=== PATIENT | male | born 1955 | race Caucasian/White ===

== ENCOUNTER 2024-06-11 15:35 | Outpatient (REF) | payer MEDICARE, SELFPAY ==
[2024-06-11 16:05] LABS: Basophils Percent Auto 0.3 % (0.2-2.0); Eosinophils Absolute Auto 0.4 10^3/uL (0.0-0.7); Eosinophils Percent Auto 3.4 % (0.9-7.0); Hemoglobin 9.8 g/dL (14.0-18.0); Immature Granulocytes Abs Auto 0.12 10^3/uL (0.00-0.03); Lymphocytes Absolute Auto 4.5 10^3/uL (1.2-3.8); Lymphocytes Percent Auto 38.7 % (20.5-60.0); Mean Corpuscular HGB Conc 31.6 g/dL (29.9-35.2); Mean Corpuscular Hemoglobin 33.6 pg (25.9-34.0); Mean Corpuscular Volume 106.2 fL (80.0-94.0); Mean Platelet Volume 8.9 fL (9.5-13.5); Monocytes Absolute Auto 1.4 10^3/uL (0.3-0.8); Monocytes Percent Auto 11.6 % (1.7-12.0); Neutrophils Absolute Auto 5.3 10^3/uL (1.4-6.5); Platelet Count 373 10^3/uL (150-450); Red Blood Count 2.92 10^6/uL (4.70-6.10); Red Cell Distribution Width 16.6 % (11.0-15.0); White Blood Count 11.7 10^3/uL (4.0-11.0)
[2024-06-11 16:12] LABS: Anion Gap 7.5; BUN Creatinine Ratio 16.3; Calcium 8.1 mg/dL (8.5-10.1); Carbon Dioxide 38.6 mmol/L (21.0-32.0); Chloride 97 mmol/L (98-107); Estimated GFR (African America >60 (>=60 mL/min/1.73m^2); Estimated GFR (Non-African Ame >60 (>=60 mL/min/1.73m^2); Glucose 82 mg/dL (74-106); Potassium 4.1 mmol/L (3.5-5.1); Sodium 139 mmol/L (136-145)
== END 2024-06-11 15:36 | disposition home or self-care (01) ==
LOC: LAB 15:35
PROVIDERS: Family Provider Family Medicine; PCP Family Medicine; Visit Provider Family Medicine
DX: D50.9 Iron deficiency anemia, unspecified (principal)
CPT/HCPCS: 36415; 80048; 85025

== ENCOUNTER 2024-06-12 10:11 | Emergency (ER) | payer MEDICARE, SELFPAY ==
[2024-06-12] VITALS (18 sets, daily range): BP systolic 98–105; BP diastolic 51–68; PULSE 75–89; TEMP 36.7; O2SAT 88–100
--- NOTE | 2024-06-12 10:13 | CT_ITS ---
The [address] [address] Patient Name: CRISTINE BURTON MRN: [id number] date: 1955 Sex: M Assigned Patient Location: ER Current Patient Location: ED.MAIN Accession/Order Number: [id number] Exam Date: 06/12/2024 10:20 Report Date: 06/12/2024 10:49 At the request of: MARIANA CAMPBELL Procedure: CT stroke head/brain wo con EXAM: CT stroke head/brain wo con HISTORY: ams COMPARISON: None. TECHNIQUE: Axial noncontrast CT imaging of the head was performed with coronal and sagittal reformats. FINDINGS: Calvarium/skull base: No evidence of acute fracture or destructive lesion. Complete opacification of the bilateral mastoid and subtotal opacification of the right middle ear. Bilateral [place] ocular lens replacements. Paranasal sinuses: Diffuse mild mucosal thickening of the paranasal sinuses. Brain: There is parenchymal hemorrhage involving the lateral right frontal lobe extending into the adjacent ceja radiata white matter with the parenchymal component of hemorrhage measuring approximately 2.4 x 2.5 x 2.5 cm with associated subarachnoid extension. There is mild surrounding edema and local mass effect. No midline shift at this time. No hydrocephalus. CT/CT stroke head/brain wo con IMPRESSION: 1. Lateral right frontal lobe parenchymal hemorrhage with associated subarachnoid extension and mild surrounding edema and local mass effect without midline shift at this time. 2. Nonspecific mastoid and middle ear effusions described above. Notification of Results Provider/Agent notified: Dr. Campbell Time/Date notified: 06/12/2024 8:48 AM [facility] Notifying Staff: Dr. Stephenson Electronically authenticated by: SHIRLEY STEPHENSON Date: 06/12/2024 10:49
--- NOTE | 2024-06-12 10:15 | XR_ITS ---
The [address] [address] Patient Name: CRISTINE BURTON MRN: [id number] date: 1955 Sex: M Assigned Patient Location: ED.MAIN Current Patient Location: ER Accession/Order Number: [id number] Exam Date: 06/12/2024 10:53 Report Date: 06/12/2024 11:32 At the request of: MARIANA CAMPBELL Procedure: XR chest 1V EXAM: XR chest 1V HISTORY: ams COMPARISON: None. TECHNIQUE: Chest one view portable upright FINDINGS: Low lung volumes with small bilateral effusions. Bibasilar atelectasis. There is cardiomegaly and probable mild vascular congestion but no shannen pulmonary edema. No consolidation or pneumothorax. XR/XR chest 1V IMPRESSION: 1. Expiratory chest with tiny bilateral effusions and vascular crowding. 2. Cardiomegaly with mild vascular congestion. No shannen pulmonary edema. Electronically authenticated by: KENNY RICH Date: 06/12/2024 11:32
--- NOTE | 2024-06-12 10:15 | ECG_ITS ---
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
[2024-06-12 10:25] LABS: Glucometer 127 mg/dL (74-106)
--- NOTE | 2024-06-12 10:39 | ED_ITS ---
HPI HPI - General Adult General Chief complaint: Weakness Stated complaint: GENERAL WEAKNESS Time Seen by Provider: 06/12/24 10:13 Source: other Source information: Nurse Omaira at the [facility] Mode of arrival: ambulance History of Present Illness HPI narrative: The patient is 68 years old male with history of A-fib as well as recent history of diagnosis of UTI and sepsis and respiratory failure, the patient was admitted to [facility] after he was recently diagnosed with UTI and respiratory failure, patient was admitted there on the plan to be discharged today, but over the last few days apparently sent the patient has been feeling sick they were doing a workup for him for possible sepsis, According to the facility that is taking care of him the patient deteriorated today and they brought him over to us. He was taking Cipro for UTI. The patient upon presentation is nonverbal he is opening his eyes looking mostly to the right side he would nod yes or no and move his right hand to express his answer by squeezing my hand, but he is not able to speak, sometimes he will make noises mostly comes as moaning . The patient upon arrival his NIH score was 21 When asking the patient and simplifying the history the patient agree that yesterday he went to sleep he did not have any of this, he was feeling weak and tired and sick but not like this, he woke up this morning and he does not know what time exactly with these symptoms, The patient also nodded that he is not on anticoagulant because he have multiple falls Related Data Home Medications ?Medication ?Instructions ?Recorded ?Confirmed albuterol sulfate 2.5 mg/3 mL mg 06/12/24 (0.083 %) solution for nebulization albuterol sulfate 90 mcg/actuation inhalation 06/12/24 aerosol inhaler aspirin 81 mg capsule 81 mg PO DAILY 06/12/24 06/12/24 bumetanide 2 mg tablet mg 06/12/24 diltiazem HCl 180 mg mg PO 06/12/24 capsule,extended release 24 hr divalproex 250 mg tablet,delayed mg PO 06/12/24 release duloxetine 30 mg capsule,delayed mg PO 06/12/24 release fluticasone 500 mcg-salmeterol 50 inhalation 06/12/24 mcg/dose blistr powdr for inhalation insulin lispro 100 unit/mL subcut 06/12/24 subcutaneous pen magnesium 200 mg tablet 400 mg PO DAILY 06/12/24 06/12/24 metoprolol succinate 25 mg mg PO 06/12/24 tablet,extended release 24 hr montelukast 10 mg tablet mg 06/12/24 nystatin 100,000 unit/mL oral 06/12/24 suspension potassium chloride 10 mEq meq PO 06/12/24 tablet,extended release(part/cryst) quetiapine 25 mg tablet mg 06/12/24 Allergies Allergy/AdvReac Type Severity Reaction Status Date / Time No Known Drug Allergies Allergy Verified 06/12/24 10:25 Opioid HPI Opioid Management Most Recent Opioid Data: No Data to Display Exam Narrative Exam Narrative: Nurses notes and vital signs reviewed and patient is not hypoxic. General: Well-appearing and in no apparent distress. Skin: Skin examination showed that the patient have multiple rash mostly papular like that is red and scattered all over the upper chest, does not seem to be acute Head: Normocephalic, atraumatic. Neck: Supple, non-tender. Eye: Pupils are equal, round and EOMI. No scleral icterus. Ears, Nose, Mouth, and Throat: TM are clear, no nasal mucosal hypertrophy. Oral mucosa is moist, no posterior oropharynx erythema, uvula is mid-line Cardiovascular: Regular Rate and Rhythm without murmur, gallop or rub. Respiratory: Bilateral distant breathing sound expiratory wheezes Back: No midline thoracic or lumbar vertebral tenderness. No CVA tenderness Musculoskeletal: normal ROM, no calf or popliteal tenderness, there is a erythema noted on the medial aspect of both legs could be secondary to irritation GI: Abdomen is soft, non-distended. Normal bowel sounds. There is a bruise I think for mostly subcutaneous injection No masses appreciated. No tenderness to palpation. No rebound, guarding, or rigidity noted. Neurological: The patient is opening his eyes when asked to speak the patient try and no words comes except for incomprehensive noises . The patient and I score is 21 with the fact that he cannot move his left upper extremity completely and his right upper extremity he can move it normally, also the left lower extremity can lifted with a drift to the bed while the right he can hold up. The patient have a obvious mild deviation to the right side when smiling, with weakness even when trying to close his eyes, the patient gazes only to the right side even when trying to look to the left he cannot except when turning his head, Constitutional Vital Signs, click to edit/add: Last Vital Signs Temp 98.0 F 06/12/24 10:58 Pulse 86 06/12/24 12:05 Resp 19 06/12/24 12:05 BP 105/51 06/12/24 12:05 Pulse Ox 97 06/12/24 11:40 O2 Del Method Nasal Cannula 06/12/24 11:16 O2 Flow Rate 2 06/12/24 11:31 Course Vital Signs Vital signs: Vital Signs Pulse Rate 84 06/12/24 10:15 Respiratory Rate 22 H 06/12/24 10:15 Blood Pressure 101/68 06/12/24 10:15 Pulse Oximetry 88 L 06/12/24 10:15 Oxygen Delivery Method Room Air 06/12/24 10:15 Temperature 98.0 F 06/12/24 10:58 Pulse Rate 86 06/12/24 12:05 Respiratory Rate 19 06/12/24 12:05 Blood Pressure 105/51 06/12/24 12:05 Pulse Oximetry 97 06/12/24 11:40 Oxygen Delivery Method Nasal Cannula 06/12/24 11:16 Oxygen Delivery Flow Rate 2 06/12/24 11:31 Medical Decision Making [facility] Narrative Medical decision making narrative: EKG showing sinus rhythm with a heart rate of [address] elevation or depression Upon arrival the patient blood sugar was 82 The patient is an obvious significant neurological weakness with NIHHS is 21 I reviewed the patient medication he does not take any anticoagulation he only take [address] head shows a subarachnoid hemorrhage, patient case was discussed with the neurologist and she accepted pt to be admitted to ICU in [facility], working on transfer Patient blood pressure is 100/60 The patient is a DNR CCA status . The patient presented to the bedside she requested initially the patient to be transferred to [facility] which I spoke with Dr. Alonso in neurology and Dr. Lechuga in neurosurgery service, who requested the patient to be transferred as he think the patient needs more higher care The patient daughter was on the phone and she works as a RN and I did speak with him about the possibility of needing surgery and they mentioned that at that time the patient can his code changes for surgery The patient CT angio head and neck ordered and pending Blood pressure is appropriate The patient ABGs on the nasal cannula shows no hypoxemia, the patient is awake he is following commands appropriately, and his Mike Coma Scale is 15 at the moment on nasal cannula and he is not having any difficulty breathing He did have a breathing treatment 1 time because he had some breathing when he arrived which is mostly secondary to COPD Patient will be transferred to [facility] awaiting transfer Lab Data Labs: Lab Results 06/12/24 06/12/24 06/12/24 Range/Units 10:17 10:30 10:53 WBC 9.6 (4.0-11.0) 10^3/uL RBC 2.81 L (4.70-6.10) 10^6/uL Hgb 9.4 L (14.0-18.0) g/dL Hct 28.7 L (42.0-54.0) % MCV 102.1 H (80.0-94.0) fL MCH 33.5 (25.9-34.0) pg MCHC 32.8 (29.9-35.2) g/dL RDW 16.4 H (11.0-15.0) % Plt Count 360 (150-450) 10^3/uL MPV 8.8 L (9.5-13.5) fL Neut % (Auto) 50.5 (43.0-75.0) % Lymph % (Auto) 34.1 (20.5-60.0) % Colbert % (Auto) 9.7 (1.7-12.0) % Eos % (Auto) 4.5 (0.9-7.0) % Baso % (Auto) 0.3 (0.2-2.0) % Neut # (Auto) 4.8 (1.4-6.5) 10^3/uL Lymph # (Auto) 3.3 (1.2-3.8) 10^3/uL Colbert # (Auto) 0.9 H (0.3-0.8) 10^3/uL Eos # (Auto) 0.4 (0.0-0.7) 10^3/uL Baso # (Auto) 0.0 (0.0-0.1) 10^3/uL Abs Immat Gran (auto) 0.09 H (0.00-0.03) 10^3/uL Imm/Tot Granulo (auto) 0.9 H (0.0-0.5) % PT 10.9 (9.0-11.6) sec INR 1.03 Puncture Site ABG pH (7.350-7.450) ABG pCO2 (35.0-45.0) mmHg ABG pO2 (80.0-100.0) mmHg ABG HCO3 (22.0-26.0) mmol/L ABG O2 Saturation % ABG Base Excess (-2.0-2.0) mmol/L Tae Test (POSITIVE) O2 Liters/Min Sodium 139 (136-145) mmol/L Potassium 3.4 L (3.5-5.1) mmol/L Chloride 97 L (98-107) mmol/L Carbon Dioxide 36.8 H (21.0-32.0) mmol/L Anion Gap 8.6 BUN 21.0 H (7.0-18.0) mg/dL Creatinine 1.03 (0.70-1.30) mg/dL Est GFR ( Amer) >60 (>=60 mL/min/1.73m^2) Est GFR (Non-Af Amer) >60 (>=60 mL/min/1.73m^2) BUN/Creatinine Ratio 20.4 Glucose 95 (74-106) mg/dL Lactate 0.9 (0.4-2.0) mmol/L Calcium 8.2 L (8.5-10.1) mg/dL Magnesium 1.9 (1.8-2.4) mg/dL Total Bilirubin 0.7 (0.2-1.0) mg/dL AST 21 (15-37) U/L ALT 17 (16-63) U/L Alkaline Phosphatase 86 (46-116) U/L Troponin I High Sens 14.7 (4.0-76.1) pg/mL Total Protein 5.7 L (6.4-8.2) g/dL Albumin 2.0 L (3.4-5.0) g/dL Globulin 3.7 g/dL Albumin/Globulin Ratio 0.5 Urine Color Yellow (YELLOW) Urine Clarity Clear (CLEAR) Urine pH 5.5 (5.0-9.0) Ur Specific [place] 1.025 (1.005-1.025) Urine Protein Negative (NEG/TRACE) mg/dL Urine Glucose (UA) Negative (NEGATIVE) mg/dL Urine Ketones Trace A (NEGATIVE) mg/dL Urine Occult Blood Negative (NEGATIVE) Urine Nitrite Negative (NEGATIVE) Urine Bilirubin Negative (NEGATIVE) Urine Urobilinogen 1.0 (0.2-1.0) EU/dL Ur Leukocyte Esterase Negative (NEGATIVE) Ethanol Quant <3 mg/dL POC Glucose 127 H (74-106) mg/dL 06/12/24 Range/Units 11:10 WBC (4.0-11.0) 10^3/uL RBC (4.70-6.10) 10^6/uL Hgb (14.0-18.0) g/dL Hct (42.0-54.0) % MCV (80.0-94.0) fL MCH (25.9-34.0) pg MCHC (29.9-35.2) g/dL RDW (11.0-15.0) % Plt Count (150-450) 10^3/uL MPV (9.5-13.5) fL Neut % (Auto) (43.0-75.0) % Lymph % (Auto) (20.5-60.0) % Colbert % (Auto) (1.7-12.0) % Eos % (Auto) (0.9-7.0) % Baso % (Auto) (0.2-2.0) % Neut # (Auto) (1.4-6.5) 10^3/uL Lymph # (Auto) (1.2-3.8) 10^3/uL Colbert # (Auto) (0.3-0.8) 10^3/uL Eos # (Auto) (0.0-0.7) 10^3/uL Baso # (Auto) (0.0-0.1) 10^3/uL Abs Immat Gran (auto) (0.00-0.03) 10^3/uL Imm/Tot Granulo (auto) (0.0-0.5) % PT (9.0-11.6) sec INR Puncture Site R. rad ABG pH 7.485 H (7.350-7.450) ABG pCO2 49.9 H (35.0-45.0) mmHg ABG pO2 91.4 (80.0-100.0) mmHg ABG HCO3 37.6 H (22.0-26.0) mmol/L ABG O2 Saturation 96.0 % ABG Base Excess 14.2 H (-2.0-2.0) mmol/L Tae Test Positive (POSITIVE) O2 Liters/Min 2 Sodium (136-145) mmol/L Potassium (3.5-5.1) mmol/L Chloride (98-107) mmol/L Carbon Dioxide (21.0-32.0) mmol/L Anion Gap BUN (7.0-18.0) mg/dL Creatinine (0.70-1.30) mg/dL Est GFR ( Amer) (>=60 mL/min/1.73m^2) Est GFR (Non-Af Amer) (>=60 mL/min/1.73m^2) BUN/Creatinine Ratio Glucose (74-106) mg/dL Lactate (0.4-2.0) mmol/L Calcium (8.5-10.1) mg/dL Magnesium (1.8-2.4) mg/dL Total Bilirubin (0.2-1.0) mg/dL AST (15-37) U/L ALT (16-63) U/L Alkaline Phosphatase (46-116) U/L Troponin I High Sens (4.0-76.1) pg/mL Total Protein (6.4-8.2) g/dL Albumin (3.4-5.0) g/dL Globulin g/dL Albumin/Globulin Ratio Urine Color (YELLOW) Urine Clarity (CLEAR) Urine pH (5.0-9.0) Ur Specific [place] (1.005-1.025) Urine Protein (NEG/TRACE) mg/dL Urine Glucose (UA) (NEGATIVE) mg/dL Urine Ketones (NEGATIVE) mg/dL Urine Occult Blood (NEGATIVE) Urine Nitrite (NEGATIVE) Urine Bilirubin (NEGATIVE) Urine Urobilinogen (0.2-1.0) EU/dL Ur Leukocyte Esterase (NEGATIVE) Ethanol Quant mg/dL POC Glucose (74-106) mg/dL Discharge Plan Discharge Chief Complaint: Weakness Clinical Impression: Subarachnoid hemorrhage, Hemorrhagic stroke Patient Disposition: [facility] Time of Disposition Decision: 11:04
[2024-06-12 10:40] LABS: Basophils Percent Auto 0.3 % (0.2-2.0); Eosinophils Absolute Auto 0.4 10^3/uL (0.0-0.7); Eosinophils Percent Auto 4.5 % (0.9-7.0); Hematocrit 28.7 % (42.0-54.0); Hemoglobin 9.4 g/dL (14.0-18.0); Immature Granulocytes Abs Auto 0.09 10^3/uL (0.00-0.03); Immature Granulocytes Pct Auto 0.9 % (0.0-0.5); Lymphocytes Absolute Auto 3.3 10^3/uL (1.2-3.8); Lymphocytes Percent Auto 34.1 % (20.5-60.0); Mean Corpuscular HGB Conc 32.8 g/dL (29.9-35.2); Mean Corpuscular Hemoglobin 33.5 pg (25.9-34.0); Mean Corpuscular Volume 102.1 fL (80.0-94.0); Mean Platelet Volume 8.8 fL (9.5-13.5); Monocytes Absolute Auto 0.9 10^3/uL (0.3-0.8); Monocytes Percent Auto 9.7 % (1.7-12.0); Neutrophils Absolute Auto 4.8 10^3/uL (1.4-6.5); Neutrophils Percent Auto 50.5 % (43.0-75.0); Platelet Count 360 10^3/uL (150-450); Red Blood Count 2.81 10^6/uL (4.70-6.10); Red Cell Distribution Width 16.4 % (11.0-15.0); White Blood Count 9.6 10^3/uL (4.0-11.0)
--- OUTSIDE RECORDS SUMMARY | 2024-06-12 10:46 | XMS_ITS | CCD ---
Author Organization [facility] Care Team Providers Care Civil Laboratory Technician Name Role Phone Tatiana BENSON Primary Care Physician DO Ambika Benson Primary Care Provider VIRGIL Lazar Attending Provider DO Ambika Benson Primary Care Provider DO Ambika Benson Attending Provider VIRGIL Lazar Attending Provider [phone] VIRGIL Basilio Attending Provider Harry Mckinney Unavailable Elenita Lazar Attending Unavailable VIRGIL Lazar Admitting UnavailTatiana Boyce Referring Unavailable MD Mark Boateng Admitting Unavailable Mark Boateng Attending Unavailable Mark Boateng Referring Unavailable Mark Boateng Attending Unavailable Mark Boateng Referring Unavailable MD Mark Boateng Admitting Unavailable Mark Boateng Attending Unavailable Mark Boateng Referring Unavailable Mark Boateng Admitting Unavailable Mark Boateng Referring Unavailable Mark Boateng Attending Unavailable MD Mark Boateng Admitting Unavailable Souleymane Lazaranda Admitting Unavailable KELLEY G CECI Referring Unavailable Elenita Lazar Attending Unavailable VIRGIL Lazar Admitting Unavailabl e KELLEY G CECI Referring Unavailable Souleymane Lazaranda Attending Unavailable Souleymane Lazaranda Admitting Unavailable KELLEY G CECI Referring Unavailable Elenita Lazar Attending Unavailable Elenita Lazar Admitting Unavailable Tatiana BENSON Referring Unavailable Elenita Lazar Attending Unavailable Elenita Lazar Attending Unavailable VIRGIL Lazar Admitting Unavailabl e KAMAGANAN, G CECI Referring Unavailable Elenita Lazar Attending Unavailable VIRGIL Lazar Admitting Unavailjose e de la o Tatiana BENSON Referring Unavailable NEWTON Parker Attending Provider Lisa Benson DO Primary Care Provider Lisa Benson DO R Unavailable JolantaLisa mckenzie DO Primary Care Provider DO Ambika Benson Primary Care Provider [phone] DO Lavern Dahl Attending Provider NURYS Peña Attending Provider NURYS Banks Emergency Provider [phone] [facility] De La O Emergency Provider [phone] DO Ambika Benson Primary Care Provider [phone] DO Soto Simmons Emergency Provider [phone] MD Conor John Admit Provider [phone] MD Dc De La Rosa Attending Provider [phone] MD Skyler Sanchez Attending Provider DO Ralf White Emergency Provider [phone] Lisa Benson DO R Unavailable Lisa Benson DO R Unavailable Leni Serrano LPN Unavailable Kelley Lowe DO, George Robert Primary Care Provi heather JIMMY CASTLE Attending Unavailab LISA Avelar JR Primary Care Unavail able Lisa Benson DO R Unavailable JESSCIA PARKER Attending Unavailable LISA BENSON R Referring Unavailable CHRISTEL DE DIOS Attending Unavailable LISA BENSON Referring Unavailable JESSICA PARKER Attending Unavailable CHRISTEL DE DIOS Attending Unavailable DIDCHRISTEL BLAIR Attending Unavailable JESSICA PARKER Attending Unavailable CHRISTEL DE DIOS Attending Unavailable JESSICA PARKER Attending Unavailable LIEBENTHAL, JESSICA S Attending Unavailable DIDION, CHRISTEL Flores Attending Unavailable LIEBENTHAL, JESSICA S Attending Unavailable LUBY, HILDA Campos Attending Unavailable DIDION, CHRISTEL Flores Attending Unavailable LIEBENTHAL, JESSICA S Attending Unavailable HESHAMLAVERN Attending Unavailable DENBESTENRAFAEL Attending Unavailable HESHAM, LAVERN Referring Unavailable LIEBENTHAL, JESSICA S Attending Unavailable DIDION, CHRISTEL Flores Attending Unavailable GILLMOLAURA Leblanc Attending Unavailable KAFTAN, LISA R Attending Unavailable LIEBENTHAL, JESSICA S Attending Unavailable LUBY, HILDA L Attending Unavailable KAFTAN, LISA R Attending Unavailable LIEBENTHAL, JESSICA S Attending Unavailable KAFTAN, LISA R Attending Unavailable KAFTAN, LISA R Referring Unavailable CHERELLE RODRIGUEZ Attending Unavailable KAFTAN, LISA R Attending Unavailable KAFTAN, LISA R Referring Unavailable BASILIO, KOKI M Attending Unavailable KAFTAN, LISA R Referring Unavailable KAFTAN, LISA R Attending Unavailable KAFTAN, LISA R Referring Unavailable KAFTAN, LISA R Referring Unavailable KAFTAN, LISA R Attending Unavailable KAFTAN, LISA R Referring Unavailable BASILIOKOKI Attending Unavailable KAFTAN, LISA R Attending Unavailable KAFTAN, LISA R Attending Unavailable KAFTAN, LISA R Attending Unavailable KAFTAN, LISA R Referring Unavailable Kaftan Ambika SPRINGER Primary Care Provider [phone] Ralf White DO Emergency Provider [phone] Skyler Sanchez MD Admit Provider Shira Nath MD Attending Provider [phone] Moris Younger MD Other Provider Jesus Fraser DO Other Provider Jimmy Gonzalez DO Other Provider Jesus Ribeiro DO Other Provider Conor John Admitting Unavailable Skyler Sanchez Attending Unavailable Ambika Benson Primary Care Unavailable Ralf White Admitting Unavailable Ralf White Attending Unavailable Ambika Benson Primary Care Unavailable Ramon Banks Admitting Unavailable Ramon Banks Attending Unavailable Ambika Benson Primary Care Unavailable Carolina Araya Admitting Unavailable Bullrichieore, Carolina E Attending Unavailable Ambika Benson Primary Care Unavailable Lavern Dahl Attending Unavailable Ambika Benson Primary Care Unavailable Lavern Dahl Admitting Unavailable Melissa Peña Admitting Unavailable Melissa Peña Attending Unavailable Ambika Benson Primary Care Unavailable Moris Younger Consulting Unavailable Skyler Sanchez Admitting Unavailable Ambika Benson Primary Care Unavailable Shira Nath Attending Unavailable Jesus Fraser Consulting Unavailable Jimmy Gonzalez Consulting UnavailJesus Castro Unavailable Allergies Allergy Classification Reported Allergen(s) Allergy Type Date of Onset Reaction(s) Facility (16 sources) barley extract; Translations: [Hordeum (organism)] Drug Allergy 4 Unknown [facility] (20 sources) Morphine; Translations: [morphine] Drug Allergy 3 Unknown [facility] (16 sources) rye allergenic extract; Translations: [[place]] Drug Allergy 4 Unknown [facility] (20 sources) Wheat preparation; Translations: [Wheat] Drug Allergy 4 Unknown [facility] (20 sources) Gluten Drug allergy [address] (20 sources) oxyMORphone Drug Allergy 3 Nausea Only [facility] (20 sources) Ramon grass pollen allergen Drug Allergy 4 Unknown [facility] (7 sources) WHEAT DEXTRIN Drug Allergy 4 Unknown [facility] (20 sources) Barley Grass Allergy to substance 4 Unknown [facility] Work Phone: (7 sources) Morphine And Related Drug Intolerance 5 Unknown [facility] (20 sources) Morphine And Codeine Drug Intolerance 5 Unknown [facility] (2 sources) Gluten Flour; Translations: [GLUTEN FLOUR] Food Allergy 3 Diarrhea [facility] (1 source) Gluten Drug allergy (disorder) 4 [facility] Repository Medications Current Medications Medication Drug Class(es) Dates Sig (Normalized) Sig (Original) acetaminophen 325 mg oral tablet (2 sources) Start: 05-23-2024 take 1-5 tablets by mouth every six hours as needed for pain Acetaminophen (Tylenol) 325 mg Tablet Active 650 MG PO Q6H as needed for Pain 1-5 or fever 0 May 23, 2024 12:00am acetaminophen 250 mg / aspirin 250 mg / caffeine 65 mg oral tablet (1 source) Platelet Aggregation Inhibitor, Nonsteroidal Anti-inflammatory Drug, Central Nervous System Stimulant, Methylxanthine take 2 tablets by mouth every twenty-four hours acetaminophen 325 mg / butalbital 50 mg / caffeine 40 mg oral tablet (12 sources) Barbiturate, Central Nervous System Stimulant, Methylxanthine Start: 2017 take 1 tablet by mouth once as needed acetaminophen 325 mg-caffeine 40 mg-butalbital 50 mg (FIORICET) per tablet Take 1 tablet by mouth as needed. 0 06/25/2017 Active Start: 02-11-2017 End: 12-27-2023 Zhkgzvzywo-Zwrdybfqlhpyl-Nde f 50-325-40 mg Tablet Discontinued TABLET February 10, 2017 11:00pm December 27, 2023 8:50am acyclovir 800 mg oral tablet (7 sources) Herpesvirus Nucleoside Analog DNA Polymerase Inhibitor, Herpes Simplex Virus Nucleoside Analog DNA Polymerase Inhibitor, Herpes Zoster Virus Nucleoside Analog DNA Polymerase Inhibitor Start: 04-20-2024 End: 04-30-2024 take 1 tablet by mouth in the morning, then take 1 tablet by mouth in the evening, then take 1 tablet by mouth at bedtime acyclovir (Zovirax) 800 MG tablet Indications: Oral aphthae Take 1 tablet (800 mg) by mouth in the morning and 1 tablet (800 mg) in the evening and 1 tablet (800 mg) before bedtime. Do all this for 10 days. 30 tablet 04/20/2024 04/30/2024 Active [id number] 200 actuat albuterol 0.09 mg/actuat metered dose inhaler (20 sources) beta2-Adrenergic Agonist Start: 10-28-2023 take 2 puff(s) by mouth every four hours albuterol HFA 90 mcg/act inhaler Indications: Mild intermittent asthma without status asthmaticus without complication (CMS/HCC) INHALE 2 PUFFS BY MOUTH AND INTO THE LUNGS EVERY 4 HOURS 8.5 g 3 02/22/2024 Active Start: 03-31-2023 take 2 puff(s) by mo uth every four hours albuterol HFA 90 mcg/act inhaler Indications: Mild intermittent asthma without status asthmaticus without complication ([facility]) inhale 2 puffs by mouth and INTO THE LUNGS every 4 hours 8.5 g 3 03/31/2023 Active Start: 02-11-2017 take 2.5 mg by inhal ation every two hours as needed for wheezing Albuterol Sulfate 2.5 mg /3 mL (0.083 %) Solution For Nebulization Active 2.5 MG INHALATION Q2H as needed for shortness of breath or wheezing February 10, 2017 11:00pm Start: 02-11-2017 Albuterol Sulf ate (Proventil Hfa) 90 mcg/actuation Hfa Aerosol Inhaler Active February 11, 2017 12:00am Start: 10-31-2014 take 1 puff(s) by in halation twice daily for wheezing Pro-Air HFA CFC free 90 mcg/inh MDI 1 puff(s), Inhalation, BID for wheezing, 8.5 gram, Refill(s) 0 Start Date: 10/31/14 Status: Ordered take 1 puff(s) by in halation twice daily albuterol HFA (PROVENTIL HFA, VENTOLIN HFA) 90 mcg/actuation inhaler Inhale 1 Puff as instructed twice daily. Active Albuterol 90 MCG/ACT (1 source) Albuterol Sulfate (Proventil Hfa) 90 mcg/actuation Hfa Aerosol Inhaler (3 sources) Start: 02-11-2017 take 1 puff(s) by inhalation every two hours as needed for wheezing Albuterol Sulfate (Proventil Hfa) 90 mcg/actuation Hfa Aerosol Inhaler Active 2 PUFF INHALATION Q2H as needed for shortness of breath or wheezing February 10, 2017 11:00pm Start: 02-11-2017 take 1 puff(s) by in halation every two hours Albuterol Sulfate (Proventil Hfa) 90 mcg/actuation Hfa Aerosol Inhaler Active 2 PUFF INHALATION Q2H February 11, 2017 12:00am aspirin 81 mg delayed release oral tablet (2 sources) Platelet Aggregation Inhibitor, Nonsteroidal Anti-inflammatory Drug Start: 05-23-2024 take 1 tablet by mouth once daily Aspirin 81 mg Tablet,Delayed Release (Dr/Ec) Active 81 MG PO Daily 0 May 23, 2024 12:00am take 1 tablet by mouth every twe nty-four hours Aspirin / butalbital / Caffeine (3 sources) Start: 09-10-2015 take 2 capsules by mouth every six hours for pain Fiorinal 325 mg-50 mg-40 mg Cap 2 cap(s), Oral, q6hr for pain, Refill(s) 0 Start Date: 09/10/15 Status: Ordered aspirin 325 mg / butalbital 50 mg / caffeine 40 mg oral capsule (10 sources) Platelet Aggregation Inhibitor, Barbiturate, Nonsteroidal Anti-inflammatory Drug, Central Nervous System Stimulant, Methylxanthine Start: 09-10-2015 take 2 capsules by mouth every six hours for pain Fiorinal 325 mg-50 mg-40 mg Cap 2 cap(s), Oral, q6hr for pain, Refill(s) 0 Start Date: 09/10/15 Status: Ordered atenolol 25 mg oral tablet (20 sources) beta-Adrenergic David Start: 09-10-2015 End: 05-23-2024 take 1 tablet by mouth once daily atenolol (Tenormin) 25 MG tablet Indications: Essential hypertension (CMS/HCC) Take 1 tablet (25 mg) by mouth Daily 90 tablet 3 02/29/2024 Active benzonatate 200 mg oral capsule (3 sources) Non-narcotic Antitussive Start: 01-14-2019 End: 06-30-2023 take 1 capsule by mouth three times daily as needed for cough benzonatate (Tessalon) 200 MG capsule Indications: COVID-19 Take 1 capsule (200 mg) by mouth 3 (three) times a day as needed for cough for up to 7 days Do not crush or chew. 20 capsule 0 06/23/2023 06/30/2023 Active bisacodyl 10 mg rectal suppository (1 source) Stimulant Laxative Start: 05-23-2024 Bisacodyl 10 mg Suppository Active 10 MG RI Daily as needed for Constipation 0 May 23, 2024 12:00am bumetanide 1 mg oral tablet (1 source) Loop Diuretic Start: 05-23-2024 take 1 tablet by mouth once daily Bumetanide 1 mg Tablet Active 1 MG PO DAILY@0800 0 May 23, 2024 12:00am caffeine 200 mg oral tablet (1 source) Central Nervous System Stimulant, Methylxanthine take 1 tablet by mouth every four hours Calcium (1 source) Phosphate Binder, Calcium Calcium Carb-Cholecalcife rol (CALCIUM + D3 PO) (20 sources) Calcium Carb-Cholecalcifer ol (CALCIUM + D3 PO) Take by mouth Active Calcium Carb-Cho lecalciferol (CALCIUM + D3 PO) Take by mouth 0 Active calcium carbonate 600 mg oral capsule (1 source) take 600 mg by mouth once daily CALCIUM CARBONATE (CALCIUM 600 ORAL) Take 600 mg by mouth once daily. Active calcium carbonate 625 mg / cholecalciferol 125 unt oral tablet (3 sources) Vitamin D Start: 7 take 1 tablet by mouth twice daily Oyster-D oral tablet 1 tab(s), Oral, BID, Refill(s) 0 Start Date: 08/22/16 Status: Ordered celecoxib 200 mg oral capsule (20 sources) Nonsteroidal Anti-inflammatory Drug Start: 9 take 100 mg by mouth once daily Celebrex 100 mg, Oral, Daily, Refills(s) 0 Start Date: 10/06/18 Status: Ordered Start: 07-16-2017 End: 05-23-2024 celecoxib (CeleBREX) 200 MG capsule Indications: Other chronic pain TAKE 1 CAPSULE ONE TIME DAILY WITH FOOD 90 capsule 1 11/09/2023 Active cyclobenzaprine hydrochloride 10 mg oral tablet (20 sources) Muscle Relaxant Start: 12-11-2023 End: 03-31-2024 take 1 tablet by mouth three times daily as needed for muscle spasms cyclobenzaprine (Flexeril) 10 MG tablet Indications: Other chronic pain Take 1 tablet (10 mg) by mouth 3 (three) times a day as needed for muscle spasms 03/31/2024 Active Start: 02-11-2017 End: 05-23-2024 take 1 tablet by mouth three times daily as needed for muscle spasms cyclobenzaprine 10 mg Tab 10 mg = 1 tab(s), Oral, TID, PRN for spasm, X 90 day(s), # 270 tab(s), Refills(s) 0, [facility]acy: [id number], 162, cm, 10/21/22 8:00:00 EDT, Height/Length Dosing, 98, kg, 05/17/23 13:53:00 EDT, Weight Dosing Start Date: 11/03/22 Stop Date: 02/01/23 Status: Ordered Start: 02-11-2017 take 10 mg by mouth once daily Cyclobenzaprine Active 10 MG PO Daily February 11, 2017 12:00am Start: 03-11-2013 take 1 tablet by lesley th every eight hours as needed cyclobenzaprine (FLEXERIL) 10 mg tablet Take 1 tablet by mouth every 8 hours as needed. FOR PAIN OR SPASMS 0 03/11/2013 Active 24 hr dilTIAZem hydrochloride 180 mg extended release oral capsule (1 source) Calcium Channel David Start: 05-23-2024 take 1 capsule by mouth once daily Diltiazem Hcl 180 mg Capsule,Extended Release 24hr Active 180 MG PO Daily 0 May 23, 2024 12:00am doxepin hydrochloride 10 mg oral capsule (20 sources) Tricyclic Antidepressant Start: 10-28-2023 End: 05-23-2024 take 1 capsule by mouth at bedtime Doxepin 25 mg capsule Discontinued 25 MG PO Bedtime December 26, 2023 11:00pm May 23, 2024 12:54pm Start: 01-12-2019 take 1 capsule by mo ut at bedtime doxepin (SINEquan) 10 MG capsule Take 10 mg by mouth at bedtime 01/17/2024 Active DULoxetine 60 mg delayed release oral capsule (20 sources) Serotonin and Norepinephrine Reuptake Inhibitor Start: 05-23-2024 take 1 capsule by mouth once daily Duloxetine 60 mg Capsule,Delayed Release(Dr/Ec) Active 60 MG PO Daily 0 May 23, 2024 12:00am Start: 10-28-2023 End: 05-23-2024 take 1 capsule by mouth in the morning DULoxetine (Cymbalta) [address] capsule Indications: Anxiety and depression (CMS/HCC) Take 1 capsule (30 mg) by mouth in the morning and 1 capsule (30 mg) before bedtime. 10/28/2023 Active Start: 02-09-2023 take 1 capsule by mo uth in the morning DULoxetine (Cymbalta) [address] capsule Take 30 mg by mouth in the morning and 30 mg before bedtime. 0 02/09/2023 Active Elderberry preparation (8 sources) ELDERBERRY PO Ta ke by mouth 0 Active Fish Oils (1 source) fluticasone propionate 0.05 mg/actuat metered dose nasal spray (1 source) Corticosteroid 60 actuat fluticasone propionate 0.5 mg/actuat / salmeterol 0.05 mg/actuat dry powder inhaler (20 sources) Corticosteroid, beta2-Adrenergic Agonist Start: 10-07-19 take 1 puff(s) by inhalation at bedtime Fluticasone-Salmete rol 500-50 MCG/ACT aerosol powder Indications: Mild intermittent asthma without status asthmaticus without complication (CMS/HCC) INHALE 1 PUFF IN THE MORNING AND BEFORE BEDTIME 180 each 1 10/07/2023 Active Start: 02-11-2017 Fluticasone Pr opion-Salmeterol 500-50 mcg/dose blister with device Active 1 INH INHALATION Twice daily February 10, 2017 11:00pm Start: 02-11-2017 Fluticasone Pr opion-Salmeterol Active 1 INH INHALATION Twice daily February 11, 2017 12:00am Start: 02-11-2017 Fluticasone Pr opion-Salmeterol (Advair Diskus) 500-50 mcg/dose blister with device Active February 10, 2017 11:00pm Start: 02-11-2017 Fluticasone Pr opion-Salmeterol (Advair Diskus) 500-50 mcg/dose blister with device Active February 11, 2017 12:00am Start: 03-09-2013 take 2 puff(s) by in halation twice daily Advair 500 mcg-50 mcg Powder 2 puff(s), Inhalation, BID, Refill(s) 0 Start Date: 03/09/13 Status: Ordered take 1 puff(s) by in halation in the morning fluticasone-salmeterol (Advair Diskus) 500-50 MCG/DOSE diskus inhaler Inhale 1 puff in the morning and 1 puff before bedtime. 0 Active 60 actuat formoterol fumarate 0.005 mg/actuat / mometasone furoate 0.2 mg/actuat metered dose inhaler (1 source) Corticosteroid, beta2-Adrenergic Agonist Start: 05-18-2018 DULERA 200-5 mcg/actuation inhaler 0 05/18/2018 Active front wheeled walker (13 sources) Start: 01-11-2021 front wheeled walker front wheeled walker, See Instructions, 1 EA, 0, front wheeled walker to be used for stablility Length of need: 99, Supply Start Date: 01/11/21 Status: Ordered gabapentin 300 mg oral capsule (15 sources) Anti-epileptic Agent Start: 11-10-2022 End: 02-08-2023 take 2 capsules by mouth three times daily gabapentin 300 mg Cap 600 mg = 2 cap(s), Oral, TID, X 30 day(s), # 180 cap(s), Refills(s) 2, Pharmacy: [facility] #[id number], 162, cm, 10/21/22 8:00:00 EDT, Height/Length Dosing, 98, kg, 09/24/22 13:53:00 EDT, Weight Dosing Start Date: 11/10/22 Stop Date: 02/08/23 Status: Ordered Start: 07-21-2022 End: 08-20-2022 take 1 capsule by mouth four times daily gabapentin 300 mg Cap 300 mg = 1 cap(s), Oral, QID, X 30 day(s), # 120 cap(s), Refills(s) 0, Pharmacy: [facility] #[id number], 162, cm, 07/01/22 12:20:00 EST, Height/Length Dosing, 99, kg, 05/28/22 10:35:00 EST, Weight Dosing Start Date: 07/21/22 Stop Date: 08/20/22 Status: Ordered Start: 06-09-2022 End: 07-09-2022 take 1 capsule by mouth four times daily gabapentin 300 mg Cap 300 mg = 1 cap(s), Oral, QID, X 30 day(s), # 120 cap(s), Refills(s) 0, Pharmacy: [facility] #[id number], 162, cm, 05/28/22 10:35:00 EST, Height/Length Dosing, 99, kg, 05/28/22 10:35:00 EST, Weight Dosing Start Date: 06/09/22 Stop Date: 07/09/22 Status: Ordered Start: 11-27-2021 End: 05-19-2022 take 1 capsule by mouth four times daily gabapentin 300 mg Cap 300 mg = 1 cap(s), Oral, QID, X 30 day(s), # 120 cap(s), Refills(s) 1, [facility]: [id number], 162, cm, 03/07/22 14:25:00 EDT, Height/Length Dosing, 97.5, kg, 03/07/22 14:25:00 EDT, Weight Dosing Start Date: 03/20/22 Stop Date: 05/19/22 Status: Ordered Start: 09-25-2021 End: 11-24-2021 take 1 capsule by mouth four times daily gabapentin 300 mg Cap 300 mg = 1 cap(s), Oral, QID, X 30 day(s), # 120 cap(s), Refills(s) 1, Pharmacy: [facility], 162, cm, 09/25/21 13:15:00 EDT, Height/Length Dosing, 107, kg, 09/25/21 13:15:00 EDT, Weight Dosing Start Date: 09/25/21 Stop Date: 11/24/21 Status: Ordered Start: 01-14-2019 End: 03-18-2024 take 1 capsule by mouth three times daily gabapentin 300 mg Cap 300 mg = 1 cap(s), Oral, TID, X 90 day(s), # 270 cap(s), Refills(s) 0, [facility]: [facility], 162, cm, 05/17/21 9:33:00 EST, Height/Length Dosing, 105, kg, 05/17/21 9:33:00 EST, Weight Dosing Start Date: 07/09/21 Stop Date: 10/07/21 Status: Ordered ibuprofen 200 mg oral tablet (8 sources) Nonsteroidal Anti-inflammatory Drug Start: 02-05-2022 take 2 tablets by mouth every four hours as needed for pain ibuprofen 200 mg Tab 400 mg = 2 tab(s), Oral, q4hr, PRN for pain, # 120 tab(s), Refills(s) 0 Start Date: 02/05/22 Status: Ordered Insulin Aspart U-100 100 unit/mL (3 mL) Insulin Pen (1 source) Start: 05-23-2024 Insulin Aspart U-100 100 unit/mL (3 mL) Insulin Pen Active 0 UNIT SUBCUT 3X/Day with meals and bedtime 0 May 13th, 2025 12:00am Please contact the information source for Protocol details. 3 ml insulin isophane, human 100 unt/ml pen injector (1 source) Start: 05-23-2024 Insulin Nph Isoph U-100 Human (Humulin N Nph Insulin Kwikpen) 100 unit/mL (3 mL) Insulin Pen Active 12 UNIT SUBCUT Twice daily May 23, 2024 12:00am levoFLOXacin 500 mg oral tablet (1 source) Quinolone Antimicrobial Start: 01-14-2019 take 1 tablet by mouth once daily levoFLOXacin (LEVAQUIN) 500 mg tablet Take 500 mg by mouth once daily. 0 01/14/2019 Active magnesium oxide 400 mg oral tablet (1 source) Start: 05-23-2024 take 1 tablet by mouth twice daily Magnesium Oxide 400 mg (241.3 mg magnesium) Tablet Active 400 MG PO Twice daily 0 May 23, 2024 12:00am meclizine hydrochloride 25 mg oral tablet (20 sources) Antiemetic Start: 04-29-2024 take 1 tablet by mouth three times daily as needed for dizziness meclizine (Antivert) 25 MG tablet Indications: Vertigo Take 1 tablet (25 mg) by mouth 3 (three) times a day as needed for dizziness 90 tablet 1 04/29/2024 Active Start: 04-29-2024 take 1 tablet by elsley th three times daily as needed for dizziness meclizine (Antivert) 25 MG tablet Indications: Vertigo Take 1 tablet (25 mg) by mouth 3 (three) times a day as needed for dizziness 90 tablet 1 04/29/2024 Active Start: 12-27-2023 End: 05-23-2024 take 1 tablet by mouth three times daily as needed for dizziness meclizine (Antivert) 25 MG tablet Indications: Vertigo TAKE 1 TABLET BY MOUTH 3 TIMES A DAY NEEDED FOR DIZZINESS 90 tablet 1 04/20/2024 04/29/2024 Discontinued (Reorder) 24 hr metoprolol succinate 50 mg extended release oral tablet (1 source) beta-Adrenergic David Start: 05-23-2024 Metoprolol Succinate 50 mg Tablet Extended Release 24 Hr Active 37.5 MG PO Twice daily May 23, 2024 12:00am montelukast 10 mg oral tablet (20 sources) Leukotriene Receptor Antagonist Start: 02-11-2017 take 1 tablet by mouth at bedtime montelukast (Singulair) 10 MG tablet Indications: Allergic rhinitis, unspecified seasonality, unspecified trigger Take 1 tablet (10 mg) by mouth at bedtime 90 tablet 3 07/17/2023 Active Multi Vitamins oral tablet (7 sources) Start: 03-07-2022 take 1 tablet by mouth once daily Multi Vitamins oral tablet 1 tab(s), Oral, Daily, Refill(s) 0 Start Date: 03/07/22 Status: Ordered Multiple Vitamin (multivitamin) tablet (20 sources) take 1 tablet by mouth in the morning Multiple Vitamin (multivitamin) tablet Take 1 tablet by mouth in the morning. Active take 1 tablet by mouth in the mo rning Multiple Vitamin (multivitamin) tablet Take 1 tablet by mouth in the morning. 0 Active multivitamin with minerals (MULTIPLE VITAMIN-MINERALS) tablet (1 source) take 1 tablet by mouth once daily in the morning multivitamin with minerals (MULTIPLE VITAMIN-MINERALS) tablet Take 1 tablet by mouth every morning. Active Multivitamin, Therapeutic w/ Minerals (13 sources) Start: 2016 Multivitamin, Therapeutic w/ Minerals 1 tab(s), Oral, Daily, 30 tab(s), Refill(s) 0 Start Date: 08/22/16 Status: Ordered Multivitamins (1 source) mupirocin 0.02 mg/mg topical ointment (7 sources) RNA Synthetase Inhibitor Antibacterial Start: 2023 End: 2023 mupirocin (Bactroban) 2 % ointment apply 1 APPLICATION topically twice a day for 10 days 07/30/2023 02/03/2024 Discontinued Nirmatrelvir&Ritonavir 300/100 (Paxlovid, 300/100,) 20 x 150 MG & 10 x 100MG tablet therapy pack (2 sources) Start: 2023 Nirmatrelvir&Ritonavir 300/100 (Paxlovid, 300/100,) 20 x 150 MG & 10 x 100MG tablet therapy pack Indications: COVID-19 Take 1 Dose pack by mouth See administration instructions 1 each 0 06/23/2023 Active nystatin 244227 unt/ml oral suspension (17 sources) Polyene Antifungal Start: 2023 End: 2023 nystatin (Mycostatin) [id number] UNIT/ML suspension Indications: Thrush, oral Take 5 mL (500,000 Units) by mouth in the morning and 5 mL (500,000 Units) at noon and 5 mL (500,000 Units) in the evening and 5 mL (500,000 Units) before bedtime. Do all this for 10 days. 200 mL 04/20/2024 04/30/2024 Active Start: 02-16-2024 End: 03-01-2024 nystatin (Mycostatin) [id number] UNIT/ML suspension Indications: Thrush Take 5 mL (500,000 Units) by mouth in the morning and 5 mL (500,000 Units) at noon and 5 mL (500,000 Units) in the evening and 5 mL (500,000 Units) before bedtime. Do all this for 10 days. Swish and swallow. 200 mL 02/16/2024 03/01/2024 Discontinued Start: 12-29-2023 take 139008 [IU] by mouth four times daily Nystatin 100,000 unit/mL suspension Active 253014 UNIT PO Four times daily December 28, 2023 11:00pm swish in the mouth and retain for as long as possible (several minutes) before swallowing Start: 12-25-2023 End: 01-04-2024 nystatin (Mycostatin) [id number] UNIT/ML suspension Indications: Oral thrush Take 5 mL (500,000 Units) by mouth in the morning and 5 mL (500,000 Units) at noon and 5 mL (500,000 Units) in the evening and 5 mL (500,000 Units) before bedtime. Do all this for 10 days. Swish in mouth and spit out.. 200 mL 12/25/2023 01/04/2024 Active End: 01-04-2024 nystatin (Mycostatin) [id number] UNIT/ML suspension Take 400,000 Units by mouth in the morning and 400,000 Units at noon and 400,000 Units in the evening and 400,000 Units before bedtime. For 7 days. 01/04/2024 Discontinued Claridge-3 Fatty Acids (FISH OI L PO) (20 sources) Claridge-3 Fatty Ac ids (FISH OIL PO) Take by mouth Active Claridge-3 Fatty Ac ids (FISH OIL PO) Take by mouth 0 Active Qimfd-0-BYW-EPA-Fish Oil (FISH OIL) 1,000 (120-180) mg cap (1 source) take 1 capsule by mouth twice daily Xajyi-7-JUU-EPA-Fish Oil (FISH OIL) 1,000 (120-180) mg cap Take 2 g by mouth two times a day. Active Oyster-D oral tablet (10 sources) Star t: 08-09 take 1 tablet by mouth twice daily Oyster-D oral tablet 1 tab(s), Oral, BID, Refill(s) 0 Start Date: 08/22/16 Status: Ordered phentermine hydrochloride 37.5 mg oral tablet (20 sources) Sympathomimetic Amine Anorectic Star t: 11-08 24 End: 05-11 25 take 1 tablet by mouth before mealtime phentermine (Adipex-P) 37.5 MG tablet Indications: Morbid obesity (CMS/HCC) Take 1 tablet (37.5 mg) by mouth in the morning. Take before meals. 30 tablet 04/29/2024 Active Start: 09-24-2022 take 37.5 mg by mouth once trent ly Adipex-P 37.5 mg, Oral, Daily, Refills(s) 0 Start Date: 11/26/22 Status: Ordered take 1 capsule by [facility] every twenty-four hours polyethylene glycol 3350 10434 mg powder for oral solution (1 source) Osmotic Laxative Start: 05-23-2024 Polyethylene Glycol 3350 (Healthylax) 17 gram Powder In Packet Active 17 GM PO Daily as needed for Constipation 0 May 23, 2024 12:00am predniSONE 10 mg oral tablet (4 sources) Start: 05-23-2024 take 2 tablets by mouth once daily Prednisone 10 mg Tablet Active 20 MG PO Daily 0 May 23, 2024 12:00am Please contact the information source for Taper Schedule details. Start: 01-14-2019 End: 06-28-2023 take 1 tablet by mouth in the morning, then take 1 tablet by mouth in the evening, then take 1 tablet by mouth at bedtime predniSONE (Deltasone) 10 MG tablet Indications: COVID-19 Take 1 tablet (10 mg) by mouth in the morning and 1 tablet (10 mg) in the evening and 1 tablet (10 mg) before bedtime. Do all this for 5 days. 15 tablet 0 06/23/2023 06/28/2023 Active Pro-Air HFA CFC free 90 mcg/inh MDI (3 sources) Start: 10-31-2014 take 1 puff(s) by inhalation twice daily for wheezing Pro-Air HFA CFC free 90 mcg/inh MDI 1 puff(s), Inhalation, BID for wheezing, 8.5 gram, Refill(s) 0 Start Date: 10/31/14 Status: Ordered QUEtiapine 25 mg oral tablet (1 source) Atypical Antipsychotic Start: 05-23-2024 take 1 tablet by mouth once daily at bedtime Quetiapine 25 mg Tablet Active 25 MG PO Daily at bedtime 0 May 23, 2024 12:00am SUMAtriptan 100 mg oral tablet (1 source) Serotonin-1b and Serotonin-1d Receptor Agonist Start: 01-12-2019 SUMAtriptan (IMITREX) 100 mg tablet take 1 tablet by mouth AT ONSET OF MIGRAINE AND MAY REPEAT WITH 1... (REFER TO PRESCRIPTION NOTES). 0 01/12/2019 Active divalproex sodium 250 mg delayed release oral tablet (20 sources) Mood Stabilizer, Anti-epileptic Agent Start: 05-23-2024 take 1 tablet by mouth twice daily Divalproex 250 mg Tablet,Delayed Release (Dr/Ec) Active 250 MG PO Twice daily 0 May 23, 2024 12:00am Start: 09-10-2021 take 125 mg by mouth once jeff y divalproex sodium 125 mg, Oral, Daily, Refills(s) 0 Start Date: 09/10/21 Status: Ordered Start: 07-21-2017 take 1 tablet by lesley once daily divalproex ER (DEPAKOTE ER) 250 mg 24 hr tablet Take 250 mg by mouth once daily. 1 07/21/2017 Active Start: 02-11-2017 End: 05-23-2024 take 2 tablets by mouth at bedtime divalproex (Depakote) 250 MG EC tablet Indications: Migraine without status migrainosus, not intractable, unspecified migraine type (CMS/HCC) TAKE 2 TABLETS (500 MG) BY MOUTH AT BEDTIME 180 tablet 1 11/09/2023 Active Start: 02-11-2017 take 500 mg by mouth at bedtim e Divalproex Active 500 MG PO Bedtime February 11, 2017 12:00am Start: 02-11-2017 Divalproex Act errol February 11, 2017 12:00am walker (2 sources) Start: 09-24-2022 walker walker, wheeled walker with a seat DX: M96.1 length of need 99, Print Requisition, Supply Start Date: 09/24/22 Status: Ordered Completed/Discontinued Medications Medication Drug Class(es) Dates Sig (Normalized) Sig (Original) Advair Diskus 500-50 MCG/DOSE (1 source) cephalexin 500 mg oral capsule (5 sources) Cephalosporin Antibacterial Start: 12-29-2023 End: 01-10-2024 take 1 capsule by mouth three times daily Cephalexin 500 mg capsule Discontinued 500 MG PO Three times daily 28 11December 28, 2023 11:00pm January 10, 2024 6:38pm fluconazole 100 mg oral tablet (2 sources) Azole Antifungal Start: 12-26-2023 End: 01-04-2024 take 1 tablet by mouth once daily fluconazole (Diflucan) 100 MG tablet Indications: Oral thrush Take 1 tablet (100 mg) by mouth Daily for 3 days 3 tablet 12/26/2023 01/04/2024 Discontinued 12 hr guaiFENesin 600 mg extended release oral tablet (12 sources) Start: 12-29-2023 End: 05-02-2024 take 1 tablet by mouth twice daily, then take 1 tablet by mouth every twelve hours Guaifenesin (Mucinex) 600 mg tablet extended release 12hr Discontinued 600 MG PO Twice daily December 28, 2023 11:00pm May 02, 2024 12:39pm indomethacin 25 mg oral capsule (11 sources) Nonsteroidal Anti-inflammatory Drug Start: 02-11-2017 End: 05-23-2024 take 1 capsule by mouth once daily Indomethacin 25 mg Capsule Discontinued 25 MG PO .QD February 10, 2017 11:00pm May 23, 2024 12:54pm lidocaine 0.05 mg/mg medicated patch (11 sources) Antiarrhythmic, Amide Local Anesthetic Start: 11-25-2020 End: 12-27-2023 apply 1 dose topically once daily Lidocaine (Lidoderm) 5 % adhesive patch,medicated Discontinued 1 PATCH TOPICAL Daily 15 November 24, 2020 11:00pm December 27, 2023 8:53am leave on most painful area for up to 12 hrs pantoprazole 40 mg delayed release oral tablet (11 sources) Proton Pump Inhibitor Start: 02-13-2017 End: 03-13-2017 take 1 tablet by mouth once daily in the morning Pantoprazole 40 mg tablet,delayed release (DR/EC) Discontinued 40 MG PO Every morning February 12, 2017 11:00pm March 11, 2017 11:00pm March 12, 2017 11:04pm Problems Active Problems Problem Classification Problem Date Documented Da te Episodic/Chronic Acquired foot deformities (20 sources) Hammer toe; Translations: [Other hammer toe(s) (acquired), left foot] Onset: 3 04-13-2023 Chronic Anxiety disorders (20 sources) Mixed anxiety and depressive disorder; Translations: [Anxiety disorder, unspecified] Onset: 3 10-22-2022 Chronic Asthma (20 sources) Asthma without status asthmaticus; Translations: [Unspecified asthma, uncomplicated] Onset: 3 10-19-2022 Chronic Bacterial infection; unspecified site (7 sources) Bacteremia caused by Gram-positive bacteria; Translations: [Bacteremia] Onset: 4 05-03-2024 Episodic Cardiac dysrhythmias (2 sources) Atrial fibrillation with rapid ventricular response; Translations: [Unspecified atrial fibrillation] 05-02-2024 Chronic Chronic obstructive pulmonary disease and bronchiectasis (1 source) Chronic obstructive lung disease; Translations: [Chronic obstructive pulmonary disease, unspecified] 11-21-2013 Chronic Chronic ulcer of skin (20 sources) Non-pressure chronic ulcer of other part of left foot limited to breakdown of skin; Translations: [Ulcer of other part of foot] Onset: 3 04-13-2023 Chronic Conditions associated with dizziness or vertigo (7 sources) Vertigo; Translations: [Dizziness and giddiness] 04-20-2024 Episodic Deficiency and other anemia (13 sources) Anemia 10-31-2014 Episodic Diseases of mouth; excluding dental (2 sources) Aphthous ulcer of mouth; Translations: [Recurrent oral aphthae] 04-20-2024 Episodic Disorders of lipid metabolism (20 sources) Mixed hyperlipidemia; Translations: [Mixed hyperlipidemia] Onset: 3 10-19-2022 Chronic Esophageal disorders (20 sources) Gastroesophageal reflux disease; Translations: [Gastro-esophageal reflux disease without esophagitis] Onset: 3 10-31-2014 Chronic Essential hypertension (20 sources) Essential hypertension; Translations: [Essential (primary) hypertension] Onset: 3 10-19-2022 Chronic Fluid and electrolyte disorders (7 sources) Dehydration; Translations: [Dehydration] 12-27-2023 Episodic Headache; including migraine (20 sources) Migraine; Translations: [Migraine, unspecified, not intractable, without status migrainosus] Onset: 8 10-19-2022 Chronic Headache; including migraine (2 sources) Headache; Translations: [Mixed headache] Onset: 5 03-18-2024 Episodic Immunizations and screening for infectious disease (4 sources) Patient encounter status; Translations: [Encounter for screening for malignant neoplasm of prostate] 03-31-2024 Episodic Malignant neoplasm without specification of site (1 source) Malignant neoplastic disease; Translations: [Malignant (primary) neoplasm, unspecified] 11-21-2013 Chronic Mood disorders (20 sources) Recurrent major depression in partial remission; Translations: [Major depressive disorder, recurrent, in partial remission] Onset: 3 04-13-2023 Chronic Non-Hodgkin`s lymphoma (20 sources) Malignant lymphoma; Translations: [Non-Hodgkin's lymphoma (clinical)] Onset: 3 06-04-2016 Chronic Osteoarthritis (20 sources) Osteoarthritis; Translations: [Arthritis] Onset: 3 10-31-2014 Chronic Other aftercare (5 sources) Surgical follow-up; Translations: [Encounter for removal of sutures] 12-15-2023 Episodic Other gastrointestinal disorders (20 sources) Celiac disease; Translations: [Celiac disease] Onset: 3 07-22-2013 Chronic Other hereditary and degenerative nervous system conditions (1 source) Mild cognitive impairment, so stated; Translations: [Mild cognitive impairment of uncertain or unknown etiology] Onset: 4 Chronic Other injuries and conditions due to external causes (2 sources) Closed injury of head; Translations: [Unspecified injury of head, initial encounter] 01-10-2024 Episodic Other nervous system disorders (20 sources) Chronic pain; Translations: [Other chronic pain] Onset: 4 10-22-2022 Chronic Other non-traumatic joint disorders (20 sources) Arthropathy; Translations: [Arthropathy, unspecified] Onset: 3 10-19-2022 Chronic Other nutritional; endocrine; and metabolic disorders (7 sources) Obesity; Translations: [Obesity, unspecified] Onset: 3 10-19-2022 Chronic Other nutritional; endocrine; and metabolic disorders (20 sources) Hypomagnesemia; Translations: [Hypomagnesemia] Onset: 4 01-11-2024 Chronic Other nutritional; endocrine; and metabolic disorders (20 sources) Morbid obesity; Translations: [Morbid (severe) obesity due to excess calories] Onset: 3 01-04-2024 Chronic Other upper respiratory disease (20 sources) Allergic rhinitis; Translations: [Allergic rhinitis, unspecified] Onset: 3 10-19-2022 Chronic Residual codes; unclassified (20 sources) Obstructive sleep apnea syndrome; Translations: [Obstructive sleep apnea (adult) (pediatric)] Onset: 8 09-02-2023 Chronic Residual codes; unclassified (20 sources) Hypersomnia disorder related to a known organic factor; Translations: [Hypersomnia, unspecified] Onset: 9 09-02-2023 Chronic Residual codes; unclassified (1 source) Postprocedural state finding; Translations: [Presence of other specified functional implants] Onset: 4 11-21-2013 Chronic Residual codes; unclassified (14 sources) Chronic pain 01-01-2017 Episodic Residual codes; unclassified (1 source) Amnesia; Translations: [Other amnesia] 03-18-2024 Episodic Residual codes; unclassified (4 sources) Memory impairment; Translations: [Other amnesia] 01-12-2024 Episodic Residual codes; unclassified (1 source) Altered mental status; Translations: [Altered mental status, unspecified] 05-03-2024 Episodic Residual codes; unclassified (2 sources) Altered mental status, unspecified; Translations: [Altered mental status] Onset: 4 05-23-2024 Episodic Residual codes; unclassified (1 source) Disorientation, unspecified; Translations: [Disorientation, unspecified] Onset: 4 Episodic Respiratory failure; insufficiency; arrest (adult) (3 sources) [id number] respiratory failure; Translations: [Acute and chronic respiratory failure, unspecified whether with hypoxia or hypercapnia] Onset: 4 05-16-2024 Chronic Respiratory failure; insufficiency; arrest (adult) (3 sources) Acute respiratory failure; Translations: [Acute respiratory failure with hypoxia] Onset: 4 05-12-2024 Episodic Retinal detachments; defects; vascular occlusion; and retinopathy (1 source) Unspecified retinal vascular occlusion; Translations: [Retinal vascular occlusion, unspecified] 11-21-2013 Chronic Rheumatoid arthritis and related disease (13 sources) Rheumatoid arthritis 10-31-2014 Chronic Skin and subcutaneous tissue infections (7 sources) Cellulitis, unspecified; Translations: [Cellulitis and abscess of unspecified sites] 10-21-2023 Episodic Spondylosis; intervertebral disc disorders; other back problems (20 sources) Lumbar post-laminectomy syndrome; Translations: [Lumbosacral spondylosis without myelopathy] Onset: 3 01-01-2017 Chronic Superficial injury; contusion (2 sources) Hematoma of scalp; Translations: [Contusion of scalp, initial encounter] 01-10-2024 Episodic Unclassified (13 sources) Malignant neoplasm, 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 Unclassified (10 sources) Long-term current use of opiate analgesic drug Onset: 2 11-27-2021 Comment on above: Added secondary to c urrent Opioid Treatment Agreement Unclassified (2 sources) Impaired mobility and ADLs 03-01-2024 Urinary tract infections (3 sources) Urinary tract infectious disease; Translations: [Urinary tract infection, site not specified] Onset: 4 05-02-2024 Episodic Viral infection (11 sources) Disease caused by 2019-nCoV; Translations: [COVID-19] 06-23-2023 Episodic Viral infection (1 source) COVID-19; Translations: [COVID-19] Onset: 4 Past or Other Problems Problem Classification Problem Date Documented Date Episodic/Chronic Administrative/social admission (20 sources) Other reduced mobility; Translations: [Impaired mobility and activities of daily living] Onset: 12-27-2023 12-29-2023 Episodic Diabetes mellitus without complication (20 sources) Prediabetes; Translations: [Prediabetes] Onset: 11-25-2023 11-25-2023 Episodic Mood disorders (20 sources) Mood disorders Onset: 02-20-2023 Resolved: 03-01-2024 02-20-2023 Mycoses (12 sources) Candidiasis of mouth; Translations: [Candidal stomatitis] Onset: 12-27-2023 12-27-2023 Episodic Non-Hodgkin`s lymphoma (20 sources) History of non-Hodgkins lymphoma; Translations: [Personal history of non-Hodgkin lymphomas] Onset: 07-26-2014 10-22-2022 Episodic Open wounds of head; neck; and trunk (7 sources) Laceration - injury; Translations: [Laceration] Onset: 12-15-2023 12-08-2023 Episodic Other aftercare (20 sources) Long-term current use of opiate analgesic drug; Translations: [moth exterminator (current) use of opiate analgesic] Onset: 11-27-2021 10-22-2022 Episodic Other connective tissue disease (20 sources) Recurrent falls ; Translations: [Repeated falls] Onset: 01-04-2024 01-11-2024 Episodic Other connective tissue disease (1 source) Pain in buttock; Translations: [Myalgia, other site] Onset: 11-21-2013 11-21-2013 Episodic Other connective tissue disease (2 sources) Other symptoms and signs involving the musculoskeletal system; Translations: [Other musculoskeletal symptoms referable to limbs] 01-12-2024 Episodic Other injuries and conditions due to external causes (20 sources) Injury of head; Translations: [Unspecified injury of head, initial encounter] Onset: 12-11-2023 12-08-2023 Episodic Other injuries and conditions due to external causes (1 source) Unspecified injury of head, initial encounter; Translations: [Unspecified injury of head, initial encounter] Onset: 01-10-2024 Episodic Other injuries and conditions due to external causes (1 source) Other specified injuries of head, initial encounter; Translations: [Other specified injuries of head, initial encounter] Onset: 12-08-2023 Episodic Other lower respiratory disease (20 sources) Snoring; Translations: [Snoring] Onset: 10-22-2022 10-31-2014 Episodic Other non-traumatic joint disorders (8 sources) Pain in left elbow; Translations: [Pain in joint, upper arm] Onset: 10-21-2023 10-21-2023 Episodic Pneumonia (except that caused by tuberculosis or sexually transmitted disease) (20 sources) Community acquired pneumonia; Translations: [Pneumonia, unspecified organism] Onset: 12-27-2023 12-27-2023 Episodic Residual codes; unclassified (20 sources) Insomnia; Translations: [Insomnia, unspecified] Onset: 10-19-2022 10-19-2022 Episodic Residual codes; unclassified (1 source) H/O Spinal surgery; Translations: [Other specified postprocedural states] Onset: 11-21-2013 11-21-2013 Episodic Residual codes; unclassified (1 source) Family history of non-Hodgkin's lymphoma; Translations: [Family history of other malignant neoplasms of lymphoid, hematopoietic and related tissues] Onset: 07-26-2014 07-26-2014 Episodic Residual codes; unclassified (1 source) Other specified health status; Translations: [Other specified health status] Onset: 12-27-2023 Episodic Septicemia (except in labor) (10 sources) Sepsis; Translations: [Sepsis, unspecified organism] Onset: 12-27-2023 12-27-2023 Episodic Spondylosis; intervertebral disc disorders; other back problems (20 sources) Backache; Translations: [Dorsalgia, unspecified] Onset: 11-21-2013 11-25-2020 Episodic Unclassified (12 sources) Onset: 03-01-2024 03-01-2024 Results Test Name Value Interpretation Reference Range Facility ALL CBC WITH AUTO DIFFon BASOPHILS ABSOLUTE AUTO 0 [facility] Basophils/100 WBC (Bld) 0.3 % 0.2 - 2.0 % [facility] Eosinophils/100 WBC (Bld) 3.4 % 0.9 - 7.0 % [facility] Erythrocyte distribution width (RBC) [Ratio] 16.6 % High 11.0 - 15.0 % [facility] Hematocrit (Bld) [Volume fraction] 31 % Low 42.0 - 54.0 % [facility] Hemoglobin (Bld) [Mass/Vol] 9.8 g/dL Low 14.0 - 18.0 g/dL [facility] IMMATURE GRANULOCYTES ABS AUTO 0.12 High [facility] Immature granulocytes/100 WBC (Bld) 1 % High 0.0 - 0.5 % [facility] Interpretation and review of laboratory results Abnormal [facility] LYMPHOCYTES ABSOLUTE AUTO 4.5 High [facility] Lymphocytes/100 WBC (Bld) 38.7 % 20.5 - 60.0 % [facility] MCH (RBC) [Entitic mass] 33.6 pg 25.9 - 34.0 pg [facility] MCHC (RBC) [Mass/Vol] 31.6 g/dL 29.9 - 35.2 g/dL [facility] MCV (RBC) [Entitic vol] 106.2 fL High 80.0 - 94.0 fL [facility] MONOCYTES ABSOLUTE AUTO 1.4 High [facility] Monocytes/100 WBC (Bld) 11.6 % 1.7 - 12.0 % [facility] NEUTROPHILS ABSOLUTE AUTO 5.3 [facility] Neutrophils/100 WBC (Bld) 45 % 43.0 - 75.0 % [facility] Platelet mean volume (Bld) [Entitic vol] 8.9 fL Low 9.5 - 13.5 fL [facility] TBH EO # 0.4 [facility] TBH PLT 373 [facility] TB RBC 2.92 Low [facility] TB WBC 11.7 High [facility] Alanine aminotransferase [En zymatic activity/volume] in Serum or PlasmaOrdered By: Shira Nath on 05-23-2024 ALT [Catalytic activity/Vol] Alanine aminotransferase [Enzymatic activity/volume] in Serum or Plasma 7-52 [facility] Albumin [Mass/volume] in Ser um or Plasma by Bromocresol green (BCG) dye binding methoOrdered By: Shira Riosomar on 05-23-2024 Albumin BCG dye [Mass/Vol] Albumin [Mass/volume] in Serum or Plasma by Bromocresol green (BCG) dye binding metho Low 3.5-5.7 [facility] Alkaline phosphatase [Enzyma tic activity/volume] in Serum or PlasmaOrdered By: Shira Riosomar on 05-23-2024 ALP [Catalytic activity/Vol] Alkaline phosphatase [Enzymatic activity/volume] in Serum or Plasma 34-104 [facility] Aspartate aminotransferase [ Enzymatic activity/volume] in Serum or PlasmaOrdered By: Shira Nath on 05-23-2024 AST [Catalytic activity/Vol] Aspartate aminotransferase [Enzymatic activity/volume] in Serum or Plasma 13-39 [facility] Basophils Auto (Bld) [#/Vol] Ordered By: Obapril Bettencourtr on 05-23-2024 Basophils (Bld) [#/Vol] Automated basophil count 0.0-0.2 [facility] Basophils/100 WBC Auto (Bld) Ordered By: Obapril Bettencourtr on 05-23-2024 Basophils/100 WBC (Bld) Automated basophil % . [facility] Bilirubin.total [Mass/volume ] in Serum or PlasmaOrdered By: Shira Nath on 05-23-2024 Bilirubin [Mass/Vol] Bilirubin.total [Mass/volume] in Serum or Plasma High 0.3-1.0 [facility] Comment on above: Samples from patient s who have taken Naproxen have shown spurious elevation in Total Bilirubin levels. A metabolite of Naproxen, O-desmethylnaproxen, has been shown to interfere with the Kacey-Katia method for measuring Total Bilirubin. Calcium [Mass/volume] in Ser um or PlasmaOrdered By: Shira Nath on 05-23-2024 Calcium [Mass/Vol] Calcium [Mass/volume ] in Serum or Plasma 8.6-10.3 [facility] Carbon dioxide, total [Moles /volume] in Serum or PlasmaOrdered By: Shira Nath on 05-23-2024 CO2 [Moles/Vol] Carbon dioxide, tota l [Moles/volume] in Serum or Plasma High 21.0-31.0 [facility] Chloride [Moles/volume] in S kay or PlasmaOrdered By: Shira Nath on 05-23-2024 Chloride [Moles/Vol] Chloride [Moles/vol ume] in Serum or Plasma 98-107 [facility] Complete Blood Count Auto Di ffon 05-23-2024 Basophils (Bld) [#/Vol] 0.1 10*3/uL Normal 0.0-0.2 [facility] Comment on above: Result Comment: PERF ORMED BY:[place] [address] [place], [place] [id number] MEDICAL DIRECTORFRANCHESCA MAGALLON M.D. Performed By: #### C BC ####[place] [id number] [facility] Basophils/100 WBC (Bld) 0.7 % Normal . T jeniffer [facility] Comment on above: Performed By: #### C BC ####[address] Eosinophils (Bld) [#/Vol] 0.1 10*3/uL Normal 0.0-0.45 [facility] Comment on above: Performed By: #### C BC ####[address] Eosinophils/100 WBC (Bld) 0.4 % Normal . [facility] Comment on above: Performed By: #### C BC ####[address] Erythrocyte distribution width (RBC) [Ratio] 16.8 % High 12.0-14.8 [facility] Comment on above: Performed By: #### C BC ####[address] Hematocrit (Bld) [Volume fraction] 31.5 % Low 38.8-50.0 [facility] Comment on above: Performed By: #### C BC ####[address] Hemoglobin (Bld) [Mass/Vol] 10.9 g/dL Low 13.0-17.0 [facility] Comment on above: Performed By: #### C BC ####[address] Lymphocytes (Bld) [#/Vol] 2.3 10*3/uL Normal 1.00-4.8 [facility] Comment on above: Performed By: #### C BC ####[address] Lymphocytes/100 WBC (Bld) 11.4 % Normal . [facility] Comment on above: Performed By: #### C BC ####[address] MCH (RBC) [Entitic mass] 33.5 pg Normal 27.5-35.2 [facility] Comment on above: Performed By: #### C BC ####[address] MCV (RBC) [Entitic vol] 96.6 fL Normal 83.5-101 [facility] Comment on above: Performed By: #### C BC ####[address] Mean Corpuscular HGB Conc 34.7 g/dL Normal 32.5-35.6 [facility] Comment on above: Performed By: #### C BC ####[address] Monocytes (Bld) [#/Vol] 1.4 10*3/uL High 0.0-0.8 [facility] Comment on above: Performed By: #### C BC ####[address] Monocytes/100 WBC (Bld) 6.9 % Normal . [facility] Comment on above: Performed By: #### C BC ####[address] Neutrophils (Bld) [#/Vol] 16.1 10*3/uL High 1.8-7.7 [facility] Comment on above: Performed By: #### C BC ####[address] Neutrophils/100 WBC (Bld) 80.6 % Normal . [facility] Comment on above: Performed By: #### C BC ####[address] NRBC% 0.1 /100{WBC} Normal 0-0.5 [facility] Comment on above: Performed By: #### C BC ####[address] Platelet mean volume (Bld) [Entitic vol] 7.9 fL Normal 6.6-10.1 [facility] Comment on above: Performed By: #### C BC ####[address] Platelets (Bld) [#/Vol] 303 10*3/uL Normal 150-450 [facility] Comment on above: Performed By: #### C BC ####[address] RBC (Bld) [#/Vol] 3.27 10*6/uL Low 3.90-5.60 [facility] Comment on above: Performed By: #### C BC ####[address] WBC (Bld) [#/Vol] 20.1 10*3/uL High 4.1-10.5 [facility] Comment on above: Performed By: #### C BC ####[address] Comprehensive Metabolic Pane raudel 05-23-2024 Albumin [Mass/Vol] 3.2 g/dL Low 3.5-5.7 [facility] Comment on above: Performed By: #### C MP ####[address] Albumin/Globulin [Mass ratio] 1.7 {ratio} Normal [facility] Comment on above: Performed By: #### C MP ####[address] ALP [Catalytic activity/Vol] 72 U/L Normal 34-104 [facility] Comment on above: Performed By: #### C MP ####[address] ALT [Catalytic activity/Vol] 34 U/L Normal 7-52 [facility] Comment on above: Performed By: #### C MP ####[address] [address] [facility] Anion gap [Moles/Vol] 10.5 mmol/L Normal 6.0-15.0 [facility] Comment on above: Performed By: #### C MP ####[address] [address] [facility] AST [Catalytic activity/Vol] 19 U/L Normal 13-39 [facility] Comment on above: Performed By: #### C MP ####[address] [address] [facility] Bilirubin [Mass/Vol] 1.6 mg/dL High 0.3-1.0 [facility] Comment on above: Result Comment: Samp les from patients who have taken Naproxen have shown spurious elevation in Total Bilirubin levels. A metabolite of Naproxen, O-desmethylnaproxen, has been shown to interfere with the Jendrassik-Grof method for measuring Total Bilirubin. Performed By: #### C MP ####[place] [id number] [facility] Calcium [Mass/Vol] 8.7 mg/dL Normal 8.6-10.3 [facility] Comment on above: Performed By: #### C MP ####[address] [address] [facility] Chloride [Moles/Vol] 99 mmol/L Normal 98-107 [facility] Comment on above: Performed By: #### C MP ####[address] [address] [facility] CO2 [Moles/Vol] 33.1 mmol/L High 21.0-31.0 [facility] Comment on above: Performed By: #### C MP ####[place] [id number] [facility] Creatinine [Mass/Vol] 0.92 mg/dL Normal 0.70-1.30 [facility] Comment on above: Performed By: #### C MP ####[address] [address] [facility] Creatinine Clr Calc Pharmacy 78.86 Normal [facility] Comment on above: Result Comment: PERF ORMED BY:[address] [place], [place] [id number] MEDICAL TRESA MAGALLON M.D. Performed By: #### C MP ####[place] [id number] [facility] GFR/1.73 sq M.predicted MDRD (S/P/Bld) [Vol rate/Area] mL/min/{1.73_m2} Normal [facility] Comment on above: Performed By: #### C MP ####[place] [id number] [facility] Globulin (S) [Mass/Vol] 1.9 g/dL Normal T [facility] Comment on above: Performed By: #### C MP ####[place] [id number] [facility] Glucose [Mass/Vol] 85 mg/dL Normal 70-100 [facility] Comment on above: Result Comment: [facility] Glucose Reference Range is dependent on time and content of last meal. Glucose of more than 200 mg/dL in a nonstressed, ambulatory subject supports the diagnosis of Diabetes Mellitus. ADA recommended reference range Performed By: #### C MP ####[place] [id number] [facility] Potassium [Moles/Vol] 3.6 mmol/L Normal 3.5-5.1 [facility] Comment on above: Performed By: #### C MP ####[place] [id number] [facility] Protein [Mass/Vol] 5.1 g/dL Low 6.4-8.9 [facility] Comment on above: Performed By: #### C MP ####[place] [id number] [facility] Sodium [Moles/Vol] 139 mmol/L Normal 136-145 [facility] Comment on above: Performed By: #### C MP ####[facility] [id number] [place] [id number] [facility] Urea nitrogen [Mass/Vol] 44 mg/dL High 7-25 [facility] Comment on above: Performed By: #### C MP ####[facility] [id number] [place] [id number] [facility] Creatinine [Mass/volume] in Serum or PlasmaOrdered By: Obapril Bettencourtr on 05-23-2024 Creatinine [Mass/Vol] Creatinine [Mass/v olume] in Serum or Plasma 0.70-1.30 [facility] Eosinophils Auto (Bld) [#/Vo l]Ordered By: Obariandahaylee Riosomar on 05-23-2024 Eosinophils (Bld) [#/Vol] Automated eosinophil count 0.0-0.[address] [facility] Eosinophils/100 WBC Auto (Bl d)Ordered By: Shira Riosomar on 05-23-2024 Eosinophils/100 WBC (Bld) Automated eosinophil % . [facility] Erythrocyte distribution wid th Auto (RBC) [Ratio]Ordered By: Shira Bettencourtr on 05-23-2024 Erythrocyte distribution width (RBC) [Ratio] Erythrocyte distribution width [Ratio] by Automated count High 12.0-14.8 [facility] Globulin Calc (S) [Mass/Vol] Ordered By: Shira Bettencourtr on 05-23-2024 Globulin (S) [Mass/Vol] Serum globulin m easurement by calculation (mass/volume) [facility] Glucose Glucometer (BldC) [M ass/Vol]Ordered By: Shira Nath on 05-23-2024 Glucose [Mass/Vol] Capillary blood gluc ose measurement by glucometer (mass/volume) [facility] Comment on above: Random Glucose Refer ence Range is dependent on time and content of last meal. Glucose of more than 200 mg/dL in a nonstressed, ambulatory subject supports the diagnosis of Diabetes Mellitus. Glucose Poct Glucometerson 0 05-23-2024 Commemt1 Glu2: Cleaned Meter Normal [facility] Comment on above: Result Comment: PERF ORMED BY:[facility] [place], [place] [id number] MEDICAL DIRECTORFRANCHESCA MAGALLON M.D. Performed By: #### G LULS ####Point of Care testing, Glucose [Mass/Vol] 208 mg/dL Normal [facility] Comment on above: Result Comment: [place] om Glucose Reference Range is dependent on time and content of last meal. Glucose of more than 200 mg/dL in a nonstressed, ambulatory subject supports the diagnosis of Diabetes Mellitus. Performed By: #### G LULS ####Point of Care testing, Commemt1 Glu2: Cleaned Meter Normal [facility] Comment on above: Result Comment: PERF ORMED BY:[facility] [place], [place] [id number] MEDICAL DIRECTORFRANCHESCA MAGALLON M.D. Performed By: #### G LULS ####Point of Care testing, Glucose [Mass/Vol] 77 mg/dL Normal [facility] Comment on above: Result Comment: [place] om Glucose Reference Range is dependent on time and content of last meal. Glucose of more than 200 mg/dL in a nonstressed, ambulatory subject supports the diagnosis of Diabetes Mellitus. Performed By: #### G LULS ####Point of Care testing, Glucose [Mass/volume] in Ser um or PlasmaOrdered By: Shira Nath on 05-23-2024 Glucose [Mass/Vol] Glucose [Mass/volume ] in Serum or Plasma 70-100 [facility] Comment on above: ADA recommended refe rence rangeRandom Glucose Reference Range is dependent on time and content of last meal. Glucose of more than 200 mg/dL in a nonstressed, ambulatory subject supports the diagnosis of Diabetes Mellitus. Hematocrit Auto (Bld) [Volum e fraction]Ordered By: Shira Nath on 05-23-2024 Hematocrit (Bld) [Volume fraction] Hematocrit [Volume Fraction] of Blood by Automated count Low 38.8-50.0 [facility] Hemoglobin [Mass/volume] in BloodOrdered By: Shira Nath on 05-23-2024 Hemoglobin (Bld) [Mass/Vol] Hemoglobin [Mass/volume] in Blood Low 13.0-17.0 [facility] Leukocytes [#/volume] correc suri for nucleated erythrocytes in Blood by Automated counOrdered By: Obariandahaylee Riosomar on 05-23-2024 WBC corrected for nucl RBC Auto (Bld) [#/Vol] Leukocytes [#/volume] corrected for nucleated erythrocytes in Blood by Automated coun High 4.1-10.5 [facility] Lymphocytes Auto (Bld) [#/Vo l]Ordered By: Obariandahaylee Riosomar on 05-23-2024 Lymphocytes (Bld) [#/Vol] Lymphocytes [#/volume] in Blood by Automated count 1.00-4.8 [facility] Lymphocytes/100 WBC Auto (Bl d)Ordered By: Obariandahaylee Riosomar on 05-23-2024 Lymphocytes/100 WBC (Bld) Lymphocytes/100 leukocytes in Blood by Automated count . [facility] MCH Auto (RBC) [Entitic mass ]Ordered By: Shira Riosomar on 05-23-2024 MCH (RBC) [Entitic mass] MCH [Entitic mass] by Automated count 27.5-35.2 [facility] MCHC Auto (RBC) [Mass/Vol]Or dered By: Isisdahaylee Riosomar on 05-23-2024 MCHC (RBC) [Mass/Vol] MCHC [Mass/volume] by Automated count 32.5-35.6 [facility] MCV Auto (RBC) [Entitic vol] Ordered By: Isisdahaylee Riosomar on 05-23-2024 MCV (RBC) [Entitic vol] MCV [Entitic vol ume] by Automated count 83.5-101 [facility] Monocytes Auto (Bld) [#/Vol] Ordered By: Obapril Riosomar on 05-23-2024 Monocytes (Bld) [#/Vol] Automated blood monocyte count High 0.0-0.8 [facility] Monocytes/100 WBC Auto (Bld) Ordered By: Shira Riosomar on 05-23-2024 Monocytes/100 WBC (Bld) Automated monocyte % . [facility] Neutrophils Auto (Bld) [#/Vo l]Ordered By: Shira Bettencourtr on 05-23-2024 Neutrophils (Bld) [#/Vol] Neutrophils [#/volume] in Blood by Automated count High 1.8-7.7 [facility] Neutrophils/100 WBC Auto (Bl d)Ordered By: Obapril Riosomar on 05-23-2024 Neutrophils/100 WBC (Bld) Automated neutrophil % . [facility] No Panel InformationOrdered By: Shira Nath on 05-23-2024 Bedside Glucose Comment Glu2: cleaned meter [facility] Estimated GFR (CKD-EPI) > 60.0 mL/Min [facility] Creatinine Clearance (Chem 78.86 [facility] Nucleated erythrocytes [Pres ence] in Blood by Automated countOrdered By: Shira Nath on 05-23-2024 Nucleated RBC Auto Ql (Bld) Nucleated erythrocytes [Presence] in Blood by Automated count 0-0.5 [facility] Platelet mean volume Auto (B ld) [Entitic vol]Ordered By: Shira Bettencourtr on 05-23-2024 Platelet mean volume (Bld) [Entitic vol] Platelet mean volume [Entitic volume] in Blood by Automated count 6.6-10.1 [facility] Platelets Auto (Bld) [#/Vol] Ordered By: Shira Nath on 05-23-2024 Platelets (Bld) [#/Vol] Platelets [#/vol ume] in Blood by Automated count 150-450 [facility] Potassium [Moles/volume] in Serum or PlasmaOrdered By: Shira Nath on 05-23-2024 Potassium [Moles/Vol] Potassium [Moles/v olume] in Serum or Plasma 3.5-5.1 [facility] Protein [Mass/volume] in Ser um or PlasmaOrdered By: Shira Nath on 05-23-2024 Protein [Mass/Vol] Protein [Mass/volume ] in Serum or Plasma Low 6.4-8.9 [facility] RBC Auto (Bld) [#/Vol]Ordere d By: Shira Bettencourtr on 05-23-2024 RBC (Bld) [#/Vol] Erythrocytes [#/volu me] in Blood by Automated count Low 3.90-5.60 [facility] Serum or plasma albumin/glob ulin mass ratioOrdered By: Shira Bettencourtr on 05-23-2024 Albumin/Globulin [Mass ratio] Serum or plasma albumin/globulin mass ratio [facility] Serum or plasma anion gap de terminationOrdered By: Shira Riosomar on 05-23-2024 Anion gap [Moles/Vol] Serum or plasma an ion gap determination 6.0-15.0 [facility] Sodium [Moles/volume] in Ser um or PlasmaOrdered By: Obapril Riosomar on 05-23-2024 Sodium [Moles/Vol] Sodium [Moles/volume ] in Serum or Plasma 136-145 [facility] Urea nitrogen [Mass/volume] in Serum or PlasmaOrdered By: Shira Riosomar on 05-23-2024 Urea nitrogen [Mass/Vol] Urea nitrogen [Mass/volume] in Serum or Plasma High 7-25 [facility] WBC Auto (Bld) [#/Vol]Ordere d By: Shira Bettencourtr on 05-23-2024 WBC (Bld) [#/Vol] Leukocytes [#/volume ] in Blood by Automated count High 4.1-10.5 [facility] Anisocytosis LM Ql (Bld)Orde red By: Shira Nath on 05-22-2024 Anisocytosis Ql (Bld) Anisocytosis [Pres ence] in Blood by Light microscopy [facility] Band form neutrophils/100 WB C Manual cnt (Bld)Ordered By: Sihra Nath on 05-22-2024 Band form neutrophils/100 WBC (Bld) Peripheral white blood cell differential % bands, microscopic exam 0-5 [facility] Comprehensive Metabolic Pane raudel 05-22-2024 Albumin [Mass/Vol] 3.2 g/dL Low 3.5-5.7 [facility] Comment on above: Performed By: #### C MP ####[facility] [id number] [place] [address] [facility] Albumin/Globulin [Mass ratio] 1.4 {ratio} Normal [facility] Comment on above: Performed By: #### C MP ####[address] [address] [facility] ALP [Catalytic activity/Vol] 62 U/L Normal 34-104 [facility] Comment on above: Performed By: #### C MP ####[address] [address] [facility] ALT [Catalytic activity/Vol] 42 U/L Normal 7-52 [facility] Comment on above: Performed By: #### C MP ####[place] [id number] [facility] Anion gap [Moles/Vol] 11.6 mmol/L Normal 6.0-15.0 [facility] Comment on above: Performed By: #### C MP ####[place] [id number] [facility] AST [Catalytic activity/Vol] 25 U/L Normal 13-39 [facility] Comment on above: Performed By: #### C MP ####[place] [id number] [facility] Bilirubin [Mass/Vol] 1.8 mg/dL High 0.3-1.0 [facility] Comment on above: Result Comment: Samp les from patients who have taken Naproxen have shown spurious elevation in Total Bilirubin levels. A metabolite of Naproxen, O-desmethylnaproxen, has been shown to interfere with the Jendrassik-Grof method for measuring Total Bilirubin. Performed By: #### C MP ####[place] [id number] [facility] Calcium [Mass/Vol] 8.3 mg/dL Low 8.6-10.3 [facility] Comment on above: Performed By: #### C MP ####[place] [id number] [facility] Chloride [Moles/Vol] 100 mmol/L Normal 98-107 [facility] Comment on above: Performed By: #### C MP ####[place] [id number] [place] CO2 [Moles/Vol] 27.0 mmol/L Normal 21.0-31.0 [facility] Comment on above: Performed By: #### C MP ####[place] [id number] [facility] Creatinine [Mass/Vol] 1.22 mg/dL Normal 0.70-1.30 [facility] Comment on above: Performed By: #### C MP ####[address] Creatinine Clr Calc Pharmacy 59.90 Normal [facility] Comment on above: Result Comment: PERF ORMED BY:[address] [place], [place] [id number] MEDICAL DIRECTORFRANCHESCA MAGALLON M.D. Performed By: #### C MP ####[address] GFR/1.73 sq M.predicted MDRD (S/P/Bld) [Vol rate/Area] mL/min/{1.73_m2} Normal [facility] Comment on above: Performed By: #### C MP ####[address] Globulin (S) [Mass/Vol] 2.3 g/dL Normal T [facility] Comment on above: Performed By: #### C MP ####[address] Glucose [Mass/Vol] 89 mg/dL Normal 70-100 [facility] Comment on above: Result Comment: [place] Glucose Reference Range is dependent on time and content of last meal. Glucose of more than 200 mg/dL in a nonstressed, ambulatory subject supports the diagnosis of Diabetes Mellitus. ADA recommended reference range Performed By: #### C MP ####[address] Potassium [Moles/Vol] 3.6 mmol/L Normal 3.5-5.1 [facility] Comment on above: Result Comment: Hemo lysis is present at a level that could interfere with the result. Contact lab if redraw is required Performed By: #### C MP ####[address] Protein [Mass/Vol] 5.5 g/dL Low 6.4-8.9 [facility] Comment on above: Performed By: #### C MP ####[address] Sodium [Moles/Vol] 135 mmol/L Low 136-145 [facility] Comment on above: Performed By: #### C MP ####[address] Urea nitrogen [Mass/Vol] 46 mg/dL High 7-25 [facility] Comment on above: Performed By: #### C MP ####[address] Diff and CBCon 05-22-2024 Anisocytosis Ql (Bld) Slight Normal [facility] Comment on above: Performed By: #### D IFF CBC ####[address] Band form neutrophils/100 WBC (Bld) 2 % Normal 0-5 [facility] Comment on above: Performed By: #### D IFF CBC ####[address] Erythrocyte distribution width (RBC) [Ratio] 16.1 % High 12.0-14.8 [facility] Comment on above: Performed By: #### D IFF CBC ####[place] [id number] [facility] Hematocrit (Bld) [Volume fraction] 31.7 % Low 38.8-50.0 [facility] Comment on above: Performed By: #### D IFF CBC ####[address] Hemoglobin (Bld) [Mass/Vol] 10.9 g/dL Low 13.0-17.0 [facility] Comment on above: Performed By: #### D IFF CBC ####[place] [id number] [facility] Lymphocytes/100 WBC (Bld) 9 % Low 18-42 [facility] Comment on above: Performed By: #### D IFF CBC ####[place] [id number] [facility] MCH (RBC) [Entitic mass] 33.3 pg Normal 27.5-35.2 [facility] Comment on above: Performed By: #### D IFF CBC ####[address] MCV (RBC) [Entitic vol] 96.8 fL Normal 83.5-101 [facility] Comment on above: Performed By: #### D IFF CBC ####[address] Mean Corpuscular HGB Conc 34.4 g/dL Normal 32.5-35.6 [facility] Comment on above: Performed By: #### D IFF CBC ####[address] Monocytes/100 WBC (Bld) 4 % Normal 2-11 [facility] Comment on above: Performed By: #### D IFF CBC ####[place] [id number] [facility] Ovalocytes Slight Normal [facility] Comment on above: Performed By: #### D IFF CBC ####[place] [id number] [facility] Platelet Estimate Normal Normal Normal [facility] Comment on above: Performed By: #### D IFF CBC ####[place] [id number] [facility] Platelet mean volume (Bld) [Entitic vol] 8.2 fL Normal 6.6-10.1 [facility] Comment on above: Performed By: #### D IFF CBC ####[place] [id number] [facility] Platelet Morphology Normal Normal Normal [facility] Comment on above: Result Comment: PERF ORMED BY:[address] [place], [place] [id number] MEDICAL DIRECTORFRANCHESCA MAGALLON M.D. Performed By: #### D IFF CBC ####[place] [id number] [facility] Platelets (Bld) [#/Vol] 310 10*3/uL Normal 150-450 [facility] Comment on above: Performed By: #### D IFF CBC ####[place] [id number] [facility] Poikilocytosis Slight Normal [facility] Comment on above: Performed By: #### D IFF CBC ####[place] [id number] [facility] RBC (Bld) [#/Vol] 3.27 10*6/uL Low 3.90-5.60 [facility] Comment on above: Performed By: #### D IFF CBC ####[place] [id number] [facility] Reactive Lymphocytes 2 % Normal 0-12 [facility] [facility] Comment on above: Performed By: #### D IFF CBC ####[place] [id number] [facility] Schistocytes Slight Normal [facility] Comment on above: Performed By: #### D IFF CBC ####[place] [id number] [facility] Segmented neutrophils/100 WBC (Bld) 84 % High 50-70 [facility] Comment on above: Performed By: #### D IFF CBC ####[place] [id number] [facility] WBC (Bld) [#/Vol] 21.0 10*3/uL High 4.1-10.5 [facility] Comment on above: Performed By: #### D IFF CBC ####[place] [id number] [facility] Erythrocyte morphology findi ng [Identifier] in BloodOrdered By: Shira Nath on 05-22-2024 RBC morphology finding Nom (Bld) RBC morphology [facility] Glucose Poct Glucometerson 0 05-22-2024 Glucose [Mass/Vol] 171 mg/dL Normal [facility] Comment on above: Result Comment: [place] Glucose Reference Range is dependent on time and content of last meal. Glucose of more than 200 mg/dL in a nonstressed, ambulatory subject supports the diagnosis of Diabetes Mellitus.PERFORMED BY:[address] [place], [place] [phone] MEDICAL DIRECTORFRANCHESCA MAGALOLN M.D. Performed By: #### G LULS ####Point of Care testing, Glucose [Mass/Vol] 184 mg/dL Normal [facility] Comment on above: Result Comment: [facility] Glucose Reference Range is dependent on time and content of last meal. Glucose of more than 200 mg/dL in a nonstressed, ambulatory subject supports the diagnosis of Diabetes Mellitus.PERFORMED BY:[address] [place], [place] [phone] MEDICAL DIRECTORFRANCHESCA MAGALLON M.D. Performed By: #### G LULS ####Point of Care testing, Glucose [Mass/Vol] 87 mg/dL Normal [facility] Comment on above: Result Comment: [facility] Glucose Reference Range is dependent on time and content of last meal. Glucose of more than 200 mg/dL in a nonstressed, ambulatory subject supports the diagnosis of Diabetes Mellitus.PERFORMED BY:[address] [place], [place] [phone] MEDICAL DIRECTORFRANCHESCA MAGALLON M.D. Performed By: #### G LULS ####Point of Care testing, Glucose [Mass/Vol] 326 mg/dL Normal [facility] Comment on above: Result Comment: [facility] Glucose Reference Range is dependent on time and content of last meal. Glucose of more than 200 mg/dL in a nonstressed, ambulatory subject supports the diagnosis of Diabetes Mellitus.PERFORMED BY:[address] [place], [place] [phone] MEDICAL DIRECTORFRANCHESCA MAGALLON M.D. Performed By: #### G LULS ####Point of Care testing, Lymphocytes/100 WBC Manual c nt (Bld)Ordered By: Shira Nath on 05-22-2024 Lymphocytes/100 WBC (Bld) Lymphocytes/100 leukocytes in Blood by Manual count Low 18-42 [facility] Monocytes/100 WBC Manual cnt (Bld)Ordered By: Shira Nath on 05-22-2024 Monocytes/100 WBC (Bld) Monocytes/100 le ukocytes in Blood by Manual count 2-11 [facility] Ovalocytes [Presence] in Blo od by Light microscopyOrdered By: Shira Nath on 05-22-2024 Ovalocytes LM Ql (Bld) Ovalocyte detection [facility] Platelet adequacy [Presence] in Blood by Light microscopyOrdered By: Shira Nath on 05-22-2024 Platelets LM Ql (Bld) Platelet adequacy [Presence] in Blood by Light microscopy Normal [facility] Platelet morphology finding [Identifier] in BloodOrdered By: Shira Nath on 05-22-2024 Platelet morphology finding Nom (Bld) Platelet morphology finding [Identifier] in Blood Normal [facility] Poikilocytosis [Presence] in Blood by Light microscopyOrdered By: Shira Nath on 05-22-2024 Poikilocytosis LM Ql (Bld) Poikilocytosis [Presence] in Blood by Light microscopy [facility] Schistocytes [Presence] in B lood by Light microscopyOrdered By: Shira Nath on 05-22-2024 Schistocytes LM Ql (Bld) Schistocytes [Presence] in Blood by Light microscopy [facility] Segmented neutrophils/100 WB C Manual cnt (Bld)Ordered By: Shira Nath on 05-22-2024 Segmented neutrophils/100 WBC (Bld) Manual blood segmented neutrophils/100 leukocytes High 50-70 [facility] Variant lymphocytes/100 WBC Manual cnt (Bld)Ordered By: Shira Nath on 05-22-2024 Variant lymphocytes/100 WBC (Bld) Variant lymphocytes/100 leukocytes in Blood by Manual count 0-12 [facility] Basic Metabolic Panelon 05-11 Anion gap [Moles/Vol] 8.7 mmol/L Normal 6.0-15.0 [facility] Comment on above: Performed By: #### B MP ####[address] [address] [facility] Calcium [Mass/Vol] 8.2 mg/dL Low 8.6-10.3 [facility] Comment on above: Performed By: #### B MP ####[address] [address] [facility] Chloride [Moles/Vol] 100 mmol/L Normal 98-107 [facility] Comment on above: Performed By: #### B MP ####[address] [address] [facility] CO2 [Moles/Vol] 33.0 mmol/L High 21.0-31.0 [facility] Comment on above: Performed By: #### B MP ####[address] [address] [facility] Creatinine [Mass/Vol] 1.13 mg/dL Normal 0.70-1.30 [facility] Comment on above: Performed By: #### B MP ####[address] [address] [facility] Creatinine Clr Calc Pharmacy 65.93 Normal [facility] Comment on above: Result Comment: PERF ORMED BY:[address] [place], [place] [phone] MEDICAL DIRECTORFRANCHESCA MAGALLON M.D. Performed By: #### B MP ####[address] [address] [place] GFR/1.73 sq M.predicted MDRD (S/P/Bld) [Vol rate/Area] mL/min/{1.73_m2} Normal [facility] Comment on above: Performed By: #### B MP ####[address] [place] [address] [place] Glucose [Mass/Vol] 119 mg/dL High 70-100 [facility] Comment on above: Result Comment: [place] Glucose Reference Range is dependent on time and content of last meal. Glucose of more than 200 mg/dL in a nonstressed, ambulatory subject supports the diagnosis of Diabetes Mellitus. ADA recommended reference range Performed By: #### B MP ####[address] Potassium [Moles/Vol] 3.7 mmol/L Normal 3.5-5.1 [facility] Comment on above: Performed By: #### B MP ####[address] Sodium [Moles/Vol] 138 mmol/L Normal 136-145 [facility] Comment on above: Performed By: #### B MP ####[address] Urea nitrogen [Mass/Vol] 39 mg/dL High 7-25 [facility] Comment on above: Performed By: #### B MP ####[address] Diff and CBCon 05-21-2024 Anisocytosis Ql (Bld) Slight Normal [facility] Comment on above: Performed By: #### D IFF CBC ####[address] Erythrocyte distribution width (RBC) [Ratio] 16.0 % High 12.0-14.8 [facility] Comment on above: Performed By: #### D IFF CBC ####[address] Hematocrit (Bld) [Volume fraction] 30.3 % Low 38.8-50.0 [facility] Comment on above: Performed By: #### D IFF CBC ####[address] Hemoglobin (Bld) [Mass/Vol] 10.2 g/dL Low 13.0-17.0 [facility] Comment on above: Performed By: #### D IFF CBC ####[place] [id number] [facility] Lymphocytes/100 WBC (Bld) 9 % Low 18-42 [facility] Comment on above: Performed By: #### D IFF CBC ####[address] [address] [facility] MCH (RBC) [Entitic mass] 32.6 pg Normal 27.5-35.2 [facility] Comment on above: Performed By: #### D IFF CBC ####[place] [address] [facility] MCV (RBC) [Entitic vol] 96.8 fL Normal 83.5-101 [facility] Comment on above: Performed By: #### D IFF CBC ####[place] [address] [facility] Mean Corpuscular HGB Conc 33.6 g/dL Normal 32.5-35.6 [facility] Comment on above: Performed By: #### D IFF CBC ####[place] [address] [facility] Metamyelocytes 1 % High 0-0 [facility] Comment on above: Performed By: #### D IFF CBC ####[place] [address] [facility] Monocytes/100 WBC (Bld) 2 % Normal 2-11 [facility] Comment on above: Performed By: #### D IFF CBC ####[place] [address] [facility] Platelet Estimate Normal Normal Normal [facility] Comment on above: Performed By: #### D IFF CBC ####[place] [address] [facility] Platelet mean volume (Bld) [Entitic vol] 8.2 fL Normal 6.6-10.1 [facility] Comment on above: Result Comment: PERF ORMED BY:[address] [place], [place] [phone] MEDICAL DIRECTORFRANCHESCA MAGALLON M.D. Performed By: #### D IFF CBC ####[place] [id number] [facility] Platelet Morphology Normal Normal Normal [facility] Comment on above: Result Comment: PERF ORMED BY:[address] [place], [place] [phone] MEDICAL DIRECTORFRANCHESCA MAGALLON M.D. Performed By: #### D IFF CBC ####[address] [address] [facility] Platelets (Bld) [#/Vol] 324 10*3/uL Normal 150-450 [facility] Comment on above: Performed By: #### D IFF CBC ####[address] [address] [facility] RBC (Bld) [#/Vol] 3.13 10*6/uL Low 3.90-5.60 [facility] Comment on above: Performed By: #### D IFF CBC ####[address] [address] [facility] Segmented neutrophils/100 WBC (Bld) 89 % High 50-70 [facility] Comment on above: Performed By: #### D IFF CBC ####[address] [address] [facility] WBC (Bld) [#/Vol] 25.3 10*3/uL High 4.1-10.5 [facility] Comment on above: Performed By: #### D IFF CBC ####[address] [address] [facility] Glucose Poct Glucometerson 0 05-21-2024 Glucose [Mass/Vol] 245 mg/dL Normal [facility] Comment on above: Result Comment: [place] Glucose Reference Range is dependent on time and content of last meal. Glucose of more than 200 mg/dL in a nonstressed, ambulatory subject supports the diagnosis of Diabetes Mellitus.PERFORMED BY:[address] [place], [place] [phone] MEDICAL DIRECTORFRANCHESCA MAGALLON M.D. Performed By: #### G LULS ####Point of Care testing, Glucose [Mass/Vol] 128 mg/dL Normal [facility] Comment on above: Result Comment: [place] Glucose Reference Range is dependent on time and content of last meal. Glucose of more than 200 mg/dL in a nonstressed, ambulatory subject supports the diagnosis of Diabetes Mellitus.PERFORMED BY:[address] [place] [place], [place] [phone] MEDICAL DIRECTORFRANCHESCA MAGALLON M.D. Performed By: #### G LULS ####Point of Care testing, Glucose [Mass/Vol] 86 mg/dL Normal [facility] Comment on above: Result Comment: [facility] Glucose Reference Range is dependent on time and content of last meal. Glucose of more than 200 mg/dL in a nonstressed, ambulatory subject supports the diagnosis of Diabetes Mellitus.PERFORMED BY:[address] [place], [place] [phone] MEDICAL DIRECTORFRANCHESCA MAGALLON M.D. Performed By: #### G LULS ####Point of Care testing, Glucose [Mass/Vol] 104 mg/dL Normal [facility] Comment on above: Result Comment: [facility] Glucose Reference Range is dependent on time and content of last meal. Glucose of more than 200 mg/dL in a nonstressed, ambulatory subject supports the diagnosis of Diabetes Mellitus.PERFORMED BY:[address] [place], [place] [phone] MEDICAL DIRECTORFRANCHESCA MAGALLON M.D. Performed By: #### G LULS ####Point of Care testing, Metamyelocytes/100 WBC Manua l cnt (Bld)Ordered By: Shira Nath on 05-21-2024 Metamyelocytes/100 WBC (Bld) Metamyelocytes/100 leukocytes in Blood by Manual count High 0-0 [facility] Basic Metabolic Panelon 05-11 Anion gap [Moles/Vol] 10.6 mmol/L Normal 6.0-15.0 [facility] Comment on above: Performed By: #### C TERRELL, BMP ####[place] [id number] [facility] Calcium [Mass/Vol] 8.0 mg/dL Low 8.6-10.3 [facility] Comment on above: Performed By: #### C TERRELL, BMP ####[place] [address] [facility] Chloride [Moles/Vol] 92 mmol/L Low 98-107 [facility] Comment on above: Performed By: #### C TERRELL, BMP ####[place] [address] [facility] CO2 [Moles/Vol] 39.5 mmol/L High 21.0-31.0 [facility] Comment on above: Performed By: #### C TERRELL, BMP ####[place] [address] [facility] Creatinine [Mass/Vol] 1.12 mg/dL Normal 0.70-1.30 [facility] Comment on above: Performed By: #### C TERRELL, BMP ####[place] [address] [facility] Creatinine Clr Calc Pharmacy 66.41 Normal [facility] Comment on above: Result Comment: PERF ORMED BY:[address] [place], [place] [phone] MEDICAL DIRECTORFRANCHESCA MAGALLON M.D. Performed By: #### C TERRELL, BMP ####[address] [address] [facility] GFR/1.73 sq M.predicted MDRD (S/P/Bld) [Vol rate/Area] mL/min/{1.73_m2} Normal [facility] Comment on above: Performed By: #### C TERRELL, BMP ####[place] [address] [facility] Glucose [Mass/Vol] 120 mg/dL High 70-100 [facility] Comment on above: Result Comment: [place] Glucose Reference Range is dependent on time and content of last meal. Glucose of more than 200 mg/dL in a nonstressed, ambulatory subject supports the diagnosis of Diabetes Mellitus. ADA recommended reference range Performed By: #### C BC, BMP ####[place] [id number] [facility] Potassium [Moles/Vol] 3.1 mmol/L Low 3.5-5.1 [facility] Comment on above: Performed By: #### C BC, BMP ####[place] [address] [facility] Sodium [Moles/Vol] 139 mmol/L Normal 136-145 [facility] Comment on above: Performed By: #### C BC, BMP ####[place] [address] [facility] Urea nitrogen [Mass/Vol] 39 mg/dL High 7-25 [facility] Comment on above: Performed By: #### C BC, BMP ####[address] [address] [facility] Complete Blood Count Auto Di ffon 05-20-2024 Basophils (Bld) [#/Vol] 0.1 10*3/uL Normal 0.0-0.2 [facility] Comment on above: Result Comment: PERF ORMED BY:[address] [place], [place] [phone] MEDICAL DIRECTORFRANCHESCA MAGALLON M.D. Performed By: #### C BC, BMP ####[address] [address] [facility] Basophils/100 WBC (Bld) 0.4 % Normal . [facility] Comment on above: Performed By: #### C BC, BMP ####[address] [address] [facility] Eosinophils (Bld) [#/Vol] 0.4 10*3/uL Normal 0.0-0.45 [facility] Comment on above: Performed By: #### C BC, BMP ####[place] [address] [facility] Eosinophils/100 WBC (Bld) 1.8 % Normal . [facility] Comment on above: Performed By: #### C BC, BMP ####[place] [address] [facility] Erythrocyte distribution width (RBC) [Ratio] 15.5 % High 12.0-14.8 [facility] Comment on above: Performed By: #### C BC, BMP ####[place] [address] [facility] Hematocrit (Bld) [Volume fraction] 28.0 % Low 38.8-50.0 [facility] Comment on above: Performed By: #### C BC, BMP ####[place] [address] [facility] Hemoglobin (Bld) [Mass/Vol] 9.5 g/dL Low 13.0-17.0 [facility] Comment on above: Performed By: #### C BC, BMP ####[address] Lymphocytes (Bld) [#/Vol] 1.1 10*3/uL Normal 1.00-4.8 [facility] Comment on above: Performed By: #### C BC, BMP ####[place] [address] [facility] Lymphocytes/100 WBC (Bld) 5.0 % Normal . [facility] Comment on above: Performed By: #### C BC, BMP ####[place] [address] [facility] MCH (RBC) [Entitic mass] 32.9 pg Normal 27.5-35.2 [facility] Comment on above: Performed By: #### C BC, BMP ####[place] [address] [facility] MCV (RBC) [Entitic vol] 97.3 fL Normal 83.5-101 [facility] Comment on above: Performed By: #### C BC, BMP ####[place] [address] [facility] Mean Corpuscular HGB Conc 33.8 g/dL Normal 32.5-35.6 [facility] Comment on above: Performed By: #### C BC, BMP ####[address] [address] [facility] Monocytes (Bld) [#/Vol] 0.6 10*3/uL Normal 0.0-0.8 [facility] Comment on above: Performed By: #### C BC, BMP ####[place] [address] [facility] Monocytes/100 WBC (Bld) 2.8 % Normal . [facility] Comment on above: Performed By: #### C BC, BMP ####[address] Neutrophils (Bld) [#/Vol] 19.0 10*3/uL High 1.8-7.7 [facility] Comment on above: Performed By: #### C BC, BMP ####[place] [address] [facility] Neutrophils/100 WBC (Bld) 90.0 % Normal . [facility] Comment on above: Performed By: #### C BC, BMP ####[place] [address] [facility] NRBC% 0.1 /100{WBC} Normal 0-0.5 [facility] Comment on above: Performed By: #### C BC, BMP ####[place] [address] [facility] Platelet mean volume (Bld) [Entitic vol] 8.4 fL Normal 6.6-10.1 [facility] Comment on above: Performed By: #### C BC, BMP ####[place] [id number] [facility] Platelets (Bld) [#/Vol] 270 10*3/uL Normal 150-450 [facility] Comment on above: Performed By: #### C BC, BMP ####[facility] [place] [address] [facility] RBC (Bld) [#/Vol] 2.88 10*6/uL Low 3.90-5.60 [facility] Comment on above: Performed By: #### C BC, BMP ####[address] [place] [address] [facility] WBC (Bld) [#/Vol] 21.2 10*3/uL High 4.1-10.5 [facility] Comment on above: Performed By: #### C , BMP ####[address] [address] [facility] Glucose Poct Glucometerson 0 - Glucose [Mass/Vol] 148 mg/dL Normal [facility] Comment on above: Result Comment: [place] om Glucose Reference Range is dependent on time and content of last meal. Glucose of more than 200 mg/dL in a nonstressed, ambulatory subject supports the diagnosis of Diabetes Mellitus.PERFORMED BY:[address] [place], [place] [phone] MEDICAL DIRECTORFRANCHESCA MAGALLON M.D. Performed By: #### G LULS ####Point of Care testing, Commemt1 Glu2: Cleaned Meter Normal [facility] Comment on above: Result Comment: PERF ORMED BY:[address] LEMUSHaleyNATALIEM[place], [place] [phone] MEDICAL DIRECTORFRANCHESCA MAGALLON M.D. Performed By: #### G LULS ####Point of Care testing, Glucose [Mass/Vol] 317 mg/dL Normal [facility] Comment on above: Result Comment: [place] om Glucose Reference Range is dependent on time and content of last meal. Glucose of more than 200 mg/dL in a nonstressed, ambulatory subject supports the diagnosis of Diabetes Mellitus. Performed By: #### G LULS ####Point of Care testing, Commemt1 Glu2: Cleaned Meter Normal [facility] Comment on above: Result Comment: PERF ORMED BY:[address] [place], [place] [phone] MEDICAL DIRECTORFRANCHESCA MAGALLON M.D. Performed By: #### G LULS ####Point of Care testing, Glucose [Mass/Vol] 192 mg/dL Normal [facility] Comment on above: Result Comment: [place] om Glucose Reference Range is dependent on time and content of last meal. Glucose of more than 200 mg/dL in a nonstressed, ambulatory subject supports the diagnosis of Diabetes Mellitus. Performed By: #### G LULS ####Point of Care testing, Glucose [Mass/Vol] 94 mg/dL Normal [facility] Comment on above: Result Comment: [place] om Glucose Reference Range is dependent on time and content of last meal. Glucose of more than 200 mg/dL in a nonstressed, ambulatory subject supports the diagnosis of Diabetes Mellitus.PERFORMED BY:[address] [place], [place] [phone] MEDICAL DIRECTORFRANCHESCA MAGALLON M.D. Performed By: #### G LULS ####Point of Care testing, Glucose [Mass/Vol] 137 mg/dL Normal [facility] Comment on above: Result Comment: [place] om Glucose Reference Range is dependent on time and content of last meal. Glucose of more than 200 mg/dL in a nonstressed, ambulatory subject supports the diagnosis of Diabetes Mellitus.PERFORMED BY:[address], [place] [phone] MEDICAL DIRECTORFRANCHESCA MAGALLON M.D. Performed By: #### G LULS ####Point of Care testing, Basic Metabolic Panelon Anion gap [Moles/Vol] 11.0 mmol/L Normal 6.0-15.0 [facility] Comment on above: Performed By: #### C BC, BMP ####[address] [address] [facility] Calcium [Mass/Vol] 8.1 mg/dL Low 8.6-10.3 [facility] Comment on above: Performed By: #### C BC, BMP ####[address] [address] [facility] Chloride [Moles/Vol] 89 mmol/L Low 98-107 [facility] Comment on above: Performed By: #### C BC, BMP ####[address] [address] [facility] CO2 [Moles/Vol] 42.5 mmol/L High 21.0-31.0 [facility] Comment on above: Performed By: #### C BC, BMP ####[address] [address] [facility] Creatinine [Mass/Vol] 0.89 mg/dL Normal 0.70-1.30 [facility] Comment on above: Performed By: #### C BC, BMP ####[address] [address] [facility] Creatinine Clr Calc Pharmacy 83.57 Normal [facility] Comment on above: Result Comment: PERF ORMED BY:[address] [place]ISJaylynHaleyTOW[place], [place] [phone] MEDICAL DIRECTORFRANCHESCA MAGALLON M.D. Performed By: #### C BC, BMP ####[address] [address] [facility] GFR/1.73 sq M.predicted MDRD (S/P/Bld) [Vol rate/Area] mL/min/{1.73_m2} Normal [facility] Comment on above: Performed By: #### C BC, BMP ####[address] [address] [facility] Glucose [Mass/Vol] 87 mg/dL Normal 70-100 [facility] Comment on above: Result Comment: [place] Glucose Reference Range is dependent on time and content of last meal. Glucose of more than 200 mg/dL in a nonstressed, ambulatory subject supports the diagnosis of Diabetes Mellitus. ADA recommended reference range Performed By: #### C BC, BMP ####[address] [address] [facility] Potassium [Moles/Vol] 3.5 mmol/L Normal 3.5-5.1 [facility] Comment on above: Performed By: #### C TERRELL, BMP ####[address] Sodium [Moles/Vol] 139 mmol/L Normal 136-145 [facility] Comment on above: Performed By: #### C TERRELL, BMP ####[address] Urea nitrogen [Mass/Vol] 33 mg/dL High 7-25 [facility] Comment on above: Performed By: #### C TERRELL, BMP ####[address] Complete Blood Count Auto Di ffon 05-19-2024 Basophils (Bld) [#/Vol] 0.0 10*3/uL Normal 0.0-0.2 [facility] Comment on above: Result Comment: PERF ORMED BY:[address] [place], [place] [phone] MEDICAL DIRECTORFRANCHESCA MAGALLON M.D. Performed By: #### C TERRELL, BMP ####[address] Basophils/100 WBC (Bld) 0.1 % Normal . [facility] Comment on above: Performed By: #### C TERRELL, BMP ####[address] Eosinophils (Bld) [#/Vol] 0.0 10*3/uL Normal 0.0-0.45 [facility] Comment on above: Performed By: #### C TERRELL, BMP ####[address] Eosinophils/100 WBC (Bld) 0.0 % Normal . [facility] Comment on above: Performed By: #### C TERRELL, BMP ####[address] Erythrocyte distribution width (RBC) [Ratio] 15.1 % High 12.0-14.8 [facility] Comment on above: Performed By: #### C BC, BMP ####[address] Hematocrit (Bld) [Volume fraction] 27.9 % Low 38.8-50.0 [facility] Comment on above: Performed By: #### C BC, BMP ####[address] Hemoglobin (Bld) [Mass/Vol] 9.5 g/dL Low 13.0-17.0 [facility] Comment on above: Performed By: #### C TERRELL, BMP ####[address] Lymphocytes (Bld) [#/Vol] 1.0 10*3/uL Normal 1.00-4.8 [facility] Comment on above: Performed By: #### C TERRELL, BMP ####[address] Lymphocytes/100 WBC (Bld) 5.6 % Normal . [facility] Comment on above: Performed By: #### C TERRELL, BMP ####[address] MCH (RBC) [Entitic mass] 32.8 pg Normal 27.5-35.2 [facility] Comment on above: Performed By: #### C TERRELL, BMP ####[address] MCV (RBC) [Entitic vol] 96.0 fL Normal 83.5-101 [facility] Comment on above: Performed By: #### C TERRELL, BMP ####[address] Mean Corpuscular HGB Conc 34.1 g/dL Normal 32.5-35.6 [facility] Comment on above: Performed By: #### C BC, BMP ####[address] Monocytes (Bld) [#/Vol] 0.6 10*3/uL Normal 0.0-0.8 [facility] Comment on above: Performed By: #### C TERRELL, BMP ####[address] Monocytes/100 WBC (Bld) 3.2 % Normal . T [facility] Comment on above: Performed By: #### C TERRELL, BMP ####[address] Neutrophils (Bld) [#/Vol] 15.7 10*3/uL High 1.8-7.7 [facility] Comment on above: Performed By: #### C TERRELL, BMP ####[address] Neutrophils/100 WBC (Bld) 91.1 % Normal . [facility] Comment on above: Performed By: #### C TERRELL, BMP ####[address] NRBC% 0.0 /100{WBC} Normal 0-0.5 [facility] Comment on above: Performed By: #### C TERRELL, BMP ####[address] Platelet mean volume (Bld) [Entitic vol] 7.8 fL Normal 6.6-10.1 [facility] Comment on above: Performed By: #### C TERRELL, BMP ####[address] Platelets (Bld) [#/Vol] 265 10*3/uL Normal 150-450 [facility] Comment on above: Performed By: #### C TERRELL, BMP ####[address] RBC (Bld) [#/Vol] 2.91 10*6/uL Low 3.90-5.60 [facility] Comment on above: Performed By: #### C TERRELL, BMP ####[address] WBC (Bld) [#/Vol] 17.2 10*3/uL High 4.1-10.5 [facility] Comment on above: Performed By: #### C BC, [facility] ####[address] [address] [facility] Glucose Poct Glucometerson 0 05-19-2024 Glucose [Mass/Vol] 148 mg/dL Normal [facility] Comment on above: Result Comment: [facility] Glucose Reference Range is dependent on time and content of last meal. Glucose of more than 200 mg/dL in a nonstressed, ambulatory subject supports the diagnosis of Diabetes Mellitus.PERFORMED BY:[address]JaylynHaleyTOWACO, [place] [phone] MEDICAL DIRECTORFRANCHESCA MAGALLON M.D. Performed By: #### G LULS ####Point of Care testing, Glucose [Mass/Vol] 316 mg/dL Normal [facility] Comment on above: Result Comment: [facility] Glucose Reference Range is dependent on time and content of last meal. Glucose of more than 200 mg/dL in a nonstressed, ambulatory subject supports the diagnosis of Diabetes Mellitus.PERFORMED BY:[address] [place]aley[place], [place] [phone] NORMA MAGALLON M.D. Performed By: #### G LULS ####Point of Care testing, Glucose [Mass/Vol] 206 mg/dL Normal [facility] Comment on above: Result Comment: [facility] Glucose Reference Range is dependent on time and content of last meal. Glucose of more than 200 mg/dL in a nonstressed, ambulatory subject supports the diagnosis of Diabetes Mellitus.PERFORMED BY:[address] [place], [place] [phone] MEDICAL DIRECTORFRANCHESCA MAGALLON M.D. Performed By: #### G LULS ####Point of Care testing, Glucose [Mass/Vol] 127 mg/dL Normal [facility] Comment on above: Result Comment: [facility] Glucose Reference Range is dependent on time and content of last meal. Glucose of more than 200 mg/dL in a nonstressed, ambulatory subject supports the diagnosis of Diabetes Mellitus.PERFORMED BY:[place] [address] [address]ALMISJaylynHaleyNATALI[place], [place] [phone] MEDICAL DIRECTORFRANCHESCA MAGALLON M.D. Performed By: #### G LULS ####Point of Care testing, Magnesiumon 05-19-2024 Magnesium [Mass/Vol] 1.9 mg/dL Normal 1.9-2.7 [facility] Comment on above: Order Comment: Comme nt add on to AM labs Result Comment: PERF ORMED BY:[address] [place]ALMISJaylynHaleyNATALIEMANVEL, [place] [phone] MEDICAL DIRECTORFRANCHESCA MAGALLON M.D. Performed By: #### M G ####[address] [address] [facility] Magnesium [Mass/volume] in S kay or PlasmaOrdered By: Jimmy Matias on 05-19-2024 Magnesium [Mass/Vol] Magnesium [Mass/vol ume] in Serum or Plasma 1.9-2.7 [facility] Basic Metabolic Panelon Anion gap [Moles/Vol] 12.1 mmol/L Normal 6.0-15.0 [facility] Comment on above: Order Comment: draw all labs at 0530 Performed By: #### C BC, BMP ####[address] [address] [facility] Calcium [Mass/Vol] 8.4 mg/dL Low 8.6-10.3 [facility] Comment on above: Order Comment: draw all labs at 0530 Performed By: #### C TERRELL, BMP ####[address] [address] [facility] Chloride [Moles/Vol] 92 mmol/L Low 98-107 [facility] Comment on above: Order Comment: draw all labs at 0530 Performed By: #### C TERRELL, BMP ####[address] [address] [facility] CO2 [Moles/Vol] 37.9 mmol/L High 21.0-31.0 [facility] Comment on above: Order Comment: draw all labs at 0530 Performed By: #### C TERRELL, BMP ####[address] [place] [address] [facility] Creatinine [Mass/Vol] 0.82 mg/dL Normal 0.70-1.30 [facility] Comment on above: Order Comment: draw all labs at 0530 Performed By: #### C BC, BMP ####[address] [address] [place] Creatinine Clr Calc Pharmacy 92.14 Normal [facility] Comment on above: Order Comment: draw all labs at 0530 Result Comment: PERF ORMED BY:[address] [place], [place] [phone] MEDICAL DIRECTORFRANCHESCA MAGALLON M.D. Performed By: #### C TERRELL, BMP ####[address] [address] [place] GFR/1.73 sq M.predicted MDRD (S/P/Bld) [Vol rate/Area] mL/min/{1.73_m2} Normal [facility] Comment on above: Order Comment: draw all labs at 0530 Performed By: #### C TERRELL, BMP ####[address] [address] [facility] Glucose [Mass/Vol] 136 mg/dL High 70-100 [facility] Comment on above: Order Comment: draw all labs at 0530 Result Comment: [place] om Glucose Reference Range is dependent on time and content of last meal. Glucose of more than 200 mg/dL in a nonstressed, ambulatory subject supports the diagnosis of Diabetes Mellitus. ADA recommended reference range Performed By: #### C BC, BMP ####[address] [place] [address] [facility] Potassium [Moles/Vol] 4.0 mmol/L Normal 3.5-5.1 [facility] Comment on above: Order Comment: draw all labs at 0530 Performed By: #### C BC, BMP ####[address] [address] [facility] Sodium [Moles/Vol] 138 mmol/L Normal 136-145 [facility] Comment on above: Order Comment: draw all labs at 0530 Performed By: #### C BC, BMP ####[address] [address] [facility] Urea nitrogen [Mass/Vol] 32 mg/dL High 7-25 [facility] Comment on above: Order Comment: draw all labs at 0530 Performed By: #### C TERRELL, BMP ####[address] [address] [facility] Complete Blood Count Auto Di ffon 05-18-2024 Basophils (Bld) [#/Vol] 0.0 10*3/uL Normal 0.0-0.2 [facility] Comment on above: Order Comment: draw all labs at 0530 Result Comment: PERF ORMED BY:[address] [place], [place] [phone] MEDICAL DIRECTORFRANCHESCA MAGALLON M.D. Performed By: #### C TERRELL, BMP ####[place] [id number] [facility] Basophils/100 WBC (Bld) 0.0 % Normal . Angelica swift [facility] Comment on above: Order Comment: draw all labs at 0530 Performed By: #### C TERRELL, BMP ####[place] [id number] [facility] Eosinophils (Bld) [#/Vol] 0.0 10*3/uL Normal 0.0-0.45 [facility] Comment on above: Order Comment: draw all labs at 0530 Performed By: #### C BC, BMP ####[place] [id number] [facility] Eosinophils/100 WBC (Bld) 0.0 % Normal . [facility] Comment on above: Order Comment: draw all labs at 0530 Performed By: #### C BC, BMP ####[address] Erythrocyte distribution width (RBC) [Ratio] 15.6 % High 12.0-14.8 [facility] Comment on above: Order Comment: draw all labs at 0530 Performed By: #### C BC, BMP ####[address] Hematocrit (Bld) [Volume fraction] 30.6 % Low 38.8-50.0 [facility] Comment on above: Order Comment: draw all labs at 0530 Performed By: #### C BC, BMP ####[address] Hemoglobin (Bld) [Mass/Vol] 10.3 g/dL Low 13.0-17.0 [facility] Comment on above: Order Comment: draw all labs at 0530 Performed By: #### C BC, BMP ####[address] Lymphocytes (Bld) [#/Vol] 1.1 10*3/uL Normal 1.00-4.8 [facility] Comment on above: Order Comment: draw all labs at 0530 Performed By: #### C BC, BMP ####[address] Lymphocytes/100 WBC (Bld) 4.9 % Normal . [facility] Comment on above: Order Comment: draw all labs at 0530 Performed By: #### C BC, BMP ####[address] MCH (RBC) [Entitic mass] 32.7 pg Normal 27.5-35.2 [facility] Comment on above: Order Comment: draw all labs at 0530 Performed By: #### C BC, BMP ####[address] MCV (RBC) [Entitic vol] 97.5 fL Normal 83.5-101 [facility] Comment on above: Order Comment: draw all labs at 0530 Performed By: #### C BC, BMP ####[address] Mean Corpuscular HGB Conc 33.5 g/dL Normal 32.5-35.6 [facility] Comment on above: Order Comment: draw all labs at 0530 Performed By: #### C BC, BMP ####[address] Monocytes (Bld) [#/Vol] 0.8 10*3/uL Normal 0.0-0.8 [facility] Comment on above: Order Comment: draw all labs at 0530 Performed By: #### C BC, BMP ####[address] Monocytes/100 WBC (Bld) 3.4 % Normal . T [facility] Comment on above: Order Comment: draw all labs at 0530 Performed By: #### C BC, BMP ####[address] Neutrophils (Bld) [#/Vol] 20.6 10*3/uL High 1.8-7.7 [facility] Comment on above: Order Comment: draw all labs at 0530 Performed By: #### C BC, BMP ####[address] Neutrophils/100 WBC (Bld) 91.7 % Normal . [facility] Comment on above: Order Comment: draw all labs at 0530 Performed By: #### C BC, BMP ####[address] NRBC% 0.0 /100{WBC} Normal 0-0.5 [facility] Comment on above: Order Comment: draw all labs at 0530 Performed By: #### C BC, BMP ####[address] Platelet mean volume (Bld) [Entitic vol] 7.6 fL Normal 6.6-10.1 [facility] Comment on above: Order Comment: draw all labs at 0530 Performed By: #### C BC, BMP ####[facility] [place] [address] [facility] Platelets (Bld) [#/Vol] 306 10*3/uL Normal 150-450 [facility] Comment on above: Order Comment: draw all labs at 0530 Performed By: #### C , BMP ####[address] [place] [address] [facility] RBC (Bld) [#/Vol] 3.14 10*6/uL Low 3.90-5.60 [facility] Comment on above: Order Comment: draw all labs at 0530 Performed By: #### C , BMP ####[address] [place] [address] [facility] WBC (Bld) [#/Vol] 22.5 10*3/uL High 4.1-10.5 [facility] Comment on above: Order Comment: draw all labs at 0530 Performed By: #### C , BMP ####[address] [address] [facility] Glucose Poct Glucometerson 0 - Glucose [Mass/Vol] 253 mg/dL Normal [facility] Comment on above: Result Comment: [facility] Glucose Reference Range is dependent on time and content of last meal. Glucose of more than 200 mg/dL in a nonstressed, ambulatory subject supports the diagnosis of Diabetes Mellitus.PERFORMED BY:[address] [place], [place] [phone] MEDICAL DIRECTORFRANCHESCA MAGALLON M.D. Performed By: #### G LULS ####Point of Care testing, Glucose [Mass/Vol] 261 mg/dL Normal [facility] Comment on above: Result Comment: [facility] Glucose Reference Range is dependent on time and content of last meal. Glucose of more than 200 mg/dL in a nonstressed, ambulatory subject supports the diagnosis of Diabetes Mellitus.PERFORMED BY:[address] [place]ISJaylynHaleyNATAL[place], [place] [phone] NORMA MAGALLON M.D. Performed By: #### G LULS ####Point of Care testing, Commemt1 Glu2: Cleaned Meter Normal [facility] Comment on above: Result Comment: PERF ORMED BY:[place] [address]MISJaylynHaleyNATALI[place], [place] [phone] MEDICAL DIRECTORFRANCHESCA MAGALLON M.D. Performed By: #### G LULS ####Point of Care testing, Glucose [Mass/Vol] 163 mg/dL Normal [facility] Comment on above: Result Comment: [place] om Glucose Reference Range is dependent on time and content of last meal. Glucose of more than 200 mg/dL in a nonstressed, ambulatory subject supports the diagnosis of Diabetes Mellitus. Performed By: #### G LULS ####Point of Care testing, Glucose [Mass/Vol] 130 mg/dL Normal [facility] Comment on above: Result Comment: [place] om Glucose Reference Range is dependent on time and content of last meal. Glucose of more than 200 mg/dL in a nonstressed, ambulatory subject supports the diagnosis of Diabetes Mellitus.PERFORMED BY:[address] [address] [address] [place]ALMISJaylynHaleyNATALIE, [place] [phone] MEDICAL DIRECTORFRANCHESCA MAGALLON M.D. Performed By: #### G LULS ####Point of Care testing, Vancomycin [Mass/volume] in Serum or Plasma --peakOrdered By: Jimmy Matias on 05-18-2024 Vancomycin peak [Mass/Vol] Vancomycin [Mass/volume] in Serum or Plasma --peak High 20.0-40.0 [facility] Comment on above: Last dose: - Vancomycin [Mass/volume] in Serum or Plasma --troughOrdered By: Jimmy Matias on 05-18-2024 Vancomycin trough [Mass/Vol] Serum or plasma trough vancomycin level High 10.0-20.0 [facility] Comment on above: Last dose: - Vancomycin,Peakon 05-18-2024 Vancomycin,Peak 45.4 ug/mL High 20.0-40.0 [facility] Comment on above: Order Comment: Comme nt ?DRAW 1 HOUR AFTER INFUSION COMPLETES draw all labs at 0530 Date of last dose?: [id number] Time of last dose?: 0300 Result Comment: Last dose: -PERFORMED BY:[address] [place], [place] [phone] MEDICAL DIRECTORFRANCHESCA MAGALLON M.D. Performed By: #### V ANCP ####[address] [place] [address] [facility] Vancomycin,Troughon 05-18-19 25 Vancomycin,Trough 22.7 ug/mL High 10.0-20.0 [facility] Comment on above: Result Comment: Last dose: -PERFORMED BY:[address] [place], [place] [phone] MEDICAL DIRECTORFRANCHESCA MAGALLON M.D. Performed By: #### V ANCT ####[address] [address] [facility] X-ray reportOrdered By: Xander Solano on 05-18-2024 Study [place] [address] XRay Report Signed Patient: Juan Simon MR#: [id number] : 1955 Acct:[id number] Age/Sex: 68 / M ADM Date: 4 Loc: Room: [address] [place] [address] Type: ADM IN Attending Dr: Shira Nath MD Copies to: MD Shira Seth MD~ Ordering Provider: Jimmy Matias MD Date of Service: 05/18/24 XR/XR chest 1V portable: persistent hypoxemic respiratory failure XR chest 1V portable 05/18/2024 9:02 AM SIGNS AND SYMPTOMS: ^persistent hypoxemic respiratory failure PROTOCOL: Frontal radiograph of the chest COMPARISON: 05/15/2024 FINDINGS: The trachea is midline. The heart and mediastinal structures are within normal limits. Airspace opacities are noted bilaterally, greatest in the left upper chest. The bony thorax is intact. There is a spinal cord stimulator present posteriorly. XR/XR chest 1V portable IMPRESSION: Airspace opacities are noted bilaterally, greatest in the left upper chest. This is worse when compared to the prior exam. Impression dictated by: Xander Solano M.D.05/18/2024 5:14 PM Dictation Location: [place] [address] Transcribed By: [facility] 05/18/241713 Dictated By: Xander Solano II, MD 05/18/241712 Signed By: 05/18/241713 [facility] Work Phone: XR chest 1V portableon 05-18 XR chest 1V portable Normal [facility] BioFire Not Detectedon 05-17 BioFire Not Detected Not detected Normal Not Detecte [facility] Comment on above: Result Comment: This is a duplicate RP2.1 COVID (PCR) result to be used for statistical tracking purpose only.PERFORMED BY:[address] [place], [place] [phone] MEDICAL DIRECTORFRANCHESCA MAGALLON M.D. Performed By: #### R KOFI PANEL UPP., BIOFIRECOVNOTDE ####[address] [place] [address] [facility] COVID-19 Detected/Not Detect edOrdered By: Jimmy Matias on 05-17-2024 SARS-CoV-2 (COVID-19) RNA MARGARET+non-probe Ql (Nph) Not detected Not Detecte [facility] Comment on above: This is a duplicate RP2.1 COVID (PCR) result to be used for statistical tracking purpose only. Glucose Poct Glucometerson 0 05-17-2024 Glucose [Mass/Vol] 162 mg/dL Normal [facility] Comment on above: Result Comment: [facility] Glucose Reference Range is dependent on time and content of last meal. Glucose of more than 200 mg/dL in a nonstressed, ambulatory subject supports the diagnosis of Diabetes Mellitus.PERFORMED BY:[address] [place], [place] [phone] MEDICAL DIRECTORFRANCHESCA MAGALLON M.D. Performed By: #### G LULS ####Point of Care testing, Glucose [Mass/Vol] 249 mg/dL Normal [facility] Comment on above: Result Comment: [facility] Glucose Reference Range is dependent on time and content of last meal. Glucose of more than 200 mg/dL in a nonstressed, ambulatory subject supports the diagnosis of Diabetes Mellitus.PERFORMED BY:[address] [place], [place] [phone] MEDICAL DIRECTORFRANCHESCA MAGALLON M.D. Performed By: #### G LULS ####Point of Care testing, Glucose [Mass/Vol] 176 mg/dL Normal [facility] Comment on above: Result Comment: [facility] Glucose Reference Range is dependent on time and content of last meal. Glucose of more than 200 mg/dL in a nonstressed, ambulatory subject supports the diagnosis of Diabetes Mellitus.PERFORMED BY:[address] [place], [place] [phone] MEDICAL DIRECTORFRANCHESCA MAGALLON M.D. Performed By: #### G LULS ####Point of Care testing, Glucose [Mass/Vol] 125 mg/dL Normal [facility] Comment on above: Result Comment: [facility] Glucose Reference Range is dependent on time and content of last meal. Glucose of more than 200 mg/dL in a nonstressed, ambulatory subject supports the diagnosis of Diabetes Mellitus.PERFORMED BY:[address] [place], [place] [phone] MEDICAL DIRECTORFRANCHESCA MAGALLON M.D. Performed By: #### G LULS ####Point of Care testing, Respiratory (Upper) Panel, P CRon 05-17-2024 Respiratory (Upper) Panel, PCR Normal [facility] Comment on above: Performed By: #### R KOFI PANEL UPP., BIOFIRECOVNOTDE ####[address] [address] [facility] Respiratory pathogens DNA an d RNA panel - Nasopharynx by MARGARET with non-probe detectionOrdered By: Jimmy Matias on 05-17-2024 Respiratory pathogens DNA and RNA panel MARGARET+non-probe (Nph) Respiratory pathogens DNA and RNA panel - Nasopharynx by MARGARET with non-probe detection [facility] Complete Blood Count Auto Di ffon 05-16-2024 Basophils (Bld) [#/Vol] 0.0 10*3/uL Normal 0.0-0.2 [facility] Comment on above: Result Comment: PERF ORMED BY:[address] [place], [place] [phone] MEDICAL DIRECTORFRANCHESCA MAGALLON M.D. Performed By: #### C MP, CBC ####[address] Basophils/100 WBC (Bld) 0.1 % Normal . T jeniffer [facility] Comment on above: Performed By: #### C MP, CBC ####[address] Eosinophils (Bld) [#/Vol] 0.0 10*3/uL Normal 0.0-0.45 [facility] Comment on above: Performed By: #### C MP, CBC ####[address] Eosinophils/100 WBC (Bld) 0.0 % Normal . [facility] Comment on above: Performed By: #### C MP, CBC ####[address] Erythrocyte distribution width (RBC) [Ratio] 15.1 % High 12.0-14.8 [facility] Comment on above: Performed By: #### C MP, CBC ####[address] Hematocrit (Bld) [Volume fraction] 32.8 % Low 38.8-50.0 [facility] Comment on above: Performed By: #### C MP, CBC ####[address] Hemoglobin (Bld) [Mass/Vol] 10.9 g/dL Low 13.0-17.0 [facility] Comment on above: Performed By: #### C MP, CBC ####[address] Lymphocytes (Bld) [#/Vol] 0.8 10*3/uL Low 1.00-4.8 [facility] Comment on above: Performed By: #### C MP, CBC ####[address] Lymphocytes/100 WBC (Bld) 5.0 % Normal . [facility] Comment on above: Performed By: #### C MP, CBC ####[address] MCH (RBC) [Entitic mass] 32.1 pg Normal 27.5-35.2 [facility] Comment on above: Performed By: #### C MP, CBC ####[address] MCV (RBC) [Entitic vol] 96.3 fL Normal 83.5-101 T [facility] Comment on above: Performed By: #### C MP, CBC ####[address] Mean Corpuscular HGB Conc 33.3 g/dL Normal 32.5-35.6 [facility] Comment on above: Performed By: #### C MP, CBC ####[address] Monocytes (Bld) [#/Vol] 0.6 10*3/uL Normal 0.0-0.8 [facility] Comment on above: Performed By: #### C MP, CBC ####[address] Monocytes/100 WBC (Bld) 3.9 % Normal . [facility] Comment on above: Performed By: #### C MP, CBC ####[address] Neutrophils (Bld) [#/Vol] 15.1 10*3/uL High 1.8-7.7 [facility] Comment on above: Performed By: #### C MP, CBC ####[address] Neutrophils/100 WBC (Bld) 91.0 % Normal . [facility] Comment on above: Performed By: #### C MP, CBC ####[address] NRBC% 0.1 /100{WBC} Normal 0-0.5 [facility] Comment on above: Performed By: #### C MP, CBC ####[address] Platelet mean volume (Bld) [Entitic vol] 7.3 fL Normal 6.6-10.1 [facility] Comment on above: Performed By: #### C MP, CBC ####[address] Platelets (Bld) [#/Vol] 415 10*3/uL Normal 150-450 [facility] Comment on above: Performed By: #### C MP, CBC ####[address] RBC (Bld) [#/Vol] 3.40 10*6/uL Low 3.90-5.60 [facility] Comment on above: Performed By: #### C MP, CBC ####[address] WBC (Bld) [#/Vol] 16.6 10*3/uL High 4.1-10.5 [facility] Comment on above: Performed By: #### C MP, CBC ####[address] Comprehensive Metabolic Pane raudle 05-16-2024 Albumin [Mass/Vol] 3.0 g/dL Low 3.5-5.7 [facility] Comment on above: Performed By: #### C MP, CBC ####[place] [id number] [facility] Albumin/Globulin [Mass ratio] 1.1 {ratio} Normal [facility] Comment on above: Performed By: #### C MP, CBC ####[place] [id number] [facility] ALP [Catalytic activity/Vol] 54 U/L Normal 34-104 [facility] Comment on above: Performed By: #### C MP, CBC ####[place] [id number] [facility] ALT [Catalytic activity/Vol] 25 U/L Normal 7-52 [facility] Comment on above: Performed By: #### C MP, CBC ####[address] Anion gap [Moles/Vol] 15.8 mmol/L High 6.0-15.0 Th e [facility] Comment on above: Performed By: #### C MP, CBC ####[address] AST [Catalytic activity/Vol] 17 U/L Normal 13-39 [facility] Comment on above: Performed By: #### C MP, CBC ####[place] [id number] [facility] Bilirubin [Mass/Vol] 1.1 mg/dL High 0.3-1.0 [facility] Comment on above: Performed By: #### C MP, CBC ####[place] [id number] [facility] Calcium [Mass/Vol] 8.5 mg/dL Low 8.6-10.3 [facility] Comment on above: Performed By: #### C MP, CBC ####[place] [id number] [facility] Chloride [Moles/Vol] 93 mmol/L Low 98-107 [facility] Comment on above: Performed By: #### C MP, CBC ####[address] CO2 [Moles/Vol] 36.9 mmol/L High 21.0-31.0 [facility] Comment on above: Performed By: #### C MP, CBC ####[address] Creatinine [Mass/Vol] 0.90 mg/dL Normal 0.70-1.30 [facility] Comment on above: Performed By: #### C MP, CBC ####[address] Creatinine Clr Calc Pharmacy 83.41 Normal [facility] Comment on above: Result Comment: PERF ORMED BY:[address] [place], [place] [phone] MEDICAL DIRECTORFRANCHESCA MAGALLON M.D. Performed By: #### C MP, CBC ####[address] GFR/1.73 sq M.predicted MDRD (S/P/Bld) [Vol rate/Area] mL/min/{1.73_m2} Normal [facility] Comment on above: Performed By: #### C MP, CBC ####[address] Globulin (S) [Mass/Vol] 2.7 g/dL Normal T [facility] Comment on above: Performed By: #### C MP, CBC ####[address] Glucose [Mass/Vol] 126 mg/dL High 70-100 [facility] Comment on above: Result Comment: [place] Glucose Reference Range is dependent on time and content of last meal. Glucose of more than 200 mg/dL in a nonstressed, ambulatory subject supports the diagnosis of Diabetes Mellitus. ADA recommended reference range Performed By: #### C MP, CBC ####[address] Potassium [Moles/Vol] 3.7 mmol/L Normal 3.5-5.1 [facility] Comment on above: Performed By: #### C MP, CBC ####[place] [address] [place] [address] [facility] Protein [Mass/Vol] 5.7 g/dL Low 6.4-8.9 [facility] Comment on above: Performed By: #### C MP, CBC ####[address] [address] [facility] Sodium [Moles/Vol] 142 mmol/L Normal 136-145 [facility] Comment on above: Performed By: #### C MP, CBC ####[place] [id number] [facility] Urea nitrogen [Mass/Vol] 32 mg/dL High 7-25 [facility] Comment on above: Performed By: #### C MP, CBC ####[place] [id number] [facility] Glucose Poct Glucometerson 0 05-16-2024 Glucose [Mass/Vol] 173 mg/dL Normal [facility] Comment on above: Result Comment: [facility] Glucose Reference Range is dependent on time and content of last meal. Glucose of more than 200 mg/dL in a nonstressed, ambulatory subject supports the diagnosis of Diabetes Mellitus.PERFORMED BY:[address] [place], [place] [phone] MEDICAL DIRECTORFRANCHESCA MAGALLON M.D. Performed By: #### G LULS ####Point of Care testing, Glucose [Mass/Vol] 203 mg/dL Normal [facility] Comment on above: Result Comment: [facility] Glucose Reference Range is dependent on time and content of last meal. Glucose of more than 200 mg/dL in a nonstressed, ambulatory subject supports the diagnosis of Diabetes Mellitus.PERFORMED BY:[address] [place], [place] [phone] MEDICAL DIRECTORFRANCHESCA MAGALLON M.D. Performed By: #### G LULS ####Point of Care testing, Glucose [Mass/Vol] 164 mg/dL Normal [facility] Comment on above: Result Comment: [place] om Glucose Reference Range is dependent on time and content of last meal. Glucose of more than 200 mg/dL in a nonstressed, ambulatory subject supports the diagnosis of Diabetes Mellitus.PERFORMED BY:[address] [place], [place] [phone] MEDICAL DIRECTORFRANCHESCA MAGALLON M.D. Performed By: #### G LULS ####Point of Care testing, Glucose [Mass/Vol] 129 mg/dL Normal [facility] Comment on above: Result Comment: [place] om Glucose Reference Range is dependent on time and content of last meal. Glucose of more than 200 mg/dL in a nonstressed, ambulatory subject supports the diagnosis of Diabetes Mellitus.PERFORMED BY:[address] [place], [place] [phone] MEDICAL DIRECTORFRANCHESCA MAGALLON M.D. Performed By: #### G LULS ####Point of Care testing, MRSA Cultureon 05-16-2024 MRSA Culture MRSA Culture Results No MRSA Isolated 2 Days PERFORMED BY: [facility] [address] [place] [place] [address] PATHOLOGIST DA[employer]Y [employer]OWDER MIXER OPERATOR FRANCHESCA MAGALLON M.D. Normal [facility] Comment on above: Performed By: #### C UMRSA ####[address] [address] [facility] Wound methicillin resistant Staphylococcus aureus (MRSA) cultureOrdered By: Jimmy Matias on 05-16-2024 MRSA isol Org specific cx Ql (Unsp spec) Wound methicillin resistant Staphylococcus aureus (MRSA) culture [facility] Comprehensive Metabolic Pane raudel 05-15-2024 Albumin [Mass/Vol] 3.0 g/dL Low 3.5-5.7 [facility] Comment on above: Performed By: #### C MP ####[place] [id number] [facility] Albumin/Globulin [Mass ratio] 1.1 {ratio} Normal [facility] Comment on above: Performed By: #### C MP ####[address] [address] [place] ALP [Catalytic activity/Vol] 56 U/L Normal 34-104 [facility] Comment on above: Performed By: #### C MP ####[address] ALT [Catalytic activity/Vol] 26 U/L Normal 7-52 [facility] Comment on above: Performed By: #### C MP ####[address] Anion gap [Moles/Vol] 12.8 mmol/L Normal 6.0-15.0 Th e [facility] Comment on above: Performed By: #### C MP ####[address] AST [Catalytic activity/Vol] 19 U/L Normal 13-39 [facility] Comment on above: Performed By: #### C MP ####[address] Bilirubin [Mass/Vol] 0.8 mg/dL Normal 0.3-1.0 [facility] Comment on above: Performed By: #### C MP ####[address] Calcium [Mass/Vol] 8.7 mg/dL Normal 8.6-10.3 [facility] Comment on above: Performed By: #### C MP ####[address] Chloride [Moles/Vol] 94 mmol/L Low 98-107 [facility] Comment on above: Performed By: #### C MP ####[address] CO2 [Moles/Vol] 35.1 mmol/L High 21.0-31.0 [facility] Comment on above: Performed By: #### C MP ####[address] Creatinine [Mass/Vol] 1.01 mg/dL Normal 0.70-1.30 [facility] Comment on above: Performed By: #### C MP ####[address] [address] [facility] Creatinine Clr Calc Pharmacy 74.93 Normal [facility] Comment on above: Result Comment: PERF ORMED BY:[address] [place], [place] [phone] MEDICAL TRESA MAGALLON M.D. Performed By: #### C MP ####[place] [id number] [facility] GFR/1.73 sq M.predicted MDRD (S/P/Bld) [Vol rate/Area] mL/min/{1.73_m2} Normal [facility] Comment on above: Performed By: #### C MP ####[place] [id number] [facility] Globulin (S) [Mass/Vol] 2.7 g/dL Normal T [facility] Comment on above: Performed By: #### C MP ####[place] [id number] [facility] Glucose [Mass/Vol] 142 mg/dL High 70-100 [facility] Comment on above: Result Comment: [facility] Glucose Reference Range is dependent on time and content of last meal. Glucose of more than 200 mg/dL in a nonstressed, ambulatory subject supports the diagnosis of Diabetes Mellitus. ADA recommended reference range Performed By: #### C MP ####[place] [id number] [facility] Potassium [Moles/Vol] 3.9 mmol/L Normal 3.5-5.1 [facility] Comment on above: Performed By: #### C MP ####[place] [address] [facility] Protein [Mass/Vol] 5.7 g/dL Low 6.4-8.9 [facility] Comment on above: Performed By: #### C MP ####[place] [id number] [facility] Sodium [Moles/Vol] 138 mmol/L Normal 136-145 [facility] Comment on above: Performed By: #### C MP ####[place] [id number] [place] [id number] [facility] Urea nitrogen [Mass/Vol] 33 mg/dL High 7-25 [facility] Comment on above: Performed By: #### C MP ####[place] [id number] [facility] Glucose Poct Glucometerson 0 05-15-2024 Glucose [Mass/Vol] 204 mg/dL Normal [facility] Comment on above: Result Comment: [place] Glucose Reference Range is dependent on time and content of last meal. Glucose of more than 200 mg/dL in a nonstressed, ambulatory subject supports the diagnosis of Diabetes Mellitus.PERFORMED BY:[place] [address] [address] [place], [place] [phone] MEDICAL DIRECTORFRANCHESCA MAGALLON M.D. Performed By: #### G LULS ####Point of Care testing, Commemt1 Glu2: Cleaned Meter Normal [facility] Comment on above: Result Comment: PERF ORMED BY:[address] [address] [place], [place] [phone] MEDICAL DIRECTORFRANCHESCA MAGALLON M.D. Performed By: #### G LULS ####Point of Care testing, Glucose [Mass/Vol] 181 mg/dL Normal [facility] Comment on above: Result Comment: [place] om Glucose Reference Range is dependent on time and content of last meal. Glucose of more than 200 mg/dL in a nonstressed, ambulatory subject supports the diagnosis of Diabetes Mellitus. Performed By: #### G LULS ####Point of Care testing, Glucose [Mass/Vol] 134 mg/dL Normal [facility] Comment on above: Result Comment: [place] om Glucose Reference Range is dependent on time and content of last meal. Glucose of more than 200 mg/dL in a nonstressed, ambulatory subject supports the diagnosis of Diabetes Mellitus.PERFORMED BY:[address] [place], [place] [phone] MEDICAL DIRECTORMOGEN MAGALLON M.D. Performed By: #### G LULS ####Point of Care testing, Commemt1 Glu2: Cleaned Meter Normal [facility] Comment on above: Result Comment: PERF ORMED BY:[address] [place], [place] [phone] MEDICAL DIRECTORMOGEN MAGALLON M.D. Performed By: #### G LULS ####Point of Care testing, Glucose [Mass/Vol] 130 mg/dL Normal [facility] Comment on above: Result Comment: [place] om Glucose Reference Range is dependent on time and content of last meal. Glucose of more than 200 mg/dL in a nonstressed, ambulatory subject supports the diagnosis of Diabetes Mellitus. Performed By: #### G LULS ####Point of Care testing, Commemt1 Glu2: Cleaned Meter Normal [facility] Comment on above: Performed By: #### G LULS ####Point of Care testing, Commemt2 SLIDING SCALE COVERA Normal [facility] Comment on above: Result Comment: PERF ORMED BY:[address] [place], [place] [phone] MEDICAL DIRECTORFRANCHESCA MAGALLON M.D. Performed By: #### G LULS ####Point of Care testing, Glucose [Mass/Vol] 283 mg/dL Normal [facility] Comment on above: Result Comment: [place] om Glucose Reference Range is dependent on time and content of last meal. Glucose of more than 200 mg/dL in a nonstressed, ambulatory subject supports the diagnosis of Diabetes Mellitus. Performed By: #### G LULS ####Point of Care testing, No Panel InformationOrdered By: Hilda Ruiz on 05-15-2024 Bedside Glucose #[address] [facility] X-ray reportOrdered By: Xander Solano on 05-15-2024 Study report [facility] [address] [address] XRay Report Signed Patient: Juan Simon MR#: [id number] : 1955 Acct:[id number] Age/Sex: 68 / M ADM Date: 4 Loc: Room: [address] [place] [address] Type: ADM IN Attending Dr: Hilda Ruiz MD Copies to: MD Miladis Clark MD~ Ordering Provider: Miladis Rodriguez MD Date of Service: 05/15/24 XR/XR chest 1V portable: hypoxia XR chest 1V portable 05/15/2024 5:54 AM SIGNS AND SYMPTOMS: ^hypoxia PROTOCOL: Frontal radiograph of the chest COMPARISON: 05/14/2024 FINDINGS: The trachea is midline. The heart and mediastinal structures are within normal limits. Airspace opacities are redemonstrated showing slight interval worseningbilaterally. A spinal cord stimulator is present. The bony thorax is intact. XR/XR chest 1V portable IMPRESSION: Airspace opacities are redemonstrated showing slight interval worsening bilaterally. . Impression dictated by: Xander Solano M.D.05/15/2024 8:50 AM Dictation Location: RADIO--17 Transcribed By: [facility] 05/15/24 0850 Dictated By: Xander Solano II, MD 05/15/24 0848 Signed By: 05/15/[address] [facility] Work Phone: XR chest 1V portableon 05-15 XR chest 1V portable Normal [facility] Aerobic Cultureon 05-14-2024 Aerobic Culture Normal [facility] Comment on above: Performed By: #### G S, AERC ####[facility] [id number] [place] [address] [facility] Bacteria identified Aer cx N om (Unsp spec)Ordered By: Skyler Sanchez on 05-14-[address] [facility] Comprehensive Metabolic Pane raudel 05-14-2024 Albumin [Mass/Vol] 3.0 g/dL Low 3.5-5.7 [facility] Comment on above: Performed By: #### C MP ####[address] Albumin/Globulin [Mass ratio] 1.0 {ratio} Normal [facility] Comment on above: Performed By: #### C MP ####[address] ALP [Catalytic activity/Vol] 64 U/L Normal 34-104 [facility] Comment on above: Performed By: #### C MP ####[address] ALT [Catalytic activity/Vol] 23 U/L Normal 7-52 [facility] Comment on above: Performed By: #### C MP ####[address] Anion gap [Moles/Vol] 10.8 mmol/L Normal 6.0-15.[address] [facility] Comment on above: Performed By: #### C MP ####[address] AST [Catalytic activity/Vol] 21 U/L Normal 13-39 [facility] Comment on above: Performed By: #### C MP ####[address] Bilirubin [Mass/Vol] 0.9 mg/dL Normal 0.3-1.0 [facility] Comment on above: Performed By: #### C MP ####[address] Calcium [Mass/Vol] 8.8 mg/dL Normal 8.6-10.3 [facility] Comment on above: Performed By: #### C MP ####[address] Chloride [Moles/Vol] 95 mmol/L Low 98-107 [facility] Comment on above: Performed By: #### C MP ####[address] CO2 [Moles/Vol] 36.9 mmol/L High 21.0-31.0 [facility] Comment on above: Performed By: #### C MP ####[address] [address] [facility] Creatinine [Mass/Vol] 0.99 mg/dL Normal 0.70-1.30 [facility] Comment on above: Performed By: #### C MP ####[address] [address] [facility] Creatinine Clr Calc Pharmacy 75.29 Normal [facility] Comment on above: Result Comment: PERF ORMED BY:[address] [place], [place] [phone] MEDICAL DIRECTORFRANCHESCA MAGALLON M.D. Performed By: #### C MP ####[place] [id number] [facility] GFR/1.73 sq M.predicted MDRD (S/P/Bld) [Vol rate/Area] mL/min/{1.73_m2} Normal [facility] Comment on above: Performed By: #### C MP ####[place] [id number] [facility] Globulin (S) [Mass/Vol] 3.0 g/dL Normal T [facility] Comment on above: Performed By: #### C MP ####[place] [id number] [facility] Glucose [Mass/Vol] 159 mg/dL High 70-100 [facility] Comment on above: Result Comment: [place] Glucose Reference Range is dependent on time and content of last meal. Glucose of more than 200 mg/dL in a nonstressed, ambulatory subject supports the diagnosis of Diabetes Mellitus. ADA recommended reference range Performed By: #### C MP ####[place] [place] [id number] [facility] Potassium [Moles/Vol] 3.7 mmol/L Normal 3.5-5.1 [facility] Comment on above: Performed By: #### C MP ####[place] [id number] [facility] Protein [Mass/Vol] 6.0 g/dL Low 6.4-8.9 [facility] Comment on above: Performed By: #### C MP ####[place] [id number] [facility] Sodium [Moles/Vol] 139 mmol/L Normal 136-145 [facility] Comment on above: Performed By: #### C MP ####[place] [id number] [facility] Urea nitrogen [Mass/Vol] 30 mg/dL High 7-25 [facility] Comment on above: Performed By: #### C MP ####[place] [id number] [facility] ECG 12 lead ECGon 05-14-2024 ECG 12 lead ECG Normal [facility] Glucose Poct Glucometerson 0 05-14-2024 Glucose [Mass/Vol] 160 mg/dL Normal [facility] Comment on above: Result Comment: [place] Glucose Reference Range is dependent on time and content of last meal. Glucose of more than 200 mg/dL in a nonstressed, ambulatory subject supports the diagnosis of Diabetes Mellitus.PERFORMED BY:[address] [place]ISJaylynaHley[place], [place] [phone] MEDICAL DIRECTORFRANCHESCA MAGALLON M.D. Performed By: #### G LULS ####Point of Care testing, Commemt1 Glu2: Cleaned Meter Normal [facility] Comment on above: Result Comment: PERF ORMED BY:[address] [place], [place] [phone] MEDICAL DIRECTORFRANCHESCA MAGALLON M.D. Performed By: #### G LULS ####Point of Care testing, Glucose [Mass/Vol] 153 mg/dL Normal [facility] Comment on above: Result Comment: [place] Glucose Reference Range is dependent on time and content of last meal. Glucose of more than 200 mg/dL in a nonstressed, ambulatory subject supports the diagnosis of Diabetes Mellitus. Performed By: #### G LULS ####Point of Care testing, Commemt1 Glu2: Cleaned Meter Normal [facility] Comment on above: Result Comment: PERF ORMED BY:[facility] [place], [place] [phone] MEDICAL DIRECTORFRANCHESCA MAGALLON M.D. Performed By: #### G LULS ####Point of Care testing, Glucose [Mass/Vol] 136 mg/dL Normal [facility] Comment on above: Result Comment: [facility] Glucose Reference Range is dependent on time and content of last meal. Glucose of more than 200 mg/dL in a nonstressed, ambulatory subject supports the diagnosis of Diabetes Mellitus. Performed By: #### G LULS ####Point of Care testing, Gram Stainon 05-14-2024 Microscopic observation Gram stain Nom (Unsp spec) Gram Stain Result Rare Gram Negative Bacilli Rare White Blood Cells Rare Epithelial Cells PERFORMED BY: [facility] [address] [place] [address] PATHOLOGIST DAIRY POWDER MIXER OPERATOR FRANCHESCA MAGALLON M.D. Normal [facility] Comment on above: Performed By: #### G S, AERC ####[address] [address] [facility] Gram stain microscopyOrdered By: Skyler Sanchez on 05-14-2024 Microscopic observation Gram stain Nom (Unsp spec) Gram stain microscopy [facility] Hemogram CBC Without Diffon 05-14-2024 Erythrocyte distribution width (RBC) [Ratio] 14.8 % Normal 12.0-14.8 [facility] Comment on above: Performed By: #### C BCNO ####[place] [id number] [facility] Hematocrit (Bld) [Volume fraction] 35.1 % Low 38.8-50.0 [facility] Comment on above: Performed By: #### C BCNO ####[address] [address] [facility] Hemoglobin (Bld) [Mass/Vol] 11.7 g/dL Low 13.0-17.0 [facility] Comment on above: Performed By: #### C BCNO ####[place] [id number] [facility] MCH (RBC) [Entitic mass] 32.1 pg Normal 27.5-35.2 [facility] Comment on above: Performed By: #### C BCNO ####[place] [id number] [facility] MCV (RBC) [Entitic vol] 96.6 fL Normal 83.5-101 T [facility] Comment on above: Performed By: #### C BCNO ####[place] [id number] [facility] Mean Corpuscular HGB Conc 33.2 g/dL Normal 32.5-35.6 [facility] Comment on above: Performed By: #### C BCNO ####[place] [id number] [facility] Platelet mean volume (Bld) [Entitic vol] 7.0 fL Normal 6.6-10.1 [facility] Comment on above: Result Comment: PERF ORMED BY:[address] [place]ISJaylynHaleyNATALIE, [place] [phone] MEDICAL DIRECTORFRANCHESCA MAGALLON M.D. Performed By: #### C BCNO ####[place] [id number] [facility] Platelets (Bld) [#/Vol] 516 10*3/uL High 150-450 [facility] Comment on above: Performed By: #### C BCNO ####[place] [id number] [facility] RBC (Bld) [#/Vol] 3.64 10*6/uL Low 3.90-5.60 [facility] Comment on above: Performed By: #### C BCNO ####[place] [id number] [facility] WBC (Bld) [#/Vol] 16.3 10*3/uL High 4.1-10.5 [facility] Comment on above: Performed By: #### C BCNO ####[place] [address] [place] [phone] [facility] X-ray reportOrdered By: Xander Solano on 05-14-2024 Study report [facility] [address] [place] [address] XRay Report Signed Patient: Juan Simon MR#: [id number] : 1955 Acct:[id number] Age/Sex: 68 / M ADM Date: 4 Loc: Room: [address] [place] [address] Type: ADM IN Attending Dr: Hilda Ruiz MD Copies to: MD Miladis Clark MD~ Ordering Provider: Miladis Rodriguez MD Date of Service: 05/14/24 XR/XR chest 1V portable: pneumonia XR chest 1V portable 05/13/2024 5:10 PM SIGNS AND SYMPTOMS: Hypoxia PROTOCOL: Frontal radiograph of the chest COMPARISON: 05/13/2024 FINDINGS: The trachea is midline. The heart and mediastinal structures are within normal limits. Airspace opacities are present bilaterally similar to the prior exam. Spinal cord stimulator is redemonstrated. The bony thorax is intact. XR/XR chest 1V portable IMPRESSION: No acute cardiopulmonary pathology. Impression dictated by: Xander Solano M.D.05/14/2024 8:19 AM Dictation Location: [place] [address] Transcribed By: [facility] 05/14/24818 Dictated By: Xander Solano II, MD 05/14/24816 Signed By: 05/14/24818 [facility] Work Phone: XR chest 1V portableon 05-14 XR chest 1V portable Normal [facility] Arterial Blood Gason 025 ABG Base Excess 8.5 mmol/L High -3.0-3.0 [facility] Comment on above: Performed By: #### A BG ####Point of Care testing, ABG Frac Inspired O2 85 % Normal [facility] Comment on above: Performed By: #### A BG ####Point of Care testing, ABG Oxygen Content 7.0 mmol/L Normal 6.6-9.7 [facility] Comment on above: Performed By: #### A BG ####Point of Care testing, ABG Oxygen Saturation 96.2 % Normal 95.0-100.0 [facility] Comment on above: Performed By: #### A BG ####Point of Care testing, ABG PCO2 47.5 mm[Hg] High 35.0-45.0 [facility] Comment on above: Performed By: #### A BG ####Point of Care testing, ABG PH 7.47 High 7.35-7.45 [facility] Comment on above: Performed By: #### A BG ####Point of Care testing, ABG PO2 86.4 mm[Hg] Normal 80.0-100.0 [facility] Comment on above: Performed By: #### A BG ####Point of Care testing, Oxygen Device High Flow Normal [facility] Comment on above: Performed By: #### A BG ####Point of Care testing, Respiratory Critical Normal [facility] Comment on above: Result Comment: Crit ical Value called on: 05/13/2024 at 05:43PERFORMED BY:[place] [id number] [place], [place] [phone] MEDICAL DIRECTORFRANCHESCA MAGALLON M.D. Performed By: #### A BG ####Point of Care testing, VBG Draw Site Right Radial Normal [facility] Comment on above: Performed By: #### A BG ####Point of Care testing, Arterial Blood GasOrdered By : Hilda Ruzi on 05-13-2024 CO2 [Moles/Vol] 34.9 mmol/L High 23.0-27.0 [facility] Comment on above: Performed By: #### A BG ####Point of Care testing, HCO3 (Bld) [Moles/Vol] 33.4 mmol/L High 23.0-29.0 [facility] Comment on above: Performed By: #### A BG ####Point of Care testing, CT head/brain wo conon 05-13 CT head/brain wo con Normal [facility] Complete Blood Count Auto Di ffon 05-13-2024 Basophils (Bld) [#/Vol] 0.0 10*3/uL Normal 0.0-0.2 [facility] Comment on above: Order Comment: PER R N ELLIOT WILL CALL WHEN PT IS CALM DOWN. Result Comment: PERF ORMED BY:[address] [place], [place] [phone] MEDICAL DIRECTORFRANCHESCA MAGALLON M.D. Performed By: #### C BC, MG, CMP ####[address] Basophils/100 WBC (Bld) 0.1 % Normal . T jeniffer [facility] Comment on above: Order Comment: PER R N ELLIOT WILL CALL WHEN PT IS CALM DOWN. Performed By: #### C BC, MG, CMP ####[address] Eosinophils (Bld) [#/Vol] 0.0 10*3/uL Normal 0.0-0.45 [facility] Comment on above: Order Comment: PER R N ELLIOT WILL CALL WHEN PT IS CALM DOWN. Performed By: #### C BC, MG, CMP ####[address] Performed By: #### C MP, MG, LACTIC, PRL, SCAN CBC ####[address] Eosinophils/100 WBC (Bld) 0.0 % Normal . [facility] Comment on above: Order Comment: PER R N ELLIOT WILL CALL WHEN PT IS CALM DOWN. Performed By: #### C BC, MG, CMP ####[address] Performed By: #### C MP, MG, LACTIC, PRL, SCAN CBC ####[address] Erythrocyte distribution width (RBC) [Ratio] 15.0 % High 12.0-14.8 [facility] Comment on above: Order Comment: PER R N ELLIOT WILL CALL WHEN PT IS CALM DOWN. Performed By: #### C BC, MG, CMP ####[address] Hematocrit (Bld) [Volume fraction] 33.6 % Low 38.8-50.0 [facility] Comment on above: Order Comment: PER R N ELLIOT WILL CALL WHEN PT IS CALM DOWN. Performed By: #### C BC, MG, CMP ####[address] Hemoglobin (Bld) [Mass/Vol] 11.5 g/dL Low 13.0-17.0 [facility] Comment on above: Order Comment: PER R N ELLIOT WILL CALL WHEN PT IS CALM DOWN. Performed By: #### C BC, MG, CMP ####[address] Lymphocytes (Bld) [#/Vol] 1.4 10*3/uL Normal 1.00-4.8 [facility] Comment on above: Order Comment: PER R N ELLIOT WILL CALL WHEN PT IS CALM DOWN. Performed By: #### C BC, MG, CMP ####[address] Lymphocytes/100 WBC (Bld) 9.2 % Normal . [facility] Comment on above: Order Comment: PER R N ELLIOT WILL CALL WHEN PT IS CALM DOWN. Performed By: #### C BC, MG, CMP ####[address] MCH (RBC) [Entitic mass] 32.4 pg Normal 27.5-35.2 [facility] Comment on above: Order Comment: PER R N ELLIOT WILL CALL WHEN PT IS CALM DOWN. Performed By: #### C BC, MG, CMP ####[address] MCV (RBC) [Entitic vol] 94.6 fL Normal 83.5-101 [facility] Comment on above: Order Comment: PER R N ELLIOT WILL CALL WHEN PT IS CALM DOWN. Performed By: #### C BC, MG, CMP ####[address] Mean Corpuscular HGB Conc 34.3 g/dL Normal 32.5-35.6 [facility] Comment on above: Order Comment: PER R N ELLIOT WILL CALL WHEN PT IS CALM DOWN. Performed By: #### C BC, MG, CMP ####[address] Monocytes (Bld) [#/Vol] 0.5 10*3/uL Normal 0.0-0.8 [facility] Comment on above: Order Comment: PER R N ELLIOT WILL CALL WHEN PT IS CALM DOWN. Performed By: #### C BC, MG, CMP ####[address] Monocytes/100 WBC (Bld) 3.2 % Normal . [facility] Comment on above: Order Comment: PER R N ELLIOT WILL CALL WHEN PT IS CALM DOWN. Performed By: #### C BC, MG, CMP ####[address] Neutrophils (Bld) [#/Vol] 13.6 10*3/uL High 1.8-7.7 [facility] Comment on above: Order Comment: PER R N ELLIOT WILL CALL WHEN PT IS CALM DOWN. Performed By: #### C BC, MG, CMP ####[address] Neutrophils/100 WBC (Bld) 87.5 % Normal . [facility] Comment on above: Order Comment: PER R N ELLIOT WILL CALL WHEN PT IS CALM DOWN. Performed By: #### C BC, MG, CMP ####[address] NRBC% 0.1 /100{WBC} Normal 0-0.5 [facility] Comment on above: Order Comment: PER R N ELLIOT WILL CALL WHEN PT IS CALM DOWN. Performed By: #### C BC, MG, CMP ####[address] Platelet mean volume (Bld) [Entitic vol] 6.7 fL Normal 6.6-10.1 [facility] Comment on above: Order Comment: PER R N ELLIOT WILL CALL WHEN PT IS CALM DOWN. Performed By: #### C BC, MG, CMP ####[place] [id number] [facility] Platelets (Bld) [#/Vol] 505 10*3/uL High 150-450 [facility] Comment on above: Order Comment: PER R N ELLIOT WILL CALL WHEN PT IS CALM DOWN. Performed By: #### C BC, MG, CMP ####[address] RBC (Bld) [#/Vol] 3.56 10*6/uL Low 3.90-5.60 [facility] Comment on above: Order Comment: PER R N ELLIOT WILL CALL WHEN PT IS CALM DOWN. Performed By: #### C BC, MG, CMP ####[address] WBC (Bld) [#/Vol] 15.6 10*3/uL High 4.1-10.5 [facility] Comment on above: Order Comment: PER R N ELLIOT WILL CALL WHEN PT IS CALM DOWN. Performed By: #### C BC, MG, CMP ####[place] [id number] [facility] Comprehensive Metabolic Pane raudel 05-13-2024 Albumin [Mass/Vol] 2.9 g/dL Low 3.5-5.7 [facility] Comment on above: Order Comment: PER R N ELLIOT WILL CALL WHEN PT IS CALM DOWN. Performed By: #### C BC, MG, CMP ####[address] Performed By: #### C MP, MG, LACTIC, PRL, SCAN CBC ####[address] Albumin/Globulin [Mass ratio] 0.9 {ratio} Normal [facility] Comment on above: Order Comment: PER R N ELLIOT WILL CALL WHEN PT IS CALM DOWN. Performed By: #### C BC, MG, CMP ####[address] Albumin/Globulin [Mass ratio] 1.0 {ratio} Normal [facility] Comment on above: Order Comment: PER R N ELLIOT WILL CALL WHEN PT IS CALM DOWN. Performed By: #### C MP, MG, LACTIC, PRL, SCAN CBC ####[address] ALP [Catalytic activity/Vol] 66 U/L Normal 34-104 [facility] Comment on above: Order Comment: PER R N ELLIOT WILL CALL WHEN PT IS CALM DOWN. Performed By: #### C BC, MG, CMP ####[address] Performed By: #### C MP, MG, LACTIC, PRL, SCAN CBC ####[address] ALT [Catalytic activity/Vol] 20 U/L Normal 7-52 [facility] Comment on above: Order Comment: PER R N ELLIOT WILL CALL WHEN PT IS CALM DOWN. Performed By: #### C BC, MG, CMP ####[place] [id number] [facility] ALT [Catalytic activity/Vol] 19 U/L Normal 7-52 [facility] Comment on above: Order Comment: PER R N ELLIOT WILL CALL WHEN PT IS CALM DOWN. Performed By: #### C MP, MG, LACTIC, PRL, SCAN CBC ####[place] [id number] [facility] Anion gap [Moles/Vol] 10.7 mmol/L Normal 6.0-15.[address] [facility] Comment on above: Order Comment: PER R N ELLIOT WILL CALL WHEN PT IS CALM DOWN. Performed By: #### C BC, MG, CMP ####[address] Anion gap [Moles/Vol] 12.0 mmol/L Normal 6.0-15.0 [facility] Comment on above: Order Comment: PER R N ELLIOT WILL CALL WHEN PT IS CALM DOWN. Performed By: #### C MP, MG, LACTIC, PRL, SCAN CBC ####[address] AST [Catalytic activity/Vol] 16 U/L Normal 13-39 [facility] Comment on above: Order Comment: PER R N ELLIOT WILL CALL WHEN PT IS CALM DOWN. Performed By: #### C BC, MG, CMP ####[address] Performed By: #### C MP, MG, LACTIC, PRL, SCAN CBC ####[address] Bilirubin [Mass/Vol] 0.7 mg/dL Normal 0.3-1.0 [facility] Comment on above: Order Comment: PER R N ELLIOT WILL CALL WHEN PT IS CALM DOWN. Performed By: #### C BC, MG, CMP ####[address] Performed By: #### C MP, MG, LACTIC, PRL, SCAN CBC ####[address] Calcium [Mass/Vol] 8.7 mg/dL Normal 8.6-10.3 [facility] Comment on above: Order Comment: PER R N ELLIOT WILL CALL WHEN PT IS CALM DOWN. Performed By: #### C BC, MG, CMP ####[address] Calcium [Mass/Vol] 8.6 mg/dL Normal 8.6-10.3 [facility] Comment on above: Order Comment: PER R N ELLIOT WILL CALL WHEN PT IS CALM DOWN. Performed By: #### C MP, MG, LACTIC, PRL, SCAN CBC ####[address] Chloride [Moles/Vol] 96 mmol/L Low 98-107 [facility] Comment on above: Order Comment: PER R N ELLIOT WILL CALL WHEN PT IS CALM DOWN. Performed By: #### C BC, MG, CMP ####[address] Performed By: #### C MP, MG, LACTIC, PRL, SCAN CBC ####[address] CO2 [Moles/Vol] 35.0 mmol/L High 21.0-31.0 [facility] Comment on above: Order Comment: PER R N ELLIOT WILL CALL WHEN PT IS CALM DOWN. Performed By: #### C BC, MG, CMP ####[address] CO2 [Moles/Vol] 33.7 mmol/L High 21.0-31.0 [facility] Comment on above: Order Comment: PER R N ELLIOT WILL CALL WHEN PT IS CALM DOWN. Performed By: #### C MP, MG, LACTIC, PRL, SCAN CBC ####[address] Creatinine [Mass/Vol] 0.96 mg/dL Normal 0.70-1.30 [facility] Comment on above: Order Comment: PER R N ELLIOT WILL CALL WHEN PT IS CALM DOWN. Performed By: #### C BC, MG, CMP ####[address] Creatinine [Mass/Vol] 0.93 mg/dL Normal 0.70-1.30 [facility] Comment on above: Order Comment: PER R N ELLIOT WILL CALL WHEN PT IS CALM DOWN. Performed By: #### C MP, MG, LACTIC, PRL, SCAN CBC ####[address] Creatinine Clr Calc Pharmacy 78.75 Normal [facility] Comment on above: Order Comment: PER R N ELLIOT WILL CALL WHEN PT IS CALM DOWN. Performed By: #### C BC, MG, CMP ####[address] Creatinine Clr Calc Pharmacy 81.29 Normal [facility] Comment on above: Order Comment: PER R N ELLIOT WILL CALL WHEN PT IS CALM DOWN. Performed By: #### C MP, MG, LACTIC, PRL, SCAN CBC ####[address] GFR/1.73 sq M.predicted MDRD (S/P/Bld) [Vol rate/Area] mL/min/{1.73_m2} Normal [facility] Comment on above: Order Comment: PER R N ELLIOT WILL CALL WHEN PT IS CALM DOWN. Performed By: #### C BC, MG, CMP ####[address] Performed By: #### C MP, MG, LACTIC, PRL, SCAN CBC ####[address] Globulin (S) [Mass/Vol] 3.1 g/dL Normal [facility] Comment on above: Order Comment: PER R N ELLIOT WILL CALL WHEN PT IS CALM DOWN. Performed By: #### C BC, MG, CMP ####[address] Globulin (S) [Mass/Vol] 3.0 g/dL Normal [facility] Comment on above: Order Comment: PER R N ELLIOT WILL CALL WHEN PT IS CALM DOWN. Performed By: #### C MP, MG, LACTIC, PRL, SCAN CBC ####[address] Glucose [Mass/Vol] 136 mg/dL High 70-100 [facility] Comment on above: Order Comment: PER R N ELLIOT WILL CALL WHEN PT IS CALM DOWN. Result Comment: [place] Glucose Reference Range is dependent on time and content of last meal. Glucose of more than 200 mg/dL in a nonstressed, ambulatory subject supports the diagnosis of Diabetes Mellitus. ADA recommended reference range Performed By: #### C BC, MG, CMP ####[address] Performed By: #### C MP, MG, LACTIC, PRL, SCAN CBC ####[address] Potassium [Moles/Vol] 3.7 mmol/L Normal 3.5-5.1 [facility] Comment on above: Order Comment: PER R N ELLIOT WILL CALL WHEN PT IS CALM DOWN. Performed By: #### C BC, MG, CMP ####[address] Performed By: #### C MP, MG, LACTIC, PRL, SCAN CBC ####[address] Protein [Mass/Vol] 6.0 g/dL Low 6.4-8.9 [facility] Comment on above: Order Comment: PER R N ELLIOT WILL CALL WHEN PT IS CALM DOWN. Performed By: #### C BC, MG, CMP ####[address] Protein [Mass/Vol] 5.9 g/dL Low 6.4-8.9 [facility] Comment on above: Order Comment: PER R N ELLIOT WILL CALL WHEN PT IS CALM DOWN. Performed By: #### C MP, MG, LACTIC, PRL, SCAN CBC ####[address] Sodium [Moles/Vol] 138 mmol/L Normal 136-145 [facility] Comment on above: Order Comment: PER R N ELLIOT WILL CALL WHEN PT IS CALM DOWN. Performed By: #### C BC, MG, CMP ####[address] Performed By: #### C MP, MG, LACTIC, PRL, SCAN CBC ####[address] Urea nitrogen [Mass/Vol] 28 mg/dL High 7-25 [facility] Comment on above: Order Comment: PER R N ELLIOT WILL CALL WHEN PT IS CALM DOWN. Performed By: #### C BC, MG, CMP ####[place] [id number] [place] [address] [facility] Urea nitrogen [Mass/Vol] 27 mg/dL High 7-25 [facility] Comment on above: Order Comment: PER R N ELLIOT WILL CALL WHEN PT IS CALM DOWN. Performed By: #### C MP, MG, LACTIC, PRL, SCAN CBC ####[address] [address] [facility] Creatine Kinaseon 05-13-2024 CK [Catalytic activity/Vol] 20 U/L Low 30-223 [facility] Comment on above: Result Comment: PERF ORMED BY:[place] [address] [address] [place], [place] [id number] MEDICAL DIRECTORFRANCHESCA MAGALLON M.D. Performed By: #### C K ####[address] [address] [facility] Creatine kinase [Enzymatic a ctivity/volume] in Serum or PlasmaOrdered By: Moris Quarles on 05-13-2024 CK [Catalytic activity/Vol] Creatine kinase [Enzymatic activity/volume] in Serum or Plasma Low 30-223 [facility] ECG 12 lead ECGon 05-13-2024 ECG 12 lead ECG Normal [facility] Glucose Poct Glucometerson 0 05-13-2024 Glucose [Mass/Vol] 204 mg/dL Normal [facility] Comment on above: Result Comment: [place] Glucose Reference Range is dependent on time and content of last meal. Glucose of more than 200 mg/dL in a nonstressed, ambulatory subject supports the diagnosis of Diabetes Mellitus.PERFORMED BY:[place] [address] [place], [place] [id number] MEDICAL TRESA MAGALLON M.D. Performed By: #### G LULS ####Point of Care testing, Glucose [Mass/Vol] 162 mg/dL Normal [facility] Comment on above: Result Comment: [place] om Glucose Reference Range is dependent on time and content of last meal. Glucose of more than 200 mg/dL in a nonstressed, ambulatory subject supports the diagnosis of Diabetes Mellitus.PERFORMED BY:[address] [place]ALMISJaylynHaleyNATALIE, [place] [phone] MEDICAL DIRECTORFRANCHESCA MAGALLON M.D. Performed By: #### G LULS ####Point of Care testing, Glucose [Mass/Vol] 185 mg/dL Normal [facility] Comment on above: Result Comment: [place] om Glucose Reference Range is dependent on time and content of last meal. Glucose of more than 200 mg/dL in a nonstressed, ambulatory subject supports the diagnosis of Diabetes Mellitus.PERFORMED BY:[address] [place], [place] [phone] MEDICAL DIRECTORFRANCHESCA MAGALLON M.D. Performed By: #### G LULS ####Point of Care testing, Glucose [Mass/Vol] 164 mg/dL Normal [facility] Comment on above: Result Comment: [place] om Glucose Reference Range is dependent on time and content of last meal. Glucose of more than 200 mg/dL in a nonstressed, ambulatory subject supports the diagnosis of Diabetes Mellitus.PERFORMED BY:[place] [address] [address] [place], [place] [phone] MEDICAL DIRECTORFRANCHESCA MAGALLON M.D. Performed By: #### G LULS ####Point of Care testing, Lactate [Moles/volume] in Se rum or PlasmaOrdered By: Moris Quarles on 05-13-2024 Lactate [Moles/Vol] Lactate [Moles/volum e] in Serum or Plasma 0.5-2.2 [facility] Lactic Acidon 05-13-2024 Lactate [Moles/Vol] 1.6 mmol/L Normal 0.5-2.2 [facility] Comment on above: Order Comment: PER Deana ZARATE WILL CALL WHEN PT IS CALM DOWN. Result Comment: PERF ORMED BY:[address] KOEHLERJAMIESON, [place] [phone] MEDICAL DIRECTORFRANCHESCA MAGALLON M.D. Performed By: #### C MP, MG, LACTIC, PRL, SCAN CBC ####[facility] [id number] [place] [id number] [facility] Magnesiumon 05-13-2024 Magnesium [Mass/Vol] 2.1 mg/dL Normal 1.9-2.7 [facility] Comment on above: Order Comment: PER R Phuc ZARATE WILL CALL WHEN PT IS CALM DOWN. Result Comment: PERF ORMED BY:[address] [place], [place] [phone] MEDICAL DIRECTORFRANCHESCA MAGALLON M.D. Performed By: #### C BC, MG, CMP ####[place] [id number] Performed By: #### C MP, MG, LACTIC, PRL, SCAN CBC ####[facility] Jar9390 [address] No Panel InformationOrdered By: Hilda Ruiz on 05-13-2024 Arterial Blood Base Excess 8.5 mmol/L High -3.0-3.0 [facility] Arterial Blood Oxygen Content 7.0 mmol/L 6.6-9.7 [facility] Arterial Blood Oxygen Saturation 96.2 % 95.0-100.0 [facility] Arterial Blood Partial Pressure CO2 47.5 mm[Hg] High 35.0-45.0 [facility] Arterial Blood Partial Pressure O2 86.4 mm[Hg] 80.0-100.0 [facility] Arterial Blood pH 7.47 High 7.35-7.45 [facility] Blood Gas Critical Value See comment [facility] Comment on above: Critical Value almendarez d on: 05/13/2024 at 05:43 Blood Gas Sample Site Right radial F [facility] FiO2 85 % [facility] Oxygen Delivery Device High flow Fi [facility] Polychromasia [Presence] in Blood by Light microscopyOrdered By: Moris Quarles on 05-13-2024 Polychromasia LM Ql (Bld) Polychromasia [Presence] in Blood by Light microscopy [facility] Prolactinon 05-13-2024 Prolactin 68.03 ng/mL High 2.64-13.13 [facility] Comment on above: Order Comment: PER R N ELLIOT WILL CALL WHEN PT IS CALM DOWN. Result Comment: PERF ORMED BY:[address] [place], [place] [phone] MEDICAL DIRECTORFRANCHESCA MAGALLON M.D. Performed By: #### C MP, MG, LACTIC, PRL, SCAN CBC ####[address] [address] [facility] Prolactin [Mass/volume] in S kay or PlasmaOrdered By: Moris Quarles on 05-13-2024 Prolactin [Mass/Vol] Prolactin [Mass/vol ume] in Serum or Plasma High 2.64-13.13 [facility] Rouleaux [Presence] in Blood by Light microscopyOrdered By: Moris Quarles on 05-13-2024 Rouleaux LM Ql (Bld) Rouleaux detection [facility] Scan and CBCon 05-13-2024 Anisocytosis Ql (Bld) Slight Normal [facility] Comment on above: Order Comment: PER R N ELLIOT WILL CALL WHEN PT IS CALM DOWN. Performed By: #### C MP, MG, LACTIC, PRL, SCAN CBC ####[place] [phone] [facility] Basophils (Bld) [#/Vol] 0.2 10*3/uL Normal 0.0-0.2 [facility] Comment on above: Order Comment: PER R N ELLIOT WILL CALL WHEN PT IS CALM DOWN. Performed By: #### C MP, MG, LACTIC, PRL, SCAN CBC ####[place] [phone] [facility] Basophils/100 WBC (Bld) 1.5 % Normal . [facility] Comment on above: Order Comment: PER R N ELLIOT WILL CALL WHEN PT IS CALM DOWN. Performed By: #### C MP, MG, LACTIC, PRL, SCAN CBC ####[address] Erythrocyte distribution width (RBC) [Ratio] 15.2 % High 12.0-14.8 [facility] Comment on above: Order Comment: PER R N ELLIOT WILL CALL WHEN PT IS CALM DOWN. Performed By: #### C MP, MG, LACTIC, PRL, SCAN CBC ####[address] Hematocrit (Bld) [Volume fraction] 34.4 % Low 38.8-50.0 [facility] Comment on above: Order Comment: PER R N ELLIOT WILL CALL WHEN PT IS CALM DOWN. Performed By: #### C MP, MG, LACTIC, PRL, SCAN CBC ####[address] Hemoglobin (Bld) [Mass/Vol] 11.6 g/dL Low 13.0-17.0 [facility] Comment on above: Order Comment: PER R N ELLIOT WILL CALL WHEN PT IS CALM DOWN. Performed By: #### C MP, MG, LACTIC, PRL, SCAN CBC ####[address] Lymphocytes (Bld) [#/Vol] 1.3 10*3/uL Normal 1.00-4.8 [facility] Comment on above: Order Comment: PER R N ELLIOT WILL CALL WHEN PT IS CALM DOWN. Performed By: #### C MP, MG, LACTIC, PRL, SCAN CBC ####[address] Lymphocytes/100 WBC (Bld) 8.6 % Normal . [facility] Comment on above: Order Comment: PER R N ELLIOT WILL CALL WHEN PT IS CALM DOWN. Performed By: #### C MP, MG, LACTIC, PRL, SCAN CBC ####[address] MCH (RBC) [Entitic mass] 32.3 pg Normal 27.5-35.2 [facility] Comment on above: Order Comment: PER R N ELLIOT WILL CALL WHEN PT IS CALM DOWN. Performed By: #### C MP, MG, LACTIC, PRL, SCAN CBC ####[address] MCV (RBC) [Entitic vol] 95.5 fL Normal 83.5-101 [facility] Comment on above: Order Comment: PER R N ELLIOT WILL CALL WHEN PT IS CALM DOWN. Performed By: #### C MP, MG, LACTIC, PRL, SCAN CBC ####[address] Mean Corpuscular HGB Conc 33.8 g/dL Normal 32.5-35.6 [facility] Comment on above: Order Comment: PER R N ELLIOT WILL CALL WHEN PT IS CALM DOWN. Performed By: #### C MP, MG, LACTIC, PRL, SCAN CBC ####[address] Monocytes (Bld) [#/Vol] 0.4 10*3/uL Normal 0.0-0.8 [facility] Comment on above: Order Comment: PER R N ELLIOT WILL CALL WHEN PT IS CALM DOWN. Performed By: #### C MP, MG, LACTIC, PRL, SCAN CBC ####[address] Monocytes/100 WBC (Bld) 2.5 % Normal . [facility] Comment on above: Order Comment: PER R N ELLIOT WILL CALL WHEN PT IS CALM DOWN. Performed By: #### C MP, MG, LACTIC, PRL, SCAN CBC ####[address] Neutrophils (Bld) [#/Vol] 13.4 10*3/uL High 1.8-7.7 [facility] Comment on above: Order Comment: PER R N ELLIOT WILL CALL WHEN PT IS CALM DOWN. Performed By: #### C MP, MG, LACTIC, PRL, SCAN CBC ####[address] Neutrophils/100 WBC (Bld) 87.4 % Normal . [facility] Comment on above: Order Comment: PER R N ELLIOT WILL CALL WHEN PT IS CALM DOWN. Performed By: #### C MP, MG, LACTIC, PRL, SCAN CBC ####[address] NRBC% 0.0 /100{WBC} Normal 0-0.5 [facility] Comment on above: Order Comment: PER R N ELLIOT WILL CALL WHEN PT IS CALM DOWN. Performed By: #### C MP, MG, LACTIC, PRL, SCAN CBC ####[address] Platelet Estimate Increased Normal Normal [facility] Comment on above: Order Comment: PER R N ELLIOT WILL CALL WHEN PT IS CALM DOWN. Performed By: #### C MP, MG, LACTIC, PRL, SCAN CBC ####[address] Platelet mean volume (Bld) [Entitic vol] 6.6 fL Normal 6.6-10.1 [facility] Comment on above: Order Comment: PER R N ELLIOT WILL CALL WHEN PT IS CALM DOWN. Performed By: #### C MP, MG, LACTIC, PRL, SCAN CBC ####[address] Platelet Morphology Normal Normal Normal [facility] Comment on above: Order Comment: PER R N ELLIOT WILL CALL WHEN PT IS CALM DOWN. Result Comment: PERF ORMED BY:[address] [place], [place] [phone] MEDICAL DIRECTORFRANCHESCA MAGALLON M.D. Performed By: #### C MP, MG, LACTIC, PRL, SCAN CBC ####[address] Platelets (Bld) [#/Vol] 507 10*3/uL High 150-450 [facility] Comment on above: Order Comment: PER R N ELLIOT WILL CALL WHEN PT IS CALM DOWN. Performed By: #### C MP, MG, LACTIC, PRL, SCAN CBC ####[place] [id number] [facility] Poikilocytosis Slight Normal [facility] Comment on above: Order Comment: PER R N ELLIOT WILL CALL WHEN PT IS CALM DOWN. Performed By: #### C MP, MG, LACTIC, PRL, SCAN CBC ####[place] [id number] [facility] Polychromasia Slight Normal [facility] Comment on above: Order Comment: PER R N ELLIOT WILL CALL WHEN PT IS CALM DOWN. Performed By: #### C MP, MG, LACTIC, PRL, SCAN CBC ####[address] RBC (Bld) [#/Vol] 3.60 10*6/uL Low 3.90-5.60 [facility] Comment on above: Order Comment: PER R N ELLIOT WILL CALL WHEN PT IS CALM DOWN. Performed By: #### C MP, MG, LACTIC, PRL, SCAN CBC ####[place] [id number] [facility] Rouleaux Slight Normal [facility] Comment on above: Order Comment: PER R N ELLIOT WILL CALL WHEN PT IS CALM DOWN. Performed By: #### C MP, MG, LACTIC, PRL, SCAN CBC ####[place] [id number] [facility] Stomatocytes Slight Normal [facility] Comment on above: Order Comment: PER R N ELLIOT WILL CALL WHEN PT IS CALM DOWN. Performed By: #### C MP, MG, LACTIC, PRL, SCAN CBC ####[place] [id number] [facility] WBC (Bld) [#/Vol] 15.3 10*3/uL High 4.1-10.5 [facility] Comment on above: Order Comment: PER R N ELLIOT WILL CALL WHEN PT IS CALM DOWN. Performed By: #### C MP, MG, LACTIC, PRL, SCAN CBC ####[place] [id number] [facility] Stomatocytes [Presence] in B lood by Light microscopyOrdered By: Moris Quarles on 05-13-2024 Stomatocytes LM Ql (Bld) Red blood cell stomatocyte detection [facility] Valproate [Mass/volume] in S kay or PlasmaOrdered By: Jimmy Gonzalez on 05-13-2024 Valproate [Mass/Vol] Valproate [Mass/vol ume] in Serum or Plasma Low 50.0-100.0 [facility] Comment on above: Last dose: - Valproic Acid (in house)on 0 05-13-2024 Valproic Acid (in house) 32.3 ug/mL Low 50.0-100.0 [facility] Comment on above: Order Comment: Comme nt Free level, serum, ADD ON TO AM LABS Result Comment: Last dose: -PERFORMED BY:[address] [phone] MEDICAL DIRECTORFRANCHESCA MAGALLON M.D. Performed By: #### V ALP ####[facility] [place], [place] [phone] [facility] X-ray reportOrdered By: Allan Acuna on 05-13-2024 Study report [facility] [place] [id number] XRay Report Signed Patient: Juan Simon MR#: [id number] : 1955 Acct:[id number] Age/Sex: 68 / M ADM Date: 4 Loc: Room: [address] [place] [address] Type: ADM IN Attending Dr: Hilda Ruiz MD Copies to: DO Hilda Lassiter MD~ Ordering Provider: Moris Quarles DO Date of Service: 05/13/24 XR/XR chest 1V portable: hypoxia Plain film chest Single view HISTORY: Hypoxia COMPARISON: 05/12/2024 FINDINGS: SUPPORT DEVICES: None POSTSURGICAL CHANGES: Spinal neurostimulator redemonstrated HEART: Stable PULMONARY CAROLYN: Stable MEDIASTINUM: Unremarkable LUNGS AND PLEURA: Continued right upper lung consolidation. Improving right basilar consolidation. Continued diffuse left lung groundglass consolidation. Similar small left pleural effusion. No pneumothorax. BONY STRUCTURES: Intact ADDITIONAL FINDINGS None XR/XR chest 1V portable IMPRESSION: Improving right basilar parenchymal density. Continued right upperand diffuse left lung consolidation. Impression dictated by: Cliff Acuna M.D.05/13/2024 8:16 AM Dictation Location: [facility]--16 Transcribed By: [facility] 05/13/24815 Dictated By: Cliff Acuna DO 05/13/2415 Signed By: 05/13/24815 [facility] XR chest 1V portableon 05-13 XR chest 1V portable Normal [facility] CT head/brain wo conon 05-12 CT head/brain wo con Normal [facility] Glucose Poct Glucometerson 0 05-12-2024 Glucose [Mass/Vol] 223 mg/dL Normal [facility] Comment on above: Result Comment: [facility] Glucose Reference Range is dependent on time and content of last meal. Glucose of more than 200 mg/dL in a nonstressed, ambulatory subject supports the diagnosis of Diabetes Mellitus.PERFORMED BY:[place] [address] [place], [place] [phone] MEDICAL DIRECTORFRANCHESCA MAGALLON M.D. Performed By: #### G LULS ####Point of Care testing, Glucose [Mass/Vol] 127 mg/dL Normal [facility] Comment on above: Result Comment: [facility] Glucose Reference Range is dependent on time and content of last meal. Glucose of more than 200 mg/dL in a nonstressed, ambulatory subject supports the diagnosis of Diabetes Mellitus.PERFORMED BY:[place] [address] [address] [place], [place] [phone] MEDICAL DIRECTORFRANCHESCA MAGALLON M.D. Performed By: #### G LULS ####Point of Care testing, Glucose [Mass/Vol] 167 mg/dL Normal [facility] Comment on above: Result Comment: [facility] Glucose Reference Range is dependent on time and content of last meal. Glucose of more than 200 mg/dL in a nonstressed, ambulatory subject supports the diagnosis of Diabetes Mellitus.PERFORMED BY:[address]aleyT[place], [place] [phone] MEDICAL DIRECTORFRANCHESCA MAGALLON M.D. Performed By: #### G LULS ####Point of Care testing, Glucose [Mass/Vol] 136 mg/dL Normal [facility] Comment on above: Result Comment: [facility] Glucose Reference Range is dependent on time and content of last meal. Glucose of more than 200 mg/dL in a nonstressed, ambulatory subject supports the diagnosis of Diabetes Mellitus.PERFORMED BY:[address] [phone] MEDICAL DIRECTORFRANCHESCA MAGALLON M.D. Performed By: #### G LULS ####Point of Care testing, X-ray reportOrdered By: Allan Acuna on 05-12-2024 Study report [facility] [address] [address] XRay Report Signed Patient: Juan Simon MR#: [id number] : 1955 Acct:[id number] Age/Sex: 68 / M ADM Date: 4 Loc: Room: [address] [place] [address] Type: ADM IN Attending Dr: Hilda Ruiz MD Copies to: Hilda Ruiz MD~ Ordering Provider: Hilda Ruiz MD Date of Service: 05/12/24 XR/XR chest 1V portable: Follow up on pneumonia, comparison Plain film chest Single view HISTORY: Follow-up pneumonia. Shortness of breath. COMPARISON: 05/08/2024 FINDINGS: SUPPORT DEVICES: None POSTSURGICAL CHANGES: None HEART: Within normal limits PULMONARY CAROLYN: Within normal limits MEDIASTINUM: Unremarkable LUNGS AND PLEURA: Improving right lung infiltrates. Development of worsening diffuse left lung infiltrates. BONY STRUCTURES: Intact ADDITIONAL FINDINGS None XR/XR chest 1V portable IMPRESSION: Improving right lung infiltrates. Worsening diffuse groundglass left lung infiltrate. Impression dictated by: Cliff Acuna M.D.05/12/2024 3:23 PM Dictation Location: [place] [address] Transcribed By: [facility] 05/12/24 1523 Dictated By: Cliff Acuna DO 05/12/24 1519 Signed By: 05/12/[address] [facility] XR chest 1V portableon 05-12 XR chest 1V portable Normal [facility] Complete Blood Count Auto Di ffon 05-11-2024 Basophils (Bld) [#/Vol] 0.1 10*3/uL Normal 0.0-0.2 [facility] Comment on above: Result Comment: PERF ORMED BY:[address] [place], [place] [phone] MEDICAL DIRECTORMOGEN MAGALLON M.D. Performed By: #### M G, CBC, CMP ####[address] [address] [facility] Basophils/100 WBC (Bld) 0.5 % Normal . [facility] Comment on above: Performed By: #### M G, CBC, CMP ####[address] [address] [facility] Eosinophils (Bld) [#/Vol] 0.1 10*3/uL Normal 0.0-0.45 [facility] Comment on above: Performed By: #### M G, CBC, CMP ####[address] [address] [facility] Eosinophils/100 WBC (Bld) 0.7 % Normal . [facility] Comment on above: Performed By: #### M G, CBC, CMP ####[address] [address] [facility] Erythrocyte distribution width (RBC) [Ratio] 14.7 % Normal 12.0-14.8 [facility] Comment on above: Performed By: #### M G, CBC, CMP ####[address] [address] [facility] Hematocrit (Bld) [Volume fraction] 36.1 % Low 38.8-50.0 [facility] Comment on above: Performed By: #### M G, CBC, CMP ####[address] Hemoglobin (Bld) [Mass/Vol] 12.1 g/dL Low 13.0-17.0 [facility] Comment on above: Performed By: #### M G, CBC, CMP ####[address] Lymphocytes (Bld) [#/Vol] 2.6 10*3/uL Normal 1.00-4.8 [facility] Comment on above: Performed By: #### M G, CBC, CMP ####[address] Lymphocytes/100 WBC (Bld) 13.2 % Normal . [facility] Comment on above: Performed By: #### M G, CBC, CMP ####[address] MCH (RBC) [Entitic mass] 32.2 pg Normal 27.5-35.2 [facility] Comment on above: Performed By: #### M G, CBC, CMP ####[address] MCV (RBC) [Entitic vol] 95.9 fL Normal 83.5-101 T [facility] Comment on above: Performed By: #### M G, CBC, CMP ####[address] Mean Corpuscular HGB Conc 33.6 g/dL Normal 32.5-35.6 [facility] Comment on above: Performed By: #### M G, CBC, CMP ####[address] Monocytes (Bld) [#/Vol] 1.2 10*3/uL High 0.0-0.8 [facility] Comment on above: Performed By: #### M G, CBC, CMP ####[address] Monocytes/100 WBC (Bld) 6.0 % Normal . [facility] Comment on above: Performed By: #### M G, CBC, CMP ####[address] Neutrophils (Bld) [#/Vol] 15.6 10*3/uL High 1.8-7.7 [facility] Comment on above: Performed By: #### M G, CBC, CMP ####[address] Neutrophils/100 WBC (Bld) 79.6 % Normal . [facility] Comment on above: Performed By: #### M G, CBC, CMP ####[address] NRBC% 0.1 /100{WBC} Normal 0-0.5 [facility] Comment on above: Performed By: #### M G, CBC, CMP ####[address] Platelet mean volume (Bld) [Entitic vol] 6.8 fL Normal 6.6-10.1 [facility] Comment on above: Performed By: #### M G, CBC, CMP ####[address] Platelets (Bld) [#/Vol] 524 10*3/uL High 150-450 [facility] Comment on above: Performed By: #### M G, CBC, CMP ####[address] RBC (Bld) [#/Vol] 3.76 10*6/uL Low 3.90-5.60 [facility] Comment on above: Performed By: #### M G, CBC, CMP ####[address] WBC (Bld) [#/Vol] 19.6 10*3/uL High 4.1-10.5 [facility] Comment on above: Performed By: #### Preeti G, CBC, CMP ####[place] [id number] [place] [address] [facility] Comprehensive Metabolic Pane raudel 05-11-2024 Albumin [Mass/Vol] 2.9 g/dL Low 3.5-5.7 [facility] Comment on above: Performed By: #### M Tatiana, CBC, CMP ####[address] [address] [facility] Albumin/Globulin [Mass ratio] 0.9 {ratio} Normal [facility] Comment on above: Performed By: #### M G, CBC, CMP ####[address] [address] [facility] ALP [Catalytic activity/Vol] 80 U/L Normal 34-104 [facility] Comment on above: Performed By: #### M Tatiana, CBC, CMP ####[address] [address] [facility] ALT [Catalytic activity/Vol] 25 U/L Normal 7-52 [facility] Comment on above: Performed By: #### M Tatiana, CBC, CMP ####[address] [address] [facility] Anion gap [Moles/Vol] 13.2 mmol/L Normal 6.0-15.0 [facility] Comment on above: Performed By: #### Preeti Simpson, CBC, CMP ####[address] [address] [facility] AST [Catalytic activity/Vol] 24 U/L Normal 13-39 [facility] Comment on above: Performed By: #### M G, CBC, CMP ####[place] [id number] [facility] Bilirubin [Mass/Vol] 0.8 mg/dL Normal 0.3-1.0 [facility] Comment on above: Performed By: #### M G, CBC, CMP ####[address] [address] [facility] Calcium [Mass/Vol] 8.4 mg/dL Low 8.6-10.3 [facility] Comment on above: Performed By: #### M Tatiana, CBC, CMP ####[place] [id number] [facility] Chloride [Moles/Vol] 90 mmol/L Low 98-107 [facility] Comment on above: Performed By: #### M G, CBC, CMP ####[address] [address] [facility] CO2 [Moles/Vol] 31.7 mmol/L High 21.0-31.0 [facility] Comment on above: Performed By: #### M G, CBC, CMP ####[place] [id number] [facility] Creatinine [Mass/Vol] 0.75 mg/dL Normal 0.70-1.30 [facility] Comment on above: Performed By: #### M G, CBC, CMP ####[address] [facility] 94.85 Normal [facility] Comment on above: Performed By: #### M G, CBC, CMP ####[place] [id number] [facility] GFR/1.73 sq M.predicted MDRD (S/P/Bld) [Vol rate/Area] mL/min/{1.73_m2} Normal [facility] Comment on above: Performed By: #### M G, CBC, CMP ####[place] [id number] [facility] Globulin (S) [Mass/Vol] 3.4 g/dL Normal T [facility] Comment on above: Performed By: #### M G, CBC, CMP ####[place] [id number] [facility] Glucose [Mass/Vol] 228 mg/dL Significant change up 70-100 [facility] Comment on above: Result Comment: [place] Glucose Reference Range is dependent on time and content of last meal. Glucose of more than 200 mg/dL in a nonstressed, ambulatory subject supports the diagnosis of Diabetes Mellitus. ADA recommended reference range Performed By: #### M G, CBC, CMP ####[address] [place] [address] [facility] Potassium [Moles/Vol] 3.9 mmol/L Normal 3.5-5.1 [facility] Comment on above: Performed By: #### M G, CBC, CMP ####[place] [address] [place] [address] [facility] Protein [Mass/Vol] 6.3 g/dL Low 6.4-8.9 [facility] Comment on above: Performed By: #### M G, CBC, CMP ####[place] [address] [place] [address] [facility] Sodium [Moles/Vol] 131 mmol/L Low 136-145 [facility] Comment on above: Performed By: #### M G, CBC, CMP ####[place] [id number] [place] [phone] [facility] Urea nitrogen [Mass/Vol] 14 mg/dL Normal 7-25 [facility] Comment on above: Performed By: #### M G, CBC, CMP ####[place] [address] [place] [phone] [facility] Glucose Poct Glucometerson 0 05-11-2024 Glucose [Mass/Vol] 186 mg/dL Normal [facility] Comment on above: Result Comment: [facility] Glucose Reference Range is dependent on time and content of last meal. Glucose of more than 200 mg/dL in a nonstressed, ambulatory subject supports the diagnosis of Diabetes Mellitus.PERFORMED BY:[place] [address] [place], [place] [phone] MEDICAL DIRECTORFRANCHESCA MAGALLON M.D. Performed By: #### G LULS ####Point of Care testing, Glucose [Mass/Vol] 144 mg/dL Normal [facility] Comment on above: Result Comment: [facility] Glucose Reference Range is dependent on time and content of last meal. Glucose of more than 200 mg/dL in a nonstressed, ambulatory subject supports the diagnosis of Diabetes Mellitus.PERFORMED BY:[address] [place], [place] [id number] MEDICAL DIRECTORFRANCHESCA MAGALLON M.D. Performed By: #### G LULS ####Point of Care testing, Glucose [Mass/Vol] 159 mg/dL Normal [facility] Comment on above: Result Comment: [facility] Glucose Reference Range is dependent on time and content of last meal. Glucose of more than 200 mg/dL in a nonstressed, ambulatory subject supports the diagnosis of Diabetes Mellitus.PERFORMED BY:[address] [place], [place] [phone] MEDICAL DIRECTORFRANCHESCA MAGALLON M.D. Performed By: #### G LULS ####Point of Care testing, Magnesiumon 05-11-2024 Magnesium [Mass/Vol] 1.8 mg/dL Low 1.9-2.7 [facility] Comment on above: Result Comment: PERF ORMED BY:[address] [place], [place] [phone] MEDICAL DIRECTORFRANCHESCA MAGALLON M.D. Performed By: #### M G, CBC, CMP ####[address] [address] [facility] Vancomycin,Troughon 05-11-19 25 Vancomycin,Trough 20.0 ug/mL Normal 10.0-20.0 [facility] Comment on above: Order Comment: Time of next dose? 29 Date of last dose?: 20240510 Time of last dose?: 1230 Result Comment: Last dose: -PERFORMED BY:[address] [place], [place] [phone] MEDICAL DIRECTORFRANCHESCA MAGALLON M.D. Performed By: #### V ANCT ####[address] [address] [facility] Arterial Blood Gason 024 ABG Base Excess 5.9 mmol/L High -3.0-3.0 [facility] Comment on above: Performed By: #### A BG ####Point of Care testing, ABG Frac Inspired O2 32 % Normal [facility] Comment on above: Performed By: #### A BG ####Point of Care testing, ABG Oxygen Content 7.4 mmol/L Normal 6.6-9.7 [facility] Comment on above: Performed By: #### A BG ####Point of Care testing, ABG Oxygen Saturation 95.6 % Normal 95.0-100.0 [facility] Comment on above: Performed By: #### A BG ####Point of Care testing, ABG PCO2 39.9 mm[Hg] Normal 35.0-45.0 [facility] Comment on above: Performed By: #### A BG ####Point of Care testing, ABG PH 7.49 High 7.35-7.45 [facility] Comment on above: Performed By: #### A BG ####Point of Care testing, ABG PO2 79.0 mm[Hg] Low 80.0-100.0 [facility] Comment on above: Performed By: #### A BG ####Point of Care testing, CO2 [Moles/Vol] 30.9 mmol/L High 23.0-27.0 [facility] Comment on above: Performed By: #### A BG ####Point of Care testing, HCO3 (Bld) [Moles/Vol] 29.7 mmol/L High 23.0-29.0 T [facility] Comment on above: Performed By: #### A BG ####Point of Care testing, Oxygen Device Nasal Cannula Normal [facility] Comment on above: Performed By: #### A BG ####Point of Care testing, Respiratory Critical Normal [facility] Comment on above: Result Comment: Crit ical Value called on: 05/10/2024 at 10:59PERFORMED BY:[place] [id number] [place], [place] [phone] MEDICAL DIRECTORFRANCHESCA MAGALLON M.D. Performed By: #### A BG ####Point of Care testing, VBG Draw Site Right Radial Normal [facility] Comment on above: Performed By: #### A BG ####Point of Care testing, Complete Blood Count Auto Di ffon 05-10-2024 Basophils (Bld) [#/Vol] 0.1 10*3/uL Normal 0.0-0.2 [facility] Comment on above: Result Comment: PERF ORMED BY:[address] [place], [place] [phone] MEDICAL DIRECTORFRANCHESCA MAGALLON M.D. Performed By: #### C BC ####[address] Basophils/100 WBC (Bld) 0.9 % Normal . T jeniffer [facility] Comment on above: Performed By: #### C BC ####[address] Eosinophils (Bld) [#/Vol] 0.1 10*3/uL Normal 0.0-0.45 [facility] Comment on above: Performed By: #### C BC ####[address] Eosinophils/100 WBC (Bld) 0.7 % Normal . [facility] Comment on above: Performed By: #### C BC ####[address] Erythrocyte distribution width (RBC) [Ratio] 15.1 % High 12.0-14.8 [facility] Comment on above: Performed By: #### C BC ####[address] Hematocrit (Bld) [Volume fraction] 36.8 % Low 38.8-50.0 [facility] Comment on above: Performed By: #### C BC ####[address] Hemoglobin (Bld) [Mass/Vol] 12.2 g/dL Low 13.0-17.0 [facility] Comment on above: Performed By: #### C BC ####[address] Lymphocytes (Bld) [#/Vol] 1.9 10*3/uL Normal 1.00-4.8 [facility] Comment on above: Performed By: #### C BC ####[address] Lymphocytes/100 WBC (Bld) 12.1 % Normal . [facility] Comment on above: Performed By: #### C BC ####[address] MCH (RBC) [Entitic mass] 31.7 pg Normal 27.5-35.2 [facility] Comment on above: Performed By: #### C BC ####[address] MCV (RBC) [Entitic vol] 95.4 fL Normal 83.5-101 T [facility] Comment on above: Performed By: #### C BC ####[address] Mean Corpuscular HGB Conc 33.2 g/dL Normal 32.5-35.6 [facility] Comment on above: Performed By: #### C BC ####[address] Monocytes (Bld) [#/Vol] 1.2 10*3/uL High 0.0-0.8 [facility] Comment on above: Performed By: #### C BC ####[address] Monocytes/100 WBC (Bld) 7.8 % Normal . [facility] Comment on above: Performed By: #### C BC ####[address] Neutrophils (Bld) [#/Vol] 12.6 10*3/uL High 1.8-7.7 [facility] Comment on above: Performed By: #### C BC ####[address] Neutrophils/100 WBC (Bld) 78.5 % Normal . [facility] Comment on above: Performed By: #### C BC ####[address] NRBC% 0.0 /100{WBC} Normal 0-0.5 [facility] Comment on above: Performed By: #### C BC ####[address] Platelet mean volume (Bld) [Entitic vol] 6.8 fL Normal 6.6-10.1 [facility] Comment on above: Performed By: #### C BC ####[address] Platelets (Bld) [#/Vol] 456 10*3/uL High 150-450 [facility] Comment on above: Performed By: #### C BC ####[address] RBC (Bld) [#/Vol] 3.85 10*6/uL Low 3.90-5.60 [facility] Comment on above: Performed By: #### C BC ####[address] WBC (Bld) [#/Vol] 16.0 10*3/uL High 4.1-10.5 [facility] Comment on above: Performed By: #### C BC ####[address] Comprehensive Metabolic Pane raudel 05-10-2024 Albumin [Mass/Vol] 2.8 g/dL Low 3.5-5.7 [facility] Comment on above: Performed By: #### M G, CMP, PHOS ####[address] Albumin/Globulin [Mass ratio] 0.9 {ratio} Normal [facility] Comment on above: Performed By: #### M G, CMP, PHOS ####[address] ALP [Catalytic activity/Vol] 79 U/L Normal 34-104 [facility] Comment on above: Performed By: #### Preeti G, CMP, PHOS ####[place] [id number] [facility] ALT [Catalytic activity/Vol] 28 U/L Normal 7-52 [facility] Comment on above: Performed By: #### M G, CMP, PHOS ####[place] [id number] [facility] Anion gap [Moles/Vol] 9.6 mmol/L Normal 6.0-15.0 [facility] Comment on above: Performed By: #### Preeti Simpson, CMP, PHOS ####[address] AST [Catalytic activity/Vol] 24 U/L Normal 13-39 [facility] Comment on above: Performed By: #### Preeti Simpson CMP, PHOS ####[address] Bilirubin [Mass/Vol] 0.8 mg/dL Normal 0.3-1.0 [facility] Comment on above: Performed By: #### Preeti Simpson CMP, PHOS ####[address] Calcium [Mass/Vol] 8.4 mg/dL Low 8.6-10.3 [facility] Comment on above: Performed By: #### Preeti Simpson, CMP, PHOS ####[place] [id number] [facility] Chloride [Moles/Vol] 92 mmol/L Low 98-107 [facility] Comment on above: Performed By: #### M G, CMP, PHOS ####[place] [phone] [facility] CO2 [Moles/Vol] 34.4 mmol/L High 21.0-31.0 [facility] Comment on above: Performed By: #### M G, CMP, PHOS ####[place] [id number] [facility] Creatinine [Mass/Vol] 0.75 mg/dL Normal 0.70-1.30 [facility] Comment on above: Performed By: #### Preeti Simpson CMP PHOS ####[address] [facility] Pharm[facility] 94.44 Normal [facility] Comment on above: Performed By: #### Preeti Simpson CMP, PHOS ####[address] GFR/1.73 sq M.predicted MDRD (S/P/Bld) [Vol rate/Area] mL/min/{1.73_m2} Normal [facility] Comment on above: Performed By: #### Preeti Simpson CMP PHOS ####[address] Globulin (S) [Mass/Vol] 3.1 g/dL Normal T [facility] Comment on above: Performed By: #### Preeti Simpson CMP PHOS ####[address] Glucose [Mass/Vol] 101 mg/dL High 70-100 [facility] Comment on above: Result Comment: [facility] Glucose Reference Range is dependent on time and content of last meal. Glucose of more than 200 mg/dL in a nonstressed, ambulatory subject supports the diagnosis of Diabetes Mellitus. ADA recommended reference range Performed By: #### Preeti Simpson CMP, PHOS ####[address] Potassium [Moles/Vol] 4.0 mmol/L Normal 3.5-5.1 [facility] Comment on above: Performed By: #### Preeti Simpson CMP, PHOS ####[address] Protein [Mass/Vol] 5.9 g/dL Low 6.4-8.9 [facility] Comment on above: Performed By: #### Preeti Simpson CMP, PHOS ####[address] Sodium [Moles/Vol] 132 mmol/L Low 136-145 [facility] Comment on above: Performed By: #### M G, CMP, PHOS ####[place] [id number] [facility] Urea nitrogen [Mass/Vol] 14 mg/dL Normal 7-25 [facility] Comment on above: Performed By: #### M G, CMP, PHOS ####[place] [id number] [facility] Magnesiumon 05-10-2024 Magnesium [Mass/Vol] 1.8 mg/dL Low 1.9-2.7 [facility] Comment on above: Result Comment: PERF ORMED BY:[place] [address] [place], [place] [phone] MEDICAL DIRECTORFRANCHESCA MAGALLON M.D. Performed By: #### M G, CMP, PHOS ####[place] [id number] [facility] Phosphate [Mass/volume] in S kay or PlasmaOrdered By: Hilda Ruiz on 05-10-2024 Phosphate [Mass/Vol] Phosphate [Mass/vol ume] in Serum or Plasma 2.5-4.5 [facility] Phosphoruson 05-10-2024 Phosphate [Mass/Vol] 3.8 mg/dL Normal 2.5-4.5 [facility] Comment on above: Performed By: #### M G, CMP, PHOS ####[place] [id number] [facility] Vancomycin,Peakon 05-10-2024 Vancomycin,Peak 41.1 ug/mL High 20.0-40.0 [facility] Comment on above: Order Comment: Comme nt ?DRAW 1 HOUR AFTER INFUSION COMPLETES Date of last dose?: 20240510 Time of last dose?: 1229 Result Comment: Last dose: -PERFORMED BY:[address] [address] [place], [place] [phone] MEDICAL DIRECTORFRANCHESCA MAGALLON M.D. Performed By: #### V ANCP ####[facility] [id number] [place] [address] [facility] head/brain wo conon 05-09 CT head/brain wo con Normal [facility] ECG 12 lead ECGon 05-09-2024 ECG 12 lead ECG Normal [facility] Arterial Blood Gason 024 ABG Base Excess 7.8 mmol/L High -3.0-3.0 [facility] Comment on above: Performed By: #### A BG ####Point of Care testing, ABG Frac Inspired O2 45 % Normal [facility] Comment on above: Performed By: #### A BG ####Point of Care testing, ABG Liter Flow 6 Normal [facility] Comment on above: Performed By: #### A BG ####Point of Care testing, ABG Oxygen Content 7.5 mmol/L Normal 6.6-9.7 [facility] Comment on above: Performed By: #### A BG ####Point of Care testing, ABG Oxygen Saturation 95.1 % Normal 95.0-100.0 [facility] Comment on above: Performed By: #### A BG ####Point of Care testing, ABG PCO2 45.9 mm[Hg] High 35.0-45.0 [facility] Comment on above: Performed By: #### A BG ####Point of Care testing, ABG PH 7.47 High 7.35-7.45 [facility] Comment on above: Performed By: #### A BG ####Point of Care testing, ABG PO2 75.7 mm[Hg] Low 80.0-100.0 [facility] Comment on above: Performed By: #### A BG ####Point of Care testing, CO2 [Moles/Vol] 33.9 mmol/L High 23.0-27.0 [facility] Comment on above: Performed By: #### A BG ####Point of Care testing, HCO3 (Bld) [Moles/Vol] 32.5 mmol/L High 23.0-29.0 T [facility] Comment on above: Performed By: #### A BG ####Point of Care testing, Respiratory Critical Normal [facility] Comment on above: Result Comment: Crit ical Value called on: 05/08/2024 at 14:14PERFORMED BY:[address] [address] [place], [place] [phone] MEDICAL DIRECTORFRANCHESCA MAGALLON M.D. Performed By: #### A BG ####Point of Care testing, VBG Draw Site Left Radial Normal [facility] Comment on above: Performed By: #### A BG ####Point of Care testing, B-Type Natriuretic Peptideon 05-08-2024 Natriuretic peptide B (Bld) [Mass/Vol] 499.0 pg/mL High 5-100 [facility] Comment on above: Result Comment: PERF ORMED BY:[address] [place], [place] [id number] MEDICAL DIRECTORFRANCHESCA MAGALLON M.D. Performed By: #### B PL SQL DEVELOPER, HS TROP ####[address] [address] [facility] Basic Metabolic Panelon 12-2 Anion gap [Moles/Vol] 11.0 mmol/L Normal 6.0-15.0 [facility] Comment on above: Performed By: #### M Tatiana BMP, CBCNO ####[address] [address] [facility] Calcium [Mass/Vol] 8.7 mg/dL Normal 8.6-10.3 [facility] Comment on above: Performed By: #### M Tatiana, BMP, CBCNO ####[address] [address] [place] Chloride [Moles/Vol] 98 mmol/L Normal 98-107 [facility] Comment on above: Performed By: #### M Tatiana, BMP, CBCNO ####[address] [address] [place] CO2 [Moles/Vol] 29.3 mmol/L Normal 21.0-31.0 [facility] Comment on above: Performed By: #### EPI Morrissey, CBCNO ####[place] [address] Creatinine [Mass/Vol] 0.64 mg/dL Low 0.70-1.30 [facility] Comment on above: Performed By: #### Preeti Simpson, EPI, CBCNO ####[place] [address] [place] [phone] [place] Creatinine Clr Calc Pharmacy 94.80 Normal [facility] Comment on above: Performed By: #### Preeti Simpson, EPI, CBCNO ####[place] [address] [place] [phone] [facility] GFR/1.73 sq M.predicted MDRD (S/P/Bld) [Vol rate/Area] mL/min/{1.73_m2} Normal [facility] Comment on above: Performed By: #### EPI Morrissey, CBCNO ####[address] Glucose [Mass/Vol] 125 mg/dL High 70-100 [facility] Comment on above: Result Comment: [place] Glucose Reference Range is dependent on time and content of last meal. Glucose of more than 200 mg/dL in a nonstressed, ambulatory subject supports the diagnosis of Diabetes Mellitus. ADA recommended reference range Performed By: #### M EPI Simpson, CBCNO ####[place] [phone] [facility] Potassium [Moles/Vol] 4.3 mmol/L Normal 3.5-5.1 [facility] Comment on above: Performed By: #### EPI Morrissey, CBCNO ####[place] [phone] [place] [phone] [facility] Sodium [Moles/Vol] 134 mmol/L Low 136-145 [facility] Comment on above: Performed By: #### EPI Morrissey, CBCNO ####[place] [phone] [place] [phone] [facility] Urea nitrogen [Mass/Vol] 10 mg/dL Normal 7-25 [facility] Comment on above: Performed By: #### EPI Morrissey, CBCNO ####[place] [address] [place] [phone] [facility] Bilirubin.direct [Mass/volum e] in Serum or PlasmaOrdered By: Alvin Crisostomo on 05-08-2024 Bilirubin.direct [Mass/Vol] Bilirubin.direct [Mass/volume] in Serum or Plasma 0.03-0.18 [facility] CT abdomen pelvis w conon CT abdomen pelvis w con Normal T [facility] CT angio chest PE protocolon 05-08-2024 CT angio chest PE protocol Normal [facility] Hemogram CBC Without Diffon 05-08-2024 Erythrocyte distribution width (RBC) [Ratio] 15.2 % High 12.0-14.8 [facility] Comment on above: Performed By: #### EPI Morrissey, CBCNO ####[address] Hematocrit (Bld) [Volume fraction] 38.8 % Normal 38.8-50.0 [facility] Comment on above: Performed By: #### EPI Morrissey, CBCNO ####[address] Hemoglobin (Bld) [Mass/Vol] 13.2 g/dL Normal 13.0-17.0 [facility] Comment on above: Performed By: #### Preeti Simpson, EPI, CBCNO ####[address] MCH (RBC) [Entitic mass] 32.7 pg Normal 27.5-35.2 [facility] Comment on above: Performed By: #### Preeti Simpson, BMP, CBCNO ####[place] [phone] [facility] MCV (RBC) [Entitic vol] 95.9 fL Normal 83.5-101 T [facility] Comment on above: Performed By: #### Preeti Simpson, BMP, CBCNO ####[place] [phone] [facility] Mean Corpuscular HGB Conc 34.0 g/dL Normal 32.5-35.6 [facility] Comment on above: Performed By: #### EPI Morrissey, CBCNO ####[address] Platelet mean volume (Bld) [Entitic vol] 6.5 fL Low 6.6-10.1 [facility] Comment on above: Result Comment: PERF ORMED BY:[address] [place], [place] [phone] MEDICAL DIRECTORFRANCHESCA MAGALLON M.D. Performed By: #### EPI Morrissey, CBCNO ####[address] Platelets (Bld) [#/Vol] 403 10*3/uL Normal 150-450 [facility] Comment on above: Performed By: #### EPI Morrissey CBCNO ####[address] RBC (Bld) [#/Vol] 4.04 10*6/uL Normal 3.90-5.60 [facility] Comment on above: Performed By: #### EPI Morrissey CBCNO ####[address] WBC (Bld) [#/Vol] 22.2 10*3/uL High 4.1-10.5 [facility] Comment on above: Performed By: #### EPI Morrissey, CBCNO ####[address] Hepatic Panelon 05-08-2024 Albumin [Mass/Vol] 3.1 g/dL Low 3.5-5.7 [facility] Comment on above: Performed By: #### L ACTIC, HEPATIC ####[address] Albumin/Globulin [Mass ratio] 1.0 {ratio} Normal [facility] Comment on above: Performed By: #### L ACTIC, HEPATIC ####[address] [place] [address] [facility] ALP [Catalytic activity/Vol] 88 U/L Normal 34-104 [facility] Comment on above: Result Comment: PERF ORMED BY:[place] [address] [place], [place] [phone] MEDICAL DIRECTORFRANCHESCA MAGALLON M.D. Performed By: #### L ACTIC, HEPATIC ####[place] [id number] [facility] ALT [Catalytic activity/Vol] 34 U/L Normal 7-52 [facility] Comment on above: Performed By: #### L ACTIC, HEPATIC ####[address] AST [Catalytic activity/Vol] 28 U/L Normal 13-39 [facility] Comment on above: Performed By: #### L ACTIC, HEPATIC ####[place] [id number] [facility] Bilirubin [Mass/Vol] 0.9 mg/dL Normal 0.3-1.0 [facility] Comment on above: Performed By: #### L ACTIC, HEPATIC ####[place] [id number] [facility] Bilirubin,Indirect 0.8 mg/dL Normal [facility] Comment on above: Performed By: #### L ACTIC, HEPATIC ####[place] [id number] [facility] Bilirubin.indirect [Mass/Vol] 0.10 mg/dL Normal 0.03-0.18 [facility] Comment on above: Performed By: #### L ACTIC, HEPATIC ####[place] [id number] [facility] Globulin (S) [Mass/Vol] 3.1 g/dL Normal T [facility] Comment on above: Performed By: #### L ACTIC, HEPATIC ####[place] [id number] [facility] Protein [Mass/Vol] 6.2 g/dL Low 6.4-8.9 [facility] Comment on above: Performed By: #### L ACTIC, HEPATIC ####[place] [address] [place] [address] [facility] INR in Platelet poor plasma by Coagulation assayOrdered By: Alvin Crisostomo on 05-08-2024 INR Coag (PPP) [Relative time] INR in Platelet poor plasma by Coagulation assay [facility] Comment on above: INR Therapeutic Rang e A) Pre- and Peroperative OAT started two weeks before surgery. NOT HIP SURGERY: 1.5 - 2.5 HIP SURGERY: 2 - 3B) Primary and secondary prevention of venous THROMBOSIS: 2 - 3C) Active venous thrombosis, pulmonary embolismand prevention of recurrent venous thrombosis: 2 - 3D) Prevention of arterial thromboembolismincluding patients with mechanical heart valves: 3 - 4.5 Lactic Acidon 05-08-2024 Lactate [Moles/Vol] 1.0 mmol/L Normal 0.5-2.2 [facility] Comment on above: Result Comment: PERF ORMED BY:[address] [place]ER[place]AMIES[place], [place] [phone] MEDICAL DIRECTORFRANCHESCA MAGALLON M.D. Performed By: #### L ACTPASTOR, HEPATIC ####[address] [place] [address] [facility] Magnesiumon 05-08-2024 Magnesium [Mass/Vol] 1.7 mg/dL Low 1.9-2.7 [facility] Comment on above: Result Comment: PERF ORMED BY:[place] [address], [place] [phone] MEDICAL DIRECTORFRANCHESCA MAGALLON M.D. Performed By: #### M G, BMP, CBCNO ####[address] [address] [facility] Natriuretic peptide B [Mass/ Vol]Ordered By: Alvin Crisostomo on 05-08-2024 Natriuretic peptide B (Bld) [Mass/Vol] BNP ser/plas High 5-100 [facility] No Panel InformationOrdered By: Skyler Sanchez on 05-08-2024 Blood Gas Liter Flow 6 L/min [facility] Prothrombin Time INRon 05-08 INR Coag (PPP) [Relative time] 1.2 {INR} Normal [facility] Comment on above: Result Comment: INR Therapeutic Range A) Pre- and Peroperative OAT started two weeks before surgery. NOT HIP SURGERY: 1.5 - 2.5 HIP SURGERY: 2 - 3 B) Primary and secondary prevention of venous THROMBOSIS: 2 - 3 C) Active venous thrombosis, pulmonary embolism and prevention of recurrent venous thrombosis: 2 - 3 D) Prevention of arterial thromboembolism including patients with mechanical heart valves: 3 - 4.5PERFORMED BY:[facility] [place], [place] [phone] MEDICAL DIRECTORFRANCHESCA MAGALLON M.D. Performed By: #### P T ####[place] [address] [place] [address] [facility] PT Coag (PPP) [Time] 14.3 s High 9.0-12.9 [facility] Comment on above: Result Comment: A matocrit value greater than 55% may lead to inaccurate results in coagulation testing. Patients having hematocrit values >55% require a special collection tube for coagulation studies. Please contact the laboratory at [phone] for redraw instructions. Performed By: #### P T ####[address] [address] [facility] Prothrombin time (PT)Ordered By: Alvin Crisostomo on 05-08-2024 PT Coag (PPP) [Time] Prothrombin time (PT) High 9.0- 12.9 [facility] Comment on above: A hematocrit value g reater than 55% may lead to inaccurate results in coagulation testing. Patients having hematocrit values >55% require a special collection tube for coagulation studies. Please contact the laboratory at [phone] for redraw instructions. Serum or plasma non-glucuron idated bilirubin measurement (mass/volume)Ordered By: Alvin Crisostomo on 05-08-2024 Bilirubin.indirect [Mass/Vol] Serum or plasma non-glucuronidated bilirubin measurement (mass/volume) [facility] Troponin I High Sensitivityo n 12-29-2024 Troponin I High Sensitivity 68.6 pg/mL Off scale high 0.0-20.0 [facility] Comment on above: Result Comment: Crit ical Result : Called to and read back by: GONZÁLEZ CUTLER at: 05/08/2024 04:40:12 by:[id number] BY:[address] [phone] MEDICAL DIRECTORFRANCHESCA MAGALLON M.D. Performed By: #### B PL SQL DEVELOPER, HS TROP ####[facility] [place] [address] [facility] Troponin I.cardiac [Mass/vol ume] in Serum or Plasma by Detection limit <= 0.01 ng/Ordered By: Alvin Crisostomo on 05-08-2024 Troponin I.cardiac DL <= 0.01 ng/mL [Mass/Vol] Troponin I.cardiac [Mass/volume] in Serum or Plasma by Detection limit <= 0.01 ng/ Critically high 0.0-20.0 [facility] Comment on above: Critical Result : Ca lled to and read back by: GONZÁLEZ CUTLER at: 05/08/2024 04:40:12 by:[id number] X-ray reportOrdered By: Allan Acuna on 05-08-2024 Study report [facility] [place] [id number] XRay Report Signed Patient: Juan Simon MR#: [id number] : 1955 Acct:[id number] Age/Sex: 68 / M ADM Date: 4 Loc: Room: [address] [place] [address] Type: ADM IN Attending Dr: Skyler Sanchez MD Copies to: MD Skyler Oliva MD~ Ordering Provider: Alvin Crisostomo MD Date of Service: 05/08/24 XR/XR chest 1V portable: hypoxia Plain film chest Single view HISTORY: Hypoxia. Altered mental status COMPARISON: 05/02/2024 FINDINGS: SUPPORT DEVICES: None POSTSURGICAL CHANGES: None HEART: Within normal limits PULMONARY CAROLYN: Within normal limits MEDIASTINUM: Unremarkable LUNGS AND PLEURA: Developing right perihilar and upper patchy consolidation. No large pleural effusion. No pneumothorax. BONY STRUCTURES: Intact ADDITIONAL FINDINGS None XR/XR chest 1V portable IMPRESSION: Developing right perihilar and upper lobe consolidation. Consider infiltrate/pneumonitis. Impression dictated by: Cliff Acuna M.D.05/08/2024 10:25 AM Dictation Location: [facility]--20 Transcribed By: [facility] 05/08/24 1025 Dictated By: Cliff Acuna DO 05/08/24 1024 Signed By: 05/08/[address] [facility] XR chest 1V portableon 05-08 XR chest 1V portable Normal [facility] Basic Metabolic Panelon 04-11 Anion gap [Moles/Vol] 10.8 mmol/L Normal 6.0-15.0 [facility] Comment on above: Performed By: #### B MP ####[place] [id number] [facility] Calcium [Mass/Vol] 8.4 mg/dL Low 8.6-10.3 [facility] Comment on above: Performed By: #### B MP ####[place] [address] [facility] Chloride [Moles/Vol] 100 mmol/L Normal 98-107 [facility] Comment on above: Performed By: #### B MP ####[address] [address] [facility] CO2 [Moles/Vol] 29.3 mmol/L Normal 21.0-31.0 [facility] Comment on above: Performed By: #### B MP ####[address] [address] [facility] Creatinine [Mass/Vol] 0.64 mg/dL Low 0.70-1.30 [facility] Comment on above: Performed By: #### B MP ####[address] [address] [facility] Creatinine Clr Calc Pharmacy 94.80 Normal [facility] Comment on above: Result Comment: PERF ORMED BY:[address] [place]MISJaylynHaley[place], [place] [phone] MEDICAL TRESA MAGALLON M.D. Performed By: #### B MP ####[place] [id number] [facility] GFR/1.73 sq M.predicted MDRD (S/P/Bld) [Vol rate/Area] mL/min/{1.73_m2} Normal [facility] Comment on above: Performed By: #### B MP ####[place] [address] [facility] Glucose [Mass/Vol] 101 mg/dL High 70-100 [facility] Comment on above: Result Comment: [facility] Glucose Reference Range is dependent on time and content of last meal. Glucose of more than 200 mg/dL in a nonstressed, ambulatory subject supports the diagnosis of Diabetes Mellitus. ADA recommended reference range Performed By: #### B MP ####[place] [id number] [facility] Potassium [Moles/Vol] 4.1 mmol/L Normal 3.5-5.1 [facility] Comment on above: Performed By: #### B MP ####[place] [address] [facility] Sodium [Moles/Vol] 136 mmol/L Normal 136-145 [facility] Comment on above: Performed By: #### B MP ####[place] [address] [facility] Urea nitrogen [Mass/Vol] 11 mg/dL Normal 7-25 [facility] Comment on above: Performed By: #### B MP ####[place] [address] [facility] Magnesiumon 05-07-2024 Magnesium [Mass/Vol] 1.5 mg/dL Low 1.9-2.7 [facility] Comment on above: Order Comment: Comme nt add on Result Comment: PERF ORMED BY:[place] [address], [place] [phone] MEDICAL DIRECTORFRANCHESCA MAGALLON M.D. Performed By: #### M G ####[place] [id number] [facility] Basic Metabolic Panelon 12-2 Anion gap [Moles/Vol] 9.6 mmol/L Normal 6.0-15.0 [facility] Comment on above: Performed By: #### B MP ####[place] [address] [facility] Calcium [Mass/Vol] 8.3 mg/dL Low 8.6-10.3 [facility] Comment on above: Performed By: #### B MP ####[place] [address] [facility] Chloride [Moles/Vol] 102 mmol/L Normal 98-107 [facility] Comment on above: Performed By: #### B MP ####[place] [address] [facility] CO2 [Moles/Vol] 29.3 mmol/L Normal 21.0-31.0 [facility] Comment on above: Performed By: #### B MP ####[place] [address] [facility] Creatinine [Mass/Vol] 0.68 mg/dL Low 0.70-1.30 [facility] Comment on above: Performed By: #### B MP ####[place] [address] [facility] Creatinine Clr Calc Pharmacy 94.70 Normal [facility] Comment on above: Result Comment: PERF ORMED BY:[address] [place], [place] [phone] MEDICAL DIRECTORFRANCHESCA MAGALLON M.D. Performed By: #### B MP ####[address] [address] [facility] GFR/1.73 sq M.predicted MDRD (S/P/Bld) [Vol rate/Area] mL/min/{1.73_m2} Normal [facility] Comment on above: Performed By: #### B MP ####[address] Glucose [Mass/Vol] 95 mg/dL Normal 70-100 [facility] Comment on above: Result Comment: [place] Glucose Reference Range is dependent on time and content of last meal. Glucose of more than 200 mg/dL in a nonstressed, ambulatory subject supports the diagnosis of Diabetes Mellitus. ADA recommended reference range Performed By: #### B MP ####[address] Potassium [Moles/Vol] 3.9 mmol/L Normal 3.5-5.1 [facility] Comment on above: Performed By: #### B MP ####[address] Sodium [Moles/Vol] 137 mmol/L Normal 136-145 [facility] Comment on above: Performed By: #### B MP ####[address] Urea nitrogen [Mass/Vol] 14 mg/dL Normal 7-25 [facility] Comment on above: Performed By: #### B MP ####[address] Basic Metabolic Panelon 12-2 Anion gap [Moles/Vol] 8.2 mmol/L Normal 6.0-15.0 [facility] Comment on above: Performed By: #### C SAMSON, BMP ####[address] Calcium [Mass/Vol] 8.1 mg/dL Low 8.6-10.3 [facility] Comment on above: Performed By: #### C SAMSON, BMP ####[place] [id number] [facility] Chloride [Moles/Vol] 104 mmol/L Normal 98-107 [facility] Comment on above: Performed By: #### C SAMSON, BMP ####[place] [address] [facility] CO2 [Moles/Vol] 26.9 mmol/L Normal 21.0-31.0 [facility] Comment on above: Performed By: #### C SAMSON, BMP ####[place] [id number] [place] [id number] [facility] Creatinine [Mass/Vol] 0.64 mg/dL Low 0.70-1.30 [facility] Comment on above: Performed By: #### C SAMSON, BMP ####[address] Creatinine Clr Calc Pharmacy 93.68 Normal [facility] Comment on above: Result Comment: PERF ORMED BY:[address] [place]ISJaylynHaleyTOWACO, [place] [phone] MEDICAL DIRECTORFRANCHESCA MAGALLON M.D. Performed By: #### C SAMSON, BMP ####[address] GFR/1.73 sq M.predicted MDRD (S/P/Bld) [Vol rate/Area] mL/min/{1.73_m2} Normal [facility] Comment on above: Performed By: #### C SAMSON, BMP ####[address] Glucose [Mass/Vol] 103 mg/dL High 70-100 [facility] Comment on above: Result Comment: [facility] Glucose Reference Range is dependent on time and content of last meal. Glucose of more than 200 mg/dL in a nonstressed, ambulatory subject supports the diagnosis of Diabetes Mellitus. ADA recommended reference range Performed By: #### C SAMSON, BMP ####[address] Potassium [Moles/Vol] 4.1 mmol/L Normal 3.5-5.1 [facility] Comment on above: Result Comment: Hemo lysis is present at a level that could interfere with the result. Contact lab if redraw is required Performed By: #### C SAMSON, BMP ####[place] [id number] [facility] Sodium [Moles/Vol] 135 mmol/L Low 136-145 [facility] Comment on above: Performed By: #### C BCNO, BMP ####[address] Urea nitrogen [Mass/Vol] 16 mg/dL Normal 7-25 [facility] Comment on above: Performed By: #### C BCNO, BMP ####[place] [id number] [facility] Blood Cultureon 05-05-2024 Bacteria identified Cx Nom (Bld) NO GROWTH 5 DAYS PERFORMED BY: [place] [address] PATHOLOGIST DAIRY POWDER MIXER OPERATOR FRANCHESCA MAGALLON M.D. Normal [facility] Comment on above: Performed By: #### C UBLD ####[address] Bacteria identified Cx Nom (Bld) NO GROWTH 5 DAYS PERFORMED BY: [place] [address] PATHOLOGIST DAIRY POWDER MIXER OPERATOR FRANCHESCA MAGALLON M.D. Normal [facility] Comment on above: Performed By: #### C UBLD ####[place] [id number] [facility] Hemogram CBC Without Diffon 05-05-2024 Erythrocyte distribution width (RBC) [Ratio] 15.0 % High 12.0-14.8 [facility] Comment on above: Performed By: #### C BCNO, BMP ####[address] Hematocrit (Bld) [Volume fraction] 36.5 % Low 38.8-50.0 [facility] Comment on above: Performed By: #### C BCNO, BMP ####[address] Hemoglobin (Bld) [Mass/Vol] 12.4 g/dL Low 13.0-17.0 [facility] Comment on above: Performed By: #### C BCNO, BMP ####[address] [address] [facility] MCH (RBC) [Entitic mass] 32.2 pg Normal 27.5-35.2 [facility] Comment on above: Performed By: #### C BCNO, BMP ####[address] [address] [facility] MCV (RBC) [Entitic vol] 95.0 fL Normal 83.5-101 [facility] Comment on above: Performed By: #### C SAMSON, BMP ####[address] [address] [facility] Mean Corpuscular HGB Conc 33.9 g/dL Normal 32.5-35.6 [facility] Comment on above: Performed By: #### C BCCEFERINO, BMP ####[place] [id number] [facility] Platelet mean volume (Bld) [Entitic vol] 7.1 fL Normal 6.6-10.1 [facility] Comment on above: Result Comment: PERF ORMED BY:[address] [place], [place] [phone] MEDICAL DIRECTORFRANCHESCA MAGALLON M.D. Performed By: #### C SAMSON, BMP ####[address] [address] [facility] Platelets (Bld) [#/Vol] 195 10*3/uL Normal 150-450 [facility] Comment on above: Performed By: #### C BCNO, BMP ####[address] [address] [facility] RBC (Bld) [#/Vol] 3.84 10*6/uL Low 3.90-5.60 [facility] Comment on above: Performed By: #### C BCNO, BMP ####[address] [address] [facility] WBC (Bld) [#/Vol] 11.0 10*3/uL High 4.1-10.5 [facility] Comment on above: Performed By: #### C SAMSON, BMP ####[place] [id number] [facility] Laboratory - Microbiology an d Antimicrobial susceptibilityOrdered By: Skyler Sanchez on 05-05-2024 Bacteria identified Cx Nom (Bld) NO GROWTH [address] [facility] Bacteria identified Cx Nom (Bld) NO GROWTH [address] [facility] Basic Metabolic Panelon 04-11 Anion gap [Moles/Vol] 9.0 mmol/L Normal 6.0-15.0 [facility] Comment on above: Performed By: #### C SAMSON, BMP ####[address] Calcium [Mass/Vol] 7.8 mg/dL Low 8.6-10.3 [facility] Comment on above: Performed By: #### C SAMSON, BMP ####[address] Chloride [Moles/Vol] 105 mmol/L Normal 98-107 [facility] Comment on above: Performed By: #### C SAMSON, BMP ####[address] CO2 [Moles/Vol] 24.0 mmol/L Normal 21.0-31.0 [facility] Comment on above: Performed By: #### C SAMSON, BMP ####[address] Creatinine [Mass/Vol] 0.80 mg/dL Normal 0.70-1.30 [facility] Comment on above: Performed By: #### C SAMSON, BMP ####[place] [id number] [facility] Creatinine Clr Calc Pharmacy 91.55 Normal [facility] Comment on above: Result Comment: PERF ORMED BY:[address] [place], [place] [phone] MEDICAL DIRECTORFRANCHESCA MAGALLON M.D. Performed By: #### C SAMSON, BMP ####[place] [id number] [facility] GFR/1.73 sq M.predicted MDRD (S/P/Bld) [Vol rate/Area] mL/min/{1.73_m2} Normal [facility] Comment on above: Performed By: #### C SAMSON, BMP ####[place] [address] [facility] Glucose [Mass/Vol] 104 mg/dL High 70-100 [facility] Comment on above: Result Comment: [facility] Glucose Reference Range is dependent on time and content of last meal. Glucose of more than 200 mg/dL in a nonstressed, ambulatory subject supports the diagnosis of Diabetes Mellitus. ADA recommended reference range Performed By: #### C SAMSON, BMP ####[place] [id number] [facility] Potassium [Moles/Vol] 4.0 mmol/L Normal 3.5-5.1 [facility] Comment on above: Performed By: #### C SAMSON, BMP ####[place] [address] [facility] Sodium [Moles/Vol] 134 mmol/L Low 136-145 [facility] Comment on above: Performed By: #### C SAMSON, BMP ####[place] [address] [facility] Urea nitrogen [Mass/Vol] 20 mg/dL Normal 7-25 [facility] Comment on above: Performed By: #### C SAMSON, BMP ####[place] [address] [facility] Hemogram CBC Without Diffon 05-04-2024 Erythrocyte distribution width (RBC) [Ratio] 15.3 % High 12.0-14.8 [facility] Comment on above: Performed By: #### C SAMSON, BMP ####[place] [address] [facility] Hematocrit (Bld) [Volume fraction] 35.7 % Low 38.8-50.0 [facility] Comment on above: Performed By: #### C BCNO, BMP ####[address] [address] [facility] Hemoglobin (Bld) [Mass/Vol] 11.9 g/dL Low 13.0-17.0 [facility] Comment on above: Performed By: #### C BCNO, BMP ####[place] [id number] [facility] MCH (RBC) [Entitic mass] 32.1 pg Normal 27.5-35.2 [facility] Comment on above: Performed By: #### C BCCEFERINO, BMP ####[place] [address] [facility] MCV (RBC) [Entitic vol] 96.9 fL Normal 83.5-101 [facility] Comment on above: Performed By: #### C SAMSON, BMP ####[address] Mean Corpuscular HGB Conc 33.2 g/dL Normal 32.5-35.6 [facility] Comment on above: Performed By: #### C SAMSON, BMP ####[place] [id number] [facility] Platelet mean volume (Bld) [Entitic vol] 7.3 fL Normal 6.6-10.1 [facility] Comment on above: Result Comment: PERF ORMED BY:[address] [place], [place] [phone] MEDICAL DIRECTORFRANCHESCA MAGALLON M.D. Performed By: #### C BCCEFERINO, BMP ####[place] [id number] [facility] Platelets (Bld) [#/Vol] 155 10*3/uL Normal 150-450 [facility] Comment on above: Performed By: #### C BCNO, BMP ####[place] [id number] [facility] RBC (Bld) [#/Vol] 3.69 10*6/uL Low 3.90-5.60 [facility] Comment on above: Performed By: #### C BCNO, BMP ####[address] WBC (Bld) [#/Vol] 12.0 10*3/uL High 4.1-10.5 [facility] Comment on above: Performed By: #### C BCNO, BMP ####[address] Basic Metabolic Panelon 12-2 Anion gap [Moles/Vol] 9.7 mmol/L Normal 6.0-15.0 [facility] Comment on above: Performed By: #### M G, BMP, LIPID, CBCNO ####[address] Calcium [Mass/Vol] 7.3 mg/dL Significant change down 8.6-10.3 [facility] Comment on above: Performed By: #### M G, BMP, LIPID, CBCNO ####[address] Chloride [Moles/Vol] 105 mmol/L Normal 98-107 [facility] Comment on above: Performed By: #### M G, BMP, LIPID, CBCNO ####[address] CO2 [Moles/Vol] 24.7 mmol/L Normal 21.0-31.0 [facility] Comment on above: Performed By: #### M G, BMP, LIPID, CBCNO ####[address] Creatinine [Mass/Vol] 0.79 mg/dL Normal 0.70-1.30 [facility] Comment on above: Performed By: #### M G, BMP, LIPID, CBCNO ####[address] Creatinine Clr Calc Pharmacy 91.55 Normal [facility] Comment on above: Performed By: #### M G, BMP, LIPID, CBCNO ####[address] [place] [address] [facility] GFR/1.73 sq M.predicted MDRD (S/P/Bld) [Vol rate/Area] mL/min/{1.73_m2} Normal [facility] Comment on above: Performed By: #### M G, BMP, LIPID, CBCNO ####[place] [id number] [facility] Glucose [Mass/Vol] 103 mg/dL High 70-100 [facility] Comment on above: Result Comment: [facility] Glucose Reference Range is dependent on time and content of last meal. Glucose of more than 200 mg/dL in a nonstressed, ambulatory subject supports the diagnosis of Diabetes Mellitus. ADA recommended reference range Performed By: #### M G, BMP, LIPID, CBCNO ####[place] [id number] [facility] Potassium [Moles/Vol] 3.4 mmol/L Low 3.5-5.1 [facility] Comment on above: Performed By: #### M G, BMP, LIPID, CBCNO ####[place] [id number] [facility] Sodium [Moles/Vol] 136 mmol/L Normal 136-145 [facility] Comment on above: Performed By: #### M G, BMP, LIPID, CBCNO ####[place] [id number] [facility] Urea nitrogen [Mass/Vol] 26 mg/dL High 7-25 [facility] Comment on above: Performed By: #### M G, BMP, LIPID, CBCNO ####[place] [id number] [facility] Blood Cultureon 05-03-2024 Bacteria identified Cx Nom (Bld) NO GROWTH 5 DAYS PERFORMED BY: [facility] [address]aley [place] [id number] PATHOLOGIST [employer]IR[employer]OW[employer] MIXER OPERATOR FRANCHESCA MAGALLON M.D. Normal [facility] Comment on above: Performed By: #### C UBLD ####[place] [id number] [facility] Bacteria identified Cx Nom (Bld) NO GROWTH 5 DAYS PERFORMED BY: [facility] [address] [place] [id number] PATHOLOGIST DAIRY POWDER MIXER OPERATOR FRANCHESCA MAGALLON M.D. Normal [facility] Comment on above: Performed By: #### C UBLD ####[facility] [id number] [place] [address] [facility] abdomen pelvis w conon CT abdomen pelvis w con Normal T [facility] Cholesterol [Mass/volume] in Serum or PlasmaOrdered By: Skyler Sanchez on 05-03-2024 Cholesterol [Mass/Vol] Cholesterol [Mass /volume] in Serum or Plasma Low 140-200 [facility] Comment on above: Chol less than 200 m g/dl low riskChol 201-239 mg/dl borderline riskChol 240 mg/dl and greater high risk Cholesterol in HDL [Mass/vol ume] in Serum or PlasmaOrdered By: Skyler Sanchez on 05-03-2024 Cholesterol in HDL [Mass/Vol] Serum or plasma high density lipoprotein (HDL) cholesterol measurement Low 23-92 [facility] Comment on above: HDL CHOL ATP-III CLA SSIFICATION Cardiovascular RiskHDL > or equal to 60 mg/dL LOWHDL < 40 mg/dL HIGH Cholesterol in LDL Calc [Mas s/Vol]Ordered By: Skyler Sanchez on 05-03-2024 Cholesterol in LDL [Mass/Vol] Cholesterol in LDL [Mass/volume] in Serum or Plasma by calculation 0-100 [facility] Comment on above: LDL ATP III CLASSIFI CATIONLDL less than 100 mg/dL OptimalLDL 100-129 mg/dL Near or above optimalLDL 130-159 mg/dL Borderline highLDL 160-189 mg/dL HighLDL greater than 189 mg/dL Very high Cholesterol in VLDL Calc [Ma ss/Vol]Ordered By: Skyler Sanchez on 05-03-2024 Cholesterol in VLDL [Mass/Vol] Cholesterol in VLDL [Mass/volume] in Serum or Plasma by calculation [facility] ECH echo transthoracicon ECH echo transthoracic Normal [facility] Hemogram CBC Without Diffon 12-24-2024 Erythrocyte distribution width (RBC) [Ratio] 14.8 % Normal 12.0-14.8 [facility] Comment on above: Performed By: #### M G, BMP, LIPID, CBCNO ####[address] Hematocrit (Bld) [Volume fraction] 32.4 % Significant change down 38.8-50.0 [facility] Comment on above: Performed By: #### M G, BMP, LIPID, CBCNO ####[address] Hemoglobin (Bld) [Mass/Vol] 10.9 g/dL Low 13.0-17.0 [facility] Comment on above: Performed By: #### M G, BMP, LIPID, CBCNO ####[address] MCH (RBC) [Entitic mass] 32.2 pg Normal 27.5-35.2 [facility] Comment on above: Performed By: #### M G, BMP, LIPID, CBCNO ####[address] MCV (RBC) [Entitic vol] 95.3 fL Normal 83.5-101 [facility] Comment on above: Performed By: #### M G, BMP, LIPID, CBCNO ####[address] Mean Corpuscular HGB Conc 33.8 g/dL Normal 32.5-35.6 [facility] Comment on above: Performed By: #### M G, BMP, LIPID, CBCNO ####[address] Platelet mean volume (Bld) [Entitic vol] 7.1 fL Normal 6.6-10.1 [facility] Comment on above: Result Comment: PERF ORMED BY:[address] [place], [place] [phone] MEDICAL DIRECTORFRANCHESCA MAGALLON M.D. Performed By: #### M G, BMP, LIPID, CBCNO ####[address] Platelets (Bld) [#/Vol] 144 10*3/uL Low 150-450 [facility] Comment on above: Performed By: #### M G, BMP, LIPID, CBCNO ####[address] RBC (Bld) [#/Vol] 3.40 10*6/uL Low 3.90-5.60 [facility] Comment on above: Performed By: #### M G, BMP, LIPID, CBCNO ####[address] WBC (Bld) [#/Vol] 11.4 10*3/uL High 4.1-10.5 [facility] Comment on above: Performed By: #### M G, BMP, LIPID, CBCNO ####[address] Laboratory - Microbiology an d Antimicrobial susceptibilityOrdered By: Moris Younger on 05-03-2024 Bacteria identified Cx Nom (Bld) NO GROWTH [address] [facility] Bacteria identified Cx Nom (Bld) NO GROWTH [address] [facility] Lipid Panelon 05-03-2024 Cholesterol [Mass/Vol] 82 mg/dL Low 140-200 [facility] Comment on above: Result Comment: Chol less than 200 mg/dl low risk Chol 201-239 mg/dl borderline risk Chol 240 mg/dl and greater high risk Performed By: #### M G, BMP, LIPID, CBCNO ####[address] Cholesterol in HDL [Mass/Vol] 15 mg/dL Low 23-92 [facility] Comment on above: Result Comment: HDL CHOL ATP-III CLASSIFICATION Cardiovascular Risk HDL > or equal to 60 mg/dL LOW HDL < 40 mg/dL HIGH Performed By: #### M G, BMP, LIPID, CBCNO ####[address] Cholesterol.total/Holli sterol in HDL [Mass ratio] 5.5 {ratio} Normal <5.0 [facility] Comment on above: Result Comment: PERF ORMED BY:[address] [place], [place] [phone] MEDICAL DIRECTORFRANCHESCA MAGALLON M.D. Performed By: #### M G, BMP, LIPID, CBCNO ####[address] LDL Cholesterol,Calculated 46 mg/dL Normal 0-100 [facility] Comment on above: Result Comment: LDL ATP III CLASSIFICATION LDL less than 100 mg/dL Optimal LDL 100-129 mg/dL Near or above optimal LDL 130-159 mg/dL Borderline high LDL 160-189 mg/dL High LDL greater than 189 mg/dL Very high Performed By: #### M G, BMP, LIPID, CBCNO ####[address] Triglyceride w/Reflex 104 mg/dL Normal 0-149 [facility] Comment on above: Result Comment: TRIG ATP III CLASSIFICATION TRIG less than 150 mg/dL Normal TRIG 150-199 mg/dL Borderline high TRIG 200-500 mg/dL High TRIG greater than 500 mg/dL Very high Standard traceable to the Center for Disease Conrtrol and Prevention (CDC) test method. Performed By: #### M G, BMP, LIPID, CBCNO ####[place] [id number] [facility] VLDL CHOLESTEROL 20 mg/dL Normal [facility] Comment on above: Performed By: #### M G, BMP, LIPID, CBCNO ####[place] [id number] [facility] Magnesiumon 05-03-2024 Magnesium [Mass/Vol] 1.8 mg/dL Low 1.9-2.7 [facility] Comment on above: Performed By: #### M G, BMP, LIPID, CBCNO ####[place] [id number] [facility] Serum or plasma total choles terol/high density lipoprotein (HDL) cholesterol mass ratOrdered By: Skyler Sanchez on 05-03-2024 Cholesterol.total/Holli sterol in HDL [Mass ratio] Serum or plasma total cholesterol/high density lipoprotein (HDL) cholesterol mass rat <5.0 [facility] Triglyceride [Mass/volume] i n Serum or PlasmaOrdered By: Skyler Sanchez on 05-03-2024 Triglyceride [Mass/Vol] Triglyceride [Ma ss/volume] in Serum or Plasma 0-149 [facility] Comment on above: TRIG ATP III CLASSIF ICATIONTRIG less than 150 mg/dL NormalTRIG 150-199 mg/dL Borderline highTRIG 200-500 mg/dL High TRIG greater than 500 mg/dL Very highStandard traceable to the Center for Disease Conrtrol and Prevention (CDC) test method. Troponin I High Sensitivityo n 05-03-2024 Troponin I High Sensitivity 311.0 pg/mL Off scale high 0.0-20.0 [facility] Comment on above: Result Comment: Crit ical Result : Called to and read back by: SOLIS PETIT at: 05/03/2024 05:32:46 by:[id number] BY:[address] [place], [place] [phone] MEDICAL DIRECTORFRANCHESCA MAGALLON M.D. Performed By: #### H S TROP ####[place] [address] [place] [address] [facility] Ammoniaon 05-02-2024 Ammonia (P) [Moles/Vol] 24 umol/L Normal 11-35 [facility] Comment on above: Result Comment: PERF ORMED BY:[address] [place], [place] [phone] MEDICAL DIRECTORFRANCHESCA MAGALLON M.D. Performed By: #### L ACTIC, SCAN CBC, AMM, CUBLD, PT, TSH3, HS TROP, PTT, CMP, ETOH, CK ####[address] [address] [facility] Ammonia [Moles/volume] in Pl asmaOrdered By: Ralf White on 05-02-2024 Ammonia (P) [Moles/Vol] Ammonia [Moles/v olume] in Plasma [facility] Amphetamine Screen Ql (U)Ord ered By: Ralf White on 05-02-2024 Amphetamines Ql (U) Amphetamines screen High Negativ e [facility] Appearance of UrineOrdered B y: Ralf White on 05-02-2024 Appearance (U) Urine appearance Abnormal Clear [facility] Arterial Blood Gason 024 ABG Base Excess -5.6 mmol/L Low -3.0-3.0 [facility] Comment on above: Performed By: #### A BG ####Point of Care testing, ABG Frac Inspired O2 21 % Normal [facility] Comment on above: Performed By: #### A BG ####Point of Care testing, ABG Oxygen Content 7.1 mmol/L Normal 6.6-9.7 [facility] Comment on above: Performed By: #### A BG ####Point of Care testing, ABG Oxygen Saturation 93.5 % Low 95.0-100.0 [facility] Comment on above: Performed By: #### A BG ####Point of Care testing, ABG PCO2 30.1 mm[Hg] Low 35.0-45.0 [facility] Comment on above: Performed By: #### A BG ####Point of Care testing, ABG PH 7.40 Normal 7.35-7.45 [facility] Comment on above: Performed By: #### A BG ####Point of Care testing, ABG PO2 68.0 mm[Hg] Low 80.0-100.0 [facility] Comment on above: Performed By: #### A BG ####Point of Care testing, CO2 [Moles/Vol] 19.1 mmol/L Low 23.0-27.0 [facility] Comment on above: Performed By: #### A BG ####Point of Care testing, HCO3 (Bld) [Moles/Vol] 18.1 mmol/L Low 23.0-29.0 [facility] Comment on above: Performed By: #### A BG ####Point of Care testing, Respiratory Critical Normal [facility] Comment on above: Result Comment: Crit ical Value called on: 05/02/2024 at 13:43PERFORMED BY:[place] [address] [place], [place] [phone] MEDICAL DIRECTORFRANCHESCA MAGALLON M.D. Performed By: #### A BG ####Point of Care testing, VBG Draw Site Left Radial Normal [facility] Comment on above: Performed By: #### A BG ####Point of Care testing, Bacteria [Presence] in Urine by AutomatedOrdered By: Ralf White on 05-02-2024 Bacteria Auto Ql (U) Bacteria [Presence] in Urine by Automated High None Seen [facility] Barbiturates [Presence] in U rine by Screen methodOrdered By: Ralf White on 05-02-2024 Barbiturates Screen Ql (U) Barbiturates [Presence] in Urine by Screen method Negative [facility] Benzodiazepines Screen Ql (U )Ordered By: Ralf White on 05-02-2024 Benzodiazepines Ql (U) Benzodiazepines [ Presence] in Urine by Screen method Negative [facility] Benzoylecgonine [Presence] i n Urine by Screen methodOrdered By: Ralf White on 05-02-2024 Benzoylecgonine Screen Ql (U) Benzoylecgonine [Presence] in Urine by Screen method Negative [facility] Bilirubin Test strip Ql (U)O rdered By: Ralf White on 05-02-2024 Bilirubin Ql (U) Bilirubin.total [Pre sence] in Urine by Test strip Negative [facility] BioFire Not Detectedon 05-02 BioFire Not Detected Not detected Normal Not Detecte [facility] Comment on above: Result Comment: This is a duplicate RP2.1 COVID (PCR) result to be used for statistical tracking purpose only.PERFORMED BY:[place] [address] [place], [place] [phone] MEDICAL DIRECTORFRANCHESCA MAGALLON M.D. Performed By: #### B IOFIRECOVNOTDE, ADDONUAPLUS, RESP PANEL UPP., CUU, URDS ####[place] [id number] Blood Cultureon 05-02-2024 Bacteria identified Cx Nom (Bld) Normal [facility] Comment on above: Performed By: #### L ACTIC, SCAN CBC, AMM, CUBLD, PT, TSH3, HS TROP, PTT, CMP, ETOH, CK ####[address] Bacteria identified Cx Nom (Bld) Normal [facility] Comment on above: Performed By: #### L ACTIC, SCAN CBC, AMM, CUBLD, PT, TSH3, HS TROP, PTT, CMP, ETOH, CK ####[address] Blood toxic granulation dete ction by light microscopyOrdered By: Ralf White on 05-02-2024 Toxic granules LM Ql (Bld) Blood toxic granulation detection by light microscopy [facility] CT head/brain wo conon 05-02 CT head/brain wo con Normal [facility] Cannabinoids [Presence] in U rine by Screen methodOrdered By: Ralf White on 05-02-2024 Cannabinoids Screen Ql (U) Cannabinoids [Presence] in Urine by Screen method Negative [facility] Comment on above: These are unconfirme d results and should not be used for legal purposes. Drug Cut-Off Concentration: AMPH 1000 ng/mL JULIETA 200 ng/mL JORGE 200 ng/mL COCM 300 ng/mL OP 300 ng/mL PCP 25 ng/mL THC 20 ng/mL Color Auto (U)Ordered By: Darryn White on 05-02-2024 Color (U) Color of Urine by Auto Yellow Fi [facility] Comprehensive Metabolic Pane raudel 05-02-2024 Albumin [Mass/Vol] 3.6 g/dL Normal 3.5-5.7 [facility] Comment on above: Performed By: #### L ACTIC, SCAN CBC, AMM, CUBLD, PT, TSH3, HS TROP, PTT, CMP, ETOH, CK ####[address] Albumin/Globulin [Mass ratio] 1.2 {ratio} Normal [facility] Comment on above: Performed By: #### L ACTIC, SCAN CBC, AMM, CUBLD, PT, TSH3, HS TROP, PTT, CMP, ETOH, CK ####[address] ALP [Catalytic activity/Vol] 123 U/L High 34-104 [facility] Comment on above: Performed By: #### L ACTIC, SCAN CBC, AMM, CUBLD, PT, TSH3, HS TROP, PTT, CMP, ETOH, CK ####[address] ALT [Catalytic activity/Vol] 33 U/L Normal 7-52 [facility] Comment on above: Performed By: #### L ACTIC, SCAN CBC, AMM, CUBLD, PT, TSH3, HS TROP, PTT, CMP, ETOH, CK ####[address] Anion gap [Moles/Vol] 16.1 mmol/L High 6.0-15.[address] [facility] Comment on above: Performed By: #### L ACTIC, SCAN CBC, AMM, CUBLD, PT, TSH3, HS TROP, PTT, CMP, ETOH, CK ####[place] [id number] [facility] AST [Catalytic activity/Vol] 38 U/L Normal 13-39 [facility] Comment on above: Performed By: #### L ACTIC, SCAN CBC, AMM, CUBLD, PT, TSH3, HS TROP, PTT, CMP, ETOH, CK ####[address] Bilirubin [Mass/Vol] 1.5 mg/dL High 0.3-1.0 [facility] Comment on above: Result Comment: Samp les from patients who have taken Naproxen have shown spurious elevation in Total Bilirubin levels. A metabolite of Naproxen, O-desmethylnaproxen, has been shown to interfere with the Juvencioik-Leninf method for measuring Total Bilirubin. Performed By: #### L ACTIC, SCAN CBC, AMM, CUBLD, PT, TSH3, HS TROP, PTT, CMP, ETOH, CK ####[address] Calcium [Mass/Vol] 8.9 mg/dL Normal 8.6-10.3 [facility] Comment on above: Performed By: #### L ACTIC, SCAN CBC, AMM, CUBLD, PT, TSH3, HS TROP, PTT, CMP, ETOH, CK ####[address] Chloride [Moles/Vol] 98 mmol/L Normal 98-107 [facility] Comment on above: Performed By: #### L ACTIC, SCAN CBC, AMM, CUBLD, PT, TSH3, HS TROP, PTT, CMP, ETOH, CK ####[address] CO2 [Moles/Vol] 24.6 mmol/L Normal 21.0-31.0 [facility] Comment on above: Performed By: #### L ACTIC, SCAN CBC, AMM, CUBLD, PT, TSH3, HS TROP, PTT, CMP, ETOH, CK ####[address] Creatinine [Mass/Vol] 1.05 mg/dL Normal 0.70-1.30 [facility] Comment on above: Performed By: #### L ACTIC, SCAN CBC, AMM, CUBLD, PT, TSH3, HS TROP, PTT, CMP, ETOH, CK ####[address] Creatinine Clr Calc Pharmacy 70.22 Normal [facility] Comment on above: Performed By: #### L ACTIC, SCAN CBC, AMM, CUBLD, PT, TSH3, HS TROP, PTT, CMP, ETOH, CK ####[address] GFR/1.73 sq M.predicted MDRD (S/P/Bld) [Vol rate/Area] mL/min/{1.73_m2} Normal [facility] Comment on above: Performed By: #### L ACTIC, SCAN CBC, AMM, CUBLD, PT, TSH3, HS TROP, PTT, CMP, ETOH, CK ####[address] Globulin (S) [Mass/Vol] 2.9 g/dL Normal T [facility] Comment on above: Performed By: #### L ACTIC, SCAN CBC, AMM, CUBLD, PT, TSH3, HS TROP, PTT, CMP, ETOH, CK ####[address] Glucose [Mass/Vol] 77 mg/dL Normal 70-100 [facility] Comment on above: Result Comment: [facility] Glucose Reference Range is dependent on time and content of last meal. Glucose of more than 200 mg/dL in a nonstressed, ambulatory subject supports the diagnosis of Diabetes Mellitus. ADA recommended reference range Performed By: #### L ACTIC, SCAN CBC, AMM, CUBLD, PT, TSH3, HS TROP, PTT, CMP, ETOH, CK ####[address] Potassium [Moles/Vol] 3.7 mmol/L Normal 3.5-5.1 [facility] Comment on above: Performed By: #### L ACTIC, SCAN CBC, AMM, CUBLD, PT, TSH3, HS TROP, PTT, CMP, ETOH, CK ####[address] Protein [Mass/Vol] 6.5 g/dL Normal 6.4-8.9 [facility] Comment on above: Performed By: #### L ACTIC, SCAN CBC, AMM, CUBLD, PT, TSH3, HS TROP, PTT, CMP, ETOH, CK ####[address] Sodium [Moles/Vol] 135 mmol/L Low 136-145 [facility] Comment on above: Performed By: #### L ACTIC, SCAN CBC, AMM, CUBLD, PT, TSH3, HS TROP, PTT, CMP, ETOH, CK ####[address] Urea nitrogen [Mass/Vol] 26 mg/dL High 7-25 [facility] Comment on above: Performed By: #### L ACTIC, SCAN CBC, AMM, CUBLD, PT, TSH3, HS TROP, PTT, CMP, ETOH, CK ####[address] Creatine Kinaseon 05-02-2024 CK [Catalytic activity/Vol] 328 U/L High 30-223 [facility] Comment on above: Performed By: #### L ACTIC, SCAN CBC, AMM, CUBLD, PT, TSH3, HS TROP, PTT, CMP, ETOH, CK ####[address] Dipstick and Microscopicon 1 07-03-2023 Appearance (U) Cloudy Critically abnormal Clear [facility] Comment on above: Order Comment: Name Collection Type:: Clean-Voided Midstream Performed By: #### B IOFIRECOVNOTDE, ADDONUAPLUS, RESP PANEL UPP., CUU, URDS ####[address] Bacteria,Urine 1+ High None Seen [facility] Comment on above: Order Comment: Name Collection Type:: Clean-Voided Midstream Performed By: #### B IOFIRECOVNOTDE, ADDONUAPLUS, RESP PANEL UPP., CUU, URDS ####[place] [id number] [facility] Bilirubin,Urine Negative Normal Negative [facility] Comment on above: Order Comment: Name Collection Type:: Clean-Voided Midstream Performed By: #### B IOFIRECOVNOTDE, ADDONUAPLUS, RESP PANEL UPP., CUU, URDS ####[place] [id number] [facility] Color (U) Yellow Normal Yellow [facility] Comment on above: Order Comment: Name Collection Type:: Clean-Voided Midstream Performed By: #### B IOFIRECOVNOTDE, ADDONUAPLUS, RESP PANEL UPP., CUU, URDS ####[place] [id number] [facility] Glucose Ql (U) Normal Normal Normal [facility] Comment on above: Order Comment: Name Collection Type:: Clean-Voided Midstream Performed By: #### B IOFIRECOVNOTDE, ADDONUAPLUS, RESP PANEL UPP., CUU, URDS ####[address] [address] [facility] Hyaline Casts,Urine None Normal 0-8 [facility] Comment on above: Order Comment: Name Collection Type:: Clean-Voided Midstream Performed By: #### B IOFIRECOVNOTDE, ADDONUAPLUS, RESP PANEL UPP., CUU, URDS ####[place] [id number] [facility] Ketones Ql (U) 2+ High Negative [facility] Comment on above: Order Comment: Name Collection Type:: Clean-Voided Midstream Performed By: #### B IOFIRECOVNOTDE, ADDONUAPLUS, RESP PANEL UPP., CUU, URDS ####[address] [address] [facility] Leukocyte esterase Test strip Ql (U) 4+ High Negative [facility] Comment on above: Order Comment: Name Collection Type:: Clean-Voided Midstream Performed By: #### B IOFIRECOVNOTDE, ADDONUAPLUS, RESP PANEL UPP., CUU, URDS ####[address] [address] [facility] Mucus,Urine 1+ Critically abnormal [facility] Comment on above: Order Comment: Name Collection Type:: Clean-Voided Midstream Result Comment: PERF ORMED BY:[address] [place], [place] [id number] MEDICAL DIRECTORFRANCHESCA MAGALLON M.D. Performed By: #### B IOFIRECOVNOTDE, ADDONUAPLUS, RESP PANEL UPP., CUU, URDS ####[address] Nitrite,Urine Negative Normal Negative [facility] Comment on above: Order Comment: Name Collection Type:: Clean-Voided Midstream Performed By: #### B IOFIRECOVNOTDE, ADDONUAPLUS, RESP PANEL UPP., CUU, URDS ####[address] Occult Blood,Urine 2+ High Negative [facility] Comment on above: Order Comment: Name Collection Type:: Clean-Voided Midstream Result Comment: PERF ORMED BY:[address] [place], [place] [phone] MEDICAL DIRECTORFRANCHESCA MAGALLON M.D. Performed By: #### B IOFIRECOVNOTDE, ADDONUAPLUS, RESP PANEL UPP., CUU, URDS ####[address] pH (U) 6.0 [pH] Normal 5.0-9.0 [facility] Comment on above: Order Comment: Name Collection Type:: Clean-Voided Midstream Performed By: #### B IOFIRECOVNOTDE, ADDONUAPLUS, RESP PANEL UPP., CUU, URDS ####[address] Protein (U) [Mass/Vol] 30 mg/dL High Negative [facility] Comment on above: Order Comment: Name Collection Type:: Clean-Voided Midstream Performed By: #### B IOFIRECOVNOTDE, ADDONUAPLUS, RESP PANEL UPP., CUU, URDS ####[address] RBC,Urine 50 [HPF] High 0-4 [facility] Comment on above: Order Comment: Name Collection Type:: Clean-Voided Midstream Performed By: #### B IOFIRECOVNOTDE, ADDONUAPLUS, RESP PANEL UPP., CUU, URDS ####[address] Specificy [place],Urine 1.024 Normal 1.00 1-1.03 0 [facility] Comment on above: Order Comment: Name Collection Type:: Clean-Voided Midstream Performed By: #### B IOFIRECOVNOTDE, ADDONUAPLUS, RESP PANEL UPP., CUU, URDS ####[address] Squamous Epithelial Cell,Urine 1 [HPF] Normal 0-2 [facility] Comment on above: Order Comment: Name Collection Type:: Clean-Voided Midstream Performed By: #### B IOFIRECOVNOTDE, ADDONUAPLUS, RESP PANEL UPP., CUU, URDS ####[address] Urobilinogen,Urine 4 mg/dL High Normal [facility] Comment on above: Order Comment: Name Collection Type:: Clean-Voided Midstream Performed By: #### B IOFIRECOVNOTDE, ADDONUAPLUS, RESP PANEL UPP., CUU, URDS ####[address] Urothelial Cells 1 [HPF] High 0-1 [facility] Comment on above: Order Comment: Name Collection Type:: Clean-Voided Midstream Performed By: #### B IOFIRECOVNOTDE, ADDONUAPLUS, RESP PANEL UPP., CUU, URDS ####[address] WBC CLUMP, Urine Occasional High None Seen [facility] Comment on above: Order Comment: Name Collection Type:: Clean-Voided Midstream Performed By: #### B IOFIRECOVNOTDE, ADDONUAPLUS, RESP PANEL UPP., CUU, URDS ####[address] WBC,Urine Innumerable High 0-4 [facility] Comment on above: Order Comment: Name Collection Type:: Clean-Voided Midstream Performed By: #### B IOFIRECOVNOTDE, ADDONUAPLUS, RESP PANEL UPP., CUU, URDS ####[place] [id number] [place] [id number] [facility] Drug Screen,Urineon 05-02-20 24 Amphetamine Screen,Urine Positive High Negative [facility] Comment on above: Performed By: #### B IOFIRECOVNOTDE, ADDONUAPLUS, RESP PANEL UPP., CUU, URDS ####[place] [id number] [facility] Barbiturate Screen,Urine Negative Normal Negative [facility] Comment on above: Performed By: #### B IOFIRECOVNOTDE, ADDONUAPLUS, RESP PANEL UPP., CUU, URDS ####[address] Benzodiazepines Screen,Urine Negative Normal Negative [facility] Comment on above: Performed By: #### B IOFIRECOVNOTDE, ADDONUAPLUS, RESP PANEL UPP., CUU, URDS ####[address] Cannabinoid Screen,Urine Negative Normal Negative [facility] Comment on above: Result Comment: Thes e are unconfirmed results and should not be used for legal purposes. Drug Cut-Off Concentration: AMPH 1000 ng/mL JULIETA 200 ng/mL JORGE 200 ng/mL COCM 300 ng/mL OP 300 ng/mL PCP 25 ng/mL THC 20 ng/mLPERFORMED BY:[address] [place], [place] [phone] MEDICAL DIRECTORFRANCHESCA MAGALLON M.D. Performed By: #### B IOFIRECOVNOTDE, ADDONUAPLUS, RESP PANEL UPP., CUU, URDS ####[place] [phone] [facility] Cocaine Screen,Urine Negative Normal Negative [facility] Comment on above: Performed By: #### B IOFIRECOVNOTDE, ADDONUAPLUS, RESP PANEL UPP., CUU, URDS ####[facility] [id number] [place] [address] [facility] Opiate Screen,Urine Negative Normal Negative [facility] Comment on above: Performed By: #### B IOFIRECOVNOTDE, ADDONUAPLUS, RESP PANEL UPP., CUU, URDS ####[facility] [place] [phone] [facility] Phencyclidine Screen,Urine Negative Normal Negative [facility] Comment on above: Performed By: #### B IOFIRECOVNOTDE, ADDONUAPLUS, RESP PANEL UPP., CUU, URDS ####[facility] [place] [phone] [facility] ECG 12 lead ECGon 05-02-2024 ECG 12 lead ECG Normal [facility] ECG 12 lead ECG Normal [facility] ECG 12 lead ECG Normal [facility] Epithelial cells.squamous [# /area] in Urine sediment by Automated countOrdered By: Ralf White on 05-02-2024 Epithelial cells.squamous Auto (Urine sed) [#/Area] Epithelial cells.squamous [#/area] in Urine sediment by Automated count 0- [facility] Erythrocytes [#/area] in Uri ne sediment by Automated countOrdered By: Ralf White on 05-02-2024 RBC Auto (Urine sed) [#/Area] Erythrocytes [#/area] in Urine sediment by Automated count High 0-4 [facility] Ethanol [Mass/volume] in Ser um or PlasmaOrdered By: Ralf White on 05-02-2024 Ethanol [Mass/Vol] Ethanol [Mass/volume ] in Serum or Plasma [facility] Comment on above: Test not performed Ethyl Alcohol Profileon 04-11 Ethanol [Mass/Vol] mg/dL Normal [facility] Comment on above: Performed By: #### L ACTIC, SCAN CBC, AMM, CUBLD, PT, TSH3, HS TROP, PTT, CMP, ETOH, CK ####[facility] [place] [phone] [facility] Percent Ethanol Not performed Normal [facility] Comment on above: Result Comment: PERF ORMED BY:[facility] [place]Jay[place], [place] [id number] MEDICAL DIRECTORFRANCHESCA MAGALLON M.D. Performed By: #### L ACTIC, SCAN CBC, AMM, CUBLD, PT, TSH3, HS TROP, PTT, CMP, ETOH, CK ####[address] [address] [facility] Glucose [Mass/volume] in Uri ne by Test stripOrdered By: Ralf White on 05-02-2024 Glucose Test strip (U) [Mass/Vol] Glucose [Mass/volume] in Urine by Test strip Normal [facility] Hemoglobin Test strip Ql (U) Ordered By: Ralf White on 05-02-2024 Hemoglobin Ql (U) Hemoglobin [Presence ] in Urine by Test strip High Negative [facility] Hyaline casts [#/area] in Ur ine sediment by Automated countOrdered By: Ralf White on 05-02-2024 Hyaline casts Auto (Urine sed) [#/Area] Hyaline casts [#/area] in Urine sediment by Automated count 0-8 [facility] Ketones Test strip Ql (U)Ord ered By: Ralf White on 05-02-2024 Ketones Ql (U) Ketones [Presence] i n Urine by Test strip High Negative [facility] Laboratory - Microbiology an d Antimicrobial susceptibilityOrdered By: Ralf White on 05-02-2024 Bacteria identified Cx Nom (Bld) Group B Strep (Streptococcus agalactiae) Abnormal [facility] Bacteria identified Cx Nom (Bld) Group B Strep (Streptococcus agalactiae) Abnormal [facility] Lactic Acidon 05-02-2024 Lactate [Moles/Vol] 1.3 mmol/L Normal 0.5-2.2 [facility] Comment on above: Result Comment: PERF ORMED BY:[facility] [place], [place] [phone] MEDICAL DIRECTORFRANCHESCA MAGALLON M.D. Performed By: #### L ACTIC, SCAN CBC, AMM, CUBLD, PT, TSH3, HS TROP, PTT, CMP, ETOH, CK ####[facility] [id number] [place] [id number] [facility] Leukocyte clumps [Presence] in Urine by AutomatedOrdered By: Ralf White on 05-02-2024 Leukocyte clumps Auto Ql (U) Leukocyte clumps [Presence] in Urine by Automated High None Seen [facility] Leukocyte esterase [Presence ] in Urine by Test stripOrdered By: Ralf White on 05-02-2024 Leukocyte esterase Test strip Ql (U) Leukocyte esterase [Presence] in Urine by Test strip High Negative [facility] Leukocytes [#/area] in Urine sediment by Automated countOrdered By: Ralf White on 05-02-2024 WBC Auto (Urine sed) [#/Area] Leukocytes [#/area] in Urine sediment by Automated count High 0-4 [facility] Monocyte distribution width [Entitic volume] in Blood by AutomatedOrdered By: Ralf White on 05-02-2024 Monocyte distribution width Auto (Bld) [Entitic vol] Monocyte distribution width [Entitic volume] in Blood by Automated High 0.00-20.00 [facility] Comment on above: For adults in ED, MD W > 20.0 may be associated with a higher risk of sepsis during the first 12 hrs of hospital admissionThe predictive value of MDW for identifying sepsis in patients with hematological abnormalities has not been established Mucus [Presence] in Urine by AutomatedOrdered By: Ralf White on 05-02-2024 Mucus Auto Ql (U) Mucus [Presence] in Urine by Automated Abnormal [facility] Nitrite Test strip Ql (U)Ord ered By: Ralf White on 05-02-2024 Nitrite Ql (U) Nitrite [Presence] i n Urine by Test strip Negative [facility] No Panel InformationOrdered By: Ralf White on 05-02-2024 Venous Blood Base Excess -3.7 mmol/L Low -3.0-3.0 [facility] Venous Blood Oxygen Saturation 73.9 % 73.0-76.0 [facility] Venous Blood Partial Pressure CO2 37.0 mm[Hg] Low 38.0-50.0 [facility] Venous Blood Partial Pressure O2 < 48.1 mm[Hg] High 35.0-45.0 [facility] Venous Blood pH 7.37 7.32-7.43 [facility] Bacterial ID (NA Multiplex Assay) [facility] Opiates [Presence] in Urine by Screen methodOrdered By: Ralf White on 05-02-2024 Opiates Screen Ql (U) Opiates [Presence] in Urine by Screen method Negative [facility] Partial Thromboplastin Timeo n 05-02-2024 aPTT Coag (Bld) [Time] 28.3 s Normal 25.1-36.5 [facility] Comment on above: Result Comment: A he matocrit value greater than 55% may lead to inaccurate results in coagulation testing. Patients having hematocrit values >55% require a special collection tube for coagulation studies. Please contact the laboratory at [phone] for redraw instructions.PERFORMED BY:[facility] [place], [place] [phone] MEDICAL DIRECTORFRANCHESCA MAGALLON M.D. Performed By: #### L ACTIC, SCAN CBC, AMM, CUBLD, PT, TSH3, HS TROP, PTT, CMP, ETOH, CK ####[facility] [place] [address] [facility] Phencyclidine Screen Ql (U)O rdered By: Ralf White on 05-02-2024 Phencyclidine Ql (U) Phencyclidine [Pres ence] in Urine by Screen method Negative [facility] Protein Test strip (U) [Mass /Vol]Ordered By: Ralf White on 05-02-2024 Protein (U) [Mass/Vol] Protein [Mass/vol ume] in Urine by Test strip High Negative [facility] Prothrombin Time INRon 05-02 INR Coag (PPP) [Relative time] 1.3 {INR} Normal [facility] Comment on above: Result Comment: INR Therapeutic Range A) Pre- and Peroperative OAT started two weeks before surgery. NOT HIP SURGERY: 1.5 - 2.5 HIP SURGERY: 2 - 3 B) Primary and secondary prevention of venous THROMBOSIS: 2 - 3 C) Active venous thrombosis, pulmonary embolism and prevention of recurrent venous thrombosis: 2 - 3 D) Prevention of arterial thromboembolism including patients with mechanical heart valves: 3 - 4.5 Performed By: #### L ACTIC, SCAN CBC, AMM, CUBLD, PT, TSH3, HS TROP, PTT, CMP, ETOH, CK ####[place] [id number] PT Coag (PPP) [Time] 14.9 s High 9.0-12.9 [facility] Comment on above: Result Comment: A matocrit value greater than 55% may lead to inaccurate results in coagulation testing. Patients having hematocrit values >55% require a special collection tube for coagulation studies. Please contact the laboratory at [phone] for redraw instructions. Performed By: #### L ACTIC, SCAN CBC, AMM, CUBLD, PT, TSH3, HS TROP, PTT, CMP, ETOH, CK ####[address] Respiratory (Upper) Panel, P CRon 05-02-2024 Respiratory (Upper) Panel, PCR Normal [facility] Comment on above: Performed By: #### B IOFIRECOVNOTDE, ADDONUAPLUS, RESP PANEL UPP., CUU, URDS ####[address] Respiratory pathogens DNA an d RNA panel - Nasopharynx by MARGARET with non-probe detectionOrdered By: Ralf White on 05-02-2024 Respiratory pathogens DNA and RNA panel MARGARET+non-probe (Nph) Respiratory pathogens DNA and RNA panel - Nasopharynx by MARGARET with non-probe detection [facility] Scan and CBCon 05-02-2024 Basophils (Bld) [#/Vol] 0.0 10*3/uL Normal 0.0-0.2 [facility] Comment on above: Performed By: #### L ACTIC, SCAN CBC, AMM, CUBLD, PT, TSH3, HS TROP, PTT, CMP, ETOH, CK ####[address] Basophils/100 WBC (Bld) 0.2 % Normal . [facility] Comment on above: Performed By: #### L ACTIC, SCAN CBC, AMM, CUBLD, PT, TSH3, HS TROP, PTT, CMP, ETOH, CK ####[address] Eosinophils (Bld) [#/Vol] 0.0 10*3/uL Normal 0.0-0.45 [facility] Comment on above: Performed By: #### L ACTIC, SCAN CBC, AMM, CUBLD, PT, TSH3, HS TROP, PTT, CMP, ETOH, CK ####[address] Eosinophils/100 WBC (Bld) 0.1 % Normal . [facility] Comment on above: Performed By: #### L ACTIC, SCAN CBC, AMM, CUBLD, PT, TSH3, HS TROP, PTT, CMP, ETOH, CK ####[address] Erythrocyte distribution width (RBC) [Ratio] 15.0 % High 12.0-14.8 [facility] Comment on above: Performed By: #### L ACTIC, SCAN CBC, AMM, CUBLD, PT, TSH3, HS TROP, PTT, CMP, ETOH, CK ####[address] Hematocrit (Bld) [Volume fraction] 42.0 % Normal 38.8-50.0 [facility] Comment on above: Performed By: #### L ACTIC, SCAN CBC, AMM, CUBLD, PT, TSH3, HS TROP, PTT, CMP, ETOH, CK ####[address] Hemoglobin (Bld) [Mass/Vol] 14.2 g/dL Normal 13.0-17.0 [facility] Comment on above: Performed By: #### L ACTIC, SCAN CBC, AMM, CUBLD, PT, TSH3, HS TROP, PTT, CMP, ETOH, CK ####[address] Lymphocytes (Bld) [#/Vol] 0.6 10*3/uL Low 1.00-4.8 [facility] Comment on above: Performed By: #### L ACTIC, SCAN CBC, AMM, CUBLD, PT, TSH3, HS TROP, PTT, CMP, ETOH, CK ####[address] Lymphocytes/100 WBC (Bld) 5.4 % Normal . [facility] Comment on above: Performed By: #### L ACTIC, SCAN CBC, AMM, CUBLD, PT, TSH3, HS TROP, PTT, CMP, ETOH, CK ####[address] MCH (RBC) [Entitic mass] 32.5 pg Normal 27.5-35.2 [facility] Comment on above: Performed By: #### L ACTIC, SCAN CBC, AMM, CUBLD, PT, TSH3, HS TROP, PTT, CMP, ETOH, CK ####[address] MCV (RBC) [Entitic vol] 96.4 fL Normal 83.5-101 [facility] Comment on above: Performed By: #### L ACTIC, SCAN CBC, AMM, CUBLD, PT, TSH3, HS TROP, PTT, CMP, ETOH, CK ####[address] Mean Corpuscular HGB Conc 33.7 g/dL Normal 32.5-35.6 [facility] Comment on above: Performed By: #### L ACTIC, SCAN CBC, AMM, CUBLD, PT, TSH3, HS TROP, PTT, CMP, ETOH, CK ####[address] Monocytes (Bld) [#/Vol] 0.5 10*3/uL Normal 0.0-0.8 [facility] Comment on above: Performed By: #### L ACTIC, SCAN CBC, AMM, CUBLD, PT, TSH3, HS TROP, PTT, CMP, ETOH, CK ####[address] Monocytes/100 WBC (Bld) 30.23 % High 0.00-20.00 [facility] Comment on above: Result Comment: For adults in ED, MDW > 20.0 may be associated with a higher risk of sepsis during the first 12 hrs of hospital admission The predictive value of MDW for identifying sepsis in patients with hematological abnormalities has not been established Performed By: #### L ACTIC, SCAN CBC, AMM, CUBLD, PT, TSH3, HS TROP, PTT, CMP, ETOH, CK ####[address] Monocytes/100 WBC (Bld) 4.6 % Normal . [facility] Comment on above: Performed By: #### L ACTIC, SCAN CBC, AMM, CUBLD, PT, TSH3, HS TROP, PTT, CMP, ETOH, CK ####[address] Neutrophils (Bld) [#/Vol] 10.6 10*3/uL High 1.8-7.7 [facility] Comment on above: Performed By: #### L ACTIC, SCAN CBC, AMM, CUBLD, PT, TSH3, HS TROP, PTT, CMP, ETOH, CK ####[address] Neutrophils/100 WBC (Bld) 89.7 % Normal . [facility] Comment on above: Performed By: #### L ACTIC, SCAN CBC, AMM, CUBLD, PT, TSH3, HS TROP, PTT, CMP, ETOH, CK ####[place] [id number] [facility] NRBC% 0.0 /100{WBC} Normal 0-0.5 [facility] Comment on above: Performed By: #### L ACTIC, SCAN CBC, AMM, CUBLD, PT, TSH3, HS TROP, PTT, CMP, ETOH, CK ####[place] [id number] [facility] Platelet Estimate Normal Normal Normal [facility] Comment on above: Performed By: #### L ACTIC, SCAN CBC, AMM, CUBLD, PT, TSH3, HS TROP, PTT, CMP, ETOH, CK ####[address] Platelet mean volume (Bld) [Entitic vol] 7.5 fL Normal 6.6-10.1 [facility] Comment on above: Performed By: #### L ACTIC, SCAN CBC, AMM, CUBLD, PT, TSH3, HS TROP, PTT, CMP, ETOH, CK ####[address] Platelet Morphology Normal Normal Normal [facility] Comment on above: Result Comment: PERF ORMED BY:[address] [place], [place] [phone] MEDICAL DIRECTORFRANCHESCA MAGALLON M.D. Performed By: #### L ACTIC, SCAN CBC, AMM, CUBLD, PT, TSH3, HS TROP, PTT, CMP, ETOH, CK ####[address] Platelets (Bld) [#/Vol] 159 10*3/uL Normal 150-450 [facility] Comment on above: Performed By: #### L ACTIC, SCAN CBC, AMM, CUBLD, PT, TSH3, HS TROP, PTT, CMP, ETOH, CK ####[address] RBC (Bld) [#/Vol] 4.36 10*6/uL Normal 3.90-5.60 [facility] Comment on above: Performed By: #### L ACTIC, SCAN CBC, AMM, CUBLD, PT, TSH3, HS TROP, PTT, CMP, ETOH, CK ####[address] RBC morphology finding Nom (Bld) Normal Normal Normal [facility] Comment on above: Performed By: #### L ACTIC, SCAN CBC, AMM, CUBLD, PT, TSH3, HS TROP, PTT, CMP, ETOH, CK ####[address] [place] [address] [place] Toxic Granulation Slight Normal [facility] Comment on above: Performed By: #### L ACTIC, SCAN CBC, AMM, CUBLD, PT, TSH3, HS TROP, PTT, CMP, ETOH, CK ####[address] Toxic Vacuolation Moderate Normal [facility] Comment on above: Performed By: #### L ACTIC, SCAN CBC, AMM, CUBLD, PT, TSH3, HS TROP, PTT, CMP, ETOH, CK ####[address] WBC (Bld) [#/Vol] 11.8 10*3/uL High 4.1-10.5 [facility] Comment on above: Performed By: #### L ACTIC, SCAN CBC, AMM, CUBLD, PT, TSH3, HS TROP, PTT, CMP, ETOH, CK ####[address] Specific gravity Test strip (U) [Rel density]Ordered By: Ralf White on 05-02-2024 Specific gravity (U) [Rel density] Specific gravity of Urine by Test strip 1.001-1.[address] [facility] Thyroid Stimulating Hormoneo n 05-02-2024 TSH Qn 1.87 m[IU]/L Normal 0.45-5.33 [facility] Comment on above: Result Comment: PERF ORMED BY:[address] [place], [place] [phone] MEDICAL DIRECTORFRANCHESCA MAGALLON M.D. Performed By: #### L ACTIC, SCAN CBC, AMM, CUBLD, PT, TSH3, HS TROP, PTT, CMP, ETOH, CK ####[address] Thyrotropin [Units/volume] i n Serum or PlasmaOrdered By: Ralf White on 05-02-2024 TSH Qn Thyrotropin [Units/v olume] in Serum or Plasma 0.45-5.33 [facility] Toxic leukocyte vacuolation detectionOrdered By: Ralf White on 05-02-2024 Leukocyte toxic vacuoles LM Ql (Bld) Toxic leukocyte vacuolation detection [facility] Transitional cells [#/area] in Urine by Computer assisted methodOrdered By: Ralf White on 05-02-2024 Transitional cells Computer assisted (U) [#/Area] Transitional cells [#/area] in Urine by Computer assisted method High 0-1 [facility] Troponin I High Sensitivityo n 05-02-2024 Troponin I High Sensitivity 106.7 pg/mL Off scale high 0.0-20.0 [facility] Comment on above: Result Comment: Crit ical Result : Called to and read back by: SAHARA PARKS at: 05/02/2024 11:40:17 by:DOREENERFORMED BY:[address] [place], [place] [id number] MEDICAL DIRECTORFRANCHESCA MAGALLON M.D. Performed By: #### L ACTIC, SCAN CBC, AMM, CUBLD, PT, TSH3, HS TROP, PTT, CMP, ETOH, CK ####[facility] [id number] [place] [id number] [facility] Urine Cultureon 05-02-2024 Bacteria identified Cx Nom (U) Normal [facility] Comment on above: Performed By: #### B IOFIRECOVNOTDE, ADDONUAPLUS, RESP PANEL UPP., CUU, URDS ####[address] [address] [facility] Urine cultureOrdered By: Sayda White on 05-02-2024 Bacteria identified Cx Nom (U) Abnormal [facility] Bacteria identified Cx Nom (U) Group B Strep (Streptococcus agalactiae) Abnormal [facility] Urobilinogen Test strip (U) [Mass/Vol]Ordered By: Ralf White on 05-02-2024 Urobilinogen (U) [Mass/Vol] Urobilinogen [Mass/volume] in Urine by Test strip High Normal [facility] Venous Blood GasOrdered By: Ralf White on 05-02-2024 CO2 [Moles/Vol] 22.2 mmol/L Low 24.0-29.0 [facility] Comment on above: Performed By: #### V BG ####Point of Care testing, HCO3 (Bld) [Moles/Vol] 21.1 mmol/L Low 23.0-29.0 [facility] Comment on above: Performed By: #### V BG ####Point of Care testing, Venous Blood Gason Respiratory Critical Normal [facility] Comment on above: Result Comment: Crit ical Value called on: 05/02/2024 at 13:24PERFORMED BY:[facility] [place], [place] [phone] MEDICAL DIRECTORFRANCHESCA MAGALLON M.D. Performed By: #### V BG ####Point of Care testing, VBG Base Excess -3.7 mmol/L Low -3.0-3.0 [facility] Comment on above: Performed By: #### V BG ####Point of Care testing, VBG Draw Site Venous Normal [facility] Comment on above: Performed By: #### V BG ####Point of Care testing, VBG Frac Inspired O2 21 % Normal [facility] Comment on above: Performed By: #### V BG ####Point of Care testing, VBG Oxygen Saturation 73.9 % Normal 73.0-76.0 [facility] Comment on above: Performed By: #### V BG ####Point of Care testing, VBG PCO2 37.0 mm[Hg] Low 38.0-50.0 [facility] Comment on above: Performed By: #### V BG ####Point of Care testing, VBG PH Venous PH 7.37 Normal 7.32-7.43 [facility] Comment on above: Performed By: #### V BG ####Point of Care testing, VBG PO2 <48.1 High 35.0-45.0 [facility] Comment on above: Performed By: #### V BG ####Point of Care testing, X-ray reportOrdered By: Nilo Raphael on 05-02-2024 Study report [facility] [address] [address] XRay Report Signed Patient: Juan Simon MR#: [id number] : 1955 Acct:[id number] Age/Sex: 68 / M ADM Date: 4 Loc: Room: [address] [place] [address] Type: ADM IN Attending Dr: Skyler Sanchez MD Copies to: DO Skyler Gates MD~ Ordering Provider: Ralf White DO Date of Service: 05/02/24 XR/XR chest 1V portable: Chest Pain SINGLE VIEW CHEST CLINICAL HISTORY: Cough confusion fever Central line placement COMPARISON: Chest 05/02/2024 FINDINGS: New right-sided IJ line tip at the brachiocephalic/SVC junction. Heart and mediolateral structures appear unchanged. Nodule involving the right upper lobeis unchanged. No pneumothorax pleural effusion or free air. XR/XR chest 1V portable IMPRESSION: RIGHT-SIDED IJ LINE TIP AT THE BRACHIOCEPHALIC/SVC JUNCTION. NO PNEUMOTHORAX. Impression dictated by: Triston Raphael Jr., D.OHaley05/02/2024 3:33 PM Dictation Location: [facility] Transcribed By: [facility] 05/02/24 1533 Dictated By: Triston Raphael Jr, DO 05/02/24 1532 Signed By: 05/02/[address] [facility] X-ray reportOrdered By: Xander Solano on 05-02-2024 Study report [facility] [address] [address] XRay Report Signed Patient: Juan Simon MR#: [id number] : 1955 Acct:[id number] Age/Sex: 68 / M ADM Date: 4 Loc: ER Room: Type: [facility] ER Attending Dr: Copies to: Ralf White DO~ Ordering Provider: Ralf White DO Date of Service: 05/02/24 XR/XR chest 2V*: Altered Mental Status XR chest 2V* 05/02/2024 10:21 AM SIGNS AND SYMPTOMS: Cough, confusion, fever PROTOCOL: Frontal and lateral graphs of the chest COMPARISON: 01/11/2024 FINDINGS: The trachea is midline. The heart and mediastinal structures are within normal limits. There is a 7 mm calcified granuloma in the right upper chest laterally. Degenerative changes are noted in the shoulders and thoracic spine. The bony thorax is intact. A spinal cord stimulator is present. Surgical clips are noted in the right upper quadrant. XR/XR chest 2V* IMPRESSION: No acute cardiopulmonary pathology. Additional chronic findings are redemonstrated as above. Impression dictated by: Xander Solano M.D.05/02/2024 2:25 PM Dictation Location: [facility] Transcribed By: MERCEDES 05/02/241424 Dictated By: Xander Soalno II, MD 05/02/241419 Signed By: 05/02/[address] [facility] Work Phone: XR chest 1V portableon 05-02 XR chest 1V portable Normal [facility] XR chest 2V*on 05-02-2024 XR chest 2V* Normal [facility] aPTT in Platelet poor plasma by Coagulation assayOrdered By: Ralf White on 05-02-2024 aPTT Coag (PPP) [Time] Activated partial thromboplastin time (aPTT) in platelet poor plasma by coagulation a 25.1-36.5 [facility] Comment on above: A hematocrit value g reater than 55% may lead to inaccurate results in coagulation testing. Patients having hematocrit values >55% require a special collection tube for coagulation studies. Please contact the laboratory at [phone] for redraw instructions. pH Test strip (U)Ordered By: Ralf White on 05-02-2024 pH (U) pH of Urine by Test strip 5.0-9.0 [facility] CBC W Auto Differential pane l (Bld)on 04-23-2024 Basophils (Bld) [#/Vol] 0 10*3/uL N [facility] Basophils/100 WBC (Bld) 0 % Not Estab. N [facility] Eosinophils (Bld) [#/Vol] 0.1 10*3/uL [facility] Eosinophils/100 WBC (Bld) 1 % Not Estab. [facility] Erythrocyte distribution width (RBC) [Ratio] 12.9 % 11.6 - 15.4 % [facility] Hematocrit (Bld) [Volume fraction] 45.3 % 37.5 - 51.0 % [facility] Hemoglobin (Bld) [Mass/Vol] 15 g/dL 13.0 - 17.7 g/dL [facility] Immature granulocytes (Bld) [#/Vol] 0.1 10*3/uL [facility] Immature granulocytes/100 WBC (Bld) 1 % Not Estab. [facility] Lymphocytes (Bld) [#/Vol] 3 10*3/uL [facility] Lymphocytes/100 WBC (Bld) 31 % Not Estab. [facility] MCH (RBC) [Entitic mass] 32.3 pg 26.6 - 33.0 pg [facility] MCHC (RBC) [Mass/Vol] 33.1 g/dL 31.5 - 35.7 g/dL [facility] MCV (RBC) [Entitic vol] 98 fL High 79 - 97 fL N [facility] Monocytes (Bld) [#/Vol] 0.6 10*3/uL [facility] Monocytes/100 WBC (Bld) 7 % Not Estab. N [facility] Neutrophils (Bld) [#/Vol] 5.7 10*3/uL [facility] Neutrophils/100 WBC (Bld) 60 % Not Estab. [facility] Platelets (Bld) [#/Vol] 384 10*3/uL [facility] RBC (Bld) [#/Vol] 4.64 10*6/uL [facility] WBC (Bld) [#/Vol] 9.5 10*3/uL [facility] Comprehensive metabolic pane raudel 04-23-2024 Albumin [Mass/Vol] 4 g/dL 3.9 - 4.9 g/dL [facility] ALP [Catalytic activity/Vol] 93 U/L [facility] ALT [Catalytic activity/Vol] 26 U/L [facility] AST [Catalytic activity/Vol] 15 U/L [facility] Bilirubin [Mass/Vol] 0.5 mg/dL 0.0 - 1 .2 mg/dL [facility] Calcium [Mass/Vol] 8.8 mg/dL 8.6 - 10. 2 mg/dL [facility] Chloride [Moles/Vol] 99 mmol/L 96 - 10 6 mmol/L [facility] CO2 [Moles/Vol] 26 mmol/L 20 - 29 mmol/L [facility] Creatinine [Mass/Vol] 0.87 mg/dL 0.76 - 1.27 mg/dL [facility] GFR/1.73 sq M.predicted among non-blacks MDRD (S/P/Bld) [Vol rate/Area] 95 mL/min/{1.73_m2} 59 - PINF mL/min/1.7 3 [facility] Globulin (S) [Mass/Vol] 2.1 g/dL 1.5 - 4.5 g/dL [facility] Glucose [Mass/Vol] 87 mg/dL 70 - 99 mg/dL [facility] Potassium [Moles/Vol] 4.8 mmol/L 3.5 - 5.2 mmol/L [facility] Protein [Mass/Vol] 6.1 g/dL 6.0 - 8.5 g/dL [facility] Sodium [Moles/Vol] 138 mmol/L 134 - 144 mmol/L [facility] Urea nitrogen [Mass/Vol] 16 mg/dL 8 - 27 mg/dL [facility] Urea nitrogen/Creatinine [Mass ratio] 18 mg/mg 10 - 24 [facility] Hemoglobin A1con 04-23-2024 HbA1c (Bld) [Mass fraction] 6.2 % High 4.8 - 5.6 % [facility] Comment on above: Prediabetes: 5.7 - 6 .4 Diabetes: >6.4 Glycemic control for adults with diabetes: <7.0 No Panel Informationon 04-23 Interpretation and review of laboratory results Abnormal [facility] Performed at: 01 - [address] [id number] Bilingual Hr Generalist: Tin Dunn PhD, Phone: [phone] [facility] PSAon 04-23-2024 Prostate specific Ag [Mass/Vol] 2.4 ng/mL 0.0 - 4.0 ng/mL [facility] Comment on above: Macy ECLIA methodol ogy. According to the [place] [employer], Serum PSA should decrease and remain at undetectable levels after radical prostatectomy. The AUA defines biochemical recurrence as an initial PSA value 0.2 ng/mL or greater followed by a subsequent confirmatory PSA value 0.2 ng/mL or greater. Values obtained with different assay methods or kits cannot be used interchangeably. Results cannot be interpreted as absolute evidence of the presence or absence of malignant disease. Specimen Status Reporton Clindamycin Disk diffusion (KB) [[facility] Comment [facility] Comment on above: Mitra Brush CMP14 D efault Mitra Brush [facility]14 Default A hand-written panel/profile was received from your office. In accordance with the [facility] Ambiguous Test Code Policy dated November 2002, we have completed your order by using the closest currently or formerly recognized AMA panel. We have assigned Comprehensive Metabolic Panel (14), Test Code #885743 to this request. If this is not the testing you wished to receive on this specimen, please contact the [facility] Client Inquiry/Technical Services Department to clarify the test order. We appreciate your business. CNOVon 03-18-2024 CNOV Office Visit (NEURAV ) -- JUAN SIMON ([id number]) 1955 Preeti Date Time Provider Department 03/18/24 9:00 AM JIMMY CASTLE NEURIDALMIS During your visit today, we recorded the following information about you: Pulse Blood pressure 92/minute 145/72 Jimmy Castle DO 03/24/2024 1:52 PM Signed [facility] New Patient Consultation March 18, 2024 HPI: Mr. Simon, who is accompanied by his and daughter (a RN) with her permission, presents today secondary to multiple issues including frequent falls, tension headaches, migraines, and memory loss as requerst by his PCP Dr Lisa Benson D.O. He states that he feels the falling and memory is his largest issue and that he wants to discuss most today. They state he has had headaches/migraines for years. They note chronic low back pain and degenerative disc disease for which he had a spinal cord stimulator, nerve ablations two weeks ago, and chronic medications for pain. He uses a walker to ambulate. His falls have been ongoing over several years, worse in the last 3 months. He cannot say why he falls but then states he can be lightheadedness with position changes. Most of the falls are in the daytime. He has hit his head as part of some of these falls including two jose cruz in the back of the head as part of a fall in 12/2023. He was in the emergency room 3 times in the that month. All of these were at [facility]. After having these Dr Benson, his PCP, placed him on antivert. He felt that the antivert did not help and may have made him tired. In the second fall he was found to have fever then pneumonia and COVID infection. He was admitted and discharged with home rehab/therapy for a month including occupational therapy. Near that time he was mistaking some of his medications so his has since taken over filling his medication box for each week. 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 He feels he stays well hydrated for the most part. His disagrees. He eats sporadically eating twice a day on average. His breakfast they feel is good, but eats little the rest of the day. He feels he eats protein pretty well. They state he did not have medication changes then. He has been seeing neurologist locally, Dr Lavern Dahl, and her nurse practitioner. They were addressing his memory issues and confusion. He was referred for neuropsychiatric testing and MRI brain. In the interpretation of neuropsychiatric testing he was not thought to have dementia. They feel his issues began when placed on gabapentin over a year ago from pain management. With this he had confusion, balance issues and has been off of it this year. He has tremor issues, longstanding but not diagnosed or evaluated for this. He has not had treatment of his tremors. He denies head injury other than with the fall in December. He denies history of stroke, MD, and/or seizures that he is aware of. He has some right sided chronic issues of movement through most of his life and known scoliosis. He has been in physical and occupational therapy with issues in transfer and motion. He denies feeling issues with moving when he wishes to. His tremors are worse with motion, fine activities, writing, and improve with relaxing. He is not aware of emotions affecting tremors. He caffeine intake is limited. In regards to memory he can lose things, misplace things (such as remotes, keys, wallet, etc..). He can have issues with carrying on of conversations with word finding issues. He can talk in nikolai. His will need to get words for him for what he wants to say. He admits he repeats himself. He has an associate's degree in Business Administration. He states he was an average student., In elementary school he was placed in special education classes. He admits he may have attention deficit, but not diagnosed with this. He lives with his . He states he will cook at times. He denies forgetting ingredients or burning food, but has left the stove or burners on one to two times. Each time this happened he states he was when distracted and both instances were in the distant past. He has turned on the wrong burners at times. He is not driving. Prior to stopping denies getting lost, forgetting how to get places, or how to get there. He has vision issues in one eye. He does not sleep well. He has sleep apnea but not using CPAP. He feels his moods have been better, He denies depression. His prepares his medications in a pill box each week. He denies he has to be reminded to take his medications and now does not think he has been mistaking or not taking his medication. There is an uncle with de (more content not included)... Normal [facility] US CAROTID ARTERY DUPLE X BILATERALon 02-10-2024 [facility] US CAROTID ARTERY DUPLEX BILATERAL EXAM: Carotid Ultrasound: REASON FOR EXAM: Dizziness. COMPARISON: None TECHNIQUE: Grayscale, color Doppler, and spectral analysis of the extracranial carotid and vertebral arteries performed. FINDINGS: Right Carotid: The exam was technically difficult. No apparent plaque or stenosis by velocities. Left Carotid: The exam was technically difficult. No plaque or stenosis by velocities. Vertebral Arteries: Antegrade flow Measurements: RT CCA: 87/19 RT BULB: 65/23 RT ICA: P: 102/30 M: 64/19 D: 117/41 RT ECA: 121 RT VERT: 67 RT ICA/CCA RATIO: Not calculated LT CCA: 81/15 LT BULB: 67/15 LT ICA: P: 61/25 M: 65/30 D: 89/44 LT ECA: 83 RT VERT: 78 LT ICA/CCA RATIO: Not calculated IMPRESSION: No visible plaque or hemodynamically significant carotid stenosis. *This report is generated using voice recognition reporting ([employer]). On occasion pic5cribe erroneously drops words from the report or replaces the spoken word with similar sounding words. Please call with any questions/concerns regarding this report.* Dictated and transcribed 02/10/24/dpd This report has been electronically signed and approved by the interpreting radiologist. Electronically Signed Conor Lopez D.O. 2024-02-10 09:43:[address] cervical spine wo conon 0 01-11-2024 CT cervical spine wo con Normal [facility] XR chest 2V*on 01-11-2024 XR chest 2V* Normal [facility] Alanine aminotransferase [En zymatic activity/volume] in Serum or PlasmaOrdered By: Ralf White on 01-10-2024 ALT [Catalytic activity/Vol] 23 U/L Normal 7-52 [facility] Comment on above: Performed By: #### T SH3, BMP, AMM, HEPATIC, MG, CBC ####[facility] [id number] [place] [address] [facility] Albumin [Mass/volume] in Ser um or Plasma by Bromocresol green (BCG) dye binding methoOrdered By: Ralf White on 01-10-2024 Albumin BCG dye [Mass/Vol] 3.5 g/dL 3.5-5.7 [facility] Alkaline phosphatase [Enzyma tic activity/volume] in Serum or PlasmaOrdered By: Ralf White on 01-10-2024 ALP [Catalytic activity/Vol] 77 U/L Normal 34-104 [facility] Comment on above: Performed By: #### T SH3, BMP, AMM, HEPATIC, MG, CBC ####[facility] [address] [place] [address] [place] Ammonia [Moles/volume] in Pl asmaOrdered By: Ralf White on 01-10-2024 Ammonia (P) [Moles/Vol] 28 umol/L Normal 11-35 [facility] Comment on above: Result Comment: PERF ORMED BY:[place] [address] [place], [place] [phone] MEDICAL DIRECTORZEFERINO ZIMMER M.D. Performed By: #### T SH3, BMP, AMM, HEPATIC, MG, CBC ####[address] Aspartate aminotransferase [ Enzymatic activity/volume] in Serum or PlasmaOrdered By: Ralf White on 01-10-2024 AST [Catalytic activity/Vol] 20 U/L Normal 13-39 [facility] Comment on above: Performed By: #### T SH3, BMP, AMM, HEPATIC, MG, CBC ####[address] Automated basophil %Ordered By: Ralf White on 01-10-2024 Basophils/100 WBC (Bld) 1.2 % Normal . [facility] Comment on above: Performed By: #### T SH3, BMP, AMM, HEPATIC, MG, CBC ####[address] Automated basophil countOrde red By: Ralf White on 01-10-2024 Basophils (Bld) [#/Vol] 0.1 10*3/uL Normal 0.0-0.2 [facility] Comment on above: Result Comment: PERF ORMED BY:[place] [address] [place], [place] [phone] MEDICAL DIRECTORZEFERINO ZIMMER M.D. Performed By: #### T SH3, BMP, AMM, HEPATIC, MG, CBC ####[place] [id number] [facility] Automated blood monocyte cou ntOrdered By: Ralf White on 01-10-2024 Monocytes (Bld) [#/Vol] 0.7 10*3/uL Normal 0.0-0.8 [facility] Comment on above: Performed By: #### T SH3, BMP, AMM, HEPATIC, MG, CBC ####[address] Automated eosinophil %Ordere d By: Ralf White on 01-10-2024 Eosinophils/100 WBC (Bld) 1.9 % Normal . [facility] Comment on above: Performed By: #### T SH3, BMP, AMM, HEPATIC, MG, CBC ####[address] Automated eosinophil countOr dered By: Ralf White on 01-10-2024 Eosinophils (Bld) [#/Vol] 0.1 10*3/uL Normal 0.0-0.45 [facility] Comment on above: Performed By: #### T SH3, BMP, AMM, HEPATIC, MG, CBC ####[address] Automated monocyte %Ordered By: Ralf White on 01-10-2024 Monocytes/100 WBC (Bld) 9.0 % Normal . [facility] Comment on above: Performed By: #### T SH3, BMP, AMM, HEPATIC, MG, CBC ####[address] Automated neutrophil %Ordere d By: Ralf White on 01-10-2024 Neutrophils/100 WBC (Bld) 56.9 % Normal . [facility] Comment on above: Performed By: #### T SH3, BMP, AMM, HEPATIC, MG, CBC ####[place] [id number] [facility] BNP ser/plasOrdered By: Maxime White on 01-10-2024 Natriuretic peptide B (Bld) [Mass/Vol] 23.0 pg/mL Normal 5-100 [facility] Comment on above: Result Comment: PERF ORMED BY:[address] [place], [place] [phone] MEDICAL DIRECTORZEFERINO ZIMMER M.D. Performed By: #### E SR, CRP, BNP ####[address] [place] [address] [facility] Basic Metabolic Panelon GFR/1.73 sq M.predicted MDRD (S/P/Bld) [Vol rate/Area] mL/min/{1.73_m2} Normal [facility] Comment on above: Performed By: #### T SH3, BMP, AMM, HEPATIC, MG, CBC ####[address] [address] [facility] Bilirubin Test strip Ql (U)O rdered By: Ralf White on 01-10-2024 Bilirubin Ql (U) Negative Negative [facility] Bilirubin.direct [Mass/volum e] in Serum or PlasmaOrdered By: Ralf White on 01-10-2024 Bilirubin.direct [Mass/Vol] 0.10 mg/dL 0.03-0.18 [facility] Bilirubin.total [Mass/volume ] in Serum or PlasmaOrdered By: Ralf White on 01-10-2024 Bilirubin [Mass/Vol] 0.7 mg/dL Normal 0.3-1.0 [facility] Comment on above: Performed By: #### T SH3, BMP, AMM, HEPATIC, MG, CBC ####[address] [address] [facility] C reactive protein [Mass/vol ume] in Serum or PlasmaOrdered By: Ralf White on 01-10-2024 CRP [Mass/Vol] 0.9 mg/dL High 0.0-0.5 [facility] C-Reactive Proteinon 024 C-Reactive Protein 0.9 mg/dL High 0.0-0.5 [facility] Comment on above: Result Comment: PERF ORMED BY:[address] [place], [place] [phone] MEDICAL DIRECTORZEFERINO ZIMMER M.D. Performed By: #### E SR, CRP, BNP ####[address] [address] [facility] Calcium [Mass/volume] in Ser um or PlasmaOrdered By: Ralf White on 01-10-2024 Calcium [Mass/Vol] 8.6 mg/dL Normal 8.6-10.3 [facility] Comment on above: Performed By: #### T SH3, BMP, AMM, HEPATIC, MG, CBC ####[place] [id number] [facility] Carbon dioxide, total [Moles /volume] in Serum or PlasmaOrdered By: Ralf White on 01-10-2024 CO2 [Moles/Vol] 28.3 mmol/L Normal 21.0-31.0 [facility] Comment on above: Performed By: #### T SH3, BMP, AMM, HEPATIC, MG, CBC ####[place] [id number] [facility] Chloride [Moles/volume] in S kay or PlasmaOrdered By: Ralf White on 01-10-2024 Chloride [Moles/Vol] 102 mmol/L Normal 98-107 [facility] Comment on above: Performed By: #### T SH3, BMP, AMM, HEPATIC, MG, CBC ####[place] [id number] [facility] Color of Urine by AutoOrdere d By: Ralf White on 01-10-2024 Color (U) Colorless Normal Yellow [facility] Comment on above: Order Comment: Name Collection Type:: Clean-Voided Midstream Performed By: #### U A ####[place] [id number] [facility] Complete Blood Count Auto Di ffon 01-10-2024 Mean Corpuscular HGB Conc 34.0 g/dL Normal 32.5-35.6 [facility] Comment on above: Performed By: #### T SH3, BMP, AMM, HEPATIC, MG, CBC ####[place] [id number] [facility] Monocytes/100 WBC (Bld) 22.28 % High 0.00-20.00 [facility] Comment on above: Result Comment: For adults in ED, MDW > 20.0 may be associated with a higher risk of sepsis during the first 12 hrs of hospital admission Performed By: #### T SH3, BMP, AMM, HEPATIC, MG, CBC ####[place] [id number] [place] [id number] [facility] NRBC% 0.1 /100{WBC} Normal 0-0.5 [facility] Comment on above: Performed By: #### T SH3, BMP, AMM, HEPATIC, MG, CBC ####[place] [id number] [place] [id number] [facility] Creatinine [Mass/volume] in Serum or PlasmaOrdered By: Ralf White on 01-10-2024 Creatinine [Mass/Vol] 0.94 mg/dL Normal 0.70-1.30 [facility] Comment on above: Performed By: #### T SH3, BMP, AMM, HEPATIC, MG, CBC ####[place] [id number] [place] [id number] [facility] Erythrocyte Sedimentation Ra marcio 01-10-2024 ESR (Bld) [Velocity] 26 mm/h High 0-19 [facility] Comment on above: Result Comment: PERF ORMED BY:[address] [place], [place] [phone] MEDICAL DIRECTORZEFERINO ZIMMER M.D. Performed By: #### E SR, CRP, BNP ####[place] [id number] [facility] Erythrocyte distribution wid th [Ratio] by Automated countOrdered By: Ralf White on 01-10-2024 Erythrocyte distribution width (RBC) [Ratio] 13.5 % Normal 12.0-14.8 [facility] Comment on above: Performed By: #### T SH3, BMP, AMM, HEPATIC, MG, CBC ####[place] [id number] [facility] Erythrocyte sedimentation ra te by Photometric methodOrdered By: Ralf White on 01-10-2024 ESR Photometric method (Bld) [Velocity] 26 mm/hr High 0-19 [facility] Erythrocytes [#/volume] in B lood by Automated countOrdered By: Ralf White on 01-10-2024 RBC (Bld) [#/Vol] 4.04 10*6/uL Normal 3.90-5.[address] [facility] Comment on above: Performed By: #### T SH3, BMP, AMM, HEPATIC, MG, CBC ####[facility] [address] [place] [id number] [facility] Glucose [Mass/volume] in Ser um or PlasmaOrdered By: Ralf White on 01-10-2024 Glucose [Mass/Vol] 101 mg/dL High 70-100 [facility] Comment on above: ADA recommended refe rence rangeRandom Glucose Reference Range is dependent on time and content of last meal. Glucose of more than 200 mg/dL in a nonstressed, ambulatory subject supports the diagnosis of Diabetes Mellitus. Result Comment: [place] om Glucose Reference Range is dependent on time and content of last meal. Glucose of more than 200 mg/dL in a nonstressed, ambulatory subject supports the diagnosis of Diabetes Mellitus. ADA recommended reference range Performed By: #### T SH3, BMP, AMM, HEPATIC, MG, CBC ####[facility] [place] [id number] [facility] Glucose [Mass/volume] in Uri ne by Test stripOrdered By: Ralf White on 01-10-2024 Glucose Test strip (U) [Mass/Vol] Normal mg/dL Normal [facility] Hematocrit [Volume Fraction] of Blood by Automated countOrdered By: Ralf White on 01-10-2024 Hematocrit (Bld) [Volume fraction] 39.6 % Normal 38.8-50.0 [facility] Comment on above: Performed By: #### T SH3, BMP, AMM, HEPATIC, MG, CBC ####[facility] [address] [place] [id number] [facility] Hemoglobin Test strip Ql (U) Ordered By: Ralf White on 01-10-2024 Hemoglobin Ql (U) Negative Negative [facility] Hemoglobin [Mass/volume] in BloodOrdered By: Ralf White on 01-10-2024 Hemoglobin (Bld) [Mass/Vol] 13.4 g/dL Normal 13.0-17.0 [facility] Comment on above: Performed By: #### T SH3, BMP, AMM, HEPATIC, MG, CBC ####[facility] [place] [address] [facility] Hepatic Panelon 01-10-2024 Albumin [Mass/Vol] 3.5 g/dL Normal 3.5-5.7 [facility] Comment on above: Performed By: #### T SH3, BMP, AMM, HEPATIC, MG, CBC ####[place] [id number] [facility] Bilirubin,Indirect 0.6 mg/dL Normal [facility] Comment on above: Performed By: #### T SH3, BMP, AMM, HEPATIC, MG, CBC ####[place] [id number] [facility] Bilirubin.indirect [Mass/Vol] 0.10 mg/dL Normal 0.03-0.18 [facility] Comment on above: Performed By: #### T SH3, BMP, AMM, HEPATIC, MG, CBC ####[place] [id number] [facility] Ketones [Presence] in Urine by Test stripOrdered By: Ralf White on 01-10-2024 Ketones Ql (U) Negative Normal Negative [facility] Comment on above: Order Comment: Name Collection Type:: Clean-Voided Midstream Performed By: #### U A ####[place] [id number] [facility] Leukocyte esterase [Presence ] in Urine by Test stripOrdered By: Ralf White on 01-10-2024 Leukocyte esterase Test strip Ql (U) Negative Normal Negative [facility] Comment on above: Order Comment: Name Collection Type:: Clean-Voided Midstream Performed By: #### U A ####[place] [id number] [facility] Leukocytes [#/volume] correc suri for nucleated erythrocytes in Blood by Automated counOrdered By: aRlf White on 01-10-2024 WBC corrected for nucl RBC Auto (Bld) [#/Vol] 7.8 10*3/uL 4.1-10.5 [facility] Leukocytes [#/volume] in Blo od by Automated countOrdered By: Ralf White on 01-10-2024 WBC (Bld) [#/Vol] 7.8 10*3/uL Normal 4.1-10.5 [facility] Comment on above: Performed By: #### T SH3, BMP, AMM, HEPATIC, MG, CBC ####[address] Lymphocytes [#/volume] in Bl ood by Automated countOrdered By: Ralf White on 01-10-2024 Lymphocytes (Bld) [#/Vol] 2.4 10*3/uL Normal 1.00-4.8 [facility] Comment on above: Performed By: #### T SH3, BMP, AMM, HEPATIC, MG, CBC ####[place] [address] Lymphocytes/100 leukocytes i n Blood by Automated countOrdered By: Ralf White on 01-10-2024 Lymphocytes/100 WBC (Bld) 31.0 % Normal . [facility] Comment on above: Performed By: #### T SH3, BMP, AMM, HEPATIC, MG, CBC ####[address] MCH [Entitic mass] by Automa suri countOrdered By: Ralf White on 01-10-2024 MCH (RBC) [Entitic mass] 33.2 pg Normal 27.5-35.2 [facility] Comment on above: Performed By: #### T SH3, BMP, AMM, HEPATIC, MG, CBC ####[facility] [address] [place] [address] MCHC Auto (RBC) [Mass/Vol]Or dered By: Ralf White on 01-10-2024 MCHC (RBC) [Mass/Vol] 34.0 g/dL 32.5-35.6 [facility] MCV [Entitic volume] by Auto mated countOrdered By: Ralf White on 01-10-2024 MCV (RBC) [Entitic vol] 97.9 fL Normal 83.5-101 F [facility] Comment on above: Performed By: #### T SH3, BMP, AMM, HEPATIC, MG, CBC ####[facility] [address] [place] [id number] [facility] Magnesium [Mass/volume] in S kay or PlasmaOrdered By: Ralf White on 01-10-2024 Magnesium [Mass/Vol] 1.7 mg/dL Low 1.9-2.7 [facility] Comment on above: Performed By: #### T SH3, BMP, AMM, HEPATIC, MG, CBC ####[place] [address] [place] [id number] [facility] Monocyte distribution width [Entitic volume] in Blood by AutomatedOrdered By: Ralf White on 01-10-2024 Monocyte distribution width Auto (Bld) [Entitic vol] 22.28 % High 0.00-20.00 [facility] Comment on above: For adults in ED, MD W > 20.0 may be associated with a higher risk of sepsis during the first 12 hrs of hospital admission Neutrophils [#/volume] in Bl ood by Automated countOrdered By: Ralf White on 01-10-2024 Neutrophils (Bld) [#/Vol] 4.4 10*3/uL Normal 1.8-7.7 [facility] Comment on above: Performed By: #### T SH3, BMP, AMM, HEPATIC, MG, CBC ####[place] [address] [place] [id number] [facility] Nitrite Test strip Ql (U)Ord ered By: Ralf White on 01-10-2024 Nitrite Ql (U) Negative Negative [facility] No Panel InformationOrdered By: Ralf White on 01-10-2024 Blood Gas Critical Value See comment [facility] Comment on above: Critical Value almendarez d on: 01/10/2024 at 23:40 Blood Gas Sample Site Venous Fir [facility] FiO2 21 % [facility] Venous Blood Base Excess 1.1 mmol/L -3.0-3.0 [facility] Venous Blood Oxygen Content 4.9 mmol/L Low 6.6-9.7 [facility] Venous Blood Oxygen Saturation 58.1 % Low 73.0-76.0 [facility] Venous Blood Partial Pressure CO2 44.2 mm[Hg] 38.0-50.0 [facility] Venous Blood Partial Pressure O2 29.9 mm[Hg] Low 35.0-45.0 [facility] Venous Blood pH 7.39 7.32-7.43 [facility] Estimated GFR (CKD-EPI) > 60.0 mL/Min [facility] Creatinine Clearance (Chem N/A [facility] Nucleated erythrocytes [Pres ence] in Blood by Automated countOrdered By: Ralf White on 01-10-2024 Nucleated RBC Auto Ql (Bld) 0.1 /100{WBC} 0-0.5 [facility] Platelet mean volume [Entiti c volume] in Blood by Automated countOrdered By: Ralf White on 01-10-2024 Platelet mean volume (Bld) [Entitic vol] 7.5 fL Normal 6.6-10.1 [facility] Comment on above: Performed By: #### T SH3, BMP, AMM, HEPATIC, MG, CBC ####[place] [address] Platelets [#/volume] in Bloo d by Automated countOrdered By: Ralf White on 01-10-2024 Platelets (Bld) [#/Vol] 234 10*3/uL Normal 150-450 [facility] Comment on above: Performed By: #### T SH3, BMP, AMM, HEPATIC, MG, CBC ####[facility] [address] [place] [address] [facility] Potassium [Moles/volume] in Serum or PlasmaOrdered By: Rafl White on 01-10-2024 Potassium [Moles/Vol] 4.3 mmol/L Normal 3.5-5.1 [facility] Comment on above: Performed By: #### T SH3, BMP, AMM, HEPATIC, MG, CBC ####[place] [address] [place] [id number] [facility] Protein Test strip (U) [Mass /Vol]Ordered By: Ralf White on 01-10-2024 Protein (U) [Mass/Vol] Negative Negative [facility] Protein [Mass/volume] in Ser um or PlasmaOrdered By: Ralf White on 01-10-2024 Protein [Mass/Vol] 6.4 g/dL Normal 6.4-8.9 [facility] Comment on above: Performed By: #### T SH3, BMP, AMM, HEPATIC, MG, CBC ####[place] [address] Serum globulin measurement b y calculation (mass/volume)Ordered By: Ralf White on 01-10-2024 Globulin (S) [Mass/Vol] 2.9 g/dL Normal F [facility] Comment on above: Performed By: #### T SH3, BMP, AMM, HEPATIC, MG, CBC ####[place] [address] Serum or plasma albumin/glob ulin mass ratioOrdered By: Ralf White on 01-10-2024 Albumin/Globulin [Mass ratio] 1.2 {ratio} Normal [facility] Comment on above: Performed By: #### T SH3, BMP, AMM, HEPATIC, MG, CBC ####[address] Serum or plasma anion gap de terminationOrdered By: Ralf White on 01-10-2024 Anion gap [Moles/Vol] 10.0 mmol/L Normal 6.0-15.0 [facility] Comment on above: Performed By: #### T SH3, BMP, AMM, HEPATIC, MG, CBC ####[address] Serum or plasma non-glucuron idated bilirubin measurement (mass/volume)Ordered By: Ralf White on 01-10-2024 Bilirubin.indirect [Mass/Vol] 0.6 mg/dL [facility] Sodium [Moles/volume] in Ser um or PlasmaOrdered By: Ralf White on 01-10-2024 Sodium [Moles/Vol] 136 mmol/L Normal 136-145 [facility] Comment on above: Performed By: #### T SH3, BMP, AMM, HEPATIC, MG, CBC ####[address] Specific gravity Test strip (U) [Rel density]Ordered By: Ralf Cindy on 01-10-2024 Specific gravity (U) [Rel density] 1.006 1.001-1.[address] [facility] Thyrotropin [Units/volume] i n Serum or PlasmaOrdered By: Ralf White on 01-10-2024 TSH Qn 4.31 m[IU]/L Normal 0.45-5.33 [facility] Comment on above: Result Comment: PERF ORMED BY:[address] [place], [place] [phone] MEDICAL DIRECTORZEFERINO ZIMMER M.D. Performed By: #### T SH3, BMP, AMM, HEPATIC, MG, CBC ####[place] [address] [place] [address] [facility] Urea nitrogen [Mass/volume] in Serum or PlasmaOrdered By: Ralf White on 01-10-2024 Urea nitrogen [Mass/Vol] 11 mg/dL Normal 7-25 [facility] Comment on above: Performed By: #### T SH3, BMP, AMM, HEPATIC, MG, CBC ####[address] [address] [facility] Urinalysison 01-10-2024 Bilirubin,Urine Negative Normal Negative [facility] Comment on above: Order Comment: Name Collection Type:: Clean-Voided Midstream Performed By: #### U A ####[address] [address] [facility] Glucose Ql (U) Normal Normal Normal [facility] Comment on above: Order Comment: Name Collection Type:: Clean-Voided Midstream Performed By: #### U A ####[address] [address] [facility] Nitrite,Urine Negative Normal Negative [facility] Comment on above: Order Comment: Name Collection Type:: Clean-Voided Midstream Performed By: #### U A ####[address] [address] [facility] Occult Blood,Urine Negative Normal Negative [facility] Comment on above: Order Comment: Name Collection Type:: Clean-Voided Midstream Result Comment: PERF ORMED BY:[address] [place], [place] [phone] MEDICAL DIRECTORZEFERINO ZIMMER M.D. Performed By: #### U A ####[address] [address] [facility] Protein,Urine Negative Normal Negative [facility] Comment on above: Order Comment: Name Collection Type:: Clean-Voided Midstream Performed By: #### U A ####[address] [address] [facility] Specificy [place],Urine 1.006 Normal 1.00 1-1.03 0 [facility] Comment on above: Order Comment: Name Collection Type:: Clean-Voided Midstream Performed By: #### U A ####[address] [address] [facility] Urobilinogen,Urine Normal Normal Normal [facility] Comment on above: Order Comment: Name Collection Type:: Clean-Voided Midstream Performed By: #### U A ####[address] [address] [facility] Urine appearanceOrdered By: Ralf White on 01-10-2024 Appearance (U) Clear Normal Clear [facility] Comment on above: Order Comment: Name Collection Type:: Clean-Voided Midstream Performed By: #### U A ####[address] [address] [facility] Urobilinogen Test strip (U) [Mass/Vol]Ordered By: Ralf White on 01-10-2024 Urobilinogen (U) [Mass/Vol] Normal mg/dL Normal [facility] Venous Blood GasOrdered By: Ralf White on 01-10-2024 CO2 [Moles/Vol] 27.7 mmol/L Normal 24.0-29.0 [facility] Comment on above: Performed By: #### V BG ####Point of Care testing, HCO3 (Bld) [Moles/Vol] 26.3 mmol/L Normal 23.0-29.0 [facility] Comment on above: Performed By: #### V BG ####Point of Care testing, Venous Blood Gason Respiratory Critical Normal [facility] Comment on above: Result Comment: Crit ical Value called on: 01/10/2024 at 23:40PERFORMED BY:[facility] [place], [place] [phone] MEDICAL DIRECTORZEFERINO ZIMMER M.D. Performed By: #### V BG ####Point of Care testing, VBG Base Excess 1.1 mmol/L Normal -3.0-3.0 [facility] Comment on above: Performed By: #### V BG ####Point of Care testing, VBG Draw Site Venous Normal [facility] Comment on above: Performed By: #### V BG ####Point of Care testing, VBG Frac Inspired O2 21 % Normal [facility] Comment on above: Performed By: #### V BG ####Point of Care testing, VBG O2 Content 4.9 mmol/L Low 6.6-9.7 [facility] Comment on above: Performed By: #### V BG ####Point of Care testing, VBG Oxygen Saturation 58.1 % Off scale low 73.0-76.0 [facility] Comment on above: Performed By: #### V BG ####Point of Care testing, VBG PCO2 44.2 mm[Hg] Normal 38.0-50.0 [facility] Comment on above: Performed By: #### V BG ####Point of Care testing, VBG PH Venous PH 7.39 Normal 7.32-7.43 [facility] Comment on above: Performed By: #### V BG ####Point of Care testing, VBG PO2 29.9 mm[Hg] Low 35.0-45.0 [facility] Comment on above: Performed By: #### V BG ####Point of Care testing, pH of Urine by Test stripOrd ered By: Ralf White on 01-10-2024 pH (U) 7.0 [pH] Normal 5.0-9.0 [facility] Comment on above: Order Comment: Name Collection Type:: Clean-Voided Midstream Performed By: #### U A ####[place] [address] [place] [id number] [facility] XR CHEST 2 VIEWSon XR CHEST 2 VIEWS Exam: XR - CHEST 2 V IEWS Reason for study: Follow up COVID and pneumonia Comparison: Chest x-ray December 27, 2023 FINDINGS: The heart size is normal. No infiltrates or effusions. Calcified granuloma in the right upper lobe is seen. There is improved aeration in the left lung base compared to the prior exam. A spinal stimulator device is seen in the thoracic spinal canal. IMPRESSION: No acute cardiopulmonary process. Resolution of previously seen lung opacities. Dictated on: 01/04/2024 3:27 PM This report has been electronically signed and approved by the interpreting Radiologist. Electronically Signed Conor Lopez D.O. 2024-01-04 15:27:55 Normal Not Available Alanine aminotransferase [En zymatic activity/volume] in Serum or PlasmaOrdered By: Conor John on 12-29-2023 ALT [Catalytic activity/Vol] 17 U/L Normal 7-52 [facility] Comment on above: Performed By: #### C TERRELL, CMP ####[place] [id number] [place] [id number] [facility] Albumin [Mass/volume] in Ser um or Plasma by Bromocresol green (BCG) dye binding methoOrdered By: Conor John on 12-29-2023 Albumin BCG dye [Mass/Vol] 3.1 g/dL Low 3.5-5.7 [facility] Alkaline phosphatase [Enzyma tic activity/volume] in Serum or PlasmaOrdered By: Conor John on 12-29-2023 ALP [Catalytic activity/Vol] 87 U/L Normal 34-104 [facility] Comment on above: Performed By: #### C BC, CMP ####[facility] [place] [id number] [facility] Aspartate aminotransferase [ Enzymatic activity/volume] in Serum or PlasmaOrdered By: Conor John on 12-29-2023 AST [Catalytic activity/Vol] 14 U/L Normal 13-39 [facility] Comment on above: Performed By: #### C BC, CMP ####[address] Automated basophil %Ordered By: Conor John on 12-29-2023 Basophils/100 WBC (Bld) 0.1 % Normal . F [facility] Comment on above: Performed By: #### C BC, CMP ####[address] Automated basophil countOrde red By: Conor John on 12-29-2023 Basophils (Bld) [#/Vol] 0.0 10*3/uL Normal 0.0-0.2 [facility] Comment on above: Result Comment: PERF ORMED BY:[address] [place], [place] [phone] MEDICAL DIRECTORZEFERINO ZIMMER M.D. Performed By: #### C TERRELL, CMP ####[address] Automated blood monocyte cou ntOrdered By: Conor John on 12-29-2023 Monocytes (Bld) [#/Vol] 0.7 10*3/uL Normal 0.0-0.8 [facility] Comment on above: Performed By: #### C BC, CMP ####[address] Automated eosinophil %Ordere d By: Conor John on 12-29-2023 Eosinophils/100 WBC (Bld) 0.0 % Normal . [facility] Comment on above: Performed By: #### C BC, CMP ####[address] Automated eosinophil countOr dered By: Conor John on 12-29-2023 Eosinophils (Bld) [#/Vol] 0.0 10*3/uL Normal 0.0-0.45 [facility] Comment on above: Performed By: #### C BC, CMP ####[address] Automated monocyte %Ordered By: Conor John on 12-29-2023 Monocytes/100 WBC (Bld) 3.6 % Normal . [facility] Comment on above: Performed By: #### C BC, CMP ####[place] [id number] [facility] Automated neutrophil %Ordere d By: Conor John on 12-29-2023 Neutrophils/100 WBC (Bld) 86.0 % Normal . [facility] Comment on above: Performed By: #### C BC, CMP ####[place] [id number] [facility] Bilirubin.total [Mass/volume ] in Serum or PlasmaOrdered By: Conor John on 12-29-2023 Bilirubin [Mass/Vol] 0.4 mg/dL Normal 0.3-1.0 [facility] Comment on above: Performed By: #### C BC, CMP ####[place] [id number] [facility] Calcium [Mass/volume] in Ser um or PlasmaOrdered By: Conor John on 12-29-2023 Calcium [Mass/Vol] 7.9 mg/dL Low 8.6-10.3 [facility] Comment on above: Performed By: #### C BC, CMP ####[place] [id number] [facility] Carbon dioxide, total [Moles /volume] in Serum or PlasmaOrdered By: Conor John on 12-29-2023 CO2 [Moles/Vol] 29.1 mmol/L Normal 21.0-31.0 [facility] Comment on above: Performed By: #### C BC, CMP ####[place] [id number] [facility] Chloride [Moles/volume] in S kay or PlasmaOrdered By: Conor John on 12-29-2023 Chloride [Moles/Vol] 102 mmol/L Normal 98-107 [facility] Comment on above: Performed By: #### C BC, CMP ####[place] [id number] [facility] Complete Blood Count Auto Di ffon 12-29-2023 Mean Corpuscular HGB Conc 33.6 g/dL Normal 32.5-35.6 [facility] Comment on above: Performed By: #### C BC, CMP ####[place] [id number] [facility] NRBC% 0.1 /100{WBC} Normal 0-0.5 [facility] Comment on above: Performed By: #### C BC, CMP ####[place] [id number] [facility] Comprehensive Metabolic Pane raudel 12-29-2023 Albumin [Mass/Vol] 3.1 g/dL Low 3.5-5.7 [facility] Comment on above: Performed By: #### C BC, CMP ####[address] Creatinine Clr Calc Pharmacy 90.15 Normal [facility] Comment on above: Result Comment: PERF ORMED BY:[address], [place] [phone] MEDICAL KELLY ZIMMER M.D. Performed By: #### C TERRELL, CMP ####[place] [id number] [facility] GFR/1.73 sq M.predicted MDRD (S/P/Bld) [Vol rate/Area] mL/min/{1.73_m2} Normal [facility] Comment on above: Performed By: #### C BC, CMP ####[place] [id number] [facility] Creatinine [Mass/volume] in Serum or PlasmaOrdered By: Conor John on 12-29-2023 Creatinine [Mass/Vol] 0.85 mg/dL Normal 0.70-1.30 [facility] Comment on above: Performed By: #### C BC, CMP ####[place] [id number] [facility] Erythrocyte distribution wid th [Ratio] by Automated countOrdered By: Conor John on 12-29-2023 Erythrocyte distribution width (RBC) [Ratio] 13.1 % Normal 12.0-14.8 [facility] Comment on above: Performed By: #### C TERRELL, CMP ####[address] Erythrocytes [#/volume] in B lood by Automated countOrdered By: Conor John on 12-29-2023 RBC (Bld) [#/Vol] 3.81 10*6/uL Low 3.90-5.[address] [facility] Comment on above: Performed By: #### C BC, CMP ####[place] [id number] [facility] Glucose [Mass/volume] in Ser um or PlasmaOrdered By: Conor John on 12-29-2023 Glucose [Mass/Vol] 112 mg/dL High 70-100 [facility] Comment on above: ADA recommended refe rence rangeRandom Glucose Reference Range is dependent on time and content of last meal. Glucose of more than 200 mg/dL in a nonstressed, ambulatory subject supports the diagnosis of Diabetes Mellitus. Result Comment: [place] om Glucose Reference Range is dependent on time and content of last meal. Glucose of more than 200 mg/dL in a nonstressed, ambulatory subject supports the diagnosis of Diabetes Mellitus. ADA recommended reference range Performed By: #### C BC, CMP ####[place] [id number] [facility] Hematocrit [Volume Fraction] of Blood by Automated countOrdered By: Conor John on 12-29-2023 Hematocrit (Bld) [Volume fraction] 37.5 % Low 38.8-50.0 [facility] Comment on above: Performed By: #### C BC, CMP ####[place] [id number] [facility] Hemoglobin [Mass/volume] in BloodOrdered By: Conor John on 12-29-2023 Hemoglobin (Bld) [Mass/Vol] 12.6 g/dL Low 13.0-17.0 [facility] Comment on above: Performed By: #### C BC, CMP ####[place] [id number] [facility] Leukocytes [#/volume] correc suri for nucleated erythrocytes in Blood by Automated counOrdered By: Conor John on 12-29-2023 WBC corrected for nucl RBC Auto (Bld) [#/Vol] 20.2 10*3/uL High 4.1-10.5 [facility] Leukocytes [#/volume] in Blo od by Automated countOrdered By: Conor John on 12-29-2023 WBC (Bld) [#/Vol] 20.2 10*3/uL High 4.1-10.[address] [facility] Comment on above: Performed By: #### C TERRELL, CMP ####[address] Lymphocytes [#/volume] in Bl ood by Automated countOrdered By: Conor John on 12-29-2023 Lymphocytes (Bld) [#/Vol] 2.1 10*3/uL Normal 1.00-4.8 [facility] Comment on above: Performed By: #### C TERRELL, CMP ####[address] Lymphocytes/100 leukocytes i n Blood by Automated countOrdered By: Conor John on 12-29-2023 Lymphocytes/100 WBC (Bld) 10.3 % Normal . [facility] Comment on above: Performed By: #### C TERRELL, CMP ####[address] MCH [Entitic mass] by Automa suri countOrdered By: Conor John on 12-29-2023 MCH (RBC) [Entitic mass] 33.1 pg Normal 27.5-35.2 [facility] Comment on above: Performed By: #### C BC, CMP ####[address] MCHC Auto (RBC) [Mass/Vol]Or dered By: Conor John on 12-29-2023 MCHC (RBC) [Mass/Vol] 33.6 g/dL 32.5-35.6 [facility] MCV [Entitic volume] by Auto mated countOrdered By: Conor John on 12-29-2023 MCV (RBC) [Entitic vol] 98.4 fL Normal 83.5-101 [facility] Comment on above: Performed By: #### C BC, CMP ####[address] Neutrophils [#/volume] in Bl ood by Automated countOrdered By: Conor John on 12-29-2023 Neutrophils (Bld) [#/Vol] 17.4 10*3/uL High 1.8-7.7 [facility] Comment on above: Performed By: #### C TERRELL, CMP ####[address] No Panel InformationOrdered By: Conor John on 12-29-2023 Estimated GFR (CKD-EPI) > 60.0 mL/Min [facility] Creatinine Clearance (Chem 90.15 [facility] Nucleated erythrocytes [Pres ence] in Blood by Automated countOrdered By: Conor John on 12-29-2023 Nucleated RBC Auto Ql (Bld) 0.1 /100{WBC} 0-0.5 [facility] Platelet mean volume [Entiti c volume] in Blood by Automated countOrdered By: Conor John on 12-29-2023 Platelet mean volume (Bld) [Entitic vol] 7.2 fL Normal 6.6-10.1 [facility] Comment on above: Performed By: #### C BC, CMP ####[place] [id number] [facility] Platelets [#/volume] in Bloo d by Automated countOrdered By: Conor John on 12-29-2023 Platelets (Bld) [#/Vol] 265 10*3/uL Normal 150-450 [facility] Comment on above: Performed By: #### C BC, CMP ####[place] [id number] [facility] Potassium [Moles/volume] in Serum or PlasmaOrdered By: Conor John on 12-29-2023 Potassium [Moles/Vol] 3.9 mmol/L Normal 3.5-5.1 [facility] Comment on above: Performed By: #### C BC, CMP ####[address] Protein [Mass/volume] in Ser um or PlasmaOrdered By: Conor John on 12-29-2023 Protein [Mass/Vol] 5.1 g/dL Low 6.4-8.9 [facility] Comment on above: Performed By: #### C BC, CMP ####[place] [id number] [facility] Serum globulin measurement b y calculation (mass/volume)Ordered By: Conor John on 12-29-2023 Globulin (S) [Mass/Vol] 2.0 g/dL Normal [facility] Comment on above: Performed By: #### C BC, CMP ####[address] Serum or plasma albumin/glob ulin mass ratioOrdered By: Conor John on 12-29-2023 Albumin/Globulin [Mass ratio] 1.6 {ratio} Normal [facility] Comment on above: Performed By: #### C BC, CMP ####[place] [id number] [facility] Serum or plasma anion gap de terminationOrdered By: Conor John on 12-29-2023 Anion gap [Moles/Vol] 11.8 mmol/L Normal 6.0-15.0 [facility] Comment on above: Performed By: #### C BC, CMP ####[place] [id number] [facility] Sodium [Moles/volume] in Ser um or PlasmaOrdered By: Conor John on 12-29-2023 Sodium [Moles/Vol] 139 mmol/L Normal 136-145 [facility] Comment on above: Performed By: #### C BC, CMP ####[place] [id number] [facility] US venous duplex LE BIon US venous duplex LE BI Normal [facility] Urea nitrogen [Mass/volume] in Serum or PlasmaOrdered By: Conor John on 12-29-2023 Urea nitrogen [Mass/Vol] 22 mg/dL Normal 7-25 [facility] Comment on above: Performed By: #### C BC, CMP ####[address] BNP ser/plasOrdered By: Nikolai John on 12-28-2023 Natriuretic peptide B (Bld) [Mass/Vol] 288.0 pg/mL High 5-100 [facility] Comment on above: Result Comment: PERF ORMED BY:[address] [place], [place] [phone] MEDICAL DIRECTORZEFERINO ZIMMER M.D. Performed By: #### M G, CBC, BNP, CMP ####[address] Complete Blood Count Auto Di ffon 12-28-2023 Basophils (Bld) [#/Vol] 0.0 10*3/uL Normal 0.0-0.2 [facility] Comment on above: Result Comment: PERF ORMED BY:[place] [address] [place], [place] [phone] MEDICAL DIRECTORZEFERINO ZIMMER M.D. Performed By: #### M G, CBC, BNP, CMP ####[address] Basophils/100 WBC (Bld) 0.2 % Normal . [facility] Comment on above: Performed By: #### M G, CBC, BNP, CMP ####[address] Eosinophils (Bld) [#/Vol] 0.0 10*3/uL Normal 0.0-0.45 [facility] Comment on above: Performed By: #### M G, CBC, BNP, CMP ####[address] Eosinophils/100 WBC (Bld) 0.0 % Normal . [facility] Comment on above: Performed By: #### M G, CBC, BNP, CMP ####[address] Erythrocyte distribution width (RBC) [Ratio] 13.4 % Normal 12.0-14.8 [facility] Comment on above: Performed By: #### M G, CBC, BNP, CMP ####[address] Hematocrit (Bld) [Volume fraction] 37.1 % Low 38.8-50.0 [facility] Comment on above: Performed By: #### M G, CBC, BNP, CMP ####[address] Hemoglobin (Bld) [Mass/Vol] 12.5 g/dL Low 13.0-17.0 [facility] Comment on above: Performed By: #### M G, CBC, BNP, CMP ####[address] Lymphocytes (Bld) [#/Vol] 1.6 10*3/uL Normal 1.00-4.8 [facility] Comment on above: Performed By: #### M G, CBC, BNP, CMP ####[address] Lymphocytes/100 WBC (Bld) 6.3 % Normal . [facility] Comment on above: Performed By: #### M G, CBC, BNP, CMP ####[address] MCH (RBC) [Entitic mass] 33.0 pg Normal 27.5-35.2 [facility] Comment on above: Performed By: #### M G, CBC, BNP, CMP ####[address] MCV (RBC) [Entitic vol] 98.4 fL Normal 83.5-101 [facility] Comment on above: Performed By: #### M G, CBC, BNP, CMP ####[address] Mean Corpuscular HGB Conc 33.6 g/dL Normal 32.5-35.6 [facility] Comment on above: Performed By: #### M G, CBC, BNP, CMP ####[address] Monocytes (Bld) [#/Vol] 0.8 10*3/uL Normal 0.0-0.8 [facility] Comment on above: Performed By: #### M G, CBC, BNP, CMP ####[address] Monocytes/100 WBC (Bld) 3.1 % Normal . T jen[facility] Comment on above: Performed By: #### M G, CBC, BNP, CMP ####[address] Neutrophils (Bld) [#/Vol] 22.6 10*3/uL High 1.8-7.7 [facility] Comment on above: Performed By: #### M G, CBC, BNP, CMP ####[address] Neutrophils/100 WBC (Bld) 90.4 % Normal . [facility] Comment on above: Performed By: #### M G, CBC, BNP, CMP ####[address] NRBC% 0.0 /100{WBC} Normal 0-0.5 [facility] Comment on above: Performed By: #### M G, CBC, BNP, CMP ####[address] Platelet mean volume (Bld) [Entitic vol] 7.0 fL Normal 6.6-10.1 [facility] Comment on above: Performed By: #### M G, CBC, BNP, CMP ####[address] Platelets (Bld) [#/Vol] 254 10*3/uL Normal 150-450 [facility] Comment on above: Performed By: #### M G, CBC, BNP, CMP ####[address] RBC (Bld) [#/Vol] 3.77 10*6/uL Low 3.90-5.60 [facility] Comment on above: Performed By: #### M G, CBC, BNP, CMP ####[address] WBC (Bld) [#/Vol] 25.0 10*3/uL High 4.1-10.5 [facility] Comment on above: Performed By: #### M G, CBC, BNP, CMP ####[address] Comprehensive Metabolic Pane raudel 12-28-2023 Albumin [Mass/Vol] 3.2 g/dL Low 3.5-5.7 [facility] Comment on above: Performed By: #### M G, CBC, BNP, CMP ####[address] Albumin/Globulin [Mass ratio] 1.3 {ratio} Normal [facility] Comment on above: Performed By: #### M G, CBC, BNP, CMP ####[address] ALP [Catalytic activity/Vol] 104 U/L Normal 34-104 [facility] Comment on above: Performed By: #### M G, CBC, BNP, CMP ####[address] ALT [Catalytic activity/Vol] 15 U/L Normal 7-52 [facility] Comment on above: Performed By: #### M G, CBC, BNP, CMP ####[address] Anion gap [Moles/Vol] 11.2 mmol/L Normal 6.0-15.0 [facility] Comment on above: Performed By: #### M G, CBC, BNP, CMP ####[address] AST [Catalytic activity/Vol] 16 U/L Normal 13-39 [facility] Comment on above: Performed By: #### M G, CBC, BNP, CMP ####[place] [id number] [facility] Bilirubin [Mass/Vol] 0.4 mg/dL Normal 0.3-1.0 [facility] Comment on above: Performed By: #### M G, CBC, BNP, CMP ####[address] Calcium [Mass/Vol] 7.8 mg/dL Low 8.6-10.3 [facility] Comment on above: Performed By: #### M G, CBC, BNP, CMP ####[address] Chloride [Moles/Vol] 103 mmol/L Normal 98-107 [facility] Comment on above: Performed By: #### M G, CBC, BNP, CMP ####[address] CO2 [Moles/Vol] 25.9 mmol/L Normal 21.0-31.0 [facility] Comment on above: Performed By: #### M G, CBC, BNP, CMP ####[address] Creatinine [Mass/Vol] 0.84 mg/dL Normal 0.70-1.30 [facility] Comment on above: Performed By: #### M G, CBC, BNP, CMP ####[place] [id number] [facility] Creatinine Clr Calc Pharmacy 91.71 Normal [facility] Comment on above: Performed By: #### M G, CBC, BNP, CMP ####[address] GFR/1.73 sq M.predicted MDRD (S/P/Bld) [Vol rate/Area] mL/min/{1.73_m2} Normal [facility] Comment on above: Performed By: #### M G, CBC, BNP, CMP ####[place] [id number] [place] [id number] [facility] Globulin (S) [Mass/Vol] 2.5 g/dL Normal [facility] Comment on above: Performed By: #### M G, CBC, BNP, CMP ####[place] [id number] [facility] Glucose [Mass/Vol] 112 mg/dL High 70-100 [facility] Comment on above: Result Comment: [facility] Glucose Reference Range is dependent on time and content of last meal. Glucose of more than 200 mg/dL in a nonstressed, ambulatory subject supports the diagnosis of Diabetes Mellitus. ADA recommended reference range Performed By: #### M G, CBC, BNP, CMP ####[place] [id number] [facility] Potassium [Moles/Vol] 4.1 mmol/L Normal 3.5-5.1 [facility] Comment on above: Performed By: #### M G, CBC, BNP, CMP ####[place] [id number] [facility] Protein [Mass/Vol] 5.7 g/dL Low 6.4-8.9 [facility] Comment on above: Performed By: #### M G, CBC, BNP, CMP ####[place] [id number] [facility] Sodium [Moles/Vol] 136 mmol/L Normal 136-145 [facility] Comment on above: Performed By: #### M G, CBC, BNP, CMP ####[place] [id number] [facility] Urea nitrogen [Mass/Vol] 20 mg/dL Normal 7-25 [facility] Comment on above: Performed By: #### M G, CBC, BNP, CMP ####[place] [id number] [facility] Magnesium [Mass/volume] in S kay or PlasmaOrdered By: Conor John on 12-28-2023 Magnesium [Mass/Vol] 1.8 mg/dL Low 1.9-2.7 [facility] Comment on above: Result Comment: PERF ORMED BY:[place] [address] [place], [place] [phone] MEDICAL DIRECTORZEFERINO ZIMMER M.D. Performed By: #### M G, CBC, BNP, CMP ####[address] [address] [facility] Activated partial thrombopla stin time (aPTT) in platelet poor plasma by coagulation aOrdered By: Soto Simmons on 12-27-2023 aPTT Coag (PPP) [Time] 28.0 s 25.1-36.5 [facility] Comment on above: A hematocrit value g reater than 55% may lead to inaccurate results in coagulation testing. Patients having hematocrit values >55% require a special collection tube for coagulation studies. Please contact the laboratory at [phone] for redraw instructions. Aerobic Cultureon 12-27-2023 Aerobic Culture Normal [facility] Comment on above: Performed By: #### A ERC ####[place] [id number] [facility] Automated basophil %Ordered By: Soto Simmons on 12-27-2023 Basophils/100 WBC (Bld) 0.4 % Normal . [facility] Comment on above: Performed By: #### C K, PT, HS TROP, PTT, LACTIC, CBC, CUBLD, BMP, BNP ####[place] [id number] [facility] Automated basophil countOrde red By: Soto Simmons on 12-27-2023 Basophils (Bld) [#/Vol] 0.1 10*3/uL Normal 0.0-0.2 [facility] Comment on above: Result Comment: PERF ORMED BY:[address] [place], [place] [phone] MEDICAL DIRECTORZEFERINO ZIMMER M.D. Performed By: #### C K, PT, HS TROP, PTT, LACTIC, CBC, CUBLD, BMP, BNP ####[address] Automated blood monocyte cou ntOrdered By: Soto Troy on 12-27-2023 Monocytes (Bld) [#/Vol] 0.3 10*3/uL Normal 0.0-0.8 [facility] Comment on above: Performed By: #### C K, PT, HS TROP, PTT, LACTIC, CBC, CUBLD, BMP, BNP ####[address] Automated eosinophil %Ordere d By: Soto Troy on 12-27-2023 Eosinophils/100 WBC (Bld) 0.6 % Normal . [facility] Comment on above: Performed By: #### C K, PT, HS TROP, PTT, LACTIC, CBC, CUBLD, BMP, BNP ####[address] Automated eosinophil countOr dered By: Sotodesiree Simmons on 12-27-2023 Eosinophils (Bld) [#/Vol] 0.1 10*3/uL Normal 0.0-0.45 [facility] Comment on above: Performed By: #### C K, PT, HS TROP, PTT, LACTIC, CBC, CUBLD, BMP, BNP ####[address] Automated monocyte %Ordered By: Soto Simmons on 12-27-2023 Monocytes/100 WBC (Bld) 2.1 % Normal . [facility] Comment on above: Performed By: #### C K, PT, HS TROP, PTT, LACTIC, CBC, CUBLD, BMP, BNP ####[address] Automated neutrophil %Ordere d By: Sotodesiree Simmons on 12-27-2023 Neutrophils/100 WBC (Bld) 89.0 % Normal . [facility] Comment on above: Performed By: #### C K, PT, HS TROP, PTT, LACTIC, CBC, CUBLD, BMP, BNP ####[address] [place] [address] [facility] BNP ser/plasOrdered By: Maddie Simmons on 12-27-2023 Natriuretic peptide B (Bld) [Mass/Vol] 54.0 pg/mL Normal 5-100 [facility] Comment on above: Result Comment: PERF ORMED BY:[address] [place], [place] [phone] MEDICAL DIRECTORZEFERINO ZIMMER M.D. Performed By: #### C K, PT, HS TROP, PTT, LACTIC, CBC, CUBLD, BMP, BNP ####[place] [address] [place] [address] [facility] Bacteria [Presence] in Urine by AutomatedOrdered By: Soto Simmons on 12-27-2023 Bacteria Auto Ql (U) 2+ [HPF] High None Seen [facility] Bacteria identification by s terile body fluid cultureOrdered By: Dc De La Rosa on 12-27-2023 Bacteria identified Sterile body fluid culture Nom (Unsp spec) Not indicated. . [facility] Bacteria identification dete ction in isolate by cultureOrdered By: Dc De La Rosa on 12-27-2023 Bacteria Identification Cx Ql (Isol) Not indicated. . [facility] Bacterial blood cultureOrder ed By: Soto Simmons on 12-27-2023 Bacteria identified Cx Nom (Bld) NO GROWTH [address] [facility] Bacteria identified Cx Nom (Bld) NO GROWTH [address] [facility] Basic Metabolic Panelon 12-09 Creatinine Clr Calc Pharmacy 72.85 Normal [facility] Comment on above: Result Comment: PERF ORMED BY:[address] [place], [place] [phone] MEDICAL DIRECTORZEFERINO ZIMMER M.D. Performed By: #### C K, PT, HS TROP, PTT, LACTIC, CBC, CUBLD, BMP, BNP ####[place] [address] [place] [address] [facility] GFR/1.73 sq M.predicted MDRD (S/P/Bld) [Vol rate/Area] mL/min/{1.73_m2} Normal [facility] Comment on above: Performed By: #### C K, PT, HS TROP, PTT, LACTIC, CBC, CUBLD, BMP, BNP ####[place] [id number] [facility] Bilirubin Test strip Ql (U)O rdered By: Soto Simmons on 12-27-2023 Bilirubin Ql (U) Negative Negative [facility] Blood Cultureon 12-27-2023 Bacteria identified Cx Nom (Bld) NO GROWTH 5 DAYS PERFORMED BY: [place] [id number] PATHOLOGIST DAIR[employer] POWDER MIXER OPERATOR ZEFERINO ZIMMER M.D. Normal [facility] Comment on above: Performed By: #### C K, PT, HS TROP, PTT, LACTIC, CBC, CUBLD, BMP, BNP ####[place] [id number] [facility] Bacteria identified Cx Nom (Bld) NO GROWTH 5 DAYS PERFORMED BY: [place] [id number] PATHOLOGIST DAIRY POWDER MIXER OPERATOR ZEFERINO ZIMMER M.D. Normal [facility] Comment on above: Performed By: #### C K, PT, HS TROP, PTT, LACTIC, CBC, CUBLD, BMP, BNP ####[place] [id number] [facility] C reactive protein [Mass/vol ume] in Serum or PlasmaOrdered By: Conor John on 12-27-2023 CRP [Mass/Vol] 22.2 mg/dL High 0.0-0.5 [facility] C-Reactive Proteinon 024 C-Reactive Protein 22.2 mg/dL High 0.0-0.5 [facility] Comment on above: Result Comment: PERF ORMED BY:[address] [place], [place] [phone] MEDICAL DIRECTORZEFERINO ZIMMER M.D. Performed By: #### C RP ####[place] [id number] [facility] COVID CepheidOrdered By: Vianey Simmons on 12-27-2023 SARS-CoV-2 (COVID-19) Ab IA Ql Positive Abnormal Negative [facility] Comment on above: This is a duplicate Cepheid Xpert Xpress CoV-2/Flu/RSV Plus RNA by RT-PCR result to be used for statistical tracking purpose only. SARS-CoV-2 (COVID-19) RNA MARGARET+probe Ql (Unsp spec) Normal [facility] Comment on above: Performed By: #### C OVID19 FLU RSV, CEPHEID POS ####[place] [address] [place] [address] [facility] head/brain wo conon 12-26 CT head/brain wo con Normal [facility] Calcium [Mass/volume] in Ser um or PlasmaOrdered By: Soto Adamsaníbal on 12-27-2023 Calcium [Mass/Vol] 8.6 mg/dL Normal 8.6-10.3 [facility] Comment on above: Performed By: #### C K, PT, HS TROP, PTT, LACTIC, CBC, CUBLD, BMP, BNP ####[place] [id number] [facility] Carbon dioxide, total [Moles /volume] in Serum or PlasmaOrdered By: Soto Adamsaníbal on 12-27-2023 CO2 [Moles/Vol] 26.4 mmol/L Normal 21.0-31.0 [facility] Comment on above: Performed By: #### C K, PT, HS TROP, PTT, LACTIC, CBC, CUBLD, BMP, BNP ####[place] [id number] [facility] Cepheid COVID PCR Positiveon 12-27-2023 SARS-CoV-2 (COVID-19) RNA MARGARET+probe Ql (Unsp spec) Positive Critically abnormal Negative [facility] Comment on above: Result Comment: This is a duplicate Cepheid Xpert Xpress CoV-2/Flu/RSV Plus RNA by RT-PCR result to be used for statistical tracking purpose only.PERFORMED BY:[address] [place], [place] [phone] MEDICAL DIRECTORZEFERINO ZIMMER M.D. Performed By: #### C OVID19 FLU RSV, CEPHEID POS ####[address] Chloride [Moles/volume] in S kay or PlasmaOrdered By: Soto Simmons on 12-27-2023 Chloride [Moles/Vol] 99 mmol/L Normal 98-107 [facility] Comment on above: Performed By: #### C K, PT, HS TROP, PTT, LACTIC, CBC, CUBLD, BMP, BNP ####[address] Color of Urine by AutoOrdere d By: Soto Simmons on 12-27-2023 Color (U) Yellow Normal Yellow [facility] Comment on above: Order Comment: Name Collection Type:: Clean-Voided Midstream Performed By: #### A DDONUAPLUS, CUU ####[address] Complete Blood Count Auto Di ffon 12-27-2023 Mean Corpuscular HGB Conc 33.6 g/dL Normal 32.5-35.6 [facility] Comment on above: Performed By: #### C K, PT, HS TROP, PTT, LACTIC, CBC, CUBLD, BMP, BNP ####[address] Monocytes/100 WBC (Bld) 24.97 % High 0.00-20.00 [facility] Comment on above: Result Comment: For adults in ED, MDW > 20.0 may be associated with a higher risk of sepsis during the first 12 hrs of hospital admission Performed By: #### C K, PT, HS TROP, PTT, LACTIC, CBC, CUBLD, BMP, BNP ####[address] NRBC% 0.1 /100{WBC} Normal 0-0.5 [facility] Comment on above: Performed By: #### C K, PT, HS TROP, PTT, LACTIC, CBC, CUBLD, BMP, BNP ####[address] [place] [address] [facility] Creatine kinase [Enzymatic a ctivity/volume] in Serum or PlasmaOrdered By: Soto Simmons on 12-27-2023 CK [Catalytic activity/Vol] 70 U/L Normal 30-223 [facility] Comment on above: Performed By: #### C K, PT, HS TROP, PTT, LACTIC, CBC, CUBLD, BMP, BNP ####[address] [address] [facility] Creatinine [Mass/volume] in Serum or PlasmaOrdered By: Soto Adamsaníbal on 12-27-2023 Creatinine [Mass/Vol] 1.07 mg/dL Normal 0.70-1.30 [facility] Comment on above: Performed By: #### C K, PT, HS TROP, PTT, LACTIC, CBC, CUBLD, BMP, BNP ####[address] [address] [facility] D-Dimer High Sensitivityon 0 12-27-2023 D-Dimer High Sensitivity 653 ng/mL High 0-243 [facility] Comment on above: Result Comment: The reference range for D-dimer is <243 ng/mL D-dimer units. D-dimer results must be used in conjunction with a clinical pretest probability (PTP) assessment model for deep vein thrombosis (DVT) and pulmonary embolism (PE). Results <230 ng/mL d-dimer units can be used as a negative predictor in patients with low or moderate probability for DVT/PE. Results above the exclusion threshold of 230 ng/ml D-dimer units for DVT/PE may indicate the need for further diagnostic testing. D-Dimer can be increased in hospitalized patients due to co-morbid conditions. A hematocrit value greater than 55% may lead to inaccurate results in coagulation testing. Patients having hematocrit values >55% require a special collection tube for coagulation studies. Please contact the laboratory at [phone] for redraw instructions.PERFORMED BY:[address] [place], [place] [phone] MEDICAL DIRECTORZEFERINO ZIMMER M.D. Performed By: #### P T, DDIMER ####[address] [place] [address] [facility] Dipstick and Microscopicon 0 12-27-2023 Bacteria,Urine 2+ High None Seen [facility] Comment on above: Order Comment: Name Collection Type:: Clean-Voided Midstream Performed By: #### A DDONUAPLUS, CUU ####[address] [place] [address] [facility] Bilirubin,Urine Negative Normal Negative [facility] Comment on above: Order Comment: Name Collection Type:: Clean-Voided Midstream Performed By: #### A DDONUAPLUS, CUU ####[address] [address] [facility] Glucose Ql (U) 70 mg/dL High Normal [facility] Comment on above: Order Comment: Name Collection Type:: Clean-Voided Midstream Performed By: #### A DDONUAPLUS, CUU ####[address] [address] [facility] Hyaline Casts,Urine None Normal 0-8 [facility] Comment on above: Order Comment: Name Collection Type:: Clean-Voided Midstream Performed By: #### A DDONUAPLUS, CUU ####[address] [address] [facility] Mucus,Urine Rare Normal [facility] Comment on above: Order Comment: Name Collection Type:: Clean-Voided Midstream Result Comment: PERF ORMED BY:[address] [place], [place] [phone] MEDICAL DIRECTORZEFERINO ZIMMER M.D. Performed By: #### A DDONUAPLUS, CUU ####[address] [address] [place] Nitrite,Urine Negative Normal Negative [facility] Comment on above: Order Comment: Name Collection Type:: Clean-Voided Midstream Performed By: #### A DDONUAPLUS, CUU ####[address] [address] [facility] Occult Blood,Urine Negative Normal Negative [facility] Comment on above: Order Comment: Name Collection Type:: Clean-Voided Midstream Result Comment: PERF ORMED BY:[address] [place], [place] [phone] MEDICAL DIRECTORZEFERINO ZIMMER M.D. Performed By: #### A DDONUAPLUS, CUU ####[address] [address] [facility] Protein,Urine Negative Normal Negative [facility] Comment on above: Order Comment: Name Collection Type:: Clean-Voided Midstream Performed By: #### A DDONUAPLUS, CUU ####[address] [address] [facility] RBC,Urine 3-4 Normal 0-4 [facility] Comment on above: Order Comment: Name Collection Type:: Clean-Voided Midstream Performed By: #### A DDONUAPLUS, CUU ####[address] Specificy [place],Urine 1.016 Normal 1.00 1-1.03 0 [facility] Comment on above: Order Comment: Name Collection Type:: Clean-Voided Midstream Performed By: #### A DDONUAPLUS, CUU ####[place] [id number] [facility] Squamous Epithelial Cell,Urine 1-2 Normal 0-2 [facility] Comment on above: Order Comment: Name Collection Type:: Clean-Voided Midstream Performed By: #### A DDONUAPLUS, CUU ####[address] [address] [facility] Urobilinogen,Urine 4 mg/dL High Normal [facility] Comment on above: Order Comment: Name Collection Type:: Clean-Voided Midstream Performed By: #### A DDONUAPLUS, CUU ####[place] [id number] [facility] WBC CLUMP, Urine Rare High None Seen [facility] Comment on above: Order Comment: Name Collection Type:: Clean-Voided Midstream Performed By: #### A DDONUAPLUS, CUU ####[place] [address] WBC,Urine 50-100 High 0-4 [facility] Comment on above: Order Comment: Name Collection Type:: Clean-Voided Midstream Performed By: #### A DDONUAPLUS, CUU ####[place] [address] ECG 12 lead ECGon 12-27-2023 ECG 12 lead ECG Normal [facility] Epithelial cells.squamous [# /area] in Urine sediment by Automated countOrdered By: Soto Simmons on 12-27-2023 Epithelial cells.squamous Auto (Urine sed) [#/Area] 1-2 [HPF] 0-2 [facility] Erythrocyte distribution wid th [Ratio] by Automated countOrdered By: Soto Simmons on 12-27-2023 Erythrocyte distribution width (RBC) [Ratio] 13.3 % Normal 12.0-14.8 [facility] Comment on above: Performed By: #### C K, PT, HS TROP, PTT, LACTIC, CBC, CUBLD, BMP, BNP ####[place] [address] Erythrocytes [#/area] in Uri ne sediment by Automated countOrdered By: Soto Simmons on 12-27-2023 RBC Auto (Urine sed) [#/Area] 3-4 [HPF] 0-4 [facility] Erythrocytes [#/volume] in B lood by Automated countOrdered By: Soto Simmons on 12-27-2023 RBC (Bld) [#/Vol] 4.28 10*6/uL Normal 3.90-5.[address] [facility] Comment on above: Performed By: #### C K, PT, HS TROP, PTT, LACTIC, CBC, CUBLD, BMP, BNP ####[address] Fibrin D-dimer [Presence] in Platelet poor plasma by Latex agglutinationOrdered By: Conor John on 12-27-2023 Fibrin D-dimer LA Ql (PPP) 653 ng/mL High 0-243 [facility] Comment on above: The reference range for D-dimer is <243 ng/mL D-dimer units.D-dimer results must be used in conjunction with a clinicalpretest probability (PTP) assessment model for deep veinthrombosis (DVT) and pulmonary embolism (PE). Results <230ng/mL d-dimer units can be used as a negative predictor inpatients with low or moderate probability for DVT/PE.Results above the exclusion threshold of 230 ng/ml D-dimerunits for DVT/PE may indicate the need for furtherdiagnostic testing.D-Dimer can be increased in hospitalized patients due toco-morbid conditions.A hematocrit value greater than 55% may lead to inaccurate results in coagulation testing. Patients having hematocrit values >55% require a special collection tube for coagulation studies. Please contact the laboratory at [phone] for redraw instructions. Glucose [Mass/volume] in Ser um or PlasmaOrdered By: Soto Simmons on 12-27-2023 Glucose [Mass/Vol] 107 mg/dL High 70-100 [facility] Comment on above: ADA recommended refe rence rangeRandom Glucose Reference Range is dependent on time and content of last meal. Glucose of more than 200 mg/dL in a nonstressed, ambulatory subject supports the diagnosis of Diabetes Mellitus. Result Comment: [place] om Glucose Reference Range is dependent on time and content of last meal. Glucose of more than 200 mg/dL in a nonstressed, ambulatory subject supports the diagnosis of Diabetes Mellitus. ADA recommended reference range Performed By: #### C K, PT, HS TROP, PTT, LACTIC, CBC, CUBLD, BMP, BNP ####[facility] [id number] [place] [id number] [facility] Glucose [Mass/volume] in Uri ne by Test stripOrdered By: Soto Simmons on 12-27-2023 Glucose Test strip (U) [Mass/Vol] 70 mg/dL High Normal [facility] Gram stain for investigation of transfusion reactionOrdered By: Conor John on 12-27-2023 Microscopic observation Gram stain Nom (Unsp spec) May albicans Abnormal [facility] Hematocrit [Volume Fraction] of Blood by Automated countOrdered By: Soto Simmons on 12-27-2023 Hematocrit (Bld) [Volume fraction] 41.9 % Normal 38.8-50.0 [facility] Comment on above: Performed By: #### C K, PT, HS TROP, PTT, LACTIC, CBC, CUBLD, BMP, BNP ####[place] [address] Hemoglobin Test strip Ql (U) Ordered By: Soto Troy on 12-27-2023 Hemoglobin Ql (U) Negative Negative [facility] Hemoglobin [Mass/volume] in BloodOrdered By: Soto Simmons on 12-27-2023 Hemoglobin (Bld) [Mass/Vol] 14.1 g/dL Normal 13.0-17.0 [facility] Comment on above: Performed By: #### C K, PT, HS TROP, PTT, LACTIC, CBC, CUBLD, BMP, BNP ####[place] [address] Hyaline casts [#/area] in Ur ine sediment by Automated countOrdered By: Soto Simmons on 12-27-2023 Hyaline casts Auto (Urine sed) [#/Area] None [LPF] 0-8 [facility] INR in Platelet poor plasma by Coagulation assayOrdered By: Conor John on 12-27-2023 INR Coag (PPP) [Relative time] 1.2 {INR} Normal [facility] Comment on above: INR Therapeutic Rang e A) Pre- and Peroperative OAT started two weeks before surgery. NOT HIP SURGERY: 1.5 - 2.5 HIP SURGERY: 2 - 3B) Primary and secondary prevention of venous THROMBOSIS: 2 - 3C) Active venous thrombosis, pulmonary embolismand prevention of recurrent venous thrombosis: 2 - 3D) Prevention of arterial thromboembolismincluding patients with mechanical heart valves: 3 - 4.5 Result Comment: INR Therapeutic Range A) Pre- and Peroperative OAT started two weeks before surgery. NOT HIP SURGERY: 1.5 - 2.5 HIP SURGERY: 2 - 3 B) Primary and secondary prevention of venous THROMBOSIS: 2 - 3 C) Active venous thrombosis, pulmonary embolism and prevention of recurrent venous thrombosis: 2 - 3 D) Prevention of arterial thromboembolism including patients with mechanical heart valves: 3 - 4.5 Performed By: #### P T, DDIMER ####[address] INR in Platelet poor plasma by Coagulation assayOrdered By: Soto Simmons on 12-27-2023 INR Coag (PPP) [Relative time] 1.1 {INR} Normal [facility] Comment on above: INR Therapeutic Rang e A) Pre- and Peroperative OAT started two weeks before surgery. NOT HIP SURGERY: 1.5 - 2.5 HIP SURGERY: 2 - 3B) Primary and secondary prevention of venous THROMBOSIS: 2 - 3C) Active venous thrombosis, pulmonary embolismand prevention of recurrent venous thrombosis: 2 - 3D) Prevention of arterial thromboembolismincluding patients with mechanical heart valves: 3 - 4.5 Result Comment: INR Therapeutic Range A) Pre- and Peroperative OAT started two weeks before surgery. NOT HIP SURGERY: 1.5 - 2.5 HIP SURGERY: 2 - 3 B) Primary and secondary prevention of venous THROMBOSIS: 2 - 3 C) Active venous thrombosis, pulmonary embolism and prevention of recurrent venous thrombosis: 2 - 3 D) Prevention of arterial thromboembolism including patients with mechanical heart valves: 3 - 4.5 Performed By: #### C K, PT, HS TROP, PTT, LACTIC, CBC, CUBLD, BMP, BNP ####[address] [place] [address] [facility] Ketones [Presence] in Urine by Test stripOrdered By: Soto Simmons on 12-27-2023 Ketones Ql (U) 1+ High Negative [facility] Comment on above: Order Comment: Name Collection Type:: Clean-Voided Midstream Performed By: #### A DDONUAPLUS, CUU ####[address] [address] [facility] Lactate [Moles/volume] in Se rum or PlasmaOrdered By: Soto Simmons on 12-27-2023 Lactate [Moles/Vol] 1.3 mmol/L Normal 0.5-2.[address] [facility] Comment on above: Result Comment: PERF ORMED BY:[address] [place], [place] [phone] MEDICAL KELLY ZIMMER M.D. Performed By: #### C K, PT, HS TROP, PTT, LACTIC, CBC, CUBLD, BMP, BNP ####[facility] [id number] [place] [address] [facility] Legionella Pneumophilia Ag, Uron 12-27-2023 Legionella Pneumophilia Ag, Ur Negative Normal Negative [facility] Comment on above: Order Comment: SOURC E OF SPECIMEN: clean void Result Comment: Pres umptive negative for L. pneumophila serogroup 1 antigen in urine, suggesting no recent or current infection. Legionnaires' disease cannot be ruled out since other serogroups and species may also cause disease. Performed at: - [facility] [id number] [place] Generalist: Stephen Ramirez MD, Phone: [phone] Performed By: #### U R STP AG, URLEGIONELLA ####[facility] , Leukocyte clumps [Presence] in Urine by AutomatedOrdered By: Soto Simmons on 12-27-2023 Leukocyte clumps Auto Ql (U) Rare [LPF] High None Seen [facility] Leukocyte esterase [Presence ] in Urine by Test stripOrdered By: Soto Simmons on 12-27-2023 Leukocyte esterase Test strip Ql (U) 3+ High Negative [facility] Comment on above: Order Comment: Name Collection Type:: Clean-Voided Midstream Performed By: #### A DDONUAPLUS, CUU ####[facility] [id number] [place] [address] [facility] Leukocytes [#/area] in Urine sediment by Automated countOrdered By: Soto Simmons on 12-27-2023 WBC Auto (Urine sed) [#/Area] 50-100 [HPF] High 0-4 [facility] Leukocytes [#/volume] correc suri for nucleated erythrocytes in Blood by Automated counOrdered By: Soto Simmons on 12-27-2023 WBC corrected for nucl RBC Auto (Bld) [#/Vol] 14.0 10*3/uL High 4.1-10.5 [facility] Leukocytes [#/volume] in Blo od by Automated countOrdered By: Soto Simmons on 12-27-2023 WBC (Bld) [#/Vol] 14.0 10*3/uL High 4.1-10.[address] [facility] Comment on above: Performed By: #### C K, PT, HS TROP, PTT, LACTIC, CBC, CUBLD, BMP, BNP ####[address] Lymphocytes [#/volume] in Bl ood by Automated countOrdered By: Soto Simmons on 12-27-2023 Lymphocytes (Bld) [#/Vol] 1.1 10*3/uL Normal 1.00-4.8 [facility] Comment on above: Performed By: #### C K, PT, HS TROP, PTT, LACTIC, CBC, CUBLD, BMP, BNP ####[address] Lymphocytes/100 leukocytes i n Blood by Automated countOrdered By: Soto Simmons on 12-27-2023 Lymphocytes/100 WBC (Bld) 7.9 % Normal . [facility] Comment on above: Performed By: #### C K, PT, HS TROP, PTT, LACTIC, CBC, CUBLD, BMP, BNP ####[address] MCH [Entitic mass] by Automa suri countOrdered By: Soto Simmons on 12-27-2023 MCH (RBC) [Entitic mass] 32.8 pg Normal 27.5-35.2 [facility] Comment on above: Performed By: #### C K, PT, HS TROP, PTT, LACTIC, CBC, CUBLD, BMP, BNP ####[address] MCHC Auto (RBC) [Mass/Vol]Or dered By: Soto Simmons on 12-27-2023 MCHC (RBC) [Mass/Vol] 33.6 g/dL 32.5-35.6 [facility] MCV [Entitic volume] by Auto mated countOrdered By: Soto Simmons on 12-27-2023 MCV (RBC) [Entitic vol] 97.7 fL Normal 83.5-101 F [facility] Comment on above: Performed By: #### C K, PT, HS TROP, PTT, LACTIC, CBC, CUBLD, BMP, BNP ####[facility] [id number] [place] [address] [facility] Monocyte distribution width [Entitic volume] in Blood by AutomatedOrdered By: Soto Simmons on 12-27-2023 Monocyte distribution width Auto (Bld) [Entitic vol] 24.97 % High 0.00-20.00 [facility] Comment on above: For adults in ED, MD W > 20.0 may be associated with a higher risk of sepsis during the first 12 hrs of hospital admission Mucus [Presence] in Urine by AutomatedOrdered By: Soto Simmons on 12-27-2023 Mucus Auto Ql (U) Rare [LPF] [facility] Neutrophils [#/volume] in Bl ood by Automated countOrdered By: Soto Simmons on 12-27-2023 Neutrophils (Bld) [#/Vol] 12.5 10*3/uL High 1.8-7.7 [facility] Comment on above: Performed By: #### C K, PT, HS TROP, PTT, LACTIC, CBC, CUBLD, BMP, BNP ####[facility] [id number] [place] [address] [facility] Nitrite Test strip Ql (U)Ord ered By: Soto Simmons on 12-27-2023 Nitrite Ql (U) Negative Negative [facility] No Panel InformationOrdered By: Dc De La Rosa on 12-27-2023 Strep pneumoniae Special Info Comment . [facility] Comment on above: [employer] standards require aculture to be performed on CSF specimens submitted forbacterial antigen testing. (CAP [id number]) Urine specimenswill not be cultured. [employer] standards require aculture to be performed on CSF specimens submitted forbacterial antigen testing. (CAP [id number]) Urine specimenswill not be cultured.Performed at: [address] [id number] Director: Stephen Ramirez MD, Phone: [phone] --- 12/30/23 [phone] ---Please Note: previously reported as: Comment [employer] standards require aculture to be performed on CSF specimens submitted forbacterial antigen testing. (CAP [id number]) Urine specimenswill not be cultured. No Panel InformationOrdered By: Soto Simmons on 12-27-2023 Estimated GFR (CKD-EPI) > 60.0 mL/Min [facility] Creatinine Clearance (Chem 72.85 [facility] Nucleated erythrocytes [Pres ence] in Blood by Automated countOrdered By: Soto Simmons on 12-27-2023 Nucleated RBC Auto Ql (Bld) 0.1 /100{WBC} 0-0.5 [facility] Partial Thromboplastin Timeo n 12-27-2023 aPTT Coag (Bld) [Time] 28.0 s Normal 25.1-36.5 [facility] Comment on above: Result Comment: A he matocrit value greater than 55% may lead to inaccurate results in coagulation testing. Patients having hematocrit values >55% require a special collection tube for coagulation studies. Please contact the laboratory at [phone] for redraw instructions.PERFORMED BY:[address] [place], [place] [phone] MEDICAL DIRECTORZEFERINO ZIMMER M.D. Performed By: #### C K, PT, HS TROP, PTT, LACTIC, CBC, CUBLD, BMP, BNP ####[facility] [id number] [place] [address] [facility] Platelet mean volume [Entiti c volume] in Blood by Automated countOrdered By: Soto Simmons on 12-27-2023 Platelet mean volume (Bld) [Entitic vol] 6.6 fL Normal 6.6-10.1 [facility] Comment on above: Performed By: #### C K, PT, HS TROP, PTT, LACTIC, CBC, CUBLD, BMP, BNP ####[facility] [id number] [place] [address] [place] Platelets [#/volume] in Bloo d by Automated countOrdered By: Soto Simmons on 12-27-2023 Platelets (Bld) [#/Vol] 264 10*3/uL Normal 150-450 [facility] Comment on above: Performed By: #### C K, PT, HS TROP, PTT, LACTIC, CBC, CUBLD, BMP, BNP ####[facility] [place] [address] [facility] Potassium [Moles/volume] in Serum or PlasmaOrdered By: Soto Simmons on 12-27-2023 Potassium [Moles/Vol] 4.2 mmol/L Normal 3.5-5.1 [facility] Comment on above: Performed By: #### C K, PT, HS TROP, PTT, LACTIC, CBC, CUBLD, BMP, BNP ####[facility] [place] [address] [facility] Protein Test strip (U) [Mass /Vol]Ordered By: Soto Simmons on 12-27-2023 Protein (U) [Mass/Vol] Negative Negative [facility] Prothrombin time (PT)Ordered By: Conor John on 12-27-2023 PT Coag (PPP) [Time] 13.5 s High 9.0-12.9 [facility] Comment on above: A hematocrit value g reater than 55% may lead to inaccurate results in coagulation testing. Patients having hematocrit values >55% require a special collection tube for coagulation studies. Please contact the laboratory at [phone] for redraw instructions. Result Comment: A he matocrit value greater than 55% may lead to inaccurate results in coagulation testing. Patients having hematocrit values >55% require a special collection tube for coagulation studies. Please contact the laboratory at [phone] for redraw instructions. Performed By: #### P T, DDIMER ####[address] [place] [address] [facility] Prothrombin time (PT)Ordered By: Soto Simmons on 12-27-2023 PT Coag (PPP) [Time] 13.2 s High 9.0-12.9 [facility] Comment on above: A hematocrit value g reater than 55% may lead to inaccurate results in coagulation testing. Patients having hematocrit values >55% require a special collection tube for coagulation studies. Please contact the laboratory at [phone] for redraw instructions. Result Comment: A he matocrit value greater than 55% may lead to inaccurate results in coagulation testing. Patients having hematocrit values >55% require a special collection tube for coagulation studies. Please contact the laboratory at [phone] for redraw instructions. Performed By: #### C K, PT, HS TROP, PTT, LACTIC, CBC, CUBLD, BMP, BNP ####[facility] Serum or plasma anion gap de terminationOrdered By: Soto Simmons on 12-27-2023 Anion gap [Moles/Vol] 11.8 mmol/L Normal 6.0-15.0 [facility] Comment on above: Performed By: #### C K, PT, HS TROP, PTT, LACTIC, CBC, CUBLD, BMP, BNP ####[place] [address] [place] [id number] [facility] Sodium [Moles/volume] in Ser um or PlasmaOrdered By: Soto Simmons on 12-27-2023 Sodium [Moles/Vol] 133 mmol/L Low 136-145 [facility] Comment on above: Performed By: #### C K, PT, HS TROP, PTT, LACTIC, CBC, CUBLD, BMP, BNP ####[place] [address] [place] [id number] [facility] Specific gravity Test strip (U) [Rel density]Ordered By: Soto Simmons on 12-27-2023 Specific gravity (U) [Rel density] 1.016 1.001-1.[address] [facility] Specimen source identifiedOr dered By: Dc De La Roas on 12-27-2023 Specimen source Nom (Unsp spec) Urine Normal . [facility] Comment on above: Order Comment: SOURC E OF SPECIMEN: clean void Performed By: #### U R STP AG, URLEGIONELLA ####[facility] , Strep Pneumoniae Ag, Uron Body Fluid Culture Not indicated. Normal . [facility] Comment on above: Order Comment: SOURC E OF SPECIMEN: clean void Performed By: #### U R STP AG, URLEGIONELLA ####[facility] , Organism ID Not indicated. Normal . [facility] Comment on above: Order Comment: SOURC E OF SPECIMEN: clean void Performed By: #### U R STP AG, URLEGIONELLA ####[facility] , Please Note: Comment Normal . [facility] Comment on above: Order Comment: SOURC E OF SPECIMEN: clean void Result Comment: [employer] [place] [place] standards require a culture to be performed on CSF specimens submitted for bacterial antigen testing. (CAP NICKIE.[id number]) Urine specimens will not be cultured. [employer] [place] standards require a culture to be performed on CSF specimens submitted for bacterial antigen testing. (CAP NICKIE.[id number]) Urine specimens will not be cultured. Performed at: [address] [id number] [facility] Generalist: Stephen Ramirez MD, Phone: [phone] --- 12/30/23 1704 --- Please Note: previously reported as: Comment [employer] [place] [place] standards require a culture to be performed on CSF specimens submitted for bacterial antigen testing. (CAP NICKIE.[id number]) Urine specimens will not be cultured.PERFORMED BY:[place] [address] [place], [place] [phone] MEDICAL DIRECTORZEFERINO ZIMMER M.D. Performed By: #### U R STP AG, URLEGIONELLA ####[facility] , Streptococcus Pneumoniae Ag Negative Normal Negative [facility] Comment on above: Order Comment: SOURC E OF SPECIMEN: clean void Performed By: #### U R STP AG, URLEGIONELLA ####[facility] , Streptococcus pneumoniae ant igen detectionOrdered By: Dc De La Rosa on 12-27-2023 S. pneumoniae Ag Ql (Unsp spec) Negative Negative [facility] Troponin I High Sensitivityo n 12-27-2023 Troponin I High Sensitivity 7.1 pg/mL Normal 0.0-20.0 [facility] Comment on above: Result Comment: PERF ORMED BY:[address] [place], [place] [phone] MEDICAL DIRECTORJIANLAN SUN M.D. Performed By: #### C K, PT, HS TROP, PTT, LACTIC, CBC, CUBLD, BMP, BNP ####[facility] [id number] [facility] Troponin I.cardiac [Mass/vol ume] in Serum or Plasma by Detection limit <= 0.01 ng/Ordered By: Soto Simmons on 12-27-2023 Troponin I.cardiac DL <= 0.01 ng/mL [Mass/Vol] 7.1 pg/mL 0.0-20.0 [facility] Urea nitrogen [Mass/volume] in Serum or PlasmaOrdered By: Soto Simmons on 12-27-2023 Urea nitrogen [Mass/Vol] 17 mg/dL Normal 7-25 [facility] Comment on above: Performed By: #### C K, PT, HS TROP, PTT, LACTIC, CBC, CUBLD, BMP, BNP ####[place] [address] [place] [id number] [facility] Urine Cultureon 12-27-2023 Bacteria identified Cx Nom (U) Normal [facility] Comment on above: Performed By: #### A DDONUAPLUS, CUU ####[place] [address] [place] [id number] [facility] Urine Legionella antigen det ectionOrdered By: Dc De La Rosa on 12-27-2023 Legionella sp Ag Ql (U) Negative Negative F [facility] Comment on above: Presumptive negative for L. pneumophila serogroup 1 antigenin urine, suggesting no recent or current infection.Legionnaires' disease cannot be ruled out since otherserogroups and species may also cause disease.Performed at: [address] [id number] Director: Stephen Ramirez MD, Phone: [phone] Urine appearanceOrdered By: Soto Simmons on 12-27-2023 Appearance (U) Clear Normal Clear [facility] Comment on above: Order Comment: Name Collection Type:: Clean-Voided Midstream Performed By: #### A DDONUAPLUS, CUU ####[facility] [place] [id number] [facility] Urine culture routineOrdered By: Soto Simmons on 12-27-2023 Bacteria identified Cx Nom (U) Enterococcus faecalis Abnormal [facility] Urobilinogen Test strip (U) [Mass/Vol]Ordered By: Soto Adamsaníbal on 12-27-2023 Urobilinogen (U) [Mass/Vol] 4 mg/dL High Normal [facility] XR chest 1V portableon 12-26 XR chest 1V portable Normal [facility] pH of Urine by Test stripOrd ered By: Soto Adamsaníbal on 12-27-2023 pH (U) 6.0 [pH] Normal 5.0-9.0 [facility] Comment on above: Order Comment: Name Collection Type:: Clean-Voided Midstream Performed By: #### A ESCOBAR HATFIELD ####[place] [address] Alanine aminotransferase [En zymatic activity/volume] in Serum or PlasmaOrdered By: Ramon Banks on 12-08-2023 ALT [Catalytic activity/Vol] 27 U/L Normal 7-52 [facility] Comment on above: Performed By: #### C K, CMP, CBC, HS TROP ####[address] [place] [address] [place] Albumin [Mass/volume] in Ser um or Plasma by Bromocresol green (BCG) dye binding methoOrdered By: Ramon Banks on 12-08-2023 Albumin BCG dye [Mass/Vol] 4.0 g/dL 3.5-5.7 [facility] Alkaline phosphatase [Enzyma tic activity/volume] in Serum or PlasmaOrdered By: Ramon Banks on 12-08-2023 ALP [Catalytic activity/Vol] 66 U/L Normal 34-104 [facility] Comment on above: Performed By: #### C K, CMP, CBC, HS TROP ####[place] [id number] [place] Aspartate aminotransferase [ Enzymatic activity/volume] in Serum or PlasmaOrdered By: Ramon Banks on 12-08-2023 AST [Catalytic activity/Vol] 22 U/L Normal 13-39 [facility] Comment on above: Performed By: #### C K, CMP, CBC, HS TROP ####[address] Automated basophil %Ordered By: Ramon Jocelyn on 12-08-2023 Basophils/100 WBC (Bld) 1.0 % Normal . F [facility] Comment on above: Performed By: #### C K, CMP, CBC, HS TROP ####[address] Automated basophil countOrde red By: Ramon Banks on 12-08-2023 Basophils (Bld) [#/Vol] 0.1 10*3/uL Normal 0.0-0.2 [facility] Comment on above: Result Comment: PERF ORMED BY:[address] [place], [place] [phone] MEDICAL DIRECTORZEFERINO ZIMMER M.D. Performed By: #### C K, CMP, CBC, HS TROP ####[address] Automated blood monocyte cou ntOrdered By: Ramon Banks on 12-08-2023 Monocytes (Bld) [#/Vol] 1.2 10*3/uL High 0.0-0.8 [facility] Comment on above: Performed By: #### C K, CMP, CBC, HS TROP ####[address] Automated eosinophil %Ordere d By: Ramon Banks on 12-08-2023 Eosinophils/100 WBC (Bld) 1.3 % Normal . [facility] Comment on above: Performed By: #### C K, CMP, CBC, HS TROP ####[address] Automated eosinophil countOr dered By: Ramon Banks on 12-08-2023 Eosinophils (Bld) [#/Vol] 0.2 10*3/uL Normal 0.0-0.45 [facility] Comment on above: Performed By: #### C K, CMP, CBC, HS TROP ####[address] [place] [address] [facility] Automated monocyte %Ordered By: Ramon Banks on 12-08-2023 Monocytes/100 WBC (Bld) 8.6 % Normal . F [facility] Comment on above: Performed By: #### C K, CMP, CBC, HS TROP ####[place] [address] [place] [id number] [facility] Automated neutrophil %Ordere d By: Ramon Banks on 12-08-2023 Neutrophils/100 WBC (Bld) 56.6 % Normal . [facility] Comment on above: Performed By: #### C K, CMP, CBC, HS TROP ####[place] [id number] [facility] Bilirubin.total [Mass/volume ] in Serum or PlasmaOrdered By: Ramon Banks on 12-08-2023 Bilirubin [Mass/Vol] 1.0 mg/dL Normal 0.3-1.0 [facility] Comment on above: Performed By: #### C K, CMP, CBC, HS TROP ####[address] cervical spine wo conon 0 12-08-2023 CT cervical spine wo con Normal [facility] Calcium [Mass/volume] in Ser um or PlasmaOrdered By: Ramon Banks on 12-08-2023 Calcium [Mass/Vol] 8.9 mg/dL Normal 8.6-10.3 [facility] Comment on above: Performed By: #### C K, CMP, CBC, HS TROP ####[place] [id number] [facility] Carbon dioxide, total [Moles /volume] in Serum or PlasmaOrdered By: Ramon Banks on 12-08-2023 CO2 [Moles/Vol] 28.1 mmol/L Normal 21.0-31.0 [facility] Comment on above: Performed By: #### C K, CMP, CBC, HS TROP ####[place] [id number] [facility] Chloride [Moles/volume] in S kay or PlasmaOrdered By: Ramon Banks on 12-08-2023 Chloride [Moles/Vol] 100 mmol/L Normal 98-107 [facility] Comment on above: Performed By: #### C K, CMP, CBC, HS TROP ####[place] [address] Complete Blood Count Auto Di ffon 12-08-2023 Mean Corpuscular HGB Conc 34.0 g/dL Normal 32.5-35.6 [facility] Comment on above: Performed By: #### C K, CMP, CBC, HS TROP ####[address] Monocytes/100 WBC (Bld) 20.37 % High 0.00-20.00 [facility] Comment on above: Result Comment: For adults in ED, MDW > 20.0 may be associated with a higher risk of sepsis during the first 12 hrs of hospital admission Performed By: #### C K, CMP, CBC, HS TROP ####[address] NRBC% 0.1 /100{WBC} Normal 0-0.5 [facility] Comment on above: Performed By: #### C K, CMP, CBC, HS TROP ####[address] Comprehensive Metabolic Pane raudel 12-08-2023 Albumin [Mass/Vol] 4.0 g/dL Normal 3.5-5.7 [facility] Comment on above: Performed By: #### C K, CMP, CBC, HS TROP ####[address] Creatinine Clr Calc Pharmacy 83.31 Normal [facility] Comment on above: Result Comment: PERF ORMED BY:[address] [place], [place] [phone] MEDICAL DIRECTORZEFERINO ZIMMER M.D. Performed By: #### C K, CMP, CBC, HS TROP ####[place] [id number] [facility] GFR/1.73 sq M.predicted MDRD (S/P/Bld) [Vol rate/Area] mL/min/{1.73_m2} Normal [facility] Comment on above: Performed By: #### C K, CMP, CBC, HS TROP ####[place] [id number] [facility] Creatine kinase [Enzymatic a ctivity/volume] in Serum or PlasmaOrdered By: Ramon Banks on 12-08-2023 CK [Catalytic activity/Vol] 69 U/L Normal 30-223 [facility] Comment on above: Performed By: #### C K, CMP, CBC, HS TROP ####[place] [id number] [facility] Creatinine [Mass/volume] in Serum or PlasmaOrdered By: Ramon Banks on 12-08-2023 Creatinine [Mass/Vol] 0.94 mg/dL Normal 0.70-1.30 [facility] Comment on above: Performed By: #### C K, CMP, CBC, HS TROP ####[place] [id number] [facility] ECG 12 lead ECGon 12-08-2023 ECG 12 lead ECG Normal [facility] Erythrocyte distribution wid th [Ratio] by Automated countOrdered By: Ramon Banks on 12-08-2023 Erythrocyte distribution width (RBC) [Ratio] 13.8 % Normal 12.0-14.8 [facility] Comment on above: Performed By: #### C K, CMP, CBC, HS TROP ####[place] [id number] [facility] Erythrocytes [#/volume] in B lood by Automated countOrdered By: Ramon Banks on 12-08-2023 RBC (Bld) [#/Vol] 4.47 10*6/uL Normal 3.90-5.[address] [facility] Comment on above: Performed By: #### C K, CMP, CBC, HS TROP ####[place] [id number] [place] Glucose [Mass/volume] in Ser um or PlasmaOrdered By: Ramon Banks on 12-08-2023 Glucose [Mass/Vol] 105 mg/dL High 70-100 [facility] Comment on above: ADA recommended refe rence rangeRandom Glucose Reference Range is dependent on time and content of last meal. Glucose of more than 200 mg/dL in a nonstressed, ambulatory subject supports the diagnosis of Diabetes Mellitus. Result Comment: [place] om Glucose Reference Range is dependent on time and content of last meal. Glucose of more than 200 mg/dL in a nonstressed, ambulatory subject supports the diagnosis of Diabetes Mellitus. ADA recommended reference range Performed By: #### C K, CMP, CBC, HS TROP ####[facility] [id number] [address] Hematocrit [Volume Fraction] of Blood by Automated countOrdered By: Ramon Banks on 12-08-2023 Hematocrit (Bld) [Volume fraction] 43.8 % Normal 38.8-50.0 [facility] Comment on above: Performed By: #### C K, CMP, CBC, HS TROP ####[facility] [id number] [address] Hemoglobin [Mass/volume] in BloodOrdered By: Ramon Banks on 12-08-2023 Hemoglobin (Bld) [Mass/Vol] 14.9 g/dL Normal 13.0-17.0 [facility] Comment on above: Performed By: #### C K, CMP, CBC, HS TROP ####[facility] [id number] [place] [address] Leukocytes [#/volume] correc suri for nucleated erythrocytes in Blood by Automated counOrdered By: Ramon Bakns on 12-08-2023 WBC corrected for nucl RBC Auto (Bld) [#/Vol] 13.7 10*3/uL High 4.1-10.5 [facility] Leukocytes [#/volume] in Blo od by Automated countOrdered By: Ramon Banks on 12-08-2023 WBC (Bld) [#/Vol] 13.7 10*3/uL High 4.1-10.[address] [facility] Comment on above: Performed By: #### C K, CMP, CBC, HS TROP ####[facility] [id number] [address] Lymphocytes [#/volume] in Bl ood by Automated countOrdered By: Ramon Banks on 12-08-2023 Lymphocytes (Bld) [#/Vol] 4.5 10*3/uL Normal 1.00-4.8 [facility] Comment on above: Performed By: #### C K, CMP, CBC, HS TROP ####[address] Lymphocytes/100 leukocytes i n Blood by Automated countOrdered By: Ramon Banks on 12-08-2023 Lymphocytes/100 WBC (Bld) 32.5 % Normal . [facility] Comment on above: Performed By: #### C K, CMP, CBC, HS TROP ####[address] MCH [Entitic mass] by Automa suri countOrdered By: Ramon Banks on 12-08-2023 MCH (RBC) [Entitic mass] 33.3 pg Normal 27.5-35.2 [facility] Comment on above: Performed By: #### C K, CMP, CBC, HS TROP ####[address] MCHC Auto (RBC) [Mass/Vol]Or dered By: Ramon Banks on 12-08-2023 MCHC (RBC) [Mass/Vol] 34.0 g/dL 32.5-35.6 [facility] MCV [Entitic volume] by Auto mated countOrdered By: Ramon Banks on 12-08-2023 MCV (RBC) [Entitic vol] 97.9 fL Normal 83.5-101 F [facility] Comment on above: Performed By: #### C K, CMP, CBC, HS TROP ####[address] Monocyte distribution width [Entitic volume] in Blood by AutomatedOrdered By: Ramon Banks on 12-08-2023 Monocyte distribution width Auto (Bld) [Entitic vol] 20.37 % High 0.00-20.00 [facility] Comment on above: For adults in ED, MD W > 20.0 may be associated with a higher risk of sepsis during the first 12 hrs of hospital admission Neutrophils [#/volume] in Bl ood by Automated countOrdered By: Ramon Banks on 12-08-2023 Neutrophils (Bld) [#/Vol] 7.7 10*3/uL Normal 1.8-7.7 [facility] Comment on above: Performed By: #### C K, CMP, CBC, HS TROP ####[place] [address] No Panel InformationOrdered By: Ramon Banks on 12-08-2023 Estimated GFR (CKD-EPI) > 60.0 mL/Min [facility] Creatinine Clearance (Chem 83.31 [facility] Nucleated erythrocytes [Pres ence] in Blood by Automated countOrdered By: Ramon Banks on 12-08-2023 Nucleated RBC Auto Ql (Bld) 0.1 /100{WBC} 0-0.5 [facility] Platelet mean volume [Entiti c volume] in Blood by Automated countOrdered By: Ramon Banks on 12-08-2023 Platelet mean volume (Bld) [Entitic vol] 7.0 fL Normal 6.6-10.1 [facility] Comment on above: Performed By: #### C K, CMP, CBC, HS TROP ####[place] [address] Platelets [#/volume] in Bloo d by Automated countOrdered By: Ramon Banks on 12-08-2023 Platelets (Bld) [#/Vol] 253 10*3/uL Normal 150-450 [facility] Comment on above: Performed By: #### C K, CMP, CBC, HS TROP ####[place] [address] Potassium [Moles/volume] in Serum or PlasmaOrdered By: Ramon Banks on 12-08-2023 Potassium [Moles/Vol] 4.4 mmol/L Normal 3.5-5.1 [facility] Comment on above: Performed By: #### C K, CMP, CBC, HS TROP ####[address] Protein [Mass/volume] in Ser um or PlasmaOrdered By: Ramon Banks on 12-08-2023 Protein [Mass/Vol] 6.3 g/dL Low 6.4-8.9 [facility] Comment on above: Performed By: #### C K, CMP, CBC, HS TROP ####[address] Serum globulin measurement b y calculation (mass/volume)Ordered By: Ramon Banks on 12-08-2023 Globulin (S) [Mass/Vol] 2.3 g/dL Normal [facility] Comment on above: Performed By: #### C K, CMP, CBC, HS TROP ####[address] Serum or plasma albumin/glob ulin mass ratioOrdered By: Ramon Banks on 12-08-2023 Albumin/Globulin [Mass ratio] 1.7 {ratio} Normal [facility] Comment on above: Performed By: #### C K, CMP, CBC, HS TROP ####[address] Serum or plasma anion gap de terminationOrdered By: Ramon Banks on 12-08-2023 Anion gap [Moles/Vol] 10.3 mmol/L Normal 6.0-15.0 [facility] Comment on above: Performed By: #### C K, CMP, CBC, HS TROP ####[address] Sodium [Moles/volume] in Ser um or PlasmaOrdered By: Ramon Banks on 12-08-2023 Sodium [Moles/Vol] 134 mmol/L Low 136-145 [facility] Comment on above: Performed By: #### C K, CMP, CBC, HS TROP ####[address] Troponin I High Sensitivityo n 12-08-2023 Troponin I High Sensitivity 4.7 pg/mL Normal 0.0-20.0 [facility] Comment on above: Result Comment: PERF ORMED BY:[address] [place], [place] [phone] MEDICAL DIRECTORZEFERINO ZIMMER M.D. Performed By: #### C K, CMP, CBC, HS TROP ####[facility] [place] [address] [facility] Troponin I.cardiac [Mass/vol ume] in Serum or Plasma by Detection limit <= 0.01 ng/Ordered By: Ramon Banks on 12-08-2023 Troponin I.cardiac DL <= 0.01 ng/mL [Mass/Vol] 4.7 pg/mL 0.0-20.0 [facility] Urea nitrogen [Mass/volume] in Serum or PlasmaOrdered By: Ramon Banks on 12-08-2023 Urea nitrogen [Mass/Vol] 22 mg/dL Normal - [facility] Comment on above: Performed By: #### C K, CMP, CBC, HS TROP ####[place] [address] [place] [address] [facility] XR elbow LT min 3V*on 2023 XR elbow LT min 3V* Normal [facility] MR head/brain wo conon 09-21 MR head/brain wo con Normal [facility] Consent for Treatmenton 12-09 Consent for Treatment [id number] [facility] Consultation Noteon 12-25-19 Consultation Note Patient: JUAN SIMON Age: 67 years Sex: Male : 1955 Associated Diagnoses: None Author: Elenita Lazar PA-C Subjective Chief complaint 12/24/2022 8:30 EDT Low back pain . Patient is a 67-year-old male. He has a past medical history significant for postlaminectomy syndrome, chronic pain, cervical stenosis, imbalance and chronic lower back pain. At this time, he still denies any radicular symptoms. Is mainly back pain. He rates it a 7/10. Patient then shared with me that he has had 6 falls since his last appointment, but he states that they are all due to the foster dog that they have. The dog is getting under his feet and knocking him over. He is hoping that the foster dog is doing to find a new home soon. Patient most recently underwent a repeat caudal epidural steroid injection. This was done on 10/21/2022 and he states did not give him any significant relief but then stated that his leg pain was better. This is still better. After his last appointment, due to the falls, he discontinued the gabapentin. He states that it has maybe gotten somewhat better but it is not perfect. He is still off the gabapentin. He has not noticed much change in regards to his pain. Patient does have a spinal cord stimulator. He states that he uses it more regularly. He states that he has not yet spoken to the spinal cord stimulator representative personal service. Health Status Allergies: Allergic Reactions (Selected) Severity Not Documented Barley- No reactions were documented. Morphine- No reactions were documented. Stratford- No reactions were documented. Wheat- No reactions were documented., Allergies (4) Active Reaction Barley None Documented morphine None Documented [place] None Documented Wheat None Documented Current medications: (Selected) Prescriptions Prescribed cyclobenzaprine 10 mg Tab: 10 mg = 1 tab(s), Oral, TID, PRN for spasm, X 90 day(s), # 270 tab(s), Refills(s) 0, Pharmacy: [id number], 162, cm, 10/21/22 8:00:00 EDT, Height/Length Dosing, 98, kg, 09/24/22 13:53:00 EDT, Weight Dosing front wheeled walker: front wheeled walker, See Instructions, 1 EA, 0, front wheeled walker to be used for stablility Length of need: 99, Supply walker: walker, wheeled walker with a seat DX: M96.1 length of need 99, Print Requisition, Supply Documented Medications Documented Adipex-P: 37.5 mg, Oral, Daily, Refills(s) 0 Advair 500 mcg-50 mcg Powder: 2 puff(s), Inhalation, BID, Refill(s) 0 Celebrex: 100 mg, Oral, Daily, Refills(s) 0 Fiorinal 325 mg-50 mg-40 mg Cap: 2 cap(s), Oral, q6hr for pain, Refill(s) 0 Multi Vitamins oral tablet: 1 tab(s), Oral, Daily, Refill(s) 0 Multivitamin, Therapeutic w/ Minerals: 1 tab(s), Oral, Daily, 30 tab(s), Refill(s) 0 Oyster-D oral tablet: 1 tab(s), Oral, BID, Refill(s) 0 Pro-Air HFA CFC free 90 mcg/inh MDI: 1 puff(s), Inhalation, BID for wheezing, 8.5 gram, Refill(s) 0 atenolol: 25 mg, Oral, Daily, Refills(s) 0 divalproex sodium: 125 mg, Oral, Daily, Refills(s) 0 doxepin 10 mg Cap: Refills(s) 0 ibuprofen 200 mg Tab: 400 mg = 2 tab(s), Oral, q4hr, PRN for pain, # 120 tab(s), Refills(s) 0 montelukast 10 mg Tab: 10 mg = 1 tab(s), Oral, qPM, # 30 tab(s), Refills(s) 0 Problem list: All Problems Celiac disease / SNOMED CT 9073063016 / Confirmed Cancer / SNOMED CT 692526848 / Confirmed T cell lymphoma-3 years ago Snoring / SNOMED CT 556272244 / Confirmed Acid reflux / SNOMED CT 780218729 / Confirmed Anemia / SNOMED CT 030165950 / Confirmed Rheumatoid arthritis / SNOMED CT 795507597 / Confirmed Osteoarthritis / SNOMED CT 5369737859 / Confirmed Lymphoma / SNOMED CT 177039918 / Confirmed Lumbar post-laminectomy syndrome / SNOMED CT 415005240 / Confirmed 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 Overweight Ambulating with a cane Eye: Normal conjunctiva. HENT: Normocephalic, Normal hearing. Cardiovascular: No edema. Musculoskeletal Normal range of motion. Normal strength. 5/5 lower extremity strength other than bilateral hip flexion 4+ to 5 -/5 Bilateral upper extremity 5/5 other than bilateral deltoid 4+ to 5 -/5 Integumentary: Warm, Dry, [place]. Neurologic: Alert, Oriented. Psychiatric: Cooperative, Appropriate mood & affect. Results Review Lumbar MRI. Report only. 11/17/2022. Small disc bulge at L3-4, L4-5, and L5-S1. Previous postsurgical changes and decompression at L4-5. No significant central stenosis or foraminal stenosis. Spinal cord stimulator leads in place. Impression and Plan Patient is a 67-year-old male. He has a past me (more content not included)... [facility] Comment on above: Result Comment: Elec tronically Signed By: Elenita Lazar PA-C\.br\Date and Time Signed: 12/24/22 08:46 EDT\.br\Electronically Co-Signed By: Kilo BARAJAS, Mark Khoury\.br\Date and Time Co-Signed: 01/13/23 07:30 EDT Office/Clinic Note-Physician on 12-24-2022 Office/Clinic Note-Physician [id number]#1.00CD:127 [facility] Patient Correspondenceon Patient Correspondence [id number]#1.00CD:127 [facility] Patient Correspondence [id number]#1.00CD:127 [facility] Patient History Officeon Patient History Office [id number]#1.00CD:127 [facility] Consent for Treatmenton 11-08 Consent for Treatment [id number]#1.00CD:127 [facility] Consultation Noteon 11-27-19 Consultation Note Patient: JUAN SIMON Age: 67 years Sex: Male : 1955 Associated Diagnoses: None Author: Elenita Lazar PA-C Subjective Chief complaint 11/26/2022 12:51 EDT lower back pain . Patient is a 67-year-old male. He has a past medical history significant for postlaminectomy syndrome, chronic pain, cervical stenosis, cervical neuritis, lumbar neuritis, imbalance and bilateral hand tingling. Patient was seen by Dr. Mckinney. Dr. Holley did not feel that his symptoms were coming from cervical stenosis. Patient did see his primary care physician. His primary care physician ordered an updated lumbar MRI to reassess his possible reasons for falling. He has not seen his primary care physician since having the MRI. Patient also underwent repeat caudal epidural steroid injection. This was done on 10/21/2022 and he states did not give him any significant relief but then states that his leg pain is better but he does not think it is from the recent injection. He still has lower back pain. For his pains and discomforts, patient uses gabapentin as well as Flexeril. He has been having an increased amount of falling over the last few months and his wonders if it is probably from the gabapentin. They cut it in half recently to 1 in the morning and 1 at night and states that maybe the following has gotten somewhat better but they are not sure. Patient states that the falling comes in spurts. He recently fell back behind the television and got tangled in the cords and knocked the television on the ground. Patient does have a spinal cord stimulator. He states that he uses it intermittently. A lot of times, he turns it down so he does not feel it because he did not think he was supposed to feel it but then does not notice that it works. Sometimes he states that it is up to high though it hurts him. Health Status Allergies: Allergic Reactions (Selected) Severity Not Documented Barley- No reactions were documented. Morphine- No reactions were documented. Stratford- No reactions were documented. Wheat- No reactions were documented., Allergies (4) Active Reaction Barley None Documented morphine None Documented [place] None Documented Wheat None Documented Current medications: (Selected) Prescriptions Prescribed cyclobenzaprine 10 mg Tab: 10 mg = 1 tab(s), Oral, TID, PRN for spasm, X 90 day(s), # 270 tab(s), Refills(s) 0, Pharmacy: [id number], 162, cm, 10/21/22 8:00:00 EDT, Height/Length Dosing, 98, kg, 09/24/22 13:53:00 EDT, Weight Dosing front wheeled walker: front wheeled walker, See Instructions, 1 EA, 0, front wheeled walker to be used for stablility Length of need: 99, Supply gabapentin 300 mg Cap: 600 mg = 2 cap(s), Oral, TID, X 30 day(s), # 180 cap(s), Refills(s) 2, Pharmacy: [facility] #[id number], 162, cm, 10/21/22 8:00:00 EDT, Height/Length Dosing, 98, kg, 09/24/22 13:53:00 EDT, Weight Dosing walker: walker, wheeled walker with a seat DX: M96.1 length of need 99, Print Requisition, Supply Documented Medications Documented Adipex-P: 37.5 mg, Oral, Daily, Refills(s) 0 Advair 500 mcg-50 mcg Powder: 2 puff(s), Inhalation, BID, Refill(s) 0 Celebrex: 100 mg, Oral, Daily, Refills(s) 0 Fiorinal 325 mg-50 mg-40 mg Cap: 2 cap(s), Oral, q6hr for pain, Refill(s) 0 Multi Vitamins oral tablet: 1 tab(s), Oral, Daily, Refill(s) 0 Multivitamin, Therapeutic w/ Minerals: 1 tab(s), Oral, Daily, 30 tab(s), Refill(s) 0 Oyster-D oral tablet: 1 tab(s), Oral, BID, Refill(s) 0 Pro-Air HFA CFC free 90 mcg/inh MDI: 1 puff(s), Inhalation, BID for wheezing, 8.5 gram, Refill(s) 0 atenolol: 25 mg, Oral, Daily, Refills(s) 0 divalproex sodium: 125 mg, Oral, Daily, Refills(s) 0 ibuprofen 200 mg Tab: 400 mg = 2 tab(s), Oral, q4hr, PRN for pain, # 120 tab(s), Refills(s) 0 montelukast 10 mg Tab: 10 mg = 1 tab(s), Oral, qPM, # 30 tab(s), Refills(s) 0 phentermine 37.5 mg Tab: take 1 tablet by mouth once daily Problem list: All Problems Celiac disease / SNOMED CT 5232193219 / Confirmed Cancer / SNOMED CT 939031102 / Confirmed T cell lymphoma-3 years ago Snoring / SNOMED CT 747939848 / Confirmed Acid reflux / SNOMED CT 303021248 / Confirmed Anemia / SNOMED CT 866935728 / Confirmed Rheumatoid arthritis / SNOMED CT 617039177 / Confirmed Osteoarthritis / SNOMED CT 4281693345 / Confirmed Lymphoma / SNOMED CT 876742845 / Confirmed Lumbar post-laminectomy syndrome / SNOMED CT 085408346 / Confirmed 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 CT 27496474 / Confirmed Chronic pain / SNOMED CT 474371174 / Confirmed Long-term current use of opiate analgesic drug / SNOMED CT 997521722173634 / Confirmed Added secondary to current Opioid Treatment Agreement Obesity / ICD-9-CM 278.00 / Possible Objective Vital Signs 11/26/2022 12:51 EDT Peripheral Pulse Rate 97 bpm Respiratory Rate 14 br/min Systolic Blood Pressure 142 mmHg HI Diastolic Blood Pressure 78 mmHg Mean Arterial (more content not included)... [facility] Comment on above: Result Comment: Elec tronically Signed By: Elenita Lazar PA-C\.br\Date and Time Signed: 11/26/22 13:18 EDT\.br\Electronically Co-Signed By: Mark Boateng MD\.br\Date and Time Co-Signed: 12/02/22 10:48 EDT Office/Clinic Note-Physician on 11-26-2022 Office/Clinic Note-Physician [id number]#1.00CD:127 [facility] Patient Correspondenceon Patient Correspondence 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 yon 11-26-2022 Radiology Outside Office Copy [id number]#1.00CD:127 [facility] Outside Records Officeon Outside Records Office [id number]#1.00CD:127 [facility] Consent for Procedure/Surger yon 10-21-2022 Consent for Procedure/Surgery [id number]#1.00CD:127 [facility] Consent for Treatmenton 10-09 Consent for Treatment [id number]#1.00CD:127 [facility] Discharge Instructionson Discharge Instructions [id number]#1.00CD:127 [facility] IntraOperative Documentson 0 10-21-2022 IntraOperative Documents [id number]#1.00CD:127 [facility] Main OR Intraoperative Recor don 10-21-2022 Main OR Intraoperative Record IntraOp Document Type FTPM Summary Primary Physician: Mark Boateng MD Finalized Date/Time: 10/21/22 08:45:00 Pt. Name: NUZHATKEERTHIJUAN QUINTANA/Sex: 1955 Male Med Rec #: [id number] Physician: Mark Boateng MD Financial #: [id number] Pt. Type: P Room/Bed: / Admit/Disch: 10/21/22 07:41:07 - Institution: Case Times FTPM Entry 1 Patient Times In Room 10/21/22 08:38:00 Out Room 10/21/22 08:44:00 Procedure Times Start 10/21/22 08:41:00 Stop 10/21/22 08:43:00 Anesthesia Times Last Modified By: Aracelis Bailey RN 10/21/22 08:44:53 Case Attendance FTPM Entry 1 Entry 2 Entry 3 Case Attendee Kilo BARAJAS, Mark Basilio RN, Valeria Bailey RN, Aracelis Galindo Role Performed Surgeon - Primary Scrub - Primary Forest Fire Officer - Primary Time In 10/21/22 08:38:00 10/21/22 08:38:00 10/21/22 08:38:00 Time Out 10/21/22 08:44:00 10/21/22 08:44:00 10/21/22 08:44:00 Procedure CAUDAL EPIDURAL STEROID CAUDAL EPIDURAL STEROID CAUDAL EPIDURAL STEROID INJECTION(.) INJECTION(.) INJECTION(.) Comments Last Modified By: Leo MARION, Aracelis Bailey RN, Aracelis Ross RN 10/21/22 08:44:54 10/21/22 08:44:54 10/21/22 08:44:54 Entry 4 Entry 5 Case Attendee Chavez CRESPO(R), Kianna Wolf Role Performed Support Clerk Support Clerk Time In 10/21/22 08:38:00 10/21/22 08:38:00 Time Out 10/21/22 08:44:00 10/21/22 08:44:00 Procedure CAUDAL EPIDURAL STEROID CAUDAL EPIDURAL STEROID INJECTION(.) INJECTION(.) Comments Last Modified By: Leo MARION, Aracelis Ross RN 10/21/22 08:44:54 10/21/22 08:44:54 Perioperative Protocols FTPM Pre-Care Text: Implements protective measures prior to operative or invasive procedure, confirms identity before the operative or invasive procedure, verifies operative procedure, surgical site, and laterality Entry 1 Procedure(s) CAUDAL EPIDURAL STEROID Patient Identity Birthday, ID Band INJECTION(.) Verified (select at Check, Patient least 2): Participation Consents / H and P HandP, Surgery/Procedure Operative Site Present Verified Consent Marking Verified Surgical Site Yes Laterality Verified Yes Verified Procedure Verified Yes Correct Patient Yes Position Verified Availability Equipment, Medication, Prep Dry Yes Verified (If X-ray Applicable) PreOp Antibiotic No Time Out Aracelis Bailey RN, Praful MARION, Valeria Flores, Kilo BARAJAS, Mark Khoury, Chavez RT(R), Yinka Ramírez Laura M Time Out Complete 10/21/22 08:39:00 Outcomes Met? Yes Last Modified By: Aracelis Bailey RN 10/21/22 08:39:12 Post-Care Text: The patient is free from signs and symptoms of injury caused by extraneous objects Allergy Information FTPM Pre-Care Text: Verifies allergies Entry 1 Allergies Reviewed? Yes Allergies Reviewed Self/Patient With Outcomes Met? Yes Last Modified By: Aracelis Bailey RN 10/21/22 07:45:45 Post-Care Text: The patient received appropriate medication(s) safely administered during the perioperative period Surgical Procedures FTPM Entry 1 Procedure Description Procedure CAUDAL EPIDURAL STEROID Modifiers . INJECTION Surgeon Description CAUDAL MOLLY Primary Procedure Yes Primary Surgeon Kilo BARAJAS, Mark Khoury Start 10/21/22 08:41:00 Stop 10/21/22 08:43:00 Anesthesia Type None Surgical Service Pain Management Wound Class 1 - Clean Last Modified By: Aracelis Bailey RN 10/21/22 08:44:56 General Case Data FTPM Pre-Care Text: Classifies surgical wound, implements aseptic technique, initiates traffic control Entry 1 Case Information OR Pain Proc Room Case Level Level 2 Wound Class 1 - Clean Specialty Pain Management Preop Diagnosis M96.1 Postop Same As Preop Yes Postop Diagnosis M96.1 Outcomes Met? Yes Last Modified By: Aracelis Bailey RN 10/21/22 08:39:22 Post-Care Text: The patient is free from signs and symptoms of infection Skin Assessment (Pre Procedure) FTPM Pre-Care Text: Implements protective measures to prevent skin/ tissue injury due to thermal or mechanical sources Evaluates for signs and symptoms of physical injury to skin and tissue Entry 1 Skin Integrity Intact, [place], Warm, and Skin Abnormality No Dry Outcomes Met? Yes Last Modified By: Aracelis Bailey RN 10/21/22 07:45:54 Post-Care Text: The patient is free from signs and symptoms of injury caused by extraneous objects Patient Positioning FTPM Pre-Care Text: Identifies physical alterations that require additional precautions for procedure-specific positioning, verifies presence of prosthetics or corrective devices, positions the patient, evaluates the patient for signs and symptoms of injury as a result of positioning Entry 1 Procedure CAUDAL EPIDURAL STEROID Body Position Prone INJECTION(.) Feet Uncrossed? Yes Left Arm Position Resting at Side Right Arm Position Resting at Side Left Leg Position Extende (more content not included)... [facility] Main OR Preoperative Recordo n 10-21-2022 Main OR Preoperative Record Holding Area Document Type FTPM Summary Primary Physician: Mark Boateng MD Finalized Date/Time: 10/21/22 08:41:36 Pt. Name: JUAN SIMON Mis Grossman./Sex: 1955 Male Med Rec #: [id number] Physician: Mark Boateng MD Financial #: [id number] Pt. Type: P Room/Bed: / Admit/Disch: 10/21/22 07:41:07 - Institution: Case Times Holding FTPM Pre-Care Text: Verifies consent for planned procedure, identifies individual values and wishes concerning care, includes family members in perioperative teaching Secures patient's records' belongings, and valuables, maintains patient's dignity and privacy, and maintains patient confidentiality Entry 1 In Holding 10/21/22 08:05:00 Outcomes Met? Yes Last Modified By: Samantha Hsu RN 10/21/22 08:05:19 Post-Care Text: The patient participates in decisions affecting his or her perioperative plan of care The patient's right to privacy is maintained Surgery Checklist FTPM Entry 1 Patient Birthday, ID Band Procedure History and Physical, Identification: Check, Patient Verification: Surgical Consent Participation NPO after Midnight: Yes Date/Time: 10/20/22 19:00:00 Personal Items: Cataract Lens Implant, Personal Items one ring, and one Glasses, Jewelry Comment: watch, rollater Complaints of Pain: Yes Pain Comment: 8/10 to lower lumbar Marked By: operative site marked Availability Equipment, X-Ray by Dr. Boateng Verified: Does Patient Smoke No Patient states Yes Comment - Adult Denise- postop adult Supervision supervision available Case Cancelled in No Holding Area see comments below for reason Last Modified By: Samantha Hsu RN 10/21/22 08:33:06 Finalized By: Samantha Hsu RN Document Signatures Signed By: Samantha Hsu RN 10/21/22 08:07 Samantha Hsu RN 10/21/22 08:41 [facility] Operative Reporton Operative Report Patient: JUAN SIMON Age: 67 years Sex: Male : 1955 Associated Diagnoses: None Author: Mark Boateng MD Procedure Procedure: Caudal Epidural Steroid Injection with Fluoroscopic Guidance Diagnosis: Lumbar Post laminectomy syndrome Anesthesia: local The patient was identified in the pre-op area. The procedure, including risks benefits and alternatives was discussed with the patient. The patient agreed to proceed. Informed consent was obtained and the site(s) marked. The patient was brought to the procedure room and placed in the prone position with padding under the abdomen to reduce lumbar lordosis. Time out was taken. Monitors were placed. Patient was responsive throughout the procedure. The sacral region was prepped and draped in sterile fashion with Chloraprep. Skin and subcutaneous tissues were anesthetized with 4 mL of Lidocaine 2% through a 25G needle. A 22G spinal needle was then advanced under fluoroscopic guidance onto the sacral hiatus then advanced to the level of S3. Isovue 1mL was injected under live fluoroscopy which demonstrated appropriate epidural spread without vascular uptake. After confirmation of negative aspiration, 2mL of 2% PF lidocaine, 7mL of PF normal saline, and 10mg (10mg/1mL) of PF dexamethasone were injected. The needle was removed and a bandage applied. The patient was brought to the recovery area in stable condition and then monitored for an appropriate period of time. The patient was discharged home in good condition with post-procedure instructions. No apparent complications. Epidural injection procedure Physical Exam: vital signs Vital Signs 10/21/2022 8:41 EDT Heart Rate Monitored 86 bpm Respiratory Rate 14 br/min Systolic Blood Pressure 141 mmHg HI Diastolic Blood Pressure 93 mmHg HI SpO2 96 % 10/21/2022 8:00 EDT Heart Rate Monitored 82 bpm SpO2 95 % 10/21/2022 8:00 EDT Temperature Oral 36.5 DegC 10/21/2022 8:00 EDT Systolic Blood Pressure 132 mmHg Diastolic Blood Pressure 79 mmHg Mean Arterial Pressure, Monitered 97 mmHg 10/21/2022 7:59 EDT Respiratory Rate 14 br/min . [facility] Comment on above: Result Comment: Elec tronically Signed By: Kilo BARAJAS, Mark Ocasio.br\Date and Time Signed: 10/21/22 08:44 EDT Patient Correspondenceon Patient Correspondence [id number]#1.00CD:127 [facility] Patient Correspondence [id number]#1.00CD:127 [facility] Insurance Correspondence Off iceon 09-29-2022 Insurance Correspondence Office [id number]#1.00CD:127 [facility] Referrals Officeon Referrals Office [id number]#1.00CD:127 [facility] Consent for Treatmenton 09-08 Consent for Treatment [id number]#1.00CD:127 [facility] Consultation Noteon 09-25-19 Consultation Note Patient: JUAN SIMON MRN: [id number] Age: 67 years Sex: Male : 1955 Associated Diagnoses: None Author: Elenita Lazar PA-C Subjective Chief complaint 09/24/2022 13:38 EDT low back pain . Patient is a 67-year-old male. He has a past medical history significant for postlaminectomy syndrome, chronic pain, cervical stenosis, cervical neuritis, lumbar neuritis, imbalance and bilateral hand tingling. He has previously seen Dr. Mckinney. Surgery was recommended to him but he has some concerns because of some financial restraints. Patient states that he is falling more and more. He thinks he is going to get set up to see Dr. Mckinney again. He wonders if we could facilitate another referral. Patient is noticing a lot of lower back pain and right radiating leg pain that he states started over the last week or so. He states that things have gotten more intense since then. Patient underwent previous caudal epidural steroid injection done on 07/01/2022 that he initially was unsure if it helped because he had fallen but he realizes after recovering from the fall that he did get 60% relief up until recently. Over the last week or so has gone down to 50% relief and he would like to get set up to have it done once again. He is going to need to be able to help his more. She is having some injections by an orthopedic surgeon. For his pains and discomforts, patient uses gabapentin 300 mg 1 in the morning, 1 in the afternoon, and 2 at night as well as Flexeril. He tolerates them well. No side effects. He wonders about getting a prescription for a wheeled walker with a seat to help him get around better. Health Status Allergies: Allergic Reactions (Selected) Severity Not Documented Barley- No reactions were documented. Morphine- No reactions were documented. [place]- No reactions were documented. Wheat- No reactions were documented., Allergies (4) Active Reaction Barley None Documented morphine None Documented [place] None Documented Wheat None Documented Current medications: (Selected) Prescriptions Prescribed cyclobenzaprine 10 mg Tab: 10 mg = 1 tab(s), Oral, TID, PRN for spasm, # 270 tab(s), Refills(s) 0, Pharmacy: [facility] #[id number], 162, cm, 07/01/22 12:20:00 EST, Height/Length Dosing, 99, kg, 05/28/22 10:35:00 EST, Weight Dosing front wheeled walker: front wheeled walker, See Instructions, 1 EA, 0, front wheeled walker to be used for stablility Length of need: 99, Supply gabapentin 300 mg Cap: 600 mg = 2 cap(s), Oral, TID, X 30 day(s), # 180 cap(s), Refills(s) 2, Pharmacy: [facility] #[id number], 162, cm, 07/23/22 14:17:00 EDT, Height/Length Dosing, 122, kg, 07/23/22 14:17:00 EDT, Weight Dosing Documented Medications Documented Advair 500 mcg-50 mcg Powder: 2 puff(s), Inhalation, BID, Refill(s) 0 Celebrex: 100 mg, Oral, Daily, Refills(s) 0 Fiorinal 325 mg-50 mg-40 mg Cap: 2 cap(s), Oral, q6hr for pain, Refill(s) 0 Multi Vitamins oral tablet: 1 tab(s), Oral, Daily, Refill(s) 0 Multivitamin, Therapeutic w/ Minerals: 1 tab(s), Oral, Daily, 30 tab(s), Refill(s) 0 Oyster-D oral tablet: 1 tab(s), Oral, BID, Refill(s) 0 Pro-Air HFA CFC free 90 mcg/inh MDI: 1 puff(s), Inhalation, BID for wheezing, 8.5 gram, Refill(s) 0 atenolol: 25 mg, Oral, Daily, Refills(s) 0 divalproex sodium: 125 mg, Oral, Daily, Refills(s) 0 ibuprofen 200 mg Tab: 400 mg = 2 tab(s), Oral, q4hr, PRN for pain, # 120 tab(s), Refills(s) 0 montelukast 10 mg Tab: 10 mg = 1 tab(s), Oral, qPM, # 30 tab(s), Refills(s) 0 phentermine 37.5 mg Tab: take 1 tablet by mouth once daily Problem list: All Problems Celiac disease / SNOMED CT 8474718843 / Confirmed Cancer / SNOMED CT 230791358 / Confirmed T cell lymphoma-3 years ago Snoring / SNOMED CT 758001574 / Confirmed Acid reflux / SNOMED CT 757795684 / Confirmed Anemia / SNOMED CT 372750222 / Confirmed Rheumatoid arthritis / SNOMED CT 296195427 / Confirmed Osteoarthritis / SNOMED CT 9826949801 / Confirmed Lymphoma / SNOMED CT 790174301 / Confirmed Lumbar post-laminectomy syndrome / SNOMED CT 052600594 / Confirmed 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 CT 26257487 / Confirmed Chronic pain / SNOMED CT 650234053 / Confirmed Long-term current use of opiate analgesic drug / SNOMED CT 581161769955161 / Confirmed Added secondary to current Opioid Treatment Agreement Obesity / ICD-9-CM 278.00 / Possible Objective Vital Signs 09/24/2022 13:38 EDT Peripheral Pulse Rate 82 bpm Respiratory Rate 18 br/min Systolic Blood Pressure 164 mmHg HI Diastolic Blood Pressure 96 mmHg HI Mean Arterial Pressure, Cuff 119 mmHg General: Alert and oriented, No acute distress. Overweight Ambulating with a front wheeled walker Eye: Normal conjunctiva. HENT: Normocephalic, Normal hearing. Cardiovascular: No edema. Musculoskeletal Normal range of motion. Normal strength. Bilateral hip flexion as well as deltoid 4+ to 5 -/5 Integumentary: Warm, Dry, Pi (more content not included)... [facility] Comment on above: Result Comment: Elec tronically Signed By: Elenita Lazar PA-C\.br\Date and Time Signed: 09/24/22 14:21 EDT\.br\Electronically Co-Signed By: Kilo BARAJAS, Mark Khoury\.br\Date and Time Co-Signed: 10/21/22 14:06 EDT Office/Clinic Note-Physician on 09-24-2022 Office/Clinic Note-Physician [id number]#1.00CD:127 [facility] Patient Correspondenceon Patient Correspondence [id number]#1.00CD:127 [facility] Patient Correspondence [id number]#1.00CD:127 [facility] Patient History Officeon Patient History Office [id number]#1.00CD:127 [facility] Coding Summary.on 07-29-2022 Coding Summary. CD:[id number] Gh0bWw +PGhlYWQ+UE5GCMSeL34vcLEtu H4jX0IRLUiEQdvlQSHLJNkBZhI zzgAaPO9wgPYkWQUz IC8+RQ7mPTPjMiyuqDZgx7E6dX E5L50jwh9jBOddyFT2BVUxIzXz kinas4jpfEn9OAhyJtwnIwDi QEFwxX17IUX7cU24Tr55vGByeE Npk2wkeLo6BqDwNAUhPMG1rOby DMhcx3SbFCQoQ94yaGDii5A9 VVMvnDakkOCsCwHeyQB5gJ5yNT yjsrwzm2irsapeHrt1sm21iGCw s8Z0aFK1V9KqwxM8HSGwqQXu ZfqvfSKDnQ1yyquvt3pkmdvwLu WxGMNhIFt1MXx0YSNnjSarAgOk XQ09CGI4PRDxvyFlZ9XeOCCr gVphLhA8i2V4Gt1UI6LAKixjA8 VNTUFSWTwvdGQ+GK97bp14Q0Fg TjauKjb8HGFfVRF2hTN2jO4j ALCoVHgyy4A1ePR4H9BalmAkrr 2kg0ezPRAyXEpaN42wuLTqq5U6 TGYzgDI3KYSxtDhiBwXzfN91 Oyc+IXVuzAxew4VnBmzsl0nbx4 rbaDj7LbmgZWBsscDxgRgeKEY0 s8BqWb3nKCFaiTU4yRN4zI2c DpDaCbN6NXjtN998TvAvtPOyDw zmI59rC9HphAC+GVVwHfs9TVJw sYinJG8qW1XqJQUopjlsqMAc pCrkVS8bTUXzwdldPAWcxU8iCO AyN5o9SjSrDjE4NQhkB8YgMTLv fcilEy79eE3mFmRkPnR7YCpq P8CxksY9FRDwmVRvPFsmXDI1C1 1sp2R8TYZaWXHuBUJ1fNM5qE8m bGlnbjogbGVmdDsgdmVydGlj QHfkZMksZ005YLQuzTstWcWnGF luZyBEYXRlOiAgMDMvMjEvMjAy MzwvdGQ+MDQoLRV6cRoqDMAr zJNcRYfrRj2ayDrncFwqTR7aAB LxiqikXVTuaB0rLPLwxCMekRkf CT3rSWNppwxcs027ZuRjDVO2 DLYqaVBkE2GpfF8fTgWmTUPhVA MjK7UvtHHcJOjaD219RVrmJzM2 KYIpsxRwL7MbQCBbqOssUxG1 o3X1Sx6Jc0LjxoldZ5VpwHBqNn JjIaykQJm0R4MvUiieuEK+PC90 SUVoML96ONw7XBY4sNmzHXso HMKiZ7WcuG9vFgHtYVXzGWTtGo c+PHRhYmxlIHdpZHRoPScxMDAl JwNktFvkEF3tVd3dIIAeQPZq gZebvEWhCqGrl3tdAVDfOJbbDA 1rgNkzK4LonNW4QLJtf3e9Ml82 Y42kW0HigHW+CJGrwQE6hIZ9 wT0mDvWqYiM4ZIqlP077AiHpaA JkGoxnc2meb1iynBq1DkR9KYNw dgKowWnnCXF1k0UhEh14W04r IHdpZHRoPSIxNSUiIHZhbGlnbj 1cdN2jDu4+DWHuxFD1lUL5sL6v CiGsCuL6UVhtS121GmNdfXDz Avcss5zgr0bupVj5BmEzMNOkbv VcsMsbDAX0q0LwHc03L7TntCfk f8HzAbq5ji76lRAkd2Y1kVZ2 W3DfJZQbldhovOIlcNguWV6jVF UeakzqOQPfcN6sZJNeM2z1KwKf GvL2IJdeB9UvluJ8XJHboDIn EJOmsRUJgS1scmxvc1kezhfsPx LyIVUjKJs6SDe4UCReoSwmFwFv XZA1SbG0QAE9kPGjzI9tkVva mirsbR4cVab+VIK5uAFtpUPFMO 1lOjwvdGQ+XSZcQHU5iTwsYZyr KDBrsJ6dRDGfR0l8NnGrVtA2 GJrhP2PcswT9EWLoqWFfPDJmyY BFbH5ltctsk8oubbwoMrUdYBXa JIg7BJa8REIjdWqrCbFfLWU2 CkK3CGM1fSZkhR3icCkevwqrlX 9wOyc+EsbglPzgYAM4EPe9B7Cv Ddn6OGJjcJxxSD1vnDDaBErt Kx0kkChavUnwTO6aBBYsjkjxi1 50NqRdv2piOIJotFZrLJcqGNR8 X68fx3Z8HGNzZKJgRIF9jSF7 oU1wgKlmjbkbpGCzeGyfcsEaoD hsZVclVQwaY470PFKhbCocSpGa BZc1J2FoHip1NNSnfGwlHQ8i ePQeUQwaIg5dhUztbNajQO6gPV Xfiyyek820RcGhy5jyCLUabHVq MHgvXQT6I67uk4D6WDSnXUDl NDA1nMM2yM6ieQfsvedbsHKyxU njwmLpbMjkWFwbWNghC608TSCd mBxuJoVgcOx7B3XmCpm3JPUa qSczKP6gbJFxMOwrOm9rxLzcoD fhQY7vRQRcundqp046RlTbr0ch SKMqlUDcZIcbFHI3J57nw9X4 PIGqIPKhRBG3dDG4mS1dlFokui ogbGVmdDsgdmVydGljYWwtYWxp G243YDZfoPczEqHvrQoabgGp NNkwVKj7C0TdWgcncDG+PC90YW XlKX03vQYelBUvb5srlTi6MiSh DKQtJJX7cMubYBruq9RmYWEg K33svIYxq8M4ZOOntVruoATfMw VtbFV4pG6fEGwdwawyx7noggiw Uhnnd0pfir00uL92D47qUMao QAZvVMHgYLNuUKSzrDxurp9qmT 9wIi8+UWMurQO1xUW0lP4nQTVd NoT2CTwyM532ZaRbwWVgHjii h1dba1ihhSi3CuL9CAEhndJqeH xdQTD6b6EtRf99I18gAVpoRARn WNZoKPZbSRJyoEwxsj6rgR0o Ii8+POBnuVP8mGC5yV6rNkMxTx W1AUdqB830NoFmzNJoYyxwW82r S2GahON+QWYqInj1QSRdhNxx IK8fxRLwPNtbHv9fALZ8ZyPoFp TiHLazG6AaPCJzthjhpacibQZ7 LRUhFZMusI10Bn4aoCueGCLh bHBJpU1hhgkpb5icyjuoOhCyMK CwJXv3NQf1SHBehMxpSdLsNOR2 CkR0DKD2xNOgeN3klPrhbzpw fE4gR1NlAFUmjsykPc81dZ6oWj MaNkU8YXmgHtk+RQVND46DZ8PR CLNQQWCTFIKDIRy1L5WcDrp1 QJTsySrhLT2eeBZmSGsnEt3ivR vyfOvrNY3pGDBnxegmIVDadQ2z KYWwdQXcnRhnWT4cKYOnxhuv y894FkKxSGL8HHJwaTTsZ0JucJ 6iHvSsSTKmCQXqD3VgvAMkUUxm Y756DBtuFnA6FKLypoTfE3Wd XIGxjKdgLmT0f5U2Dd8yYk0bRd 6gKNF4BE72XX85aEMll6R7rMN8 F9NfOYGrzcouuwsxbWH1VCEw IRZmhR41aNKpEXlnNl9cr5R6d6 33LZCsZXHqkF24To9rhOujGOIa nDXWiV8ibchbj7ngxsufLbOh NOSxYVq0WNz1BMPfpVluWiOoFS M9TqQ4FTN6kOQrmZ2drOjrwnyj xJ3fYly+NbCtFZRwtkF9J7Qo Aey0CRGxnNrzTZ7xlTUhERobFi 5uhTfabGsqXU8fVURpqthtSCIg aP9oZOHoiRDetVcjIQ0iLGUp zjfad894MrTjAPY4SJVcpTIrL3 ZuuO7sJuGuFJPsMMZwK3AwtOSg OTeoH932FHqpHqM3AMRhvmHv C7YsAEIkbFviLkP1s6V5Gv0QIM sbWH53BM21hHYcn9P2yYA9U1Xh FRLixbdtbnzkuFJ7WVKuMEOh dI39bOSwRKsvWv3uc8L0i208KQ CkMGPjdO87Sh0jfSbdJQTvoSBM zI5zpzvij4pcflrnNjRtOEIg WSr1YKd9KJPatFdvMnPqANR0Cx N9DHZ3oNKaaY8uoAsuxhkrsP1w Oyc+PFHrunOIJP0yH7NbDV73 FC59IM21I0FhZcysvLZedGY+PH RhYmxlIHdpZHRoPScxMDAlJyBz qCqsAV8lAy3lPDFjEIRacKxd yIYpYqRaj9uvZABaABdmJD8fhX oqM6WvqLB7IRHjj5u9Ru98O77i U1AanZQ+UHTgvHY5pGA8xK5j YjKhBeX8YDxrH034OmHldGKbAa owe3vlc9botDc6VqVuPVFsqiMf gQpgXJS5n0GnKt17Y39zNOte GVZtDSQyFFCrCUGbgIenmq9yvK 9wIi8+BJFumHI1uKI9rF2xMsVk EoM2KOmuN606LlNpgUElCupn T50sC6KswPP+VRBwWlw8MMDebW jbAA7kzWMuTMcbXw8gJHB8PrTh JvEyIZkpL4IkMOTzwxqmruzs xCV1GZBaFYGcjM53Wm9wtIbhUw 2tALWlPNW7MLQixRVwE6GzoN6m JsIpKERlUCYdI0UmmCXgPHgi H113WBvpUvK4UOOkxuCqA6WwUB HccWqkUpL4f5P6Ns4RrSjobHTa CZ2qUzDhCHg9U1VrGwd4XRTb bReqON5pqJJlVBsrZi2rtAxneJ rkBW8bWAWnenggr201AcMos9rh BUAvlIVaWQkaFRA5V52qr5N4 ARIxORHpVDE9uNH8lI3atSiksy ogbGVmdDsgdmVydGljYWwtYWxp Y360MQCfuJvlGiWHZxc9F9Nb Fqc7ZAMmxDoaMJ5nvYBcRGvzRo 0jkMxeoQzgOS5qHTKflsaup646 AgUyt8gwNVTnsFBvTCsuAQJ1 M26fi9T6CWRbNNPcLSU3iRV4wF 1hbGlnbjogbGVmdDsgdmVydGlj DHfeROmtP789DEXfnVihJk8O Lxc9K3CuHyl2XACttRujJA3obF BkBDxsLf2vyYablAtpWT5sEZCx sbddy282PkOll2heXQXpgXFq XOzkVUU3X96zc3D0DHEiGJOqAY D4cDX9gB2jcSqqkbqcnVAjiUeh weXifGiuVWfuYAiqR139VFQh cDsnPlBheWVyOjwvdGQ+PC90cj 48N8LbXezdIjq9LJSoUUV1aTL7 vU4vMKWuVKers2J3dIB7X9Pi cmRl (more content not included)... [facility] Consent for Treatmenton 07-09 Consent for Treatment [id number]#[id number]:127 [facility] Consultation Noteon 07-24-19 Consultation Note Patient: JUAN SIMON Age: 67 years Sex: Male : 1955 Associated Diagnoses: None Author: Elenita Lazar PA-C Subjective Chief complaint 07/23/2022 14:03 EDT low back pain . Patient is a 67-year-old male. He has a past medical history significant for postlaminectomy syndrome, chronic pain, cervical stenosis, cervical neuritis, lumbar neuritis, imbalance and bilateral hand tingling. He has previously seen Dr. Mckinney. Surgery was recommended to him but he has some concerns because of some financial restraints. He is thinking more and more about pursuing the surgery. He is aware that some of his symptoms are coming from this. Patient underwent recent caudal epidural steroid injection done on 07/01/2022 that he is unsure how much relief he got from because he fell not long after the injection. He has mid back pain as well as lower back pain and leg pain that he rates a 7/10. Prior to that patient underwent a cervical epidural steroid injection?C7-T1 done on 04/08/2022 that unfortunate, did not give him any relief. For his pains and discomforts, patient uses gabapentin 300 mg 1 in the morning, 1 in the afternoon, and 2 at night as well as Flexeril. He tolerates these and they help him. We had previously discussed increasing the gabapentin and he did not want to but now he thinks that he would like to. Health Status Allergies: Allergic Reactions (Selected) Severity Not Documented Barley- No reactions were documented. Morphine- No reactions were documented. [place]- No reactions were documented. Wheat- No reactions were documented., Allergies (4) Active Reaction Barley None Documented morphine None Documented [place] None Documented Wheat None Documented Current medications: (Selected) Prescriptions Prescribed cyclobenzaprine 10 mg Tab: 10 mg = 1 tab(s), Oral, TID, PRN for spasm, # 270 tab(s), Refills(s) 0, Pharmacy: [id number], 162, cm, 07/01/22 12:20:00 EST, Height/Length Dosing, 99, kg, 05/28/22 10:35:00 EST, Weight Dosing front wheeled walker: front wheeled walker, See Instructions, 1 EA, 0, front wheeled walker to be used for stablility Length of need: 99, Supply gabapentin 300 mg Cap: 300 mg = 1 cap(s), Oral, QID, X 30 day(s), # 120 cap(s), Refills(s) 0, Pharmacy: [facility] #[id number], 162, cm, 07/01/22 12:20:00 EST, Height/Length Dosing, 99, kg, 05/28/22 10:35:00 EST, Weight Dosing Documented Medications Documented Advair 500 mcg-50 mcg Powder: 2 puff(s), Inhalation, BID, Refill(s) 0 Celebrex: 100 mg, Oral, Daily, Refills(s) 0 Fiorinal 325 mg-50 mg-40 mg Cap: 2 cap(s), Oral, q6hr for pain, Refill(s) 0 Multi Vitamins oral tablet: 1 tab(s), Oral, Daily, Refill(s) 0 Multivitamin, Therapeutic w/ Minerals: 1 tab(s), Oral, Daily, 30 tab(s), Refill(s) 0 Oyster-D oral tablet: 1 tab(s), Oral, BID, Refill(s) 0 Pro-Air HFA CFC free 90 mcg/inh MDI: 1 puff(s), Inhalation, BID for wheezing, 8.5 gram, Refill(s) 0 atenolol: 25 mg, Oral, Daily, Refills(s) 0 divalproex sodium: 125 mg, Oral, Daily, Refills(s) 0 ibuprofen 200 mg Tab: 400 mg = 2 tab(s), Oral, q4hr, PRN for pain, # 120 tab(s), Refills(s) 0 montelukast 10 mg Tab: 10 mg = 1 tab(s), Oral, qPM, # 30 tab(s), Refills(s) 0 Problem list: All Problems Celiac disease / SNOMED CT 8067836704 / Confirmed Cancer / SNOMED CT 169376312 / Confirmed T cell lymphoma-3 years ago Snoring / SNOMED CT 764801439 / Confirmed Acid reflux / SNOMED CT 771942408 / Confirmed Anemia / SNOMED CT 604057316 / Confirmed Rheumatoid arthritis / SNOMED CT 090607861 / Confirmed Osteoarthritis / SNOMED CT 4319717439 / Confirmed Lymphoma / SNOMED CT 068790167 / Confirmed Lumbar post-laminectomy syndrome / SNOMED CT 620323456 / Confirmed 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 CT 45088290 / Confirmed Chronic pain / SNOMED CT 153550223 / Confirmed Long-term current use of opiate analgesic drug / SNOMED CT 166559669032873 / Confirmed Added secondary to current Opioid Treatment Agreement Obesity / ICD-9-CM 278.00 / Possible Objective Vital Signs 07/23/2022 14:03 EDT Peripheral Pulse Rate 97 bpm Respiratory Rate 18 br/min Systolic Blood Pressure 125 mmHg Diastolic Blood Pressure 84 mmHg Mean Arterial Pressure, Cuff 98 mmHg General: Alert and oriented, No acute distress. Overweight ambulating with a walker Eye: Normal conjunctiva. HENT: Normocephalic, Normal hearing. Cardiovascular: No edema. Musculoskeletal Normal range of motion. Normal strength. Bilateral hip flexion as well as deltoid 4+ to 5 -/5 Integumentary: Warm, Dry, [place]. Injection site well-healed Neurologic: Alert, Oriented. Psychiatric: Cooperative, Appropriate mood & affect. Results Review Cervical MRI scan. 02/18/2022 [facility]. C4-5 moderate spondylosis with mild crowding of the spinal cord. C5-6 spondylosis with mild to moderate crowding of the spinal cord. C6-7 mild to moderate (more content not included)... [facility] Comment on above: Result Comment: Elec tronically Signed By: Elenita Lazar PA-C\.br\Date and Time Signed: 07/23/22 14:29 EDT\.br\Electronically Co-Signed By: Mark Boateng MD\.br\Date and Time Co-Signed: 08/19/22 15:59 EDT Office/Clinic Note-Physician on 07-23-2022 Office/Clinic Note-Physician [id number]#1.00CD:127 [facility] Patient Correspondenceon Patient Correspondence [id number]#1.00CD:127 [facility] Patient History Officeon Patient History Office [id number]#1.00CD:127 [facility] Coding Summary.on 07-03-2022 Coding Summary. CD:[id number]:[id number] Gh0bWw +PGhlYWQ+OY4YZHWuX93cbRFcg A5KM6kJEL9GKDXBLALURL8RLQ9 mgLN0GBkyA2IjcaVx CyhobQBpXV17REj3KDL2aQpzDX rnfY4gbBEiU1a9QbWiZU68jF78 YVxzBQApVxV0HjUygjagvYUh Y3zoEnQzbPYiZpi+PHRhYmxlIH xjITMsRWpnZLUlRzIvpRdaVO3r Ib6kLCXeSKKxyIslpETmEoAq j9yvRNGqMUlsZO2hlZmpA3XoiS H7EGFal1r5Ix89oTK+PHRkIHN0 xVuaJDuao681UiBnb9gnCWO9 eNNiNEcsMYM7V17ay6A2EQLoGB ZmNEA0fVC9aN0jxDnmcckhP9Lb fSRcNiK5GAU6rFDnqF1fnDdu ywsumF3wCuh+K72FFY1WCDGXAB 4AKbz3P9JgYfqilAU+ET03OOOu XK70jYCduWNuq6wooLm5LeHh WZPwQNX9eLtgMIozi1QqGTSpV7 8oxYDec9C1XMOcfObgiSKlXwVw bLG8lF6jAHmfgajgn9uepxpj Qvapb8kyxx36fG03U36kZDcjPB KaTSU5BOSrBOJyjOxppm8wuG6u Ii8+CJjzx5qgi5whmNm8LuGp PKXynyZxmLydKIZ3t7EyDq96Y6 VuuGkdm6FsHfg8vp53cBLjf4J9 tGL0QNfzUBKiaC0nRSylZzE9 VUXdCrKnxE17uWYmRNvzAb3cjN wzsArpNJ5cXLGnmwemGQSvjL4j IQJquFKfcGmmAD8lJCHfxbwy m465QdUhDAQ2EMYkiEEfH8YwkJ 6iCtYrXIAnBYMiJ7TuoJIqFTid F224SUgpJuN5WNJzdjEhG2Zf GHJojQmrRqY6b4J0Ok4Hi4Xyob faPWH8FVoiPHSvOjKfSxHwDaR4 F2PwHiv7WYIbwBhiNO7tF0Ec YHJjmpgywsdxaPA2LOKrLAUciR 52fCWoAIcrLr3we3R1t043OGWl LWIqzE05Zh9kbOzkLXHhfWML jJ8bvcvih0kbpvrtDpKrROAbEB j8EYd9RBYwhDrdOaUfQBN1YdW2 CVZ1nSUfiI4jiAmmjylwtD2e Oyc+R81srR2cYRL9MHD8bnuoRJ UhqwPbKX64TY36Q7JcHhsmpQOb bGU+ZEAupwQhoZzeXW6dAuYv m2lzk8ZwZRsbJ4ClBXAbYDplNc n7MIBbBMK6sXD4eB8jDDPfNHmo a1O4bPB8V8AvcaTqkr2xf1uy ETTfIWibT80edFRpy1B2RWStwJ P0IIUdxEgqLkVqlB88Tkq+PGNv iIahd3TuEazlm7acx6yzeCh7 JzYhLCOzkoMmqShpJTK1h1FpWh 03U87xVPfeGSQtICTtFKYtKHAk lYnfyx1rkE3rLp8+PGNvbCB3 dRQ9cQ3jJTErNeK5WCrxY285Mh JguKBdLfume3khx7dgaDn3IjGf OJYhbiXyxOsxQYI3s0HaOe70 O37iRGkjTMAcKZRhQFHxGKJuzA midf4yaQ8yEj1+NV2sn0cavr52 fC32sHF+QQRwQQT9xHpyXYoe FEIjcL0vJRtpJkI4KJZgIgShkR 84dLCyCJehXw7euDxrdHeuAA7y YVPfkmlyw002VbUbp3xmBGLh oBAuLXpwYRP5T54uh9A8QAIzPG FbEWW9yAK8nC4uyJtbwmsbvYOj mQhezyNndPiyAYerPBfhO626 IHRvcDsnPlBhdGllbnQgTmFtZT a6T7WcCwi5ARLegGytXE3hsONs SIgcEj3gkSlstNlxDQ1tIKQw fgjni296RaYmv6mfBJPtzZCiXA rfXHN3H63kq9E1USGmRUYqCQG0 zKY3iA6xmDoauxmolCPxlOxi atFyqPiiJCztFOasU712JLXzyY veOxLaznQvQWUzqHS6CW52XQ00 iOXjg6X5sCP7A5FoZFBbgitc wengfPA1KZEfAHGbtM63Tl7ebF ysEb8wKNLlIST1YGMwoBObR6Bz aQ3aGaDxGGOrKTEmR8ManUVp VAnfM006VWvmPuW7KXQvwpHtX1 BiLLVyoCdcHwF1n9C9Ex0DV7Y5 OM04AI39hCBft7K2cIA7D0Ot VIDwggjmlcucsTK6EOSuNEQpoD 52Gk3qmUkpNu2oCSCoKFC3PDVb tEAlH4JmkQ8gXpDuSPNyRANj L1NlhZGsUFmlX301FKeaUtQ2TP HydhPuC8NuDOMzcJibIwS3a2V5 Ny6IYDs8VM09FL89qMUal0E2 gHO4H2AkHFBgfwdwyytpgMB0WL MmJZMlnZ61Jq5niUaiHn3zUKYs SPU6JZBjyLTuV1YguF8uBbEl JTEgKVFtW2FnqNNvQVteK579CB kaHiJ4DVFzkpEqH5JdQDWqzXrz KcK1b8F6Db8TJCZyCI68PKU9 wLR8YO34XR84Q7JeAaqbrGLfuS U+PHRhYmxlIHdpZHRoPScxMDAl YeLoeZvgQT6mQr3pVSPaLGZb mFnazYRtVcFke1igROUuWTxhOZ 3kiEqwC1SscTI2SOSpr0b1Tw92 O84xY1GkdFS+VNLlmHW2gHQ0 zF5qRsNzTtE2WLpsB815IxTtwZ OvEsetv6kqx2vqpId2DwP4YDKf kpVxjSflGBX0h5KuKd43C43s IHdpZHRoPSIxNSUiIHZhbGlnbj 3azP7hAr6+ZSBbhLV0lOW9kM4r VwRsLnZ9PZlfG144UxCnhFBv Vepjy4lem2uhsYb4GsLtVPObwa ZzlJbvPNM5h1JlXs79M9RxhMny v8ClEoy6qt79eKLgq3N1nZB9 X5JiOXIfgnymvQMpcQygSS0mEL RtraloCYMyuZ3dBRZwX8y3CcJz DnF1FUkrW5TvkhY8HLZwsKPd RZkjGMZ5X68qv4W3UGRiMLKkFA B6lNP0aS5ocYqjuyiiqBJabRjw hcPgvFshDPqiRXkbV283LIHt zOzeGAQcxA2vWSOvbFRuxJqsIM 9wWAFggxlwNc9QXO2EBJoDREqp U6uVJycQOcMZYI81RZ27zATj y8Y7dVQ3C7NdHOHjuuwzmbmxjX Y2SYAxBRYhqN40bZChCLtoZl1g y4J2s514RYHrDFVwnW20Wn0j oOmbONKkzKUZkS4avtgqo7ofjq isSqPfLQCiVFk5OPo5DDVkhNjh LkJfWRG4QvJ4UTA8lTSxyY2w kNljbyjrxX8aGqw+MDIvMjYvMT h1WdohsYC+YLDpNOS7qMncGXvs PDZcpC0mOMXsC8e1VzRsPaH7 QPwwD2TmIRKxngkvPo18wG0uYm BfOgJ0ZRjeF3SfasG2BOLgpKKt JFhdUQW2R66mv6B7DZZjSUBn COD5fEU7gF2lpUcpgypycTBedF ykcaVloQijNXitVYmzT683AGBe xMxsTaL9XBwjMMAlWI98WF88 iMRkp6N2aID9W2SaVFPfzrtzcz ssxPU9ERNkBRIisM56rPPzBTcc Qy0ml0Y8x029CUUbWPEpvC76 Gp6wqFleDJTrqGZBdX4lfjjzo5 wzjleiQcPbXSCmKBz6QPh6ORGd hCvvJgTgUGM0IjP5XFI4uXTt fL8iyCiwngbmbL7xXbh+TWFsZT wvdGQ+YDApUGW8nWcdALmiQGXc yL0iGLTdH2p7GnTpVfU2IIom X6IeLUZcmczzJs12nY6sJsYoMf W4IDtlF1RkeqG7XGKyvRFiLEwo SOG5V49ty6K8LUIjSTTrSKZ7 xEL4uM9dtWaxdryljMNwxDcfoi VmuBghAHxtRWzkY573TWHylSvb FdOdsN0oPLBhOWmfuAXllNlj dGQ+XA00dy85J7DmRdvxQyl5MF IxKTM5wSC2vS2fZNYvEWoha1U0 tXO8V3IskmLtei0bm6mtKZYc KCzvA70rvVGyg0O0ZORksPH0LJ NtlKecYhKldV87Hsn+PGNvbGdy w2WmCgazw2pyy9ppsDm1DbFn EAPcvpPwoWutURG2m4YoDp22A8 9sIHdpZHRoPSIzMCUiIHZhbGln ao8mmD8gWp2+IGMxnTJ0kGF4 qE1gXbNaGmM3GTutS771LhOopE JoGkqcg5tst0fazFu2ZrQsJMUc njHihAgpSET5x8KhGx96R5Kp iBcvc0ZtUrr9uf35kEDtj3H9qT N6Q6NkMWPmielcnUSzmXoqSW2u CLQaxoliZQIxrL4xUJGyC3s9 KiEpWtL3RLqkJ0XksvI1RPGzyN SdVUDplLJKfF9tqchai8zhzvet WpLrBSCwEZc1XOt9PUZrlEcd KrKvHJE4RcN5XBY9mBZdjC1mkR zjqambsW9vPyd+URq8m5xfcMQp KX1xxOG7HZ17UA32hRZnn7H3 gEL8H6KzERKhdqlyvwrubCZ2IU AlZIOiuI36Gf6hkHagPt9tCCIs WWA0YOEftABuQ8UseO4gIpGs PJNaVBFuH6YxvQGeGXsyA315GD dyMjZ6EDZizjRmX4SmMYZxfNvm NqO9h1B3Nj2BZU28XV59NY93 fYAun1D3vSJ5L9OuYSTjrehhkf cqrMZ8GGYiMMBimR65Nv2kkYgp Mc6oDGXbDVO6VTBsuNHuV5Xo lK2jWpNwZMNqFXFcN9OnpDMiIB fuP503FPkmYdO2USJxiwGaL6Ys HHZvgAnwRvW1h4S5Om6LUa48 ZJ35NQ05bXEff1A1yWL2F7OmUB WrruurvffcxRK6ZDUhXOGoeE46 Rl3vdQjeNd5aTOLcVAB5HNQy sYPuR5RuqK6bDxVvKEDfKOPvY3 RbfALoCJtzA213KYfsCkR6WUBd tzSeV7DoIJHrpMykIgW3c4G2 Yo4XOZvster5H5KfSyljwNG+PC 88XTViWB86jMWgqXPky7hydRq6 HfTyKUPbILB3lAwwQOuzb5Wg ZXIt (more content not included)... [facility] Consent for Procedure/Surger yon 07-01-2022 Consent for Procedure/Surgery [id number]#1.00CD:127 [facility] Consent for Treatmenton 06-12 Consent for Treatment [id number]#1.00CD:127 [facility] Discharge Instructionson Discharge Instructions [id number]#1.00CD:127 [facility] IntraOperative Documentson 0 07-01-2022 IntraOperative Documents [id number]#1.00CD:127 [facility] Main OR Intraoperative Recor don 07-01-2022 Main OR Intraoperative Record IntraOp Document Type FTPM Summary Primary Physician: Mark Boateng MD Finalized Date/Time: 07/01/22 12:45:24 Pt. Name: JUAN SIMON/Sex: 1955 Male Med Rec #: [id number] Physician: Mark Boateng MD Financial #: [id number] Pt. Type: P Room/Bed: / Admit/Disch: 07/01/22 11:44:12 - Institution: Case Times FTPM Entry 1 Patient Times In Room 07/01/22 12:39:00 Out Room 07/01/22 12:45:00 Procedure Times Start 07/01/22 12:42:00 Stop 07/01/22 12:44:00 Anesthesia Times Last Modified By: Aracelis Bailey RN 07/01/22 12:45:18 Case Attendance FTPM Entry 1 Entry 2 Entry 3 Case Attendee Kilo BARAJAS, Aracelis Kimball RN, RN, Valeria Flores Role Performed Surgeon - Primary Forest Fire Officer - Primary Scrub - Primary Time In 07/01/22 12:39:00 07/01/22 12:39:00 07/01/22 12:39:00 Time Out 07/01/22 12:45:00 07/01/22 12:45:00 07/01/22 12:45:00 Procedure CAUDAL EPIDURAL STEROID CAUDAL EPIDURAL STEROID CAUDAL EPIDURAL STEROID INJECTION(.) INJECTION(.) INJECTION(.) Comments Last Modified By: Aracelis Bailey RN, RN, Madison A Pritchard RN, Madison A 07/01/22 12:45:19 07/01/22 12:45:19 07/01/22 12:45:19 Entry 4 Case Attendee Javier Virgen Role Performed Support Clerk Time In 07/01/22 12:39:00 Time Out 07/01/22 12:45:00 Procedure CAUDAL EPIDURAL STEROID INJECTION(.) Comments Last Modified By: Aracelis Bailey RN 07/01/22 12:45:19 Perioperative Protocols FTPM Pre-Care Text: Implements protective measures prior to operative or invasive procedure, confirms identity before the operative or invasive procedure, verifies operative procedure, surgical site, and laterality Entry 1 Procedure(s) CAUDAL EPIDURAL STEROID Patient Identity Birthday, ID Band INJECTION(.) Verified (select at Check, Patient least 2): Participation Consents / H and P HandP, Surgery/Procedure Operative Site Present Verified Consent Marking Verified Surgical Site Yes Laterality Verified Yes Verified Procedure Verified Yes Correct Patient Yes Position Verified Availability Equipment, Medication, Prep Dry Yes Verified (If X-ray Applicable) PreOp Antibiotic No Time Out Aracelis Bailey RN, Myers RN, Kilo Tran MD, Promise Heard Bryce Time Out Complete 07/01/22 12:40:00 Outcomes Met? Yes Last Modified By: Aracelis Bailey RN 07/01/22 12:40:16 Post-Care Text: The patient is free from signs and symptoms of injury caused by extraneous objects Allergy Information FTPM Pre-Care Text: Verifies allergies Entry 1 Allergies Reviewed? Yes Allergies Reviewed Self/Patient With Outcomes Met? Yes Last Modified By: Aracelis Bailey RN 07/01/22 12:38:45 Post-Care Text: The patient received appropriate medication(s) safely administered during the perioperative period Surgical Procedures FTPM Entry 1 Procedure Description Procedure CAUDAL EPIDURAL STEROID Modifiers . INJECTION Surgeon Description CAUDAL MOLLY Primary Procedure Yes Primary Surgeon Mark Boateng MD Start 07/01/22 12:42:00 Stop 07/01/22 12:44:00 Anesthesia Type None Surgical Service Pain Management Wound Class 1 - Clean Last Modified By: Aracelis Bailey RN 07/01/22 12:45:20 General Case Data FTPM Pre-Care Text: Classifies surgical wound, implements aseptic technique, initiates traffic control Entry 1 Case Information OR Pain Proc Room Case Level Level 2 Wound Class 1 - Clean Specialty Pain Management Preop Diagnosis M96.1 Postop Same As Preop Yes Postop Diagnosis M96.1 Outcomes Met? Yes Last Modified By: Aracelis Bailey RN 07/01/22 12:40:29 Post-Care Text: The patient is free from signs and symptoms of infection Skin Assessment (Pre Procedure) FTPM Pre-Care Text: Implements protective measures to prevent skin/ tissue injury due to thermal or mechanical sources Evaluates for signs and symptoms of physical injury to skin and tissue Entry 1 Skin Integrity Intact, [place], Warm, and Skin Abnormality No Dry Outcomes Met? Yes Last Modified By: Aracelis Bailey RN 07/01/22 12:38:54 Post-Care Text: The patient is free from signs and symptoms of injury caused by extraneous objects Patient Positioning FTPM Pre-Care Text: Identifies physical alterations that require additional precautions for procedure-specific positioning, verifies presence of prosthetics or corrective devices, positions the patient, evaluates the patient for signs and symptoms of injury as a result of positioning Entry 1 Procedure CAUDAL EPIDURAL STEROID Body Position Prone INJECTION(.) Feet Uncrossed? Yes Left Arm Position Resting at Side Right Arm Position Resting at Side Left Leg Position Extended Right Leg Position Extended Positioning Device Pillow Under Head Large, Safety Strap, Pillow Large Under Knees Press Points Checked Yes By Aracelis Bailey RN Outcomes Met? Yes La (more content not included)... [facility] Main OR Preoperative Recordo n 07-01-2022 Main OR Preoperative Record Holding Area Document Type FTPM Summary Primary Physician: Mark Boateng MD Finalized Date/Time: 07/01/22 12:25:32 Pt. Name: JUAN SIMON /Sex: 1955 Male Med Rec #: [id number] Physician: Mark Boateng MD Financial #: [id number] Pt. Type: P Room/Bed: / Admit/Disch: 07/01/22 11:44:12 - Institution: Case Times Holding FTPM Pre-Care Text: Verifies consent for planned procedure, identifies individual values and wishes concerning care, includes family members in perioperative teaching Secures patient's records' belongings, and valuables, maintains patient's dignity and privacy, and maintains patient confidentiality Entry 1 In Holding 07/01/22 12:23:00 Outcomes Met? Yes Last Modified By: Samantha Hsu RN 07/01/22 12:23:45 Post-Care Text: The patient participates in decisions affecting his or her perioperative plan of care The patient's right to privacy is maintained Surgery Checklist FTPM Entry 1 Patient Birthday, ID Band Procedure History and Physical, Identification: Check, Patient Verification: Surgical Consent, With Participation Patient NPO after Midnight: n/a Date/Time: 07/01/22 07:00:00 Personal Items: Cataract Lens Implant, Personal Items wedding band and watch Glasses, Jewelry Comment: Complaints of Pain: Yes Pain Comment: 7 lower back pain Operative Site Yes Marked By: operative site marked Marking: by Dr. Boateng Availability Equipment, X-Ray Verified: Does Patient Smoke No Patient states Yes Comment - Adult Precious- postop adult Supervision supervision available Case Cancelled in No Holding Area see comments below for reason Last Modified By: Samantha Hsu RN 07/01/22 12:25:29 General Comments: peanut butter sandwich, coffee and bannana Finalized By: Samantha Hsu RN Document Signatures Signed By: Samantha Hsu RN 07/01/22 12:25 [facility] Operative Reporton 3 Operative Report Patient: JUAN SIMON Age: 66 years Sex: Male : 1955 Associated Diagnoses: None Author: Mark Boateng MD Procedure Procedure: Caudal Epidural Steroid Injection with Fluoroscopic Guidance Diagnosis: Lumbar Post laminectomy syndrome Anesthesia: local The patient was identified in the pre-op area. The procedure, including risks benefits and alternatives was discussed with the patient. The patient agreed to proceed. Informed consent was obtained and the site(s) marked. The patient was brought to the procedure room and placed in the prone position with padding under the abdomen to reduce lumbar lordosis. Time out was taken. Monitors and sedation per anesthesia. Patient was responsive throughout the procedure. The sacral region was prepped and draped in sterile fashion with Chloraprep. Skin and subcutaneous tissues were anesthetized with 4 mL of Lidocaine 2% through a 25G needle. A 22G spinal needle was then advanced under fluoroscopic guidance onto the sacral hiatus then advanced to the level of S2. Isovue 1mL was injected under live fluoroscopy which demonstrated appropriate epidural spread without vascular uptake. After confirmation of negative aspiration, 2mL of 2% PF lidocaine, 7mL of PF normal saline, and 10mg of PF dexamethasone were injected. The needle was removed and a bandage applied. The patient was brought to the recovery area in stable condition and then monitored for an appropriate period of time. The patient was discharged home in good condition with post-procedure instructions. No apparent complications. Epidural injection procedure Physical Exam: vital signs Vital Signs 07/01/2022 12:41 EST Heart Rate Monitored 94 bpm Respiratory Rate 16 br/min Systolic Blood Pressure 149 mmHg HI Diastolic Blood Pressure 92 mmHg HI SpO2 93 % 07/01/2022 12:19 EST Heart Rate Monitored 94 bpm SpO2 95 % 07/01/2022 12:19 EST Temperature Axillary 36.7 DegC 07/01/2022 12:19 EST Systolic Blood Pressure 117 mmHg Diastolic Blood Pressure 75 mmHg Mean Arterial Pressure, Monitered 89 mmHg 07/01/2022 12:18 EST Respiratory Rate 18 br/min . [facility] Comment on above: Result Comment: Elec tronically Signed By: Mark Boateng MD\.br\Date and Time Signed: 07/01/22 12:45 EST Patient Correspondenceon Patient Correspondence [id number]#1.00CD:127 [facility] Insurance Correspondence Off iceon 06-12-2022 Insurance Correspondence Office [id number]#1.00CD:127 [facility] Coding Summary.on 06-06-2022 Coding Summary. CD:[id number] Gh0bWw +PGhlYWQ+FB6NBDFnO45dyTYat J4AR1dPXU3TDHIHCIISUR5WDQ9 hyRZ7PQfsC5HovjKj AccrfJSuUC65FHu9CFA5mSyoBH rdzI0bfZCiN7o1WzRrRM15nN55 XCcfMPPdNdW6NuDvhoshcZIa B7trTmBynMLnPkg+PHRhYmxlIH rxSEZbRPioDBVsZuJzqAmpVH5b Zq3xTOJfIWXwuTsolOAsNpRe l2ekMMShAStxCG8hpNysY2SdkK S6WBGsh4z8Af00vJM+PHRkIHN0 sAnrLUjwy572FtJyr9akUWO0 vNZqZQlgPMB4U28ue0V5HVFbCT HiQRV3pFX6rK2jpFvdwghiA2Jb uUXrBtL1QSG3gYZvaC2ebIdu wbqlnI6vAkh+J93ONE2HFGMFDP 4KEjy5N7NgCcenuNP+CU63KUBw FD96zLFvyYQbw4hjoNf9MlRa BTYtFMJ4rBpvFHqbf0IiPGFnX2 5ffARkh3U2DHUnaBuuyGHnPjIb jAL2jU8mEZsbubajj2iewhdg Tioro5dkij06nQ51Y97jFEnwYO LjGAU4PIHwHDKdqYimni6ixL5u Ii8+LYclj2lnb9wdvWc0QgRd URRbpgTjeHhsRRH5c6UrMy62U2 AzwZuxv1RnYbo7ox07cHZdh8R5 jNZ4PUblVGPzaP7hXOviVrH8 KDFkMzXwsF97tLDtYPsxTf2psM fbvSsxKS0aJNHcyhtoZZEbrE6l LIMnrFCsoPnsPX5iLJUatvkz j757LjFbLYJ0RIHpnHNbM5VorI 9tQfMjJHLnBOOzX8SbbNPsOLcf L384FWqrHlC9HHCeshKvW4Er BDCnmQcaJlQ6i2D7Ei3Ck5Qiyb qyXML5MGpsPXYmHlQ2XfArToS3 S8LqWqg2VEAyvOxxEC0xD8Lh ZHZjqujlofocyBY4BKUrKQSgjW 57hGQeNZquXt4vb8S6b830XQMf KIWmbR52Ig3awVyvFMEefYAG yN3gypjpf5hfyebsDvAwEVToXC i5CIi3SSVgmSuaMeCiZKY7XdG8 RXG5nLKztV0lrZlkuqkzlJ7j Oyc+I53qsT2rUDB5XPC0xwejLX NcsiClVJ14FE52X2LlFonnrDNp bGU+NQPylcAuuEanSV4cXbCo d7qtt1HkRTvqW0ZfABOsSXqrQf u7KAZpSTX8jIE0nY5cLLSuSJiu p7H0yLP3T4DompSdwa8um4xe HFSpUGqpW00auLRvb8F7WUZhyL H5AKRhcAfuGiGrgC24Ypx+PGNv cDzsc0JdBnbco7xmt6kffVv6 SmUiZAInedJlpVdyERZ2q8AuPv 81K22iOJkkEFXqOVEvAOVvMNTk qHnlzj4kiY4kIn7+PGNvbCB3 tMD8rX3aAXUuZsT0EMdqP760Nv ZbmDXgJzcjw5cxd9buqOt3EyOq QSSttaHkaKhwMPE0j2EwAa63 Y72oMHihRCEiCYDjJSHqJGKvaQ kfpl1znU5lMw8+WE8nw6rxbx79 uM50gDX+EMOoMHD9cPjzPAdh MGWcmY4eJCmdMiC9ULWzRpZnzH 19uASoRNghSf7dpUtesXwaET4q GTEqnminl532VxXeb0egTYFr rTOpARvbANZ4I37zh3V0QKSyAE IgZFU7rFJ9dP4hwIuuixujvNYo zFskxlOdsQzoWCcaMJffG051 IHRvcDsnPlBhdGllbnQgTmFtZT s3E8QxKqt4GYXmiRnnYQ0glBQs ADgxBd8qwKlckWjfZW4rAMDa rkeum089ZqVhz8zxDPMhzAOzDW hwPNE7Z11dp6S3NINpUCIyWCO1 fZY0oT3wlCzblsvniXCbgTzn liFerVuyTIeyXFyfQ194XKPdzM npAnLgnhXjKKEehMN8PG55EF59 iIMdi7J4oJA4A0EhGGMtlwri irgqwKI7BQVgGSTqpH66Hd6vnN fcUs6fCCNjRBO0CUVcdGJnZ5Fm uV2yBaApVONeODOrA1DqsSWw UAdzB992VLraOeW4ASDgxnQeK3 MvBVNucGqnUdV5j9V5Cd4ZN1G2 AK07JG82gSTzl3I8cWI0X5Fz BBOwoiikcuiauDT8ZYFiWDDoaE 25Mm2cdOxtVk2hHAWhEWP1POWe gGQyD7RriL3aZxLyWHTfQJLs B6RkeUWrTThoT597EOdyOgA1KG SougCyY6TrWPNadUnlWnR8e6B9 Yx4JFOd5SC87MF88vGLzb1C5 wWA3V2XlIDQbgdlijdiiyPN5SI FoWFQmqT21Nr9xiWrcCr0jWAKh GQX1DUXinSHdW7NpqI1jDlZj MUGwHACkX7EwbGRpKGexB493PR gwDsS3UOInylCzH2DaRFWonVag AlM0a4G4Xt7CMYLcNC64EKG8 lAV4GQ55LE05L4TeEwudyPDvhT U+PHRhYmxlIHdpZHRoPScxMDAl SeFzfBceRM7jIl2wMOWrHLOg tMttqWTiByVja4wwSGAbIOmyJY 3brWacO2QfbSJ2QVJqi3a6Kj31 W88xO3VarYU+LRHbgGR2dJA3 wW6jTtWuRfY6ZAtdZ448BkHpcI MwQcgoy0wrg6eleAr6JmA5BVFu rpStiLmxJXI2d0GcJq06S81b IHdpZHRoPSIxNSUiIHZhbGlnbj 9xlL8qQq5+QVSrjDN6sVS4mC8s IuVwHxO8IRhuS744EpOpzKDi Doxwl2wno7kevKw7CkWbJEYyai NrkTeoMTY5n1QlQu54H8ZlgWhi t8OlGcq8ob48qDFwy7X8bSX1 K7BeTEVlqvygaZHyfRerVN9tJP AkuoqoPARjvZ6tVBBmM6p8ClEb NoT0OJyfD7LsixI2SRJrfKUb DXqrFZD8B42st3H1OWTbYDLbVF P3rGX9bP3lfVwmvomdrLAseBwk ciMhfPqqSNifEFgkC816BHOu gSiaZBPznX9uDRIlcXQuiExrFS 5mESKvmtxdVi8YXB6VFFpGTIdf V7bOBcpWSxJIGN75VR61eKKe q4L1gMP9R2YlCQCqssjuwebdnS R5EPPaEOVyfF74qEEeJKqfLr5n s4V0o872QETbQHSteV24Hw9y lGlnTNSpsCCEeO2lecutf3omtp ftUeGcTUYkXPq6XPd4KLQakFqv ItMlFWM5TeH5JWL3fVWhoO9e fJvnimivzC0dAji+MDIvMjYvMT d3PtjxgOW+PGGdXGS8vSrpIGkb GHIpuH6oUJAcM2b8QaToDlT0 AHwlF1DxCJPxkjniHz96fA2oGe FxRmW5SQpeJ1DfmjI1NJRfwBTw HTnvTWB9V87eq5A4HWNeNGAb UWA2vSO7kA3dsQxaaktalFVliN aujoUddYtsJFnfTPxrI040FYDu kRboHiQ6CFngAEZyPA70LL11 zSPxp8A0iDS8H9FkCLRmvgojmq prlID5REPrTFXbvQ65hBGpVGhp Ig1rv8A0y679CZHzXBEffH96 Fm5diPebDLYmpQXWmB3jmcfwu7 ogfjmgXxTeLUEpTMq5RWo8DDLt vFgeDyFwOTW0HkN3QBG5xNAz kP1aqGjzfwgfpE6mPdg+TWFsZT wvdGQ+LBCgFXL4lWfePMduSJSl lQ1pAZSfJ7r6EdCaGyS7JQcy M9GuVMJufmjvEe90kL6dUaQrQg Q0CLldV4MkjxL8DMMcoHIsUPed KIZ3B36ut8H8WTGlCYXtZCF7 iIO1rL6nhByblurwrUBalSunkd IuaTjqQKclDQvbA433XACbdXbn MmApeZ2nGKCfBEamgJTbvCai dGQ+UW58ad05Y5EuQjeoBow4CQ UeQLF3bXN5fG3hJVTmKDqwe0A0 oAF5G6PuoiUfgy1ns7veUZYl BFlnJ59xdTKpq1Q9UJIuzBK6MD EwuUubUiUumE99Cpm+PGNvbGdy f3VaTwkkm3qxi2wboDh1VbMm TJCaidYrtKpnILG2g4YxGl78A9 9sIHdpZHRoPSIzMCUiIHZhbGln ux7jsX4sXb0+UGCrdPK2mGG3 eP6cNcGmInC8FVhnW712RzIwbA WkCnlgd0okc9oveOi7DbYhUTOb znCnnWrzJOH6p6IeLd68L8Bb pDfbl6JzOuw6ym43zDQjf8D1cX B7K9WmFACeqzrhhGMwjXfwHA1r WREobpduCEJixI3gWSOfW1j7 NwZoTuC9VLbhO0FpsbU1KKTflW LlAOKfyIAQiT1mannjx4epfmmg KpGdWIHzWUf7LXq3YCLyhHgp HcKkBCA2HwO8GVG2bEXakH4wmA qazujnqW4xIyl+ONh2y3xpgBSv KV5ttJQ2SR80LC71eNCnq8S5 hJG4R2ZrMIGgdmlltikeyZW3ZB NdHEKbtQ45Pi8pjLuqKt5sSSCd VOQ2IAVrdALrZ6LtrS0tTsCs IDQqDDIfM9LsjNZmTZjzG145IH wuQsF1KCVvgkMbP1OqPACpwEbs XyO6u6U4Qy6JYY40GW66OE95 kYFyw6D5pYT4L4NsXMLfidhqjy hkhSN9BFFeDZIebU18Eg1lyCvw Jd5hAEWzNMQ2MGMohAVbJ7Qw aQ6hCgYzMFJhVGNvK7BvaMJfAH itR716LMwkVmR0LWRhmjBjH1Ok ACUopOnbEpP4j7D9Xf6BJu74 RN94XM45cYWaf8X6rZH3Y7DbOX ZfwyynqgnydBL6DSLvKBJvrS03 Rl1znPblPe4tMDQdIPG6YBVt uHZbB3RbcV5jTxTkMGXfJZIyG6 TgzTKtGZnuU485WEegBbT8GEKq jfRoY8GzBYCwqTbtMwH3s6H5 Dw3ZYTbffdf5W0BlFolgiAM+PC 40JBJfIY33uPGonKQps7ylyIu2 SmEoQSShPJM3cNhaXDdhz1Nf ZXIt (more content not included)... [facility] Consent for Treatmenton 05-11 Consent for Treatment [id number]#1.00CD:127 [facility] Consultation Noteon 05-28-19 Consultation Note Patient: JUAN SIMON Age: 66 years Sex: Male : 1955 Associated Diagnoses: None Author: Elenita Lazar PA-C Subjective Chief complaint. Patient is a 66-year-old male. He has a past medical history significant for postlaminectomy syndrome, chronic pain, cervical stenosis, cervical neuritis, lumbar neuritis, and complaints of imbalance and bilateral hand tingling. He underwent a cervical epidural steroid injection?C7-T1 done on 04/08/2022 that unfortunate, did not give him any relief. Prior to that he underwent caudal epidural steroid injection done on 02/17/2022 that gave him 100% relief for 1 day but nothing more significant than that. He is very bothered by all of this. He rates his discomfort in his neck and headaches a 6/10 but in his lower back and legs a 7/10. Patient uses gabapentin 300 mg 1 in the morning, 1 in the afternoon, and 2 at night as well as Flexeril. He tolerates these and they help him. Unfortunately, not enough. He is very bothered by all of this. He wonders what his other options are. Health Status Allergies: Allergic Reactions (Selected) Severity Not Documented Barley- No reactions were documented. Morphine- No reactions were documented. Stratford- No reactions were documented. Wheat- No reactions were documented., Allergies (4) Active Reaction Barley None Documented morphine None Documented [place] None Documented Wheat None Documented Current medications: (Selected) Prescriptions Prescribed front wheeled walker: front wheeled walker, See Instructions, 1 EA, 0, front wheeled walker to be used for stablility Length of need: 99, Supply Documented Medications Documented Advair 500 mcg-50 mcg Powder: 2 puff(s), Inhalation, BID, Refill(s) 0 Celebrex: 100 mg, Oral, Daily, Refills(s) 0 Fiorinal 325 mg-50 mg-40 mg Cap: 2 cap(s), Oral, q6hr for pain, Refill(s) 0 Multi Vitamins oral tablet: 1 tab(s), Oral, Daily, Refill(s) 0 Multivitamin, Therapeutic w/ Minerals: 1 tab(s), Oral, Daily, 30 tab(s), Refill(s) 0 Oyster-D oral tablet: 1 tab(s), Oral, BID, Refill(s) 0 Pro-Air HFA CFC free 90 mcg/inh MDI: 1 puff(s), Inhalation, BID for wheezing, 8.5 gram, Refill(s) 0 atenolol: 25 mg, Oral, Daily, Refills(s) 0 divalproex sodium: 125 mg, Oral, Daily, Refills(s) 0 ibuprofen 200 mg Tab: 400 mg = 2 tab(s), Oral, q4hr, PRN for pain, # 120 tab(s), Refills(s) 0 montelukast 10 mg Tab: 10 mg = 1 tab(s), Oral, qPM, # 30 tab(s), Refills(s) 0 Problem list: All Problems Celiac disease / SNOMED CT 1289637688 / Confirmed Cancer / SNOMED CT 557779945 / Confirmed T cell lymphoma-3 years ago Snoring / SNOMED CT 456330799 / Confirmed Acid reflux / SNOMED CT 640808184 / Confirmed Anemia / SNOMED CT 900303869 / Confirmed Rheumatoid arthritis / SNOMED CT 957059882 / Confirmed Osteoarthritis / SNOMED CT 4641036274 / Confirmed Lymphoma / SNOMED CT 299426617 / Confirmed Lumbar post-laminectomy syndrome / SNOMED CT 032677514 / Confirmed 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 CT 00029616 / Confirmed Chronic pain / SNOMED CT 749922047 / Confirmed Long-term current use of opiate analgesic drug / SNOMED CT 288105720717546 / Confirmed Added secondary to current Opioid Treatment Agreement Obesity / ICD-9-CM 278.00 / Possible Objective Vital Signs 05/28/2022 10:29 EST Peripheral Pulse Rate 108 bpm HI Respiratory Rate 18 br/min Systolic Blood Pressure 125 mmHg Diastolic Blood Pressure 84 mmHg Mean Arterial Pressure, Cuff 98 mmHg General: Alert and oriented, No acute distress. Eye: Normal conjunctiva. HENT: Normocephalic, Normal hearing. Cardiovascular: No edema. Musculoskeletal Normal range of motion. Normal strength. Normal strength of lower extremities 5/5 Normal strength of the upper extremities?5/5 negative Nina's Integumentary: Warm, Dry, [place]. Neurologic: Alert, Oriented. Psychiatric: Cooperative, Appropriate mood & affect. Results Review Cervical MRI scan. [facility]. On a CD for review. C4-5 moderate spondylosis with mild crowding of the spinal cord. C5-6 spondylosis with mild to moderate crowding of the spinal cord. C6-7 mild to moderate crowding of the spinal cord. Greatest at the C5-6 level. Impression and Plan Patient is a 66-year-old male. He has a past medical history significant for postlaminectomy syndrome, chronic pain, cervical stenosis, cervical neuritis, lumbar neuritis, and complaints of imbalance and bilateral hand tingling. He underwent a cervical epidural steroid injection?C7-T1 done on 04/08/2022 that unfortunate, did not give him any relief. He states that his main concern is his balance and bilateral hand tingling. He also has a lot of neck pain and headaches. He really wants to get these things addressed. Patient uses gabapentin 300 mg 1 in the morning, 1 in the afternoon, and 2 at night as well as Flexeril. He tolerates these and they help hi (more content not included)... [facility] Comment on above: Result Comment: Elec tronically Signed By: Elenita Lazar PA-C\.br\Date and Time Signed: 05/28/22 10:40 EST\.br\Electronically Co-Signed By: Kilo BARAJAS, Mark Khoury\.br\Date and Time Co-Signed: 06/03/22 11:15 EST Legal Correspondence Officeo n 05-28-2022 Legal Correspondence Office [id number]#1.00CD:127 [facility] Office/Clinic Note-Physician on 05-28-2022 Office/Clinic Note-Physician [id number]#1.00CD:127 [facility] Patient Correspondenceon Patient Correspondence [id number]#1.00CD:127 [facility] Patient Correspondence [id number]#1.00CD:127 [facility] Patient Correspondence [id number]#1.00CD:127 [facility] Patient Correspondence [id number]#1.00CD:127 [facility] Patient History Officeon Patient History Office [id number]#1.00CD:127 [facility] Coding Summary.on 04-10-2022 Coding Summary. CD:[id number] Gh0bWw +PGhlYWQ+TG3GWURvY60jpYAha S9OM3eTVS0LVLDXRJLICR5FJS7 tjBU0TYujF6BpeaWx DepbkGTtLU41REg7SYC4hNunRF mwmX4mvNRsO1q0JjDhCU81sF12 VTavMHUtVfS5XhJrtpinoDZq Z5erOmZeiDLwIzq+PHRhYmxlIH bbKOMnUKomKCDyIjXuqMkzYA1l Ug5hLTAgRJEmrUsiuDApRfHc v9oyZZEmVGgiAM8vkWrvP1YbaP X5XOIdo6j1Hu49vDQ+PHRkIHN0 pQarECffb542KdAee3tqZJZ0 kKAaKRmaCYV1Z50eq9X9VRBbTT MfVNI2gDA4mY0xpBwavfaqD8Qp vNPeOyF5QLH6rPRuzI7rqVub ywmvlI7zAtx+E11NUG7GJBZGOI 2LTbl4E4JxMoytlXB+VF34QDUn ZH01pKTvfAKrs4lgzIq4QlIe OGJlLGL3eKxoASgrn4DxNZJeJ3 1toYJsq1V3RSDorEfqgVWoFfMv xWH8sA0fDDyoaoeay0vrfnwp Twruw8ewjz06eX30U90zMJxtLF KaKMR3OHMvQZUrgKfvkc0neP1j Ii8+YCqhw5fnp0mctYi8FjZd MVEzymDuxZusZBA7h7KsMa80D4 JnzNxoc5QbUhj3vw35kMOkr9P2 fPM6RWgwUWHleG5vIWesIaK1 SHKcCoQgrO13dEBvOPnnYl0lvK yscBblYA7cJCLcuhsbUXFrfZ3k DXBjxKMkoAufBC3iAHFtanic c799MlQgAHU6BEQjhZWrB0OcnL 9qFlEyPTPnTPDlE1TtjBOzNUrz G866PRbyBmL9AUEwboHzS8Gp DAEntPkvCbL9p9C3Sr1Ss8Nljr czNDO5GDdzMRZfVzAiKoXlLwQ0 S3DeAmn2PQHswJwrTX6bE3Qb GLZittnrqqbqbOY7EBLmSEQgeR 34bOZkTAdxPz6re2Q8n503ERGt CUBhbN90Zm4upXofWWGefELD kP6zknshu0sjxkheHlXrSEBfYI q0ZOk4VMDpvDwaCfPeWJF1OmB2 QAM9iHWdjS5lcXpoqpeuiC0k Oyc+V21xdV4nKMA7HEE5qrwhFH DjseWsYI73FE94M8AeYcbjkEXd bGU+IMNztkDkrPcqZA4cPoBm a8kbh1DoZRmrO3ViFXExDGfrFg j7XEYuXQM3aMC1gG9kOYOoJVsu w0N4uDH2D2JvmbZaug4fq6cs MHFrGZpuC83mxFSfx4U5VZZlaJ K1OJGitCgmQfGspK84Mhs+PGNv gOvny2AgFdevq2eye6bwyRg7 KpCnSQEpocGukQmlDTX3x3LmXt 08I59aKAnfWQJvGMNtCVPeHWJw lGudkh9woR8bGl2+PGNvbCB3 zYZ5mC8dQXIxVoO4NLvbK074Ex KcgEIqZajcc7nzy4cacNw1WnVw ERHckeZsfXvcJMH9i6AnSk49 C75pTLgbTTOxZQTjQSAxYPEbwO bwfl1kmK5xAa5+FT4fi6nwgp76 nQ05eEA+MZCvOQE0gGrjZOtg EQTcmX3wQFlsRqX8ANOvPqCqjX 59wBHcDTwaHs8myWpcrIsiTU3k WFGvwtvod097EsXtg8oeEYHv mDXnYXatHQN8Z52pm2N7XDJeSV XjVKE5jTN9cA4hpJdklcblpWCi pNzwrsEwaOfuIHmtXTmjZ116 IHRvcDsnPlBhdGllbnQgTmFtZT x6W5CqLth9LNWgeSsnZV5tkVYe VFylZy5qoFtnbKvvEJ6zKPBb rgsiv864OpCbg4hxLKLeyBDsOM ngVAE3Z14jw4S3RWMoYCGiJZI1 mEX5sW6gnEjilequfSAazHcd ahVvxMpmGVeyRVqlD087TWUozK ouZlGpmgTqQMXczRL8KI31BE41 fPWjl0J7cFY6B6NbDIQhjmwv wnbrcJK8KYIrBKOiyI75Ac1pjW ymKx7bWJWjSMF0JCHvoBCgV9Qy eA6aPwVvSZQiGTSpC7ItvQHm HJxkA397XOnoCzQ8PLBugaFbT2 VqAIOtbIczEzQ0i2W4It6CU9T1 FV57HP91uLVrp3I2wUC0F3Op IGQrkeyhqlbmgHU9CAFpPUVxhW 24Bt8raWyeIg0gYHVeBHP2CHUv zPAxI3QiaE7uQyXrITKlEVAx I4YbnBXlJBheX738KVlwFyI2LE BrvqXsT1QfNJXoaRjbPpJ1p4M5 Xb3KEUm1IJ10CD31yKSlh5G1 fSU7Q7SxBMFrdoxycolxzQE6OI YmMJPswK32Ta2evDdxDz1yLTMq ZUT9IDYhnKHxR0EqdR4pJkPz AGPiZJWzX7KnfXGxQLokK830PB lqEtV1UJXhwdUwN3MpSXTfiPpb UaN8k0K6Wz5YCXKcXE15NCM3 pFW8AO94QN70F4ZdMwrcpEFbqD U+PHRhYmxlIHdpZHRoPScxMDAl LuEudAejQO5jLq3jCMBhVUKe mOfzfXIdZxRgf5hfTNUuBZweUA 2mwBdkX3NnaAH1KAEag3z4Oq53 F88rZ7TyhPC+PSKtbLY3rJD0 jO7wAyFsUsI6WXxyI324RhXmaJ AlWzymw3rnp1gheFs1XjD9RHKg zfCbyNnjDKT9h0ZqTp84N81f IHdpZHRoPSIxNSUiIHZhbGlnbj 7kfM2wZs7+SIYxwNO9kVS2eM3n KqPmHzO3HMfcZ182ZoRajBJi Rmufw7exx6zkiSc6RrCuZGUoxl IpuHlmEKB0i7AwZb92S4NtrSsr l6UhTyn4et91oQNjf4O4jJP5 J8ZrMLDytxcxwROxiGpuDM5pNT DtkqcjDHInvC3iJAFvP3h2EiOk SwW4IWfwP9UghpR3LOKslFSu OPdvFXB2Q29mf5F2BJPmFWIfBH Q4xHJ9kY4pqFmtltnrrYHlvXth teZhlHlvHSnuBRplQ668EETs hUilBCHgyY8mKFOafWYktMwoGE 1bUNTyscpaUe9EMW8EVEkSWIbz P8oRMngJHqZBIW41WN80sTJl n0Q9iVX9X3XvBZPfnbjnrgmfmY Q2KTHyHAYxfO28bETzPKkuQk3v q3G7o025XWZmZXVnbF67Pd6p uHtwDWHwxOVSoF7myxudp4jren fjXaXwVTAxLBb5NHh7RLUtfKyq RbEuBPQ0XlL9SJX7xOIffI8r rUmiyuzpcC8lRgp+MDIvMjYvMT t0HxqjxDK+ZQCvYNB5wZitFEog NKHxlP6lFPLxF1u1PdIlYwJ0 DMlaZ1QgMUFfkfndFc64fV5eZr MyEtA0GMriY2YsbcT5JEBnhDYt XIjxWXJ7B56hb7Z1ILLlRDMx NMA9nDY6cT3bmPcshutziKMxzW qvhnDhrNpmVHkiWNdfP262VFCa iGhiHaO8IJfaLXKhJE40SC66 zISnu1E8rES6M8HeFMGqjbsoay prrXU5LNInREGlyX30rQNeZYke Xq6ti6O9y407BEDqVDFpdI26 Bu6gdRosKVGfpQAHtW9xajeeq7 haqkprXyTkZDKaGSz1XNa4DQUd bOvjPcBkVLS1VlH3VRW7nNGk vG9njCghwjvozQ4lXru+TWFsZT wvdGQ+QZHgPMZ2bBcnSQhdTTDp hO7pCGZaH8s8LsVdIiJ3ZFzl P2SfRFTqygotPw93mZ0gAlPnOw P4KNczB7UsyhZ0LWQkuAPpZKoj ZAY0E08wh1V8ZZHeNXZyVSI5 jTU2uU0axUuhquorvOPeeKqwrc JgbPfyQZanQQnoR182SZFbbJqx CoGomX1xPIWuPGwypOIqnVfw dGQ+LM08rc39O9NhRuxgKri5FO KjZLB3mAH3bY1pQFLoBGxxc1Z4 wAW6A6EixzFmga9fh9czXTEm RBpsU24xoKQqi5A0LXVcnEG9XC DzkQopLxBoiF20Hyh+PGNvbGdy s7XtAccyy4vyg9qcaDe7HdGj STNsetBvhNnjPOL1b1UfCv52Q1 9sIHdpZHRoPSIzMCUiIHZhbGln vt5llA1yPv4+NQPdkVC8uLL7 kW2xUvLdSaE3JTeeK719ErYgtL WaAvzwi8azi8pyaWf5OrMqNEPc djEdwAynTTM8b9CvVr34Y0Jq yDwxz1DvJno4zi36bTNhe8F0lN O6Q0XgNPJwqaehtAHrmDncSE7a GSKarlrhOESidA3sHYFrO0l8 WpDtTvA1GNanS9LrydM5JVSofW XlQBZsxTEOxU7oxcgve0xmxrjv KyJyWTLhHId7NHk3LHCupUno NlStWIY7GsY2JTX0pNPjvL0mdZ ogpdyhcT5wMog+COx4n5ddvRTd UH8erDH2MP64OL87hZEvu1H7 uYD3E6JkTSTxhfpqqovduZM2QI QxWDPavJ78Wb0oxOvpXj9zQUPy KXC9QGQepEZbS3ZwuC8gAeNy MIBhXQDpN1EudYSfXBniB757LJ shPiE7FITsrwLlQ7YxUKYrdNxa SeU9b9U0Kq6JOG02LG61IF68 vBMwg0E6yYU5B3ErBPEshqzizu wmvIC9SPPzTOOgkU07Bm1ftIca Tp8jMDNqNXJ7KBWzaQPrM9Iz xI8dZuKgDGKjJBSsE7XqzWYlRJ xpK835QHyiOyY9RGBrnnNeI4Wp ZWTktVgdRjQ2e1U1Pl5VTw85 DN36JK15xHBgd0S5lAA6C2WwQN XsgburifoapIS6WDIiBQUsuJ55 Hk6kiUbxXz1cEULeYIP6KHNu qCEvH4WisO8rGfHeTQHzRRMsQ4 MxmIPwEJctI644TTrqPfF7DLMi ppOuS4FpAPYdyPmqAyB7n7S4 Wu6RVFrcrbw7N0TxTtngjNM+PC 68FVIgDN29vCSiiHAoz2ruqIk2 NdZdCLNcQJW3sGibOTeax2Gl ZXIt (more content not included)... [facility] Consent for Procedure/Surger yon 04-08-2022 Consent for Procedure/Surgery [id number]#1.00CD:127 [facility] Consent for Treatmenton 03-12 Consent for Treatment [id number]#1.00CD:127 [facility] Discharge Instructionson Discharge Instructions [id number]#1.00CD:127 [facility] IntraOperative Documentson 06-08-2021 IntraOperative Documents [id number]#1.00CD:127 [facility] Main OR Intraoperative Recor don 04-08-2022 Main OR Intraoperative Record IntraOp Document Type FTPM Summary Primary Physician: Mark Boateng MD Finalized Date/Time: 04/08/22 10:05:39 Pt. Name: JUAN SIMON /Sex: 1955 Male Med Rec #: [id number] Physician: Mark Boateng MD Financial #: [id number] Pt. Type: P Room/Bed: / Admit/Disch: 04/08/22 09:28:06 - Institution: Case Times FTPM Entry 1 Patient Times In Room 04/08/22 09:56:00 Out Room 04/08/22 10:04:00 Procedure Times Start 04/08/22 09:59:00 Stop 04/08/22 10:03:00 Anesthesia Times Last Modified By: Samantha Hsu RN 04/08/22 10:05:26 Case Attendance FTPM Entry 1 Entry 2 Entry 3 Case Attendee Kilo BARAJAS, Mark Basilio RN, Samantha Luna RN Role Performed Surgeon - Primary Scrub - Primary Forest Fire Officer - Primary Time In 04/08/22 09:56:00 04/08/22 09:56:00 04/08/22 09:56:00 Time Out 04/08/22 10:04:00 04/08/22 10:04:00 04/08/22 10:04:00 Procedure CERVICAL EPIDURAL CERVICAL EPIDURAL CERVICAL EPIDURAL STEROID INJECTION(.) STEROID INJECTION(.) STEROID INJECTION(.) Comments Last Modified By: Samantha Hsu RN 04/08/22 Samantha Hsu RN 04/08/22 Samantha Hsu RN 04/08/22 10:05:27 10:05:27 10:05:27 Entry 4 Case Attendee Vita Valle Role Performed Support Clerk Time In 04/08/22 09:56:00 Time Out 04/08/22 10:04:00 Procedure CERVICAL EPIDURAL STEROID INJECTION(.) Comments Last Modified By: Samantha Hsu RN 04/08/22 10:05:27 Perioperative Protocols FTPM Pre-Care Text: Implements protective measures prior to operative or invasive procedure, confirms identity before the operative or invasive procedure, verifies operative procedure, surgical site, and laterality Entry 1 Procedure(s) CERVICAL EPIDURAL Patient Identity Birthday, ID Band STEROID INJECTION(.) Verified (select at Check, Patient least 2): Participation Consents / H and P HandP, Surgery/Procedure Operative Site Present Verified Consent Marking Verified Surgical Site Yes Laterality Verified Yes Verified Procedure Verified Yes Correct Patient Yes Position Verified Availability Equipment, Medication, Prep Dry Yes Verified (If X-ray Applicable) PreOp Antibiotic No Time Out Samantha Hsu RN, Myers Given Ezra MARION, Kilo Tran MD, Leonard Heard Amy Time Out Complete 04/08/22 09:58:00 Outcomes Met? Yes Last Modified By: Samantha Hsu RN 04/08/22 09:58:21 Post-Care Text: The patient is free from signs and symptoms of injury caused by extraneous objects Allergy Information FTPM Pre-Care Text: Verifies allergies Entry 1 Allergies Reviewed? Yes Allergies Reviewed Self/Patient With Outcomes Met? Yes Last Modified By: Samantha Hsu RN 04/08/22 09:44:43 Post-Care Text: The patient received appropriate medication(s) safely administered during the perioperative period Surgical Procedures FTPM Entry 1 Procedure Description Procedure CERVICAL EPIDURAL Modifiers . STEROID INJECTION Surgeon Description C7-T1 MOLLY Primary Procedure Yes Primary Surgeon Kilo BARAJAS, Mark Khoury Start 04/08/22 09:59:00 Stop 04/08/22 10:03:00 Anesthesia Type None Surgical Service Pain Management Wound Class 1 - Clean Last Modified By: Samantha Hsu RN 04/08/22 10:05:29 General Case Data FTPM Pre-Care Text: Classifies surgical wound, implements aseptic technique, initiates traffic control Entry 1 Case Information OR Pain Proc Room Case Level Level 2 Wound Class 1 - Clean Specialty Pain Management Preop Diagnosis M48.02 Postop Same As Preop Yes Postop Diagnosis M48.02 Outcomes Met? Yes Last Modified By: Samantha Hsu RN 04/08/22 09:44:57 Post-Care Text: The patient is free from signs and symptoms of infection Skin Assessment (Pre Procedure) FTPM Pre-Care Text: Implements protective measures to prevent skin/ tissue injury due to thermal or mechanical sources Evaluates for signs and symptoms of physical injury to skin and tissue Entry 1 Skin Integrity Intact, [place], Warm, and Skin Abnormality No Dry Outcomes Met? Yes Last Modified By: Samantha Hsu RN 04/08/22 09:45:07 Post-Care Text: The patient is free from signs and symptoms of injury caused by extraneous objects Patient Positioning FTPM Pre-Care Text: Identifies physical alterations that require additional precautions for procedure-specific positioning, verifies presence of prosthetics or corrective devices, positions the patient, evaluates the patient for signs and symptoms of injury as a result of positioning Entry 1 Procedure CERVICAL EPIDURAL Body Position Prone STEROID INJECTION(.) Feet Uncrossed? Yes Left Arm Position Resting at Side Right Arm Position Resting at Side Left Leg Position Extended Right Leg Position Extended Positioning Device Pillow Under Head Large, Safety Strap, Pillow Large Under Knees Press Points Checked Yes By Samantha Hsu RN Outcomes Met? Yes Last Modified By: Samantha Hsu RN 04/08/22 09:45:31 Post-Care Text: The patient is free from signs and symptoms of (more content not included)... [facility] Main OR Preoperative Recordo n 04-08-2022 Main OR Preoperative Record Holding Area Document Type FTPM Summary Primary Physician: Mark Boateng MD Finalized Date/Time: 04/08/22 09:40:11 Pt. Name: IMCHEALJUAN/Sex: 1955 Male Med Rec #: [id number] Physician: Mark Boateng MD Financial #: [id number] Pt. Type: P Room/Bed: / Admit/Disch: 04/08/22 09:28:06 - Institution: Case Times Holding FTPM Pre-Care Text: Verifies consent for planned procedure, identifies individual values and wishes concerning care, includes family members in perioperative teaching Secures patient's records' belongings, and valuables, maintains patient's dignity and privacy, and maintains patient confidentiality Entry 1 In Holding 04/08/22 09:38:00 Outcomes Met? Yes Last Modified By: Cora Ascencio RN 04/08/22 09:38:22 Post-Care Text: The patient participates in decisions affecting his or her perioperative plan of care The patient's right to privacy is maintained Surgery Checklist FTPM Entry 1 Patient Birthday, ID Band Procedure History and Physical, Identification: Check, Patient Verification: Surgical Consent, With Participation Patient NPO after Midnight: No Date/Time: 04/08/22 09:38:00 Results Reviewed 0700 Cup of coffee Personal Items: Cataract Lens Implant, Comments: Jewelry Personal Items Pt. wearing one ring Complaints of Pain: Yes Comment: and a watch. Pain Comment: 11/17 neck pain Operative Site Yes Marking: Marked By: Dr. Boateng Location: C7-T1 Availability Equipment, X-Ray Verified: Does Patient Smoke No Patient states Yes Comment - Adult -Denise postop adult Supervision supervision available Case Cancelled in No Holding Area see comments below for reason Last Modified By: Cora Ascencio RN 04/08/22 09:40:05 Finalized By: Cora Ascencio RN Document Signatures Signed By: Cora Ascencio RN 04/08/22 09:40 [facility] Operative Reporton 2 Operative Report Patient: JUAN SIMON Age: 66 years Sex: Male : 1955 Associated Diagnoses: None Author: Mark Boateng MD Procedure Procedure: Cervical Epidural Steroid Injection with Fluoroscopic Guidance at C7/T1 Diagnosis: Cervical Radiculitis and Spinal stenosis Anesthesia: local The patient was identified in the pre-op area. The procedure, including risks benefits and alternatives was discussed with the patient. The patient agreed to proceed. Informed consent was obtained and the site(s) marked. The patient was brought to the procedure room and placed in the prone position with the neck flexed. Time out was taken. The neck was prepped and draped in sterile fashion with Chloraprep. Skin and subcutaneous tissues were anesthetized with 6 mL of Lidocaine 2% through a 25G needle. An 18G Touhy needle was then advanced under fluoroscopic guidance (AP and contralateral oblique views) to the inferior lamina and then advanced cephalad into the C7/T1 epidural space using loss of resistance technique with a plastic JANE syringe. Isovue 3mL was injected under live fluoroscopy which demonstrated appropriate epidural spread without vascular uptake. After confirmation of negative aspiration, 1mL of 2% PF lidocaine, 4mL of PF normal saline, and 10mg of PF dexamethasone were injected. The needle was removed and a bandage applied. The patient was brought to the recovery area in stable condition and then monitored for an appropriate period of time. The patient was discharged home in good condition with post-procedure instructions. No apparent complications. Epidural injection procedure Physical Exam: vital signs Vital Signs 04/08/2022 9:58 EST Heart Rate Monitored 95 bpm Respiratory Rate 16 br/min Systolic Blood Pressure 137 mmHg Diastolic Blood Pressure 84 mmHg SpO2 95 % 04/08/2022 9:43 EST Temperature Oral 37 DegC Heart Rate Monitored 98 bpm Respiratory Rate 20 br/min Systolic Blood Pressure 148 mmHg HI Diastolic Blood Pressure 80 mmHg Mean Arterial Pressure, Monitered 103 mmHg SpO2 99 % . [facility] Comment on above: Result Comment: Elec tronically Signed By: Kilo BARAJAS, Mark Khoury\.br\Date and Time Signed: 04/08/22 10:04 EST COVID-19 Detected/Not Detect edOrdered By: Koki Basilio on 03-18-2022 SARS-CoV-2 (COVID-19) RNA MARGARET+non-probe Ql (Nph) Detected Not Detecte [facility] Comment on above: This is a duplicate RP2.1 COVID (PCR) result to be used for statistical tracking purpose only. No Panel InformationOrdered By: Koki Basilio on 03-18-2022 Respiratory Panel (PCR) [facility] Patient Correspondenceon Patient Correspondence [id number]#1.00CD:127 [facility] Insurance Correspondence Off iceon 03-11-2022 Insurance Correspondence Office [id number]#1.00CD:127 [facility] Coding Summary.on 03-10-2022 Coding Summary. CD:[id number] Gh0bWw +PGhlYWQ+KB1CJPEqO02cqLXff U4ZO5uHPO0BKNKSMIUXUX5LQT0 yhSQ5ECwyN9TxqyMj HpeglNJcRF17BPm7COK2dPypIE qbcF9cxOXyL5e4OxVwQF61wW40 XHnmSLZlZeW9WlJtmumblMOu V7awJbHbrRQnUxl+PHRhYmxlIH eeEHCsCCzpNVZzWfTaoTitMU3n Dy9qSAToESNvdHtllASyJiCj z4eiTXDfVYvsOW5pvFdjQ9XfyP A0DTEqy2s0Yk91oAM+PHRkIHN0 cEpqEBwkk912PkWhl4slRVJ4 uAOcXArpMWG8T69gz1S8RGUyGE CaEOW1iPH6yV5fdYmmqdtoP1Tv lDKuEgX7OIZ3mLJadE0pjNtk zswpdF3kKbu+D92GNV0EZYRIRE 0GKpe1Z1DpGqvvkBS+QU86ZDOz XM22rOScnNOoz9dxyEz4BdOo MYAzWNQ7wEhzEBsyv0KmIKDnQ5 8asPMva5O2QXMgjCdsiTBjDlFh yKD5sT5hZWoxkrqnc8windwe Udgsy4qylw94xO03S82dBKhgSB FxCUZ7IDPaEHYjpGhkkq4lvB3n Ii8+NKmks7dzl7rdrKj9PkJv FDQfviGtlHgeEZR4v2PlBq53U5 LmoApjp3QpFkc5nr41jAEip0N2 lOX1WFiyDZJutM6pQTagOyH4 QORgJiSxrP96sOHqXDvvPg1yxP ysvLofMM0mJZIedqgxJWEvaB4j UYJalEYlvZxuLH6yBUOpjmfr w488VpSsCTO8PXXdcBJgH3VwvR 4jYpFzMEBeYGWfF2KknCVjWEln A630JVpeKkT3OMDhkdGyR1Nc MTDtqYnnVgU9y8O5Ze8Tl9Spgh xgCOX1TWllTADhDeLiAyIqVqV5 I0PiMpb2CQGngTrpMP2cW7Gd CAXiwqgpygvutUK7TCIiKHNbmL 51cRTtRNttSz2nx6H2i684LYZz KEEiyK17Ad9ehZfmHEWkvIXF hC2zbwkuo7cxzlsnNmAxWZQvCW i2SBt4WARnhKddKnBmGIJ5OkO3 XRN2nAPalO2ptSkmkrnwsR9e Oyc+Z44bpO1nEXW4HHL6hlmcYF ZgweDtSL80XE24S3GoBkvlvWVz bGU+FOTiwgKrxQvhQX0aUsPh e3rtd8IrIWtpT2PaLIWsASqwSz v5PHVqWWV2hIY8iW8fECRgYRcv m7V3hYK8G1BdupNkju5sa6sy BSQjJYvjS48uoMHgb1X3RYRulH R6NDWcrKewWyPxoM99Lio+PGNv jYnfu7OyKarrd0jwm2wtkXd3 GvPiBTGqpqFjxXfkZRI3p9KxPa 75Q96ySFhvIVMvNVFjOUSjCLWo bZbmnv0qiH3lQs5+PGNvbCB3 dMV7aC8iCQTqNhM7ZKyaZ392Op IuuJUoYohef3yjr4odyJr7ShNg VTOsplPvrJypMTS7t3XqKh82 M60xSExsGQUdRDGpWYWrGWXrcM gejo6ceB5mJv1+ZF0yo7qvmy49 pA69dOW+FGBmRUH8sXowYPzs COYwrR7jFBwnFvB4DEYrPgLeoW 10fUZqPBcjKw3ezHqqvBctYZ8k LHTzvyfsq257GlPfw5kcFFEu iBWvDIphVPP2W95dp4B8JBYzJM RtPKU7nFF7zI9ezScxpzcfgIAb xQoitrDdpLgvABcpCFyeK832 IHRvcDsnPlBhdGllbnQgTmFtZT r3K6GeYdx4ZZGikPmeOH0jeBLl CKehAx4tnJnsdTnxWX6sXVEg hntex698NjDxk1zpGEQopNEwJE ieRHO4X02qs4T4RRFaEUWrZTM9 cRA1qP8bhAidasjjpBDirDwe lmImuDfrSIboYUxvG546TMDibB udUjXiwaHwBVWsgSN2UG43PL27 xAOdg4X7uSI2B2AaBQEchxtv psamtED3CGNkIEJsoC01Ij4gyT wqKx8tDUMyAOH4YNCxrYAhO7Qe oN9tIaBkFKRqPBCbU5RrvSDb IIlrV999XKwiTeD6YBWifzEhD8 FrOTOkfTfoPiT5c2H7Eg2ST9K8 PP78RY68eKJtx6J6aBI3Q6Fm PXYbhmuwboawxOZ2MPMxQONptH 63Uh1ryFhzGr6cCZHqLQF6OXPe oOZnN8QngI8xVhKlZOFiGQKp U1HqtWHiTWyeO705QSzxPxN2CU DmoqTgO8YgOFZecYnnNmQ0m2O3 Wa6PICw0PL07DL56dSMgq2V2 dHZ1L8SyBSHcncxoxptrhGH2MZ SaCJZolI74Hy1leLasIh9aTYFo LUH3WUUizXDjE8AdvX0hHfOs REJtSKVyW7AgxWHhRVkdO758ML ttVrQ7YGUmnaVrM7YaYTUbjVoy QnP3m2V3Ie3CBREjKH41JJD3 jSP4GG32NS93Z4ImOdphrLAnsY U+PHRhYmxlIHdpZHRoPScxMDAl ZrQbbRtkOY4jJz6gMDMgWYOc sQlqrKDkAuQpj3ozEBMxLBsfNL 0eeDnzF6WxhAN2KXMgs7r3Ad61 E99nO6LuzRO+YDUvoZX9fEX7 hT6wNsGxYuY6IRxxG441UzJpxY ZtAfcth9sgo0gfsCf3WaA8JLAm ogHgcKeuBDJ5h0SkNv70M19t IHdpZHRoPSIxNSUiIHZhbGlnbj 0zqT6hCw7+AMCzxBH9uRF1tB3l GwNzTnT9UXozZ532GgNijJFs Zxckv8fqr7muaLp1FsJvFMYlni UejMixIVE9l8GjTa29H8YpsFpt x8VnAlf3wv33qMXhd1J4kYG9 L1BpNJPgggqnvWDyiRvcRJ7nLF GzrtwhVYNfaI5wQUBgK0j0BsBj KmV2UMteT3SawxP4HACgeNSa HMgtDTZ9Y01zt0V3POMkDWQsCK G0fJT7oT9woKcxijlwxZTdtTrp euSpkNzxYUioFUpzG976JRIg rOzbTZYzxU6bTFFppYPlfPvqLK 6eUMTcotzxYx0RET7FOYlCHZaf U2bLLnpUXyIIRZ31EB83nVFw q6U8vBX6U3UhZFDvhhoabmvinY U3PNZcDTYkuP24zFEhKHafSv3q x8Q7k789BFIyFJWdnR33Fz4u sUouNHFzoTKZdE5qfynhv6qvlk mxEdTwDKKyXMg9WNb2VVOejZcu EpUiIBI7MtV6DEU3cEMopO5f sAehtwkpkU2nSxn+MDIvMjYvMT s2SseagNZ+QMRlEIM7hBrhBXzg PQJbnA0fSQOkT8e6ZvWuJxC0 KNbhK9QwHHYxkaysCc73tI9kUo EaUsU5UNuoO0QxwdY0VXZxvLTj PEqdMKT1P55us2L5TJJdCPKj QTO0dRG8oK3slNcfitfttAWepZ gfhzYpsGcmMLdvWEvuS729PNYc xHasHpM4VOazGFEtOJ62JU44 jLOmm8R0oUM1B3YhQSQlmilpxn hbsDF5RDOcRQXviJ22oYIvRCck He7qi7V8k294DIDfVBOzpS09 Bn5siRohIEFqnCGAaH0qowhgq1 bzgeyzJgBaLQEzNXp9VBf6NILy xLaeNpQgCGU1ArI2GGK5mEYy yL2gdPzsbriiiN6zOgy+TWFsZT wvdGQ+ZPOyXQI5rEylHOyxLDFe uQ7iDLNvU5n7MvLlTpQ5DAtv C5WvEDCmtcneIe22zL8xEmGwIf U6QIzwM8YdyxE1NRIzsWIjOOyt VVE9U62ye9H1BWZpFZYiVJZ8 yPE3iT3deIevpioilHTrsChbjy DceJkyORlgIIljI821ZVWjbCay LxKsrB5kKUYpKLnlkYUoyCnr dGQ+LY26my79G6WkOemzKiy5YF SoYQQ2lDY3oU4wYMUtAEylu6Y6 vVD6K1FodzCbta5dn2feRXJt IJjuR91bvYOsy9Z5FFZcaXI6HX BsvBxdJuObqT64Sir+PGNvbGdy m1PxYsejb5ffa4ifsNp1FfFq RVNsojRxdPbdTAT9f0MzZt63U6 9sIHdpZHRoPSIzMCUiIHZhbGln us1wyD7bDj1+DFLvrXO1oJO3 kO8oNeKsVvN0PZclQ829CbVpwJ FpKyxvj8shq6dfqCe9LjUfZYFi tqSggKjtNCO3v0ViMo09A5Uc fStxh4SfTjv8ja44bFSrz3I5tP K7U7DzISLlrkzdyBHoeGduXF8q DWOxwjnfDQRszY1ySUIjI1p2 ZuYtOzT6QQkuF5TgkjR5NTQmlW MoLNTpzYZGzU3bcphip2sibwsr QiBoAFSpPMo0MGd0QFGlbRei YhTfCSY5FnL5YRY9iLHlnI0uzC fpyfqlnM4eJwo+YUi6d0ypdIAx SB6ykCL2MM22MM97qYWjo3X7 lQL6R1JeZNThjknaznecsBK1OW YfSCFswD00Vm4jgPyhMg3wUURo DTG3RBSlrKLdL3CbpT0tWvGj LDCuFQShE2OrgIAzOYwpY048NN gnLcZ0OSJzahRcJ8AgXUVyoFvz AnF7k4N8Hm1XZL51ZG39KA62 yNGbp8V4cLB5H7XjUUNeasjnxl nxdIB3PRFxRIQgoP38Nn5jbKwg Tf7lLQMiBXC2BRJjwFUjF3Oj lT6lWlSmBGHwTKShM3AegVRyUZ dmP187TQgeDjX8ZKKmuiJuC1By WKYkbLtlHzB2m8Z8Yr5YNd93 IT02YZ98eLKbr2F0wCD4O2QxYN PtazmhvunfyMD8WLXiPOHeaY48 Ku5pmTeuVe4mNPTsWUR5ZZSj qZRiB1VmfC5eRiOjUYJiZKBvK5 AfbAHbEPwhS889DIwxDxO9OTWz yyGxD9FbLILdwGscMxI2k6V9 Ox9YBWjtkrd1L7LhJharaRU+PC 43EJNfUV12zJFkgVBjl2ureJa1 DuJyIIOcNME6vHfwITeww0Aq ZXIt (more content not included)... [facility] Consent for Treatmenton 02-09 Consent for Treatment [id number]#1.00CD:127 [facility] Consultation Noteon 03-07-20 Consultation Note Patient: JUAN SIMON Age: 66 years Sex: Male : 1955 Associated Diagnoses: None Author: Elenita Lazar PA-C Subjective Chief complaint 03/07/2022 14:17 EDT Lower back pain . Patient is a 66-year-old male. He has a past medical history significant for postlaminectomy syndrome, chronic pain, lumbar neuritis, and complaints of imbalance and bilateral hand tingling. This is his main complaint at this time. He underwent a recent caudal epidural steroid injection done on 02/17/2022 that gave him 100% relief for 1 day but nothing more significant than that. He has not yet heard back from [facility] about having a spinal cord stimulator reprogramming. Patient uses gabapentin 300 mg 1 in the morning, 1 in the afternoon, and 2 at night as well as Flexeril. He tolerates these and they help him. Unfortunate, he is still having a lot of hand tingling, arm weakness, and mainly balance issues. He is very bothered by this and is eager to hear what the MRI shows and what other options we have for him. Health Status Allergies: Allergic Reactions (Selected) Severity Not Documented Barley- No reactions were documented. Morphine- No reactions were documented. Stratford- No reactions were documented. Wheat- No reactions were documented. Current medications: (Selected) Prescriptions Prescribed cyclobenzaprine 10 mg Tab: 10 mg = 1 tab(s), Oral, TID, PRN for spasm, X 90 day(s), # 270 tab(s), Refills(s) 0, Pharmacy: [facility] #[id number], 162, cm, 02/17/22 13:37:00 EDT, Height/Length Dosing, 110, kg, 01/29/22 10:29:00 EDT, Weight Dosing front wheeled walker: front wheeled walker, See Instructions, 1 EA, 0, front wheeled walker to be used for stablility Length of need: 99, Supply gabapentin 300 mg Cap: 300 mg = 1 cap(s), Oral, QID, X 30 day(s), # 120 cap(s), Refills(s) 1, [facility]: [id number], 162, cm, 01/29/22 10:29:00 EDT, Height/Length Dosing, 110, kg, 01/29/22 10:29:00 EDT, Weight Dosing Documented Medications Documented Advair 500 mcg-50 mcg Powder: 2 puff(s), Inhalation, BID, Refill(s) 0 Celebrex: 100 mg, Oral, Daily, Refills(s) 0 Fiorinal 325 mg-50 mg-40 mg Cap: 2 cap(s), Oral, q6hr for pain, Refill(s) 0 Multi Vitamins oral tablet: 1 tab(s), Oral, Daily, Refill(s) 0 Multivitamin, Therapeutic w/ Minerals: 1 tab(s), Oral, Daily, 30 tab(s), Refill(s) 0 Oyster-D oral tablet: 1 tab(s), Oral, BID, Refill(s) 0 Pro-Air HFA CFC free 90 mcg/inh MDI: 1 puff(s), Inhalation, BID for wheezing, 8.5 gram, Refill(s) 0 atenolol: 25 mg, Oral, Daily, Refills(s) 0 divalproex sodium: 125 mg, Oral, Daily, Refills(s) 0 ibuprofen 200 mg Tab: 400 mg = 2 tab(s), Oral, q4hr, PRN for pain, # 120 tab(s), Refills(s) 0 montelukast 10 mg Tab: 10 mg = 1 tab(s), Oral, qPM, # 30 tab(s), Refills(s) 0 Problem list: All Problems Celiac disease / SNOMED CT 8442600638 / Confirmed Cancer / SNOMED CT 377633883 / Confirmed T cell lymphoma-3 years ago Snoring / SNOMED CT 496236426 / Confirmed Acid reflux / SNOMED CT 063176988 / Confirmed Anemia / SNOMED CT 279096984 / Confirmed Rheumatoid arthritis / SNOMED CT 911265100 / Confirmed Osteoarthritis / SNOMED CT 0188324613 / Confirmed Lymphoma / SNOMED CT 938841831 / Confirmed Lumbar post-laminectomy syndrome / SNOMED CT 188591903 / Confirmed 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 CT 56968783 / Confirmed Chronic pain / SNOMED CT 590533312 / Confirmed Long-term current use of opiate analgesic drug / SNOMED CT 022195969151123 / Confirmed Added secondary to current Opioid Treatment Agreement Obesity / ICD-9-CM 278.00 / Possible Objective Vital Signs 03/07/2022 14:17 EDT Peripheral Pulse Rate 88 bpm Respiratory Rate 16 br/min Systolic Blood Pressure 141 mmHg HI Diastolic Blood Pressure 84 mmHg Mean Arterial Pressure, Cuff 103 mmHg Vitals: Reviewed General: Sitting in a chair Fairly comfortable sitting Overweight Ambulating with a cane Somewhat unsteady HEENT: Normocephalic, normal hearing, normal voice Heart and lungs: Nonlabored respirations. No edema. Musculoskeletal: Normal range of motion of the upper and lower extremities Normal strength of lower extremities 5/5 Normal strength of the upper extremities?5/5 negative Nina's Skin: Unremarkable. Results Review Cervical MRI scan. [facility]. On a CD for review. C4-5 moderate spondylosis with mild crowding of the spinal cord. C5-6 spondylosis with mild to moderate crowding of the spinal cord. C6-7 mild to moderate crowding of the spinal cord. Greatest at the C5-6 level. Impression and Plan Patient is a 66-year-old male. He has a past medical history significant for postlaminectomy syndrome, chronic pain, lumbar neuritis, and complaints of imbalance and bilateral hand tingling. He does have some cervical stenosis on review of the MRI. His main complaints at this time are imbalance issues, arm weakness, and hand tingling. We (more content not included)... [facility] Comment on above: Result Comment: Elec tronically Signed By: Elenita Lazar PA-C\.br\Date and Time Signed: 03/07/22 14:43 EDT\.br\Electronically Co-Signed By: Kilo BARAJAS, Mark Ocsaio.br\Date and Time Co-Signed: 03/11/22 13:42 EDT Office/Clinic Note-Physician on 03-07-2022 Office/Clinic Note-Physician [id number]#1.00CD:127 [facility] Outside Records Officeon Outside Records Office [id number]#1.00CD:127 [facility] Radiology Outside Office Copy [id number]#1.00CD:127 [facility] Patient Correspondenceon Patient Correspondence [id number]#1.00CD:127 [facility] Patient History Officeon Patient History Office [id number]#1.00CD:127 [facility] Radiology Outside Office Driver'S License Examiner yon 02-19-2022 Radiology Outside Office Copy [id number]#1.00CD:12 7 [facility] Coding Summary.on 02-18-2022 Coding Summary. CD:[id number] Gh0bWw +PGhlYWQ+XR2LQHBfQ92jcWDrk O3CY5qVJP9EERJIOHWKWX9NLK5 kcBU6KOthX2XawrXv XugfjAQuVG01PBs6SQO2pBppDO zcaH2umCMlE3x4PlCzMR62cJ61 EEbdDMYgPiY1HkOtfbizbBZy K7cuNiVtnIAvTjo+PHRhYmxlIH ipYYGwPYxmRURaYkKygOeeTW4m Fd4qGZAkAGLtzWmbhNOuCvOj v0kdGHHhOFgrQB1ruAcoN5HdqO O7UQLhf1x7Oo40wBF+PHRkIHN0 mMhzGFnsl346GkWjv9atVOM5 zAWeGXjnJLS8Z15as0P8CQAtLC UlRGJ5xVV6hF8nwYpsylflC4Ei aXPcSmU2AHT4zZKubQ5xbEyp resvqC2bUcy+N85XVP5WDFMGEO 9EFqx1K1QzSomcgQC+IT87IHSd II14bVFrkCKcp0rrrYt7GaPx EMGfLTK5eVqjHFpbo0OpTBFiZ3 9yeNSsp7T2QJEksJjbgHHvUkRw fAC2iJ6aETymffkrh3zohxxd Aosvy7uspw16uW75P86aYCleMI YzKUJ7QQUtECAvfEynsv4diV7u Ii8+XHcmg6jly9zawIa3TyBn XIQsacUinJmeBWY5u9KcHx51X4 IinAbsi7AgRjq4hq62eSXth2J6 fZM3AFluWSTslJ4zKBvmOwR6 XYSnBuXroO89rRXmKNvaTf8zvX oxpVxzKX4nCVHvssrmGMSjdV7d LEQhwQHnlJglBA4wOKDrpgzb d051YzVjROR7WJTmcDVeF0IjcI 3oYvIfGGGmLOJeM3FjiSNoFWne Q578KWmrBnV8OBRcupNuF0Lm WXQcwUfdWeH7j6V9Qv5Kj3Lwlr voQPJ1XCmnRCTgXgDpSaWhXgF4 F1NiSaz1HNKhlWafES8yF1Sf WORlcujlwhzkmAD3YFEhOMRhaX 32kRGzPQhvHr6vw5J3p116MGDt WINfzU56Pe9rqAtxPTBygTCF wX0kiiaue2lnfleaVzCpLGYnJT p2XOu3GJFuwMujHzRxPYP7DjO2 CBX5aMSdgE1omZcesvmgtR7g Oyc+E95scU4mAWJ1WJU7tvtwKR OhzhYdIN95FJ03I7SeIsulcJDq bGU+QINyujQxmZszUT0zLvUe p4abr1DkNTeoJ6LyQADoWNrlLz k9QQYfTDT8xKU5qT5yIXKnHDlb s6Y8mRY9E3DspzWcms3is0xx QHKkKXumY36miLNjn9K8QUCtzX D5CYOpiFgsDpSecZ10Nrz+PGNv yPmpy6JxYxllq7vtn7wueCr6 PqTdUJUytwTjpAuiCUM8e0ZfKz 43S09vKUdaQLBzDGBjNQWyBENd pSmcvb1prD9jTc6+PGNvbCB3 wJY2bX1oBTStIgJ2GJwyQ270Xo AyjHJvMhqvh2apw5zqkYk9ZaWc HPRsmoZwgGkaPTI5z8IwDo50 N23tPPixNRFcDLIrDZYbRSCuoX prsu8zdO0cXn4+TH9fo6avqh69 wN24oXJ+ACHrQYN2vXxjKJzm JJVxuX2eLOruVpB5FKSyRhOcrD 86bDVoLIyvLr7ebTabqJmxVF1t VWJsemapi811HpChs7mcHQLx hEZeJOroOJK6H03nd6S1KIIsAV ZpCLU8tXW0rF2usCctbfyhmZMn fKerfgStbKqkJPvtSMwyM731 IHRvcDsnPlBhdGllbnQgTmFtZT h1M2CkWus2LUUfgNtuNE7hzJRv ZOqyEy1tsLkwbZyvKY8zRTOk egget735OhSrl2puUUWyePSeLZ yaJRT7B47lr6S3ZVCoQPEzTVO2 xTC3cE2zvMlyzbxfhIRjaQme pwCpkWymVAraCRhcQ504RYLzuM nzOmIhnfRrNBAbbZH5XZ16TY89 lDCod2E0wYE4V5OhCROlifgn dihqsAH8HCAnQPQujG18Ul7eqS vvCi0bWLMsHLJ7HPBneAKgS3Hq qC0xYsEmBPLvOTMmR1SjgWCq QPvyR965YBgqDsK5DAYawmSzG4 BqMWHvlXpkSfI4a3E8Tr0UH2R5 KR19SZ14qROie0V0iJX5J1An QCXltmmwwxgxjBX1KVJyXIMqfB 24Eo8llYicXf4eWGEzBOH0EIIn fDPmJ1HonN8cLcLrOLNwHIMf R7XbkLWmYRcaT520UXlgJzP8IB NctzQqD5AeRHPyjFbnOtY8p5J1 Pw9SAKm0LR01DE08aSQnn6K8 hLZ3W7HfDOHyrnqgfwekmVI6IF TeMCKqxQ25Id8upNykFq3rQVMt GDU0UKFdeZFvU4WciS8aYbXv ULMqZUIqN9ZzbDNiVBzoF302SJ fsEbP7IFWlruVnJ8OnJYZjvUbo WaT9d7Z7Sy0FHNVdMC28HTQ7 fME5NZ64MT31W7CuVbmkaUXxiN U+PHRhYmxlIHdpZHRoPScxMDAl RpXzqHaiDP8pLy2zTGJjISNi hEbfzORrXpZmf4icHPUoUTsxIW 4hiQsqD7AivIM7JFYny4c1Br90 I98jS1EwwDB+JJNplGH1aZK7 gS2aBdSlLdW9XHioX999UtTdwO XbSzswf5jaf2uxyRa7OxA9CIHk xeXbuIrrQLL5f5MxYk63K66j IHdpZHRoPSIxNSUiIHZhbGlnbj 8rwX2vDx3+AFBntOK0yII8yE8n EaMqUtZ2KXutM076UgTnvRLn Pwdyb6wsx6oobLr2DuTaCVIhjx JsrOnmMWW6v7SxBk54Y8JnwLbr c7OqAhs5dc57oISes1Q0zDA3 B5UuMXXyvhmdjCWhuDchLJ3lJX MjomrxWHLaaR6vKXQfK8p9GuIb LwZ2SAagT5LbmrW9QVYhoMIz YGogHTH3M42lg9C3DDXmUKLvDJ F4yZR6nX4mzJarmjcdpUNekMal ilQksFazHTfiYZqkY050EULt nMczRJAdjF2hICIgeGZsqYpzJD 7vIGUnfkarQt5XBW1RXYyDXCzt Y2pEGatGVoQRXP70QF99pWXq q3A3tWJ7T8YmLSKdgyrgsgsrdH Y8DYOiLHIaeO73kNZmQGivMd7m x3P6p049KMGiTJDnkM36Gs9r nGziWRSktSWRyJ3hndggz6osqq rvAcZuNZDuWQj6EVx6TESzxTwc CzYpNVH4AxJ7HTT0lMFyxA9h aAiwwypsjL3vYsk+MDIvMjYvMT f5QnwbdHT+FUTqBUQ4gHepGZzu KHGveD7pNZThN7l7BmMmBfJ1 JGgvW6VcRGXrincqJb04gO5cFe UoWrR4LGikC0LdrfB7PGKzuYEz UAaaJVM0P33gx5T8BUHrKISw RFC7rOP9zN8tpQjdoulipTJgaX vozrPvzWqpYSzsLTfqA006OAYb hJvuHwP3QDfdGUNvWK70AQ88 wJJlq5X7qZO8G5MvVCErzydexc pafGS1VVEnSGCnwA52yADlFLmz Ab4le1Y1w826ZYAbTESieQ58 Ud9tiAqtHSRzaWMMsM6katwod6 avxcdoAaUvTABrJGa6ITm8IUNx eWtbGbBbSVA4JfR0SBP5hABd zW9pnWrokeflmS2gPzk+TWFsZT wvdGQ+UEHcKAK7jInsVJsrMMUz fA9tLLKuE0k0ZsWhTjA9AVmi F6CvRTMdycozTz88mI6pLkVzIx I2ROpnZ0VkzsL8WPOfuUErLGjt DHC5P98at4E9EIHoSTDuUPV3 eGZ3gY4riOddnticfRPgnNrvqf BdcCpuCKdtOJzhO628OTJqyYza PhFpoY8jGFTiDJmmqHGwlLiw dGQ+QV23dr94Z8BwIlqvEte0NU SeVKA4dLS7mI6tTTVcZWnnd6E2 mOA4G8JtrlAhph0gq3zwQUYn QMjzN97dsVNtq5S3INAijRK5GV RvsSroElBzsS19Yzr+PGNvbGdy a2HjShfxt0bcu5dwqTv8OePn SMPkefSwdZftGEX7j4QxRy32S2 9sIHdpZHRoPSIzMCUiIHZhbGln cp0hgK0fSi8+DYFybBA0aZX7 vX9vNxXuYyL9TIzbF186ThJukZ KuNvfue7zvj9nfhYm8CjYpXGTb liWraCgzUAZ7t3JkKl93D8Hx eKowf6GdUbl1sd58mWRdw2Q4pX Y5T5BgSLQuasimnEVcdTtjVF3r HLTfeigdYQLyuQ0cMGLrA1h0 BzLlBbW6KWhcX9AdmgE4YFYahR KeAQZasMWOlW7zythgr4dpeamz GdGaYOLoXDf5PSa5IWYyfSlt KrAwTBU4HzQ1PWY2kWWkzB3plI tuzkouvW2xRxx+HBn2u2jjoIZy RV3drZF1PB47NR95oEFit8P0 vMG1K3NcLOIsylphmkbvpPB0PY KvZIShzS28Zz0mvXmyXf4lMJSu PAS0DAQaaHYzD9ZcpT2aIwMf DFUuMYClC6WtwEOvWZpnQ772HG osMlF3ASTbxaEbU6DdWTGwmZie CuJ2c2Y6Xx3TAP66NS41DL99 vDRpb7P6sHL2D4OjYXBiltgxzb qmpAN3HCQuOHSndQ95Gx9vyRnk Ly9xSIZlQXQ6KKTnbLAeK8Rv tK2iKoJxNHHgBQTxO1UwzKRuCL qnG881KKbsQxT3RYCqkiEcM3Na SMHwgAjvEeQ4l3Z0Dj3YFd00 SB93RM77dAYau4D3xVK2V6JrOM CgprhyrncavBV3KQUmGYWglP07 Cw4ljDuoQn6yPKQwPDS1RCWf gFLlN4MkwJ4kUwPqEBCdNJCrV0 KxmTKoTCsqS288CLakQnE1AURf mjPcC3ZmXMUmwOcqCaT3a7P0 Il5XVWgrprb5M7EsFtgbaIF+PC 10MITcHP63wQLocJEra0cbwPw9 TcJiRRDlDPL4iWqsGJkmq5Jc ZXIt (more content not included)... [facility] Consent for Procedure/Surger yon 02-17-2022 Consent for Procedure/Surgery [id number]#1.00CD:127 [facility] Consent for Treatmenton 02-08 Consent for Treatment [id number]#1.00CD:127 [facility] Discharge Instructionson Discharge Instructions [id number]#1.00CD:127 [facility] IntraOperative Documentson 1 IntraOperative Documents [id number]#1.00CD:127 [facility] Main OR Intraoperative Recor don 02-17-2022 Main OR Intraoperative Record IntraOp Document Type FTPM Summary Primary Physician: Mark Boateng MD Finalized Date/Time: 02/17/22 14:47:04 Pt. Name: JUAN SIMON Mis LillyB./Sex: 1955 Male Med Rec #: [id number] Physician: Mark Boateng MD Financial #: [id number] Pt. Type: P Room/Bed: / Admit/Disch: 02/17/22 13:11:22 - Institution: Case Times FTPM Entry 1 Patient Times In Room 02/17/22 14:39:00 Out Room 02/17/22 14:46:00 Procedure Times Start 02/17/22 14:42:00 Stop 02/17/22 14:45:00 Anesthesia Times Last Modified By: Aracelis MARION, Samantha 02/17/22 14:46:53 Case Attendance FTPM Entry 1 Entry 2 Entry 3 Case Attendee Mark Boateng MD, RN, Samantha Mueller RN, Melida Abebe Role Performed Surgeon - Primary Forest Fire Officer - Primary SALES ACCOUNT REPRESENTATIVE Time In 02/17/22 14:39:00 02/17/22 14:39:00 02/17/22 14:39:00 Time Out 02/17/22 14:46:00 02/17/22 14:46:00 02/17/22 14:46:00 Procedure CAUDAL EPIDURAL STEROID CAUDAL EPIDURAL STEROID CAUDAL EPIDURAL STEROID INJECTION(.) INJECTION(.) INJECTION(.) Comments Last Modified By: Aracelis MARION, Samantha 02/17/22 Aracelis MARION, Samantha 02/17/22 Aracelis MARION, Samantha 02/17/22 14:46:54 14:46:54 14:46:54 Entry 4 Entry 5 Entry 6 Case Attendee Praful MARION, Valeria Valle, Vita Melida Mueller RN Role Performed Scrub - Relief Support Clerk Scrub - Primary Time In 02/17/22 14:39:00 02/17/22 14:39:00 02/17/22 14:39:00 Time Out 02/17/22 14:46:00 02/17/22 14:46:00 02/17/22 14:46:00 Procedure CAUDAL EPIDURAL STEROID CAUDAL EPIDURAL STEROID CAUDAL EPIDURAL STEROID INJECTION(.) INJECTION(.) INJECTION(.) Comments Last Modified By: Samantha Hsu RN 02/17/22 Samantha Hsu RN 02/17/22 Samantha Hsu RN 02/17/22 14:46:54 14:46:54 14:46:54 Entry 7 Entry 8 Case Attendee Praful MARION, Vita Carpio Role Performed Scrub - Relief Support Clerk Time In 02/17/22 14:39:00 02/17/22 14:39:00 Time Out 02/17/22 14:46:00 02/17/22 14:46:00 Procedure CAUDAL EPIDURAL STEROID CAUDAL EPIDURAL STEROID INJECTION(.) INJECTION(.) Comments Last Modified By: Samantha Hsu RN 02/17/22 Samantha Hsu RN 02/17/22 14:46:54 14:46:54 Perioperative Protocols FTPM Pre-Care Text: Implements protective measures prior to operative or invasive procedure, confirms identity before the operative or invasive procedure, verifies operative procedure, surgical site, and laterality Entry 1 Procedure(s) CAUDAL EPIDURAL STEROID Patient Identity Birthday, ID Band INJECTION(.) Verified (select at Check, Patient least 2): Participation Consents / H and P HandP, Surgery/Procedure Operative Site Present Verified Consent Marking Verified Surgical Site Yes Laterality Verified Yes Verified Procedure Verified Yes Correct Patient Yes Position Verified Availability Equipment, Medication, Prep Dry Yes Verified (If X-ray Applicable) PreOp Antibiotic No Time Out Samantha Hsu RN, Goldner Given Participants , Ervin Heard RN, Praful Medina RN, Leonard Tran Amy, Praful MARION, Leonard Tran Amy Time Out Complete 02/17/22 14:40:00 Outcomes Met? Yes Last Modified By: Samantha Hsu RN 02/17/22 14:40:30 Post-Care Text: The patient is free from signs and symptoms of injury caused by extraneous objects Allergy Information FTPM Pre-Care Text: Verifies allergies Entry 1 Allergies Reviewed? Yes Allergies Reviewed Self/Patient With Outcomes Met? Yes Last Modified By: Samantha Hsu RN 02/17/22 13:42:11 Post-Care Text: The patient received appropriate medication(s) safely administered during the perioperative period Surgical Procedures FTPM Entry 1 Procedure Description Procedure CAUDAL EPIDURAL STEROID Modifiers . INJECTION Surgeon Description CAUDAL MOLLY Primary Procedure Yes Primary Surgeon Mark Boateng MD Start 02/17/22 14:42:00 Stop 02/17/22 14:45:00 Anesthesia Type None Surgical Service Pain Management Wound Class 1 - Clean Last Modified By: Samantha Hsu RN 02/17/22 14:46:56 General Case Data FTPM Pre-Care Text: Classifies surgical wound, implements aseptic technique, initiates traffic control Entry 1 Case Information OR Pain Proc Room Case Level Level 2 Wound Class 1 - Clean Specialty Pain Management Preop Diagnosis M96.1 M56.16 Postop Same As Preop Yes Postop Diagnosis M96.1 M56.16 Outcomes Met? Yes Last Modified By: Samantha Hsu RN 02/17/22 13:42:25 Post-Care Text: The patient is free from signs and symptoms of infection Skin Assessment (Pre Procedure) FTPM Pre-Care Text: Implements protective measures to prevent skin/ tissue injury due to thermal or mechanical sources Evaluates for signs and symptoms of physical injury to skin and tissue Entry 1 Skin Integrity Intact, [place], Warm, and Skin Abnormality No Dry Outcomes Met? Yes Last Modified By: Samantha Hsu RN 02/17/22 13:42:35 Post-Care Text: The patient is free from signs and symptoms of injury caused by extraneous objects Patient Positioning FTPM Pre-Care Text: Identifies physical alterations that re (more content not included)... [facility] Main OR Preoperative Recordo n 02-17-2022 Main OR Preoperative Record Holding Area Document Type FTPM Summary Primary Physician: Mark Boateng MD Finalized Date/Time: 02/17/22 13:37:27 Pt. Name: JUAN SIMON Mis Grossman./Sex: 1955 Male Med Rec #: [id number] Physician: Mark Boateng MD Financial #: [id number] Pt. Type: P Room/Bed: / Admit/Disch: 02/17/22 13:11:22 - Institution: Case Times Holding FTPM Pre-Care Text: Verifies consent for planned procedure, identifies individual values and wishes concerning care, includes family members in perioperative teaching Secures patient's records' belongings, and valuables, maintains patient's dignity and privacy, and maintains patient confidentiality Entry 1 In Holding 02/17/22 13:35:00 Outcomes Met? Yes Last Modified By: Cora Ascencio RN 02/17/22 13:35:05 Post-Care Text: The patient participates in decisions affecting his or her perioperative plan of care The patient's right to privacy is maintained Surgery Checklist FTPM Entry 1 Patient Birthday, ID Band Procedure History and Physical, Identification: Check, Patient Verification: Surgical Consent, With Participation Patient NPO after Midnight: Yes Date/Time: 02/17/22 13:35:00 Personal Items: Cataract Lens Implant, Personal Items Pt. wearing one ring Glasses, Jewelry Comment: and glasses. He has a history of bilateral cataract lens implants. Complaints of Pain: Yes Pain Comment: 12/18 lower back pain Operative Site Yes Marked By: Dr. Boateng Marking: Location: caudal MOLLY Availability Equipment, X-Ray Verified: Does Patient Smoke No Patient states Yes Comment - Adult -Denise postop adult Supervision supervision available Case Cancelled in No Holding Area see comments below for reason Last Modified By: Cora Ascencio RN 02/17/22 13:37:22 Finalized By: Cora Ascencio RN Document Signatures Signed By: Cora Ascencio RN 02/17/22 13:37 Cora Ascencio RN 02/17/22 13:37 [facility] Operative Reporton 2 Operative Report Patient: JUAN SIMON Age: 66 years Sex: Male : 1955 Associated Diagnoses: None Author: Mark Boateng MD Procedure Procedure: Caudal Epidural Steroid Injection with Fluoroscopic Guidance Diagnosis: Lumbar Post laminectomy syndrome, Lumbar Radiculitis Anesthesia: local The patient was identified in the pre-op area. The procedure, including risks benefits and alternatives was discussed with the patient. The patient agreed to proceed. Informed consent was obtained and the site(s) marked. The patient was brought to the procedure room and placed in the prone position with padding under the abdomen to reduce lumbar lordosis. Time out was taken. Monitors and sedation per anesthesia. Patient was responsive throughout the procedure. The sacral region was prepped and draped in sterile fashion. Skin and subcutaneous tissues were anesthetized with 4 mL of Lidocaine 2% through a 25G needle. A 22G spinal needle was then advanced under fluoroscopic guidance onto the sacral hiatus then advanced to the level of S2. Isovue 1mL was injected under live fluoroscopy which demonstrated appropriate epidural spread without vascular uptake. After confirmation of negative aspiration, 2mL of 2% PF lidocaine, 7mL of PF normal saline, and 10mg of PF dexamethasone were injected. The needle was removed and a bandage applied. The patient was brought to the recovery area in stable condition and then monitored for an appropriate period of time. The patient was discharged home in good condition with post-procedure instructions. No apparent complications. Epidural injection procedure Physical Exam: vital signs Vital Signs 02/17/2022 14:40 EDT Heart Rate Monitored 84 bpm Respiratory Rate 16 br/min Systolic Blood Pressure 129 mmHg Diastolic Blood Pressure 89 mmHg SpO2 96 % 02/17/2022 13:37 EDT Temperature Oral 36.9 DegC Heart Rate Monitored 85 bpm Respiratory Rate 16 br/min Systolic Blood Pressure 145 mmHg HI Diastolic Blood Pressure 81 mmHg Mean Arterial Pressure, Monitered 102 mmHg SpO2 95 % . [facility] Comment on above: Result Comment: Elec tronically Signed By: Kilo BARAJAS, Mark Khoury\.br\Date and Time Signed: 02/17/22 14:46 EDT Coding Summary.on 02-06-2022 Coding Summary. CD:[id number] Gh0bWw +PGhlYWQ+SU7LRIUuP50ifZRiz Y7YL5pLGD3NLGFKFESOFP2ZFA6 bxBL7REfeH3CkxoRo IfqgvUBnIC56VGm3KAV0dDerIE anbV0poVRkV3z2RtDmLO43hM86 PNyvQZStIdF4MnJscjtxbCHo N6fuVdQpuSQcNfx+PHRhYmxlIH fhEHGcSUtnVLGvZxYmeBggTS8g Sn5kNWOqMMGjqOtthETlGaKr m7bnGVRvIRtwJX7exBfmO2RjuP A2UMSvu3e1Po69pDR+PHRkIHN0 pSloJLrdb303QfEta1ubKAE3 dEPpRCfjKOX7Z26wo4Q1BQLkCT HcKYJ9qAN1mT5mwLbmcoybQ1On fHIaCgZ3CYC9dAWfqK2zgOxi zzecwM8jAso+E79CCY2QELFJKB 4VCxg6S7IjIdpviIH+HF70YNSw KO30jGCpnCYue5egjWt6DiGh BHObRCA4uNvsIMilx8JsWAJkH9 3rgPPds6B3DDNvxSukwZYpKbCa mLU0yY2oXSararydy6pasiji Hoxsj4teaw99aM43Y19vJKtfLA MqAHO6HWWmBCSfrMixww9kuV2l Ii8+JQrct2qok4cjwNu5MiBh FQNoesZpiGhnCFL0m3XiBn23X9 OtuGkjq7NgArg5cy38aYQiw7G4 gXE1BTblBCBueQ1kFWmyUoD6 UWSwWpMveN46oKHoXRznKk6pkL derBwqZB3hYFBigaueUFSutE2s TZNqbXDmmCruNE3zXTQifkod w157MmByZJR4HNOgrROcG5RmlM 9tGzGiUFLjOKIzA7SejJKfSSyz W486WSawIpB3QFZfauBrG7Kk XUYxxSdcEdZ8e8W6Uu4Fr1Hgsc ssAGK5YWnrURJ1AcM6HdToAxK8 I0OwFjj2KCJyaHooIM9tH7Zz CQHynidnjhqzpLA1GGFfLPEnvL 59xEKwNDifDy0wd6A3x169WDZq TUCnlS29Xo5laUwvAQCdrORM sI9qhqeor9lqwjvaVuIgZJCpPG b4IMx3NIMrfRwrQrBgXEB9VaC0 XBT0pWBpdH2suBauqwaaxG6c Oyc+R56ngW2pTHI8UMS8qiwlZV WgtuShIJ37PG78B0ItPhcyoHLq bGU+VJExjyShbDnyXV2bYoUs i6utc8FcDPczL0WwYBAtWMbtXj c4PCDpCFQ4xQQ3cG4oDHYjFKug o1E6uOK6V4TkqdCbav8gj0my RLLgBTheI89itQAqb5K1FINyrC O7FQSwvOpvQlUzjN50Nrd+PGNv rViyg1AyPjjeq7bmg6pvlUx0 XsTgRNWlqxSyaLscNWT1t2EyJz 52C30aYBreDPJtGZFwBDDaLNPf tYnxam4vmS7gWb0+PGNvbCB3 yCB1bP9hSMOoEeW1PMbtZ992Yj MqtAFxWesml3djc6pgzUi4FvPx YPCucvUivWytXFH4c7HgAp98 H21pNTgpYFWuJQLzSCXkJLKcoF whsc3otA0hQi8+GW1iu1urmz81 fS69vPD+ZTSyZTC4iUroIPtd ENIbdE7rZGjsPgH5JJJbHxIntH 79hXIaGBooOe2ruBmacSbkUS6a WWQwnwltk636QwHko8ctBHDk uZPwTSqwOJL2Y77nn1O3UZPcNS EdVKV2hPB5fW3ojDnomoakkYFq rEjhnaCxxHssRLedRLkiC796 IHRvcDsnPlBhdGllbnQgTmFtZT z7R5AkItp0TIHbnQpeKF3teLXg OPixBm6ykPzyyMseOO2vEJGk qufil318WuQpw3fgUPDfrLPwTM ekDRF5Y58yd7L8PFLwMXMkYZW4 fIR3tQ2wbSyxmifcdEKqqEli hqQnuLnzVClvZRcmL182HCXcrC haOkZmfjBwEQMpjYA0NG89OB52 vZOtl5B4xAN6F6UrODOmmska vaymqYJ2RDTsYTKpsP14Lu8hcY fhTr8jIIEvGEA0LBGwbUFjE0Lv zS1hRqXlHRHaOUZtW6QxyVZx LQclT050WLyyCbD0DZLuwlKbC2 SiIJVndAsqNdM2a5Y5Rb1LS0U5 JN32IV50zMWdn8N9fKC4I3Ny QPAmbxnqwicycUE4HTZpUJEvwL 16Qx4ylEogPc4fJNFlANJ9MKNc hQNlP3AkgP6xNhNtVZPmJVQp G9UjqGOtUWmbB269JIriWlJ9IC OzrmPjI4UlIKOqgBroTqQ2l5M1 Nc0MVCe9IS91ZJ63cQZzm5N2 cEN3B7BoZHZasdpscrcxfVP5KP PaUCVtjT58Sh7zlEscJw0xNBPg QYC5AXYjkNUlZ6NuqK5nZmAj FMUrDDXrI4GluKQyLGrtV097OG ksSjB4MOUehbRyC2DpEFTpvQkr LpC4o4Z5Wi6AWQAxBG64FPQ5 mPM4MM95HY10G0RdBelgwSWbmJ U+PHRhYmxlIHdpZHRoPScxMDAl EfVapMrlDF5rDq0kSWDpYJKu hIaqqUFmZpOwq6fvUEEsJOwkLE 7uhAftZ5TdhMX6JPPht2m9Ay28 O12yG6XgvSQ+SKXgePV8iDK0 yK5eCnKvGuN7AMwbX184QhRxeD KcXxvnc6ani7cptHo1WyR5TRQr xbCyqBamDXK1c6KfOo13C04y IHdpZHRoPSIxNSUiIHZhbGlnbj 2gcA1iHx9+DARvlDZ5zCE9wS2y NdSsUlN1OYcnO042QxVszJYm Nkihb0vyu9mbtIv8CiDcHDXtez VpiWxyICY3p8WhOo96Q5HufYzs g4HkFxz3ag75cNZbq8I9sPW1 G6OeNTYiavoxrILgzVdjKM4pLW FxuwjdAUHcrZ4cVFGzL5b5UpUs LxM2LFkjK9YxfiK7RLOujVEm RTwaLPA8L35ac1L3SRFzXWXhTJ X1eGZ6hK2hxQktogmqkIQwqObo pcIccEkuVBliIMmlX768GWIz gUjiOCRwkF4fHKVphWLtaTclKL 9sEDGxzhsxLv5HHI2ISSlTANik F2oZQpvKKbBBZK72EK43pUJo y3O4sTR7T7VsVGApyibpulzjvU O5MGIjWLAzqO40kMFzPZbqJi2h j9Q0l127ZLHhEQWngQ56Nn5c hStoXZSnlMWWlE1kjhavr4wadr roRrRvHZVhUUl9MFr5URJiiPfe XrSuUZB6VdG4JED5fRSwwM5e mHtwaxxsqQ0xPzy+MDIvMjYvMT m2BkxnpYB+OQQaHJH0pUwcEQmn KKPatA8oCBIbJ3b3CsChPeK2 EMvmE4IsFGRkhsbnCm89tS5hUe WxCeV7KNclV2VxfiA5SITcpPPs XJcnTBO9C21tf2Z6KMBvPLFa UNA2bHM1iA8bvJiwcxeuzYInjI ldpmDmySiqKCdwEWbbJ433ROCr iOrtBiX0NDjgJRAkBS22PO15 mANis0M4dFP9O3AqAUFxfebjri blkRM6RVXiSUTniV89hEVwCUwq Kn6an7X0v294JOOnCBVwmU87 Dk1wkNdkBJIgnCOZlF4qhelwe1 gyqfvdDzElRTMdTCq6GKm1FGRt aGprOoSvXVR7JbT7OFZ4gJAh aG1taQbcqktbaJ5vLyw+TWFsZT wvdGQ+DTBtTBJ2pCykMParPJFw yI5aFBMlY4h8FuBbPjF2DPap T1XoNZVdyzelOh41nW3oRoTvIp O6EEvbK2LewkO3EWKyhVUoLBjp FJS3O70ou7Z2FKAkKTNlQSF9 yVI2lU8djEwxaomufAYmvTwihx TlfIvrAXebALzhU588BBTxcWjt YdFjnF1oETKyOQcrmXBrlElt dGQ+KH01vs89M3IpAqtvLkc7BS TwATN6pVM2wB2tWBNoTCsvm1B0 gMS8M3VhmePzja0sl9zyNEOt DZizG34umUWlz3R8KHTtpZV9SQ AzxTiqEuErfO20Ihw+PGNvbGdy g0HgLdvyo6tmo7fmxLi3QeXt XFLahoJqlQdvRTG5j8FaAw04T5 9sIHdpZHRoPSIzMCUiIHZhbGln cz8brI2cLo5+TEKrgJU5zCO2 rE9gTnAnJjM7EGovE493EfSosU OkIjkra0vtt2vkoUp1BbSeOHGi xoMhsLxpRWO1m4RcSj70F3Nz yOeaz1WcYnm4we02lFStb7H2xU M4B3SjTNUejkqbvZZgqSnxFA3c ODQrcamsWUNlxM6rBBNaU4g6 HnEsIyI4UYcmD0CeutH9ZJKkcK YxYODifUAZmW1trhebc7gvmzun KeXxTAIbCDb1TDf9FULlmSji AqHmJLV5QiM0MRM9gDCpfL0cuN bfnknfwK9qHug+ZGv0g0vgxCPk EI1quJU0LO26YD69vNDfc0B1 uMD1C9OrEIVemptyeubxjNI5UY DpORBieH94Aq1xsLwyCq8bQTGo GQF1GXKiyNFiE9NxsE8zZbUw XBXnUAHtA5XzgRZjSEknN157CO wlOdJ7SEKgpzLeG4NyNEHqmWwy NeQ6s3O5Cy8QWL84AD67YH35 nAUmy7C1jBO2R4OzGXIpqblbug rfxYI3OUPgCLWieE63Im8kbFtk Hl0eYOTgJQP9XWNjxVBoX9Bl rK9oKjZqFTXqZHEcF7RysNQhVT tuO497XRvfAsH6JQSaghJlS0Cd EKTipYxeLbG7q7F6Kr9YIy22 RX04UQ88qDRrt3G8nWM6E7WzWW PvblfejlwliHR9SSJyVNUquR32 Rv9ozBcpXj8nFCXkFAH7MRBi aAEzW6NjzG2nWxQhAYGiBIZdA2 VumSFsLLqcD048OHsxOlB5DYIk fvFzC8MjAZIriVlqWvR1b3R5 Fn2KAYxnyle2J7FkYdhrqHW+PC 02UPYyII20aGKzcYXic2qzaCj1 AlSiRDHiJTT9pNjuSQbdm9Ek ZXIt (more content not included)... [facility] Insurance Correspondence Off 02-05-2022 Insurance Correspondence Office [id number]#[id number]:127 [facility] Patient Correspondenceon Patient Correspondence [id number]#[id number]:127 [facility] Insurance Correspondence Off iceon 02-04-2022 Insurance Correspondence Office [id number]#[id number]:127 [facility] Physician Orderon 02-04-2022 Physician Order [id number]#1.00CD:127 [facility] Physician Order [id number]#1.00CD:127 [facility] Consent for Treatmenton 01-10 Consent for Treatment [id number]#[id number]:12 7 [facility] Consultation Noteon 01-30-20 Consultation Note Patient: JUAN SIMON Age: 66 years Sex: Male : 1955 Associated Diagnoses: None Author: Elenita Lazar PA-C Subjective Chief complaint 01/29/2022 10:19 EDT low back pain . Patient is a 66-year-old male. He has a past medical history significant for postlaminectomy syndrome, chronic pain, lumbar neuritis, and new complaints of imbalance he presents today for follow-up after getting a thoracic MRI scan to assess for any acute fractures. At this time he is complaining of lower back pain with left thigh discomfort. He also admits to balance issues. He states that he just continues to keep falling down. He also admits to changes in his handwriting. No arm weakness noted. In regards to his lower back and leg symptoms. He underwent previous caudal epidural steroid injection most recently on September 10, 2021 with relief?85 to 90% relief until the fall. He also has a spinal cord stimulator. Patient uses gabapentin 300 mg 1 in the morning, 1 in the afternoon, and 2 at night as well as Flexeril. He tolerates these and they help him. Unfortunate, he still has pain. He feels that it is time to have another injection and he also wanted me to note the balance issues and handwriting changes he is noticing. Health Status Allergies: Allergic Reactions (Selected) Severity Not Documented Barley- No reactions were documented. Morphine- No reactions were documented. [place]- No reactions were documented. Wheat- No reactions were documented. Current medications: (Selected) Prescriptions Prescribed cyclobenzaprine 10 mg Tab: 10 mg = 1 tab(s), Oral, TID, PRN for spasm, X 90 day(s), # 180 tab(s), Refills(s) 0, Pharmacy: [id number], 162, cm, 11/27/21 13:17:00 EDT, Height/Length Dosing, 108, kg, 11/27/21 13:17:00 EDT, Weight Dosing front wheeled walker: front wheeled walker, See Instructions, 1 EA, 0, front wheeled walker to be used for stablility Length of need: 99, Supply gabapentin 300 mg Cap: 300 mg = 1 cap(s), Oral, QID, X 30 day(s), # 120 cap(s), Refills(s) 1, Pharmacy: [facility] #[id number], 162, cm, 11/27/21 13:17:00 EDT, Height/Length Dosing, 108, kg, 11/27/21 13:17:00 EDT, Weight Dosing Documented Medications Documented Advair 500 mcg-50 mcg Powder: 2 puff(s), Inhalation, BID, Refill(s) 0 Celebrex: 100 mg, Oral, Daily, Refills(s) 0 Fiorinal 325 mg-50 mg-40 mg Cap: 2 cap(s), Oral, q6hr for pain, Refill(s) 0 Multivitamin, Therapeutic w/ Minerals: 1 tab(s), Oral, Daily, 30 tab(s), Refill(s) 0 Oyster-D oral tablet: 1 tab(s), Oral, BID, Refill(s) 0 Pro-Air HFA CFC free 90 mcg/inh MDI: 1 puff(s), Inhalation, BID for wheezing, 8.5 gram, Refill(s) 0 atenolol: 25 mg, Oral, Daily, Refills(s) 0 divalproex sodium: 125 mg, Oral, Daily, Refills(s) 0 montelukast 10 mg Tab: 10 mg = 1 tab(s), Oral, qPM, # 30 tab(s), Refills(s) 0 Problem list: All Problems Celiac disease / SNOMED CT 3836946870 / Confirmed Cancer / SNOMED CT 096859004 / Confirmed T cell lymphoma-3 years ago Snoring / SNOMED CT 101095445 / Confirmed Acid reflux / SNOMED CT 511264063 / Confirmed Anemia / SNOMED CT 032935271 / Confirmed Rheumatoid arthritis / SNOMED CT 670843793 / Confirmed Osteoarthritis / SNOMED CT 4609743585 / Confirmed Lymphoma / SNOMED CT 395531133 / Confirmed Lumbar post-laminectomy syndrome / SNOMED CT 391341397 / Confirmed 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 CT 49804278 / Confirmed Chronic pain / SNOMED CT 578985738 / Confirmed Long-term current use of opiate analgesic drug / SNOMED CT 762297636721821 / Confirmed Added secondary to current Opioid Treatment Agreement Obesity / ICD-9-CM 278.00 / Possible Objective Vital Signs 01/29/2022 10:19 EDT Peripheral Pulse Rate 92 bpm Respiratory Rate 18 br/min Systolic Blood Pressure 149 mmHg HI Diastolic Blood Pressure 94 mmHg HI Mean Arterial Pressure, Cuff 112 mmHg Vitals: Reviewed General: Sitting in a chair Fairly comfortable sitting Overweight Ambulating with a cane Somewhat unsteady HEENT: Normocephalic, normal hearing, normal voice Heart and lungs: Nonlabored respirations. No edema. Musculoskeletal: Normal range of motion of the upper and lower extremities Normal strength of lower extremities 5/5 Normal strength of the upper extremities?5/5 negative Nina's Skin: Unremarkable. Other than some bruising on his lower extremities Results Review Thoracic MRI. Report only. 12/11/2021. No thoracic degenerative disc disease or stenosis. Spinal cord stimulator leads in good position. No acute bony findings. No acute compression fractures. Impression and Plan Patient is a 66-year-old male with a past medical history significant for postlaminectomy syndrome, chronic pain, lumbar neuritis, and imbalance issues/handwriting changes. In regards to his lower back and radicular symptoms we reviewed his thoracic MRI scan. No acute fractures. He did well with previous caudal epidural steroid inject (more content not included)... [facility] Comment on above: Result Comment: Elec tronically Signed By: Elenita Lazar PA-C\.br\Date and Time Signed: 01/29/22 10:40 EDT\.br\Electronically Co-Signed By: Mark Boateng MD\.br\Date and Time Co-Signed: 02/17/22 11:22 EDT Office/Clinic Note-Physician on 01-29-2022 Office/Clinic Note-Physician [id number]#[id number]:127 [facility] Vital Signs Date Time Vital Sign Value Performing Clinician Facility 05-23-2024 14:47-0500 Heart rate 85 /min Ambika Benson DO Work Phone: [facility] 05-23-2024 14:47-0500 Respiratory rate 20 /min Ambika Benson DO Work Phone: [facility] 05-23-2024 14:41-0500 SaO2% (BldA) [Mass fraction] 92 % Ambika Benson DO Work Phone: [facility] 05-23-2024 11:15-0500 Body temperature 97.9 [degF] Ambika Benson DO Work Phone: [facility] 05-23-2024 11:15-0500 Diastolic blood pressure 64 mm[Hg] Ambika Benson DO Work Phone: [facility] 05-23-2024 11:15-0500 Systolic blood pressure 105 mm[Hg] Ambika Benson DO Work Phone: [facility] 05-23-2024 08:00-0500 Inhaled oxygen flow rate 2 L/min Ambika Benson DO Work Phone: [facility] 05-23-2024 06:00-0500 Body weight 89.4 kg Ambika Benosn DO Work Phone: [facility] 01-10-2025 01:13-0500 Inhaled oxygen concentration 65 % Ambika Benson DO Work Phone: [facility] 05-19-2024 16:15-0500 Body height 162.56 cm Ambika Benson DO Work Phone: [facility] 04-29-2024 11:01-0500 Body height 162.6 cm Lisa Benson DO Work Phone: [facility] 04-29-2024 11:01-0500 Body mass index (BMI) [Ratio] 35.53 kg/m2 Lisa Benson DO Work Phone: [facility] 04-29-2024 11:01-0500 Body temperature 95.31 [degF] Lisa Benson DO Work Phone: [facility] 04-29-2024 11:01-0500 Body weight 93.89 kg Lisa Benson DO Work Phone: [facility] 04-29-2024 11:01-0500 Diastolic blood pressure 72 mm[Hg] Lisa Benson DO Work Phone: [facility] 04-29-2024 11:01-0500 Heart rate 98 /min Lisa Benson DO Work Phone: [facility] 04-29-2024 11:01-0500 SaO2% (BldA) [Mass fraction] 97 % Lisa Benson DO Work Phone: [facility] 04-29-2024 11:01-0500 Systolic blood pressure 132 mm[Hg] Lisa Benson DO Work Phone: [facility] 04-20-2024 12:22-0500 Body height 162.6 cm Lisa Benson DO Work Phone: [facility] 04-20-2024 12:22-0500 Body mass index (BMI) [Ratio] 35.87 kg/m2 Lisa Benson DO Work Phone: [facility] 04-20-2024 12:22-0500 Body temperature 97.11 [degF] Lisa Benson DO Work Phone: [facility] 04-20-2024 12:22-0500 Body weight 94.8 kg Lisa Benson DO Work Phone: [facility] 04-20-2024 12:22-0500 Diastolic blood pressure 78 mm[Hg] Lisa Benson DO Work Phone: [facility] 04-20-2024 12:22-0500 Heart rate 100 /min Lisa Benson DO Work Phone: [facility] 04-20-2024 12:22-0500 SaO2% (BldA) [Mass fraction] 96 % Lisa Benson DO Work Phone: [facility] 04-20-2024 12:22-0500 Systolic blood pressure 138 mm[Hg] Lisa Benson DO Work Phone: [facility] 03-31-2024 11:01-0500 Body height 162.6 cm Lisa Benson DO Work Phone: [facility] 03-31-2024 11:01-0500 Body mass index (BMI) [Ratio] 36.05 kg/m2 Lisa Benson DO Work Phone: [facility] 03-31-2024 11:01-0500 Body temperature 96.6 [degF] Lisa Benson DO Work Phone: [facility] 03-31-2024 11:01-0500 Body weight 95.25 kg Lisa Benson DO Work Phone: [facility] 03-31-2024 11:01-0500 Diastolic blood pressure 78 mm[Hg] Lisa Benson DO Work Phone: [facility] 03-31-2024 11:01-0500 Heart rate 87 /min Lisa Benson DO Work Phone: [facility] 03-31-2024 11:01-0500 SaO2% (BldA) [Mass fraction] 98 % Lisa Benson DO Work Phone: [facility] 03-31-2024 11:01-0500 Systolic blood pressure 130 mm[Hg] Lisa Benson DO Work Phone: [facility] 03-18-2024 09:07-0500 Diastolic blood pressure 72 mm[Hg] Jimmy Castle DO Work Phone: [facility] 03-18-2024 09:07-0500 Heart rate 92 /min Jimmy Castle DO Work Phone: [facility] 03-18-2024 09:07-0500 Systolic blood pressure 145 mm[Hg] Jimmy Castle DO Work Phone: [facility] 03-01-2024 10:51-0400 Body height 162.6 cm Lisa Benson DO Work Phone: [facility] 03-01-2024 10:51-0400 Body mass index (BMI) [Ratio] 36.73 kg/m2 Lisa Benson DO Work Phone: [facility] 03-01-2024 10:51-0400 Body temperature 97.11 [degF] Lisa Benson DO Work Phone: [facility] 03-01-2024 10:51-0400 Body weight 97.07 kg Lisa Benson DO Work Phone: [facility] 03-01-2024 10:51-0400 Diastolic blood pressure 68 mm[Hg] Lisa Benson DO Work Phone: [facility] 03-01-2024 10:51-0400 Heart rate 99 /min Lisa Benson DO Work Phone: [facility] 03-01-2024 10:51-0400 SaO2% (BldA) [Mass fraction] 96 % Lisa Benson DO Work Phone: [facility] 03-01-2024 10:51-0400 Systolic blood pressure 118 mm[Hg] Lisa Benson DO Work Phone: [facility] 02-03-2024 10:18-0400 Body height 162.6 cm Lisa Benson DO Work Phone: [facility] 02-03-2024 10:18-0400 Body mass index (BMI) [Ratio] 37.59 kg/m2 Lisa Benson DO Work Phone: [facility] 02-03-2024 10:18-0400 Body temperature 96.91 [degF] Lisa Benson DO Work Phone: [facility] 02-03-2024 10:18-0400 Body weight 99.34 kg Lisa Benson DO Work Phone: [facility] 02-03-2024 10:18-0400 Diastolic blood pressure 80 mm[Hg] Lisa Benson DO Work Phone: [facility] 02-03-2024 10:18-0400 Heart rate 100 /min Lisa Benson DO Work Phone: [facility] 02-03-2024 10:18-0400 SaO2% (BldA) [Mass fraction] 92 % Lisa Benson DO Work Phone: [facility] 02-03-2024 10:18-0400 Systolic blood pressure 124 mm[Hg] Lisa Benson DO Work Phone: [facility] 01-12-2024 15:20-0400 Body height 162.6 cm Koki Basilio PA Work Phone: [facility] 01-12-2024 15:20-0400 Body mass index (BMI) [Ratio] 37.76 kg/m2 Koki Basilio PA Work Phone: [facility] 01-12-2024 15:20-0400 Body temperature 97.3 [degF] Koki Basilio PA Work Phone: [facility] 01-12-2024 15:20-0400 Body weight 99.79 kg Koki Basilio PA Work Phone: [facility] 01-12-2024 15:20-0400 Diastolic blood pressure 60 mm[Hg] Koki Basilio PA Work Phone: [facility] 01-12-2024 15:20-0400 Heart rate 106 /min Koki Basilio PA Work Phone: [facility] 01-12-2024 15:20-0400 SaO2% (BldA) [Mass fraction] 97 % Koki Basilio PA Work Phone: [facility] 01-12-2024 15:20-0400 Systolic blood pressure 116 mm[Hg] Koki SPANGLER Work Phone: [facility] 01-11-2024 01:00-0400 Diastolic blood pressure 83 mm[Hg] DO Ambika Benson Work Phone: [facility] 01-11-2024 01:00-0400 Heart rate 93 /min DO Ambika Benson Work Phone: [facility] 01-11-2024 01:00-0400 Respiratory rate 20 /min DO Ambika Benson Work Phone: [facility] 01-11-2024 01:00-0400 SaO2% (BldA) [Mass fraction] 94 % DO Ambika Benson Work Phone: [facility] 01-11-2024 01:00-0400 Systolic blood pressure 127 mm[Hg] DO Ambika Benson Work Phone: [facility] 01-10-2024 19:40-0400 Body temperature 98.8 [degF] DO Ambika Benson Work Phone: [facility] 01-04-2024 13:33-0400 Body height 162.6 cm Lisa Benson DO Work Phone: [facility] 01-04-2024 13:33-0400 Body mass index (BMI) [Ratio] 37.76 kg/m2 Lisa Krystalnatalie SPRINGER Work Phone: [facility] 01-04-2024 13:33-0400 Body temperature 96.91 [degF] Lisa Krystalmaganmagaly SPRINGER Work Phone: [facility] 01-04-2024 13:33-0400 Body weight 99.79 kg Lisa Benson DO Work Phone: [facility] 01-04-2024 13:33-0400 Diastolic blood pressure 68 mm[Hg] Lisa Benson DO Work Phone: [facility] 01-04-2024 13:33-0400 Heart rate 99 /min Lisa Kaftan DO Work Phone: [facility] 01-04-2024 13:33-0400 SaO2% (BldA) [Mass fraction] 96 % Lisa Benson DO Work Phone: [facility] 01-04-2024 13:33-0400 Systolic blood pressure 112 mm[Hg] Lisa Benson DO Work Phone: [facility] 12-29-2023 12:00-0400 Body temperature 98.1 [degF] DO Ambika Benson Work Phone: [facility] 12-29-2023 12:00-0400 Diastolic blood pressure 81 mm[Hg] DO Ambika Bneson Work Phone: [facility] 12-29-2023 12:00-0400 Heart rate 91 /min DO Ambika Benson Work Phone: [facility] 12-29-2023 12:00-0400 Respiratory rate 18 /min DO Ambika Benson Work Phone: [facility] 12-29-2023 12:00-0400 SaO2% (BldA) [Mass fraction] 92 % DO Ambika Benson Work Phone: [facility] 12-29-2023 12:00-0400 Systolic blood pressure 142 mm[Hg] DO Ambika Benson Work Phone: [facility] 12-29-2023 05:13-0400 Body weight 103.6 kg DO Ambika Benson Work Phone: [facility] 12-28-2023 11:10-0400 Body height 160.02 cm DO Ambika Benson Work Phone: [facility] 12-27-2023 16:00-0400 Inhaled oxygen flow rate 3 L/min DO Ambika Benson Work Phone: [facility] 12-27-2023 05:58-0400 Body temperature 100 [degF] DO Ambika Benson Work Phone: 6(949)[phone] [place] [address] 12-27-2023 05:58-0400 Diastolic blood pressure 71 mm[Hg] DO Ambika Benson Work Phone: 4(112)718-338602 [place] [address] 12-27-2023 05:58-0400 Heart rate 129 /min DO Ambika Benson Work Phone: 2(138)017-095802 [place] [address] 12-27-2023 05:58-0400 Inhaled oxygen flow rate 2 L/min DO Ambika Benson Work Phone: 1(157)290-788593 [address] 12-27-2023 05:58-0400 Respiratory rate 20 /min DO Ambika Benson Work Phone: 7(092)735-424793 [address] 12-27-2023 05:58-0400 SaO2% (BldA) [Mass fraction] 95 % DO Ambika Benson Work Phone: 7(252)423-354393 [address] 12-27-2023 05:58-0400 Systolic blood pressure 120 mm[Hg] DO Ambika Benson Work Phone: 7(605)043-703802 [place] [address] 12-27-2023 04:22-0400 Body height 162.56 cm DO Ambika Benson Work Phone: 8(464)914-476793 [address] 12-27-2023 04:22-0400 Body weight 103.4 kg DO Ambika Benson Work Phone: 4(137)234-223293 [address] 12-15-2023 12:24-0400 Body height 160.02 cm DO Ambika Benson Work Phone: 3(005)609-117002 [place] [address] 12-15-2023 12:24-0400 Body weight 102.5 kg DO Ambika Benson Work Phone: 6(671)992-309393 [address] 12-15-2023 12:23-0400 Body temperature 97.6 [degF] DO Ambika Benson Work Phone: 1(835)139-581802 [place] [address] 12-15-2023 12:23-0400 Diastolic blood pressure 91 mm[Hg] DO Ambika Benson Work Phone: 4(879)126-629693 [address] 12-15-2023 12:23-0400 Heart rate 98 /min DO Ambika Benson Work Phone: 4(743)932-620902 [place] [address] 12-15-2023 12:23-0400 Respiratory rate 18 /min DO Ambika Benson Work Phone: 0(886)549-592702 [place] [address] 12-15-2023 12:23-0400 SaO2% (BldA) [Mass fraction] 97 % DO Ambika Benson Work Phone: 7(005)180-512902 [place] [address] 12-15-2023 12:23-0400 Systolic blood pressure 128 mm[Hg] DO Ambika Benson Work Phone: 8(706)781-247793 [address] 12-08-2023 14:46-0400 Body temperature 97.6 [degF] DO Ambika Benson Work Phone: 5(439)522-220402 [place] [address] 12-08-2023 14:46-0400 Diastolic blood pressure 95 mm[Hg] DO Ambika Benson Work Phone: 3(356)422-070902 [place] [address] 12-08-2023 14:46-0400 Heart rate 94 /min DO Ambika Benson Work Phone: 5(180)762-465802 [place] [address] 12-08-2023 14:46-0400 Respiratory rate 20 /min DO Ambika Benson Work Phone: 6(585)348-445102 [place] [address] 12-08-2023 14:46-0400 SaO2% (BldA) [Mass fraction] 95 % DO Ambika Benson Work Phone: 6(741)682-176102 [place] [address] 12-08-2023 14:46-0400 Systolic blood pressure 156 mm[Hg] DO Ambika Benson Work Phone: 7(935)124-084802 [place] [address] 12-08-2023 13:24-0400 Body height 162.56 cm DO Ambika Benson Work Phone: 2(518)113-048902 [place] [address] 12-08-2023 13:24-0400 Body weight 104.3 kg DO Ambika Benson Work Phone: 8(060)421-078493 [address] 10-21-2023 12:20-0400 Body height 162.56 cm DO Ambika Benson Work Phone: [facility] 10-21-2023 12:20-0400 Body mass index (BMI) [Ratio] 39.4 kg/m2 DO Ambika Benson Work Phone: [facility] 10-21-2023 12:20-0400 Body temperature 97.7 [degF] DO Ambika Benson Work Phone: [facility] 10-21-2023 12:20-0400 Body weight 104.32 kg DO Ambika Benson Work Phone: 4(331)595-880102 [place] [address] 10-21-2023 12:20-0400 Diastolic blood pressure 95 mm[Hg] DO Ambika Benson Work Phone: 5(595)865-446502 [place] [address] 10-21-2023 12:20-0400 Heart rate 82 /min DO Ambika Benson Work Phone: 4(257)739-838802 [place] [address] 10-21-2023 12:20-0400 SaO2% (BldA) [Mass fraction] 97 % DO Ambika Benson Work Phone: [facility] 10-21-2023 12:20-0400 Systolic blood pressure 149 mm[Hg] DO Ambika Benson Work Phone: [facility] 12-24-2022 08:30-0400 Diastolic blood pressure 72 mm[Hg] Elenita Lazar [facility] 12-24-2022 08:30-0400 Mean blood pressure 90 mm[Hg] Elenita Lazar [facility] 12-24-2022 08:30-0400 Systolic blood pressure 126 mm[Hg] Elenita Lazar [facility] 11-26-2022 12:51-0400 Diastolic blood pressure 78 mm[Hg] Elenita Lazar [facility] 11-26-2022 12:51-0400 Heart rate 97 /min Elenita Lazar [facility] 11-26-2022 12:51-0400 Mean blood pressure 99 mm[Hg] Elenitamal Lazar [facility] 11-26-2022 12:51-0400 Respiratory rate 14 /min Elenita Lazar [facility] 11-26-2022 12:51-0400 Systolic blood pressure 142 mm[Hg] Elenitamal Lazar [facility] 11-04-2022 13:20-0400 Body height 161.29 cm Harry Mckinney Other [facility] Other 11-04-2022 13:20-0400 Body mass index (BMI) [Ratio] 38.88 kg/m2 Harry Mckinney Other [employer] Other 11-04-2022 13:20-0400 Body weight 101.15 kg Harry Mckinney Other [employer] Other 11-04-2022 13:20-0400 Diastolic blood pressure 90 mm[Hg] Harry Mckinney Other [employer] Other 11-04-2022 13:20-0400 Systolic blood pressure 134 mm[Hg] Harry Mckinney Other [address] [employer] Other 07-23-2022 14:03-0400 Diastolic blood pressure 84 mm[Hg] Elenitamal Lazar [facility] 07-23-2022 14:03-0400 Heart rate 97 /min Elenita Lazar [facility] 07-23-2022 14:03-0400 Mean blood pressure 98 mm[Hg] Elenita Lazar [facility] 07-23-2022 14:03-0400 Respiratory rate 18 /min Elenita Lazar [facility] 07-23-2022 14:03-0400 Systolic blood pressure 125 mm[Hg] Elenita Lazar [facility] 07-01-2022 12:48-0500 Heart rate 88 /min Mark Kilo [facility] 07-01-2022 12:48-0500 SaO2% (BldA) [Mass fraction] 94 % Mark Kilo [facility] 07-01-2022 12:48-0500 Diastolic blood pressure 69 mm[Hg] Mark Kilo [facility] 07-01-2022 12:48-0500 Mean blood pressure 89 mm[Hg] Mark Kilo [facility] 07-01-2022 12:48-0500 Systolic blood pressure 129 mm[Hg] Mark Kilo [facility] 07-01-2022 12:46-0500 Respiratory rate 16 /min Mark Kilo [facility] 07-01-2022 12:41-0500 Diastolic blood pressure 92 mm[Hg] Mark Kilo [facility] 07-01-2022 12:41-0500 Heart rate 94 /min Mark Kilo [facility] 07-01-2022 12:41-0500 Respiratory rate 16 /min Mark Kilo [facility] 07-01-2022 12:41-0500 SaO2% (BldA) [Mass fraction] 93 % Mark Kilo [facility] 07-01-2022 12:41-0500 Systolic blood pressure 149 mm[Hg] Mark Boateng [facility] 07-01-2022 12:19-0500 Heart rate 94 /min Marktia Boateng [facility] 07-01-2022 12:19-0500 SaO2% (BldA) [Mass fraction] 95 % Mark Boateng [facility] 07-01-2022 12:19-0500 Body temperature 98.06 [degF] Mark Boateng [facility] 07-01-2022 12:19-0500 Diastolic blood pressure 75 mm[Hg] Mark Boateng [facility] 07-01-2022 12:19-0500 Mean blood pressure 89 mm[Hg] Mark Boateng [facility] 07-01-2022 12:19-0500 Systolic blood pressure 117 mm[Hg] Mark Boateng [facility] 07-01-2022 12:18-0500 Respiratory rate 18 /min Mark Boateng [facility] 05-28-2022 10:29-0500 Diastolic blood pressure 84 mm[Hg] Elenitamal Lazar [facility] 05-28-2022 10:29-0500 Heart rate 108 /min Elenitamal Lazar [facility] 05-28-2022 10:29-0500 Mean blood pressure 98 mm[Hg] Elenita Lazar [facility] 05-28-2022 10:29-0500 Respiratory rate 18 /min Elenitamal Lazar [facility] 05-28-2022 10:29-0500 Systolic blood pressure 125 mm[Hg] Elenita Lazar [facility] 04-08-2022 10:08-0500 Diastolic blood pressure 70 mm[Hg] Mark Kilo [facility] 04-08-2022 10:08-0500 Heart rate 89 /min Mark Kilo [facility] 04-08-2022 10:08-0500 Mean blood pressure 87 mm[Hg] Mark Kilo [facility] 04-08-2022 10:08-0500 SaO2% (BldA) [Mass fraction] 98 % Mark Kilo [facility] 04-08-2022 10:08-0500 Systolic blood pressure 121 mm[Hg] Mark Kilo [facility] 04-08-2022 10:08-0500 Respiratory rate 16 /min Mark Kilo [facility] 04-08-2022 09:58-0500 Diastolic blood pressure 84 mm[Hg] Mark Kilo [facility] 04-08-2022 09:58-0500 Heart rate 95 /min Mark Kilo [facility] 04-08-2022 09:58-0500 Respiratory rate 16 /min Mark Kilo [facility] 04-08-2022 09:58-0500 SaO2% (BldA) [Mass fraction] 95 % Mark Kilo [facility] 04-08-2022 09:58-0500 Systolic blood pressure 137 mm[Hg] Mark Kilo [facility] 04-08-2022 09:43-0500 Body temperature 98.6 [degF] Mark Kilo [facility] 04-08-2022 09:43-0500 Diastolic blood pressure 80 mm[Hg] Mark Kilo [facility] 04-08-2022 09:43-0500 Heart rate 98 /min Mark Kilo [facility] 04-08-2022 09:43-0500 Mean blood pressure 103 mm[Hg] Mark Kilo [facility] 04-08-2022 09:43-0500 Respiratory rate 20 /min Marktia Boateng [facility] 04-08-2022 09:43-0500 SaO2% (BldA) [Mass fraction] 99 % Mark Boateng [facility] 04-08-2022 09:43-0500 Systolic blood pressure 148 mm[Hg] Mark Kilo [facility] 03-07-2022 14:17-0400 Diastolic blood pressure 84 mm[Hg] Elenita Lazar [facility] 03-07-2022 14:17-0400 Heart rate 88 /min Elenitamal Lazar [facility] 03-07-2022 14:17-0400 Mean blood pressure 103 mm[Hg] Elenitamal Lazar [facility] 03-07-2022 14:17-0400 Respiratory rate 16 /min Elenita Lazar [facility] 03-07-2022 14:17-0400 Systolic blood pressure 141 mm[Hg] Elenitamal Lazar [facility] 02-17-2022 14:47-0400 Diastolic blood pressure 75 mm[Hg] Marktia Boateng [facility] 02-17-2022 14:47-0400 Heart rate 79 /min Marktia Boateng [facility] 02-17-2022 14:47-0400 Mean blood pressure 91 mm[Hg] Mark Kilo [facility] 02-17-2022 14:47-0400 SaO2% (BldA) [Mass fraction] 95 % Mark Kilo [facility] 02-17-2022 14:47-0400 Systolic blood pressure 123 mm[Hg] Mark Kilo [facility] 02-17-2022 14:40-0400 Diastolic blood pressure 89 mm[Hg] Mark Kilo [facility] 02-17-2022 14:40-0400 Heart rate 84 /min Mark Kilo [facility] 02-17-2022 14:40-0400 Respiratory rate 16 /min Mark Kilo [facility] 02-17-2022 14:40-0400 SaO2% (BldA) [Mass fraction] 96 % Mark Kilo [facility] 02-17-2022 14:40-0400 Systolic blood pressure 129 mm[Hg] Mark Kilo [facility] 02-17-2022 13:37-0400 Body temperature 98.42 [degF] Mark Kilo [facility] 02-17-2022 13:37-0400 Diastolic blood pressure 81 mm[Hg] Mark Kilo [facility] 02-17-2022 13:37-0400 Heart rate 85 /min Mark Kilo [facility] 02-17-2022 13:37-0400 Mean blood pressure 102 mm[Hg] Mark Kilo [facility] 02-17-2022 13:37-0400 Respiratory rate 16 /min Mark Boateng [facility] 02-17-2022 13:37-0400 SaO2% (BldA) [Mass fraction] 95 % Mark Boateng [facility] 02-17-2022 13:37-0400 Systolic blood pressure 145 mm[Hg] Mark Boateng [facility] 01-29-2022 10:19-0400 Diastolic blood pressure 94 mm[Hg] Elenita Lazar [facility] 01-29-2022 10:19-0400 Heart rate 92 /min Elenita Lazar [facility] 01-29-2022 10:19-0400 Mean blood pressure 112 mm[Hg] Elenita Lazar [facility] 01-29-2022 10:19-0400 Respiratory rate 18 /min Elenita Lazar [facility] 01-29-2022 10:19-0400 Systolic blood pressure 149 mm[Hg] Elenita Lazar [facility] 11-27-2021 13:05-0400 Diastolic blood pressure 93 mm[Hg] Elenita Lazar [facility] 11-27-2021 13:05-0400 Heart rate 88 /min Elenita Lazar [facility] 11-27-2021 13:05-0400 Mean blood pressure 108 mm[Hg] Elenita Lazar [facility] 11-27-2021 13:05-0400 Respiratory rate 18 /min Elenita Lazar [facility] 11-27-2021 13:05-0400 Systolic blood pressure 139 mm[Hg] Elenita Lazar [facility] 09-25-2021 12:59-0400 Diastolic blood pressure 89 mm[Hg] Elenita Lazar [facility] 09-25-2021 12:59-0400 Heart rate 88 /min Elenita Lazar [facility] 09-25-2021 12:59-0400 Mean blood pressure 110 mm[Hg] Elenita Lazar [facility] 09-25-2021 12:59-0400 Respiratory rate 18 /min Elenita Lazar [facility] 09-25-2021 12:59-0400 Systolic blood pressure 152 mm[Hg] Elenita Lazar [facility] 09-10-2021 14:18-0400 Diastolic blood pressure 83 mm[Hg] Mark Kilo [facility] 09-10-2021 14:18-0400 Heart rate 89 /min Mark Kilo [facility] 09-10-2021 14:18-0400 Mean blood pressure 98 mm[Hg] Mark Kilo [facility] 09-10-2021 14:18-0400 SaO2% (BldA) [Mass fraction] 97 % Mark Kilo [facility] 09-10-2021 14:18-0400 Systolic blood pressure 128 mm[Hg] Mark Kilo [facility] 09-10-2021 14:15-0400 Diastolic blood pressure 100 mm[Hg] Mark Kilo [facility] 09-10-2021 14:15-0400 Heart rate 92 /min Mark Kilo [facility] 09-10-2021 14:15-0400 Respiratory rate 16 /min Mark Kilo [facility] 09-10-2021 14:15-0400 SaO2% (BldA) [Mass fraction] 96 % Mark Boateng [facility] 09-10-2021 14:15-0400 Systolic blood pressure 155 mm[Hg] Mark Boateng [facility] 09-10-2021 13:57-0400 Body temperature 98.24 [degF] Mark Boateng [facility] 09-10-2021 13:57-0400 Diastolic blood pressure 82 mm[Hg] Mark Boateng [facility] 09-10-2021 13:57-0400 Heart rate 89 /min Mark Boateng [facility] 09-10-2021 13:57-0400 Mean blood pressure 100 mm[Hg] Mark Boateng [facility] 09-10-2021 13:57-0400 Respiratory rate 14 /min Mark Boateng [facility] 09-10-2021 13:57-0400 SaO2% (BldA) [Mass fraction] 97 % Mark Boateng [facility] 09-10-2021 13:57-0400 Systolic blood pressure 135 mm[Hg] Mark Boateng [facility] 08-16-2021 10:03-0400 Diastolic blood pressure 78 mm[Hg] Elenita Lazar [facility] 08-16-2021 10:03-0400 Heart rate 91 /min Elenita Lazar [facility] 08-16-2021 10:03-0400 Mean blood pressure 100 mm[Hg] Elenita Lazar [facility] 08-16-2021 10:03-0400 Respiratory rate 18 /min Elenita Lazar [facility] 08-16-2021 10:03-0400 Systolic blood pressure 144 mm[Hg] Elenita Lazar [facility] Encounters Encounter Date Encounter Type Care Provider Facility Start: 06-11-2024 End: 06-11-2024 Clinisync Result Encounter Yaritza Larry MD Work Phone: [facility] Unsolicited Start: 06-11-2024 End: 06-11-2024 Clinisync Result Encounter Yaritza Larry MD Work Phone: [facility] Unsolicited Start: 05-18-2024 Non-patient / Non-visit Ambika Ray Benson DO Work Phone: [facility] Palliative Work Phone: Start: 05-17-2024 Non-patient / Non-visit Ambika Ray Benson DO Work Phone: [facility] Pulmonary Work Phone: Start: 05-10-2024 Non-patient / Non-visit Ambika Bell roman Stoveran DO Work Phone: [facility] Work Phone: Start: 05-04-2024 Non-patient / Non-visit Ambika Ray Stoveran DO Work Phone: [facility] Cardiology Work Phone: Start: 05-03-2024 Non-patient / Non-visit Ambika Ray Benson DO Work Phone: [facility] Infect Dis Work Phone: Start: 05-03-2024 End: 05-23-2024 Evaluation and management of inpatient Ambika Medley Kelley DO Work Phone: [facility] [place] [facility] Work Phone: Start: 05-03-2024 Non-patient / Non-visit Ambika Benson DO Work Phone: [facility] Pulmonary Work Phone: Start: 04-29-2024 End: 04-29-2024 Bamboo flowsheet Lias Benson DO Work Phone: [facility] Start: 04-29-2024 End: 04-29-2024 Bamboo flowsheet Lisa Benson DO Work Phone: [facility] Start: 04-29-2024 End: 04-29-2024 Office outpatient visit 15 minutes Lisa Benson DO Work Phone: [facility] Comment on above: Morbid obesity (CMS/ HCC); Vertigo Start: 04-29-2024 End: 04-29-2024 ambulatory LISA BENSON Not Available Start: 04-22-2024 End: 04-23-2024 Orders Only Lisa Benson DO Work Phone: [facility] Unsolicited Start: 04-22-2024 End: 04-22-2024 Telephone encounter Lisa Benson DO Work Phone: [facility] Comment on above: mychart Start: 04-20-2024 End: 04-20-2024 Refill Lisa Benson DO Work Phone: [facility] 230 Comment on above: Vertigo Start: 04-20-2024 End: 04-20-2024 ambulatory LISA BENSON Not Available Start: 04-20-2024 End: 04-20-2024 Office outpatient visit 15 minutes Lisa Benson DO Work Phone: [facility] Comment on above: Oral aphthae (Primar y Dx); Thrush, oral; Frequent falls Start: 03-31-2024 End: 03-31-2024 Bamboo flowsheet Lisa Benson DO Work Phone: [facility] Start: 03-31-2024 End: 03-31-2024 Bamboo flowsheet Lisa Benson DO Work Phone: [facility] Start: 03-31-2024 End: 03-31-2024 Office outpatient visit 25 minutes Lisa Benson DO Work Phone: [facility] Comment on above: Morbid obesity (CMS/ HCC) (Primary Dx); Prostate cancer screening; Prediabetes; MANUEL (obstructive sleep apnea); Spondylosis of lumbosacral spine without myelopathy; Other chronic pain Start: 03-31-2024 End: 03-31-2024 ambulatory LISA BENSON Not Available Start: 03-18-2024 End: 03-18-2024 ambulatory JIMMY CASTLE Facility:[facility] Start: 03-18-2024 End: 03-18-2024 Patient encounter procedure Jimmy Castle DO Work Phone: Neurology Comment on above: Frequent falls (Prim luz Dx); Mixed headache; Memory loss Start: 03-01-2024 End: 03-01-2024 Bamboo flowsheet Lisa Benson DO Work Phone: [facility] Start: 03-01-2024 End: 03-01-2024 BamAdomiko OnDeckheet Lisa Benson DO Work Phone: [facility] Start: 03-01-2024 End: 03-01-2024 Assay of hemosiderin, quant Koki SPANGLER Work Phone: [facility] Work Phone: Start: 03-01-2024 End: 03-01-2024 Patient encounter procedure Koki SPANGLER Work Phone: [facility] Comment on above: Routine general medi cassie examination at health care facility (Primary Dx) Start: 03-01-2024 End: 03-01-2024 Office outpatient visit 25 minutes Lisa Benson DO Work Phone: [facility] Comment on above: Frequent falls (Prim luz Dx); Morbid obesity (CMS/HCC); Essential hypertension (CMS/HCC); Impaired mobility and ADLs; Lumbar post-laminectomy syndrome; Prediabetes Start: 03-01-2024 End: 03-01-2024 ambulatory KOKI BASILIO Not Available Start: 02-22-2024 End: 02-22-2024 Refill Oliver Arroyo LPN Work Phone: [facility] 230 Comment on above: Other chronic pain Start: 02-10-2024 End: 02-10-2024 ambulatory LISA BENSON Not Available Start: 02-03-2024 End: 02-03-2024 Bamboo flowsheet Lisa Benson DO Work Phone: [facility] 230 Start: 02-03-2024 End: 02-03-2024 Bamboo flowsheet Lisa Leblanc Krystalnatalie DO Work Phone: [facility] 230 Start: 02-03-2024 End: 02-03-2024 Office outpatient visit 25 minutes Lisa Benson DO Work Phone: [facility] 230 Comment on above: Frequent falls (Prim luz Dx); Encounter for immunization; Lumbar post-laminectomy syndrome; Essential hypertension (CMS/HCC); Memory changes; Vertigo; Dizzy spells; Morbid obesity (CMS/HCC) Start: 02-03-2024 End: 02-03-2024 ambulatory LISA BENSON Not Available Start: 01-12-2024 End: 01-12-2024 Office outpatient visit 25 minutes Koki Basilio PA Work Phone: [facility] 230 Comment on above: Recurrent falls (Kerri tessa Dx); Memory changes; Lumbar back pain with radiculopathy affecting right lower extremity; Weakness of right lower extremity Start: 01-12-2024 End: 01-13-2024 ambulatory KOKI BASILIO Not Available Start: 01-10-2024 End: 01-11-2024 Emergency department patient visit DO Ambika Benson Work Phone: [facility]-Emergency Room Work Phone: Start: 01-04-2024 End: 01-04-2024 ambulatory LISA BENSON Not Available Start: 01-04-2024 End: 01-04-2024 Transitional care manage srvc 7 day discharge Lisa Benson DO Work Phone: [facility] 230 Comment on above: COVID-19 (Primary Dx ); Morbid obesity (CMS/HCC); Pneumonia of lower lobe due to infectious organism, unspecified laterality; Oral thrush; Frequent falls Start: 12-27-2023 End: 12-29-2023 Evaluation and management of inpatient DO Ambika Benson Work Phone: [facility] [place] [facility] Work Phone: Start: 12-25-2023 End: 12-25-2023 ambulatory CHERELLE Andres RODRIGUEZ Not Available Start: 12-15-2023 End: 12-15-2023 Emergency department patient visit DO Ambika Benson Work Phone: [facility]Emergency Room Work Phone: Start: 12-11-2023 End: 12-11-2023 ambulatory LISA BENSON Not Available Start: 12-08-2023 End: 12-08-2023 Emergency department patient visit DO Ambika Benson Work Phone: [facility]Emergency [facility] Work Phone: Start: 11-25-2023 End: 11-25-2023 ambulatory JESSICA S KEITH Not Available Start: 11-25-2023 End: 11-25-2023 ambulatory LISA Deana BENSON Not Available Start: 11-06-2023 End: 11-06-2023 ambulatory HILDA BEAL Not Available Start: 10-29-2023 End: 10-29-2023 ambulatory JESSICA S LIEBENTHAL Not Available Start: 10-28-2023 End: 10-28-2023 ambulatory LISA Deana BENSON Not Available Start: 10-27-2023 End: 10-27-2023 ambulatory LAURA MARIN Not Available Start: 10-21-2023 End: 10-21-2023 ambulatory DO Ambika Benson Work Phone: [facility] Work Phone: Start: 10-21-2023 End: 10-21-2023 Patient encounter procedure DO Ambika Benson Work Phone: [facility] [place] Work Phone: Start: 10-06-2023 End: 10-06-2023 ambulatory CHRISTEL C DIDION Not Available Start: 09-22-2023 End: 09-22-2023 Patient encounter procedure DO Ambika Benson Work Phone: [facility] [address] Work Phone: Start: 09-22-2023 End: 09-22-2023 ambulatory Lavern Hesham Facility:[facility] Start: 09-21-2023 End: 09-21-2023 ambulatory EJSSICA S LIEBENTHAL Not Available Start: 09-15-2023 End: 09-15-2023 ambulatory JESSICA LIEBENTHAL Not Available Start: 09-10-2023 End: 09-10-2023 ambulatory LAVERN DAHL Not Available Start: 09-07-2023 End: 09-07-2023 ambulatory RAFAEL HANEY Not Available Start: 09-02-2023 End: 09-02-2023 ambulatory LAVERN HESHAM Not Available Start: 08-18-2023 End: 08-18-2023 ambulatory JESSICA S LIEBENTHAL Not Available Start: 08-12-2023 End: 08-12-2023 ambulatory CHRISTEL C DIDION Not Available Start: 08-03-2023 End: 08-03-2023 ambulatory HILDA BEAL Not Available Start: 07-27-2023 End: 07-27-2023 ambulatory JESSICA S LIEBENTHAL Not Available Start: 07-27-2023 End: 07-27-2023 ambulatory CHRISTEL C DIDION Not Available Start: 07-20-2023 End: 07-20-2023 ambulatory JESSICA S LIEBENTHAL Not Available Start: 2023 Chart abstracting Jessica S Liebe nthal DPM Work Phone: [facility] Start: 2023 End: 2023 ambulatory JESSICA S LIEBENTHAL Not Available Start: 06-29-2023 End: 06-29-2023 ambulatory CHRISTEL C DIDION Not Available Start: 06-23-2023 End: 06-23-2023 Office outpatient visit 15 minutes Lisa Benson DO Work Phone: [facility] Comment on above: COVID-19 Start: 06-17-2023 End: 06-17-2023 Office outpatient visit 15 minutes Jessica S Keith DPM Work Phone: [facility] Comment on above: Skin ulcer of toe of left foot, limited to breakdown of skin (CMS/HCC) (Primary Dx); Hammer toe of left foot Start: 06-17-2023 End: 06-17-2023 ambulatory JESSICA S LIEBENTHAL Not Available Start: 06-15-2023 Bamboo flowsheet Christel Walter n [employer] Work Phone: [facility] Start: 06-15-2023 Bamboo flowsheet Christel Walter n [employer] ATT[employer] Work Phone: [facility] Start: 06-15-2023 End: 06-15-2023 ambulatory CHRISTEL C DIDION Not Available Start: 06-14-2023 Chart abstracting Christel Wise on [employer] ATTENDANT-S Work Phone: [facility] Start: 06-08-2023 End: 06-08-2023 ambulatory CHRISTEL C DIDION Not Available Start: 06-08-2023 End: 06-08-2023 ambulatory JESSICA S LIEBENTHAL Not Available Start: 05-28-2023 End: 05-28-2023 ambulatory CHRISTEL C DIDION Not Available Start: 05-26-2023 End: 05-26-2023 ambulatory DPM Jessica Sharps Work Phone: [facility] Work Phone: Start: 05-26-2023 End: 05-26-2023 Departed Referred DPM Jessica Sharps Work Phone: [facility] [address] Work Phone: Start: 05-26-2023 End: 01-16-2024 ambulatory JESSICA S LIEBENTHAL Not Available Start: 12-24-2022 End: 12-25-2022 ambulatory Elenita Lazar Facility:[facility] Start: 12-24-2022 End: 12-24-2022 Pain Management Elenita Lazar [facility] Start: 11-26-2022 End: 11-27-2022 ambulatory Elenita Lazar Facility:[facility] Start: 11-26-2022 End: 11-26-2022 Pain Management Elenita Lazar [facility] Start: 11-04-2022 End: 11-04-2022 ambulatory Harry Mckinney Other [facility] Other Start: 11-04-2022 Office outpatient ne w 30 minutes Harry Mckinney [facility] Neuro[facility] Start: 10-21-2022 End: 10-22-2022 ambulatory Mark Boateng Facility:[facility] Start: 09-24-2022 End: 09-25-2022 ambulatory PA-C Elenitamal Lazar Facility:[facility] Start: 07-23-2022 End: 07-24-2022 ambulatory Elenitamal Lazar Facility:[facility] Start: 07-23-2022 End: 07-23-2022 Pain Management Elenitamal Lazar [facility] Start: 07-01-2022 End: 07-02-2022 ambulatory Mark Boateng Facility:[facility] Start: 07-01-2022 End: 07-01-2022 Pain Management Mark Boateng [facility] Start: 05-28-2022 End: 05-29-2022 ambulatory Elenita Cady Facility:[facility] Start: 05-28-2022 End: 05-28-2022 Pain Management Elenitamal Lazar [facility] Start: 04-08-2022 End: 04-09-2022 ambulatory Mark Boateng Facility:[facility] Start: 04-08-2022 End: 04-08-2022 Pain Management Mark Boateng [facility] Start: 03-18-2022 End: 03-18-2022 Patient encounter procedure DO Ambika Benson Work Phone: [facility] Start: 03-07-2022 End: 03-08-2022 ambulatory Elenita Lazar Facility:[facility] Start: 03-07-2022 End: 03-07-2022 Pain Management Elenita Lazar [facility] Start: 02-18-2022 End: 02-18-2022 Patient encounter procedure DO Ambika Benson Work Phone: [facility] [address] Start: 02-17-2022 End: 02-18-2022 ambulatory MD Mark Boateng Facility:[facility] Start: 02-17-2022 End: 02-17-2022 Pain Management Mark Boateng [facility] Start: 02-12-2022 End: 02-12-2022 ambulatory DO Ambika Benson Work Phone: [facility] Work Phone: Start: 02-12-2022 End: 02-12-2022 Discharged Recurring DO Ambika Benson Work Phone: [facility]-Physical Therapy [address] Start: 01-29-2022 End: 01-30-2022 ambulatory Elenita Lazar Facility:[facility] Start: 01-29-2022 End: 01-29-2022 Pain Management Elenita Lazar [facility] Start: 12-11-2021 End: 12-11-2021 Patient encounter procedure DO Ambika Benson Work Phone: [facility] [address] Start: 11-27-2021 End: 11-27-2021 Pain Management Elenita Lazar [facility] Start: 09-25-2021 End: 09-25-2021 Pain Management Elenita Lazar [facility] Start: 09-10-2021 End: 09-10-2021 Pain Management Mark Boateng [facility] Start: 08-16-2021 End: 08-16-2021 Pain Management Elenita Lazar [facility] Procedures Date Procedure Procedure Detail Performing Clinician Start: 06-11-2024 ALL CBC WITH AUTO DIFF Yaritza Larry MD Work Phone: Start: 05-18-2024 Plain chest X-ray Ambika Benson DO Work Phone: Start: 05-17-2024 Respiratory Panel (PCR) Ambika Benson DO Work Phone: Start: 05-16-2024 Methicillin resistan t Staphylococcus aureus culture Ambika Benson DO Work Phone: Start: 05-15-2024 Plain chest X-ray Ambika Benson DO Work Phone: Start: 05-14-2024 Aerobic microbial culture Ambika Benson DO Work Phone: Start: 05-14-2024 Gram stain microscopy Tatiana Benson DO Work Phone: Start: 05-14-2024 Plain chest X-ray Ambika Benson DO Work Phone: Start: 05-13-2024 Plain chest X-ray Ambika Benson DO Work Phone: Start: 05-13-2024 CT of head without contrast Ambika Benson DO Work Phone: Start: 05-12-2024 CT of head without contrast Ambika Benson DO Work Phone: Start: 05-12-2024 Plain chest X-ray Ambika Benson DO Work Phone: Start: 05-09-2024 CT of head without contrast Ambika Benson DO Work Phone: Start: 05-08-2024 Computed tomography of abdomen and pelvis with contrast Ambika Benson DO Work Phone: Start: 05-08-2024 CT angiography of thorax Ambika Benson DO Work Phone: Start: 05-08-2024 Plain chest X-ray Ambika Benson DO Work Phone: Start: 05-05-2024 Bacteria identified in Blood by Culture Ambika Benson DO Work Phone: Start: 05-03-2024 Bacteria identified in Blood by Culture Ambika Benson DO Work Phone: Start: 05-03-2024 Computed tomography of abdomen and pelvis with contrast Ambika Benson DO Work Phone: Start: 05-02-2024 Plain chest X-ray Ambika Benson DO Work Phone: Start: 05-02-2024 Bacteria identified in Blood by Culture Ambika Benson DO Work Phone: Start: 05-02-2024 Bacterial ID (NA Mul tiplex Assay) Ambika Benson DO Work Phone: Start: 05-02-2024 Respiratory Panel (PCR) Ambika Benson DO Work Phone: Start: 05-02-2024 Urine culture Ambika Benson DO Work Phone: Start: 05-02-2024 CT of head without contrast Ambika Benson DO Work Phone: Start: 05-02-2024 Plain chest X-ray Ambika Benson DO Work Phone: Start: 04-22-2024 Complete blood count with white cell differential, automated Lisa Benson DO Work Phone: Start: 04-22-2024 Comprehensive metabo lic panel Lisa Benson DO Work Phone: Start: 04-22-2024 SPECIMEN STATUS REPORT Lisa Benson DO Work Phone: Start: 12-28-2023 Duplex scan of lower limb veins DO Ambika Benson Work Phone: Start: 12-27-2023 Blood culture for ba cteria, including anaerobic screen DO Ambika Benson Work Phone: Start: 12-27-2023 Investigation of tra nsfusion reaction DO Ambika Benson Work Phone: Start: 12-27-2023 SARS-CoV-2, Influenz a & RSV (PCR) DO Ambika Benson Work Phone: Start: 12-27-2023 Urine culture DO Ambika Benson Work Phone: Start: 12-27-2023 CT of head without contrast DO Ambika Benson Work Phone: Start: 12-27-2023 Plain chest X-ray DO Ambika Benson Work Phone: Start: 12-08-2023 CT cervical spine wi thout contrast DO Ambika Benson Work Phone: Start: 12-08-2023 CT of head without contrast DO Ambika Benson Work Phone: Start: 10-21-2023 Plain X-ray of left elbow DO Ambika Benson Work Phone: Start: 09-22-2023 MRI of head DO Ambika Benson Work Phone: Start: 10-21-2022 Local anesthetic sac ral epidural block Elenita Lazar Comment on above: 10% relief Start: 07-01-2022 Local anesthetic sac ral epidural block Elenita [employer] Comment on above: patient fell soon af ter injection and can not provide relief Start: 04-08-2022 Epidural injection o f cervical spine using fluoroscopic guidance Elenita [employer] Comment on above: C7/T1 0% relief Start: 02-18-2022 MRI of cervical spin e without contrast DO Ambika Benson Work Phone: Start: 02-18-2022 X-ray of cervical spine DO Ambika Stovermagaly Work Phone: Start: 02-17-2022 Local anesthetic sac ral epidural block Elenita [employer] Comment on above: 100% relief for 24 h ours Start: 12-11-2021 MR thoracic spine wo con DO Ambika Benson Work Phone: Start: 09-10-2021 Local anesthetic sac ral epidural block Elenita [employer] Comment on above: 85% Start: 04-29-2021 Local anesthetic sac ral epidural block Elenita [employer] Comment on above: 75% relief Start: 03-18-2021 Epidural injection o f cervical spine using fluoroscopic guidance [employer] Comment on above: C6/7 90% relief Start: 09-17-2020 Local anesthetic sac ral epidural block Elenita [employer] Comment on above: 100% relief x 10 day s then down to 50% (present) Start: 05-14-2020 Local anesthetic sac ral epidural block Elenita [employer] Comment on above: 90% relief Start: 10-25-2019 Epidural injection o f lumbar spine using fluoroscopic guidance [email or web address] Comment on above: caudal 75-80% relief to present Start: 05-16-2019 Local anesthetic sac ral epidural block Elenita [employer] Comment on above: 95% relief to presen t Start: 11-15-2018 Injection of sacroil iac joint using fluoroscopic guidance [email or web address] Comment on above: left side- 50% pain relief Start: 12-28-2017 spinal cord stimulat or implant 10 [email or web address] Comment on above: 70% relief Start: 12-28-2017 spinal cord stimulat or implant 11 [email or web address] Comment on above: 70% relief Start: 12-28-2017 spinal cord stimulat or implant 13 [email or web address] Comment on above: 70% relief Start: 12-28-2017 spinal cord stimulat or implant 8 Elenita [employer] Comment on above: 70% relief Start: 12-28-2017 spinal cord stimulat or implant 9 [email or web address] Comment on above: 70% relief Start: 10-26-2017 scs 10 Elenita [employer] Comment on above: 99% relief still. Start: 10-26-2017 scs 11 Elenita Spr [employer] Comment on above: 99% relief still. Start: 10-26-2017 scs 12 Elenita Spr citlalli Comment on above: 99% relief still. Start: 10-26-2017 scs 14 Elenita Spr Lex[employer] Comment on above: 99% relief still. Start: 10-26-2017 scs 9 Elenita Spr Lexim Comment on above: 99% relief still. Start: 05-20-2017 Local anesthetic sac ral epidural block [email or web address] Comment on above: 30% relief starting day 2 after injection. Pt. reports still getting 30% relief. Start: 02-16-2017 Radiofrequency ablat ion of medial branch of lumbar nerve using fluoroscopic guidance [email or web address] Comment on above: right L3-S1 80% reli ef for three weeks Start: 02-04-2017 Radiofrequency ablat ion of medial branch of lumbar nerve using fluoroscopic guidance [email or web address] Comment on above: Left L3-S1 80% for t hree weeks Start: 01-09-2017 Medial Branch Block 13, 14 [employer] Comment on above: 80% relief x 3-4 day s Bilateral L3-S1 Start: 01-09-2017 Medial Branch Block 14, 15 [employer] Comment on above: 80% relief x 3-4 day s Bilateral L3-S1 Start: 01-09-2017 Medial Branch Block 15, 16 Elenita [employer] Comment on above: 80% relief x 3-4 day s Bilateral L3-S1 Start: 01-09-2017 Medial Branch Block 16, 17 [employer] Comment on above: 80% relief x 3-4 day s Bilateral L3-S1 Start: 01-09-2017 Medial Branch Block 18, 19 [email or web address] Comment on above: 80% relief x 3-4 day s Bilateral L3-S1 Start: 12-22-2016 Medial branch block 15 [employer] Comment on above: B/L L3-S1 80% for 3- 4 days Start: 12-22-2016 Medial branch block 16 [email or web address] Comment on above: B/L L3-S1 80% for 3- 4 days Start: 12-22-2016 Medial branch block 17 [email or web address] Comment on above: B/L L3-S1 80% for 3- 4 days Start: 12-22-2016 Medial branch block 18 [employer] Comment on above: B/L L3-S1 80% for 3- 4 days Start: 12-22-2016 Medial branch block 20 [employer] Comment on above: B/L L3-S1 80% for 3- 4 days Start: 04-07-2016 spinal cord explant 16 [email or web address] Comment on above: spinal cord explant Start: 04-07-2016 spinal cord explant 17 [email or web address] Comment on above: spinal cord explant Start: 04-07-2016 spinal cord explant 18 [employer] Comment on above: spinal cord explant Start: 04-07-2016 spinal cord explant 19 Elenita [employer] Comment on above: spinal cord explant Start: 04-07-2016 spinal cord explant 21 Elenita [employer] Comment on above: spinal cord explant Start: 12-28-2015 Iman Christel Wise on [employer] ATTENDANT-S Work Phone: Start: 10-04-2015 TFESI 17 Elenita Spr citl[employer] Comment on above: TFESI-O% Start: 10-04-2015 TFESI 18 Elenita Spr citlalli Comment on above: TFESI-O% Start: 10-04-2015 TFESI 19 Elenita Spr citlalli Comment on above: TFESI-O% Start: 10-04-2015 TFESI 20 Elenita Spr citlalli Comment on above: TFESI-O% Start: 10-04-2015 TFESI 22 Elenita Spr citlalli Comment on above: TFESI-O% Start: 09-24-2015 Radiofrequency ablat ion of medial branch of lumbar nerve using fluoroscopic guidance [email or web address] Comment on above: LEFT RFA L2,L3,L4,L5 -S1 75% RELIEF Start: 09-10-2015 Radiofrequency ablat ion of medial branch of lumbar nerve using fluoroscopic guidance [email or web address] Comment on above: RIGHT RFA, L2,L3,L4, L5-S1, 60% RELIEF Start: 06-18-2015 Injection of facet j oint using fluoroscopic guidance [email or web address] Comment on above: Bilateral FJI L3-S1- -10% relief overall Start: 04-30-2015 Extraction of cataract [email or web address] Comment on above: Rt. eye Start: 03-16-2015 Injection of facet j oint using fluoroscopic guidance [email or web address] Comment on above: Bilat Lumbar FJI L3- S1 Start: 10-31-2013 CAUDAL MOLLY 23 Elenita Sp ringer Comment on above: L5-S1 Start: 10-31-2013 CAUDAL MOLLY 24 Elenita Sp ringer Comment on above: L5-S1 Start: 10-31-2013 CAUDAL MOLLY 25 Elenita Sp ringer Comment on above: L5-S1 Start: 10-31-2013 CAUDAL MOLLY 26 Elenita Sp ringer Comment on above: L5-S1 Start: 10-31-2013 CAUDAL MOLLY 28 Elenita Sp ringer Comment on above: L5-S1 Start: 03-11-2013 CAUDAL MOLLY Elenita Spr citlalli Start: 09-13-2012 SNRB 24 Elenita Spr citlalli Comment on above: B/L L4-L5 WITH BOTOX 100 UNITS Start: 09-13-2012 SNRB 25 Elenita Spr citlalli Comment on above: B/L L4-L5 WITH BOTOX 100 UNITS Start: 09-13-2012 SNRB 26 Elenita Spr citlalli Comment on above: B/L L4-L5 WITH BOTOX 100 UNITS Start: 09-13-2012 SNRB 27 Elenita Spr citlalli Comment on above: B/L L4-L5 WITH BOTOX 100 UNITS Start: 09-13-2012 SNRB 29 Elenita Spr citlalli Comment on above: B/L L4-L5 WITH BOTOX 100 UNITS Start: 07-09-2012 SNRB 25 Elenita Spr citlalli Comment on above: LEFT L4-L5 Start: 07-09-2012 SNRB 26 Elenita Spr citlalli Comment on above: LEFT L4-L5 Start: 07-09-2012 SNRB 27 Elenita Spr citlalli Comment on above: LEFT L4-L5 Start: 07-09-2012 SNRB 28 Elenita Spr citlalli Comment on above: LEFT L4-L5 Start: 07-09-2012 SNRB 30 Elenita Spr citlalli Comment on above: LEFT L4-L5 Start: 05-24-2012 Radiofrequency ablat ion of medial branch of thoracic nerve using fluoroscopic guidance Elenita Lazar Comment on above: LEFT L3-L5 Start: 02-09-2012 SNRB 27 Elenita Spr citlalli Comment on above: LEFT L3-L4 Start: 02-09-2012 SNRB 28 Elenita Spr citlalli Comment on above: LEFT L3-L4 Start: 02-09-2012 SNRB 29 Elenita Spr citlalli Comment on above: LEFT L3-L4 Start: 02-09-2012 SNRB 30 Elenita Spr citlalli Comment on above: LEFT L3-L4 Start: 02-09-2012 SNRB 32 Elenita Spr citlalli Comment on above: LEFT L3-L4 Start: 05-30-2011 SNRB 28 Elenita Spr citlalli Comment on above: LEFT L3-L4 Start: 05-30-2011 SNRB 29 Elenita Spr citlalli Comment on above: LEFT L3-L4 Start: 05-30-2011 SNRB 30 Elenita Spr citlalli Comment on above: LEFT L3-L4 Start: 05-30-2011 SNRB 31 Elenita Spr citlalli Comment on above: LEFT L3-L4 Start: 05-30-2011 SNRB 33 Elenita Spr citlalli Comment on above: LEFT L3-L4 Start: 03-10-2011 Implantation of neurostimulator in spine Elenita [employer] Start: 01-29-2011 Implantation of neurostimulator in spine Elenita [employer] Comment on above: 2 leads T8-T12 Start: 08-12-2010 caudal MOLLY 30 Elenita Sp ringer Comment on above: L5-S1 Start: 08-12-2010 caudal MOLLY 31 Elenita Sp ringer Comment on above: L5-S1 Start: 08-12-2010 caudal MOLLY 32 Elenita Sp ringer Comment on above: L5-S1 Start: 08-12-2010 caudal MOLLY 33 Elenita Sp ringer Comment on above: L5-S1 Start: 08-12-2010 caudal MOLLY 35 Elenita Sp ringer Comment on above: L5-S1 Start: 06-26-2010 Radiofrequency ablat ion of medial branch of lumbar nerve using fluoroscopic guidance [employer] Comment on above: LEFT L4-S1 Start: 05-22-2010 Injection of facet j oint using fluoroscopic guidance [employer] Comment on above: LEFT L3-S1 Start: 04-03-2010 Injection of facet j oint using fluoroscopic guidance [employer] Comment on above: LEFT L3-S1 Start: 03-08-2010 Injection of facet j oint using fluoroscopic guidance [employer] Comment on above: RIGHT L3-S1 Start: 02-01-2010 Injection of facet j oint using fluoroscopic guidance [employer] Comment on above: right L3-L5 Start: 05-11-2003 laminectomy Elenita Michael citlalli Cholecystectomy Elenita Atiya susan hiatal hernia Elenita Aston leblanc Respiratory Panel (PCR) DO Tatiana Benson Work Phone: Structure of eye pro per (body structure) Elenita [employer] Comment on above: right (torn retina) Tonsillectomy and adenoidectomy [employer] Comment on above: 1963 Plan of Treatment Date Care Activity Detail Author Start: 12-07-2033 Urine microalbumin profile DTaP,Tdap,Td Vaccine (2 - Td or Tdap) [facility] Start: 12-27-2025 Screening for malign ant neoplasm of colon [facility] Start: 03-01-2025 Medicare Annual Well ness (AWV) Medicare Annual Wellness (AWV) [facility] Start: 06-20-2024 End: 06-20-2024 Patient encounter procedure 06/20/2024 9:30 AM EST Office Visit Neurology [address] [place] [address] [place] [address] [place] [address] 3 Month Follow Up Neurology Comment on above: 3 Month Follow Up Start: 06-16-2024 End: 06-16-2024 Patient encounter procedure 06/16/2024 1:00 PM EST Office Visit [facility] [address] [place] [address] Lisa Benson, DO [address] [place] [address] [facility] [address] Start: 05-30-2024 End: 05-30-2024 Patient encounter procedure 05/30/2024 1:00 PM EST Office Visit [facility] [address] [place] [address] Lisa Benson, DO [address] [place] [address] [facility] [address] Start: 05-23-2024 [facility] Start: 05-16-2024 Referral to palliati ve care physician [facility] Start: 05-13-[address] [facility] Start: 05-09-[address] treatment [facility] Start: 05-03-2024 Referral to infectio us diseases physician [facility] Start: 05-02-[address] [facility] Start: 05-02-2024 Hospital admission [facility] Start: 04-29-2024 End: 04-29-2024 Patient encounter procedure [facility] Comment on above: Arrived Start: 04-20-2024 End: 04-20-2024 Patient encounter procedure 04/20/2024 12:20 PM EST Office Visit [facility] [address] [place] [address] Lisa Benson DO [address] [place] [address] [facility] Start: 03-31-2024 End: 03-31-2025 CBC W Auto Differential panel - Blood CBC and differential Lab Routine Prostate cancer screening Prediabetes Morbid obesity (CMS/HCC) MANUEL (obstructive sleep apnea) Spondylosis of lumbosacral spine without myelopathy Other chronic pain Expected: 03/31/2024 (Approximate), Expires: 03/31/2025 [facility] Comment on above: Expected: 03/31/2024 (Approximate), Expires: 03/31/2025 Start: 03-31-2024 End: 03-31-2025 Comprehensive metabolic 2000 panel - Serum or Plasma Comprehensive metabolic panel Lab Routine Prostate cancer screening Prediabetes Morbid obesity (CMS/HCC) MANUEL (obstructive sleep apnea) Spondylosis of lumbosacral spine without myelopathy Other chronic pain Expected: 03/31/2024 (Approximate), Expires: 03/31/2025 [facility] Work Phone: Comment on above: Expected: 03/31/2024 (Approximate), Expires: 03/31/2025 Start: 03-31-2024 End: 03-31-2025 Hemoglobin A1c/Hemoglobin.total in Blood Hemoglobin A1c Lab Routine Prediabetes Expected: 03/31/2024 (Approximate), Expires: 03/31/2025 [facility] Comment on above: Expected: 03/31/2024 (Approximate), Expires: 03/31/2025 Start: 03-31-2024 End: 03-31-2025 Prostate specific Ag [Mass/volume] in Serum or Plasma PSA Lab Routine Prostate cancer screening Expected: 03/31/2024 (Approximate), Expires: 03/31/2025 [facility] Comment on above: Expected: 03/31/2024 (Approximate), Expires: 03/31/2025 Start: 03-31-2024 End: 03-31-2024 Patient encounter procedure 03/31/2024 11:00 AM EST Office Visit [facility] [address] [place] [id number] Lisa Benson, DO [address] [place] [address] Arrived [facility] Comment on above: Arrived Start: 03-01-2024 End: 03-01-2024 Patient encounter procedure 03/01/2024 11:00 AM EDT Office Visit [facility] [facility] [address] [place] [id number] Lisa Benson, DO [address] [place] [address] Arrived [facility] Comment on above: Arrived Start: 02-22-2024 End: 02-22-2024 Patient encounter procedure 02/22/2024 1:20 PM EDT Office Visit [facility] [address] [place] [address] Koki Basilio PA [address] [place] [address] [facility] Start: 02-21-2024 Medicare Annual Well ness (AWV) Medicare Annual Wellness (AWV) [facility] Start: 02-10-2024 End: 02-10-2024 Professional / ancillary services management 02/10/2024 9:15 AM EDT Ancillary Procedure [facility] [address] [place] [id number] [facility] Start: 02-03-2024 End: 02-02-2025 US.doppler Carotid arteries - bilateral Vascular US carotid artery duplex bilateral Imaging Routine Frequent falls Vertigo Dizzy spells Expected: 02/03/2024, Expires: 02/02/2025 [facility] Work Phone: Comment on above: Expected: 02/03/2024 , Expires: 02/02/2025 Start: 02-03-2024 End: 02-03-2024 Patient encounter procedure 02/03/2024 11:20 AM EDT Office Visit [facility] [address] [place] [phone] Lisa Benson DO [address] [place] [address] Arrived [facility] Comment on above: Arrived Start: 01-20-2024 End: 01-20-2024 Patient encounter procedure 01/20/2024 8:20 AM EDT Office Visit [facility] [address] [facility] [address] [place] [id number] Laura Marin NP [address] [place] [address] [facility] Start: 01-11-2024 Plain chest X-ray XR chest 2V* [facility] Start: 01-11-2024 XR Chest 2 Views [facility] Start: 01-10-2024 CT cervical spine without contrast CT cervical spine wo [facility] Start: 01-10-2024 CT Cervical spine WO contrast [facility] Start: 01-10-2024 CT of head without contrast CT head/brain wo [facility] Start: 01-10-2024 CT Unspecified body region WO contrast [facility] Start: 01-10-2024 Covid-19 Vaccine ( season) Covid-19 Vaccine ( season) [facility] Start: 01-10-2024 Influenza vaccination Influenza Vacc ine (#1) [facility] Start: 01-06-2024 [facility] Start: 01-05-2024 [facility] Start: 01-04-2024 End: 01-03-2025 XR Chest 2 Views [facility] Work Phone: Comment on above: Expected: 01/04/2024 , Expires: 01/03/2025 Start: 01-04-2024 [facility] Start: 01-03-2024 [facility] Start: 01-02-2024 [facility] Start: 01-01-2024 [facility] Start: 12-31-2023 Comprehensive metabo lic 1999 panel - Serum or Plasma [facility] Start: 12-31-2023 [facility] Start: 12-30-2023 Comprehensive metabo lic 1999 panel - Serum or Plasma [facility] Start: 12-30-2023 [facility] Start: 12-29-[address] [facility] Start: 12-29-2023 Referral to occupati onal therapist [facility] Start: 12-29-2023 Comprehensive metabo lic 2000 panel - Serum or Plasma [facility] Start: 12-29-2023 End: 12-29-2023 [facility] Start: 12-28-2023 Comprehensive metabo lic 2000 panel - Serum or Plasma [facility] Start: 12-28-2023 [facility] Start: 12-27-2023 [facility] Start: 12-27-2023 Bacteria identified in Blood by Culture [facility] Start: 12-27-2023 Blood culture for bacteria, including anaerobic screen Blood Culture [facility] Start: 12-27-2023 Introduction of Remdesivir Anti-infective into Peripheral Vein, Percutaneous Approach, [employer] 5 Introduction of Remdesivir Anti-infective into Peripheral Vein, Percutaneous Approach, [employer] 5 [facility] Start: 12-27-2023 Urine culture Urine Culture [facility] Start: 12-27-2023 [facility] Start: 12-27-2023 Legionella pneumophi la Ag [Presence] in Urine [facility] Start: 12-27-2023 Microbial culture of sputum [facility] Start: 12-27-2023 End: 12-27-2023 [facility] Start: 12-27-2023 Hospital admission [facility] Start: 12-27-2023 CT of head without contrast CT head/brain wo con [facility] Start: 12-27-2023 CT Unspecified body region WO contrast [facility] Start: 12-27-2023 Plain chest X-ray XR chest 1V portab le [facility] Start: 12-27-2023 XR Chest Single view [facility] Start: 12-27-2023 [facility] Start: 2023 Chart abstracting 2023 A bstract [facility] [address] [place] [address] Jessica Parker, [place] [address] [place] [address] [facility] Start: 2023 End: 2023 Patient encounter procedure 2023 9:45 AM EST Office Visit [facility] [address] [place] [address] Jessica Parker, DPM [address] [place] [address] [facility] Start: 06-29-2023 End: 06-29-2023 Social Work 06/29/2023 12:00 PM EST Social Work [facility] [address] [place] [address] Christel De Dios LISW-S [address] [place] [address] [facility] Start: 06-22-2023 End: 06-22-2023 Patient encounter procedure 06/22/2023 9:45 AM EST Office Visit [facility] [address] [place] [address] Jessica Parker, DPM [address] [place] [address] [facility] Start: 06-15-2023 End: 06-15-2023 Social Work 06/15/2023 11:00 AM EST Social Work [facility] [address] [place] [address] Christel De Dios LISW-S [address] [place] [address] [facility] Start: 05-26-2023 Superficial Wound Culture Superficial Wound Culture [facility] Start: 05-11-2023 Advance Directive Discussion Advance Directive Discussion [facility] Start: 12-03-2022 Shingrix Vaccine (2 of 2) Shingrix Vaccine (2 of 2) [facility] Start: 12-27-2016 Screening for malign ant neoplasm of colon [facility] Start: 2016 RSV Vaccine (1 - Ris k 60-74 years 1-dose series) RSV Vaccine (1 - Risk 60-74 years 1-dose series) [facility] Start: 2011 Prostate specific antigen measurement Prostate Cancer Screening Discussion [facility] Start: 2001 Diabetes Screening Diabetes Screenin g [facility] Start: 2001 Screening for malign ant neoplasm of colon [facility] Start: 1991 Lipid panel Lipid Screening [facility] Start: 1986 Zoledronic acid therapy Alpha- 1 Antitrypsin Deficiency Screening [facility] Start: 1974 Annual PCP Team Plsql Developer gomez Disease Visit Annual PCP Team Chronic Disease Visit [facility] Start: 1974 Hepatitis C screening Hepatitis C Sc jenn [facility] Start: 1974 Spirometry Spirometry [facility] Start: 1956 Screening for malign ant neoplasm of colon [facility] Bacteria identified in Unspecified specimen by Aerobe culture [facility] Fibrin D-dimer [Presence] in Platelet poor plasma by Latex agglutination [facility] INR in Platelet poor plasma by Coagulation assay [facility] Legionella pneumophi la Ag [Presence] in Urine [facility] Patient Education [facility] Work Phone: Patient referral [facility] Work Phone: Prothrombin time (PT) [facility] Specimen source [Identifier] of Unspecified specimen [facility] Streptococcus pneumo niae Ag [Presence] in Unspecified specimen [facility] Immunizations Immunization Date Immunization Notes Care Provider Ziyad boo 02-03-2024 influenza, high dose seasonal, preservative-free Lisa Benson DO Work Phone: [facility] 12-08-2023 tetanus toxoid, redu timothy diphtheria toxoid, and acellular pertussis vaccine, adsorbed DO Ambika Ceci Benson Work Phone: [facility] 02-20-2023 Influenza, injectabl e, Madin Josephine Canine Kidney, preservative free, quadrivalent Christel Didion [employer] ATTENDANT[employer]S Work Phone: [facility] 02-20-2023 Pneumococcal Conjuga te PCV 20 Christel Didion [employer] ATTEND[employer]S Work Phone: [facility] 02-20-2023 influenza virus vacc ine, unspecified formulation Lisa Benson DO Work Phone: [facility] 10-08-2022 zoster vaccine recombinant Christel Didion [employer] ATTENDANT[employer]S Work Phone: [facility] 03-05-2022 Influenza, injectabl e, Madin [place] Canine Kidney, preservative free, quadrivalent Christel Didion [employer] ATTENDANT[employer]S Work Phone: [facility] 04-02-2021 influenza, injectabl e, quadrivalent, preservative free Christel Didion [employer] ATTENDANT[employer]S Work Phone: [facility] 08-10-2020 Moderna SARS-CoV-2 Vaccination Lisa Benson DO Work Phone: [facility] 08-09-2020 Moderna SARS-CoV-2 Vaccination Christel Didion [employer] ATTENDANT[employer]S Work Phone: [facility] 07-13-2020 Moderna SARS-CoV-2 Vaccination Lisa Benson DO Work Phone: [facility] 07-12-2020 Moderna SARS-CoV-2 Vaccination Christel Didion [employer] ATTENDANT[employer]S Work Phone: [facility] 02-24-2020 influenza, high dose seasonal, preservative-free Christel Didion [employer] ATTENDANT[employer]S Work Phone: [facility] 02-24-2020 influenza, injectabl e, quadrivalent, preservative free Christel Didion [employer] ATTENDANT[employer]S Work Phone: [facility] 03-16-2019 Influenza, injectabl e, Madin [place] Canine Kidney, quadrivalent with preservative Christel Didion [employer] ATTENDANT[employer]S Work Phone: [facility] 03-16-2019 Influenza, injectabl e, Madin [place] Canine Kidney, preservative free, quadrivalent Christel Didion [employer] ATTENDANT[employer]S Work Phone: [facility] 02-08-2018 influenza, injectabl e, quadrivalent, preservative free Christel Didion [employer] ATTENDANT[employer]S Work Phone: [facility] 02-17-2017 Influenza, injectabl e, Madin [place] Canine Kidney, preservative free, quadrivalent Christel Didion [employer] ATTENDANT[employer]S Work Phone: [facility] 02-15-2017 influenza, seasonal, injectable, preservative free Christel Didion [employer] ATTENDANT[employer]S Work Phone: [facility] 12-18-2016 pneumococcal conjuga te vaccine, 13 valent Christel Didion [employer] ATTENDANT[employer]S Work Phone: [facility] 07-19-2015 influenza, seasonal, injectable, preservative free Christel Didion [employer] ATTEND[employer]S Work Phone: [facility] 07-19-2015 seasonal influenza, intradermal, preservative free Christel Didion [employer] ATTENDANT[employer]S Work Phone: [facility] 01-28-2014 seasonal influenza, intradermal, preservative free Christel Didion [employer] ATTEND[employer]S Work Phone: [facility] 04-21-2013 pneumococcal polysaccharide vaccine, 23 valent Christel Didion [employer]END[employer]S Work Phone: [facility] Payers Date Payer Category Payer Medicare [id number] 2023 Self-pay [id number] 2023 Medicare (Managed Care) [employer] [id number] 2023 Unknown [employer] D [employer] [id number] 2023-Present [address] [place] [address] [id number] .2.7.3.852846.315 2023 Medicare [id number] 2022 Unknown [id number] 2021 Private Health Insurance [id number] 2011 Medicare [id number]. 1.13.693 .2.7.3.864495.315 1956 Unknown [id number] 2.16.840.1.375971.3.579 .2.727 1956 Unknown [id number] 2.16.840.1.779992.3.579 .2.727 1956 Unknown [id number] 2.16.840.1.696136.3.579 .2.727 1956 Unknown [id number] 2.16.840.1.752577.3.579 .2. 1956 Unknown [id number] 2.16.840.1.712282.3.579 .2. 1956 Unknown [id number] 2.16.840.1.468689.3.579 .2. 1956 Unknown [id number] 2.16.840.1.600497.3.579 .2. 1956 Unknown [id number] 2.16.840.1.832706.3.579 .2. 1956 Unknown [id number] 2.16.840.1.714707.3.579 .2. 1956 Unknown [id number] 2.16.840.1.496142.3.579 .2. 1956 Unknown [id number] 2.16.840.1.893499.3.579 .2. 1956 Unknown [id number] 2.16.840.1.475045.3.579 .2.1258 1956 Unknown [id number] 2.16.840.1.565655.3.579 .2.1258 1956 Unknown [id number] 2.16.840.1.589342.3.579 .2.1258 1956 Unknown [id number] 2.16.840.1.640535.3.579 .2.1258 1956 Unknown [id number] 2.16.840.1.030995.3.579 .2.1258 1956 Unknown [id number] 2.16.840.1.171100.3.579 .2.1258 1956 Unknown [id number] 2.16.840.1.663994.3.579 .2.1259 1956 Unknown [id number] 2.16.840.1.619777.3.579 .2.1258 1956 Unknown [id number] 2.16.840.1.408900.3.579 .2.1258 1956 Unknown [id number] 2.16.840.1.076299.3.579 .2.1258 1956 Unknown [id number] 2.16.840.1.942745.3.579 .2.1258 1956 Unknown [id number] 2.16.840.1.769652.3.579 .2.1258 1956 Unknown [id number] 2.16.840.1.162155.3.579 .2.1258 1956 Unknown [id number] 2.16.840.1.816654.3.579 .2.1258 1956 Unknown [id number] 2.16.840.1.235311.3.579 .2.1258 1956 Unknown [id number] 2.16.840.1.495091.3.579 .2.1258 1956 Unknown [id number] 2.16.840.1.261386.3.579 .2.1258 1956 Unknown [id number] 2.16.840.1.961046.3.579 .2.1258 1956 Unknown [id number] 2.16.840.1.502100.3.579 .2.1258 1956 Unknown [id number] 2.16.840.1.540828.3.579 .2.1258 1956 Unknown [id number] 2.16.840.1.405586.3.579 .2.1258 1956 Unknown [id number] 2.16.840.1.395709.3.579 .2.1258 1956 Unknown [id number] 2.16.840.1.494762.3.579 .2.1258 1956 Unknown [id number] 2.16.840.1.618903.3.579 .2.1258 1956 Unknown [id number] 2.16.840.1.894544.3.579 .2.1258 1956 Unknown [id number] 2.16.840.1.627775.3.579 .2.1258 1956 Unknown [id number] 2.16.840.1.353594.3.579 .2.1258 1956 Unknown [id number] 2.16.840.1.192791.3.579 .2.1258 1956 Unknown [id number] 2.16.840.1.536954.3.579 .2.1258 1956 Unknown [id number] 2.16.840.1.880452.3.579 .2.1258 1956 Unknown [id number] 2.16.840.1.540388.3.579 .2.1258 1956 Unknown [id number] 2.16.840.1.903450.3.579 .2.1258 1956 Unknown [id number] 2.16.840.1.579205.3.579 .2.1258 1956 Unknown [id number] 2.16.840.1.590206.3.579 .2.1258 1956 Unknown [id number] 2.16.840.1.909232.3.579 .2.1258 1956 Unknown [id number] 2.16.840.1.673473.3.579 .2.1258 1956 Unknown [id number] 2.16.840.1.514056.3.579 .2.1258 1956 Unknown [id number] 2.16.840.1.471990.3.579 .2.1258 Unknown [place] BC/[employer] [id number] Unknown [place] [facility] PFFS [id number] Unknown [id number] 2.16.840.1.035890.3.579 .2.531 Unknown [id number] 2.16.840.1.845962.3.579 .2.531 Unknown [id number] 2.16.840.1.889481.3.579 .2.531 Unknown [id number] 2.16.840.1.673696.3.579 .2.531 Unknown [id number] 2.16.840.1.868587.3.579 .2.531 Unknown [id number] 2.16.840.1.705759.3.579 .2.531 Unknown [id number] 2.16.840.1.115498.3.579 .2.531 Social History Date Type Detail Facility Start: 01-24-2016 End: 10-20-2022 Tobacco smoking status Never smoked tobacco (finding) [facility] Start: 02-18-2023 End: 03-01-2024 Sex Assigned At Male [facility] Start: 1955 Sex Assigned At Male [facility] Start: 07-16-2012 End: 10-20-2022 Tobacco use and exposure Smokeless tobacco non-user [facility] Start: 06-14-2023 End: 04-29-2024 Alcohol intake Lifetime non-drinker (finding) [facility] Start: 02-18-2023 End: 03-01-2024 History of Social function [facility] Within the last year , have you been afraid of your partner or ex-partner? No [facility] Do you belong to any clubs or organizations such as muslim groups, unions, fraternal or athletic groups, or school groups? Patient refused [facility] Are you now , , , , never or living with a partner? [facility] How often to you hav e a drink containing alcohol? Never [facility] How hard is it for y ou to pay for the very basics like food, housing, medical care, and heating Somewhat hard [facility] Do you feel stress - tense, restless, nervous, or anxious, or unable to sleep at night because your mind is troubled all the time - these days [OSQ] Only a little [facility] (I/We) worried wheth er (my/our) food would run out before (I/we) got money to buy more. Sometimes true [facility] The food that (I/we) bought just didn't last, and (I/we) didn't have money to get more. Often true [facility] Start: 11-05-2022 Alcohol Comment caffeine intak e : 2-3 cups per day soda/pop intake daily [facility] Start: 1955 Sex Assigned At Not on file [facility] Start: 12-27-2023 End: 01-10-2024 Tobacco smoking status NHIS Ex-smoker (finding) [facility] Start: 03-18-2024 Alcoholic beverage intake Current non-drinker of alcohol (finding) [facility] Start: 07-21-2012 Alcohol Comment occasionally [facility] How often to you hav e a drink containing alcohol? Monthly or less [facility] How many standard drinks containing alcohol do you have on a typical day? 1 or 2 [facility] In the past 12 month s, was there a time when you were not able to pay the mortgage or rent on time? Yes [facility] Start: 05-23-2024 Sex Male (finding) [facility] NEGATED: Highlighted rowStart: NINF History of tobacco use Passive smoker [facility] Goals Date Patient Goal Desired Activity /State Functional Status Date Assessment Result Facility 05-23-2024 Functional status Patient is Pro gressing Toward Baseline [facility] Work Phone: 12-29-2023 Functional status Patient at Baseline [facility] Work Phone: 12-24-2022 Functional Status N[facility]A [facility] 11-26-2022 Functional Status N/A [facility] 07-23-2022 Functional Status N/A [facility] 07-01-2022 Functional Status N/A [facility] 05-28-2022 Functional Status N/A [facility] 04-08-2022 Functional Status N/A [facility] 03-07-2022 Functional Status N/A [facility] 02-17-2022 Functional Status N/A [facility] 01-29-2022 Functional Status N/A [facility] 11-27-2021 Functional Status N/A [facility] Mental Status Date Assessment Result Facility 05-23-2024 Cognitive function Cognitive Sta tus Patient is Progressing Toward Baseline [facility] Work Phone: 12-29-2023 Cognitive function Cognitive Sta tus Patient at Baseline [facility] Work Phone: Clinical Notes 08-16-2021 to 05-23-2024 Note Date & Type Note Facility 05-23-2024 Discharge summary Note Date/Time May 23, 2024 1:04pm [facility] [address] [place] [address] Discharge Summary Signed Patient: Juan Simon MR#: [id number] : 1955 Acct:[id number] Age/Sex: 68 / M Adm Date: 4 Loc: Room: [address] [place] [address]: Shira Nath MD Copies to: Tatiana Benson Jr, DO Shira Nath MD~ Providers Date of Discharge: 05/23/24 Discharging Provider: Shira Nath Primary Care Provider: Ambika Benson Consults: 05/02/24 17:28 Consult to Cardiology Routine Comment: Consulting Provider: Juanito Solis Reason For Exam: new afib rvr Has Provider Been Notified: Yes Date of Notification: 05/02/24 Time of Notification: 17:49 Consult to Neurology Routine Comment: Consulting Provider: Jesus Fraser Reason For Exam: AMS Has Provider Been Notified: Yes Date of Notification: 05/02/24 Time of Notification: 17:56 05/03/24 12:14 Consult to Infectious Diseases Routine Comment: Consulting Provider: Moris Younger Reason For Exam: bactermia Has Provider Been Notified: Yes Date of Notification: 05/03/24 Time of Notification: 13:21 Extended Comment: already notificed 05/05/24 07:36 Consult to Occupational Therapy Routine Comment: Physician Instructions: Consult to OT for:: Evaluation and Treat Consult to Physical Therapy Routine Comment: Physician Instructions: Consult to PT for:: Evaluation and Treat 05/07/24 13:20 Consult to Cardiology Routine Comment: Consulting Provider: Lisa Epps Reason For Exam: recurrent afib RVR Has Provider Been Notified: Yes Date of Notification: 05/07/24 Time of Notification: 14:20 05/08/24 17:49 Consult to Speech Therapy Routine Comment: Reason for ST Consult: Bedside Swallow Eval & Tx Diet per ST Recommendations: Yes Contact Physician Before Ordering Diet: No Modified Barium Swallow Study, If Recommended: Yes 05/09/24 12:53 Consult to Pulmonology Routine Comment: Consulting Provider: Miladis Rodriguez Reason For Exam: Re consult for resp failure and PNA Has Provider Been Notified: Yes Date of Notification: 05/09/24 Time of Notification: 13:27 05/13/24 07:10 Consult to Neurology Routine Comment: Consulting Provider: Jimmy Gonzalez Reason For Exam: seizure Has Provider Been Notified: Yes Date of Notification: 05/13/24 Time of Notification: 08:34 05/13/24 14:34 Consult to Occupational Therapy Routine Comment: Physician Instructions: Consult to OT for:: Evaluation and Treat Consult to Physical Therapy Routine Comment: Physician Instructions: Consult to PT for:: Evaluation and Treat 05/16/24 13:59 Consult to Palliative Care Doctor Routine Comment: Consulting Provider: Jesus Ribeiro Reason For Exam: GOC Has Provider Been Notified: Yes Date of Notification: 05/16/24 Time of Notification: 14:10 Discharge Diagnosis (1) Atrial fibrillation with rapid ventricular response: (2) Bacteremia due to group B Streptococcus: (3) Sepsis: (4) Urinary tract infection: (5) Acute hypoxic respiratory failure: (6) Pneumonia: Final Diagnosis Final Discharge Diagnosis: as above Summary Hospital Course Hospital course: Mr. Simon 66-year-old male with past medical history significant for asthma,celiac disease, DJD, chronic back pain status post spinal cord stimulator with nerve ablations, frequent falls, migraines, MANUEL. He presented to the ED with acute mental status change and was found to have A-fib with RVR and sepsis on May 02, 2024. Patient has seen multiple subspecialists?including pulmonary/critical care, infectious disease, cardiology, neurology. He has had problems with delirium and confusion during his hospitalization. He was treatedwith antibiotics for sepsis/bacteremia. His CODE STATUS was full code. Unfortunately, he has initially failed to improve significantly with his respiratory status and he was on maximal high flow O2 settings?100% FiO2, 40 L/min. Initial Plans were for transfer to LTAC, possibly this week. Palliativemedicine was consulted to help with goals of care and with advance care planning. Patient code status was changed DNR CCA without intubation. Patient had prolonged hospital course due to his complex medical condition. Mostly due to worsening respiratory status and high oxygen requirement of high flow nasal cannula alternating with BiPAP at nighttime. Patient has completed course of antibiotics, Received course of steroids here and currently on taper of steroids. Pulmonary followed, added diuretics with Diamox to help to lower bicarb levels, also added diuretics, patient responded well to that and oxygen requirements started to come down. Patient currently has been maintaining 2 L NC. Had large BM today after been constipated. Specialists inputs appreciated. Recs by specialists been implemented. CM followed and patient has been acceptedto SNF. Patient is stable for discharge at this time. Discussed with patient at bedside, question answered, patient in agreement and comfortable with discharge plan. Patient has multiple complex medical issues as listed above and others that are not listed. All appear to be stable at this time. Patient is feeling significantly better and feeling comfortable with this plan of discharge. I do not have any clear or strong clinical justification to extend inpatient hospitalization. Patient however will require close and the frequent monitoringas well as additional work-up, investigation and therapeutic intervention that could take place from this point on post discharge. That is to prevent relapse,decompensation, rehospitalization and other medical implications. Outpatient follow up as directed for continuity of care. Verbal and written discharge instructions will be provided to the patient. Condition Condition at Discharge: Stable Time Spent with Patient Time spent providing/coordinating discharge services (# min): 58 Discharge Plan Discharge Plan Patient Disposition: Nursing Home Facility Activity: Ambulate as Tolerated Diet: Other Comment: Gluten free Additional Instructions: SNF to manage: -PT/OT to eval and treat -Monitor VS per protocol -Fall precautions -Perform cardiovascular, genitourinary and respiratory assessments -Monitor for increased signs of infection -Dietitian recommendations: *Ensure plus, 1 container, daily with meal -Monitor FSBS ACHS -See speech therapy recommendations in discharge packet -Continue use of incentive spirometry every 4 hours as tolerated -Change dressing every 3 days: *Mepilex border foam to Coccyx for protection. -Care to be managed by SNF providers. Instructions: Atrial fibrillation Prescriptions: New acetaminophen [Tylenol] 325 mg Tablet 650 mg PO Q6H PRN (Reason: Pain 1-5 or fever) Qty: 0 0RF divalproex 250 mg Tablet,Delayed Release (Dr/Ec) 250 mg PO BID Qty: 0 0RF diltiazem HCl 180 mg Capsule,Extended Release 24hr 180 mg PO DAILY Qty: 0 0RF aspirin 81 mg Tablet,Delayed Release (Dr/Ec) 81 mg PO DAILY Qty: 0 0RF bisacodyl 10 mg Suppository 10 mg RI DAILY PRN (Reason: Constipation) Qty: 0 0RF bumetanide 1 mg Tablet 1 mg PO DAILY@0800 Qty: 0 0RF insulin aspart U-100 100 unit/mL (3 mL) Insulin Pen See Protocol subcut TID.WM.HS Qty: 0 0RF Protocol: Corrective Scale #3 (TDI 51-75 UNITS) Condition: Corrective Scale #3 (TDI 51-75 UNITS) Condition: Dose/Route: Instruction: Condition: Fingerstick Blood Glucose Dose/Route: Insulin Units Condition: 150-199 mg/dl Dose/Route: 3 unit Condition: 200-249 mg/dl Dose/Route: 4 unit Condition: 250-299 mg/dl Dose/Route: 7 unit Condition: 300-349 mg/dl Dose/Route: 10 unit Condition: 350-399 mg/dl Dose/Route: 12 unit Condition: greater than or = 400 mg/dl Dose/Route: 14 unit Instruction: Call Provider Protocol Text: *If the corrective scale dose has been administered within the past 4 hours, do not use corrective scale again unless approved by prescriber* duloxetine 60 mg Capsule,Delayed Release(Dr/Ec) 60 mg PO DAILY Qty: 0 0RF magnesium oxide 400 mg (241.3 mg magnesium) Tablet 400 mg PO BID Qty: 0 0RF Humulin N NPH Insulin KwikPen 100 unit/mL (3 mL) Insulin Pen 12 unit subcut BID Qty: 0 0RF prednisone 10 mg Tablet 20 mg PO DAILY Qty: 0 0RF Taper: pred test 40 mg Daily for 2 Days and 0 Hour 20 mg Daily for 3 Days and 0 Hour 10 mg Daily for 7 Days and 0 Hour polyethylene glycol 3350 [HealthyLax] 17 gram Powder In Packet 17 g PO DAILY PRN (Reason: Constipation) Qty: 0 0RF metoprolol succinate 50 mg Tablet Extended Release 24 Hr 37.5 mg PO BID Qty: 0 0RF quetiapine 25 mg Tablet 25 mg PO QHS Qty: 0 0RF Continued albuterol sulfate 2.5 mg /3 mL (0.083 %) Solution For Nebulization 2.5 mg inhalation Q2H PRN (Reason: shortness of breath or wheezing) fluticasone propion-salmeterol 500-50 mcg/dose blister with device 1 inh inhalation BID Patient Comments: montelukast 10 mg Tablet 10 mg PO HS albuterol sulfate [Proventil HFA] 90 mcg/actuation Hfa Aerosol Inhaler 2 puff inhalation Q2H PRN (Reason: shortness of breath or wheezing) nystatin 100,000 unit/mL suspension 400,000 unit PO QID 7 Days Qty: 112 0RF Rx Instructions: swish in the mouth and retain for as long as possible (several minutes) before swallowing Discontinued cyclobenzaprine 10 mg Tablet 10 mg PO TID divalproex 250 mg Tablet,Delayed Release (Dr/Ec) 500 mg PO HS atenolol 25 mg Tablet 25 mg PO DAILY indomethacin 25 mg Capsule 25 mg PO .QD celecoxib 200 mg capsule 200 mg PO DAILY Rx Instructions: FreeTextSi capsule Orally BID; Note: Source Status: Taking; Provider: Faye Mcdonald ( ) doxepin 25 mg capsule 25 mg PO HS duloxetine 30 mg capsule,delayed release(DR/EC) 30 mg PO BID meclizine 25 mg tablet 25 mg PO TID PRN (Reason: dizziness) phentermine 37.5 mg tablet 37.5 mg PO DAILY Follow Up: [facility] - [facility] [Outside] (Call if needed. ) Ambika Benson, [Primary Care Provider] - (Follow-up with your Primary Care Provider after discharge from SNF) Lisa Epps MD [Active Staff] - 06/21/24 10:40 am Exam Physical Exam Vital Signs: Temp Pulse Resp BP Pulse Ox O2 Del Method O2 Flow Rate 97.9 F 92 20 105/64 98 Room Air 2 05/23/24 11:15 05/23/24 11:15 05/23/24 11:15 05/23/24 11:15 05/23/24 11:15 05/23/24 11:15 05/23/24 08:00 FiO2 65 05/20/24 01:13 Narrative: Const General: cooperative, on nasal cannula HEENT Normal oropharyngeal mucosa without any ulcers or exudates Eyes: Conjunctiva normal Pulmonary Auscultation: diminished breath sounds, no crackles, no wheezes Cardiovascular Rate: normal rate Rhythm: regular rhythm Heart Sounds: S1 normal, S2 normal and no murmurs GI Inspection: non-distended Palpation: soft, not firm and nontender. No rigidity or rebound. Deferred Neuro General: alert, awake and oriented to self, states his name, oriented to place, not oriented to exact year or [place] president. No obvious new focal deficit Musculoskeletal: normal range of motion Extrem General: no cyanosis, trace pedal edema Psych Appearance: Calm, cooperative. Diagnostic Studies Completed and Pending Studies Labs on day of discharge: 05/23/24 11:35: POC Glucose 208, POC Glucose Comment Glu2: cleaned meter 05/23/24 07:31: POC Glucose 77, POC Glucose Comment Glu2: cleaned meter 05/23/24 04:03: Corrected WBC 20.1 H, Uncorrected WBC Count 20.1 H, RBC 3.27 L, Hgb 10.9 L, Hct 31.5 L, MCV 96.6, MCH 33.5, MCHC 34.7, RDW 16.8 H, Plt Count 303, MPV 7.9, Neut % (Auto) 80.6, Lymph % (Auto) 11.4, [place] % (Auto) 6.9, Eos % (Auto) 0.4, Baso % (Auto) 0.7, Nucleat RBC Rel Count 0.1, Neut # (Auto) 16.1 H, Lymph # (Auto) 2.3, [place] # (Auto) 1.4 H, Eos # (Auto) 0.1, Baso # (Auto) 0.1, PHA Creatinine Clear 78.86, Sodium 139, Potassium 3.6, Chloride 99, Carbon Dioxide 33.1 H, Anion Gap 10.5, BUN 44 H, Creatinine 0.92, Est GFR (CKD-EPI) > 60.0, Glucose 85, Calcium 8.7, Total Bilirubin 1.6 H, AST 19, ALT 34, Alkaline Phosphatase 72, Total Protein 5.1 L, Albumin 3.2 L, Globulin 1.9, Albumin/Globulin Ratio 1.7 05/22/24 20:27: POC Glucose 171 05/22/24 16:29: POC Glucose 184 Documented By: Shira Nath MD 05/23/24 12 56 Signed By: <Electronically signed by Shira Nath MD> 05/23/[address] [place] [address] Work Phone: [phone] [phone] [place] [id number] Discharge Summary Signed Patient: Juan Simon MR#: [id number] : 1955 Acct:[id number] Age/Sex: 68 / M Adm Date: 4 Loc: Room: [address] [place] [address]: Shira Nath MD Copies to: Tatiana Benson Jr, DO Shira Nath MD~ Providers Date of Discharge: 05/23/24 Discharging Provider: Shira Nath Primary Care Provider: Ambika Benson Consults: 05/02/24 17:28 Consult to Cardiology Routine Comment: Consulting Provider: Juanito Solis Reason For Exam: new afib rvr Has Provider Been Notified: Yes Date of Notification: 05/02/24 Time of Notification: 17:49 Consult to Neurology Routine Comment: Consulting Provider: Jesus Fraser Reason For Exam: AMS Has Provider Been Notified: Yes Date of Notification: 05/02/24 Time of Notification: 17:56 05/03/24 12:14 Consult to Infectious Diseases Routine Comment: Consulting Provider: Moris Younger Reason For Exam: bactermia Has Provider Been Notified: Yes Date of Notification: 05/03/24 Time of Notification: 13:21 Extended Comment: already notificed 05/05/24 07:36 Consult to Occupational Therapy Routine Comment: Physician Instructions: Consult to OT for:: Evaluation and Treat Consult to Physical Therapy Routine Comment: Physician Instructions: Consult to PT for:: Evaluation and Treat 05/07/24 13:20 Consult to Cardiology Routine Comment: Consulting Provider: Lisa Epps Reason For Exam: recurrent afib RVR Has Provider Been Notified: Yes Date of Notification: 05/07/24 Time of Notification: 14:20 05/08/24 17:49 Consult to Speech Therapy Routine Comment: Reason for ST Consult: Bedside Swallow Eval & Tx Diet per ST Recommendations: Yes Contact Physician Before Ordering Diet: No Modified Barium Swallow Study, If Recommended: Yes 05/09/24 12:53 Consult to Pulmonology Routine Comment: Consulting Provider: Miladis Rodriguez Reason For Exam: Re consult for resp failure and PNA Has Provider Been Notified: Yes Date of Notification: 05/09/24 Time of Notification: 13:27 05/13/24 07:10 Consult to Neurology Routine Comment: Consulting Provider: Jimmy Gonzalez Reason For Exam: seizure Has Provider Been Notified: Yes Date of Notification: 05/13/24 Time of Notification: 08:34 05/13/24 14:34 Consult to Occupational Therapy Routine Comment: Physician Instructions: Consult to OT for:: Evaluation and Treat Consult to Physical Therapy Routine Comment: Physician Instructions: Consult to PT for:: Evaluation and Treat 05/16/24 13:59 Consult to Palliative Care Doctor Routine Comment: Consulting Provider: Jesus Ribeiro Reason For Exam: GOC Has Provider Been Notified: Yes Date of Notification: 05/16/24 Time of Notification: 14:10 Discharge Diagnosis (1) Atrial fibrillation with rapid ventricular response: (2) Bacteremia due to group B Streptococcus: (3) Sepsis: (4) Urinary tract infection: (5) Acute hypoxic respiratory failure: (6) Pneumonia: Final Diagnosis Final Discharge Diagnosis: as above Summary Hospital Course Hospital course: Mr. Simon 66-year-old male with past medical history significant for asthma,celiac disease, DJD, chronic back pain status post spinal cord stimulator with nerve ablations, frequent falls, migraines, MANUEL. He presented to the ED with acute mental status change and was found to have A-fib with RVRand sepsis on May 02, 2024. Patient has seen multiple subspecialists?including pulmonary/critical care, infectious disease, cardiology, neurology. He has had problems with delirium and confusionduring his hospitalization. He was treatedwith antibiotics for sepsis/bacteremia. His CODE STATUS was full code. Unfortunately, he has initially failed to improve significantly with his respiratory status and he was on maximal high flow O2 settings?100% FiO2, 40 L/min. Initial Plans were for transfer to LTAC, possibly this week. Palliativemedicine was consulted to help with goals of care and withadvance care planning. Patient code status was changed DNR CCA without intubation. Patient had prolonged hospital course due to his complex medical condition. Mostly due to worseningrespiratory status and high oxygen requirement of high flow nasal cannula alternating with BiPAP atnighttime. Patient has completed course of antibiotics, Received course of steroids here and currently on taper of steroids. Pulmonary followed, added diuretics with Diamox to help to lower bicarb levels, also added diuretics, patient responded well to that and oxygen requirements started to come down. Patient currently has been maintaining 2 L NC. Had large BM today after been constipated. Specialists inputs appreciated. Recs by specialists been implemented. CM followed and patient has been acc eptedto SNF. Patient is stable for discharge at this time. Discussed with patient at bedside, question answered, patient in agreement and comfortable with discharge plan. Patient has multiple complex medical issues as listed above and others that are not listed. All appear to be stable at this time. Patient is feeling significantly better and feeling comfortable with this plan of discharge. I do not have any clear or strong clinical justification to extend inpatient hospitalization. Patient however will require close and the frequent monitoringas well as additional work-up, investigation and therapeutic intervention that could take place from this point on post discharge. That is to prevent relapse,decompensation, rehospitalization and other medical implication s. Outpatient follow up as directed for continuity of care. Verbal and written discharge instructions will be provided to the patient. Condition Condition at Discharge: Stable Time Spent with Patient Time spent providing/coordinating discharge services (# min): 58 Discharge Plan Discharge Plan Patient Disposition: Nursing Home Facility Activity: Ambulate as Tolerated Diet: Other Comment: Gluten free Additional Instructions: SNF to manage: -PT/OT to eval and treat -Monitor VS per protocol -Fall precautions -Perform cardiovascular, genitourinary and respiratory assessments -Monitor for increased signs of infection -Dietitian recommendations: *Ensure plus, 1 container, daily with meal -Monitor FSBS ACHS -See speech therapy recommendations in discharge packet -Continue use of incentive spirometry every 4 hours as tolerated -Change dressing every 3 days: *Mepilex border foam to Coccyx for protection. -Care to be managed by SNF providers. Instructions: Atrial fibrillation Prescriptions: New acetaminophen [Tylenol] 325 mg Tablet 650 mg PO Q6H PRN (Reason: Pain 1-5 or fever) Qty: 0 0RF divalproex 250 mg Tablet,Delayed Release (Dr/Ec) 250 mg PO BID Qty: 0 0RF diltiazem HCl 180 mg Capsule,Extended Release 24hr 180 mg PO DAILY Qty: 0 0RF aspirin 81 mg Tablet,Delayed Release (Dr/Ec) 81 mg PO DAILY Qty: 0 0RF bisacodyl 10 mg Suppository 10 mg RI DAILY PRN (Reason: Constipation) Qty: 0 0RF bumetanide 1 mg Tablet 1 mg PO DAILY@0800 Qty: 0 0RF insulin aspart U-100 100 unit/mL (3 mL) Insulin Pen See Protocol subcut TID.WM.HS Qty: 0 0RF Protocol: Corrective Scale #3 (TDI 51-75 UNITS) Condition: Corrective Scale #3 (TDI 51-75 UNITS) Condition: Dose/Route: Instruction: Condition: Fingerstick Blood Glucose Dose/Route: Insulin Units Condition: 150-199 mg/dl Dose/Route: 3 unit Condition: 200-249 mg/dl Dose/Route: 4 unit Condition: 250-299 mg/dl Dose/Route: 7 unit Condition: 300-349 mg/dl Dose/Route: 10 unit Condition: 350-399 mg/dl Dose/Route: 12 unit Condition: greater than or = 400 mg/dl Dose/Route: 14 unit Instruction: Call Provider Protocol Text: *If the corrective scale dose has been administered within the past 4 hours, do not use corrective scale again unless approved by prescriber* duloxetine 60 mg Capsule,Delayed Release(Dr/Ec) 60 mg PO DAILY Qty: 0 0RF magnesium oxide 400 mg (241.3 mg magnesium) Tablet 400 mg PO BID Qty: 0 0RF Humulin N NPH Insulin KwikPen 100 unit/mL (3 mL) Insulin Pen 12 unit subcut BID Qty: 0 0RF prednisone 10 mg Tablet 20 mg PO DAILY Qty: 0 0RF Taper: pred test 40 mg Daily for 2 Days and 0 Hour 20 mg Daily for 3 Days and 0 Hour 10 mg Daily for 7 Days and 0 Hour polyethylene glycol 3350 [HealthyLax] 17 gram Powder In Packet 17 g PO DAILY PRN (Reason: Constipation) Qty: 0 0RF metoprolol succinate 50 mg Tablet Extended Release 24 Hr 37.5 mg PO BID Qty: 0 0RF quetiapine 25 mg Tablet 25 mg PO QHS Qty: 0 0RF Continued albuterol sulfate 2.5 mg /3 mL (0.083 %) Solution For Nebulization 2.5 mg inhalation Q2H PRN (Reason: shortness of breath or wheezing) fluticasone propion-salmeterol 500-50 mcg/dose blister with device 1 inh inhalation BID Patient Comments: montelukast 10 mg Tablet 10 mg PO HS albuterol sulfate [Proventil HFA] 90 mcg/actuation Hfa Aerosol Inhaler 2 puff inhalation Q2H PRN (Reason: shortness of breath or wheezing) nystatin 100,000 unit/mL suspension 400,000 unit PO QID 7 Days Qty: 112 0RF Rx Instructions: swish in the mouth and retain for as long as possible (several minutes) before swallowing Discontinued cyclobenzaprine 10 mg Tablet 10 mg PO TID divalproex 250 mg Tablet,Delayed Release (Dr/Ec) 500 mg PO HS atenolol 25 mg Tablet 25 mg PO DAILY indomethacin 25 mg Capsule 25 mg PO .QD celecoxib 200 mg capsule 200 mg PO DAILY Rx Instructions: FreeTextSi capsule Orally BID; Note: Source Status: Taking; Provider: Faye Mcdonald ( ) doxepin 25 mg capsule 25 mg PO HS duloxetine 30 mg capsule,delayed release(DR/EC) 30 mg PO BID meclizine 25 mg tablet 25 mg PO TID PRN (Reason: dizziness) phentermine 37.5 mg tablet 37.5 mg PO DAILY Follow Up: [facility] - [facility] [Outside] (Call if needed. ) Ambika Benson, [Primary Care Provider] - (Follow-up with your Primary Care Provider after discharge from SNF) Lisa Epps MD [Active Staff] - 06/21/24 10:40 am Exam Physical Exam Vital Signs: Temp Pulse Resp BP Pulse Ox O2 Del Method O2 Flow Rate 97.9 F 92 20 105/64 98 Room Air 2 05/23/24 11:15 05/23/24 11:15 05/23/24 11:15 05/23/24 11:15 05/23/24 11:15 05/23/24 11:15 05/23/24 08:00 FiO2 65 05/20/24 01:13 Narrative: Const General: cooperative, on nasal cannula HEENT Normal oropharyngeal mucosa without any ulcers or exudates Eyes: Conjunctiva normal Pulmonary Auscultation: diminished breath sounds, no crackles, no wheezes Cardiovascular Rate: normal rate Rhythm: regular rhythm Heart Sounds: S1 normal, S2 normal and no murmurs GI Inspection: non-distended Palpation: soft, not firm and nontender. No rigidity or rebound. Deferred Neuro General: alert, awake and oriented to self, states his name, oriented to place, not oriented to exact year or [place] president. No obvious new focal deficit Musculoskeletal: normal range of motion Extrem General: no cyanosis, trace pedal edema Psych Appearance: Calm, cooperative. Diagnostic Studies Completed and Pending Studies Labs on day of discharge: 05/23/24 11:35: POC Glucose 208, POC Glucose Comment Glu2: cleaned meter 05/23/24 07:31: POC Glucose 77, POC Glucose Comment Glu2: cleaned meter 05/23/24 04:03: Corrected WBC 20.1 H, Uncorrected WBC Count 20.1 H, RBC 3.27 L, Hgb 10.9 L, Hct 31.5 L, MCV 96.6, MCH 33.5, MCHC 34.7, RDW 16.8 H, Plt Count 303, MPV 7.9, Neut % (Auto) 80.6, Lymph % (Auto) 11.4, [place] % (Auto) 6.9, Eos % (Auto) 0.4, Baso % (Auto) 0.7, Nucleat RBC Rel Count 0.1, Neut# (Auto) 16.1 H, Lymph # (Auto) 2.3, [place] # (Auto) 1.4 H, Eos # (Auto) 0.1, Baso # (Auto) 0.1, PHA Creatinine Clear 78.86, Sodium 139, Potassium 3.6, Chloride 99, Carbon Dioxide 33.1 H, Anion Gap 10.5, BUN 44 H, Creatinine 0.92, Est GFR (CKD-EPI) > 60.0, Glucose 85, Calcium 8.7, Total Bilirubin 1.6 H, AST 19, ALT 34, Alkaline Phosphatase 72, Total Protein 5.1 L, Albumin 3.2 L, Globulin 1.9, Alb umin/Globulin Ratio 1.7 05/22/24 20:27: POC Glucose 171 05/22/24 16:29: POC Glucose 184 Documented By: Shira Nath MD 05/23/24 12 56 Signed By: 05/23/[address] [place], [place] [id number] Progress note Author Shira Nath [facility] Note Date/Time May 22, 2024 3 :17pm [facility] [address] [place] [address] Hospitalist Progress Note Signed Patient: Juan Simon MR#: [id number] : 1955 Acct:[id number] Age/Sex: 68 / M Adm Date: 4 Loc: Room: [address] [place] [address] Type: ADM IN Attending Dr: Shira aNth MD Copies to: ~ Date of Service: 05/22/2024 Subjective Subjective Narrative: Patient was evaluated at bedside, Reports feeling better today, his oxygen requirements significantly better. Remained stable, he is down to 2L NC, Less cough and sputum production. Remained afebrile, WBC up to 21 but clinically stable. Likely reactive, steroids induced. remained on AB. Overall patient is calm and cooperative however he is still confused, states his name, place said hospital, not oriented to year, knows month, seems to be his baseline. Constipated, added, laxatives. Does not know exactly why he is here. Pulmonary following. Input appreciated. No major events overnight. CM following and working on placement to SNF. Exam Physical Exam Vital Signs: Temp Pulse Resp BP Pulse Ox O2 Del Method O2 Flow Rate 97.7 F 78 18 110/71 97 Nasal Cannula 2 05/22/24 11:34 05/22/24 13:38 05/22/24 13:38 05/22/24 11:34 05/22/24 11:34 05/22/24 11:34 05/22/24 11:34 FiO2 65 05/20/24 01:13 Narrative: Const General: cooperative, on nasal cannula HEENT Normal oropharyngeal mucosa without any ulcers or exudates Eyes: Conjunctiva normal Pulmonary Auscultation: diminished breath sounds, no crackles, no wheezes Cardiovascular Rate: normal rate Rhythm: regular rhythm Heart Sounds: S1 normal, S2 normal and no murmurs GI Inspection: non-distended Palpation: soft, not firm and nontender. No rigidity or rebound. Deferred Neuro General: alert, awake and oriented to self, states his name, not oriented to place, not oriented to time. No obvious new focal deficit Musculoskeletal: normal range of motion Extrem General: no cyanosis, trace pedal edema Psych Appearance: Calm, cooperative. Objective Lab Results 05/22/24 04:18 05/22/24 04:18 Meds Allergies and Active Meds Allergies gluten Allergy (Unknown, Verified 05/02/24 09:54) Unknown Reaction Active Meds: Active Medications Generic Name Dose Route Start Last Admin Trade Name Freq PRN Reason Stop Dose Admin Acetaminophen 650 mg 05/02/24 17:28 05/20/24 10:13 Acetaminophen 325 Mg Tablet PO 05/02/25 17:27 650 mg Q6H PRN Administration Pain 1-5 or fever Albuterol 2.5 mg 05/08/24 13:37 05/21/24 17:18 Albuterol Neb 2.5 Mg/3 Ml Vial.Neb INHALATION 05/02/25 17:26 2.5 mg Q3H PRN Administration shortness of breath or wheezin Albuterol/Ipratropium 3 ml 05/10/24 14:00 05/22/24 13:36 Ipratropium/Albuterol 0.5-3 Mg 3 Ml Ampul.Neb INHALATION 05/10/25 13:59 3 ml TID EDIE Administration Aspirin 81 mg 05/06/24 09:00 05/22/24 09:31 Aspirin 81 Mg Tablet. PO 05/06/25 08:59 81 mg DAILY EDIE Administration Budesonide/Formoterol Fumarate 2 puff 05/02/24 21:00 05/22/24 08:14 Budesonide/Formoterol 160-4.5 Mcg 60 Puff/6 Gm Hfa.Aer.Ad INHALATION 05/02/25 20:59 2 puff BID EDIE Administration Bumetanide 1 mg 05/21/24 08:00 05/22/24 09:32 Bumetanide 1 Mg Tablet PO 05/21/25 07:59 1 mg DAILY@0800 EDIE Administration Dextrose 0 gm 05/11/24 08:45 Dextrose 50% In Water 25 Gm/50 Ml Syringe IV-PUSH 05/11/25 08:44 PRN PRN Hypoglycemia Diltiazem HCl 180 mg 05/12/24 09:30 05/22/24 09:31 Diltiazem Cd.24hr 180 Mg Cap.Er.24h PO 05/12/25 09:29 180 mg DAILY EDIE Administration Divalproex Sodium 250 mg 05/11/24 09:00 05/22/24 09:31 Divalproex Sodium 250 Mg Tablet. PO 05/11/25 08:59 250 mg BID EDIE Administration Docusate Sodium 100 mg 05/21/24 21:00 05/22/24 09:31 Docusate 100 Mg Capsule PO 05/21/25 20:59 100 mg BID EDIE Administration Duloxetine HCl 60 mg 05/13/24 09:00 05/22/24 09:31 Duloxetine 60 Mg Capsule. PO 05/13/25 08:59 60 mg DAILY EDIE Administration Enoxaparin Sodium 40 mg 05/09/24 13:04 05/22/24 09:32 Enoxaparin 40 Mg/0.4 Ml Syringe SUBCUT 05/09/25 13:03 40 mg DAILY@1000 EDIE Administration Glucose 0 gm 05/11/24 08:45 Dextrose 40% Gel 15 Gm Tube PO 05/11/25 08:44 PRN PRN Hypoglycemia Guaifenesin 10 ml 05/13/24 20:42 05/13/24 21:03 Guaifenesin Syrup 10 Ml Udc PO 05/13/25 20:41 10 ml Q4H PRN Administration Cough Insulin Aspart 0 units 05/11/24 12:00 05/22/24 11:37 Insulin Aspart 300 Units/3 Ml SUBCUT 05/11/25 11:59 Not Given TID.WM.[facility] Protocol Insulin Human NPH 12 units 05/15/24 11:00 05/22/24 09:33 Insulin Nph Human Isophane 300 Units/3 Ml Insuln.Pen SUBCUT 05/15/25 10:59 12 units BID EDIE Administration Magnesium Oxide 400 mg 05/11/24 09:00 05/22/24 09:32 Magnesium Oxide 400 Mg Tablet PO 05/11/25 08:59 400 mg TID EDIE Administration Metoprolol Succinate 37.5 mg 05/15/24 06:00 05/22/24 09:32 Metoprolol Succinate 50 Mg Tab.Er.24h PO 05/15/25 05:59 37.5 mg BID EDIE Administration Montelukast Sodium 10 mg 05/02/24 22:00 05/21/24 22:19 Montelukast 10 Mg Tablet PO 05/02/25 21:59 10 mg HS EDIE Administration Nystatin 400,000 unit 05/13/24 09:00 05/22/24 09:31 Nystatin Susp 500,000 Unit/5 Ml Udc PO 05/13/25 08:59 400,000 unit QID EDIE Administration Polyethylene Glycol 17 gm 05/20/24 14:36 05/20/24 17:16 Polyethylene Glycol 3350 17 Gm Powd.Pack PO 05/20/25 14:35 17 gm DAILY PRN Administration Constipation Prednisone 40 mg 05/21/24 09:00 05/22/24 09:31 Prednisone 10 Mg Tablet PO 06/02/24 08:59 40 mg DAILY EDIE Administration Taper Quetiapine Fumarate 25 mg 05/11/24 22:00 05/21/24 22:19 Quetiapine Fumarate 25 Mg Tablet PO 05/11/25 21:59 25 mg QHS EDIE Administration Sennosides 17.6 mg 05/21/24 22:00 05/21/24 22:18 Sennosides Syrup 8.8 Mg/5 Ml Udc PO 05/21/25 21:59 17.6 mg HS EDIE Administration Sodium Chloride 0 ml 05/02/24 09:53 05/20/24 21:27 Sodium Chloride 0.9 % 10 Ml Syringe IV-PUSH 05/02/25 09:52 10 ml PRN PRN Administration Flush A&P - Hospitalist Assessment/Plan (1) Atrial fibrillation with rapid ventricular response: (2) Bacteremia due to group B Streptococcus: (3) Sepsis: (4) Urinary tract infection: (5) Acute hypoxic respiratory failure: (6) Pneumonia: Plan A-fib- rate controlled Continue Cardizem and beta-david orally. Cardiology team does not recommend full dose anticoagulation. EF is normal Acute metabolic encephalopathy, possible seizure MRI could not be done here at [facility]. Neurology team recommended repeat CAT scan which does not show any evolution. Neurology team does not recommend any additional workup and investigation believing that his altered mental status is secondary to metabolic encephalopathy. Valproic acid level is 32.2. Neurology was consulted. Input appreciated. Sepsis, bacteremia UTI, pneumonia, hypoxic respiratory failure Repeat blood cultures are negative. UA is positive for strep and Enterococcus Patient is on 2 L NC, significant improvement from prior. Completing Zosyn and doxycycline as well as Solu-Medrol. vanco was stopped. MRSAcx neg, repeat resp panel neg. Patient was seen by speech who did not recommend any modification of his diet due to not exhibiting any signs and symptoms of aspiration as per speech. Defer further needed diagnostic and therapeutic intervention for his respiratoryand medical management while in ICU to the pulmonary team. Hypomagnesemia Replete as needed DVT prophylaxis Continue Lovenox and aspirin. No full dose anticoagulation by cardiology. Hyperglycemia, poor control. Continue sliding scale. Continue NPH 12 units twice a day with holding parameters. Constipation -Added laxatives -Monitor for BM Patient much improved clinically. CM following for placement to SNF at this point. Pulmonary input appreciated. Discussed with patient at bedside, all question answered, patient in agreement with the plan. Documented By: Shira Nath MD 05/22/24 15 09 Signed By: <Electronically signed by Shira Nath MD> 05/22/24 1517 [facility] Work Phone: [phone]) 955-990101-12-2025 [place] [address] Hospitalist Progress Note Signed Patient: Juan Simon MR#: [id number] : 1955 Acct:[id number] Age/Sex: 68 / M Adm Date: 4 Loc: 4 Room: [address] [place] [address] Type: ADM IN Attending Dr: Shira Nath MD Copies to: ~ Date of Service: 05/22/2024 Subjective Subjective Narrative: Patient was evaluated at bedside, Reports feeling better today, his oxygen requirements significantly better. Remained stable, he is down to 2L NC, Less cough and sputum production. Remained afebrile, WBC up to 21 but clinically stable. Likely reactive, steroids induced. remained on AB. Overall patient is calm and cooperative however he is still confused, states his name, place said hospital, notoriented to year, knows month, seems to be his baseline. Constipated, added, laxatives. Does not know exactly why he is here. Pulmonary following. Input appreciated. No major events overnight. CM following and working on placement to SNF. Exam Physical Exam Vital Signs: Temp Pulse Resp BP Pulse Ox O2 Del Method O2 Flow Rate 97.7 F 78 18 110/71 97 Nasal Cannula 2 05/22/24 11:34 05/22/24 13:38 05/22/24 13:38 05/22/24 11:34 05/22/24 11:34 05/22/24 11:34 05/22/24 11:34 FiO2 65 05/20/24 01:13 Narrative: Const General: cooperative, on nasal cannula HEENT Normal oropharyngeal mucosa without any ulcers or exudates Eyes: Conjunctiva normal Pulmonary Auscultation: diminished breath sounds, no crackles, no wheezes Cardiovascular Rate: normal rate Rhythm: regular rhythm Heart Sounds: S1 normal, S2 normal and no murmurs GI Inspection: non-distended Palpation: soft, not firm and nontender. No rigidity or rebound. Deferred Neuro General: alert, awake and oriented to self, states his name, not oriented to place, not oriented totime. No obvious new focal deficit Musculoskeletal: normal range of motion Extrem General: no cyanosis, trace pedal edema Psych Appearance: Calm, cooperative. Objective Lab Results 05/22/24 04:18 05/22/24 04:18 Meds Allergies and Active Meds Allergies gluten Allergy (Unknown, Verified 05/02/24 09:54) Unknown Reaction Active Meds: Active Medications Generic Name Dose Route Start Last Admin Trade Name Freq PRN Reason Stop Dose Admin Acetaminophen 650 mg 05/02/24 17:28 05/20/24 10:13 Acetaminophen 325 Mg Tablet PO 05/02/25 17:27 650 mg Q6H PRN Administration Pain 1-5 or fever Albuterol 2.5 mg 05/08/24 13:37 05/21/24 17:18 Albuterol Neb 2.5 Mg/3 Ml Vial.Neb INHALATION 05/02/25 17:26 2.5 mg Q3H PRN Administration shortness of breath or wheezin Albuterol/Ipratropium 3 ml 05/10/24 14:00 05/22/24 13:36 Ipratropium/Albuterol 0.5-3 Mg 3 Ml Ampul.Neb INHALATION 05/10/25 13:59 3 ml TID EDIE Administration Aspirin 81 mg 05/06/24 09:00 05/22/24 09:31 Aspirin 81 Mg Tablet.Dr PO 05/06/25 08:59 81 mg DAILY EDIE Administration Budesonide/Formoterol Fumarate 2 puff 05/02/24 21:00 05/22/24 08:14 Budesonide/Formoterol 160-4.5 Mcg 60 Puff/6 Gm Hfa.Aer.Ad INHALATION 05/02/25 20:59 2 puff BID EDIE Administration Bumetanide 1 mg 05/21/24 08:00 05/22/24 09:32 Bumetanide 1 Mg Tablet PO 05/21/25 07:59 1 mg DAILY@0800 EDIE Administration Dextrose 0 gm 05/11/24 08:45 Dextrose 50% In Water 25 Gm/50 Ml Syringe IV-PUSH 05/11/25 08:44 PRN PRN Hypoglycemia Diltiazem HCl 180 mg 05/12/24 09:30 05/22/24 09:31 Diltiazem Cd.24hr 180 Mg Cap.Er.24h PO 05/12/25 09:29 180 mg DAILY EDIE Administration Divalproex Sodium 250 mg 05/11/24 09:00 05/22/24 09:31 Divalproex Sodium 250 Mg Tablet. PO 05/11/25 08:59 250 mg BID EDIE Administration Docusate Sodium 100 mg 05/21/24 21:00 05/22/24 09:31 Docusate 100 Mg Capsule PO 05/21/25 20:59 100 mg BID EDIE Administration Duloxetine HCl 60 mg 05/13/24 09:00 05/22/24 09:31 Duloxetine 60 Mg Capsule. PO 05/13/25 08:59 60 mg DAILY EDIE Administration Enoxaparin Sodium 40 mg 05/09/24 13:04 05/22/24 09:32 Enoxaparin 40 Mg/0.4 Ml Syringe SUBCUT 05/09/25 13:03 40 mg DAILY@1000 EDIE Administration Glucose 0 gm 05/11/24 08:45 Dextrose 40% Gel 15 Gm Tube PO 05/11/25 08:44 PRN PRN Hypoglycemia Guaifenesin 10 ml 05/13/24 20:42 05/13/24 21:03 Guaifenesin Syrup 10 Ml Udc PO 05/13/25 20:41 10 ml Q4H PRN Administration Cough Insulin Aspart 0 units 05/11/24 12:00 05/22/24 11:37 Insulin Aspart 300 Units/3 Ml SUBCUT 05/11/25 11:59 Not Given TID.WM.[facility] Protocol Insulin Human NPH 12 units 05/15/24 11:00 05/22/24 09:33 Insulin Nph Human Isophane 300 Units/3 Ml Insuln.Pen SUBCUT 05/15/25 10:59 12 units BID EDIE Administration Magnesium Oxide 400 mg 05/11/24 09:00 05/22/24 09:32 Magnesium Oxide 400 Mg Tablet PO 05/11/25 08:59 400 mg TID EDIE Administration Metoprolol Succinate 37.5 mg 05/15/24 06:00 05/22/24 09:32 Metoprolol Succinate 50 Mg Tab.Er.24h PO 05/15/25 05:59 37.5 mg BID EDIE Administration Montelukast Sodium 10 mg 05/02/24 22:00 05/21/24 22:19 Montelukast 10 Mg Tablet PO 05/02/25 21:59 10 mg HS [facility] Administration Nystatin 400,000 unit 05/13/24 09:00 05/22/24 09:31 Nystatin Susp 500,000 Unit/5 Ml Udc PO 05/13/25 08:59 400,000 unit QID EDIE Administration Polyethylene Glycol 17 gm 05/20/24 14:36 05/20/24 17:16 Polyethylene Glycol 3350 17 Gm Powd.Pack PO 05/20/25 14:35 17 gm DAILY PRN Administration Constipation Prednisone 40 mg 05/21/24 09:00 05/22/24 09:31 Prednisone 10 Mg Tablet PO 06/02/24 08:59 40 mg DAILY EDIE Administration Taper Quetiapine Fumarate 25 mg 05/11/24 22:00 05/21/24 22:19 Quetiapine Fumarate 25 Mg Tablet PO 05/11/25 21:59 25 mg QHS EDIE Administration Sennosides 17.6 mg 05/21/24 22:00 05/21/24 22:18 Sennosides Syrup 8.8 Mg/5 Ml Udc PO 05/21/25 21:59 17.6 mg HS EDIE Administration Sodium Chloride 0 ml 05/02/24 09:53 05/20/24 21:27 Sodium Chloride 0.9 % 10 Ml Syringe IV-PUSH 05/02/25 09:52 10 ml PRN PRN Administration Flush A&P - Hospitalist Assessment/Plan (1) Atrial fibrillation with rapid ventricular response: (2) Bacteremia due to group B Streptococcus: (3) Sepsis: (4) Urinary tract infection: (5) Acute hypoxic respiratory failure: (6) Pneumonia: Plan A-fib- rate controlled Continue Cardizem and beta-david orally. Cardiology team does not recommend full dose anticoagulation. EF is normal Acute metabolic encephalopathy, possible seizure MRI could not be done here at [facility]. Neurology team recommended repeat CAT scan which does not show any evolution. Neurology team does not recommend any additional workup and investigation believing that his altered mental status is secondary to metabolic encephalopathy. Valproic acid level is 32.2. Neurology was consulted. Input appreciated. Sepsis, bacteremia UTI, pneumonia, hypoxic respiratory failure Repeat blood cultures are negative. UA is positive for strep and Enterococcus Patient is on 2 L NC, significant improvement from prior. Completing Zosyn and doxycycline as well as Solu-Medrol. vanco was stopped. MRSAcx neg, repeat resppanel neg. Patient was seen by speech who did not recommend any modification of his diet due to not exhibitingany signs and symptoms of aspiration as per speech. Defer further needed diagnostic and therapeutic intervention for his respiratoryand medical management while in ICU to the pulmonary team. Hypomagnesemia Replete as needed DVT prophylaxis Continue Lovenox and aspirin. No full dose anticoagulation by cardiology. Hyperglycemia, poor control. Continue sliding scale. Continue NPH 12 units twice a day with holding parameters. Constipation -Added laxatives -Monitor for BM Patient much improved clinically. CM following for placement to SNF at this point. Pulmonary input appreciated. Discussed with patient at bedside, all question answered, patient in agreement with the plan. Documented By: Shira Nath MD 05/22/24 15 Signed By: 05/22/[address] [employer], [place] 9970201-11-2025 Progress note Author Panfilo Holley [facility] Note Date/Time May 21, 2024 3 :04pm [facility] [address] [place] [address] Pulmonology Progress Note Signed Patient: Juan Simon MR#: [id number] : 1955 Acct:[id number] Age/Sex: 68 / M Adm Date: 4 Loc: Room: [address] [place] [address] Type: ADM IN Attending Dr: Shira Nath MD Copies to: ~ Date of Service: 05/21/2024 Subjective Subjective Narrative: The patient was seen and examined at the bedside this morning. Events from the last 24 hours have been reviewed. The patient is afebrile, hemodynamically stable and maintaining appropriate oxygen saturations on room air. Serum bicarbonate has decreased to 33. Creatinine is within normal limits. The patient reported feeling status quo . Exam Physical Exam Vital Signs: Temp Pulse Resp BP Pulse Ox O2 Del Method O2 Flow Rate 97.7 F 82 16 106/57 L 99 Nasal Cannula 2 05/21/24 04:43 05/21/24 12:00 05/21/24 12:00 05/21/24 12:00 05/21/24 12:00 05/21/24 12:00 05/21/24 12:00 FiO2 65 05/20/24 01:13 Narrative: General: No acute distress. Sitting in bedside recliner. Head: Normocephalic and atraumatic. Eyes: PERRLA. Neck: Supple. Trachea midline. Mouth: Moist mucous membranes. Pulmonary: Clear without appreciable wheezes, rales or rhonchi. Cardiovascular: Regular rate and rhythm. Normal S1 and S2. No M/R/G Abdomen: Soft, nontender and nondistended. Skin: Intact. Warm and dry. No lesions. Extremities: No clubbing, cyanosis or edema. Neurological: No focal deficits. Objective Intake and Output I&O - Last 24 Hours: Intake & Output 05/20/24 05/21/24 05/21/24 23:59 07:59 15:59 Intake Total 950 / 1390 500 / 500 Output Total 2000 / 3500 900 / 900 Balance -1050 / -2110 -400 / -400 Weight 91.4 kg Labs 05/21/24 04:28 05/21/24 04:28 Additional Results Results Comments: The patient's most recent lab work, culture data and imaging studies have all been personally reviewed. Assessment/Plan Assessment/Plan (1) Acute and chronic respiratory failure: (2) Sepsis: (3) Atrial fibrillation with rapid ventricular response: (4) Urinary tract infection: (5) Bacteremia due to Streptococcus: Plan The patient is Hospital day #18 originally admitted with group B streptococcus bacteremia presumably from UTI with acute on chronic hypoxemic respiratory failure with diffuse infiltrates noted on chest imaging. The patient remains onantimicrobial therapy. He appears to be significantly improved from a respiratory perspective, following ongoing attempts at diuresis. Given improvement in the patient's bicarbonate, will plan to discontinue acetazolamide. The patient does not appear to be overtly volume overloaded and is maintaining appropriate oxygen saturations on room air. Therefore, I do not see an indication to continue ongoing diuresis. I would plan to continue antimicrobials to complete a treatment course along with scheduled bronchodilators and prednisone 40 mg daily, which should be weaned as follows: 40 mg daily x 3 days, 30 mg daily x 3 days, 20 mg daily x 3 days, 10 mg daily x 3 days. I would continue to encourage incentive spirometer use and mobilize patient as tolerated with the assistance of physical therapy. At this time, will sign off from a pulmonary perspective. Please call if we can be of any additional assistance. Documented By: Panfilo Holley DO 05/21/24 3303 Signed By: <Electronically signed by Panfilo Holley, DO> 05/21/24 1504 [facility] Work Phone: 1([phone]) 208-875901-11-[address] [address] Pulmonology Progress Note Signed Patient: Juan Simon MR#: [id number] : 1955 Acct:[id number] Age/Sex: 68 / M Adm Date: 4 Loc: 4 Room: [address] [place] [address] Type: ADM IN Attending Dr: Shira Nath MD Copies to: ~ Date of Service: 05/21/2024 Subjective Subjective Narrative: The patient was seen and examined at the bedside this morning. Events from the last 24 hours have been reviewed. The patient is afebrile, hemodynamically stable and maintaining appropriate oxygen saturations on room air. Serum bicarbonate has decreased to 33. Creatinine is within normal limits. Thepatient reported feeling status quo . Exam Physical Exam Vital Signs: Temp Pulse Resp BP Pulse Ox O2 Del Method O2 Flow Rate 97.7 F 82 16 106/57 L 99 Nasal Cannula 2 05/21/24 04:43 05/21/24 12:00 05/21/24 12:00 05/21/24 12:00 05/21/24 12:00 05/21/24 12:00 05/21/24 12:00 FiO2 65 05/20/24 01:13 Narrative: General: No acute distress. Sitting in bedside recliner. Head: Normocephalic and atraumatic. Eyes: PERRLA. Neck: Supple. Trachea midline. Mouth: Moist mucous membranes. Pulmonary: Clear without appreciable wheezes, rales or rhonchi. Cardiovascular: Regular rate and rhythm. Normal S1 and S2. No M/R/G Abdomen: Soft, nontender and nondistended. Skin: Intact. Warm and dry. No lesions. Extremities: No clubbing, cyanosis or edema. Neurological: No focal deficits. Objective Intake and Output I&O - Last 24 Hours: Intake & Output 05/20/24 05/21/24 05/21/24 23:59 07:59 15:59 Intake Total 950 / 1390 500 / 500 Output Total 2000 / 3500 900 / 900 Balance -1050 / -2110 -400 / -400 Weight 91.4 kg Labs 05/21/24 04:28 05/21/24 04:28 Additional Results Results Comments: The patient's most recent lab work, culture data and imaging studies have all been personally reviewed. Assessment/Plan Assessment/Plan (1) Acute and chronic respiratory failure: (2) Sepsis: (3) Atrial fibrillation with rapid ventricular response: (4) Urinary tract infection: (5) Bacteremia due to Streptococcus: Plan The patient is Hospital day #18 originally admitted with group B streptococcus bacteremia presumably from UTI with acute on chronic hypoxemic respiratory failure with diffuse infiltrates noted on chest imaging. The patient remains onantimicrobial therapy. He appears to be significantly improved from a respiratory perspective, following ongoing attempts at diuresis. Given improvement in the patient's bicarbonate, will plan to discontinue acetazolamide. The patient does not appear to be overtly volume overloaded and is maintaining appropriate oxygen saturations on room air. Therefore, I do not s ee an indication to continue ongoing diuresis. I would plan to continue antimicrobials to complete a treatment course along with scheduled bronchodilators and prednisone 40 mg daily, which should be weaned as follows: 40 mg daily x 3 days, 30 mg daily x 3 days, 20 mg daily x 3 days, 10 mg daily x 3days. I would continue to encourage incentive spirometer use and mobilize patient as tolerated withthe assistance of physical therapy. At this time, will sign off from a pulmonary perspective. Please call if we can be of any additional assistance. Documented By: Panfilo Holley DO 05/21/24 1405 Signed By: 05/21/[address] [facility]01-11-2025 Progress note Author Shira Nath [facility] Note Date/Time May 21, 2024 1 1:41am [facility] [address] [place] [address] Hospitalist Progress Note Signed Patient: Juan Simon MR#: [id number] : 1955 Acct:[id number] Age/Sex: 68 / M Adm Date: 4 Loc: Room: [address] [place] [address] Type: ADM IN Attending Dr: Shira Nath MD Copies to: ~ Date of Service: 05/21/2024 Subjective Subjective Narrative: Patient was evaluated at bedside, Reports feeling better today, his oxygen requirements significantly better. he is down to 2L NC. Less cough and sputum production . Remained afebrile, WBC up to 25.3 but clinically stable. Likely reactive, steroids induced. remained on AB. Overall patient is calm and cooperative however he is still confused, states his name, place said hospital, not oriented to year, knows month, seems to be his baseline. Constipated, added,laxatives. Does not know exactly why he is here. Pulmonary following. Input appreciated. CM following and working on placement to SNF. Exam Physical Exam Vital Signs: Temp Pulse Resp BP Pulse Ox O2 Del Method O2 Flow Rate 97.7 F 75 20 104/55 L 94 L Nasal Cannula 2 05/21/24 04:43 05/21/24 11:08 05/21/24 11:08 05/21/24 08:00 05/21/24 08:00 05/21/24 11:09 05/21/24 11:09 FiO2 65 05/20/24 01:13 Narrative: Const General: cooperative, on nasal cannula HEENT Normal oropharyngeal mucosa without any ulcers or exudates Eyes: Conjunctiva normal Pulmonary Auscultation: diminished breath sounds, no crackles, no wheezes Cardiovascular Rate: normal rate Rhythm: regular rhythm Heart Sounds: S1 normal, S2 normal and no murmurs GI Inspection: non-distended Palpation: soft, not firm and nontender. No rigidity or rebound. Deferred Neuro General: alert, awake and oriented to self, states his name, knows place, not oriented to time. He knows [place] president. No obvious new focal deficit Musculoskeletal: normal range of motion Extrem General: no cyanosis, trace pedal edema Psych Appearance: Calm, cooperative. Objective Lab Results 05/21/24 04:28 05/21/24 04:28 Meds Allergies and Active Meds Allergies gluten Allergy (Unknown, Verified 05/02/24 09:54) Unknown Reaction Active Meds: Active Medications Generic Name Dose Route Start Last Admin Trade Name Freq PRN Reason Stop Dose Admin Acetaminophen 650 mg 05/02/24 17:28 05/20/24 10:13 Acetaminophen 325 Mg Tablet PO 05/02/25 17:27 650 mg Q6H PRN Administration Pain 1-5 or fever Acetazolamide 250 mg 05/21/24 09:00 05/21/24 09:05 Acetazolamide 250 Mg Tablet PO 05/21/25 08:59 250 mg DAILY EDIE Administration Albuterol 2.5 mg 05/08/24 13:37 Albuterol Neb 2.5 Mg/3 Ml Vial.Neb INHALATION 05/02/25 17:26 Q3H PRN shortness of breath or wheezin Albuterol/Ipratropium 3 ml 05/10/24 14:00 05/21/24 11:05 Ipratropium/Albuterol 0.5-3 Mg 3 Ml Ampul.Neb INHALATION 05/10/25 13:59 3 ml TID EDIE Administration Aspirin 81 mg 05/06/24 09:00 05/21/24 09:05 Aspirin 81 Mg Tablet. PO 05/06/25 08:59 81 mg DAILY EDIE Administration Budesonide/Formoterol Fumarate 2 puff 05/02/24 21:00 05/21/24 11:05 Budesonide/Formoterol 160-4.5 Mcg 60 Puff/6 Gm Hfa.Aer.Ad INHALATION 05/02/25 20:59 2 puff BID EDIE Administration Bumetanide 1 mg 05/21/24 08:00 05/21/24 09:06 Bumetanide 1 Mg Tablet PO 05/21/25 07:59 1 mg DAILY@0800 EDIE Administration Dextrose 0 gm 05/11/24 08:45 Dextrose 50% In Water 25 Gm/50 Ml Syringe IV-PUSH 05/11/25 08:44 PRN PRN Hypoglycemia Diltiazem HCl 180 mg 05/12/24 09:30 05/21/24 09:06 Diltiazem Cd.24hr 180 Mg Cap.Er.24h PO 05/12/25 09:29 180 mg DAILY EDIE Administration Divalproex Sodium 250 mg 05/11/24 09:00 05/21/24 09:06 Divalproex Sodium 250 Mg Tablet.Dr CHO 05/11/25 08:59 250 mg BID EDIE Administration Docusate Sodium 100 mg 05/21/24 21:00 Docusate 100 Mg Capsule PO 05/21/25 20:59 BID EDIE Doxycycline Hyclate 100 mg 05/12/24 21:00 05/21/24 09:06 Doxycycline Hyclate 100 Mg Tablet PO 05/21/24 23:59 100 mg BID EDIE Administration Duloxetine HCl 60 mg 05/13/24 09:00 05/21/24 09:05 Duloxetine 60 Mg Capsule.Dr PO 05/13/25 08:59 60 mg DAILY EDIE Administration Enoxaparin Sodium 40 mg 05/09/24 13:04 05/21/24 10:28 Enoxaparin 40 Mg/0.4 Ml Syringe SUBCUT 05/09/25 13:03 40 mg DAILY@1000 EDIE Administration Glucose 0 gm 05/11/24 08:45 Dextrose 40% Gel 15 Gm Tube PO 05/11/25 08:44 PRN PRN Hypoglycemia Guaifenesin 10 ml 05/13/24 20:42 05/13/24 21:03 Guaifenesin Syrup 10 Ml Udc PO 05/13/25 20:41 10 ml Q4H PRN Administration Cough Piperacillin Sod/Tazobactam Sod 4.5 gm in 100 mls @ 25 mls/hr 05/15/24 22:00 05/21/24 06:18 Zosyn IV 05/21/24 23:59 25 mls/hr Q8H EDIE Administration Insulin Aspart 0 units 05/11/24 12:00 05/21/24 09:06 Insulin Aspart 300 Units/3 Ml SUBCUT 05/11/25 11:59 Not Given TID.WM.[facility] Protocol Insulin Human NPH 12 units 05/15/24 11:00 05/21/24 09:07 Insulin Nph Human Isophane 300 Units/3 Ml Insuln.Pen SUBCUT 05/15/25 10:59 12 units BID EDIE Administration Magnesium Oxide 400 mg 05/11/24 09:00 05/21/24 09:05 Magnesium Oxide 400 Mg Tablet PO 05/11/25 08:59 400 mg TID EDIE Administration Metoprolol Succinate 37.5 mg 05/15/24 06:00 05/21/24 09:05 Metoprolol Succinate 50 Mg Tab.Er.24h PO 05/15/25 05:59 37.5 mg BID EDIE Administration Montelukast Sodium 10 mg 05/02/24 22:00 05/20/24 21:15 Montelukast 10 Mg Tablet PO 05/02/25 21:59 10 mg HS [facility] Administration Nystatin 400,000 unit 05/13/24 09:00 05/21/24 09:05 Nystatin Susp 500,000 Unit/5 Ml Udc PO 05/13/25 08:59 400,000 unit QID EDIE Administration Polyethylene Glycol 17 gm 05/20/24 14:36 05/20/24 17:16 Polyethylene Glycol 3350 17 Gm Powd.Pack PO 05/20/25 14:35 17 gm DAILY PRN Administration Constipation Prednisone 40 mg 05/21/24 09:00 05/21/24 09:05 Prednisone 10 Mg Tablet PO 06/02/24 08:59 40 mg DAILY EDIE Administration Taper Quetiapine Fumarate 25 mg 05/11/24 22:00 05/20/24 21:15 Quetiapine Fumarate 25 Mg Tablet PO 05/11/25 21:59 25 mg QHS EDIE Administration Sennosides 17.6 mg 05/21/24 22:00 Sennosides Syrup 8.8 Mg/5 Ml Udc PO 05/21/25 21:59 HS EDIE Sodium Chloride 0 ml 05/02/24 09:53 05/20/24 21:27 Sodium Chloride 0.9 % 10 Ml Syringe IV-PUSH 05/02/25 09:52 10 ml PRN PRN Administration Flush A&P - Hospitalist Assessment/Plan (1) Atrial fibrillation with rapid ventricular response: (2) Bacteremia due to group B Streptococcus: (3) Sepsis: (4) Urinary tract infection: (5) Acute hypoxic respiratory failure: (6) Pneumonia: Plan A-fib- rate controlled Continue Cardizem and beta-david orally. Cardiology team does not recommend full dose anticoagulation. EF is normal Acute metabolic encephalopathy, possible seizure MRI could not be done here at [facility]. Neurology team recommended repeat CAT scan which does not show any evolution. Neurology team does not recommend any additional workup and investigation believing that his altered mental status is secondary to metabolic encephalopathy. Valproic acid level is 32.2. Neurology was consulted. Input appreciated. Sepsis, bacteremia UTI, pneumonia, hypoxic respiratory failure Repeat blood cultures are negative. UA is positive for strep and Enterococcus Patient is on 2 L NC, significant improvement from prior. Completing Zosyn and doxycycline as well as Solu-Medrol. vanco was stopped. MRSAcx neg, repeat resp panel neg. Patient was seen by speech who did not recommend any modification of his diet due to not exhibiting any signs and symptoms of aspiration as per speech. Defer further needed diagnostic and therapeutic intervention for his respiratoryand medical management while in ICU to the pulmonary team. Hypomagnesemia Replete as needed DVT prophylaxis Continue Lovenox and aspirin. No full dose anticoagulation by cardiology. Hyperglycemia, poor control. Continue sliding scale. Continue NPH 12 units twice a day with holding parameters. Constipation -Added laxatives Patient much improved clinically. CM following for placement to SNF at this point. Pulmonary input appreciated. With patient at bedside, all question answered, patient in agreement with the plan. Documented By: Shira Nath MD 05/21/24 11 37 Signed By: <Electronically signed by Shira Nath MD> 05/21/24 1141 [facility] Work Phone: [phone]) 255-757801-11-2025 [place] [address] Hospitalist Progress Note Signed Patient: Juan Simon MR#: [id number] : 1955 Acct:[id number] Age/Sex: 68 / M Adm Date: 4 Loc: Room: [address] [place] [address] Type: ADM IN Attending Dr: Shira Nath MD Copies to: ~ Date of Service: 05/21/2024 Subjective Subjective Narrative: Patient was evaluated at bedside, Reports feeling better today, his oxygen requirements significantly better. he is down to 2L NC. Less cough and sputum production . Remained afebrile, WBC up to 25.3but clinically stable. Likely reactive, steroids induced. remained on AB. Overall patient is calm and cooperative however he is still confused, states his name, place said hospital, not oriented to year, knows month, seems to be his baseline. Constipated, added,laxatives. Does not know exactly why he is here. Pulmonary following. Input appreciated. CM following and working on placement to SNF. Exam Physical Exam Vital Signs: Temp Pulse Resp BP Pulse Ox O2 Del Method O2 Flow Rate 97.7 F 75 20 104/55 L 94 L Nasal Cannula 2 05/21/24 04:43 05/21/24 11:08 05/21/24 11:08 05/21/24 08:00 05/21/24 08:00 05/21/24 11:09 05/21/24 11:09 FiO2 65 05/20/24 01:13 Narrative: Const General: cooperative, on nasal cannula HEENT Normal oropharyngeal mucosa without any ulcers or exudates Eyes: Conjunctiva normal Pulmonary Auscultation: diminished breath sounds, no crackles, no wheezes Cardiovascular Rate: normal rate Rhythm: regular rhythm Heart Sounds: S1 normal, S2 normal and no murmurs GI Inspection: non-distended Palpation: soft, not firm and nontender. No rigidity or rebound. Deferred Neuro General: alert, awake and oriented to self, states his name, knows place, not oriented to time. He knows [place] president. No obvious new focal deficit Musculoskeletal: normal range of motion Extrem General: no cyanosis, trace pedal edema Psych Appearance: Calm, cooperative. Objective Lab Results 05/21/24 04:28 05/21/24 04:28 Meds Allergies and Active Meds Allergies gluten Allergy (Unknown, Verified 05/02/24 09:54) Unknown Reaction Active Meds: Active Medications Generic Name Dose Route Start Last Admin Trade Name Sebastianq PRN Reason Stop Dose Admin Acetaminophen 650 mg 05/02/24 17:28 05/20/24 10:13 Acetaminophen 325 Mg Tablet PO 05/02/25 17:27 650 mg Q6H PRN Administration Pain 1-5 or fever Acetazolamide 250 mg 05/21/24 09:00 05/21/24 09:05 Acetazolamide 250 Mg Tablet PO 05/21/25 08:59 250 mg DAILY EDIE Administration Albuterol 2.5 mg 05/08/24 13:37 Albuterol Neb 2.5 Mg/3 Ml Vial.Neb INHALATION 05/02/25 17:26 Q3H PRN shortness of breath or wheezin Albuterol/Ipratropium 3 ml 05/10/24 14:00 05/21/24 11:05 Ipratropium/Albuterol 0.5-3 Mg 3 Ml Ampul.Neb INHALATION 05/10/25 13:59 3 ml TID EDIE Administration Aspirin 81 mg 05/06/24 09:00 05/21/24 09:05 Aspirin 81 Mg Tablet. PO 05/06/25 08:59 81 mg DAILY EDIE Administration Budesonide/Formoterol Fumarate 2 puff 05/02/24 21:00 05/21/24 11:05 Budesonide/Formoterol 160-4.5 Mcg 60 Puff/6 Gm Hfa.Aer.Ad INHALATION 05/02/25 20:59 2 puff BID EDIE Administration Bumetanide 1 mg 05/21/24 08:00 05/21/24 09:06 Bumetanide 1 Mg Tablet PO 05/21/25 07:59 1 mg DAILY@0800 EDIE Administration Dextrose 0 gm 05/11/24 08:45 Dextrose 50% In Water 25 Gm/50 Ml Syringe IV-PUSH 05/11/25 08:44 PRN PRN Hypoglycemia Diltiazem HCl 180 mg 05/12/24 09:30 05/21/24 09:06 Diltiazem Cd.24hr 180 Mg Cap.Er.24h PO 05/12/25 09:29 180 mg DAILY EDIE Administration Divalproex Sodium 250 mg 05/11/24 09:00 05/21/24 09:06 Divalproex Sodium 250 Mg Tablet. PO 05/11/25 08:59 250 mg BID EDIE Administration Docusate Sodium 100 mg 05/21/24 21:00 Docusate 100 Mg Capsule PO 05/21/25 20:59 BID EDIE Doxycycline Hyclate 100 mg 05/12/24 21:00 05/21/24 09:06 Doxycycline Hyclate 100 Mg Tablet PO 05/21/24 23:59 100 mg BID EDIE Administration Duloxetine HCl 60 mg 05/13/24 09:00 05/21/24 09:05 Duloxetine 60 Mg Capsule. PO 05/13/25 08:59 60 mg DAILY EDIE Administration Enoxaparin Sodium 40 mg 05/09/24 13:04 05/21/24 10:28 Enoxaparin 40 Mg/0.4 Ml Syringe SUBCUT 05/09/25 13:03 40 mg DAILY@1000 EDIE Administration Glucose 0 gm 05/11/24 08:45 Dextrose 40% Gel 15 Gm Tube PO 05/11/25 08:44 PRN PRN Hypoglycemia Guaifenesin 10 ml 05/13/24 20:42 05/13/24 21:03 Guaifenesin Syrup 10 Ml Udc PO 05/13/25 20:41 10 ml Q4H PRN Administration Cough Piperacillin Sod/Tazobactam Sod 4.5 gm in 100 mls @ 25 mls/hr 05/15/24 22:00 05/21/24 06:18 Zosyn IV 05/21/24 23:59 25 mls/hr Q8H EDIE Administration Insulin Aspart 0 units 05/11/24 12:00 05/21/24 09:06 Insulin Aspart 300 Units/3 Ml SUBCUT 05/11/25 11:59 Not Given TID.[facility] Protocol Insulin Human NPH 12 units 05/15/24 11:00 05/21/24 09:07 Insulin Nph Human Isophane 300 Units/3 Ml Insuln.Pen SUBCUT 05/15/25 10:59 12 units BID EDIE Administration Magnesium Oxide 400 mg 05/11/24 09:00 05/21/24 09:05 Magnesium Oxide 400 Mg Tablet PO 05/11/25 08:59 400 mg TID EDIE Administration Metoprolol Succinate 37.5 mg 05/15/24 06:00 05/21/24 09:05 Metoprolol Succinate 50 Mg Tab.Er.24h PO 05/15/25 05:59 37.5 mg BID EDIE Administration Montelukast Sodium 10 mg 05/02/24 22:00 05/20/24 21:15 Montelukast 10 Mg Tablet PO 05/02/25 21:59 10 mg HS [facility] Administration Nystatin 400,000 unit 05/13/24 09:00 05/21/24 09:05 Nystatin Susp 500,000 Unit/5 Ml Udc PO 05/13/25 08:59 400,000 unit QID EDIE Administration Polyethylene Glycol 17 gm 05/20/24 14:36 05/20/24 17:16 Polyethylene Glycol 3350 17 Gm Powd.Pack PO 05/20/25 14:35 17 gm DAILY PRN Administration Constipation Prednisone 40 mg 05/21/24 09:00 05/21/24 09:05 Prednisone 10 Mg Tablet PO 06/02/24 08:59 40 mg DAILY EDIE Administration Taper Quetiapine Fumarate 25 mg 05/11/24 22:00 05/20/24 21:15 Quetiapine Fumarate 25 Mg Tablet PO 05/11/25 21:59 25 mg QHS EDIE Administration Sennosides 17.6 mg 05/21/24 22:00 Sennosides Syrup 8.8 Mg/5 Ml Udc PO 05/21/25 21:59 HS [facility] Sodium Chloride 0 ml 05/02/24 09:53 05/20/24 21:27 Sodium Chloride 0.9 % 10 Ml Syringe IV-PUSH 05/02/25 09:52 10 ml PRN PRN Administration Flush A&P - Hospitalist Assessment/Plan (1) Atrial fibrillation with rapid ventricular response: (2) Bacteremia due to group B Streptococcus: (3) Sepsis: (4) Urinary tract infection: (5) Acute hypoxic respiratory failure: (6) Pneumonia: Plan A-fib- rate controlled Continue Cardizem and beta-david orally. Cardiology team does not recommend full dose anticoagulation. EF is normal Acute metabolic encephalopathy, possible seizure MRI could not be done here at [facility]. Neurology team recommended repeat CAT scan which does not show any evolution. Neurology team does not recommend any additional workup and investigation believing that his altered mental status is secondary to metabolic encephalopathy. Valproic acid level is 32.2. Neurology was consulted. Input appreciated. Sepsis, bacteremia UTI, pneumonia, hypoxic respiratory failure Repeat blood cultures are negative. UA is positive for strep and Enterococcus Patient is on 2 L NC, significant improvement from prior. Completing Zosyn and doxycycline as well as Solu-Medrol. vanco was stopped. MRSAcx neg, repeat resppanel neg. Patient was seen by speech who did not recommend any modification of his diet due to not exhibitingany signs and symptoms of aspiration as per speech. Defer further needed diagnostic and therapeutic intervention for his respiratoryand medical management while in ICU to the pulmonary team. Hypomagnesemia Replete as needed DVT prophylaxis Continue Lovenox and aspirin. No full dose anticoagulation by cardiology. Hyperglycemia, poor control. Continue sliding scale. Continue NPH 12 units twice a day with holding parameters. Constipation -Added laxatives Patient much improved clinically. CM following for placement to SNF at this point. Pulmonary input appreciated. With patient at bedside, all question answered, patient in agreement with the plan. Documented By: Shira Nath MD 05/21/24 11 37 Signed By: 05/21/[address] [facility]01-10-2025 Progress note Author Victor M Chaudhry [facility] Note Date/Time May 20, 2024 4 :08pm [facility] [address] [place] [address] Palliative Care Progress Note Signed Patient: Juan Simon MR#: [id number] : 1955 Acct:[id number] Age/Sex: 68 / M Adm Date: 4 Loc: 4P Room: 6U2192-5 Type: ADM IN Attending Dr: Shira Nath MD Copies to: ~ Date of Service: 05/20/2024 Subjective Subjective HPI: Mr. Simon 66-year-old male with past medical history significant for asthma,celiac disease, DJD, chronic back pain status post spinal cord stimulator with nerve ablations, frequent falls, migraines, MANUEL. He presented to the ED with acute mental status change and was found to have A-fib with RVR and sepsis on May 02, 2024. Today is hospitalization day #15. Patient has seen multiplesubspecialists?including pulmonary/critical care, infectious disease, cardiology, neurology. He has had problems with delirium and confusion during his hospitalization. He was treated with antibiotics for sepsis/bacteremia. His CODE STATUS is currently full code. Unfortunately, he has failed to improvesignificantly with his respiratory status and he is on maximal high flow O2 settings?100% FiO2, 40 L/min. Plans are for transfer to LTAC, possibly this week. Palliative medicine was consulted to help with goals of care and with advance care planning. Patient seen and evaluated. He denies laying in his hospital bed with his at bedside. Patient is able to answer questions appropriately, but is confused on his medical situation. He brings up his cancer treatment like it recently happened, but his says that he did have lymphoma about 17 years ago and hasbeen in remission since. Juan is able to tell me he is from [facility] and went to [employer], graduating in 1975. He has 1 stepchild?[facility]. He works several different jobs in the past, including a [employer]. He has been on medical disability since his mid 50s because of a back injury he sustained. Spiritual things are important to him, he belongs to [facility] [facility] in [place]. 30 minutes spent discussing goals of care and advance care planning. We reviewed Juan current condition and answered questions. Juan did have limited insight to his condition but was able to participate some in the goals of care discussions. Unfortunately, Juan continues with severe hypoxemic respiratory failure with diffuse bilateral infiltrates despite steroids and antibiotics. Plans are being made to transfer to LTAC for continued care of hissevere respiratory failure. Juan and his , Miranda, do want to proceed with LTAC transfer when available. They said they prefer [facility] as #1 choice. We also discussed resuscitation preferences. After much discussion,Juan was able to indicate that he prefers no intubation and he would not wantCPR if his heart were to stop. Therefore patient and his requested CODE STATUS change to DNR CCA without intubation. His agreed with his choices of not going into ventilator machine in the future and not having CPR if his heart were to stop. Thank you for the consult. CODE STATUS was adjusted to DNR CCA without intubation per and patient request. Plans are for possible transfer to LTAC when this can be arranged. Miranda did ask me to call their daughter, Hortencia, who is a hospice nurse, but I was unable to get a hold of her. Will follow-up tomorrow. Please call if questions. 05/19/24 Patient seen evaluated. Meds and chart reviewed. He appears more comfortable today, sitting at bedside chair. His O2 needs have decreased markedly compared to yesterday. He now is on high flow oxygen at 35 L/min, 55% FiO2. TeleSitter has been also removed. Family is pleased that his oxygen requirements have [place]. They are hoping he can eventually be taken off of high flow oxygen completely and just on regular nasal cannula. Juan denies pain or shortness of breath currently. family says he is eating okay. He does try to joke with us today. CODE STATUS remains DNR CCA without intubation. 05/20/24 Patient seen and evaluated. He is oxygenating much better, now just on 3 L O2 via nasal cannula. His is at bedside. He remains confused and oriented toself and place, but unable to tell me exactly why he is in the hospital. He is eating okay. He has been snacking on some pretzels at bedside. He denies shortness of breath or pain. Case management is working on discharge to [facility]. CODE STATUS remains DNR CCA without intubation. Exam Physical Exam Vital Signs: Temp Pulse Resp BP Pulse Ox O2 Del Method O2 Flow Rate 97.8 F 79 20 116/59 L 100 Nasal Cannula 3 05/20/24 15:57 05/20/24 15:57 05/20/24 15:57 05/20/24 15:57 05/20/24 15:57 05/20/24 15:57 05/20/24 15:57 FiO2 65 05/20/24 01:13 Const General: cooperative and no acute distress Orientation: alert, awake, oriented to person and oriented to place HEENT Head: normal to inspection, normocephalic and atraumatic Ears: hearing grossly impaired Nose: external nose normal Mouth: oral mucosae normal Throat: posterior oropharynx normal Eyes Eyelids: eyelids normal Conjunctivae: conjunctivae normal Sclera: sclerae normal Neck Neck: supple Lymphatic: no lymphadenopathy noted Resp Auscultation: clear to auscultation bilaterally, diminished lung sounds bilaterally, no rales, no rhonchi and no wheezes Cardio Rate: regular rate Rhythm: regular rhythm GI Palpation: soft, no guarding, no masses and nontender Skin General: ecchymosis (several area. worst Left UE) Extrem General: no edema Objective Labs 05/20/24 04:13 05/20/24 04:13 Labs: Laboratory Results - last 24 hr 05/19/24 05/19/24 05/20/24 16:15 20:44 02:57 Corrected WBC Uncorrected WBC Count RBC Hgb Hct MCV MCH MCHC RDW Plt Count MPV Neut % (Auto) Lymph % (Auto) [place] % (Auto) Eos % (Auto) Baso % (Auto) Nucleat RBC Rel Count Neut # (Auto) Lymph # (Auto) [place] # (Auto) Eos # (Auto) Baso # (Auto) PHA Creatinine Clear Sodium Potassium Chloride Carbon Dioxide Anion Gap BUN Creatinine Est GFR (CKD-EPI) Glucose POC Glucose 316 148 137 POC Glucose Comment Calcium 05/20/24 05/20/24 05/20/24 04:13 06:40 11:48 Corrected WBC 21.2 H Uncorrected WBC Count 21.2 H RBC 2.88 L Hgb 9.5 L Hct 28.0 L MCV 97.3 MCH 32.9 MCHC 33.8 RDW 15.5 H Plt Count 270 MPV 8.4 Neut % (Auto) 90.0 Lymph % (Auto) 5.0 [place] % (Auto) 2.8 Eos % (Auto) 1.8 Baso % (Auto) 0.4 Nucleat RBC Rel Count 0.1 Neut # (Auto) 19.0 H Lymph # (Auto) 1.1 [place] # (Auto) 0.6 Eos # (Auto) 0.4 Baso # (Auto) 0.1 PHA Creatinine Clear 66.41 Sodium 139 Potassium 3.1 L Chloride 92 L Carbon Dioxide 39.5 H Anion Gap 10.6 BUN 39 H Creatinine 1.12 Est GFR (CKD-EPI) > 60.0 Glucose 120 H POC Glucose 94 192 POC Glucose Comment Glu2: cleaned meter Calcium 8.0 L Assessment/Plan Assessment/Plan (1) Acute and chronic respiratory failure: Code(s): J96.20 - Acute and chronic respiratory failure, unspecified whether with hypoxiaor hypercapnia (2) Bacteremia due to group B Streptococcus: Code(s): R78.81 - Bacteremia; B95.1 - Streptococcus, group B, as the cause of diseases classified elsewhere (3) Atrial fibrillation with rapid ventricular response: Code(s): I48.91 - Unspecified atrial fibrillation (4) Sepsis: Code(s): A41.9 - Sepsis, unspecified organism (5) Counseling regarding advance directives and goals of care: Code(s): Z71.89 - Other specified counseling Plan 05/20/24 Patient seen and evaluated. He is oxygenating much better, now just on 3 L O2 via nasal cannula. His is at bedside. He remains confused and oriented toself and place, but unable to tell me exactly why he is in the hospital. He is eating okay. He has been snacking on some pretzels at bedside. He denies shortness of breath or pain. Case management is working on discharge to [facility] facility. CODE STATUS remains DNR CCA without intubation. Documented By: Victor M Chaudhry DO 05/20/24 1 606 Signed By: <Electronically signed by DO Victor M Chaudhry> 05/20/24 1608 [facility] Work Phone: 1(426) 935-614201-10-2025 [place] [address] Palliative Care Progress Note Signed Patient: Juan Simon MR#: [id number] : 1955 Acct:[id number] Age/Sex: 68 / M Adm Date: 4 Loc: 4 Room: [address] [place] [address] Type: ADM IN Attending Dr: Shira Nath MD Copies to: ~ Date of Service: 05/20/2024 Subjective Subjective HPI: Mr. Simon 66-year-old male with past medical history significant for asthma,celiac disease, DJD, chronic back pain status post spinal cord stimulator with nerve ablations, frequent falls, migraines, MANUEL. He presented to the ED with acute mental status change and was found to have A-fib with RVRand sepsis on May 02, 2024. Today is hospitalization day #15. Patient has seen multiplesubspecialists?including pulmonary/critical care, infectious disease, cardiology, neurology. He has had problems with delirium and confusion during his hospitalization. He was treated with antibiotics for sepsis/bacteremia. His CODE STATUS is currently full code. Unfortunately, he has failed to improvesigni ficantly with his respiratory status and he is on maximal high flow O2 settings?100% FiO2, 40 L/min. Plans are for transfer to LTAC, possibly this week. Palliative medicine was consulted to help withgoals of care and with advance care planning. Patient seen and evaluated. He denies laying in his hospital bed with his at bedside. Patient is able to answer questions appropriately, but is confused on his medical situation. He brings up his cancer treatment like it recently happened, but his says that he did have lymphoma about 17 years ago and hasbeen in remission since. Juan is able to tell me he is from [place] originally and went to [employer], graduating in 1975. He has 1 stepchild?[facility]. He works several different jobs in the past, including a [employer]. He has been on medical disability since his mid 50s because of a back injury he sustained. Spiritual things are important to him, he belongs to [employer] in [place]. 30 minutes spent discussing goals of care and advance care planning. We reviewed Juan current condition and answered questions. Juan did have limited insight to his condition but was able to participate some in the goals of care discussions. Unfortunately, Juan continues with severe hypoxemic respiratory failure with diffuse bilateral infiltrates despite steroids and antibiotics. Plans are being made to transfer to LTAC for continued care of hissevere respiratory failure. Juan and his , Miranda, do want to proceed with LTAC transfer when available. They said they prefer [facility] as #1 choice. We also discussed resuscitation preferences. After much discussion,Juan was able to indicate that he prefers no intubation and he would not wantCPR if his heart were to stop. Therefore patient and his requested CODE STATUS change to DNR CCA without intubation. His agreed with his choices of not going into ventilator machine in the future and not having CPR if his heart were to stop. Thank you for the consult. CODE STATUS was adjusted to DNR CCA without intubation per and patient request. Plans are for possible transfer to LTAC when this can be arranged. Miranda did ask me to call their daughter, Hortencia, who is a hospice nurse, but I was unable to get a hold of her. Will follow-up tomorrow. Please call if questions. 05/19/24 Patient seen evaluated. Meds and chart reviewed. He appears more comfortable today, sitting at bedside chair. His O2 needs have decreased markedly compared to yesterday. He now is on high flow oxygenat 35 L/min, 55% FiO2. TeleSitter has been also removed. Family is pleased that his oxygen requirements have [place]. They are hoping he can eventually be taken off of high flow oxygen completely and just on regular nasal cannula. Juan denies pain or shortness of breath currently. family says he is eating okay. He does try to joke with us today. CODE STATUS remains DNR CCA without intubation. 05/20/24 Patient seen and evaluated. He is oxygenating much better, now just on 3 L O2 via nasal cannula. His is at bedside. He remains confused and oriented toself and place, but unable to tell me exactly why he is in the hospital. He is eating okay. He has been snacking on some pretzels at bedside. He denies shortness of breath or pain. Case management is working on discharge to [facility]. CODE STATUS remains DNR CCA without intubation. Exam Physical Exam Vital Signs: Temp Pulse Resp BP Pulse Ox O2 Del Method O2 Flow Rate 97.8 F 79 20 116/59 L 100 Nasal Cannula 3 05/20/24 15:57 05/20/24 15:57 05/20/24 15:57 05/20/24 15:57 05/20/24 15:57 05/20/24 15:57 05/20/24 15:57 FiO2 65 05/20/24 01:13 Const General: cooperative and no acute distress Orientation: alert, awake, oriented to person and oriented to place HEENT Head: normal to inspection, normocephalic and atraumatic Ears: hearing grossly impaired Nose: external nose normal Mouth: oral mucosae normal Throat: posterior oropharynx normal Eyes Eyelids: eyelids normal Conjunctivae: conjunctivae normal Sclera: sclerae normal Neck Neck: supple Lymphatic: no lymphadenopathy noted Resp Auscultation: clear to auscultation bilaterally, diminished lung sounds bilaterally, no rales, no rhonchi and no wheezes Cardio Rate: regular rate Rhythm: regular rhythm GI Palpation: soft, no guarding, no masses and nontender Skin General: ecchymosis (several area. worst Left UE) Extrem General: no edema Objective Labs 05/20/24 04:13 05/20/24 04:13 Labs: Laboratory Results - last 24 hr 05/19/24 05/19/24 05/20/24 16:15 20:44 02:57 Corrected WBC Uncorrected WBC Count RBC Hgb Hct MCV MCH MCHC RDW Plt Count MPV Neut % (Auto) Lymph % (Auto) [place] % (Auto) Eos % (Auto) Baso % (Auto) Nucleat RBC Rel Count Neut # (Auto) Lymph # (Auto) [place] # (Auto) Eos # (Auto) Baso # (Auto) PHA Creatinine Clear Sodium Potassium Chloride Carbon Dioxide Anion Gap BUN Creatinine Est GFR (CKD-EPI) Glucose POC Glucose 316 148 137 POC Glucose Comment Calcium 05/20/24 05/20/24 05/20/24 04:13 06:40 11:48 Corrected WBC 21.2 H Uncorrected WBC Count 21.2 H RBC 2.88 L Hgb 9.5 L Hct 28.0 L MCV 97.3 MCH 32.9 MCHC 33.8 RDW 15.5 H Plt Count 270 MPV 8.4 Neut % (Auto) 90.0 Lymph % (Auto) 5.0 [place] % (Auto) 2.8 Eos % (Auto) 1.8 Baso % (Auto) 0.4 Nucleat RBC Rel Count 0.1 Neut # (Auto) 19.0 H Lymph # (Auto) 1.1 [place] # (Auto) 0.6 Eos # (Auto) 0.4 Baso # (Auto) 0.1 PHA Creatinine Clear 66.41 Sodium 139 Potassium 3.1 L Chloride 92 L Carbon Dioxide 39.5 H Anion Gap 10.6 BUN 39 H Creatinine 1.12 Est GFR (CKD-EPI) > 60.0 Glucose 120 H POC Glucose 94 192 POC Glucose Comment Glu2: cleaned meter Calcium 8.0 L Assessment/Plan Assessment/Plan (1) Acute and chronic respiratory failure: Code(s): J96.20 - Acute and chronic respiratory failure, unspecified whether with hypoxiaor hypercapnia (2) Bacteremia due to group B Streptococcus: Code(s): R78.81 - Bacteremia; B95.1 - Streptococcus, group B, as the cause of diseases classified elsewhere (3) Atrial fibrillation with rapid ventricular response: Code(s): I48.91 - Unspecified atrial fibrillation (4) Sepsis: Code(s): A41.9 - Sepsis, unspecified organism (5) Counseling regarding advance directives and goals of care: Code(s): Z71.89 - Other specified counseling Plan 05/20/24 Patient seen and evaluated. He is oxygenating much better, now just on 3 L O2 via nasal cannula. His is at bedside. He remains confused and oriented toself and place, but unable to tell me exactly why he is in the hospital. He is eating okay. He has been snacking on some pretzels at bedside. He denies shortness of breath or pain. Case management is working on discharge to [facility] facility. CODE STATUS remains DNR CCA without intubation. Documented By: Victor M Chaudhry DO 05/20/24 1 606 Signed By: 05/20/[address] [facility]01-10-2025 Progress note Author Shira Nath [facility] Note Date/Time May 20, 2024 1 :14pm [facility] [address] [place] [address] Hospitalist Progress Note Signed Patient: Juan Simon MR#: [id number] : 1955 Acct:[id number] Age/Sex: 68 / M Adm Date: 4 Loc: 4 Room: [address] [place] [address] Type: ADM IN Attending Dr: Shira Nath MD Copies to: ~ Date of Service: 05/20/2024 Subjective Subjective Narrative: Patient was evaluated at bedside, Reports feeling better today, his oxygen requirements significantly better. Less cough and sputum production. Today he is down to 3 L NC . Remained afebrile, WBC up to 21.2. remained on AB. Overall patient is calm and cooperative however he is still confused, states his name, place said hospital, not oriented to year, knows month, seems to be his baseline. Pulmonary following. Exam Physical Exam Vital Signs: Temp Pulse Resp BP Pulse Ox O2 Del Method O2 Flow Rate 97.6 F 72 22 133/70 96 Nasal Cannula 3 05/20/24 11:50 05/20/24 11:50 05/20/24 11:50 05/20/24 11:50 05/20/24 11:50 05/20/24 11:50 05/20/24 11:50 FiO2 65 05/20/24 01:13 Narrative: Const General: cooperative, on nasal cannula HEENT Normal oropharyngeal mucosa without any ulcers or exudates Eyes: Conjunctiva normal Pulmonary Auscultation: diminished breath sounds, no crackles, no wheezes Cardiovascular Rate: normal rate Rhythm: regular rhythm Heart Sounds: S1 normal, S2 normal and no murmurs GI Inspection: non-distended Palpation: soft, not firm and nontender. No rigidity or rebound. Deferred Neuro General: alert, awake and oriented to self, states his name, knows place, not oriented to time. does not know [place] president. No obvious new focal deficit Musculoskeletal: normal range of motion Extrem General: no cyanosis, trace pedal edema Psych Appearance: Calm, cooperative. Objective Lab Results 05/20/24 04:13 05/20/24 04:13 Meds Allergies and Active Meds Allergies gluten Allergy (Unknown, Verified 05/02/24 09:54) Unknown Reaction Active Meds: Active Medications Generic Name Dose Route Start Last Admin Trade Name Freq PRN Reason Stop Dose Admin Acetaminophen 650 mg 05/02/24 17:28 05/20/24 10:13 Acetaminophen 325 Mg Tablet PO 05/02/25 17:27 650 mg Q6H PRN Administration Pain 1-5 or fever Acetazolamide 250 mg 05/21/24 09:00 Acetazolamide 250 Mg Tablet PO 05/21/25 08:59 DAILY EDIE Albuterol 2.5 mg 05/08/24 13:37 Albuterol Neb 2.5 Mg/3 Ml Vial.Neb INHALATION 05/02/25 17:26 Q3H PRN shortness of breath or wheezin Albuterol/Ipratropium 3 ml 05/10/24 14:00 05/20/24 08:14 Ipratropium/Albuterol 0.5-3 Mg 3 Ml Ampul.Neb INHALATION 05/10/25 13:59 3 ml TID EDIE Administration Aspirin 81 mg 05/06/24 09:00 05/20/24 08:49 Aspirin 81 Mg Tablet. PO 05/06/25 08:59 81 mg DAILY EDIE Administration Budesonide/Formoterol Fumarate 2 puff 05/02/24 21:00 05/20/24 08:14 Budesonide/Formoterol 160-4.5 Mcg 60 Puff/6 Gm Hfa.Aer.Ad INHALATION 05/02/25 20:59 2 puff BID EDIE Administration Bumetanide 1 mg 05/21/24 08:00 Bumetanide 1 Mg Tablet PO 05/21/25 07:59 DAILY@0800 EDIE Dextrose 0 gm 05/11/24 08:45 Dextrose 50% In Water 25 Gm/50 Ml Syringe IV-PUSH 05/11/25 08:44 PRN PRN Hypoglycemia Diltiazem HCl 180 mg 05/12/24 09:30 05/20/24 08:51 Diltiazem Cd.24hr 180 Mg Cap.Er.24h PO 05/12/25 09:29 180 mg DAILY EDIE Administration Divalproex Sodium 250 mg 05/11/24 09:00 05/20/24 08:50 Divalproex Sodium 250 Mg Tablet. PO 05/11/25 08:59 250 mg BID EDIE Administration Doxycycline Hyclate 100 mg 05/12/24 21:00 05/20/24 08:51 Doxycycline Hyclate 100 Mg Tablet PO 100 mg BID EDIE Administration Duloxetine HCl 60 mg 05/13/24 09:00 05/20/24 08:51 Duloxetine 60 Mg Capsule. PO 05/13/25 08:59 60 mg DAILY EDIE Administration Enoxaparin Sodium 40 mg 05/09/24 13:04 05/20/24 10:10 Enoxaparin 40 Mg/0.4 Ml Syringe SUBCUT 05/09/25 13:03 40 mg DAILY@1000 EDIE Administration Glucose 0 gm 05/11/24 08:45 Dextrose 40% Gel 15 Gm Tube PO 05/11/25 08:44 PRN PRN Hypoglycemia Guaifenesin 10 ml 05/13/24 20:42 05/13/24 21:03 Guaifenesin Syrup 10 Ml Udc PO 05/13/25 20:41 10 ml Q4H PRN Administration Cough Piperacillin Sod/Tazobactam Sod 4.5 gm in 100 mls @ 25 mls/hr 05/15/24 22:00 05/20/24 05:29 Zosyn IV 25 mls/hr Q8H EDIE Administration Insulin Aspart 0 units 05/11/24 12:00 05/20/24 11:51 Insulin Aspart 300 Units/3 Ml SUBCUT 05/11/25 11:59 3 units TID.WM.HS EDIE Administration Protocol Insulin Human NPH 12 units 05/15/24 11:00 05/20/24 08:52 Insulin Nph Human Isophane 300 Units/3 Ml Insuln.Pen SUBCUT 05/15/25 10:59 Not Given BID EDIE Magnesium Oxide 400 mg 05/11/24 09:00 05/20/24 08:50 Magnesium Oxide 400 Mg Tablet PO 05/11/25 08:59 400 mg TID EDIE Administration Metoprolol Succinate 37.5 mg 05/15/24 06:00 05/20/24 08:50 Metoprolol Succinate 50 Mg Tab.Er.24h PO 05/15/25 05:59 37.5 mg BID EDIE Administration Montelukast Sodium 10 mg 05/02/24 22:00 05/19/24 21:45 Montelukast 10 Mg Tablet PO 05/02/25 21:59 10 mg HS EDIE Administration Nystatin 400,000 unit 05/13/24 09:00 05/20/24 08:52 Nystatin Susp 500,000 Unit/5 Ml Udc PO 05/13/25 08:59 400,000 unit QID EDIE Administration Prednisone 40 mg 05/21/24 09:00 Prednisone 10 Mg Tablet PO 06/02/24 08:59 DAILY EDIE Taper Quetiapine Fumarate 25 mg 05/11/24 22:00 05/19/24 21:45 Quetiapine Fumarate 25 Mg Tablet PO 05/11/25 21:59 25 mg QHS EDIE Administration Sodium Chloride 0 ml 05/02/24 09:53 05/20/24 05:30 Sodium Chloride 0.9 % 10 Ml Syringe IV-PUSH 05/02/25 09:52 10 ml PRN PRN Administration Flush A&P - Hospitalist Assessment/Plan (1) Atrial fibrillation with rapid ventricular response: (2) Bacteremia due to group B Streptococcus: (3) Sepsis: (4) Urinary tract infection: (5) Acute hypoxic respiratory failure: (6) Pneumonia: Plan A-fib with RVR Continue Cardizem and beta-david orally. Patient is off Cardizem drip. Cardiology team does not recommend full dose anticoagulation. EF is normal Acute metabolic encephalopathy, possible seizure MRI could not be done here at [facility]. Neurology team recommended repeat CAT scan which does not show any evolution. Neurology team does not recommend any additional workup and investigation believing that his altered mental status is secondary to metabolic encephalopathy. Valproic acid level is 32.2. Neurology was consulted. Input appreciated. Sepsis, bacteremia UTI, pneumonia, hypoxic respiratory failure Repeat blood cultures are negative. UA is positive for strep and Enterococcus Patient is on high flow oxygen. Trying to wean him down. Patient is on Zosyn and doxycycline as well as Solu-Medrol. vanco was stopped. MRSA cx neg, repeat resp panel neg. Patient was seen by speech who did not recommend any modification of his diet due to not exhibiting any signs and symptoms of aspiration as per speech. Defer further needed diagnostic and therapeutic intervention for his respiratoryand medical management while in ICU to the pulmonary team. Hypomagnesemia Replete as needed DVT prophylaxis Continue Lovenox and aspirin. No full dose anticoagulation by cardiology. Hyperglycemia, poor control. Continue sliding scale. Continue NPH 12 units twice a day with holding parameters. Patient much improved clinically. CM following for placement to SNF at this point. Pulmonary input appreciated. Documented By: Shira Nath MD 05/20/24 13 10 Signed By: <Electronically signed by Shira Nath MD> 05/20/24 4365 [facility] Work Phone: 1(375) 886-608901-10-2025 Progress note Author Jimmy Matias [facility] Note Date/Time May 20, 2024 1 1:36am [facility] [address] [place] [address] Pulmonology Progress Note Signed Patient: Juan Simon MR#: [id number] : 1955 Acct:[id number] Age/Sex: 68 / M Adm Date: 4 Loc: 4P Room: [address] [place] [address] Type: ADM IN Attending Dr: Shira Nath MD Copies to: ~ Date of Service: 05/20/2024 Subjective Subjective Narrative: Patient is sitting in chair with excellent oxygenation on 3 L/min nasal cannula. Exam Physical Exam Vital Signs: Temp Pulse Resp BP Pulse Ox O2 Del Method O2 Flow Rate 97.6 F 73 22 107/60 98 Nasal Cannula 3 05/20/24 08:39 05/20/24 08:39 05/20/24 08:39 05/20/24 08:39 05/20/24 08:39 05/20/24 08:39 05/20/24 08:39 FiO2 65 05/20/24 01:13 Const General: cooperative and disheveled Nutritional Appearance: obese Orientation: alert and awake HEENT Head: normal to inspection Ears: hearing grossly normal bilaterally and external ears normal Nose: external nose normal Face and sinus: normal facial exam Eyes Sclera: sclerae normal Neck Neck: normal visual inspection Resp Effort & Inspection: normal respiratory effort Auscultation: clear to auscultation bilaterally, diminished lung sounds, no rales, no rhonchi and no wheezes Cardio Rate: regular rate Rhythm: regular rhythm Heart Sounds: S1 normal, S2 normal and no murmurs GI Inspection: normal to inspection Palpation: soft and nontender Auscultation: normal bowel sounds Rectal Exam: deferred General: deferred Skin General: no rashes or lesions noted (Warm and dry) Extrem General: no pedal edema Objective Intake and Output I&O - Last 24 Hours: Intake & Output 05/19/24 05/20/24 05/20/24 23:59 07:59 15:59 Intake Total 1050 / 1570 340 / 340 Output Total 2100 / 3350 1500 / 1500 Balance -1050 / -1780 -1160 / -1160 Weight 94.9 kg Labs 05/20/24 04:13 05/20/24 04:13 Assessment/Plan Assessment/Plan (1) Acute and chronic respiratory failure: (2) Sepsis: (3) Atrial fibrillation with rapid ventricular response: (4) Urinary tract infection: (5) Bacteremia due to Streptococcus: Plan Hospital day #17 for patient originally admitted with group B streptococcus bacteremia presumably from urinary tract with acute on chronic hypoxemic respiratory failure with diffuse bilateral infiltrates and episodes of hemoptysis despite Solu-Medrol 40 mg IV every 6 hours as well as Zosyn. * Decrease diuretics and acetazolamide * Replete potassium and magnesium * Change IV steroids to oral steroid taper Documented By: Jimmy Matias MD 5 0800 Signed By: <Electronically signed by MD Jimmy Matias> 05/20/24 1136 [facility] Work Phone: [phone]) 675-135601-10-20[place] [address] Hospitalist Progress Note Signed Patient: Juan Simon MR#: [id number] : 1955 Acct:[id number] Age/Sex: 68 / M Adm Date: 4 Loc: Room: [address] [place] [address] Type: ADM IN Attending Dr: Shira Nath MD Copies to: ~ Date of Service: 05/20/2024 Subjective Subjective Narrative: Patient was evaluated at bedside, Reports feeling better today, his oxygen requirements significantly better. Less cough and sputum production. Today he is down to 3 L NC . Remained afebrile, WBC up to 21.2. remained on AB. Overall patient is calm and cooperative however he is still confused, states his name, place said hospital, not oriented to year, knows month, seems to be his baseline. Pulmonary following. Exam Physical Exam Vital Signs: Temp Pulse Resp BP Pulse Ox O2 Del Method O2 Flow Rate 97.6 F 72 22 133/70 96 Nasal Cannula 3 05/20/24 11:50 05/20/24 11:50 05/20/24 11:50 05/20/24 11:50 05/20/24 11:50 05/20/24 11:50 05/20/24 11:50 FiO2 65 05/20/24 01:13 Narrative: Const General: cooperative, on nasal cannula HEENT Normal oropharyngeal mucosa without any ulcers or exudates Eyes: Conjunctiva normal Pulmonary Auscultation: diminished breath sounds, no crackles, no wheezes Cardiovascular Rate: normal rate Rhythm: regular rhythm Heart Sounds: S1 normal, S2 normal and no murmurs GI Inspection: non-distended Palpation: soft, not firm and nontender. No rigidity or rebound. Deferred Neuro General: alert, awake and oriented to self, states his name, knows place, not oriented to time. does not know [place] president. No obvious new focal deficit Musculoskeletal: normal range of motion Extrem General: no cyanosis, trace pedal edema Psych Appearance: Calm, cooperative. Objective Lab Results 05/20/24 04:13 05/20/24 04:13 Meds Allergies and Active Meds Allergies gluten Allergy (Unknown, Verified 05/02/24 09:54) Unknown Reaction Active Meds: Active Medications Generic Name Dose Route Start Last Admin Trade Name Freq PRN Reason Stop Dose Admin Acetaminophen 650 mg 05/02/24 17:28 05/20/24 10:13 Acetaminophen 325 Mg Tablet PO 05/02/25 17:27 650 mg Q6H PRN Administration Pain 1-5 or fever Acetazolamide 250 mg 05/21/24 09:00 Acetazolamide 250 Mg Tablet PO 05/21/25 08:59 DAILY EDIE Albuterol 2.5 mg 05/08/24 13:37 Albuterol Neb 2.5 Mg/3 Ml Vial.Neb INHALATION 05/02/25 17:26 Q3H PRN shortness of breath or wheezin Albuterol/Ipratropium 3 ml 05/10/24 14:00 05/20/24 08:14 Ipratropium/Albuterol 0.5-3 Mg 3 Ml Ampul.Neb INHALATION 05/10/25 13:59 3 ml TID EDIE Administration Aspirin 81 mg 05/06/24 09:00 05/20/24 08:49 Aspirin 81 Mg Tablet.Dr PO 05/06/25 08:59 81 mg DAILY EDIE Administration Budesonide/Formoterol Fumarate 2 puff 05/02/24 21:00 05/20/24 08:14 Budesonide/Formoterol 160-4.5 Mcg 60 Puff/6 Gm Hfa.Aer.Ad INHALATION 05/02/25 20:59 2 puff BID EDIE Administration Bumetanide 1 mg 05/21/24 08:00 Bumetanide 1 Mg Tablet PO 05/21/25 07:59 DAILY@0800 EDIE Dextrose 0 gm 05/11/24 08:45 Dextrose 50% In Water 25 Gm/50 Ml Syringe IV-PUSH 05/11/25 08:44 PRN PRN Hypoglycemia Diltiazem HCl 180 mg 05/12/24 09:30 05/20/24 08:51 Diltiazem Cd.24hr 180 Mg Cap.Er.24h PO 05/12/25 09:29 180 mg DAILY EDIE Administration Divalproex Sodium 250 mg 05/11/24 09:00 05/20/24 08:50 Divalproex Sodium 250 Mg Tablet. PO 05/11/25 08:59 250 mg BID EDIE Administration Doxycycline Hyclate 100 mg 05/12/24 21:00 05/20/24 08:51 Doxycycline Hyclate 100 Mg Tablet PO 100 mg BID EDIE Administration Duloxetine HCl 60 mg 05/13/24 09:00 05/20/24 08:51 Duloxetine 60 Mg Capsule. PO 05/13/25 08:59 60 mg DAILY EDIE Administration Enoxaparin Sodium 40 mg 05/09/24 13:04 05/20/24 10:10 Enoxaparin 40 Mg/0.4 Ml Syringe SUBCUT 05/09/25 13:03 40 mg DAILY@1000 EDIE Administration Glucose 0 gm 05/11/24 08:45 Dextrose 40% Gel 15 Gm Tube PO 05/11/25 08:44 PRN PRN Hypoglycemia Guaifenesin 10 ml 05/13/24 20:42 05/13/24 21:03 Guaifenesin Syrup 10 Ml Udc PO 05/13/25 20:41 10 ml Q4H PRN Administration Cough Piperacillin Sod/Tazobactam Sod 4.5 gm in 100 mls @ 25 mls/hr 05/15/24 22:00 05/20/24 05:29 Zosyn IV 25 mls/hr Q8H EDIE Administration Insulin Aspart 0 units 05/11/24 12:00 05/20/24 11:51 Insulin Aspart 300 Units/3 Ml SUBCUT 05/11/25 11:59 3 units TID.WM.HS EDIE Administration Protocol Insulin Human NPH 12 units 05/15/24 11:00 05/20/24 08:52 Insulin Nph Human Isophane 300 Units/3 Ml Insuln.Pen SUBCUT 05/15/25 10:59 Not Given BID EDIE Magnesium Oxide 400 mg 05/11/24 09:00 05/20/24 08:50 Magnesium Oxide 400 Mg Tablet PO 05/11/25 08:59 400 mg TID EDIE Administration Metoprolol Succinate 37.5 mg 05/15/24 06:00 05/20/24 08:50 Metoprolol Succinate 50 Mg Tab.Er.24h PO 05/15/25 05:59 37.5 mg BID EDIE Administration Montelukast Sodium 10 mg 05/02/24 22:00 05/19/24 21:45 Montelukast 10 Mg Tablet PO 05/02/25 21:59 10 mg HS EDIE Administration Nystatin 400,000 unit 05/13/24 09:00 05/20/24 08:52 Nystatin Susp 500,000 Unit/5 Ml Udc PO 05/13/25 08:59 400,000 unit QID EDIE Administration Prednisone 40 mg 05/21/24 09:00 Prednisone 10 Mg Tablet PO 06/02/24 08:59 DAILY EDIE Taper Quetiapine Fumarate 25 mg 05/11/24 22:00 05/19/24 21:45 Quetiapine Fumarate 25 Mg Tablet PO 05/11/25 21:59 25 mg QHS EDIE Administration Sodium Chloride 0 ml 05/02/24 09:53 05/20/24 05:30 Sodium Chloride 0.9 % 10 Ml Syringe IV-PUSH 05/02/25 09:52 10 ml PRN PRN Administration Flush A&P - Hospitalist Assessment/Plan (1) Atrial fibrillation with rapid ventricular response: (2) Bacteremia due to group B Streptococcus: (3) Sepsis: (4) Urinary tract infection: (5) Acute hypoxic respiratory failure: (6) Pneumonia: Plan A-fib with RVR Continue Cardizem and beta-david orally. Patient is off Cardizem drip. Cardiology team does not recommend full dose anticoagulation. EF is normal Acute metabolic encephalopathy, possible seizure MRI could not be done here at [facility]. Neurology team recommended repeat CAT scan which does not show any evolution. Neurology team does not recommend any additional workup and investigation believing that his altered mental status is secondary to metabolic encephalopathy. Valproic acid level is 32.2. Neurology was consulted. Input appreciated. Sepsis, bacteremia UTI, pneumonia, hypoxic respiratory failure Repeat blood cultures are negative. UA is positive for strep and Enterococcus Patient is on high flow oxygen. Trying to wean him down. Patient is on Zosyn and doxycycline as well as Solu-Medrol. vanco was stopped. MRSA cx neg, repeat resp panel neg. Patient was seen by speech who did not recommend any modification of his diet due to not exhibitingany signs and symptoms of aspiration as per speech. Defer further needed diagnostic and therapeutic intervention for his respiratoryand medical management while in ICU to the pulmonary team. Hypomagnesemia Replete as needed DVT prophylaxis Continue Lovenox and aspirin. No full dose anticoagulation by cardiology. Hyperglycemia, poor control. Continue sliding scale. Continue NPH 12 units twice a day with holding parameters. Patient much improved clinically. CM following for placement to SNF at this point. Pulmonary input appreciated. Documented By: Shira Nath MD 05/20/24 13 10 Signed By: 05/20/[address] [facility]01-10-20[place] [address] Pulmonology Progress Note Signed Patient: Juan Simon MR#: [id number] : 1955 Acct:[id number] Age/Sex: 68 / M Adm Date: 4 Loc: Room: [address] [place] [address] Type: ADM IN Attending Dr: Shira Nath MD Copies to: ~ Date of Service: 05/20/2024 Subjective Subjective Narrative: Patient is sitting in chair with excellent oxygenation on 3 L/min nasal cannula. Exam Physical Exam Vital Signs: Temp Pulse Resp BP Pulse Ox O2 Del Method O2 Flow Rate 97.6 F 73 22 107/60 98 Nasal Cannula 3 05/20/24 08:39 05/20/24 08:39 05/20/24 08:39 05/20/24 08:39 05/20/24 08:39 05/20/24 08:39 05/20/24 08:39 FiO2 65 05/20/24 01:13 Const General: cooperative and disheveled Nutritional Appearance: obese Orientation: alert and awake HEENT Head: normal to inspection Ears: hearing grossly normal bilaterally and external ears normal Nose: external nose normal Face and sinus: normal facial exam Eyes Sclera: sclerae normal Neck Neck: normal visual inspection Resp Effort & Inspection: normal respiratory effort Auscultation: clear to auscultation bilaterally, diminished lung sounds, no rales, no rhonchi and no wheezes Cardio Rate: regular rate Rhythm: regular rhythm Heart Sounds: S1 normal, S2 normal and no murmurs GI Inspection: normal to inspection Palpation: soft and nontender Auscultation: normal bowel sounds Rectal Exam: deferred General: deferred Skin General: no rashes or lesions noted (Warm and dry) Extrem General: no pedal edema Objective Intake and Output I&O - Last 24 Hours: Intake & Output 05/19/24 05/20/24 05/20/24 23:59 07:59 15:59 Intake Total 1050 / 1570 340 / 340 Output Total 2100 / 3350 1500 / 1500 Balance -1050 / -1780 -1160 / -1160 Weight 94.9 kg Labs 05/20/24 04:13 05/20/24 04:13 Assessment/Plan Assessment/Plan (1) Acute and chronic respiratory failure: (2) Sepsis: (3) Atrial fibrillation with rapid ventricular response: (4) Urinary tract infection: (5) Bacteremia due to Streptococcus: Plan Hospital day #17 for patient originally admitted with group B streptococcus bacteremia presumably from urinary tract with acute on chronic hypoxemic respiratory failure with diffuse bilateral infiltrates and episodes of hemoptysis despite Solu-Medrol 40 mg IV every 6 hours as well as Zosyn. * Decrease diuretics and acetazolamide * Replete potassium and magnesium * Change IV steroids to oral steroid taper Documented By: Jimmy Matias MD 5 0855 Signed By: 05/20/[address] [place], [place] 8452901-09-2025 Progress note Author Jimmy Matias [facility] Note Date/Time May 19, 2024 5: 12pm [facility] [address] [place] [address] Pulmonology Progress Note Signed Patient: Juan Simon MR#: [id number] : 1955 Acct:[id number] Age/Sex: 68 / M Adm Date: 4 Loc: Room: 3I8083-8 Type: ADM IN Attending Dr: Shira Nath MD Copies to: ~ Date of Service: 05/19/2024 Subjective Subjective Narrative: Patient notes significant diuresis and notes some improvement in his breathing. Exam Physical Exam Vital Signs: Temp Pulse Resp BP Pulse Ox O2 Del Method O2 Flow Rate 98.4 F 79 21 119/79 96 Nasal Cannula 6 05/18/24 20:14 05/19/24 15:55 05/19/24 15:55 05/19/24 15:37 05/19/24 16:34 05/19/24 16:34 05/19/24 16:34 FiO2 50 05/19/24 15:55 Const General: cooperative and disheveled Nutritional Appearance: obese Orientation: alert, awake, not oriented x3, oriented to person, oriented to place and not oriented to time HEENT Head: normal to inspection Ears: hearing grossly normal bilaterally and external ears normal Nose: external nose normal Face and sinus: normal facial exam Eyes Sclera: sclerae normal Neck Neck: normal visual inspection Resp Effort & Inspection: normal respiratory effort Auscultation: clear to auscultation bilaterally, diminished lung sounds, no rales, no rhonchi and no wheezes Cardio Rate: regular rate Rhythm: regular rhythm Heart Sounds: S1 normal, S2 normal and no murmurs GI Inspection: normal to inspection Palpation: soft and nontender Auscultation: normal bowel sounds Rectal Exam: deferred General: deferred Skin General: no rashes or lesions noted (Warm and dry) Extrem General: no pedal edema Objective Intake and Output I&O - Last 24 Hours: Intake & Output 05/19/24 05/19/24 05/19/24 07:59 15:59 23:59 Intake Total 420 / 520 100 / 520 Output Total 1250 / 1250 Balance -830 / -730 100 / -730 Weight 94.6 kg Labs 05/19/24 04:35 05/19/24 04:35 Microbiology Micro: Microbiology 3 05/16/24 17:15 MRSA Culture - Final Nasal Assessment/Plan Assessment/Plan (1) Acute and chronic respiratory failure: (2) Sepsis: (3) Atrial fibrillation with rapid ventricular response: (4) Urinary tract infection: (5) Bacteremia due to Streptococcus: Plan Hospital day #16 for patient originally admitted with group B streptococcus bacteremia presumably from urinary tract with acute on chronic hypoxemic respiratory failure with diffuse bilateral infiltrates and episodes of hemoptysis despite Solu-Medrol 40 mg IV every 6 hours as well as Zosyn. * Will discontinue vancomycin with MRSA culture negative x 2 days * Decrease Solu-Medrol to every 8 hours * Continue diuresis as renal function and hemodynamics allows with notable improvement in gas exchange * Start acetazolamide to prevent retention of bicarbonate * Continue supportive care Documented By: Jimmy Matias MD 5 1711 Signed By: <Electronically signed by MD Jimmy Matias> 05/19/24 1712 [facility] Work Phone: 1(119) 725-557001-09-2025 [place] [address] Pulmonology Progress Note Signed Patient: Juan Simon MR#: [id number] : 1955 Acct:[id number] Age/Sex: 68 / M Adm Date: 4 Loc: Room: [address] [place] [address] Type: ADM IN Attending Dr: Shira Nath MD Copies to: ~ Date of Service: 05/19/2024 Subjective Subjective Narrative: Patient notes significant diuresis and notes some improvement in his breathing. Exam Physical Exam Vital Signs: Temp Pulse Resp BP Pulse Ox O2 Del Method O2 Flow Rate 98.4 F 79 21 119/79 96 Nasal Cannula 6 05/18/24 20:14 05/19/24 15:55 05/19/24 15:55 05/19/24 15:37 05/19/24 16:34 05/19/24 16:34 05/19/24 16:34 FiO2 50 05/19/24 15:55 Const General: cooperative and disheveled Nutritional Appearance: obese Orientation: alert, awake, not oriented x3, oriented to person, oriented to place and not oriented to time HEENT Head: normal to inspection Ears: hearing grossly normal bilaterally and external ears normal Nose: external nose normal Face and sinus: normal facial exam Eyes Sclera: sclerae normal Neck Neck: normal visual inspection Resp Effort & Inspection: normal respiratory effort Auscultation: clear to auscultation bilaterally, diminished lung sounds, no rales, no rhonchi and no wheezes Cardio Rate: regular rate Rhythm: regular rhythm Heart Sounds: S1 normal, S2 normal and no murmurs GI Inspection: normal to inspection Palpation: soft and nontender Auscultation: normal bowel sounds Rectal Exam: deferred General: deferred Skin General: no rashes or lesions noted (Warm and dry) Extrem General: no pedal edema Objective Intake and Output I&O - Last 24 Hours: Intake & Output 05/19/24 05/19/24 05/19/24 07:59 15:59 23:59 Intake Total 420 / 520 100 / 520 Output Total 1250 / 1250 Balance -830 / -730 100 / -730 Weight 94.6 kg Labs 05/19/24 04:35 05/19/24 04:35 Microbiology Micro: Microbiology 3 05/16/24 17:15 MRSA Culture - Final Nasal Assessment/Plan Assessment/Plan (1) Acute and chronic respiratory failure: (2) Sepsis: (3) Atrial fibrillation with rapid ventricular response: (4) Urinary tract infection: (5) Bacteremia due to Streptococcus: Plan Hospital day #16 for patient originally admitted with group B streptococcus bacteremia presumably from urinary tract with acute on chronic hypoxemic respiratory failure with diffuse bilateral infiltrates and episodes of hemoptysis despite Solu-Medrol 40 mg IV every 6 hours as well as Zosyn. * Will discontinue vancomycin with MRSA culture negative x 2 days * Decrease Solu-Medrol to every 8 hours * Continue diuresis as renal function and hemodynamics allows with notable improvement in gas exchange * Start acetazolamide to prevent retention of bicarbonate * Continue supportive care Documented By: Jimmy Matias MD 5 1711 Signed By: 05/19/[address] [facility]01-09-2025 Progress note Author Victor M Chaudhry [facility] Note Date/Time May 19, 2024 2: 44pm [facility] [address] [place] [address] Palliative Care Progress Note Signed Patient: Juan Simon MR#: [id number] : 1955 Acct:[id number] Age/Sex: 68 / M Adm Date: 4 Loc: 4 Room: [address] [place] [address] Type: ADM IN Attending Dr: Shira Nath MD Copies to: ~ Date of Service: 05/19/2024 Subjective Subjective HPI: Mr. Simon 66-year-old male with past medical history significant for asthma,celiac disease, DJD, chronic back pain status post spinal cord stimulator with nerve ablations, frequent falls, migraines, MANUEL. He presented to the ED with acute mental status change and was found to have A-fib with RVR and sepsis on May 02, 2024. Today is hospitalization day #15. Patient has seen multiplesubspecialists?including pulmonary/critical care, infectious disease, cardiology, neurology. He has had problems with delirium and confusion during his hospitalization. He was treated with antibiotics for sepsis/bacteremia. His CODE STATUS is currently full code. Unfortunately, he has failed to improvesignificantly with his respiratory status and he is on maximal high flow O2 settings?100% FiO2, 40 L/min. Plans are for transfer to LTAC, possibly this week. Palliative medicine was consulted to help with goals of care and with advance care planning. Patient seen and evaluated. He denies laying in his hospital bed with his at bedside. Patient is able to answer questions appropriately, but is confused on his medical situation. He brings up his cancer treatment like it recently happened, but his says that he did have lymphoma about 17 years ago and hasbeen in remission since. Juan is able to tell me he is from [facility] and went to [employer], graduating in 1975. He has 1 stepchild?[facility]. He works several different jobs in the past, including a [employer]. He has been on medical disability since his mid 50s because of a back injury he sustained. Spiritual things are important to him, he belongs to [facility] [facility] [employer] in [place]. 30 minutes spent discussing goals of care and advance care planning. We reviewed Juan current condition and answered questions. Juan did have limited insight to his condition but was able to participate some in the goals of care discussions. Unfortunately, Juan continues with severe hypoxemic respiratory failure with diffuse bilateral infiltrates despite steroids and antibiotics. Plans are being made to transfer to LTAC for continued care of hissevere respiratory failure. Juan and his , Miranda, do want to proceed with LTAC transfer when available. They said they prefer [facility] as #1 choice. We also discussed resuscitation preferences. After much discussion,Juan was able to indicate that he prefers no intubation and he would not wantCPR if his heart were to stop. Therefore patient and his requested CODE STATUS change to DNR CCA without intubation. His agreed with his choices of not going into ventilator machine in the future and not having CPR if his heart were to stop. Thank you for the consult. CODE STATUS was adjusted to DNR CCA without intubation per and patient request. Plans are for possible transfer to LTAC when this can be arranged. Miranda did ask me to call their daughter, Hortencia, who is a hospice nurse, but I was unable to get a hold of her. Will follow-up tomorrow. Please call if questions. 05/19/24 Patient seen evaluated. Meds and chart reviewed. He appears more comfortable today, sitting at bedside chair. His O2 needs have decreased markedly compared to yesterday. He now is on high flow oxygen at 35 L/min, 55% FiO2. TeleSitter has been also removed. Family is pleased that his oxygen requirements have [place]. They are hoping he can eventually be taken off of high flow oxygen completely and just on regular nasal cannula. Juan denies pain or shortness of breath currently. family says he is eating okay. He does try to joke with us today. CODE STATUS remains DNR CCA without intubation. Exam Physical Exam Vital Signs: Temp Pulse Resp BP Pulse Ox O2 Del Method O2 Flow Rate 98.4 F 82 20 124/72 97 High Flow 35 05/18/24 20:14 05/19/24 13:10 05/19/24 13:10 05/19/24 12:00 05/19/24 13:07 05/19/24 12:00 05/19/24 13:07 FiO2 55 05/19/24 13:07 Const General: cooperative and no acute distress Orientation: alert, awake, oriented to person and oriented to place HEENT Head: normal to inspection, normocephalic and atraumatic Ears: hearing grossly impaired Nose: external nose normal Mouth: oral mucosae normal Throat: posterior oropharynx normal Eyes Eyelids: eyelids normal Conjunctivae: conjunctivae normal Sclera: sclerae normal Neck Neck: supple Lymphatic: no lymphadenopathy noted Resp Auscultation: clear to auscultation bilaterally, diminished lung sounds bilaterally, no rales, no rhonchi and no wheezes Cardio Rate: regular rate Rhythm: regular rhythm GI Palpation: soft, no guarding, no masses and nontender Skin General: ecchymosis (several area. worst Left UE) Extrem General: no edema Objective Labs 05/19/24 04:35 05/19/24 04:35 Labs: Laboratory Results - last 24 hr 05/18/24 05/18/2405/18/25 14:35 16:17 21:23 Corrected WBC Uncorrected WBC Count RBC Hgb Hct MCV MCH MCHC RDW Plt Count MPV Neut % (Auto) Lymph % (Auto) [place] % (Auto) Eos % (Auto) Baso % (Auto) Nucleat RBC Rel Count Neut # (Auto) Lymph # (Auto) [place] # (Auto) Eos # (Auto) Baso # (Auto) PHA Creatinine Clear Sodium Potassium Chloride Carbon Dioxide Anion Gap BUN Creatinine Est GFR (CKD-EPI) Glucose POC Glucose 261 253 Calcium Magnesium Vancomycin Trough 22.7 H 05/19/24 05/19/24 05/19/24 04:35 07:45 11:40 Corrected WBC 17.2 H Uncorrected WBC Count 17.2 H RBC 2.91 L Hgb 9.5 L Hct 27.9 L MCV 96.0 MCH 32.8 MCHC 34.1 RDW 15.1 H Plt Count 265 MPV 7.8 Neut % (Auto) 91.1 Lymph % (Auto) 5.6 [place] % (Auto) 3.2 Eos % (Auto) 0.0 Baso % (Auto) 0.1 Nucleat RBC Rel Count 0.0 Neut # (Auto) 15.7 H Lymph # (Auto) 1.0 [place] # (Auto) 0.6 Eos # (Auto) 0.0 Baso # (Auto) 0.0 PHA Creatinine Clear 83.57 Sodium 139 Potassium 3.5 Chloride 89 L Carbon Dioxide 42.5 H Anion Gap 11.0 BUN 33 H Creatinine 0.89 Est GFR (CKD-EPI) > 60.0 Glucose 87 POC Glucose 127 206 Calcium 8.1 L Magnesium 1.9 Vancomycin Trough Microbiology Microbiology: Microbiology 05/16/24 17:15 Nasal MRSA Culture - Final Assessment/Plan Assessment/Plan (1) Acute and chronic respiratory failure: Code(s): J96.20 - Acute and chronic respiratory failure, unspecified whether with hypoxiaor hypercapnia (2) Bacteremia due to group B Streptococcus: Code(s): R78.81 - Bacteremia; B95.1 - Streptococcus, group B, as the cause of diseases classified elsewhere (3) Atrial fibrillation with rapid ventricular response: Code(s): I48.91 - Unspecified atrial fibrillation (4) Sepsis: Code(s): A41.9 - Sepsis, unspecified organism (5) Counseling regarding advance directives and goals of care: Code(s): Z71.89 - Other specified counseling Plan 05/19/24 Patient seen evaluated. Meds and chart reviewed. He appears more comfortable today, sitting at bedside chair. His O2 needs have decreased markedly compared to yesterday. He now is on high flow oxygen at 35 L/min, 55% FiO2. TeleSitter has been also removed. Family is pleased that his oxygen requirements have g[place]own. They are hoping he can eventually be taken off of high flow oxygen completely and just on regular nasal cannula. Juan denies pain or shortness of breath currently. family says he is eating okay. He does try to joke with us today. CODE STATUS remains DNR CCA without intubation. Documented By: Victor M Chaudhry DO 05/19/24 1 441 Signed By: <Electronically signed by DO Victor M Chaudhry> 05/19/24 1448 [facility] Work Phone: 1(412) 541-482201-09-2025 [place] [address] Palliative Care Progress Note Signed Patient: Juan Simon MR#: [id number] : 1955 Acct:[id number] Age/Sex: 68 / M Adm Date: 4 Loc: Room: [address] [place] [address] Type: ADM IN Attending Dr: Shira Nath MD Copies to: ~ Date of Service: 05/19/2024 Subjective Subjective HPI: Mr. Simon 66-year-old male with past medical history significant for asthma,celiac disease, DJD, chronic back pain status post spinal cord stimulator with nerve ablations, frequent falls, migraines, MANUEL. He presented to the ED with acute mental status change and was found to have A-fib with RVRand sepsis on May 02, 2024. Today is hospitalization day #15. Patient has seen multiplesubspecialists?including pulmonary/critical care, infectious disease, cardiology, neurology. He has had problems with delirium and confusion during his hospitalization. He was treated with antibiotics for sepsis/bacteremia. His CODE STATUS is currently full code. Unfortunately, he has failed to improvesigni ficantly with his respiratory status and he is on maximal high flow O2 settings?100% FiO2, 40 L/min. Plans are for transfer to LTAC, possibly this week. Palliative medicine was consulted to help withgoals of care and with advance care planning. Patient seen and evaluated. He denies laying in his hospital bed with his at bedside. Patient is able to answer questions appropriately, but is confused on his medical situation. He brings up his cancer treatment like it recently happened, but his says that he did have lymphoma about 17 years ago and hasbeen in remission since. Juan is able to tell me he is from [facility] and went to [employer], graduating in 1975. He has 1 stepchild?Hortencia [facility]. He works several different jobs in the past, including a [employer]. He has been on medical disability since his mid 50s because of a back injury he sustained. Spiritual things are important to him, he belongs to [employer] in [place]. 30 minutes spent discussing goals of care and advance care planning. We reviewed Juan current condition and answered questions. Juan did have limited insight to his condition but was able to participate some in the goals of care discussions. Unfortunately, Juan continues with severe hypoxemic respiratory failure with diffuse bilateral infiltrates despite steroids and antibiotics. Plans are being made to transfer to LTAC for continued care of hissevere respiratory failure. uJan and his , Miranda, do want to proceed with LTAC transfer when available. They said they prefer [facility] as #1 choice. We also discussed resuscitation preferences. After much discussion,Juan was able to indicate that he prefers no intubation and he would not wantCPR if his heart were to stop. Therefore patient and his requested CODE STATUS change to DNR CCA without intubation. His agreed with his choices of not going into ventilator machine in the future and not having CPR if his heart were to stop. Thank you for the consult. CODE STATUS was adjusted to DNR CCA without intubation per and patient request. Plans are for possible transfer to LTAC when this can be arranged. Miranda did ask me to call their daughter, Hortencia, who is a hospice nurse, but I was unable to get a hold of her. Will follow-up tomorrow. Please call if questions. 05/19/24 Patient seen evaluated. Meds and chart reviewed. He appears more comfortable today, sitting at bedside chair. His O2 needs have decreased markedly compared to yesterday. He now is on high flow oxygenat 35 L/min, 55% FiO2. TeleSitter has been also removed. Family is pleased that his oxygen requirements have gonedown. They are hoping he can eventually be taken off of high flow oxygen completely and just on regular nasal cannula. Juan denies pain or shortness of breath currently. family says he is eating okay. He does try to joke with us today. CODE STATUS remains DNR CCA without intubation. Exam Physical Exam Vital Signs: Temp Pulse Resp BP Pulse Ox O2 Del Method O2 Flow Rate 98.4 F 82 20 124/72 97 High Flow 35 05/18/24 20:14 05/19/24 13:10 05/19/24 13:10 05/19/24 12:00 05/19/24 13:07 05/19/24 12:00 05/19/24 13:07 FiO2 55 05/19/24 13:07 Const General: cooperative and no acute distress Orientation: alert, awake, oriented to person and oriented to place HEENT Head: normal to inspection, normocephalic and atraumatic Ears: hearing grossly impaired Nose: external nose normal Mouth: oral mucosae normal Throat: posterior oropharynx normal Eyes Eyelids: eyelids normal Conjunctivae: conjunctivae normal Sclera: sclerae normal Neck Neck: supple Lymphatic: no lymphadenopathy noted Resp Auscultation: clear to auscultation bilaterally, diminished lung sounds bilaterally, no rales, no rhonchi and no wheezes Cardio Rate: regular rate Rhythm: regular rhythm GI Palpation: soft, no guarding, no masses and nontender Skin General: ecchymosis (several area. worst Left UE) Extrem General: no edema Objective Labs 05/19/24 04:35 05/19/24 04:35 Labs: Laboratory Results - last 24 hr 05/18/24 05/18/24 05/18/24 14:35 16:17 21:23 Corrected WBC Uncorrected WBC Count RBC Hgb Hct MCV MCH MCHC RDW Plt Count MPV Neut % (Auto) Lymph % (Auto) [place] % (Auto) Eos % (Auto) Baso % (Auto) Nucleat RBC Rel Count Neut # (Auto) Lymph # (Auto) [place] # (Auto) Eos # (Auto) Baso # (Auto) PHA Creatinine Clear Sodium Potassium Chloride Carbon Dioxide Anion Gap BUN Creatinine Est GFR (CKD-EPI) Glucose POC Glucose 261 253 Calcium Magnesium Vancomycin Trough 22.7 H 05/19/24 05/19/24 05/19/24 04:35 07:45 11:40 Corrected WBC 17.2 H Uncorrected WBC Count 17.2 H RBC 2.91 L Hgb 9.5 L Hct 27.9 L MCV 96.0 MCH 32.8 MCHC 34.1 RDW 15.1 H Plt Count 265 MPV 7.8 Neut % (Auto) 91.1 Lymph % (Auto) 5.6 [place] % (Auto) 3.2 Eos % (Auto) 0.0 Baso % (Auto) 0.1 Nucleat RBC Rel Count 0.0 Neut # (Auto) 15.7 H Lymph # (Auto) 1.0 [place] # (Auto) 0.6 Eos # (Auto) 0.0 Baso # (Auto) 0.0 PHA Creatinine Clear 83.57 Sodium 139 Potassium 3.5 Chloride 89 L Carbon Dioxide 42.5 H Anion Gap 11.0 BUN 33 H Creatinine 0.89 Est GFR (CKD-EPI) > 60.0 Glucose 87 POC Glucose 127 206 Calcium 8.1 L Magnesium 1.9 Vancomycin Trough Microbiology Microbiology: Microbiology 05/16/24 17:15 Nasal MRSA Culture - Final Assessment/Plan Assessment/Plan (1) Acute and chronic respiratory failure: Code(s): J96.20 - Acute and chronic respiratory failure, unspecified whether with hypoxiaor hypercapnia (2) Bacteremia due to group B Streptococcus: Code(s): R78.81 - Bacteremia; B95.1 - Streptococcus, group B, as the cause of diseases classified elsewhere (3) Atrial fibrillation with rapid ventricular response: Code(s): I48.91 - Unspecified atrial fibrillation (4) Sepsis: Code(s): A41.9 - Sepsis, unspecified organism (5) Counseling regarding advance directives and goals of care: Code(s): Z71.89 - Other specified counseling Plan 05/19/24 Patient seen evaluated. Meds and chart reviewed. He appears more comfortable today, sitting at bedside chair. His O2 needs have decreased markedly compared to yesterday. He now is on high flow oxygenat 35 L/min, 55% FiO2. TeleSitter has been also removed. Family is pleased that his oxygen requirements have g[place]. They are hoping he can eventually be taken off of high flow oxygen completely and just on regular nasal cannula. Juan denies pain or shortness of breath currently. family says he is eating okay. He does try to joke with us today. CODE STATUS remains DNR CCA without intubation. Documented By: Victor M Chaudhry DO 05/19/24 1 441 Signed By: 05/19/[address] [facility]01-08-2025 Consult note Author Victor M Chaudhry [facility] Note Date/Time May 18, 2024 5: 44pm [facility] [address] [place] [address] Palliative Care Consult Note Signed Patient: Juan Simon MR#: [id number] : 1955 Acct:[id number] Age/Sex: 68 / M Adm Date: 4 Loc: Room: [address] [place] [address] Type: ADM IN Attending Dr: Shira Nath MD Copies to: Tatiana Benson Jr, DO Larry E Jr Robinson, DO Obaydah M Daromar, MD~ HPI Data of Consult Date of Consult: 05/18/2024 Requesting Physician: Shira Nath MD Primary Care Provider: Ambika Benson DO Consult Narrative Reason for Consult: Advance care planning, goals of care HPI: Mr. Simon 66-year-old male with past medical history significant for asthma,celiac disease, DJD, chronic back pain status post spinal cord stimulator with nerve ablations, frequent falls, migraines, MANUEL. He presented to the ED with acute mental status change and was found to have A-fib with RVR and sepsis on May 02, 2024. Today is hospitalization day #15. Patient has seen multiplesubspecialists?including pulmonary/critical care, infectious disease, cardiology, neurology. He has had problems with delirium and confusion during his hospitalization. He was treated with antibiotics for sepsis/bacteremia. His CODE STATUS is currently full code. Unfortunately, he has failed to improvesignificantly with his respiratory status and he is on maximal high flow O2 settings?100% FiO2, 40 L/min. Plans are for transfer to LTAC, possibly this week. Palliative medicine was consulted to help with goals of care and with advance care planning. Patient seen and evaluated. He denies laying in his hospital bed with his at bedside. Patient is able to answer questions appropriately, but is confused on his medical situation. He brings up his cancer treatment like it recently happened, but his says that he did have lymphoma about 17 years ago and hasbeen in remission since. Juan is able to tell me he is from [facility] and went to [employer], graduating in 1975. He has 1 stepchild?Hortencia [facility]. He works several different jobs in the past, including a [employer]. He has been on medical disability since his mid 50s because of a back injury he sustained. Spiritual things are important to him, he belongs to [employer] in [place]. 30 minutes spent discussing goals of care and advance care planning. We reviewed Juan current condition and answered questions. Juan did have limited insight to his condition but was able to participate some in the goals of care discussions. Unfortunately, Juan continues with severe hypoxemic respiratory failure with diffuse bilateral infiltrates despite steroids and antibiotics. Plans are being made to transfer to LTAC for continued care of hissevere respiratory failure. Juan and his , Miranda, do want to proceed with LTAC transfer when available. [facility] We also discussed resuscitation preferences. After much discussion,Juan was able to indicate that he prefers no intubation and he would not wantCPR if his heart were to stop. Therefore patient and his requested CODE STATUS change to DNR CCA without intubation. His agreed with his choices of not going into ventilator machine in the future and not having CPR if his heart were to stop. Thank you for the consult. CODE STATUS was adjusted to DNR CCA without intubation per and patient request. Plans are for possible transfer to LTAC when this can be arranged. Miranda did ask me to call their daughter, Hortencia, who is a hospice nurse, but I was unable to get a hold of her. Will follow-up tomorrow. Please call if questions. Review of Systems Constitutional Constitutional: Reports fatigue and Reports weakness Eyes Eyes: Reports system reviewed and no additional complaints, except as documented ENT Ears, Nose, Mouth, and Throat: Reports system reviewed and no additional complaints, except as documented Cardiovascular Cardiovascular: Reports system reviewed and no additional complaints, except as documented Respiratory Respiratory: Reports dyspnea and Reports dyspnea on exertion Gastrointestinal Gastrointestinal: Reports system reviewed and no additional complaints, except as documented Musculoskeletal Musculoskeletal: Reports muscle weakness [facility] Medical History Back pain with history of spinal surgery Back injuries T-cell lymphoma Remission. FHx: cholecystectomy Celiac disease Surgical History H/O laminectomy Family History Father Grandparent Legacy FamHx Relation: Maternal Grand Father Family history of colon cancer Legacy FamHx Relation: Maternal Grand Father Grandparent Legacy FamHx Relation: Maternal Grand Mother Grandparent Legacy FamHx Relation: Paternal Grand Father Grandparent Legacy FamHx Relation: Paternal Grand Mother Mother Cancer Legacy FamHx Problem: Diagnosed with Cancer Family history of pancreatic cancer Social History Smoking Status: Never smoker Substance Use Type: None Allergies & Medications Medications and Allergies Allergies gluten Allergy (Unknown, Verified 05/02/24 09:54) Unknown Reaction Home Medications albuterol sulfate 2.5 mg/3 mL (0.083 %) solution for nebulization 2.5 mg inhalation Q2H PRN shortness of breath or wheezing 02/11/17 [History Confirmed 01/10/24] albuterol sulfate 90 mcg/actuation aerosol inhaler (Proventil HFA) 2 puff inhalation Q2H PRN shortness of breath or wheezing 02/11/17 [History Confirmed 05/02/24] atenolol 25 mg tablet 25 mg PO DAILY 02/11/17 [History Confirmed 05/02/24] cyclobenzaprine 10 mg tablet 10 mg PO TID 02/11/17 [History Confirmed 05/02/24] divalproex 250 mg tablet,delayed release 500 mg PO HS 02/11/17 [History Confirmed 05/02/24] fluticasone 500 mcg-salmeterol 50 mcg/dose blistr powdr for inhalation 1 inh inhalation BID 02/11/17 [History Confirmed 05/02/24] indomethacin 25 mg capsule 25 mg PO .QD 02/11/17 [History Confirmed 01/10/24] montelukast 10 mg tablet 10 mg PO HS 02/11/17 [History Confirmed 05/02/24] celecoxib 200 mg capsule 200 mg PO DAILY 12/27/23 [History Confirmed 05/02/24] doxepin 25 mg capsule 25 mg PO HS 12/27/23 [History Confirmed 05/02/24] duloxetine 30 mg capsule,delayed release 30 mg PO BID 12/27/23 [History Confirmed 05/02/24] meclizine 25 mg tablet 25 mg PO TID PRN dizziness 12/27/23 [History Confirmed 05/02/24] phentermine 37.5 mg tablet 37.5 mg PO DAILY 12/27/23 [History Confirmed 05/02/24] nystatin 100,000 unit/mL oral suspension 400,000 unit (4 mL) PO QID 7 days #112 mL 12/29/23 [Rx Confirmed 05/02/24] metoprolol succinate 50 mg tablet,extended release 24 hr 50 mg PO BID 30 days #60 tabs 05/10/24 [Rx] Active Medications Acetaminophen (Acetaminophen 325 Mg Tablet) 650 mg PO Q6H PRN PRN Reason: Pain 1-5 or fever Stop: 05/02/25 17:27 Last Admin: 05/09/24 22:00 Dose: 650 mg Albuterol (Albuterol Neb 2.5 Mg/3 Ml Vial.Neb) 2.5 mg INHALATION Q3H PRN PRN Reason: shortness of breath or wheezin Stop: 05/02/25 17:26 Albuterol/Ipratropium (Ipratropium/Albuterol 0.5-3 Mg 3 Ml Ampul.Neb) 3 ml INHALATION TID [facility] Stop: 05/10/25 13:59 Last Admin: 05/18/24 14:25 Dose: 3 ml Aspirin (Aspirin 81 Mg Tablet.Dr) 81 mg PO DAILY [facility] Stop: 05/06/25 08:59 Last Admin: 05/18/24 08:51 Dose: 81 mg Budesonide/Formoterol Fumarate (Budesonide/Formoterol 160-4.5 Mcg 60 Puff/6 Gm Hfa.Aer.Ad) 2 puff INHALATION BID [facility] Stop: 05/02/25 20:59 Last Admin: 05/18/24 08:40 Dose: 2 puff Dextrose (Dextrose 50% In Water 25 Gm/50 Ml Syringe) 0 gm IV-PUSH PRN PRN PRN Reason: Hypoglycemia Stop: 05/11/25 08:44 Diltiazem HCl (Diltiazem Cd.24hr 180 Mg Cap.Er.24h) 180 mg PO DAILY [facility] Stop: 05/12/25 09:29 Last Admin: 05/18/24 08:52 Dose: 180 mg Divalproex Sodium (Divalproex Sodium 250 Mg Tablet.Dr) 250 mg PO BID [facility] Stop: 05/11/25 08:59 Last Admin: 05/18/24 08:52 Dose: 250 mg Doxycycline Hyclate (Doxycycline Hyclate 100 Mg Tablet) 100 mg PO BID [facility] Last Admin: 05/18/24 08:51 Dose: 100 mg Duloxetine HCl (Duloxetine 60 Mg Capsule.Dr) 60 mg PO DAILY [facility] Stop: 05/13/25 08:59 Last Admin: 05/18/24 08:52 Dose: 60 mg Enoxaparin Sodium (Enoxaparin 40 Mg/0.4 Ml Syringe) 40 mg SUBCUT DAILY@1000 [facility] Stop: 05/09/25 13:03 Last Admin: 05/18/24 09:15 Dose: Not Given Glucose (Dextrose 40% Gel 15 Gm Tube) 0 gm PO PRN PRN PRN Reason: Hypoglycemia Stop: 05/11/25 08:44 Guaifenesin (Guaifenesin Syrup 10 Ml Udc) 10 ml PO Q4H PRN PRN Reason: Cough Stop: 05/13/25 20:41 Last Admin: 05/13/24 21:03 Dose: 10 ml Piperacillin Sod/Tazobactam Sod (Zosyn) 4.5 gm in 100 mls @ 25 mls/hr IV Q8H [facility] Last Admin: 05/18/24 13:07 Dose: 25 mls/hr Vancomycin HCl (Vancomycin) 0.75 gm in 250 mls @ 250 mls/hr IV Q12H [facility] Insulin Aspart (Insulin Aspart 300 Units/3 Ml) 0 units SUBCUT TID.WM.HS [facility]; Protocol Stop: 05/11/25 11:59 Last Admin: 05/18/24 11:48 Dose: 3 units Insulin Human NPH (Insulin Nph Human Isophane 300 Units/3 Ml Insuln.Pen) 12 units SUBCUT BID [facility] Stop: 05/15/25 10:59 Last Admin: 05/18/24 08:52 Dose: 12 units Magnesium Oxide (Magnesium Oxide 400 Mg Tablet) 400 mg PO TID [facility] Stop: 05/11/25 08:59 Last Admin: 05/18/24 13:07 Dose: 400 mg Methylprednisolone Sodium Succinate (Methylprednisolone Sod Succ/Pf 40 Mg/Ml (1ml) Vial) 40 mg IV-PUSH Q6H [facility]IE Stop: 05/12/25 13:59 Last Admin: 05/18/24 13:07 Dose: 40 mg Metoprolol Succinate (Metoprolol Succinate 50 Mg Tab.Er.24h) 37.5 mg PO BID [facility] Stop: 05/15/25 05:59 Last Admin: 05/18/24 08:52 Dose: 37.5 mg Montelukast Sodium (Montelukast 10 Mg Tablet) 10 mg PO HS EDIE Stop: 05/02/25 21:59 Last Admin: 05/17/24 21:11 Dose: 10 mg Nystatin (Nystatin Susp 500,000 Unit/5 Ml Udc) 400,000 unit PO QID EDIE Stop: 05/13/25 08:59 Last Admin: 05/18/24 13:07 Dose: 400,000 unit Quetiapine Fumarate (Quetiapine Fumarate 25 Mg Tablet) 25 mg PO QHS [facility]IE Stop: 05/11/25 21:59 Last Admin: 05/17/24 21:11 Dose: 25 mg Sodium Chloride (Sodium Chloride 0.9 % 10 Ml Syringe) 0 ml IV-PUSH PRN PRN PRN Reason: Flush Stop: 05/02/25 09:52 Last Admin: 05/18/24 06:34 Dose: 10 ml Vancomycin HCl (Vancomycin - Pharmacy Dosing 1 Each Miscell) 1 each IV ONCE PRN; Protocol PRN Reason: ZZ.Pharmacy Consult Exam Physical Exam Vital Signs: Temp Pulse Resp BP Pulse Ox O2 Del Method O2 Flow Rate 98 F 90 22 118/62 96 High Flow 40 05/18/24 11:45 05/18/24 14:25 05/18/24 14:25 05/18/24 11:45 05/18/24 14:25 05/18/24 11:45 05/18/24 14:25 FiO2 90 05/18/24 14:25 Const General: cooperative and no acute distress Orientation: alert, awake, oriented to person and oriented to place HEENT Head: normal to inspection, normocephalic and atraumatic Ears: hearing grossly impaired Nose: external nose normal Mouth: oral mucosae normal Throat: posterior oropharynx normal Eyes Eyelids: eyelids normal Conjunctivae: conjunctivae normal Sclera: sclerae normal Neck Neck: supple Lymphatic: no lymphadenopathy noted Resp Auscultation: clear to auscultation bilaterally, diminished lung sounds bilaterally, no rales, no rhonchi and no wheezes Cardio Rate: regular rate Rhythm: regular rhythm GI Palpation: soft, no guarding, no masses and nontender Skin General: ecchymosis (several area. worst Left UE) Extrem General: no edema Results - Palliative Care Labs 05/18/24 05:47 05/18/24 05:47 Labs: Laboratory Last Values Corrected WBC 22.5 X10E3/uL (4.1-10.5) H 05/18/24 05:47 Uncorrected WBC Count 22.5 x10E3/uL (4.1-10.5) H 05/18/24 05:47 RBC 3.14 x10E6/uL (3.90-5.60) L 05/18/24 05:47 Hgb 10.3 g/dL (13.0-17.0) L 05/18/24 05:47 Hct 30.6 % (38.8-50.0) L 05/18/24 05:47 MCV 97.5 fl (83.5-101) 05/18/24 05:47 MCH 32.7 pg (27.5-35.2) 05/18/24 05:47 MCHC 33.5 g/dL (32.5-35.6) 05/18/24 05:47 RDW 15.6 % (12.0-14.8) H 05/18/24 05:47 Plt Count 306 x10E3/uL (150-450) 05/18/24 05:47 MPV 7.6 fl (6.6-10.1) 05/18/24 05:47 Neut % (Auto) 91.7 % (.) 05/18/24 05:47 Lymph % (Auto) 4.9 % (.) 05/18/24 05:47 [place] % (Auto) 3.4 % (.) 05/18/24 05:47 Eos % (Auto) 0.0 % (.) 05/18/24 05:47 Baso % (Auto) 0.0 % (.) 05/18/24 05:47 Nucleat RBC Rel Count 0.0 /100 WBC (0-0.5) 05/18/24 05:47 Neut # (Auto) 20.6 x10E3/uL (1.8-7.7) H 05/18/24 05:47 Lymph # (Auto) 1.1 x10E3/uL (1.00-4.8) 05/18/24 05:47 [place] # (Auto) 0.8 x10E3/uL (0.0-0.8) 05/18/24 05:47 Eos # (Auto) 0.0 x10E3/uL (0.0-0.45) 05/18/24 05:47 Baso # (Auto) 0.0 x10E3/uL (0.0-0.2) 05/18/24 05:47 Monocyte Dist Width 30.23 % (0.00-20.00) H 05/02/24 10:15 Toxic Granulation Slight 05/02/24 10:15 Toxic Vacuolation Moderate 05/02/24 10:15 Platelet Estimate Increased (Normal) 05/13/24 03:48 Plt Morphology Comment Normal (Normal) 05/13/24 03:48 RBC Morphology N/A 05/13/24 03:48 Polychromasia Slight 05/13/24 03:48 Poikilocytosis Slight 05/13/24 03:48 Anisocytosis Slight 05/13/24 03:48 Stomatocytes Slight 05/13/24 03:48 Rouleaux Slight 05/13/24 03:48 PT 14.3 Seconds (9.0-12.9) H 05/08/24 03:30 INR 1.2 05/08/24 03:30 APTT 28.3 Seconds (25.1-36.5) 05/02/24 10:15 Sample Site Right radial 05/13/24 05:40 ABG pH 7.47 (7.35-7.45) H 05/13/24 05:40 ABG pCO2 47.5 mmHg (35.0-45.0) H 05/13/24 05:40 ABG pO2 86.4 mmHg (80.0-100.0) 05/13/24 05:40 ABG HCO3 33.4 mmol/L (23.0-29.0) H 05/13/24 05:40 ABG Total CO2 34.9 mmol/L (23.0-27.0) H 05/13/24 05:40 ABG O2 Saturation 96.2 % (95.0-100.0) 05/13/24 05:40 ABG O2 Content 7.0 mmol/L (6.6-9.7) 05/13/24 05:40 ABG Base Excess 8.5 mmol/L (-3.0-3.0) H 05/13/24 05:40 VBG pH 7.37 (7.32-7.43) 05/02/24 13:21 VBG pCO2 37.0 mmHg (38.0-50.0) L 05/02/24 13:21 VBG pO2 < 48.1 mmHg (35.0-45.0) H 05/02/24 13:21 VBG HCO3 21.1 mmol/L (23.0-29.0) L 05/02/24 13:21 VBG Total CO2 22.2 mmol/L (24.0-29.0) L 05/02/24 13:21 VBG O2 Saturation 73.9 % (73.0-76.0) 05/02/24 13:21 VBG Base Excess -3.7 mmol/L (-3.0-3.0) L 05/02/24 13:21 O2 Delivery Device High flow 05/13/24 05:40 Liter Flow 6 L/min 05/08/24 14:12 FiO2 85 % 05/13/24 05:40 Critical Value 05/13/24 05:40 PHA Creatinine Clear 92.14 05/18/24 05:47 Sodium 138 mmol/L (136-145) 05/18/24 05:47 Potassium 4.0 mmol/L (3.5-5.1) 05/18/24 05:47 Chloride 92 mmol/L (98-107) L 05/18/24 05:47 Carbon Dioxide 37.9 mmol/L (21.0-31.0) H 05/18/24 05:47 Anion Gap 12.1 mEq/L (6.0-15.0) 05/18/24 05:47 BUN 32 mg/dL (7-25) H 05/18/24 05:47 Creatinine 0.82 mg/dL (0.70-1.30) 05/18/24 05:47 Est GFR (CKD-EPI) > 60.0 mL/Min 05/18/24 05:47 Glucose 136 mg/dL (70-100) H 05/18/24 05:47 POC Glucose 163 mg/dl 05/18/24 11:45 POC Glucose Comment Glu2: cleaned meter 05/18/24 11:45 POC Glucose Comment Sliding scale covera 05/15/24 08:12 Lactic Acid 1.6 mmol/L (0.5-2.2) 05/13/24 03:48 Calcium 8.4 mg/dL (8.6-10.3) L 05/18/24 05:47 Phosphorus 3.8 mg/dL (2.5-4.5) 05/10/24 05:16 Magnesium 2.1 mg/dL (1.9-2.7) 05/13/24 03:48 Magnesium 2.1 mg/dL (1.9-2.7) 05/13/24 03:48 Total Bilirubin 1.1 mg/dl (0.3-1.0) H 05/16/24 08:56 Direct Bilirubin 0.10 mg/dL (0.03-0.18) 05/08/24 03:30 Indirect Bilirubin 0.8 mg/dL 05/08/24 03:30 AST 17 U/L (13-39) 05/16/24 08:56 ALT 25 U/L (7-52) 05/16/24 08:56 Alkaline Phosphatase 54 U/L (34-104) 05/16/24 08:56 Ammonia 24 umol/L (11-35) 05/02/24 10:40 Total Creatine Kinase 20 U/L (30-223) L 05/13/24 03:48 Troponin I High Sens 68.6 pg/mL (0.0-20.0) H* 05/08/24 03:30 B-Natriuretic Peptide 499.0 pg/mL (5-100) H 05/08/24 03:30 Total Protein 5.7 gm/dL (6.4-8.9) L 05/16/24 08:56 Albumin 3.0 gm/dL (3.5-5.7) L 05/16/24 08:56 Globulin 2.7 gm/dL 05/16/24 08:56 Albumin/Globulin Ratio 1.1 05/16/24 08:56 Triglycerides 104 mg/dL (0-149) 05/03/24 04:45 Cholesterol 82 mg/dL (140-200) L 05/03/24 04:45 LDL Cholesterol, Calc 46 mg/dL (0-100) 05/03/24 04:45 VLDL Cholesterol 20 mg/dL 05/03/24 04:45 HDL Cholesterol 15 mg/dL (23-92) L 05/03/24 04:45 Cholesterol/HDL Ratio 5.5 (<5.0) 05/03/24 04:45 TSH 3rd Generation 1.87 uIU/mL (0.45-5.33) 05/02/24 10:15 Prolactin 68.03 ng/mL (2.64-13.13) H 05/13/24 03:48 Urine Color Yellow (Yellow) 05/02/24 10:45 Urine Appearance Cloudy (Clear) A 05/02/24 10:45 Urine pH 6.0 (5.0-9.0) 05/02/24 10:45 Ur Specific [place] 1.024 (1.001-1.030) 05/02/24 10:45 Urine Protein 30 mg/dL (Negative) H 05/02/24 10:45 Urine Glucose (UA) Normal mg/dL (Normal) 05/02/24 10:45 Urine Ketones 2+ (Negative) H 05/02/24 10:45 Urine Occult Blood 2+ (Negative) H 05/02/24 10:45 Urine Nitrite Negative (Negative) 05/02/24 10:45 Urine Bilirubin Negative (Negative) 05/02/24 10:45 Urine Urobilinogen 4 mg/dL (Normal) H 05/02/24 10:45 Ur Leukocyte Esterase 4+ (Negative) H 05/02/24 10:45 Urine RBC 50-100 /HPF (0-4) H 05/02/24 10:45 Urine WBC Innumerable /HPF (0-4) H 05/02/24 10:45 Urine WBC Clumps Occasional /LPF (None Seen) H 05/02/24 10:45 Ur Squamous Epith Cells 1-2 /HPF (0-2) 05/02/24 10:45 Ur Transition Epith Cell 1-2 /HPF (0-1) H 05/02/24 10:45 Urine Bacteria 1+ /HPF (None Seen) H 05/02/24 10:45 Hyaline Casts None /LPF (0-8) 05/02/24 10:45 Urine Mucus 1+ /LPF A 05/02/24 10:45 Vancomycin Peak 45.4 ug/mL (20.0-40.0) H 05/18/24 05:47 Vancomycin Trough 22.7 ug/mL (10.0-20.0) H 05/18/24 14:35 Urine Opiates Screen Negative (Negative) 05/02/24 10:45 Ur Barbiturates Screen Negative (Negative) 05/02/24 10:45 Valproic Acid 32.3 ug/mL (50.0-100.0) L 05/13/24 03:48 Ur Phencyclidine Scrn Negative (Negative) 05/02/24 10:45 Ur Amphetamines Screen Positive (Negative) H 05/02/24 10:45 U Benzodiazepines Scrn Negative (Negative) 05/02/24 10:45 Urine Cocaine Screen Negative (Negative) 05/02/24 10:45 U Marijuana (THC) Screen Negative (Negative) 05/02/24 10:45 Ethyl Alcohol < 10 mg/dL 05/02/24 10:15 % Ethyl Alcohol TNP 05/02/24 10:15 COVID-19 Clin Com Not detected (Not Detecte) 05/17/24 15:20 Microbiology Microbiology: 05/16/24 17:15 MRSA Culture - Final Nasal 05/17/24 15:20 Respiratory Panel (PCR) - Final Nasopharyngeal 05/14/24 06:40 Aerobic Culture - Final Sputum - Expectorated May albicans Gram Stain - Final Assessment/Plan (1) Acute and chronic respiratory failure: Code(s): J96.20 - Acute and chronic respiratory failure, unspecified whether with hypoxia or hypercapnia (2) Bacteremia due to group B Streptococcus: Code(s): R78.81 - Bacteremia; B95.1 - Streptococcus, group B, as the cause of diseases classified elsewhere (3) Atrial fibrillation with rapid ventricular response: Code(s): I48.91 - Unspecified atrial fibrillation (4) Sepsis: Code(s): A41.9 - Sepsis, unspecified organism (5) Counseling regarding advance directives and goals of care: Code(s): Z71.89 - Other specified counseling Plan Patient seen and evaluated. He denies laying in his hospital bed with his at bedside. Patient is able to answer questions appropriately, but is confused on his medical situation. He brings up his cancer treatment like it recently happened, but his says that he did have lymphoma about 17 years ago and has been in remission since. Juan is able to tell me he is from [facility] and went to [employer], graduating in 1975. He has 1 stepchild?Hortencia [facility]. He works several different jobs in the past, including a [employer]. He has been on medical disability since his mid 50s because of a back injury he sustained. Spiritual things are important to him, he belongs to [employer] [facility] in [place]. 30 minutes spent discussing goals of care and advance care planning. We reviewed Juan current condition and answered questions. Juan did have limited insight to his condition but was able to participate some in the goals of care discussions. Unfortunately, Juan continues with severe hypoxemic respiratory failure with diffuse bilateral infiltrates despite steroids and antibiotics. Plans are being made to transfer to LTAC for continued care of his severe respiratory failure. Juan and his , Miranda, do want to proceed with LTAC transfer when available. They said they prefer [facility] as #1 choice. We also discussed resuscitation preferences. After much discussion, Juan was able to indicate that he prefers no intubation and he would not want CPR if his heart were to stop. Therefore patient and his requested CODE STATUS change to DNR CCA without intubation. His agreed with his choices of not going into ventilator machine in the future and not having CPR if his heart were to stop. Thank you for the consult. CODE STATUS was adjusted to DNR CCA without intubation per and patient request. Plans are for possible transfer to LTAC when this can be arranged. Miranda did ask me to call their daughter, Hortencia, who is a hospice nurse, but I was unable to get a hold of her. Will follow-up tomorrow. Please call if questions. Documented By: Victor M Chaudhry DO 05/18/24 1 875 Signed By: <Electronically signed by DO Victor M Chaudhry> 05/18/24 4966 [facility] Work Phone: [phone] 682-349101-08-[address] [address] Palliative Care Consult Note Signed Patient: Juan Simon MR#: [id number] : 1955 Acct:[id number] Age/Sex: 68 / M Adm Date: 4 Loc: 4P Room: [address] [place] [address] Type: ADM IN Attending Dr: Shira Nath MD Copies to: Tatiana Benson Jr, DO Larry E Jr Robinson,DO Shira Nath MD~ HPI Data of Consult Date of Consult: 05/18/2024 Requesting Physician: Shira Nath MD Primary Care Provider: Ambika Benson DO Consult Narrative Reason for Consult: Advance care planning, goals of care HPI: Mr. Simon 66-year-old male with past medical history significant for asthma,celiac disease, DJD, chronic back pain status post spinal cord stimulator with nerve ablations, frequent falls, migraines, MANUEL. He presented to the ED with acute mental status change and was found to have A-fib with RVRand sepsis on May 02, 2024. Today is hospitalization day #15. Patient has seen multiplesubspecialists?including pulmonary/critical care, infectious disease, cardiology, neurology. He has had problems with delirium and confusion during his hospitalization. He was treated with antibiotics for sepsis/bacteremia. His CODE STATUS is currently full code. Unfortunately, he has failed to improvesigni ficantly with his respiratory status and he is on maximal high flow O2 settings?100% FiO2, 40 L/min. Plans are for transfer to LTAC, possibly this week. Palliative medicine was consulted to help withgoals of care and with advance care planning. Patient seen and evaluated. He denies laying in his hospital bed with his at bedside. Patient is able to answer questions appropriately, but is confused on his medical situation. He brings up his cancer treatment like it recently happened, but his says that he did have lymphoma about 17 years ago and hasbeen in remission since. Juan is able to tell me he is from [facility] and went to [employer], graduating in 1975. He has 1 stepchild?[facility]. He works several different jobs in the past, including a [employer]. He has been on medical disability since his mid 50s because of a back injury he sustained. Spiritual things are important to him, he belongs to [facility] [facility] [employer] in [place]. 30 minutes spent discussing goals of care and advance care planning. We reviewed Juan current condition and answered questions. Juan did have limited insight to his condition but was able to participate some in the goals of care discussions. Unfortunately, Juan continues with severe hypoxemic respiratory failure with diffuse bilateral infiltrates despite steroids and antibiotics. Plans are being made to transfer to LTAC for continued care of hissevere respiratory failure. Juan and his , Miranda, do want to proceed with LTAC transfer when available. They said they prefer [facility] as #1 choice. We also discussed resuscitation preferences. After much discussion,Juan was able to indicate that he prefers no intubation and he would not wantCPR if his heart were to stop. Therefore patient and his requested CODE STATUS change to DNR CCA without intubation. His agreed with his choices of not going into ventilator machine in the future and not having CPR if his heart were to stop. Thank you for the consult. CODE STATUS was adjusted to DNR CCA without intubation per and patient request. Plans are for possible transfer to LTAC when this can be arranged. Miranda did ask me to call their daughter, Hortencia, who is a hospice nurse, but I was unable to get a hold of her. Will follow-up tomorrow. Please call if questions. Review of Systems Constitutional Constitutional: Reports fatigue and Reports weakness Eyes Eyes: Reports system reviewed and no additional complaints, except as documented ENT Ears, Nose, Mouth, and Throat: Reports system reviewed and no additional complaints, except as documented Cardiovascular Cardiovascular: Reports system reviewed and no additional complaints, except as documented Respiratory Respiratory: Reports dyspnea and Reports dyspnea on exertion Gastrointestinal Gastrointestinal: Reports system reviewed and no additional complaints, except as documented Musculoskeletal Musculoskeletal: Reports muscle weakness PMFSH Medical History Back pain with history of spinal surgery Back injuries T-cell lymphoma Remission. FHx: cholecystectomy Celiac disease Surgical History H/O laminectomy Family History Father Grandparent Legacy FamHx Relation: Maternal Grand Father Family history of colon cancer Legacy FamHx Relation: Maternal Grand Father Grandparent Legacy FamHx Relation: Maternal Grand Mother Grandparent Legacy FamHx Relation: Paternal Grand Father Grandparent Legacy FamHx Relation: Paternal Grand Mother Mother Cancer Legacy FamHx Problem: Diagnosed with Cancer Family history of pancreatic cancer Social History Smoking Status: Never smoker Substance Use Type: None Allergies & Medications Medications and Allergies Allergies gluten Allergy (Unknown, Verified 05/02/24 09:54) Unknown Reaction Home Medications albuterol sulfate 2.5 mg/3 mL (0.083 %) solution for nebulization 2.5 mg inhalation Q2H PRN shortness of breath or wheezing 02/11/17 [History Confirmed 01/10/24] albuterol sulfate 90 mcg/actuation aerosol inhaler (Proventil HFA) 2 puff inhalation Q2H PRN shortness of breath or wheezing 02/11/17 [History Confirmed 05/02/24] atenolol 25 mg tablet 25 mg PO DAILY 02/11/17 [History Confirmed 05/02/24] cyclobenzaprine 10 mg tablet 10 mg PO TID 02/11/17 [History Confirmed 05/02/24] divalproex 250 mg tablet,delayed release 500 mg PO HS 02/11/17 [History Confirmed 05/02/24] fluticasone 500 mcg-salmeterol 50 mcg/dose blistr powdr for inhalation 1 inh inhalation BID 02/11/17 [History Confirmed 05/02/24] indomethacin 25 mg capsule 25 mg PO .QD 02/11/17 [History Confirmed 01/10/24] montelukast 10 mg tablet 10 mg PO HS 02/11/17 [History Confirmed 05/02/24] celecoxib 200 mg capsule 200 mg PO DAILY 12/27/23 [History Confirmed 05/02/24] doxepin 25 mg capsule 25 mg PO HS 12/27/23 [History Confirmed 05/02/24] duloxetine 30 mg capsule,delayed release 30 mg PO BID 12/27/23 [History Confirmed 05/02/24] meclizine 25 mg tablet 25 mg PO TID PRN dizziness 12/27/23 [History Confirmed 05/02/24] phentermine 37.5 mg tablet 37.5 mg PO DAILY 12/27/23 [History Confirmed 05/02/24] nystatin 100,000 unit/mL oral suspension 400,000 unit (4 mL) PO QID 7 days #112 mL 12/29/23 [Rx Confirmed 05/02/24] metoprolol succinate 50 mg tablet,extended release 24 hr 50 mg PO BID 30 days #60 tabs 05/10/24 [Rx] Active Medications Acetaminophen (Acetaminophen 325 Mg Tablet) 650 mg PO Q6H PRN PRN Reason: Pain 1-5 or fever Stop: 05/02/25 17:27 Last Admin: 05/09/24 22:00 Dose: 650 mg Albuterol (Albuterol Neb 2.5 Mg/3 Ml Vial.Neb) 2.5 mg INHALATION Q3H PRN PRN Reason: shortness of breath or wheezin Stop: 05/02/25 17:26 Albuterol/Ipratropium (Ipratropium/Albuterol 0.5-3 Mg 3 Ml Ampul.Neb) 3 ml INHALATION TID [facility] Stop: 05/10/25 13:59 Last Admin: 05/18/24 14:25 Dose: 3 ml Aspirin (Aspirin 81 Mg Tablet.) 81 mg PO DAILY [facility] Stop: 05/06/25 08:59 Last Admin: 05/18/24 08:51 Dose: 81 mg Budesonide/Formoterol Fumarate (Budesonide/Formoterol 160-4.5 Mcg 60 Puff/6 Gm Hfa.Aer.Ad) 2 puff INHALATION BID [facility] Stop: 05/02/25 20:59 Last Admin: 05/18/24 08:40 Dose: 2 puff Dextrose (Dextrose 50% In Water 25 Gm/50 Ml Syringe) 0 gm IV-PUSH PRN PRN PRN Reason: Hypoglycemia Stop: 05/11/25 08:44 Diltiazem HCl (Diltiazem Cd.24hr 180 Mg Cap.Er.24h) 180 mg PO DAILY [facility] Stop: 05/12/25 09:29 Last Admin: 05/18/24 08:52 Dose: 180 mg Divalproex Sodium (Divalproex Sodium 250 Mg Tablet.) 250 mg PO BID [facility] Stop: 05/11/25 08:59 Last Admin: 05/18/24 08:52 Dose: 250 mg Doxycycline Hyclate (Doxycycline Hyclate 100 Mg Tablet) 100 mg PO BID [facility] [place] Last Admin: 05/18/24 08:51 Dose: 100 mg Duloxetine HCl (Duloxetine 60 Mg Capsule.Dr) 60 mg PO DAILY [facility] [place] Stop: 05/13/25 08:59 Last Admin: 05/18/24 08:52 Dose: 60 mg Enoxaparin Sodium (Enoxaparin 40 Mg/0.4 Ml Syringe) 40 mg SUBCUT DAILY@1000 [facility] [place] Stop: 05/09/25 13:03 Last Admin: 05/18/24 09:15 Dose: Not Given Glucose (Dextrose 40% Gel 15 Gm Tube) 0 gm PO PRN PRN PRN Reason: Hypoglycemia Stop: 05/11/25 08:44 Guaifenesin (Guaifenesin Syrup 10 Ml Udc) 10 ml PO Q4H PRN PRN Reason: Cough Stop: 05/13/25 20:41 Last Admin: 05/13/24 21:03 Dose: 10 ml Piperacillin Sod/Tazobactam Sod (Zosyn) 4.5 gm in 100 mls @ 25 mls/hr IV Q8H [facility] Last Admin: 05/18/24 13:07 Dose: 25 mls/hr Vancomycin HCl (Vancomycin) 0.75 gm in 250 mls @ 250 mls/hr IV Q12H [facility] Insulin Aspart (Insulin Aspart 300 Units/3 Ml) 0 units SUBCUT TID.WM.HS [facility]; Protocol Stop: 05/11/25 11:59 Last Admin: 05/18/24 11:48 Dose: 3 units Insulin Human NPH (Insulin Nph Human Isophane 300 Units/3 Ml Insuln.Pen) 12 units SUBCUT BID [facility] Stop: 05/15/25 10:59 Last Admin: 05/18/24 08:52 Dose: 12 units Magnesium Oxide (Magnesium Oxide 400 Mg Tablet) 400 mg PO TID [facility] Stop: 05/11/25 08:59 Last Admin: 05/18/24 13:07 Dose: 400 mg Methylprednisolone Sodium Succinate (Methylprednisolone Sod Succ/Pf 40 Mg/Ml (1ml) Vial) 40 mg IV-PUSH Q6H [facility] Stop: 05/12/25 13:59 Last Admin: 05/18/24 13:07 Dose: 40 mg Metoprolol Succinate (Metoprolol Succinate 50 Mg Tab.Er.24h) 37.5 mg PO BID [facility] Stop: 05/15/25 05:59 Last Admin: 05/18/24 08:52 Dose: 37.5 mg Montelukast Sodium (Montelukast 10 Mg Tablet) 10 mg PO HS EDIE Stop: 05/02/25 21:59 Last Admin: 05/17/24 21:11 Dose: 10 mg Nystatin (Nystatin Susp 500,000 Unit/5 Ml Udc) 400,000 unit PO QID EDIE Stop: 05/13/25 08:59 Last Admin: 05/18/24 13:07 Dose: 400,000 unit Quetiapine Fumarate (Quetiapine Fumarate 25 Mg Tablet) 25 mg PO QHS EDIE Stop: 05/11/25 21:59 Last Admin: 05/17/24 21:11 Dose: 25 mg Sodium Chloride (Sodium Chloride 0.9 % 10 Ml Syringe) 0 ml IV-PUSH PRN PRN PRN Reason: Flush Stop: 05/02/25 09:52 Last Admin: 05/18/24 06:34 Dose: 10 ml Vancomycin HCl (Vancomycin - Pharmacy Dosing 1 Each Miscell) 1 each IV ONCE PRN; Protocol PRN Reason: ZZ.Pharmacy Consult Exam Physical Exam Vital Signs: Temp Pulse Resp BP Pulse Ox O2 Del Method O2 Flow Rate 98 F 90 22 118/62 96 High Flow 40 05/18/24 11:45 05/18/24 14:25 05/18/24 14:25 05/18/24 11:45 05/18/24 14:25 05/18/24 11:45 05/18/24 14:25 FiO2 90 05/18/24 14:25 Const General: cooperative and no acute distress Orientation: alert, awake, oriented to person and oriented to place HEENT Head: normal to inspection, normocephalic and atraumatic Ears: hearing grossly impaired Nose: external nose normal Mouth: oral mucosae normal Throat: posterior oropharynx normal Eyes Eyelids: eyelids normal Conjunctivae: conjunctivae normal Sclera: sclerae normal Neck Neck: supple Lymphatic: no lymphadenopathy noted Resp Auscultation: clear to auscultation bilaterally, diminished lung sounds bilaterally, no rales, no rhonchi and no wheezes Cardio Rate: regular rate Rhythm: regular rhythm GI Palpation: soft, no guarding, no masses and nontender Skin General: ecchymosis (several area. worst Left UE) Extrem General: no edema Results - Palliative Care Labs 05/18/24 05:47 05/18/24 05:47 Labs: Laboratory Last Values Corrected WBC 22.5 X10E3/uL (4.1-10.5) H 05/18/24 05:47 Uncorrected WBC Count 22.5 x10E3/uL (4.1-10.5) H 05/18/24 05:47 RBC 3.14 x10E6/uL (3.90-5.60) L 05/18/24 05:47 Hgb 10.3 g/dL (13.0-17.0) L 05/18/24 05:47 Hct 30.6 % (38.8-50.0) L 05/18/24 05:47 MCV 97.5 fl (83.5-101) 05/18/24 05:47 MCH 32.7 pg (27.5-35.2) 05/18/24 05:47 MCHC 33.5 g/dL (32.5-35.6) 05/18/24 05:47 RDW 15.6 % (12.0-14.8) H 05/18/24 05:47 Plt Count 306 x10E3/uL (150-450) 05/18/24 05:47 MPV 7.6 fl (6.6-10.1) 05/18/24 05:47 Neut % (Auto) 91.7 % (.) 05/18/24 05:47 Lymph % (Auto) 4.9 % (.) 05/18/24 05:47 [place] % (Auto) 3.4 % (.) 05/18/24 05:47 Eos % (Auto) 0.0 % (.) 05/18/24 05:47 Baso % (Auto) 0.0 % (.) 05/18/24 05:47 Nucleat RBC Rel Count 0.0 /100 WBC (0-0.5) 05/18/24 05:47 Neut # (Auto) 20.6 x10E3/uL (1.8-7.7) H 05/18/24 05:47 Lymph # (Auto) 1.1 x10E3/uL (1.00-4.8) 05/18/24 05:47 [place] # (Auto) 0.8 x10E3/uL (0.0-0.8) 05/18/24 05:47 Eos # (Auto) 0.0 x10E3/uL (0.0-0.45) 05/18/24 05:47 Baso # (Auto) 0.0 x10E3/uL (0.0-0.2) 05/18/24 05:47 Monocyte Dist Width 30.23 % (0.00-20.00) H 05/02/24 10:15 Toxic Granulation Slight 05/02/24 10:15 Toxic Vacuolation Moderate 05/02/24 10:15 Platelet Estimate Increased (Normal) 05/13/24 03:48 Plt Morphology Comment Normal (Normal) 05/13/24 03:48 RBC Morphology N/A 05/13/24 03:48 Polychromasia Slight 05/13/24 03:48 Poikilocytosis Slight 05/13/24 03:48 Anisocytosis Slight 05/13/24 03:48 Stomatocytes Slight 05/13/24 03:48 Rouleaux Slight 05/13/24 03:48 PT 14.3 Seconds (9.0-12.9) H 05/08/24 03:30 INR 1.2 05/08/24 03:30 APTT 28.3 Seconds (25.1-36.5) 05/02/24 10:15 Sample Site Right radial 05/13/24 05:40 ABG pH 7.47 (7.35-7.45) H 05/13/24 05:40 ABG pCO2 47.5 mmHg (35.0-45.0) H 05/13/24 05:40 ABG pO2 86.4 mmHg (80.0-100.0) 05/13/24 05:40 ABG HCO3 33.4 mmol/L (23.0-29.0) H 05/13/24 05:40 ABG Total CO2 34.9 mmol/L (23.0-27.0) H 05/13/24 05:40 ABG O2 Saturation 96.2 % (95.0-100.0) 05/13/24 05:40 ABG O2 Content 7.0 mmol/L (6.6-9.7) 05/13/24 05:40 ABG Base Excess 8.5 mmol/L (-3.0-3.0) H 05/13/24 05:40 VBG pH 7.37 (7.32-7.43) 05/02/24 13:21 VBG pCO2 37.0 mmHg (38.0-50.0) L 05/02/24 13:21 VBG pO2 < 48.1 mmHg (35.0-45.0) H 05/02/24 13:21 VBG HCO3 21.1 mmol/L (23.0-29.0) L 05/02/24 13:21 VBG Total CO2 22.2 mmol/L (24.0-29.0) L 05/02/24 13:21 VBG O2 Saturation 73.9 % (73.0-76.0) 05/02/24 13:21 VBG Base Excess -3.7 mmol/L (-3.0-3.0) L 05/02/24 13:21 O2 Delivery Device High flow 05/13/24 05:40 Liter Flow 6 L/min 05/08/24 14:12 FiO2 85 % 05/13/24 05:40 Critical Value 05/13/24 05:40 PHA Creatinine Clear 92.14 05/18/24 05:47 Sodium 138 mmol/L (136-145) 05/18/24 05:47 Potassium 4.0 mmol/L (3.5-5.1) 05/18/24 05:47 Chloride 92 mmol/L (98-107) L 05/18/24 05:47 Carbon Dioxide 37.9 mmol/L (21.0-31.0) H 05/18/24 05:47 Anion Gap 12.1 mEq/L (6.0-15.0) 05/18/24 05:47 BUN 32 mg/dL (7-25) H 05/18/24 05:47 Creatinine 0.82 mg/dL (0.70-1.30) 05/18/24 05:47 Est GFR (CKD-EPI) > 60.0 mL/Min 05/18/24 05:47 Glucose 136 mg/dL (70-100) H 05/18/24 05:47 POC Glucose 163 mg/dl 05/18/24 11:45 POC Glucose Comment Glu2: cleaned meter 05/18/24 11:45 POC Glucose Comment Sliding scale covera 05/15/24 08:12 Lactic Acid 1.6 mmol/L (0.5-2.2) 05/13/24 03:48 Calcium 8.4 mg/dL (8.6-10.3) L 05/18/24 05:47 Phosphorus 3.8 mg/dL (2.5-4.5) 05/10/24 05:16 Magnesium 2.1 mg/dL (1.9-2.7) 05/13/24 03:48 Magnesium 2.1 mg/dL (1.9-2.7) 05/13/24 03:48 Total Bilirubin 1.1 mg/dl (0.3-1.0) H 05/16/24 08:56 Direct Bilirubin 0.10 mg/dL (0.03-0.18) 05/08/24 03:30 Indirect Bilirubin 0.8 mg/dL 05/08/24 03:30 AST 17 U/L (13-39) 05/16/24 08:56 ALT 25 U/L (7-52) 05/16/24 08:56 Alkaline Phosphatase 54 U/L (34-104) 05/16/24 08:56 Ammonia 24 umol/L (11-35) 05/02/24 10:40 Total Creatine Kinase 20 U/L (30-223) L 05/13/24 03:48 Troponin I High Sens 68.6 pg/mL (0.0-20.0) H* 05/08/24 03:30 B-Natriuretic Peptide 499.0 pg/mL (5-100) H 05/08/24 03:30 Total Protein 5.7 gm/dL (6.4-8.9) L 05/16/24 08:56 Albumin 3.0 gm/dL (3.5-5.7) L 05/16/24 08:56 Globulin 2.7 gm/dL 05/16/24 08:56 Albumin/Globulin Ratio 1.1 05/16/24 08:56 Triglycerides 104 mg/dL (0-149) 05/03/24 04:45 Cholesterol 82 mg/dL (140-200) L 05/03/24 04:45 LDL Cholesterol, Calc 46 mg/dL (0-100) 05/03/24 04:45 VLDL Cholesterol 20 mg/dL 05/03/24 04:45 HDL Cholesterol 15 mg/dL (23-92) L 05/03/24 04:45 Cholesterol/HDL Ratio 5.5 (<5.0) 05/03/24 04:45 TSH 3rd Generation 1.87 uIU/mL (0.45-5.33) 05/02/24 10:15 Prolactin 68.03 ng/mL (2.64-13.13) H 05/13/24 03:48 Urine Color Yellow (Yellow) 05/02/24 10:45 Urine Appearance Cloudy (Clear) A 05/02/24 10:45 Urine pH 6.0 (5.0-9.0) 05/02/24 10:45 Ur Specific [place] 1.024 (1.001-1.030) 05/02/24 10:45 Urine Protein 30 mg/dL (Negative) H 05/02/24 10:45 Urine Glucose (UA) Normal mg/dL (Normal) 05/02/24 10:45 Urine Ketones 2+ (Negative) H 05/02/24 10:45 Urine Occult Blood 2+ (Negative) H 05/02/24 10:45 Urine Nitrite Negative (Negative) 05/02/24 10:45 Urine Bilirubin Negative (Negative) 05/02/24 10:45 Urine Urobilinogen 4 mg/dL (Normal) H 05/02/24 10:45 Ur Leukocyte Esterase 4+ (Negative) H 05/02/24 10:45 Urine RBC 50-100 /HPF (0-4) H 05/02/24 10:45 Urine WBC Innumerable /HPF (0-4) H 05/02/24 10:45 Urine WBC Clumps Occasional /LPF (None Seen) H 05/02/24 10:45 Ur Squamous Epith Cells 1-2 /HPF (0-2) 05/02/24 10:45 Ur Transition Epith Cell 1-2 /HPF (0-1) H 05/02/24 10:45 Urine Bacteria 1+ /HPF (None Seen) H 05/02/24 10:45 Hyaline Casts None /LPF (0-8) 05/02/24 10:45 Urine Mucus 1+ /LPF A 05/02/24 10:45 Vancomycin Peak 45.4 ug/mL (20.0-40.0) H 05/18/24 05:47 Vancomycin Trough 22.7 ug/mL (10.0-20.0) H 05/18/24 14:35 Urine Opiates Screen Negative (Negative) 05/02/24 10:45 Ur Barbiturates Screen Negative (Negative) 05/02/24 10:45 Valproic Acid 32.3 ug/mL (50.0-100.0) L 05/13/24 03:48 Ur Phencyclidine Scrn Negative (Negative) 05/02/24 10:45 Ur Amphetamines Screen Positive (Negative) H 05/02/24 10:45 U Benzodiazepines Scrn Negative (Negative) 05/02/24 10:45 Urine Cocaine Screen Negative (Negative) 05/02/24 10:45 U Marijuana (THC) Screen Negative (Negative) 05/02/24 10:45 Ethyl Alcohol < 10 mg/dL 05/02/24 10:15 % Ethyl Alcohol TNP 05/02/24 10:15 COVID-19 Clin Com Not detected (Not Detecte) 05/17/24 15:20 Microbiology Microbiology: 05/16/24 17:15 MRSA Culture - Final Nasal 05/17/24 15:20 Respiratory Panel (PCR) - Final Nasopharyngeal 05/14/24 06:40 Aerobic Culture - Final Sputum - Expectorated May albicans Gram Stain - Final Assessment/Plan (1) Acute and chronic respiratory failure: Code(s): J96.20 - Acute and chronic respiratory failure, unspecified whether with hypoxia or hypercapnia (2) Bacteremia due to group B Streptococcus: Code(s): R78.81 - Bacteremia; B95.1 - Streptococcus, group B, as the cause of diseases classified elsewhere (3) Atrial fibrillation with rapid ventricular response: Code(s): I48.91 - Unspecified atrial fibrillation (4) Sepsis: Code(s): A41.9 - Sepsis, unspecified organism (5) Counseling regarding advance directives and goals of care: Code(s): Z71.89 - Other specified counseling Plan Patient seen and evaluated. He denies laying in his hospital bed with his at bedside. Patient is able to answer questions appropriately, but is confused on his medical situation. He brings up his cancer treatment like it recently happened, but his says that he did have lymphoma about 17 years ago and has been in remission since. Juan is able to tell me he is from [facility] and went to [employer], graduating in 1975. He has 1 stepchild?[facility]. He works several different jobs in the past, including a [employer]. He has been on medical disability since his mid 50s because of a back injury he sustained. Spiritual things are important to him, he belongs to [facility] in [place]. 30 minutes spent discussing goals of care and advance care planning. We reviewed Juan current condition and answered questions. Juan did have limited insight to his condition but was able to participate some in the goals of care discussions. Unfortunately, Juan continues with severe hypoxemic respiratory failure with diffuse bilateral infiltrates despite steroids and antibiotics. Plans are being made to transfer to LTAC for continued care of his severe respiratory failure. Juan and his , Miranda, do want to proceed with LTAC transfer when available. They said they prefer [facility] as #1 choice. We also discussed resuscitation preferences. After much discussion, Juan was able to indicate that he prefers no intubation and he would not want CPR if his heart were to stop. Therefore patient and his requested CODE STATUS change to DNR CCA without intubation. His agreed with his choices of not going into ventilator machine in the future and not having CPR if his heart were to stop. Thank you for the consult. CODE STATUS was adjusted to DNR CCA without intubation per and patient request. Plans are for possible transfer to LTAC when this can be arranged. Miranda did ask me to call their daughter, Hortencia, who is a hospice nurse, but I was unable to get a hold of her. Will follow-up tomorrow. Please call if questions. Documented By: Victor M Chaudhry DO 05/18/24 1 557 Signed By: 05/18/[address] [facility]01-08-2025 Progress note Author Jimmy aMtias [facility] Note Date/Time May 18, 2024 12 :11pm [facility] [address] [place] [address] Pulmonology Progress Note Signed Patient: Juan Simon MR#: [id number] : 1955 Acct:[id number] Age/Sex: 68 / M Adm Date: 4 Loc: Room: [address] [place] [address] Type: ADM IN Attending Dr: Shira Nath MD Copies to: ~ Date of Service: 05/18/2024 Subjective Subjective Narrative: Patient is awake, alert, and appropriately conversant. He continues with high oxygen requirements but does not necessarily endorse significant dyspnea. Exam Physical Exam Vital Signs: Temp Pulse Resp BP Pulse Ox O2 Del Method O2 Flow Rate 98 F 63 28 H 118/62 96 High Flow 40 05/18/24 11:45 05/18/24 11:45 05/18/24 11:45 05/18/24 11:45 05/18/24 11:45 05/18/24 11:45 05/18/24 11:45 FiO2 100 05/18/24 11:45 Const General: cooperative Nutritional Appearance: obese Orientation: alert and awake HEENT Head: normal to inspection Ears: hearing grossly normal bilaterally and external ears normal Nose: external nose normal Face and sinus: normal facial exam Eyes Sclera: sclerae normal Neck Neck: normal visual inspection Resp Effort & Inspection: normal respiratory effort Auscultation: clear to auscultation bilaterally, diminished lung sounds, no rales, no rhonchi and no wheezes Cardio Rate: regular rate Rhythm: regular rhythm Heart Sounds: S1 normal, S2 normal and no murmurs GI Inspection: normal to inspection Palpation: soft and nontender Auscultation: normal bowel sounds Rectal Exam: deferred General: deferred Skin General: no rashes or lesions noted (Warm and dry) Extrem General: no pedal edema Objective Intake and Output I&O - Last 24 Hours: Intake & Output 05/17/24 05/18/24 05/18/24 23:59 07:59 15:59 Intake Total 1050 / 2325 220 / 220 Output Total 750 / 1375 600 / 600 Balance 300 / 950 -380 / -380 Weight 97.2 kg Labs 05/18/24 05:47 05/18/24 05:47 Microbiology Micro: Microbiology 3 05/16/24 17:15 MRSA Culture - Preliminary Nasal 05/17/24 15:20 Respiratory Panel (PCR) - Final Nasopharyngeal Imaging and Cardiology Chest x-ray: Status: image reviewed by me Additional comments: Radiologist interpretation is not available for review. To my review diffuse bilateral infiltrates with [place] dense consolidation in the left upper lobe was again appreciated. Assessment/Plan Assessment/Plan (1) Acute and chronic respiratory failure: (2) Sepsis: (3) Atrial fibrillation with rapid ventricular response: (4) Urinary tract infection: (5) Bacteremia due to Streptococcus: Plan Hospital day #15 for patient originally admitted with group B streptococcus bacteremia presumably from urinary tract with acute on chronic hypoxemic respiratory failure with diffuse bilateral infiltrates and episodes of hemoptysis despite Solu-Medrol 40 mg IV every 6 hours as well as Zosyn. * MRSA culture negative x 1 day; consider discontinuation vancomycin if MRSA nasal culture negative * Continue antibiotics and steroid for any infectious etiology as well as inflammatory etiology * Patient is too tenuous from a respiratory perspective to proceed with bronchoscopy; if patient does develop respiratory failure then would proceed with bronchoscopy * Patient remains a full code Documented By: Jimmy Matias MD 5 [id number] Signed By: <Electronically signed by MD Jimmy Matias> 05/18/24 1211 [facility] Work Phone: 1(383) 568-755001-08-2025 Progress note Author Shira Nath [facility] Note Date/Time May 18, 2024 11 :06am [facility] [address] [place] [address] Hospitalist Progress Note Signed Patient: Juan Simon MR#: [id number] : 1955 Acct:[id number] Age/Sex: 68 / M Adm Date: 4 Loc: Room: [address] [place] [address] Type: ADM IN Attending Dr: Shira Nath MD Copies to: ~ Date of Service: 05/18/2024 Subjective Subjective Narrative: Patient was evaluated at bedside, Reported that he had a rough night. Less cough and sputum production. Today he is again on Fio2 100, 40 L on vapotherm. BiPAP overnight. Remained afebrile, WBC up to 22.5. remained on broad spectrum AB. Overall patient is calm and cooperative however he is still confused, stateshis name, place said hospital, does not know the city/town, not oriented to year, knows month. Pulmonary following. Exam Physical Exam Vital Signs: Temp Pulse Resp BP Pulse Ox O2 Del Method O2 Flow Rate 98.2 F 93 28 H 118/63 90 L High Flow 40 05/17/24 21:05 05/18/24 09:00 05/18/24 09:00 05/18/24 08:00 05/18/24 09:00 05/18/24 08:41 05/18/24 09:00 FiO2 100 05/18/24 09:00 Narrative: Const General: cooperative, on high flow nasal cannula HEENT Normal oropharyngeal mucosa without any ulcers or exudates Eyes: Conjunctiva normal Pulmonary Auscultation: diminished breath sounds, no crackles, no wheezes Cardiovascular Rate: normal rate Rhythm: regular rhythm Heart Sounds: S1 normal, S2 normal and no murmurs GI Inspection: non-distended Palpation: soft, not firm and nontender. No rigidity or rebound. Deferred Neuro General: alert, awake and oriented to self, states his name, knows place, not oriented to time. does not know [place] president. No obvious new focal deficit Musculoskeletal: normal range of motion Extrem General: no cyanosis, trace pedal edema Psych Appearance: Calm, cooperative. Objective Lab Results 05/18/24 05:47 05/18/24 05:47 Microbiology Results Microbiology 05/17/24 15:20 Nasopharyngeal Respiratory Panel (PCR) - Final 05/16/24 17:15 Nasal MRSA Culture - Preliminary No MRSA Isolated 1 Day Meds Allergies and Active Meds Allergies gluten Allergy (Unknown, Verified 05/02/24 09:54) Unknown Reaction Active Meds: Active Medications Generic Name Dose Route Start Last Admin Trade Name Freq PRN Reason Stop Dose Admin Acetaminophen 650 mg 05/02/24 17:28 05/09/24 22:00 Acetaminophen 325 Mg Tablet PO 05/02/25 17:27 650 mg Q6H PRN Administration Pain 1-5 or fever Albuterol 2.5 mg 05/08/24 13:37 Albuterol Neb 2.5 Mg/3 Ml Vial.Neb INHALATION 05/02/25 17:26 Q3H PRN shortness of breath or wheezin Albuterol/Ipratropium 3 ml 05/10/24 14:00 05/18/24 08:41 Ipratropium/Albuterol 0.5-3 Mg 3 Ml Ampul.Neb INHALATION 05/10/25 13:59 3 ml TID EDIE Administration Aspirin 81 mg 05/06/24 09:00 05/18/24 08:51 Aspirin 81 Mg Tablet. PO 05/06/25 08:59 81 mg DAILY EDIE Administration Budesonide/Formoterol Fumarate 2 puff 05/02/24 21:00 05/18/24 08:40 Budesonide/Formoterol 160-4.5 Mcg 60 Puff/6 Gm Hfa.Aer.Ad INHALATION 05/02/25 20:59 2 puff BID EDIE Administration Dextrose 0 gm 05/11/24 08:45 Dextrose 50% In Water 25 Gm/50 Ml Syringe IV-PUSH 05/11/25 08:44 PRN PRN Hypoglycemia Diltiazem HCl 180 mg 05/12/24 09:30 05/18/24 08:52 Diltiazem Cd.24hr 180 Mg Cap.Er.24h PO 05/12/25 09:29 180 mg DAILY EDIE Administration Divalproex Sodium 250 mg 05/11/24 09:00 05/18/24 08:52 Divalproex Sodium 250 Mg Tablet. PO 05/11/25 08:59 250 mg BID EDIE Administration Doxycycline Hyclate 100 mg 05/12/24 21:00 05/18/24 08:51 Doxycycline Hyclate 100 Mg Tablet PO 100 mg BID EDIE Administration Duloxetine HCl 60 mg 05/13/24 09:00 05/18/24 08:52 Duloxetine 60 Mg Capsule. PO 05/13/25 08:59 60 mg DAILY EDIE Administration Enoxaparin Sodium 40 mg 05/09/24 13:04 05/18/24 09:15 Enoxaparin 40 Mg/0.4 Ml Syringe SUBCUT 05/09/25 13:03 Not Given DAILY@1000 EDIE Glucose 0 gm 05/11/24 08:45 Dextrose 40% Gel 15 Gm Tube PO 05/11/25 08:44 PRN PRN Hypoglycemia Guaifenesin 10 ml 05/13/24 20:42 05/13/24 21:03 Guaifenesin Syrup 10 Ml Udc PO 05/13/25 20:41 10 ml Q4H PRN Administration Cough Piperacillin Sod/Tazobactam Sod 4.5 gm in 100 mls @ 25 mls/hr 05/15/24 22:00 05/18/24 06:33 Zosyn IV 25 mls/hr Q8H EDIE Administration Vancomycin HCl 1.25 gm/ 275 mls @ 183.333 mls/hr 05/17/24 03:00 05/18/24 03:26 Dextrose IV 05/17/25 02:59 183.33 mls/hr Q12H EDIE Administration Insulin Aspart 0 units 05/11/24 12:00 05/18/24 07:36 Insulin Aspart 300 Units/3 Ml SUBCUT 05/11/25 11:59 Not Given TID.WM.[facility] Protocol Insulin Human NPH 12 units 05/15/24 11:00 05/18/24 08:52 Insulin Nph Human Isophane 300 Units/3 Ml Insuln.Pen SUBCUT 05/15/25 10:59 12 units BID EDIE Administration Magnesium Oxide 400 mg 05/11/24 09:00 05/18/24 08:51 Magnesium Oxide 400 Mg Tablet PO 05/11/25 08:59 400 mg TID EDIE Administration Methylprednisolone Sodium Succinate 40 mg 05/12/24 14:00 05/18/24 08:51 Methylprednisolone Sod Succ/Pf 40 Mg/Ml (1ml) Vial IV-PUSH 05/12/25 13:59 40 mg Q6H EDIE Administration Metoprolol Succinate 37.5 mg 05/15/24 06:00 05/18/24 08:52 Metoprolol Succinate 50 Mg Tab.Er.24h PO 05/15/25 05:59 37.5 mg BID EDIE Administration Montelukast Sodium 10 mg 05/02/24 22:00 05/17/24 21:11 Montelukast 10 Mg Tablet PO 05/02/25 21:59 10 mg HS EDIE Administration Morphine Sulfate 1 mg 05/08/24 13:37 05/11/24 08:19 Morphine Sulfate 2 Mg/Ml Vial IV-PUSH 1 mg Q4H PRN Administration Pain Scale 7 - 10 Nystatin 400,000 unit 05/13/24 09:00 05/18/24 08:51 Nystatin Susp 500,000 Unit/5 Ml Udc PO 05/13/25 08:59 400,000 unit QID EDIE Administration Quetiapine Fumarate 25 mg 05/11/24 22:00 05/17/24 21:11 Quetiapine Fumarate 25 Mg Tablet PO 05/11/25 21:59 25 mg QHS EDIE Administration Sodium Chloride 0 ml 05/02/24 09:53 05/18/24 06:34 Sodium Chloride 0.9 % 10 Ml Syringe IV-PUSH 05/02/25 09:52 10 ml PRN PRN Administration Flush Vancomycin HCl 1 each 05/16/24 13:10 Vancomycin - Pharmacy Dosing 1 Each Miscell IV ONCE PRN ZZ.Pharmacy Consult Protocol A&P - Hospitalist Assessment/Plan (1) Atrial fibrillation with rapid ventricular response: (2) Bacteremia due to group B Streptococcus: (3) Sepsis: (4) Urinary tract infection: (5) Acute hypoxic respiratory failure: (6) Pneumonia: Plan A-fib with RVR Continue Cardizem and beta-david orally. Patient is off Cardizem drip. Cardiology team does not recommend full dose anticoagulation. EF is normal Acute metabolic encephalopathy, possible seizure MRI could not be done here at [facility]. Neurology team recommended repeat CAT scan which does not show any evolution. Neurology team does not recommend any additional workup and investigation believing that his altered mental status is secondary to metabolic encephalopathy. Valproic acid level is 32.2. Neurology was consulted. Input appreciated. Sepsis, bacteremia UTI, pneumonia, hypoxic respiratory failure Repeat blood cultures are negative. UA is positive for strep and Enterococcus Patient is on high flow oxygen. Trying to wean him down. Patient is on Vanco and Zosyn and doxycycline as well as Solu-Medrol. vanco dosing per pharmacy. Patient was seen by speech who did not recommend any modification of his diet due to not exhibiting any signs and symptoms of aspiration as per speech. Defer further needed diagnostic and therapeutic intervention for his respiratoryand medical management while in ICU to the pulmonary team. Hypomagnesemia Replete as needed DVT prophylaxis Continue Lovenox and aspirin. No full dose anticoagulation by cardiology. Hyperglycemia, poor control. Continue sliding scale. Continue NPH 12 units twice a day with holding parameters. Multiple other subacute, chronic medical conditions that could be addressed electively. Patient still with high oxygen requirement, not ready yet for discharge at this time. Pulmonary following. Input appreciated. Documented By: Shira Nath MD 05/18/24 10 54 Signed By: <Electronically signed by Shira Nath MD> 05/18/24 6408 [facility] Work Phone: 1(296) 815-628601-08-[address] [address] Pulmonology Progress Note Signed Patient: Juan Simon MR#: [id number] : 1955 Acct:[id number] Age/Sex: 68 / M Adm Date: 4 Loc: 4P Room: [address] [place] [address] Type: ADM IN Attending Dr: Shira Nath MD Copies to: ~ Date of Service: 05/18/2024 Subjective Subjective Narrative: Patient is awake, alert, and appropriately conversant. He continues with high oxygen requirements but does not necessarily endorse significant dyspnea. Exam Physical Exam Vital Signs: Temp Pulse Resp BP Pulse Ox O2 Del Method O2 Flow Rate 98 F 63 28 H 118/62 96 High Flow 40 05/18/24 11:45 05/18/24 11:45 05/18/24 11:45 05/18/24 11:45 05/18/24 11:45 05/18/24 11:45 05/18/24 11:45 FiO2 100 05/18/24 11:45 Const General: cooperative Nutritional Appearance: obese Orientation: alert and awake HEENT Head: normal to inspection Ears: hearing grossly normal bilaterally and external ears normal Nose: external nose normal Face and sinus: normal facial exam Eyes Sclera: sclerae normal Neck Neck: normal visual inspection Resp Effort & Inspection: normal respiratory effort Auscultation: clear to auscultation bilaterally, diminished lung sounds, no rales, no rhonchi and no wheezes Cardio Rate: regular rate Rhythm: regular rhythm Heart Sounds: S1 normal, S2 normal and no murmurs GI Inspection: normal to inspection Palpation: soft and nontender Auscultation: normal bowel sounds Rectal Exam: deferred General: deferred Skin General: no rashes or lesions noted (Warm and dry) Extrem General: no pedal edema Objective Intake and Output I&O - Last 24 Hours: Intake & Output 05/17/24 05/18/24 05/18/24 23:59 07:59 15:59 Intake Total 1050 / 2325 220 / 220 Output Total 750 / 1375 600 / 600 Balance 300 / 950 -380 / -380 Weight 97.2 kg Labs 05/18/24 05:47 05/18/24 05:47 Microbiology Micro: Microbiology 3 05/16/24 17:15 MRSA Culture - Preliminary Nasal 05/17/24 15:20 Respiratory Panel (PCR) - Final Nasopharyngeal Imaging and Cardiology Chest x-ray: Status: image reviewed by me Additional comments: Radiologist interpretation is not available for review. To my review diffuse bilateral infiltrates with M[place] dense consolidation in the left upper lobe was again appreciated. Assessment/Plan Assessment/Plan (1) Acute and chronic respiratory failure: (2) Sepsis: (3) Atrial fibrillation with rapid ventricular response: (4) Urinary tract infection: (5) Bacteremia due to Streptococcus: Plan Hospital day #15 for patient originally admitted with group B streptococcus bacteremia presumably from urinary tract with acute on chronic hypoxemic respiratory failure with diffuse bilateral infiltrates and episodes of hemoptysis despite Solu-Medrol 40 mg IV every 6 hours as well as Zosyn. * MRSA culture negative x 1 day; consider discontinuation vancomycin if MRSA nasal culture negative * Continue antibiotics and steroid for any infectious etiology as well as inflammatory etiology * Patient is too tenuous from a respiratory perspective to proceed with bronchoscopy; if patient does develop respiratory failure then would proceed with bronchoscopy * Patient remains a full code Documented By: Jimmy Matias MD 5 [id number] Signed By: 05/18/[address] [facility]01-08-20[place] [address] Hospitalist Progress Note Signed Patient: Juan Simon MR#: [id number] : 1955 Acct:[id number] Age/Sex: 68 / M Adm Date: 4 Loc: Room: [address] [place] [address] Type: ADM IN Attending Dr: Shira Nath MD Copies to: ~ Date of Service: 05/18/2024 Subjective Subjective Narrative: Patient was evaluated at bedside, Reported that he had a rough night. Less cough and sputum production. Today he is again on Fio2 100, 40 L on vapotherm. BiPAP overnight. Remained afebrile, WBC up to22.5. remained on broad spectrum AB. Overall patient is calm and cooperative however he is still confused, stateshis name, place said hospital, does not know the city/town, not oriented to year, knows month. Pulmonary following. Exam Physical Exam Vital Signs: Temp Pulse Resp BP Pulse Ox O2 Del Method O2 Flow Rate 98.2 F 93 28 H 118/63 90 L High Flow 40 05/17/24 21:05 05/18/24 09:00 05/18/24 09:00 05/18/24 08:00 05/18/24 09:00 05/18/24 08:41 05/18/24 09:00 FiO2 100 05/18/24 09:00 Narrative: Const General: cooperative, on high flow nasal cannula HEENT Normal oropharyngeal mucosa without any ulcers or exudates Eyes: Conjunctiva normal Pulmonary Auscultation: diminished breath sounds, no crackles, no wheezes Cardiovascular Rate: normal rate Rhythm: regular rhythm Heart Sounds: S1 normal, S2 normal and no murmurs GI Inspection: non-distended Palpation: soft, not firm and nontender. No rigidity or rebound. Deferred Neuro General: alert, awake and oriented to self, states his name, knows place, not oriented to time. does not know [place] president. No obvious new focal deficit Musculoskeletal: normal range of motion Extrem General: no cyanosis, trace pedal edema Psych Appearance: Calm, cooperative. Objective Lab Results 05/18/24 05:47 05/18/24 05:47 Microbiology Results Microbiology 05/17/24 15:20 Nasopharyngeal Respiratory Panel (PCR) - Final 05/16/24 17:15 Nasal MRSA Culture - Preliminary No MRSA Isolated 1 Day Meds Allergies and Active Meds Allergies gluten Allergy (Unknown, Verified 05/02/24 09:54) Unknown Reaction Active Meds: Active Medications Generic Name Dose Route Start Last Admin Trade Name Freq PRN Reason Stop Dose Admin Acetaminophen 650 mg 05/02/24 17:28 05/09/24 22:00 Acetaminophen 325 Mg Tablet PO 05/02/25 17:27 650 mg Q6H PRN Administration Pain 1-5 or fever Albuterol 2.5 mg 05/08/24 13:37 Albuterol Neb 2.5 Mg/3 Ml Vial.Neb INHALATION 05/02/25 17:26 Q3H PRN shortness of breath or wheezin Albuterol/Ipratropium 3 ml 05/10/24 14:00 05/18/24 08:41 Ipratropium/Albuterol 0.5-3 Mg 3 Ml Ampul.Neb INHALATION 05/10/25 13:59 3 ml TID EDIE Administration Aspirin 81 mg 05/06/24 09:00 05/18/24 08:51 Aspirin 81 Mg Tablet.Dr PO 05/06/25 08:59 81 mg DAILY EDIE Administration Budesonide/Formoterol Fumarate 2 puff 05/02/24 21:00 05/18/24 08:40 Budesonide/Formoterol 160-4.5 Mcg 60 Puff/6 Gm Hfa.Aer.Ad INHALATION 05/02/25 20:59 2 puff BID EDIE Administration Dextrose 0 gm 05/11/24 08:45 Dextrose 50% In Water 25 Gm/50 Ml Syringe IV-PUSH 05/11/25 08:44 PRN PRN Hypoglycemia Diltiazem HCl 180 mg 05/12/24 09:30 05/18/24 08:52 Diltiazem Cd.24hr 180 Mg Cap.Er.24h PO 05/12/25 09:29 180 mg DAILY EDIE Administration Divalproex Sodium 250 mg 05/11/24 09:00 05/18/24 08:52 Divalproex Sodium 250 Mg Tablet. PO 05/11/25 08:59 250 mg BID EDIE Administration Doxycycline Hyclate 100 mg 05/12/24 21:00 05/18/24 08:51 Doxycycline Hyclate 100 Mg Tablet PO 100 mg BID EDIE Administration Duloxetine HCl 60 mg 05/13/24 09:00 05/18/24 08:52 Duloxetine 60 Mg Capsule. PO 05/13/25 08:59 60 mg DAILY EDIE Administration Enoxaparin Sodium 40 mg 05/09/24 13:04 05/18/24 09:15 Enoxaparin 40 Mg/0.4 Ml Syringe SUBCUT 05/09/25 13:03 Not Given DAILY@1000 EDIE Glucose 0 gm 05/11/24 08:45 Dextrose 40% Gel 15 Gm Tube PO 05/11/25 08:44 PRN PRN Hypoglycemia Guaifenesin 10 ml 05/13/24 20:42 05/13/24 21:03 Guaifenesin Syrup 10 Ml Udc PO 05/13/25 20:41 10 ml Q4H PRN Administration Cough Piperacillin Sod/Tazobactam Sod 4.5 gm in 100 mls @ 25 mls/hr 05/15/24 22:00 05/18/24 06:33 Zosyn IV 25 mls/hr Q8H EDIE Administration Vancomycin HCl 1.25 gm/ 275 mls @ 183.333 mls/hr 05/17/24 03:00 05/18/24 03:26 Dextrose IV 05/17/25 02:59 183.33 mls/hr Q12H EDIE Administration Insulin Aspart 0 units 05/11/24 12:00 05/18/24 07:36 Insulin Aspart 300 Units/3 Ml SUBCUT 05/11/25 11:59 Not Given TID.WM.[facility] Protocol Insulin Human NPH 12 units 05/15/24 11:00 05/18/24 08:52 Insulin Nph Human Isophane 300 Units/3 Ml Insuln.Pen SUBCUT 05/15/25 10:59 12 units BID EDIE Administration Magnesium Oxide 400 mg 05/11/24 09:00 05/18/24 08:51 Magnesium Oxide 400 Mg Tablet PO 05/11/25 08:59 400 mg TID EDIE Administration Methylprednisolone Sodium Succinate 40 mg 05/12/24 14:00 05/18/24 08:51 Methylprednisolone Sod Succ/Pf 40 Mg/Ml (1ml) Vial IV-PUSH 05/12/25 13:59 40 mg Q6H EDIE Administration Metoprolol Succinate 37.5 mg 05/15/24 06:00 05/18/24 08:52 Metoprolol Succinate 50 Mg Tab.Er.24h PO 05/15/25 05:59 37.5 mg BID EDIE Administration Montelukast Sodium 10 mg 05/02/24 22:00 05/17/24 21:11 Montelukast 10 Mg Tablet PO 05/02/25 21:59 10 mg HS [facility] Administration Morphine Sulfate 1 mg 05/08/24 13:37 05/11/24 08:19 Morphine Sulfate 2 Mg/Ml Vial IV-PUSH 1 mg Q4H PRN Administration Pain Scale 7 - 10 Nystatin 400,000 unit 05/13/24 09:00 05/18/24 08:51 Nystatin Susp 500,000 Unit/5 Ml Udc PO 05/13/25 08:59 400,000 unit QID EDIE Administration Quetiapine Fumarate 25 mg 05/11/24 22:00 05/17/24 21:11 Quetiapine Fumarate 25 Mg Tablet PO 05/11/25 21:59 25 mg QHS EDIE Administration Sodium Chloride 0 ml 05/02/24 09:53 05/18/24 06:34 Sodium Chloride 0.9 % 10 Ml Syringe IV-PUSH 05/02/25 09:52 10 ml PRN PRN Administration Flush Vancomycin HCl 1 each 05/16/24 13:10 Vancomycin - Pharmacy Dosing 1 Each Miscell IV ONCE PRN ZZ.Pharmacy Consult Protocol A&P - Hospitalist Assessment/Plan (1) Atrial fibrillation with rapid ventricular response: (2) Bacteremia due to group B Streptococcus: (3) Sepsis: (4) Urinary tract infection: (5) Acute hypoxic respiratory failure: (6) Pneumonia: Plan A-fib with RVR Continue Cardizem and beta-david orally. Patient is off Cardizem drip. Cardiology team does not recommend full dose anticoagulation. EF is normal Acute metabolic encephalopathy, possible seizure MRI could not be done here at [facility]. Neurology team recommended repeat CAT scan which does not show any evolution. Neurology team does not recommend any additional workup and investigation believing that his altered mental status is secondary to metabolic encephalopathy. Valproic acid level is 32.2. Neurology was consulted. Input appreciated. Sepsis, bacteremia UTI, pneumonia, hypoxic respiratory failure Repeat blood cultures are negative. UA is positive for strep and Enterococcus Patient is on high flow oxygen. Trying to wean him down. Patient is on Vanco and Zosyn and doxycycline as well as Solu-Medrol. vanco dosing per pharmacy. Patient was seen by speech who did not recommend any modification of his diet due to not exhibitingany signs and symptoms of aspiration as per speech. Defer further needed diagnostic and therapeutic intervention for his respiratoryand medical management while in ICU to the pulmonary team. Hypomagnesemia Replete as needed DVT prophylaxis Continue Lovenox and aspirin. No full dose anticoagulation by cardiology. Hyperglycemia, poor control. Continue sliding scale. Continue NPH 12 units twice a day with holding parameters. Multiple other subacute, chronic medical conditions that could be addressed electively. Patient still with high oxygen requirement, not ready yet for discharge at this time. Pulmonary following. Input appreciated. Documented By: Shira Nath MD 05/18/24 10 54 Signed By: 05/18/[address] [facility]01-07-2025 Progress note Author Shira Nath [facility] Note Date/Time May 17, 2024 1: 51pm [facility] [address] [place] [address] Hospitalist Progress Note Signed Patient: Juan Simno MR#: [id number] : 1955 Acct:[id number] Age/Sex: 68 / M Adm Date: 4 Loc: Room: [address] [place] [address] Type: ADM IN Attending Dr: Shira Nath MD Copies to: ~ Date of Service: 05/17/2024 Subjective Subjective Narrative: Patient was evaluated at bedside, Reported that he feels better. Less cough andsputum production. Today he is again on Fio2 100, 40 L on vapotherm. BiPAP overnight. Remained afebrile, WBC around 16.6. remained on AB. Overall patient is calm and cooperative however he is confused, states his name, place said hospital, not oriented to time. Pulmonary following. Exam Physical Exam Vital Signs: Temp Pulse Resp BP Pulse Ox O2 Del Method O2 Flow Rate 97.8 F 86 20 125/73 96 High Flow 40 05/17/24 12:00 05/17/24 12:00 05/17/24 12:00 05/17/24 12:00 05/17/24 12:00 05/17/24 12:00 05/17/24 12:00 FiO2 100 05/17/24 12:00 Narrative: Const General: cooperative, on high flow nasal cannula HEENT Normal oropharyngeal mucosa without any ulcers or exudates Eyes: Conjunctiva normal Pulmonary Auscultation: diminished breath sounds, no crackles, no wheezes Cardiovascular Rate: normal rate Rhythm: regular rhythm Heart Sounds: S1 normal, S2 normal and no murmurs GI Inspection: non-distended Palpation: soft, not firm and nontender. No rigidity or rebound. Deferred Neuro General: alert, awake and oriented to self, states his name, knows place, not oriented to time. does not know [place] president. No obvious new focal deficit Musculoskeletal: normal range of motion Extrem General: no cyanosis, trace pedal edema Psych Appearance: Calm, cooperative. Objective Lab Results 05/16/24 08:56 05/16/24 08:56 Microbiology Results Microbiology 05/16/24 17:15 Nasal MRSA Culture - Preliminary No MRSA Isolated 1 Day 05/14/24 06:40 Sputum - Expectorated Aerobic Culture - Final May albicans 05/14/24 06:40 Sputum - Expectorated Gram Stain - Final Meds Allergies and Active Meds Allergies gluten Allergy (Unknown, Verified 05/02/24 09:54) Unknown Reaction Active Meds: Active Medications Generic Name Dose Route Start Last Admin Trade Name Freq PRN Reason Stop Dose Admin Acetaminophen 650 mg 05/02/24 17:28 05/09/24 22:00 Acetaminophen 325 Mg Tablet PO 05/02/25 17:27 650 mg Q6H PRN Administration Pain 1-5 or fever Albuterol 2.5 mg 05/08/24 13:37 Albuterol Neb 2.5 Mg/3 Ml Vial.Neb INHALATION 05/02/25 17:26 Q3H PRN shortness of breath or wheezin Albuterol/Ipratropium 3 ml 05/10/24 14:00 05/17/24 09:27 Ipratropium/Albuterol 0.5-3 Mg 3 Ml Ampul.Neb INHALATION 05/10/25 13:59 3 ml TID EDIE Administration Aspirin 81 mg 05/06/24 09:00 05/17/24 09:15 Aspirin 81 Mg Tablet. PO 05/06/25 08:59 81 mg DAILY EDIE Administration Budesonide/Formoterol Fumarate 2 puff 05/02/24 21:00 05/17/24 09:27 Budesonide/Formoterol 160-4.5 Mcg 60 Puff/6 Gm Hfa.Aer.Ad INHALATION 05/02/25 20:59 2 puff BID EDIE Administration Dextrose 0 gm 05/11/24 08:45 Dextrose 50% In Water 25 Gm/50 Ml Syringe IV-PUSH 05/11/25 08:44 PRN PRN Hypoglycemia Diltiazem HCl 180 mg 05/12/24 09:30 05/17/24 09:15 Diltiazem Cd.24hr 180 Mg Cap.Er.24h PO 05/12/25 09:29 180 mg DAILY EDIE Administration Divalproex Sodium 250 mg 05/11/24 09:00 05/17/24 09:14 Divalproex Sodium 250 Mg Tablet. PO 05/11/25 08:59 250 mg BID EDIE Administration Doxycycline Hyclate 100 mg 05/12/24 21:00 05/17/24 09:15 Doxycycline Hyclate 100 Mg Tablet PO 100 mg BID EDIE Administration Duloxetine HCl 60 mg 05/13/24 09:00 05/17/24 09:15 Duloxetine 60 Mg Capsule. PO 05/13/25 08:59 60 mg DAILY EDIE Administration Enoxaparin Sodium 40 mg 05/09/24 13:04 05/17/24 09:16 Enoxaparin 40 Mg/0.4 Ml Syringe SUBCUT 05/09/25 13:03 40 mg DAILY@1000 EDIE Administration Glucose 0 gm 05/11/24 08:45 Dextrose 40% Gel 15 Gm Tube PO 05/11/25 08:44 PRN PRN Hypoglycemia Guaifenesin 10 ml 05/13/24 20:42 05/13/24 21:03 Guaifenesin Syrup 10 Ml Udc PO 05/13/25 20:41 10 ml Q4H PRN Administration Cough Piperacillin Sod/Tazobactam Sod 4.5 gm in 100 mls @ 25 mls/hr 05/15/24 22:00 05/17/24 06:24 Zosyn IV 25 mls/hr Q8H EDIE Administration Vancomycin HCl 1.25 gm/ 275 mls @ 183.333 mls/hr 05/17/24 03:00 05/17/24 03:34 Dextrose IV 05/17/25 02:59 183.33 mls/hr Q12H EDIE Administration Insulin Aspart 0 units 05/11/24 12:00 05/17/24 12:12 Insulin Aspart 300 Units/3 Ml SUBCUT 05/11/25 11:59 3 units TID.WM.HS EDIE Administration Protocol Insulin Human NPH 12 units 05/15/24 11:00 05/17/24 09:18 Insulin Nph Human Isophane 300 Units/3 Ml Insuln.Pen SUBCUT 05/15/25 10:59 12 units BID EDIE Administration Magnesium Oxide 400 mg 05/11/24 09:00 05/17/24 13:47 Magnesium Oxide 400 Mg Tablet PO 05/11/25 08:59 400 mg TID EDIE Administration Methylprednisolone Sodium Succinate 40 mg 05/12/24 14:00 05/17/24 13:47 Methylprednisolone Sod Succ/Pf 40 Mg/Ml (1ml) Vial IV-PUSH 05/12/25 13:59 40 mg Q6H EDIE Administration Metoprolol Succinate 37.5 mg 05/15/24 06:00 05/17/24 09:18 Metoprolol Succinate 50 Mg Tab.Er.24h PO 05/15/25 05:59 37.5 mg BID EDIE Administration Montelukast Sodium 10 mg 05/02/24 22:00 05/16/24 23:17 Montelukast 10 Mg Tablet PO 05/02/25 21:59 10 mg HS EDIE Administration Morphine Sulfate 1 mg 05/08/24 13:37 05/11/24 08:19 Morphine Sulfate 2 Mg/Ml Vial IV-PUSH 1 mg Q4H PRN Administration Pain Scale 7 - 10 Nystatin 400,000 unit 05/13/24 09:00 05/17/24 13:47 Nystatin Susp 500,000 Unit/5 Ml Udc PO 05/13/25 08:59 400,000 unit QID EDIE Administration Quetiapine Fumarate 25 mg 05/11/24 22:00 05/16/24 23:17 Quetiapine Fumarate 25 Mg Tablet PO 05/11/25 21:59 25 mg QHS EDIE Administration Sodium Chloride 0 ml 05/02/24 09:53 05/15/24 08:15 Sodium Chloride 0.9 % 10 Ml Syringe IV-PUSH 05/02/25 09:52 10 ml PRN PRN Administration Flush Vancomycin HCl 1 each 05/16/24 13:10 Vancomycin - Pharmacy Dosing 1 Each Miscell IV ONCE PRN ZZ.Pharmacy Consult Protocol A&P - Hospitalist Assessment/Plan (1) Atrial fibrillation with rapid ventricular response: (2) Bacteremia due to group B Streptococcus: (3) Sepsis: (4) Urinary tract infection: (5) Acute hypoxic respiratory failure: (6) Pneumonia: Plan A-fib with RVR Continue Cardizem and beta-david orally. Patient is off Cardizem drip. Cardiology team does not recommend full dose anticoagulation. EF is normal Acute metabolic encephalopathy, possible seizure MRI could not be done here at [facility]. Neurology team recommended repeat CAT scan which does not show any evolution. Neurology team does not recommend any additional workup and investigation believing that his altered mental status is secondary to metabolic encephalopathy. Valproic acid level is 32.2. Neurology was consulted. Input appreciated. Sepsis, bacteremia UTI, pneumonia, hypoxic respiratory failure Repeat blood cultures are negative. UA is positive for strep and Enterococcus Patient is on high flow oxygen. Trying to wean him down. Patient is on Vanco and Zosyn and doxycycline as well as Solu-Medrol. Patient was seen by speech who did not recommend any modification of his diet due to not exhibiting any signs and symptoms of aspiration as per speech. Defer further needed diagnostic and therapeutic intervention for his respiratoryand medical management while in ICU to the pulmonary team. Hypomagnesemia Replete as needed DVT prophylaxis Continue Lovenox and aspirin. No full dose anticoagulation by cardiology. Hyperglycemia, poor control. Continue sliding scale. Continue NPH 12 units twice a day with holding parameters. Multiple other subacute, chronic medical conditions that could be addressed electively. Patient still with high oxygen requirement, not ready yet for discharge at this time. Pulmonary following. Input appreciated. Documented By: Shira Nath MD 05/17/24 13 48 Signed By: <Electronically signed by Shira Nath MD> 05/17/24 1350 [facility] Work Phone: 1(575) 226-830101-07-2025 Progress note Author Jimmy Matias [facility] Note Date/Time May 17, 2024 12 :38pm [facility] [address] [place] [address] Pulmonology Progress Note Signed Patient: Juan Simon MR#: [id number] : 1955 Acct:[id number] Age/Sex: 68 / M Adm Date: 4 Loc: Room: [address] [place] [address] Type: ADM IN Attending Dr: Shira Nath MD Copies to: ~ Date of Service: 05/17/2024 Subjective Subjective Narrative: Patient is clinically stable from a respiratory perspective with no further hemoptysis. Exam Physical Exam Vital Signs: Temp Pulse Resp BP Pulse Ox O2 Del Method O2 Flow Rate 97.8 F 86 20 125/73 96 High Flow 40 05/17/24 12:00 05/17/24 12:05/17/24 12:05/17/24 12:05/17/24 12:05/17/24 12:05/17/24 12:00 FiO2 100 05/17/24 12:00 Const General: cooperative Nutritional Appearance: obese Orientation: alert, awake, not oriented x3, oriented to person, oriented to place and not oriented to time HEENT Head: normal to inspection Ears: hearing grossly normal bilaterally and external ears normal Nose: external nose normal Face and sinus: normal facial exam Eyes Sclera: sclerae normal Neck Neck: normal visual inspection Resp Effort & Inspection: normal respiratory effort Auscultation: clear to auscultation bilaterally, diminished lung sounds, no rales, no rhonchi and no wheezes Cardio Rate: regular rate Rhythm: regular rhythm Heart Sounds: S1 normal, S2 normal and no murmurs GI Inspection: normal to inspection Palpation: soft and nontender Auscultation: normal bowel sounds Rectal Exam: deferred General: deferred Skin General: no rashes or lesions noted (Warm and dry) Extrem General: no pedal edema Objective Intake and Output I&O - Last 24 Hours: Intake & Output 05/16/24 05/17/24 05/17/24 23:59 07:59 15:59 Intake Total 700 / 1550 900 / 900 Output Total 550 / 1100 625 / 625 Balance 150 / 450 275 / 275 Weight 97.5 kg Labs 05/16/24 08:56 05/16/24 08:56 Microbiology Micro: Microbiology 3 05/16/24 17:15 MRSA Culture - Preliminary Nasal No MRSA Isolated 1 Day 05/14/24 06:40 Aerobic Culture - Final Sputum - Expectorated May albicans Gram Stain - Final Assessment/Plan Assessment/Plan (1) Acute and chronic respiratory failure: (2) Sepsis: (3) Atrial fibrillation with rapid ventricular response: (4) Urinary tract infection: (5) Bacteremia due to Streptococcus: Plan Hospital day #14 for patient originally admitted with group B streptococcus bacteremia presumably from urinary tract with acute on chronic hypoxemic respiratory failure with diffuse bilateral infiltrates and episodes of hemoptysis despite Solu-Medrol 40 mg IV every 6 hours as well as Zosyn. * Patient continues to be stable. Will decrease steroids and continue Zosyn as well as Vancomycin * Repeat 2 view CXR tomorrow and consider decreasing steroids * Follow up on MRSA culture Documented By: Jimmy Matias MD 5 1232 Signed By: <Electronically signed by MD Jimmy Matias> 05/17/24 1238 [facility] Work Phone: 1(130) 106-832401-07-2025 [place] [address] Hospitalist Progress Note Signed Patient: Juan Simon MR#: [id number] : 1955 Acct:[id number] Age/Sex: 68 / M Adm Date: 4 Loc: Room: [address] [place] [address] Type: ADM IN Attending Dr: Shira Nath MD Copies to: ~ Date of Service: 05/17/2024 Subjective Subjective Narrative: Patient was evaluated at bedside, Reported that he feels better. Less cough andsputum production. Today he is again on Fio2 100, 40 L on vapotherm. BiPAP overnight. Remained afebrile, WBC around 16.6. remained on AB. Overall patient is calm and cooperative however he is confused, states his name, place said hospital, not oriented to time. Pulmonary following. Exam Physical Exam Vital Signs: Temp Pulse Resp BP Pulse Ox O2 Del Method O2 Flow Rate 97.8 F 86 20 125/73 96 High Flow 40 05/17/24 12:00 05/17/24 12:00 05/17/24 12:00 05/17/24 12:00 05/17/24 12:00 05/17/24 12:00 05/17/24 12:00 FiO2 100 05/17/24 12:00 Narrative: Const General: cooperative, on high flow nasal cannula HEENT Normal oropharyngeal mucosa without any ulcers or exudates Eyes: Conjunctiva normal Pulmonary Auscultation: diminished breath sounds, no crackles, no wheezes Cardiovascular Rate: normal rate Rhythm: regular rhythm Heart Sounds: S1 normal, S2 normal and no murmurs GI Inspection: non-distended Palpation: soft, not firm and nontender. No rigidity or rebound. Deferred Neuro General: alert, awake and oriented to self, states his name, knows place, not oriented to time. does not know [place] president. No obvious new focal deficit Musculoskeletal: normal range of motion Extrem General: no cyanosis, trace pedal edema Psych Appearance: Calm, cooperative. Objective Lab Results 05/16/24 08:56 05/16/24 08:56 Microbiology Results Microbiology 05/16/24 17:15 Nasal MRSA Culture - Preliminary No MRSA Isolated 1 Day 05/14/24 06:40 Sputum - Expectorated Aerobic Culture - Final May albicans 05/14/24 06:40 Sputum - Expectorated Gram Stain - Final Meds Allergies and Active Meds Allergies gluten Allergy (Unknown, Verified 05/02/24 09:54) Unknown Reaction Active Meds: Active Medications Generic Name Dose Route Start Last Admin Trade Name Freq PRN Reason Stop Dose Admin Acetaminophen 650 mg 05/02/24 17:28 05/09/24 22:00 Acetaminophen 325 Mg Tablet PO 05/02/25 17:27 650 mg Q6H PRN Administration Pain 1-5 or fever Albuterol 2.5 mg 05/08/24 13:37 Albuterol Neb 2.5 Mg/3 Ml Vial.Neb INHALATION 05/02/25 17:26 Q3H PRN shortness of breath or wheezin Albuterol/Ipratropium 3 ml 05/10/24 14:00 05/17/24 09:27 Ipratropium/Albuterol 0.5-3 Mg 3 Ml Ampul.Neb INHALATION 05/10/25 13:59 3 ml TID EDIE Administration Aspirin 81 mg 05/06/24 09:00 05/17/24 09:15 Aspirin 81 Mg Tablet. PO 05/06/25 08:59 81 mg DAILY EDIE Administration Budesonide/Formoterol Fumarate 2 puff 05/02/24 21:00 05/17/24 09:27 Budesonide/Formoterol 160-4.5 Mcg 60 Puff/6 Gm Hfa.Aer.Ad INHALATION 05/02/25 20:59 2 puff BID EDIE Administration Dextrose 0 gm 05/11/24 08:45 Dextrose 50% In Water 25 Gm/50 Ml Syringe IV-PUSH 05/11/25 08:44 PRN PRN Hypoglycemia Diltiazem HCl 180 mg 05/12/24 09:30 05/17/24 09:15 Diltiazem Cd.24hr 180 Mg Cap.Er.24h PO 05/12/25 09:29 180 mg DAILY EDIE Administration Divalproex Sodium 250 mg 05/11/24 09:00 05/17/24 09:14 Divalproex Sodium 250 Mg Tablet. PO 05/11/25 08:59 250 mg BID EDIE Administration Doxycycline Hyclate 100 mg 05/12/24 21:00 05/17/24 09:15 Doxycycline Hyclate 100 Mg Tablet PO 100 mg BID EDIE Administration Duloxetine HCl 60 mg 05/13/24 09:00 05/17/24 09:15 Duloxetine 60 Mg Capsule.Dr CHO 05/13/25 08:59 60 mg DAILY EDIE Administration Enoxaparin Sodium 40 mg 05/09/24 13:04 05/17/24 09:16 Enoxaparin 40 Mg/0.4 Ml Syringe SUBCUT 05/09/25 13:03 40 mg DAILY@1000 EDIE Administration Glucose 0 gm 05/11/24 08:45 Dextrose 40% Gel 15 Gm Tube PO 05/11/25 08:44 PRN PRN Hypoglycemia Guaifenesin 10 ml 05/13/24 20:42 05/13/24 21:03 Guaifenesin Syrup 10 Ml Udc PO 05/13/25 20:41 10 ml Q4H PRN Administration Cough Piperacillin Sod/Tazobactam Sod 4.5 gm in 100 mls @ 25 mls/hr 05/15/24 22:00 05/17/24 06:24 Zosyn IV 25 mls/hr Q8H EDIE Administration Vancomycin HCl 1.25 gm/ 275 mls @ 183.333 mls/hr 05/17/24 03:00 05/17/24 03:34 Dextrose IV 05/17/25 02:59 183.33 mls/hr Q12H EDIE Administration Insulin Aspart 0 units 05/11/24 12:00 05/17/24 12:12 Insulin Aspart 300 Units/3 Ml SUBCUT 05/11/25 11:59 3 units TID.WM.HS EDIE Administration Protocol Insulin Human NPH 12 units 05/15/24 11:00 05/17/24 09:18 Insulin Nph Human Isophane 300 Units/3 Ml Insuln.Pen SUBCUT 05/15/25 10:59 12 units BID EDIE Administration Magnesium Oxide 400 mg 05/11/24 09:00 05/17/24 13:47 Magnesium Oxide 400 Mg Tablet PO 05/11/25 08:59 400 mg TID EDIE Administration Methylprednisolone Sodium Succinate 40 mg 05/12/24 14:00 05/17/24 13:47 Methylprednisolone Sod Succ/Pf 40 Mg/Ml (1ml) Vial IV-PUSH 05/12/25 13:59 40 mg Q6H EDIE Administration Metoprolol Succinate 37.5 mg 05/15/24 06:00 05/17/24 09:18 Metoprolol Succinate 50 Mg Tab.Er.24h PO 05/15/25 05:59 37.5 mg BID EDIE Administration Montelukast Sodium 10 mg 05/02/24 22:00 05/16/24 23:17 Montelukast 10 Mg Tablet PO 05/02/25 21:59 10 mg HS EDIE Administration Morphine Sulfate 1 mg 05/08/24 13:37 05/11/24 08:19 Morphine Sulfate 2 Mg/Ml Vial IV-PUSH 1 mg Q4H PRN Administration Pain Scale 7 - 10 Nystatin 400,000 unit 05/13/24 09:00 05/17/24 13:47 Nystatin Susp 500,000 Unit/5 Ml Udc PO 05/13/25 08:59 400,000 unit QID EDIE Administration Quetiapine Fumarate 25 mg 05/11/24 22:00 05/16/24 23:17 Quetiapine Fumarate 25 Mg Tablet PO 05/11/25 21:59 25 mg QHS EDIE Administration Sodium Chloride 0 ml 05/02/24 09:53 05/15/24 08:15 Sodium Chloride 0.9 % 10 Ml Syringe IV-PUSH 05/02/25 09:52 10 ml PRN PRN Administration Flush Vancomycin HCl 1 each 05/16/24 13:10 Vancomycin - Pharmacy Dosing 1 Each Miscell IV ONCE PRN ZZ.Pharmacy Consult Protocol A&P - Hospitalist Assessment/Plan (1) Atrial fibrillation with rapid ventricular response: (2) Bacteremia due to group B Streptococcus: (3) Sepsis: (4) Urinary tract infection: (5) Acute hypoxic respiratory failure: (6) Pneumonia: Plan A-fib with RVR Continue Cardizem and beta-david orally. Patient is off Cardizem drip. Cardiology team does not recommend full dose anticoagulation. EF is normal Acute metabolic encephalopathy, possible seizure MRI could not be done here at [facility]. Neurology team recommended repeat CAT scan which does not show any evolution. Neurology team does not recommend any additional workup and investigation believing that his altered mental status is secondary to metabolic encephalopathy. Valproic acid level is 32.2. Neurology was consulted. Input appreciated. Sepsis, bacteremia UTI, pneumonia, hypoxic respiratory failure Repeat blood cultures are negative. UA is positive for strep and Enterococcus Patient is on high flow oxygen. Trying to wean him down. Patient is on Vanco and Zosyn and doxycycline as well as Solu-Medrol. Patient was seen by speech who did not recommend any modification of his diet due to not exhibitingany signs and symptoms of aspiration as per speech. Defer further needed diagnostic and therapeutic intervention for his respiratoryand medical management while in ICU to the pulmonary team. Hypomagnesemia Replete as needed DVT prophylaxis Continue Lovenox and aspirin. No full dose anticoagulation by cardiology. Hyperglycemia, poor control. Continue sliding scale. Continue NPH 12 units twice a day with holding parameters. Multiple other subacute, chronic medical conditions that could be addressed electively. Patient still with high oxygen requirement, not ready yet for discharge at this time. Pulmonary following. Input appreciated. Documented By: Shira Nath MD 05/17/24 13 48 Signed By: 05/17/[address] [facility]01-07-2025 [place] [address] Pulmonology Progress Note Signed Patient: Juan Simon MR#: [id number] : 1955 Acct:[id number] Age/Sex: 68 / M Adm Date: 4 Loc: Room: [address] [place] [address] Type: ADM IN Attending Dr: Shira Nath MD Copies to: ~ Date of Service: 05/17/2024 Subjective Subjective Narrative: Patient is clinically stable from a respiratory perspective with no further hemoptysis. Exam Physical Exam Vital Signs: Temp Pulse Resp BP Pulse Ox O2 Del Method O2 Flow Rate 97.8 F 86 20 125/73 96 High Flow 40 05/17/24 12:00 05/17/24 12:00 05/17/24 12:05/17/24 12:00 05/17/24 12:00 05/17/24 12:00 05/17/24 12:00 FiO2 100 05/17/24 12:00 Const General: cooperative Nutritional Appearance: obese Orientation: alert, awake, not oriented x3, oriented to person, oriented to place and not oriented to time HEENT Head: normal to inspection Ears: hearing grossly normal bilaterally and external ears normal Nose: external nose normal Face and sinus: normal facial exam Eyes Sclera: sclerae normal Neck Neck: normal visual inspection Resp Effort & Inspection: normal respiratory effort Auscultation: clear to auscultation bilaterally, diminished lung sounds, no rales, no rhonchi and no wheezes Cardio Rate: regular rate Rhythm: regular rhythm Heart Sounds: S1 normal, S2 normal and no murmurs GI Inspection: normal to inspection Palpation: soft and nontender Auscultation: normal bowel sounds Rectal Exam: deferred General: deferred Skin General: no rashes or lesions noted (Warm and dry) Extrem General: no pedal edema Objective Intake and Output I&O - Last 24 Hours: Intake & Output 05/16/24 05/17/24 05/17/24 23:59 07:59 15:59 Intake Total 700 / 1550 900 / 900 Output Total 550 / 1100 625 / 625 Balance 150 / 450 275 / 275 Weight 97.5 kg Labs 05/16/24 08:56 05/16/24 08:56 Microbiology Micro: Microbiology 3 05/16/24 17:15 MRSA Culture - Preliminary Nasal No MRSA Isolated 1 Day 05/14/24 06:40 Aerobic Culture - Final Sputum - Expectorated May albicans Gram Stain - Final Assessment/Plan Assessment/Plan (1) Acute and chronic respiratory failure: (2) Sepsis: (3) Atrial fibrillation with rapid ventricular response: (4) Urinary tract infection: (5) Bacteremia due to Streptococcus: Plan Hospital day #14 for patient originally admitted with group B streptococcus bacteremia presumably from urinary tract with acute on chronic hypoxemic respiratory failure with diffuse bilateral infiltrates and episodes of hemoptysis despite Solu-Medrol 40 mg IV every 6 hours as well as Zosyn. * Patient continues to be stable. Will decrease steroids and continue Zosyn as well as Vancomycin * Repeat 2 view CXR tomorrow and consider decreasing steroids * Follow up on MRSA culture Documented By: Jimmy Matias MD 5 [id number] Signed By: 05/17/24 [facility]8 [facility]01-06-2025 Progress note Author Jimmy Matias [facility] Note Date/Time May 16, 2024 5: 30pm [facility] [address] [place] [address] Pulmonology Progress Note Signed Patient: Juan Simon MR#: [id number] : 1955 Acct:[id number] Age/Sex: 68 / M Adm Date: 4 Loc: 4 Room: 7T6354-7 Type: ADM IN Attending Dr: Shira Nath MD Copies to: ~ Date of Service: 05/16/2024 Subjective Subjective Narrative: Patient is sitting in chair with oxygen saturations of 97% at the time of my visit on 40 L/min and 100% FiO2. Patient denies further hemoptysis and is appropriately conversant. Exam Physical Exam Vital Signs: Temp Pulse Resp BP Pulse Ox O2 Del Method O2 Flow Rate 98.3 F 89 22 153/76 H 92 L BiPAP 40 05/16/24 08:00 05/16/24 12:41 05/16/24 12:41 05/16/24 08:00 05/16/24 08:38 05/16/24 08:00 05/16/24 08:38 FiO2 100 05/16/24 08:38 Const General: cooperative and disheveled Nutritional Appearance: obese Orientation: alert, awake, oriented to person and oriented to place HEENT Head: normal to inspection Ears: hearing grossly normal bilaterally and external ears normal Nose: external nose normal Face and sinus: normal facial exam Eyes Sclera: sclerae normal Neck Neck: normal visual inspection Resp Effort & Inspection: normal respiratory effort Auscultation: clear to auscultation bilaterally, diminished lung sounds, no rales, no rhonchi and no wheezes Cardio Rate: regular rate Rhythm: regular rhythm Heart Sounds: S1 normal, S2 normal and no murmurs GI Inspection: normal to inspection Palpation: soft and nontender General: deferred Skin General: no rashes or lesions noted (Warm and dry) Extrem General: no pedal edema Objective Intake and Output I&O - Last 24 Hours: Intake & Output 05/15/24 05/16/24 05/16/24 23:59 07:59 15:59 Intake Total 650 / 900 750 / 750 Output Total 500 / 850 550 / 550 Balance 150 / 50 200 / 200 Weight 96.3 kg Labs 05/16/24 08:56 05/16/24 08:56 Microbiology Micro: Microbiology 3 05/14/24 06:40 Aerobic Culture - Preliminary Sputum - Expectorated Yeast Like Organism Gram Stain - Final Assessment/Plan Assessment/Plan (1) Acute and chronic respiratory failure: (2) Sepsis: (3) Atrial fibrillation with rapid ventricular response: (4) Urinary tract infection: (5) Bacteremia due to Streptococcus: Plan Hospital day #13 for patient originally admitted with group B streptococcus bacteremia presumably from urinary tract with acute on chronic hypoxemic respiratory failure with diffuse bilateral infiltrates and episodes of hemoptysis despite Solu-Medrol 40 mg IV every 6 hours as well as Zosyn. * Patient previously had been on vancomycin but was discontinued. Will restart vancomycin and send MRSA nasal culture * Will gradually decrease Solu-Medrol provided patient does not have further hemoptysis * Recheck coagulation studies tomorrow * Patient remains a full code and patient is unstable for bronchoscopy but if patient develops respiratory failure requiring intubation would then proceed with bronchoscopy to evaluate for alveolar hemorrhage as well as for cultures * Repeat upper respiratory PCR panel Documented By: Jimmy Matias MD 5 [id number] Signed By: <Electronically signed by MD Jimmy Matias> 05/16/24 1734 [facility] Work Phone: 1(573) 273-221201-06-2025 [place] [address] Pulmonology Progress Note Signed Patient: Juan Simon MR#: [id number] : 1955 Acct:[id number] Age/Sex: 68 / M Adm Date: 4 Loc: Room: [address] [place] [address] Type: ADM IN Attending Dr: Shira Nath MD Copies to: ~ Date of Service: 05/16/2024 Subjective Subjective Narrative: Patient is sitting in chair with oxygen saturations of 97% at the time of my visit on 40 L/min and 100% FiO2. Patient denies further hemoptysis and is appropriately conversant. Exam Physical Exam Vital Signs: Temp Pulse Resp BP Pulse Ox O2 Del Method O2 Flow Rate 98.3 F 89 22 153/76 H 92 L BiPAP 40 05/16/24 08:00 05/16/24 12:41 05/16/24 12:41 05/16/24 08:00 05/16/24 08:38 05/16/24 08:00 05/16/24 08:38 FiO2 100 05/16/24 08:38 Const General: cooperative and disheveled Nutritional Appearance: obese Orientation: alert, awake, oriented to person and oriented to place HEENT Head: normal to inspection Ears: hearing grossly normal bilaterally and external ears normal Nose: external nose normal Face and sinus: normal facial exam Eyes Sclera: sclerae normal Neck Neck: normal visual inspection Resp Effort & Inspection: normal respiratory effort Auscultation: clear to auscultation bilaterally, diminished lung sounds, no rales, no rhonchi and no wheezes Cardio Rate: regular rate Rhythm: regular rhythm Heart Sounds: S1 normal, S2 normal and no murmurs GI Inspection: normal to inspection Palpation: soft and nontender General: deferred Skin General: no rashes or lesions noted (Warm and dry) Extrem General: no pedal edema Objective Intake and Output I&O - Last 24 Hours: Intake & Output 05/15/24 05/16/24 05/16/24 23:59 07:59 15:59 Intake Total 650 / 900 750 / 750 Output Total 500 / 850 550 / 550 Balance 150 / 50 200 / 200 Weight 96.3 kg Labs 05/16/24 08:56 05/16/24 08:56 Microbiology Micro: Microbiology 3 05/14/24 06:40 Aerobic Culture - Preliminary Sputum - Expectorated Yeast Like Organism Gram Stain - Final Assessment/Plan Assessment/Plan (1) Acute and chronic respiratory failure: (2) Sepsis: (3) Atrial fibrillation with rapid ventricular response: (4) Urinary tract infection: (5) Bacteremia due to Streptococcus: Plan Hospital day #13 for patient originally admitted with group B streptococcus bacteremia presumably from urinary tract with acute on chronic hypoxemic respiratory failure with diffuse bilateral infiltrates and episodes of hemoptysis despite Solu-Medrol 40 mg IV every 6 hours as well as Zosyn. * Patient previously had been on vancomycin but was discontinued. Will restart vancomycin and send MRSA nasal culture * Will gradually decrease Solu-Medrol provided patient does not have further hemoptysis * Recheck coagulation studies tomorrow * Patient remains a full code and patient is unstable for bronchoscopy but if patient develops respiratory failure requiring intubation would then proceed with bronchoscopy to evaluate for alveolar hemorrhage as well as for cultures * Repeat upper respiratory PCR panel Documented By: Jimmy Matias MD 5 1307 Signed By: 05/16/[address] [facility]01-06-2025 Progress note Author Shira Nath [facility] Note Date/Time May 16, 2024 10 :24am [facility] [address] [place] [address] Hospitalist Progress Note Signed Patient: Juan Simon MR#: [id number] : 1955 Acct:[id number] Age/Sex: 68 / M Adm Date: 4 Loc: 4P Room: 5P0457-3 Type: ADM IN Attending Dr: Shira Nath MD Copies to: ~ Date of Service: 05/16/2024 Subjective Subjective Narrative: Patient was evaluated at bedside, Reported that he feels better. Less cough andsputum production. Today he is on Fio2 100, 40 L on vapotherm. BiPAP overnight. Remained afebrile, WBC downtrending. remained on AB. Overall patient is calm andcooperative however he is confused, states his name. Not oriented to place or time. Exam Physical Exam Vital Signs: Temp Pulse Resp BP Pulse Ox O2 Del Method O2 Flow Rate 98.3 F 92 22 153/76 H 92 L BiPAP 40 05/16/24 08:00 05/16/24 08:38 05/16/24 08:38 05/16/24 08:00 05/16/24 08:38 05/16/24 08:00 05/16/24 08:38 FiO2 100 05/16/24 08:38 Narrative: Const General: cooperative, on high flow nasal cannula HEENT Normal oropharyngeal mucosa without any ulcers or exudates Eyes: Conjunctiva normal Pulmonary Auscultation: diminished breath sounds, no crackles, no wheezes Cardiovascular Rate: normal rate Rhythm: regular rhythm Heart Sounds: S1 normal, S2 normal and no murmurs GI Inspection: non-distended Palpation: soft, not firm and nontender. No rigidity or rebound. Deferred Neuro General: alert, awake and oriented to self, states his name, not oriented to place or time. does not know [place] president. No obvious new focal deficit Musculoskeletal: normal range of motion Extrem General: no cyanosis, trace pedal edema Psych Appearance: Calm, cooperative. Objective Lab Results 05/14/24 09:18 05/15/24 04:40 Microbiology Results Microbiology 05/14/24 06:40 Sputum - Expectorated Aerobic Culture - Preliminary Light Normal Respiratory Sarah 1 Day 05/14/24 06:40 Sputum - Expectorated Gram Stain - Final Meds Allergies and Active Meds Allergies gluten Allergy (Unknown, Verified 05/02/24 09:54) Unknown Reaction Active Meds: Active Medications Generic Name Dose Route Start Last Admin Trade Name Freq PRN Reason Stop Dose Admin Acetaminophen 650 mg 05/02/24 17:28 05/09/24 22:00 Acetaminophen 325 Mg Tablet PO 05/02/25 17:27 650 mg Q6H PRN Administration Pain 1-5 or fever Albuterol 2.5 mg 05/08/24 13:37 Albuterol Neb 2.5 Mg/3 Ml Vial.Neb INHALATION 05/02/25 17:26 Q3H PRN shortness of breath or wheezin Albuterol/Ipratropium 3 ml 05/10/24 14:00 05/16/24 08:34 Ipratropium/Albuterol 0.5-3 Mg 3 Ml Ampul.Neb INHALATION 05/10/25 13:59 3 ml TID EDIE Administration Aspirin 81 mg 05/06/24 09:00 05/16/24 08:53 Aspirin 81 Mg Tablet. PO 05/06/25 08:59 81 mg DAILY EDIE Administration Budesonide/Formoterol Fumarate 2 puff 05/02/24 21:00 05/16/24 08:34 Budesonide/Formoterol 160-4.5 Mcg 60 Puff/6 Gm Hfa.Aer.Ad INHALATION 05/02/25 20:59 2 puff BID EDIE Administration Dextrose 0 gm 05/11/24 08:45 Dextrose 50% In Water 25 Gm/50 Ml Syringe IV-PUSH 05/11/25 08:44 PRN PRN Hypoglycemia Diltiazem HCl 180 mg 05/12/24 09:30 05/16/24 08:55 Diltiazem Cd.24hr 180 Mg Cap.Er.24h PO 05/12/25 09:29 180 mg DAILY EDIE Administration Divalproex Sodium 250 mg 05/11/24 09:00 05/16/24 08:55 Divalproex Sodium 250 Mg Tablet. PO 05/11/25 08:59 250 mg BID EDIE Administration Doxycycline Hyclate 100 mg 05/12/24 21:00 05/16/24 08:55 Doxycycline Hyclate 100 Mg Tablet PO 100 mg BID EDIE Administration Duloxetine HCl 60 mg 05/13/24 09:00 05/16/24 08:54 Duloxetine 60 Mg Capsule.Dr CHO 05/13/25 08:59 60 mg DAILY EDIE Administration Enoxaparin Sodium 40 mg 05/09/24 13:04 05/16/24 09:05 Enoxaparin 40 Mg/0.4 Ml Syringe SUBCUT 05/09/25 13:03 40 mg DAILY@1000 EDIE Administration Glucose 0 gm 05/11/24 08:45 Dextrose 40% Gel 15 Gm Tube PO 05/11/25 08:44 PRN PRN Hypoglycemia Guaifenesin 10 ml 05/13/24 20:42 05/13/24 21:03 Guaifenesin Syrup 10 Ml Udc PO 05/13/25 20:41 10 ml Q4H PRN Administration Cough Piperacillin Sod/Tazobactam Sod 4.5 gm in 100 mls @ 25 mls/hr 05/15/24 22:00 05/16/24 06:41 Zosyn IV 25 mls/hr Q8H EDIE Administration Insulin Aspart 0 units 05/11/24 12:00 05/16/24 08:57 Insulin Aspart 300 Units/3 Ml SUBCUT 05/11/25 11:59 Not Given TID.WM.[facility] Protocol Insulin Human NPH 12 units 05/15/24 11:00 05/16/24 08:58 Insulin Nph Human Isophane 300 Units/3 Ml Insuln.Pen SUBCUT 05/15/25 10:59 12 units BID EDIE Administration Magnesium Oxide 400 mg 05/11/24 09:00 05/16/24 08:55 Magnesium Oxide 400 Mg Tablet PO 05/11/25 08:59 400 mg TID EDIE Administration Methylprednisolone Sodium Succinate 40 mg 05/12/24 14:00 05/16/24 08:52 Methylprednisolone Sod Succ/Pf 40 Mg/Ml (1ml) Vial IV-PUSH 05/12/25 13:59 40 mg Q6H EDIE Administration Metoprolol Succinate 37.5 mg 05/15/24 06:00 05/16/24 08:53 Metoprolol Succinate 50 Mg Tab.Er.24h PO 05/15/25 05:59 37.5 mg BID EDIE Administration Montelukast Sodium 10 mg 05/02/24 22:00 05/15/24 22:24 Montelukast 10 Mg Tablet PO 05/02/25 21:59 10 mg HS EDIE Administration Morphine Sulfate 1 mg 05/08/24 13:37 05/11/24 08:19 Morphine Sulfate 2 Mg/Ml Vial IV-PUSH 1 mg Q4H PRN Administration Pain Scale 7 - 10 Nystatin 400,000 unit 05/13/24 09:00 05/16/24 08:58 Nystatin Susp 500,000 Unit/5 Ml Udc PO 05/13/25 08:59 400,000 unit QID EDIE Administration Quetiapine Fumarate 25 mg 05/11/24 22:00 05/15/24 22:24 Quetiapine Fumarate 25 Mg Tablet PO 05/11/25 21:59 25 mg QHS EDIE Administration Sodium Chloride 0 ml 05/02/24 09:53 05/15/24 08:15 Sodium Chloride 0.9 % 10 Ml Syringe IV-PUSH 05/02/25 09:52 10 ml PRN PRN Administration Flush A&P - Hospitalist Assessment/Plan (1) Atrial fibrillation with rapid ventricular response: (2) Bacteremia due to group B Streptococcus: (3) Sepsis: (4) Urinary tract infection: (5) Acute hypoxic respiratory failure: (6) Pneumonia: Plan A-fib with RVR Continue Cardizem and beta-david orally. Patient is off Cardizem drip. Cardiology team does not recommend full dose anticoagulation. EF is normal Acute metabolic encephalopathy, possible seizure MRI could not be done here at [facility]. Neurology team recommended repeat CAT scan which does not show any evolution. Neurology team does not recommend any additional workup and investigation believing that his altered mental status is secondary to metabolic encephalopathy. Valproic acid level is pending. Neurology was consulted. Input appreciated. Sepsis, bacteremia UTI, pneumonia, hypoxic respiratory failure Repeat blood cultures are negative. UA is positive for strep and Enterococcus Patient is on high flow oxygen. Trying to wean him down. Patient is on Zosyn and doxycycline as well as Solu-Medrol. Patient was seen by speech who did not recommend any modification of his diet due to not exhibiting any signs and symptoms of aspiration as per speech. Defer further needed diagnostic and therapeutic intervention for his respiratoryand medical management while in ICU to the pulmonary team. Hypomagnesemia Replete as needed DVT prophylaxis Continue Lovenox and aspirin. No full dose anticoagulation by cardiology. Hyperglycemia, poor control. Continue sliding scale. Continue NPH 12 units twice a day with holding parameters. Multiple other subacute, chronic medical conditions that could be addressed electively. Patient would likely require skilled care. Pre cert had been submitted Patient still with high oxygen requirement, not ready yet for discharge at this time. Documented By: Shira Nath MD 05/16/24 10 16 Signed By: <Electronically signed by Shira Nath MD> 05/16/24 1024 [facility] Work Phone: 1(953) 775-188201-06-2025 [place] [id number] Hospitalist Progress Note Signed Patient: Juan Simon MR#: [id number] : 1955 Acct:[id number] Age/Sex: 68 / M Adm Date: 4 Loc: Room: [address] [place] [address] Type: ADM IN Attending Dr: Shira Nath MD Copies to: ~ Date of Service: 05/16/2024 Subjective Subjective Narrative: Patient was evaluated at bedside, Reported that he feels better. Less cough andsputum production. Today he is on Fio2 100, 40 L on vapotherm. BiPAP overnight. Remained afebrile, WBC downtrending. remained on AB. Overall patient is calm andcooperative however he is confused, states his name. Not oriented to place or time. Exam Physical Exam Vital Signs: Temp Pulse Resp BP Pulse Ox O2 Del Method O2 Flow Rate 98.3 F 92 22 153/76 H 92 L BiPAP 40 05/16/24 08:00 05/16/24 08:38 05/16/24 08:38 05/16/24 08:00 05/16/24 08:38 05/16/24 08:00 05/16/24 08:38 FiO2 100 05/16/24 08:38 Narrative: Const General: cooperative, on high flow nasal cannula HEENT Normal oropharyngeal mucosa without any ulcers or exudates Eyes: Conjunctiva normal Pulmonary Auscultation: diminished breath sounds, no crackles, no wheezes Cardiovascular Rate: normal rate Rhythm: regular rhythm Heart Sounds: S1 normal, S2 normal and no murmurs GI Inspection: non-distended Palpation: soft, not firm and nontender. No rigidity or rebound. Deferred Neuro General: alert, awake and oriented to self, states his name, not oriented to place or time. does not know [place] president. No obvious new focal deficit Musculoskeletal: normal range of motion Extrem General: no cyanosis, trace pedal edema Psych Appearance: Calm, cooperative. Objective Lab Results 05/14/24 09:18 05/15/24 04:40 Microbiology Results Microbiology 05/14/24 06:40 Sputum - Expectorated Aerobic Culture - Preliminary Light Normal Respiratory Sarah 1 Day 05/14/24 06:40 Sputum - Expectorated Gram Stain - Final Meds Allergies and Active Meds Allergies gluten Allergy (Unknown, Verified 05/02/24 09:54) Unknown Reaction Active Meds: Active Medications Generic Name Dose Route Start Last Admin Trade Name Freq PRN Reason Stop Dose Admin Acetaminophen 650 mg 05/02/24 17:28 05/09/24 22:00 Acetaminophen 325 Mg Tablet PO 05/02/25 17:27 650 mg Q6H PRN Administration Pain 1-5 or fever Albuterol 2.5 mg 05/08/24 13:37 Albuterol Neb 2.5 Mg/3 Ml Vial.Neb INHALATION 05/02/25 17:26 Q3H PRN shortness of breath or wheezin Albuterol/Ipratropium 3 ml 05/10/24 14:00 05/16/24 08:34 Ipratropium/Albuterol 0.5-3 Mg 3 Ml Ampul.Neb INHALATION 05/10/25 13:59 3 ml TID EDIE Administration Aspirin 81 mg 05/06/24 09:00 05/16/24 08:53 Aspirin 81 Mg Tablet. PO 05/06/25 08:59 81 mg DAILY EDIE Administration Budesonide/Formoterol Fumarate 2 puff 05/02/24 21:00 05/16/24 08:34 Budesonide/Formoterol 160-4.5 Mcg 60 Puff/6 Gm Hfa.Aer.Ad INHALATION 05/02/25 20:59 2 puff BID EDIE Administration Dextrose 0 gm 05/11/24 08:45 Dextrose 50% In Water 25 Gm/50 Ml Syringe IV-PUSH 05/11/25 08:44 PRN PRN Hypoglycemia Diltiazem HCl 180 mg 05/12/24 09:30 05/16/24 08:55 Diltiazem Cd.24hr 180 Mg Cap.Er.24h PO 05/12/25 09:29 180 mg DAILY EDIE Administration Divalproex Sodium 250 mg 05/11/24 09:00 05/16/24 08:55 Divalproex Sodium 250 Mg Tablet. PO 05/11/25 08:59 250 mg BID EDIE Administration Doxycycline Hyclate 100 mg 05/12/24 21:00 05/16/24 08:55 Doxycycline Hyclate 100 Mg Tablet PO 100 mg BID EDIE Administration Duloxetine HCl 60 mg 05/13/24 09:00 05/16/24 08:54 Duloxetine 60 Mg Capsule.Dr PO 05/13/25 08:59 60 mg DAILY EDIE Administration Enoxaparin Sodium 40 mg 05/09/24 13:04 05/16/24 09:05 Enoxaparin 40 Mg/0.4 Ml Syringe SUBCUT 05/09/25 13:03 40 mg DAILY@1000 EDIE Administration Glucose 0 gm 05/11/24 08:45 Dextrose 40% Gel 15 Gm Tube PO 05/11/25 08:44 PRN PRN Hypoglycemia Guaifenesin 10 ml 05/13/24 20:42 05/13/24 21:03 Guaifenesin Syrup 10 Ml Udc PO 05/13/25 20:41 10 ml Q4H PRN Administration Cough Piperacillin Sod/Tazobactam Sod 4.5 gm in 100 mls @ 25 mls/hr 05/15/24 22:00 05/16/24 06:41 Zosyn IV 25 mls/hr Q8H EDIE Administration Insulin Aspart 0 units 05/11/24 12:00 05/16/24 08:57 Insulin Aspart 300 Units/3 Ml SUBCUT 05/11/25 11:59 Not Given TID.WM.HS [facility] Protocol Insulin Human NPH 12 units 05/15/24 11:00 05/16/24 08:58 Insulin Nph Human Isophane 300 Units/3 Ml Insuln.Pen SUBCUT 05/15/25 10:59 12 units BID EDIE Administration Magnesium Oxide 400 mg 05/11/24 09:00 05/16/24 08:55 Magnesium Oxide 400 Mg Tablet PO 05/11/25 08:59 400 mg TID EDIE Administration Methylprednisolone Sodium Succinate 40 mg 05/12/24 14:00 05/16/24 08:52 Methylprednisolone Sod Succ/Pf 40 Mg/Ml (1ml) Vial IV-PUSH 05/12/25 13:59 40 mg Q6H EDIE Administration Metoprolol Succinate 37.5 mg 05/15/24 06:00 05/16/24 08:53 Metoprolol Succinate 50 Mg Tab.Er.24h PO 05/15/25 05:59 37.5 mg BID EDIE Administration Montelukast Sodium 10 mg 05/02/24 22:00 05/15/24 22:24 Montelukast 10 Mg Tablet PO 05/02/25 21:59 10 mg HS EDIE Administration Morphine Sulfate 1 mg 05/08/24 13:37 05/11/24 08:19 Morphine Sulfate 2 Mg/Ml Vial IV-PUSH 1 mg Q4H PRN Administration Pain Scale 7 - 10 Nystatin 400,000 unit 05/13/24 09:00 05/16/24 08:58 Nystatin Susp 500,000 Unit/5 Ml Udc PO 05/13/25 08:59 400,000 unit QID EDIE Administration Quetiapine Fumarate 25 mg 05/11/24 22:00 05/15/24 22:24 Quetiapine Fumarate 25 Mg Tablet PO 05/11/25 21:59 25 mg QHS EDIE Administration Sodium Chloride 0 ml 05/02/24 09:53 05/15/24 08:15 Sodium Chloride 0.9 % 10 Ml Syringe IV-PUSH 05/02/25 09:52 10 ml PRN PRN Administration Flush A&P - Hospitalist Assessment/Plan (1) Atrial fibrillation with rapid ventricular response: (2) Bacteremia due to group B Streptococcus: (3) Sepsis: (4) Urinary tract infection: (5) Acute hypoxic respiratory failure: (6) Pneumonia: Plan A-fib with RVR Continue Cardizem and beta-david orally. Patient is off Cardizem drip. Cardiology team does not recommend full dose anticoagulation. EF is normal Acute metabolic encephalopathy, possible seizure MRI could not be done here at [facility]. Neurology team recommended repeat CAT scan which does not show any evolution. Neurology team does not recommend any additional workup and investigation believing that his altered mental status is secondary to metabolic encephalopathy. Valproic acid level is pending. Neurology was consulted. Input appreciated. Sepsis, bacteremia UTI, pneumonia, hypoxic respiratory failure Repeat blood cultures are negative. UA is positive for strep and Enterococcus Patient is on high flow oxygen. Trying to wean him down. Patient is on Zosyn and doxycycline as well as Solu-Medrol. Patient was seen by speech who did not recommend any modification of his diet due to not exhibitingany signs and symptoms of aspiration as per speech. Defer further needed diagnostic and therapeutic intervention for his respiratoryand medical management while in ICU to the pulmonary team. Hypomagnesemia Replete as needed DVT prophylaxis Continue Lovenox and aspirin. No full dose anticoagulation by cardiology. Hyperglycemia, poor control. Continue sliding scale. Continue NPH 12 units twice a day with holding parameters. Multiple other subacute, chronic medical conditions that could be addressed electively. Patient would likely require skilled care. Pre cert had been submitted Patient still with high oxygen requirement, not ready yet for discharge at this time. Documented By: Shira Nath MD 05/16/24 10 16 Signed By: 05/16/[address] [place], [place] 1331601-05-2025 Progress note Author Miladis Rodriguez [facility] Note Date/Time May 15, 2024 6: 41pm [facility] [address] [place] [address] Pulmonology Progress Note Signed Patient: Juan Simon MR#: [id number] : 1955 Acct:[id number] Age/Sex: 68 / M Adm Date: 4 Loc: Room: [address] [place] [address] Type: ADM IN Attending Dr: Hilda Ruiz MD Copies to: ~ Date of Service: 05/15/2024 Subjective Subjective Narrative: - better today down to 25L hi flow 80% FIO2, transferred out to stepdown from ICU - denies hemoptysis today Exam Physical Exam Vital Signs: Temp Pulse Resp BP Pulse Ox O2 Del Method O2 Flow Rate 98.5 F 88 26 H 130/71 92 L High Flow 35 05/15/24 15:12 05/15/24 15:12 05/15/24 15:12 05/15/24 15:12 05/15/24 15:12 05/15/24 16:00 05/15/24 16:00 FiO2 70 05/15/24 16:00 Const Other: Gen: Chronically ill appearing not in respiratory distress HENT: EOMI PERRL no thrush Neck: supple no JVD CVS: RRR -m/r/g Lungs: scattered rhonchi and wheezing bilaterally Abd: soft non tender Ext: no LE edema good cap refill Neuro: AOx3 non focal motor and sensory exam Objective Intake and Output I&O - Last 24 Hours: Intake & Output 05/15/24 05/15/24 05/15/24 07:59 15:59 23:59 Intake Total 150 / 250 100 / 250 Output Total 350 / 350 Balance -200 / -100 100 / -100 Weight 97.8 kg Labs 05/14/24 09:18 05/15/24 04:40 Microbiology Micro: Microbiology 3 05/14/24 06:40 Aerobic Culture - Preliminary Sputum - Expectorated Light Normal Respiratory Sarah 1 Day Gram Stain - Final Assessment/Plan Assessment/Plan (1) Sepsis: (2) Atrial fibrillation with rapid ventricular response: (3) Urinary tract infection: (4) Bacteremia due to Streptococcus: Plan - follow sputum cultures, continue empiric atbx and steroids for now - slow to improve but we are able to start coming down on hi flow gradually - monitor for further hemoptysis - continue BIPAP qhs and hi flow during the day, wean as tolerated - continue nebs and pulmonary toilet - pulmonary to follow Documented By: Miladis Rodriguez MD [id number] Signed By: <Electronically signed by Miladis Rodriguez MD> 05/15/24 1841 [facility] Work Phone: [phone] 811-912301-05-2025 [place] [address] Pulmonology Progress Note Signed Patient: Juan Simon MR#: [id number] : 1955 Acct:[id number] Age/Sex: 68 / M Adm Date: 4 Loc: Room: [address] [place] [address] Type: ADM IN Attending Dr: Hilda Ruiz MD Copies to: ~ Date of Service: 05/15/2024 Subjective Subjective Narrative: - better today down to 25L hi flow 80% FIO2, transferred out to stepdown from ICU - denies hemoptysis today Exam Physical Exam Vital Signs: Temp Pulse Resp BP Pulse Ox O2 Del Method O2 Flow Rate 98.5 F 88 26 H 130/71 92 L High Flow 35 05/15/24 15:12 05/15/24 15:12 05/15/24 15:12 05/15/24 15:12 05/15/24 15:12 05/15/24 16:00 05/15/24 16:00 FiO2 70 05/15/24 16:00 Const Other: Gen: Chronically ill appearing not in respiratory distress HENT: EOMI PERRL no thrush Neck: supple no JVD CVS: RRR -m/r/g Lungs: scattered rhonchi and wheezing bilaterally Abd: soft non tender Ext: no LE edema good cap refill Neuro: AOx3 non focal motor and sensory exam Objective Intake and Output I&O - Last 24 Hours: Intake & Output 05/15/24 05/15/24 05/15/24 07:59 15:59 23:59 Intake Total 150 / 250 100 / 250 Output Total 350 / 350 Balance -200 / -100 100 / -100 Weight 97.8 kg Labs 05/14/24 09:18 05/15/24 04:40 Microbiology Micro: Microbiology 3 05/14/24 06:40 Aerobic Culture - Preliminary Sputum - Expectorated Light Normal Respiratory Sarah 1 Day Gram Stain - Final Assessment/Plan Assessment/Plan (1) Sepsis: (2) Atrial fibrillation with rapid ventricular response: (3) Urinary tract infection: (4) Bacteremia due to Streptococcus: Plan - follow sputum cultures, continue empiric atbx and steroids for now - slow to improve but we are able to start coming down on hi flow gradually - monitor for further hemoptysis - continue BIPAP qhs and hi flow during the day, wean as tolerated - continue nebs and pulmonary toilet - pulmonary to follow Documented By: Miladis Rodriguez MD 1839 Signed By: 05/15/[address] [facility]01-05-2025 Progress note Author Lavern Dahl [facility] Note Date/Time May 15, 2024 1: 55pm [facility] [address] [place] [address] Neurology Progress Note Signed Patient: Juan Simon MR#: [id number] : 1955 Acct:[id number] Age/Sex: 68 / M Adm Date: 4 Loc: 4 Room: [address] [place] [address] Type: ADM IN Attending Dr: Hilda Ruiz MD Copies to: ~ Date of Service: 05/15/2024 Subjective Subjective Narrative: Patient was moved to the stepdown unit. He is cognitively a little better todaythan he was yesterday. Sister is in the room with them. He denies any new events through the night. No new headaches no chest pain no shortness of breathno nausea or vomiting. No new numbness tingling or weakness. He is up sitting in the chair. He recognizes me right away. Exam Physical Exam Vital Signs: Temp Pulse Resp BP Pulse Ox O2 Del Method O2 Flow Rate 37 F L 86 24 129/73 93 L High Flow 40 05/15/24 09:31 05/15/24 06:09 05/15/24 06:09 05/15/24 06:00 05/15/24 06:09 05/15/24 08:00 05/15/24 09:31 FiO2 60 05/15/24 09:31 Neuro Other: Patient is sitting in the chair He is less confused today. He knows he is at [facility] he knows it is May he knows the year and is in he says but realizes it is 2024 when we correcthim. He is answering questions and following commands much better than he did yesterday. speech was clear and fluent Cranial nerves II through XII pupils are equal reactive to light and accommodation bilaterally extraocular muscles were intact bilaterally visual benton are full there is no nystagmus there is no facial asymmetry tongue is midline good range of motion palate rises symmetrically uvula is midline there are no facial sensory deficit he has good bilateral shoulder shrug Pronator drift is negative Coordination shows no signs of dysmetria with good rapid alternating movements [id number] Tone is physiologic Motor examination is 5- out of 5/4 Language skills are intact Objective Vital Signs Vital Signs: Vital Signs - 24 hr 05/14/24 12:00 05/14/24 13:00 05/14/24 13:32 Temperature 97.8 F Pulse Rate 91 86 82 Respiratory Rate 26 H 26 H 24 Blood Pressure 127/76 124/62 02 Sat by Pulse Oximetry 94 L 94 L Oxygen Delivery Method High Flow High Flow Oxygen Flow Rate Fraction of Inspired Oxygen 70 70 05/14/24 13:33 05/14/24 13:39 05/14/24 14:00 Temperature Pulse Rate 82 84 82 Respiratory Rate 24 24 26 H Blood Pressure 110/71 02 Sat by Pulse Oximetry 92 L 94 L Oxygen Delivery Method High Flow Oxygen Flow Rate 35 Fraction of Inspired Oxygen 70 70 05/14/24 15:00 05/14/24 16:00 05/14/24 16:00 Temperature 97.4 F L Pulse Rate 92 95 Respiratory Rate 26 H 26 H Blood Pressure 107/68 126/68 02 Sat by Pulse Oximetry 94 L 94 L Oxygen Delivery Method High Flow High Flow High Flow Oxygen Flow Rate Fraction of Inspired Oxygen 70 70 05/14/24 17:00 05/14/24 18:00 05/14/24 18:16 Temperature Pulse Rate 96 96 97 Respiratory Rate 26 H 26 H 22 Blood Pressure 136/66 118/65 02 Sat by Pulse Oximetry 94 L 95 95 Oxygen Delivery Method High Flow High Flow Oxygen Flow Rate 35 Fraction of Inspired Oxygen 70 70 70 05/14/24 19:00 05/14/24 20:00 05/14/24 20:00 Temperature 96.6 F L Pulse Rate 96 95 Respiratory Rate 26 H 24 Blood Pressure 128/70 124/70 02 Sat by Pulse Oximetry 96 97 Oxygen Delivery Method High Flow High Flow High Flow Oxygen Flow Rate Fraction of Inspired Oxygen 70 70 05/14/24 20:32 05/14/24 20:41 05/14/24 20:42 Temperature Pulse Rate 94 94 94 Respiratory Rate 20 18 18 Blood Pressure 02 Sat by Pulse Oximetry 93 L Oxygen Delivery Method Oxygen Flow Rate 35 Fraction of Inspired Oxygen 70 05/14/24 21:00 05/14/24 22:00 05/14/24 22:00 Temperature Pulse Rate 96 93 98 Respiratory Rate 22 18 25 H Blood Pressure 124/70 124/70 02 Sat by Pulse Oximetry 94 L 97 96 Oxygen Delivery Method High Flow BiPAP Oxygen Flow Rate Fraction of Inspired Oxygen 70 70 70 05/14/24 23:00 05/15/24 00:00 05/15/24 00:12 Temperature 97.5 F L Pulse Rate 87 86 Respiratory Rate 26 H 19 Blood Pressure 124/70 121/71 02 Sat by Pulse Oximetry 95 95 Oxygen Delivery Method BiPAP BiPAP BiPAP Oxygen Flow Rate Fraction of Inspired Oxygen 70 70 05/15/24 00:12 05/15/24 01:00 05/15/24 02:00 Temperature Pulse Rate 85 87 87 Respiratory Rate 18 17 19 Blood Pressure 116/72 127/71 02 Sat by Pulse Oximetry 94 L 95 96 Oxygen Delivery Method BiPAP BiPAP Oxygen Flow Rate Fraction of Inspired Oxygen 70 70 70 05/15/24 03:13 05/15/24 04:00 05/15/24 04:00 Temperature 98.6 F Pulse Rate 87 89 Respiratory Rate 21 28 H Blood Pressure 119/73 02 Sat by Pulse Oximetry 92 L 90 L Oxygen Delivery Method High Flow High Flow Oxygen Flow Rate 35 35 Fraction of Inspired Oxygen 70 70 05/15/24 05:00 05/15/24 05:11 05/15/24 05:19 Temperature Pulse Rate 90 91 94 Respiratory Rate 26 H 24 24 Blood Pressure 131/73 02 Sat by Pulse Oximetry 90 L 95 Oxygen Delivery Method High Flow Oxygen Flow Rate 35 Fraction of Inspired Oxygen 80 80 05/15/24 06:00 05/15/24 06:09 05/15/24 08:00 Temperature 37 F L Pulse Rate 90 86 Respiratory Rate 22 24 Blood Pressure 129/73 02 Sat by Pulse Oximetry 92 L 93 L Oxygen Delivery Method BiPAP Oxygen Flow Rate 40 Fraction of Inspired Oxygen 70 70 80 05/15/24 08:00 05/15/24 08:00 05/15/24 08:30 Temperature 37 F L Pulse Rate Respiratory Rate Blood Pressure 02 Sat by Pulse Oximetry Oxygen Delivery Method High Flow High Flow Oxygen Flow Rate 35 40 Fraction of Inspired Oxygen 80 70 05/15/24 09:31 Temperature 37 F L Pulse Rate Respiratory Rate Blood Pressure 02 Sat by Pulse Oximetry Oxygen Delivery Method Oxygen Flow Rate 40 Fraction of Inspired Oxygen 60 Labs 05/14/24 09:18 05/15/24 04:40 Lab Results: Valproic Acid 32.3 ug/mL (50.0-100.0) L 05/13/24 03:48 Therapy Recommendations Therapy Recommendations: OT Recommendations OT Recommended Discharge Nursing Home Facility,Inpatient Rehab Unit Location OT Recommended Services at Physical Therapy,Occupational Therapy Discharge PT Recommendations PT Recommended Discharge Nursing Home Facility Location PT Recommended Services at Physical Therapy,Occupational Therapy Discharge ST Recommendations Liquid Consistency Thin Liquids Recommendation Solid Consistency Regular Solids Recommendations Meat Consistency Whole Meats Recommendations Medication Administration Whole Pills,Give Pills with Water Dysphagia Swallow Precautions/ Sitting Upright (90 deg) Strategies Assessment/Plan (1) Altered mental status: Qualifiers: Altered mental status type: delirium Qualified Code(s): R41.0 - Disorientation, unspecified Plan DATA REVIEW: -CTA of the chest:No acute pulmonary embolus. patchy right upper lung consolidation. Mild patchy left perihilar consolidation. Small layering pleural effusions. -Head CT May 02, 2024 nonacute, shows chronic right mastoiditis and possible otitis -MRI brain September 22, 2023 without contrast looks unremarkable aside from some chronic age-related neurodegenerative changes -Blood cultures May 02, 2024 2 of 2 group B strep, urine culture with 20,000 colonies Enterococcus faecalis and strep group B -Updated MRI of the brain: Unable to be completed -Repeat CT scan of the brain: No evidence of intracranial abnormality or acute process. Repeat CT scan of the brain on 05/13/2024: Stable without evidence of intracranialbleed or other acute process. -Routine EEG on 05/13/2024: Moderate to severe slowing. No evidence of epileptiform abnormalities. No seizures recorded. No clinical events of seizure identified. ASSESSMENT: 68-year-old male with acute confusion with a metabolic encephalopathy secondary to bacteremia, UTI and pneumonia. He may have some underlying memory issue which we assessed when he follows up with me in the office. He is improving. His mentation has improved significantly over the last couple days. He is closeto his normal but occasionally still shows some signs of confusion. He did havean unresponsive event of unknown etiology. He did not have any seizure-like activity and he has not had any further events. His EEG was slow but no seizureactivity. He is on Depakote for mood not for seizure disorder. Please call if he has new events. At this time he is close to baseline. Patient does have a urinalysis which is positive for strep and Enterococcus and continued on Zosyn. He also has pneumonia and impressive infiltration on chest x-ray and hypoxia. Blood cultures at this time are negative. Depakote level is 32.3 therefore if he has further events we could load more Depakote however at this time I would hold is not entirely convincing that this unresponsive event was a seizure Patient still has a leukocytosis therefore I suspect much of this is more metabolic in nature. Plan Continue supportive care as he is improving Monitor for new unresponsive events or any seizure-like activity Depakote level is 32.2 therefore can load him and go higher if needed but will hold at this time since he is showing some improvement At this time he is cognitively improving he has no other acute neurologic needs please call if he has any other new events and would be happy to read participate in neurology to sign off at this time. This was all discussed with the patient and sister all questions were answered they agreed with the treatment plan Documented By: Lavern Dahl DO 05/15/24 2825 Signed By: <Electronically signed by DO Lavern Dahl> 05/15/24 1355 [facility] Work Phone: [phone] [place] [address] Neurology Progress Note Signed Patient: Juan Simon MR#: [id number] : 1955 Acct:[id number] Age/Sex: 68 / M Adm Date: 4 Loc: 4 Room: [address] [place] [address] Type: ADM IN Attending Dr: Hilda Ruiz MD Copies to: ~ Date of Service: 05/15/2024 Subjective Subjective Narrative: Patient was moved to the stepdown unit. He is cognitively a little better todaythan he was yesterday. Sister is in the room with them. He denies any new events through the night. No new headaches no chest pain no shortness of breathno nausea or vomiting. No new numbness tingling or weakness. He is up sitting in the chair. He recognizes me right away. Exam Physical Exam Vital Signs: Temp Pulse Resp BP Pulse Ox O2 Del Method O2 Flow Rate 37 F L 86 24 129/73 93 L High Flow 40 05/15/24 09:31 05/15/24 06:09 05/15/24 06:09 05/15/24 06:00 05/15/24 06:09 05/15/24 08:00 05/15/24 09:31 FiO2 60 05/15/24 09:31 Neuro Other: Patient is sitting in the chair He is less confused today. He knows he is at [facility] he knows it is May he knows the year andis in 5 he says 05 but realizes it is 2024 when we correcthim. He is answering questions and following commands much better than he did yesterday. speech was clear and fluent Cranial nerves II through XII pupils are equal reactive to light and accommodation bilaterally extraocular muscles were intact bilaterally visual benton are full there is no nystagmus there is no facial asymmetry tongue is midline good range of motion palate rises symmetrically uvula is midline there are no facial sensory deficit he has good bilateral shoulder shrug Pronator drift is negative Coordination shows no signs of dysmetria with good rapid alternating movements [id number] Tone is physiologic Motor examination is 5- out of 5/4 Language skills are intact Objective Vital Signs Vital Signs: Vital Signs - 24 hr 05/14/24 12:00 05/14/24 13:00 05/14/24 13:32 Temperature 97.8 F Pulse Rate 91 86 82 Respiratory Rate 26 H 26 H 24 Blood Pressure 127/76 124/62 02 Sat by Pulse Oximetry 94 L 94 L Oxygen Delivery Method High Flow High Flow Oxygen Flow Rate Fraction of Inspired Oxygen 70 70 05/14/24 13:33 05/14/24 13:39 05/14/24 14:00 Temperature Pulse Rate 82 84 82 Respiratory Rate 24 24 26 H Blood Pressure 110/71 02 Sat by Pulse Oximetry 92 L 94 L Oxygen Delivery Method High Flow Oxygen Flow Rate 35 Fraction of Inspired Oxygen 70 70 05/14/24 15:00 05/14/24 16:00 05/14/24 16:00 Temperature 97.4 F L Pulse Rate 92 95 Respiratory Rate 26 H 26 H Blood Pressure 107/68 126/68 02 Sat by Pulse Oximetry 94 L 94 L Oxygen Delivery Method High Flow High Flow High Flow Oxygen Flow Rate Fraction of Inspired Oxygen 70 70 05/14/24 17:00 05/14/24 18:00 05/14/24 18:16 Temperature Pulse Rate 96 96 97 Respiratory Rate 26 H 26 H 22 Blood Pressure 136/66 118/65 02 Sat by Pulse Oximetry 94 L 95 95 Oxygen Delivery Method High Flow High Flow Oxygen Flow Rate 35 Fraction of Inspired Oxygen 70 70 70 05/14/24 19:00 05/14/24 20:00 05/14/24 20:00 Temperature 96.6 F L Pulse Rate 96 95 Respiratory Rate 26 H 24 Blood Pressure 128/70 124/70 02 Sat by Pulse Oximetry 96 97 Oxygen Delivery Method High Flow High Flow High Flow Oxygen Flow Rate Fraction of Inspired Oxygen 70 70 05/14/24 20:32 05/14/24 20:41 05/14/24 20:42 Temperature Pulse Rate 94 94 94 Respiratory Rate 20 18 18 Blood Pressure 02 Sat by Pulse Oximetry 93 L Oxygen Delivery Method Oxygen Flow Rate 35 Fraction of Inspired Oxygen 70 05/14/24 21:00 05/14/24 22:00 05/14/24 22:00 Temperature Pulse Rate 96 93 98 Respiratory Rate 22 18 25 H Blood Pressure 124/70 124/70 02 Sat by Pulse Oximetry 94 L 97 96 Oxygen Delivery Method High Flow BiPAP Oxygen Flow Rate Fraction of Inspired Oxygen 70 70 70 05/14/24 23:00 05/15/24 00:00 05/15/24 00:12 Temperature 97.5 F L Pulse Rate 87 86 Respiratory Rate 26 H 19 Blood Pressure 124/70 121/71 02 Sat by Pulse Oximetry 95 95 Oxygen Delivery Method BiPAP BiPAP BiPAP Oxygen Flow Rate Fraction of Inspired Oxygen 70 70 05/15/24 00:12 05/15/24 01:00 05/15/24 02:00 Temperature Pulse Rate 85 87 87 Respiratory Rate 18 17 19 Blood Pressure 116/72 127/71 02 Sat by Pulse Oximetry 94 L 95 96 Oxygen Delivery Method BiPAP BiPAP Oxygen Flow Rate Fraction of Inspired Oxygen 70 70 70 05/15/24 03:13 05/15/24 04:00 05/15/24 04:00 Temperature 98.6 F Pulse Rate 87 89 Respiratory Rate 21 28 H Blood Pressure 119/73 02 Sat by Pulse Oximetry 92 L 90 L Oxygen Delivery Method High Flow High Flow Oxygen Flow Rate 35 35 Fraction of Inspired Oxygen 70 70 05/15/24 05:00 05/15/24 05:11 05/15/24 05:19 Temperature Pulse Rate 90 91 94 Respiratory Rate 26 H 24 24 Blood Pressure 131/73 02 Sat by Pulse Oximetry 90 L 95 Oxygen Delivery Method High Flow Oxygen Flow Rate 35 Fraction of Inspired Oxygen 80 80 05/15/24 06:00 05/15/24 06:09 05/15/24 08:00 Temperature 37 F L Pulse Rate 90 86 Respiratory Rate 22 24 Blood Pressure 129/73 02 Sat by Pulse Oximetry 92 L 93 L Oxygen Delivery Method BiPAP Oxygen Flow Rate 40 Fraction of Inspired Oxygen 70 70 80 05/15/24 08:00 05/15/24 08:00 05/15/24 08:30 Temperature 37 F L Pulse Rate Respiratory Rate Blood Pressure 02 Sat by Pulse Oximetry Oxygen Delivery Method High Flow High Flow Oxygen Flow Rate 35 40 Fraction of Inspired Oxygen 80 70 05/15/24 09:31 Temperature 37 F L Pulse Rate Respiratory Rate Blood Pressure 02 Sat by Pulse Oximetry Oxygen Delivery Method Oxygen Flow Rate 40 Fraction of Inspired Oxygen 60 Labs 05/14/24 09:18 05/15/24 04:40 Lab Results: Valproic Acid 32.3 ug/mL (50.0-100.0) L 05/13/24 03:48 Therapy Recommendations Therapy Recommendations: OT Recommendations OT Recommended Discharge Nursing Home Facility,Inpatient Rehab Unit Location OT Recommended Services at Physical Therapy,Occupational Therapy Discharge PT Recommendations PT Recommended Discharge Nursing Home Facility Location PT Recommended Services at Physical Therapy,Occupational Therapy Discharge ST Recommendations Liquid Consistency Thin Liquids Recommendation Solid Consistency Regular Solids Recommendations Meat Consistency Whole Meats Recommendations Medication Administration Whole Pills,Give Pills with Water Dysphagia Swallow Precautions/ Sitting Upright (90 deg) Strategies Assessment/Plan (1) Altered mental status: Qualifiers: Altered mental status type: delirium Qualified Code(s): R41.0 - Disorientation, unspecified Plan DATA REVIEW: -CTA of the chest:No acute pulmonary embolus. patchy right upper lung consolidation. Mild patchy left perihilar consolidation. Small layering pleural effusions. -Head CT May 02, 2024 nonacute, shows chronic right mastoiditis and possible otitis -MRI brain September 22, 2023 without contrast looks unremarkable aside from some chronic age-related neurodegenerative changes -Blood cultures May 02, 2024 2 of 2 group B strep, urine culture with 20,000 colonies Enterococcus faecalis and strep group B -Updated MRI of the brain: Unable to be completed -Repeat CT scan of the brain: No evidence of intracranial abnormality or acute process. Repeat CT scan of the brain on 05/13/2024: Stable without evidence of intracranialbleed or other acute process. -Routine EEG on 05/13/2024: Moderate to severe slowing. No evidence of epileptiform abnormalities. Noseizures recorded. No clinical events of seizure identified. ASSESSMENT: 68-year-old male with acute confusion with a metabolic encephalopathy secondary to bacteremia, UTI and pneumonia. He may have some underlying memory issue which we assessed when he follows up with kostan the office. He is improving. His mentation has improved significantly over the last couple days.He is closeto his normal but occasionally still shows some signs of confusion. He did havean unresponsive event of unknown etiology. He did not have any seizure-like activity and he has not had any further events. His EEG was slow but no seizureactivity. He is on Depakote for mood not for seizure disorder. Please call if he has new events. At this timehe is close to baseline. Patient does have a urinalysis which is positive for strep and Enterococcus and continued on Zosyn.He also has pneumonia and impressive infiltration on chest x- ray and hypoxia. Blood cultures at this time are negative. Depakote level is 32.3 therefore if he has further events we could load more Depakote however at this time I would hold is not entirely convincing that this unresponsive event was a seizure Patient still has a leukocytosis therefore I suspect much of this is more metabolic in nature. Plan Continue supportive care as he is improving Monitor for new unresponsive events or any seizure-like activity Depakote level is 32.2 therefore can load him and go higher if needed but will hold at this time since he is showing some improvement At this time he is cognitively improving he has no other acute neurologic needs please call if he has any other new events and would be happy to read participate in neurology to sign off at this time. This was all discussed with the patient and sister all questions were answered they agreed with thetreatment plan Documented By: Lavern Dahl DO 05/15/24 1050 Signed By: 05/15/[address] [facility]01-05-2025 Progress note Author Hilda Ruiz [facility] Note Date/Time May 15, 2024 10 :55am [facility] [address] [place] [address] Hospitalist Progress Note Signed Patient: Juan Simon MR#: [id number] : 1955 Acct:[id number] Age/Sex: 68 / M Adm Date: 4 Loc: Room: [address] [place] [address] Type: ADM IN Attending Dr: Hilda Ruiz MD Copies to: ~ Date of Service: 05/15/2024 Subjective Subjective Narrative: Reported that he feels better. He continues to require high flow oxygen at 85%,25 L. No chest or abdominal Exam Physical Exam Vital Signs: Temp Pulse Resp BP Pulse Ox O2 Del Method O2 Flow Rate 37 F L 86 24 129/73 93 L High Flow 40 05/15/24 09:31 05/15/24 06:09 05/15/24 06:09 05/15/24 06:00 05/15/24 06:09 05/15/24 08:00 05/15/24 09:31 FiO2 60 05/15/24 09:31 Narrative: Patient is lying in bed in ICU. Awake and oriented. His mental status is improved. Patient continues to be tachypneic. He is requiring high flow %. Chest exam revealed bilateral rhonchi. Heart is regular and sinus on the monitor. Abdomen soft. Lower extremities trace pitting edema. Mild to moderate functional loss needing assist changing position and standing up. Objective Lab Results 05/14/24 09:18 05/15/24 04:40 Microbiology Results Microbiology 05/14/24 06:40 Sputum - Expectorated Gram Stain - Final Meds Allergies and Active Meds Allergies gluten Allergy (Unknown, Verified 05/02/24 09:54) Unknown Reaction Active Meds: Active Medications Generic Name Dose Route Start Last Admin Trade Name Freq PRN Reason Stop Dose Admin Acetaminophen 650 mg 05/02/24 17:28 05/09/24 22:00 Acetaminophen 325 Mg Tablet PO 05/02/25 17:27 650 mg Q6H PRN Administration Pain 1-5 or fever Albuterol 2.5 mg 05/08/24 13:37 Albuterol Neb 2.5 Mg/3 Ml Vial.Neb INHALATION 05/02/25 17:26 Q3H PRN shortness of breath or wheezin Albuterol/Ipratropium 3 ml 05/10/24 14:00 05/15/24 05:11 Ipratropium/Albuterol 0.5-3 Mg 3 Ml Ampul.Neb INHALATION 05/10/25 13:59 3 ml TID EDIE Administration Aspirin 81 mg 05/06/24 09:00 05/15/24 09:08 Aspirin 81 Mg Tablet.Dr CHO 05/06/25 08:59 81 mg DAILY EDIE Administration Budesonide/Formoterol Fumarate 2 puff 05/02/24 21:00 05/15/24 05:11 Budesonide/Formoterol 160-4.5 Mcg 60 Puff/6 Gm Hfa.Aer.Ad INHALATION 05/02/25 20:59 2 puff BID EDIE Administration Dextrose 0 gm 05/11/24 08:45 Dextrose 50% In Water 25 Gm/50 Ml Syringe IV-PUSH 05/11/25 08:44 PRN PRN Hypoglycemia Diltiazem HCl 180 mg 05/12/24 09:30 05/15/24 09:08 Diltiazem Cd.24hr 180 Mg Cap.Er.24h PO 05/12/25 09:29 180 mg DAILY EDIE Administration Divalproex Sodium 250 mg 05/11/24 09:00 05/15/24 09:08 Divalproex Sodium 250 Mg Tablet.Dr CHO 05/11/25 08:59 250 mg BID EDIE Administration Doxycycline Hyclate 100 mg 05/12/24 21:00 05/15/24 09:08 Doxycycline Hyclate 100 Mg Tablet PO 100 mg BID EDIE Administration Duloxetine HCl 60 mg 05/13/24 09:00 05/15/24 09:08 Duloxetine 60 Mg Capsule. PO 05/13/25 08:59 60 mg DAILY EDIE Administration Enoxaparin Sodium 40 mg 05/09/24 13:04 05/15/24 09:09 Enoxaparin 40 Mg/0.4 Ml Syringe SUBCUT 05/09/25 13:03 40 mg DAILY@1000 EDIE Administration Glucose 0 gm 05/11/24 08:45 Dextrose 40% Gel 15 Gm Tube PO 05/11/25 08:44 PRN PRN Hypoglycemia Guaifenesin 10 ml 05/13/24 20:42 05/13/24 21:03 Guaifenesin Syrup 10 Ml Udc PO 05/13/25 20:41 10 ml Q4H PRN Administration Cough Piperacillin Sod/Tazobactam Sod 4.5 gm in 100 mls @ 25 mls/hr 05/08/24 16:00 05/15/24 09:24 Zosyn IV Infused Q8H EDIE Infusion Insulin Aspart 0 units 05/11/24 12:00 05/15/24 08:16 Insulin Aspart 300 Units/3 Ml SUBCUT 05/11/25 11:59 7 units TID.WM.HS EDIE Administration Protocol Insulin Human NPH 12 units 05/15/24 11:00 Insulin Nph Human Isophane 300 Units/3 Ml Insuln.Pen SUBCUT 05/15/25 10:59 BID EDEI Magnesium Oxide 400 mg 05/11/24 09:00 05/15/24 09:08 Magnesium Oxide 400 Mg Tablet PO 05/11/25 08:59 400 mg TID EDIE Administration Methylprednisolone Sodium Succinate 40 mg 05/12/24 14:00 05/15/24 08:15 Methylprednisolone Sod Succ/Pf 40 Mg/Ml (1ml) Vial IV-PUSH 05/12/25 13:59 40 mg Q6H EDIE Administration Metoprolol Succinate 37.5 mg 05/15/24 06:00 05/15/24 05:00 Metoprolol Succinate 50 Mg Tab.Er.24h PO 05/15/25 05:59 37.5 mg BID EDIE Administration Montelukast Sodium 10 mg 05/02/24 22:00 05/14/24 21:15 Montelukast 10 Mg Tablet PO 05/02/25 21:59 10 mg HS EDIE Administration Morphine Sulfate 1 mg 05/08/24 13:37 05/11/24 08:19 Morphine Sulfate 2 Mg/Ml Vial IV-PUSH 1 mg Q4H PRN Administration Pain Scale 7 - 10 Nystatin 400,000 unit 05/13/24 09:00 05/15/24 09:08 Nystatin Susp 500,000 Unit/5 Ml Udc PO 05/13/25 08:59 400,000 unit QID EDIE Administration Quetiapine Fumarate 25 mg 05/11/24 22:00 05/14/24 21:15 Quetiapine Fumarate 25 Mg Tablet PO 05/11/25 21:59 25 mg QHS EDIE Administration Sodium Chloride 0 ml 05/02/24 09:53 05/15/24 08:15 Sodium Chloride 0.9 % 10 Ml Syringe IV-PUSH 05/02/25 09:52 10 ml PRN PRN Administration Flush A&P - Hospitalist Assessment/Plan (1) Atrial fibrillation with rapid ventricular response: (2) Bacteremia due to group B Streptococcus: (3) Sepsis: (4) Urinary tract infection: (5) Acute hypoxic respiratory failure: (6) Pneumonia: Plan A-fib with RVR Continue Cardizem and beta-david orally. Patient is off Cardizem drip. Cardiology team does not recommend full dose anticoagulation. EF is normal Altered mental status, encephalopathy, possible seizure MRI could not be done here at [facility]. This MRI could not be scheduled before May 18. Neurology team recommended repeat CAT scan which does not show any evolution. Neurology team does not recommend any additional workup and investigation believing that his altered mental status is secondary to metabolic encephalopathy. Valproic acid level is pending. Mental status is back to baseline. Sepsis, bacteremia UTI, pneumonia, hypoxic respiratory failure Repeat blood cultures are negative. UA is positive for strep and Enterococcus Patient is on high flow oxygen. Trying to wean him down. Patient is on Zosyn and doxycycline as well as Solu-Medrol. Patient was seen by speech who did not recommend any modification of his diet due to not exhibiting any signs and symptoms of aspiration as per speech. Defer further needed diagnostic and therapeutic intervention for his respiratoryand medical management while in ICU to the pulmonary team. Hypomagnesemia Additional magnesium supplementation DVT prophylaxis Continue Lovenox and aspirin. No full dose anticoagulation by cardiology. Hyperglycemia, poor control. Continue sliding scale. Added NPH 12 units twice a day with holding parameters. Multiple other subacute, chronic medical conditions that could be addressed electively. Patient would likely require skilled care. Pre cert had been submitted I met his on 05/11/2024. I spent about 20 minutes at the bedside. I also called her on 05/13/2024 and I gave her update on his condition, status and treatment plan. I answered all of her questions. is very appreciative of the care that Juan is receiving here at [facility]. Documented By: Hilda Ruiz MD 05/15/24 105 Signed By: <Electronically signed by Hilda Ruiz MD> 05/15/241054 [facility] Work Phone: 1(479) 484-188201-05-2025 [place] [address] Hospitalist Progress Note Signed Patient: Juan Simon MR#: [id number] : 1955 Acct:[id number] Age/Sex: 68 / M Adm Date: 4 Loc: Room: [address] [place] [address] Type: ADM IN Attending Dr: Hilda Ruiz MD Copies to: ~ Date of Service: 05/15/2024 Subjective Subjective Narrative: Reported that he feels better. He continues to require high flow oxygen at 85%,25 L. No chest or abdominal Exam Physical Exam Vital Signs: Temp Pulse Resp BP Pulse Ox O2 Del Method O2 Flow Rate 37 F L 86 24 129/73 93 L High Flow 40 05/15/24 09:31 05/15/24 06:09 05/15/24 06:09 05/15/24 06:00 05/15/24 06:09 05/15/24 08:00 05/15/24 09:31 FiO2 60 05/15/24 09:31 Narrative: Patient is lying in bed in ICU. Awake and oriented. His mental status is improved. Patient continues to be tachypneic. He is requiring high flow kvienv35%. Chest exam revealed bilateral rhonchi. Heart is regular and sinus on the monitor. Abdomen soft. Lower extremities trace pitting edema. Mild to m oderate functional loss needing assist changing position and standing up. Objective Lab Results 05/14/24 09:18 05/15/24 04:40 Microbiology Results Microbiology 05/14/24 06:40 Sputum - Expectorated Gram Stain - Final Meds Allergies and Active Meds Allergies gluten Allergy (Unknown, Verified 05/02/24 09:54) Unknown Reaction Active Meds: Active Medications Generic Name Dose Route Start Last Admin Trade Name Freq PRN Reason Stop Dose Admin Acetaminophen 650 mg 05/02/24 17:28 05/09/24 22:00 Acetaminophen 325 Mg Tablet PO 05/02/25 17:27 650 mg Q6H PRN Administration Pain 1-5 or fever Albuterol 2.5 mg 05/08/24 13:37 Albuterol Neb 2.5 Mg/3 Ml Vial.Neb INHALATION 05/02/25 17:26 Q3H PRN shortness of breath or wheezin Albuterol/Ipratropium 3 ml 05/10/24 14:00 05/15/24 05:11 Ipratropium/Albuterol 0.5-3 Mg 3 Ml Ampul.Neb INHALATION 05/10/25 13:59 3 ml TID EDIE Administration Aspirin 81 mg 05/06/24 09:00 05/15/24 09:08 Aspirin 81 Mg Tablet.Dr PO 05/06/25 08:59 81 mg DAILY EDIE Administration Budesonide/Formoterol Fumarate 2 puff 05/02/24 21:00 05/15/24 05:11 Budesonide/Formoterol 160-4.5 Mcg 60 Puff/6 Gm Hfa.Aer.Ad INHALATION 05/02/25 20:59 2 puff BID EDIE Administration Dextrose 0 gm 05/11/24 08:45 Dextrose 50% In Water 25 Gm/50 Ml Syringe IV-PUSH 05/11/25 08:44 PRN PRN Hypoglycemia Diltiazem HCl 180 mg 05/12/24 09:30 05/15/24 09:08 Diltiazem Cd.24hr 180 Mg Cap.Er.24h PO 05/12/25 09:29 180 mg DAILY EDIE Administration Divalproex Sodium 250 mg 05/11/24 09:00 05/15/24 09:08 Divalproex Sodium 250 Mg Tablet. PO 05/11/25 08:59 250 mg BID EDIE Administration Doxycycline Hyclate 100 mg 05/12/24 21:00 05/15/24 09:08 Doxycycline Hyclate 100 Mg Tablet PO 100 mg BID EDIE Administration Duloxetine HCl 60 mg 05/13/24 09:00 05/15/24 09:08 Duloxetine 60 Mg Capsule. PO 05/13/25 08:59 60 mg DAILY EDIE Administration Enoxaparin Sodium 40 mg 05/09/24 13:04 05/15/24 09:09 Enoxaparin 40 Mg/0.4 Ml Syringe SUBCUT 05/09/25 13:03 40 mg DAILY@1000 EDIE Administration Glucose 0 gm 05/11/24 08:45 Dextrose 40% Gel 15 Gm Tube PO 05/11/25 08:44 PRN PRN Hypoglycemia Guaifenesin 10 ml 05/13/24 20:42 05/13/24 21:03 Guaifenesin Syrup 10 Ml Udc PO 05/13/25 20:41 10 ml Q4H PRN Administration Cough Piperacillin Sod/Tazobactam Sod 4.5 gm in 100 mls @ 25 mls/hr 05/08/24 16:00 05/15/24 09:24 Zosyn IV Infused Q8H EDIE Infusion Insulin Aspart 0 units 05/11/24 12:00 05/15/24 08:16 Insulin Aspart 300 Units/3 Ml SUBCUT 05/11/25 11:59 7 units TID.WM.HS EDIE Administration Protocol Insulin Human NPH 12 units 05/15/24 11:00 Insulin Nph Human Isophane 300 Units/3 Ml Insuln.Pen SUBCUT 05/15/25 10:59 BID EDIE Magnesium Oxide 400 mg 05/11/24 09:00 05/15/24 09:08 Magnesium Oxide 400 Mg Tablet PO 05/11/25 08:59 400 mg TID EDIE Administration Methylprednisolone Sodium Succinate 40 mg 05/12/24 14:00 05/15/24 08:15 Methylprednisolone Sod Succ/Pf 40 Mg/Ml (1ml) Vial IV-PUSH 05/12/25 13:59 40 mg Q6H EDIE Administration Metoprolol Succinate 37.5 mg 05/15/24 06:00 05/15/24 05:00 Metoprolol Succinate 50 Mg Tab.Er.24h PO 05/15/25 05:59 37.5 mg BID EDIE Administration Montelukast Sodium 10 mg 05/02/24 22:00 05/14/24 21:15 Montelukast 10 Mg Tablet PO 05/02/25 21:59 10 mg HS EDIE Administration Morphine Sulfate 1 mg 05/08/24 13:37 05/11/24 08:19 Morphine Sulfate 2 Mg/Ml Vial IV-PUSH 1 mg Q4H PRN Administration Pain Scale 7 - 10 Nystatin 400,000 unit 05/13/24 09:00 05/15/24 09:08 Nystatin Susp 500,000 Unit/5 Ml Udc PO 05/13/25 08:59 400,000 unit QID EDIE Administration Quetiapine Fumarate 25 mg 05/11/24 22:00 05/14/24 21:15 Quetiapine Fumarate 25 Mg Tablet PO 05/11/25 21:59 25 mg QHS EDIE Administration Sodium Chloride 0 ml 05/02/24 09:53 05/15/24 08:15 Sodium Chloride 0.9 % 10 Ml Syringe IV-PUSH 05/02/25 09:52 10 ml PRN PRN Administration Flush A&P - Hospitalist Assessment/Plan (1) Atrial fibrillation with rapid ventricular response: (2) Bacteremia due to group B Streptococcus: (3) Sepsis: (4) Urinary tract infection: (5) Acute hypoxic respiratory failure: (6) Pneumonia: Plan A-fib with RVR Continue Cardizem and beta-david orally. Patient is off Cardizem drip. Cardiology team does not recommend full dose anticoagulation. EF is normal Altered mental status, encephalopathy, possible seizure MRI could not be done here at [facility]. This MRI could not be scheduled before May 18. Neurology team recommended repeat CAT scan which does not show any evolution. Neurology team does not recommend any additional workup and investigation believing that his altered mental status is secondary to metabolic encephalopathy. Valproic acid level is pending. Mental status is back to baseline. Sepsis, bacteremia UTI, pneumonia, hypoxic respiratory failure Repeat blood cultures are negative. UA is positive for strep and Enterococcus Patient is on high flow oxygen. Trying to wean him down. Patient is on Zosyn and doxycycline as well as Solu-Medrol. Patient was seen by speech who did not recommend any modification of his diet due to not exhibitingany signs and symptoms of aspiration as per speech. Defer further needed diagnostic and therapeutic intervention for his respiratoryand medical management while in ICU to the pulmonary team. Hypomagnesemia Additional magnesium supplementation DVT prophylaxis Continue Lovenox and aspirin. No full dose anticoagulation by cardiology. Hyperglycemia, poor control. Continue sliding scale. Added NPH 12 units twice a day with holding parameters. Multiple other subacute, chronic medical conditions that could be addressed electively. Patient would likely require skilled care. Pre cert had been submitted I met his on 05/11/2024. I spent about 20 minutes at the bedside. I also called her on 05/13/2024 and I gave her update on his condition, status and treatment plan. I answered all of her questions. is very appreciative of the care that Juan is receiving here at [facility]. Documented By: Hilda Ruiz MD 05/15/241051 Signed By: 05/15/[address] [facility]01-04-2025 Progress note Author Miladis Rodriguez [facility] Note Date/Time May 14, 2024 3: 16pm [facility] [address] [place] [address] Pulmonology Progress Note Signed Patient: Juan Simon MR#: [id number] : 1955 Acct:[id number] Age/Sex: 68 / M Adm Date: 4 Loc: Room: [address] [place] [address] Type: ADM IN Attending Dr: Hilda Ruiz MD Copies to: ~ Date of Service: 05/14/2024 Subjective Subjective Narrative: - seems to be better this morning however he did have an episode of hemoptysis with bright red blood noted - wore BIPAP all night did well - less confused this morning sitting in chair eating his breakfast Exam Physical Exam Vital Signs: Temp Pulse Resp BP Pulse Ox O2 Del Method O2 Flow Rate 97.8 F 82 26 H 110/71 94 L High Flow 35 05/14/24 12:00 05/14/24 14:00 05/14/24 14:00 05/14/24 14:00 05/14/24 14:00 05/14/24 14:00 05/14/24 13:33 FiO2 70 05/14/24 14:00 Const Other: Gen: Chronically ill appearing not in respiratory distress HENT: EOMI PERRL no thrush Neck: supple no JVD CVS: RRR -m/r/g Lungs: scattered rhonchi and wheezing bilaterally Abd: soft non tender Ext: no LE edema good cap refill Neuro: AOx3 non focal motor and sensory exam Psych: normal affect Objective Intake and Output I&O - Last 24 Hours: Intake & Output 05/13/24 05/14/24 05/14/24 23:59 07:59 15:59 Intake Total 100 / 200 100 / 200 100 / 200 Output Total 400 / 1250 350 / 350 Balance -300 / -1050 -250 / -150 100 / -150 Weight 95 kg Labs 05/14/24 09:18 05/14/24 09:18 Microbiology Micro: Microbiology 3 05/14/24 06:40 Gram Stain - Final Sputum - Expectorated Assessment/Plan Assessment/Plan (1) Sepsis: (2) Atrial fibrillation with rapid ventricular response: (3) Urinary tract infection: (4) Bacteremia due to Streptococcus: Plan - bout of hemoptysis this AM, which he is only on baby ASA and DVT prophylaxis Lovenox - cannot r/o alveolar hemorrhage, however already on steroids, will observe if this gets worse; could be airway trauma from coughing - was at least able to sent sputum sample for culture - continue BIPAP qhs and hi flow during the day, wean as tolerated - continue nebs and pulmonary toilet - will follow with you Critical Care Time: 30 Documented By: Miladis Rodirguez MD [id number] Signed By: <Electronically signed by Miladis Rodriguez MD> 05/14/24 [facility] Work Phone: [phone]) 627-756901-04-2025 Progress note Author Lavern Dahl [facility] Note Date/Time May 14, 2024 1: 52pm [facility] [address] [place] [address] Neurology Progress Note Signed Patient: Juan Simon MR#: [id number] : 1955 Acct:[id number] Age/Sex: 68 / M Adm Date: 4 Loc: Room: [address] [place] [address] Type: ADM IN Attending Dr: Hilda Ruiz MD Copies to: ~ Date of Service: 05/14/2024 Subjective Subjective Narrative: Patient has not had any further events through the night. thinks he is a little bit better today. He does recognize me when I come in the room. He is still confused but reportedly better than he has been. He is up sitting in the chair. He denies any new unresponsive or staring off events. He denies any newheadaches chest pain shortness of breath nausea or vomiting. Does state that heis feeling a little bit better. Previous event: Medical emergency team response was called overhead shortly before 3 AM for episode described as staring off and unresponsiveness to sternal rub described overall rigidity/tremors of the shoulder area which the patient came out of quite quickly. At the bedside he is agitated, severely difficult to redirect and subsequently vital signs difficult to obtain. Systolic blood pressure is notably 101 at this time. He has a nonrebreather mask in place and unreliable pulse oximetry. Stat labs were ordered including prolactin, lactic acid and CK given the suspected seizure-like events. Reviewing the patient's daytime medical management he has been exhibiting ongoing respiratory failure, bacteremia intensified steroids. He has had new onset A-fib as well. Patient's agitation will be treated with Haldol 2 mg IV with repeat dosing based on response. Givenhis fall and now suspected epileptic activity he may have slowly suffered brain bleed with earlier fall and thus necessitates a repeat head CT. Not an order has been placed for this to be done after his agitation is controlled and accessfeasible. Obtain an a.m. chest x-ray for his ongoing respiratory failure. An ABG should be obtained as well although based on state of agitation doubt he is hypercarbic. EKG routinely unable. CAT scan of the brain was repeated on 05/13/2024 and did not show any acute intracranial abnormalities. It was stable and showed a chronic right mastoid effusion. Exam Physical Exam Vital Signs: Temp Pulse Resp BP Pulse Ox O2 Del Method O2 Flow Rate 37 F L 88 26 H 116/66 96 High Flow 35 05/14/24 08:00 05/14/24 10:00 05/14/24 10:00 05/14/24 10:00 05/14/24 10:00 05/14/24 10:00 05/14/24 08:00 FiO2 70 05/14/24 10:00 Neuro Other: Patient is sitting in the bed. He is confused and has trouble with orientation questions but he is able to hold on a conversation. He does recognize me as I see him in the office. He knows he is at the hospital and eventually can get that it is [facility] but he needs multiple-choice. He states his June able to eventually get it is May. He does not know the year. speech was clear and fluent Cranial nerves II through XII pupils are equal reactive to light and accommodation bilaterally extraocular muscles were intact bilaterally visual benton are full there is no nystagmus there is no facial asymmetry tongue is midline good range of motion palate rises symmetrically uvula is midline there are no facial sensory deficit he has good bilateral shoulder shrug Pronator drift is negative Coordination shows no signs of dysmetria with good rapid alternating movements [id number] Tone is physiologic Motor examination is 5- out of 5/4 Language skills are intact Objective Vital Signs Vital Signs: Vital Signs - 24 hr 05/13/24 12:00 05/13/24 12:00 05/13/24 13:00 Temperature 98.5 F Pulse Rate 149 H 93 Respiratory Rate 20 26 H Blood Pressure 107/68 111/61 02 Sat by Pulse Oximetry 95 95 Oxygen Delivery Method High Flow High Flow High Flow Oxygen Flow Rate 35 35 35 Fraction of Inspired Oxygen 75 75 75 05/13/24 13:49 05/13/24 13:49 05/13/24 14:00 Temperature Pulse Rate 93 93 93 Respiratory Rate 22 22 25 H Blood Pressure 121/65 02 Sat by Pulse Oximetry 97 96 Oxygen Delivery Method High Flow Oxygen Flow Rate 35 35 Fraction of Inspired Oxygen 65 65 05/13/24 15:00 05/13/24 16:00 05/13/24 16:00 Temperature Pulse Rate 91 Respiratory Rate 26 H Blood Pressure 123/61 02 Sat by Pulse Oximetry 93 L Oxygen Delivery Method High Flow High Flow High Flow Oxygen Flow Rate 35 35 Fraction of Inspired Oxygen 65 75 05/13/24 16:41 05/13/24 17:00 05/13/24 18:00 Temperature 97.5 F L Pulse Rate 88 90 96 Respiratory Rate 24 28 H 28 H Blood Pressure 130/82 111/66 02 Sat by Pulse Oximetry 94 L 95 95 Oxygen Delivery Method High Flow High Flow Oxygen Flow Rate 35 35 35 Fraction of Inspired Oxygen 65 65 65 05/13/24 18:42 05/13/24 19:00 05/13/24 20:00 Temperature Pulse Rate 93 95 96 Respiratory Rate 20 25 H 25 H Blood Pressure 133/70 120/75 02 Sat by Pulse Oximetry 94 L 97 Oxygen Delivery Method High Flow High Flow Oxygen Flow Rate 35 35 Fraction of Inspired Oxygen 65 65 05/13/24 21:00 05/13/24 21:16 05/13/24 22:00 Temperature Pulse Rate 103 H 104 H 93 Respiratory Rate 28 H 28 H 21 Blood Pressure 132/79 141/75 H 02 Sat by Pulse Oximetry 94 L 94 L 94 L Oxygen Delivery Method High Flow BiPAP Oxygen Flow Rate 35 35 Fraction of Inspired Oxygen 65 65 65 05/13/24 22:23 05/13/24 23:00 05/14/24 00:00 Temperature Pulse Rate 94 81 Respiratory Rate 20 21 Blood Pressure 116/68 02 Sat by Pulse Oximetry 92 L 93 L Oxygen Delivery Method BiPAP BiPAP Oxygen Flow Rate Fraction of Inspired Oxygen 50 65 05/14/24 00:00 05/14/24 00:00 05/14/24 00:05 Temperature Pulse Rate 87 94 Respiratory Rate 24 20 Blood Pressure 136/76 02 Sat by Pulse Oximetry 95 98 Oxygen Delivery Method High Flow BiPAP Oxygen Flow Rate Fraction of Inspired Oxygen 60 65 05/14/24 01:00 05/14/24 02:00 05/14/24 03:00 Temperature Pulse Rate 91 87 91 Respiratory Rate 22 20 20 Blood Pressure 126/69 119/64 134/80 02 Sat by Pulse Oximetry 94 L 94 L 94 L Oxygen Delivery Method BiPAP BiPAP BiPAP Oxygen Flow Rate Fraction of Inspired Oxygen 70 60 70 05/14/24 03:55 05/14/24 04:00 05/14/24 04:00 Temperature 97.5 F L Pulse Rate 91 88 Respiratory Rate 20 18 Blood Pressure 131/69 02 Sat by Pulse Oximetry 90 L 95 Oxygen Delivery Method BiPAP BiPAP Oxygen Flow Rate Fraction of Inspired Oxygen 100 100 100 05/14/24 05:00 05/14/24 06:00 05/14/24 06:11 Temperature Pulse Rate 99 99 91 Respiratory Rate 22 22 24 Blood Pressure 128/70 131/70 02 Sat by Pulse Oximetry 96 92 L 94 L Oxygen Delivery Method BiPAP High Flow Oxygen Flow Rate 35 Fraction of Inspired Oxygen 100 80 70 05/14/24 07:00 05/14/24 08:00 05/14/24 08:00 Temperature 37 F L Pulse Rate 93 96 Respiratory Rate 22 22 Blood Pressure 126/76 02 Sat by Pulse Oximetry 95 96 Oxygen Delivery Method High Flow High Flow Oxygen Flow Rate 35 35 Fraction of Inspired Oxygen 80 80 70 05/14/24 08:00 05/14/24 08:00 05/14/24 09:00 Temperature Pulse Rate 92 97 Respiratory Rate 26 H 26 H Blood Pressure 134/75 116/68 02 Sat by Pulse Oximetry 92 L 96 Oxygen Delivery Method High Flow High Flow High Flow Oxygen Flow Rate Fraction of Inspired Oxygen 80 70 05/14/24 09:10 05/14/24 10:00 Temperature Pulse Rate 88 Respiratory Rate 26 H Blood Pressure 116/66 02 Sat by Pulse Oximetry 97 96 Oxygen Delivery Method High Flow Oxygen Flow Rate Fraction of Inspired Oxygen 70 70 Labs 05/14/24 09:18 05/14/24 09:18 Lab Results: Valproic Acid 32.3 ug/mL (50.0-100.0) L 05/13/24 03:48 Therapy Recommendations Therapy Recommendations: OT Recommendations OT Recommended Discharge Nursing Home Facility,Inpatient Rehab Unit Location OT Recommended Services at Physical Therapy,Occupational Therapy Discharge PT Recommendations PT Recommended Discharge Nursing Home Facility Location PT Recommended Services at Physical Therapy,Occupational Therapy Discharge ST Recommendations Liquid Consistency Thin Liquids Recommendation Solid Consistency Regular Solids Recommendations Meat Consistency Whole Meats Recommendations Medication Administration Whole Pills,Give Pills with Water Dysphagia Swallow Precautions/ Sitting Upright (90 deg) Strategies Assessment/Plan (1) Altered mental status: Qualifiers: Altered mental status type: delirium Qualified Code(s): R41.0 - Disorientation, unspecified Plan DATA REVIEW: -CTA of the chest:No acute pulmonary embolus. patchy right upper lung consolidation. Mild patchy left perihilar consolidation. Small layering pleural effusions. -Head CT May 02, 2024 nonacute, shows chronic right mastoiditis and possible otitis -MRI brain September 22, 2023 without contrast looks unremarkable aside from some chronic age-related neurodegenerative changes -Blood cultures May 02, 2024 2 of 2 group B strep, urine culture with 20,000 colonies Enterococcus faecalis and strep group B -Updated MRI of the brain: Unable to be completed -Repeat CT scan of the brain: No evidence of intracranial abnormality or acute process. Repeat CT scan of the brain on 05/13/2024: Stable without evidence of intracranialbleed or other acute process. -Routine EEG on 05/13/2024: Moderate to severe slowing. No evidence of epileptiform abnormalities. No seizures recorded. No clinical events of seizure identified. ASSESSMENT: 68-year-old male with acute confusion with a metabolic encephalopathy secondary to bacteremia, UTI and pneumonia. He may have some underlying memory issue which we will need to assess further in the outpatient setting. He is fortunately improving. Patient did have an event of unresponsiveness but no seizure-like activity. He is doing better now and has not had any further episodes. He is on Depakote for mood not for seizure disorder. This the reasonfor this is unclear however he is currently doing better so we will follow. Patient does have a urinalysis which is positive for strep and Enterococcus and continued on Zosyn. He also has pneumonia and impressive infiltration on chest x-ray and hypoxia. Blood cultures at this time are negative. Depakote level is 32.3 therefore if he has further events we could load more Depakote however at this time I would hold is not entirely convincing that this unresponsive event was a seizure Patient still has a leukocytosis therefore I suspect much of this is more metabolic in nature. Plan Continue supportive care as he is improving Monitor for new unresponsive events or any seizure-like activity Depakote level is 32.2 therefore can load him and go higher if needed but will hold at this time since he is showing some improvement Reportedly they did get a sputum sample therefore will assess for culture and sensitivity At this time he is improving so we will follow and make changes as needed This was all discussed with the patient and all questions were answered they agreed with the treatment plan Documented By: Lavern Dahl DO 05/14/24 1117 Signed By: <Electronically signed by DO Lavern Dahl> 05/14/24 1353 [facility] Work Phone: [phone]) 551-322901-04-20[place] [address] Pulmonology Progress Note Signed Patient: Juan Simon MR#: [id number] : 1955 Acct:[id number] Age/Sex: 68 / M Adm Date: 4 Loc: Room: [address] [place] [address] Type: ADM IN Attending Dr: Hilda Ruiz MD Copies to: ~ Date of Service: 05/14/2024 Subjective Subjective Narrative: - seems to be better this morning however he did have an episode of hemoptysis with bright red blood noted - wore BIPAP all night did well - less confused this morning sitting in chair eating his breakfast Exam Physical Exam Vital Signs: Temp Pulse Resp BP Pulse Ox O2 Del Method O2 Flow Rate 97.8 F 82 26 H 110/71 94 L High Flow 35 05/14/24 12:00 05/14/24 14:00 05/14/24 14:00 05/14/24 14:00 05/14/24 14:00 05/14/24 14:00 05/14/24 13:33 FiO2 70 05/14/24 14:00 Const Other: Gen: Chronically ill appearing not in respiratory distress HENT: EOMI PERRL no thrush Neck: supple no JVD CVS: RRR -m/r/g Lungs: scattered rhonchi and wheezing bilaterally Abd: soft non tender Ext: no LE edema good cap refill Neuro: AOx3 non focal motor and sensory exam Psych: normal affect Objective Intake and Output I&O - Last 24 Hours: Intake & Output 05/13/24 05/14/24 05/14/24 23:59 07:59 15:59 Intake Total 100 / 200 100 / 200 100 / 200 Output Total 400 / 1250 350 / 350 Balance -300 / -1050 -250 / -150 100 / -150 Weight 95 kg Labs 05/14/24 09:18 05/14/24 09:18 Microbiology Micro: Microbiology 3 05/14/24 06:40 Gram Stain - Final Sputum - Expectorated Assessment/Plan Assessment/Plan (1) Sepsis: (2) Atrial fibrillation with rapid ventricular response: (3) Urinary tract infection: (4) Bacteremia due to Streptococcus: Plan - bout of hemoptysis this AM, which he is only on baby ASA and DVT prophylaxis Lovenox - cannot r/o alveolar hemorrhage, however already on steroids, will observe if this gets worse; could be airway trauma from coughing - was at least able to sent sputum sample for culture - continue BIPAP qhs and hi flow during the day, wean as tolerated - continue nebs and pulmonary toilet - will follow with you Critical Care Time: 30 Documented By: Miladis Rodriguez MD [id number] Signed By: 05/14/[address] [facility]01-04-2025 Progress note Author Hilda Ruiz [facility] Note Date/Time May 14, 2024 12 :39pm [facility] [address] [place] [address] Hospitalist Progress Note Signed Patient: Juan Simon MR#: [id number] : 1955 Acct:[id number] Age/Sex: 68 / M Adm Date: 4 Loc: Room: [address] [place] [address] Type: ADM IN Attending Dr: Hilda Ruiz MD Copies to: ~ Date of Service: 05/14/2024 Subjective Subjective Narrative: Uneventful night. Patient feels better today. He continues to require 80% of FiO2 through high flow oxygen. 35 L. Exam Physical Exam Vital Signs: Temp Pulse Resp BP Pulse Ox O2 Del Method O2 Flow Rate 37 F L 91 26 H 127/76 94 L High Flow 35 05/14/24 08:00 05/14/24 12:00 05/14/24 12:00 05/14/24 12:00 05/14/24 12:00 05/14/24 12:00 05/14/24 09:09 FiO2 70 05/14/24 12:00 Narrative: Patient is lying in bed in ICU. Awake and oriented. His mental status is improved. Patient continues to be tachypneic. He is requiring high flow [id number]%. Chest exam revealed bilateral rhonchi. Heart is regular and sinus on the monitor. Abdomen soft. Lower extremities trace pitting edema. Mild to moderate functional loss needing assist changing position and standing up. Objective Lab Results 05/14/24 09:18 05/14/24 09:18 Meds Allergies and Active Meds Allergies gluten Allergy (Unknown, Verified 05/02/24 09:54) Unknown Reaction Active Meds: Active Medications Generic Name Dose Route Start Last Admin Trade Name Freq PRN Reason Stop Dose Admin Acetaminophen 650 mg 05/02/24 17:28 05/09/24 22:00 Acetaminophen 325 Mg Tablet PO 05/02/25 17:27 650 mg Q6H PRN Administration Pain 1-5 or fever Albuterol 2.5 mg 05/08/24 13:37 Albuterol Neb 2.5 Mg/3 Ml Vial.Neb INHALATION 05/02/25 17:26 Q3H PRN shortness of breath or wheezin Albuterol/Ipratropium 3 ml 05/10/24 14:00 05/14/24 09:11 Ipratropium/Albuterol 0.5-3 Mg 3 Ml Ampul.Neb INHALATION 05/10/25 13:59 3 ml TID EDIE Administration Aspirin 81 mg 05/06/24 09:00 05/14/24 08:26 Aspirin 81 Mg Tablet. PO 05/06/25 08:59 81 mg DAILY EDIE Administration Budesonide/Formoterol Fumarate 2 puff 05/02/24 21:00 05/14/24 09:13 Budesonide/Formoterol 160-4.5 Mcg 60 Puff/6 Gm Hfa.Aer.Ad INHALATION 05/02/25 20:59 2 puff BID EDIE Administration Dextrose 0 gm 05/11/24 08:45 Dextrose 50% In Water 25 Gm/50 Ml Syringe IV-PUSH 05/11/25 08:44 PRN PRN Hypoglycemia Diltiazem HCl 180 mg 05/12/24 09:30 05/14/24 08:26 Diltiazem Cd.24hr 180 Mg Cap.Er.24h PO 05/12/25 09:29 180 mg DAILY EDIE Administration Divalproex Sodium 250 mg 05/11/24 09:00 05/14/24 08:26 Divalproex Sodium 250 Mg Tablet. PO 05/11/25 08:59 250 mg BID EDIE Administration Doxycycline Hyclate 100 mg 05/12/24 21:00 05/14/24 08:29 Doxycycline Hyclate 100 Mg Tablet PO 100 mg BID EDIE Administration Duloxetine HCl 60 mg 05/13/24 09:00 05/14/24 08:29 Duloxetine 60 Mg Capsule. PO 05/13/25 08:59 60 mg DAILY EDIE Administration Enoxaparin Sodium 40 mg 05/09/24 13:04 05/14/24 09:32 Enoxaparin 40 Mg/0.4 Ml Syringe SUBCUT 05/09/25 13:03 40 mg DAILY@1000 EDIE Administration Glucose 0 gm 05/11/24 08:45 Dextrose 40% Gel 15 Gm Tube PO 05/11/25 08:44 PRN PRN Hypoglycemia Guaifenesin 10 ml 05/13/24 20:42 05/13/24 21:03 Guaifenesin Syrup 10 Ml Udc PO 05/13/25 20:41 10 ml Q4H PRN Administration Cough Piperacillin Sod/Tazobactam Sod 4.5 gm in 100 mls @ 25 mls/hr 05/08/24 16:00 05/14/24 05:27 Zosyn IV 25 mls/hr Q8H EDIE Administration Insulin Aspart 0 units 05/11/24 12:00 05/14/24 07:45 Insulin Aspart 300 Units/3 Ml SUBCUT 05/11/25 11:59 Not Given TID.WM.HS EDIE Protocol Magnesium Oxide 400 mg 05/11/24 09:00 05/14/24 08:25 Magnesium Oxide 400 Mg Tablet PO 05/11/25 08:59 400 mg TID EDIE Administration Methylprednisolone Sodium Succinate 40 mg 05/12/24 14:00 05/14/24 07:46 Methylprednisolone Sod Succ/Pf 40 Mg/Ml (1ml) Vial IV-PUSH 05/12/25 13:59 40 mg Q6H EDIE Administration Metoprolol Succinate 50 mg 05/13/24 09:00 05/14/24 08:25 Metoprolol Succinate 50 Mg Tab.Er.24h PO 05/13/25 08:59 50 mg DAILY EDIE Administration Montelukast Sodium 10 mg 05/02/24 22:00 05/13/24 21:08 Montelukast 10 Mg Tablet PO 05/02/25 21:59 10 mg HS EDIE Administration Morphine Sulfate 1 mg 05/08/24 13:37 05/11/24 08:19 Morphine Sulfate 2 Mg/Ml Vial IV-PUSH 1 mg Q4H PRN Administration Pain Scale 7 - 10 Nystatin 400,000 unit 05/13/24 09:00 05/14/24 08:26 Nystatin Susp 500,000 Unit/5 Ml Udc PO 05/13/25 08:59 400,000 unit QID EDIE Administration Quetiapine Fumarate 25 mg 05/11/24 22:00 05/13/24 21:08 Quetiapine Fumarate 25 Mg Tablet PO 05/11/25 21:59 25 mg QHS EDIE Administration Sodium Chloride 0 ml 05/02/24 09:53 05/14/24 04:45 Sodium Chloride 0.9 % 10 Ml Syringe IV-PUSH 05/02/25 09:52 10 ml PRN PRN Administration Flush A&P - Hospitalist Assessment/Plan (1) Atrial fibrillation with rapid ventricular response: (2) Bacteremia due to group B Streptococcus: (3) Sepsis: (4) Urinary tract infection: (5) Acute hypoxic respiratory failure: (6) Pneumonia: Plan A-fib with RVR Patient converted back to sinus rhythm. Patient is having increased wheezing this morning which could be related to his pneumonia and or side effect of beta-david Reducing the dose of beta-david due to severe bronchospasm. Increase Cardizem. Changed from 30 mg 4 times daily to CD1 80 mg daily. Patient is off Cardizem drip. Cardiology team does not recommend full dose anticoagulation. EF is normal Altered mental status, encephalopathy, possible seizure MRI could not be done here at [facility]. This MRI could not be scheduled before May 18. Neurology team recommended repeat CAT scan which does not show any evolution. Neurology team does not recommend any additional workup and investigation believing that his altered mental status is secondary to metabolic encephalopathy. Valproic acid level is pending. Sepsis, bacteremia UTI, pneumonia, hypoxic respiratory failure Repeat blood cultures are negative. UA is positive for strep and Enterococcus Continue Zosyn. Patient is on high flow oxygen. Trying to wean him down. Quite impressive infiltration on the chest CT. Worsening respiratory status this morning. Persistent hypoxemia. Patient is onZosyn and vancomycin. I added Solu-Medrol due to severe wheezing and bronchospasm this morning. Continue albuterol and Atrovent. Patient was seen by speech who did not recommend any modification of his diet due to not exhibiting any signs and symptoms of aspiration as per speech. Defer further needed diagnostic and therapeutic intervention for his respiratoryand medical management while in ICU to the pulmonary team. Hypomagnesemia Additional magnesium supplementation DVT prophylaxis Continue Lovenox and aspirin. No full dose anticoagulation by cardiology. Multiple other subacute, chronic medical conditions that could be addressed electively. Patient would likely require skilled care. Pre cert had been submitted I met his on 05/11/2024. I spent about 20 minutes at the bedside. I also called her on 05/13/2024 and I gave her update on his condition, status and treatment plan. I answered all of her questions. is very appreciative of the care that Juan is receiving here at [facility]. Documented By: Hilda Ruiz MD 05/14/24 1236 Signed By: <Electronically signed by Hilda Ruiz MD> 05/14/24 1239 [facility] Work Phone: [phone] 349-304701-04-[address] [address] Neurology Progress Note Signed Patient: Juan Simon MR#: [id number] : 1955 Acct:[id number] Age/Sex: 68 / M Adm Date: 4 Loc: Room: 0Y2496-0 Type: ADM IN Attending Dr: Hilda Ruiz MD Copies to: ~ Date of Service: 05/14/2024 Subjective Subjective Narrative: Patient has not had any further events through the night. thinks he is a little bit better today. He does recognize me when I come in the room. He is still confused but reportedly better than hehas been. He is up sitting in the chair. He denies any new unresponsive or staring off events. He denies any newheadaches chest pain shortness of breath nausea or vomiting. Does state that heis feeling a little bit better. Previous event: Medical emergency team response was called overhead shortly before 3 AM for episode described as staring off and unresponsiveness to sternal rub described overall rigidity/tremors of the shoulder area which the patient came out of quite quickly. At the bedside he is agitated, severely difficult to redirect and subsequently vital signs difficult to obtain. Systolic blood pressure is notably 101 atthis time. He has a nonrebreather mask in place and unreliable pulse oximetry. Stat labs were ordered including prolactin, lactic acid and CK given the suspected seizure-like events. Reviewing the patient's daytime medical management he has been exhibiting ongoing respiratory failure, bacteremia intensified steroids. He has had new onset A-fib as well. Patient's agitation will be treated with Haldol 2 mg IV with repeat dosing based on response. Givenhis fall and now suspected epileptic activity he may have slowly suffered brain bleed with earlier fall and thus necessitates a repeat head CT. Not an order has been placed for this to be done after his agitation is controlled and accessfeasible. Obtain an a.m. chest x-ray for his ongoing respiratory failure. An ABG shouldbe obtained as well although based on state of agitation doubt he is hypercarbic. EKG routinely unable. CAT scan of the brain was repeated on 05/13/2024 and did not show any acute intracranial abnormalities. It was stable and showed a chronic right mastoid effusion. Exam Physical Exam Vital Signs: Temp Pulse Resp BP Pulse Ox O2 Del Method O2 Flow Rate 37 F L 88 26 H 116/66 96 High Flow 35 05/14/24 08:00 05/14/24 10:00 05/14/24 10:00 05/14/24 10:00 05/14/24 10:00 05/14/24 10:00 05/14/24 08:00 FiO2 70 05/14/24 10:00 Neuro Other: Patient is sitting in the bed. He is confused and has trouble with orientation questions but he is able to hold on a conversation. He does recognize me as I see him in the office. He knows he is at the hospital and eventually can get that it is [facility] but he needs multiple- choice. He states his June able to eventually get it is May. He does not know theyear. speech was clear and fluent Cranial nerves II through XII pupils are equal reactive to light and accommodation bilaterally extraocular muscles were intact bilaterally visual benton are full there is no nystagmus there is no facial asymmetry tongue is midline good range of motion palate rises symmetrically uvula is midline there are no facial sensory deficit he has good bilateral shoulder shrug Pronator drift is negative Coordination shows no signs of dysmetria with good rapid alternating movements [id number] Tone is physiologic Motor examination is 5- out of 5/4 Language skills are intact Objective Vital Signs Vital Signs: Vital Signs - 24 hr 05/13/24 12:00 05/13/24 12:00 05/13/24 13:00 Temperature 98.5 F Pulse Rate 149 H 93 Respiratory Rate 20 26 H Blood Pressure 107/68 111/61 02 Sat by Pulse Oximetry 95 95 Oxygen Delivery Method High Flow High Flow High Flow Oxygen Flow Rate 35 35 35 Fraction of Inspired Oxygen 75 75 75 05/13/24 13:49 05/13/24 13:49 05/13/24 14:00 Temperature Pulse Rate 93 93 93 Respiratory Rate 22 22 25 H Blood Pressure 121/65 02 Sat by Pulse Oximetry 97 96 Oxygen Delivery Method High Flow Oxygen Flow Rate 35 35 Fraction of Inspired Oxygen 65 65 01/03/25 15:00 05/13/24 16:00 05/13/24 16:00 Temperature Pulse Rate 91 Respiratory Rate 26 H Blood Pressure 123/61 02 Sat by Pulse Oximetry 93 L Oxygen Delivery Method High Flow High Flow High Flow Oxygen Flow Rate 35 35 Fraction of Inspired Oxygen 65 75 05/13/24 16:41 05/13/24 17:00 05/13/24 18:00 Temperature 97.5 F L Pulse Rate 88 90 96 Respiratory Rate 24 28 H 28 H Blood Pressure 130/82 111/66 02 Sat by Pulse Oximetry 94 L 95 95 Oxygen Delivery Method High Flow High Flow Oxygen Flow Rate 35 35 35 Fraction of Inspired Oxygen 65 65 65 05/13/24 18:42 05/13/24 19:00 05/13/24 20:00 Temperature Pulse Rate 93 95 96 Respiratory Rate 20 25 H 25 H Blood Pressure 133/70 120/75 02 Sat by Pulse Oximetry 94 L 97 Oxygen Delivery Method High Flow High Flow Oxygen Flow Rate 35 35 Fraction of Inspired Oxygen 65 65 05/13/24 21:00 05/13/24 21:16 05/13/24 22:00 Temperature Pulse Rate 103 H 104 H 93 Respiratory Rate 28 H 28 H 21 Blood Pressure 132/79 141/75 H 02 Sat by Pulse Oximetry 94 L 94 L 94 L Oxygen Delivery Method High Flow BiPAP Oxygen Flow Rate 35 35 Fraction of Inspired Oxygen 65 65 65 05/13/24 22:23 05/13/24 23:00 05/14/24 00:00 Temperature Pulse Rate 94 81 Respiratory Rate 20 21 Blood Pressure 116/68 02 Sat by Pulse Oximetry 92 L 93 L Oxygen Delivery Method BiPAP BiPAP Oxygen Flow Rate Fraction of Inspired Oxygen 50 65 05/14/24 00:00 05/14/24 00:00 05/14/24 00:05 Temperature Pulse Rate 87 94 Respiratory Rate 24 20 Blood Pressure 136/76 02 Sat by Pulse Oximetry 95 98 Oxygen Delivery Method High Flow BiPAP Oxygen Flow Rate Fraction of Inspired Oxygen 60 65 05/14/24 01:00 05/14/24 02:00 05/14/24 03:00 Temperature Pulse Rate 91 87 91 Respiratory Rate 22 20 20 Blood Pressure 126/69 119/64 134/80 02 Sat by Pulse Oximetry 94 L 94 L 94 L Oxygen Delivery Method BiPAP BiPAP BiPAP Oxygen Flow Rate Fraction of Inspired Oxygen 70 60 70 05/14/24 03:55 05/14/24 04:00 05/14/24 04:00 Temperature 97.5 F L Pulse Rate 91 88 Respiratory Rate 20 18 Blood Pressure 131/69 02 Sat by Pulse Oximetry 90 L 95 Oxygen Delivery Method BiPAP BiPAP Oxygen Flow Rate Fraction of Inspired Oxygen 100 100 100 05/14/24 05:00 05/14/24 06:00 05/14/24 06:11 Temperature Pulse Rate 99 99 91 Respiratory Rate 22 22 24 Blood Pressure 128/70 131/70 02 Sat by Pulse Oximetry 96 92 L 94 L Oxygen Delivery Method BiPAP High Flow Oxygen Flow Rate 35 Fraction of Inspired Oxygen 100 80 70 05/14/24 07:00 05/14/24 08:00 05/14/24 08:00 Temperature 37 F L Pulse Rate 93 96 Respiratory Rate 22 22 Blood Pressure 126/76 02 Sat by Pulse Oximetry 95 96 Oxygen Delivery Method High Flow High Flow Oxygen Flow Rate 35 35 Fraction of Inspired Oxygen 80 80 70 05/14/24 08:00 05/14/24 08:00 05/14/24 09:00 Temperature Pulse Rate 92 97 Respiratory Rate 26 H 26 H Blood Pressure 134/75 116/68 02 Sat by Pulse Oximetry 92 L 96 Oxygen Delivery Method High Flow High Flow High Flow Oxygen Flow Rate Fraction of Inspired Oxygen 80 70 05/14/24 09:10 05/14/24 10:00 Temperature Pulse Rate 88 Respiratory Rate 26 H Blood Pressure 116/66 02 Sat by Pulse Oximetry 97 96 Oxygen Delivery Method High Flow Oxygen Flow Rate Fraction of Inspired Oxygen 70 70 Labs 05/14/24 09:18 05/14/24 09:18 Lab Results: Valproic Acid 32.3 ug/mL (50.0-100.0) L 05/13/24 03:48 Therapy Recommendations Therapy Recommendations: OT Recommendations OT Recommended Discharge Nursing Home Facility,Inpatient Rehab Unit Location OT Recommended Services at Physical Therapy,Occupational Therapy Discharge PT Recommendations PT Recommended Discharge Nursing Home Facility Location PT Recommended Services at Physical Therapy,Occupational Therapy Discharge ST Recommendations Liquid Consistency Thin Liquids Recommendation Solid Consistency Regular Solids Recommendations Meat Consistency Whole Meats Recommendations Medication Administration Whole Pills,Give Pills with Water Dysphagia Swallow Precautions/ Sitting Upright (90 deg) Strategies Assessment/Plan (1) Altered mental status: Qualifiers: Altered mental status type: delirium Qualified Code(s): R41.0 - Disorientation, unspecified Plan DATA REVIEW: -CTA of the chest:No acute pulmonary embolus. patchy right upper lung consolidation. Mild patchy left perihilar consolidation. Small layering pleural effusions. -Head CT May 02, 2024 nonacute, shows chronic right mastoiditis and possible otitis -MRI brain September 22, 2023 without contrast looks unremarkable aside from some chronic age-related neurodegenerative changes -Blood cultures May 02, 2024 2 of 2 group B strep, urine culture with 20,000 colonies Enterococcus faecalis and strep group B -Updated MRI of the brain: Unable to be completed -Repeat CT scan of the brain: No evidence of intracranial abnormality or acute process. Repeat CT scan of the brain on 05/13/2024: Stable without evidence of intracranialbleed or other acute process. -Routine EEG on 05/13/2024: Moderate to severe slowing. No evidence of epileptiform abnormalities. Noseizures recorded. No clinical events of seizure identified. ASSESSMENT: 68-year-old male with acute confusion with a metabolic encephalopathy secondary to bacteremia, UTI and pneumonia. He may have some underlying memory issue which we will need to assess further in the outpatient setting. He is fortunately improving. Patient did have an event of unresponsiveness but no seizure-like activity. He is doing better now and has not had any further episodes. He is on Depakote for mood not for seizure disorder. This the reasonfor this is unclear however he is currently doing better so we will follow. Patient does have a urinalysis which is positive for strep and Enterococcus and continued on Zosyn.He also has pneumonia and impressive infiltration on chest x- ray and hypoxia. Blood cultures at this time are negative. Depakote level is 32.3 therefore if he has further events we could load more Depakote however at this time I would hold is not entirely convincing that this unresponsive event was a seizure Patient still has a leukocytosis therefore I suspect much of this is more metabolic in nature. Plan Continue supportive care as he is improving Monitor for new unresponsive events or any seizure-like activity Depakote level is 32.2 therefore can load him and go higher if needed but will hold at this time since he is showing some improvement Reportedly they did get a sputum sample therefore will assess for culture and sensitivity At this time he is improving so we will follow and make changes as needed This was all discussed with the patient and all questions were answered they agreed with the treatment plan Documented By: Lavern Dahl DO 05/14/24 1117 Signed By: 05/14/[address] [facility]01-04-[address] [address] Hospitalist Progress Note Signed Patient: Juan Simon MR#: [id number] : 1955 Acct:[id number] Age/Sex: 68 / M Adm Date: 4 Loc: Room: [address] [place] [address] Type: ADM IN Attending Dr: Hilda Ruiz MD Copies to: ~ Date of Service: 05/14/2024 Subjective Subjective Narrative: Uneventful night. Patient feels better today. He continues to require 80% of FiO2 through high flowoxygen. 35 L. Exam Physical Exam Vital Signs: Temp Pulse Resp BP Pulse Ox O2 Del Method O2 Flow Rate 37 F L 91 26 H 127/76 94 L High Flow 35 05/14/24 08:00 05/14/24 12:00 05/14/24 12:00 05/14/24 12:00 05/14/24 12:00 05/14/24 12:00 05/14/24 09:09 FiO2 70 05/14/24 12:00 Narrative: Patient is lying in bed in ICU. Awake and oriented. His mental status is improved. Patient continues to be tachypneic. He is requiring high flow %. Chest exam revealed bilateral rhonchi. Heart is regular and sinus on the monitor. Abdomen soft. Lower extremities trace pitting edema. Mild to m oderate functional loss needing assist changing position and standing up. Objective Lab Results 05/14/24 09:18 05/14/24 09:18 Meds Allergies and Active Meds Allergies gluten Allergy (Unknown, Verified 05/02/24 09:54) Unknown Reaction Active Meds: Active Medications Generic Name Dose Route Start Last Admin Trade Name Freq PRN Reason Stop Dose Admin Acetaminophen 650 mg 05/02/24 17:28 05/09/24 22:00 Acetaminophen 325 Mg Tablet PO 05/02/25 17:27 650 mg Q6H PRN Administration Pain 1-5 or fever Albuterol 2.5 mg 05/08/24 13:37 Albuterol Neb 2.5 Mg/3 Ml Vial.Neb INHALATION 05/02/25 17:26 Q3H PRN shortness of breath or wheezin Albuterol/Ipratropium 3 ml 05/10/24 14:00 05/14/24 09:11 Ipratropium/Albuterol 0.5-3 Mg 3 Ml Ampul.Neb INHALATION 05/10/25 13:59 3 ml TID EDIE Administration Aspirin 81 mg 05/06/24 09:00 05/14/24 08:26 Aspirin 81 Mg Tablet. PO 05/06/25 08:59 81 mg DAILY EDIE Administration Budesonide/Formoterol Fumarate 2 puff 05/02/24 21:00 05/14/24 09:13 Budesonide/Formoterol 160-4.5 Mcg 60 Puff/6 Gm Hfa.Aer.Ad INHALATION 05/02/25 20:59 2 puff BID EDIE Administration Dextrose 0 gm 05/11/24 08:45 Dextrose 50% In Water 25 Gm/50 Ml Syringe IV-PUSH 05/11/25 08:44 PRN PRN Hypoglycemia Diltiazem HCl 180 mg 05/12/24 09:30 05/14/24 08:26 Diltiazem Cd.24hr 180 Mg Cap.Er.24h PO 05/12/25 09:29 180 mg DAILY EDIE Administration Divalproex Sodium 250 mg 05/11/24 09:00 05/14/24 08:26 Divalproex Sodium 250 Mg Tablet. PO 05/11/25 08:59 250 mg BID EDIE Administration Doxycycline Hyclate 100 mg 05/12/24 21:00 05/14/24 08:29 Doxycycline Hyclate 100 Mg Tablet PO 100 mg BID EDIE Administration Duloxetine HCl 60 mg 05/13/24 09:00 05/14/24 08:29 Duloxetine 60 Mg Capsule. PO 05/13/25 08:59 60 mg DAILY EDIE Administration Enoxaparin Sodium 40 mg 05/09/24 13:04 05/14/24 09:32 Enoxaparin 40 Mg/0.4 Ml Syringe SUBCUT 05/09/25 13:03 40 mg DAILY@1000 EDIE Administration Glucose 0 gm 05/11/24 08:45 Dextrose 40% Gel 15 Gm Tube PO 05/11/25 08:44 PRN PRN Hypoglycemia Guaifenesin 10 ml 05/13/24 20:42 05/13/24 21:03 Guaifenesin Syrup 10 Ml Udc PO 05/13/25 20:41 10 ml Q4H PRN Administration Cough Piperacillin Sod/Tazobactam Sod 4.5 gm in 100 mls @ 25 mls/hr 05/08/24 16:00 05/14/24 05:27 Zosyn IV 25 mls/hr Q8H EDIE Administration Insulin Aspart 0 units 05/11/24 12:00 05/14/24 07:45 Insulin Aspart 300 Units/3 Ml SUBCUT 05/11/25 11:59 Not Given TID.WM.HS EDIE Protocol Magnesium Oxide 400 mg 05/11/24 09:00 05/14/24 08:25 Magnesium Oxide 400 Mg Tablet PO 05/11/25 08:59 400 mg TID EDIE Administration Methylprednisolone Sodium Succinate 40 mg 05/12/24 14:00 05/14/24 07:46 Methylprednisolone Sod Succ/Pf 40 Mg/Ml (1ml) Vial IV-PUSH 05/12/25 13:59 40 mg Q6H EDIE Administration Metoprolol Succinate 50 mg 05/13/24 09:00 05/14/24 08:25 Metoprolol Succinate 50 Mg Tab.Er.24h PO 05/13/25 08:59 50 mg DAILY EDIE Administration Montelukast Sodium 10 mg 05/02/24 22:00 05/13/24 21:08 Montelukast 10 Mg Tablet PO 05/02/25 21:59 10 mg HS EDIE Administration Morphine Sulfate 1 mg 05/08/24 13:37 05/11/24 08:19 Morphine Sulfate 2 Mg/Ml Vial IV-PUSH 1 mg Q4H PRN Administration Pain Scale 7 - 10 Nystatin 400,000 unit 05/13/24 09:00 05/14/24 08:26 Nystatin Susp 500,000 Unit/5 Ml Udc PO 05/13/25 08:59 400,000 unit QID EDIE Administration Quetiapine Fumarate 25 mg 05/11/24 22:00 05/13/24 21:08 Quetiapine Fumarate 25 Mg Tablet PO 05/11/25 21:59 25 mg QHS EDIE Administration Sodium Chloride 0 ml 05/02/24 09:53 05/14/24 04:45 Sodium Chloride 0.9 % 10 Ml Syringe IV-PUSH 05/02/25 09:52 10 ml PRN PRN Administration Flush A&P - Hospitalist Assessment/Plan (1) Atrial fibrillation with rapid ventricular response: (2) Bacteremia due to group B Streptococcus: (3) Sepsis: (4) Urinary tract infection: (5) Acute hypoxic respiratory failure: (6) Pneumonia: Plan A-fib with RVR Patient converted back to sinus rhythm. Patient is having increased wheezing this morning which could be related to his pneumonia and or side effect of beta-david Reducing the dose of beta-david due to severe bronchospasm. Increase Cardizem. Changed from 30 mg4 times daily to CD1 80 mg daily. Patient is off Cardizem drip. Cardiology team does not recommend full dose anticoagulation. EF is normal Altered mental status, encephalopathy, possible seizure MRI could not be done here at [facility]. This MRI could not be scheduled before May 18. Neurology team recommended repeat CAT scan which does not show any evolution. Neurology team does not recommend any additional workup and investigation believing that his altered mental status is secondary to metabolic encephalopathy. Valproic acid level is pending. Sepsis, bacteremia UTI, pneumonia, hypoxic respiratory failure Repeat blood cultures are negative. UA is positive for strep and Enterococcus Continue Zosyn. Patient is on high flow oxygen. Trying to wean him down. Quite impressive infiltration on the chest CT. Worsening respiratory status this morning. Persistent hypoxemia. Patient is onZosyn and vancomycin.I added Solu-Medrol due to severe wheezing and bronchospasm this morning. Continue albuterol and Atrovent. Patient was seen by speech who did not recommend any modification of his diet due to not exhibitingany signs and symptoms of aspiration as per speech. Defer further needed diagnostic and therapeutic intervention for his respiratoryand medical management while in ICU to the pulmonary team. Hypomagnesemia Additional magnesium supplementation DVT prophylaxis Continue Lovenox and aspirin. No full dose anticoagulation by cardiology. Multiple other subacute, chronic medical conditions that could be addressed electively. Patient would likely require skilled care. Pre cert had been submitted I met his on 05/11/2024. I spent about 20 minutes at the bedside. I also called her on 05/13/2024 and I gave her update on his condition, status and treatment plan. I answered all of her questions. is very appreciative of the care that Juan is receiving here at [facility]. Documented By: Hilda Ruiz MD 05/14/24 1236 Signed By: 05/14/[address] [facility]01-03-2025 Progress note Author Miladis Rodriguez [facility] Note Date/Time May 13, 2024 5: 09pm [facility] [address] [place] [address] Pulmonology Progress Note Signed Patient: Juan Siomn MR#: [id number] : 1955 Acct:[id number] Age/Sex: 68 / M Adm Date: 4 Loc: Room: [address] [place] [address] Type: ADM IN Attending Dr: Hilda Ruiz MD Copies to: ~ Date of Service: 05/13/2024 Subjective Subjective Narrative: - transferred to ICU overnight due to worsening respiratory distress and mental status change - remains on hi flow this morning 35L 85%, CXR still with significant airspace opacities L>R despite broad spectrum atbx and steroids, diuretics Exam Physical Exam Vital Signs: Temp Pulse Resp BP Pulse Ox O2 Del Method O2 Flow Rate 98.5 F 88 24 123/61 94 L High Flow 35 05/13/24 12:00 05/13/24 16:41 05/13/24 16:41 05/13/24 15:00 05/13/24 16:41 05/13/24 16:00 05/13/24 16:41 FiO2 65 05/13/24 16:41 Const Other: Gen: Chronically ill appearing in mild respiratory distress HENT: EOMI PERRL no thrush Neck: supple no JVD CVS: RRR -m/r/g Lungs: scattered rhonchi and wheezing bilaterally Abd: soft non tender Ext: no LE edema good cap refill Neuro: AOx3 non focal motor and sensory exam Psych: normal affect Objective Intake and Output I&O - Last 24 Hours: Intake & Output 05/13/24 05/13/24 05/13/24 07:59 15:59 23:59 Intake Total 100 / 100 Output Total 850 / 850 Balance -850 / -750 100 / -750 Weight 94.8 kg Labs 05/13/24 03:48 05/13/24 03:48 Assessment/Plan Assessment/Plan (1) Sepsis: (2) Atrial fibrillation with rapid ventricular response: (3) Urinary tract infection: (4) Bacteremia due to Streptococcus: Plan - unclear why he is not improving despite broad spectrum atbx, high dose IV steroids, diuresis - he appears to be at high risk of aspiration given mental status and speech difficulty, however he did pass his swallow eval per INSTALLATION MANAGER; would still make sure there is full aspiration precautions - Unfortunately cannot provide a sputum sample; however, I would prefer not to electively intubate him to perform bronchoscopy as there is a likelihood he willnot be able to come off the vent, and his agrees - will stop further diuresis as his BUN and SCr are up and it has not helped - continue nebs and pulmonary toilet - CXR again tomorrow, if still worse repeat CT chest w/o contrast - will follow with you Critical Care Time: 30 Documented By: Miladis Rodriguez MD 1656 Signed By: <Electronically signed by Miladis Rodriguez MD> 05/13/24 1703 [facility] Work Phone: [phone] 508-759101-03-2025 [place] [address] Pulmonology Progress Note Signed Patient: Juan Simon MR#: [id number] : 1955 Acct:[id number] Age/Sex: 68 / M Adm Date: 4 Loc: Room: [address] [place] [address] Type: ADM IN Attending Dr: Hilda Ruiz MD Copies to: ~ Date of Service: 05/13/2024 Subjective Subjective Narrative: - transferred to ICU overnight due to worsening respiratory distress and mental status change - remains on hi flow this morning 35L 85%, CXR still with significant airspace opacities L>R despite broad spectrum atbx and steroids, diuretics Exam Physical Exam Vital Signs: Temp Pulse Resp BP Pulse Ox O2 Del Method O2 Flow Rate 98.5 F 88 24 123/61 94 L High Flow 35 05/13/24 12:00 05/13/24 16:41 05/13/24 16:41 05/13/24 15:00 05/13/24 16:41 05/13/24 16:00 05/13/24 16:41 FiO2 65 05/13/24 16:41 Const Other: Gen: Chronically ill appearing in mild respiratory distress HENT: EOMI PERRL no thrush Neck: supple no JVD CVS: RRR -m/r/g Lungs: scattered rhonchi and wheezing bilaterally Abd: soft non tender Ext: no LE edema good cap refill Neuro: AOx3 non focal motor and sensory exam Psych: normal affect Objective Intake and Output I&O - Last 24 Hours: Intake & Output 05/13/24 05/13/24 05/13/24 07:59 15:59 23:59 Intake Total 100 / 100 Output Total 850 / 850 Balance -850 / -750 100 / -750 Weight 94.8 kg Labs 05/13/24 03:48 05/13/24 03:48 Assessment/Plan Assessment/Plan (1) Sepsis: (2) Atrial fibrillation with rapid ventricular response: (3) Urinary tract infection: (4) Bacteremia due to Streptococcus: Plan - unclear why he is not improving despite broad spectrum atbx, high dose IV steroids, diuresis - he appears to be at high risk of aspiration given mental status and speech difficulty, however hedid pass his swallow eval per INSTALLATION MANAGER; would still make sure there is full aspiration precautions - Unfortunately cannot provide a sputum sample; however, I would prefer not to electively intubate him to perform bronchoscopy as there is a likelihood he willnot be able to come off the vent, and his agrees - will stop further diuresis as his BUN and SCr are up and it has not helped - continue nebs and pulmonary toilet - CXR again tomorrow, if still worse repeat CT chest w/o contrast - will follow with you Critical Care Time: 30 Documented By: Miladis Rodriguez MD 1656 Signed By: 05/13/[address] [facility]01-03-2025 Progress note Author Jimmy Gonzalez [facility] Note Date/Time May 13, 2024 11 :42am [facility] [address] [place] [address] Neurology Progress Note Signed Patient: Juan Simon MR#: [id number] : 1955 Acct:[id number] Age/Sex: 68 / M Adm Date: 4 Loc: Room: [address] [place] [address] Type: ADM IN Attending Dr: Hilda Ruiz MD Copies to: ~ Date of Service: 05/13/2024 Subjective Subjective Narrative: I was asked to see this patient again secondary to an episode yesterday in the middle of the night. There is an event note from approximately 3 AM from the primary service. This is summarized as follows: Medical emergency team response was called overhead shortly before 3 AM for episode described as staring off and unresponsiveness to sternal rub described overall rigidity/tremors of the shoulder area which the patient came out of quite quickly. At the bedside he is agitated, severely difficult to redirect and subsequently vital signs difficult to obtain. Systolic blood pressure is notably 101 at this time. He has a nonrebreather mask in place and unreliable pulse oximetry. Stat labs were ordered including prolactin, lactic acid and CK given the suspected seizure-like events. Reviewing the patient's daytime medical management he has been exhibiting ongoing respiratory failure, bacteremia intensified steroids. He has had new onset A-fib as well. Patient's agitation will be treated with Haldol 2 mg IV with repeat dosing based on response. Givenhis fall and now suspected epileptic activity he may have slowly suffered brain bleed with earlier fall and thus necessitates a repeat head CT. Not an order has been placed for this to be done after his agitation is controlled and accessfeasible. Obtain an a.m. chest x-ray for his ongoing respiratory failure. An ABG should be obtained as well although based on state of agitation doubt he is hypercarbic. EKG routinely unable. CAT scan of the brain was repeated on 05/13/2024 and did not show any acute intracranial abnormalities. It was stable and showed a chronic right mastoid effusion. Patient was just finishing EEG when I was in the room with the EEG techs around noon. He was sleeping. An extensive conversation with the patient's and daughter. They noted the patient to be on Depakote for mood. No known history of seizures. Review of Systems Review of Systems Unobtainable due to mental status and Unobtainable due to mental condition Exam Physical Exam Vital Signs: Temp Pulse Resp BP Pulse Ox O2 Del Method O2 Flow Rate 37 F L 100 28 H 132/82 96 High Flow 35 05/13/24 08:00 05/13/24 08:42 05/13/24 08:42 05/13/24 08:00 05/13/24 08:54 05/13/24 08:00 05/13/24 08:40 FiO2 80 05/13/24 08:54 Narrative: EXAMINATION: Patient was sleeping and difficult to arouse. Cranial nerves were symmetric grossly and brainstem reflexes intact Attention is poor Patient able to move all 4 extremities without obvious focal deficit. Formal power testing not possible. Reflexes depressed Coordination and gait not able to be tested Objective Vital Signs Vital Signs: Vital Signs - 24 hr 05/12/24 13:14 05/12/24 13:30 05/12/24 13:40 Temperature Pulse Rate 106 H 101 H 101 H Respiratory Rate 32 H 24 20 Blood Pressure 128/74 02 Sat by Pulse Oximetry 97 96 Oxygen Delivery Method High Flow Oxygen Flow Rate 35 35 Fraction of Inspired Oxygen 100 100 05/12/24 15:51 05/12/24 15:55 05/12/24 16:00 Temperature Pulse Rate 96 99 Respiratory Rate 24 18 Blood Pressure 109/86 02 Sat by Pulse Oximetry 95 97 Oxygen Delivery Method High Flow High Flow Oxygen Flow Rate 35 35 Fraction of Inspired Oxygen 100 85 05/12/24 19:58 05/12/24 20:00 05/12/24 20:34 Temperature Pulse Rate 99 109 H Respiratory Rate 24 18 Blood Pressure 124/84 02 Sat by Pulse Oximetry 100 Oxygen Delivery Method Nonrebreather High Flow Oxygen Flow Rate 35 Fraction of Inspired Oxygen 85 05/12/24 20:44 05/12/24 21:59 05/12/24 23:26 Temperature Pulse Rate 108 H 129 H 97 Respiratory Rate 18 26 H 29 H Blood Pressure 125/89 02 Sat by Pulse Oximetry 94 L 96 Oxygen Delivery Method High Flow Oxygen Flow Rate 35 Fraction of Inspired Oxygen 85 50 05/12/24 23:38 05/13/24 00:00 05/13/24 03:04 Temperature 98.2 F Pulse Rate 99 101 H Respiratory Rate 25 H 24 Blood Pressure 110/55 L 02 Sat by Pulse Oximetry 96 99 Oxygen Delivery Method BiPAP BiPAP Oxygen Flow Rate 35 Fraction of Inspired Oxygen 85 05/13/24 03:06 05/13/24 04:15 05/13/24 04:30 Temperature 97.2 F L Pulse Rate 98 88 Respiratory Rate 20 Blood Pressure 135/67 122/74 02 Sat by Pulse Oximetry 93 L Oxygen Delivery Method Nonrebreather Nonrebreather Oxygen Flow Rate Fraction of Inspired Oxygen 100 100 05/13/24 04:47 05/13/24 08:00 05/13/24 08:00 Temperature 97.9 F Pulse Rate 97 99 Respiratory Rate 23 22 Blood Pressure 132/82 02 Sat by Pulse Oximetry 92 L 97 Oxygen Delivery Method High Flow High Flow Oxygen Flow Rate 35 35 Fraction of Inspired Oxygen 85 80 05/13/24 08:00 05/13/24 08:40 05/13/24 08:42 Temperature 37 F L Pulse Rate 103 H 100 Respiratory Rate 29 H 28 H Blood Pressure 02 Sat by Pulse Oximetry 93 L Oxygen Delivery Method Oxygen Flow Rate 35 35 Fraction of Inspired Oxygen 85 85 05/13/24 08:54 Temperature Pulse Rate Respiratory Rate Blood Pressure 02 Sat by Pulse Oximetry 96 Oxygen Delivery Method Oxygen Flow Rate Fraction of Inspired Oxygen 80 Labs 05/13/24 03:48 05/13/24 03:48 Therapy Recommendations Therapy Recommendations: OT Recommendations OT Recommended Discharge Nursing Home Facility,Inpatient Rehab Unit Location OT Recommended Services at Physical Therapy,Occupational Therapy Discharge PT Recommendations PT Recommended Discharge Nursing Home Facility Location PT Recommended Services at Physical Therapy,Occupational Therapy Discharge ST Recommendations Liquid Consistency Thin Liquids Recommendation Solid Consistency Regular Solids Recommendations Meat Consistency Whole Meats Recommendations Medication Administration Whole Pills,Give Pills with Water Dysphagia Swallow Precautions/ Sitting Upright (90 deg) Strategies Assessment/Plan (1) Altered mental status: Qualifiers: Altered mental status type: delirium Qualified Code(s): R41.0 - Disorientation, unspecified Plan DATA REVIEW: -CTA of the chest:No acute pulmonary embolus. patchy right upper lung consolidation. Mild patchy left perihilar consolidation. Small layering pleural effusions. -Head CT May 02, 2024 nonacute, shows chronic right mastoiditis and possible otitis -MRI brain September 22, 2023 without contrast looks unremarkable aside from some chronic age-related neurodegenerative changes -Blood cultures May 02, 2024 2 of 2 group B strep, urine culture with 20,000 colonies Enterococcus faecalis and strep group B -Updated MRI of the brain: Unable to be completed -Repeat CT scan of the brain: No evidence of intracranial abnormality or acute process. Repeat CT scan of the brain on 05/13/2024: Stable without evidence of intracranialbleed or other acute process. -Routine EEG on 05/13/2024: Moderate to severe slowing. No evidence of epileptiform abnormalities. No seizures recorded. No clinical events of seizure identified. ASSESSMENT: It is my impression that the patient has metabolic encephalopathy secondary to bacteremia, UTI and pneumonia as well as a probable baseline cognitive impairment. CT scan of the brain has not identified an acute intracranial process and as such cardiology has decided to utilize aspirin instead of an anticoagulant medication which I think is appropriate. The thought is that the patient's sepsis is what led to the atrial fibrillation. He is being investigated in the outpatient setting for progressive cognitive decline with concern for dementia. If he has an underlying neurodegenerative disorder that would put him at increased risk for encephalopathy/delirium. He had an event at 3 AM on 05/13/2024. It appears that the patient became unresponsive. He did not definitively have seizure-like episode but it was certainly a consideration and concern. Repeat CT scan of the brain is without abnormality. Routine EEG is pending. Patient's mental status seems to have improved. Certainly this could have been a metabolic fluctuation as opposed to a seizure. Patient does have a urinalysis which is positive for strep and Enterococcus and continued on Zosyn. He also has pneumonia and impressive infiltration on chest x-ray and hypoxia. Blood cultures at this time are negative. PLAN: 1. Obtain valproic acid level. If the level is low we can increase the dose. Patient currently getting 250 mg p.o. twice daily. 2. Cardiology has recommended discontinuation of 10 a inhibitor and favored aspirin for prevention of stroke secondary to the [id number] score of 1 and the fact that A-fib would be secondary to sepsis. 3. Treatment of further metabolic development of infiltrates on x-ray per primary service. 3. Will follow Documented By: Jimmy Gonzalez DO 5 [id number] Signed By: <Electronically signed by Jimmy Gonzalez DO> 05/13/24 [facility] Work Phone: [phone] 205-140701-03-2025 [place] [address] Neurology Progress Note Signed Patient: Juan Simon MR#: [id number] : 1955 Acct:[id number] Age/Sex: 68 / M Adm Date: 4 Loc: Room: [address] [place] [address] Type: ADM IN Attending Dr: Hilda Ruiz MD Copies to: ~ Date of Service: 05/13/2024 Subjective Subjective Narrative: I was asked to see this patient again secondary to an episode yesterday in the middle of the night.There is an event note from approximately 3 AM from the primary service. This is summarized as follows: Medical emergency team response was called overhead shortly before 3 AM for episode described as staring off and unresponsiveness to sternal rub described overall rigidity/tremors of the shoulder area which the patient came out of quite quickly. At the bedside he is agitated, severely difficult to redirect and subsequently vital signs difficult to obtain. Systolic blood pressure is notably 101 atthis time. He has a nonrebreather mask in place and unreliable pulse oximetry. Stat labs were ordered including prolactin, lactic acid and CK given the suspected seizure-like events. Reviewing the patient's daytime medical management he has been exhibiting ongoing respiratory failure, bacteremia intensified steroids. He has had new onset A-fib as well. Patient's agitation will be treated with Haldol 2 mg IV with repeat dosing based on response. Givenhis fall and now suspected epileptic activity he may have slowly suffered brain bleed with earlier fall and thus necessitates a repeat head CT. Not an order has been placed for this to be done after his agitation is controlled and accessfeasible. Obtain an a.m. chest x-ray for his ongoing respiratory failure. An ABG shouldbe obtained as well although based on state of agitation doubt he is hypercarbic. EKG routinely unable. CAT scan of the brain was repeated on 05/13/2024 and did not show any acute intracranial abnormalities. It was stable and showed a chronic right mastoid effusion. Patient was just finishing EEG when I was in the room with the EEG techs around noon. He was sleeping. An extensive conversation with the patient's and daughter. They noted the patient to be on Depakote for mood. No known history of seizures. Review of Systems Review of Systems Unobtainable due to mental status and Unobtainable due to mental condition Exam Physical Exam Vital Signs: Temp Pulse Resp BP Pulse Ox O2 Del Method O2 Flow Rate 37 F L 100 28 H 132/82 96 High Flow 35 05/13/24 08:00 05/13/24 08:42 05/13/24 08:42 05/13/24 08:00 05/13/24 08:54 05/13/24 08:00 05/13/24 08:40 FiO2 80 05/13/24 08:54 Narrative: EXAMINATION: Patient was sleeping and difficult to arouse. Cranial nerves were symmetric grossly and brainstem reflexes intact Attention is poor Patient able to move all 4 extremities without obvious focal deficit. Formal power testing not possible. Reflexes depressed Coordination and gait not able to be tested Objective Vital Signs Vital Signs: Vital Signs - 24 hr 05/12/24 13:14 05/12/24 13:30 05/12/24 13:40 Temperature Pulse Rate 106 H 101 H 101 H Respiratory Rate 32 H 24 20 Blood Pressure 128/74 02 Sat by Pulse Oximetry 97 96 Oxygen Delivery Method High Flow Oxygen Flow Rate 35 35 Fraction of Inspired Oxygen 100 100 05/12/24 15:51 05/12/24 15:55 05/12/24 16:00 Temperature Pulse Rate 96 99 Respiratory Rate 24 18 Blood Pressure 109/86 02 Sat by Pulse Oximetry 95 97 Oxygen Delivery Method High Flow High Flow Oxygen Flow Rate 35 35 Fraction of Inspired Oxygen 100 85 05/12/24 19:58 05/12/24 20:00 05/12/24 20:34 Temperature Pulse Rate 99 109 H Respiratory Rate 24 18 Blood Pressure 124/84 02 Sat by Pulse Oximetry 100 Oxygen Delivery Method Nonrebreather High Flow Oxygen Flow Rate 35 Fraction of Inspired Oxygen 85 05/12/24 20:44 05/12/24 21:59 05/12/24 23:26 Temperature Pulse Rate 108 H 129 H 97 Respiratory Rate 18 26 H 29 H Blood Pressure 125/89 02 Sat by Pulse Oximetry 94 L 96 Oxygen Delivery Method High Flow Oxygen Flow Rate 35 Fraction of Inspired Oxygen 85 50 05/12/24 23:38 05/13/24 00:00 05/13/24 03:04 Temperature 98.2 F Pulse Rate 99 101 H Respiratory Rate 25 H 24 Blood Pressure 110/55 L 02 Sat by Pulse Oximetry 96 99 Oxygen Delivery Method BiPAP BiPAP Oxygen Flow Rate 35 Fraction of Inspired Oxygen 85 05/13/24 03:06 05/13/24 04:15 05/13/24 04:30 Temperature 97.2 F L Pulse Rate 98 88 Respiratory Rate 20 Blood Pressure 135/67 122/74 02 Sat by Pulse Oximetry 93 L Oxygen Delivery Method Nonrebreather Nonrebreather Oxygen Flow Rate Fraction of Inspired Oxygen 100 100 05/13/24 04:47 05/13/24 08:00 05/13/24 08:00 Temperature 97.9 F Pulse Rate 97 99 Respiratory Rate 23 22 Blood Pressure 132/82 02 Sat by Pulse Oximetry 92 L 97 Oxygen Delivery Method High Flow High Flow Oxygen Flow Rate 35 35 Fraction of Inspired Oxygen 85 80 05/13/24 08:00 05/13/24 08:40 05/13/24 08:42 Temperature 37 F L Pulse Rate 103 H 100 Respiratory Rate 29 H 28 H Blood Pressure 02 Sat by Pulse Oximetry 93 L Oxygen Delivery Method Oxygen Flow Rate 35 35 Fraction of Inspired Oxygen 85 85 05/13/24 08:54 Temperature Pulse Rate Respiratory Rate Blood Pressure 02 Sat by Pulse Oximetry 96 Oxygen Delivery Method Oxygen Flow Rate Fraction of Inspired Oxygen 80 Labs 05/13/24 03:48 05/13/24 03:48 Therapy Recommendations Therapy Recommendations: OT Recommendations OT Recommended Discharge Nursing Home Facility,Inpatient Rehab Unit Location OT Recommended Services at Physical Therapy,Occupational Therapy Discharge PT Recommendations PT Recommended Discharge Nursing Home Facility Location PT Recommended Services at Physical Therapy,Occupational Therapy Discharge ST Recommendations Liquid Consistency Thin Liquids Recommendation Solid Consistency Regular Solids Recommendations Meat Consistency Whole Meats Recommendations Medication Administration Whole Pills,Give Pills with Water Dysphagia Swallow Precautions/ Sitting Upright (90 deg) Strategies Assessment/Plan (1) Altered mental status: Qualifiers: Altered mental status type: delirium Qualified Code(s): R41.0 - Disorientation, unspecified Plan DATA REVIEW: -CTA of the chest:No acute pulmonary embolus. patchy right upper lung consolidation. Mild patchy left perihilar consolidation. Small layering pleural effusions. -Head CT May 02, 2024 nonacute, shows chronic right mastoiditis and possible otitis -MRI brain September 22, 2023 without contrast looks unremarkable aside from some chronic age-related neurodegenerative changes -Blood cultures May 02, 2024 2 of 2 group B strep, urine culture with 20,000 colonies Enterococcus faecalis and strep group B -Updated MRI of the brain: Unable to be completed -Repeat CT scan of the brain: No evidence of intracranial abnormality or acute process. Repeat CT scan of the brain on 05/13/2024: Stable without evidence of intracranialbleed or other acute process. -Routine EEG on 05/13/2024: Moderate to severe slowing. No evidence of epileptiform abnormalities. Noseizures recorded. No clinical events of seizure identified. ASSESSMENT: It is my impression that the patient has metabolic encephalopathy secondary to bacteremia, UTI and pneumonia as well as a probable baseline cognitive impairment. CT scan of the brain has not identified an acute intracranial process and as such cardiology has decided to utilize aspirin instead of an anticoagulant medication which I think is appropriate. The thought is that the patient's sepsis is what led to the atrial fibrillation. He is being investigated in the outpatient setting for progressive cognitive decline with concern for dementia. If he has an underlying neurodegenerative disorder that would put him at increased riskfor encephalopathy/delirium. He had an event at 3 AM on 05/13/2024. It appears that the patient became unresponsive. He did not definitively have seizure-like episode but it was certainly a consideration and concern. Repeat CT scan of the brain is without abnormality. Routine EEG is pending. Patient's mental status seems to have improved. Certainly this could have been a metabolic fluctuation as opposed to a seizure. Patient does have a urinalysis which is positive for strep and Enterococcus and continued on Zosyn.He also has pneumonia and impressive infiltration on chest x- ray and hypoxia. Blood cultures at this time are negative. PLAN: 1. Obtain valproic acid level. If the level is low we can increase the dose. Patient currently getting 250 mg p.o. twice daily. 2. Cardiology has recommended discontinuation of 10 a inhibitor and favored aspirin for prevention of stroke secondary to the [id number] score of 1 and the fact that A-fib would be secondary to sepsis. 3. Treatment of further metabolic development of infiltrates on x-ray per primary service. 3. Will follow Documented By: Jimmy Gonzalez DO 5 1102 Signed By: 05/13/24 [facility]01-03-2025 Progress note Author Hilda Ruiz [facility] Note Date/Time May 13, 2024 9: 39am [facility] [address] [place] [address] Progress Note Signed Patient: Juan Simon MR#: [id number] : 1955 Acct:[id number] Age/Sex: 68 / M Adm Date: 4 Loc: Room: 5G3450-4 Type: ADM IN Attending Dr: Hilda Ruiz MD Copies to: ~ Date of Service: 05/13/2024 Progress Narrative Note PROGRESS NOTE Progress Note: I called his Miranda to give her update on his condition, status and treatment plan. Also I wanted to know if she has any questions. She did not answer the phone. I left a message for her. Documented By: Hilda Ruiz MD 05/13/24938 Signed By: <Electronically signed by Hilda Ruiz MD> 05/13/24938 [facility] Work Phone: [phone]) 922-122301-03-2025 Progress note Author Hilda Ruiz [facility] Note Date/Time May 13, 2024 9: 38am [facility] [address] [place] [address] Hospitalist Progress Note Signed Patient: Juan Simon MR#: [id number] : 1955 Acct:[id number] Age/Sex: 68 / M Adm Date: 4 Loc: Room: [address] [place] [address] Type: ADM IN Attending Dr: Hilda Ruiz MD Copies to: ~ Date of Service: 05/13/2024 Subjective Subjective Narrative: Event was noted last evening. I discussed his case with Dr. Fields. Patient is awake this morning. He denies any head or neck pain. He denies any other muscular skeletal pain and discomfort. Patient continues to require high flow oxygen. 85%, 40 L. Minimal cough. Exam Physical Exam Vital Signs: Temp Pulse Resp BP Pulse Ox O2 Del Method O2 Flow Rate 97.9 F 100 28 H 132/82 96 High Flow 35 05/13/24 08:00 05/13/24 08:42 05/13/24 08:42 05/13/24 08:00 05/13/24 08:54 05/13/24 08:00 05/13/24 08:40 FiO2 80 05/13/24 08:54 Narrative: Patient is lying in bed in ICU. Awake and oriented. His mental status is same as yesterday. Patient continues to be tachypneic. He is requiring high flow oxygen 85%. Chest exam revealed bilateral rhonchi. Heart is regular and sinus on the monitor. Abdomen soft. Lower extremities trace pitting edema. Mild to moderate functional loss needing assist changing position and standing up. Objective Lab Results 05/13/24 03:48 05/13/24 03:48 ABG Interpretation ABG results: 05/13/24 05:40 ABG pH 7.47 H ABG pCO2 47.5 H ABG pO2 86.4 ABG HCO3 33.4 H ABG Total CO2 34.9 H ABG O2 Saturation 96.2 ABG O2 Content 7.0 ABG Base Excess 8.5 H Meds Allergies and Active Meds Allergies gluten Allergy (Unknown, Verified 05/02/24 09:54) Unknown Reaction Active Meds: Active Medications Generic Name Dose Route Start Last Admin Trade Name Freq PRN Reason Stop Dose Admin Acetaminophen 650 mg 05/02/24 17:28 05/09/24 22:00 Acetaminophen 325 Mg Tablet PO 05/02/25 17:27 650 mg Q6H PRN Administration Pain 1-5 or fever Albuterol 2.5 mg 05/08/24 13:37 Albuterol Neb 2.5 Mg/3 Ml Vial.Neb INHALATION 05/02/25 17:26 Q3H PRN shortness of breath or wheezin Albuterol/Ipratropium 3 ml 05/10/24 14:00 05/13/24 08:42 Ipratropium/Albuterol 0.5-3 Mg 3 Ml Ampul.Neb INHALATION 05/10/25 13:59 3 ml TID EDIE Administration Aspirin 81 mg 05/06/24 09:00 05/13/24 09:08 Aspirin 81 Mg Tablet. PO 05/06/25 08:59 81 mg DAILY EDIE Administration Budesonide/Formoterol Fumarate 2 puff 05/02/24 21:00 05/13/24 08:42 Budesonide/Formoterol 160-4.5 Mcg 60 Puff/6 Gm Hfa.Aer.Ad INHALATION 05/02/25 20:59 2 puff BID EDIE Administration Dextrose 0 gm 05/11/24 08:45 Dextrose 50% In Water 25 Gm/50 Ml Syringe IV-PUSH 05/11/25 08:44 PRN PRN Hypoglycemia Diltiazem HCl 180 mg 05/12/24 09:30 05/13/24 09:08 Diltiazem Cd.24hr 180 Mg Cap.Er.24h PO 05/12/25 09:29 180 mg DAILY EDIE Administration Divalproex Sodium 250 mg 05/11/24 09:00 05/13/24 09:08 Divalproex Sodium 250 Mg Tablet.Dr CHO 05/11/25 08:59 250 mg BID EDIE Administration Doxycycline Hyclate 100 mg 05/12/24 21:00 05/13/24 09:20 Doxycycline Hyclate 100 Mg Tablet PO 100 mg BID EDIE Administration Duloxetine HCl 60 mg 05/13/24 09:00 05/13/24 09:20 Duloxetine 60 Mg Capsule.Dr PO 05/13/25 08:59 60 mg DAILY EDIE Administration Enoxaparin Sodium 40 mg 05/09/24 13:04 05/13/24 09:09 Enoxaparin 40 Mg/0.4 Ml Syringe SUBCUT 05/09/25 13:03 40 mg DAILY@1000 EDIE Administration Furosemide 20 mg 05/12/24 16:00 05/13/24 09:08 Furosemide 20 Mg Tablet PO 05/12/25 15:59 20 mg BID@0800,1600 EDIE Administration Glucose 0 gm 05/11/24 08:45 Dextrose 40% Gel 15 Gm Tube PO 05/11/25 08:44 PRN PRN Hypoglycemia Piperacillin Sod/Tazobactam Sod 4.5 gm in 100 mls @ 25 mls/hr 05/08/24 16:00 05/13/24 05:12 Zosyn IV 25 mls/hr Q8H EDIE Administration Insulin Aspart 0 units 05/11/24 12:00 05/13/24 09:20 Insulin Aspart 300 Units/3 Ml SUBCUT 05/11/25 11:59 3 units TID.WM.HS EDIE Administration Protocol Magnesium Oxide 400 mg 05/11/24 09:00 05/13/24 09:08 Magnesium Oxide 400 Mg Tablet PO 05/11/25 08:59 400 mg TID EDIE Administration Methylprednisolone Sodium Succinate 40 mg 05/12/24 14:00 05/13/24 09:09 Methylprednisolone Sod Succ/Pf 40 Mg/Ml (1ml) Vial IV-PUSH 05/12/25 13:59 40 mg Q6H EDIE Administration Metoprolol Succinate 50 mg 05/13/24 09:00 05/13/24 09:13 Metoprolol Succinate 50 Mg Tab.Er.24h PO 05/13/25 08:59 50 mg DAILY EDIE Administration Montelukast Sodium 10 mg 05/02/24 22:00 05/12/24 22:46 Montelukast 10 Mg Tablet PO 05/02/25 21:59 10 mg HS EDIE Administration Morphine Sulfate 1 mg 05/08/24 13:37 05/11/24 08:19 Morphine Sulfate 2 Mg/Ml Vial IV-PUSH 1 mg Q4H PRN Administration Pain Scale 7 - 10 Nystatin 400,000 unit 05/13/24 09:00 05/13/24 09:13 Nystatin Susp 500,000 Unit/5 Ml Udc PO 05/13/25 08:59 400,000 unit QID EDIE Administration Quetiapine Fumarate 25 mg 05/11/24 22:00 05/12/24 22:47 Quetiapine Fumarate 25 Mg Tablet PO 05/11/25 21:59 25 mg QHS EDIE Administration Sodium Chloride 0 ml 05/02/24 09:53 05/13/24 09:21 Sodium Chloride 0.9 % 10 Ml Syringe IV-PUSH 05/02/25 09:52 10 ml PRN PRN Administration Flush A&P - Hospitalist Assessment/Plan (1) Atrial fibrillation with rapid ventricular response: (2) Bacteremia due to group B Streptococcus: (3) Sepsis: (4) Urinary tract infection: (5) Acute hypoxic respiratory failure: (6) Pneumonia: Plan Last evening event was noted. CT head does not show acute bleed. Patient is onDepakote pending neurology evaluation for possible seizure. Prolactin is elevated. A-fib with RVR Patient converted back to sinus rhythm. Patient is having increased wheezing this morning which could be related to his pneumonia and or side effect of beta-david Reducing the dose of beta-david due to severe bronchospasm. Increase Cardizem. Changed from 30 mg 4 times daily to CD1 80 mg daily. Patient is off Cardizem drip. Cardiology team does not recommend full dose anticoagulation. EF is normal Altered mental status, encephalopathy, improved since yesterday MRI could not bedone here at [facility]. This MRI could not be scheduled before May 18. Neurology team recommended repeat CAT scan which does not show any evolution. Neurology team does not recommend any additional workup and investigation believing that his altered mental status is secondary to metabolic encephalopathy. Sepsis, bacteremia UTI, pneumonia, hypoxic respiratory failure Repeat blood cultures are negative. UA is positive for strep and Enterococcus Continue Zosyn. Patient is on high flow oxygen. Quite impressive infiltration on the chest CT. Worsening respiratory status this morning. Persistent hypoxemia. Patient is onZosyn and vancomycin. I added Solu-Medrol due to severe wheezing and bronchospasm this morning. Continue albuterol and Atrovent. Patient was seen by speech who did not recommend any modification of his diet due to not exhibiting any signs and symptoms of aspiration as per speech. Defer further needed diagnostic and therapeutic intervention for his respiratoryand medical management while in ICU to the pulmonary team. Hypomagnesemia Additional magnesium supplementation DVT prophylaxis Continue Lovenox and aspirin. Multiple other subacute, chronic medical conditions that could be addressed electively. Patient would likely require skilled care. Pre cert had been submitted I met his on 05/11/2024. I spent about 20 minutes at the bedside. I gave her update on his condition, status and treatment plan. I answered all of her questions. is very appreciative of the care that Juan is receiving [facility]. Documented By: Hilda Ruiz MD 05/13/2435 Signed By: <Electronically signed by Hilda Ruiz MD> 05/13/24937 [facility] Work Phone: [phone]) 820-517601-03-2025 [place] [address] Progress Note Signed Patient: Juan Simon MR#: [id number] : 1955 Acct:[id number] Age/Sex: 68 / M Adm Date: 4 Loc: Room: [address] [place] [address] Type: ADM IN Attending Dr: Hilda Ruiz MD Copies to: ~ Date of Service: 05/13/2024 Progress Narrative Note PROGRESS NOTE Progress Note: I called his Miranda to give her update on his condition, status and treatment plan. Also I wanted to know if she has any questions. She did not answer the phone. I left a message for her. Documented By: Hilda Ruiz MD 05/13/24938 Signed By: 05/13/2439 [facility]01-03-2025 [place] [address] Hospitalist Progress Note Signed Patient: Juan Simon MR#: [id number] : 1955 Acct:[id number] Age/Sex: 68 / M Adm Date: 4 Loc: 4C Room: [address] [place] [address] Type: ADM IN Attending Dr: Hilda Ruiz MD Copies to: ~ Date of Service: 05/13/2024 Subjective Subjective Narrative: Event was noted last evening. I discussed his case with Dr. Fields. Patient is awake this morning. He denies any head or neck pain. He denies any other muscular skeletal pain and discomfort. Patient continues to require high flow oxygen. 85%, 40 L. Minimal cough. Exam Physical Exam Vital Signs: Temp Pulse Resp BP Pulse Ox O2 Del Method O2 Flow Rate 97.9 F 100 28 H 132/82 96 High Flow 35 05/13/24 08:00 05/13/24 08:42 05/13/24 08:42 05/13/24 08:00 05/13/24 08:54 05/13/24 08:00 05/13/24 08:40 FiO2 80 05/13/24 08:54 Narrative: Patient is lying in bed in ICU. Awake and oriented. His mental status is same as yesterday. Patientcontinues to be tachypneic. He is requiring high flow oxygen 85%. Chest exam revealed bilateral rhonchi. Heart is regular and sinus on the monitor. Abdomen soft. Lower extremities trace pitting edema. Mild to moderate functional loss needing assist changing position and standing up. Objective Lab Results 05/13/24 03:48 05/13/24 03:48 ABG Interpretation ABG results: 05/13/24 05:40 ABG pH 7.47 H ABG pCO2 47.5 H ABG pO2 86.4 ABG HCO3 33.4 H ABG Total CO2 34.9 H ABG O2 Saturation 96.2 ABG O2 Content 7.0 ABG Base Excess 8.5 H Meds Allergies and Active Meds Allergies gluten Allergy (Unknown, Verified 05/02/24 09:54) Unknown Reaction Active Meds: Active Medications Generic Name Dose Route Start Last Admin Trade Name Freq PRN Reason Stop Dose Admin Acetaminophen 650 mg 05/02/24 17:28 05/09/24 22:00 Acetaminophen 325 Mg Tablet PO 05/02/25 17:27 650 mg Q6H PRN Administration Pain 1-5 or fever Albuterol 2.5 mg 05/08/24 13:37 Albuterol Neb 2.5 Mg/3 Ml Vial.Neb INHALATION 05/02/25 17:26 Q3H PRN shortness of breath or wheezin Albuterol/Ipratropium 3 ml 05/10/24 14:00 05/13/24 08:42 Ipratropium/Albuterol 0.5-3 Mg 3 Ml Ampul.Neb INHALATION 05/10/25 13:59 3 ml TID EDIE Administration Aspirin 81 mg 05/06/24 09:00 05/13/24 09:08 Aspirin 81 Mg Tablet. PO 05/06/25 08:59 81 mg DAILY EDIE Administration Budesonide/Formoterol Fumarate 2 puff 05/02/24 21:00 05/13/24 08:42 Budesonide/Formoterol 160-4.5 Mcg 60 Puff/6 Gm Hfa.Aer.Ad INHALATION 05/02/25 20:59 2 puff BID EDIE Administration Dextrose 0 gm 05/11/24 08:45 Dextrose 50% In Water 25 Gm/50 Ml Syringe IV-PUSH 05/11/25 08:44 PRN PRN Hypoglycemia Diltiazem HCl 180 mg 05/12/24 09:30 05/13/24 09:08 Diltiazem Cd.24hr 180 Mg Cap.Er.24h PO 05/12/25 09:29 180 mg DAILY EDIE Administration Divalproex Sodium 250 mg 05/11/24 09:00 05/13/24 09:08 Divalproex Sodium 250 Mg Tablet. PO 05/11/25 08:59 250 mg BID EDIE Administration Doxycycline Hyclate 100 mg 05/12/24 21:00 05/13/24 09:20 Doxycycline Hyclate 100 Mg Tablet PO 100 mg BID EDIE Administration Duloxetine HCl 60 mg 05/13/24 09:00 05/13/24 09:20 Duloxetine 60 Mg Capsule. PO 05/13/25 08:59 60 mg DAILY EDIE Administration Enoxaparin Sodium 40 mg 05/09/24 13:04 05/13/24 09:09 Enoxaparin 40 Mg/0.4 Ml Syringe SUBCUT 05/09/25 13:03 40 mg DAILY@1000 EDIE Administration Furosemide 20 mg 05/12/24 16:00 05/13/24 09:08 Furosemide 20 Mg Tablet PO 05/12/25 15:59 20 mg BID@0800,1600 EDIE Administration Glucose 0 gm 05/11/24 08:45 Dextrose 40% Gel 15 Gm Tube PO 05/11/25 08:44 PRN PRN Hypoglycemia Piperacillin Sod/Tazobactam Sod 4.5 gm in 100 mls @ 25 mls/hr 05/08/24 16:00 05/13/24 05:12 Zosyn IV 25 mls/hr Q8H EDIE Administration Insulin Aspart 0 units 05/11/24 12:00 05/13/24 09:20 Insulin Aspart 300 Units/3 Ml SUBCUT 05/11/25 11:59 3 units TID.WM.HS EDIE Administration Protocol Magnesium Oxide 400 mg 05/11/24 09:00 05/13/24 09:08 Magnesium Oxide 400 Mg Tablet PO 05/11/25 08:59 400 mg TID EDIE Administration Methylprednisolone Sodium Succinate 40 mg 05/12/24 14:00 05/13/24 09:09 Methylprednisolone Sod Succ/Pf 40 Mg/Ml (1ml) Vial IV-PUSH 05/12/25 13:59 40 mg Q6H EDIE Administration Metoprolol Succinate 50 mg 05/13/24 09:00 05/13/24 09:13 Metoprolol Succinate 50 Mg Tab.Er.24h PO 05/13/25 08:59 50 mg DAILY EDIE Administration Montelukast Sodium 10 mg 05/02/24 22:00 05/12/24 22:46 Montelukast 10 Mg Tablet PO 05/02/25 21:59 10 mg HS EDIE Administration Morphine Sulfate 1 mg 05/08/24 13:37 05/11/24 08:19 Morphine Sulfate 2 Mg/Ml Vial IV-PUSH 1 mg Q4H PRN Administration Pain Scale 7 - 10 Nystatin 400,000 unit 05/13/24 09:00 05/13/24 09:13 Nystatin Susp 500,000 Unit/5 Ml Udc PO 05/13/25 08:59 400,000 unit QID EDIE Administration Quetiapine Fumarate 25 mg 05/11/24 22:00 05/12/24 22:47 Quetiapine Fumarate 25 Mg Tablet PO 05/11/25 21:59 25 mg QHS EDIE Administration Sodium Chloride 0 ml 05/02/24 09:53 05/13/24 09:21 Sodium Chloride 0.9 % 10 Ml Syringe IV-PUSH 05/02/25 09:52 10 ml PRN PRN Administration Flush A&P - Hospitalist Assessment/Plan (1) Atrial fibrillation with rapid ventricular response: (2) Bacteremia due to group B Streptococcus: (3) Sepsis: (4) Urinary tract infection: (5) Acute hypoxic respiratory failure: (6) Pneumonia: Plan Last evening event was noted. CT head does not show acute bleed. Patient is onDepakote pending neurology evaluation for possible seizure. Prolactin is elevated. A-fib with RVR Patient converted back to sinus rhythm. Patient is having increased wheezing this morning which could be related to his pneumonia and or side effect of beta-david Reducing the dose of beta-david due to severe bronchospasm. Increase Cardizem. Changed from 30 mg4 times daily to CD1 80 mg daily. Patient is off Cardizem drip. Cardiology team does not recommend full dose anticoagulation. EF is normal Altered mental status, encephalopathy, improved since yesterday MRI could not bedone here at [facility]. This MRI could not be scheduled before May 18. Neurology team recommended repeat CAT scan which does not show any evolution. Neurology team does not recommend any additional workup and investigation believing that his altered mental status is secondary to metabolic encephalopathy. Sepsis, bacteremia UTI, pneumonia, hypoxic respiratory failure Repeat blood cultures are negative. UA is positive for strep and Enterococcus Continue Zosyn. Patient is on high flow oxygen. Quite impressive infiltration on the chest CT. Worsening respiratory status this morning. Persistent hypoxemia. Patient is onZosyn and vancomycin.I added Solu-Medrol due to severe wheezing and bronchospasm this morning. Continue albuterol and Atrovent. Patient was seen by speech who did not recommend any modification of his diet due to not exhibitingany signs and symptoms of aspiration as per speech. Defer further needed diagnostic and therapeutic intervention for his respiratoryand medical management while in ICU to the pulmonary team. Hypomagnesemia Additional magnesium supplementation DVT prophylaxis Continue Lovenox and aspirin. Multiple other subacute, chronic medical conditions that could be addressed electively. Patient would likely require skilled care. Pre cert had been submitted I met his on 05/11/2024. I spent about 20 minutes at the bedside. I gave her update on his condition, status and treatment plan. I answered all of her questions. [facility] Documented By: Hilda Ruiz MD 05/13/24 0935 Signed By: 05/13/[address] [facility]01-03-2025 Radiology Diagnostic study note [facility] [place] [address] [place], [place] [id number] CT Scan Report Signed Patient: Juan Simon MR#: [id number] : 1955 Acct:[id number] Age/Sex: 68 / M ADM Date: 4 Loc: Room: [address] [place] [address] Type: ADM IN Attending Dr: Hilda Ruiz MD Copies to: DO Hilda Lassiter MD~ Ordering Provider: Moris Quarles DO Date of Service: 05/13/24 CT/CT head/brain wo con: seizure after fall with headtrauma earlier CT BRAIN WITHOUT CONTRAST: CLINICAL HISTORY: Seizure and change in mental status status post fall COMPARISON: 05/12/2024 TECHNIQUE: Contiguous axial unenhanced images were obtained through the brain. This CT exam was performed using one or more following dose reduction techniques: Automated exposure control, adjustmentof the mA and/or kV accordingto patient size, or use of iterative reconstruction technique. FINDINGS: There is no evidence of midline shift, intra or extra-axial fluid collection, hemorrhage or CT evidence of stroke. Mild central involutional changes with prominent ventricles also appear mild chronic small vessel ischemicdisease. Intracranial vascular calcifications. Visualized intraorbital contents appear unremarkable. Right mastoid effusion. The surrounding soft tissues are normal. CT/CT head/brain wo con IMPRESSION: NO ACUTE INTRACRANIAL ABNORMALITY. STABLE CHRONIC CHANGES. RIGHT MASTOID EFFUSION. Impression dictated by: Bj Herzog M.D.05/13/2024 8:36 AM Dictation Location: [place] [address] Transcribed By: [facility] 05/13/24835 Dictated By: Bj Herzog MD 05/13/24 0834 Signed By: 05/13/2436 [facility] Work Phone: 1(980) 301-238301-03-2025 Progress note Author Moris Quarles [facility] Note Date/Time May 13, 2024 3: 36am [facility] [address] [place], [place] [id number] Event Note Signed with Addenda Patient: Juan Simon MR#: [id number] : 1955 Acct:[id number] Age/Sex: 68 / M Adm Date: 4 Loc: 4 Room: 9W8857-1 Type: ADM IN Attending Dr: Hilda Ruiz MD Copies to: Tatiana Benson Jr, DO oMris Quarles, DO Hilda Ruiz MD~ ADDENDUM1 I personally reassessed the patient shortly after dose of Haldol was provided. He is calm appearing and oriented well enough to state he is agreeable to a repeat head CT. With stat CT earlier it is possible any associated traumatic bleed may not have been captured with the image. Will transfer the patient to intensive care as well for seizure monitoring based on description of of this event. Routine EEG. Will reconsult neurology who evaluated the patient earlierduring this stay. Multiple metabolic causes for his confusion were suspected atthat time. Per documentation he was to be taken off Depakote earlier this day but appears to currently have this on board twice daily since May 11, should be providing some antiseizure property. Will avoid benzodiazepines however given multiple respiratory issues chronically and acutely as well as not to precipitate and worsen agitation and delirium. Addendum Documented By: Moris Quarles DO 05/13/24334 Addendum Signed By: <Electronically signed by Moris Quarles DO> 05/13/24334 Status Event Note Event Note DATE OF EVENT: 05/13/24 TIME OF EVENT: 02:57 EVENT DETAILS: Medical emergency team response was called overhead shortly before 3 AM for episode described as staring off and unresponsiveness to sternal rub described overall rigidity/tremors of the shoulder area which the patient came out of quite quickly. At the bedside he is agitated, severely difficult to redirect and subsequently vital signs difficult to obtain. Systolic blood pressure is notably 101 at this time. He has a nonrebreather mask in place and unreliable pulse oximetry. Stat labs were ordered including prolactin, lactic acid and CK given the suspected seizure-like events. Reviewing the patient's daytime medical management he has been exhibiting ongoing respiratory failure, bacteremia intensified steroids. He has had new onset A-fib as well. Patient's agitation will be treated with Haldol 2 mg IV with repeat dosing based on response. Givenhis fall and now suspected epileptic activity he may have slowly suffered brain bleed with earlier fall and thus necessitates a repeat head CT. Not an order has been placed for this to be done after his agitation is controlled and accessfeasible. Obtain an a.m. chest x-ray for his ongoing respiratory failure. An ABG should be obtained as well although based on state of agitation doubt he is hypercarbic. EKG routinely unable. TIME W/PATIENT (# MINS): 20 Documented By: Moris Quarles DO 05/13/24 09 Signed By: <Electronically signed by Moris Quarles DO> 05/13/24 0317 [facility] Work Phone: 1(407) 612-785201-03-2025 Progress note Author Moris Quarles [facility] Note Date/Time May 13, 2024 3: 08am [facility] [address] [place] [address] Progress Note Signed Patient: Juan Simon MR#: [id number] : 1955 Acct:[id number] Age/Sex: 68 / M Adm Date: 4 Loc: Room: [address] [place] [address] Type: ADM IN Attending Dr: Hilda Ruiz MD Copies to: ~ Date of Service: 05/12/2024 Progress Narrative Note Mechanical fall Hematoma PROGRESS NOTE Progress Note: This patient has been present since 05/02 due to altered mental status noticed by his at home. He has been a one-on-one sitter due to significant fall risk and was recently graduated to a [employer]itter. This evening it was stated that he was getting out of bed despite being prompted to lay back down by the TeleSitter, proceeded to get wrapped in his lines and fell to the floor on the side of the bed opposite to the TeleSitter device. It is uncertain whether thispatient hit their head at this time. They also around this time pulled out the IV in the left arm. There is a large hematoma at the site of the left forearm where the IV was pulled out. This patient also has significant bruising around the in place IV in the right arm. There was a micro abrasion on his head which appeared new. They are being anticoagulated with Lovenox 40 mg subcu daily. Due to the inability to see on TeleSitter recording whether or not there was a head trauma involved we have determined that a head CT is the best course of action. We have also decided to reinitiate a one-on-one sitter for this patient. This patient did not have any focal neurological deficits on exam. Heis oriented to person and place but not to time. Still demonstrating altered mental status. Documented By: Moris Quarles DO 05/12/24 20 32 Signed By: <Electronically signed by Moris Quarles DO> 05/13/24 0308 <Electronically signed by DO EZEKIEL Moore> 05/12/242038 [facility] Work Phone: 1(566) 380-804001-03-2025 [place] [id number] Event Note Signed with Addenda Patient: Juan Simon MR#: [id number] : 1955 Acct:[id number] Age/Sex: 68 / M Adm Date: 4 Loc: Room: [address] [place] [address] Type: ADM IN Attending Dr: Hilda Ruiz MD Copies to: Tatiana Benson Jr, DO Hilda Barragan MD~ ADDENDUM1 I personally reassessed the patient shortly after dose of Haldol was provided. He is calm appearingand oriented well enough to state he is agreeable to a repeat head CT. With stat CT earlier it is possible any associated traumatic bleed may not have been captured with the image. Will transfer the patient to intensive care as well for seizure monitoring based on description of of this event. Routine EEG. Will reconsult neurology who evaluated the patient earlierduring this stay. Multiple metabolic causes for his confusion were suspected atthat time. Per documentation he was to be taken off Depakote earlier this day but appears to currently have this on board twice daily since May 11, should be providing some antiseizure property. Will avoid benzodiazepines however given multiple respiratory issues chronically and acutely as well as not to precipitate and worsen agitation and delirium. Addendum Documented By: Moris Quarles DO 05/13/24334 Addendum Signed By: 05/13/24334 Status Event Note Event Note DATE OF EVENT: 05/13/24 TIME OF EVENT: 02:57 EVENT DETAILS: Medical emergency team response was called overhead shortly before 3 AM for episode described as staring off and unresponsiveness to sternal rub described overall rigidity/tremors of the shoulder area which the patient came out of quite quickly. At the bedside he is agitated, severely difficult to redirect and subsequently vital signs difficult to obtain. Systolic blood pressure is notably 101 atthis time. He has a nonrebreather mask in place and unreliable pulse oximetry. Stat labs were ordered including prolactin, lactic acid and CK given the suspected seizure-like events. Reviewing the patient's daytime medical management he has been exhibiting ongoing respiratory failure, bacteremia intensified steroids. He has had new onset A-fib as well. Patient's agitation will be treated with Haldol 2 mg IV with repeat dosing based on response. Givenhis fall and now suspected epileptic activity he may have slowly suffered brain bleed with earlier fall and thus necessitates a repeat head CT. Not an order has been placed for this to be done after his agitation is controlled and accessfeasible. Obtain an a.m. chest x-ray for his ongoing respiratory failure. An ABG shouldbe obtained as well although based on state of agitation doubt he is hypercarbic. EKG routinely unable. TIME W/PATIENT (# MINS): 20 Documented By: Moris Quarles DO 05/13/24 03 09 Signed By: 05/13/[address] [facility]01-03-2025 [place] [id number] Progress Note Signed Patient: Juan Simon MR#: [id number] : 1955 Acct:[id number] Age/Sex: 68 / M Adm Date: 4 Loc: 4 Room: [address] [place] [address] Type: ADM IN Attending Dr: Hilda Ruiz MD Copies to: ~ Date of Service: 05/12/2024 Progress Narrative Note Mechanical fall Hematoma PROGRESS NOTE Progress Note: This patient has been present since 05/02 due to altered mental status noticed by his at home.He has been a one-on-one sitter due to significant fall risk and was recently graduated to a TeleSitter. This evening it was stated that he was getting out of bed despite being prompted to lay back down by the TeleSitter, proceeded to get wrapped in his lines and fell to the floor on the side of the bed opposite to the TeleSitter device. It is uncertain whether thispatient hit their head at this time. They also around this time pulled out the IV in the left arm. There is a large hematoma at thesite of the left forearm where the IV was pulled out. This patient also has significant bruising around the in place IV in the right arm. There was a micro abrasion on his head which appeared new. They are being anticoagulated with Lovenox 40 mg subcu daily. Due to the inability to see on TeleSitter recording whether or not there was a head trauma involved we have determined that a head CT is thebest course of action. We have also decided to reinitiate a one-on-one sitter for this patient. This patient did not have any focal neurological deficits on exam. Heis oriented to person and place but not to time. Still demonstrating altered mental status. Documented By: Moris Quarles DO 05/12/24 20 32 Signed By: 05/13/24 0308 05/12/242038 [facility]01-02-2025 Radiology Diagnostic study note [facility] [place] [address] [place] [address] CT Scan Report Signed Patient: Juan Simon MR#: [id number] : 1955 Acct:[id number] Age/Sex: 68 / M ADM Date: 4 Loc: 4 Room: [address] [place] [address] Type: ADM IN Attending Dr: Hilda Ruiz MD Copies to: MD Nakul Clark DO, RES~ Ordering Provider: Nakul Moore DO, RES Date of Service: 05/12/24 CT/CT head/brain wo con: Fall CT head/brain wo con 05/12/2024 8:24 PM SIGNS AND SYMPTOMS: Fall, head injury TECHNIQUE:Multi-detector CT axial slices of the brain were obtained without IV contrast. CT was performed with one or more of the following dose reduction techniques: Automated exposure control, adjustment of the mA and/or kV accordingto patient size, or use of iterative reconstruction technique. COMPARISON: 05/09/2024 FINDINGS: There is no shift of the midline structures, acute intracranial bleeding, mass effects, or evidence of acute ischemia. There is age-related cortical atrophy. The ventricular system is normal in size. The brainstem and the cerebellum are unremarkable. The visualized intraorbital contents, the visualized paranasal sinuses, and the infratemporal soft tissues show no acute abnormality. There is a small right mastoid effusion. The osseous structures in the skull base and the calvarium showno abnormality. CT/CT head/brain wo con IMPRESSION: No acute intracranial pathology. Mild chronic age-related neurodegenerative changes are noted as above. Impression dictated by: Xander Solano M.D.05/12/2024 9:28 PM Dictation Location: [place] [address] Transcribed By: [facility] 05/12/242127 Dictated By: Xander Solano II, MD 05/12/242123 Signed By: 05/12/242127 [facility] Work Phone: 1(410) 931-473601-02-2025 Progress note Author Miladis Rodriguez [facility] Note Date/Time May 12, 2024 3: 20pm [facility] [address] [place] [address] Pulmonology Progress Note Signed Patient: Juan Simon MR#: [id number] : 1955 Acct:[id number] Age/Sex: 68 / M Adm Date: 4 Loc: 4 Room: [address] [place] [address] Type: ADM IN Attending Dr: Hilda Ruiz MD Copies to: ~ Date of Service: 05/12/2024 Subjective Subjective Narrative: - still on hi flow with desaturation on minimal exertion, WBC trending back up Exam Physical Exam Vital Signs: Temp Pulse Resp BP Pulse Ox O2 Del Method O2 Flow Rate 98.5 F 101 H 20 128/74 96 High Flow 35 05/12/24 08:17 05/12/24 13:40 05/12/24 13:40 05/12/24 13:14 05/12/24 13:30 05/12/24 13:14 05/12/24 13:30 FiO2 100 05/12/24 13:30 Const Other: Gen: Chronically ill appearing in mild respiratory distress HENT: EOMI PERRL no thrush Neck: supple no JVD CVS: RRR -m/r/g Lungs: scattered rhonchi and wheezing bilaterally Abd: soft non tender Ext: no LE edema good cap refill Neuro: AOx3 non focal motor and sensory exam Psych: normal affect Objective Intake and Output I&O - Last 24 Hours: Intake & Output 05/11/24 05/12/24 05/12/24 23:59 07:59 15:59 Intake Total 950 / 1860 450 / 700 250 / 700 Output Total 250 / 250 Balance 950 / 1110 200 / 450 250 / 450 Weight 97.6 kg Labs 05/11/24 04:40 05/11/24 04:40 Assessment/Plan Assessment/Plan (1) Sepsis: (2) Atrial fibrillation with rapid ventricular response: (3) Urinary tract infection: (4) Bacteremia due to Streptococcus: Plan - will get stat CXR; will also increase IV steroids to 40q6 - will trial gentle diuresis - continue hi flow wean as tolerated; BIPAP qhs and prn - continue broad spectrum atbx; sputum culture if he is able - continue nebs and inhalers - will follow with you Documented By: Miladis Rodriguez MD [id number] Signed By: <Electronically signed by Miladis Rodriguez MD> 05/12/24 152 [facility] Work Phone: 1(254) 201-752401-02-2025 [place] [address] Pulmonology Progress Note Signed Patient: Juan Simon MR#: [id number] : 1955 Acct:[id number] Age/Sex: 68 / M Adm Date: 4 Loc: 4 Room: [address] [place] [address] Type: ADM IN Attending Dr: Hilda Ruiz MD Copies to: ~ Date of Service: 05/12/2024 Subjective Subjective Narrative: - still on hi flow with desaturation on minimal exertion, WBC trending back up Exam Physical Exam Vital Signs: Temp Pulse Resp BP Pulse Ox O2 Del Method O2 Flow Rate 98.5 F 101 H 20 128/74 96 High Flow 35 05/12/24 08:17 05/12/24 13:40 05/12/24 13:40 05/12/24 13:14 05/12/24 13:30 05/12/24 13:14 05/12/24 13:30 FiO2 100 05/12/24 13:30 Const Other: Gen: Chronically ill appearing in mild respiratory distress HENT: EOMI PERRL no thrush Neck: supple no JVD CVS: RRR -m/r/g Lungs: scattered rhonchi and wheezing bilaterally Abd: soft non tender Ext: no LE edema good cap refill Neuro: AOx3 non focal motor and sensory exam Psych: normal affect Objective Intake and Output I&O - Last 24 Hours: Intake & Output 05/11/24 05/12/24 05/12/24 23:59 07:59 15:59 Intake Total 950 / 1860 450 / 700 250 / 700 Output Total 250 / 250 Balance 950 / 1110 200 / 450 250 / 450 Weight 97.6 kg Labs 05/11/24 04:40 05/11/24 04:40 Assessment/Plan Assessment/Plan (1) Sepsis: (2) Atrial fibrillation with rapid ventricular response: (3) Urinary tract infection: (4) Bacteremia due to Streptococcus: Plan - will get stat CXR; will also increase IV steroids to 40q6 - will trial gentle diuresis - continue hi flow wean as tolerated; BIPAP qhs and prn - continue broad spectrum atbx; sputum culture if he is able - continue nebs and inhalers - will follow with you Documented By: Miladis Rodriguez MD [id number] Signed By: 05/12/[address] [facility]01-02-2025 Progress note Author Hilda Ruiz [facility] Note Date/Time May 12, 2024 9: 27am [facility] [address] [place] [address] Hospitalist Progress Note Signed Patient: Juan Simon MR#: [id number] : 1955 Acct:[id number] Age/Sex: 68 / M Adm Date: 4 Loc: 4 Room: [address] [place] [address] Type: ADM IN Attending Dr: Hilda Ruiz MD Copies to: ~ Date of Service: 05/12/2024 Subjective Subjective Narrative: 68M with PMH of Asthma, celiac disease, DJD and chronic back pain s/p spinal cord stimulator and nerve ablations, frequent Falls, migraines, MANUEL who presented with AMS and admitted for the evaluation and treatment of Afib RVR andcirculatory shock Assessment And Plan PNA 04/28 There was hypoxia today CXR showed new infiltrates. switch Abx back to Zosyn and Vancomycin the patient reported abdominal pain today will obtain CTA since he is getting Abd CT too CTA chest shows No acute pulmonary embolus. patchy right upper lung consolidation. Mild patchy left perihilar consolidation. Small layering pleuraleffusions. Abdominal pain the patient reported abdominal pain today but no pain now. WBC up to 22 CT abd today shows No acute findings. Small bowel bilateral layering pleural effusions. Similar left nephrolithiasis. Supportive Circulatory shock - resolved He was given a total of multiple dose of metoprolol to control his Afib RVR. then he developed hypotension. he was given 3L of IVF. he was started on Levophed. Lactic wnl . he was admitted to the ICU . Pulmonary was consulted for critical care management Strep Bacteremia due to Strep UTI Sepsis due to above Hypotension noted in the ED with tachycardia and mild leukocytosis. he had feverup to 39.5C. he was started on broad spectrum IV antibiotics Lactic acid wnl CXR ED shows no acute cardiopulmonary abnormality Respiratory (Upper) Panel, PCR negative Blood Cx ED 05/02 Strep agalactiae urine Cx shows Enterococcus/Strep agalactiae Follow up Blood Cx 05/03 and 05/[address] Abd shows No acute intra-abdominal process. Small bilateral pleural effusions. ID consult recommendation appreciated Unasyn with Transition to PO Augmentin on DC (Plan of total 14 days) Acute toxic-metabolic encephalopathy Septic encephalopathy with delirium the patient presents with acute confusional state and behavior changes noted by his Urine Tox screen is positive for amphetamine CT brain shows no acute intracranial process Ammonia wnl ABG shows no hypercapnia Could be due to the current infection other causes can't be ruled out Depakote was discontinued due to interaction with his apixaban, doxepin was discontinued given his cardiac dysrhythmia MRI (spinal stimulator is not compatible with the 3T magnet). MRI with 1.5 Teslamachine without contrast pending neurology recommendation appreciated supportive and treatment of the underlying condition Newly diagnosed Paroxysmal Afib with RVR the patient was found to have Afib RVR in the ED with heart rate up to 150s and received multiple doses of metoprolol IV. he converted to NSR in the ED EKG ED 9:45 am shows Afib@146 bpm without significant acute changes. EKG 3:20 pm shows NSR No significant electrolyte Abnormality, Mg 1.8 (replaced) TSH in EMR wnl Echocardiogram EF 60%, Mild he was evaluated by Cardiology; he was started on Beta david, Digoxin and Eliquis, then Digoxin and Eliquis was discontinued due that afib episode was associated with sepsis 04/27 the patient is back to Afib RVR with HR up to 150s then down to 100s agree with increasing metoprolol dose was given one dose of digoxin IV Cardizem drip wean off cardiology recommendation appreciated Elevated Troponin Type II MD Troponin was found incidentally to be mildly elevated above normal limits 106 upto 311. There is no chest pain, nor significant EKG changes. This is likely type2 myocardial infarction secondary to ischemia due to increased oxygen demand and/or decreased supply in the setting of tachycardia . Troponin will be repeated. Further workup, if needed, can be done in an outpatient setting. Acute Urinary Retention Hayden was inserted Impaired mobility and ADL PT/OT has been consulted. Nursing Home Facility,Inpatient Rehab Unit was recommended. INTERVAL HPI:?As Above, Pt resting in bed. no fever Chronic diseases:?Unless mentioned Above, Essential home medications have been continued.? DVT Px:?Addressed Disposition:?To be determined Plan of care Discussed with:?the medical team, the patient at bedside Exam Physical Exam Vital Signs: Temp Pulse Resp BP Pulse Ox O2 Del Method O2 Flow Rate 98.5 F 101 H 20 140/73 92 L High Flow 35 05/12/24 08:17 05/12/24 08:43 05/12/24 08:43 05/12/24 08:17 05/12/24 08:18 05/12/24 08:37 05/12/24 08:37 FiO2 85 05/12/24 08:37 Objective Lab Results 05/11/24 04:40 05/11/24 04:40 Meds Allergies and Active Meds Allergies gluten Allergy (Unknown, Verified 05/02/24 09:54) Unknown Reaction Active Meds: Active Medications Generic Name Dose Route Start Last Admin Trade Name Freq PRN Reason Stop Dose Admin Acetaminophen 650 mg 05/02/24 17:28 05/09/24 22:00 Acetaminophen 325 Mg Tablet PO 05/02/25 17:27 650 mg Q6H PRN Administration Pain 1-5 or fever Albuterol 2.5 mg 05/08/24 13:37 Albuterol Neb 2.5 Mg/3 Ml Vial.Neb INHALATION 05/02/25 17:26 Q3H PRN shortness of breath or wheezin Albuterol/Ipratropium 3 ml 05/10/24 14:00 05/12/24 08:42 Ipratropium/Albuterol 0.5-3 Mg 3 Ml Ampul.Neb INHALATION 05/10/25 13:59 3 ml TID EDIE Administration Aspirin 81 mg 05/06/24 09:00 05/12/24 08:15 Aspirin 81 Mg Tablet.Dr PO 05/06/25 08:59 81 mg DAILY EDIE Administration Budesonide/Formoterol Fumarate 2 puff 05/02/24 21:00 05/12/24 08:42 Budesonide/Formoterol 160-4.5 Mcg 60 Puff/6 Gm Hfa.Aer.Ad INHALATION 05/02/25 20:59 2 puff BID EDIE Administration Dextrose 0 gm 05/11/24 08:45 Dextrose 50% In Water 25 Gm/50 Ml Syringe IV-PUSH 05/11/25 08:44 PRN PRN Hypoglycemia Diltiazem HCl 180 mg 05/12/24 09:20 Diltiazem Cd.24hr 180 Mg Cap.Er.24h PO 05/12/25 09:19 DAILY EDIE Divalproex Sodium 250 mg 05/11/24 09:00 05/12/24 08:15 Divalproex Sodium 250 Mg Tablet.Dr PO 05/11/25 08:59 250 mg BID EDIE Administration Enoxaparin Sodium 40 mg 05/09/24 13:04 05/12/24 08:15 Enoxaparin 40 Mg/0.4 Ml Syringe SUBCUT 05/09/25 13:03 40 mg DAILY@1000 EDIE Administration Glucose 0 gm 05/11/24 08:45 Dextrose 40% Gel 15 Gm Tube PO 05/11/25 08:44 PRN PRN Hypoglycemia Piperacillin Sod/Tazobactam Sod 4.5 gm in 100 mls @ 25 mls/hr 05/08/24 16:00 05/12/24 03:01 Zosyn IV 25 mls/hr Q8H EDIE Administration Insulin Aspart 0 units 05/11/24 12:00 05/12/24 08:14 Insulin Aspart 300 Units/3 Ml SUBCUT 05/11/25 11:59 Not Given TID.WM.HS EDIE Protocol Magnesium Oxide 400 mg 05/11/24 09:00 05/12/24 08:15 Magnesium Oxide 400 Mg Tablet PO 05/11/25 08:59 400 mg TID EDIE Administration Methylprednisolone Sodium Succinate 40 mg 05/11/24 09:00 05/12/24 08:15 Methylprednisolone Sod Succ/Pf 40 Mg/Ml (1ml) Vial IV-PUSH 05/11/25 08:59 40 mg Q12HR EDIE Administration Montelukast Sodium 10 mg 05/02/24 22:00 05/11/24 22:47 Montelukast 10 Mg Tablet PO 05/02/25 21:59 10 mg HS EDIE Administration Morphine Sulfate 1 mg 05/08/24 13:37 05/11/24 08:19 Morphine Sulfate 2 Mg/Ml Vial IV-PUSH 1 mg Q4H PRN Administration Pain Scale 7 - 10 Quetiapine Fumarate 25 mg 05/11/24 22:00 05/11/24 22:47 Quetiapine Fumarate 25 Mg Tablet PO 05/11/25 21:59 25 mg QHS EDIE Administration Sodium Chloride 0 ml 05/02/24 09:53 05/12/24 09:11 Sodium Chloride 0.9 % 10 Ml Syringe IV-PUSH 05/02/25 09:52 10 ml PRN PRN Administration Flush Vancomycin HCl 1 each 05/08/24 11:26 Vancomycin - Pharmacy Dosing 1 Each Miscell IV ONCE PRN ZZ.Pharmacy Consult Protocol A&P - Hospitalist Assessment/Plan (1) Atrial fibrillation with rapid ventricular response: (2) Bacteremia due to group B Streptococcus: (3) Sepsis: (4) Urinary tract infection: (5) Acute hypoxic respiratory failure: (6) Pneumonia: Plan The aforementioned paragraph was documented by my colleague Patient converted back to sinus rhythm. Patient is more awake and conversational today. Less tachypneic. He continues to require high flow oxygen. Patient is lying in bed. Awake and alert. Able to answer yes and no questions. Patient is more awake and coherent compared to yesterday. Able to follow commands. Symmetrical motor and tone. Generalized weakness and fatigue. Patient is less tachypneic. He continues to require high flow oxygen 75%. He yomaira oxygen. Chest exam revealed improvement and resolution of bilateral rhonchi and wheezing. Heart is regular this morning when I saw him. A-fib with RVR Patient converted back to sinus rhythm. Patient is having increased wheezing this morning which could be related to his pneumonia and or side effect of beta-david Reducing the dose of beta-david due to severe bronchospasm. Increase Cardizem. Changed from 30 mg 4 times daily to CD1 80 mg daily. Patient is off Cardizem drip. Cardiology team does not recommend full dose anticoagulation. EF is normal Altered mental status, encephalopathy, improved since yesterday MRI could not bedone here at [facility]. This MRI could not be scheduled before May 18. Neurology team recommended repeat CAT scan which does not show any evolution. Neurology team does not recommend any additional workup and investigation believing that his altered mental status is secondary to metabolic encephalopathy. Sepsis, bacteremia UTI, pneumonia, hypoxic respiratory failure Repeat blood cultures are negative. UA is positive for strep and Enterococcus Continue Zosyn. Patient is on high flow oxygen. Quite impressive infiltration on the chest CT. Worsening respiratory status this morning. Persistent hypoxemia. Patient is onZosyn and vancomycin. I added Solu-Medrol due to severe wheezing and bronchospasm this morning. Continue albuterol and Atrovent. Patient was seen by speech who did not recommend any modification of his diet due to not exhibiting any signs and symptoms of aspiration as per speech. Hypomagnesemia Additional magnesium supplementation DVT prophylaxis Continue Lovenox and aspirin. Multiple other subacute, chronic medical conditions that could be addressed electively. Patient would likely require skilled care. Pre cert had been submitted I met his on 05/11/2024. I spent about 20 minutes at the bedside. I gave her update on his condition, status and treatment plan. I answered all of her questions. is very appreciative of the care that Juan is [facility]. Documented By: Hilda Ruiz MD 05/12/24 0923 Signed By: <Electronically signed by Hilda Ruiz MD> 05/12/24926 [facility] Work Phone: 1(777) 541-866801-02-2025 [place] [address] Hospitalist Progress Note Signed Patient: Juan Simon MR#: [id number] : 1955 Acct:[id number] Age/Sex: 68 / M Adm Date: 4 Loc: Room: [address] [place] [address] Type: ADM IN Attending Dr: Hilda Ruiz MD Copies to: ~ Date of Service: 05/12/2024 Subjective Subjective Narrative: 68M with PMH of Asthma, celiac disease, DJD and chronic back pain s/p spinal cord stimulator and nerve ablations, frequent Falls, migraines, MANUEL who presented with AMS and admitted for the evaluationand treatment of Afib RVR andcirculatory shock Assessment And Plan PNA 04/28 There was hypoxia today CXR showed new infiltrates. switch Abx back to Zosyn and Vancomycin the patient reported abdominal pain today will obtain CTA since he is getting Abd CT too CTA chest shows No acute pulmonary embolus. patchy right upper lung consolidation. Mild patchy leftperihilar consolidation. Small layering pleuraleffusions. Abdominal pain the patient reported abdominal pain today but no pain now. WBC up to 22 CT abd today shows No acute findings. Small bowel bilateral layering pleural effusions. Similar left nephrolithiasis. Supportive Circulatory shock - resolved He was given a total of multiple dose of metoprolol to control his Afib RVR. then he developed hypotension. he was given 3L of IVF. he was started on Levophed. Lactic wnl . he was admitted to the ICU. Pulmonary was consulted for critical care management Strep Bacteremia due to Strep UTI Sepsis due to above Hypotension noted in the ED with tachycardia and mild leukocytosis. he had feverup to 39.5C. he wasstarted on broad spectrum IV antibiotics Lactic acid wnl CXR ED shows no acute cardiopulmonary abnormality Respiratory (Upper) Panel, PCR negative Blood Cx ED 05/02 Strep agalactiae urine Cx shows Enterococcus/Strep agalactiae Follow up Blood Cx 05/03 and 05/[address] Abd shows No acute intra-abdominal process. Small bilateral pleural effusions. ID consult recommendation appreciated Unasyn with Transition to PO Augmentin on DC (Plan of total 14 days) Acute toxic-metabolic encephalopathy Septic encephalopathy with delirium the patient presents with acute confusional state and behavior changes noted by his Urine Tox screen is positive for amphetamine CT brain shows no acute intracranial process Ammonia wnl ABG shows no hypercapnia Could be due to the current infection other causes can't be ruled out Depakote was discontinued due to interaction with his apixaban, doxepin was discontinued given his cardiac dysrhythmia MRI (spinal stimulator is not compatible with the 3T magnet). MRI with 1.5 Teslamachine without contrast pending neurology recommendation appreciated supportive and treatment of the underlying condition Newly diagnosed Paroxysmal Afib with RVR the patient was found to have Afib RVR in the ED with heart rate up to 150s and received multiple doses of metoprolol IV. he converted to NSR in the ED EKG ED 9:45 am shows Afib@146 bpm without significant acute changes. EKG 3:20 pm shows NSR No significant electrolyte Abnormality, Mg 1.8 (replaced) TSH in EMR wnl Echocardiogram EF 60%, Mild he was evaluated by Cardiology; he was started on Beta david, Digoxin and Eliquis, then Digoxin and Eliquis was discontinued due that afib episode was associated with sepsis 04/27 the patient is back to Afib RVR with HR up to 150s then down to 100s agree with increasing metoprolol dose was given one dose of digoxin IV Cardizem drip wean off cardiology recommendation appreciated Elevated Troponin Type II MD Troponin was found incidentally to be mildly elevated above normal limits 106 upto 311. There is nochest pain, nor significant EKG changes. This is likely type2 myocardial infarction secondary to ischemia due to increased oxygen demand and/or decreased supply in the setting of tachycardia . Troponin will be repeated. Further workup, if needed, can be done in an outpatient setting. Acute Urinary Retention Hayden was inserted Impaired mobility and ADL PT/OT has been consulted. Nursing Home Facility,Inpatient Rehab Unit was recommended. INTERVAL HPI:?As Above, Pt resting in bed. no fever Chronic diseases:?Unless mentioned Above, Essential home medications have been continued.? DVT Px:?Addressed Disposition:?To be determined Plan of care Discussed with:?the medical team, the patient at bedside Exam Physical Exam Vital Signs: Temp Pulse Resp BP Pulse Ox O2 Del Method O2 Flow Rate 98.5 F 101 H 20 140/73 92 L High Flow 35 05/12/24 08:17 05/12/24 08:43 05/12/24 08:43 05/12/24 08:17 05/12/24 08:18 05/12/24 08:37 05/12/24 08:37 FiO2 85 05/12/24 08:37 Objective Lab Results 05/11/24 04:40 05/11/24 04:40 Meds Allergies and Active Meds Allergies gluten Allergy (Unknown, Verified 05/02/24 09:54) Unknown Reaction Active Meds: Active Medications Generic Name Dose Route Start Last Admin Trade Name Korina PRN Reason Stop Dose Admin Acetaminophen 650 mg 05/02/24 17:28 05/09/24 22:00 Acetaminophen 325 Mg Tablet PO 05/02/25 17:27 650 mg Q6H PRN Administration Pain 1-5 or fever Albuterol 2.5 mg 05/08/24 13:37 Albuterol Neb 2.5 Mg/3 Ml Vial.Neb INHALATION 05/02/25 17:26 Q3H PRN shortness of breath or wheezin Albuterol/Ipratropium 3 ml 05/10/24 14:00 05/12/24 08:42 Ipratropium/Albuterol 0.5-3 Mg 3 Ml Ampul.Neb INHALATION 05/10/25 13:59 3 ml TID EDIE Administration Aspirin 81 mg 05/06/24 09:00 05/12/24 08:15 Aspirin 81 Mg Tablet. PO 05/06/25 08:59 81 mg DAILY EDIE Administration Budesonide/Formoterol Fumarate 2 puff 05/02/24 21:00 05/12/24 08:42 Budesonide/Formoterol 160-4.5 Mcg 60 Puff/6 Gm Hfa.Aer.Ad INHALATION 05/02/25 20:59 2 puff BID EDIE Administration Dextrose 0 gm 05/11/24 08:45 Dextrose 50% In Water 25 Gm/50 Ml Syringe IV-PUSH 05/11/25 08:44 PRN PRN Hypoglycemia Diltiazem HCl 180 mg 05/12/24 09:20 Diltiazem Cd.24hr 180 Mg Cap.Er.24h PO 05/12/25 09:19 DAILY EDIE Divalproex Sodium 250 mg 05/11/24 09:00 05/12/24 08:15 Divalproex Sodium 250 Mg Tablet. PO 05/11/25 08:59 250 mg BID EDIE Administration Enoxaparin Sodium 40 mg 05/09/24 13:04 05/12/24 08:15 Enoxaparin 40 Mg/0.4 Ml Syringe SUBCUT 05/09/25 13:03 40 mg DAILY@1000 EDIE Administration Glucose 0 gm 05/11/24 08:45 Dextrose 40% Gel 15 Gm Tube PO 05/11/25 08:44 PRN PRN Hypoglycemia Piperacillin Sod/Tazobactam Sod 4.5 gm in 100 mls @ 25 mls/hr 05/08/24 16:00 05/12/24 03:01 Zosyn IV 25 mls/hr Q8H EDIE Administration Insulin Aspart 0 units 05/11/24 12:00 05/12/24 08:14 Insulin Aspart 300 Units/3 Ml SUBCUT 05/11/25 11:59 Not Given TID.WM.HS EDIE Protocol Magnesium Oxide 400 mg 05/11/24 09:00 05/12/24 08:15 Magnesium Oxide 400 Mg Tablet PO 05/11/25 08:59 400 mg TID EDIE Administration Methylprednisolone Sodium Succinate 40 mg 05/11/24 09:00 05/12/24 08:15 Methylprednisolone Sod Succ/Pf 40 Mg/Ml (1ml) Vial IV-PUSH 05/11/25 08:59 40 mg Q12HR EDIE Administration Montelukast Sodium 10 mg 05/02/24 22:00 05/11/24 22:47 Montelukast 10 Mg Tablet PO 05/02/25 21:59 10 mg HS EDIE Administration Morphine Sulfate 1 mg 05/08/24 13:37 05/11/24 08:19 Morphine Sulfate 2 Mg/Ml Vial IV-PUSH 1 mg Q4H PRN Administration Pain Scale 7 - 10 Quetiapine Fumarate 25 mg 05/11/24 22:00 05/11/24 22:47 Quetiapine Fumarate 25 Mg Tablet PO 05/11/25 21:59 25 mg QHS EDIE Administration Sodium Chloride 0 ml 05/02/24 09:53 05/12/24 09:11 Sodium Chloride 0.9 % 10 Ml Syringe IV-PUSH 05/02/25 09:52 10 ml PRN PRN Administration Flush Vancomycin HCl 1 each 05/08/24 11:26 Vancomycin - Pharmacy Dosing 1 Each Miscell IV ONCE PRN ZZ.Pharmacy Consult Protocol A&P - Hospitalist Assessment/Plan (1) Atrial fibrillation with rapid ventricular response: (2) Bacteremia due to group B Streptococcus: (3) Sepsis: (4) Urinary tract infection: (5) Acute hypoxic respiratory failure: (6) Pneumonia: Plan The aforementioned paragraph was documented by my colleague Patient converted back to sinus rhythm. Patient is more awake and conversational today. Less tachypneic. He continues to require high flow oxygen. Patient is lying in bed. Awake and alert. Able to answer yes and no questions. Patient is more awake and coherent compared to yesterday. Able to follow commands. Symmetrical motor and tone. Generalized weakness and fatigue. Patient is less tachypneic. He continues to require high flow oxygen 75%. He yomaira oxygen. Chest exam revealed improvement and resolution of bilateral rhonchi and wheezing. Heart is regular this morning when I saw him. A-fib with RVR Patient converted back to sinus rhythm. Patient is having increased wheezing this morning which could be related to his pneumonia and or side effect of beta-david Reducing the dose of beta-david due to severe bronchospasm. Increase Cardizem. Changed from 30 mg4 times daily to CD1 80 mg daily. Patient is off Cardizem drip. Cardiology team does not recommend full dose anticoagulation. EF is normal Altered mental status, encephalopathy, improved since yesterday MRI could not bedone here at [facility]. This MRI could not be scheduled before May 18. Neurology team recommended repeat CAT scan which does not show any evolution. Neurology team does not recommend any additional workup and investigation believing that his altered mental status is secondary to metabolic encephalopathy. Sepsis, bacteremia UTI, pneumonia, hypoxic respiratory failure Repeat blood cultures are negative. UA is positive for strep and Enterococcus Continue Zosyn. Patient is on high flow oxygen. Quite impressive infiltration on the chest CT. Worsening respiratory status this morning. Persistent hypoxemia. Patient is onZosyn and vancomycin.I added Solu-Medrol due to severe wheezing and bronchospasm this morning. Continue albuterol and Atrovent. Patient was seen by speech who did not recommend any modification of his diet due to not exhibitingany signs and symptoms of aspiration as per speech. Hypomagnesemia Additional magnesium supplementation DVT prophylaxis Continue Lovenox and aspirin. Multiple other subacute, chronic medical conditions that could be addressed electively. Patient would likely require skilled care. Pre cert had been submitted I met his on 05/11/2024. I spent about 20 minutes at the bedside. I gave her update on his condition, status and treatment plan. I answered all of her questions. [facility] Documented By: Hilda Ruiz MD 05/12/24 0923 Signed By: 05/12/[address] [facility]01-01-2025 Progress note Author Miladis Rodriguez [facility] Note Date/Time May 11, 2024 3: 11pm [facility] [address] [place] [address] Pulmonology Progress Note Signed Patient: Juan Simon MR#: [id number] : 1955 Acct:[id number] Age/Sex: 68 / M Adm Date: 4 Loc: Room: [address] [place] [address] Type: ADM IN Attending Dr: Hilda Ruiz MD Copies to: ~ Date of Service: 05/11/2024 Subjective Subjective Narrative: - seems to be worse today, wore BIPAP on and off last night, hospitalist did start him on steroids today Exam Physical Exam Vital Signs: Temp Pulse Resp BP Pulse Ox O2 Del Method O2 Flow Rate 98.0 F 98 22 128/67 97 High Flow 35 05/11/24 12:19 05/11/24 12:53 05/11/24 12:53 05/11/24 12:19 05/11/24 12:53 05/11/24 12:19 05/11/24 12:53 FiO2 75 05/11/24 12:53 Const Other: Gen: Chronically ill appearing not in respiratory distress HENT: EOMI PERRL no thrush Neck: supple no JVD CVS: RRR -m/r/g Lungs: scattered rhonchi and wheezing bilaterally Abd: soft non tender Ext: no LE edema good cap refill Neuro: AOx3 non focal motor and sensory exam Psych: normal affect Objective Intake and Output I&O - Last 24 Hours: Intake & Output 05/10/24 05/11/24 05/11/24 23:59 07:59 15:59 Intake Total 850 / 1600 440 / 810 370 / 810 Output Total 750 / 1125 400 / 750 350 / 750 Balance 100 / 475 40 / 60 20 / 60 Weight 98.3 kg Labs 05/11/24 04:40 05/11/24 04:40 Assessment/Plan Assessment/Plan (1) Sepsis: (2) Atrial fibrillation with rapid ventricular response: (3) Urinary tract infection: (4) Bacteremia due to Streptococcus: Plan - agree with starting IV steroids - continue BIPAP qhs and prn unless he becomes really agitated on it - continue broad spectrum atbx, pending cultures - continue nebs and inhalers - will follow with you Documented By: Miladis Rodriguez MD [id number] Signed By: <Electronically signed by Miladis Rodriguez MD> 05/11/24 1511 [facility] Work Phone: 1(781) 578-500801-01-2025 [place] [address] Pulmonology Progress Note Signed Patient: Juan Simon MR#: [id number] : 1955 Acct:[id number] Age/Sex: 68 / M Adm Date: 4 Loc: 4 Room: [address] [place] [address] Type: ADM IN Attending Dr: Hilda Ruiz MD Copies to: ~ Date of Service: 05/11/2024 Subjective Subjective Narrative: - seems to be worse today, wore BIPAP on and off last night, hospitalist did start him on steroids today Exam Physical Exam Vital Signs: Temp Pulse Resp BP Pulse Ox O2 Del Method O2 Flow Rate 98.0 F 98 22 128/67 97 High Flow 35 05/11/24 12:19 05/11/24 12:53 05/11/24 12:53 05/11/24 12:19 05/11/24 12:53 05/11/24 12:19 05/11/24 12:53 FiO2 75 05/11/24 12:53 Const Other: Gen: Chronically ill appearing not in respiratory distress HENT: EOMI PERRL no thrush Neck: supple no JVD CVS: RRR -m/r/g Lungs: scattered rhonchi and wheezing bilaterally Abd: soft non tender Ext: no LE edema good cap refill Neuro: AOx3 non focal motor and sensory exam Psych: normal affect Objective Intake and Output I&O - Last 24 Hours: Intake & Output 05/10/24 05/11/24 05/11/24 23:59 07:59 15:59 Intake Total 850 / 1600 440 / 810 370 / 810 Output Total 750 / 1125 400 / 750 350 / 750 Balance 100 / 475 40 / 60 20 / 60 Weight 98.3 kg Labs 05/11/24 04:40 05/11/24 04:40 Assessment/Plan Assessment/Plan (1) Sepsis: (2) Atrial fibrillation with rapid ventricular response: (3) Urinary tract infection: (4) Bacteremia due to Streptococcus: Plan - agree with starting IV steroids - continue BIPAP qhs and prn unless he becomes really agitated on it - continue broad spectrum atbx, pending cultures - continue nebs and inhalers - will follow with you Documented By: Miladis Rodriguez MD [id number] Signed By: 05/11/[address] [facility]01-01-2025 Progress note Author Hilda Ruiz [facility] Note Date/Time May 11, 2024 8: 44am [facility] [address] [place] [address] Hospitalist Progress Note Signed Patient: Juan Simon MR#: [id number] : 1955 Acct:[id number] Age/Sex: 68 / M Adm Date: 4 Loc: Room: [address] [place] [address] Type: ADM IN Attending Dr: Hilda Ruiz MD Copies to: ~ Date of Service: 05/11/2024 Subjective Subjective Narrative: 68M with PMH of Asthma, celiac disease, DJD and chronic back pain s/p spinal cord stimulator and nerve ablations, frequent Falls, migraines, MANUEL who presented with AMS and admitted for the evaluation and treatment of Afib RVR andcirculatory shock Assessment And Plan PNA 04/28 There was hypoxia today CXR showed new infiltrates. switch Abx back to Zosyn and Vancomycin the patient reported abdominal pain today will obtain CTA since he is getting Abd CT too CTA chest shows No acute pulmonary embolus. patchy right upper lung consolidation. Mild patchy left perihilar consolidation. Small layering pleuraleffusions. Abdominal pain the patient reported abdominal pain today but no pain now. WBC up to 22 CT abd today shows No acute findings. Small bowel bilateral layering pleural effusions. Similar left nephrolithiasis. Supportive Circulatory shock - resolved He was given a total of multiple dose of metoprolol to control his Afib RVR. then he developed hypotension. he was given 3L of IVF. he was started on Levophed. Lactic wnl . he was admitted to the ICU . Pulmonary was consulted for critical care management Strep Bacteremia due to Strep UTI Sepsis due to above Hypotension noted in the ED with tachycardia and mild leukocytosis. he had feverup to 39.5C. he was started on broad spectrum IV antibiotics Lactic acid wnl CXR ED shows no acute cardiopulmonary abnormality Respiratory (Upper) Panel, PCR negative Blood Cx ED 05/02 Strep agalactiae urine Cx shows Enterococcus/Strep agalactiae Follow up Blood Cx 05/03 and 05/[address] Abd shows No acute intra-abdominal process. Small bilateral pleural effusions. ID consult recommendation appreciated Unasyn with Transition to PO Augmentin on DC (Plan of total 14 days) Acute toxic-metabolic encephalopathy Septic encephalopathy with delirium the patient presents with acute confusional state and behavior changes noted by his Urine Tox screen is positive for amphetamine CT brain shows no acute intracranial process Ammonia wnl ABG shows no hypercapnia Could be due to the current infection other causes can't be ruled out Depakote was discontinued due to interaction with his apixaban, doxepin was discontinued given his cardiac dysrhythmia MRI (spinal stimulator is not compatible with the 3T magnet). MRI with 1.5 Teslamachine without contrast pending neurology recommendation appreciated supportive and treatment of the underlying condition Newly diagnosed Paroxysmal Afib with RVR the patient was found to have Afib RVR in the ED with heart rate up to 150s and received multiple doses of metoprolol IV. he converted to NSR in the ED EKG ED 9:45 am shows Afib@146 bpm without significant acute changes. EKG 3:20 pm shows NSR No significant electrolyte Abnormality, Mg 1.8 (replaced) TSH in EMR wnl Echocardiogram EF 60%, Mild he was evaluated by Cardiology; he was started on Beta david, Digoxin and Eliquis, then Digoxin and Eliquis was discontinued due that afib episode was associated with sepsis 04/27 the patient is back to Afib RVR with HR up to 150s then down to 100s agree with increasing metoprolol dose was given one dose of digoxin IV Cardizem drip wean off cardiology recommendation appreciated Elevated Troponin Type II MD Troponin was found incidentally to be mildly elevated above normal limits 106 upto 311. There is no chest pain, nor significant EKG changes. This is likely type2 myocardial infarction secondary to ischemia due to increased oxygen demand and/or decreased supply in the setting of tachycardia . Troponin will be repeated. Further workup, if needed, can be done in an outpatient setting. Acute Urinary Retention Hayden was inserted Impaired mobility and ADL PT/OT has been consulted. Nursing Home Facility,Inpatient Rehab Unit was recommended. INTERVAL HPI:?As Above, Pt resting in bed. no fever Chronic diseases:?Unless mentioned Above, Essential home medications have been continued.? DVT Px:?Addressed Disposition:?To be determined Plan of care Discussed with:?the medical team, the patient at bedside Exam Physical Exam Vital Signs: Temp Pulse Resp BP Pulse Ox O2 Del Method O2 Flow Rate 98.1 F 103 H 24 141/83 H 87 L Nasal Cannula 6 05/11/24 04:19 05/11/24 08:01 05/11/24 08:01 05/11/24 07:56 05/11/24 07:56 05/11/24 08:00 05/11/24 08:00 FiO2 50 05/11/24 04:29 Objective Lab Results 05/11/24 04:40 05/11/24 04:40 Microbiology Results Microbiology 05/05/24 06:33 Blood - Right Antecubital Blood Culture - Final NO GROWTH 5 DAYS 05/05/24 04:10 Blood - Line Blood Culture - Final NO GROWTH 5 DAYS Meds Allergies and Active Meds Allergies gluten Allergy (Unknown, Verified 05/02/24 09:54) Unknown Reaction Active Meds: Active Medications Generic Name Dose Route Start Last Admin Trade Name Freq PRN Reason Stop Dose Admin Acetaminophen 650 mg 05/02/24 17:28 05/09/24 22:00 Acetaminophen 325 Mg Tablet PO 05/02/25 17:27 650 mg Q6H PRN Administration Pain 1-5 or fever Albuterol 2.5 mg 05/08/24 13:37 Albuterol Neb 2.5 Mg/3 Ml Vial.Neb INHALATION 05/02/25 17:26 Q3H PRN shortness of breath or wheezin Albuterol/Ipratropium 3 ml 05/10/24 14:00 05/11/24 07:59 Ipratropium/Albuterol 0.5-3 Mg 3 Ml Ampul.Neb INHALATION 05/10/25 13:59 3 ml TID EDIE Administration Aspirin 81 mg 05/06/24 09:00 05/11/24 08:19 Aspirin 81 Mg Tablet. PO 05/06/25 08:59 81 mg DAILY EDIE Administration Budesonide/Formoterol Fumarate 2 puff 05/02/24 21:00 05/11/24 07:59 Budesonide/Formoterol 160-4.5 Mcg 60 Puff/6 Gm Hfa.Aer.Ad INHALATION 05/02/25 20:59 2 puff BID EDIE Administration Diltiazem HCl 30 mg 05/11/24 09:00 Diltiazem 30 Mg Tablet PO 05/11/25 08:59 QID EDIE Divalproex Sodium 250 mg 05/11/24 09:00 Divalproex Sodium 250 Mg Tablet. PO 05/11/25 08:59 BID EDIE Duloxetine HCl 30 mg 05/02/24 21:00 05/11/24 08:19 Duloxetine 30 Mg Capsule. PO 05/02/25 20:59 30 mg BID EDIE Administration Enoxaparin Sodium 40 mg 05/09/24 13:04 05/10/24 11:55 Enoxaparin 40 Mg/0.4 Ml Syringe SUBCUT 05/09/25 13:03 40 mg DAILY@1000 EDIE Administration Piperacillin Sod/Tazobactam Sod 4.5 gm in 100 mls @ 25 mls/hr 05/08/24 16:00 05/11/24 01:48 Zosyn IV 25 mls/hr Q8H EDIE Administration Diltiazem HCl 100 mg in 100 mls @ 10 mls/hr 05/10/24 21:15 05/11/24 06:30 Cardizem IV 05/10/25 21:14 Not Given .Q10H EDIE Protocol 10 MG/HR Sodium Chloride 100 mls @ 20 mls/hr 05/10/24 21:15 05/11/24 06:33 0.9% Sodium Chloride 100 Ml IV 05/10/25 21:14 Not Given .Q5H EDIE Vancomycin HCl 0.75 gm in 250 mls @ 250 mls/hr 05/11/24 08:00 05/11/24 08:19 Vancomycin IV 250 mls/hr Q12H EDIE Administration Magnesium Oxide 400 mg 05/07/24 16:50 05/11/24 08:19 Magnesium Oxide 400 Mg Tablet PO 05/07/25 16:49 400 mg DAILY EDIE Administration Methylprednisolone Sodium Succinate 40 mg 05/11/24 09:00 Methylprednisolone Sod Succ/Pf 40 Mg/Ml (1ml) Vial IV-PUSH 05/11/25 08:59 Q12HR EDIE Metoprolol Succinate 50 mg 05/08/24 21:00 05/11/24 08:19 Metoprolol Succinate 50 Mg Tab.Er.24h PO 05/08/25 20:59 50 mg BID EDIE Administration Montelukast Sodium 10 mg 05/02/24 22:00 05/10/24 21:45 Montelukast 10 Mg Tablet PO 05/02/25 21:59 Not Given HS EDIE Morphine Sulfate 1 mg 05/08/24 13:37 05/11/24 08:19 Morphine Sulfate 2 Mg/Ml Vial IV-PUSH 1 mg Q4H PRN Administration Pain Scale 7 - 10 Quetiapine Fumarate 25 mg 05/11/24 22:00 Quetiapine Fumarate 25 Mg Tablet PO 05/11/25 21:59 QHS EDIE Sodium Chloride 0 ml 05/02/24 09:53 05/11/24 04:26 Sodium Chloride 0.9 % 10 Ml Syringe IV-PUSH 05/02/25 09:52 10 ml PRN PRN Administration Flush Vancomycin HCl 1 each 05/08/24 11:26 Vancomycin - Pharmacy Dosing 1 Each Miscell IV ONCE PRN ZZ.Pharmacy Consult Protocol A&P - Hospitalist Assessment/Plan (1) Atrial fibrillation with rapid ventricular response: Plan The aforementioned paragraph was documented by my colleague Patient went back into A-fib with RVR requiring the initiation of Cardizem drip by the night team. This morning the patient appears to be more tachypneic. He took his oxygen off and saturation drops to the mid 70s. Patient is lying in bed. Awake and alert. Able to answer yes and no questions. Patient is more awake and coherent compared to yesterday. Able to follow commands. Symmetrical motor and tone. Generalized weakness and fatigue. Patient is tachypneic using accessory muscles. He is on oxygen. Chest exam revealed bilateral rhonchi. Heart is irregular this morning when I saw him. Subsequently patient converted to sinus rhythm. Abdomen soft, nontender. A-fib with RVR Patient converted back to sinus rhythm and overnight he converted back to A-fib with RVR requiring the initiation of Cardizem drip. Patient is on beta-david already. Patient is having increased wheezing this morning which could be related to his pneumonia and or side effect of beta-david for Consider reducing beta-david dose. Instead I started the patient on oral Cardizem. Try to wean down on Cardizem drip. Cardiology team does not recommend full dose anticoagulation. EF is normal Altered mental status, encephalopathy, improved since yesterday MRI could not bedone here at [facility]. This MRI could not be scheduled before May 18. Neurology team recommended repeat CAT scan which does not show any evolution. Neurology team does not recommend any additional workup and investigation believing that his altered mental status is secondary to metabolic encephalopathy. Sepsis, bacteremia UTI, pneumonia, hypoxic respiratory failure Repeat blood cultures are negative. UA is positive for strep and Enterococcus Continue Zosyn. Patient is taken off his nasal cannula. I started him on high flow 45 L, 50% titration to keep saturation between 92 to 94%. Quite impressive infiltration on the chest CT. Worsening respiratory status this morning. Persistent hypoxemia. Patient is onZosyn and vancomycin. I added Solu-Medrol due to severe wheezing and bronchospasm this morning. Continue albuterol and Atrovent. Patient was seen by speech who did not recommend any modification of his diet due to not exhibiting any signs and symptoms of aspiration as per speech. Patient continues to require oxygen supplementation. Hypomagnesemia Additional magnesium supplementation DVT prophylaxis Continue Lovenox and aspirin. Multiple other subacute, chronic medical conditions that could be addressed electively. Patient would likely require skilled care. Pre cert had been submitted Documented By: Hilda Ruiz MD 05/11/24 3071 Signed By: <Electronically signed by Hilda Ruiz MD> 05/11/24843 [facility] Work Phone: 1(575) 124-890601-01-2025 [place] [id number] Hospitalist Progress Note Signed Patient: Juan Simon MR#: [id number] : 1955 Acct:[id number] Age/Sex: 68 / M Adm Date: 4 Loc: 4P Room: [address] [place] [address] Type: ADM IN Attending Dr: Hilda Ruiz MD Copies to: ~ Date of Service: 05/11/2024 Subjective Subjective Narrative: 68M with PMH of Asthma, celiac disease, DJD and chronic back pain s/p spinal cord stimulator and nerve ablations, frequent Falls, migraines, MANUEL who presented with AMS and admitted for the evaluationand treatment of Afib RVR andcirculatory shock Assessment And Plan PNA 04/28 There was hypoxia today CXR showed new infiltrates. switch Abx back to Zosyn and Vancomycin the patient reported abdominal pain today will obtain CTA since he is getting Abd CT too CTA chest shows No acute pulmonary embolus. patchy right upper lung consolidation. Mild patchy leftperihilar consolidation. Small layering pleuraleffusions. Abdominal pain the patient reported abdominal pain today but no pain now. WBC up to 22 CT abd today shows No acute findings. Small bowel bilateral layering pleural effusions. Similar left nephrolithiasis. Supportive Circulatory shock - resolved He was given a total of multiple dose of metoprolol to control his Afib RVR. then he developed hypotension. he was given 3L of IVF. he was started on Levophed. Lactic wnl . he was admitted to the ICU. Pulmonary was consulted for critical care management Strep Bacteremia due to Strep UTI Sepsis due to above Hypotension noted in the ED with tachycardia and mild leukocytosis. he had feverup to 39.5C. he wasstarted on broad spectrum IV antibiotics Lactic acid wnl CXR ED shows no acute cardiopulmonary abnormality Respiratory (Upper) Panel, PCR negative Blood Cx ED 05/02 Strep agalactiae urine Cx shows Enterococcus/Strep agalactiae Follow up Blood Cx 05/03 and 05/[address] Abd shows No acute intra-abdominal process. Small bilateral pleural effusions. ID consult recommendation appreciated Unasyn with Transition to PO Augmentin on DC (Plan of total 14 days) Acute toxic-metabolic encephalopathy Septic encephalopathy with delirium the patient presents with acute confusional state and behavior changes noted by his Urine Tox screen is positive for amphetamine CT brain shows no acute intracranial process Ammonia wnl ABG shows no hypercapnia Could be due to the current infection other causes can't be ruled out Depakote was discontinued due to interaction with his apixaban, doxepin was discontinued given his cardiac dysrhythmia MRI (spinal stimulator is not compatible with the 3T magnet). MRI with 1.5 Teslamachine without contrast pending neurology recommendation appreciated supportive and treatment of the underlying condition Newly diagnosed Paroxysmal Afib with RVR the patient was found to have Afib RVR in the ED with heart rate up to 150s and received multiple doses of metoprolol IV. he converted to NSR in the ED EKG ED 9:45 am shows Afib@146 bpm without significant acute changes. EKG 3:20 pm shows NSR No significant electrolyte Abnormality, Mg 1.8 (replaced) TSH in EMR wnl Echocardiogram EF 60%, Mild he was evaluated by Cardiology; he was started on Beta david, Digoxin and Eliquis, then Digoxin and Eliquis was discontinued due that afib episode was associated with sepsis 04/27 the patient is back to Afib RVR with HR up to 150s then down to 100s agree with increasing metoprolol dose was given one dose of digoxin IV Cardizem drip wean off cardiology recommendation appreciated Elevated Troponin Type II MD Troponin was found incidentally to be mildly elevated above normal limits 106 upto 311. There is nochest pain, nor significant EKG changes. This is likely type2 myocardial infarction secondary to ischemia due to increased oxygen demand and/or decreased supply in the setting of tachycardia . Troponin will be repeated. Further workup, if needed, can be done in an outpatient setting. Acute Urinary Retention Hayden was inserted Impaired mobility and ADL PT/OT has been consulted. Nursing Home Facility,Inpatient Rehab Unit was recommended. INTERVAL HPI:?As Above, Pt resting in bed. no fever Chronic diseases:?Unless mentioned Above, Essential home medications have been continued.? DVT Px:?Addressed Disposition:?To be determined Plan of care Discussed with:?the medical team, the patient at bedside Exam Physical Exam Vital Signs: Temp Pulse Resp BP Pulse Ox O2 Del Method O2 Flow Rate 98.1 F 103 H 24 141/83 H 87 L Nasal Cannula 6 05/11/24 04:19 05/11/24 08:01 05/11/24 08:01 05/11/24 07:56 05/11/24 07:56 05/11/24 08:00 05/11/24 08:00 FiO2 50 05/11/24 04:29 Objective Lab Results 05/11/24 04:40 05/11/24 04:40 Microbiology Results Microbiology 05/05/24 06:33 Blood - Right Antecubital Blood Culture - Final NO GROWTH 5 DAYS 05/05/24 04:10 Blood - Line Blood Culture - Final NO GROWTH 5 DAYS Meds Allergies and Active Meds Allergies gluten Allergy (Unknown, Verified 05/02/24 09:54) Unknown Reaction Active Meds: Active Medications Generic Name Dose Route Start Last Admin Trade Name Korina PRN Reason Stop Dose Admin Acetaminophen 650 mg 05/02/24 17:28 05/09/24 22:00 Acetaminophen 325 Mg Tablet PO 05/02/25 17:27 650 mg Q6H PRN Administration Pain 1-5 or fever Albuterol 2.5 mg 05/08/24 13:37 Albuterol Neb 2.5 Mg/3 Ml Vial.Neb INHALATION 05/02/25 17:26 Q3H PRN shortness of breath or wheezin Albuterol/Ipratropium 3 ml 05/10/24 14:00 05/11/24 07:59 Ipratropium/Albuterol 0.5-3 Mg 3 Ml Ampul.Neb INHALATION 05/10/25 13:59 3 ml TID EDIE Administration Aspirin 81 mg 05/06/24 09:00 05/11/24 08:19 Aspirin 81 Mg Tablet. PO 05/06/25 08:59 81 mg DAILY EDIE Administration Budesonide/Formoterol Fumarate 2 puff 05/02/24 21:00 05/11/24 07:59 Budesonide/Formoterol 160-4.5 Mcg 60 Puff/6 Gm Hfa.Aer.Ad INHALATION 05/02/25 20:59 2 puff BID EDIE Administration Diltiazem HCl 30 mg 05/11/24 09:00 Diltiazem 30 Mg Tablet PO 05/11/25 08:59 QID EDIE Divalproex Sodium 250 mg 05/11/24 09:00 Divalproex Sodium 250 Mg Tablet. PO 05/11/25 08:59 BID EDIE Duloxetine HCl 30 mg 05/02/24 21:00 05/11/24 08:19 Duloxetine 30 Mg Capsule. PO 05/02/25 20:59 30 mg BID EDIE Administration Enoxaparin Sodium 40 mg 05/09/24 13:04 05/10/24 11:55 Enoxaparin 40 Mg/0.4 Ml Syringe SUBCUT 05/09/25 13:03 40 mg DAILY@1000 EDIE Administration Piperacillin Sod/Tazobactam Sod 4.5 gm in 100 mls @ 25 mls/hr 05/08/24 16:00 05/11/24 01:48 Zosyn IV 25 mls/hr Q8H EDIE Administration Diltiazem HCl 100 mg in 100 mls @ 10 mls/hr 05/10/24 21:15 05/11/24 06:30 Cardizem IV 05/10/25 21:14 Not Given .Q10H EDIE Protocol 10 MG/HR Sodium Chloride 100 mls @ 20 mls/hr 05/10/24 21:15 05/11/24 06:33 0.9% Sodium Chloride 100 Ml IV 05/10/25 21:14 Not Given .Q5H EDIE Vancomycin HCl 0.75 gm in 250 mls @ 250 mls/hr 05/11/24 08:00 05/11/24 08:19 Vancomycin IV 250 mls/hr Q12H EDIE Administration Magnesium Oxide 400 mg 05/07/24 16:50 05/11/24 08:19 Magnesium Oxide 400 Mg Tablet PO 05/07/25 16:49 400 mg DAILY EDIE Administration Methylprednisolone Sodium Succinate 40 mg 05/11/24 09:00 Methylprednisolone Sod Succ/Pf 40 Mg/Ml (1ml) Vial IV-PUSH 05/11/25 08:59 Q12HR EDIE Metoprolol Succinate 50 mg 05/08/24 21:00 05/11/24 08:19 Metoprolol Succinate 50 Mg Tab.Er.24h PO 05/08/25 20:59 50 mg BID EDIE Administration Montelukast Sodium 10 mg 05/02/24 22:00 05/10/24 21:45 Montelukast 10 Mg Tablet PO 05/02/25 21:59 Not Given HS EDIE Morphine Sulfate 1 mg 05/08/24 13:37 05/11/24 08:19 Morphine Sulfate 2 Mg/Ml Vial IV-PUSH 1 mg Q4H PRN Administration Pain Scale 7 - 10 Quetiapine Fumarate 25 mg 05/11/24 22:00 Quetiapine Fumarate 25 Mg Tablet PO 05/11/25 21:59 QHS EDIE Sodium Chloride 0 ml 05/02/24 09:53 05/11/24 04:26 Sodium Chloride 0.9 % 10 Ml Syringe IV-PUSH 05/02/25 09:52 10 ml PRN PRN Administration Flush Vancomycin HCl 1 each 05/08/24 11:26 Vancomycin - Pharmacy Dosing 1 Each Miscell IV ONCE PRN ZZ.Pharmacy Consult Protocol A&P - Hospitalist Assessment/Plan (1) Atrial fibrillation with rapid ventricular response: Plan The aforementioned paragraph was documented by my colleague Patient went back into A-fib with RVR requiring the initiation of Cardizem drip by the night team. This morning the patient appears to be more tachypneic. He took his oxygen off and saturation dropsto the mid 70s. Patient is lying in bed. Awake and alert. Able to answer yes and no questions. Patient is more awake and coherent compared to yesterday. Able to follow commands. Symmetrical motor and tone. Generalized weakness and fatigue. Patient is tachypneic using accessory muscles. He is on oxygen. Chest exam revealed bilateral rhonchi. Heart is irregular this morning when I saw him. Subsequently patient converted to sinus rhythm. Abdomen soft, nontender. A-fib with RVR Patient converted back to sinus rhythm and overnight he converted back to A-fib with RVR requiring the initiation of Cardizem drip. Patient is on beta-david already. Patient is having increased wheezing this morning which could be related to his pneumonia and or side effect of beta-david for Consider reducing beta-david dose. Instead I started the patient on oral Cardizem. Try to wean down on Cardizem drip. Cardiology team does not recommend full dose anticoagulation. EF is normal Altered mental status, encephalopathy, improved since yesterday MRI could not bedone here at [facility]. This MRI could not be scheduled before May 18. Neurology team recommended repeat CAT scan which does not show any evolution. Neurology team does not recommend any additional workup and investigation believing that his altered mental status is secondary to metabolic encephalopathy. Sepsis, bacteremia UTI, pneumonia, hypoxic respiratory failure Repeat blood cultures are negative. UA is positive for strep and Enterococcus Continue Zosyn. Patient is taken off his nasal cannula. I started him on high flow 45 L, 50% titration to keep saturation between 92 to 94%. Quite impressive infiltration on the chest CT. Worsening respiratory status this morning. Persistent hypoxemia. Patient is onZosyn and vancomycin.I added Solu-Medrol due to severe wheezing and bronchospasm this morning. Continue albuterol and Atrovent. Patient was seen by speech who did not recommend any modification of his diet due to not exhibitingany signs and symptoms of aspiration as per speech. Patient continues to require oxygen supplementation. Hypomagnesemia Additional magnesium supplementation DVT prophylaxis Continue Lovenox and aspirin. Multiple other subacute, chronic medical conditions that could be addressed electively. Patient would likely require skilled care. Pre cert had been submitted Documented By: Hilda Ruiz MD 05/11/24 0840 Signed By: 05/11/[address] [facility]12-31-2024 Progress note Author Miladis Rodriguez [facility] Note Date/Time May 10, 2024 4:33pm [facility] [address] [place] [address] Pulmonology Progress Note Signed Patient: Juan Simon MR#: [id number] : 1955 Acct:[id number] Age/Sex: 68 / M Adm Date: 4 Loc: 4P Room: [address] [place] [address] Type: ADM IN Attending Dr: Hilda Ruiz MD Copies to: ~ Date of Service: 05/10/2024 Subjective Subjective Narrative: - wore the BIPAP only until midnight then didn't want to continue, ABG this AM shows improved PCO2 clearance and he is more awake and active today - WBC is down to 16 from 22 Exam Physical Exam Vital Signs: Temp Pulse Resp BP Pulse Ox O2 Del Method O2 Flow Rate 97.9 F 96 20 131/86 95 Nasal Cannula 2 05/09/24 20:00 05/10/24 14:13 05/10/24 14:13 05/10/24 11:53 05/10/24 11:53 05/10/24 11:53 05/10/24 11:53 FiO2 30 05/09/24 23:14 Const Other: Gen: Chronically ill appearing not in respiratory distress HENT: EOMI PERRL no thrush Neck: supple no JVD CVS: RRR -m/r/g Lungs: scattered rhonchi and wheezing bilaterally Abd: soft non tender Ext: no LE edema good cap refill Neuro: AOx3 non focal motor and sensory exam Psych: normal affect Objective Intake and Output I&O - Last 24 Hours: Intake & Output 05/09/24 05/10/24 05/10/24 23:59 07:59 15:59 Intake Total 600 / 1450 650 / 650 Output Total 450 / 850 375 / 375 Balance 150 / 600 275 / 275 Labs 05/10/24 05:16 05/10/24 05:16 Microbiology Micro: Microbiology 3 05/05/24 06:33 Blood Culture - Final Blood - Right Antecubital NO GROWTH 5 DAYS 05/05/24 04:10 Blood Culture - Final Blood - Line NO GROWTH 5 DAYS Assessment/Plan Assessment/Plan (1) Sepsis: (2) Atrial fibrillation with rapid ventricular response: (3) Urinary tract infection: (4) Bacteremia due to Streptococcus: Plan - unclear if BIPAP really helped since he took it off around midnight but he is willing to try again tonight - continue broad spectrum atbx, WBC coming down and clinically he is improving - continue nebs and inhalers, hold off on systemic steroids for now - will follow with you Documented By: Miladis Rodriguez MD [id number] Signed By: <Electronically signed by Miladis Rodriguez MD> 05/10/24 [facility] Work Phone: 1([phone]) 586-632512-31-[address] [address] Pulmonology Progress Note Signed Patient: Juan Simon MR#: [id number] : 1955 Acct:[id number] Age/Sex: 68 / M Adm Date: 4 Loc: 4 Room: [address] [place] [address] Type: ADM IN Attending Dr: Hilda Ruiz MD Copies to: ~ Date of Service: 05/10/2024 Subjective Subjective Narrative: - wore the BIPAP only until midnight then didn't want to continue, ABG this AM shows improved PCO2 clearance and he is more awake and active today - WBC is down to 16 from 22 Exam Physical Exam Vital Signs: Temp Pulse Resp BP Pulse Ox O2 Del Method O2 Flow Rate 97.9 F 96 20 131/86 95 Nasal Cannula 2 05/09/24 20:00 05/10/24 14:13 05/10/24 14:13 05/10/24 11:53 05/10/24 11:53 05/10/24 11:53 05/10/24 11:53 FiO2 30 05/09/24 23:14 Const Other: Gen: Chronically ill appearing not in respiratory distress HENT: EOMI PERRL no thrush Neck: supple no JVD CVS: RRR -m/r/g Lungs: scattered rhonchi and wheezing bilaterally Abd: soft non tender Ext: no LE edema good cap refill Neuro: AOx3 non focal motor and sensory exam Psych: normal affect Objective Intake and Output I&O - Last 24 Hours: Intake & Output 05/09/24 05/10/24 05/10/24 23:59 07:59 15:59 Intake Total 600 / 1450 650 / 650 Output Total 450 / 850 375 / 375 Balance 150 / 600 275 / 275 Labs 05/10/24 05:16 05/10/24 05:16 Microbiology Micro: Microbiology 3 05/05/24 06:33 Blood Culture - Final Blood - Right Antecubital NO GROWTH 5 DAYS 05/05/24 04:10 Blood Culture - Final Blood - Line NO GROWTH 5 DAYS Assessment/Plan Assessment/Plan (1) Sepsis: (2) Atrial fibrillation with rapid ventricular response: (3) Urinary tract infection: (4) Bacteremia due to Streptococcus: Plan - unclear if BIPAP really helped since he took it off around midnight but he is willing to try again tonight - continue broad spectrum atbx, WBC coming down and clinically he is improving - continue nebs and inhalers, hold off on systemic steroids for now - will follow with you Documented By: Miladis Rodriguez MD [id number] Signed By: 05/10/[address] [facility]12-31-2024 Progress note Author Judy Mona [facility] Note Date/Time May 10, 2024 2:16pm [facility] [address] [place] [address] Cardiology Progress Note Signed Patient: Juan Simon MR#: [id number] : 1955 Acct:[id number] Age/Sex: 68 / M Adm Date: 4 Loc: Room: [address] [place] [address] Type: ADM IN Attending Dr: Hilda Ruiz MD Copies to: ~ Date of Service: 05/10/2024 Subjective Principal diagnosis: Sepsis, paroxysmal atrial fibrillation Interval history: No acute events overnight. Remains in sinus rhythm. Pt had repeat CT head which did not show evidence of stroke. Exam Physical Exam Vital Signs: Temp Pulse Resp BP Pulse Ox O2 Del Method O2 Flow Rate 97.9 F 99 22 131/86 95 Nasal Cannula 2 05/09/24 20:00 05/10/24 11:53 05/10/24 11:53 05/10/24 11:53 05/10/24 11:53 05/10/24 11:53 05/10/24 11:53 FiO2 30 05/09/24 23:14 Narrative: GEN: Awake and alert Neck: No JVD. Lungs: Clear to auscultation bilaterally Heart: Regular rate and rhythm. Normal S1 and S2. No murmurs or rubs appreciated. Abdomen: Soft, nontender, nondistended, bowel sounds present. Extremities: No BLE edema. Neuro: No focal deficits. Objective Labs 05/10/24 05:16 05/10/24 05:16 Labs: Laboratory Results - last 24 hr 05/10/24 05/10/24 05:16 10:56 Corrected WBC 16.0 H Uncorrected WBC Count 16.0 H RBC 3.85 L Hgb 12.2 L Hct 36.8 L MCV 95.4 MCH 31.7 MCHC 33.2 RDW 15.1 H Plt Count 456 H MPV 6.8 Neut % (Auto) 78.5 Lymph % (Auto) 12.1 [place] % (Auto) 7.8 Eos % (Auto) 0.7 Baso % (Auto) 0.9 Nucleat RBC Rel Count 0.0 Neut # (Auto) 12.6 H Lymph # (Auto) 1.9 [place] # (Auto) 1.2 H Eos # (Auto) 0.1 Baso # (Auto) 0.1 Sample Site Right radial ABG pH 7.49 H ABG pCO2 39.9 ABG pO2 79.0 L ABG HCO3 29.7 H ABG Total CO2 30.9 H ABG O2 Saturation 95.6 ABG O2 Content 7.4 ABG Base Excess 5.9 H O2 Delivery Device Nasal cannula FiO2 32 Critical Value PHA Creatinine Clear 94.44 Sodium 132 L Potassium 4.0 Chloride 92 L Carbon Dioxide 34.4 H Anion Gap 9.6 BUN 14 Creatinine 0.75 Est GFR (CKD-EPI) > 60.0 Glucose 101 H Calcium 8.4 L Phosphorus 3.8 Magnesium 1.8 L Total Bilirubin 0.8 AST 24 ALT 28 Alkaline Phosphatase 79 Total Protein 5.9 L Albumin 2.8 L Globulin 3.1 Albumin/Globulin Ratio 0.9 ABG Interpretation ABG results: 05/10/24 10:56 ABG pH 7.49 H ABG pCO2 39.9 ABG pO2 79.0 L ABG HCO3 29.7 H ABG Total CO2 30.9 H ABG O2 Saturation 95.6 ABG O2 Content 7.4 ABG Base Excess 5.9 H A&P - Cardiology (1) Atrial fibrillation with rapid ventricular response: Assessment/Problem Details: Likely paroxysmal atrial fibrillation in the setting of an elevated catecholamine state during systemic sepsis. Now converted back to normal sinus mechanism. Code(s): I48.91 - Unspecified atrial fibrillation (2) Bacteremia due to Streptococcus: Code(s): R78.81 - Bacteremia; B95.5 - Unspecified streptococcus as the cause of diseases classified elsewhere (3) Sepsis: Code(s): A41.9 - Sepsis, unspecified organism (4) Altered mental status: Qualifiers: Altered mental status type: delirium Qualified Code(s): R41.0 - Disorientation, unspecified Code(s): R41.82 - Altered mental status, unspecified (5) Community acquired pneumonia: Code(s): J18.9 - Pneumonia, unspecified organism (6) Urinary tract infection: Code(s): N39.0 - Urinary tract infection, site not specified Plan Assessment: # UTI with bacteremia # Pneumonia - On 05/08/24 he had an episode of hypoxia and agitation with new right infiltrates on CXR possibly due to aspiration. # Paroxysmal nonvalvular A-fib ? [id number] is 1. He had converted back to NSRthen went back into AFib due to sepsis and respiratory issues. # Other: T-cell lymphoma, celiac disease, Obesity. Echo 05/02/2024 ? EF 55-60%, normal LV size and thickness, normal diastolic function, mildly dilated LA, mild . Recommendations: - Remains in normal sinus rhythm with PACs. - Continue Toprol 50 mg twice daily. - No evidence of CVA on repeat CT head. No indication for anticoagulation. - Will arrange for [facility] cardiology follow up in 6 weeks. - Will sign off. Please call with questions. Documented By: Judy Dunn MD 05/10/24 1410 Signed By: <Electronically signed by Judy Dunn MD> 05/10/24 1416 [facility] Work Phone: 1(527) 522-532412-31-2024 Progress note Author Hilda Ruiz [facility] Note Date/Time May 10, 2024 12:38pm [facility] [address] [place] [address] Hospitalist Progress Note Signed Patient: Juan Simon MR#: [id number] : 1955 Acct:[id number] Age/Sex: 68 / M Adm Date: 4 Loc: 4 Room: [address] [place] [address] Type: ADM IN Attending Dr: Hilda Ruiz MD Copies to: ~ Date of Service: 05/10/2024 Subjective Subjective Narrative: 68M with PMH of Asthma, celiac disease, DJD and chronic back pain s/p spinal cord stimulator and nerve ablations, frequent Falls, migraines, MANUEL who presented with AMS and admitted for the evaluation and treatment of Afib RVR andcirculatory shock Assessment And Plan PNA 04/28 There was hypoxia today CXR showed new infiltrates. switch Abx back to Zosyn and Vancomycin the patient reported abdominal pain today will obtain CTA since he is getting Abd CT too CTA chest shows No acute pulmonary embolus. patchy right upper lung consolidation. Mild patchy left perihilar consolidation. Small layering pleuraleffusions. Abdominal pain the patient reported abdominal pain today but no pain now. WBC up to 22 CT abd today shows No acute findings. Small bowel bilateral layering pleural effusions. Similar left nephrolithiasis. Supportive Circulatory shock - resolved He was given a total of multiple dose of metoprolol to control his Afib RVR. then he developed hypotension. he was given 3L of IVF. he was started on Levophed. Lactic wnl . he was admitted to the ICU . Pulmonary was consulted for critical care management Strep Bacteremia due to Strep UTI Sepsis due to above Hypotension noted in the ED with tachycardia and mild leukocytosis. he had feverup to 39.5C. he was started on broad spectrum IV antibiotics Lactic acid wnl CXR ED shows no acute cardiopulmonary abnormality Respiratory (Upper) Panel, PCR negative Blood Cx ED 05/02 Strep agalactiae urine Cx shows Enterococcus/Strep agalactiae Follow up Blood Cx 05/03 and 05/[address] Abd shows No acute intra-abdominal process. Small bilateral pleural effusions. ID consult recommendation appreciated Unasyn with Transition to PO Augmentin on DC (Plan of total 14 days) Acute toxic-metabolic encephalopathy Septic encephalopathy with delirium the patient presents with acute confusional state and behavior changes noted by his Urine Tox screen is positive for amphetamine CT brain shows no acute intracranial process Ammonia wnl ABG shows no hypercapnia Could be due to the current infection other causes can't be ruled out Depakote was discontinued due to interaction with his apixaban, doxepin was discontinued given his cardiac dysrhythmia MRI (spinal stimulator is not compatible with the 3T magnet). MRI with 1.5 Teslamachine without contrast pending neurology recommendation appreciated supportive and treatment of the underlying condition Newly diagnosed Paroxysmal Afib with RVR the patient was found to have Afib RVR in the ED with heart rate up to 150s and received multiple doses of metoprolol IV. he converted to NSR in the ED EKG ED 9:45 am shows Afib@146 bpm without significant acute changes. EKG 3:20 pm shows NSR No significant electrolyte Abnormality, Mg 1.8 (replaced) TSH in EMR wnl Echocardiogram EF 60%, Mild he was evaluated by Cardiology; he was started on Beta david, Digoxin and Eliquis, then Digoxin and Eliquis was discontinued due that afib episode was associated with sepsis 04/27 the patient is back to Afib RVR with HR up to 150s then down to 100s agree with increasing metoprolol dose was given one dose of digoxin IV Cardizem drip wean off cardiology recommendation appreciated Elevated Troponin Type II MD Troponin was found incidentally to be mildly elevated above normal limits 106 upto 311. There is no chest pain, nor significant EKG changes. This is likely type2 myocardial infarction secondary to ischemia due to increased oxygen demand and/or decreased supply in the setting of tachycardia . Troponin will be repeated. Further workup, if needed, can be done in an outpatient setting. Acute Urinary Retention Hayden was inserted Impaired mobility and ADL PT/OT has been consulted. Nursing Home Facility,Inpatient Rehab Unit was recommended. INTERVAL HPI:?As Above, Pt resting in bed. no fever Chronic diseases:?Unless mentioned Above, Essential home medications have been continued.? DVT Px:?Addressed Disposition:?To be determined Plan of care Discussed with:?the medical team, the patient at bedside Exam Physical Exam Vital Signs: Temp Pulse Resp BP Pulse Ox O2 Del Method O2 Flow Rate 97.9 F 99 22 131/86 95 Nasal Cannula 2 05/09/24 20:00 05/10/24 11:53 05/10/24 11:53 05/10/24 11:53 05/10/24 11:53 05/10/24 11:53 05/10/24 11:53 FiO2 30 05/09/24 23:14 Objective Lab Results 05/10/24 05:16 05/10/24 05:16 Microbiology Results Microbiology 05/05/24 06:33 Blood - Right Antecubital Blood Culture - Final NO GROWTH 5 DAYS 05/05/24 04:10 Blood - Line Blood Culture - Final NO GROWTH 5 DAYS ABG Interpretation ABG results: 05/10/24 10:56 ABG pH 7.49 H ABG pCO2 39.9 ABG pO2 79.0 L ABG HCO3 29.7 H ABG Total CO2 30.9 H ABG O2 Saturation 95.6 ABG O2 Content 7.4 ABG Base Excess 5.9 H Meds Allergies and Active Meds Allergies gluten Allergy (Unknown, Verified 05/02/24 09:54) Unknown Reaction Active Meds: Active Medications Generic Name Dose Route Start Last Admin Trade Name Freq PRN Reason Stop Dose Admin Acetaminophen 650 mg 05/02/24 17:28 05/09/24 22:00 Acetaminophen 325 Mg Tablet PO 05/02/25 17:27 650 mg Q6H PRN Administration Pain 1-5 or fever Albuterol 2.5 mg 05/08/24 13:37 Albuterol Neb 2.5 Mg/3 Ml Vial.Neb INHALATION 05/02/25 17:26 Q3H PRN shortness of breath or wheezin Albuterol/Ipratropium 3 ml 05/10/24 14:00 Ipratropium/Albuterol 0.5-3 Mg 3 Ml Ampul.Neb INHALATION 05/10/25 13:59 TID EDIE Aspirin 81 mg 05/06/24 09:00 05/10/24 08:31 Aspirin 81 Mg Tablet. PO 05/06/25 08:59 81 mg DAILY EDIE Administration Budesonide/Formoterol Fumarate 2 puff 05/02/24 21:00 05/10/24 05:16 Budesonide/Formoterol 160-4.5 Mcg 60 Puff/6 Gm Hfa.Aer.Ad INHALATION 05/02/25 20:59 2 puff BID EDIE Administration Duloxetine HCl 30 mg 05/02/24 21:00 05/10/24 08:31 Duloxetine 30 Mg Capsule. PO 05/02/25 20:59 30 mg BID EDIE Administration Enoxaparin Sodium 40 mg 05/09/24 13:04 05/10/24 11:55 Enoxaparin 40 Mg/0.4 Ml Syringe SUBCUT 05/09/25 13:03 40 mg DAILY@1000 EDIE Administration Piperacillin Sod/Tazobactam Sod 4.5 gm in 100 mls @ 25 mls/hr 05/08/24 16:00 05/10/24 08:31 Zosyn IV 25 mls/hr Q8H EDIE Administration Vancomycin HCl 1.25 gm/ 275 mls @ 183.333 mls/hr 05/09/24 00:30 05/10/24 11:55 Dextrose IV 05/09/25 00:29 183.33 mls/hr Q12H EDIE Administration Magnesium Sulfate/Dextrose 1 gm in 100 mls @ 100 mls/hr 05/10/24 12:33 Magnesium Sulfate 1 Gm-*D5w* IV 05/10/24 13:32 ONCE ONE Magnesium Oxide 400 mg 05/07/24 16:50 05/10/24 08:31 Magnesium Oxide 400 Mg Tablet PO 05/07/25 16:49 400 mg DAILY EDIE Administration Metoprolol Succinate 50 mg 05/08/24 21:00 05/10/24 08:31 Metoprolol Succinate 50 Mg Tab.Er.24h PO 05/08/25 20:59 50 mg BID EDIE Administration Montelukast Sodium 10 mg 05/02/24 22:00 05/09/24 21:59 Montelukast 10 Mg Tablet PO 05/02/25 21:59 10 mg HS EDIE Administration Morphine Sulfate 1 mg 05/08/24 13:37 05/08/24 18:19 Morphine Sulfate 2 Mg/Ml Vial IV-PUSH 1 mg Q4H PRN Administration Pain Scale 7 - 10 Quetiapine Fumarate 12.5 mg 05/05/24 22:00 05/09/24 21:59 Quetiapine Fumarate 12.5 Mg Tablet PO 05/05/25 21:59 12.5 mg QHS EDIE Administration Sodium Chloride 0 ml 05/02/24 09:53 05/09/24 06:43 Sodium Chloride 0.9 % 10 Ml Syringe IV-PUSH 05/02/25 09:52 10 ml PRN PRN Administration Flush Vancomycin HCl 1 each 05/08/24 11:26 Vancomycin - Pharmacy Dosing 1 Each Miscell IV ONCE PRN ZZ.Pharmacy Consult Protocol A&P - Hospitalist Assessment/Plan (1) Atrial fibrillation with rapid ventricular response: Plan Patient is lying in bed. Awake and alert. Able to answer yes and no questions. Patient is more awake and coherent compared to yesterday. Able to follow commands. Symmetrical motor and tone. Generalized weakness and fatigue. Patient is tachypneic using accessory muscles. He is on oxygen. Chest exam revealed bilateral rhonchi. Heart is irregular this morning when I saw him. Subsequently patient converted to sinus rhythm. Abdomen soft, nontender. A-fib with RVR Patient converted to sinus rhythm. Continue high-dose beta-david as recommended by cardiology. Director Human Services recommended to take him off anticoagulation and continue aspirin. Will follow cardiologists recommendation given their expertise. Altered mental status, encephalopathy, improved since yesterday MRI could not bedone here at [facility]. This MRI could not be scheduled before May 18. Neurology team recommended repeat CAT scan which does not show any evolution. Neurology team does not recommend any additional workup and investigation believing that his altered mental status is secondary to metabolic encephalopathy. Sepsis, UTI, pneumonia, hypoxic respiratory failure Blood cultures pending. UA is positive for strep and Enterococcus Continue Zosyn. Quite impressive infiltration on the chest CT. Patient was seen by speech who did not recommend any modification of his diet due to not exhibiting any signs and symptoms of aspiration as per speech. Patient continues to require oxygen supplementation. Hypomagnesemia Additional magnesium supplementation Multiple other subacute, chronic medical conditions that could be addressed electively. Patient would likely require skilled care. Pre cert had been submitted this afternoon. Documented By: Hilda Ruiz MD 05/10/24 1236 Signed By: <Electronically signed by Hilda Ruiz MD> 05/10/24 1238 [facility] Work Phone: [phone]) 865-767912-31-2024 [place] [address] Cardiology Progress Note Signed Patient: Juan Simon MR#: [id number] : 1955 Acct:[id number] Age/Sex: 68 / M Adm Date: 4 Loc: 4 Room: [address] [place] [address] Type: ADM IN Attending Dr: Hilda Ruiz MD Copies to: ~ Date of Service: 05/10/2024 Subjective Principal diagnosis: Sepsis, paroxysmal atrial fibrillation Interval history: No acute events overnight. Remains in sinus rhythm. Pt had repeat CT head which did not show evidence of stroke. Exam Physical Exam Vital Signs: Temp Pulse Resp BP Pulse Ox O2 Del Method O2 Flow Rate 97.9 F 99 22 131/86 95 Nasal Cannula 2 05/09/24 20:00 05/10/24 11:53 05/10/24 11:53 05/10/24 11:53 05/10/24 11:53 05/10/24 11:53 05/10/24 11:53 FiO2 30 05/09/24 23:14 Narrative: GEN: Awake and alert Neck: No JVD. Lungs: Clear to auscultation bilaterally Heart: Regular rate and rhythm. Normal S1 and S2. No murmurs or rubs appreciated. Abdomen: Soft, nontender, nondistended, bowel sounds present. Extremities: No BLE edema. Neuro: No focal deficits. Objective Labs 05/10/24 05:16 05/10/24 05:16 Labs: Laboratory Results - last 24 hr 05/10/24 05/10/24 05:16 10:56 Corrected WBC 16.0 H Uncorrected WBC Count 16.0 H RBC 3.85 L Hgb 12.2 L Hct 36.8 L MCV 95.4 MCH 31.7 MCHC 33.2 RDW 15.1 H Plt Count 456 H MPV 6.8 Neut % (Auto) 78.5 Lymph % (Auto) 12.1 [place] % (Auto) 7.8 Eos % (Auto) 0.7 Baso % (Auto) 0.9 Nucleat RBC Rel Count 0.0 Neut # (Auto) 12.6 H Lymph # (Auto) 1.9 [place] # (Auto) 1.2 H Eos # (Auto) 0.1 Baso # (Auto) 0.1 Sample Site Right radial ABG pH 7.49 H ABG pCO2 39.9 ABG pO2 79.0 L ABG HCO3 29.7 H ABG Total CO2 30.9 H ABG O2 Saturation 95.6 ABG O2 Content 7.4 ABG Base Excess 5.9 H O2 Delivery Device Nasal cannula FiO2 32 Critical Value PHA Creatinine Clear 94.44 Sodium 132 L Potassium 4.0 Chloride 92 L Carbon Dioxide 34.4 H Anion Gap 9.6 BUN 14 Creatinine 0.75 Est GFR (CKD-EPI) > 60.0 Glucose 101 H Calcium 8.4 L Phosphorus 3.8 Magnesium 1.8 L Total Bilirubin 0.8 AST 24 ALT 28 Alkaline Phosphatase 79 Total Protein 5.9 L Albumin 2.8 L Globulin 3.1 Albumin/Globulin Ratio 0.9 ABG Interpretation ABG results: 05/10/24 10:56 ABG pH 7.49 H ABG pCO2 39.9 ABG pO2 79.0 L ABG HCO3 29.7 H ABG Total CO2 30.9 H ABG O2 Saturation 95.6 ABG O2 Content 7.4 ABG Base Excess 5.9 H A&P - Cardiology (1) Atrial fibrillation with rapid ventricular response: Assessment/Problem Details: Likely paroxysmal atrial fibrillation in the setting of an elevated catecholamine state during systemic sepsis. Now converted back to normal sinus mechanism. Code(s): I48.91 - Unspecified atrial fibrillation (2) Bacteremia due to Streptococcus: Code(s): R78.81 - Bacteremia; B95.5 - Unspecified streptococcus as the cause of diseases classified elsewhere (3) Sepsis: Code(s): A41.9 - Sepsis, unspecified organism (4) Altered mental status: Qualifiers: Altered mental status type: delirium Qualified Code(s): R41.0 - Disorientation, unspecified Code(s): R41.82 - Altered mental status, unspecified (5) Community acquired pneumonia: Code(s): J18.9 - Pneumonia, unspecified organism (6) Urinary tract infection: Code(s): N39.0 - Urinary tract infection, site not specified Plan Assessment: # UTI with bacteremia # Pneumonia - On 05/08/24 he had an episode of hypoxia and agitation with new right infiltrates on CXR possibly due to aspiration. # Paroxysmal nonvalvular A-fib ? [id number] is 1. He had converted back to NSRthen went back intoAFib due to sepsis and respiratory issues. # Other: T-cell lymphoma, celiac disease, Obesity. Echo 05/02/2024 ? EF 55-60%, normal LV size and thickness, normal diastolic function, mildly dilated LA, mild . Recommendations: - Remains in normal sinus rhythm with PACs. - Continue Toprol 50 mg twice daily. - No evidence of CVA on repeat CT head. No indication for anticoagulation. - Will arrange for [facility] cardiology follow up in 6 weeks. - Will sign off. Please call with questions. Documented By: Judy Dunn MD 05/10/24 1410 Signed By: 05/10/[address] [facility]12-31-[address] [address] Hospitalist Progress Note Signed Patient: Juan Simon MR#: [id number] : 1955 Acct:[id number] Age/Sex: 68 / M Adm Date: 4 Loc: 4 Room: [address] [place] [address] Type: ADM IN Attending Dr: Hilda Ruiz MD Copies to: ~ Date of Service: 05/10/2024 Subjective Subjective Narrative: 68M with PMH of Asthma, celiac disease, DJD and chronic back pain s/p spinal cord stimulator and nerve ablations, frequent Falls, migraines, MANUEL who presented with AMS and admitted for the evaluationand treatment of Afib RVR andcirculatory shock Assessment And Plan PNA 04/28 There was hypoxia today CXR showed new infiltrates. switch Abx back to Zosyn and Vancomycin the patient reported abdominal pain today will obtain CTA since he is getting Abd CT too CTA chest shows No acute pulmonary embolus. patchy right upper lung consolidation. Mild patchy leftperihilar consolidation. Small layering pleuraleffusions. Abdominal pain the patient reported abdominal pain today but no pain now. WBC up to 22 CT abd today shows No acute findings. Small bowel bilateral layering pleural effusions. Similar left nephrolithiasis. Supportive Circulatory shock - resolved He was given a total of multiple dose of metoprolol to control his Afib RVR. then he developed hypotension. he was given 3L of IVF. he was started on Levophed. Lactic wnl . he was admitted to the ICU. Pulmonary was consulted for critical care management Strep Bacteremia due to Strep UTI Sepsis due to above Hypotension noted in the ED with tachycardia and mild leukocytosis. he had feverup to 39.5C. he wasstarted on broad spectrum IV antibiotics Lactic acid wnl CXR ED shows no acute cardiopulmonary abnormality Respiratory (Upper) Panel, PCR negative Blood Cx ED 05/02 Strep agalactiae urine Cx shows Enterococcus/Strep agalactiae Follow up Blood Cx 05/03 and 05/[address] Abd shows No acute intra-abdominal process. Small bilateral pleural effusions. ID consult recommendation appreciated Unasyn with Transition to PO Augmentin on DC (Plan of total 14 days) Acute toxic-metabolic encephalopathy Septic encephalopathy with delirium the patient presents with acute confusional state and behavior changes noted by his Urine Tox screen is positive for amphetamine CT brain shows no acute intracranial process Ammonia wnl ABG shows no hypercapnia Could be due to the current infection other causes can't be ruled out Depakote was discontinued due to interaction with his apixaban, doxepin was discontinued given his cardiac dysrhythmia MRI (spinal stimulator is not compatible with the 3T magnet). MRI with 1.5 Teslamachine without contrast pending neurology recommendation appreciated supportive and treatment of the underlying condition Newly diagnosed Paroxysmal Afib with RVR the patient was found to have Afib RVR in the ED with heart rate up to 150s and received multiple doses of metoprolol IV. he converted to NSR in the ED EKG ED 9:45 am shows Afib@146 bpm without significant acute changes. EKG 3:20 pm shows NSR No significant electrolyte Abnormality, Mg 1.8 (replaced) TSH in EMR wnl Echocardiogram EF 60%, Mild he was evaluated by Cardiology; he was started on Beta david, Digoxin and Eliquis, then Digoxin and Eliquis was discontinued due that afib episode was associated with sepsis 04/27 the patient is back to Afib RVR with HR up to 150s then down to 100s agree with increasing metoprolol dose was given one dose of digoxin IV Cardizem drip wean off cardiology recommendation appreciated Elevated Troponin Type II MD Troponin was found incidentally to be mildly elevated above normal limits 106 upto 311. There is nochest pain, nor significant EKG changes. This is likely type2 myocardial infarction secondary to ischemia due to increased oxygen demand and/or decreased supply in the setting of tachycardia . Troponin will be repeated. Further workup, if needed, can be done in an outpatient setting. Acute Urinary Retention Hayden was inserted Impaired mobility and ADL PT/OT has been consulted. Nursing Home Facility,Inpatient Rehab Unit was recommended. INTERVAL HPI:?As Above, Pt resting in bed. no fever Chronic diseases:?Unless mentioned Above, Essential home medications have been continued.? DVT Px:?Addressed Disposition:?To be determined Plan of care Discussed with:?the medical team, the patient at bedside Exam Physical Exam Vital Signs: Temp Pulse Resp BP Pulse Ox O2 Del Method O2 Flow Rate 97.9 F 99 22 131/86 95 Nasal Cannula 2 05/09/24 20:00 05/10/24 11:53 05/10/24 11:53 05/10/24 11:53 05/10/24 11:53 05/10/24 11:53 05/10/24 11:53 FiO2 30 05/09/24 23:14 Objective Lab Results 05/10/24 05:16 05/10/24 05:16 Microbiology Results Microbiology 05/05/24 06:33 Blood - Right Antecubital Blood Culture - Final NO GROWTH 5 DAYS 05/05/24 04:10 Blood - Line Blood Culture - Final NO GROWTH 5 DAYS ABG Interpretation ABG results: 05/10/24 10:56 ABG pH 7.49 H ABG pCO2 39.9 ABG pO2 79.0 L ABG HCO3 29.7 H ABG Total CO2 30.9 H ABG O2 Saturation 95.6 ABG O2 Content 7.4 ABG Base Excess 5.9 H Meds Allergies and Active Meds Allergies gluten Allergy (Unknown, Verified 05/02/24 09:54) Unknown Reaction Active Meds: Active Medications Generic Name Dose Route Start Last Admin Trade Name Freq PRN Reason Stop Dose Admin Acetaminophen 650 mg 05/02/24 17:28 05/09/24 22:00 Acetaminophen 325 Mg Tablet PO 05/02/25 17:27 650 mg Q6H PRN Administration Pain 1-5 or fever Albuterol 2.5 mg 05/08/24 13:37 Albuterol Neb 2.5 Mg/3 Ml Vial.Neb INHALATION 05/02/25 17:26 Q3H PRN shortness of breath or wheezin Albuterol/Ipratropium 3 ml 05/10/24 14:00 Ipratropium/Albuterol 0.5-3 Mg 3 Ml Ampul.Neb INHALATION 05/10/25 13:59 TID EDIE Aspirin 81 mg 05/06/24 09:00 05/10/24 08:31 Aspirin 81 Mg Tablet. PO 05/06/25 08:59 81 mg DAILY EDIE Administration Budesonide/Formoterol Fumarate 2 puff 05/02/24 21:00 05/10/24 05:16 Budesonide/Formoterol 160-4.5 Mcg 60 Puff/6 Gm Hfa.Aer.Ad INHALATION 05/02/25 20:59 2 puff BID EDIE Administration Duloxetine HCl 30 mg 05/02/24 21:00 05/10/24 08:31 Duloxetine 30 Mg Capsule. PO 05/02/25 20:59 30 mg BID EDIE Administration Enoxaparin Sodium 40 mg 05/09/24 13:04 05/10/24 11:55 Enoxaparin 40 Mg/0.4 Ml Syringe SUBCUT 05/09/25 13:03 40 mg DAILY@1000 EDIE Administration Piperacillin Sod/Tazobactam Sod 4.5 gm in 100 mls @ 25 mls/hr 05/08/24 16:00 05/10/24 08:31 Zosyn IV 25 mls/hr Q8H EDIE Administration Vancomycin HCl 1.25 gm/ 275 mls @ 183.333 mls/hr 05/09/24 00:30 05/10/24 11:55 Dextrose IV 05/09/25 00:29 183.33 mls/hr Q12H EDIE Administration Magnesium Sulfate/Dextrose 1 gm in 100 mls @ 100 mls/hr 05/10/24 12:33 Magnesium Sulfate 1 Gm-*D5w* IV 05/10/24 13:32 ONCE ONE Magnesium Oxide 400 mg 05/07/24 16:50 05/10/24 08:31 Magnesium Oxide 400 Mg Tablet PO 05/07/25 16:49 400 mg DAILY EDIE Administration Metoprolol Succinate 50 mg 05/08/24 21:00 05/10/24 08:31 Metoprolol Succinate 50 Mg Tab.Er.24h PO 05/08/25 20:59 50 mg BID EDIE Administration Montelukast Sodium 10 mg 05/02/24 22:00 05/09/24 21:59 Montelukast 10 Mg Tablet PO 05/02/25 21:59 10 mg HS EDIE Administration Morphine Sulfate 1 mg 05/08/24 13:37 05/08/24 18:19 Morphine Sulfate 2 Mg/Ml Vial IV-PUSH 1 mg Q4H PRN Administration Pain Scale 7 - 10 Quetiapine Fumarate 12.5 mg 05/05/24 22:00 05/09/24 21:59 Quetiapine Fumarate 12.5 Mg Tablet PO 05/05/25 21:59 12.5 mg QHS EDIE Administration Sodium Chloride 0 ml 05/02/24 09:53 05/09/24 06:43 Sodium Chloride 0.9 % 10 Ml Syringe IV-PUSH 05/02/25 09:52 10 ml PRN PRN Administration Flush Vancomycin HCl 1 each 05/08/24 11:26 Vancomycin - Pharmacy Dosing 1 Each Miscell IV ONCE PRN ZZ.Pharmacy Consult Protocol A&P - Hospitalist Assessment/Plan (1) Atrial fibrillation with rapid ventricular response: Plan Patient is lying in bed. Awake and alert. Able to answer yes and no questions. Patient is more awake and coherent compared to yesterday. Able to follow commands. Symmetrical motor and tone. Generalized weakness and fatigue. Patient is tachypneic using accessory muscles. He is on oxygen. Chest exam revealed bilateral rhonchi. Heart is irregular this morning when I saw him. Subsequently patient converted to sinus rhythm. Abdomen soft, nontender. A-fib with RVR Patient converted to sinus rhythm. Continue high-dose beta-david as recommended by cardiology. Director Human Services recommended to take him off anticoagulation and continue aspirin. Will follow cardiologists recommendation given their expertise. Altered mental status, encephalopathy, improved since yesterday MRI could not bedone here at [facility]. This MRI could not be scheduled before May 18. Neurology team recommended repeat CAT scan which does not show any evolution. Neurology team does not recommend any additional workup and investigation believing that his altered mental status is secondary to metabolic encephalopathy. Sepsis, UTI, pneumonia, hypoxic respiratory failure Blood cultures pending. UA is positive for strep and Enterococcus Continue Zosyn. Quite impressive infiltration on the chest CT. Patient was seen by speech who did not recommend any modification of his diet due to not exhibitingany signs and symptoms of aspiration as per speech. Patient continues to require oxygen supplementation. Hypomagnesemia Additional magnesium supplementation Multiple other subacute, chronic medical conditions that could be addressed electively. Patient would likely require skilled care. Pre cert had been submitted this afternoon. Documented By: Hilda Ruiz MD 05/10/24 1236 Signed By: 05/10/[address] [facility]12-31-2024 Progress note Author Jimmy Gonzalez [facility] Note Date/Time May 10, 2024 10:06am [facility] [address] [place] [address] Neurology Progress Note Signed Patient: Juan Simon MR#: [id number] : 1955 Acct:[id number] Age/Sex: 68 / M Adm Date: 4 Loc: Room: [address] [place] [address] Type: ADM IN Attending Dr: Hilda Ruiz MD Copies to: ~ Date of Service: 05/10/2024 Subjective Subjective Narrative: Patient is unable to have MRI at this time. As such, we opted to repeat CT scanof the brain. This was completed yesterday. Patient continues to be treated for bacteremia secondary to UTI and also with evidence of pneumonia with vancomycin and Zosyn along with BiPAP trial and steroids per pulmonary. Cardiology also saw the patient. They were awaiting imaging results. No obvious stroke of been identified. As such they do not recommend anticoagulation at this time and I am inclined to agree with this Patient was sitting up this morning and talking to me.He was using the restroom and acknowledge me when I came in and answer questions. He looked better to me substantially today as compared to yesterday. It appeared that he was eating.Hehad no new concerns for me. Review of Systems Review of Systems Unobtainable due to mental status and Unobtainable due to mental condition Exam Physical Exam Vital Signs: Temp Pulse Resp BP Pulse Ox O2 Del Method O2 Flow Rate 97.9 F 98 20 130/73 96 Nasal Cannula 3 05/09/24 20:00 05/10/24 08:30 05/10/24 08:30 05/10/24 08:30 05/10/24 08:30 05/10/24 08:30 05/10/24 08:30 FiO2 30 05/09/24 23:14 Narrative: EXAMINATION: Patient awake alert and oriented x 2 Receptive and expressive language are intact. Attention is poor Cranial nerves grossly intact Patient able to move all 4 extremities without obvious focal deficit. Formal power testing not possible. Reflexes depressed Coordination and gait not able to be tested Objective Vital Signs Vital Signs: Vital Signs - 24 hr 05/09/24 08:50 05/09/24 08:53 05/09/24 11:37 Temperature Pulse Rate 88 Respiratory Rate Blood Pressure 109/70 02 Sat by Pulse Oximetry 93 L Oxygen Delivery Method Nasal Cannula Nasal Cannula Oxygen Flow Rate 6 5 Fraction of Inspired Oxygen 05/09/24 11:37 05/09/24 12:33 05/09/24 12:40 Temperature 97.7 F Pulse Rate 87 94 89 Respiratory Rate 20 28 H Blood Pressure 105/68 105/68 02 Sat by Pulse Oximetry 94 L Oxygen Delivery Method Nasal Cannula Oxygen Flow Rate 5 Fraction of Inspired Oxygen 05/09/24 15:53 05/09/24 16:03 05/09/24 16:03 Temperature 98.5 F Pulse Rate 99 103 H Respiratory Rate 32 H 24 Blood Pressure 112/78 02 Sat by Pulse Oximetry 92 L 93 L Oxygen Delivery Method Nasal Cannula Nasal Cannula Oxygen Flow Rate 3 3 Fraction of Inspired Oxygen 05/09/24 16:08 05/09/24 17:25 05/09/24 20:00 Temperature 97.9 F Pulse Rate 98 98 Respiratory Rate 26 H 11 L Blood Pressure 118/61 02 Sat by Pulse Oximetry 96 96 Oxygen Delivery Method Nasal Cannula Nasal Cannula Oxygen Flow Rate 3 3 Fraction of Inspired Oxygen 30 05/09/24 20:00 05/09/24 20:57 05/09/24 21:09 Temperature Pulse Rate 107 H 114 H Respiratory Rate 24 22 Blood Pressure 02 Sat by Pulse Oximetry Oxygen Delivery Method Nasal Cannula Oxygen Flow Rate 3 Fraction of Inspired Oxygen 05/09/24 22:05 05/09/24 22:13 05/09/24 23:14 Temperature Pulse Rate 100 106 H 101 H Respiratory Rate 26 H 24 32 H Blood Pressure 02 Sat by Pulse Oximetry 93 L 93 L 92 L Oxygen Delivery Method Oxygen Flow Rate Fraction of Inspired Oxygen 30 30 30 05/10/24 00:00 05/10/24 00:00 05/10/24 00:00 Temperature Pulse Rate 97 Respiratory Rate 20 Blood Pressure 131/82 02 Sat by Pulse Oximetry 95 Oxygen Delivery Method BiPAP Nasal Cannula Nasal Cannula Oxygen Flow Rate 3 4 Fraction of Inspired Oxygen 05/10/24 04:00 05/10/24 05:18 05/10/24 05:26 Temperature Pulse Rate 97 99 100 Respiratory Rate 22 22 Blood Pressure 02 Sat by Pulse Oximetry 94 L Oxygen Delivery Method Nasal Cannula Oxygen Flow Rate Fraction of Inspired Oxygen 05/10/24 07:38 05/10/24 08:30 Temperature Pulse Rate 98 Respiratory Rate 20 Blood Pressure 130/73 02 Sat by Pulse Oximetry 96 Oxygen Delivery Method Nasal Cannula Nasal Cannula Oxygen Flow Rate 3 3 Fraction of Inspired Oxygen Labs 05/10/24 05:16 05/10/24 05:16 Therapy Recommendations Therapy Recommendations: OT Recommendations OT Recommended Discharge Nursing Home Facility,Inpatient Rehab Unit Location OT Recommended Services at Physical Therapy,Occupational Therapy Discharge PT Recommendations PT Recommended Discharge Nursing Home Facility Location PT Recommended Services at Physical Therapy,Occupational Therapy Discharge ST Recommendations Liquid Consistency Thin Liquids Recommendation Solid Consistency Regular Solids Recommendations Meat Consistency Whole Meats Recommendations Medication Administration Whole Pills,Give Pills with Water Dysphagia Swallow Precautions/ Sitting Upright (90 deg) Strategies Assessment/Plan (1) Altered mental status: Qualifiers: Altered mental status type: delirium Qualified Code(s): R41.0 - Disorientation, unspecified Plan DATA REVIEW: -CTA of the chest:No acute pulmonary embolus. patchy right upper lung consolidation. Mild patchy left perihilar consolidation. Small layering pleural effusions. -Head CT May 02, 2024 nonacute, shows chronic right mastoiditis and possible otitis -MRI brain September 22, 2023 without contrast looks unremarkable aside from some chronic age-related neurodegenerative changes -Blood cultures May 02, 2024 2 of 2 group B strep, urine culture with 20,000 colonies Enterococcus faecalis and strep group B -Updated MRI of the brain: Unable to be completed -Repeat CT scan of the brain: No evidence of intracranial abnormality or acute process. ASSESSMENT: It is my impression that the patient has metabolic encephalopathy secondary to bacteremia, UTI and pneumonia as well as a probable baseline cognitive impairment. CT scan of the brain has not identified an acute intracranial process and as such cardiology has decided to utilize aspirin instead of an anticoagulant medication which I think is appropriate. The thought is that the patient's sepsis is what led to the atrial fibrillation. He is being investigated in the outpatient setting for progressive cognitive decline with concern for dementia. If he has an underlying neurodegenerative disorder that would put him at increased risk for encephalopathy/delirium. PLAN: 1. At this time, neurological workup is being completed. The patient's delirium is secondary to multiple medical comorbidities. 2. Cardiology has recommended discontinuation of 10 a inhibitor and favored aspirin for prevention of stroke secondary to the [id number] score of 1 and the fact that A-fib would be secondary to sepsis. 3. Treatment of further metabolic development of infiltrates on x-ray per primary service. 3. Please call with any further questions or concerns. Neurology will sign off Documented By: Jimmy Gonzalez DO 4 [id number] Signed By: <Electronically signed by Jimmy Gonzalez DO> 05/10/24 [facility] Work Phone: 1(389) 946-994812-31-2024 [place] [address] Neurology Progress Note Signed Patient: Juan Simon MR#: [id number] : 1955 Acct:[id number] Age/Sex: 68 / M Adm Date: 4 Loc: Room: [address] [place] [address] Type: ADM IN Attending Dr: Hilda Ruiz MD Copies to: ~ Date of Service: 05/10/2024 Subjective Subjective Narrative: Patient is unable to have MRI at this time. As such, we opted to repeat CT scanof the brain. This was completed yesterday. Patient continues to be treated for bacteremia secondary to UTI and also with evidence of pneumonia with vancomycin and Zosyn along with BiPAP trial and steroids per pulmonary. Cardiology also saw the patient. They were awaiting imaging results. No obvious stroke of been identified. As such they do not recommend anticoagulation at this time and I am inclined to agree with this Patient was sitting up this morning and talking to me.He was using the restroom and acknowledge me when I came in and answer questions. He looked better to me substantially today as compared to yesterday. It appeared that he was eating.Hehad no new concerns for me. Review of Systems Review of Systems Unobtainable due to mental status and Unobtainable due to mental condition Exam Physical Exam Vital Signs: Temp Pulse Resp BP Pulse Ox O2 Del Method O2 Flow Rate 97.9 F 98 20 130/73 96 Nasal Cannula 3 05/09/24 20:00 05/10/24 08:30 05/10/24 08:30 05/10/24 08:30 05/10/24 08:30 05/10/24 08:30 05/10/24 08:30 FiO2 30 05/09/24 23:14 Narrative: EXAMINATION: Patient awake alert and oriented x 2 Receptive and expressive language are intact. Attention is poor Cranial nerves grossly intact Patient able to move all 4 extremities without obvious focal deficit. Formal power testing not possible. Reflexes depressed Coordination and gait not able to be tested Objective Vital Signs Vital Signs: Vital Signs - 24 hr 05/09/24 08:50 05/09/24 08:53 05/09/24 11:37 Temperature Pulse Rate 88 Respiratory Rate Blood Pressure 109/70 02 Sat by Pulse Oximetry 93 L Oxygen Delivery Method Nasal Cannula Nasal Cannula Oxygen Flow Rate 6 5 Fraction of Inspired Oxygen 05/09/24 11:37 05/09/24 12:33 05/09/24 12:40 Temperature 97.7 F Pulse Rate 87 94 89 Respiratory Rate 20 28 H Blood Pressure 105/68 105/68 02 Sat by Pulse Oximetry 94 L Oxygen Delivery Method Nasal Cannula Oxygen Flow Rate 5 Fraction of Inspired Oxygen 05/09/24 15:53 05/09/24 16:03 05/09/24 16:03 Temperature 98.5 F Pulse Rate 99 103 H Respiratory Rate 32 H 24 Blood Pressure 112/78 02 Sat by Pulse Oximetry 92 L 93 L Oxygen Delivery Method Nasal Cannula Nasal Cannula Oxygen Flow Rate 3 3 Fraction of Inspired Oxygen 05/09/24 16:08 05/09/24 17:25 05/09/24 20:00 Temperature 97.9 F Pulse Rate 98 98 Respiratory Rate 26 H 11 L Blood Pressure 118/61 02 Sat by Pulse Oximetry 96 96 Oxygen Delivery Method Nasal Cannula Nasal Cannula Oxygen Flow Rate 3 3 Fraction of Inspired Oxygen 30 05/09/24 20:00 05/09/24 20:57 05/09/24 21:09 Temperature Pulse Rate 107 H 114 H Respiratory Rate 24 22 Blood Pressure 02 Sat by Pulse Oximetry Oxygen Delivery Method Nasal Cannula Oxygen Flow Rate 3 Fraction of Inspired Oxygen 05/09/24 22:05 05/09/24 22:13 05/09/24 23:14 Temperature Pulse Rate 100 106 H 101 H Respiratory Rate 26 H 24 32 H Blood Pressure 02 Sat by Pulse Oximetry 93 L 93 L 92 L Oxygen Delivery Method Oxygen Flow Rate Fraction of Inspired Oxygen 30 30 30 05/10/24 00:00 05/10/24 00:00 05/10/24 00:00 Temperature Pulse Rate 97 Respiratory Rate 20 Blood Pressure 131/82 02 Sat by Pulse Oximetry 95 Oxygen Delivery Method BiPAP Nasal Cannula Nasal Cannula Oxygen Flow Rate 3 4 Fraction of Inspired Oxygen 05/10/24 04:00 05/10/24 05:18 05/10/24 05:26 Temperature Pulse Rate 97 99 100 Respiratory Rate 22 22 Blood Pressure 02 Sat by Pulse Oximetry 94 L Oxygen Delivery Method Nasal Cannula Oxygen Flow Rate Fraction of Inspired Oxygen 05/10/24 07:38 05/10/24 08:30 Temperature Pulse Rate 98 Respiratory Rate 20 Blood Pressure 130/73 02 Sat by Pulse Oximetry 96 Oxygen Delivery Method Nasal Cannula Nasal Cannula Oxygen Flow Rate 3 3 Fraction of Inspired Oxygen Labs 05/10/24 05:16 05/10/24 05:16 Therapy Recommendations Therapy Recommendations: OT Recommendations OT Recommended Discharge Nursing Home Facility,Inpatient Rehab Unit Location OT Recommended Services at Physical Therapy,Occupational Therapy Discharge PT Recommendations PT Recommended Discharge Nursing Home Facility Location PT Recommended Services at Physical Therapy,Occupational Therapy Discharge ST Recommendations Liquid Consistency Thin Liquids Recommendation Solid Consistency Regular Solids Recommendations Meat Consistency Whole Meats Recommendations Medication Administration Whole Pills,Give Pills with Water Dysphagia Swallow Precautions/ Sitting Upright (90 deg) Strategies Assessment/Plan (1) Altered mental status: Qualifiers: Altered mental status type: delirium Qualified Code(s): R41.0 - Disorientation, unspecified Plan DATA REVIEW: -CTA of the chest:No acute pulmonary embolus. patchy right upper lung consolidation. Mild patchy left perihilar consolidation. Small layering pleural effusions. -Head CT May 02, 2024 nonacute, shows chronic right mastoiditis and possible otitis -MRI brain September 22, 2023 without contrast looks unremarkable aside from some chronic age-related neurodegenerative changes -Blood cultures May 02, 2024 2 of 2 group B strep, urine culture with 20,000 colonies Enterococcus faecalis and strep group B -Updated MRI of the brain: Unable to be completed -Repeat CT scan of the brain: No evidence of intracranial abnormality or acute process. ASSESSMENT: It is my impression that the patient has metabolic encephalopathy secondary to bacteremia, UTI and pneumonia as well as a probable baseline cognitive impairment. CT scan of the brain has not identified an acute intracranial process and as such cardiology has decided to utilize aspirin instead of an anticoagulant medication which I think is appropriate. The thought is that the patient's sepsis is what led to the atrial fibrillation. He is being investigated in the outpatient setting for progressive cognitive decline with concern for dementia. If he has an underlying neurodegenerative disorder that would put him at increased riskfor encephalopathy/delirium. PLAN: 1. At this time, neurological workup is being completed. The patient's delirium is secondary to multiple medical comorbidities. 2. Cardiology has recommended discontinuation of 10 a inhibitor and favored aspirin for prevention of stroke secondary to the [id number] score of 1 and the fact that A-fib would be secondary to sepsis. 3. Treatment of further metabolic development of infiltrates on x-ray per primary service. 3. Please call with any further questions or concerns. Neurology will sign off Documented By: Jimmy Gonzalez DO 4 [id number] Signed By: 05/10/[address] [place], [place] 5635812-30-2024 Progress note Author Miladis Rodriguez [facility] Note Date/Time May 09, 2024 6:10pm [facility] [address] [place] [address] Pulmonology Progress Note Signed Patient: Juan Simon MR#: [id number] : 1955 Acct:[id number] Age/Sex: 68 / M Adm Date: 4 Loc: Room: [address] [place] [address] Type: ADM IN Attending Dr: Hilda Ruiz MD Copies to: ~ Date of Service: 05/09/2024 Subjective Subjective Narrative: - worsening shortness of breath and cough, wheezing, CXR shows developing RUL consolidation, CTA confirms patchy RUL consolidation and left perihilar fullnesswith small layering effusions - atbx broadened to Zosyn/Vanc (was on Unasyn); WBC also noted to jump up to 22 from 11 - unable to produce sputum, blood cultures sent, transferred to stepdown Exam Physical Exam Vital Signs: Temp Pulse Resp BP Pulse Ox O2 Del Method O2 Flow Rate 98.5 F 98 26 H 112/78 96 Nasal Cannula 3 05/09/24 15:53 05/09/24 17:25 05/09/24 17:25 05/09/24 15:53 05/09/24 17:25 05/09/24 16:08 05/09/24 16:08 FiO2 30 05/09/24 17:25 Objective Intake and Output I&O - Last 24 Hours: Intake & Output 05/09/24 05/09/24 05/09/24 07:59 15:59 23:59 Intake Total 475 / 575 100 / 575 Output Total 400 / 400 Balance 75 / 175 100 / 175 Weight 97.5 kg Labs 05/08/24 03:30 05/08/24 03:30 Microbiology Micro: Microbiology 3 05/05/24 06:33 Blood Culture - Preliminary Blood - Right Antecubital No Growth 4 Days 05/05/24 04:10 Blood Culture - Preliminary Blood - Line No Growth 4 Days 05/03/24 14:45 Blood Culture - Final Blood NO GROWTH 5 DAYS 05/03/24 14:30 Blood Culture - Final Blood NO GROWTH 5 DAYS Assessment/Plan Assessment/Plan (1) Sepsis: (2) Atrial fibrillation with rapid ventricular response: (3) Urinary tract infection: (4) Bacteremia due to Streptococcus: Plan - agree with broadening atbx to Vanc/Zosyn pending cultures as it is possible hedeveloped a nosocomial infection - will trial BIPAP support qhs and prn if he can tolerate it - if he is still not breathing better we can also trial IV steroids - continue nebs and inhalers for now - will follow with you Documented By: Miladis Rodriguez MD 1801 Signed By: <Electronically signed by Miladis Rodriguez MD> 05/09/241809 [facility] Work Phone: 1(142) 898-650612-30-2024 Progress note Author Judy Dunn [facility] Note Date/Time May 09, 2024 5:13pm [facility] [address] [place] [address] Cardiology Progress Note Signed Patient: Juan Simon MR#: [id number] : 1955 Acct:[id number] Age/Sex: 68 / M Adm Date: 4 Loc: 4 Room: 7O3467-5 Type: ADM IN Attending Dr: Hilda Ruiz MD Copies to: ~ Date of Service: 05/09/2024 Subjective Principal diagnosis: Sepsis, paroxysmal atrial fibrillation Interval history: No acute events overnight. Currently in sinus rhythm with PACs. Brain MRI is pending Exam Physical Exam Vital Signs: Temp Pulse Resp BP Pulse Ox O2 Del Method O2 Flow Rate 98.5 F 103 H 24 112/78 93 L Nasal Cannula 3 05/09/24 15:53 05/09/24 16:03 05/09/24 16:03 05/09/24 15:53 05/09/24 16:03 05/09/24 16:08 05/09/24 16:08 Narrative: GEN: Awake and alert Neck: No JVD. Lungs: Clear to auscultation bilaterally Heart: Regular rate and rhythm. Normal S1 and S2. No murmurs or rubs appreciated. Abdomen: Soft, nontender, nondistended, bowel sounds present. Extremities: No BLE edema. Neuro: No focal deficits. Objective Labs 05/08/24 03:30 05/08/24 03:30 A&P - Cardiology (1) Atrial fibrillation with rapid ventricular response: Assessment/Problem Details: Likely paroxysmal atrial fibrillation in the setting of an elevated catecholamine state during systemic sepsis. Now converted back to normal sinus mechanism. Code(s): I48.91 - Unspecified atrial fibrillation (2) Bacteremia due to Streptococcus: Code(s): R78.81 - Bacteremia; B95.5 - Unspecified streptococcus as the cause of diseases classified elsewhere (3) Sepsis: Code(s): A41.9 - Sepsis, unspecified organism (4) Altered mental status: Qualifiers: Altered mental status type: delirium Qualified Code(s): R41.0 - Disorientation, unspecified Code(s): R41.82 - Altered mental status, unspecified (5) Community acquired pneumonia: Code(s): J18.9 - Pneumonia, unspecified organism (6) Urinary tract infection: Code(s): N39.0 - Urinary tract infection, site not specified Plan # UTI with bacteremia # Pneumonia - On 05/08/24 he had an episode of hypoxia and agitation with new right infiltrates on CXR possibly due to aspiration. # Paroxysmal nonvalvular A-fib ? [id number] is 1. He had converted back to NSRthen went back into AFib due to sepsis and respiratory issues. # Other: T-cell lymphoma, celiac disease, Obesity. Echo 05/02/2024 ? EF 55-60%, normal LV size and thickness, normal diastolic function, mildly dilated LA, mild . - Remains in normal sinus rhythm. Will stop Cardizem drip. -Continue Toprol 50 mg twice daily. -Will await MRI brain results if no evidence of CVA, then no anticoagulation indicated. -Continue treatment of pneumonia per primary team. Documented By: Judy Dunn MD 05/09/24 1505 Signed By: <Electronically signed by Judy Dunn MD> 05/09/24 1977 [facility] Work Phone: 1(999) 120-398912-30-2024 [place] [id number] Pulmonology Progress Note Signed Patient: Juan Simon MR#: [id number] : 1955 Acct:[id number] Age/Sex: 68 / M Adm Date: 4 Loc: Room: [address] [place] [address] Type: ADM IN Attending Dr: Hilda Ruiz MD Copies to: ~ Date of Service: 05/09/2024 Subjective Subjective Narrative: - worsening shortness of breath and cough, wheezing, CXR shows developing RUL consolidation, CTA confirms patchy RUL consolidation and left perihilar fullnesswith small layering effusions - atbx broadened to Zosyn/Vanc (was on Unasyn); WBC also noted to jump up to 22 from 11 - unable to produce sputum, blood cultures sent, transferred to stepdown Exam Physical Exam Vital Signs: Temp Pulse Resp BP Pulse Ox O2 Del Method O2 Flow Rate 98.5 F 98 26 H 112/78 96 Nasal Cannula 3 05/09/24 15:53 05/09/24 17:25 05/09/24 17:25 05/09/24 15:53 05/09/24 17:25 05/09/24 16:08 05/09/24 16:08 FiO2 30 05/09/24 17:25 Objective Intake and Output I&O - Last 24 Hours: Intake & Output 05/09/24 05/09/2424 07:59 15:59 23:59 Intake Total 475 / 575 100 / 575 Output Total 400 / 400 Balance 75 / 175 100 / 175 Weight 97.5 kg Labs 05/08/24 03:30 05/08/24 03:30 Microbiology Micro: Microbiology 3 05/05/24 06:33 Blood Culture - Preliminary Blood - Right Antecubital No Growth 4 Days 05/05/24 04:10 Blood Culture - Preliminary Blood - Line No Growth 4 Days 05/03/24 14:45 Blood Culture - Final Blood NO GROWTH 5 DAYS 05/03/24 14:30 Blood Culture - Final Blood NO GROWTH 5 DAYS Assessment/Plan Assessment/Plan (1) Sepsis: (2) Atrial fibrillation with rapid ventricular response: (3) Urinary tract infection: (4) Bacteremia due to Streptococcus: Plan - agree with broadening atbx to Vanc/Zosyn pending cultures as it is possible hedeveloped a nosocomial infection - will trial BIPAP support qhs and prn if he can tolerate it - if he is still not breathing better we can also trial IV steroids - continue nebs and inhalers for now - will follow with you Documented By: Miladis Rodriguez MD 1801 Signed By: 05/09/241809 [facility]12-30-2024 [place] [address] Cardiology Progress Note Signed Patient: Juan Simon MR#: [id number] : 1955 Acct:[id number] Age/Sex: 68 / M Adm Date: 4 Loc: Room: [address] [place] [address] Type: ADM IN Attending Dr: Hilda Ruiz MD Copies to: ~ Date of Service: 05/09/2024 Subjective Principal diagnosis: Sepsis, paroxysmal atrial fibrillation Interval history: No acute events overnight. Currently in sinus rhythm with PACs. Brain MRI is pending Exam Physical Exam Vital Signs: Temp Pulse Resp BP Pulse Ox O2 Del Method O2 Flow Rate 98.5 F 103 H 24 112/78 93 L Nasal Cannula 3 05/09/24 15:53 05/09/24 16:03 05/09/24 16:03 05/09/24 15:53 05/09/24 16:03 05/09/24 16:08 05/09/24 16:08 Narrative: GEN: Awake and alert Neck: No JVD. Lungs: Clear to auscultation bilaterally Heart: Regular rate and rhythm. Normal S1 and S2. No murmurs or rubs appreciated. Abdomen: Soft, nontender, nondistended, bowel sounds present. Extremities: No BLE edema. Neuro: No focal deficits. Objective Labs 05/08/24 03:30 05/08/24 03:30 A&P - Cardiology (1) Atrial fibrillation with rapid ventricular response: Assessment/Problem Details: Likely paroxysmal atrial fibrillation in the setting of an elevated catecholamine state during systemic sepsis. Now converted back to normal sinus mechanism. Code(s): I48.91 - Unspecified atrial fibrillation (2) Bacteremia due to Streptococcus: Code(s): R78.81 - Bacteremia; B95.5 - Unspecified streptococcus as the cause of diseases classified elsewhere (3) Sepsis: Code(s): A41.9 - Sepsis, unspecified organism (4) Altered mental status: Qualifiers: Altered mental status type: delirium Qualified Code(s): R41.0 - Disorientation, unspecified Code(s): R41.82 - Altered mental status, unspecified (5) Community acquired pneumonia: Code(s): J18.9 - Pneumonia, unspecified organism (6) Urinary tract infection: Code(s): N39.0 - Urinary tract infection, site not specified Plan # UTI with bacteremia # Pneumonia - On 05/08/24 he had an episode of hypoxia and agitation with new right infiltrates on CXR possibly due to aspiration. # Paroxysmal nonvalvular A-fib ? [id number] is 1. He had converted back to NSRthen went back intoAFib due to sepsis and respiratory issues. # Other: T-cell lymphoma, celiac disease, Obesity. Echo 05/02/2024 ? EF 55-60%, normal LV size and thickness, normal diastolic function, mildly dilated LA, mild . - Remains in normal sinus rhythm. Will stop Cardizem drip. -Continue Toprol 50 mg twice daily. -Will await MRI brain results if no evidence of CVA, then no anticoagulation indicated. -Continue treatment of pneumonia per primary team. Documented By: Judy Dunn MD 05/09/24 1502 Signed By: 05/09/[address] [facility]12-30-2024 Radiology Diagnostic study note [facility] [place] [address] [place] [address] CT Scan Report Signed Patient: Juan Simon MR#: [id number] : 1955 Acct:[id number] Age/Sex: 68 / M ADM Date: 4 Loc: 4 Room: [address] [place] [address] Type: ADM IN Attending Dr: Hilda Ruiz MD Copies to: DO Hilda Ross MD~ Ordering Provider: Jimmy Gonzalez DO Date of Service: 05/09/24 CT/CT head/brain wo con: r/o CVA CT BRAIN WITHOUT CONTRAST: CLINICAL HISTORY: Tremors, memory loss and shortness of breath COMPARISON: 05/02/2024 TECHNIQUE: Contiguous axial unenhanced images were obtained through the brain. This CT exam was performed using one or more following dose reduction techniques: Automated exposure control, adjustmentof the mA and/or kV accordingto patient size, or use of iterative reconstruction technique. FINDINGS: Patient was scanned multiple times due to motion. This limits evaluation, particularly atthe skull base. There is mild cortical atrophy. The ventricles are normal in size and position. No obvious developing areas of abnormal attenuation are identified.. There is no definite acute hemorrhage, mass effect or extra-axial collections. The imaged paranasal sinuses are clear. There are stillopacified right mastoid air cells. CT/CT head/brain wo con IMPRESSION: NO OBVIOUS ACUTE FINDINGS WITHIN LIMITS OF MOTION. FOLLOW-UP IS RECOMMENDED, ASSYMPTOMS WARRANT. Impression dictated by: Dorothy Burkett M.D.05/09/2024 4:56 PM Dictation Location: [place] [address] Transcribed By: [facility] 05/09/241655 Dictated By: Dorothy Burkett MD 05/09/241650 Signed By: 05/09/241655 [facility] Work Phone: [phone] Progress note Author Hilda Ruiz [facility] Note Date/Time May 09, 2024 1:01pm [facility] [address] [place] [address] Hospitalist Progress Note Signed Patient: Juan Simon MR#: [id number] : 1955 Acct:[id number] Age/Sex: 68 / M Adm Date: 4 Loc: Room: [address] [place] [address] Type: ADM IN Attending Dr: Hilda Ruiz MD Copies to: ~ Date of Service: 05/09/2024 Subjective Subjective Narrative: 68M with PMH of Asthma, celiac disease, DJD and chronic back pain s/p spinal cord stimulator and nerve ablations, frequent Falls, migraines, MANUEL who presented with AMS and admitted for the evaluation and treatment of Afib RVR andcirculatory shock Assessment And Plan PNA 04/28 There was hypoxia today CXR showed new infiltrates. switch Abx back to Zosyn and Vancomycin the patient reported abdominal pain today will obtain CTA since he is getting Abd CT too CTA chest shows No acute pulmonary embolus. patchy right upper lung consolidation. Mild patchy left perihilar consolidation. Small layering pleuraleffusions. Abdominal pain the patient reported abdominal pain today but no pain now. WBC up to 22 CT abd today shows No acute findings. Small bowel bilateral layering pleural effusions. Similar left nephrolithiasis. Supportive Circulatory shock - resolved He was given a total of multiple dose of metoprolol to control his Afib RVR. then he developed hypotension. he was given 3L of IVF. he was started on Levophed. Lactic wnl . he was admitted to the ICU . Pulmonary was consulted for critical care management Strep Bacteremia due to Strep UTI Sepsis due to above Hypotension noted in the ED with tachycardia and mild leukocytosis. he had feverup to 39.5C. he was started on broad spectrum IV antibiotics Lactic acid wnl CXR ED shows no acute cardiopulmonary abnormality Respiratory (Upper) Panel, PCR negative Blood Cx ED 05/02 Strep agalactiae urine Cx shows Enterococcus/Strep agalactiae Follow up Blood Cx 05/03 and 05/[address] Abd shows No acute intra-abdominal process. Small bilateral pleural effusions. ID consult recommendation appreciated Unasyn with Transition to PO Augmentin on DC (Plan of total 14 days) Acute toxic-metabolic encephalopathy Septic encephalopathy with delirium the patient presents with acute confusional state and behavior changes noted by his Urine Tox screen is positive for amphetamine CT brain shows no acute intracranial process Ammonia wnl ABG shows no hypercapnia Could be due to the current infection other causes can't be ruled out Depakote was discontinued due to interaction with his apixaban, doxepin was discontinued given his cardiac dysrhythmia MRI (spinal stimulator is not compatible with the 3T magnet). MRI with 1.5 Teslamachine without contrast pending neurology recommendation appreciated supportive and treatment of the underlying condition Newly diagnosed Paroxysmal Afib with RVR the patient was found to have Afib RVR in the ED with heart rate up to 150s and received multiple doses of metoprolol IV. he converted to NSR in the ED EKG ED 9:45 am shows Afib@146 bpm without significant acute changes. EKG 3:20 pm shows NSR No significant electrolyte Abnormality, Mg 1.8 (replaced) TSH in EMR wnl Echocardiogram EF 60%, Mild he was evaluated by Cardiology; he was started on Beta david, Digoxin and Eliquis, then Digoxin and Eliquis was discontinued due that afib episode was associated with sepsis 04/27 the patient is back to Afib RVR with HR up to 150s then down to 100s agree with increasing metoprolol dose was given one dose of digoxin IV Cardizem drip wean off cardiology recommendation appreciated Elevated Troponin Type II MD Troponin was found incidentally to be mildly elevated above normal limits 106 upto 311. There is no chest pain, nor significant EKG changes. This is likely type2 myocardial infarction secondary to ischemia due to increased oxygen demand and/or decreased supply in the setting of tachycardia . Troponin will be repeated. Further workup, if needed, can be done in an outpatient setting. Acute Urinary Retention Hayden was inserted Impaired mobility and ADL PT/OT has been consulted. Nursing Home Facility,Inpatient Rehab Unit was recommended. INTERVAL HPI:?As Above, Pt resting in bed. no fever Chronic diseases:?Unless mentioned Above, Essential home medications have been continued.? DVT Px:?Addressed Disposition:?To be determined Plan of care Discussed with:?the medical team, the patient at bedside Exam Physical Exam Vital Signs: Temp Pulse Resp BP Pulse Ox O2 Del Method O2 Flow Rate 97.7 F 89 28 H 105/68 94 L Nasal Cannula 5 05/09/24 12:40 05/09/24 12:40 05/09/24 12:40 05/09/24 12:40 05/09/24 12:40 05/09/24 12:40 05/09/24 12:40 Objective Lab Results 05/08/24 03:30 05/08/24 03:30 Microbiology Results Microbiology 05/05/24 06:33 Blood - Right Antecubital Blood Culture - Preliminary No Growth 4 Days 05/05/24 04:10 Blood - Line Blood Culture - Preliminary No Growth 4 Days 05/03/24 14:45 Blood Blood Culture - Final NO GROWTH 5 DAYS 05/03/24 14:30 Blood Blood Culture - Final NO GROWTH 5 DAYS Meds Allergies and Active Meds Allergies gluten Allergy (Unknown, Verified 05/02/24 09:54) Unknown Reaction Active Meds: Active Medications Generic Name Dose Route Start Last Admin Trade Name Korina PRN Reason Stop Dose Admin Acetaminophen 650 mg 05/02/24 17:28 05/09/24 09:49 Acetaminophen 325 Mg Tablet PO 05/02/25 17:27 650 mg Q6H PRN Administration Pain 1-5 or fever Albuterol 2.5 mg 05/08/24 13:37 Albuterol Neb 2.5 Mg/3 Ml Vial.Neb INHALATION 05/02/25 17:26 Q3H PRN shortness of breath or wheezin Albuterol/Ipratropium 3 ml 05/08/24 16:00 05/09/24 11:35 Ipratropium/Albuterol 0.5-3 Mg 3 Ml Ampul.Neb INHALATION 05/08/25 15:59 3 ml QID.RESP EDIE Administration Aspirin 81 mg 05/06/24 09:00 05/09/24 08:35 Aspirin 81 Mg Tablet. PO 05/06/25 08:59 81 mg DAILY EDIE Administration Budesonide/Formoterol Fumarate 2 puff 05/02/24 21:00 05/09/24 07:45 Budesonide/Formoterol 160-4.5 Mcg 60 Puff/6 Gm Hfa.Aer.Ad INHALATION 05/02/25 20:59 2 puff BID EDIE Administration Duloxetine HCl 30 mg 05/02/24 21:00 05/09/24 08:35 Duloxetine 30 Mg Capsule. PO 05/02/25 20:59 30 mg BID EDIE Administration Enoxaparin Sodium 30 mg 05/09/24 13:00 Enoxaparin 30 Mg/0.3 Ml Syringe SUBCUT 05/09/25 12:59 Q12HR.10A.10P EDIE Piperacillin Sod/Tazobactam Sod 4.5 gm in 100 mls @ 25 mls/hr 05/08/24 16:00 05/09/24 12:32 Zosyn IV Infused Q8H EDIE Infusion Vancomycin HCl 1.25 gm/ 275 mls @ 183.333 mls/hr 05/09/24 00:30 05/09/24 12:32 Dextrose IV 05/09/25 00:29 183.33 mls/hr Q12H EDIE Administration Magnesium Sulfate 2 gm in 50 mls @ 25 mls/hr 05/09/24 12:54 Magnesium Sulf 2gm-*Swfi* IV 05/09/24 14:53 ONCE ONE Magnesium Oxide 400 mg 05/07/24 16:50 05/09/24 08:35 Magnesium Oxide 400 Mg Tablet PO 05/07/25 16:49 400 mg DAILY EDIE Administration Metoprolol Succinate 50 mg 05/08/24 21:00 05/09/24 08:35 Metoprolol Succinate 50 Mg Tab.Er.24h PO 05/08/25 20:59 50 mg BID EDIE Administration Montelukast Sodium 10 mg 05/02/24 22:00 05/08/24 21:00 Montelukast 10 Mg Tablet PO 05/02/25 21:59 10 mg HS EDIE Administration Morphine Sulfate 1 mg 05/08/24 13:37 05/08/24 18:19 Morphine Sulfate 2 Mg/Ml Vial IV-PUSH 1 mg Q4H PRN Administration Pain Scale 7 - 10 Quetiapine Fumarate 12.5 mg 05/05/24 22:00 05/08/24 21:00 Quetiapine Fumarate 12.5 Mg Tablet PO 05/05/25 21:59 12.5 mg QHS EDIE Administration Sodium Chloride 0 ml 05/02/24 09:53 05/09/24 06:43 Sodium Chloride 0.9 % 10 Ml Syringe IV-PUSH 05/02/25 09:52 10 ml PRN PRN Administration Flush Vancomycin HCl 1 each 05/08/24 11:26 Vancomycin - Pharmacy Dosing 1 Each Miscell IV ONCE PRN ZZ.Pharmacy Consult Protocol A&P - Hospitalist Assessment/Plan (1) Atrial fibrillation with rapid ventricular response: Plan Patient is lying in bed. Awake and alert. Able to answer yes and no questions. Slightly confused. Able to follow commands. Symmetrical motor and tone. Generalized weakness and fatigue. Patient is tachypneic using accessory muscles. He is on oxygen. Chest exam revealed bilateral rhonchi. Heart is irregular this morning when I saw him. Subsequently patient converted to sinus rhythm. Abdomen soft, nontender. A-fib with RVR Patient converted to sinus rhythm. Continue high-dose beta-david as recommended by cardiology. Director Human Services recommended to take him off anticoagulation and continue aspirin. Will follow cardiologists recommendation given their expertise. Altered mental status, encephalopathy MRI is pending. Defer further needed diagnostic and therapeutic intervention relative to his neurological status to neurology team. Continue to treat his septic and metabolic derangement. Sepsis, UTI, pneumonia, hypoxic respiratory failure Blood cultures pending. UA is positive for strep and Enterococcus Continue Zosyn. Quite impressive infiltration on the chest CT. Patient was seen by speech who did not recommend any modification of his diet due to not exhibiting any signs and symptoms of aspiration as per speech. Patient continues to require oxygen supplementation. Reconsulted the pulmonary team to evaluate and address. Multiple other subacute, chronic medical conditions that could be addressed electively. Patient would likely require skilled care. Pre cert had been submitted this afternoon. Documented By: Hilda Ruiz MD 05/09/24 1257 Signed By: <Electronically signed by Hilda Ruiz MD> 05/09/24 1305 [facility] Work Phone: 1(633) 827-943012-30-2024 [place] [address] Hospitalist Progress Note Signed Patient: Juan Simon MR#: [id number] : 1955 Acct:[id number] Age/Sex: 68 / M Adm Date: 4 Loc: Room: [address] [place] [address] Type: ADM IN Attending Dr: Hilda Ruiz MD Copies to: ~ Date of Service: 05/09/2024 Subjective Subjective Narrative: 68M with PMH of Asthma, celiac disease, DJD and chronic back pain s/p spinal cord stimulator and nerve ablations, frequent Falls, migraines, MANUEL who presented with AMS and admitted for the evaluationand treatment of Afib RVR andcirculatory shock Assessment And Plan PNA 04/28 There was hypoxia today CXR showed new infiltrates. switch Abx back to Zosyn and Vancomycin the patient reported abdominal pain today will obtain CTA since he is getting Abd CT too CTA chest shows No acute pulmonary embolus. patchy right upper lung consolidation. Mild patchy leftperihilar consolidation. Small layering pleuraleffusions. Abdominal pain the patient reported abdominal pain today but no pain now. WBC up to 22 CT abd today shows No acute findings. Small bowel bilateral layering pleural effusions. Similar left nephrolithiasis. Supportive Circulatory shock - resolved He was given a total of multiple dose of metoprolol to control his Afib RVR. then he developed hypotension. he was given 3L of IVF. he was started on Levophed. Lactic wnl . he was admitted to the ICU. Pulmonary was consulted for critical care management Strep Bacteremia due to Strep UTI Sepsis due to above Hypotension noted in the ED with tachycardia and mild leukocytosis. he had feverup to 39.5C. he wasstarted on broad spectrum IV antibiotics Lactic acid wnl CXR ED shows no acute cardiopulmonary abnormality Respiratory (Upper) Panel, PCR negative Blood Cx ED 05/02 Strep agalactiae urine Cx shows Enterococcus/Strep agalactiae Follow up Blood Cx 05/03 and 05/[address] Abd shows No acute intra-abdominal process. Small bilateral pleural effusions. ID consult recommendation appreciated Unasyn with Transition to PO Augmentin on DC (Plan of total 14 days) Acute toxic-metabolic encephalopathy Septic encephalopathy with delirium the patient presents with acute confusional state and behavior changes noted by his Urine Tox screen is positive for amphetamine CT brain shows no acute intracranial process Ammonia wnl ABG shows no hypercapnia Could be due to the current infection other causes can't be ruled out Depakote was discontinued due to interaction with his apixaban, doxepin was discontinued given his cardiac dysrhythmia MRI (spinal stimulator is not compatible with the 3T magnet). MRI with 1.5 Teslamachine without contrast pending neurology recommendation appreciated supportive and treatment of the underlying condition Newly diagnosed Paroxysmal Afib with RVR the patient was found to have Afib RVR in the ED with heart rate up to 150s and received multiple doses of metoprolol IV. he converted to NSR in the ED EKG ED 9:45 am shows Afib@146 bpm without significant acute changes. EKG 3:20 pm shows NSR No significant electrolyte Abnormality, Mg 1.8 (replaced) TSH in EMR wnl Echocardiogram EF 60%, Mild he was evaluated by Cardiology; he was started on Beta david, Digoxin and Eliquis, then Digoxin and Eliquis was discontinued due that afib episode was associated with sepsis 04/27 the patient is back to Afib RVR with HR up to 150s then down to 100s agree with increasing metoprolol dose was given one dose of digoxin IV Cardizem drip wean off cardiology recommendation appreciated Elevated Troponin Type II MD Troponin was found incidentally to be mildly elevated above normal limits 106 upto 311. There is nochest pain, nor significant EKG changes. This is likely type2 myocardial infarction secondary to ischemia due to increased oxygen demand and/or decreased supply in the setting of tachycardia . Troponin will be repeated. Further workup, if needed, can be done in an outpatient setting. Acute Urinary Retention Hayden was inserted Impaired mobility and ADL PT/OT has been consulted. Nursing Home Facility,Inpatient Rehab Unit was recommended. INTERVAL HPI:?As Above, Pt resting in bed. no fever Chronic diseases:?Unless mentioned Above, Essential home medications have been continued.? DVT Px:?Addressed Disposition:?To be determined Plan of care Discussed with:?the medical team, the patient at bedside Exam Physical Exam Vital Signs: Temp Pulse Resp BP Pulse Ox O2 Del Method O2 Flow Rate 97.7 F 89 28 H 105/68 94 L Nasal Cannula 5 05/09/24 12:40 05/09/24 12:40 05/09/24 12:40 05/09/24 12:40 05/09/24 12:40 05/09/24 12:40 05/09/24 12:40 Objective Lab Results 05/08/24 03:30 05/08/24 03:30 Microbiology Results Microbiology 05/05/24 06:33 Blood - Right Antecubital Blood Culture - Preliminary No Growth 4 Days 05/05/24 04:10 Blood - Line Blood Culture - Preliminary No Growth 4 Days 05/03/24 14:45 Blood Blood Culture - Final NO GROWTH 5 DAYS 05/03/24 14:30 Blood Blood Culture - Final NO GROWTH 5 DAYS Meds Allergies and Active Meds Allergies gluten Allergy (Unknown, Verified 05/02/24 09:54) Unknown Reaction Active Meds: Active Medications Generic Name Dose Route Start Last Admin Trade Name Korina PRN Reason Stop Dose Admin Acetaminophen 650 mg 05/02/24 17:28 05/09/24 09:49 Acetaminophen 325 Mg Tablet PO 05/02/25 17:27 650 mg Q6H PRN Administration Pain 1-5 or fever Albuterol 2.5 mg 05/08/24 13:37 Albuterol Neb 2.5 Mg/3 Ml Vial.Neb INHALATION 05/02/25 17:26 Q3H PRN shortness of breath or wheezin Albuterol/Ipratropium 3 ml 05/08/24 16:00 05/09/24 11:35 Ipratropium/Albuterol 0.5-3 Mg 3 Ml Ampul.Neb INHALATION 05/08/25 15:59 3 ml QID.RESP EDIE Administration Aspirin 81 mg 05/06/24 09:00 05/09/24 08:35 Aspirin 81 Mg Tablet. PO 05/06/25 08:59 81 mg DAILY EDIE Administration Budesonide/Formoterol Fumarate 2 puff 05/02/24 21:00 05/09/24 07:45 Budesonide/Formoterol 160-4.5 Mcg 60 Puff/6 Gm Hfa.Aer.Ad INHALATION 05/02/25 20:59 2 puff BID EDIE Administration Duloxetine HCl 30 mg 05/02/24 21:00 05/09/24 08:35 Duloxetine 30 Mg Capsule. PO 05/02/25 20:59 30 mg BID EDIE Administration Enoxaparin Sodium 30 mg 05/09/24 13:00 Enoxaparin 30 Mg/0.3 Ml Syringe SUBCUT 05/09/25 12:59 Q12HR.10A.10P EDIE Piperacillin Sod/Tazobactam Sod 4.5 gm in 100 mls @ 25 mls/hr 05/08/24 16:00 05/09/24 12:32 Zosyn IV Infused Q8H EDIE Infusion Vancomycin HCl 1.25 gm/ 275 mls @ 183.333 mls/hr 05/09/24 00:30 05/09/24 12:32 Dextrose IV 05/09/25 00:29 183.33 mls/hr Q12H EDIE Administration Magnesium Sulfate 2 gm in 50 mls @ 25 mls/hr 05/09/24 12:54 Magnesium Sulf 2gm-*Swfi* IV 05/09/24 14:53 ONCE ONE Magnesium Oxide 400 mg 05/07/24 16:50 05/09/24 08:35 Magnesium Oxide 400 Mg Tablet PO 05/07/25 16:49 400 mg DAILY EDIE Administration Metoprolol Succinate 50 mg 05/08/24 21:00 05/09/24 08:35 Metoprolol Succinate 50 Mg Tab.Er.24h PO 05/08/25 20:59 50 mg BID EDIE Administration Montelukast Sodium 10 mg 05/02/24 22:00 05/08/24 21:00 Montelukast 10 Mg Tablet PO 05/02/25 21:59 10 mg HS EDIE Administration Morphine Sulfate 1 mg 05/08/24 13:37 05/08/24 18:19 Morphine Sulfate 2 Mg/Ml Vial IV-PUSH 1 mg Q4H PRN Administration Pain Scale 7 - 10 Quetiapine Fumarate 12.5 mg 05/05/24 22:00 05/08/24 21:00 Quetiapine Fumarate 12.5 Mg Tablet PO 05/05/25 21:59 12.5 mg QHS EDIE Administration Sodium Chloride 0 ml 05/02/24 09:53 05/09/24 06:43 Sodium Chloride 0.9 % 10 Ml Syringe IV-PUSH 05/02/25 09:52 10 ml PRN PRN Administration Flush Vancomycin HCl 1 each 05/08/24 11:26 Vancomycin - Pharmacy Dosing 1 Each Miscell IV ONCE PRN ZZ.Pharmacy Consult Protocol A&P - Hospitalist Assessment/Plan (1) Atrial fibrillation with rapid ventricular response: Plan Patient is lying in bed. Awake and alert. Able to answer yes and no questions. Slightly confused. Able to follow commands. Symmetrical motor and tone. Generalized weakness and fatigue. Patient is tachypneic using accessory muscles. He is on oxygen. Chest exam revealed bilateral rhonchi. Heart is irregular this morning when I saw him. Subsequently patient converted to sinus rhythm. Abdomen soft, nontender. A-fib with RVR Patient converted to sinus rhythm. Continue high-dose beta-david as recommended by cardiology. Director Human Services recommended to take him off anticoagulation and continue aspirin. Will follow cardiologists recommendation given their expertise. Altered mental status, encephalopathy MRI is pending. Defer further needed diagnostic and therapeutic intervention relative to his neurological status to neurology team. Continue to treat his septic and metabolic derangement. Sepsis, UTI, pneumonia, hypoxic respiratory failure Blood cultures pending. UA is positive for strep and Enterococcus Continue Zosyn. Quite impressive infiltration on the chest CT. Patient was seen by speech who did not recommend any modification of his diet due to not exhibitingany signs and symptoms of aspiration as per speech. Patient continues to require oxygen supplementation. Reconsulted the pulmonary team to evaluate and address. Multiple other subacute, chronic medical conditions that could be addressed electively. Patient would likely require skilled care. Pre cert had been submitted this afternoon. Documented By: Hilda Ruiz MD 05/09/24 1257 Signed By: 05/09/[address] [facility]12-30-2024 Progress note Author Jimmy Gonzalez [facility] Note Date/Time May 09, 2024 9:38am [facility] [address] [place] [address] Neurology Progress Note Signed Patient: Juan Simon MR#: [id number] : 1955 Acct:[id number] Age/Sex: 68 / M Adm Date: 4 Loc: 4 Room: [address] [place] [address] Type: ADM IN Attending Dr: Hilda Ruiz MD Copies to: ~ Date of Service: 05/09/2024 Subjective Subjective Narrative: MRI still pending. Patient still with confusion, intermittent tachycardia. No other acute events overnight. No new neurological concerns. Patient has been changed to aspirin instead of anticoagulant due to A-fib being secondary to sepsis. The patient is more awake and alert and talking to me today. He did follow one- step commands today. He certainly looked improved as compared to yesterday. One-on-one sitter did suggest that the patient did get some sleep last night. Review of Systems Review of Systems Unobtainable due to mental status Exam Physical Exam Vital Signs: Temp Pulse Resp BP Pulse Ox O2 Del Method O2 Flow Rate 97.6 F 89 20 109/70 96 Nasal Cannula 8 05/09/24 07:37 05/09/24 07:37 05/09/24 07:37 05/09/24 07:37 05/09/24 07:37 05/09/24 07:37 05/09/24 07:37 Narrative: EXAMINATION: Patient with altered mental status. Receptive and expressive language are intact. Patient is only oriented to self. Attention is poor Cranial nerves grossly intact Patient able to move all 4 extremities without obvious focal deficit. Formal power testing not possible. Reflexes depressed Coordination and gait not able to be tested Objective Vital Signs Vital Signs: Vital Signs - 24 hr 05/08/24 08:29 05/08/24 08:30 05/08/24 09:28 Temperature 98.6 F Pulse Rate 112 H 111 H Respiratory Rate 26 H 22 Blood Pressure 104/55 L 136/66 02 Sat by Pulse Oximetry 93 L 93 L Oxygen Delivery Method Nasal Cannula Nasal Cannula Nasal Cannula Oxygen Flow Rate 5 5 5 05/08/24 10:21 05/08/24 10:22 05/08/24 11:27 Temperature Pulse Rate 107 H 146 H Respiratory Rate 24 Blood Pressure 134/74 134/74 02 Sat by Pulse Oximetry 91 L Oxygen Delivery Method Nasal Cannula Nasal Cannula Oxygen Flow Rate 6 6 05/08/24 11:28 05/08/24 11:38 05/08/24 12:37 Temperature Pulse Rate 94 124 H 94 Respiratory Rate Blood Pressure 135/73 135/73 02 Sat by Pulse Oximetry Oxygen Delivery Method Oxygen Flow Rate 05/08/24 13:18 05/08/24 13:24 05/08/24 13:25 Temperature Pulse Rate 98 103 H 115 H Respiratory Rate 20 20 30 H Blood Pressure 135/73 02 Sat by Pulse Oximetry 90 L Oxygen Delivery Method Nasal Cannula Oxygen Flow Rate 6 05/08/24 15:00 05/08/24 16:00 05/08/24 16:51 Temperature Pulse Rate 89 85 Respiratory Rate 28 H 24 Blood Pressure 113/69 02 Sat by Pulse Oximetry 94 L Oxygen Delivery Method Nasal Cannula Nasal Cannula Oxygen Flow Rate 6 6 05/08/24 16:58 05/08/24 18:00 05/08/24 19:18 Temperature Pulse Rate 84 90 102 H Respiratory Rate 24 20 Blood Pressure 111/68 102/72 02 Sat by Pulse Oximetry 94 L Oxygen Delivery Method Nasal Cannula Oxygen Flow Rate 6 05/08/24 19:23 05/08/24 19:28 05/08/24 20:32 Temperature 98.7 F Pulse Rate 95 90 Respiratory Rate 26 H 32 H Blood Pressure 113/77 02 Sat by Pulse Oximetry 94 L Oxygen Delivery Method Nasal Cannula Nasal Cannula Oxygen Flow Rate 6 6 05/08/24 20:43 05/08/24 22:10 05/09/24 00:00 Temperature Pulse Rate 90 102 H Respiratory Rate 28 H Blood Pressure 102/72 02 Sat by Pulse Oximetry Oxygen Delivery Method Nasal Cannula Oxygen Flow Rate 6 05/09/24 00:03 05/09/24 00:26 05/09/24 03:49 Temperature 97.6 F Pulse Rate 70 70 81 Respiratory Rate 24 25 H Blood Pressure 95/68 L 95/68 L 106/71 02 Sat by Pulse Oximetry 91 L 93 L Oxygen Delivery Method Nasal Cannula Nasal Cannula Oxygen Flow Rate 6 05/09/24 06:50 05/09/24 06:50 05/09/24 07:37 Temperature 97.6 F Pulse Rate 86 86 89 Respiratory Rate 20 Blood Pressure 113/86 113/86 109/70 02 Sat by Pulse Oximetry 96 Oxygen Delivery Method Nasal Cannula Oxygen Flow Rate 8 Labs 05/08/24 03:30 05/08/24 03:30 Therapy Recommendations Therapy Recommendations: OT Recommendations OT Recommended Discharge Nursing Home Facility,Inpatient Rehab Unit Location OT Recommended Services at Physical Therapy,Occupational Therapy Discharge PT Recommendations PT Recommended Discharge Nursing Home Facility,Inpatient Rehab Unit Location PT Recommended Services at Physical Therapy,Occupational Therapy Discharge Assessment/Plan (1) Altered mental status: Qualifiers: Altered mental status type: delirium Qualified Code(s): R41.0 - Disorientation, unspecified Plan DATA REVIEW: -CTA of the chest:No acute pulmonary embolus. patchy right upper lung consolidation. Mild patchy left perihilar consolidation. Small layering pleural effusions. -Head CT May 02, 2024 nonacute, shows chronic right mastoiditis and possible otitis -MRI brain September 22, 2023 without contrast looks unremarkable aside from some chronic age-related neurodegenerative changes -Blood cultures May 02, 2024 2 of 2 group B strep, urine culture with 20,000 colonies Enterococcus faecalis and strep group B -Updated MRI of the brain: Pending ASSESSMENT: Septic encephalopathy with delirium Development of infiltrates on chest x-ray. Consider acute embolic ischemic event contributing to mental status changes given the new onset atrial fibrillation. He is being investigated in the outpatient setting for progressive cognitive decline with concern for dementia. If he has an underlying neurodegenerative disorder that would put him at increased risk for encephalopathy/delirium. PLAN: 1. MRI brain with and without contrast (his spinal stimulator is MR- compatible)was desired but his spinal stimulator is not compatible with the 3T magnet. An MRI in the 1.5 Mishel machine without contrast has been ordered and is pending 2. Cardiology has recommended discontinuation of 10 a inhibitor and favored aspirin for prevention of stroke secondary to the [id number] score of 1 and the fact that A-fib would be secondary to sepsis. 3. Treatment of further metabolic development of infiltrates on x-ray per primary service. 3. Will follow Documented By: Jimmy Gonzalez DO 4 823 Signed By: <Electronically signed by Jimmy Gonzalez DO> 05/09/24 0938 [facility] Work Phone: [phone]) 293-393712-30-2024 [place] [address] Neurology Progress Note Signed Patient: Juan Simon MR#: [id number] : 1955 Acct:[id number] Age/Sex: 68 / M Adm Date: 4 Loc: 4P Room: [address] [place] [address] Type: ADM IN Attending Dr: Hilda Ruiz MD Copies to: ~ Date of Service: 05/09/2024 Subjective Subjective Narrative: MRI still pending. Patient still with confusion, intermittent tachycardia. No other acute events overnight. No new neurological concerns. Patient has been changed to aspirin instead of anticoagulant due to A-fib being secondary to sepsis. The patient is more awake and alert and talking to me today. He did follow one- step commands today.He certainly looked improved as compared to yesterday. One-on-one sitter did suggest that the patient did get some sleep last night. Review of Systems Review of Systems Unobtainable due to mental status Exam Physical Exam Vital Signs: Temp Pulse Resp BP Pulse Ox O2 Del Method O2 Flow Rate 97.6 F 89 20 109/70 96 Nasal Cannula 8 05/09/24 07:37 05/09/24 07:37 05/09/24 07:37 05/09/24 07:37 05/09/24 07:37 05/09/24 07:37 05/09/24 07:37 Narrative: EXAMINATION: Patient with altered mental status. Receptive and expressive language are intact. Patient is only oriented to self. Attention is poor Cranial nerves grossly intact Patient able to move all 4 extremities without obvious focal deficit. Formal power testing not possible. Reflexes depressed Coordination and gait not able to be tested Objective Vital Signs Vital Signs: Vital Signs - 24 hr 05/08/24 08:29 05/08/24 08:30 05/08/24 09:28 Temperature 98.6 F Pulse Rate 112 H 111 H Respiratory Rate 26 H 22 Blood Pressure 104/55 L 136/66 02 Sat by Pulse Oximetry 93 L 93 L Oxygen Delivery Method Nasal Cannula Nasal Cannula Nasal Cannula Oxygen Flow Rate 5 5 5 05/08/24 10:21 05/08/24 10:22 05/08/24 11:27 Temperature Pulse Rate 107 H 146 H Respiratory Rate 24 Blood Pressure 134/74 134/74 02 Sat by Pulse Oximetry 91 L Oxygen Delivery Method Nasal Cannula Nasal Cannula Oxygen Flow Rate 6 6 05/08/24 11:28 05/08/24 11:38 05/08/24 12:37 Temperature Pulse Rate 94 124 H 94 Respiratory Rate Blood Pressure 135/73 135/73 02 Sat by Pulse Oximetry Oxygen Delivery Method Oxygen Flow Rate 05/08/24 13:18 05/08/24 13:24 05/08/24 13:25 Temperature Pulse Rate 98 103 H 115 H Respiratory Rate 20 20 30 H Blood Pressure 135/73 02 Sat by Pulse Oximetry 90 L Oxygen Delivery Method Nasal Cannula Oxygen Flow Rate 6 05/08/24 15:00 05/08/24 16:00 05/08/24 16:51 Temperature Pulse Rate 89 85 Respiratory Rate 28 H 24 Blood Pressure 113/69 02 Sat by Pulse Oximetry 94 L Oxygen Delivery Method Nasal Cannula Nasal Cannula Oxygen Flow Rate 6 6 05/08/24 16:58 05/08/24 18:00 05/08/24 19:18 Temperature Pulse Rate 84 90 102 H Respiratory Rate 24 20 Blood Pressure 111/68 102/72 02 Sat by Pulse Oximetry 94 L Oxygen Delivery Method Nasal Cannula Oxygen Flow Rate 6 05/08/24 19:23 05/08/24 19:28 05/08/24 20:32 Temperature 98.7 F Pulse Rate 95 90 Respiratory Rate 26 H 32 H Blood Pressure 113/77 02 Sat by Pulse Oximetry 94 L Oxygen Delivery Method Nasal Cannula Nasal Cannula Oxygen Flow Rate 6 6 05/08/24 20:43 05/08/24 22:10 05/09/24 00:00 Temperature Pulse Rate 90 102 H Respiratory Rate 28 H Blood Pressure 102/72 02 Sat by Pulse Oximetry Oxygen Delivery Method Nasal Cannula Oxygen Flow Rate 6 05/09/24 00:03 05/09/24 00:26 05/09/24 03:49 Temperature 97.6 F Pulse Rate 70 70 81 Respiratory Rate 24 25 H Blood Pressure 95/68 L 95/68 L 106/71 02 Sat by Pulse Oximetry 91 L 93 L Oxygen Delivery Method Nasal Cannula Nasal Cannula Oxygen Flow Rate 6 05/09/24 06:50 05/09/24 06:50 05/09/24 07:37 Temperature 97.6 F Pulse Rate 86 86 89 Respiratory Rate 20 Blood Pressure 113/86 113/86 109/70 02 Sat by Pulse Oximetry 96 Oxygen Delivery Method Nasal Cannula Oxygen Flow Rate 8 Labs 05/08/24 03:30 05/08/24 03:30 Therapy Recommendations Therapy Recommendations: OT Recommendations OT Recommended Discharge Nursing Home Facility,Inpatient Rehab Unit Location OT Recommended Services at Physical Therapy,Occupational Therapy Discharge PT Recommendations PT Recommended Discharge Nursing Home Facility,Inpatient Rehab Unit Location PT Recommended Services at Physical Therapy,Occupational Therapy Discharge Assessment/Plan (1) Altered mental status: Qualifiers: Altered mental status type: delirium Qualified Code(s): R41.0 - Disorientation, unspecified Plan DATA REVIEW: -CTA of the chest:No acute pulmonary embolus. patchy right upper lung consolidation. Mild patchy left perihilar consolidation. Small layering pleural effusions. -Head CT May 02, 2024 nonacute, shows chronic right mastoiditis and possible otitis -MRI brain September 22, 2023 without contrast looks unremarkable aside from some chronic age-related neurodegenerative changes -Blood cultures May 02, 2024 2 of 2 group B strep, urine culture with 20,000 colonies Enterococcus faecalis and strep group B -Updated MRI of the brain: Pending ASSESSMENT: Septic encephalopathy with delirium Development of infiltrates on chest x-ray. Consider acute embolic ischemic event contributing to mental status changes given the new onset atrial fibrillation. He is being investigated in the outpatient setting for progressive cognitive decline with concern for dementia. If he has an underlying neurodegenerative disorder that would put him at increased riskfor encephalopathy/delirium. PLAN: 1. MRI brain with and without contrast (his spinal stimulator is MR- compatible)was desired but his spinal stimulator is not compatible with the 3T magnet. An MRI in the 1.5 Mishel machine without contrast has been ordered and is pending 2. Cardiology has recommended discontinuation of 10 a inhibitor and favored aspirin for prevention of stroke secondary to the [id number] score of 1 and the fact that A-fib would be secondary to sepsis. 3. Treatment of further metabolic development of infiltrates on x-ray per primary service. 3. Will follow Documented By: Jimmy Gonzalez DO 4 0824 Signed By: 05/09/[address] [facility]12-30-2024 Progress note Author Skyler Sanchez [facility] Note Date/Time May 09, 2024 1:06am [facility] [address] [place] [address] Hospitalist Progress Note Signed Patient: Juan Simon MR#: [id number] : 1955 Acct:[id number] Age/Sex: 68 / M Adm Date: 4 Loc: 4 Room: [address] [place] [address] Type: ADM IN Attending Dr: Skyler Sanchez MD Copies to: ~ Date of Service: 05/08/2024 Subjective Subjective Narrative: 68M with PMH of Asthma, celiac disease, DJD and chronic back pain s/p spinal cord stimulator and nerve ablations, frequent Falls, migraines, MANUEL who presented with AMS and admitted for the evaluation and treatment of Afib RVR andcirculatory shock Assessment And Plan PNA 04/28 There was hypoxia today CXR showed new infiltrates. switch Abx back to Zosyn and Vancomycin the patient reported abdominal pain today will obtain CTA since he is getting Abd CT too CTA chest shows No acute pulmonary embolus. patchy right upper lung consolidation. Mild patchy left perihilar consolidation. Small layering pleuraleffusions. Abdominal pain the patient reported abdominal pain today but no pain now. WBC up to 22 CT abd today shows No acute findings. Small bowel bilateral layering pleural effusions. Similar left nephrolithiasis. Supportive Circulatory shock - resolved He was given a total of multiple dose of metoprolol to control his Afib RVR. then he developed hypotension. he was given 3L of IVF. he was started on Levophed. Lactic wnl . he was admitted to the ICU . Pulmonary was consulted for critical care management Strep Bacteremia due to Strep UTI Sepsis due to above Hypotension noted in the ED with tachycardia and mild leukocytosis. he had feverup to 39.5C. he was started on broad spectrum IV antibiotics Lactic acid wnl CXR ED shows no acute cardiopulmonary abnormality Respiratory (Upper) Panel, PCR negative Blood Cx ED 05/02 Strep agalactiae urine Cx shows Enterococcus/Strep agalactiae Follow up Blood Cx 05/03 and 05/[address] Abd shows No acute intra-abdominal process. Small bilateral pleural effusions. ID consult recommendation appreciated Unasyn with Transition to PO Augmentin on DC (Plan of total 14 days) Acute toxic-metabolic encephalopathy Septic encephalopathy with delirium the patient presents with acute confusional state and behavior changes noted by his Urine Tox screen is positive for amphetamine CT brain shows no acute intracranial process Ammonia wnl ABG shows no hypercapnia Could be due to the current infection other causes can't be ruled out Depakote was discontinued due to interaction with his apixaban, doxepin was discontinued given his cardiac dysrhythmia MRI (spinal stimulator is not compatible with the 3T magnet). MRI with 1.5 Teslamachine without contrast pending neurology recommendation appreciated supportive and treatment of the underlying condition Newly diagnosed Paroxysmal Afib with RVR the patient was found to have Afib RVR in the ED with heart rate up to 150s and received multiple doses of metoprolol IV. he converted to NSR in the ED EKG ED 9:45 am shows Afib@146 bpm without significant acute changes. EKG 3:20 pm shows NSR No significant electrolyte Abnormality, Mg 1.8 (replaced) TSH in EMR wnl Echocardiogram EF 60%, Mild he was evaluated by Cardiology; he was started on Beta david, Digoxin and Eliquis, then Digoxin and Eliquis was discontinued due that afib episode was associated with sepsis 04/27 the patient is back to Afib RVR with HR up to 150s then down to 100s agree with increasing metoprolol dose was given one dose of digoxin IV Cardizem drip wean off cardiology recommendation appreciated Elevated Troponin Type II MD Troponin was found incidentally to be mildly elevated above normal limits 106 upto 311. There is no chest pain, nor significant EKG changes. This is likely type2 myocardial infarction secondary to ischemia due to increased oxygen demand and/or decreased supply in the setting of tachycardia . Troponin will be repeated. Further workup, if needed, can be done in an outpatient setting. Acute Urinary Retention Hayden was inserted Impaired mobility and ADL PT/OT has been consulted. Nursing Home Facility,Inpatient Rehab Unit was recommended. INTERVAL HPI:?As Above, Pt resting in bed. no fever Chronic diseases:?Unless mentioned Above, Essential home medications have been continued.? DVT Px:?Addressed Disposition:?To be determined Plan of care Discussed with:?the medical team, the patient at bedside Exam Physical Exam Vital Signs: Temp Pulse Resp BP Pulse Ox O2 Del Method O2 Flow Rate 37.0 C 84 24 113/69 94 L Nasal Cannula 6 05/08/24 08:29 05/08/24 16:58 05/08/24 16:58 05/08/24 15:00 05/08/24 15:00 05/08/24 16:00 05/08/24 16:00 Narrative: GEN: Cooperative, Not in acute distress. LUNGS: diminished breathing sounds CV: S1S2 nl, 2/6 systolic murmur ABD: Soft, ND, NT, + BS, ? HSM EXT: No edema in LE bilaterally. NEURO: No FND PSYCH: nl affect, nl speech, AOx1-2 Objective Lab Results 05/08/24 03:30 05/08/24 03:30 Microbiology Results Microbiology 05/03/24 14:45 Blood Blood Culture - Final NO GROWTH 5 DAYS 05/03/24 14:30 Blood Blood Culture - Final NO GROWTH 5 DAYS 05/05/24 06:33 Blood - Right Antecubital Blood Culture - Preliminary No Growth 3 Days 05/05/24 04:10 Blood - Line Blood Culture - Preliminary No Growth 3 Days ABG Interpretation ABG results: 05/08/24 14:12 ABG pH 7.47 H ABG pCO2 45.9 H ABG pO2 75.7 L ABG HCO3 32.5 H ABG Total CO2 33.9 H ABG O2 Saturation 95.1 ABG O2 Content 7.5 ABG Base Excess 7.8 H Meds Allergies and Active Meds Allergies gluten Allergy (Unknown, Verified 05/02/24 09:54) Unknown Reaction Active Meds: Active Medications Generic Name Dose Route Start Last Admin Trade Name Freq PRN Reason Stop Dose Admin Acetaminophen 650 mg 05/02/24 17:28 05/07/24 21:26 Acetaminophen 325 Mg Tablet PO 05/02/25 17:27 650 mg Q6H PRN Administration Pain 1-5 or fever Albuterol 2.5 mg 05/08/24 13:37 Albuterol Neb 2.5 Mg/3 Ml Vial.Neb INHALATION 05/02/25 17:26 Q3H PRN shortness of breath or wheezin Albuterol/Ipratropium 3 ml 05/08/24 16:00 05/08/24 16:50 Ipratropium/Albuterol 0.5-3 Mg 3 Ml Ampul.Neb INHALATION 05/08/25 15:59 3 ml QID.RESP EDIE Administration Aspirin 81 mg 05/06/24 09:00 05/08/24 08:25 Aspirin 81 Mg Tablet. PO 05/06/25 08:59 81 mg DAILY EDIE Administration Budesonide/Formoterol Fumarate 2 puff 05/02/24 21:00 05/08/24 08:09 Budesonide/Formoterol 160-4.5 Mcg 60 Puff/6 Gm Hfa.Aer.Ad INHALATION 05/02/25 20:59 2 puff BID EDIE Administration Duloxetine HCl 30 mg 05/02/24 21:00 05/08/24 08:25 Duloxetine 30 Mg Capsule. PO 05/02/25 20:59 30 mg BID EDIE Administration Diltiazem HCl 100 mg in 100 mls @ 10 mls/hr 05/07/24 15:45 05/08/24 12:37 Cardizem IV 05/07/25 15:44 15 mg/hr .Q10H EDIE 15 mls/hr Administration Protocol 10 MG/HR Vancomycin HCl 1.25 gm/ Sodium 275 mls @ 183.333 mls/hr 05/09/24 00:30 Chloride IV 05/09/25 00:29 Q12H EDIE Piperacillin Sod/Tazobactam Sod 4.5 gm in 100 mls @ 25 mls/hr 05/08/24 16:00 05/08/24 16:47 Zosyn IV 25 mls/hr Q8H EDIE Administration Magnesium Oxide 400 mg 05/07/24 16:50 05/08/24 08:25 Magnesium Oxide 400 Mg Tablet PO 05/07/25 16:49 400 mg DAILY EDIE Administration Metoprolol Succinate 50 mg 05/08/24 21:00 Metoprolol Succinate 50 Mg Tab.Er.24h PO 05/08/25 20:59 BID EDIE Montelukast Sodium 10 mg 05/02/24 22:00 05/07/24 21:26 Montelukast 10 Mg Tablet PO 05/02/25 21:59 10 mg HS EDIE Administration Morphine Sulfate 1 mg 05/08/24 13:37 Morphine Sulfate 2 Mg/Ml Vial IV-PUSH Q4H PRN Pain Scale 7 - 10 Quetiapine Fumarate 12.5 mg 05/05/24 22:00 05/07/24 21:26 Quetiapine Fumarate 12.5 Mg Tablet PO 05/05/25 21:59 12.5 mg QHS EDIE Administration Sodium Chloride 0 ml 05/02/24 09:53 05/03/24 17:15 Sodium Chloride 0.9 % 10 Ml Syringe IV-PUSH 05/02/25 09:52 10 ml PRN PRN Administration Flush Vancomycin HCl 1 each 05/08/24 11:26 Vancomycin - Pharmacy Dosing 1 Each Miscell IV ONCE PRN ZZ.Pharmacy Consult Protocol A&P - Hospitalist Assessment/Plan (1) Atrial fibrillation with rapid ventricular response: Plan Documented By: Skyler Sanchez MD 05/08/24 8830 Signed By: <Electronically signed by Skyler Sanchez MD> 05/09/24 0106 [facility] Work Phone: 1([phone]) 538-872012-30-2024 [place] [address] Hospitalist Progress Note Signed Patient: Juan Simon MR#: [id number] : 1955 Acct:[id number] Age/Sex: 68 / M Adm Date: 4 Loc: Room: [address] [place] [address] Type: ADM IN Attending Dr: Skyler Sanchez MD Copies to: ~ Date of Service: 05/08/2024 Subjective Subjective Narrative: 68M with PMH of Asthma, celiac disease, DJD and chronic back pain s/p spinal cord stimulator and nerve ablations, frequent Falls, migraines, MANUEL who presented with AMS and admitted for the evaluationand treatment of Afib RVR andcirculatory shock Assessment And Plan PNA 04/28 There was hypoxia today CXR showed new infiltrates. switch Abx back to Zosyn and Vancomycin the patient reported abdominal pain today will obtain CTA since he is getting Abd CT too CTA chest shows No acute pulmonary embolus. patchy right upper lung consolidation. Mild patchy leftperihilar consolidation. Small layering pleuraleffusions. Abdominal pain the patient reported abdominal pain today but no pain now. WBC up to 22 CT abd today shows No acute findings. Small bowel bilateral layering pleural effusions. Similar left nephrolithiasis. Supportive Circulatory shock - resolved He was given a total of multiple dose of metoprolol to control his Afib RVR. then he developed hypotension. he was given 3L of IVF. he was started on Levophed. Lactic wnl . he was admitted to the ICU. Pulmonary was consulted for critical care management Strep Bacteremia due to Strep UTI Sepsis due to above Hypotension noted in the ED with tachycardia and mild leukocytosis. he had feverup to 39.5C. he wasstarted on broad spectrum IV antibiotics Lactic acid wnl CXR ED shows no acute cardiopulmonary abnormality Respiratory (Upper) Panel, PCR negative Blood Cx ED 05/02 Strep agalactiae urine Cx shows Enterococcus/Strep agalactiae Follow up Blood Cx 05/03 and 05/[address] Abd shows No acute intra-abdominal process. Small bilateral pleural effusions. ID consult recommendation appreciated Unasyn with Transition to PO Augmentin on DC (Plan of total 14 days) Acute toxic-metabolic encephalopathy Septic encephalopathy with delirium the patient presents with acute confusional state and behavior changes noted by his Urine Tox screen is positive for amphetamine CT brain shows no acute intracranial process Ammonia wnl ABG shows no hypercapnia Could be due to the current infection other causes can't be ruled out Depakote was discontinued due to interaction with his apixaban, doxepin was discontinued given his cardiac dysrhythmia MRI (spinal stimulator is not compatible with the 3T magnet). MRI with 1.5 Teslamachine without contrast pending neurology recommendation appreciated supportive and treatment of the underlying condition Newly diagnosed Paroxysmal Afib with RVR the patient was found to have Afib RVR in the ED with heart rate up to 150s and received multiple doses of metoprolol IV. he converted to NSR in the ED EKG ED 9:45 am shows Afib@146 bpm without significant acute changes. EKG 3:20 pm shows NSR No significant electrolyte Abnormality, Mg 1.8 (replaced) TSH in EMR wnl Echocardiogram EF 60%, Mild he was evaluated by Cardiology; he was started on Beta david, Digoxin and Eliquis, then Digoxin and Eliquis was discontinued due that afib episode was associated with sepsis 04/27 the patient is back to Afib RVR with HR up to 150s then down to 100s agree with increasing metoprolol dose was given one dose of digoxin IV Cardizem drip wean off cardiology recommendation appreciated Elevated Troponin Type II MD Troponin was found incidentally to be mildly elevated above normal limits 106 upto 311. There is nochest pain, nor significant EKG changes. This is likely type2 myocardial infarction secondary to ischemia due to increased oxygen demand and/or decreased supply in the setting of tachycardia . Troponin will be repeated. Further workup, if needed, can be done in an outpatient setting. Acute Urinary Retention Hayden was inserted Impaired mobility and ADL PT/OT has been consulted. Nursing Home Facility,Inpatient Rehab Unit was recommended. INTERVAL HPI:?As Above, Pt resting in bed. no fever Chronic diseases:?Unless mentioned Above, Essential home medications have been continued.? DVT Px:?Addressed Disposition:?To be determined Plan of care Discussed with:?the medical team, the patient at bedside Exam Physical Exam Vital Signs: Temp Pulse Resp BP Pulse Ox O2 Del Method O2 Flow Rate 37.0 C 84 24 113/69 94 L Nasal Cannula 6 05/08/24 08:29 05/08/24 16:58 05/08/24 16:58 05/08/24 15:00 05/08/24 15:00 05/08/24 16:00 05/08/24 16:00 Narrative: GEN: Cooperative, Not in acute distress. LUNGS: diminished breathing sounds CV: S1S2 nl, 2/6 systolic murmur ABD: Soft, ND, NT, + BS, ? HSM EXT: No edema in LE bilaterally. NEURO: No FND PSYCH: nl affect, nl speech, AOx1-2 Objective Lab Results 05/08/24 03:30 05/08/24 03:30 Microbiology Results Microbiology 05/03/24 14:45 Blood Blood Culture - Final NO GROWTH 5 DAYS 05/03/24 14:30 Blood Blood Culture - Final NO GROWTH 5 DAYS 05/05/24 06:33 Blood - Right Antecubital Blood Culture - Preliminary No Growth 3 Days 05/05/24 04:10 Blood - Line Blood Culture - Preliminary No Growth 3 Days ABG Interpretation ABG results: 05/08/24 14:12 ABG pH 7.47 H ABG pCO2 45.9 H ABG pO2 75.7 L ABG HCO3 32.5 H ABG Total CO2 33.9 H ABG O2 Saturation 95.1 ABG O2 Content 7.5 ABG Base Excess 7.8 H Meds Allergies and Active Meds Allergies gluten Allergy (Unknown, Verified 05/02/24 09:54) Unknown Reaction Active Meds: Active Medications Generic Name Dose Route Start Last Admin Trade Name Freq PRN Reason Stop Dose Admin Acetaminophen 650 mg 05/02/24 17:28 05/07/24 21:26 Acetaminophen 325 Mg Tablet PO 05/02/25 17:27 650 mg Q6H PRN Administration Pain 1-5 or fever Albuterol 2.5 mg 05/08/24 13:37 Albuterol Neb 2.5 Mg/3 Ml Vial.Neb INHALATION 05/02/25 17:26 Q3H PRN shortness of breath or wheezin Albuterol/Ipratropium 3 ml 05/08/24 16:00 05/08/24 16:50 Ipratropium/Albuterol 0.5-3 Mg 3 Ml Ampul.Neb INHALATION 05/08/25 15:59 3 ml QID.RESP EDIE Administration Aspirin 81 mg 05/06/24 09:00 05/08/24 08:25 Aspirin 81 Mg Tablet.Dr PO 05/06/25 08:59 81 mg DAILY EDIE Administration Budesonide/Formoterol Fumarate 2 puff 05/02/24 21:00 05/08/24 08:09 Budesonide/Formoterol 160-4.5 Mcg 60 Puff/6 Gm Hfa.Aer.Ad INHALATION 05/02/25 20:59 2 puff BID EDIE Administration Duloxetine HCl 30 mg 05/02/24 21:00 05/08/24 08:25 Duloxetine 30 Mg Capsule.Dr PO 05/02/25 20:59 30 mg BID EDIE Administration Diltiazem HCl 100 mg in 100 mls @ 10 mls/hr 05/07/24 15:45 05/08/24 12:37 Cardizem IV 05/07/25 15:44 15 mg/hr .Q10H EDIE 15 mls/hr Administration Protocol 10 MG/HR Vancomycin HCl 1.25 gm/ Sodium 275 mls @ 183.333 mls/hr 05/09/24 00:30 Chloride IV 05/09/25 00:29 Q12H EDIE Piperacillin Sod/Tazobactam Sod 4.5 gm in 100 mls @ 25 mls/hr 05/08/24 16:00 05/08/24 16:47 Zosyn IV 25 mls/hr Q8H EDIE Administration Magnesium Oxide 400 mg 05/07/24 16:50 05/08/24 08:25 Magnesium Oxide 400 Mg Tablet PO 05/07/25 16:49 400 mg DAILY EDIE Administration Metoprolol Succinate 50 mg 05/08/24 21:00 Metoprolol Succinate 50 Mg Tab.Er.24h PO 05/08/25 20:59 BID EDIE Montelukast Sodium 10 mg 05/02/24 22:00 05/07/24 21:26 Montelukast 10 Mg Tablet PO 05/02/25 21:59 10 mg HS EDIE Administration Morphine Sulfate 1 mg 05/08/24 13:37 Morphine Sulfate 2 Mg/Ml Vial IV-PUSH Q4H PRN Pain Scale 7 - 10 Quetiapine Fumarate 12.5 mg 05/05/24 22:00 05/07/24 21:26 Quetiapine Fumarate 12.5 Mg Tablet PO 05/05/25 21:59 12.5 mg QHS EDIE Administration Sodium Chloride 0 ml 05/02/24 09:53 05/03/24 17:15 Sodium Chloride 0.9 % 10 Ml Syringe IV-PUSH 05/02/25 09:52 10 ml PRN PRN Administration Flush Vancomycin HCl 1 each 05/08/24 11:26 Vancomycin - Pharmacy Dosing 1 Each Miscell IV ONCE PRN ZZ.Pharmacy Consult Protocol A&P - Hospitalist Assessment/Plan (1) Atrial fibrillation with rapid ventricular response: Plan Documented By: Skyler Sanchez MD 05/08/24 175 Signed By: 05/09/[address] [facility]12-29-2024 Progress note Author Lisa Epps [facility] Note Date/Time May 08, 2024 4:39pm [facility] [address] [place] [address] Cardiology Progress Note Signed Patient: Juan Simon MR#: [id number] : 1955 Acct:[id number] Age/Sex: 68 / M Adm Date: 4 Loc: 4 Room: [address] [place] [address] Type: ADM IN Attending Dr: Skyler Sanchez MD Copies to: ~ Date of Service: 05/08/2024 Subjective Principal diagnosis: Sepsis, paroxysmal atrial fibrillation Interval history: Last night he had an episode of hypoxia and agitation with new right infiltrateson CXR possibly due to aspiration. Continues to have episodes of RVR related to increased work of breathing. This causes his heart rate to spike intermittently. At baseline his heart rate is maintaining around 90-100 bpm. Exam Physical Exam Vital Signs: Temp Pulse Resp BP Pulse Ox O2 Del Method O2 Flow Rate 98.6 F 89 28 H 113/69 94 L Nasal Cannula 6 05/08/24 08:29 05/08/24 15:00 05/08/24 15:00 05/08/24 15:00 05/08/24 15:00 05/08/24 15:00 05/08/24 15:00 Const General: no acute distress and ill appearing Nutritional Appearance: obese Orientation: alert and awake HEENT Mouth: moist mucous membranes Teeth and gingiva: fair dentition Eyes Conjunctivae: conjunctivae normal Sclera: sclerae normal Pupils: PERRL and normal by confrontation EOM: EOM intact bilaterally Direct ophthalmoscopy: no photophobia Neck Neck: no lymphadenopathy and supple Neck mass: No Thyroid: thyroid normal Carotids: normal carotid upstroke Lymphatic: no lymphadenopathy noted Resp Effort & Inspection: normal respiratory effort, able to speak in complete sentences and symmetric chest movement Auscultation: rhonchi and wheezes Cardio Jugular venous pressure: no JVD Palpation: normal PMI Rate: regular rate Rhythm: abnormal rhythm Heart Sounds: S1 normal, S2 normal and murmur Pulses: radial pulses present and femoral pulses present GI Palpation: soft and no hepatosplenomegaly Skin General: no rashes or lesions noted Neuro Cranial Nerves: CN's II-XII intact bilaterally Motor: muscle tone normal throughout Sensory Exam: no sensory deficits noted Psych Insight: fair Judgment: fair Objective Labs 05/08/24 03:30 05/08/24 03:30 Labs: Laboratory Results - last 24 hr 05/07/24 05/08/24 05/08/24 06:07 03:30 14:12 Corrected WBC 22.2 H RBC 4.04 Hgb 13.2 Hct 38.8 MCV 95.9 MCH 32.7 MCHC 34.0 RDW 15.2 H Plt Count 403 MPV 6.5 L PT 14.3 H INR 1.2 Sample Site Left radial ABG pH 7.47 H ABG pCO2 45.9 H ABG pO2 75.7 L ABG HCO3 32.5 H ABG Total CO2 33.9 H ABG O2 Saturation 95.1 ABG O2 Content 7.5 ABG Base Excess 7.8 H Liter Flow 6 FiO2 45 Critical Value PHA Creatinine Clear 94.80 Sodium 134 L Potassium 4.3 Chloride 98 Carbon Dioxide 29.3 Anion Gap 11.0 BUN 10 Creatinine 0.64 L Est GFR (CKD-EPI) > 60.0 Glucose 125 H Lactic Acid 1.0 Calcium 8.7 Magnesium 1.5 L 1.7 L Total Bilirubin 0.9 Direct Bilirubin 0.10 Indirect Bilirubin 0.8 AST 28 ALT 34 Alkaline Phosphatase 88 Troponin I High Sens 68.6 H* B-Natriuretic Peptide 499.0 H Total Protein 6.2 L Albumin 3.1 L Globulin 3.1 Albumin/Globulin Ratio 1.0 ABG Interpretation ABG results: 05/08/24 14:12 ABG pH 7.47 H ABG pCO2 45.9 H ABG pO2 75.7 L ABG HCO3 32.5 H ABG Total CO2 33.9 H ABG O2 Saturation 95.1 ABG O2 Content 7.5 ABG Base Excess 7.8 H A&P - Cardiology (1) Atrial fibrillation with rapid ventricular response: Code(s): I48.91 - Unspecified atrial fibrillation (2) Bacteremia due to Streptococcus: Code(s): R78.81 - Bacteremia; B95.5 - Unspecified streptococcus as the cause of diseases classified elsewhere (3) Sepsis: Code(s): A41.9 - Sepsis, unspecified organism (4) Altered mental status: Qualifiers: Altered mental status type: delirium Qualified Code(s): R41.0 - Disorientation, unspecified Code(s): R41.82 - Altered mental status, unspecified (5) Community acquired pneumonia: Code(s): J18.9 - Pneumonia, unspecified organism (6) Urinary tract infection: Code(s): N39.0 - Urinary tract infection, site not specified Plan # UTI with bacteremia # Pneumonia - On 05/08/24 he had an episode of hypoxia and agitation with new right infiltrates on CXR possibly due to aspiration. # Paroxysmal nonvalvular A-fib ? [id number] is 1. He had converted back to NSRthen went back into AFib due to sepsis and respiratory issues. # Other: T-cell lymphoma, celiac disease, Obesity. Echo 05/02/2024 ? EF 55-60%, normal LV size and thickness, normal diastolic function, mildly dilated LA, mild . -His episodes of RVR are due to sepsis and respiratory issues. As these improve he will have less episodes of tachycardia. -For better heart rate control will increase metoprolol to 50 mg BID. Wean off Cardizem drip as tolerated. -Stroke prophylaxis with aspirin is acceptable given his [id number] of one. -Continue treatment of pneumonia per primary team. Documented By: Lisa Epps MD 04/11 02/01 162 Signed By: <Electronically signed by Lisa Epps MD> 05/08/24 1639 [facility] Work Phone: 1(261) 934-513412-29-2024 Radiology Diagnostic study [facility] [place] [address] [place] [address] CT Scan Report Signed Patient: Juan Simon MR#: [id number] : 1955 Acct:[id number] Age/Sex: 68 / M ADM Date: 4 Loc: Room: [address] [place] [address] Type: ADM IN Attending Dr: Skyler Sanchez MD Copies to: Skyler Sanchez MD~ Ordering Provider: Skyler Sanchez MD Date of Service: 05/08/24 CT/CT abdomen pelvis w con: abdominal pain CT Abdomen and Pelvis withcontrast TECHNIQUE: Axial imaging with 2-D reconstruction.90 cc of Isovue-370. The CT exam was performed using one or more the following dose reduction techniques: Automated exposure control, adjustment of the MA and/or Kv according to patient size, or use of the iterative reconstruction technique. COMPARISON: 05/03/2024 History: Abdominal pain LIMITATIONS: None LOWER THORAX the layering pleural effusion with adjacent atelectasis LIVER: Unremarkable GALLBLADDER: Cholecystectomy clips identified. BILE DUCTS: No dilatation SPLEEN: Unremarkable PANCREAS: Atrophic changes ADRENAL GLANDS: Unremarkable KIDNEYS:Nonobstructing left renal pelvis calculus identified. No hydronephrosis. AORTA: No abdominal aortic aneurysm identified. RETROPERITONEUM: No significant retroperitoneal abnormalities identified. MESENTERY:Unremarkable SMALL BOWEL: The small bowel loops are nondistended. APPENDIX: The appendix is normal. COLON: Unremarkable URINARY BLADDER: Mild urinary bladder wall thickening. Underdistention versus cystitis. REPRODUCTIVE SYSTEM: Reproductive structures are unremarkable. PNEUMOPERITONEUM: None PERITONEAL FLUID:None BONY STRUCTURES: There are neurostimulator redemonstrated. ABDOMINAL WALL: Fat-containing inguinal hernias redemonstrated. CT/CT abdomen pelvis w con IMPRESSION: No acute findings. Small bowel bilateral layering pleural effusions. Similar left nephrolithiasis. Impression dictated by: Cliff Acuna M.D.05/08/2024 4:44 PM Dictation Location: [place] [address] Transcribed By: [facility] 05/08/24 1644 Dictated By: Cliff Acuna DO 05/08/24 1635 Signed By: 05/08/[address] [facility]12-29-20[place] [address] Cardiology Progress Note Signed Patient: Juan Simon MR#: [id number] : 1955 Acct:[id number] Age/Sex: 68 / M Adm Date: 4 Loc: Room: [address] [place] [address] Type: ADM IN Attending Dr: Skyler Sanchez MD Copies to: ~ Date of Service: 05/08/2024 Subjective Principal diagnosis: Sepsis, paroxysmal atrial fibrillation Interval history: Last night he had an episode of hypoxia and agitation with new right infiltrateson CXR possibly dueto aspiration. Continues to have episodes of RVR related to increased work of breathing. This causes his heart rate to spike intermittently. At baseline his heart rate is maintaining around 90-100 bpm. Exam Physical Exam Vital Signs: Temp Pulse Resp BP Pulse Ox O2 Del Method O2 Flow Rate 98.6 F 89 28 H 113/69 94 L Nasal Cannula 6 05/08/24 08:29 05/08/24 15:00 05/08/24 15:00 05/08/24 15:00 05/08/24 15:00 05/08/24 15:00 05/08/24 15:00 Const General: no acute distress and ill appearing Nutritional Appearance: obese Orientation: alert and awake HEENT Mouth: moist mucous membranes Teeth and gingiva: fair dentition Eyes Conjunctivae: conjunctivae normal Sclera: sclerae normal Pupils: PERRL and normal by confrontation EOM: EOM intact bilaterally Direct ophthalmoscopy: no photophobia Neck Neck: no lymphadenopathy and supple Neck mass: No Thyroid: thyroid normal Carotids: normal carotid upstroke Lymphatic: no lymphadenopathy noted Resp Effort & Inspection: normal respiratory effort, able to speak in complete sentences and symmetric chest movement Auscultation: rhonchi and wheezes Cardio Jugular venous pressure: no JVD Palpation: normal PMI Rate: regular rate Rhythm: abnormal rhythm Heart Sounds: S1 normal, S2 normal and murmur Pulses: radial pulses present and femoral pulses present GI Palpation: soft and no hepatosplenomegaly Skin General: no rashes or lesions noted Neuro Cranial Nerves: CN's II-XII intact bilaterally Motor: muscle tone normal throughout Sensory Exam: no sensory deficits noted Psych Insight: fair Judgment: fair Objective Labs 05/08/24 03:30 05/08/24 03:30 Labs: Laboratory Results - last 24 hr 05/07/24 05/08/24 05/08/24 06:07 03:30 14:12 Corrected WBC 22.2 H RBC 4.04 Hgb 13.2 Hct 38.8 MCV 95.9 MCH 32.7 MCHC 34.0 RDW 15.2 H Plt Count 403 MPV 6.5 L PT 14.3 H INR 1.2 Sample Site Left radial ABG pH 7.47 H ABG pCO2 45.9 H ABG pO2 75.7 L ABG HCO3 32.5 H ABG Total CO2 33.9 H ABG O2 Saturation 95.1 ABG O2 Content 7.5 ABG Base Excess 7.8 H Liter Flow 6 FiO2 45 Critical Value PHA Creatinine Clear 94.80 Sodium 134 L Potassium 4.3 Chloride 98 Carbon Dioxide 29.3 Anion Gap 11.0 BUN 10 Creatinine 0.64 L Est GFR (CKD-EPI) > 60.0 Glucose 125 H Lactic Acid 1.0 Calcium 8.7 Magnesium 1.5 L 1.7 L Total Bilirubin 0.9 Direct Bilirubin 0.10 Indirect Bilirubin 0.8 AST 28 ALT 34 Alkaline Phosphatase 88 Troponin I High Sens 68.6 H* B-Natriuretic Peptide 499.0 H Total Protein 6.2 L Albumin 3.1 L Globulin 3.1 Albumin/Globulin Ratio 1.0 ABG Interpretation ABG results: 05/08/24 14:12 ABG pH 7.47 H ABG pCO2 45.9 H ABG pO2 75.7 L ABG HCO3 32.5 H ABG Total CO2 33.9 H ABG O2 Saturation 95.1 ABG O2 Content 7.5 ABG Base Excess 7.8 H A&P - Cardiology (1) Atrial fibrillation with rapid ventricular response: Code(s): I48.91 - Unspecified atrial fibrillation (2) Bacteremia due to Streptococcus: Code(s): R78.81 - Bacteremia; B95.5 - Unspecified streptococcus as the cause of diseases classified elsewhere (3) Sepsis: Code(s): A41.9 - Sepsis, unspecified organism (4) Altered mental status: Qualifiers: Altered mental status type: delirium Qualified Code(s): R41.0 - Disorientation, unspecified Code(s): R41.82 - Altered mental status, unspecified (5) Community acquired pneumonia: Code(s): J18.9 - Pneumonia, unspecified organism (6) Urinary tract infection: Code(s): N39.0 - Urinary tract infection, site not specified Plan # UTI with bacteremia # Pneumonia - On 05/08/24 he had an episode of hypoxia and agitation with new right infiltrates on CXR possibly due to aspiration. # Paroxysmal nonvalvular A-fib ? [id number] is 1. He had converted back to NSRthen went back intoAFib due to sepsis and respiratory issues. # Other: T-cell lymphoma, celiac disease, Obesity. Echo 05/02/2024 ? EF 55-60%, normal LV size and thickness, normal diastolic function, mildly dilated LA, mild . -His episodes of RVR are due to sepsis and respiratory issues. As these improve he will have less episodes of tachycardia. -For better heart rate control will increase metoprolol to 50 mg BID. Wean off Cardizem drip as tolerated. -Stroke prophylaxis with aspirin is acceptable given his [id number] of one. -Continue treatment of pneumonia per primary team. Documented By: Lisa Epps MD 04/11 Signed By: 05/08/[address] [facility]12-29-2024 Radiology Diagnostic study note [facility] [place] [address] [place] [address] CT Scan Report Signed Patient: Juan Simon MR#: [id number] : 1955 Acct:[id number] Age/Sex: 68 / M ADM Date: 4 Loc: Room: [address] [place] [address] Type: ADM IN Attending Dr: Skyler Sanchez MD Copies to: Skyler Sanchez MD~ Ordering Provider: Skyler Sanchez MD Date of Service: 05/08/24 CT/CT angio chest PE protocol: hypoxia CTA Chest with PE protocol TECHNIQUE: Axial imaging with 2-D and 3-D reconstruction. 90cc of Isovue-[address] exam was performed using one or more the following dose reduction techniques: Automated exposure control, adjustment of the MA and/or Kvaccording to patient size, or use of the iterative reconstruction technique. History: Hypoxia. Abdominal pain. COMPARISON: None THYROID: Unremarkable TRACHEA AND BRONCHI: Patent ESOPHAGUS: Unremarkable. HEART: Within normal limits PERICARDIAL EFFUSION: None CORONARY ARTERY CALCIFICATION: None MEDIASTINUM: No adenopathy. No pneumoperitoneum. No mediastinal hematoma. PULMONARY CAROLYN: No hilar mass or adenopathy is seen. THORACIC AORTA Unremarkable PULMONARY EMBOLUS: None LUNG NODULE None LUNGS: Patchy right upper lung consolidation. Subtle consolidation of left perihilar region. PLEURAL EFFUSION: A small layering pleural effusions. PNEUMOTHORAX: No pneumothorax seen. CHEST WALL: No abnormality AXILLA: Unremarkable BONY STRUCTURES Intact UPPER ABDOMEN: Images of the upper abdomen are noncontributory. CT/CT angio chest PE protocol IMPRESSION: No acute pulmonary embolus. patchy right upper lung consolidation. Mild patchy left perihilar consolidation. Small layering pleural effusions. Impression dictated by: Cliff Acuna M.D.05/08/2024 4:35 PM Dictation Location: [place] [address] Transcribed By: [facility] 05/08/24 163 Dictated By: Cliff Acuna DO 05/08/24 1630 Signed By: 05/08/[address] [facility]12-29-2024 Progress note Author Jimmy Gonzalez [facility] Note Date/Time May 08, 2024 12:20pm [facility] [address] [place] [address] Neurology Progress Note Signed Patient: Juan Simon MR#: [id number] : 1955 Acct:[id number] Age/Sex: 68 / M Adm Date: 4 Loc: Room: [address] [place] [address] Type: ADM IN Attending Dr: Skyler Sanchez MD Copies to: ~ Date of Service: 05/08/2024 Subjective Subjective Narrative: Patient still with delirium. MRI still pending. Patient unfortunately had further confusion overnight. It appears that he is developed further infiltrates on chest x-ray. Further treatment has been initiated from an antibiotics perspective and I suspect that this is contributed. The patient was restless and is now getting some rest and sleeping. Apparently did not sleep at all last night has been agitated and fidgeting. He does have aone-on-one sitter and his accompanying him today. Review of Systems Review of Systems Unobtainable due to mental status Exam Physical Exam Vital Signs: Temp Pulse Resp BP Pulse Ox O2 Del Method O2 Flow Rate 98.6 F 146 H 24 134/74 91 L Nasal Cannula 6 05/08/24 08:29 05/08/24 10:22 05/08/24 10:21 05/08/24 10:22 05/08/24 10:21 05/08/24 10:21 05/08/24 10:21 Narrative: EXAMINATION: In no distress. No deformities or trauma. Limbs seem well-perfused. No significant edema. Normal work of breathing. Visualized skin is generally intact and without lesions. Affect normal. He is alert. Not oriented. Attention significantly impaired. No clear aphasia. Pupils are equal and reactive. Ocular motility is full. No nystagmus. Facial sensation is normal. Hearing is normal. Facial strength is normal. Tongue is midline. Muscle strength unable to be formally assessed due to confusion. However, tone and bulk appear normal. Mild tremors. Light touch is intact. No ataxia in upper extremities. Gait obviously not assessed due to mental status changes Objective Vital Signs Vital Signs: Vital Signs - 24 hr 05/07/24 11:34 05/07/24 11:35 05/07/24 15:28 Temperature 98.1 F Pulse Rate 105 H Respiratory Rate 23 Blood Pressure 128/73 02 Sat by Pulse Oximetry 96 Oxygen Delivery Method Nasal Cannula Nasal Cannula Nasal Cannula Oxygen Flow Rate 1 1 1 05/07/24 15:29 05/07/24 16:09 05/07/24 16:55 Temperature 98.5 F Pulse Rate 102 H 105 H Respiratory Rate 24 Blood Pressure 135/85 123/80 121/79 02 Sat by Pulse Oximetry 97 95 Oxygen Delivery Method Nasal Cannula Nasal Cannula Oxygen Flow Rate 1 1 05/07/24 17:58 05/07/24 18:57 05/07/24 20:00 Temperature Pulse Rate Respiratory Rate Blood Pressure 129/81 109/70 02 Sat by Pulse Oximetry 96 Oxygen Delivery Method Nasal Cannula Nasal Cannula Oxygen Flow Rate 1 1 05/07/24 20:56 05/07/24 22:00 05/08/24 00:00 Temperature 98.6 F Pulse Rate 102 H Respiratory Rate 20 Blood Pressure 136/76 02 Sat by Pulse Oximetry 95 Oxygen Delivery Method Nasal Cannula Nasal Cannula Nasal Cannula Oxygen Flow Rate 1 1 1 05/08/24 00:00 05/08/24 02:00 05/08/24 02:01 Temperature 98.5 F Pulse Rate 110 H 115 H Respiratory Rate 20 Blood Pressure 181/82 H 160/82 H 02 Sat by Pulse Oximetry 94 L Oxygen Delivery Method Nasal Cannula Nasal Cannula Oxygen Flow Rate 1 2 05/08/24 02:01 05/08/24 04:00 05/08/24 05:26 Temperature 98 F Pulse Rate 115 H 119 H Respiratory Rate 20 Blood Pressure 160/82 H 149/92 H 02 Sat by Pulse Oximetry 92 L Oxygen Delivery Method Nasal Cannula Nasal Cannula Oxygen Flow Rate 5 5 05/08/24 08:00 05/08/24 08:29 05/08/24 08:30 Temperature 98.6 F Pulse Rate 112 H Respiratory Rate 26 H Blood Pressure 104/55 L 02 Sat by Pulse Oximetry 93 L 93 L Oxygen Delivery Method Nasal Cannula Nasal Cannula Nasal Cannula Oxygen Flow Rate 4 5 5 05/08/24 09:28 05/08/24 10:21 05/08/24 10:22 Temperature Pulse Rate 111 H 107 H 146 H Respiratory Rate 22 24 Blood Pressure 136/66 134/74 134/74 02 Sat by Pulse Oximetry 93 L 91 L Oxygen Delivery Method Nasal Cannula Nasal Cannula Oxygen Flow Rate 5 6 Labs 05/08/24 03:30 05/08/24 03:30 Therapy Recommendations Therapy Recommendations: OT Recommendations OT Recommended Discharge Nursing Home Facility,Inpatient Rehab Unit Location OT Recommended Services at Physical Therapy,Occupational Therapy Discharge PT Recommendations PT Recommended Discharge Nursing Home Facility,Inpatient Rehab Unit Location PT Recommended Services at Physical Therapy,Occupational Therapy Discharge Assessment/Plan (1) Altered mental status: Qualifiers: Altered mental status type: delirium Qualified Code(s): R41.0 - Disorientation, unspecified Plan DATA REVIEW: -Head CT May 02, 2024 nonacute, shows chronic right mastoiditis and possible otitis -MRI brain September 22, 2023 without contrast looks unremarkable aside from some chronic age-related neurodegenerative changes -Blood cultures May 02, 2024 2 of 2 group B strep, urine culture with 20,000 colonies Enterococcus faecalis and strep group B ASSESSMENT: Septic encephalopathy with delirium which has unfortunately worsened overnight and noted to have further development of infiltrates on chest x-ray. Consider acute embolic ischemic event contributing to mental status changes given the newonset atrial fibrillation. He is being investigated in the outpatient setting for progressive cognitive decline with concern for dementia. If he has an underlying neurodegenerative disorder that would put him at increased risk for encephalopathy/delirium. PLAN: 1. MRI brain with and without contrast (his spinal stimulator is MR- compatible)was desired but his spinal stimulator is not compatible with the 3T magnet. An MRI in the 1.5 Mishel machine without contrast has been ordered and is pending 2. Apixaban has been initiated for the atrial fibrillation. Cardiology following. 3. Treatment of further metabolic development of infiltrates on x-ray per primary service. 3. Will follow Documented By: Jimmy Gonzalez DO 4 1047 Signed By: <Electronically signed by Jimmy Gonzalez DO> 05/08/24 1220 [facility] Work Phone: [phone]) [phone] [place] [address] Neurology Progress Note Signed Patient: Juan Simon MR#: [id number] : 1955 Acct:[id number] Age/Sex: 68 / M Adm Date: 4 Loc: Room: [address] [place] [address] Type: ADM IN Attending Dr: Skyler Sanchez MD Copies to: ~ Date of Service: 05/08/2024 Subjective Subjective Narrative: Patient still with delirium. MRI still pending. Patient unfortunately had further confusion overnight. It appears that he is developed further infiltrates on chest x-ray. Further treatment has been initiated from an antibiotics perspective and I suspect that this is contributed. The patient was restless and is now getting some rest and sleeping. Apparently did not sleep at alllast night has been agitated and fidgeting. He does have aone-on-one sitter and his accompanying him today. Review of Systems Review of Systems Unobtainable due to mental status Exam Physical Exam Vital Signs: Temp Pulse Resp BP Pulse Ox O2 Del Method O2 Flow Rate 98.6 F 146 H 24 134/74 91 L Nasal Cannula 6 05/08/24 08:29 05/08/24 10:22 05/08/24 10:21 05/08/24 10:22 05/08/24 10:21 05/08/24 10:21 05/08/24 10:21 Narrative: EXAMINATION: In no distress. No deformities or trauma. Limbs seem well-perfused. No significant edema. Normal work of breathing. Visualized skin is generally intact and without lesions. Affect normal. He is alert. Not oriented. Attention significantly impaired. No clear aphasia. Pupils are equal and reactive. Ocular motility is full. No nystagmus. Facial sensation is normal. Hearing is normal. Facial strength is normal. Tongue is midline. Muscle strength unable to be formally assessed due to confusion. However, tone and bulk appear normal. Mild tremors. Light touch is intact. No ataxia in upper extremities. Gait obviously not assessed due to mental status changes Objective Vital Signs Vital Signs: Vital Signs - 24 hr 05/07/24 11:34 05/07/24 11:35 05/07/24 15:28 Temperature 98.1 F Pulse Rate 105 H Respiratory Rate 23 Blood Pressure 128/73 02 Sat by Pulse Oximetry 96 Oxygen Delivery Method Nasal Cannula Nasal Cannula Nasal Cannula Oxygen Flow Rate 1 1 1 05/07/24 15:29 05/07/24 16:09 05/07/24 16:55 Temperature 98.5 F Pulse Rate 102 H 105 H Respiratory Rate 24 Blood Pressure 135/85 123/80 121/79 02 Sat by Pulse Oximetry 97 95 Oxygen Delivery Method Nasal Cannula Nasal Cannula Oxygen Flow Rate 1 1 05/07/24 17:58 05/07/24 18:57 05/07/24 20:00 Temperature Pulse Rate Respiratory Rate Blood Pressure 129/81 109/70 02 Sat by Pulse Oximetry 96 Oxygen Delivery Method Nasal Cannula Nasal Cannula Oxygen Flow Rate 1 1 05/07/24 20:56 05/07/24 22:00 05/08/24 00:00 Temperature 98.6 F Pulse Rate 102 H Respiratory Rate 20 Blood Pressure 136/76 02 Sat by Pulse Oximetry 95 Oxygen Delivery Method Nasal Cannula Nasal Cannula Nasal Cannula Oxygen Flow Rate 1 1 1 05/08/24 00:00 05/08/24 02:00 05/08/24 02:01 Temperature 98.5 F Pulse Rate 110 H 115 H Respiratory Rate 20 Blood Pressure 181/82 H 160/82 H 02 Sat by Pulse Oximetry 94 L Oxygen Delivery Method Nasal Cannula Nasal Cannula Oxygen Flow Rate 1 2 05/08/24 02:01 05/08/24 04:00 05/08/24 05:26 Temperature 98 F Pulse Rate 115 H 119 H Respiratory Rate 20 Blood Pressure 160/82 H 149/92 H 02 Sat by Pulse Oximetry 92 L Oxygen Delivery Method Nasal Cannula Nasal Cannula Oxygen Flow Rate 5 5 05/08/24 08:00 05/08/24 08:29 05/08/24 08:30 Temperature 98.6 F Pulse Rate 112 H Respiratory Rate 26 H Blood Pressure 104/55 L 02 Sat by Pulse Oximetry 93 L 93 L Oxygen Delivery Method Nasal Cannula Nasal Cannula Nasal Cannula Oxygen Flow Rate 4 5 5 05/08/24 09:28 05/08/24 10:21 05/08/24 10:22 Temperature Pulse Rate 111 H 107 H 146 H Respiratory Rate 22 24 Blood Pressure 136/66 134/74 134/74 02 Sat by Pulse Oximetry 93 L 91 L Oxygen Delivery Method Nasal Cannula Nasal Cannula Oxygen Flow Rate 5 6 Labs 05/08/24 03:30 05/08/24 03:30 Therapy Recommendations Therapy Recommendations: OT Recommendations OT Recommended Discharge Nursing Home Facility,Inpatient Rehab Unit Location OT Recommended Services at Physical Therapy,Occupational Therapy Discharge PT Recommendations PT Recommended Discharge Nursing Home Facility,Inpatient Rehab Unit Location PT Recommended Services at Physical Therapy,Occupational Therapy Discharge Assessment/Plan (1) Altered mental status: Qualifiers: Altered mental status type: delirium Qualified Code(s): R41.0 - Disorientation, unspecified Plan DATA REVIEW: -Head CT May 02, 2024 nonacute, shows chronic right mastoiditis and possible otitis -MRI brain September 22, 2023 without contrast looks unremarkable aside from some chronic age-related neurodegenerative changes -Blood cultures May 02, 2024 2 of 2 group B strep, urine culture with 20,000 colonies Enterococcus faecalis and strep group B ASSESSMENT: Septic encephalopathy with delirium which has unfortunately worsened overnight and noted to have further development of infiltrates on chest x-ray. Consider acute embolic ischemic event contributing to mental status changes given the newonset atrial fibrillation. He is being investigated in the outpatient setting for progressive cognitive decline with concern for dementia. If he has an underlying neurodegenerative disorder that would put him at increased riskfor encephalopathy/delirium. PLAN: 1. MRI brain with and without contrast (his spinal stimulator is MR- compatible)was desired but his spinal stimulator is not compatible with the 3T magnet. An MRI in the 1.5 Mishel machine without contrast has been ordered and is pending 2. Apixaban has been initiated for the atrial fibrillation. Cardiology following. 3. Treatment of further metabolic development of infiltrates on x-ray per primary service. 3. Will follow Documented By: Jimmy Gonzalez DO 4 [id number] Signed By: 05/08/[address] [facility]12-29-2024 Progress note Author Alvin Crisostomo [facility] Note Date/Time May 08, 2024 4:46am [facility] [address] [place] [address] Event Note Signed with Addenda Patient: Juan Simon MR#: [id number] : 1955 Acct:[id number] Age/Sex: 68 / M Adm Date: 4 Loc: Room: [address] [place] [address] Type: ADM IN Attending Dr: Skyler Sanchez MD Copies to: MD Tatiana Oliva Jr, DO Skyler Sanchez MD~ ADDENDUM1 Review of the chest x-ray shows right more than left pulmonary infiltrates. BNPis elevated. Fluid overload is thus possible although an aspiration event in the setting of confusion is also possible. Will administer Lasix IV 40 mg every8 hours. He is already on antibiotics. Follow final report Addendum Documented By: Alvin Crisostomo MD 05/08/24445 Addendum Signed By: <Electronically signed by Alvin Crisostomo MD> 05/08/24445 Status Event Note Event Note DATE OF EVENT: 05/08/24 EVENT DETAILS: Patient was seen for agitation and hypoxia. He has been confused on and off throughout the course of the hospital stay. I was notified that he appeared to be more agitated, more hypoxic and mottled. On exam the patient was oriented toself only. He was answering only very simple commands but unable to carry out any meaningful conversation. Complains of some mild abdominal pain in the epigastric area. Physical exam showed minimal urine in the bladder by ultrasound. Skin of the lower extremities is intermittently mottled. He had faint expiratory wheezes and was mildly tachypneic. He was tachycardic but there is no evidence of heartfailure. A-fib is reasonably well-controlled. Heart was mimi well no evidence of LV or RV dysfunction. No clear evidence of fluid overload. There is no fever to suspect recurrence of sepsis. Assessment is agitation of unclear etiology, likely delirium related to sepsis, hospitalization. Will order the morning labs earlier. Will repeat LFTs and will get a lactic acid. Bronchodilators are available as needed for wheezing. TIME W/PATIENT (# MINS): 15 Documented By: Alvni Crisostomo MD 05/08/24 0336 Signed By: <Electronically signed by Alvin Crisostomo MD> 05/08/24 0340 [facility] Work Phone: 1(187) 351-172412-29-2024 [place] [id number] Event Note Signed with Addenda Patient: Juan Simon MR#: [id number] : 1955 Acct:[id number] Age/Sex: 68 / M Adm Date: 4 Loc: Room: [address] [place] [address] Type: ADM IN Attending Dr: Skyler Sanchez MD Copies to: MD Tatiana Oliva Jr, DO Skyler Sanchez MD~ ADDENDUM1 Review of the chest x-ray shows right more than left pulmonary infiltrates. BNPis elevated. Fluid overload is thus possible although an aspiration event in the setting of confusion is also possible. Will administer Lasix IV 40 mg every8 hours. He is already on antibiotics. Follow final report Addendum Documented By: Alvin Crisostomo MD 05/08/24445 Addendum Signed By: 05/08/24445 Status Event Note Event Note DATE OF EVENT: 05/08/24 EVENT DETAILS: Patient was seen for agitation and hypoxia. He has been confused on and off throughout the course of the hospital stay. I was notified that he appeared to be more agitated, more hypoxic and mottled. On exam the patient was oriented toself only. He was answering only very simple commands but unable to carry out any meaningful conversation. Complains of some mild abdominal pain in the epigastric area. Physical exam showed minimal urine in the bladder by ultrasound. Skin of the lower extremities is intermittently mottled. He had faint expiratory wheezes and was mildly tachypneic. He was tachycardicbut there is no evidence of heartfailure. A-fib is reasonably well-controlled. Heart was mimi well no evidence of LV or RV dysfunction. No clear evidence of fluid overload. There is no fever to suspect recurrence of sepsis. Assessment is agitation of unclear etiology, likely delirium related to sepsis, hospitalization. Will order the morning labs earlier. Will repeat LFTs and will get a lactic acid. Bronchodilators are available as needed for wheezing. TIME W/PATIENT (# MINS): 15 Documented By: Alvin Crisostomo MD 05/08/24 0336 Signed By: 05/08/[address] [facility]12-29-2024 Progress note Author Skyler Sanchez [facility] Note Date/Time May 08, 2024 12:05am [facility] [address] [place], [place] [id number] Hospitalist Progress Note Signed Patient: Juan Simon MR#: [id number] : 1955 Acct:[id number] Age/Sex: 68 / M Adm Date: 4 Loc: Room: [address] [place] [address] Type: ADM IN Attending Dr: Skyler Sanchez MD Copies to: ~ Date of Service: 05/07/2024 Subjective Subjective Narrative: 68M with PMH of Asthma, celiac disease, DJD and chronic back pain s/p spinal cord stimulator and nerve ablations, frequent Falls, migraines, MANUEL who presented with AMS and admitted for the evaluation and treatment of Afib RVR andcirculatory shock Assessment And Plan Circulatory shock - resolved He was given a total of multiple dose of metoprolol to control his Afib RVR. then he developed hypotension. he was given 3L of IVF. he was started on Levophed. Lactic wnl . he was admitted to the ICU . Pulmonary was consulted for critical care management Strep Bacteremia due to Strep UTI Sepsis due to above Hypotension noted in the ED with tachycardia and mild leukocytosis. he had feverup to 39.5C. he was started on broad spectrum IV antibiotics Lactic acid wnl CXR ED shows no acute cardiopulmonary abnormality Respiratory (Upper) Panel, PCR negative Blood Cx ED 05/02 Strep agalactiae urine Cx shows Enterococcus/Strep agalactiae Follow up Blood Cx 05/03 and 05/[address] Abd shows No acute intra-abdominal process. Small bilateral pleural effusions. ID consult recommendation appreciated Unasyn with Transition to PO Augmentin on DC (Plan of total 14 days) Acute toxic-metabolic encephalopathy Septic encephalopathy with delirium the patient presents with acute confusional state and behavior changes noted by his Urine Tox screen is positive for amphetamine CT brain shows no acute intracranial process Ammonia wnl ABG shows no hypercapnia Could be due to the current infection other causes can't be ruled out Depakote was discontinued due to interaction with his apixaban, doxepin was discontinued given his cardiac dysrhythmia MRI (spinal stimulator is not compatible with the 3T magnet) can do 1.5 Mishel machine without contrast which we don't have (can be done as outpatient) neurology recommendation appreciated supportive and treatment of the underlying condition Newly diagnosed Paroxysmal Afib with RVR the patient was found to have Afib RVR in the ED with heart rate up to 150s and received multiple doses of metoprolol IV. he converted to NSR in the ED EKG ED 9:45 am shows Afib@146 bpm without significant acute changes. EKG 3:20 pm shows NSR No significant electrolyte Abnormality, Mg 1.8 (replaced) TSH in EMR wnl Echocardiogram EF 60%, Mild he was evaluated by Cardiology; he was started on Beta david, Digoxin and Eliquis, then Digoxin and Eliquis was discontinued due that afib episode was associated with sepsis 04/27 the patient is back to Afib RVR with HR up to 150s then down to 100s increased metoprolol dose to 50 mg (given one dose now) recheck Mg and keep Mg > 2 start Cardizem drip call back cardiology for reeval Elevated Troponin Type II MD Troponin was found incidentally to be mildly elevated above normal limits 106 upto 311. There is no chest pain, nor significant EKG changes. This is likely type2 myocardial infarction secondary to ischemia due to increased oxygen demand and/or decreased supply in the setting of tachycardia . Troponin will be repeated. Further workup, if needed, can be done in an outpatient setting. Acute Urinary Retention Hayden was inserted Impaired mobility and ADL PT/OT has been consulted. Nursing Home Facility,Inpatient Rehab Unit was recommended. INTERVAL HPI:?As Above, Pt resting in bed. no fever Chronic diseases:?Unless mentioned Above, Essential home medications have been continued.? DVT Px:?Addressed Disposition:?To be determined Plan of care Discussed with:?the medical team, the patient at bedside Exam Physical Exam Vital Signs: Temp Pulse Resp BP Pulse Ox O2 Del Method O2 Flow Rate 36.9 C 110 H 18 127/74 95 Nasal Cannula 2 05/07/24 08:18 05/07/24 08:18 05/07/24 08:18 05/07/24 08:18 05/07/24 08:18 05/07/24 08:18 05/07/24 08:18 Narrative: GEN: Cooperative, Not in acute distress. LUNGS: diminished breathing sounds CV: S1S2 nl, 2/6 systolic murmur ABD: Soft, ND, NT, + BS, ? HSM EXT: No edema in LE bilaterally. NEURO: No FND PSYCH: nl affect, nl speech, AOx1-2 Objective Lab Results 05/05/24 04:10 05/07/24 06:07 Microbiology Results Microbiology 05/05/24 06:33 Blood - Right Antecubital Blood Culture - Preliminary No Growth 2 Days 05/05/24 04:10 Blood - Line Blood Culture - Preliminary No Growth 2 Days 05/03/24 14:45 Blood Blood Culture - Preliminary No Growth 3 Days 05/03/24 14:30 Blood Blood Culture - Preliminary No Growth 3 Days Meds Allergies and Active Meds Allergies gluten Allergy (Unknown, Verified 05/02/24 09:54) Unknown Reaction Active Meds: Active Medications Generic Name Dose Route Start Last Admin Trade Name Korina PRN Reason Stop Dose Admin Acetaminophen 650 mg 05/02/24 17:28 05/05/24 20:26 Acetaminophen 325 Mg Tablet PO 05/02/25 17:27 650 mg Q6H PRN Administration Pain 1-5 or fever Albuterol 2.5 mg 05/02/24 17:27 05/07/24 05:03 Albuterol Neb 2.5 Mg/3 Ml Vial.Neb INHALATION 05/02/25 17:26 2.5 mg Q2H PRN Administration shortness of breath or wheezing Aspirin 81 mg 05/06/24 09:00 05/07/24 08:10 Aspirin 81 Mg Tablet.Dr CHO 05/06/25 08:59 81 mg DAILY EDIE Administration Budesonide/Formoterol Fumarate 2 puff 05/02/24 21:00 05/07/24 05:04 Budesonide/Formoterol 160-4.5 Mcg 60 Puff/6 Gm Hfa.Aer.Ad INHALATION 05/02/25 20:59 2 puff BID EDIE Administration Duloxetine HCl 30 mg 05/02/24 21:00 05/07/24 08:10 Duloxetine 30 Mg Capsule. PO 05/02/25 20:59 30 mg BID EDIE Administration Sodium Chloride 500 mls @ 1 mls/hr 05/03/24 01:27 05/03/24 02:42 0.9% Sodium Chloride 500 Ml INTRA-ISREAL 05/03/25 01:26 1 mls/hr ONCE PRN Administration CVP Ampicillin Sodium/Sulbactam Sodium 3 gm in 100 mls @ 200 mls/hr 05/05/24 14:00 05/07/24 08:11 Unasyn IV 200 mls/hr Q6H EDIE Administration Metoprolol Succinate 25 mg 05/05/24 21:00 05/06/24 21:31 Metoprolol Succinate 25 Mg Tab.Er.24h PO 05/05/25 20:59 25 mg QPM EDIE Administration Montelukast Sodium 10 mg 05/02/24 22:00 05/06/24 21:32 Montelukast 10 Mg Tablet PO 05/02/25 21:59 10 mg HS EDIE Administration Quetiapine Fumarate 12.5 mg 05/05/24 22:00 05/06/24 21:32 Quetiapine Fumarate 12.5 Mg Tablet PO 05/05/25 21:59 12.5 mg QHS EDIE Administration Sodium Chloride 0 ml 05/02/24 09:53 05/03/24 17:15 Sodium Chloride 0.9 % 10 Ml Syringe IV-PUSH 05/02/25 09:52 10 ml PRN PRN Administration Flush A&P - Hospitalist Assessment/Plan (1) Atrial fibrillation with rapid ventricular response: Plan Documented By: Skyler Sanchez MD 05/07/24 1128 Signed By: <Electronically signed by Skyler Sanchez MD> 05/08/24 0005 [facility] Work Phone: [phone]) 326-857912-29-2024 [place] [address] Hospitalist Progress Note Signed Patient: Juan Simon MR#: [id number] : 1955 Acct:[id number] Age/Sex: 68 / M Adm Date: 4 Loc: Room: [address] [place] [address] Type: ADM IN Attending Dr: Skyler Sanchez MD Copies to: ~ Date of Service: 05/07/2024 Subjective Subjective Narrative: 68M with PMH of Asthma, celiac disease, DJD and chronic back pain s/p spinal cord stimulator and nerve ablations, frequent Falls, migraines, MANUEL who presented with AMS and admitted for the evaluationand treatment of Afib RVR andcirculatory shock Assessment And Plan Circulatory shock - resolved He was given a total of multiple dose of metoprolol to control his Afib RVR. then he developed hypotension. he was given 3L of IVF. he was started on Levophed. Lactic wnl . he was admitted to the ICU. Pulmonary was consulted for critical care management Strep Bacteremia due to Strep UTI Sepsis due to above Hypotension noted in the ED with tachycardia and mild leukocytosis. he had feverup to 39.5C. he wasstarted on broad spectrum IV antibiotics Lactic acid wnl CXR ED shows no acute cardiopulmonary abnormality Respiratory (Upper) Panel, PCR negative Blood Cx ED 05/02 Strep agalactiae urine Cx shows Enterococcus/Strep agalactiae Follow up Blood Cx 05/03 and 05/[address] Abd shows No acute intra-abdominal process. Small bilateral pleural effusions. ID consult recommendation appreciated Unasyn with Transition to PO Augmentin on DC (Plan of total 14 days) Acute toxic-metabolic encephalopathy Septic encephalopathy with delirium the patient presents with acute confusional state and behavior changes noted by his Urine Tox screen is positive for amphetamine CT brain shows no acute intracranial process Ammonia wnl ABG shows no hypercapnia Could be due to the current infection other causes can't be ruled out Depakote was discontinued due to interaction with his apixaban, doxepin was discontinued given his cardiac dysrhythmia MRI (spinal stimulator is not compatible with the 3T magnet) can do 1.5 Mishel machine without contrast which we don't have (can be done as outpatient) neurology recommendation appreciated supportive and treatment of the underlying condition Newly diagnosed Paroxysmal Afib with RVR the patient was found to have Afib RVR in the ED with heart rate up to 150s and received multiple doses of metoprolol IV. he converted to NSR in the ED EKG ED 9:45 am shows Afib@146 bpm without significant acute changes. EKG 3:20 pm shows NSR No significant electrolyte Abnormality, Mg 1.8 (replaced) TSH in EMR wnl Echocardiogram EF 60%, Mild he was evaluated by Cardiology; he was started on Beta david, Digoxin and Eliquis, then Digoxin and Eliquis was discontinued due that afib episode was associated with sepsis 04/27 the patient is back to Afib RVR with HR up to 150s then down to 100s increased metoprolol dose to 50 mg (given one dose now) recheck Mg and keep Mg > 2 start Cardizem drip call back cardiology for reeval Elevated Troponin Type II MD Troponin was found incidentally to be mildly elevated above normal limits 106 upto 311. There is nochest pain, nor significant EKG changes. This is likely type2 myocardial infarction secondary to ischemia due to increased oxygen demand and/or decreased supply in the setting of tachycardia . Troponin will be repeated. Further workup, if needed, can be done in an outpatient setting. Acute Urinary Retention Hayden was inserted Impaired mobility and ADL PT/OT has been consulted. Nursing Home Facility,Inpatient Rehab Unit was recommended. INTERVAL HPI:?As Above, Pt resting in bed. no fever Chronic diseases:?Unless mentioned Above, Essential home medications have been continued.? DVT Px:?Addressed Disposition:?To be determined Plan of care Discussed with:?the medical team, the patient at bedside Exam Physical Exam Vital Signs: Temp Pulse Resp BP Pulse Ox O2 Del Method O2 Flow Rate 36.9 C 110 H 18 127/74 95 Nasal Cannula 2 05/07/24 08:18 05/07/24 08:18 05/07/24 08:18 05/07/24 08:18 05/07/24 08:18 05/07/24 08:18 05/07/24 08:18 Narrative: GEN: Cooperative, Not in acute distress. LUNGS: diminished breathing sounds CV: S1S2 nl, 2/6 systolic murmur ABD: Soft, ND, NT, + BS, ? HSM EXT: No edema in LE bilaterally. NEURO: No FND PSYCH: nl affect, nl speech, AOx1-2 Objective Lab Results 05/05/24 04:10 05/07/24 06:07 Microbiology Results Microbiology 05/05/24 06:33 Blood - Right Antecubital Blood Culture - Preliminary No Growth 2 Days 05/05/24 04:10 Blood - Line Blood Culture - Preliminary No Growth 2 Days 05/03/24 14:45 Blood Blood Culture - Preliminary No Growth 3 Days 05/03/24 14:30 Blood Blood Culture - Preliminary No Growth 3 Days Meds Allergies and Active Meds Allergies gluten Allergy (Unknown, Verified 05/02/24 09:54) Unknown Reaction Active Meds: Active Medications Generic Name Dose Route Start Last Admin Trade Name Sebastianq PRN Reason Stop Dose Admin Acetaminophen 650 mg 05/02/24 17:28 05/05/24 20:26 Acetaminophen 325 Mg Tablet PO 05/02/25 17:27 650 mg Q6H PRN Administration Pain 1-5 or fever Albuterol 2.5 mg 05/02/24 17:27 05/07/24 05:03 Albuterol Neb 2.5 Mg/3 Ml Vial.Neb INHALATION 05/02/25 17:26 2.5 mg Q2H PRN Administration shortness of breath or wheezing Aspirin 81 mg 05/06/24 09:00 05/07/24 08:10 Aspirin 81 Mg Tablet. PO 05/06/25 08:59 81 mg DAILY EDIE Administration Budesonide/Formoterol Fumarate 2 puff 05/02/24 21:00 05/07/24 05:04 Budesonide/Formoterol 160-4.5 Mcg 60 Puff/6 Gm Hfa.Aer.Ad INHALATION 05/02/25 20:59 2 puff BID EDIE Administration Duloxetine HCl 30 mg 05/02/24 21:00 05/07/24 08:10 Duloxetine 30 Mg Capsule.Dr PO 05/02/25 20:59 30 mg BID EDIE Administration Sodium Chloride 500 mls @ 1 mls/hr 05/03/24 01:27 05/03/24 02:42 0.9% Sodium Chloride 500 Ml INTRA-ISREAL 05/03/25 01:26 1 mls/hr ONCE PRN Administration CVP Ampicillin Sodium/Sulbactam Sodium 3 gm in 100 mls @ 200 mls/hr 05/05/24 14:00 05/07/24 08:11 Unasyn IV 200 mls/hr Q6H EDIE Administration Metoprolol Succinate 25 mg 05/05/24 21:00 05/06/24 21:31 Metoprolol Succinate 25 Mg Tab.Er.24h PO 05/05/25 20:59 25 mg QPM EDIE Administration Montelukast Sodium 10 mg 05/02/24 22:00 05/06/24 21:32 Montelukast 10 Mg Tablet PO 05/02/25 21:59 10 mg HS EDIE Administration Quetiapine Fumarate 12.5 mg 05/05/24 22:00 05/06/24 21:32 Quetiapine Fumarate 12.5 Mg Tablet PO 05/05/25 21:59 12.5 mg QHS EDIE Administration Sodium Chloride 0 ml 05/02/24 09:53 05/03/24 17:15 Sodium Chloride 0.9 % 10 Ml Syringe IV-PUSH 05/02/25 09:52 10 ml PRN PRN Administration Flush A&P - Hospitalist Assessment/Plan (1) Atrial fibrillation with rapid ventricular response: Plan Documented By: Skyler Sanchez MD 05/07/24 1128 Signed By: 05/08/[address] [facility]12-28-2024 Progress note Author Jimmy Gonzalez [facility] Note Date/Time May 07, 2024 3:36pm [facility] [address] [place] [address] Neurology Progress Note Signed Patient: Juan Simon MR#: [id number] : 1955 Acct:[id number] Age/Sex: 68 / M Adm Date: 4 Loc: 3T Room: [address] [place] [address] Type: ADM IN Attending Dr: Skyler Sanchez MD Copies to: ~ Date of Service: 05/07/2024 Subjective Subjective Narrative: Patient still with delirium. MRI still pending. No acute events overnight. Patient is however awake alert and talking. is in the room. She states heis close to back to baseline still with some mild confusion. Review of Systems Review of Systems Unobtainable due to mental status Exam Physical Exam Vital Signs: Temp Pulse Resp BP Pulse Ox O2 Del Method O2 Flow Rate 98.1 F 105 H 23 128/73 96 Nasal Cannula 1 05/07/24 11:34 05/07/24 11:34 05/07/24 11:34 05/07/24 11:34 05/07/24 11:34 05/07/24 11:34 05/07/24 11:34 Narrative: EXAMINATION: In no distress. No deformities or trauma. Limbs seem well-perfused. No significant edema. Normal work of breathing. Visualized skin is generally intact and without lesions. Affect normal. He is alert. Not oriented. Attention significantly impaired. I think speech is nondysarthric and fluency is acceptable. Pupils are equal and reactive. Ocular motility is full. No nystagmus. Facial sensation is normal. Hearing is normal. Facial strength is normal. Tongue is midline. Muscle bulk, tone, and strength are normal. Mild tremors. Light touch is intact. No ataxia in upper extremities. Objective Vital Signs Vital Signs: Vital Signs - 24 hr 05/06/24 16:00 05/06/24 16:00 05/06/24 19:59 Temperature 98.1 F 98.0 F Pulse Rate 76 106 H Respiratory Rate 17 18 Blood Pressure 125/80 137/84 02 Sat by Pulse Oximetry 98 98 Oxygen Delivery Method Nasal Cannula Nasal Cannula Nasal Cannula Oxygen Flow Rate 2 2 2 05/06/24 20:00 05/07/24 00:00 05/07/24 04:45 Temperature 98.1 F Pulse Rate 106 H Respiratory Rate 19 Blood Pressure 128/72 02 Sat by Pulse Oximetry 97 Oxygen Delivery Method Nasal Cannula Nasal Cannula Nasal Cannula Oxygen Flow Rate 2 2 2 05/07/24 05:04 05/07/24 08:00 05/07/24 08:18 Temperature 98.5 F Pulse Rate 101 H 110 H Respiratory Rate 20 18 Blood Pressure 127/74 02 Sat by Pulse Oximetry 95 Oxygen Delivery Method Nasal Cannula Nasal Cannula Oxygen Flow Rate 2 2 05/07/24 11:34 Temperature 98.1 F Pulse Rate 105 H Respiratory Rate 23 Blood Pressure 128/73 02 Sat by Pulse Oximetry 96 Oxygen Delivery Method Nasal Cannula Oxygen Flow Rate 1 Labs 05/05/24 04:10 05/07/24 06:07 Therapy Recommendations Therapy Recommendations: OT Recommendations OT Recommended Discharge Nursing Home Facility,Inpatient Rehab Unit Location OT Recommended Services at Physical Therapy,Occupational Therapy Discharge PT Recommendations PT Recommended Discharge Nursing Home Facility,Inpatient Rehab Unit Location PT Recommended Services at Physical Therapy,Occupational Therapy Discharge Assessment/Plan (1) Altered mental status: Qualifiers: Altered mental status type: delirium Qualified Code(s): R41.0 - Disorientation, unspecified Plan DATA REVIEW: -Head CT May 02, 2024 nonacute, shows chronic right mastoiditis and possible otitis -MRI brain September 22, 2023 without contrast looks unremarkable aside from some chronic age-related neurodegenerative changes -Blood cultures May 02, 2024 2 of 2 group B strep, urine culture with 20,000 colonies Enterococcus faecalis and strep group B ASSESSMENT: Septic encephalopathy with delirium (fluctuating alertness, some inattention, restless and fidgety), ongoing. His family has noticed some fluency issues. Consider acute embolic ischemic event contributing to mental status changes given the new onset atrial fibrillation. I do not think he has any type of intracranial infectious process. He is being investigated in the outpatient setting for progressive cognitive decline with concern for dementia. If he has an underlying neurodegenerative disorder that would put him at increased risk for encephalopathy/delirium. He showing subtle improvement as of yesterday with discussion with his daughter and Dr. Clemente. The symptoms and changes seem to continue to be improving today per the patient's who was in the room when I saw the patient today. PLAN: 1. MRI brain with and without contrast (his spinal stimulator is MR- compatible)was desired but his spinal stimulator is not compatible with the 3T magnet. An MRI in the 1.5 Mishel machine without contrast has been ordered and is pending 2. Apixaban has been initiated for the atrial fibrillation. Cardiology following. 3. Will follow Documented By: Jimmy Gonzalez DO 4 1219 Signed By: <Electronically signed by Jimmy Gonzalez, > 05/07/24 1166 [facility] Work Phone: [phone] 234-170312-28-[address] [address] Neurology Progress Note Signed Patient: Juan Simon MR#: [id number] : 1955 Acct:[id number] Age/Sex: 68 / M Adm Date: 4 Loc: 3T Room: [address] [place] [address] Type: ADM IN Attending Dr: Skyler Sanchez MD Copies to: ~ Date of Service: 05/07/2024 Subjective Subjective Narrative: Patient still with delirium. MRI still pending. No acute events overnight. Patient is however awakealert and talking. is in the room. She states heis close to back to baseline still with some mild confusion. Review of Systems Review of Systems Unobtainable due to mental status Exam Physical Exam Vital Signs: Temp Pulse Resp BP Pulse Ox O2 Del Method O2 Flow Rate 98.1 F 105 H 23 128/73 96 Nasal Cannula 1 05/07/24 11:34 05/07/24 11:34 05/07/24 11:34 05/07/24 11:34 05/07/24 11:34 05/07/24 11:34 05/07/24 11:34 Narrative: EXAMINATION: In no distress. No deformities or trauma. Limbs seem well-perfused. No significant edema. Normal work of breathing. Visualized skin is generally intact and without lesions. Affect normal. He is alert. Not oriented. Attention significantly impaired. I think speech is nondysarthric and fluency is acce ptable. Pupils are equal and reactive. Ocular motility is full. No nystagmus. Facial sensation is normal. Hearing is normal. Facial strength is normal. Tongue is midline. Muscle bulk, tone, and strength are normal. Mild tremors. Light touch is intact. No ataxia in upper extremities. Objective Vital Signs Vital Signs: Vital Signs - 24 hr 05/06/24 16:00 05/06/24 16:00 05/06/24 19:59 Temperature 98.1 F 98.0 F Pulse Rate 76 106 H Respiratory Rate 17 18 Blood Pressure 125/80 137/84 02 Sat by Pulse Oximetry 98 98 Oxygen Delivery Method Nasal Cannula Nasal Cannula Nasal Cannula Oxygen Flow Rate 2 2 2 05/06/24 20:00 05/07/24 00:00 05/07/24 04:45 Temperature 98.1 F Pulse Rate 106 H Respiratory Rate 19 Blood Pressure 128/72 02 Sat by Pulse Oximetry 97 Oxygen Delivery Method Nasal Cannula Nasal Cannula Nasal Cannula Oxygen Flow Rate 2 2 2 05/07/24 05:04 05/07/24 08:00 05/07/24 08:18 Temperature 98.5 F Pulse Rate 101 H 110 H Respiratory Rate 20 18 Blood Pressure 127/74 02 Sat by Pulse Oximetry 95 Oxygen Delivery Method Nasal Cannula Nasal Cannula Oxygen Flow Rate 2 2 05/07/24 11:34 Temperature 98.1 F Pulse Rate 105 H Respiratory Rate 23 Blood Pressure 128/73 02 Sat by Pulse Oximetry 96 Oxygen Delivery Method Nasal Cannula Oxygen Flow Rate 1 Labs 05/05/24 04:10 05/07/24 06:07 Therapy Recommendations Therapy Recommendations: OT Recommendations OT Recommended Discharge Nursing Home Facility,Inpatient Rehab Unit Location OT Recommended Services at Physical Therapy,Occupational Therapy Discharge PT Recommendations PT Recommended Discharge Nursing Home Facility,Inpatient Rehab Unit Location PT Recommended Services at Physical Therapy,Occupational Therapy Discharge Assessment/Plan (1) Altered mental status: Qualifiers: Altered mental status type: delirium Qualified Code(s): R41.0 - Disorientation, unspecified Plan DATA REVIEW: -Head CT May 02, 2024 nonacute, shows chronic right mastoiditis and possible otitis -MRI brain September 22, 2023 without contrast looks unremarkable aside from some chronic age-related neurodegenerative changes -Blood cultures May 02, 2024 2 of 2 group B strep, urine culture with 20,000 colonies Enterococcus faecalis and strep group B ASSESSMENT: Septic encephalopathy with delirium (fluctuating alertness, some inattention, restless and fidgety), ongoing. His family has noticed some fluency issues. Consider acute embolic ischemic event contributing to mental status changes given the new onset atrial fibrillation. I do not think he has any type of intracranial infectious process. He is being investigated in the outpatient setting for progressive cognitive decline with concern for dementia. If he has an underlying neurodegenerative disorder that would put him at increased riskfor encephalopathy/delirium. He showing subtle improvement as of yesterday with discussion with his daughter and Dr. Clemente. The symptoms and changes seem to continue to be improving today per the patient's who was in the room when I saw the patient today. PLAN: 1. MRI brain with and without contrast (his spinal stimulator is MR- compatible)was desired but his spinal stimulator is not compatible with the 3T magnet. An MRI in the 1.5 Mishel machine without contrast has been ordered and is pending 2. Apixaban has been initiated for the atrial fibrillation. Cardiology following. 3. Will follow Documented By: Jimmy Gonzalez DO 4 1219 Signed By: 05/07/[address] [facility]12-28-2024 Progress note Author Skyler Sanchez [facility] Note Date/Time May 06, 2024 11:53pm [facility] [address] [place] [address] Hospitalist Progress Note Signed Patient: Juan Simon MR#: [id number] : 1955 Acct:[id number] Age/Sex: 68 / M Adm Date: 4 Loc: 3T Room: [address] [place] [address] Type: ADM IN Attending Dr: Skyler Sanchez MD Copies to: ~ Date of Service: 05/06/2024 Subjective Subjective Narrative: 68M with PMH of Asthma, celiac disease, DJD and chronic back pain s/p spinal cord stimulator and nerve ablations, frequent Falls, migraines, MANUEL who presented with AMS and admitted for the evaluation and treatment of Afib RVR andcirculatory shock Assessment And Plan Circulatory shock - resolved He was given a total of multiple dose of metoprolol to control his Afib RVR. then he developed hypotension. he was given 3L of IVF. he was started on Levophed. Lactic wnl . he was admitted to the ICU . Pulmonary was consulted for critical care management Strep Bacteremia due to Strep UTI Sepsis due to above Hypotension noted in the ED with tachycardia and mild leukocytosis. he had feverup to 39.5C. he was started on broad spectrum IV antibiotics Lactic acid wnl CXR ED shows no acute cardiopulmonary abnormality Respiratory (Upper) Panel, PCR negative Blood Cx ED 05/02 Strep agalactiae urine Cx shows Enterococcus/Strep agalactiae Follow up Blood Cx 05/03 and 05/[address] Abd shows No acute intra-abdominal process. Small bilateral pleural effusions. ID consult recommendation appreciated Unasyn with Transition to PO Augmentin on DC Acute toxic-metabolic encephalopathy Septic encephalopathy with delirium the patient presents with acute confusional state and behavior changes noted by his Urine Tox screen is positive for amphetamine CT brain shows no acute intracranial process Ammonia wnl ABG shows no hypercapnia Could be due to the current infection other causes can't be ruled out Depakote was discontinued due to interaction with his apixaban, doxepin was discontinued given his cardiac dysrhythmia MRI (spinal stimulator is not compatible with the 3T magnet) can do 1.5 Mishel machine without contrast which we don't have (can be done as outpatient) neurology recommendation appreciated supportive and treatment of the underlying condition Newly diagnosed Paroxysmal Afib with RVR the patient was found to have Afib RVR in the ED with heart rate up to 150s and received multiple doses of metoprolol IV. he converted to NSR in the ED EKG ED 9:45 am (i personally reviewed) shows Afib@146 bpm without significant acute changes. EKG 3:20 pm shows NSR No significant electrolyte Abnormality, Mg 1.8 (replaced) TSH in EMR wnl Echocardiogram EF 60%, Mild he was evaluated by Cardiology; he is to continue Beta david, Digoxin and Eliquis Elevated Troponin Type II MD Troponin was found incidentally to be mildly elevated above normal limits 106 upto 311 . There is no chest pain, nor significant EKG changes. This is likely type 2 myocardial infarction secondary to ischemia due to increased oxygen demand and/or decreased supply in the setting of tachycardia . Troponin will be repeated. Further workup, if needed, can be done in an outpatient setting. Acute Urinary Retention Hayden was inserted Impaired mobility and ADL PT/OT has been consulted. Nursing Home Facility,Inpatient Rehab Unit was recommended. INTERVAL HPI:?As Above, Pt resting in bed. intermittent confused per but better, no fever Chronic diseases:?Unless mentioned Above, Essential home medications have been continued.? DVT Px:?Addressed Disposition:?To be determined Plan of care Discussed with:?the medical team, the patient at bedside Exam Physical Exam Vital Signs: Temp Pulse Resp BP Pulse Ox O2 Del Method O2 Flow Rate 36.7 C 110 H 17 117/86 95 Nasal Cannula 2 05/06/24 08:20 05/06/24 12:00 05/06/24 12:00 05/06/24 12:00 05/06/24 12:00 05/06/24 16:00 05/06/24 16:00 Narrative: GEN: Cooperative, Not in acute distress. NECK: Supple, ? JVD LUNGS: CTA CV: S1S2 nl, 2/6 systolic murmur ABD: Soft, ND, NT, + BS, ? HSM EXT: No edema in LE bilaterally. NEURO: generalized weakness confused move all his exterminates , tremor in his hands PSYCH: flat affect, nl speech, AOx1-2 Objective Lab Results 05/05/24 04:10 05/06/24 05:59 Microbiology Results Microbiology 05/03/24 14:45 Blood Blood Culture - Preliminary No Growth 3 Days 05/03/24 14:30 Blood Blood Culture - Preliminary No Growth 3 Days 05/05/24 06:33 Blood - Right Antecubital Blood Culture - Preliminary No Growth 1 Day 05/05/24 04:10 Blood - Line Blood Culture - Preliminary No Growth 1 Day Meds Allergies and Active Meds Allergies gluten Allergy (Unknown, Verified 05/02/24 09:54) Unknown Reaction Active Meds: Active Medications Generic Name Dose Route Start Last Admin Trade Name Korina PRN Reason Stop Dose Admin Acetaminophen 650 mg 05/02/24 17:28 05/05/24 20:26 Acetaminophen 325 Mg Tablet PO 05/02/25 17:27 650 mg Q6H PRN Administration Pain 1-5 or fever Albuterol 2.5 mg 05/02/24 17:27 05/05/24 03:13 Albuterol Neb 2.5 Mg/3 Ml Vial.Neb INHALATION 05/02/25 17:26 2.5 mg Q2H PRN Administration shortness of breath or wheezing Aspirin 81 mg 05/06/24 09:00 05/06/24 08:14 Aspirin 81 Mg Tablet. PO 05/06/25 08:59 81 mg DAILY EDIE Administration Budesonide/Formoterol Fumarate 2 puff 05/02/24 21:00 05/06/24 08:17 Budesonide/Formoterol 160-4.5 Mcg 60 Puff/6 Gm Hfa.Aer.Ad INHALATION 05/02/25 20:59 2 puff BID EDIE Administration Duloxetine HCl 30 mg 05/02/24 21:00 05/06/24 08:14 Duloxetine 30 Mg Capsule. PO 05/02/25 20:59 30 mg BID EDIE Administration Sodium Chloride 500 mls @ 1 mls/hr 05/03/24 01:27 05/03/24 02:42 0.9% Sodium Chloride 500 Ml INTRA-ISREAL 05/03/25 01:26 1 mls/hr ONCE PRN Administration CVP Ampicillin Sodium/Sulbactam Sodium 3 gm in 100 mls @ 200 mls/hr 05/05/24 14:00 05/06/24 14:27 Unasyn IV 200 mls/hr Q6H EDIE Administration Metoprolol Succinate 25 mg 05/05/24 21:00 05/05/24 21:44 Metoprolol Succinate 25 Mg Tab.Er.24h PO 05/05/25 20:59 25 mg QPM EDIE Administration Montelukast Sodium 10 mg 05/02/24 22:00 05/05/24 21:44 Montelukast 10 Mg Tablet PO 05/02/25 21:59 10 mg HS EDIE Administration Quetiapine Fumarate 12.5 mg 05/05/24 22:00 05/05/24 21:44 Quetiapine Fumarate 12.5 Mg Tablet PO 05/05/25 21:59 12.5 mg QHS EDIE Administration Sodium Chloride 0 ml 05/02/24 09:53 05/03/24 17:15 Sodium Chloride 0.9 % 10 Ml Syringe IV-PUSH 05/02/25 09:52 10 ml PRN PRN Administration Flush A&P - Hospitalist Assessment/Plan (1) Atrial fibrillation with rapid ventricular response: Plan Documented By: Skyler Sanchez MD 05/06/24 1722 Signed By: <Electronically signed by Skyler Sanchez MD> 05/06/24 7204 [facility] Work Phone: [phone]) 575-164412-27-[address] [address] Hospitalist Progress Note Signed Patient: Juan Simon MR#: [id number] : 1955 Acct:[id number] Age/Sex: 68 / M Adm Date: 4 Loc: Room: [address] [place] [address] Type: ADM IN Attending Dr: Skyler Sanchez MD Copies to: ~ Date of Service: 05/06/2024 Subjective Subjective Narrative: 68M with PMH of Asthma, celiac disease, DJD and chronic back pain s/p spinal cord stimulator and nerve ablations, frequent Falls, migraines, MANUEL who presented with AMS and admitted for the evaluationand treatment of Afib RVR andcirculatory shock Assessment And Plan Circulatory shock - resolved He was given a total of multiple dose of metoprolol to control his Afib RVR. then he developed hypotension. he was given 3L of IVF. he was started on Levophed. Lactic wnl . he was admitted to the ICU. Pulmonary was consulted for critical care management Strep Bacteremia due to Strep UTI Sepsis due to above Hypotension noted in the ED with tachycardia and mild leukocytosis. he had feverup to 39.5C. he wasstarted on broad spectrum IV antibiotics Lactic acid wnl CXR ED shows no acute cardiopulmonary abnormality Respiratory (Upper) Panel, PCR negative Blood Cx ED 05/02 Strep agalactiae urine Cx shows Enterococcus/Strep agalactiae Follow up Blood Cx 05/03 and 05/[address] Abd shows No acute intra-abdominal process. Small bilateral pleural effusions. ID consult recommendation appreciated Unasyn with Transition to PO Augmentin on DC Acute toxic-metabolic encephalopathy Septic encephalopathy with delirium the patient presents with acute confusional state and behavior changes noted by his Urine Tox screen is positive for amphetamine CT brain shows no acute intracranial process Ammonia wnl ABG shows no hypercapnia Could be due to the current infection other causes can't be ruled out Depakote was discontinued due to interaction with his apixaban, doxepin was discontinued given his cardiac dysrhythmia MRI (spinal stimulator is not compatible with the 3T magnet) can do 1.5 Mishel machine without contrast which we don't have (can be done as outpatient) neurology recommendation appreciated supportive and treatment of the underlying condition Newly diagnosed Paroxysmal Afib with RVR the patient was found to have Afib RVR in the ED with heart rate up to 150s and received multiple doses of metoprolol IV. he converted to NSR in the ED EKG ED 9:45 am (i personally reviewed) shows Afib@146 bpm without significant acute changes. EKG 3:20 pm shows NSR No significant electrolyte Abnormality, Mg 1.8 (replaced) TSH in EMR wnl Echocardiogram EF 60%, Mild he was evaluated by Cardiology; he is to continue Beta david, Digoxin and Eliquis Elevated Troponin Type II MD Troponin was found incidentally to be mildly elevated above normal limits 106 upto 311 . There is no chest pain, nor significant EKG changes. This is likely type 2 myocardial infarction secondary to ischemia due to increased oxygen demand and/or decreased supply in the setting of tachycardia . Troponin will be repeated. Further workup, if needed, can be done in an outpatient setting. Acute Urinary Retention Hayden was inserted Impaired mobility and ADL PT/OT has been consulted. Nursing Home Facility,Inpatient Rehab Unit was recommended. INTERVAL HPI:?As Above, Pt resting in bed. intermittent confused per but better, no fever Chronic diseases:?Unless mentioned Above, Essential home medications have been continued.? DVT Px:?Addressed Disposition:?To be determined Plan of care Discussed with:?the medical team, the patient at bedside Exam Physical Exam Vital Signs: Temp Pulse Resp BP Pulse Ox O2 Del Method O2 Flow Rate 36.7 C 110 H 17 117/86 95 Nasal Cannula 2 05/06/24 08:20 05/06/24 12:00 05/06/24 12:00 05/06/24 12:00 05/06/24 12:00 05/06/24 16:00 05/06/24 16:00 Narrative: GEN: Cooperative, Not in acute distress. NECK: Supple, ? JVD LUNGS: CTA CV: S1S2 nl, 2/6 systolic murmur ABD: Soft, ND, NT, + BS, ? HSM EXT: No edema in LE bilaterally. NEURO: generalized weakness confused move all his exterminates , tremor in his hands PSYCH: flat affect, nl speech, AOx1-2 Objective Lab Results 05/05/24 04:10 05/06/24 05:59 Microbiology Results Microbiology 05/03/24 14:45 Blood Blood Culture - Preliminary No Growth 3 Days 05/03/24 14:30 Blood Blood Culture - Preliminary No Growth 3 Days 05/05/24 06:33 Blood - Right Antecubital Blood Culture - Preliminary No Growth 1 Day 05/05/24 04:10 Blood - Line Blood Culture - Preliminary No Growth 1 Day Meds Allergies and Active Meds Allergies gluten Allergy (Unknown, Verified 05/02/24 09:54) Unknown Reaction Active Meds: Active Medications Generic Name Dose Route Start Last Admin Trade Name Sebastianq PRN Reason Stop Dose Admin Acetaminophen 650 mg 05/02/24 17:28 05/05/24 20:26 Acetaminophen 325 Mg Tablet PO 05/02/25 17:27 650 mg Q6H PRN Administration Pain 1-5 or fever Albuterol 2.5 mg 05/02/24 17:27 05/05/24 03:13 Albuterol Neb 2.5 Mg/3 Ml Vial.Neb INHALATION 05/02/25 17:26 2.5 mg Q2H PRN Administration shortness of breath or wheezing Aspirin 81 mg 05/06/24 09:00 05/06/24 08:14 Aspirin 81 Mg Tablet.Dr PO 05/06/25 08:59 81 mg DAILY EDIE Administration Budesonide/Formoterol Fumarate 2 puff 05/02/24 21:00 05/06/24 08:17 Budesonide/Formoterol 160-4.5 Mcg 60 Puff/6 Gm Hfa.Aer.Ad INHALATION 05/02/25 20:59 2 puff BID EDIE Administration Duloxetine HCl 30 mg 05/02/24 21:00 05/06/24 08:14 Duloxetine 30 Mg Capsule.Dr PO 05/02/25 20:59 30 mg BID EDIE Administration Sodium Chloride 500 mls @ 1 mls/hr 05/03/24 01:27 05/03/24 02:42 0.9% Sodium Chloride 500 Ml INTRA-ISREAL 05/03/25 01:26 1 mls/hr ONCE PRN Administration CVP Ampicillin Sodium/Sulbactam Sodium 3 gm in 100 mls @ 200 mls/hr 05/05/24 14:00 05/06/24 14:27 Unasyn IV 200 mls/hr Q6H EDIE Administration Metoprolol Succinate 25 mg 05/05/24 21:00 05/05/24 21:44 Metoprolol Succinate 25 Mg Tab.Er.24h PO 05/05/25 20:59 25 mg QPM EDIE Administration Montelukast Sodium 10 mg 05/02/24 22:00 05/05/24 21:44 Montelukast 10 Mg Tablet PO 05/02/25 21:59 10 mg HS EDIE Administration Quetiapine Fumarate 12.5 mg 05/05/24 22:00 05/05/24 21:44 Quetiapine Fumarate 12.5 Mg Tablet PO 05/05/25 21:59 12.5 mg QHS EDIE Administration Sodium Chloride 0 ml 05/02/24 09:53 05/03/24 17:15 Sodium Chloride 0.9 % 10 Ml Syringe IV-PUSH 05/02/25 09:52 10 ml PRN PRN Administration Flush A&P - Hospitalist Assessment/Plan (1) Atrial fibrillation with rapid ventricular response: Plan Documented By: Skyler Sanchez MD 05/06/241721 Signed By: 05/06/[address] [facility]12-27-2024 Progress note Author Moris Younger [facility] Note Date/Time May 06, 2024 1:44pm [facility] [address] [place] [address] Infect. Disease Progress Note Signed Patient: Juan Simon MR#: [id number] : 1955 Acct:[id number] Age/Sex: 68 / M Adm Date: 4 Loc: 3T Room: [address] [place] [address] Type: ADM IN Attending Dr: Skyler Sanchez MD Copies to: ~ Date of Service: 05/06/2024 Subjective Interval history: Patient sitting in a recliner. Denies physical complaints. Mentation marcus had mentioned that he was at some sort of seminar earlier this morning? He knows that he is in the hospital at this time Exam Physical Exam Vital Signs: Temp Pulse Resp BP Pulse Ox O2 Del Method O2 Flow Rate 98.1 F 115 H 17 128/74 96 Nasal Cannula 2 05/06/24 08:20 05/06/24 08:20 05/06/24 08:20 05/06/24 08:20 05/06/24 08:20 05/06/24 08:20 05/06/24 08:20 Const General: cooperative and comfortable Orientation: oriented x3 HEENT Head: normal to inspection Ears: hearing grossly normal bilaterally Mouth: oral mucosae normal Eyes General: appearance normal, both eyes and all related structures Neck Neck: normal visual inspection Chest Chest palpation & inspection: normal inspection of the chest Resp Effort & Inspection: normal respiratory effort and cough Cardio Rate: regular rate Rhythm: regular rhythm GI Inspection: normal to inspection Palpation: soft and nontender Auscultation: normal bowel sounds Skin General: no rashes or lesions noted Neuro General: patient alert, patient awake and patient oriented x3 Extrem General: normal to inspection Objective Labs CBC/BMP: CBC, BMP 05/06/24 05:59 Sodium 137 Potassium 3.9 Chloride 102 Carbon Dioxide 29.3 Anion Gap 9.6 BUN 14 Creatinine 0.68 L Calcium 8.3 L Labs: 05/06/24 05:59 BUN 14 Creatinine 0.68 L Microbiology Microbiology: Microbiology - Results from entire visit 05/05/24 06:33 Blood - Right Antecubital Blood Culture - Preliminary No Growth 1 Day 05/05/24 04:10 Blood - Line Blood Culture - Preliminary No Growth 1 Day 05/03/24 14:45 Blood Blood Culture - Preliminary No Growth 2 Days 05/03/24 14:30 Blood Blood Culture - Preliminary No Growth 2 Days 05/02/24 10:20 Blood - Left Hand Blood Culture - Final Strep agalactiae - (group b) 05/02/24 10:15 Blood - Left Antecubital Blood Culture - Final Strep agalactiae - (group b) 05/02/24 10:15 Blood - Left Antecubital Bacterial ID (NA Multiplex Assay) - Final 05/02/24 10:45 Urine - Clean-Voided Midstream Urine Culture - Final Enterococcus faecalis Strep agalactiae - (group b) 05/02/24 10:40 Nasopharyngeal Respiratory Panel (PCR) - Final Allergies and Medications Allergies and Active Meds Allergies gluten Allergy (Unknown, Verified 05/02/24 09:54) Unknown Reaction Active Medications Acetaminophen (Acetaminophen 325 Mg Tablet) 650 mg PO Q6H PRN PRN Reason: Pain 1-5 or fever Stop: 05/02/25 17:27 Last Admin: 05/05/24 20:26 Dose: 650 mg Albuterol (Albuterol Neb 2.5 Mg/3 Ml Vial.Neb) 2.5 mg INHALATION Q2H PRN PRN Reason: shortness of breath or wheezing Stop: 05/02/25 17:26 Last Admin: 05/05/24 03:13 Dose: 2.5 mg Aspirin (Aspirin 81 Mg Tablet.) 81 mg PO DAILY EDIE Stop: 05/06/25 08:59 Last Admin: 05/06/24 08:14 Dose: 81 mg Budesonide/Formoterol Fumarate (Budesonide/Formoterol 160-4.5 Mcg 60 Puff/6 Gm Hfa.Aer.Ad) 2 puff INHALATION BID EDIE Stop: 05/02/25 20:59 Last Admin: 05/06/24 08:17 Dose: 2 puff Duloxetine HCl (Duloxetine 30 Mg Capsule.) 30 mg PO BID EDIE Stop: 05/02/25 20:59 Last Admin: 05/06/24 08:14 Dose: 30 mg Sodium Chloride (0.9% Sodium Chloride 500 Ml) 500 mls @ 1 mls/hr INTRA-ISREAL ONCE PRN PRN Reason: CVP Stop: 05/03/25 01:26 Last Admin: 05/03/24 02:42 Dose: 1 mls/hr Ampicillin Sodium/Sulbactam Sodium (Unasyn) 3 gm in 100 mls @ 200 mls/hr IV Q6HSCH Last Admin: 05/06/24 08:14 Dose: 200 mls/hr Metoprolol Succinate (Metoprolol Succinate 25 Mg Tab.Er.24h) 25 mg PO QPM EDIE Stop: 05/05/25 20:59 Last Admin: 05/05/24 21:44 Dose: 25 mg Montelukast Sodium (Montelukast 10 Mg Tablet) 10 mg PO HS EDIE Stop: 05/02/25 21:59 Last Admin: 05/05/24 21:44 Dose: 10 mg Quetiapine Fumarate (Quetiapine Fumarate 12.5 Mg Tablet) 12.5 mg PO QHS EDIE Stop: 05/05/25 21:59 Last Admin: 05/05/24 21:44 Dose: 12.5 mg Sodium Chloride (Sodium Chloride 0.9 % 10 Ml Syringe) 0 ml IV-PUSH PRN PRN PRN Reason: Flush Stop: 05/02/25 09:52 Last Admin: 05/03/24 17:15 Dose: 10 ml A&P - Infectious Disease Assessment/Plan (1) Bacteremia due to group B Streptococcus: (2) Sepsis: (3) Altered mental status: Qualifiers: Altered mental status type: delirium Qualified Code(s): R41.0 - Disorientation, unspecified Plan Patient's urine culture did end up growing group B strep though still a low colony count. Follow-up cultures remain negative however. Switched to Unasyn yesterday. No acute findings found on the CT scan of the pelvis. Transition Karen Augmentin for total treatment of two weeks. Documented By: Moris Younger MD 05/06/24 5663 Signed By: <Electronically signed by MD Moris Younger> 05/06/24 7763 [facility] Work Phone: 1(759) 999-301812-27-2024 Progress note Author Jesus Fraser [facility] Note Date/Time May 06, 2024 1:28pm [facility] [address] [place] [address] Neurology Progress Note Signed Patient: Juan Simon MR#: [id number] : 1955 Acct:[id number] Age/Sex: 68 / M Adm Date: 4 Loc: 3T Room: [address] [place] [address] Type: ADM IN Attending Dr: Skyler Sanchez MD Copies to: ~ Date of Service: 05/06/2024 Exam Physical Exam Vital Signs: Temp Pulse Resp BP Pulse Ox O2 Del Method O2 Flow Rate 98.1 F 115 H 17 128/74 96 Nasal Cannula 2 05/06/24 08:20 05/06/24 08:20 05/06/24 08:20 05/06/24 08:20 05/06/24 08:20 05/06/24 08:20 05/06/24 08:20 Objective Vital Signs Vital Signs: Vital Signs - 24 hr 05/05/24 16:00 05/05/24 17:00 05/05/24 20:31 Temperature 98.2 F 98.2 F Pulse Rate 66 112 H Respiratory Rate 19 20 Blood Pressure 128/69 131/77 02 Sat by Pulse Oximetry 98 99 Oxygen Delivery Method Nasal Cannula Nasal Cannula Nasal Cannula Oxygen Flow Rate 2 2 2 05/05/24 20:31 05/05/24 23:24 05/06/24 00:00 Temperature 98.2 F Pulse Rate 103 H Respiratory Rate 20 Blood Pressure 143/88 H 02 Sat by Pulse Oximetry 94 L Oxygen Delivery Method Nasal Cannula Nasal Cannula Nasal Cannula Oxygen Flow Rate 2 2 2 05/06/24 04:32 05/06/24 08:00 05/06/24 08:20 Temperature 98.2 F 98.1 F Pulse Rate 112 H 115 H Respiratory Rate 20 17 Blood Pressure 142/84 H 128/74 02 Sat by Pulse Oximetry 96 96 Oxygen Delivery Method Nasal Cannula Nasal Cannula Nasal Cannula Oxygen Flow Rate 2 2 2 Labs 05/05/24 04:10 05/06/24 05:59 Therapy Recommendations Therapy Recommendations: OT Recommendations OT Recommended Discharge Nursing Home Facility,Inpatient Rehab Unit Location OT Recommended Services at Physical Therapy,Occupational Therapy Discharge PT Recommendations PT Recommended Discharge Nursing Home Facility,Inpatient Rehab Unit Location PT Recommended Services at Physical Therapy,Occupational Therapy Discharge Assessment/Plan (1) Altered mental status: Qualifiers: Altered mental status type: delirium Qualified Code(s): R41.0 - Disorientation, unspecified Plan CONSULT REASON: AMS INTERIM: Remains delirious. Still fidgety and restless. Still can be disoriented. Not seeing his many juy-qiu-uudy things today. His daughter in the room has seen improvement today compared to yesterday. He is complaining of a headache on thetop of his head. It is morning predominant. He is known to have obstructive sleep apnea and has not been compliant with his machine. EXAMINATION: In no distress. No deformities or trauma. Limbs seem well-perfused. No significant edema. Normal work of breathing. Visualized skin is generally intact and without lesions. Affect normal. He is alert. Not oriented. Attention significantly impaired. I think speech is nondysarthric and fluency is acceptable. Pupils are equal and reactive. Ocular motility is full. No nystagmus. Facial sensation is normal. Hearing is normal. Facial strength is normal. Tongue is midline. Muscle bulk, tone, and strength are normal. Mild tremors. Light touch is intact. No ataxia in upper extremities. DATA REVIEW: -Head CT May 02, 2024 nonacute, shows chronic right mastoiditis and possible otitis -MRI brain September 22, 2023 without contrast looks unremarkable aside from some chronic age-related neurodegenerative changes -Blood cultures May 02, 2024 2 of 2 group B strep, urine culture with 20,000 colonies Enterococcus faecalis and strep group B ASSESSMENT: Septic encephalopathy with delirium (fluctuating alertness, some inattention, restless and fidgety), ongoing. His family has noticed some fluency issues. Consider acute embolic ischemic event contributing to mental status changes given the new onset atrial fibrillation. I do not think he has any type of intracranial infectious process. He is being investigated in the outpatient setting for progressive cognitive decline with concern for dementia. If he has an underlying neurodegenerative disorder that would put him at increased risk for encephalopathy/delirium. PLAN: 1. MRI brain with and without contrast (his spinal stimulator is MR- compatible)was desired but his spinal stimulator is not compatible with the 3T magnet. An MRI in the 1.5 Mishel machine without contrast will suffice. 2. Apixaban has been initiated for the atrial fibrillation Documented By: Jesus Fraser DO 05/06/24 1326 Signed By: <Electronically signed by Jesus Fraser DO> 05/06/24 1328 [facility] Work Phone: 1(115) 148-906812-27-[address] [address] Infect. Disease Progress Note Signed Patient: Juan Simon MR#: [id number] : 1955 Acct:[id number] Age/Sex: 68 / M Adm Date: 4 Loc: 3T Room: 6X9990-6 Type: ADM IN Attending Dr: Skyler Sanchez MD Copies to: ~ Date of Service: 05/06/2024 Subjective Interval history: Patient sitting in a recliner. Denies physical complaints. Mentation amrit had mentioned that he wasat some sort of seminar earlier this morning? He knows that he is in the hospital at this time Exam Physical Exam Vital Signs: Temp Pulse Resp BP Pulse Ox O2 Del Method O2 Flow Rate 98.1 F 115 H 17 128/74 96 Nasal Cannula 2 05/06/24 08:20 05/06/24 08:20 05/06/24 08:20 05/06/24 08:20 05/06/24 08:20 05/06/24 08:20 05/06/24 08:20 Const General: cooperative and comfortable Orientation: oriented x3 HEENT Head: normal to inspection Ears: hearing grossly normal bilaterally Mouth: oral mucosae normal Eyes General: appearance normal, both eyes and all related structures Neck Neck: normal visual inspection Chest Chest palpation & inspection: normal inspection of the chest Resp Effort & Inspection: normal respiratory effort and cough Cardio Rate: regular rate Rhythm: regular rhythm GI Inspection: normal to inspection Palpation: soft and nontender Auscultation: normal bowel sounds Skin General: no rashes or lesions noted Neuro General: patient alert, patient awake and patient oriented x3 Extrem General: normal to inspection Objective Labs CBC/BMP: CBC, BMP 05/06/24 05:59 Sodium 137 Potassium 3.9 Chloride 102 Carbon Dioxide 29.3 Anion Gap 9.6 BUN 14 Creatinine 0.68 L Calcium 8.3 L Labs: 05/06/24 05:59 BUN 14 Creatinine 0.68 L Microbiology Microbiology: Microbiology - Results from entire visit 05/05/24 06:33 Blood - Right Antecubital Blood Culture - Preliminary No Growth 1 Day 05/05/24 04:10 Blood - Line Blood Culture - Preliminary No Growth 1 Day 05/03/24 14:45 Blood Blood Culture - Preliminary No Growth 2 Days 05/03/24 14:30 Blood Blood Culture - Preliminary No Growth 2 Days 05/02/24 10:20 Blood - Left Hand Blood Culture - Final Strep agalactiae - (group b) 05/02/24 10:15 Blood - Left Antecubital Blood Culture - Final Strep agalactiae - (group b) 05/02/24 10:15 Blood - Left Antecubital Bacterial ID (NA Multiplex Assay) - Final 05/02/24 10:45 Urine - Clean-Voided Midstream Urine Culture - Final Enterococcus faecalis Strep agalactiae - (group b) 05/02/24 10:40 Nasopharyngeal Respiratory Panel (PCR) - Final Allergies and Medications Allergies and Active Meds Allergies gluten Allergy (Unknown, Verified 05/02/24 09:54) Unknown Reaction Active Medications Acetaminophen (Acetaminophen 325 Mg Tablet) 650 mg PO Q6H PRN PRN Reason: Pain 1-5 or fever Stop: 05/02/25 17:27 Last Admin: 05/05/24 20:26 Dose: 650 mg Albuterol (Albuterol Neb 2.5 Mg/3 Ml Vial.Neb) 2.5 mg INHALATION Q2H PRN PRN Reason: shortness of breath or wheezing Stop: 05/02/25 17:26 Last Admin: 05/05/24 03:13 Dose: 2.5 mg Aspirin (Aspirin 81 Mg Tablet.) 81 mg PO DAILY EDIE Stop: 05/06/25 08:59 Last Admin: 05/06/24 08:14 Dose: 81 mg Budesonide/Formoterol Fumarate (Budesonide/Formoterol 160-4.5 Mcg 60 Puff/6 Gm Hfa.Aer.Ad) 2 puff INHALATION BID EDIE Stop: 05/02/25 20:59 Last Admin: 05/06/24 08:17 Dose: 2 puff Duloxetine HCl (Duloxetine 30 Mg Capsule.) 30 mg PO BID EDIE Stop: 05/02/25 20:59 Last Admin: 05/06/24 08:14 Dose: 30 mg Sodium Chloride (0.9% Sodium Chloride 500 Ml) 500 mls @ 1 mls/hr INTRA-ISREAL ONCE PRN PRN Reason: CVP Stop: 05/03/25 01:26 Last Admin: 05/03/24 02:42 Dose: 1 mls/hr Ampicillin Sodium/Sulbactam Sodium (Unasyn) 3 gm in 100 mls @ 200 mls/hr IV Q6HSCH Last Admin: 05/06/24 08:14 Dose: 200 mls/hr Metoprolol Succinate (Metoprolol Succinate 25 Mg Tab.Er.24h) 25 mg PO QPM EDIE Stop: 05/05/25 20:59 Last Admin: 05/05/24 21:44 Dose: 25 mg Montelukast Sodium (Montelukast 10 Mg Tablet) 10 mg PO HS EDIE Stop: 05/02/25 21:59 Last Admin: 05/05/24 21:44 Dose: 10 mg Quetiapine Fumarate (Quetiapine Fumarate 12.5 Mg Tablet) 12.5 mg PO QHS EDIE Stop: 05/05/25 21:59 Last Admin: 05/05/24 21:44 Dose: 12.5 mg Sodium Chloride (Sodium Chloride 0.9 % 10 Ml Syringe) 0 ml IV-PUSH PRN PRN PRN Reason: Flush Stop: 05/02/25 09:52 Last Admin: 05/03/24 17:15 Dose: 10 ml A&P - Infectious Disease Assessment/Plan (1) Bacteremia due to group B Streptococcus: (2) Sepsis: (3) Altered mental status: Qualifiers: Altered mental status type: delirium Qualified Code(s): R41.0 - Disorientation, unspecified Plan Patient's urine culture did end up growing group B strep though still a low colony count. Follow-upcultures remain negative however. Switched to Unasyn yesterday. No acute findings found on the CT scan of the pelvis. Transition Karen Augmentin for total treatment of two weeks. Documented By: Moris Younger MD 05/06/24 1339 Signed By: 05/06/[address] [facility]12-27-2024 [place] [address] Neurology Progress Note Signed Patient: Juan Simon MR#: [id number] : 1955 Acct:[id number] Age/Sex: 68 / M Adm Date: 4 Loc: Room: [address] [place] [address] Type: ADM IN Attending Dr: Skyler Sanchez MD Copies to: ~ Date of Service: 05/06/2024 Exam Physical Exam Vital Signs: Temp Pulse Resp BP Pulse Ox O2 Del Method O2 Flow Rate 98.1 F 115 H 17 128/74 96 Nasal Cannula 2 05/06/24 08:20 05/06/24 08:20 05/06/24 08:20 05/06/24 08:20 05/06/24 08:20 05/06/24 08:20 05/06/24 08:20 Objective Vital Signs Vital Signs: Vital Signs - 24 hr 05/05/24 16:00 05/05/24 17:00 05/05/24 20:31 Temperature 98.2 F 98.2 F Pulse Rate 66 112 H Respiratory Rate 19 20 Blood Pressure 128/69 131/77 02 Sat by Pulse Oximetry 98 99 Oxygen Delivery Method Nasal Cannula Nasal Cannula Nasal Cannula Oxygen Flow Rate 2 2 2 05/05/24 20:31 05/05/24 23:24 05/06/24 00:00 Temperature 98.2 F Pulse Rate 103 H Respiratory Rate 20 Blood Pressure 143/88 H 02 Sat by Pulse Oximetry 94 L Oxygen Delivery Method Nasal Cannula Nasal Cannula Nasal Cannula Oxygen Flow Rate 2 2 2 05/06/24 04:32 05/06/24 08:00 05/06/24 08:20 Temperature 98.2 F 98.1 F Pulse Rate 112 H 115 H Respiratory Rate 20 17 Blood Pressure 142/84 H 128/74 02 Sat by Pulse Oximetry 96 96 Oxygen Delivery Method Nasal Cannula Nasal Cannula Nasal Cannula Oxygen Flow Rate 2 2 2 Labs 05/05/24 04:10 05/06/24 05:59 Therapy Recommendations Therapy Recommendations: OT Recommendations OT Recommended Discharge Nursing Home Facility,Inpatient Rehab Unit Location OT Recommended Services at Physical Therapy,Occupational Therapy Discharge PT Recommendations PT Recommended Discharge Nursing Home Facility,Inpatient Rehab Unit Location PT Recommended Services at Physical Therapy,Occupational Therapy Discharge Assessment/Plan (1) Altered mental status: Qualifiers: Altered mental status type: delirium Qualified Code(s): R41.0 - Disorientation, unspecified Plan CONSULT REASON: AMS INTERIM: Remains delirious. Still fidgety and restless. Still can be disoriented. Not seeing his many itz-utw-nuqi things today. His daughter in the room has seen improvement today compared to yesterday. He is complaining of a headache on thetop of his head. It is morning predominant. He is known to have obstructive sleep apnea and has not been compliant with his machine. EXAMINATION: In no distress. No deformities or trauma. Limbs seem well-perfused. No significant edema. Normal work of breathing. Visualized skin is generally intact and without lesions. Affect normal. He is alert. Not oriented. Attention significantly impaired. I think speech is nondysarthric and fluency is acce ptable. Pupils are equal and reactive. Ocular motility is full. No nystagmus. Facial sensation is normal. Hearing is normal. Facial strength is normal. Tongue is midline. Muscle bulk, tone, and strength are normal. Mild tremors. Light touch is intact. No ataxia in upper extremities. DATA REVIEW: -Head CT May 02, 2024 nonacute, shows chronic right mastoiditis and possible otitis -MRI brain September 22, 2023 without contrast looks unremarkable aside from some chronic age-related neurodegenerative changes -Blood cultures May 02, 2024 2 of 2 group B strep, urine culture with 20,000 colonies Enterococcus faecalis and strep group B ASSESSMENT: Septic encephalopathy with delirium (fluctuating alertness, some inattention, restless and fidgety), ongoing. His family has noticed some fluency issues. Consider acute embolic ischemic event contributing to mental status changes given the new onset atrial fibrillation. I do not think he has any type of intracranial infectious process. He is being investigated in the outpatient setting for progressive cognitive decline with concern for dementia. If he has an underlying neurodegenerative disorder that would put him at increased riskfor encephalopathy/delirium. PLAN: 1. MRI brain with and without contrast (his spinal stimulator is MR- compatible)was desired but his spinal stimulator is not compatible with the 3T magnet. An MRI in the 1.5 Mishel machine without contrast will suffice. 2. Apixaban has been initiated for the atrial fibrillation Documented By: Jesus Fraser DO 05/06/246 Signed By: 05/06/[address] [facility]12-27-2024 Progress note Author Skyler Sanchez [facility] Note Date/Time May 05, 2024 11:27pm [facility] [address] [place] [address] Hospitalist Progress Note Signed Patient: Juan Simon MR#: [id number] : 1955 Acct:[id number] Age/Sex: 68 / M Adm Date: 4 Loc: 3T Room: [address] [place] [address] Type: ADM IN Attending Dr: Skyler Sanchez MD Copies to: ~ Date of Service: 05/05/2024 Subjective Subjective Narrative: 68M with PMH of Asthma, celiac disease, DJD and chronic back pain s/p spinal cord stimulator and nerve ablations, frequent Falls, migraines, MANUEL who presented with AMS and admitted for the evaluation and treatment of Afib RVR andcirculatory shock Assessment And Plan Circulatory shock - resolved He was given a total of multiple dose of metoprolol to control his Afib RVR. then he developed hypotension. he was given 3L of IVF. he was started on Levophed. Lactic wnl . he was admitted to the ICU . Pulmonary was consulted for critical care management Strep Bacteremia due to Strep UTI Sepsis due to above Hypotension noted in the ED with tachycardia and mild leukocytosis. he had feverup to 39.5C. he was started on broad spectrum IV antibiotics Lactic acid wnl CXR ED shows no acute cardiopulmonary abnormality Respiratory (Upper) Panel, PCR negative Blood Cx ED 05/02 Strep agalactiae urine Cx shows Enterococcus/Strep agalactiae Follow up Blood Cx 05/[address] abd shows No acute intra-abdominal process. Small bilateral pleural effusions. ID consult recommendation appreciated Agree with change to Unasyn Acute toxic-metabolic encephalopathy Septic encephalopathy with delirium the patient presents with acute confusional state and behavior changes noted by his Urine Tox screen is positive for amphetamine CT brain shows no acute intracranial process Ammonia wnl ABG shows no hypercapnia Could be due to the current infection other causes can't be ruled out Depakote was discontinued due to interaction with his apixaban, doxepin was discontinued given his cardiac dysrhythmia MRI (spinal stimulator is not compatible with the 3T magnet) can do 1.5 Mishel machine without contrast which we don't have (can be done as outpatient) neurology recommendation appreciated supportive and treatment of the underlying condition Newly diagnosed Paroxysmal Afib with RVR the patient was found to have Afib RVR in the ED with heart rate up to 150s and received multiple doses of metoprolol IV. he converted to NSR in the ED EKG ED 9:45 am (i personally reviewed) shows Afib@146 bpm without significant acute changes. EKG 3:20 pm shows NSR No significant electrolyte Abnormality, Mg 1.8 (replaced) TSH in EMR wnl Echocardiogram EF 60%, Mild he was evaluated by Cardiology; he is to continue Beta david, Digoxin and Eliquis Elevated Troponin Type II MD Troponin was found incidentally to be mildly elevated above normal limits 106 upto 311 . There is no chest pain, nor significant EKG changes. This is likely type 2 myocardial infarction secondary to ischemia due to increased oxygen demand and/or decreased supply in the setting of tachycardia . Troponin will be repeated. Further workup, if needed, can be done in an outpatient setting. Urinary Retention Hayden was inserted Impaired mobility and ADL PT/OT has been consulted. Nursing Home Facility,Inpatient Rehab Unit was recommended. INTERVAL HPI:?As Above, Pt resting in bed. still confused per no fever Chronic diseases:?Unless mentioned Above, Essential home medications have been continued.? DVT Px:?Addressed Disposition:?To be determined Plan of care Discussed with:?the medical team, the patient at bedside Exam Physical Exam Vital Signs: Temp Pulse Resp BP Pulse Ox O2 Del Method O2 Flow Rate 36.7 C 88 17 129/81 97 Nasal Cannula 2 05/05/24 08:13 05/05/24 11:40 05/05/24 11:40 05/05/24 11:40 05/05/24 11:40 05/05/24 11:40 05/05/24 11:40 Narrative: GEN: Cooperative, Not in acute distress. NECK: Supple, ? JVD LUNGS: CTA CV: S1S2 nl, 2/6 systolic murmur ABD: Soft, ND, NT, + BS, ? HSM EXT: No edema in LE bilaterally. NEURO: generalized weakness confused move all his exterminates , tremor in his hands PSYCH: flat affect, nl speech, AOx1-2 Objective Lab Results 05/05/24 04:10 05/05/24 04:10 Microbiology Results Microbiology 05/03/24 14:45 Blood Blood Culture - Preliminary No Growth 2 Days 05/03/24 14:30 Blood Blood Culture - Preliminary No Growth 2 Days 05/02/24 10:20 Blood - Left Hand Blood Culture - Final Strep agalactiae - (group b) 05/02/24 10:15 Blood - Left Antecubital Blood Culture - Final Strep agalactiae - (group b) 05/02/24 10:15 Blood - Left Antecubital Bacterial ID (NA Multiplex Assay) - Final 05/02/24 10:45 Urine - Clean-Voided Midstream Urine Culture - Final Enterococcus faecalis Strep agalactiae - (group b) Meds Allergies and Active Meds Allergies gluten Allergy (Unknown, Verified 05/02/24 09:54) Unknown Reaction Active Meds: Active Medications Generic Name Dose Route Start Last Admin Trade Name Freq PRN Reason Stop Dose Admin Acetaminophen 650 mg 05/02/24 17:28 05/05/24 13:25 Acetaminophen 325 Mg Tablet PO 05/02/25 17:27 650 mg Q6H PRN Administration Pain 1-5 or fever Albuterol 2.5 mg 05/02/24 17:27 05/05/24 03:13 Albuterol Neb 2.5 Mg/3 Ml Vial.Neb INHALATION 05/02/25 17:26 2.5 mg Q2H PRN Administration shortness of breath or wheezing Aspirin 81 mg 05/06/24 09:00 Aspirin 81 Mg Tablet. PO 05/06/25 08:59 DAILY EDIE Budesonide/Formoterol Fumarate 2 puff 05/02/24 21:00 05/05/24 04:14 Budesonide/Formoterol 160-4.5 Mcg 60 Puff/6 Gm Hfa.Aer.Ad INHALATION 05/02/25 20:59 2 puff BID DEIE Administration Duloxetine HCl 30 mg 05/02/24 21:00 05/05/24 08:15 Duloxetine 30 Mg Capsule. PO 05/02/25 20:59 30 mg BID EDIE Administration Sodium Chloride 500 mls @ 1 mls/hr 05/03/24 01:27 05/03/24 02:42 0.9% Sodium Chloride 500 Ml INTRA-ISREAL 05/03/25 01:26 1 mls/hr ONCE PRN Administration CVP Ampicillin Sodium/Sulbactam Sodium 3 gm in 100 mls @ 200 mls/hr 05/05/24 14:00 05/05/24 15:46 Unasyn IV 200 mls/hr Q6H EDIE Administration Metoprolol Succinate 25 mg 05/05/24 21:00 Metoprolol Succinate 25 Mg Tab.Er.24h PO 05/05/25 20:59 QPM EDIE Montelukast Sodium 10 mg 05/02/24 22:00 05/04/24 21:33 Montelukast 10 Mg Tablet PO 05/02/25 21:59 10 mg HS EDIE Administration Quetiapine Fumarate 12.5 mg 05/05/24 22:00 Quetiapine Fumarate 12.5 Mg Tablet PO 05/05/25 21:59 QHS EDIE Sodium Chloride 0 ml 05/02/24 09:53 05/03/24 17:15 Sodium Chloride 0.9 % 10 Ml Syringe IV-PUSH 05/02/25 09:52 10 ml PRN PRN Administration Flush A&P - Hospitalist Assessment/Plan (1) Atrial fibrillation with rapid ventricular response: Plan Documented By: Skyler Sanchez MD 05/05/241826 Signed By: <Electronically signed by Skyler Sanchez MD> 05/05/24 1986 [facility] Work Phone: 1(746) 953-681112-26-2024 [place] [address] Hospitalist Progress Note Signed Patient: Juan Simon MR#: [id number] : 1955 Acct:[id number] Age/Sex: 68 / M Adm Date: 4 Loc: Room: [address] [place] [address] Type: ADM IN Attending Dr: Skyler Sanchez MD Copies to: ~ Date of Service: 05/05/2024 Subjective Subjective Narrative: 68M with PMH of Asthma, celiac disease, DJD and chronic back pain s/p spinal cord stimulator and nerve ablations, frequent Falls, migraines, MANUEL who presented with AMS and admitted for the evaluationand treatment of Afib RVR andcirculatory shock Assessment And Plan Circulatory shock - resolved He was given a total of multiple dose of metoprolol to control his Afib RVR. then he developed hypotension. he was given 3L of IVF. he was started on Levophed. Lactic wnl . he was admitted to the ICU. Pulmonary was consulted for critical care management Strep Bacteremia due to Strep UTI Sepsis due to above Hypotension noted in the ED with tachycardia and mild leukocytosis. he had feverup to 39.5C. he wasstarted on broad spectrum IV antibiotics Lactic acid wnl CXR ED shows no acute cardiopulmonary abnormality Respiratory (Upper) Panel, PCR negative Blood Cx ED 05/02 Strep agalactiae urine Cx shows Enterococcus/Strep agalactiae Follow up Blood Cx 05/[address] abd shows No acute intra-abdominal process. Small bilateral pleural effusions. ID consult recommendation appreciated Agree with change to Unasyn Acute toxic-metabolic encephalopathy Septic encephalopathy with delirium the patient presents with acute confusional state and behavior changes noted by his Urine Tox screen is positive for amphetamine CT brain shows no acute intracranial process Ammonia wnl ABG shows no hypercapnia Could be due to the current infection other causes can't be ruled out Depakote was discontinued due to interaction with his apixaban, doxepin was discontinued given his cardiac dysrhythmia MRI (spinal stimulator is not compatible with the 3T magnet) can do 1.5 Mishel machine without contrast which we don't have (can be done as outpatient) neurology recommendation appreciated supportive and treatment of the underlying condition Newly diagnosed Paroxysmal Afib with RVR the patient was found to have Afib RVR in the ED with heart rate up to 150s and received multiple doses of metoprolol IV. he converted to NSR in the ED EKG ED 9:45 am (i personally reviewed) shows Afib@146 bpm without significant acute changes. EKG 3:20 pm shows NSR No significant electrolyte Abnormality, Mg 1.8 (replaced) TSH in EMR wnl Echocardiogram EF 60%, Mild he was evaluated by Cardiology; he is to continue Beta david, Digoxin and Eliquis Elevated Troponin Type II MD Troponin was found incidentally to be mildly elevated above normal limits 106 upto 311 . There is no chest pain, nor significant EKG changes. This is likely type 2 myocardial infarction secondary to ischemia due to increased oxygen demand and/or decreased supply in the setting of tachycardia . Troponin will be repeated. Further workup, if needed, can be done in an outpatient setting. Urinary Retention Hayden was inserted Impaired mobility and ADL PT/OT has been consulted. Nursing Home Facility,Inpatient Rehab Unit was recommended. INTERVAL HPI:?As Above, Pt resting in bed. still confused per no fever Chronic diseases:?Unless mentioned Above, Essential home medications have been continued.? DVT Px:?Addressed Disposition:?To be determined Plan of care Discussed with:?the medical team, the patient at bedside Exam Physical Exam Vital Signs: Temp Pulse Resp BP Pulse Ox O2 Del Method O2 Flow Rate 36.7 C 88 17 129/81 97 Nasal Cannula 2 05/05/24 08:13 05/05/24 11:40 05/05/24 11:40 05/05/24 11:40 05/05/24 11:40 05/05/24 11:40 05/05/24 11:40 Narrative: GEN: Cooperative, Not in acute distress. NECK: Supple, ? JVD LUNGS: CTA CV: S1S2 nl, 2/6 systolic murmur ABD: Soft, ND, NT, + BS, ? HSM EXT: No edema in LE bilaterally. NEURO: generalized weakness confused move all his exterminates , tremor in his hands PSYCH: flat affect, nl speech, AOx1-2 Objective Lab Results 05/05/24 04:10 05/05/24 04:10 Microbiology Results Microbiology 05/03/24 14:45 Blood Blood Culture - Preliminary No Growth 2 Days 05/03/24 14:30 Blood Blood Culture - Preliminary No Growth 2 Days 05/02/24 10:20 Blood - Left Hand Blood Culture - Final Strep agalactiae - (group b) 05/02/24 10:15 Blood - Left Antecubital Blood Culture - Final Strep agalactiae - (group b) 05/02/24 10:15 Blood - Left Antecubital Bacterial ID (NA Multiplex Assay) - Final 05/02/24 10:45 Urine - Clean-Voided Midstream Urine Culture - Final Enterococcus faecalis Strep agalactiae - (group b) Meds Allergies and Active Meds Allergies gluten Allergy (Unknown, Verified 05/02/24 09:54) Unknown Reaction Active Meds: Active Medications Generic Name Dose Route Start Last Admin Trade Name Freq PRN Reason Stop Dose Admin Acetaminophen 650 mg 05/02/24 17:28 05/05/24 13:25 Acetaminophen 325 Mg Tablet PO 05/02/25 17:27 650 mg Q6H PRN Administration Pain 1-5 or fever Albuterol 2.5 mg 05/02/24 17:27 05/05/24 03:13 Albuterol Neb 2.5 Mg/3 Ml Vial.Neb INHALATION 05/02/25 17:26 2.5 mg Q2H PRN Administration shortness of breath or wheezing Aspirin 81 mg 05/06/24 09:00 Aspirin 81 Mg Tablet. PO 05/06/25 08:59 DAILY EDIE Budesonide/Formoterol Fumarate 2 puff 05/02/24 21:00 05/05/24 04:14 Budesonide/Formoterol 160-4.5 Mcg 60 Puff/6 Gm Hfa.Aer.Ad INHALATION 05/02/25 20:59 2 puff BID EDIE Administration Duloxetine HCl 30 mg 05/02/24 21:00 05/05/24 08:15 Duloxetine 30 Mg Capsule. PO 05/02/25 20:59 30 mg BID EDIE Administration Sodium Chloride 500 mls @ 1 mls/hr 05/03/24 01:27 05/03/24 02:42 0.9% Sodium Chloride 500 Ml INTRA-ISREAL 05/03/25 01:26 1 mls/hr ONCE PRN Administration CVP Ampicillin Sodium/Sulbactam Sodium 3 gm in 100 mls @ 200 mls/hr 05/05/24 14:00 05/05/24 15:46 Unasyn IV 200 mls/hr Q6H EDIE Administration Metoprolol Succinate 25 mg 05/05/24 21:00 Metoprolol Succinate 25 Mg Tab.Er.24h PO 05/05/25 20:59 QPM EDIE Montelukast Sodium 10 mg 05/02/24 22:00 05/04/24 21:33 Montelukast 10 Mg Tablet PO 05/02/25 21:59 10 mg HS EDIE Administration Quetiapine Fumarate 12.5 mg 05/05/24 22:00 Quetiapine Fumarate 12.5 Mg Tablet PO 05/05/25 21:59 QHS EDIE Sodium Chloride 0 ml 05/02/24 09:53 05/03/24 17:15 Sodium Chloride 0.9 % 10 Ml Syringe IV-PUSH 05/02/25 09:52 10 ml PRN PRN Administration Flush A&P - Hospitalist Assessment/Plan (1) Atrial fibrillation with rapid ventricular response: Plan Documented By: Skyler Sanchez MD 05/05/241826 Signed By: 05/05/[address] [facility]12-26-2024 Progress note Author Jesus Fraser [facility] Note Date/Time May 05, 2024 2:09pm [facility] [address] [place] [address] Neurology Progress Note Signed Patient: Juan Simon MR#: [id number] : 1955 Acct:[id number] Age/Sex: 68 / M Adm Date: 4 Loc: Room: [address] [place] [address] Type: ADM IN Attending Dr: Skyler Sanchez MD Copies to: ~ Date of Service: 05/05/2024 Exam Physical Exam Vital Signs: Temp Pulse Resp BP Pulse Ox O2 Del Method O2 Flow Rate 98.0 F 88 17 129/81 97 Nasal Cannula 2 05/05/24 08:13 05/05/24 11:40 05/05/24 11:40 05/05/24 11:40 05/05/24 11:40 05/05/24 11:40 05/05/24 11:40 Objective Vital Signs Vital Signs: Vital Signs - 24 hr 05/04/24 16:00 05/04/24 18:00 05/04/24 21:18 Temperature 97.5 F L Pulse Rate 93 104 H Respiratory Rate 24 18 Blood Pressure 123/75 123/79 02 Sat by Pulse Oximetry 98 97 Oxygen Delivery Method Nasal Cannula Nasal Cannula Nasal Cannula Oxygen Flow Rate 2 2 2 05/04/24 21:18 05/04/24 22:55 05/04/24 23:29 Temperature 97.6 F Pulse Rate 94 Respiratory Rate 20 Blood Pressure 118/78 02 Sat by Pulse Oximetry 96 Oxygen Delivery Method Nasal Cannula Nasal Cannula Nasal Cannula Oxygen Flow Rate 2 2 2 05/05/24 01:04 05/05/24 03:07 05/05/24 03:13 Temperature 98.1 F Pulse Rate 98 96 Respiratory Rate 24 20 Blood Pressure 125/82 02 Sat by Pulse Oximetry 96 Oxygen Delivery Method Nasal Cannula Nasal Cannula Oxygen Flow Rate 2 2 05/05/24 08:13 05/05/24 08:15 05/05/24 10:00 Temperature 98.0 F Pulse Rate 108 H 108 H Respiratory Rate 20 Blood Pressure 132/80 02 Sat by Pulse Oximetry 96 Oxygen Delivery Method Nasal Cannula Nasal Cannula Oxygen Flow Rate 2 2 05/05/24 11:40 Temperature Pulse Rate 88 Respiratory Rate 17 Blood Pressure 129/81 02 Sat by Pulse Oximetry 97 Oxygen Delivery Method Nasal Cannula Oxygen Flow Rate 2 Labs 05/05/24 04:10 05/05/24 04:10 Therapy Recommendations Therapy Recommendations: PT Recommendations PT Recommended Discharge Nursing Home Facility,Inpatient Rehab Unit Location PT Recommended Services at Physical Therapy,Occupational Therapy Discharge Assessment/Plan (1) Altered mental status: Qualifiers: Altered mental status type: delirium Qualified Code(s): R41.0 - Disorientation, unspecified Plan CONSULT REASON: AMS INTERIM: More delirious today. Restless. Up in his chair attempting to eat lunch. Picking at things. Fidgety. His and daughter say he is confused today more than yesterday. EXAMINATION: In no distress. No deformities or trauma. Limbs seem well-perfused. No significant edema. Normal work of breathing. Visualized skin is generally intact and without lesions. Affect normal. Patient is slightly drowsy. Not oriented to [facility] or month or year, says it is June 2002. Attention significantly impaired. I think speech is nondysarthric and fluency is acceptable. Pupils are equal and reactive. Ocularmotility is full. No nystagmus. Facial sensation is normal. Hearing is normal. Facial strength is normal. Tongue is midline. Muscle bulk, tone, and strength are normal. Mild tremors. Light touch is intact. No ataxia in upper extremities. DATA REVIEW: -Head CT May 02, 2024 nonacute, shows chronic right mastoiditis and possible otitis -MRI brain September 22, 2023 without contrast looks unremarkable aside from some chronic age-related neurodegenerative changes -Blood cultures May 02, 2024 2 of 2 group B strep, urine culture with 20,000 colonies Enterococcus faecalis and strep group B ASSESSMENT: Septic encephalopathy with delirium (fluctuating alertness, some inattention, restless and fidgety), ongoing. His family is noticing some fluency issues. Consider acute embolic ischemic event given the new onset atrial fibrillation. I do not think he has any type of intracranial infectious process. He is being investigated in the outpatient setting for progressive cognitive decline with concern for dementia. If he has an underlying neurodegenerative disorder that would put him at increased risk for encephalopathy/delirium. PLAN: 1. MRI brain with and without contrast (his spinal stimulator is MR- compatible)was desired but his spinal stimulator is not compatible with the 3T magnet. An MRI in the 1.5 Mishel machine without contrast will suffice. 2. Apixaban has been initiated for the atrial fibrillation Documented By: Jesus Fraser DO 05/05/246 Signed By: <Electronically signed by Jesus Fraser DO> 05/05/24 1409 [facility] Work Phone: 1(483) 653-788712-26-2024 Progress note Author Moris Younger [facility] Note Date/Time May 05, 2024 12:37pm [facility] [address] [place] [address] Infect. Disease Progress Note Signed Patient: Juan Simon MR#: [id number] : 1955 Acct:[id number] Age/Sex: 68 / M Adm Date: 4 Loc: 3T Room: [address] [place] [address] Type: ADM IN Attending Dr: Skyler Sanchez MD Copies to: ~ Date of Service: 05/05/2024 Subjective Interval history: She seems to be doing okay. White count still remains slightly elevated and he is afebrile. Daughter tells me he is still confused but apparently has been confused and has been evaluated by neurology as an outpatient. His confusion got worse with this infection. Which is telling his daughter this morning abouta snowstorm that occurred and having total work?. Patient denies any difficulties breathing or shortness of breath or cough. Denies abdominal pain nausea vomiting and or diarrhea. He does complain of a headache. Exam Physical Exam Vital Signs: Vital Signs Temp Pulse Resp BP Pulse Ox O2 Del Method O2 Flow Rate 05/05/24 11:40 88 17 129/81 97 Nasal Cannula 2 05/05/24 10:00 Nasal Cannula 2 05/05/24 08:15 108 H 05/05/24 08:13 98.0 F 108 H 20 132/80 96 Nasal Cannula 2 05/05/24 03:13 96 20 05/05/24 03:07 98.1 F 98 24 125/82 96 Nasal Cannula 2 05/05/24 01:04 Nasal Cannula 2 05/04/24 23:29 97.6 F 94 20 118/78 96 Nasal Cannula 2 05/04/24 22:55 Nasal Cannula 2 05/04/24 21:18 Nasal Cannula 2 05/04/24 21:18 97.5 F L 104 H 18 123/79 97 Nasal Cannula 2 05/04/24 18:00 Nasal Cannula 2 05/04/24 16:00 93 24 123/75 98 Nasal Cannula 2 Intake and Output 05/04/24 05/05/24 05/05/24 23:59 07:59 15:59 Intake Total 600 / 600 Output Total 800 / 800 Balance -200 / -200 Intake: Oral 600 / 600 Output: Urine Amount (Catheter) 800 / 800 [place] 800 / 800 Other: # Bowel Movements 2 Weight 98.9 kg Date of Last Bowel Movement 05/04/24 Patient Weight 05/05/24 23:59 Weight 98.9 kg Const General: cooperative and comfortable Orientation: oriented x3 HEENT Head: normal to inspection Ears: hearing grossly normal bilaterally Mouth: oral mucosae normal Eyes General: appearance normal, both eyes and all related structures Neck Neck: normal visual inspection Chest Chest palpation & inspection: normal inspection of the chest Resp Effort & Inspection: normal respiratory effort Cardio Rate: regular rate Rhythm: regular rhythm GI Inspection: normal to inspection Palpation: soft and nontender Auscultation: normal bowel sounds Skin General: no rashes or lesions noted Neuro General: patient alert and patient awake Extrem General: normal to inspection Objective Labs CBC/BMP: CBC, BMP 05/05/24 04:10 Corrected WBC 11.0 H RBC 3.84 L Hgb 12.4 L Hct 36.5 L Plt Count 195 Sodium 135 L Potassium 4.1 Chloride 104 Carbon Dioxide 26.9 Anion Gap 8.2 BUN 16 Creatinine 0.64 L Calcium 8.1 L Labs: 05/05/24 04:10 BUN 16 Creatinine 0.64 L Microbiology Microbiology: Microbiology - Results from entire visit 05/02/24 10:20 Blood - Left Hand Blood Culture - Final Strep agalactiae - (group b) 05/02/24 10:15 Blood - Left Antecubital Blood Culture - Final Strep agalactiae - (group b) 05/02/24 10:15 Blood - Left Antecubital Bacterial ID (NA Multiplex Assay) - Final 05/03/24 14:45 Blood Blood Culture - Preliminary No Growth 1 Day 05/03/24 14:30 Blood Blood Culture - Preliminary No Growth 1 Day 05/02/24 10:45 Urine - Clean-Voided Midstream Urine Culture - Final Enterococcus faecalis Strep agalactiae - (group b) 05/02/24 10:40 Nasopharyngeal Respiratory Panel (PCR) - Final Additional Results Results Comment: CT : IMPRESSION: No acute intra-abdominal process. Small bilateral pleural effusions. Left nephrolithiasis. Allergies and Medications Allergies and Active Meds Allergies gluten Allergy (Unknown, Verified 05/02/24 09:54) Unknown Reaction Active Medications Acetaminophen (Acetaminophen 325 Mg Tablet) 650 mg PO Q6H PRN PRN Reason: Pain 1-5 or fever Stop: 05/02/25 17:27 Last Admin: 05/04/24 21:21 Dose: 650 mg Albuterol (Albuterol Neb 2.5 Mg/3 Ml Vial.Neb) 2.5 mg INHALATION Q2H PRN PRN Reason: shortness of breath or wheezing Stop: 05/02/25 17:26 Last Admin: 05/05/24 03:13 Dose: 2.5 mg Aspirin (Aspirin 81 Mg Tablet.) 81 mg PO DAILY [facility] Stop: 05/06/25 08:59 Budesonide/Formoterol Fumarate (Budesonide/Formoterol 160-4.5 Mcg 60 Puff/6 Gm Hfa.Aer.Ad) 2 puff INHALATION BID [facility] Stop: 05/02/25 20:59 Last Admin: 05/05/24 04:14 Dose: 2 puff Ceftriaxone Sodium (Ceftriaxone 2 Gm/20 Ml Syringe) 2 gm IV-PUSH DAILY@1100 [facility] Stop: 05/16/24 11:01 Last Admin: 05/05/24 11:41 Dose: 2 gm Duloxetine HCl (Duloxetine 30 Mg Capsule.Dr) 30 mg PO BID EDIE Stop: 05/02/25 20:59 Last Admin: 05/05/24 08:15 Dose: 30 mg Sodium Chloride (0.9% Sodium Chloride 500 Ml) 500 mls @ 1 mls/hr INTRA-ISREAL ONCE PRN PRN Reason: CVP Stop: 05/03/25 01:26 Last Admin: 05/03/24 02:42 Dose: 1 mls/hr Metoprolol Succinate (Metoprolol Succinate 25 Mg Tab.Er.24h) 25 mg PO QPM EDIE Stop: 05/05/25 20:59 Montelukast Sodium (Montelukast 10 Mg Tablet) 10 mg PO HS EDIE Stop: 05/02/25 21:59 Last Admin: 05/04/24 21:33 Dose: 10 mg Quetiapine Fumarate (Quetiapine Fumarate 12.5 Mg Tablet) 12.5 mg PO QHS EDIE Stop: 05/05/25 21:59 Sodium Chloride (Sodium Chloride 0.9 % 10 Ml Syringe) 0 ml IV-PUSH PRN PRN PRN Reason: Flush Stop: 05/02/25 09:52 Last Admin: 05/03/24 17:15 Dose: 10 ml A&P - Infectious Disease Assessment/Plan (1) Bacteremia due to group B Streptococcus: (2) Sepsis: (3) Altered mental status: Qualifiers: Altered mental status type: delirium Qualified Code(s): R41.0 - Disorientation, unspecified Plan Patient's urine culture did end up growing group B strep though still a low colony count. Patient still remains confused per his daughter. From an infection standpoint follow-up cultures are negative. No acute findings found on the CT scan of the pelvis. He currently is on ceftriaxone. Would suggest putting him on Unasyn and therefore then Augmentin for when discharge is warranted. Reason for the switch is to also target the low colony count of Enterococcus from the urine. Documented By: Moris Younger MD 05/05/24 123 Signed By: <Electronically signed by MD Moris Younger> 05/05/24 1232 [facility] Work Phone: [phone]) 666-681912-26-2024 [place] [address] Neurology Progress Note Signed Patient: Juan Simon MR#: [id number] : 1955 Acct:[id number] Age/Sex: 68 / M Adm Date: 4 Loc: Room: [address] [place] [address] Type: ADM IN Attending Dr: Skyler Sanchez MD Copies to: ~ Date of Service: 05/05/2024 Exam Physical Exam Vital Signs: Temp Pulse Resp BP Pulse Ox O2 Del Method O2 Flow Rate 98.0 F 88 17 129/81 97 Nasal Cannula 2 05/05/24 08:13 05/05/24 11:40 05/05/24 11:40 05/05/24 11:40 05/05/24 11:40 05/05/24 11:40 05/05/24 11:40 Objective Vital Signs Vital Signs: Vital Signs - 24 hr 05/04/24 16:00 05/04/24 18:00 05/04/24 21:18 Temperature 97.5 F L Pulse Rate 93 104 H Respiratory Rate 24 18 Blood Pressure 123/75 123/79 02 Sat by Pulse Oximetry 98 97 Oxygen Delivery Method Nasal Cannula Nasal Cannula Nasal Cannula Oxygen Flow Rate 2 2 2 05/04/24 21:18 05/04/24 22:55 05/04/24 23:29 Temperature 97.6 F Pulse Rate 94 Respiratory Rate 20 Blood Pressure 118/78 02 Sat by Pulse Oximetry 96 Oxygen Delivery Method Nasal Cannula Nasal Cannula Nasal Cannula Oxygen Flow Rate 2 2 2 05/05/24 01:04 05/05/24 03:07 05/05/24 03:13 Temperature 98.1 F Pulse Rate 98 96 Respiratory Rate 24 20 Blood Pressure 125/82 02 Sat by Pulse Oximetry 96 Oxygen Delivery Method Nasal Cannula Nasal Cannula Oxygen Flow Rate 2 2 05/05/24 08:13 05/05/24 08:15 05/05/24 10:00 Temperature 98.0 F Pulse Rate 108 H 108 H Respiratory Rate 20 Blood Pressure 132/80 02 Sat by Pulse Oximetry 96 Oxygen Delivery Method Nasal Cannula Nasal Cannula Oxygen Flow Rate 2 2 05/05/24 11:40 Temperature Pulse Rate 88 Respiratory Rate 17 Blood Pressure 129/81 02 Sat by Pulse Oximetry 97 Oxygen Delivery Method Nasal Cannula Oxygen Flow Rate 2 Labs 05/05/24 04:10 05/05/24 04:10 Therapy Recommendations Therapy Recommendations: PT Recommendations PT Recommended Discharge Nursing Home Facility,Inpatient Rehab Unit Location PT Recommended Services at Physical Therapy,Occupational Therapy Discharge Assessment/Plan (1) Altered mental status: Qualifiers: Altered mental status type: delirium Qualified Code(s): R41.0 - Disorientation, unspecified Plan CONSULT REASON: AMS INTERIM: More delirious today. Restless. Up in his chair attempting to eat lunch. Picking at things. Fidgety. His and daughter say he is confused today more than yesterday. EXAMINATION: In no distress. No deformities or trauma. Limbs seem well-perfused. No significant edema. Normal work of breathing. Visualized skin is generally intact and without lesions. Affect normal. Patient is slightly drowsy. Not oriented to [facility] or month or year, says it is June 2002. Attention significantly impaired. I think speech is nondysarthric and fluency is acceptable. Pupils are equal and reactive. Ocularmotility is full. No nystagmus. Facial sensation is normal.Hearing is normal. Facial strength is normal. Tongue is midline. Muscle bulk, tone, and strength are normal. Mild tremors. Light touch is intact. No ataxia in upper extremities. DATA REVIEW: -Head CT May 02, 2024 nonacute, shows chronic right mastoiditis and possible otitis -MRI brain September 22, 2023 without contrast looks unremarkable aside from some chronic age-related neurodegenerative changes -Blood cultures May 02, 2024 2 of 2 group B strep, urine culture with 20,000 colonies Enterococcus faecalis and strep group B ASSESSMENT: Septic encephalopathy with delirium (fluctuating alertness, some inattention, restless and fidgety), ongoing. His family is noticing some fluency issues. Consider acute embolic ischemic event given the new onset atrial fibrillation. I do not think he has any type of intracranial infectious process. He is being investigated in the outpatient setting for progressive cognitive decline with concern for dementia. If he has an underlying neurodegenerative disorder that would put him at increased riskfor encephalopathy/delirium. PLAN: 1. MRI brain with and without contrast (his spinal stimulator is MR- compatible)was desired but his spinal stimulator is not compatible with the 3T magnet. An MRI in the 1.5 Mishel machine without contrast will suffice. 2. Apixaban has been initiated for the atrial fibrillation Documented By: Jesus Fraser DO 05/05/24 1406 Signed By: 05/05/[address] [facility]12-26-2024 Progress note Author Juanito Solis [facility] Note Date/Time May 05, 2024 10:48am [facility] [address] [place] [address] Cardiology Progress Note Signed Patient: Juan Simon MR#: [id number] : 1955 Acct:[id number] Age/Sex: 68 / M Adm Date: 4 Loc: Room: [address] [place] [address] Type: ADM IN Attending Dr: Skyler Sanchez MD Copies to: ~ Date of Service: 05/05/2024 Subjective Principal diagnosis: Sepsis, paroxysmal atrial fibrillation Interval history: Mr. Simon continues to clinically improved this morning. He is in a telemetry bed and out of the ICU setting. He is resting comfortably on my evaluation. He is awake and alert and aware of his surroundings. Within the last 12 hours he is converted from atrial fibrillation to normal sinus mechanism. From a cardiovascular standpoint no new complaints or issues. Exam Physical Exam Vital Signs: Temp Pulse Resp BP Pulse Ox O2 Del Method O2 Flow Rate 98.0 F 108 H 20 132/80 96 Nasal Cannula 2 05/05/24 08:13 05/05/24 08:15 05/05/24 08:13 05/05/24 08:13 05/05/24 08:13 05/05/24 08:13 05/05/24 08:13 Const General: no acute distress and ill appearing Nutritional Appearance: obese Orientation: alert and awake HEENT Mouth: moist mucous membranes Teeth and gingiva: fair dentition Eyes Conjunctivae: conjunctivae normal Sclera: sclerae normal Pupils: PERRL and normal by confrontation EOM: EOM intact bilaterally Direct ophthalmoscopy: no photophobia Neck Neck: no lymphadenopathy and supple Neck mass: No Thyroid: thyroid normal Carotids: normal carotid upstroke Lymphatic: no lymphadenopathy noted Resp Effort & Inspection: normal respiratory effort, able to speak in complete sentences and symmetric chest movement Auscultation: rhonchi and wheezes Cardio Jugular venous pressure: no JVD Palpation: normal PMI Rate: regular rate Rhythm: abnormal rhythm Heart Sounds: S1 normal, S2 normal and murmur Pulses: radial pulses present and femoral pulses present GI Palpation: soft and no hepatosplenomegaly Skin General: no rashes or lesions noted Neuro Cranial Nerves: CN's II-XII intact bilaterally Motor: muscle tone normal throughout Sensory Exam: no sensory deficits noted Psych Insight: fair Judgment: fair Objective Labs 05/05/24 04:10 05/05/24 04:10 Labs: Laboratory Results - last 24 hr 05/05/24 04:10 Corrected WBC 11.0 H RBC 3.84 L Hgb 12.4 L Hct 36.5 L MCV 95.0 MCH 32.2 MCHC 33.9 RDW 15.0 H Plt Count 195 MPV 7.1 PHA Creatinine Clear 93.68 Sodium 135 L Potassium 4.1 Chloride 104 Carbon Dioxide 26.9 Anion Gap 8.2 BUN 16 Creatinine 0.64 L Est GFR (CKD-EPI) > 60.0 Glucose 103 H Calcium 8.1 L A&P - Cardiology (1) Atrial fibrillation with rapid ventricular response: Assessment/Problem Details: Likely paroxysmal atrial fibrillation in the setting of an elevated catecholamine state during systemic sepsis. Now converted back to normal sinus mechanism. Plan: 1. Will discontinue oral digoxin 2. Recommend maintain low-dose beta-blockade: Metoprolol succinate 25 mg nightly 3. Discontinue DOAC anticoagulation. Replace with aspirin 81 mg daily 4. Recommend continued aggressive medical management and treatment of septic physiology 5. Cardiology will sign off for now. Following hospital discharge the patient may follow-up with his primary care provider. Please do not hesitate to reconsult should further active cardiac issues arise. Code(s): I48.91 - Unspecified atrial fibrillation Plan Thank you very much for this kind consultation and for allowing me to dissipate in the care of this very pleasant patient and his family. Documented By: Juanito Solis MD 05/05/24 1043 Signed By: <Electronically signed by Juanito Solis MD> 05/05/24 1048 [facility] Work Phone: 1(426) 331-268612-26-2024 [place] [address] Infect. Disease Progress Note Signed Patient: Juan Simon MR#: [id number] : 1955 Acct:[id number] Age/Sex: 68 / M Adm Date: 4 Loc: Room: [address] [place] [address] Type: ADM IN Attending Dr: Skyler Sanchez MD Copies to: ~ Date of Service: 05/05/2024 Subjective Interval history: She seems to be doing okay. White count still remains slightly elevated and he is afebrile. Daughter tells me he is still confused but apparently has been confused and has been evaluated by neurologyas an outpatient. His confusion got worse with this infection. Which is telling his daughter this morning abouta snowstorm that occurred and having total work?. Patient denies any difficulties breathing or shortness of breath or cough. Denies abdominal pain nausea vomiting and or diarrhea. He does complain of a headache. Exam Physical Exam Vital Signs: Vital Signs Temp Pulse Resp BP Pulse Ox O2 Del Method O2 Flow Rate 05/05/24 11:40 88 17 129/81 97 Nasal Cannula 2 05/05/24 10:00 Nasal Cannula 2 05/05/24 08:15 108 H 05/05/24 08:13 98.0 F 108 H 20 132/80 96 Nasal Cannula 2 05/05/24 03:13 96 20 05/05/24 03:07 98.1 F 98 24 125/82 96 Nasal Cannula 2 05/05/24 01:04 Nasal Cannula 2 05/04/24 23:29 97.6 F 94 20 118/78 96 Nasal Cannula 2 05/04/24 22:55 Nasal Cannula 2 05/04/24 21:18 Nasal Cannula 2 05/04/24 21:18 97.5 F L 104 H 18 123/79 97 Nasal Cannula 2 05/04/24 18:00 Nasal Cannula 2 05/04/24 16:00 93 24 123/75 98 Nasal Cannula 2 Intake and Output 05/04/24 05/05/24 05/05/24 23:59 07:59 15:59 Intake Total 600 / 600 Output Total 800 / 800 Balance -200 / -200 Intake: Oral 600 / 600 Output: Urine Amount (Catheter) 800 / 800 [place] 800 / 800 Other: # Bowel Movements 2 Weight 98.9 kg Date of Last Bowel Movement 05/04/24 Patient Weight 05/05/24 23:59 Weight 98.9 kg Const General: cooperative and comfortable Orientation: oriented x3 HEENT Head: normal to inspection Ears: hearing grossly normal bilaterally Mouth: oral mucosae normal Eyes General: appearance normal, both eyes and all related structures Neck Neck: normal visual inspection Chest Chest palpation & inspection: normal inspection of the chest Resp Effort & Inspection: normal respiratory effort Cardio Rate: regular rate Rhythm: regular rhythm GI Inspection: normal to inspection Palpation: soft and nontender Auscultation: normal bowel sounds Skin General: no rashes or lesions noted Neuro General: patient alert and patient awake Extrem General: normal to inspection Objective Labs CBC/BMP: CBC, BMP 05/05/24 04:10 Corrected WBC 11.0 H RBC 3.84 L Hgb 12.4 L Hct 36.5 L Plt Count 195 Sodium 135 L Potassium 4.1 Chloride 104 Carbon Dioxide 26.9 Anion Gap 8.2 BUN 16 Creatinine 0.64 L Calcium 8.1 L Labs: 05/05/24 04:10 BUN 16 Creatinine 0.64 L Microbiology Microbiology: Microbiology - Results from entire visit 05/02/24 10:20 Blood - Left Hand Blood Culture - Final Strep agalactiae - (group b) 05/02/24 10:15 Blood - Left Antecubital Blood Culture - Final Strep agalactiae - (group b) 05/02/24 10:15 Blood - Left Antecubital Bacterial ID (NA Multiplex Assay) - Final 05/03/24 14:45 Blood Blood Culture - Preliminary No Growth 1 Day 05/03/24 14:30 Blood Blood Culture - Preliminary No Growth 1 Day 05/02/24 10:45 Urine - Clean-Voided Midstream Urine Culture - Final Enterococcus faecalis Strep agalactiae - (group b) 05/02/24 10:40 Nasopharyngeal Respiratory Panel (PCR) - Final Additional Results Results Comment: CT : IMPRESSION: No acute intra-abdominal process. Small bilateral pleural effusions. Left nephrolithiasis. Allergies and Medications Allergies and Active Meds Allergies gluten Allergy (Unknown, Verified 05/02/24 09:54) Unknown Reaction Active Medications Acetaminophen (Acetaminophen 325 Mg Tablet) 650 mg PO Q6H PRN PRN Reason: Pain 1-5 or fever Stop: 05/02/25 17:27 Last Admin: 05/04/24 21:21 Dose: 650 mg Albuterol (Albuterol Neb 2.5 Mg/3 Ml Vial.Neb) 2.5 mg INHALATION Q2H PRN PRN Reason: shortness of breath or wheezing Stop: 05/02/25 17:26 Last Admin: 05/05/24 03:13 Dose: 2.5 mg Aspirin (Aspirin 81 Mg Tablet.) 81 mg PO DAILY EDIE Stop: 05/06/25 08:59 Budesonide/Formoterol Fumarate (Budesonide/Formoterol 160-4.5 Mcg 60 Puff/6 Gm Hfa.Aer.Ad) 2 puff INHALATION BID EDIE Stop: 05/02/25 20:59 Last Admin: 05/05/24 04:14 Dose: 2 puff Ceftriaxone Sodium (Ceftriaxone 2 Gm/20 Ml Syringe) 2 gm IV-PUSH DAILY@1100 EDIE Stop: 05/16/24 11:01 Last Admin: 05/05/24 11:41 Dose: 2 gm Duloxetine HCl (Duloxetine 30 Mg Capsule.) 30 mg PO BID EDIE Stop: 05/02/25 20:59 Last Admin: 05/05/24 08:15 Dose: 30 mg Sodium Chloride (0.9% Sodium Chloride 500 Ml) 500 mls @ 1 mls/hr INTRA-ISREAL ONCE PRN PRN Reason: CVP Stop: 05/03/25 01:26 Last Admin: 05/03/24 02:42 Dose: 1 mls/hr Metoprolol Succinate (Metoprolol Succinate 25 Mg Tab.Er.24h) 25 mg PO QPM EDIE Stop: 05/05/25 20:59 Montelukast Sodium (Montelukast 10 Mg Tablet) 10 mg PO HS EDIE Stop: 05/02/25 21:59 Last Admin: 05/04/24 21:33 Dose: 10 mg Quetiapine Fumarate (Quetiapine Fumarate 12.5 Mg Tablet) 12.5 mg PO QHS EDIE Stop: 05/05/25 21:59 Sodium Chloride (Sodium Chloride 0.9 % 10 Ml Syringe) 0 ml IV-PUSH PRN PRN PRN Reason: Flush Stop: 05/02/25 09:52 Last Admin: 05/03/24 17:15 Dose: 10 ml A&P - Infectious Disease Assessment/Plan (1) Bacteremia due to group B Streptococcus: (2) Sepsis: (3) Altered mental status: Qualifiers: Altered mental status type: delirium Qualified Code(s): R41.0 - Disorientation, unspecified Plan Patient's urine culture did end up growing group B strep though still a low colony count. Patient still remains confused per his daughter. From an infection standpoint follow-up cultures are negative. No acute findings found on the CT scan of the pelvis. He currently is on ceftriaxone. Would suggest putting him on Unasyn and therefore then Augmentin for when discharge is warranted. Reason for theswitch is to also target the low colony count of Enterococcus from the urine. Documented By: Moris Younger MD 05/05/24 1232 Signed By: 05/05/[address] [facility]12-26-2024 [place] [address] Cardiology Progress Note Signed Patient: Juan Simon MR#: [id number] : 1955 Acct:[id number] Age/Sex: 68 / M Adm Date: 4 Loc: Room: [address] [place] [address] Type: ADM IN Attending Dr: Skyler Sanchez MD Copies to: ~ Date of Service: 05/05/2024 Subjective Principal diagnosis: Sepsis, paroxysmal atrial fibrillation Interval history: Mr. Simon continues to clinically improved this morning. He is in a telemetry bed and out of the ICU setting. He is resting comfortably on my evaluation. He is awake and alert and aware of his surroundings. Within the last 12 hours he is converted from atrial fibrillation to normal sinus mechanism. From a cardiovascular standpoint no new complaints or issues. Exam Physical Exam Vital Signs: Temp Pulse Resp BP Pulse Ox O2 Del Method O2 Flow Rate 98.0 F 108 H 20 132/80 96 Nasal Cannula 2 05/05/24 08:13 05/05/24 08:15 05/05/24 08:13 05/05/24 08:13 05/05/24 08:13 05/05/24 08:13 05/05/24 08:13 Const General: no acute distress and ill appearing Nutritional Appearance: obese Orientation: alert and awake HEENT Mouth: moist mucous membranes Teeth and gingiva: fair dentition Eyes Conjunctivae: conjunctivae normal Sclera: sclerae normal Pupils: PERRL and normal by confrontation EOM: EOM intact bilaterally Direct ophthalmoscopy: no photophobia Neck Neck: no lymphadenopathy and supple Neck mass: No Thyroid: thyroid normal Carotids: normal carotid upstroke Lymphatic: no lymphadenopathy noted Resp Effort & Inspection: normal respiratory effort, able to speak in complete sentences and symmetric chest movement Auscultation: rhonchi and wheezes Cardio Jugular venous pressure: no JVD Palpation: normal PMI Rate: regular rate Rhythm: abnormal rhythm Heart Sounds: S1 normal, S2 normal and murmur Pulses: radial pulses present and femoral pulses present GI Palpation: soft and no hepatosplenomegaly Skin General: no rashes or lesions noted Neuro Cranial Nerves: CN's II-XII intact bilaterally Motor: muscle tone normal throughout Sensory Exam: no sensory deficits noted Psych Insight: fair Judgment: fair Objective Labs 05/05/24 04:10 05/05/24 04:10 Labs: Laboratory Results - last 24 hr 05/05/24 04:10 Corrected WBC 11.0 H RBC 3.84 L Hgb 12.4 L Hct 36.5 L MCV 95.0 MCH 32.2 MCHC 33.9 RDW 15.0 H Plt Count 195 MPV 7.1 PHA Creatinine Clear 93.68 Sodium 135 L Potassium 4.1 Chloride 104 Carbon Dioxide 26.9 Anion Gap 8.2 BUN 16 Creatinine 0.64 L Est GFR (CKD-EPI) > 60.0 Glucose 103 H Calcium 8.1 L A&P - Cardiology (1) Atrial fibrillation with rapid ventricular response: Assessment/Problem Details: Likely paroxysmal atrial fibrillation in the setting of an elevated catecholamine state during systemic sepsis. Now converted back to normal sinus mechanism. Plan: 1. Will discontinue oral digoxin 2. Recommend maintain low-dose beta-blockade: Metoprolol succinate 25 mg nightly 3. Discontinue DOAC anticoagulation. Replace with aspirin 81 mg daily 4. Recommend continued aggressive medical management and treatment of septic physiology 5. Cardiology will sign off for now. Following hospital discharge the patient may follow-up with his primary care provider. Please do not hesitate to reconsult should further active cardiac issues arise. Code(s): I48.91 - Unspecified atrial fibrillation Plan Thank you very much for this kind consultation and for allowing me to dissipate in the care of thisvery pleasant patient and his family. Documented By: Juanito Solis MD 05/05/24 104 Signed By: 05/05/[address] [facility]12-26-2024 Progress note Author Skyler Sanchez [facility] Note Date/Time May 04, 2024 10:47pm [facility] [address] [place] [address] Hospitalist Progress Note Signed Patient: Juan Simon MR#: [id number] : 1955 Acct:[id number] Age/Sex: 68 / M Adm Date: 4 Loc: 3T Room: [address] [place] [address] Type: ADM IN Attending Dr: Skyler Sanchez MD Copies to: ~ Date of Service: 05/04/2024 Subjective Subjective Narrative: 68M with PMH of Asthma, celiac disease, DJD and chronic back pain s/p spinal cord stimulator and nerve ablations, frequent Falls, migraines, MANUEL who presented with AMS and admitted for the evaluation and treatment of Afib RVR andcirculatory shock Assessment And Plan Circulatory shock - resolved He was given a total of multiple dose of metoprolol to control his Afib RVR. then he developed hypotension. he was given 3L of IVF. he was started on Levophed. Lactic wnl . he was admitted to the ICU . Pulmonary consult for critical care management Move out ICU d/w dr. Matias Strep Bacteremia due to Strep UTI Sepsis due to above Hypotension noted in the ED with tachycardia and mild leukocytosis. he had feverup to 39.5C. he was started on broad spectrum IV antibiotics Lactic acid wnl CXR ED shows no acute cardiopulmonary abnormality Respiratory (Upper) Panel, PCR negative Blood Cx ED tow sets with Strep agalactiae urine Cx shows Enterococcus/Strep agalactiae CT abd shows No acute intra-abdominal process. Small bilateral pleural effusions. ID consult recommendation appreciated repeat blood culture in am Agree with change to Ceftriaxone Acute toxic-metabolic encephalopathy Septic encephalopathy with delirium the patient presents with acute confusional state and behavior changes noted by his Urine Tox screen is positive for amphetamine CT brain shows no acute intracranial process Ammonia wnl ABG shows no hypercapnia Could be due to the current infection other causes can't be ruled out Depakote was discontinued due to interaction with his apixaban, doxepin was discontinued given his cardiac dysrhythmia neurology recommendation appreciated Agree with MRI supportive and treatment of the underlying condition Newly diagnosed Paroxysmal Afib with RVR NSR no chest pain or SOB the patient was found to have Afib RVR in the ED with heart rate up to 150s and received multiple doses of metoprolol IV. he converted to NSR in the ED EKG ED 9:45 am (i personally reviewed) shows Afib@146 bpm without significant acute changes. EKG 3:20 pm shows NSR No significant electrolyte Abnormality, Mg 1.8 (replaced) TSH in EMR wnl Echocardiogram EF 60%, Mild Telemetry Agree with Digoxin and metoprolol Agree with Eliquis Cardiology recommendation appreciated Elevated Troponin Type II MD Troponin was found incidentally to be mildly elevated above normal limits 106 upto 311 . There is no chest pain, nor significant EKG changes. This is likely type 2 myocardial infarction secondary to ischemia due to increased oxygen demand and/or decreased supply in the setting of tachycardia . Troponin will be repeated. Further workup, if needed, can be done in an outpatient setting. Urinary Retention Hayden was inserted INTERVAL HPI:?As Above, Pt resting in bed. still confused per little bit better. no fever Chronic diseases:?Unless mentioned Above, Essential home medications have been continued.? DVT Px:?Addressed Disposition:?To be determined Plan of care Discussed with:?the medical team, the patient at bedside Exam Physical Exam Vital Signs: Temp Pulse Resp BP Pulse Ox O2 Del Method O2 Flow Rate 36.6 C 93 26 H 111/60 96 Nasal Cannula 2 05/04/24 12:00 05/04/24 12:00 05/04/24 12:00 05/04/24 12:00 05/04/24 12:00 05/04/24 12:00 05/04/24 12:00 Narrative: GEN: Cooperative, Not in acute distress. NECK: Supple, ? JVD LUNGS: CTA CV: S1S2 nl, 2/6 systolic murmur ABD: Soft, ND, NT, + BS, ? HSM EXT: No edema in LE bilaterally. NEURO: generalized weakness confused move all his exterminates , tremor in his hands PSYCH: flat affect, nl speech, AOx2-3 Objective Lab Results 05/04/24 04:57 05/04/24 04:57 Microbiology Results Microbiology 05/02/24 10:20 Blood - Left Hand Blood Culture - Preliminary Strep agalactiae - (group b) 05/02/24 10:15 Blood - Left Antecubital Blood Culture - Preliminary Strep agalactiae - (group b) 05/02/24 10:15 Blood - Left Antecubital Bacterial ID (NA Multiplex Assay) - Final 05/02/24 10:45 Urine - Clean-Voided Midstream Urine Culture - Preliminary Enterococcus faecalis Strep agalactiae - (group b) Meds Allergies and Active Meds Allergies gluten Allergy (Unknown, Verified 05/02/24 09:54) Unknown Reaction Active Meds: Active Medications Generic Name Dose Route Start Last Admin Trade Name Freq PRN Reason Stop Dose Admin Acetaminophen 650 mg 05/02/24 17:28 05/04/24 01:25 Acetaminophen 325 Mg Tablet PO 05/02/25 17:27 650 mg Q6H PRN Administration Pain 1-5 or fever Albuterol 2.5 mg 05/02/24 17:27 Albuterol Neb 2.5 Mg/3 Ml Vial.Neb INHALATION 05/02/25 17:26 Q2H PRN shortness of breath or wheezing Apixaban 5 mg 05/03/24 21:00 05/04/24 09:01 Apixaban 5 Mg Tablet PO 05/03/25 20:59 5 mg BID EDIE Administration Budesonide/Formoterol Fumarate 2 puff 05/02/24 21:00 05/04/24 05:43 Budesonide/Formoterol 160-4.5 Mcg 60 Puff/6 Gm Hfa.Aer.Ad INHALATION 05/02/25 20:59 2 puff BID EDIE Administration Ceftriaxone Sodium 2 gm 05/03/24 11:00 05/04/24 11:57 Ceftriaxone 2 Gm/20 Ml Syringe IV-PUSH 05/16/24 11:01 2 gm DAILY@1100 EDIE Administration Digoxin 125 mcg 05/04/24 11:00 05/04/24 11:56 Digoxin 125 Mcg Tablet PO 05/04/25 10:59 125 mcg DAILY EDIE Administration Duloxetine HCl 30 mg 05/02/24 21:00 05/04/24 09:01 Duloxetine 30 Mg Capsule.Dr PO 05/02/25 20:59 30 mg BID EDIE Administration Sodium Chloride 500 mls @ 1 mls/hr 05/03/24 01:27 05/03/24 02:42 0.9% Sodium Chloride 500 Ml INTRA-ISREAL 05/03/25 01:26 1 mls/hr ONCE PRN Administration CVP Metoprolol Tartrate 25 mg 05/04/24 14:00 Metoprolol Tartrate 25 Mg Tablet PO 05/04/25 13:59 TID EDIE Montelukast Sodium 10 mg 05/02/24 22:00 05/03/24 22:00 Montelukast 10 Mg Tablet PO 05/02/25 21:59 10 mg HS EDIE Administration Sodium Chloride 0 ml 05/02/24 09:53 05/03/24 17:15 Sodium Chloride 0.9 % 10 Ml Syringe IV-PUSH 05/02/25 09:52 10 ml PRN PRN Administration Flush A&P - Hospitalist Assessment/Plan (1) Atrial fibrillation with rapid ventricular response: Plan Documented By: Skyler Sanchez MD 05/04/24 1313 Signed By: <Electronically signed by Skyler Sanchez MD> 05/04/24 0418 [facility] Work Phone: [phone]) 217-718812-25-2024 [place] [address] Hospitalist Progress Note Signed Patient: Juan Simon MR#: [id number] : 1955 Acct:[id number] Age/Sex: 68 / M Adm Date: 4 Loc: Room: [address] [place] [address] Type: ADM IN Attending Dr: Skyler Sanchez MD Copies to: ~ Date of Service: 05/04/2024 Subjective Subjective Narrative: 68M with PMH of Asthma, celiac disease, DJD and chronic back pain s/p spinal cord stimulator and nerve ablations, frequent Falls, migraines, MANUEL who presented with AMS and admitted for the evaluationand treatment of Afib RVR andcirculatory shock Assessment And Plan Circulatory shock - resolved He was given a total of multiple dose of metoprolol to control his Afib RVR. then he developed hypotension. he was given 3L of IVF. he was started on Levophed. Lactic wnl . he was admitted to the ICU. Pulmonary consult for critical care management Move out ICU d/w dr. Matias Strep Bacteremia due to Strep UTI Sepsis due to above Hypotension noted in the ED with tachycardia and mild leukocytosis. he had feverup to 39.5C. he wasstarted on broad spectrum IV antibiotics Lactic acid wnl CXR ED shows no acute cardiopulmonary abnormality Respiratory (Upper) Panel, PCR negative Blood Cx ED tow sets with Strep agalactiae urine Cx shows Enterococcus/Strep agalactiae CT abd shows No acute intra-abdominal process. Small bilateral pleural effusions. ID consult recommendation appreciated repeat blood culture in am Agree with change to Ceftriaxone Acute toxic-metabolic encephalopathy Septic encephalopathy with delirium the patient presents with acute confusional state and behavior changes noted by his Urine Tox screen is positive for amphetamine CT brain shows no acute intracranial process Ammonia wnl ABG shows no hypercapnia Could be due to the current infection other causes can't be ruled out Depakote was discontinued due to interaction with his apixaban, doxepin was discontinued given his cardiac dysrhythmia neurology recommendation appreciated Agree with MRI supportive and treatment of the underlying condition Newly diagnosed Paroxysmal Afib with RVR NSR no chest pain or SOB the patient was found to have Afib RVR in the ED with heart rate up to 150s and received multiple doses of metoprolol IV. he converted to NSR in the ED EKG ED 9:45 am (i personally reviewed) shows Afib@146 bpm without significant acute changes. EKG 3:20 pm shows NSR No significant electrolyte Abnormality, Mg 1.8 (replaced) TSH in EMR wnl Echocardiogram EF 60%, Mild Telemetry Agree with Digoxin and metoprolol Agree with Eliquis Cardiology recommendation appreciated Elevated Troponin Type II MD Troponin was found incidentally to be mildly elevated above normal limits 106 upto 311 . There is no chest pain, nor significant EKG changes. This is likely type 2 myocardial infarction secondary to ischemia due to increased oxygen demand and/or decreased supply in the setting of tachycardia . Troponin will be repeated. Further workup, if needed, can be done in an outpatient setting. Urinary Retention Hayden was inserted INTERVAL HPI:?As Above, Pt resting in bed. still confused per little bit better. no fever Chronic diseases:?Unless mentioned Above, Essential home medications have been continued.? DVT Px:?Addressed Disposition:?To be determined Plan of care Discussed with:?the medical team, the patient at bedside Exam Physical Exam Vital Signs: Temp Pulse Resp BP Pulse Ox O2 Del Method O2 Flow Rate 36.6 C 93 26 H 111/60 96 Nasal Cannula 2 05/04/24 12:00 05/04/24 12:00 05/04/24 12:00 05/04/24 12:00 05/04/24 12:00 05/04/24 12:00 05/04/24 12:00 Narrative: GEN: Cooperative, Not in acute distress. NECK: Supple, ? JVD LUNGS: CTA CV: S1S2 nl, 2/6 systolic murmur ABD: Soft, ND, NT, + BS, ? HSM EXT: No edema in LE bilaterally. NEURO: generalized weakness confused move all his exterminates , tremor in his hands PSYCH: flat affect, nl speech, AOx2-3 Objective Lab Results 05/04/24 04:57 05/04/24 04:57 Microbiology Results Microbiology 05/02/24 10:20 Blood - Left Hand Blood Culture - Preliminary Strep agalactiae - (group b) 05/02/24 10:15 Blood - Left Antecubital Blood Culture - Preliminary Strep agalactiae - (group b) 05/02/24 10:15 Blood - Left Antecubital Bacterial ID (NA Multiplex Assay) - Final 05/02/24 10:45 Urine - Clean-Voided Midstream Urine Culture - Preliminary Enterococcus faecalis Strep agalactiae - (group b) [facility] Allergies and Active Meds Allergies gluten Allergy (Unknown, Verified 05/02/24 09:54) Unknown Reaction Active Meds: Active Medications Generic Name Dose Route Start Last Admin Trade Name Freq PRN Reason Stop Dose Admin Acetaminophen 650 mg 05/02/24 17:28 05/04/24 01:25 Acetaminophen 325 Mg Tablet PO 05/02/25 17:27 650 mg Q6H PRN Administration Pain 1-5 or fever Albuterol 2.5 mg 05/02/24 17:27 Albuterol Neb 2.5 Mg/3 Ml Vial.Neb INHALATION 05/02/25 17:26 Q2H PRN shortness of breath or wheezing Apixaban 5 mg 05/03/24 21:00 05/04/24 09:01 Apixaban 5 Mg Tablet PO 05/03/25 20:59 5 mg BID EDIE Administration Budesonide/Formoterol Fumarate 2 puff 05/02/24 21:00 05/04/24 05:43 Budesonide/Formoterol 160-4.5 Mcg 60 Puff/6 Gm Hfa.Aer.Ad INHALATION 05/02/25 20:59 2 puff BID EDIE Administration Ceftriaxone Sodium 2 gm 05/03/24 11:00 05/04/24 11:57 Ceftriaxone 2 Gm/20 Ml Syringe IV-PUSH 05/16/24 11:01 2 gm DAILY@1100 EDIE Administration Digoxin 125 mcg 05/04/24 11:00 05/04/24 11:56 Digoxin 125 Mcg Tablet PO 05/04/25 10:59 125 mcg DAILY EDIE Administration Duloxetine HCl 30 mg 05/02/24 21:00 05/04/24 09:01 Duloxetine 30 Mg Capsule.Dr PO 05/02/25 20:59 30 mg BID EDIE Administration Sodium Chloride 500 mls @ 1 mls/hr 05/03/24 01:27 05/03/24 02:42 0.9% Sodium Chloride 500 Ml INTRA-ISREAL 05/03/25 01:26 1 mls/hr ONCE PRN Administration CVP Metoprolol Tartrate 25 mg 05/04/24 14:00 Metoprolol Tartrate 25 Mg Tablet PO 05/04/25 13:59 TID EDIE Montelukast Sodium 10 mg 05/02/24 22:00 05/03/24 22:00 Montelukast 10 Mg Tablet PO 05/02/25 21:59 10 mg HS EDIE Administration Sodium Chloride 0 ml 05/02/24 09:53 05/03/24 17:15 Sodium Chloride 0.9 % 10 Ml Syringe IV-PUSH 05/02/25 09:52 10 ml PRN PRN Administration Flush A&P - Hospitalist Assessment/Plan (1) Atrial fibrillation with rapid ventricular response: Plan Documented By: Skyler Sanchez MD 05/04/24 1311 Signed By: 05/04/[address] [facility]12-25-2024 Progress note Author Jesus Fraser [facility] Note Date/Time May 04, 2024 5:01pm [facility] [address] [place] [address] Neurology Progress Note Signed Patient: Juan Simon MR#: [id number] : 1955 Acct:[id number] Age/Sex: 68 / M Adm Date: 4 Loc: Room: [address] [place] [address] Type: ADM IN Attending Dr: Skyler Sanchez MD Copies to: ~ Date of Service: 05/04/2024 Exam Physical Exam Vital Signs: Temp Pulse Resp BP Pulse Ox O2 Del Method O2 Flow Rate 97.9 F 93 24 123/75 98 Nasal Cannula 2 05/04/24 12:00 05/04/24 16:00 05/04/24 16:00 05/04/24 16:00 05/04/24 16:00 05/04/24 16:00 05/04/24 16:00 Objective Vital Signs Vital Signs: Vital Signs - 24 hr 05/03/24 20:00 05/03/24 20:00 05/03/24 20:11 Temperature 97.6 F Pulse Rate 96 98 Respiratory Rate 26 H Blood Pressure 132/58 L 02 Sat by Pulse Oximetry 97 Oxygen Delivery Method Nasal Cannula Nasal Cannula Oxygen Flow Rate 2 2 05/03/24 21:00 05/03/24 22:00 05/03/24 23:00 Temperature Pulse Rate 96 93 93 Respiratory Rate 22 26 H 28 H Blood Pressure 105/59 L 106/59 L 116/59 L 02 Sat by Pulse Oximetry 97 91 L 91 L Oxygen Delivery Method Nasal Cannula Nasal Cannula Nasal Cannula Oxygen Flow Rate 2 3 4 05/04/24 00:00 05/04/24 00:22 05/04/24 01:00 Temperature 98.0 F Pulse Rate 98 98 Respiratory Rate 26 H 23 Blood Pressure 115/64 114/60 02 Sat by Pulse Oximetry 94 L 94 L Oxygen Delivery Method Nasal Cannula Nasal Cannula Nasal Cannula Oxygen Flow Rate 4 4 4 05/04/24 01:14 05/04/24 02:00 05/04/24 03:00 Temperature Pulse Rate 95 96 93 Respiratory Rate 24 24 Blood Pressure 110/68 118/68 02 Sat by Pulse Oximetry 99 96 Oxygen Delivery Method Nasal Cannula Nasal Cannula Oxygen Flow Rate 3 3 05/04/24 04:00 05/04/24 05:00 05/04/24 06:00 Temperature 97.5 F L Pulse Rate 87 98 92 Respiratory Rate 24 24 24 Blood Pressure 112/64 97/63 L 98/67 L 02 Sat by Pulse Oximetry 96 96 96 Oxygen Delivery Method Nasal Cannula Nasal Cannula Nasal Cannula Oxygen Flow Rate 3 3 2 05/04/24 07:00 05/04/24 08:00 05/04/24 08:00 Temperature 98.1 F Pulse Rate 104 H 102 H Respiratory Rate 24 26 H Blood Pressure 113/74 110/73 02 Sat by Pulse Oximetry 93 L 94 L Oxygen Delivery Method Nasal Cannula Nasal Cannula Nasal Cannula Oxygen Flow Rate 2 2 2 05/04/24 09:00 05/04/24 10:00 05/04/24 10:00 Temperature Pulse Rate 101 H 104 H Respiratory Rate 28 H 24 Blood Pressure 119/70 114/87 02 Sat by Pulse Oximetry 95 96 Oxygen Delivery Method Nasal Cannula Nasal Cannula Nasal Cannula Oxygen Flow Rate 2 2 2 05/04/24 11:00 05/04/24 11:56 05/04/24 12:00 Temperature 97.9 F Pulse Rate 95 92 93 Respiratory Rate 24 26 H Blood Pressure 122/72 111/60 02 Sat by Pulse Oximetry 96 96 Oxygen Delivery Method Nasal Cannula Nasal Cannula Oxygen Flow Rate 2 2 05/04/24 16:00 Temperature Pulse Rate 93 Respiratory Rate 24 Blood Pressure 123/75 02 Sat by Pulse Oximetry 98 Oxygen Delivery Method Nasal Cannula Oxygen Flow Rate 2 Labs 05/04/24 04:57 05/04/24 04:57 Assessment/Plan (1) Altered mental status: Qualifiers: Altered mental status type: delirium Qualified Code(s): R41.0 - Disorientation, unspecified Plan CONSULT REASON: AMS INTERIM: No new symptoms to report today. No significant overnight events. Still with acough. Not complaining of any significant headache today. EXAMINATION: In no distress. No deformities or trauma. Limbs seem well-perfused. No significant edema. Normal work of breathing. Visualized skin is generally intact and without lesions. Affect normal. Patient is slightly drowsy. Oriented to [facility] and 2023 but thinks it is May. Attention mildly impaired. I think speech is nondysarthric and fluency is acceptable. Pupils are equal and reactive. Ocular motility is full. No nystagmus. Facial sensation is normal. Hearing is normal. Facial strength is normal. Tongue is midline. Muscle bulk, tone, and strength are normal. No tremors. Light touch is intact. No ataxia in upper extremities. DATA REVIEW: -Head CT May 02, 2024 nonacute, shows chronic right mastoiditis and possible otitis -MRI brain September 22, 2023 without contrast looks unremarkable aside from some chronic age-related neurodegenerative changes -Blood cultures May 02, 2024 2 of 2 group B strep, urine culture with 20,000 colonies Enterococcus faecalis and strep group B ASSESSMENT: Septic encephalopathy with delirium (fluctuating alertness, some inattention, restless and fidgety). His family is noticing some fluency issues. Consider acute embolic ischemic event given the new onset atrial fibrillation. I do not think he has any type of intracranial infectious process. He is being investigated in the outpatient setting for progressive cognitive decline with concern for dementia. If he has an underlying neurodegenerative disorder that would put him at increased risk for encephalopathy/delirium. PLAN: 1. MRI brain with and without contrast (his spinal stimulator is MR-compatible) 2. Apixaban has been initiated for the atrial fibrillation 3. I stop to the home Depakote due to concern for interaction with his apixaban 4. I stop to the doxepin given his cardiac dysrhythmia Documented By: Jesus Fraser DO 05/04/241656 Signed By: <Electronically signed by Jesus Fraser DO> 05/04/24 1706 [facility] Work Phone: 1([phone]) 822-672712-25-2024 [place] [address] Neurology Progress Note Signed Patient: Juan Simon MR#: [id number] : 1955 Acct:[id number] Age/Sex: 68 / M Adm Date: 4 Loc: Room: [address] [place] [address] Type: ADM IN Attending Dr: Skyler Sanchez MD Copies to: ~ Date of Service: 05/04/2024 Exam Physical Exam Vital Signs: Temp Pulse Resp BP Pulse Ox O2 Del Method O2 Flow Rate 97.9 F 93 24 123/75 98 Nasal Cannula 2 05/04/24 12:00 05/04/24 16:00 05/04/24 16:00 05/04/24 16:00 05/04/24 16:00 05/04/24 16:00 05/04/24 16:00 Objective Vital Signs Vital Signs: Vital Signs - 24 hr 05/03/24 20:00 05/03/24 20:00 05/03/24 20:11 Temperature 97.6 F Pulse Rate 96 98 Respiratory Rate 26 H Blood Pressure 132/58 L 02 Sat by Pulse Oximetry 97 Oxygen Delivery Method Nasal Cannula Nasal Cannula Oxygen Flow Rate 2 2 05/03/24 21:00 05/03/24 22:00 05/03/24 23:00 Temperature Pulse Rate 96 93 93 Respiratory Rate 22 26 H 28 H Blood Pressure 105/59 L 106/59 L 116/59 L 02 Sat by Pulse Oximetry 97 91 L 91 L Oxygen Delivery Method Nasal Cannula Nasal Cannula Nasal Cannula Oxygen Flow Rate 2 3 4 05/04/24 00:00 05/04/24 00:22 05/04/24 01:00 Temperature 98.0 F Pulse Rate 98 98 Respiratory Rate 26 H 23 Blood Pressure 115/64 114/60 02 Sat by Pulse Oximetry 94 L 94 L Oxygen Delivery Method Nasal Cannula Nasal Cannula Nasal Cannula Oxygen Flow Rate 4 4 4 05/04/24 01:14 05/04/24 02:00 05/04/24 03:00 Temperature Pulse Rate 95 96 93 Respiratory Rate 24 24 Blood Pressure 110/68 118/68 02 Sat by Pulse Oximetry 99 96 Oxygen Delivery Method Nasal Cannula Nasal Cannula Oxygen Flow Rate 3 3 05/04/24 04:00 05/04/24 05:00 05/04/24 06:00 Temperature 97.5 F L Pulse Rate 87 98 92 Respiratory Rate 24 24 24 Blood Pressure 112/64 97/63 L 98/67 L 02 Sat by Pulse Oximetry 96 96 96 Oxygen Delivery Method Nasal Cannula Nasal Cannula Nasal Cannula Oxygen Flow Rate 3 3 2 05/04/24 07:00 05/04/24 08:00 05/04/24 08:00 Temperature 98.1 F Pulse Rate 104 H 102 H Respiratory Rate 24 26 H Blood Pressure 113/74 110/73 02 Sat by Pulse Oximetry 93 L 94 L Oxygen Delivery Method Nasal Cannula Nasal Cannula Nasal Cannula Oxygen Flow Rate 2 2 2 05/04/24 09:00 05/04/24 10:00 05/04/24 10:00 Temperature Pulse Rate 101 H 104 H Respiratory Rate 28 H 24 Blood Pressure 119/70 114/87 02 Sat by Pulse Oximetry 95 96 Oxygen Delivery Method Nasal Cannula Nasal Cannula Nasal Cannula Oxygen Flow Rate 2 2 2 05/04/24 11:00 05/04/24 11:56 05/04/24 12:00 Temperature 97.9 F Pulse Rate 95 92 93 Respiratory Rate 24 26 H Blood Pressure 122/72 111/60 02 Sat by Pulse Oximetry 96 96 Oxygen Delivery Method Nasal Cannula Nasal Cannula Oxygen Flow Rate 2 2 05/04/24 16:00 Temperature Pulse Rate 93 Respiratory Rate 24 Blood Pressure 123/75 02 Sat by Pulse Oximetry 98 Oxygen Delivery Method Nasal Cannula Oxygen Flow Rate 2 Labs 05/04/24 04:57 05/04/24 04:57 Assessment/Plan (1) Altered mental status: Qualifiers: Altered mental status type: delirium Qualified Code(s): R41.0 - Disorientation, unspecified Plan CONSULT REASON: AMS INTERIM: No new symptoms to report today. No significant overnight events. Still with acough. Not complaining of any significant headache today. EXAMINATION: In no distress. No deformities or trauma. Limbs seem well-perfused. No significant edema. Normal work of breathing. Visualized skin is generally intact and without lesions. Affect normal. Patient is slightly drowsy. Oriented to [facility] and 2023 but thinks it is May. Attention mildly impaired. I think speech is nondysarthric and fluency is acceptable. Pupils are equaland reactive. Ocular motility is full. No nystagmus. Facial sensation is normal. Hearing is normal.Facial strength is normal. Tongue is midline. Muscle bulk, tone, and strength are normal. No tremors. Light touch is intact. No ataxia in upper extremities. DATA REVIEW: -Head CT May 02, 2024 nonacute, shows chronic right mastoiditis and possible otitis -MRI brain September 22, 2023 without contrast looks unremarkable aside from some chronic age-related neurodegenerative changes -Blood cultures May 02, 2024 2 of 2 group B strep, urine culture with 20,000 colonies Enterococcus faecalis and strep group B ASSESSMENT: Septic encephalopathy with delirium (fluctuating alertness, some inattention, restless and fidgety). His family is noticing some fluency issues. Consider acute embolic ischemic event given the new onset atrial fibrillation. I do not think he has any type of intracranial infectious process. He is being investigated in the outpatient setting for progressive cognitive decline with concern for dementia. If he has an underlying neurodegenerative disorder that would put him at increased riskfor encephalopathy/delirium. PLAN: 1. MRI brain with and without contrast (his spinal stimulator is MR-compatible) 2. Apixaban has been initiated for the atrial fibrillation 3. I stop to the home Depakote due to concern for interaction with his apixaban 4. I stop to the doxepin given his cardiac dysrhythmia Documented By: Jesus Fraser DO 05/04/241656 Signed By: 05/04/[address] [facility]12-25-2024 Progress note Author Juanito Solis [facility] Note Date/Time May 04, 2024 10:57am [facility] [address] [place] [address] Cardiology Progress Note Signed Patient: Juan Simon MR#: [id number] : 1955 Acct:[id number] Age/Sex: 68 / M Adm Date: 4 Loc: Room: [address] [place] [address] Type: ADM IN Attending Dr: Skyler Sanchez MD Copies to: ~ Date of Service: 05/04/2024 Subjective Principal diagnosis: Sepsis, paroxysmal atrial fibrillation Interval history: Mr. Simon is clinically improved this morning. He is resting comfortably onmy evaluation. On arousal his mental status does appear to be more clear. He remains in atrial fibrillation with ambient rates in the 95 to 100 bpm range. From a cardiovascular standpoint no new complaints or issues. Exam Physical Exam Vital Signs: Temp Pulse Resp BP Pulse Ox O2 Del Method O2 Flow Rate 97.5 F L 104 H 24 113/74 93 L Nasal Cannula 2 05/04/24 04:00 05/04/24 07:00 05/04/24 07:00 05/04/24 07:00 05/04/24 07:00 05/04/24 08:00 05/04/24 08:00 Const General: no acute distress and ill appearing Nutritional Appearance: obese Orientation: alert and awake HEENT Mouth: moist mucous membranes Teeth and gingiva: fair dentition Eyes Conjunctivae: conjunctivae normal Sclera: sclerae normal Pupils: PERRL and normal by confrontation EOM: EOM intact bilaterally Direct ophthalmoscopy: no photophobia Neck Neck: no lymphadenopathy and supple Neck mass: No Thyroid: thyroid normal Carotids: normal carotid upstroke Lymphatic: no lymphadenopathy noted Resp Effort & Inspection: normal respiratory effort, able to speak in complete sentences and symmetric chest movement Auscultation: rhonchi and wheezes Cardio Jugular venous pressure: no JVD Palpation: normal PMI Rate: regular rate Rhythm: abnormal rhythm Heart Sounds: S1 normal, S2 normal and murmur Pulses: radial pulses present and femoral pulses present GI Palpation: soft and no hepatosplenomegaly Skin General: no rashes or lesions noted Neuro Cranial Nerves: CN's II-XII intact bilaterally Motor: muscle tone normal throughout Sensory Exam: no sensory deficits noted Psych Insight: fair Judgment: fair Objective Labs 05/04/24 04:57 05/04/24 04:57 Labs: Laboratory Results - last 24 hr 05/04/24 04:57 Corrected WBC 12.0 H RBC 3.69 L Hgb 11.9 L Hct 35.7 L MCV 96.9 MCH 32.1 MCHC 33.2 RDW 15.3 H Plt Count 155 MPV 7.3 PHA Creatinine Clear 91.55 Sodium 134 L Potassium 4.0 Chloride 105 Carbon Dioxide 24.0 Anion Gap 9.0 BUN 20 Creatinine 0.80 Est GFR (CKD-EPI) > 60.0 Glucose 104 H Calcium 7.8 L A&P - Cardiology (1) Atrial fibrillation with rapid ventricular response: Assessment/Problem Details: Patient remains in what is likely paroxysmal atrial fibrillation in the setting of elevated catecholamine state of sepsis. Patient's hemodynamic instability with administration of IV beta-blockade is likely secondary to presence of peripheral vasodilatation in the setting of early septic physiology. See no evidence of cardiogenic shock or malperfusion. A-fib rates now under reasonablecontrol with ambient rate around 100. Plan: 1. Initiate oral digoxin 0.125 mg p.o. every morning 2. Maintain and uptitrate oral beta-blockade: Metoprolol tartrate to 25 mg mg 3times daily 3. Maintain DOAC anticoagulation: Apixaban 5 mg twice daily 4. Recommend aggressive medical management and treatment of septic physiology 5. If the patient does not convert to normal sinus rhythm on resolution of sepsis along with medical therapy will plan for 30-day minimum anticoagulation with apixaban 5 mg twice daily and from there we will plan on cardioversion in the outpatient setting. Code(s): I48.91 - Unspecified atrial fibrillation Plan Thank you very much for this kind consultation and for allowing me to dissipate in the care of this very pleasant patient and his family. Documented By: Juanito Solis MD 05/04/241054 Signed By: <Electronically signed by Juanito Solis MD> 05/04/241056 [facility] Work Phone: 1(134) 803-299312-25-2024 Progress note Author Jimmy Matias [facility] Note Date/Time May 04, 2024 9:32am [facility] [address] [place] [address] Pulmonology Progress Note Signed Patient: Juan Simon MR#: [id number] : 1955 Acct:[id number] Age/Sex: 68 / M Adm Date: 4 Loc: Room: [address] [place] [address] Type: ADM IN Attending Dr: Skyler Sanchez MD Copies to: ~ Date of Service: 05/04/2024 Exam Physical Exam Vital Signs: Temp Pulse Resp BP Pulse Ox O2 Del Method O2 Flow Rate 97.5 F L 104 H 24 113/74 93 L Nasal Cannula 2 05/04/24 04:00 05/04/24 07:00 05/04/24 07:00 05/04/24 07:00 05/04/24 07:00 05/04/24 08:00 05/04/24 08:00 Const General: cooperative Orientation: alert, awake, not oriented x3, oriented to person, oriented to place and not oriented to time HEENT Head: normal to inspection Ears: hearing grossly normal bilaterally and external ears normal Nose: external nose normal Face and sinus: normal facial exam Eyes Sclera: sclerae normal Neck Neck: normal visual inspection Resp Effort & Inspection: normal respiratory effort Auscultation: clear to auscultation bilaterally, diminished lung sounds, no rales, no rhonchi and no wheezes Cardio Rate: regular rate Rhythm: regular rhythm Heart Sounds: S1 normal, S2 normal and no murmurs GI Inspection: normal to inspection Palpation: soft and nontender General: deferred Skin General: no rashes or lesions noted (Warm and dry) Extrem General: no pedal edema Objective Intake and Output I&O - Last 24 Hours: Intake & Output 05/03/24 05/04/24 05/04/24 23:59 07:59 15:59 Intake Total 550 / 550 Output Total 750 / 1500 600 / 600 Balance -750 / -1200 -50 / -50 Weight 96 kg Labs 05/04/24 04:57 05/04/24 04:57 Microbiology Micro: Microbiology 3 05/02/24 10:20 Blood Culture - Preliminary Blood - Left Hand Strep agalactiae - (group b) 05/02/24 10:15 Blood Culture - Preliminary Blood - Left Antecubital Strep agalactiae - (group b) Bacterial ID (NA Multiplex Assay) - Final 05/02/24 10:45 Urine Culture - Preliminary Urine - Clean-Voided Midstream Enterococcus faecalis Strep agalactiae - (group b) Imaging and Cardiology CT scan - abdomen: Additional comments: Date of Service: 05/03/24 CT/CT abdomen pelvis w con: eval for possible source of bacteremia CT ABDOMEN AND PELVIS WITH INTRAVENOUS CONTRAST: CLINICAL HISTORY: Bacteremia COMPARISON: None TECHNIQUE: Spiral images were obtained through the abdomen and pelvis followingthe administration of intravenous contrast. This CT exam was performed using one or more following dose reduction techniques: Automated exposure control, adjustment of the mA and/or kV according to patient size, or use of iterative reconstruction technique. FINDINGS: Lung Bases: [Small bilateral pleural effusions with compressive atelectasis.] Organs:Gallbladder has been removed. Liver pancreas spleen and adrenal glands appear unremarkable. 3 mm stone involving the left renal pelvis without hydronephrosis. Right kidney appears unremarkable. Abdominal and appears normal in caliber.[ GI: Stomach is grossly unremarkable. Small bowel appears nondilated. No acute colonic abnormality.[ Pelvis:[Urinary bladder is grossly unremarkable. Prostate gland normal in size.] Peritoneum/Retroperitoneum:No free air or free fluid or lymphadenopathy.[ Abd wall/Bones:Bilateral fat filled inguinal hernias. Osseous structures demonstrate degenerative change. Neurostimulator device is in place.[ CT/CT abdomen pelvis w con IMPRESSION: No acute intra-abdominal process. Small bilateral pleural effusions. Left nephrolithiasis. Assessment/Plan Assessment/Plan (1) Sepsis: (2) Atrial fibrillation with rapid ventricular response: (3) Urinary tract infection: (4) Bacteremia due to Streptococcus: Plan Hospital day #1 for patient with presumed urinary tract infection with group B strep bacteremia and sepsis * Patient is off norepinephrine and continues on ceftriaxone 2 g daily after discussion with infectious disease [employer] consultant * He is oriented to person and place but does not know year readily * Continue antibiotics and supportive care with follow-up blood cultures pending Documented By: Jimmy Matias MD 4 0923 Signed By: <Electronically signed by MD Jimmy Matias> 05/04/24 0932 [facility] Work Phone: 1([phone]) 914-671412-25-2024 [place] [address] Cardiology Progress Note Signed Patient: Juan Simon MR#: [id number] : 1955 Acct:[id number] Age/Sex: 68 / M Adm Date: 4 Loc: Room: [address] [place] [address] Type: ADM IN Attending Dr: Skyler Sanchez MD Copies to: ~ Date of Service: 05/04/2024 Subjective Principal diagnosis: Sepsis, paroxysmal atrial fibrillation Interval history: Mr. Simon is clinically improved this morning. He is resting comfortably onmy evaluation. On arousal his mental status does appear to be more clear. He remains in atrial fibrillation with ambientrates in the 95 to 100 bpm range. From a cardiovascular standpoint no new complaints or issues. Exam Physical Exam Vital Signs: Temp Pulse Resp BP Pulse Ox O2 Del Method O2 Flow Rate 97.5 F L 104 H 24 113/74 93 L Nasal Cannula 2 05/04/24 04:00 05/04/24 07:00 05/04/24 07:00 05/04/24 07:00 05/04/24 07:00 05/04/24 08:00 05/04/24 08:00 Const General: no acute distress and ill appearing Nutritional Appearance: obese Orientation: alert and awake HEENT Mouth: moist mucous membranes Teeth and gingiva: fair dentition Eyes Conjunctivae: conjunctivae normal Sclera: sclerae normal Pupils: PERRL and normal by confrontation EOM: EOM intact bilaterally Direct ophthalmoscopy: no photophobia Neck Neck: no lymphadenopathy and supple Neck mass: No Thyroid: thyroid normal Carotids: normal carotid upstroke Lymphatic: no lymphadenopathy noted Resp Effort & Inspection: normal respiratory effort, able to speak in complete sentences and symmetric chest movement Auscultation: rhonchi and wheezes Cardio Jugular venous pressure: no JVD Palpation: normal PMI Rate: regular rate Rhythm: abnormal rhythm Heart Sounds: S1 normal, S2 normal and murmur Pulses: radial pulses present and femoral pulses present GI Palpation: soft and no hepatosplenomegaly Skin General: no rashes or lesions noted Neuro Cranial Nerves: CN's II-XII intact bilaterally Motor: muscle tone normal throughout Sensory Exam: no sensory deficits noted Psych Insight: fair Judgment: fair Objective Labs 05/04/24 04:57 05/04/24 04:57 Labs: Laboratory Results - last 24 hr 05/04/24 04:57 Corrected WBC 12.0 H RBC 3.69 L Hgb 11.9 L Hct 35.7 L MCV 96.9 MCH 32.1 MCHC 33.2 RDW 15.3 H Plt Count 155 MPV 7.3 PHA Creatinine Clear 91.55 Sodium 134 L Potassium 4.0 Chloride 105 Carbon Dioxide 24.0 Anion Gap 9.0 BUN 20 Creatinine 0.80 Est GFR (CKD-EPI) > 60.0 Glucose 104 H Calcium 7.8 L A&P - Cardiology (1) Atrial fibrillation with rapid ventricular response: Assessment/Problem Details: Patient remains in what is likely paroxysmal atrial fibrillation in the setting of elevated catecholamine state of sepsis. Patient's hemodynamic instability with administration of IV beta-blockade islikely secondary to presence of peripheral vasodilatation in the setting of early septic physiology. See no evidence of cardiogenic shock or malperfusion. A-fib rates now under reasonablecontrol withambient rate around 100. Plan: 1. Initiate oral digoxin 0.125 mg p.o. every morning 2. Maintain and uptitrate oral beta-blockade: Metoprolol tartrate to 25 mg mg 3times daily 3. Maintain DOAC anticoagulation: Apixaban 5 mg twice daily 4. Recommend aggressive medical management and treatment of septic physiology 5. If the patient does not convert to normal sinus rhythm on resolution of sepsis along with medical therapy will plan for 30-day minimum anticoagulation with apixaban 5 mg twice daily and from therewe will plan on cardioversion in the outpatient setting. Code(s): I48.91 - Unspecified atrial fibrillation Plan Thank you very much for this kind consultation and for allowing me to dissipate in the care of thisvery pleasant patient and his family. Documented By: Juanito Solis MD 05/04/241054 Signed By: 05/04/[address] [facility]12-25-2024 [place] [address] Pulmonology Progress Note Signed Patient: Juan Simon MR#: [id number] : 1955 Acct:[id number] Age/Sex: 68 / M Adm Date: 4 Loc: Room: [address] [place] [address] Type: ADM IN Attending Dr: Skyler Sanchez MD Copies to: ~ Date of Service: 05/04/2024 Exam Physical Exam Vital Signs: Temp Pulse Resp BP Pulse Ox O2 Del Method O2 Flow Rate 97.5 F L 104 H 24 113/74 93 L Nasal Cannula 2 05/04/24 04:00 05/04/24 07:00 05/04/24 07:00 05/04/24 07:00 05/04/24 07:00 05/04/24 08:00 05/04/24 08:00 Const General: cooperative Orientation: alert, awake, not oriented x3, oriented to person, oriented to place and not oriented to time HEENT Head: normal to inspection Ears: hearing grossly normal bilaterally and external ears normal Nose: external nose normal Face and sinus: normal facial exam Eyes Sclera: sclerae normal Neck Neck: normal visual inspection Resp Effort & Inspection: normal respiratory effort Auscultation: clear to auscultation bilaterally, diminished lung sounds, no rales, no rhonchi and no wheezes Cardio Rate: regular rate Rhythm: regular rhythm Heart Sounds: S1 normal, S2 normal and no murmurs GI Inspection: normal to inspection Palpation: soft and nontender General: deferred Skin General: no rashes or lesions noted (Warm and dry) Extrem General: no pedal edema Objective Intake and Output I&O - Last 24 Hours: Intake & Output 05/03/24 05/04/24 05/04/24 23:59 07:59 15:59 Intake Total 550 / 550 Output Total 750 / 1500 600 / 600 Balance -750 / -1200 -50 / -50 Weight 96 kg Labs 05/04/24 04:57 05/04/24 04:57 Microbiology Micro: Microbiology 3 05/02/24 10:20 Blood Culture - Preliminary Blood - Left Hand Strep agalactiae - (group b) 05/02/24 10:15 Blood Culture - Preliminary Blood - Left Antecubital Strep agalactiae - (group b) Bacterial ID (NA Multiplex Assay) - Final 05/02/24 10:45 Urine Culture - Preliminary Urine - Clean-Voided Midstream Enterococcus faecalis Strep agalactiae - (group b) Imaging and Cardiology CT scan - abdomen: Additional comments: Date of Service: 05/03/24 CT/CT abdomen pelvis w con: eval for possible source of bacteremia CT ABDOMEN AND PELVIS WITH INTRAVENOUS CONTRAST: CLINICAL HISTORY: Bacteremia COMPARISON: None TECHNIQUE: Spiral images were obtained through the abdomen and pelvis followingthe administration of intravenous contrast. This CT exam was performed using one or more following dose reduction techniques: Automated exposure control, adjustment of the mA and/or kV according to patient size, or use of iterative reconstruction technique. FINDINGS: Lung Bases: [Small bilateral pleural effusions with compressive atelectasis.] Organs:Gallbladder has been removed. Liver pancreas spleen and adrenal glands appear unremarkable. 3 mm stone involving the left renal pelvis without hydronephrosis. Right kidney appears unremarkable. Abdominal and appears normal in caliber.[ GI: Stomach is grossly unremarkable. Small bowel appears nondilated. No acute colonic abnormality.[ Pelvis:[Urinary bladder is grossly unremarkable. Prostate gland normal in size.] Peritoneum/Retroperitoneum:No free air or free fluid or lymphadenopathy.[ Abd wall/Bones:Bilateral fat filled inguinal hernias. Osseous structures demonstrate degenerative change. Neurostimulator device is in place.[ CT/CT abdomen pelvis w con IMPRESSION: No acute intra-abdominal process. Small bilateral pleural effusions. Left nephrolithiasis. Assessment/Plan Assessment/Plan (1) Sepsis: (2) Atrial fibrillation with rapid ventricular response: (3) Urinary tract infection: (4) Bacteremia due to Streptococcus: Plan Hospital day #1 for patient with presumed urinary tract infection with group B strep bacteremia andsepsis * Patient is off norepinephrine and continues on ceftriaxone 2 g daily after discussion with infectious disease [employer] consultant * He is oriented to person and place but does not know year readily * Continue antibiotics and supportive care with follow-up blood cultures pending Documented By: Jimmy Matias MD 08 1723 Signed By: 05/04/[address] [facility]12-24-2024 Consult note Author Jesus Fraser [facility] Note Date/Time May 03, 2024 6:13pm [facility] [address] [place] [address] Neurology Consult Note Signed Patient: Juan Simon MR#: [id number] : 1955 Acct:[id number] Age/Sex: 68 / M Adm Date: 4 Loc: Room: [address] [place] [address] Type: ADM IN Attending Dr: Skyler Sanchez MD Copies to: DO Tatiana Newton Jr, DO Skyler Sanchez MD~ HPI Consult Date: 05/03/24 Scallop Raker: Jesus Fraser DO [facility] Medical History Back pain with history of spinal surgery Back injuries T-cell lymphoma Remission. FHx: cholecystectomy Celiac disease Surgical History H/O laminectomy Family History Father Grandparent Legacy FamHx Relation: Maternal Grand Father Family history of colon cancer Legacy FamHx Relation: Maternal Grand Father Grandparent Legacy FamHx Relation: Maternal Grand Mother Grandparent Legacy FamHx Relation: Paternal Grand Father Grandparent Legacy FamHx Relation: Paternal Grand Mother Mother Cancer Legacy FamHx Problem: Diagnosed with Cancer Family history of pancreatic cancer Social History Smoking Status: Never smoker Substance Use Type: None Meds Medications and Allergies Allergies gluten Allergy (Unknown, Verified 05/02/24 09:54) Unknown Reaction Home Medications albuterol sulfate 2.5 mg/3 mL (0.083 %) solution for nebulization 2.5 mg inhalation Q2H PRN shortness of breath or wheezing 02/11/17 [History Confirmed 01/10/24] albuterol sulfate 90 mcg/actuation aerosol inhaler (Proventil HFA) 2 puff inhalation Q2H PRN shortness of breath or wheezing 02/11/17 [History Confirmed 05/02/24] atenolol 25 mg tablet 25 mg PO DAILY 02/11/17 [History Confirmed 05/02/24] cyclobenzaprine 10 mg tablet 10 mg PO TID 02/11/17 [History Confirmed 05/02/24] divalproex 250 mg tablet,delayed release 500 mg PO HS 02/11/17 [History Confirmed 05/02/24] fluticasone 500 mcg-salmeterol 50 mcg/dose blistr powdr for inhalation 1 inh inhalation BID 02/11/17 [History Confirmed 05/02/24] indomethacin 25 mg capsule 25 mg PO .QD 02/11/17 [History Confirmed 01/10/24] montelukast 10 mg tablet 10 mg PO HS 02/11/17 [History Confirmed 05/02/24] celecoxib 200 mg capsule 200 mg PO DAILY 12/27/23 [History Confirmed 05/02/24] doxepin 25 mg capsule 25 mg PO HS 12/27/23 [History Confirmed 05/02/24] duloxetine 30 mg capsule,delayed release 30 mg PO BID 12/27/23 [History Confirmed 05/02/24] meclizine 25 mg tablet 25 mg PO TID PRN dizziness 12/27/23 [History Confirmed 05/02/24] phentermine 37.5 mg tablet 37.5 mg PO DAILY 12/27/23 [History Confirmed 05/02/24] nystatin 100,000 unit/mL oral suspension 400,000 unit (4 mL) PO QID 7 days #112 mL 12/29/23 [Rx Confirmed 05/02/24] Exam Physical Exam Vital Signs: Temp Pulse Resp BP Pulse Ox O2 Del Method O2 Flow Rate 98.0 F 98 18 90/57 L 96 Nasal Cannula 2 05/03/24 12:00 05/03/24 14:01 05/03/24 13:00 05/03/24 13:00 05/03/24 13:00 05/03/24 13:00 05/03/24 13:00 Results - Neuro Laboratory Findings 05/03/24 04:45 05/03/24 04:45 Lab Results: Ammonia 24 umol/L (11-35) 05/02/24 10:40 Diagnostic Findings Imaging/Impressions: ITS Impressions Chest X-Ray 05/02/24 10:20 IMPRESSION: No acute cardiopulmonary pathology. Additional chronic findings are redemonstrated as above. Impression dictated by: Xander Solano M.D.05/02/2024 2:25 PM Dictation Location: [place] [address] 05/02/24 10:20 IMPRESSION: NO ACUTE INTRACRANIAL ABNORMALITY. CONTINUED CHRONIC RIGHT MASTOIDITIS AND POSSIBLE OTITIS. Impression dictated by: Dorothy Burkett M.D.05/02/2024 2:42 PM Dictation Location: [place] [address] Chest X-Ray 05/02/24 15:18 IMPRESSION: RIGHT-SIDED IJ LINE TIP AT THE BRACHIOCEPHALIC/SVC JUNCTION. NO PNEUMOTHORAX. Impression dictated by: Triston Raphael Jr., D.O.05/02/2024 3:33 PM Dictation Location: [facility]-18 Assessment/Plan (1) Altered mental status: Qualifiers: Altered mental status type: delirium Qualified Code(s): R41.0 - Disorientation, unspecified Plan CONSULT REASON: AMS HPI: 68-year-old man. Came to the emergency department May 02, 2024. This pastFriday he exhibited a cough and then Thursday he started having confusion and fevers. Moving things around the house purposelessly, walking out of rooms without clothing on, acting strange. Febrile 103, heart rate 146, blood pressure 111/74 and 90/65 initially. His family says that he has been dealing with progressive cognitive issues and his word finding difficulty has been growing more noticeable. His daughter thatis here does not see him all the time and she has noticed that this time around his speech seems noticeably worse than it was before. I guess in March 2024 he was evaluated at [facility] by Dr. Jimmy Castle from neurology for frequent falls, headaches, tremor, and memory loss, and was found to have mild cognitive impairment. Frequent falls were attributed to suspected orthostatic hypotension among other reasons. He has been having a cough. He has been complaining of a headache. He has headaches chronically. He has followed with Dr. Dahl in the outpatient setting for sleep purposes and headache purposes. EXAMINATION: In no distress. No deformities or trauma. Limbs seem well-perfused. No significant edema. Normal work of breathing. Visualized skin is generally intact and without lesions. Affect normal. Patient is slightly drowsy. Oriented to [facility] and [facility] but thinks it is 2004and then 2018. Attention normal. I think speech is nondysarthric and fluency is acceptable. Pupils are equal and reactive. Ocular motility is full. No nystagmus. Facial sensation is normal. Hearing is normal. Facial strength is normal. Tongue is midline. Muscle bulk, tone, and strength are normal. No tremors. Light touch is intact. No ataxia in upper extremities. DATA REVIEW: -Sodium 135 then 136, BUN 26, calcium 7.3, magnesium 1.8, total bilirubin 1.5, ammonia 24, CK3 28, troponin 107 then 311, TSH 1.87, INR 1.3, WBC 11.8 then 11.4, platelets 144, hemoglobin 14 then 11, urinalysis appears infected, -Head CT May 02, 2024 nonacute, shows chronic right mastoiditis and possible otitis -MRI brain September 22, 2023 without contrast looks unremarkable aside from some chronic age-related neurodegenerative changes -Blood cultures May 02, 2024 2 of 2 group B strep, urine culture with 20,000 colonies Enterococcus faecalis and strep group B ASSESSMENT: Septic encephalopathy with delirium (fluctuating alertness, some inattention, restless and fidgety). His family is noticing some fluency issues. Consider acute embolic ischemic event given the new onset atrial fibrillation. I do not think he has any type of intracranial infectious process. He is being investigated in the outpatient setting for progressive cognitive decline with concern for dementia. If he has an underlying neurodegenerative disorder that would put him at increased risk for encephalopathy/delirium. PLAN: 1. MRI brain with and without contrast (his spinal stimulator is MR-compatible) 2. Apixaban has been initiated for the atrial fibrillation 3. I am stopping the home Depakote due to concern for interaction with his apixaban 4. I am stopping the doxepin given his cardiac dysrhythmia Documented By: Jesus Fraser DO 05/03/24 1608 Signed By: <Electronically signed by Jesus Fraser DO> 05/03/24 1810 [facility] Work Phone: 1(465) 219-490112-24-2024 Radiology [facility] [place] [address] [place] [address] CT Scan Report Signed Patient: Juan Simon MR#: [id number] : 1955 Acct:[id number] Age/Sex: 68 / M ADM Date: 4 Loc: Room: [address] [place] [address] Type: ADM IN Attending Dr: Skyler Sanchez MD Copies to: MD Moris Fisher MD~ Ordering Provider: Moris Younger MD Date of Service: 05/03/24 CT/CT abdomen pelvis w con: eval for possible source of bacteremia CT ABDOMEN AND PELVIS WITH INTRAVENOUS CONTRAST: CLINICAL HISTORY: Bacteremia COMPARISON: None TECHNIQUE: Spiral images were obtained through the abdomen and pelvis followingthe administration of intravenous contrast. This CT exam was performed using one or more following dose reduction techniques: Automated exposure control, adjustment of the mA and/or kV according to patient size, or use of iterative reconstruction technique. FINDINGS: Lung Bases: [Small bilateral pleural effusions with compressive atelectasis.] Organs:Gallbladder has been removed. Liver pancreas spleen and adrenal glands appear unremarkable. 3 mm stone involving the left renal pelvis without hydronephrosis. Right kidney appears unremarkable. Abdominal and appears normal in caliber.[ GI: Stomach is grossly unremarkable. Small bowel appears nondilated. No acute colonic abnormality.[ Pelvis:[Urinary bladder is grossly unremarkable. Prostate gland normal in size.] Peritoneum/Retroperitoneum:No free air or free fluid or lymphadenopathy.[ Abd wall/Bones:Bilateral fat filled inguinal hernias. Osseous structures demonstrate degenerative change. Neurostimulator device is in place.[ CT/CT abdomen pelvis w con IMPRESSION: No acute intra-abdominal process. Small bilateral pleural effusions. Left nephrolithiasis. Impression dictated by: Triston Raphael Jr., D.OHaley05/03/2024 6:32 PM Dictation Location: [facility]18 Transcribed By: MERCEDES 05/03/241831 Dictated By: Triston Raphael Jr, DO 05/03/241830 Signed By: 05/03/241831 [facility]12-24-2024 [place] [id number] Neurology Consult Note Signed Patient: Juan Simon MR#: [id number] : 1955 Acct:[id number] Age/Sex: 68 / M Adm Date: 4 Loc: Room: [address] [place] [address] Type: ADM IN Attending Dr: Skyler Sanchez MD Copies to: DO Tatiana Newton Jr, DO Marwan Wassouf, MD~ HPI Consult Date: 05/03/24 Scallop Raker: Jesus Fraser DO [facility] Medical History Back pain with history of spinal surgery Back injuries T-cell lymphoma Remission. FHx: cholecystectomy Celiac disease Surgical History H/O laminectomy Family History Father Grandparent Legacy FamHx Relation: Maternal Grand Father Family history of colon cancer Legacy FamHx Relation: Maternal Grand Father Grandparent Legacy FamHx Relation: Maternal Grand Mother Grandparent Legacy FamHx Relation: Paternal Grand Father Grandparent Legacy FamHx Relation: Paternal Grand Mother Mother Cancer Legacy FamHx Problem: Diagnosed with Cancer Family history of pancreatic cancer Social History Smoking Status: Never smoker Substance Use Type: None Meds Medications and Allergies Allergies gluten Allergy (Unknown, Verified 05/02/24 09:54) Unknown Reaction Home Medications albuterol sulfate 2.5 mg/3 mL (0.083 %) solution for nebulization 2.5 mg inhalation Q2H PRN shortness of breath or wheezing 02/11/17 [History Confirmed 01/10/24] albuterol sulfate 90 mcg/actuation aerosol inhaler (Proventil HFA) 2 puff inhalation Q2H PRN shortness of breath or wheezing 02/11/17 [History Confirmed 05/02/24] atenolol 25 mg tablet 25 mg PO DAILY 02/11/17 [History Confirmed 05/02/24] cyclobenzaprine 10 mg tablet 10 mg PO TID 02/11/17 [History Confirmed 05/02/24] divalproex 250 mg tablet,delayed release 500 mg PO HS 02/11/17 [History Confirmed 05/02/24] fluticasone 500 mcg-salmeterol 50 mcg/dose blistr powdr for inhalation 1 inh inhalation BID 02/11/17 [History Confirmed 05/02/24] indomethacin 25 mg capsule 25 mg PO .QD 02/11/17 [History Confirmed 01/10/24] montelukast 10 mg tablet 10 mg PO HS 02/11/17 [History Confirmed 05/02/24] celecoxib 200 mg capsule 200 mg PO DAILY 12/27/23 [History Confirmed 05/02/24] doxepin 25 mg capsule 25 mg PO HS 12/27/23 [History Confirmed 05/02/24] duloxetine 30 mg capsule,delayed release 30 mg PO BID 12/27/23 [History Confirmed 05/02/24] meclizine 25 mg tablet 25 mg PO TID PRN dizziness 12/27/23 [History Confirmed 05/02/24] phentermine 37.5 mg tablet 37.5 mg PO DAILY 12/27/23 [History Confirmed 05/02/24] nystatin 100,000 unit/mL oral suspension 400,000 unit (4 mL) PO QID 7 days #112 mL 12/29/23 [Rx Confirmed 05/02/24] Exam Physical Exam Vital Signs: Temp Pulse Resp BP Pulse Ox O2 Del Method O2 Flow Rate 98.0 F 98 18 90/57 L 96 Nasal Cannula 2 05/03/24 12:00 05/03/24 14:01 05/03/24 13:00 05/03/24 13:00 05/03/24 13:00 05/03/24 13:00 05/03/24 13:00 Results - Neuro Laboratory Findings 05/03/24 04:45 05/03/24 04:45 Lab Results: Ammonia 24 umol/L (11-35) 05/02/24 10:40 Diagnostic Findings Imaging/Impressions: ITS Impressions Chest X-Ray 05/02/24 10:20 IMPRESSION: No acute cardiopulmonary pathology. Additional chronic findings are redemonstrated as above. Impression dictated by: Xander Solano M.D.05/02/2024 2:25 PM Dictation Location: [facility]--[address] 05/02/24 10:20 IMPRESSION: NO ACUTE INTRACRANIAL ABNORMALITY. CONTINUED CHRONIC RIGHT MASTOIDITIS AND POSSIBLE OTITIS. Impression dictated by: Dorothy Burkett M.D.05/02/2024 2:42 PM Dictation Location: [facility]-23 Chest X-Ray 05/02/24 15:18 IMPRESSION: RIGHT-SIDED IJ LINE TIP AT THE BRACHIOCEPHALIC/SVC JUNCTION. NO PNEUMOTHORAX. Impression dictated by: Triston Raphael Jr., D.O.05/02/2024 3:33 PM Dictation Location: [facility]18 Assessment/Plan (1) Altered mental status: Qualifiers: Altered mental status type: delirium Qualified Code(s): R41.0 - Disorientation, unspecified Plan CONSULT REASON: AMS HPI: 68-year-old man. Came to the emergency department May 02, 2024. This pastFriday he exhibited acough and then Thursday he started having confusion and fevers. Moving things around the house purposelessly, walking out of rooms without clothing on, acting strange. Febrile 103, heart rate 146, blood pressure 111/74 and 90/65 initially. His family says that he has been dealing with progressive cognitive issues and his word finding difficulty has been growing more noticeable. His daughter thatis here does not see him all the time andshe has noticed that this time around his speech seems noticeably worse than it was before. I guessin March 2024 he was evaluated at [facility] by Dr. Jimmy Castle from neurology forfrequent falls, headaches, tremor, and memory loss, and was found to have mild cognitive impairment. Frequent falls were attributed to suspected orthostatic hypotension among other reasons. He has been having a cough. He has been complaining of a headache. He has headaches chronically. Hehas followed with Dr. Dahl in the outpatient setting for sleep purposes and headache purposes. EXAMINATION: In no distress. No deformities or trauma. Limbs seem well-perfused. No significant edema. Normal work of breathing. Visualized skin is generally intact and without lesions. Affect normal. Patient is slightly drowsy. Oriented to [facility] but thinks it is 2004and2018. Attention normal. I think speech is nondysarthric and fluency is acceptable. Pupils are equal and reactive. Ocular motility is full. No nystagmus. Facial sensation is normal. Hearing is normal. Facial strength is normal. Tongue is midline. Muscle bulk, tone, and strength are normal. No tr emors. Light touch is intact. No ataxia in upper extremities. DATA REVIEW: -Sodium 135 then 136, BUN 26, calcium 7.3, magnesium 1.8, total bilirubin 1.5, ammonia 24, CK3 28, troponin 107 then 311, TSH 1.87, INR 1.3, WBC 11.8 then 11.4, platelets 144, hemoglobin 14 then 11, urinalysis appears infected, -Head CT May 02, 2024 nonacute, shows chronic right mastoiditis and possible otitis -MRI brain September 22, 2023 without contrast looks unremarkable aside from some chronic age-related neurodegenerative changes -Blood cultures May 02, 2024 2 of 2 group B strep, urine culture with 20,000 colonies Enterococcus faecalis and strep group B ASSESSMENT: Septic encephalopathy with delirium (fluctuating alertness, some inattention, restless and fidgety). His family is noticing some fluency issues. Consider acute embolic ischemic event given the new onset atrial fibrillation. I do not think he has any type of intracranial infectious process. He is being investigated in the outpatient setting for progressive cognitive decline with concern for dementia. If he has an underlying neurodegenerative disorder that would put him at increased riskfor encephalopathy/delirium. PLAN: 1. MRI brain with and without contrast (his spinal stimulator is MR-compatible) 2. Apixaban has been initiated for the atrial fibrillation 3. I am stopping the home Depakote due to concern for interaction with his apixaban 4. I am stopping the doxepin given his cardiac dysrhythmia Documented By: Jesus Fraser DO 05/03/24 1608 Signed By: 05/03/[address] [facility]12-24-2024 Consult note Author Juanito Solis [facility] Note Date/Time May 03, 2024 1:27pm [facility] [address] [place] [address] Cardiology Consult Note Signed Patient: Juan Simon MR#: [id number] : 1955 Acct:[id number] Age/Sex: 68 / M Adm Date: 4 Loc: Room: [address] [place] [address] Type: ADM IN Attending Dr: Skyler Sanchez MD Copies to: Tatiana Benson Jr, MD Juanito Grady MD~ Cardiology HPI History of Present Illness Consult Date: 05/03/24 Reason for Consult: Atrial fibrillation HPI: Mr. Simon is a 68 year old male with a reported history of atrial fibrillation in the past (patient states he has been told at some point that he had atrial fibrillation but is not on medical therapy nor anticoagulation at home for such and he is not sure of the diagnostic details) who was admitted to the ICU through the emergency department early this morning after his brought him to the ER for mental status changes and productive cough. In the patient's evaluation blood and urine cultures have both been positive although for different organisms. On initial presentation in the emergency department the patient was found to be in atrial fibrillation with ventricular sponsor in the 150s. He was apparently initially tried to be put under rate control with IV metoprolol which caused him to be markedly hypotensive to the point where IV pressor support was necessary. Patient was admitted to the ICU and since has been treated for his septic physiology. He remains in atrial fibrillation now with ambient rates 95 to 105 bpm. Given the atrial fibrillation I am now consulted for further cardiac evaluation and management. Currently the patient denies any symptoms from a cardiovascular standpoint. Review of Systems Review of Systems All other systems reviewed & are negative unless noted below or in HPI [facility] Medical History Back pain with history of spinal surgery Back injuries T-cell lymphoma Remission. FHx: cholecystectomy Celiac disease Surgical History H/O laminectomy Family History Father Grandparent Legacy FamHx Relation: Maternal Grand Father Family history of colon cancer Legacy FamHx Relation: Maternal Grand Father Grandparent Legacy FamHx Relation: Maternal Grand Mother Grandparent Legacy FamHx Relation: Paternal Grand Father Grandparent Legacy FamHx Relation: Paternal Grand Mother Mother Cancer Legacy FamHx Problem: Diagnosed with Cancer Family history of pancreatic cancer Social History Smoking Status: Never smoker Substance Use Type: None Meds Medications and Allergies Allergies gluten Allergy (Unknown, Verified 05/02/24 09:54) Unknown Reaction Home Medications albuterol sulfate 2.5 mg/3 mL (0.083 %) solution for nebulization 2.5 mg inhalation Q2H PRN shortness of breath or wheezing 02/11/17 [History Confirmed 01/10/24] albuterol sulfate 90 mcg/actuation aerosol inhaler (Proventil HFA) 2 puff inhalation Q2H PRN shortness of breath or wheezing 02/11/17 [History Confirmed 05/02/24] atenolol 25 mg tablet 25 mg PO DAILY 02/11/17 [History Confirmed 05/02/24] cyclobenzaprine 10 mg tablet 10 mg PO TID 02/11/17 [History Confirmed 05/02/24] divalproex 250 mg tablet,delayed release 500 mg PO HS 02/11/17 [History Confirmed 05/02/24] fluticasone 500 mcg-salmeterol 50 mcg/dose blistr powdr for inhalation 1 inh inhalation BID 02/11/17 [History Confirmed 05/02/24] indomethacin 25 mg capsule 25 mg PO .QD 02/11/17 [History Confirmed 01/10/24] montelukast 10 mg tablet 10 mg PO HS 02/11/17 [History Confirmed 05/02/24] celecoxib 200 mg capsule 200 mg PO DAILY 12/27/23 [History Confirmed 05/02/24] doxepin 25 mg capsule 25 mg PO HS 12/27/23 [History Confirmed 05/02/24] duloxetine 30 mg capsule,delayed release 30 mg PO BID 12/27/23 [History Confirmed 05/02/24] meclizine 25 mg tablet 25 mg PO TID PRN dizziness 12/27/23 [History Confirmed 05/02/24] phentermine 37.5 mg tablet 37.5 mg PO DAILY 12/27/23 [History Confirmed 05/02/24] nystatin 100,000 unit/mL oral suspension 400,000 unit (4 mL) PO QID 7 days #112 mL 12/29/23 [Rx Confirmed 05/02/24] Exam Physical Exam Vital Signs: Temp Pulse Resp BP Pulse Ox O2 Del Method O2 Flow Rate 99.1 F H 98 22 94/57 L 99 Nasal Cannula 2 05/03/24 04:00 05/03/24 06:00 05/03/24 06:00 05/03/24 06:00 05/03/24 09:31 05/03/24 09:31 05/03/24 09:31 Const General: no acute distress and ill appearing Nutritional Appearance: obese Orientation: alert and awake HEENT Mouth: moist mucous membranes Teeth and gingiva: fair dentition Eyes Conjunctivae: conjunctivae normal Sclera: sclerae normal Pupils: PERRL and normal by confrontation EOM: EOM intact bilaterally Direct ophthalmoscopy: no photophobia Neck Neck: no lymphadenopathy and supple Neck mass: No Thyroid: thyroid normal Carotids: normal carotid upstroke Lymphatic: no lymphadenopathy noted Resp Effort & Inspection: normal respiratory effort, able to speak in complete sentences and symmetric chest movement Auscultation: rhonchi and wheezes Cardio Jugular venous pressure: no JVD Palpation: normal PMI Rate: regular rate Rhythm: abnormal rhythm Heart Sounds: S1 normal, S2 normal and murmur Pulses: radial pulses present and femoral pulses present GI Palpation: soft and no hepatosplenomegaly Skin General: no rashes or lesions noted Neuro Cranial Nerves: CN's II-XII intact bilaterally Motor: muscle tone normal throughout Sensory Exam: no sensory deficits noted Psych Insight: fair Judgment: fair Results - Cardiology Labs 05/03/24 04:45 05/03/24 04:45 Lab results: Lipids 05/03/24 Range/Units 04:45 Triglycerides 104 (0-149) mg/dL Cholesterol 82 L (140-200) mg/dL HDL Cholesterol 15 L (23-92) mg/dL Cholesterol/HDL Ratio 5.5 (<5.0) CBC 05/03/24 Range/Units 04:45 RBC 3.40 L (3.90-5.60) x10E6/uL Hgb 10.9 L (13.0-17.0) g/dL Hct 32.4 L D (38.8-50.0) % Plt Count 144 L (150-450) x10E3/uL Comprehensive Metabolic Panel 05/03/24 Range/Units 04:45 Sodium 136 (136-145) mmol/L Potassium 3.4 L (3.5-5.1) mmol/L Chloride 105 (98-107) mmol/L Carbon Dioxide 24.7 (21.0-31.0) mmol/L BUN 26 H (7-25) mg/dL Creatinine 0.79 (0.70-1.30) mg/dL Glucose 103 H (70-100) mg/dL Calcium 7.3 L D (8.6-10.3) mg/dL Intake and Output 05/02/24 05/03/24 05/03/24 23:59 07:59 15:59 Intake Total 220 / 3820 200 / 200 Output Total 0 / 0 300 / 300 Balance 220 / 3820 -100 / -100 Intake: IV 100 / 3700 100 / 100 Piperacillin/Tazo 3.375GM-*D5* 100 / 100 100 / 100 3.375 gm In 100 ml @ 25 mls/hr IV Q8H [facility] Rx#:[id number] Oral 120 / 120 100 / 100 Output: Urine 0 / 0 Urine Amount (Catheter) 0 / 0 300 / 300 [place]wick 0 / 0 300 / 300 Other: # Bowel Movements 0 Weight 92.1 kg 91.8 kg Patient Weight 05/03/24 23:59 Weight 91.8 kg Lab 05/02/24 10:15 PT 14.9 H INR 1.3 APTT 28.3 EKG Interpretations EKG Attestation EKG: I reviewed this ECG and interpreted as documented below: EKG shows: atrial fibrillation Blocks, axis, hypertrophy, ST abn Repolarization changes or abnormalities: nonspecific abnormality, ST segment, and/or T wave A&P - Cardiology (1) Atrial fibrillation with rapid ventricular response: Assessment/Problem Details: Patient remains in what is likely paroxysmal atrial fibrillation in the setting of elevated catecholamine state of sepsis. Patient's hemodynamic instability with administration of IV beta-blockade is likely secondary to presence of peripheral vasodilatation in the setting of early septic physiology. See no evidence of cardiogenic shock or malperfusion. A-fib rates now under reasonablecontrol with ambient rate around 100. Plan: 1. Initiate IV digoxin load 2. Initiate oral beta-blockade: Metoprolol tartrate 12.5 mg 3 times daily 3. Initiate DOAC anticoagulation: Apixaban 5 mg twice daily 4. Recommend aggressive medical management and treatment of septic physiology 5. If the patient does not convert to normal sinus rhythm on resolution of sepsis along with medical therapy will plan for 30-day minimum anticoagulation with apixaban 5 mg twice daily and from there we will plan on cardioversion in the outpatient setting. Code(s): I48.91 - Unspecified atrial fibrillation Plan Thank you very much for this kind consultation and for allowing me to dissipate in the care of this very pleasant patient and his family. Documented By: Juanito Solis MD 05/03/24 1308 Signed By: <Electronically signed by Juanito Solis MD> 05/03/24 1327 [facility] Work Phone: [phone]) 996-943412-24-2024 Consult note Author Moris Younger [facility] Note Date/Time May 03, 2024 1:01pm [facility] [address] [place] [address] Infect. Disease Consult Note Signed Patient: Juan Simon MR#: [id number] : 1955 Acct:[id number] Age/Sex: 68 / M Adm Date: 4 Loc: Room: [address] [place] [address] Type: ADM IN Attending Dr: Skyler Sanchez MD Copies to: Tatiana Benson Jr, MD Moris Grady MD~ HPI Data of Consult Consult date: 05/03/24 Requesting Physician: Skyler Sanchez MD Primary Care Provider: Ambika Benson DO Consult Narrative History of present illness: Mr. Simon is a 68 year old male who came to the hospital based on his 'sconcern that he was not acting himself. He was not necessarily complaining of anything per se physically but really had mental status change. UA was abnormalso they were anticipating a urinary tract infection. Chest x-ray was unimpressive. Respiratory panel negative. He was found to be in atrial fibrillation with RVR. Initial vancomycin and Zosyn were given and now he is just on ceftriaxone. Urine culture just came back with 20,000 colonies of Enterococcus species and his blood culture just resulted as group B strep. Patient states he still does not feel much better since coming in hospital. He has been coughing a lot. He is complaining of a headache. Nothing really hurtsfrom his neck down. No nausea vomiting or diarrhea reported. CC: Skyler Sanchez MD Review of Systems Review of Systems All other systems reviewed & are negative unless noted below or in HPI [facility] Medical History Back pain with history of spinal surgery Back injuries T-cell lymphoma Remission. FHx: cholecystectomy Celiac disease Surgical History H/O laminectomy Family History Father Grandparent Legacy FamHx Relation: Maternal Grand Father Family history of colon cancer Legacy FamHx Relation: Maternal Grand Father Grandparent Legacy FamHx Relation: Maternal Grand Mother Grandparent Legacy FamHx Relation: Paternal Grand Father Grandparent Legacy FamHx Relation: Paternal Grand Mother Mother Cancer Legacy FamHx Problem: Diagnosed with Cancer Family history of pancreatic cancer Social History Smoking Status: Never smoker Substance Use Type: None Allergies and Medications Allergies and Active Meds Allergies gluten Allergy (Unknown, Verified 05/02/24 09:54) Unknown Reaction Active Medications Acetaminophen (Acetaminophen 325 Mg Tablet) 650 mg PO Q6H PRN PRN Reason: Pain 1-5 or fever Stop: 05/02/25 17:27 Last Admin: 05/03/24 12:16 Dose: 650 mg Albuterol (Albuterol Neb 2.5 Mg/3 Ml Vial.Neb) 2.5 mg INHALATION Q2H PRN PRN Reason: shortness of breath or wheezing Stop: 05/02/25 17:26 Budesonide/Formoterol Fumarate (Budesonide/Formoterol 160-4.5 Mcg 60 Puff/6 Gm Hfa.Aer.Ad) 2 puff INHALATION BID EDIE Stop: 05/02/25 20:59 Last Admin: 05/03/24 09:30 Dose: 2 puff Ceftriaxone Sodium (Ceftriaxone 2 Gm/20 Ml Syringe) 2 gm IV-PUSH DAILY@1100 EDIE Stop: 05/16/24 11:01 Divalproex Sodium (Divalproex Sodium 500 Mg Tablet.Dr) 500 mg PO HS EDIE Stop: 05/02/25 21:59 Last Admin: 05/02/24 21:14 Dose: 500 mg Doxepin HCl (Doxepin 25 Mg Capsule) 25 mg PO HS EDIE Stop: 05/02/25 21:59 Last Admin: 05/02/24 21:14 Dose: 25 mg Duloxetine HCl (Duloxetine 30 Mg Capsule.Dr) 30 mg PO BID EDIE Stop: 05/02/25 20:59 Last Admin: 05/03/24 09:22 Dose: 30 mg Heparin Sodium (Porcine) (Heparin 5,000 Unit/Ml Vial) 5,000 unit SUBCUT BID EDIE Stop: 05/02/25 18:29 Last Admin: 05/03/24 09:38 Dose: 5,000 unit Norepinephrine Bitartrate (Levophed) 16 mg in 250 mls @ 4.688 mls/hr IV .Q24H [facility]; Protocol Stop: 05/02/25 14:14 Last Infusion: 05/03/24 02:20 Dose: 0 mcg/min, 0 mls/hr Sodium Chloride (0.9% Sodium Chloride 500 Ml) 500 mls @ 1 mls/hr INTRA-ISREAL ONCE PRN PRN Reason: CVP Stop: 05/03/25 01:26 Last Admin: 05/03/24 02:42 Dose: 1 mls/hr Montelukast Sodium (Montelukast 10 Mg Tablet) 10 mg PO HS [facility] Stop: 05/02/25 21:59 Last Admin: 05/02/24 21:14 Dose: 10 mg Sodium Chloride (Sodium Chloride 0.9 % 10 Ml Syringe) 0 ml IV-PUSH PRN PRN PRN Reason: Flush Stop: 05/02/25 09:52 Last Admin: 05/02/24 15:46 Dose: 10 ml Exam Physical Exam Vital Signs: Vital Signs Temp Pulse Pulse Resp BP BP Pulse Ox 05/03/24 09:31 99 05/03/24 08:00 05/03/24 06:00 98 22 94/57 L 96 05/03/24 05:00 96 20 96/56 L 96 05/03/24 04:00 05/03/24 04:00 99.1 F H 98 26 H 90/54 L 96 05/03/24 03:00 94 23 94/57 L 97 05/03/24 02:25 05/03/24 02:20 96 122/74 05/03/24 02:00 98 17 122/74 97 05/03/24 01:48 97 103/59 L 05/03/24 01:11 92 117/68 05/03/24 01:00 97 20 118/71 95 05/03/24 00:48 96 105/70 05/03/24 00:00 99.2 F H 94 17 118/74 95 05/03/24 00:00 05/02/24 23:38 92 123/75 05/02/24 23:05 92 118/81 05/02/24 23:00 93 16 118/81 98 05/02/24 22:23 93 127/72 05/02/24 22:00 93 18 127/72 98 05/02/24 21:00 100 21 120/76 99 05/02/24 20:00 05/02/24 20:00 99 F 100 18 114/68 99 05/02/24 19:00 94 20 127/89 97 05/02/24 18:25 05/02/24 18:00 94 18 104/79 96 05/02/24 17:18 97 102/67 05/02/24 17:00 97 17 102/67 95 05/02/24 16:47 97.3 F L 97 20 107/67 95 05/02/24 16:45 05/02/24 15:50 98 F 101 H 24 102/67 96 05/02/24 15:45 98 109/71 05/02/24 15:35 100 24 90/65 L 96 05/02/24 15:31 102 H 05/02/24 15:29 90/0 L 05/02/24 15:10 176 H 26 H 96/64 L 93 L 05/02/24 15:07 172 H 26 H 93/71 L 98 05/02/24 15:05 172 H 24 93/71 L 92 L 05/02/24 15:01 167 H 22 90/72 L 95 05/02/24 14:57 170 H 22 86/62 L 93 L 05/02/24 14:57 174 H 86/62 L 05/02/24 14:54 100/65 05/02/24 14:54 92 L 05/02/24 14:51 167 H 80/0 L 05/02/24 14:46 170 H 26 H 05/02/24 14:42 169 H 24 115/79 95 05/02/24 14:36 170 H 70/0 L 05/02/24 14:35 170 H 28 H 70/0 L 95 05/02/24 14:23 159 H 70/40 L 05/02/24 14:11 160 H 26 H 71/49 L 93 L 05/02/24 13:18 148 H 26 H 81/56 L 92 L 05/02/24 13:05 161 H 24 93/60 L 92 L 05/02/24 13:00 162 H 05/02/24 13:00 87/49 L 05/02/24 12:59 98.9 F 05/02/24 12:56 164 H 88/54 L 05/02/24 12:50 172 H 24 78/56 L 92 L O2 Del Method O2 Flow Rate 05/03/24 09:31 Nasal Cannula 2 05/03/24 08:00 Nasal Cannula 2 05/03/24 06:00 Nasal Cannula 2 05/03/24 05:00 Nasal Cannula 2 05/03/24 04:00 Nasal Cannula 2 05/03/24 04:00 Nasal Cannula 2 05/03/24 03:00 Nasal Cannula 2 05/03/24 02:25 Nasal Cannula 2 05/03/24 02:20 05/03/24 02:00 Nasal Cannula 2 05/03/24 01:48 05/03/24 01:11 05/03/24 01:00 Nasal Cannula 2 05/03/24 00:48 05/03/24 00:00 Nasal Cannula 2 05/03/24 00:00 Nasal Cannula 2 05/02/24 23:38 05/02/24 23:05 05/02/24 23:00 Nasal Cannula 2 05/02/24 22:23 05/02/24 22:00 Nasal Cannula 2 05/02/24 21:00 Nasal Cannula 2 05/02/24 20:00 Nasal Cannula 2 05/02/24 20:00 Nasal Cannula 2 05/02/24 19:00 Nasal Cannula 2 05/02/24 18:25 Nasal Cannula 2 05/02/24 18:00 Nasal Cannula 2 05/02/24 17:18 05/02/24 17:00 Nasal Cannula 2 05/02/24 16:47 Nasal Cannula 2 05/02/24 16:45 Nasal Cannula 2 05/02/24 15:50 Nasal Cannula 2 05/02/24 15:45 05/02/24 15:35 Nasal Cannula 2 05/02/24 15:31 05/02/24 15:29 05/02/24 15:10 Nasal Cannula 2 05/02/24 15:07 Nasal Cannula 2 05/02/24 15:05 Nasal Cannula 2 05/02/24 15:01 Nasal Cannula 2 05/02/24 14:57 Nasal Cannula 2 05/02/24 14:57 05/02/24 14:54 05/02/24 14:54 Nasal Cannula 2 05/02/24 14:51 05/02/24 14:46 05/02/24 14:42 Room Air 05/02/24 14:36 05/02/24 14:35 Room Air 05/02/24 14:23 05/02/24 14:11 Room Air 05/02/24 13:18 Room Air 05/02/24 13:05 Room Air 05/02/24 13:00 05/02/24 13:00 05/02/24 12:59 05/02/24 12:56 05/02/24 12:50 Room Air Intake and Output 05/02/24 05/03/24 05/03/24 23:59 07:59 15:59 Intake Total 220 / 3820 200 / 200 Output Total 0 / 0 300 / 300 Balance 220 / 3820 -100 / -100 Intake: IV 100 / 3700 100 / 100 Piperacillin/Tazo 3.375GM-*D5* 100 / 100 100 / 100 3.375 gm In 100 ml @ 25 mls/hr IV Q8H [facility] Rx#:[id number] Oral 120 / 120 100 / 100 Output: Urine 0 / 0 Urine Amount (Catheter) 0 / 0 300 / 300 [place] 0 / 0 300 / 300 Other: # Bowel Movements 0 Weight 92.1 kg 91.8 kg Patient Weight 05/03/24 23:59 Weight 91.8 kg Const General: cooperative and comfortable Orientation: oriented x3 HEENT Head: normal to inspection Ears: hearing grossly normal bilaterally Mouth: oral mucosae normal Eyes General: appearance normal, both eyes and all related structures Neck Neck: normal visual inspection Chest Chest palpation & inspection: normal inspection of the chest Resp Effort & Inspection: normal respiratory effort and cough Cardio Rate: regular rate Rhythm: regular rhythm GI Inspection: normal to inspection Palpation: soft and nontender Auscultation: normal bowel sounds Skin General: no rashes or lesions noted Neuro General: patient oriented x3 Extrem General: normal to inspection Results - Infectious Disease Labs 05/03/24 04:45 05/03/24 04:45 Labs: 05/03/24 04:45: Corrected WBC 11.4 H, BUN 26 H, Creatinine 0.79 05/02/24 10:45 Urine Color Yellow Urine Appearance Cloudy A Urine pH 6.0 Ur Specific [place] 1.024 Urine Protein 30 H Urine Glucose (UA) Normal Urine Ketones 2+ H Urine Occult Blood 2+ H Urine Nitrite Negative Urine Bilirubin Negative Urine Urobilinogen 4 H Ur Leukocyte Esterase 4+ H Urine RBC 50-100 H Urine WBC Innumerable H Urine WBC Clumps Occasional H Ur Squamous Epith Cells 1-2 Ur Transition Epith Cell 1-2 H Urine Bacteria 1+ H Hyaline Casts None Urine Mucus 1+ A Microbiology Results Microbiology Narrative: 05/02/24 10:45 Urine Culture - Preliminary Urine - Clean-Voided Midstream Possible Enterococcus Species Organism 1 Possible Enterococcus Species [place] Count 20,000 CFU/ml 05/02/24 10:20 Blood Culture - Preliminary Blood - Left Hand Strep agalactiae - (group b) 05/02/24 10:15 Blood Culture - Preliminary Blood - Left Antecubital Strep agalactiae - (group b) Bacterial ID (NA Multiplex Assay) - Final 05/02/24 10:40 Respiratory Panel (PCR) - Final Nasopharyngeal A&P - Infectious Disease (1) Bacteremia due to group B Streptococcus: (2) Sepsis: (3) Altered mental status: Plan Patient empirically given vancomycin and Zosyn but narrowed to ceftriaxone. Group B strep in the bloodstream does not necessarily match the Enterococcus in his urine. His UA was quite abnormal but only 20,000 colonies to date in his urine culture. Source of group B strep in question. Chest x-ray is clear. Favor CT scan abdomen pelvis just for further evaluation along with repeating blood cultures for initial plan. Documented By: Moris Younger MD 05/03/24 1223 Signed By: <Electronically signed by MD Moris Younger> 05/03/24 1308 [facility] Work Phone: 1(320) 818-445412-24-2024 Progress note Author Skyler Sanchez [facility] Note Date/Time May 03, 2024 12:32pm [facility] [address] [place] [address] Hospitalist Progress Note Signed Patient: Juan Simon MR#: [id number] : 1955 Acct:[id number] Age/Sex: 68 / M Adm Date: 4 Loc: Room: [address] [place] [address] Type: ADM IN Attending Dr: Skyler Sanchez MD Copies to: ~ Date of Service: 05/03/2024 Subjective Subjective Narrative: 68M with PMH of Asthma, celiac disease, DJD and chronic back pain s/p spinal cord stimulator and nerve ablations, frequent Falls, migraines, MANUEL who presented with AMS and admitted for the evaluation and treatment of Afib RVR andcirculatory shock Assessment And Plan Circulatory shock He was given a total of multiple dose of metoprolol to control his Afib RVR . then he developed hypotension. he was given 3L of IVF. he was started on Levophed. Lactic wnl . he was admitted to the ICU Pulmonary consult for critical care management recommendation appreciated Levophed is off Sepsis Strep Bacteremia Hypotension noted in the ED with tachycardia and mild leukocytosis. he had feverup to 39.5C. he was started on broad spectrum IV antibiotics Lactric acid wnl CXR ED shows no acute cardiopulmonary abnormality Respiratory (Upper) Panel, PCR negative Blood CX Strep agalactiae urinalysis show any pyuria urine Cx shows Possible Enterococcus Species ID consult (d/w Dr. younger) Agree with change to Ceftriaxone Acute toxic-metabolic encephalopathy the patient presents with acute confusional state and behavior changes noted by his Urine Tox screen is positive for amphetamine CT brain shows no acute intracranial process Ammonia wnl ABG shows no hypercapnia Could be due to the current infection Favor consulting neurology supportive and treatment of the underlying condition Newly diagnosed Paroxysmal Afib with RVR back to afib , rate controlled the patient was found to have Afib RVR in the ED with heart rate up to 150s and received multiple doses of metoprolol IV. he converted to NSR in the ED EKG ED 9:45 am (i personally reviewed) shows Afib @ 146 bpm without significantacute changes. EKG 3:20 pm shows NSR No significant electrolyte Abnormality, Mg 1.8 (replaced) TSH in EMR wnl Telemetry Correct electrolyte abnormality if any Echocardiogram Cardiology consult Elevated Troponin Type II MD Troponin was found incidentally to be mildly elevated above normal limits 106 upto 311 . There is no chest pain, nor significant EKG changes. This is likely type 2 myocardial infarction secondary to ischemia due to increased oxygen demand and/or decreased supply in the setting of tachycardia . Troponin will be repeated. Further workup, if needed, can be done in an outpatient setting. INTERVAL HPI:?As Above, Pt resting in bed. still confused per Chronic diseases:?Unless mentioned Above, Essential home medications have been continued.? DVT Px:?Addressed Disposition:?To be determined Plan of care Discussed with:?the medical team, the patient at bedside Exam Physical Exam Vital Signs: Temp Pulse Resp BP Pulse Ox O2 Del Method O2 Flow Rate 37.3 C H 98 22 94/57 L 99 Nasal Cannula 2 05/03/24 04:00 05/03/24 06:00 05/03/24 06:00 05/03/24 06:00 05/03/24 09:31 05/03/24 09:31 05/03/24 09:31 Narrative: GEN: not fully Cooperative, Not in acute distress. NECK: Supple, ? JVD LUNGS: CTA CV: S1S2 nl, 2/6 systolic murmur ABD: Soft, ND, NT, + BS, ? HSM EXT: No edema in LE bilaterally, no calf muscle tenderness. NEURO: generalized weakness confused move all his exterminates , tremor in his hands PSYCH: flat affect, nl speech, AOx1-2. Objective Lab Results 05/03/24 04:45 05/03/24 04:45 Microbiology Results Microbiology 05/02/24 10:45 Urine - Clean-Voided Midstream Urine Culture - Preliminary Possible Enterococcus Species 05/02/24 10:20 Blood - Left Hand Blood Culture - Preliminary Strep agalactiae - (group b) 05/02/24 10:15 Blood - Left Antecubital Blood Culture - Preliminary Strep agalactiae - (group b) 05/02/24 10:15 Blood - Left Antecubital Bacterial ID (NA Multiplex Assay) - Final 05/02/24 10:40 Nasopharyngeal Respiratory Panel (PCR) - Final Meds Allergies and Active Meds Allergies gluten Allergy (Unknown, Verified 05/02/24 09:54) Unknown Reaction Active Meds: Active Medications Generic Name Dose Route Start Last Admin Trade Name Freq PRN Reason Stop Dose Admin Acetaminophen 650 mg 05/02/24 17:28 Acetaminophen 325 Mg Tablet PO 05/02/25 17:27 Q6H PRN Pain 1-5 or fever Albuterol 2.5 mg 05/02/24 17:27 Albuterol Neb 2.5 Mg/3 Ml Vial.Neb INHALATION 05/02/25 17:26 Q2H PRN shortness of breath or wheezing Budesonide/Formoterol Fumarate 2 puff 05/02/24 21:00 05/03/24 09:30 Budesonide/Formoterol 160-4.5 Mcg 60 Puff/6 Gm Hfa.Aer.Ad INHALATION 05/02/25 20:59 2 puff BID EDIE Administration Ceftriaxone Sodium 2 gm 05/03/24 11:00 Ceftriaxone 2 Gm/20 Ml Syringe IV-PUSH DAILY@1100 EDIE Divalproex Sodium 500 mg 05/02/24 22:00 05/02/24 21:14 Divalproex Sodium 500 Mg Tablet. PO 05/02/25 21:59 500 mg HS EDIE Administration Doxepin HCl 25 mg 05/02/24 22:00 05/02/24 21:14 Doxepin 25 Mg Capsule PO 05/02/25 21:59 25 mg HS EDIE Administration Duloxetine HCl 30 mg 05/02/24 21:00 05/03/24 09:22 Duloxetine 30 Mg Capsule. PO 05/02/25 20:59 30 mg BID EDIE Administration Heparin Sodium (Porcine) 5,000 unit 05/02/24 18:30 05/03/24 09:38 Heparin 5,000 Unit/Ml Vial SUBCUT 05/02/25 18:29 5,000 unit BID EDIE Administration Norepinephrine Bitartrate 16 mg in 250 mls @ 4.688 mls/hr 05/02/24 14:15 05/03/24 02:20 Levophed IV 05/02/25 14:14 0 mcg/min .Q24H EDIE 0 mls/hr Infusion Protocol 5 MCG/MIN Sodium Chloride 500 mls @ 1 mls/hr 05/03/24 01:27 05/03/24 02:42 0.9% Sodium Chloride 500 Ml INTRA-ISREAL 05/03/25 01:26 1 mls/hr ONCE PRN Administration CVP Montelukast Sodium 10 mg 05/02/24 22:00 05/02/24 21:14 Montelukast 10 Mg Tablet PO 05/02/25 21:59 10 mg HS EDIE Administration Sodium Chloride 0 ml 05/02/24 09:53 05/02/24 15:46 Sodium Chloride 0.9 % 10 Ml Syringe IV-PUSH 05/02/25 09:52 10 ml PRN PRN Administration Flush A&P - Hospitalist Assessment/Plan (1) Atrial fibrillation with rapid ventricular response: Plan Documented By: Skyler Sanchez MD 05/03/24 1210 Signed By: <Electronically signed by Skyler Sanchez MD> 05/03/24 1232 [facility] Work Phone: [phone]) 805-211912-24-2024 Consult note Author Jimmy Matias [facility] Note Date/Time May 03, 2024 12:15pm [facility] [address] [place] [address] Pulmonology Consult Note Signed Patient: Juan Simon MR#: [id number] : 1955 Acct:[id number] Age/Sex: 68 / M Adm Date: 4 Loc: Room: [address] [place] [address] Type: ADM IN Attending Dr: Skyler Sanchez MD Copies to: MD Tatiana Seth Jr, DO Skyler Sanchez MD~ HPI Date/Time of Consultation: Date of Service: 05/03/2024 Time of Service: 07:56 Consulting Provider: Jimmy Matias Requesting Provider: Skyler Sanchez History of Present Illness History of present illness: Mr. Simon is a 68 year old male seen at the request of the hospitalist service for ICU management. Patient presented to the emergency department with 2 to 3 days of cough followed by fever and mental status change/confusion. Evaluation in the emergency department included fever to 103.1 ?F with tachycardia with laboratory values revealing leukocytosis. Patient was started on vancomycin and Zosyn. Patient suddenly developed atrial fibrillation with rapid ventricular response with patient developing hypotension with patient fluid resuscitated and given IV metoprolol and subsequently initiated on norepinephrine. Patient had right internal jugular central venous catheter placed and patient was placed on norepinephrine. Urinalysis does reveal evidence of possible urinary tract infection with innumerable white blood cells and 4+ leukocyte esterase and bacteria noted. Initial blood culture has subsidyrevealed group B strep with patient having prior history of ampicillin sensitiveEnterococcus in the urine in December 2023 with sputum positive for MSSA in December2023. Patient is admitted to the ICU with norepinephrine weaned off. Urine culture is pending. Review of Systems Review of Systems All other systems reviewed & are negative unless noted below or in HPI [facility] Medical History Back pain with history of spinal surgery Back injuries T-cell lymphoma Remission. FHx: cholecystectomy Celiac disease Surgical History H/O laminectomy Family History Father Grandparent Legacy FamHx Relation: Maternal Grand Father Family history of colon cancer Legacy FamHx Relation: Maternal Grand Father Grandparent Legacy FamHx Relation: Maternal Grand Mother Grandparent Legacy FamHx Relation: Paternal Grand Father Grandparent Legacy FamHx Relation: Paternal Grand Mother Mother Cancer Legacy FamHx Problem: Diagnosed with Cancer Family history of pancreatic cancer Social History Smoking Status: Never smoker Substance Use Type: None Meds Medications and Allergies Allergies gluten Allergy (Unknown, Verified 05/02/24 09:54) Unknown Reaction Home Medications albuterol sulfate 2.5 mg/3 mL (0.083 %) solution for nebulization 2.5 mg inhalation Q2H PRN shortness of breath or wheezing 02/11/17 [History Confirmed 01/10/24] albuterol sulfate 90 mcg/actuation aerosol inhaler (Proventil HFA) 2 puff inhalation Q2H PRN shortness of breath or wheezing 02/11/17 [History Confirmed 05/02/24] atenolol 25 mg tablet 25 mg PO DAILY 02/11/17 [History Confirmed 05/02/24] cyclobenzaprine 10 mg tablet 10 mg PO TID 02/11/17 [History Confirmed 05/02/24] divalproex 250 mg tablet,delayed release 500 mg PO HS 02/11/17 [History Confirmed 05/02/24] fluticasone 500 mcg-salmeterol 50 mcg/dose blistr powdr for inhalation 1 inh inhalation BID 02/11/17 [History Confirmed 05/02/24] indomethacin 25 mg capsule 25 mg PO .QD 02/11/17 [History Confirmed 01/10/24] montelukast 10 mg tablet 10 mg PO HS 02/11/17 [History Confirmed 05/02/24] celecoxib 200 mg capsule 200 mg PO DAILY 12/27/23 [History Confirmed 05/02/24] doxepin 25 mg capsule 25 mg PO HS 12/27/23 [History Confirmed 05/02/24] duloxetine 30 mg capsule,delayed release 30 mg PO BID 12/27/23 [History Confirmed 05/02/24] meclizine 25 mg tablet 25 mg PO TID PRN dizziness 12/27/23 [History Confirmed 05/02/24] phentermine 37.5 mg tablet 37.5 mg PO DAILY 12/27/23 [History Confirmed 05/02/24] nystatin 100,000 unit/mL oral suspension 400,000 unit (4 mL) PO QID 7 days #112 mL 12/29/23 [Rx Confirmed 05/02/24] Exam Physical Exam Vital Signs: Temp Pulse Resp BP Pulse Ox O2 Del Method O2 Flow Rate 99.1 F H 98 22 94/57 L 96 Nasal Cannula 2 05/03/24 04:00 05/03/24 06:00 05/03/24 06:00 05/03/24 06:00 05/03/24 06:00 05/03/24 06:00 05/03/24 06:00 Const General: cooperative Orientation: alert, awake, not oriented x3, oriented to person, oriented to place and not oriented to time HEENT Head: normal to inspection Ears: hearing grossly normal bilaterally and external ears normal Nose: external nose normal Face and sinus: normal facial exam Eyes Sclera: sclerae normal Neck Neck: normal visual inspection Resp Effort & Inspection: normal respiratory effort Auscultation: clear to auscultation bilaterally, diminished lung sounds, no rales, no rhonchi and no wheezes Cardio Rate: regular rate Rhythm: regular rhythm Heart Sounds: S1 normal, S2 normal and no murmurs GI Inspection: normal to inspection Palpation: soft and nontender General: deferred Skin General: no rashes or lesions noted (Warm and dry) Extrem General: no pedal edema Results - Pulmonology Intake and Output I&O - Last 24 Hours: Intake & Output 05/02/24 05/02/24 05/03/24 15:59 23:59 07:59 Intake Total 3600 / 3820 220 / 3820 200 / 200 Output Total 0 / 0 300 / 300 Balance 3600 / 3820 220 / 3820 -100 / -100 Weight 93 kg 92.1 kg 91.8 kg Labs 05/03/24 04:45 05/03/24 04:45 Microbiology Micro: 05/02/24 10:15 Blood Culture - Preliminary Blood - Left Antecubital Strep agalactiae - (group b) Bacterial ID (NA Multiplex Assay) - Final 05/02/24 10:20 Blood Culture - Preliminary Blood - Left Hand 05/02/24 10:40 Respiratory Panel (PCR) - Final Nasopharyngeal 05/02/24 10:45 Urine Culture - Pending Urine - Clean-Voided Midstream Imaging and Cardiology Chest x-ray: Status: image reviewed by me Additional comments: Date of Service: 05/02/24 XR/XR chest 1V portable: Chest Pain SINGLE VIEW CHEST CLINICAL HISTORY: Cough confusion fever Central line placement COMPARISON: Chest 05/02/2024 FINDINGS: New right-sided IJ line tip at the brachiocephalic/SVC junction. Heart and mediolateral structures appear unchanged. Nodule involving the right upper lobe is unchanged. No pneumothorax pleural effusion or free air. XR/XR chest 1V portable IMPRESSION: RIGHT-SIDED IJ LINE TIP AT THE BRACHIOCEPHALIC/SVC JUNCTION. NO PNEUMOTHORAX. Assessment/Plan (1) Sepsis: (2) Atrial fibrillation with rapid ventricular response: (3) Urinary tract infection: (4) Bacteremia due to Streptococcus: Plan Hospital day #1 for patient with presumed urinary tract infection with group B strep bacteremia and sepsis * Patient has no prior history of resistant organisms with most recent hospitalization in December 2023 for COVID. Will discontinue vancomycin and change Zosyn to ceftriaxone 2 g IV daily given positive blood cultures for group B strep x 2 with only 20,000 CFU of Enterococcus in the urine * Volume resuscitate as needed with pressors discontinued * Supportive care Documented By: Jimmy Matias MD 4 [id number] Signed By: <Electronically signed by MD Jimmy Matias> 05/03/24 [facility] Work Phone: [phone]) 825-980612-24-2024 [place] [address] Cardiology Consult Note Signed Patient: Juan Simon MR#: [id number] : 1955 Acct:[id number] Age/Sex: 68 / M Adm Date: 4 Loc: Room: [address] [place] [address] Type: ADM IN Attending Dr: Skyler Sanchez MD Copies to: Tatiana Benson Jr, MD Juanito Grady MD~ Cardiology HPI History of Present Illness Consult Date: 05/03/24 Reason for Consult: Atrial fibrillation HPI: Mr. Simon is a 68 year old male with a reported history of atrial fibrillation in the past (patient states he has been told at some point that he had atrial fibrillation but is not on medical therapy nor anticoagulation at home for such and he is not sure of the diagnostic details) who was admitted to the ICU through the emergency department early this morning after his brought him to the ER for mental status changes and productive cough. In the patient's evaluation blood and urine cultures have both been positive although for different organisms. On initial presentation in the emergency department the patient was found to be in atrial fibrillation with ventricular sponsor in the 150s. He was apparently initially tried to be put under rate control with IV metoprolol which caused him to be markedly hypotensive to the point where IV pressor support was necessary. Patient was admitted to the ICU and since has been treated for his septic physiology. He remains in atrial fibrillation now with ambient rates 95 to 105 bpm. Given the atrial fibrillation I am now consulted for further cardiac evaluation and management. Currently the patient denies any symptoms from a cardiovascular standpoint. Review of Systems Review of Systems All other systems reviewed & are negative unless noted below or in HPI [facility] Medical History Back pain with history of spinal surgery Back injuries T-cell lymphoma Remission. FHx: cholecystectomy Celiac disease Surgical History H/O laminectomy Family History Father Grandparent Legacy FamHx Relation: Maternal Grand Father Family history of colon cancer Legacy FamHx Relation: Maternal Grand Father Grandparent Legacy FamHx Relation: Maternal Grand Mother Grandparent Legacy FamHx Relation: Paternal Grand Father Grandparent Legacy FamHx Relation: Paternal Grand Mother Mother Cancer Legacy FamHx Problem: Diagnosed with Cancer Family history of pancreatic cancer Social History Smoking Status: Never smoker Substance Use Type: None Meds Medications and Allergies Allergies gluten Allergy (Unknown, Verified 05/02/24 09:54) Unknown Reaction Home Medications albuterol sulfate 2.5 mg/3 mL (0.083 %) solution for nebulization 2.5 mg inhalation Q2H PRN shortness of breath or wheezing 02/11/17 [History Confirmed 01/10/24] albuterol sulfate 90 mcg/actuation aerosol inhaler (Proventil HFA) 2 puff inhalation Q2H PRN shortness of breath or wheezing 02/11/17 [History Confirmed 05/02/24] atenolol 25 mg tablet 25 mg PO DAILY 02/11/17 [History Confirmed 05/02/24] cyclobenzaprine 10 mg tablet 10 mg PO TID 02/11/17 [History Confirmed 05/02/24] divalproex 250 mg tablet,delayed release 500 mg PO HS 02/11/17 [History Confirmed 05/02/24] fluticasone 500 mcg-salmeterol 50 mcg/dose blistr powdr for inhalation 1 inh inhalation BID 02/11/17 [History Confirmed 05/02/24] indomethacin 25 mg capsule 25 mg PO .QD 02/11/17 [History Confirmed 01/10/24] montelukast 10 mg tablet 10 mg PO HS 02/11/17 [History Confirmed 05/02/24] celecoxib 200 mg capsule 200 mg PO DAILY 12/27/23 [History Confirmed 05/02/24] doxepin 25 mg capsule 25 mg PO HS 12/27/23 [History Confirmed 05/02/24] duloxetine 30 mg capsule,delayed release 30 mg PO BID 12/27/23 [History Confirmed 05/02/24] meclizine 25 mg tablet 25 mg PO TID PRN dizziness 12/27/23 [History Confirmed 05/02/24] phentermine 37.5 mg tablet 37.5 mg PO DAILY 12/27/23 [History Confirmed 05/02/24] nystatin 100,000 unit/mL oral suspension 400,000 unit (4 mL) PO QID 7 days #112 mL 12/29/23 [Rx Confirmed 05/02/24] Exam Physical Exam Vital Signs: Temp Pulse Resp BP Pulse Ox O2 Del Method O2 Flow Rate 99.1 F H 98 22 94/57 L 99 Nasal Cannula 2 05/03/24 04:00 05/03/24 06:00 05/03/24 06:00 05/03/24 06:00 05/03/24 09:31 05/03/24 09:31 05/03/24 09:31 Const General: no acute distress and ill appearing Nutritional Appearance: obese Orientation: alert and awake HEENT Mouth: moist mucous membranes Teeth and gingiva: fair dentition Eyes Conjunctivae: conjunctivae normal Sclera: sclerae normal Pupils: PERRL and normal by confrontation EOM: EOM intact bilaterally Direct ophthalmoscopy: no photophobia Neck Neck: no lymphadenopathy and supple Neck mass: No Thyroid: thyroid normal Carotids: normal carotid upstroke Lymphatic: no lymphadenopathy noted Resp Effort & Inspection: normal respiratory effort, able to speak in complete sentences and symmetric chest movement Auscultation: rhonchi and wheezes Cardio Jugular venous pressure: no JVD Palpation: normal PMI Rate: regular rate Rhythm: abnormal rhythm Heart Sounds: S1 normal, S2 normal and murmur Pulses: radial pulses present and femoral pulses present GI Palpation: soft and no hepatosplenomegaly Skin General: no rashes or lesions noted Neuro Cranial Nerves: CN's II-XII intact bilaterally Motor: muscle tone normal throughout Sensory Exam: no sensory deficits noted Psych Insight: fair Judgment: fair Results - Cardiology Labs 05/03/24 04:45 05/03/24 04:45 Lab results: Lipids 05/03/24 Range/Units 04:45 Triglycerides 104 (0-149) mg/dL Cholesterol 82 L (140-200) mg/dL HDL Cholesterol 15 L (23-92) mg/dL Cholesterol/HDL Ratio 5.5 (<5.0) CBC 05/03/24 Range/Units 04:45 RBC 3.40 L (3.90-5.60) x10E6/uL Hgb 10.9 L (13.0-17.0) g/dL Hct 32.4 L D (38.8-50.0) % Plt Count 144 L (150-450) x10E3/uL Comprehensive Metabolic Panel 05/03/24 Range/Units 04:45 Sodium 136 (136-145) mmol/L Potassium 3.4 L (3.5-5.1) mmol/L Chloride 105 (98-107) mmol/L Carbon Dioxide 24.7 (21.0-31.0) mmol/L BUN 26 H (7-25) mg/dL Creatinine 0.79 (0.70-1.30) mg/dL Glucose 103 H (70-100) mg/dL Calcium 7.3 L D (8.6-10.3) mg/dL Intake and Output 05/02/24 05/03/24 05/03/24 23:59 07:59 15:59 Intake Total 220 / 3820 200 / 200 Output Total 0 / 0 300 / 300 Balance 220 / 3820 -100 / -100 Intake: IV 100 / 3700 100 / 100 Piperacillin/Tazo 3.375GM-*D5* 100 / 100 100 / 100 3.375 gm In 100 ml @ 25 mls/hr IV Q8H [facility] Rx#:[id number] Oral 120 / 120 100 / 100 Output: Urine 0 / 0 Urine Amount (Catheter) 0 / 0 300 / 300 Purwick 0 / 0 300 / 300 Other: # Bowel Movements 0 Weight 92.1 kg 91.8 kg Patient Weight 05/03/24 23:59 Weight 91.8 kg Lab 05/02/24 10:15 PT 14.9 H INR 1.3 APTT 28.3 EKG Interpretations EKG Attestation EKG: I reviewed this ECG and interpreted as documented below: EKG shows: atrial fibrillation Blocks, axis, hypertrophy, ST abn Repolarization changes or abnormalities: nonspecific abnormality, ST segment, and/or T wave A&P - Cardiology (1) Atrial fibrillation with rapid ventricular response: Assessment/Problem Details: Patient remains in what is likely paroxysmal atrial fibrillation in the setting of elevated catecholamine state of sepsis. Patient's hemodynamic instability with administration of IV beta-blockade islikely secondary to presence of peripheral vasodilatation in the setting of early septic physiology. See no evidence of cardiogenic shock or malperfusion. A-fib rates now under reasonablecontrol withambient rate around 100. Plan: 1. Initiate IV digoxin load 2. Initiate oral beta-blockade: Metoprolol tartrate 12.5 mg 3 times daily 3. Initiate DOAC anticoagulation: Apixaban 5 mg twice daily 4. Recommend aggressive medical management and treatment of septic physiology 5. If the patient does not convert to normal sinus rhythm on resolution of sepsis along with medical therapy will plan for 30-day minimum anticoagulation with apixaban 5 mg twice daily and from therewe will plan on cardioversion in the outpatient setting. Code(s): I48.91 - Unspecified atrial fibrillation Plan Thank you very much for this kind consultation and for allowing me to dissipate in the care of thisvery pleasant patient and his family. Documented By: Juanito Solis MD 05/03/24 1308 Signed By: 05/03/[address] [facility]12-24-2024 [place] [address] Infect. Disease Consult Note Signed Patient: Juan Simon MR#: [id number] : 1955 Acct:[id number] Age/Sex: 68 / M Adm Date: 4 Loc: Room: [address] [place] [address] Type: ADM IN Attending Dr: Skyler Sanchez MD Copies to: Tatiana Benson Jr, MD Moris Grady MD~ HPI Data of Consult Consult date: 05/03/24 Requesting Physician: Skyler Sanchez MD Primary Care Provider: Ambika Benson DO Consult Narrative History of present illness: Mr. Simon is a 68 year old male who came to the hospital based on his 'sconcern that he wasnot acting himself. He was not necessarily complaining of anything per se physically but really hadmental status change. UA was abnormalso they were anticipating a urinary tract infection. Chest x-ray was unimpressive. Respiratory panel negative. He was found to be in atrial fibrillation with RVR.Initial vancomycin and Zosyn were given and now he is just on ceftriaxone. Urine culture just came back with 20,000 colonies of Enterococcus species and his blood culture just resulted as group B strep. Patient states he still does not feel much better since coming in hospital. He has been coughinga lot. He is complaining of a headache. Nothing really hurtsfrom his neck down. No nausea vomiting or diarrhea reported. CC: Skyler Sanchez MD Review of Systems Review of Systems All other systems reviewed & are negative unless noted below or in HPI [facility] Medical History Back pain with history of spinal surgery Back injuries T-cell lymphoma Remission. FHx: cholecystectomy Celiac disease Surgical History H/O laminectomy Family History Father Grandparent Legacy FamHx Relation: Maternal Grand Father Family history of colon cancer Legacy FamHx Relation: Maternal Grand Father Grandparent Legacy FamHx Relation: Maternal Grand Mother Grandparent Legacy FamHx Relation: Paternal Grand Father Grandparent Legacy FamHx Relation: Paternal Grand Mother Mother Cancer Legacy FamHx Problem: Diagnosed with Cancer Family history of pancreatic cancer Social History Smoking Status: Never smoker Substance Use Type: None Allergies and Medications Allergies and Active Meds Allergies gluten Allergy (Unknown, Verified 05/02/24 09:54) Unknown Reaction Active Medications Acetaminophen (Acetaminophen 325 Mg Tablet) 650 mg PO Q6H PRN PRN Reason: Pain 1-5 or fever Stop: 05/02/25 17:27 Last Admin: 05/03/24 12:16 Dose: 650 mg Albuterol (Albuterol Neb 2.5 Mg/3 Ml Vial.Neb) 2.5 mg INHALATION Q2H PRN PRN Reason: shortness of breath or wheezing Stop: 05/02/25 17:26 Budesonide/Formoterol Fumarate (Budesonide/Formoterol 160-4.5 Mcg 60 Puff/6 Gm Hfa.Aer.Ad) 2 puff INHALATION BID EDIE Stop: 05/02/25 20:59 Last Admin: 05/03/24 09:30 Dose: 2 puff Ceftriaxone Sodium (Ceftriaxone 2 Gm/20 Ml Syringe) 2 gm IV-PUSH DAILY@1100 [facility] Stop: 05/16/24 11:01 Divalproex Sodium (Divalproex Sodium 500 Mg Tablet.Dr) 500 mg PO [facility] Stop: 05/02/25 21:59 Last Admin: 05/02/24 21:14 Dose: 500 mg Doxepin HCl (Doxepin 25 Mg Capsule) 25 mg PO [facility] Stop: 05/02/25 21:59 Last Admin: 05/02/24 21:14 Dose: 25 mg Duloxetine HCl (Duloxetine 30 Mg Capsule.Dr) 30 mg PO BID [facility] Stop: 05/02/25 20:59 Last Admin: 05/03/24 09:22 Dose: 30 mg Heparin Sodium (Porcine) (Heparin 5,000 Unit/Ml Vial) 5,000 unit SUBCUT BID [facility] Stop: 05/02/25 18:29 Last Admin: 05/03/24 09:38 Dose: 5,000 unit Norepinephrine Bitartrate (Levophed) 16 mg in 250 mls @ 4.688 mls/hr IV .Q24H EDIE; Protocol Stop: 05/02/25 14:14 Last Infusion: 05/03/24 02:20 Dose: 0 mcg/min, 0 mls/hr Sodium Chloride (0.9% Sodium Chloride 500 Ml) 500 mls @ 1 mls/hr INTRA-ISREAL ONCE PRN PRN Reason: CVP Stop: 05/03/25 01:26 Last Admin: 05/03/24 02:42 Dose: 1 mls/hr Montelukast Sodium (Montelukast 10 Mg Tablet) 10 mg PO [facility] Stop: 05/02/25 21:59 Last Admin: 05/02/24 21:14 Dose: 10 mg Sodium Chloride (Sodium Chloride 0.9 % 10 Ml Syringe) 0 ml IV-PUSH PRN PRN PRN Reason: Flush Stop: 05/02/25 09:52 Last Admin: 05/02/24 15:46 Dose: 10 ml Exam Physical Exam Vital Signs: Vital Signs Temp Pulse Pulse Resp BP BP Pulse Ox 05/03/24 09:31 99 05/03/24 08:00 05/03/24 06:00 98 22 94/57 L 96 05/03/24 05:00 96 20 96/56 L 96 05/03/24 04:00 05/03/24 04:00 99.1 F H 98 26 H 90/54 L 96 05/03/24 03:00 94 23 94/57 L 97 05/03/24 02:25 05/03/24 02:20 96 122/74 05/03/24 02:00 98 17 122/74 97 05/03/24 01:48 97 103/59 L 05/03/24 01:11 92 117/68 05/03/24 01:00 97 20 118/71 95 05/03/24 00:48 96 105/70 05/03/24 00:00 99.2 F H 94 17 118/74 95 05/03/24 00:00 05/02/24 23:38 92 123/75 05/02/24 23:05 92 118/81 05/02/24 23:00 93 16 118/81 98 05/02/24 22:23 93 127/72 05/02/24 22:00 93 18 127/72 98 05/02/24 21:00 100 21 120/76 99 05/02/24 20:00 05/02/24 20:00 99 F 100 18 114/68 99 05/02/24 19:00 94 20 127/89 97 05/02/24 18:25 05/02/24 18:00 94 18 104/79 96 05/02/24 17:18 97 102/67 05/02/24 17:00 97 17 102/67 95 05/02/24 16:47 97.3 F L 97 20 107/67 95 05/02/24 16:45 05/02/24 15:50 98 F 101 H 24 102/67 96 05/02/24 15:45 98 109/71 05/02/24 15:35 100 24 90/65 L 96 05/02/24 15:31 102 H 05/02/24 15:29 90/0 L 05/02/24 15:10 176 H 26 H 96/64 L 93 L 05/02/24 15:07 172 H 26 H 93/71 L 98 05/02/24 15:05 172 H 24 93/71 L 92 L 05/02/24 15:01 167 H 22 90/72 L 95 05/02/24 14:57 170 H 22 86/62 L 93 L 05/02/24 14:57 174 H 86/62 L 05/02/24 14:54 100/65 05/02/24 14:54 92 L 05/02/24 14:51 167 H 80/0 L 05/02/24 14:46 170 H 26 H 05/02/24 14:42 169 H 24 115/79 95 05/02/24 14:36 170 H 70/0 L 05/02/24 14:35 170 H 28 H 70/0 L 95 05/02/24 14:23 159 H 70/40 L 05/02/24 14:11 160 H 26 H 71/49 L 93 L 05/02/24 13:18 148 H 26 H 81/56 L 92 L 05/02/24 13:05 161 H 24 93/60 L 92 L 05/02/24 13:00 162 H 05/02/24 13:00 87/49 L 05/02/24 12:59 98.9 F 05/02/24 12:56 164 H 88/54 L 05/02/24 12:50 172 H 24 78/56 L 92 L O2 Del Method O2 Flow Rate 05/03/24 09:31 Nasal Cannula 2 05/03/24 08:00 Nasal Cannula 2 05/03/24 06:00 Nasal Cannula 2 05/03/24 05:00 Nasal Cannula 2 05/03/24 04:00 Nasal Cannula 2 05/03/24 04:00 Nasal Cannula 2 05/03/24 03:00 Nasal Cannula 2 05/03/24 02:25 Nasal Cannula 2 05/03/24 02:20 05/03/24 02:00 Nasal Cannula 2 05/03/24 01:48 05/03/24 01:11 05/03/24 01:00 Nasal Cannula 2 05/03/24 00:48 05/03/24 00:00 Nasal Cannula 2 05/03/24 00:00 Nasal Cannula 2 05/02/24 23:38 05/02/24 23:05 05/02/24 23:00 Nasal Cannula 2 05/02/24 22:23 05/02/24 22:00 Nasal Cannula 2 05/02/24 21:00 Nasal Cannula 2 05/02/24 20:00 Nasal Cannula 2 05/02/24 20:00 Nasal Cannula 2 05/02/24 19:00 Nasal Cannula 2 05/02/24 18:25 Nasal Cannula 2 05/02/24 18:00 Nasal Cannula 2 05/02/24 17:18 05/02/24 17:00 Nasal Cannula 2 05/02/24 16:47 Nasal Cannula 2 05/02/24 16:45 Nasal Cannula 2 05/02/24 15:50 Nasal Cannula 2 05/02/24 15:45 05/02/24 15:35 Nasal Cannula 2 05/02/24 15:31 05/02/24 15:29 05/02/24 15:10 Nasal Cannula 2 05/02/24 15:07 Nasal Cannula 2 05/02/24 15:05 Nasal Cannula 2 05/02/24 15:01 Nasal Cannula 2 05/02/24 14:57 Nasal Cannula 2 05/02/24 14:57 05/02/24 14:54 05/02/24 14:54 Nasal Cannula 2 05/02/24 14:51 05/02/24 14:46 05/02/24 14:42 Room Air 05/02/24 14:36 05/02/24 14:35 Room Air 05/02/24 14:23 05/02/24 14:11 Room Air 05/02/24 13:18 Room Air 05/02/24 13:05 Room Air 05/02/24 13:00 05/02/24 13:00 05/02/24 12:59 05/02/24 12:56 05/02/24 12:50 Room Air Intake and Output 05/02/24 05/03/24 05/03/24 23:59 07:59 15:59 Intake Total 220 / 3820 200 / 200 Output Total 0 / 0 300 / 300 Balance 220 / 3820 -100 / -100 Intake: IV 100 / 3700 100 / 100 Piperacillin/Tazo 3.375GM-*D5* 100 / 100 100 / 100 3.375 gm In 100 ml @ 25 mls/hr IV Q8H [facility] Rx#:[id number] Oral 120 / 120 100 / 100 Output: Urine 0 / 0 Urine Amount (Catheter) 0 / 0 300 / 300 Purwick 0 / 0 300 / 300 Other: # Bowel Movements 0 Weight 92.1 kg 91.8 kg Patient Weight 05/03/24 23:59 Weight 91.8 kg Const General: cooperative and comfortable Orientation: oriented x3 HEENT Head: normal to inspection Ears: hearing grossly normal bilaterally Mouth: oral mucosae normal Eyes General: appearance normal, both eyes and all related structures Neck Neck: normal visual inspection Chest Chest palpation & inspection: normal inspection of the chest Resp Effort & Inspection: normal respiratory effort and cough Cardio Rate: regular rate Rhythm: regular rhythm GI Inspection: normal to inspection Palpation: soft and nontender Auscultation: normal bowel sounds Skin General: no rashes or lesions noted Neuro General: patient oriented x3 Extrem General: normal to inspection Results - Infectious Disease Labs 05/03/24 04:45 05/03/24 04:45 Labs: 05/03/24 04:45: Corrected WBC 11.4 H, BUN 26 H, Creatinine 0.79 05/02/24 10:45 Urine Color Yellow Urine Appearance Cloudy A Urine pH 6.0 Ur Specific [place] 1.024 Urine Protein 30 H Urine Glucose (UA) Normal Urine Ketones 2+ H Urine Occult Blood 2+ H Urine Nitrite Negative Urine Bilirubin Negative Urine Urobilinogen 4 H Ur Leukocyte Esterase 4+ H Urine RBC 50-100 H Urine WBC Innumerable H Urine WBC Clumps Occasional H Ur Squamous Epith Cells 1-2 Ur Transition Epith Cell 1-2 H Urine Bacteria 1+ H Hyaline Casts None Urine Mucus 1+ A Microbiology Results Microbiology Narrative: 05/02/24 10:45 Urine Culture - Preliminary Urine - Clean-Voided Midstream Possible Enterococcus Species Organism 1 Possible Enterococcus Species [place] Count 20,000 CFU/ml 05/02/24 10:20 Blood Culture - Preliminary Blood - Left Hand Strep agalactiae - (group b) 05/02/24 10:15 Blood Culture - Preliminary Blood - Left Antecubital Strep agalactiae - (group b) Bacterial ID (NA Multiplex Assay) - Final 05/02/24 10:40 Respiratory Panel (PCR) - Final Nasopharyngeal A&P - Infectious Disease (1) Bacteremia due to group B Streptococcus: (2) Sepsis: (3) Altered mental status: Plan Patient empirically given vancomycin and Zosyn but narrowed to ceftriaxone. Group B strep in the bloodstream does not necessarily match the Enterococcus in his urine. His UA was quite abnormal but only 20,000 colonies to date in his urine culture. Source of group B strep in question. Chest x-ray isclear. Favor CT scan abdomen pelvis just for further evaluation along with repeating blood culturesfor initial plan. Documented By: Moris Younger MD 05/03/24 1223 Signed By: 05/03/[address] [facility]12-24-2024 [place] [address] Hospitalist Progress Note Signed Patient: Juan Simon MR#: [id number] : 1955 Acct:[id number] Age/Sex: 68 / M Adm Date: 4 Loc: Room: [address] [place] [address] Type: ADM IN Attending Dr: Skyler Sanchez MD Copies to: ~ Date of Service: 05/03/2024 Subjective Subjective Narrative: 68M with PMH of Asthma, celiac disease, DJD and chronic back pain s/p spinal cord stimulator and nerve ablations, frequent Falls, migraines, MANUEL who presented with AMS and admitted for the evaluationand treatment of Afib RVR andcirculatory shock Assessment And Plan Circulatory shock He was given a total of multiple dose of metoprolol to control his Afib RVR . then he developed hypotension. he was given 3L of IVF. he was started on Levophed. Lactic wnl . he was admitted to the ICU Pulmonary consult for critical care management recommendation appreciated Levophed is off Sepsis Strep Bacteremia Hypotension noted in the ED with tachycardia and mild leukocytosis. he had feverup to 39.5C. he wasstarted on broad spectrum IV antibiotics Lactric acid wnl CXR ED shows no acute cardiopulmonary abnormality Respiratory (Upper) Panel, PCR negative Blood CX Strep agalactiae urinalysis show any pyuria urine Cx shows Possible Enterococcus Species ID consult (d/w Dr. younger) Agree with change to Ceftriaxone Acute toxic-metabolic encephalopathy the patient presents with acute confusional state and behavior changes noted by his Urine Tox screen is positive for amphetamine CT brain shows no acute intracranial process Ammonia wnl ABG shows no hypercapnia Could be due to the current infection Favor consulting neurology supportive and treatment of the underlying condition Newly diagnosed Paroxysmal Afib with RVR back to afib , rate controlled the patient was found to have Afib RVR in the ED with heart rate up to 150s and received multiple doses of metoprolol IV. he converted to NSR in the ED EKG ED 9:45 am (i personally reviewed) shows Afib @ 146 bpm without significantacute changes. EKG 3:20 pm shows NSR No significant electrolyte Abnormality, Mg 1.8 (replaced) TSH in EMR wnl Telemetry Correct electrolyte abnormality if any Echocardiogram Cardiology consult Elevated Troponin Type II MD Troponin was found incidentally to be mildly elevated above normal limits 106 upto 311 . There is no chest pain, nor significant EKG changes. This is likely type 2 myocardial infarction secondary to ischemia due to increased oxygen demand and/or decreased supply in the setting of tachycardia . Troponin will be repeated. Further workup, if needed, can be done in an outpatient setting. INTERVAL HPI:?As Above, Pt resting in bed. still confused per Chronic diseases:?Unless mentioned Above, Essential home medications have been continued.? DVT Px:?Addressed Disposition:?To be determined Plan of care Discussed with:?the medical team, the patient at bedside Exam Physical Exam Vital Signs: Temp Pulse Resp BP Pulse Ox O2 Del Method O2 Flow Rate 37.3 C H 98 22 94/57 L 99 Nasal Cannula 2 05/03/24 04:00 05/03/24 06:00 05/03/24 06:00 05/03/24 06:00 05/03/24 09:31 05/03/24 09:31 05/03/24 09:31 Narrative: GEN: not fully Cooperative, Not in acute distress. NECK: Supple, ? JVD LUNGS: CTA CV: S1S2 nl, 2/6 systolic murmur ABD: Soft, ND, NT, + BS, ? HSM EXT: No edema in LE bilaterally, no calf muscle tenderness. NEURO: generalized weakness confused move all his exterminates , tremor in his hands PSYCH: flat affect, nl speech, AOx1-2. Objective Lab Results 05/03/24 04:45 05/03/24 04:45 Microbiology Results Microbiology 05/02/24 10:45 Urine - Clean-Voided Midstream Urine Culture - Preliminary Possible Enterococcus Species 05/02/24 10:20 Blood - Left Hand Blood Culture - Preliminary Strep agalactiae - (group b) 05/02/24 10:15 Blood - Left Antecubital Blood Culture - Preliminary Strep agalactiae - (group b) 05/02/24 10:15 Blood - Left Antecubital Bacterial ID (NA Multiplex Assay) - Final 05/02/24 10:40 Nasopharyngeal Respiratory Panel (PCR) - Final Meds Allergies and Active Meds Allergies gluten Allergy (Unknown, Verified 05/02/24 09:54) Unknown Reaction Active Meds: Active Medications Generic Name Dose Route Start Last Admin Trade Name Freq PRN Reason Stop Dose Admin Acetaminophen 650 mg 05/02/24 17:28 Acetaminophen 325 Mg Tablet PO 05/02/25 17:27 Q6H PRN Pain 1-5 or fever Albuterol 2.5 mg 05/02/24 17:27 Albuterol Neb 2.5 Mg/3 Ml Vial.Neb INHALATION 05/02/25 17:26 Q2H PRN shortness of breath or wheezing Budesonide/Formoterol Fumarate 2 puff 05/02/24 21:00 05/03/24 09:30 Budesonide/Formoterol 160-4.5 Mcg 60 Puff/6 Gm Hfa.Aer.Ad INHALATION 05/02/25 20:59 2 puff BID EDIE Administration Ceftriaxone Sodium 2 gm 05/03/24 11:00 Ceftriaxone 2 Gm/20 Ml Syringe IV-PUSH DAILY@1100 EDIE Divalproex Sodium 500 mg 05/02/24 22:00 05/02/24 21:14 Divalproex Sodium 500 Mg Tablet. PO 05/02/25 21:59 500 mg HS EDIE Administration Doxepin HCl 25 mg 05/02/24 22:00 05/02/24 21:14 Doxepin 25 Mg Capsule PO 05/02/25 21:59 25 mg HS EDIE Administration Duloxetine HCl 30 mg 05/02/24 21:00 05/03/24 09:22 Duloxetine 30 Mg Capsule. PO 05/02/25 20:59 30 mg BID EDIE Administration Heparin Sodium (Porcine) 5,000 unit 05/02/24 18:30 05/03/24 09:38 Heparin 5,000 Unit/Ml Vial SUBCUT 05/02/25 18:29 5,000 unit BID EDIE Administration Norepinephrine Bitartrate 16 mg in 250 mls @ 4.688 mls/hr 05/02/24 14:15 05/03/24 02:20 Levophed IV 05/02/25 14:14 0 mcg/min .Q24H EDIE 0 mls/hr Infusion Protocol 5 MCG/MIN Sodium Chloride 500 mls @ 1 mls/hr 05/03/24 01:27 05/03/24 02:42 0.9% Sodium Chloride 500 Ml INTRA-ISREAL 05/03/25 01:26 1 mls/hr ONCE PRN Administration CVP Montelukast Sodium 10 mg 05/02/24 22:00 05/02/24 21:14 Montelukast 10 Mg Tablet PO 05/02/25 21:59 10 mg HS EDIE Administration Sodium Chloride 0 ml 05/02/24 09:53 05/02/24 15:46 Sodium Chloride 0.9 % 10 Ml Syringe IV-PUSH 05/02/25 09:52 10 ml PRN PRN Administration Flush A&P - Hospitalist Assessment/Plan (1) Atrial fibrillation with rapid ventricular response: Plan Documented By: Skyler Sanchez MD 05/03/24 1210 Signed By: 05/03/[address] [facility]12-24-2024 [place] [address] Pulmonology Consult Note Signed Patient: Juan Simon MR#: [id number] : 1955 Acct:[id number] Age/Sex: 68 / M Adm Date: 4 Loc: Room: [address] [place] [address] Type: ADM IN Attending Dr: Skyler Sanchez MD Copies to: MD Tatiana Seth Jr, DO Skyler Sanchez MD~ HPI Date/Time of Consultation: Date of Service: 05/03/2024 Time of Service: 07:56 Consulting Provider: Jimmy Matias Requesting Provider: Skyler Sanchez History of Present Illness History of present illness: Mr. Simon is a 68 year old male seen at the request of the hospitalist service for ICU management. Patient presented to the emergency department with 2 to 3 days of cough followed by fever and mental status change/confusion. Evaluation in the emergency department included fever to 103.1 ?F with tachycardia with laboratory values revealing leukocytosis. Patient was started on vancomycin and Zosyn. Patient suddenly developed atrial fibrillation with rapid ventricular response with patient developing hypotension with patient fluid resuscitated and given IV metoprolol and subsequently initiated on norepinephrine. Patient had right internal jugular central venous catheter placed and patient was placed on norepinephrine. Urinalysis does reveal evidence of possible urinary tract infection with innumerable white blood cells and 4+ leukocyte esterase and bacteria noted. Initial blood culturehas subsidyrevealed group B strep with patient having prior history of ampicillin sensitiveEnterococ cus in the urine in December 2023 with sputum positive for MSSA in December2023. Patient is admitted tothe ICU with norepinephrine weaned off. Urine culture is pending. Review of Systems Review of Systems All other systems reviewed & are negative unless noted below or in HPI [facility] Medical History Back pain with history of spinal surgery Back injuries T-cell lymphoma Remission. FHx: cholecystectomy Celiac disease Surgical History H/O laminectomy Family History Father Grandparent Legacy FamHx Relation: Maternal Grand Father Family history of colon cancer Legacy FamHx Relation: Maternal Grand Father Grandparent Legacy FamHx Relation: Maternal Grand Mother Grandparent Legacy FamHx Relation: Paternal Grand Father Grandparent Legacy FamHx Relation: Paternal Grand Mother Mother Cancer Legacy FamHx Problem: Diagnosed with Cancer Family history of pancreatic cancer Social History Smoking Status: Never smoker Substance Use Type: None Meds Medications and Allergies Allergies gluten Allergy (Unknown, Verified 05/02/24 09:54) Unknown Reaction Home Medications albuterol sulfate 2.5 mg/3 mL (0.083 %) solution for nebulization 2.5 mg inhalation Q2H PRN shortness of breath or wheezing 02/11/17 [History Confirmed 01/10/24] albuterol sulfate 90 mcg/actuation aerosol inhaler (Proventil HFA) 2 puff inhalation Q2H PRN shortness of breath or wheezing 02/11/17 [History Confirmed 05/02/24] atenolol 25 mg tablet 25 mg PO DAILY 02/11/17 [History Confirmed 05/02/24] cyclobenzaprine 10 mg tablet 10 mg PO TID 02/11/17 [History Confirmed 05/02/24] divalproex 250 mg tablet,delayed release 500 mg PO HS 02/11/17 [History Confirmed 05/02/24] fluticasone 500 mcg-salmeterol 50 mcg/dose blistr powdr for inhalation 1 inh inhalation BID 02/11/17 [History Confirmed 05/02/24] indomethacin 25 mg capsule 25 mg PO .QD 02/11/17 [History Confirmed 01/10/24] montelukast 10 mg tablet 10 mg PO HS 02/11/17 [History Confirmed 05/02/24] celecoxib 200 mg capsule 200 mg PO DAILY 12/27/23 [History Confirmed 05/02/24] doxepin 25 mg capsule 25 mg PO HS 12/27/23 [History Confirmed 05/02/24] duloxetine 30 mg capsule,delayed release 30 mg PO BID 12/27/23 [History Confirmed 05/02/24] meclizine 25 mg tablet 25 mg PO TID PRN dizziness 12/27/23 [History Confirmed 05/02/24] phentermine 37.5 mg tablet 37.5 mg PO DAILY 12/27/23 [History Confirmed 05/02/24] nystatin 100,000 unit/mL oral suspension 400,000 unit (4 mL) PO QID 7 days #112 mL 12/29/23 [Rx Confirmed 05/02/24] Exam Physical Exam Vital Signs: Temp Pulse Resp BP Pulse Ox O2 Del Method O2 Flow Rate 99.1 F H 98 22 94/57 L 96 Nasal Cannula 2 05/03/24 04:00 05/03/24 06:00 05/03/24 06:00 05/03/24 06:00 05/03/24 06:00 05/03/24 06:00 05/03/24 06:00 Const General: cooperative Orientation: alert, awake, not oriented x3, oriented to person, oriented to place and not oriented to time HEENT Head: normal to inspection Ears: hearing grossly normal bilaterally and external ears normal Nose: external nose normal Face and sinus: normal facial exam Eyes Sclera: sclerae normal Neck Neck: normal visual inspection Resp Effort & Inspection: normal respiratory effort Auscultation: clear to auscultation bilaterally, diminished lung sounds, no rales, no rhonchi and no wheezes Cardio Rate: regular rate Rhythm: regular rhythm Heart Sounds: S1 normal, S2 normal and no murmurs GI Inspection: normal to inspection Palpation: soft and nontender General: deferred Skin General: no rashes or lesions noted (Warm and dry) Extrem General: no pedal edema Results - Pulmonology Intake and Output I&O - Last 24 Hours: Intake & Output 05/02/24 05/02/24 05/03/24 15:59 23:59 07:59 Intake Total 3600 / 3820 220 / 3820 200 / 200 Output Total 0 / 0 300 / 300 Balance 3600 / 3820 220 / 3820 -100 / -100 Weight 93 kg 92.1 kg 91.8 kg Labs 05/03/24 04:45 05/03/24 04:45 Microbiology Micro: 05/02/24 10:15 Blood Culture - Preliminary Blood - Left Antecubital Strep agalactiae - (group b) Bacterial ID (NA Multiplex Assay) - Final 05/02/24 10:20 Blood Culture - Preliminary Blood - Left Hand 05/02/24 10:40 Respiratory Panel (PCR) - Final Nasopharyngeal 05/02/24 10:45 Urine Culture - Pending Urine - Clean-Voided [facility]iology Chest x-ray: Status: image reviewed by me Additional comments: Date of Service: 05/02/24 XR/XR chest 1V portable: Chest Pain SINGLE VIEW CHEST CLINICAL HISTORY: Cough confusion fever Central line placement COMPARISON: Chest 05/02/2024 FINDINGS: New right-sided IJ line tip at the brachiocephalic/SVC junction. Heart and mediolateral structures appear unchanged. Nodule involving the right upper lobe is unchanged. No pneumothorax pleural effusion or free air. XR/XR chest 1V portable IMPRESSION: RIGHT-SIDED IJ LINE TIP AT THE BRACHIOCEPHALIC/SVC JUNCTION. NO PNEUMOTHORAX. Assessment/Plan (1) Sepsis: (2) Atrial fibrillation with rapid ventricular response: (3) Urinary tract infection: (4) Bacteremia due to Streptococcus: Plan Hospital day #1 for patient with presumed urinary tract infection with group B strep bacteremia andsepsis * Patient has no prior history of resistant organisms with most recent hospitalization in December 2023 for COVID. Will discontinue vancomycin and change Zosyn to ceftriaxone 2 g IV daily given positive blood cultures for group B strep x 2 with only 20,000 CFU of Enterococcus in the urine * Volume resuscitate as needed with pressors discontinued * Supportive care Documented By: Jimmy Matias MD [id number] Signed By: 05/03/[address] [facility]12-24-2024 Evaluation note* Diagnosis Onset Date Resolution Status Admit Date Acute and chronic respirator y failure acute May 03, 10:13am Acute hypoxic respiratory failure acute May 03 10:13am Altered mental status acute Apr 10:13am Atrial fibrillation with rap id ventricular response acute May 032023 10:13am Bacteremia due to group B Streptococcus acute May 03, 10:13am Bacteremia due to Streptococcus acut e May 03, 2024 10:13am Community acquired pneumonia acute May 03, 2024 10:13am Counseling regarding advance directives and goals of care acute Apr 10:13am Pneumonia acute May 03, 2024 10:13am Sepsis acute May 03, 2024 10:13am Urinary tract infection acute D ec2023 10:13am [facility] Work Phone: 1(292) 566-206912-24-2024 History and physical note Author Skyler Sanchez [facility] Note Date/Time May 03, 2024 1:42am [facility] [address] [place] [address] Hospitalist H&P Signed Patient: Juan Simon MR#: [id number] : 1955 Acct:[id number] Age/Sex: 68 / M Adm Date: 4 Loc: Room: 7Z1393-2 Type: ADM IN Attending Dr: Skyler Sanchez MD Copies to: Tatiana Benson Jr, DO Skyler Sanchez MD~ HPI DATE OF EXAMINATION: 05/02/24 HISTORY OF PRESENT ILLNESS: This is a pleasant 68M with PMH of Asthma, celiac disease, DJD and chronic back pain s/p spinal cord stimulator and nerve ablations, frequent Falls, migraines, MANUEL who presented with AMS and admitted for the evaluation and treatment of AfibRVR and circulatory shock The patient's noted cough, change in behavior, and confusion over the weekend. He has been coming out of the room with no clothes. He reported fallingat home; however, his said that was a long time ago. He has no history of Afib in the past. No fever or chills. Last month, he was evaluated by [facility] [place] [facility] (Dr. Castle)for frequent falls, headaches,tremor, and memory loss. He was found with mild cognitive impairment. Frequent falls contributed to suspected orthostatic hypotension (poor food intake), lumbar disc disease, peripheral neuropathy, arthritis, and medication side effects. ROS: denies any pain Assessment And Plan Circulatory shock He was given a total of multiple dose of metoprolol to control his Afib RVR . then he developed hypotension. he was given 3L of IVF. he was started on Levophed. Lactic wnl . he was admited to the ICU Pulmonary consult for critical care management Possible Sepsis Hypotension noted in the ED with tachycardia and mild leukocytosis CXR ED shows no acute cardiopulmonary abnormality Respiratory (Upper) Panel, PCR negative Blood CX pending urinalysis show any pyuria The patient received around 3 L of IVF in the ED. he was reevaluated after givenIVF within 6 hours: the Capillary refill is more than 3 seconds, Pulses presentbilaterally and Skin normal for ethnicity. repeat lactate level was done I can?t rule out a new infection. he was started empirically on broad spectrum IV antibiotics with Zosyn and Vancomycin Acute toxic-metabolic encephalopathy the patient presents with acute confusional state and behavior changes noted by his Urine Tox screen is positive for amphetamine CT brain shows no acute intracranial process Ammonia wnl ABG shows no hypercapnia Could be due to the current infection Favor consulting neurology supportive and treatment of the underlying condition Newly diagnosed Paroxysmal Afib with RVR the patient was found to have Afib RVR in the ED with heart rate up to 150s and received multiple doses of metoprolol IV. he converted to NSR in the ED EKG ED 9:45 am (i personally reviewed) shows Afib @ 146 bpm without significantacute changes. EKG 3:20 pm shows NSR No significant electrolyte Abnormality, will check Mg TSH in EMR wnl Telemetry Correct electrolyte abnormality if any Echocardiogram Cardiology consult Elevated Troponin Type II MD Troponin was found incidentally to be mildly elevated above normal limits. Thereis no chest pain, nor significant EKG changes. This is likely type 2 myocardial infarction secondary to ischemia due to increased oxygen demand and/or decreasedsupply in the setting of tachycardia . Troponin will be repeated. Further workup, if needed, can be done in an outpatient setting. Chronic diseases:?Unless mentioned Above, Essential home medications have been continued.? DVT Px:?Addressed Code Status: FULL Plan of care Discussed with:?the medical team, the patient PMFSH Medical History Back pain with history of spinal surgery Back injuries T-cell lymphoma Remission. FHx: cholecystectomy Celiac disease Surgical History H/O laminectomy Family History Father Grandparent Legacy FamHx Relation: Maternal Grand Father Family history of colon cancer Legacy FamHx Relation: Maternal Grand Father Grandparent Legacy FamHx Relation: Maternal Grand Mother Grandparent Legacy FamHx Relation: Paternal Grand Father Grandparent Legacy FamHx Relation: Paternal Grand Mother Mother Cancer Legacy FamHx Problem: Diagnosed with Cancer Family history of pancreatic cancer Social History Smoking Status: Never smoker Substance Use Type: None Meds Medications and Allergies Allergies gluten Allergy (Unknown, Verified 05/02/24 09:54) Unknown Reaction Home Medications albuterol sulfate 2.5 mg/3 mL (0.083 %) solution for nebulization 2.5 mg inhalation Q2H PRN shortness of breath or wheezing 02/11/17 [History Confirmed 01/10/24] albuterol sulfate 90 mcg/actuation aerosol inhaler (Proventil HFA) 2 puff inhalation Q2H PRN shortness of breath or wheezing 02/11/17 [History Confirmed 05/02/24] atenolol 25 mg tablet 25 mg PO DAILY 02/11/17 [History Confirmed 05/02/24] cyclobenzaprine 10 mg tablet 10 mg PO TID 02/11/17 [History Confirmed 05/02/24] divalproex 250 mg tablet,delayed release 500 mg PO HS 02/11/17 [History Confirmed 05/02/24] fluticasone 500 mcg-salmeterol 50 mcg/dose blistr powdr for inhalation 1 inh inhalation BID 02/11/17 [History Confirmed 05/02/24] indomethacin 25 mg capsule 25 mg PO .QD 02/11/17 [History Confirmed 01/10/24] montelukast 10 mg tablet 10 mg PO HS 02/11/17 [History Confirmed 05/02/24] celecoxib 200 mg capsule 200 mg PO DAILY 12/27/23 [History Confirmed 05/02/24] doxepin 25 mg capsule 25 mg PO HS 12/27/23 [History Confirmed 05/02/24] duloxetine 30 mg capsule,delayed release 30 mg PO BID 12/27/23 [History Confirmed 05/02/24] meclizine 25 mg tablet 25 mg PO TID PRN dizziness 12/27/23 [History Confirmed 05/02/24] phentermine 37.5 mg tablet 37.5 mg PO DAILY 12/27/23 [History Confirmed 05/02/24] nystatin 100,000 unit/mL oral suspension 400,000 unit (4 mL) PO QID 7 days #112 mL 12/29/23 [Rx Confirmed 05/02/24] Exam Physical Exam Vital Signs: Temp Pulse Resp BP Pulse Ox O2 Del Method O2 Flow Rate 36.3 C L 97 20 102/67 95 Nasal Cannula 2 05/02/24 16:47 05/02/24 17:18 05/02/24 16:47 05/02/24 17:18 05/02/24 16:47 05/02/24 16:47 05/02/24 16:47 Narrative: GEN: not fully Cooperative, Not in acute distress. NECK: Supple, ? JVD LUNGS: CTA. normal respiratory effort. CV: S1S2 nl, 2/6 systolic mumur ABD: Soft, ND, NT, + BS, ? HSM EXT: No edema in LE bilaterally, no calf muscle tenderness. NEURO: generalized weakness confused move all his exterminates , tremor in his hands PSYCH: flat affect, nl speech, AOx1-2. Results - Hospitalist H&P Lab Results Labs: Laboratory Last Values Corrected WBC 11.8 X10E3/uL (4.1-10.5) H 05/02/24 10:15 Uncorrected WBC Count 11.8 x10E3/uL (4.1-10.5) H 05/02/24 10:15 RBC 4.36 x10E6/uL (3.90-5.60) 05/02/24 10:15 Hgb 14.2 g/dL (13.0-17.0) 05/02/24 10:15 Hct 42.0 % (38.8-50.0) 05/02/24 10:15 MCV 96.4 fl (83.5-101) 05/02/24 10:15 MCH 32.5 pg (27.5-35.2) 05/02/24 10:15 MCHC 33.7 g/dL (32.5-35.6) 05/02/24 10:15 RDW 15.0 % (12.0-14.8) H 05/02/24 10:15 Plt Count 159 x10E3/uL (150-450) 05/02/24 10:15 MPV 7.5 fl (6.6-10.1) 05/02/24 10:15 Neut % (Auto) 89.7 % (.) 05/02/24 10:15 Lymph % (Auto) 5.4 % (.) 05/02/24 10:15 [place] % (Auto) 4.6 % (.) 05/02/24 10:15 Eos % (Auto) 0.1 % (.) 05/02/24 10:15 Baso % (Auto) 0.2 % (.) 05/02/24 10:15 Nucleat RBC Rel Count 0.0 /100 WBC (0-0.5) 05/02/24 10:15 Neut # (Auto) 10.6 x10E3/uL (1.8-7.7) H 05/02/24 10:15 Lymph # (Auto) 0.6 x10E3/uL (1.00-4.8) L 05/02/24 10:15 [place] # (Auto) 0.5 x10E3/uL (0.0-0.8) 05/02/24 10:15 Eos # (Auto) 0.0 x10E3/uL (0.0-0.45) 05/02/24 10:15 Baso # (Auto) 0.0 x10E3/uL (0.0-0.2) 05/02/24 10:15 Monocyte Dist Width 30.23 % (0.00-20.00) H 05/02/24 10:15 Toxic Granulation Slight 05/02/24 10:15 Toxic Vacuolation Moderate 05/02/24 10:15 Platelet Estimate Normal (Normal) 05/02/24 10:15 Plt Morphology Comment Normal (Normal) 05/02/24 10:15 RBC Morphology Normal (Normal) 05/02/24 10:15 PT 14.9 Seconds (9.0-12.9) H 05/02/24 10:15 INR 1.3 05/02/24 10:15 APTT 28.3 Seconds (25.1-36.5) 05/02/24 10:15 Sample Site Left radial 05/02/24 13:41 ABG pH 7.40 (7.35-7.45) 05/02/24 13:41 ABG pCO2 30.1 mmHg (35.0-45.0) L 05/02/24 13:41 ABG pO2 68.0 mmHg (80.0-100.0) L 05/02/24 13:41 ABG HCO3 18.1 mmol/L (23.0-29.0) L 05/02/24 13:41 ABG Total CO2 19.1 mmol/L (23.0-27.0) L 05/02/24 13:41 ABG O2 Saturation 93.5 % (95.0-100.0) L 05/02/24 13:41 ABG O2 Content 7.1 mmol/L (6.6-9.7) 05/02/24 13:41 ABG Base Excess -5.6 mmol/L (-3.0-3.0) L 05/02/24 13:41 VBG pH 7.37 (7.32-7.43) 05/02/24 13:21 VBG pCO2 37.0 mmHg (38.0-50.0) L 05/02/24 13:21 VBG pO2 < 48.1 mmHg (35.0-45.0) H 05/02/24 13:21 VBG HCO3 21.1 mmol/L (23.0-29.0) L 05/02/24 13:21 VBG Total CO2 22.2 mmol/L (24.0-29.0) L 05/02/24 13:21 VBG O2 Saturation 73.9 % (73.0-76.0) 05/02/24 13:21 VBG Base Excess -3.7 mmol/L (-3.0-3.0) L 05/02/24 13:21 FiO2 21 % 05/02/24 13:41 Critical Value 05/02/24 13:41 PHA Creatinine Clear 70.22 05/02/24 10:15 Sodium 135 mmol/L (136-145) L 05/02/24 10:15 Potassium 3.7 mmol/L (3.5-5.1) 05/02/24 10:15 Chloride 98 mmol/L (98-107) 05/02/24 10:15 Carbon Dioxide 24.6 mmol/L (21.0-31.0) 05/02/24 10:15 Anion Gap 16.1 mEq/L (6.0-15.0) H 05/02/24 10:15 BUN 26 mg/dL (7-25) H 05/02/24 10:15 Creatinine 1.05 mg/dL (0.70-1.30) 05/02/24 10:15 Est GFR (CKD-EPI) > 60.0 mL/Min 05/02/24 10:15 Glucose 77 mg/dL (70-100) 05/02/24 10:15 Lactic Acid 1.3 mmol/L (0.5-2.2) 05/02/24 10:15 Calcium 8.9 mg/dL (8.6-10.3) 05/02/24 10:15 Total Bilirubin 1.5 mg/dl (0.3-1.0) H 05/02/24 10:15 AST 38 U/L (13-39) 05/02/24 10:15 ALT 33 U/L (7-52) 05/02/24 10:15 Alkaline Phosphatase 123 U/L (34-104) H 05/02/24 10:15 Ammonia 24 umol/L (11-35) 05/02/24 10:40 Total Creatine Kinase 328 U/L (30-223) H 05/02/24 10:15 Troponin I High Sens 106.7 pg/mL (0.0-20.0) H* 05/02/24 10:15 Total Protein 6.5 gm/dL (6.4-8.9) 05/02/24 10:15 Albumin 3.6 gm/dL (3.5-5.7) 05/02/24 10:15 Globulin 2.9 gm/dL 05/02/24 10:15 Albumin/Globulin Ratio 1.2 05/02/24 10:15 TSH 3rd Generation 1.87 uIU/mL (0.45-5.33) 05/02/24 10:15 Urine Color Yellow (Yellow) 05/02/24 10:45 Urine Appearance Cloudy (Clear) A 05/02/24 10:45 Urine pH 6.0 (5.0-9.0) 05/02/24 10:45 Ur Specific [place] 1.024 (1.001-1.030) 05/02/24 10:45 Urine Protein 30 mg/dL (Negative) H 05/02/24 10:45 Urine Glucose (UA) Normal mg/dL (Normal) 05/02/24 10:45 Urine Ketones 2+ (Negative) H 05/02/24 10:45 Urine Occult Blood 2+ (Negative) H 05/02/24 10:45 Urine Nitrite Negative (Negative) 05/02/24 10:45 Urine Bilirubin Negative (Negative) 05/02/24 10:45 Urine Urobilinogen 4 mg/dL (Normal) H 05/02/24 10:45 Ur Leukocyte Esterase 4+ (Negative) H 05/02/24 10:45 Urine RBC 50-100 /HPF (0-4) H 05/02/24 10:45 Urine WBC Innumerable /HPF (0-4) H 05/02/24 10:45 Urine WBC Clumps Occasional /LPF (None Seen) H 05/02/24 10:45 Ur Squamous Epith Cells 1-2 /HPF (0-2) 05/02/24 10:45 Ur Transition Epith Cell 1-2 /HPF (0-1) H 05/02/24 10:45 Urine Bacteria 1+ /HPF (None Seen) H 05/02/24 10:45 Hyaline Casts None /LPF (0-8) 05/02/24 10:45 Urine Mucus 1+ /LPF A 05/02/24 10:45 Urine Opiates Screen Negative (Negative) 05/02/24 10:45 Ur Barbiturates Screen Negative (Negative) 05/02/24 10:45 Ur Phencyclidine Scrn Negative (Negative) 05/02/24 10:45 Ur Amphetamines Screen Positive (Negative) H 05/02/24 10:45 U Benzodiazepines Scrn Negative (Negative) 05/02/24 10:45 Urine Cocaine Screen Negative (Negative) 05/02/24 10:45 U Marijuana (THC) Screen Negative (Negative) 05/02/24 10:45 Ethyl Alcohol < 10 mg/dL 05/02/24 10:15 % Ethyl Alcohol TNP 05/02/24 10:15 COVID-19 Clin Com Not detected (Not Detecte) 05/02/24 10:40 Microbiology Results Micro: Microbiology - Results from entire visit 05/02/24 10:40 Nasopharyngeal Respiratory Panel (PCR) - Final ABG Interpretation ABG results: 05/02/24 05/02/24 13:21 13:41 ABG pH 7.40 ABG pCO2 30.1 L ABG pO2 68.0 L ABG HCO3 18.1 L ABG Total CO2 19.1 L ABG O2 Saturation 93.5 L ABG O2 Content 7.1 ABG Base Excess -5.6 L VBG pH 7.37 VBG pCO2 37.0 L VBG pO2 < 48.1 H VBG HCO3 21.1 L VBG Total CO2 22.2 L VBG O2 Saturation 73.9 VBG Base Excess -3.7 L Assessment & Plan Assessment/Plan (1) Atrial fibrillation with rapid ventricular response: Plan IP vs OBS Justification Based on differential dx, clinical care plan, and risk of adverse events, if untreated, in my clinical judgement this patient requires an acute care setting as: INPATIENT because of an expectation of an over 2 midnight stay. Estimated length of stay (# of days): 3 Documented By: Skyler Sanchez MD 05/02/24 7262 Signed By: <Electronically signed by Skyler Sanchez MD> 05/03/24 0142 [facility] Work Phone: 1([phone]) 788-588712-24-2024 [place] [address] Hospitalist H&P Signed Patient: Juan Simon MR#: [id number] : 1955 Acct:[id number] Age/Sex: 68 / M Adm Date: 4 Loc: Room: [address] [place] [address] Type: ADM IN Attending Dr: Skyler Sanchez MD Copies to: Tatiana Benson Jr, DO Skyler Sanchez MD~ HPI DATE OF EXAMINATION: 05/02/24 HISTORY OF PRESENT ILLNESS: This is a pleasant 68M with PMH of Asthma, celiac disease, DJD and chronic back pain s/p spinal cord stimulator and nerve ablations, frequent Falls, migraines, MANUEL who presented with AMS and admittedfor the evaluation and treatment of AfibRVR and circulatory shock The patient's noted cough, change in behavior, and confusion over the weekend. He has been coming out of the room with no clothes. He reported fallingat home; however, his said that was a long time ago. He has no history of Afib in the past. No fever or chills. Last month, he was evaluated by [facility] [place] (Dr. Castle)for frequent falls,headaches,tremor, and memory loss. He was found with mild cognitive impairment. Frequent falls contributed to suspected orthostatic hypotension (poor food intake), lumbar disc disease, peripheral neuropathy, arthritis, and medication side effects. ROS: denies any pain Assessment And Plan Circulatory shock He was given a total of multiple dose of metoprolol to control his Afib RVR . then he developed hypotension. he was given 3L of IVF. he was started on Levophed. Lactic wnl . he was admited to the ICU Pulmonary consult for critical care management Possible Sepsis Hypotension noted in the ED with tachycardia and mild leukocytosis CXR ED shows no acute cardiopulmonary abnormality Respiratory (Upper) Panel, PCR negative Blood CX pending urinalysis show any pyuria The patient received around 3 L of IVF in the ED. he was reevaluated after givenIVF within 6 hours:the Capillary refill is more than 3 seconds, Pulses presentbilaterally and Skin normal for ethnicity. repeat lactate level was done I can?t rule out a new infection. he was started empirically on broad spectrum IV antibiotics with Zosyn and Vancomycin Acute toxic-metabolic encephalopathy the patient presents with acute confusional state and behavior changes noted by his Urine Tox screen is positive for amphetamine CT brain shows no acute intracranial process Ammonia wnl ABG shows no hypercapnia Could be due to the current infection Favor consulting neurology supportive and treatment of the underlying condition Newly diagnosed Paroxysmal Afib with RVR the patient was found to have Afib RVR in the ED with heart rate up to 150s and received multiple doses of metoprolol IV. he converted to NSR in the ED EKG ED 9:45 am (i personally reviewed) shows Afib @ 146 bpm without significantacute changes. EKG 3:20 pm shows NSR No significant electrolyte Abnormality, will check Mg TSH in EMR wnl Telemetry Correct electrolyte abnormality if any Echocardiogram Cardiology consult Elevated Troponin Type II MD Troponin was found incidentally to be mildly elevated above normal limits. Thereis no chest pain, nor significant EKG changes. This is likely type 2 myocardial infarction secondary to ischemia due toincreased oxygen demand and/or decreasedsupply in the setting of tachycardia . Troponin will be repeated. Further workup, if needed, can be done in an outpatient setting. Chronic diseases:?Unless mentioned Above, Essential home medications have been continued.? DVT Px:?Addressed Code Status: FULL Plan of care Discussed with:?the medical team, the patient [facility] Medical History Back pain with history of spinal surgery Back injuries T-cell lymphoma Remission. FHx: cholecystectomy Celiac disease Surgical History H/O laminectomy Family History Father Grandparent Legacy FamHx Relation: Maternal Grand Father Family history of colon cancer Legacy FamHx Relation: Maternal Grand Father Grandparent Legacy FamHx Relation: Maternal Grand Mother Grandparent Legacy FamHx Relation: Paternal Grand Father Grandparent Legacy FamHx Relation: Paternal Grand Mother Mother Cancer Legacy FamHx Problem: Diagnosed with Cancer Family history of pancreatic cancer Social History Smoking Status: Never smoker Substance Use Type: None Meds Medications and Allergies Allergies gluten Allergy (Unknown, Verified 05/02/24 09:54) Unknown Reaction Home Medications albuterol sulfate 2.5 mg/3 mL (0.083 %) solution for nebulization 2.5 mg inhalation Q2H PRN shortness of breath or wheezing 02/11/17 [History Confirmed 01/10/24] albuterol sulfate 90 mcg/actuation aerosol inhaler (Proventil HFA) 2 puff inhalation Q2H PRN shortness of breath or wheezing 02/11/17 [History Confirmed 05/02/24] atenolol 25 mg tablet 25 mg PO DAILY 02/11/17 [History Confirmed 05/02/24] cyclobenzaprine 10 mg tablet 10 mg PO TID 02/11/17 [History Confirmed 05/02/24] divalproex 250 mg tablet,delayed release 500 mg PO HS 02/11/17 [History Confirmed 05/02/24] fluticasone 500 mcg-salmeterol 50 mcg/dose blistr powdr for inhalation 1 inh inhalation BID 02/11/17 [History Confirmed 05/02/24] indomethacin 25 mg capsule 25 mg PO .QD 02/11/17 [History Confirmed 01/10/24] montelukast 10 mg tablet 10 mg PO HS 02/11/17 [History Confirmed 05/02/24] celecoxib 200 mg capsule 200 mg PO DAILY 12/27/23 [History Confirmed 05/02/24] doxepin 25 mg capsule 25 mg PO HS 12/27/23 [History Confirmed 05/02/24] duloxetine 30 mg capsule,delayed release 30 mg PO BID 12/27/23 [History Confirmed 05/02/24] meclizine 25 mg tablet 25 mg PO TID PRN dizziness 12/27/23 [History Confirmed 05/02/24] phentermine 37.5 mg tablet 37.5 mg PO DAILY 12/27/23 [History Confirmed 05/02/24] nystatin 100,000 unit/mL oral suspension 400,000 unit (4 mL) PO QID 7 days #112 mL 12/29/23 [Rx Confirmed 05/02/24] Exam Physical Exam Vital Signs: Temp Pulse Resp BP Pulse Ox O2 Del Method O2 Flow Rate 36.3 C L 97 20 102/67 95 Nasal Cannula 2 05/02/24 16:47 05/02/24 17:18 05/02/24 16:47 05/02/24 17:18 05/02/24 16:47 05/02/24 16:47 05/02/24 16:47 Narrative: GEN: not fully Cooperative, Not in acute distress. NECK: Supple, ? JVD LUNGS: CTA. normal respiratory effort. CV: S1S2 nl, 2/6 systolic mumur ABD: Soft, ND, NT, + BS, ? HSM EXT: No edema in LE bilaterally, no calf muscle tenderness. NEURO: generalized weakness confused move all his exterminates , tremor in his hands PSYCH: flat affect, nl speech, AOx1-2. Results - Hospitalist H&P Lab Results Labs: Laboratory Last Values Corrected WBC 11.8 X10E3/uL (4.1-10.5) H 05/02/24 10:15 Uncorrected WBC Count 11.8 x10E3/uL (4.1-10.5) H 05/02/24 10:15 RBC 4.36 x10E6/uL (3.90-5.60) 05/02/24 10:15 Hgb 14.2 g/dL (13.0-17.0) 05/02/24 10:15 Hct 42.0 % (38.8-50.0) 05/02/24 10:15 MCV 96.4 fl (83.5-101) 05/02/24 10:15 MCH 32.5 pg (27.5-35.2) 05/02/24 10:15 MCHC 33.7 g/dL (32.5-35.6) 05/02/24 10:15 RDW 15.0 % (12.0-14.8) H 05/02/24 10:15 Plt Count 159 x10E3/uL (150-450) 05/02/24 10:15 MPV 7.5 fl (6.6-10.1) 05/02/24 10:15 Neut % (Auto) 89.7 % (.) 05/02/24 10:15 Lymph % (Auto) 5.4 % (.) 05/02/24 10:15 [place] % (Auto) 4.6 % (.) 05/02/24 10:15 Eos % (Auto) 0.1 % (.) 05/02/24 10:15 Baso % (Auto) 0.2 % (.) 05/02/24 10:15 Nucleat RBC Rel Count 0.0 /100 WBC (0-0.5) 05/02/24 10:15 Neut # (Auto) 10.6 x10E3/uL (1.8-7.7) H 05/02/24 10:15 Lymph # (Auto) 0.6 x10E3/uL (1.00-4.8) L 05/02/24 10:15 [place] # (Auto) 0.5 x10E3/uL (0.0-0.8) 05/02/24 10:15 Eos # (Auto) 0.0 x10E3/uL (0.0-0.45) 05/02/24 10:15 Baso # (Auto) 0.0 x10E3/uL (0.0-0.2) 05/02/24 10:15 Monocyte Dist Width 30.23 % (0.00-20.00) H 05/02/24 10:15 Toxic Granulation Slight 05/02/24 10:15 Toxic Vacuolation Moderate 05/02/24 10:15 Platelet Estimate Normal (Normal) 05/02/24 10:15 Plt Morphology Comment Normal (Normal) 05/02/24 10:15 RBC Morphology Normal (Normal) 05/02/24 10:15 PT 14.9 Seconds (9.0-12.9) H 05/02/24 10:15 INR 1.3 05/02/24 10:15 APTT 28.3 Seconds (25.1-36.5) 05/02/24 10:15 Sample Site Left radial 05/02/24 13:41 ABG pH 7.40 (7.35-7.45) 05/02/24 13:41 ABG pCO2 30.1 mmHg (35.0-45.0) L 05/02/24 13:41 ABG pO2 68.0 mmHg (80.0-100.0) L 05/02/24 13:41 ABG HCO3 18.1 mmol/L (23.0-29.0) L 05/02/24 13:41 ABG Total CO2 19.1 mmol/L (23.0-27.0) L 05/02/24 13:41 ABG O2 Saturation 93.5 % (95.0-100.0) L 05/02/24 13:41 ABG O2 Content 7.1 mmol/L (6.6-9.7) 05/02/24 13:41 ABG Base Excess -5.6 mmol/L (-3.0-3.0) L 05/02/24 13:41 VBG pH 7.37 (7.32-7.43) 05/02/24 13:21 VBG pCO2 37.0 mmHg (38.0-50.0) L 05/02/24 13:21 VBG pO2 < 48.1 mmHg (35.0-45.0) H 05/02/24 13:21 VBG HCO3 21.1 mmol/L (23.0-29.0) L 05/02/24 13:21 VBG Total CO2 22.2 mmol/L (24.0-29.0) L 05/02/24 13:21 VBG O2 Saturation 73.9 % (73.0-76.0) 05/02/24 13:21 VBG Base Excess -3.7 mmol/L (-3.0-3.0) L 05/02/24 13:21 FiO2 21 % 05/02/24 13:41 Critical Value 05/02/24 13:41 PHA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 Ulcer: LOCATION: dorsal lateral DIPJ joint of 4th left toe THICKNESS: partial STAGE: Marrero grade 1 PREVIOUS MEASUREMENT: was healed PRE DEBRIDEMENT SIZE: Lesion was covered by hyperkeratotic tissue POST DEBRIDEMENT SIZE: lesion appears healed TRACKING: none DRAINAGE: none MALODOR: none BASE: appears healed WOUND EDGES: hyperkeratotic SURROUNDING TISSUE: normal SURROUNDING SOI: none X-RAYS: 05/26/2023: Two views taken left foot revealed mild hammertoe deformities 2 through 5. Milddegenerative arthritis of the midfoot. No evidence of fractures or dislocations. No erosive or destructive process noted at this point that would suggest osteomyelitis. Assessments: 1. Skin ulcer of 4th left toe limited to breakdown of skin - L97.521 2. Hammertoe of left foot - M20.42 Plan: Completed examination. Discussed etiology and treatment options with the patient at length. Patientmay continue to apply adhesive felt corn pad to offload the lesion as he still has discomfort when wearing shoes. They may continue to apply Bactroban to the center of the opening of the pad as a protective measure. We also dispensed silicone tube pad and silicone digital pad for the patient to try and offload the 4th left toe. Patient and are advised to call if symptoms worsen including redness swelling or purulent drainage or if fever or chills develop prior to next visit. We once again discussed proper fitting shoes. It is possible that mechanical irritation may be the reason this lesion has persisted since March. documented in this encounterNortheast [facility] Health [id number] Evaluation + Plan note Extracted from: Title:Pain Managment Follow up Author:Elenita Dawson Date:12/24/22 Impression and Plan Patient is a 67-year-old male. He has a past medical history significant for postlaminectomy syndrome, chronic pain, cervical stenosis, imbalance and chronic lower back pain. At this time, his main concern is the back pain. We had a long discussion about this. At this time, he is off of the gabapentin. I would recommend him to stay off of this. I discussed with patient that prior to making any other medication changes I would like him to follow-up with his PCP to further discuss his falling. He voiced understanding. At this time, he is also going to reach out to the spinal cord stimulator representative personal service to further discuss if he can have the spinal cord stimulator reprogrammed. He states that from his last appointment to now he has not been able to get in touch with them. We will facilitate this. He is going to follow-up in 1 to 2 months. Call the clinic sooner if necessary. OARRS reviewed YOMI score: 60% Future Appointments Appointment Date:01/28/2023 02:00:00 PM Scheduled Provider:Elenita Lazar PA-C Location:.[facility] Appointment Type:Pain Management - Follow Up (FT) [facility]07-19-2023 Evaluation + Plan noteExtracted from: Title:Pain Managment Follow up Author:Elenita Dawson Date:11/26/22 Impression and Plan Patient is a 67-year-old male with a past medical history significant for post laminectomy syndrome, previous lumbar fusion, chronic pain, status post spinal cord stimulator implantation, cervical stenosis, cervical neuritis and lumbar neuritis. At this time, his only complaint is of lower back pain. His radicular symptoms are better but he does not think that the recent caudal epidural steroid injection helped. We also had a long discussion about his spinal cord stimulator. He states that he has been turning it off because he can feel it . I inquired with patient whether or not he is turning it off because it is hurting him or because he feels it. He is not sure. We had a long discussion about had a spinal cord stimulator works and the sensation that he is feeling. He voiced understanding. He is going to reach out to the spinal cord stimulator representative personal service to see if maybe he needs to have a reprogramming done. In regards to the falling he recently had an MRI ordered by his PCP. We reviewed this. I do not see any significant pathology on his imaging to attribute the falling to. I would recommend he follow-up with his PCP for the falling In regards to his medications he is going to discontinue the gabapentin and see how he does without it. They question if maybe the gabapentin is causing him to fall. He has cut it down recently and is still falling but we will have him discontinue it and see how he does. At this time, I would recommend he see his PCP, reach out to the spinal cord stimulator representative personal service for possible reprogramming, and discontinue the gabapentin. Follow-up in a month. Call the clinic sooner if necessary. OARRS reviewed YOMI score: 66% Future Appointments Appointment Date:12/24/2022 08:30:00 AM Scheduled Provider:Elenita Lazar PA-C Location:.[facility] Appointment Type:Pain Management - Follow Up (FT) [facility]06-13-2023 Note [id number]:127[facility] 07-23-2022 Evaluation + Plan noteExtracted from: Title:Pain Managment Follow up Author:Elenita Dawson Date:07/23/22 Impression and Plan Patient is a 67-year-old male. He has a past medical history significant for postlaminectomy syndrome, chronic pain, cervical stenosis, cervical neuritis, lumbar neuritis, imbalance and bilateral hand tingling. He has previously seen Dr. Mckinney. Surgery was recommended to him but he has some concerns because of some financial restraints. He is using gabapentin 300 mg 1 in the morning, 1 in the afternoon, and 2 at night as well as Flexeril. Unfortunate, recent injection did not give him the relief he was looking for he does not think. He is having some difficulty telling us how much relief he got because of a fall. He states that he has been falling more and more. He has further discussed and thought about pursuing the surgery that was recommended to him by Dr. Mckinney. We had a long discussion about his MRI findings. We had a long discussion about his symptoms. At this time we are going to slightly increase his gabapentin to 600 mg 3 times a day as long as he tolerates the medication and he is going to reach out to Dr. Mckinney's office to further discuss the surgery. At this time he is going to follow-up in a month or 2. He will call the clinic sooner if necessary. OARRS reviewed YOMI score: 29 Future Appointments Appointment Date:09/24/2022 01:30:00 PM Scheduled Provider:Elenita Lazar PA-C Location:.[facility] Appointment Type:Pain Management - Follow Up (FT) [facility]02-21-2023 Note [id number]#1.00CD:[address] [place] [address] 05-28-2022 Evaluation + Plan noteExtracted from: Title:Pain Managment Follow up Author:Elenita Dawson Date:05/28/22 Impression and Plan Patient is a 66-year-old male. He has a past medical history significant for postlaminectomy syndrome, chronic pain, cervical stenosis, cervical neuritis, lumbar neuritis, and complaints of imbalance and bilateral hand tingling. He underwent a cervical epidural steroid injection C7-T1 done on 04/08/2022 that unfortunate, did not give him any relief. He states that his main concern is his balance and bilateral hand tingling. He also has a lot of neck pain and headaches. He really wants to get these things addressed. Patient uses gabapentin 300 mg 1 in the morning, 1 in the afternoon, and 2 at night as well as Flexeril. He tolerates these and they help him. Unfortunately, not enough. We once again discussed different options. At this time, we will refer him to a surgeon for him to get a surgical opinion. He is going to continue on the medications and he is going to follow-up in 3 months. He will call the clinic sooner if necessary. YOMI score: 32 Future Appointments Appointment Date:08/27/2022 11:30:00 AM Scheduled Provider:Elenita Lazar PA-C Location:[facility] Appointment Type:Pain Management - Follow Up (FT) [facility]11-29-2022 Note [id number]:127[facility] 04-08-2022 Evaluation + Plan noteExtracted from: Title:Cervical Epidural- [place] Author:Mark Boateng MD Date:04/08/22 Impression and Plan Future Appointments Appointment Date:04/30/2022 01:30:00 PM Scheduled Provider:Elenita Lazar PA-C Location:.[facility] Appointment Type:Pain Management - Follow Up (FT) [facility]10-28-2022 Evaluation + Plan noteExtracted from: Title:Pain management follow-up Author:Elenita Lazar PA-C Date:03/07/22 Impression and Plan Patient is a 66-year-old male. He has a past medical history significant for postlaminectomy syndrome, chronic pain, lumbar neuritis, and complaints of imbalance and bilateral hand tingling. He does have some cervical stenosis on review of the MRI. His main complaints at this time are imbalance issues, arm weakness, and hand tingling. We had long discussion with the MRI and the findings. Based on his physical examination, his complaints and his MRI findings I would recommend a C7-T1 epidural steroid injection for both diagnostic and therapeutic purposes. Procedure was discussed. Risk and benefits were discussed. Patient is agreeable. In the meantime he is also going to continue on the gabapentin and the Flexeril. OARRS was reviewed. He does not require refill. He will call when he does. Follow-up 2 weeks after the injection for reevaluation. Call the clinic sooner if necessary. [facility]10-10-2022 Note [id number]#[id number]:127[facility] 01-29-2022 Evaluation + Plan noteExtracted from: Title:Pain management follow up Author:Elenita Lazar PA-C Date:01/29/22 Impression and Plan Patient is a 66-year-old male with a past medical history significant for postlaminectomy syndrome, chronic pain, lumbar neuritis, and imbalance issues/handwriting changes. In regards to his lower back and radicular symptoms we reviewed his thoracic MRI scan. No acute fractures. He did well with previous caudal epidural steroid injection but his symptoms have started to return. I recommended repeating the caudal epidural steroid injection for both diagnostic and therapeutic purposes. He has done well with this in the past. I would also recommend him to try to maximize his spinal cord stimulator and he may want to reach out to the representative personal service for a reprogramming. He voiced understanding. Procedure was discussed. Patient is agreeable. In regards to his imbalance and handwriting changes I recommended to patient a cervical MRI scan to assess for any spinal cord compression. Patient to follow- up after for reevaluation and discussion of different options including but not limited to injection options versus surgical consultation depend on the results. Patient is agreeable. Follow-up after the caudal epidural steroid injection and the cervical MRI scan. [facility]07-20-2022 Evaluation + Plan noteExtracted from: Title:Pain management follow-up Author:Elenita Lazar PA-C Date:11/27/21 Impression and Plan Patient is a 66-year-old male with a past medical history significant for previous lumbar compression fracture, suspected thoracic compression fracture, postlaminectomy syndrome, chronic pain, and chronic mid to lower back pain. We reviewed the x- ray. We discussed different options. At this time he wants to continue on the gabapentin and the Flexeril how they have been prescribed. He is requesting refills. OARRS was reviewed. Refills will be sent to the pharmacy. In regards to the questionable acute fracture at T11 we discussed different options. I would recommend a thoracic MRI scan for possible injection options versus surgical consultation depend on the results. Patient is agreeable. He will follow-up after the MRI for reevaluation and discussion of different options. Future Appointments Appointment Date:01/29/2022 10:15:00 AM Scheduled Provider:Elenita Lazar PA-C Location:.[facility] Appointment Type:Pain Management - Follow Up (FT) [facility]05-18-2022 Evaluation + Plan noteExtracted from: Title:Pain management follow-up Author:Elenita Lazar PA-C Date:09/25/21 Impression and Plan Patient is a 66-year-old male with a past medical history significant for postlaminectomy syndrome, sacroiliitis, and chronic pain. Patient underwent recent caudal epidural steroid injection. This is on 09/10/2021 and has given him 85% relief. He does not have any radicular symptoms. Is mainly back pain. He rates it a - 10/2009. He states that it is tolerable but he does notice it. He recently suffered a fall. Due to this, we will obtain an updated thoracic and lumbar x-ray to assess the spinal cord stimulator and to assess for any acute injuries. We also discussed his stimulator. He is going to reach out to the representative personal service. We discussed his medications. He is going to continue on Flexeril 10 mg up to 3 times a day as needed as well as the gabapentin but he is going to increase the gabapentin to 1 in the morning, 1 in the afternoon, and 2 at bedtime. Future Appointments Appointment Date:11/27/2021 01:00:00 PM Scheduled Provider:Elenita Lazar PA-C Location:[facility] Appointment Type:Pain Management - Follow Up (FT) [facility]04-08-2022 Evaluation + Plan noteExtracted from: Title:Pain management follow-up Author:Elenita Lazar PA-C Date:08/16/21 Impression and Plan Patient is a 66-year-old male with a past medical history significant for postlaminectomy syndrome, sacroiliitis, and chronic pain. Patient underwent previous caudal epidural steroid injection. This was done on 05/05/2021 that gave him 75% relief for approximately 2 months. Patient continues on Flexeril and gabapentin at this time. Reports, over the last few weeks his pain has begun to return. It is in the lower back and left greater than right buttock. This affects his ability to comfort. It affects his quality of life and activity living. He feels that it is may be time to have another injection. Since he got significant relief from the previous caudal epidural steroid injection I discussed with patient repeating this. Procedure was discussed. Risk and benefits were discussed. Patient is agreeable. He will follow up 2 weeks after the injection for reevaluation. Call the clinic sooner if necessary. At this time, patient states that he does not require any refills. He will call when he does. OARRS [facility] Future Appointments Appointment Date:09/25/2021 01:00:00 PM Scheduled Provider:Elenita Lazar PA-C Location:[facility] Appointment Type:[facility] Future Appointments Appointment Date:03/07/2022 02:15:00 PM Scheduled Provider:Elenita Lazar PA-C Location:[facility] Appointment Type:[facility] - [facility] Future Appointments Appointment Date:07/23/2022 02:00:00 PM Scheduled Provider:Elenita Lazar PA-C Location:[facility] Appointment Type:Pain Management - [facility] Up ([facility] assessment information available [facility] Work Phone: Evaluation note[address] Right Other evaluation note* Diagnosis Skin ulcer of toe of left foot, limited to breakdown of skin (CMS/HCC)- Primary Hammer toe of left foot documented in this encounter [facility]* Diagnosis COVID-19 documented in this encounter [facility]* Diagnosis Onset Date Resolution Status Cellulitis noneactive Left elbow pain noneactive [facility] Work Phone: Evaluation note* Diagnosis Onset Date Resolution Status Cellulitis noneactive Left elbow pain noneactive Community acquired pneumonia acute COVID-19 acute Dehydration acute Oral thrush acute Pneumonia acute Sepsis acute [facility] Work Phone: Evaluation note* Diagnosis Onset Date Resolution Status Cellulitis noneactive Left elbow pain noneactive Community acquired pneumonia acute COVID-19 acute Dehydration resolved Oral thrush resolved Sepsis resolved [facility] Work Phone: Evaluation note* Diagnosis Other chronic pain documented in this encounter [facility] HealthcareEvaluation note* Diagnosis Frequent falls- Primary Morbid obesity (CMS/HCC) Morbid obesity Essential hypertension (CMS/HCC) Unspecified essential hypertension Impaired mobility and ADLs Lumbar post-laminectomy syndrome Postlaminectomy syndrome, lumbar region Prediabetes Other abnormal glucose documented in this encounter [facility] HealthcareEvaluation note* Diagnosis Routine general medical examination at health care facility- Primary Routine general medical examination at a health care facility documented in this encounter [facility]Evaluation note* Diagnosis Frequent falls- Primary Personal history of fall Mixed headache Headache Memory loss [facility] Diagnosis Morbid obesity (CMS/HCC)- Primary Morbid obesity Prostate cancer screening Special screening for malignant neoplasm of prostate Prediabetes Other abnormal glucose MANUEL (obstructive sleep apnea) Obstructive sleep apnea (adult) (pediatric) Spondylosis of lumbosacral spine without myelopathy Other chronic pain documented [facility]* Diagnosis Vertigo Dizziness and giddiness documented in this encounter [facility]* Diagnosis Oral aphthae- Primary Thrush, oral Frequent falls documented in this encounter [facility]* Diagnosis COVID-19- Primary Morbid obesity (CMS/HCC) Morbid obesity Pneumonia of lower lobe due to infectious organism, unspecified laterality Oral thrush Candidiasis of mouth Frequent falls documented in this encounter [facility]* Diagnosis Recurrent falls- Primary Memory changes Lumbar back pain with radiculopathy affecting right lower extremity Weakness of right lower extremity documented in this encounter [facility]* Diagnosis Frequent falls- Primary Encounter for immunization Lumbar post-laminectomy syndrome Postlaminectomy syndrome, lumbar region Essential hypertension (CMS/HCC) Unspecified essential hypertension Memory changes Vertigo Dizziness and giddiness Dizzy spells Dizziness and giddiness Morbid obesity (CMS/HCC) Morbid obesity [facility]* Diagnosis Morbid obesity (CMS/HCC) Morbid obesity Vertigo Dizziness and giddiness documented in this encounter [facility] Author Conor John [facility] December 27, 2023 7:22am Note Date/Time December 27, 2023 7: 13am [facility] [address] [place] [address] Hospitalist H&P Signed Patient: Juan Simon MR#: [id number] : 1955 Acct:[id number] Age/Sex: 68 / M Adm Date: 4 Loc: Room: [address] [place] [address] Type: ADM IN Attending Dr: Dc De La Rosa MD Copies to: MD Conor Denton MD G Robert Kaftan, Jr, DO~ HPI DATE OF EXAMINATION: 12/27/23 CHIEF COMPLAINT: generalized weakness, cough, dyspnea HISTORY OF PRESENT ILLNESS: 69 year old man with history of asthma and celiac disease who presented to the ED with the above complaints Per the patient he has been feeling increasingly weak over the last couple of weeks and has had multiple falls, most recently 2 days prior to presentation when he hit his head, he was seen in an outside ER, workup unremarkable, discharged home. Pt states for the last 2 days in addition to worsening generalized weakness he has had increasing cough and dyspnea. cough is nonproductive, associated with chills and subjective fever. denies chest pain hemoptysis syncope or lightheadedness Pt presented to the ED for evaluation, vital signs on arrival T 103.1 P 146 R 24BP 144/89 SaO2 95% on RA. pulse oximetry dipped into the low 90s requiring supplemental O2 pt was given CTX azithromycin and solumedrol in the ED after CXR revealed a LLL infiltrate. later, pt tested positive for COVID 19. he is admitted for furthereval/mgmt ROS: 10 systems reviewed and negative except as noted in the [facility] Medical History Back pain with history of spinal surgery Back injuries T-cell lymphoma Remission. FHx: cholecystectomy Celiac disease Surgical History H/O laminectomy Family History Father Grandparent Legacy FamHx Relation: Maternal Grand Father Family history of colon cancer Legacy FamHx Relation: Maternal Grand Father Grandparent Legacy FamHx Relation: Maternal Grand Mother Grandparent Legacy FamHx Relation: Paternal Grand Father Grandparent Legacy FamHx Relation: Paternal Grand Mother Mother Cancer Legacy FamHx Problem: Diagnosed with Cancer Family history of pancreatic cancer Social History Smoking Status: Never smoker Substance Use Type: None Meds Medications and Allergies Allergies gluten Allergy (Unknown, Verified 12/27/23 04:25) Unknown Reaction Home Medications albuterol sulfate 2.5 mg/3 mL (0.083 %) solution for nebulization 02/11/17 [History Confirmed 10/21/23] albuterol sulfate 90 mcg/actuation aerosol inhaler (Proventil HFA) 02/11/17 [History Confirmed 10/21/23] atenolol 25 mg tablet 25 mg PO DAILY 02/11/17 [History Confirmed 10/21/23] hprwxfwpmu-fqdacrckiqkab-dgqbwmpw 50 mg-325 mg-40 mg tablet 02/11/17 [History Confirmed 10/21/23] cyclobenzaprine 10 mg tablet 10 mg PO DAILY 02/11/17 [History Confirmed 10/21/23] divalproex 250 mg tablet,delayed release 02/11/17 [History Confirmed 10/21/23] fluticasone 500 mcg-salmeterol 50 mcg/dose blistr powdr for inhalation 02/11/17[History Confirmed 10/21/23] indomethacin 25 mg capsule 02/11/17 [History Confirmed 10/21/23] montelukast 10 mg tablet 02/11/17 [History Confirmed 10/21/23] lidocaine 5 % topical patch (Lidoderm) 1 patch topical DAILY pain 15 days #15 ea11/25/20 [Rx Confirmed 10/21/23] Exam Physical Exam Vital Signs: Temp Pulse Resp BP Pulse Ox O2 Del Method O2 Flow Rate 100.0 F H 129 H 20 120/71 95 Nasal Cannula 2 12/27/23 05:58 12/27/23 05:58 12/27/23 05:58 12/27/23 05:58 12/27/23 05:58 12/27/23 05:58 12/27/23 05:58 Const General: cooperative, no acute distress and well developed HEENT Head: normal to inspection Ears: external ears normal Nose: external nose normal Face and sinus: normal facial exam Mouth: oral mucosa abnormal (white patchy material on tounge and posterior oropharynx) white patches Throat: posterior oropharynx normal Eyes General: appearance normal, both eyes and all related structures Visual Benton: normal visual benton by confrontation Sclera: sclerae normal Pupils: PERRL and accommodation normal Neck Neck: normal visual inspection, no lymphadenopathy and supple Thyroid: thyroid normal Lymphatic: no lymphadenopathy noted Chest Chest palpation & inspection: normal inspection of the chest Resp Effort & Inspection: normal respiratory effort and able to speak in complete sentences Auscultation: diminished lung sounds bilaterally, rhonchi left lower and right lower and wheezes scattered wheezes Cardio Palpation: normal PMI Rate: regular rate and tachycardic Rhythm: regular rhythm Heart Sounds: S1 normal and S2 normal GI Inspection: normal to inspection Palpation: soft Auscultation: normal bowel sounds General: bladder normal to palpation Musc Cervical Spine: cervical ROM normal Thoracic/Lumbar Spine: thoracic and lumbar spine normal to inspection Skin General: no rashes or lesions noted and turgor normal Neuro General: patient alert, patient awake and patient oriented x3 Speech: speech normal Extrem General: normal to inspection and full ROM Psych Appearance: grossly normal Mental Status: mental status grossly normal Affect: normal affect Speech and Movement: speech and movement normal Attitude: cooperative Results - Hospitalist H&P Lab Results Labs: Laboratory Last Values Corrected WBC 14.0 X10E3/uL (4.1-10.5) H 12/27/23 04:40 Uncorrected WBC Count 14.0 x10E3/uL (4.1-10.5) H 12/27/23 04:40 RBC 4.28 X10E6/uL (3.90-5.60) 12/27/23 04:40 Hgb 14.1 g/dL (13.0-17.0) 12/27/23 04:40 Hct 41.9 % (38.8-50.0) 12/27/23 04:40 MCV 97.7 fl (83.5-101) 12/27/23 04:40 MCH 32.8 pg (27.5-35.2) 12/27/23 04:40 MCHC 33.6 g/dL (32.5-35.6) 12/27/23 04:40 RDW 13.3 % (12.0-14.8) 12/27/23 04:40 Plt Count 264 x10E3/uL (150-450) 12/27/23 04:40 MPV 6.6 fl (6.6-10.1) 12/27/23 04:40 Neut % (Auto) 89.0 % (.) 12/27/23 04:40 Lymph % (Auto) 7.9 % (.) 12/27/23 04:40 [place] % (Auto) 2.1 % (.) 12/27/23 04:40 Eos % (Auto) 0.6 % (.) 12/27/23 04:40 Baso % (Auto) 0.4 % (.) 12/27/23 04:40 Nucleat RBC Rel Count 0.1 /100 WBC (0-0.5) 12/27/23 04:40 Neut # (Auto) 12.5 x10E3/uL (1.8-7.7) H 12/27/23 04:40 Lymph # (Auto) 1.1 x10E3/uL (1.00-4.8) 12/27/23 04:40 [place] # (Auto) 0.3 x10E3/uL (0.0-0.8) 12/27/23 04:40 Eos # (Auto) 0.1 x10E3/uL (0.0-0.45) 12/27/23 04:40 Baso # (Auto) 0.1 x10E3/uL (0.0-0.2) 12/27/23 04:40 Monocyte Dist Width 24.97 % (0.00-20.00) H 12/27/23 04:40 PT 13.2 Seconds (9.0-12.9) H 12/27/23 04:40 INR 1.1 12/27/23 04:40 APTT 28.0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 December 29, 2023 Team Status: Inactive Member Role Status Dates Ambika Benson DO Primary Care Provider Active Start: January 10, 2024 End: January 11, 2024 Ralf White DO Emergency Provider Active Start: January 10, 2024 End: January 11, 2024 Civil Laboratory Technician Relationship Specialty Start Date End Date Lisa Benson DO [address] [place] [address] PCP - [employer] 08/09/18 Lisa Benson DO [address] [place] [address] PCP - General Family Medicine 06/17/23 Lisa Benson, DO [address] [place] [address] PCP - [employer] 07/10/23 Civil Laboratory Technician Relationship Specialty Start Date End Date Lisa Benson DO [address] [place] [address] PCP - [employer] 08/09/18 Lisa Benson DO [address] [place] [address] PCP - General Family Medicine 06/17/23 Lisa Benson DO [address] [place] [address] PCP - [employer] 07/10/23 Civil Laboratory Technician Relationship Specialty Start Date End Date Lisa Benson DO [address] [place] [address] PCP - [employer] 08/09/18 Lisa Benson DO [address] [place] [address] PCP - General Family Medicine 06/17/23 Lisa Benson DO [address] [place] [address] PCP - Dev[employer] 07/10/23 Civil Laboratory Technician Relationship Specialty Start Date End Date Lisa Benson DO [address] [place] [address] PCP - [employer] 08/09/18 Lisa Benson DO [address] [place] [address] PCP - General Family Medicine 06/17/23 Lisa Benson DO [address] [place] [address] PCP - Dev[employer] 07/10/23 Leni Serrano LPN Licensed Practical Nurse Family Medicine 03/01/24 Civil Laboratory Technician Relationship Specialty Start Date End Date Lisa Benson Jr., DO [address] [place] [address] PCP - General Family Medicine 07/10/11 Civil Laboratory Technician Relationship Specialty Start Date End Date Lisa Benson DO [address] [place] [address] PCP - Hum[employer] 08/09/18 Lisa Benson DO [address] [place] [address] PCP - General Family Medicine 06/17/23 Lisa Benson DO [address] [place] [address] PCP - Dev[employer] 07/10/23 05/10/24 Leni Serrano LPN Licensed Practical Nurse Family Medicine 03/01/24 Civil Laboratory Technician Relationship Specialty Start Date End Date Lisa Benson DO [address] [place] [address] PCP - [facility] 08/09/18 Lisa Benson DO [address] [place] [address] PCP - General Family Medicine 06/17/23 Lisa Benson DO [address] [place] [address] PCP - Dev[employer] 07/10/23 05/10/24 Leni Serrano LPN Licensed Practical Nurse Family Medicine 03/01/24 Civil Laboratory Technician Relationship Specialty Start Date End Date Lisa Benson DO [address] [place] [address] PCP - Hum[employer] 08/09/18 Lisa Benson, DO [address] [place] [address] PCP - General Family Medicine 06/17/23 Lisa Benson DO [address] [place] [address] PCP - [employer] 07/10/23 05/10/24 Leni Serrano LPN Licensed Practical Nurse Family Medicine 03/01/24 Civil Laboratory Technician Relationship Specialty Start Date End Date Lisa Benson DO [address] [place] [address] PCP - [employer] 08/09/18 Lisa Benson DO [address] [place] [address] PCP - General Family Medicine 06/17/23 Lisa Benson DO [address] [place] [address] PCP - [employer] 07/10/23 05/10/24 Leni Serrano LPN Licensed Practical Nurse Family Medicine 03/01/24 Civil Laboratory Technician Relationship Specialty Start Date End Date Lisa Benson DO [address] [place] [address] PCP - [employer] 08/09/18 Lisa Benson DO [address] [place] [address] PCP - General Family Medicine 06/17/23 Lisa Benson DO [address] [place] [address] PCP - [employer] 07/10/23 05/10/24 Leni Serrano LPN Licensed Practical Nurse Family Medicine 03/01/24 Civil Laboratory Technician Relationship Specialty Start Date End Date Lisa Benson DO [address] [place] [address] PCP - Hum[employer] 08/09/18 Lisa Benson, DO [address] [place] [address] PCP - General Family Medicine 06/17/23 Lisa Benson, DO [address] [place] [address] PCP - Devoted 07/10/23 Civil Laboratory Technician Relationship Specialty Start Date End Date Lisa Benson DO [address] [place] [address] PCP - Hum[employer] 08/09/18 Lisa Benson, DO [address] [place] [address] PCP - General Family Medicine 06/17/23 Lisa Benson, DO [address] [place] [address] PCP - Devoted 07/10/23 Civil Laboratory Technician Relationship Specialty Start Date End Date Lsia Benson DO [address] [place] [address] PCP - [employer] 08/09/18 Lisa Benson DO [address] [place] [address] PCP - General Family Medicine 06/17/23 Lisa Benson DO [address] [place] [address] PCP - Devoted 07/10/23 Civil Laboratory Technician Relationship Specialty Start Date End Date Lisa Benson DO [address] [place] [address] PCP - Hum[employer] 08/09/18 Lisa Benson DO [address] [place] [address] PCP - General Family Medicine 06/17/23 Lisa Benson DO [address] [place] [address] PCP - Devoted 07/10/23 Civil Laboratory Technician Relationship Specialty Start Date End Date Lisa Benson DO [address] [place] [address] PCP - Hum[employer] 08/09/18 Lisa Bneson DO [address] [place] [address] PCP - General Family Medicine 06/17/23 Lisa Benson DO [address] [place] [address] PCP - [employer] 07/10/23 05/10/24 Leni Serrano LPN Licensed Practical Nurse Family Medicine 03/01/24 Civil Laboratory Technician Relationship Specialty Start Date End Date Lisa Benson, DO [address] [place] [address] PCP - [employer] 08/09/18 Lisa Benson, DO [address] [place] [address] PCP - General Family Medicine 06/17/23 Lisa Benson, DO [address] [place] [address] PCP - [employer] 07/10/23 05/10/24 Leni Serrano LPN Licensed Practical Nurse Family Medicine 03/01/24 Civil Laboratory Technician Relationship Specialty Start Date End Date Lisa Benson DO [address] [place] [address] PCP - [employer] 08/09/18 Lisa Benson, DO [address] [place] [address] PCP - General Family Medicine 06/17/23 Leni Serrano LPN Licensed Practical Nurse Family Medicine 03/01/24 Goals (unrecognized section and content) Goals may be documented in a n alternate section (unrecognized sect ion and content) No Status Records FoundNo Status Records FoundNo Status Records FoundNo Status Records Found INFORMATION SOURCE (unrecogn ized section and content) DATE CREATED AUTHOR 01/13/2023 [facility] DATE CREATED AUTHOR AUTHOR'S ORGANIZ ATION 03/27/2024 [facility] DATE CREATED AUTHOR AUTHOR'S ORGANIZ ATION 05/02/2024 [facility] EPIC DATE CREATED AUTHOR AUTHOR'S ORGANIZ ATION 06/08/2024 [facility] Reason for Visit (unrecogniz ed section and content) Reason Comments Foot Ulcer Reason Comments URI Reason Onset Date Comments Med Refill 02/22/2024 Reason Comments Weight Check Reason Comments Medicare Annual Wellness Visit Subsequen t Pt states he is here for a medicare wellness Reason Comments New Patient Reason Comments Med Refill Reason Onset Date Comments mychart 04/22/2024 Reason Comments Hospital Follow-up Reason Comments Fall Pt presents for a fa ll. This happened this past weekend. Pt did go to the ER for this and did have testing completed. Pt was backing up instead of turning around and he fell backwards and landed on his head. Reason Comments Fall Source Comments (unrecognize d section and content) In the event this informatio n is protected by the Federal Confidentiality of Alcohol and Drug Abuse Patient Records regulations: The Federal rules restrict any use of the information to criminally investigate or prosecute any alcohol or drug abuse patient.[facility] FOR RECORDS PERTAINING TO PATIENTS WHO ARE OR HAVE BEEN ENROLLED IN A CHEMICAL DEPENDENCY/SUBSTANCEABUSE PROGRAM, SOME INFORMATION MAY BE OMITTED. This clinical summary was aggregated from multiple sources. Caution should be exercised in using it in the provision of clinical care. This summary normalizes information from multiple sources, and as a consequence, information in this document may materially change the coding, format and clinical context of patient data. In addition, data may be omitted in some cases. CLINICAL DECISIONS SHOULD BE BASED ON THE PRIMARY CLINICAL RECORDS. [employer] provides no warranty or guarantee of the accuracy or completeness of information in this document.
[2024-06-12 10:54] LABS: INR 1.03; Prothrombin Time 10.9 sec (9.0-11.6)
[2024-06-12 10:58] LABS: Alanine Aminotransferase 17 U/L (16-63); Albumin Globulin Ratio 0.5; Alkaline Phosphatase 86 U/L (46-116); Anion Gap 8.6; Aspartate Amino Transferase 21 U/L (15-37); BUN Creatinine Ratio 20.4; Bilirubin Total 0.7 mg/dL (0.2-1.0); Calcium 8.2 mg/dL (8.5-10.1); Carbon Dioxide 36.8 mmol/L (21.0-32.0); Chloride 97 mmol/L (98-107); Estimated GFR (African America >60 (>=60 mL/min/1.73m^2); Estimated GFR (Non-African Ame >60 (>=60 mL/min/1.73m^2); Ethanol <3 mg/dL; Globulin 3.7 g/dL; Glucose 95 mg/dL (74-106); Lactate/Lactic Acid 0.9 mmol/L (0.4-2.0); Magnesium 1.9 mg/dL (1.8-2.4); Potassium 3.4 mmol/L (3.5-5.1); Sodium 139 mmol/L (136-145); Total Protein 5.7 g/dL (6.4-8.2); Troponin I High Sensitivity 14.7 pg/mL (4.0-76.1)
[2024-06-12 11:05] LABS: Bilirubin Urine NEGATIVE (NEGATIVE); Blood Urine NEGATIVE (NEGATIVE); Clarity Urine CLEAR (CLEAR); Color Urine YELLOW (YELLOW); Glucose Urine UA NEGATIVE (NEGATIVE); Ketones Urine TRACE mg/dL (NEGATIVE); Leukocyte Esterase Urine NEGATIVE (NEGATIVE); Nitrite Urine NEGATIVE (NEGATIVE); Protein Urine NEGATIVE (NEG/TRACE); Specific Gravity Urine 1.025 (1.005-1.025); pH Urine 5.5 (5.0-9.0)
[2024-06-12 11:08] LABS: Urine Microscopic Indicated NO
[2024-06-12] MEDS: IPRATROPIUM/ALBUTEROL SULFATE 3 ML AMPUL.NEB IH (11:14)
--- NOTE | 2024-06-12 11:29 | CT_ITS ---
The [address] [address] Patient Name: CRISTINE BURTON MRN: [id number] date: 1955 Sex: M Assigned Patient Location: ER Current Patient Location: Accession/Order Number: [id number] Exam Date: 06/12/2024 11:49 Report Date: 06/12/2024 13:04 At the request of: MARIANA CAMPBELL Procedure: CT angio head EXAM: CT angio head, CT angio neck HISTORY: intracranial bleeding COMPARISON: CT head performed the same day and reported separately. TECHNIQUE: Postcontrast CTA imaging of the head and neck was performed with coronal and sagittal reformats. Maximum intensity projection and 3-D reformats were performed on a separate workstation. NASCET criteria was utilized. This CT exam was performed using one or more of the following dose reduction techniques: Automated exposure control, adjustment of the MA and/or kV according to patient size, or use of iterative reconstruction technique. All images are contained under the CTA HEAD patient jacket. FINDINGS: Aortic arch: Imaged portion shows no evidence of aneurysm. No significant stenosis of the major origins of the major arch vessels. Right carotid system: No evidence of significant (50% or greater) stenosis or occlusion. Left carotid system: No evidence of significant (50% or greater) stenosis or occlusion. Vertebral arteries: Left vertebral artery dominance. No evidence of significant (50% or greater) stenosis or occlusion. Anterior circulation: No evidence of aneurysm, significant stenosis, or occlusion. Vertebrobasilar system: No evidence of aneurysm, significant stenosis, or occlusion. Venous sinuses: Grossly patent. Additional findings: No overt evidence for active bleeding or extravasation of contrast within the area of lateral frontal lobe hemorrhage. There is increased disease involving the visualized upper lungs with peripheral predominant groundglass opacities. Calcified granuloma involving the right upper lobe. Moderate degenerative change of the cervical spine. CT/CT angio head IMPRESSION: 1. No hemodynamically significant stenosis, large vessel occlusion or aneurysm involving the neck or intracranial arterial vasculature. 2. No evidence for active bleeding/extravasation of contrast in the region of right lateral frontal lobe hemorrhage. Electronically authenticated by: SHIRLEY STEPHENSON Date: 06/12/2024 13:04
--- NOTE | 2024-06-12 11:29 | CT_ITS ---
The [address] [address] Patient Name: CRISTINE BURTON MRN: [id number] date: 1955 Sex: M Assigned Patient Location: ER Current Patient Location: Accession/Order Number: [id number] Exam Date: 06/12/2024 11:49 Report Date: 06/12/2024 13:04 At the request of: MARIANA CAMPBELL Procedure: CT angio neck EXAM: CT angio head, CT angio neck HISTORY: intracranial bleeding COMPARISON: CT head performed the same day and reported separately. TECHNIQUE: Postcontrast CTA imaging of the head and neck was performed with coronal and sagittal reformats. Maximum intensity projection and 3-D reformats were performed on a separate workstation. NASCET criteria was utilized. This CT exam was performed using one or more of the following dose reduction techniques: Automated exposure control, adjustment of the MA and/or kV according to patient size, or use of iterative reconstruction technique. All images are contained under the CTA HEAD patient jacket. FINDINGS: Aortic arch: Imaged portion shows no evidence of aneurysm. No significant stenosis of the major origins of the major arch vessels. Right carotid system: No evidence of significant (50% or greater) stenosis or occlusion. Left carotid system: No evidence of significant (50% or greater) stenosis or occlusion. Vertebral arteries: Left vertebral artery dominance. No evidence of significant (50% or greater) stenosis or occlusion. Anterior circulation: No evidence of aneurysm, significant stenosis, or occlusion. Vertebrobasilar system: No evidence of aneurysm, significant stenosis, or occlusion. Venous sinuses: Grossly patent. Additional findings: No overt evidence for active bleeding or extravasation of contrast within the area of lateral frontal lobe hemorrhage. There is increased disease involving the visualized upper lungs with peripheral predominant groundglass opacities. Calcified granuloma involving the right upper lobe. Moderate degenerative change of the cervical spine. CT/CT angio neck IMPRESSION: 1. No hemodynamically significant stenosis, large vessel occlusion or aneurysm involving the neck or intracranial arterial vasculature. 2. No evidence for active bleeding/extravasation of contrast in the region of right lateral frontal lobe hemorrhage. Electronically authenticated by: SHIRLEY STEPHENSON Date: 06/12/2024 13:04
[2024-06-12 11:30] LABS: ABG PCO2 49.9 mmHg (35.0-45.0); Allen Test POSITIVE (POSITIVE); Base Excess ABG 14.2 mmol/L (-2.0-2.0); HCO3 ABG 37.6 mmol/L (22.0-26.0); O2 Mode N/C; PO2 ABG 91.4 mmHg (80.0-100.0); pH ABG 7.485 (7.350-7.450)
[2024-06-12 11:31] LABS: Liters per Minute 2; Puncture Site R. RAD
== END 2024-06-12 12:34 | disposition short-term general hospital (02) ==
PROVIDERS: Emergency Provider Emergency Medicine; Family Provider Family Medicine; PCP Family Medicine
DX: I60.9 Nontraumatic subarachnoid hemorrhage, unspecified (principal); R29.721 NIHSS score 21; Z87.440 Personal history of urinary (tract) infections; I48.91 Unspecified atrial fibrillation; Z91.81 History of falling; R21 Rash and other nonspecific skin eruption; Z79.82 Long term (current) use of aspirin
CPT/HCPCS: 36415; 36600; 51702; 70450; 70496; 70498; 71045; 80053; 80320; 81003; 82805; 82948; 83605; 83735; 84484; 85025; 85610; 87040; 93005; 94640; 99285; Q9967

== ENCOUNTER 2024-07-03 22:42 | Outpatient (REF) | payer MEDICARE, SELFPAY ==
--- OUTSIDE RECORDS SUMMARY | 2024-07-03 22:53 | XMS_ITS | CCD ---
Author Organization [facility] Care Team Providers Care Quill Winder Name Role Phone Tatiana BENSON Primary Care Physician [phone] DO Ambika Benson Primary Care Provider [phone] VIRGIL Lazar Attending Provider DO Ambika Benson Primary Care Provider [phone] DO Ambika Benson Attending Provider VIRGIL Lazar Attending Provider [phone] VIRGIL Basilio Attending Provider Harry Mckinney Unavailable [...] Attending Unavailable MD Mark Boateng Admitting Unavailable Elenita Lazar Admitting Unavailable Tatiana BENSON Referring Unavailable Elenita Lazar Attending Unavailable VIRGIL Lazar Admitting Unavailabl e KELLEY G CECI Referring Unavailable Elenita Lazar Attending Unavailable Elenita Lazar Admitting Unavailable KELLEY G CECI Referring Unavailable Elenita Lazar Attending Unavailable Elenita Lazar Admitting Unavailable Tatiana BENSON Referring Unavailable Elenita Lazar Attending Unavailable Elenita Lazar Attending Unavailable VIRGIL Lazar Admitting UnavailTatiana Boyce Referring Unavailable Elenita Lazar Attending Unavailable VIRGIL Lazar Admitting UnavailTatiana Boyce Referring Unavailable NEWTON Parker Attending Provider Jolantamagaly SPRINGER Lisa Deana Primary Care Provider Jolantamagaly SPRINGERLisa R Unavailable [phone] JolantaLisa mckenzie DO Primary Care Provider DO Ambika Benson Primary Care Provider DO Lavern Dahl Attending Provider NURYS Peña Attending Provider [phone] NURYS Banks Emergency Provider [phone] [facility] Carolina De La O Emergency Provider DO Ambika Benson Primary Care Provider DO Soto Simmons Emergency Provider [phone] MD Conor John Admit Provider [phone] MD Dc De La Rosa Attending Provider [phone] MD Skyler Sanchez Attending Provider DO Ralf White Emergency Provider Lisa Benson DO R Unavailable Lisa Benson DO R Unavailable Black ASPHALT DAUBER, Leni Unavailable Kelley Lowe DO, George Robert Primary Care Provi heather JIMMY CASTLE Attending Unavailab LISA Avelar JR Primary Care Unavail able Lisa Benson DO R Unavailable MARILYNN JESSICA S Attending Unavailable LISA BENSON R Referring Unavailable DIDCHRISTEL BLAIR Attending Unavailable LISA BENSON R Referring Unavailable LIEBENTHAL, JESSICA S Attending Unavailable DIDCHRISTEL BLAIR Attending Unavailable DIDIONCHRISTEL Attending Unavailable LIEBENTHAL, JESSICA S Attending Unavailable DIDCHRISTEL BLAIR Attending Unavailable LIEBENTHAL, JESSICA S Attending Unavailable LIEBENTHAL, JESSICA S Attending Unavailable DIDION, CHRISTEL C Attending Unavailable LIEBENTHAL, JESSICA Varghese Attending Unavailable LUBHILDA Ledezma Attending Unavailable DIDION, CHRISTEL Flores Attending Unavailable LIEBENTHAL, JESSICA S Attending Unavailable JEMIMA, LAVERN Attending Unavailable DENBESTENRAFAEL Attending Unavailable JEMIMA, LAVERN Referring Unavailable LIEBENTHAL, JESSICA S Attending Unavailable DIDION, CHRISTEL Flores Attending Unavailable LAURA MARIN Attending Unavailable KAFTAN, LISA R Attending Unavailable LIEBENTHAL, JESSICA S Attending Unavailable LUBY, HILDA Campos Attending Unavailable KAFTAN, LISA R Attending Unavailable LIEBENTHAL, JESSICA S Attending Unavailable KAFTAN, LISA R Attending Unavailable KAFTAN, LISA R Referring Unavailable CHERELLE RODRIGUEZ Attending Unavailable KAFTAN, LISA R Attending Unavailable KAFTAN, LISA R Referring Unavailable BASILIOKOKI Attending Unavailable KAFTAN, LISA R Referring Unavailable KAFTAN, LISA R Attending Unavailable KAFTAN, LISA R Referring Unavailable KAFTAN, LISA R Referring Unavailable KAFTAN, LISA R Attending Unavailable KAFTAN, LISA R Referring Unavailable KOKI BASILIO Attending Unavailable KAFTAN, LISA R Attending Unavailable KAFTAN, LISA R Attending Unavailable KAFTAN, LISA R Attending Unavailable KAFTAN, LISA R Referring Unavailable Kaftan Ambika SPRINGER Primary Care Provider [phone] Ralf White DO Emergency Provider Skyler Sanchez MD Admit Provider [phone] Shira Nath MD Attending Provider [phone] Moris Younger MD Other Provider Jesus Fraser DO Other Provider Jimmy Gonzalez DO Other Provider Jesus Ribeiro DO Other Provider Kelley Lowe DO, George R Primary Care Provider LISA BENSON JR Referring Unavailable KELLEY HERNÁNDEZ, LISA Leblanc Primary Care Unavailable KELLEY HERNÁNDEZ, LISA R Referring Unavailable KAFTMAGALY HERNÁNDEZ, LISA R Primary Care Unavailable Conor John Admitting Unavailable Skyler Sanchez Attending Unavailable Ambika Benson Primary Care Unavailable Ralf White Admitting Unavailable Ralf White Attending Unavailable Ambika Benson Primary Care Unavailable Willie Banks Admitting Unavailable Willie Banks Attending Unavailable Ambika Benson Primary Care Unavailable Bullimore, Carolina E Admitting Unavailable Bullimkandi Carolina E Attending Unavailable Ambika Benson Primary Care Unavailable Lavern Dahl Attending Unavailable Ambika Benson Primary Care Unavailable Lavern Dahl Admitting Unavailable Melissa Peña Admitting Unavailable Melissa Peña Attending Unavailable Ambika Benson Primary Care Unavailable Moris Younger Consulting Unavailable Skyler Sanchez Admitting Unavailable Ambika Benson Primary Care Unavailable Shira Nath Attending Unavailable Jesus Fraser Consulting Unavailable Jimmy Gonzalez Consulting Unavailab Jesus Ortega Consulting Unavailable JUMAA, MOUHAMMAD AHaley Admitting Unavailable JUMAA, MOUHAMMAD AHaley Attending Unavailable MARIANA CAMPBELL Referring Unavailable LISA BENSON JR Primary Care Unavailable CHANDAN LEAL Consulting Unavailable WILLIE DAMON Consulting Unavailable CAROL BOOKER Consulting Unavailable CECI JAY Consulting Unavailable NOA SINGH Consulting Unavailable TT ONLY, ACADEMIC ADULT PUL MONARY CONSULT SERVICE Consulting Unavailable JESSICA DEL RIO Consulting Unavailable JUANITO IGLESIAS Attending Unavailable LISA BENSON JR Referring Unavailable LISA BENSON JR Primary Care Unavailable Allergies Allergy Classification Reported Allergen(s) Allergy Type Date of Onset Reaction(s) Facility (16 sources) barley extract; Translations: [Hordeum (organism)] Drug Allergy 11-22-19 14 Unknown [facility] (20 sources) Morphine; Translations: [morphine] Drug Allergy 07-17-19 13 Unknown, GI Disturbance [facility] (16 sources) rye allergenic extract; Translations: [Meeker] Drug Allergy 11-22-19 14 Unknown [facility] (20 sources) Wheat preparation; Translations: [Wheat] Drug Allergy 11-22-19 14 Unknown [facility] (20 sources) Gluten; Translations: [GLUTEN] Drug allergy 06-15-19 15 [employer] Other (20 sources) oxyMORphone Drug Allergy 10-20-19 23 Nausea Only [facility] (20 sources) Willie grass pollen allergen Drug Allergy 11-22-19 14 Unknown [facility] (7 sources) WHEAT DEXTRIN Drug Allergy 11-22-19 14 Unknown [facility] (20 sources) Barley Grass Allergy to substance 11-22-19 14 Unknown [facility] Work Phone: (7 sources) Morphine And Related Drug Intolerance 06-15-19 15 Unknown [facility] (20 sources) Morphine And Codeine Drug Intolerance 06-15-19 15 Unknown [facility] (2 sources) Gluten Flour; Translations: [GLUTEN FLOUR] Food Allergy 03-21-20 13 Diarrhea [facility] (6 sources) Ciprofloxacin; Translations: [CIPROFLOXACIN HCL] Drug Allergy 06-13-19 Rash [facility] (4 sources) Wheat gluten extract Drug Allergy 06-12-19 [facility] (1 source) Gluten Drug allergy (disorder) 05-02-20 [facility] Repository Medications Current Medications Medication Drug Class(es) Dates Sig (Normalized) Sig (Original) acetaminophen 325 mg oral tablet (6 sources) Start: 05-23-2024 take 1-5 tablets by mouth every six hours as needed for pain Acetaminophen (Tylenol) 325 mg Tablet Active 650 MG PO Q6H as needed for Pain 1-5 or fever 0 May 23, 2024 12:00am take 2 tablets by mo uth every six hours as needed for pain acetaminophen (TYLENOL) 325 mg tablet Ta ke 2 tablets (650 mg total) by mouth every 6 (six) hours as needed for pain. Active acetaminophen 250 mg / aspirin 250 mg [...] 0 06/25/2017 Active Start: 02-11-2017 End: 12-27-2023 Fzlzgrkfsf-Saauurqlubqmo-Ybh f 50-325-40 mg Tablet Discontinued TABLET February [...] 10 days. 30 tablet 04/20/2024 04/30/2024 Active [id number] 200 actuat albuterol 0.09 mg/actuat metered dose [...] asthma without status asthmaticus without complication (CMS/HCC) inhale 2 puffs by mouth and INTO [...] 0 Start Date: 10/31/14 Status: Ordered take 2 puff(s) by in halation every four hours as needed for wheezing albuterol (PROVENTIL HFA;VENTOLIN HFA) 90 mcg/actuation inhaler Inhale 2 puffs every 4 (four) hours as needed for wheezing or shortness of breath. Active take 2.5 mg by inhal ation every two hours as needed for wheezing and dyspnea albuterol (PROVENTIL,VENTOLIN) 2.5 mg /3 mL (0.083 %) nebulizer solution Inhale 3 mL (2.5 mg total) by nebulization every 2 (two) hours as needed for wheezing or shortness of breath. Suspended take 1 puff(s) by in halation twice [...] aspirin 81 mg delayed release oral tablet (5 sources) Platelet Aggregation Inhibitor, Nonsteroidal Anti-inflammatory Drug Start: 05-23-2024 take 1 tablet by mouth once daily Aspirin 81 mg Tablet,Delayed Release (Dr/Ec) Active 81 MG PO Daily 0 May 23, 2024 12:00am Aspirin / butalbital / Caffeine (3 sources) [...] Bisacodyl 10 mg Suppository Active 10 MG TX Daily as needed for Constipation 0 May 23, 2024 12:00am bumetanide 2 mg oral tablet (5 sources) Loop Diuretic Start: 06-24-2024 bumetanide (BUMEX) 2 mg tablet Administer 1 tablet (2 mg total) per tube daily as needed (leg swelling). 30 tablet 06/24/2024 Active Start: 05-23-2024 take 1 tablet by lesley th once daily Bumetanide 1 mg Tablet Active 1 MG PO DAILY@0800 0 May 23, 2024 12:00am take 1 tablet by lesley th once daily bumetanide (BUMEX) 2 mg tablet Take 1 tablet (2 mg total) by mouth daily. Suspended caffeine 200 mg oral tablet (1 source) Central Nervous System Stimulant, Methylxanthine take 1 tablet by mouth every four hours Calcium (1 source) Phosphate Binder, Calcium Calcium Carb-Cholecalciferol (CALCIUM + D3 PO) (20 sources) Calcium Carb-Cholecalcifero l (CALCIUM + D3 PO) Take by mouth [...] oral tablet (20 sources) Muscle Relaxant Start: 02-11-2017 End: 05-23-2024 take 1 tablet by mouth three times daily as needed for muscle spasms cyclobenzaprine (Flexeril) 10 MG tablet Indications: Other chronic pain Take 1 tablet (10 mg) by mouth 3 (three) times a day as needed for muscle spasms 03/31/2024 Active Start: 02-11-2017 take 10 mg by mouth [...] hydrochloride 180 mg extended release oral capsule (4 sources) Calcium Channel David Start: 05-23-2024 take 1 capsule by mouth once daily Diltiazem Hcl 180 mg Capsule,Extended Release 24hr Active 180 MG PO Daily 0 May 23, 2024 12:00am take 1 tablet by lesley every twenty-four hours in the morning diltiazem LA (CARDIZEM LA) 180 mg 24 hr tablet Take 1 tablet (180 mg total) by mouth in the morning. Active doxepin hydrochloride 10 mg oral capsule (20 sources) Tricyclic Antidepressant Start: 10-28-2023 End: 05-23-2024 take 1 capsule by mouth at bedtime Doxepin 25 mg capsule Discontinued 25 MG PO Bedtime December 26, 2023 11:00pm May 23, 2024 12:54pm Start: 01-12-2019 take 1 capsule by [facility] at bedtime doxepin (SINEquan) 10 MG capsule [...] Active Start: 02-09-2023 take 1 capsule by [facility] in the morning DULoxetine (Cymbalta) 30 MG [...] puff(s) by in halation in the morning fluticasone propion-salmeteroL (ADVAIR) 500-50 mcg/dose DISKUS Inhale 1 puff in the morning and 1 puff before bedtime. Active take 1 puff(s) by in halation in the morning fluticasone propion-salmeteroL (ADVAIR) 500-50 mcg/dose DISKUS Inhale 1 puff in the morning and 1 puff before bedtime. Suspended take 1 puff(s) by in halation in [...] day(s), # 180 cap(s), Refills(s) 2, Pharmacy: [facility] #[id number], 162, cm, 10/21/22 8:00:00 EDT, Height/Length Dosing, 98, kg, 09/24/22 13:53:00 EDT, Weight Dosing Start Date: 11/10/22 Stop Date: 02/08/23 Status: Ordered Start: 07-21-2022 End: 08-20-2022 take 1 capsule by mouth four times daily gabapentin 300 mg Cap 300 mg = 1 cap(s), Oral, QID, X 30 day(s), # 120 cap(s), Refills(s) 0, Pharmacy: [facility] #[id number], 162, cm, 07/01/22 12:20:00 EST, Height/Length Dosing, 99, kg, 05/28/22 10:35:00 EST, Weight Dosing Start Date: 07/21/22 Stop Date: 08/20/22 Status: Ordered Start: 06-09-2022 End: 07-09-2022 take 1 capsule by mouth four times daily gabapentin 300 mg Cap 300 mg = 1 cap(s), Oral, QID, X 30 day(s), # 120 cap(s), Refills(s) 0, Pharmacy: [facility] #[id number], 162, cm, 05/28/22 10:35:00 EST, Height/Length Dosing, 99, kg, 05/28/22 10:35:00 EST, Weight Dosing Start Date: 06/09/22 Stop Date: 07/09/22 Status: Ordered Start: 11-27-2021 End: 05-19-2022 take 1 capsule by mouth four times daily gabapentin 300 mg Cap 300 mg = 1 cap(s), Oral, QID, X 30 day(s), # 120 cap(s), Refills(s) 1, [facility]: [facility][id number], 162, cm, 03/07/22 14:25:00 EDT, Height/Length Dosing, 97.5, kg, 03/07/22 14:25:00 EDT, Weight Dosing Start Date: 03/20/22 Stop Date: 05/19/22 Status: Ordered Start: 09-25-2021 End: 11-24-2021 take 1 capsule by mouth four times daily gabapentin 300 mg Cap 300 mg = 1 cap(s), Oral, QID, X 30 day(s), # 120 cap(s), Refills(s) 1, [facility]: [id number], 162, cm, 09/25/21 13:15:00 EDT, Height/Length Dosing, 107, kg, 09/25/21 13:15:00 EDT, Weight Dosing Start Date: 09/25/21 Stop Date: 11/24/21 Status: Ordered Start: 01-14-2019 End: 03-18-2024 take 1 capsule by mouth three times daily gabapentin 300 mg Cap 300 mg = 1 cap(s), Oral, TID, X 90 day(s), # 270 cap(s), Refills(s) 0, [facility]: [id number], 162, cm, 05/17/21 9:33:00 EST, [...] 3X/Day with meals and bedtime 0 May 23, 2024 12:00am Please contact the information source for Protocol details. 3 ml insulin isophane, human 100 unt/ml pen injector (3 sources) Start: 05-23-2024 Insulin Nph Isoph U-100 Human (Humulin N Nph Insulin Kwikpen) 100 unit/mL (3 mL) Insulin Pen Active 12 UNIT SUBCUT Twice daily 0 May 23, 2024 12:00am inject 0.12 mL by mao bcutaneous injection in the morning insulin NPH (HumuLIN N,NovoLIN N) 100 unit/mL injection Inject 0.12 mL (12 Units total) under the skin in the morning and 0.12 mL (12 Units total) in the evening. Inject with meals. Suspended insulin lispro 100 unt/ml injectable solution (4 sources) Insulin Analog insulin lispro (HumaLOG) 100 unit/mL injection Inject 0.03-0.12 mL (3-12 Units total) under the skin in the morning and 0.03-0.12 mL (3-12 Units total) at noon and 0.03-0.12 mL (3-12 Units total) in the evening. Inject before meals. If BG 150-199 = 3 units, 200-249 = 4 units, 250-299 = 7 units, 300-349 = 10 units, 350-399 = 12 units. Active levoFLOXacin 500 mg oral tablet (1 source) Quinolone Antimicrobial Start: 01-15-20 19 take 1 tablet by mouth once daily levoFLOXacin (LEVAQUIN) 500 mg tablet Take 500 mg by mouth once daily. 0 01/14/2019 Active LORazepam 0.5 mg oral tablet (1 source) Benzodiazepine Start: 06-27-19 25 End: 07-12-19 25 LORazepam (ATIVAN) 0.5 mg tablet Take 1 tablet (0.5 mg total) by mouth 6 (six) times a day. 06/27/2024 07/11/2024 Active magnesium oxide 400 mg oral tablet (5 sources) Start: 06-24-19 25 magnesium oxide (MAGOX) 400 mg tablet Administer 1 tablet (400 mg total) per tube in the morning. 30 tablet 2 06/24/2024 Active Start: 05-23-2024 take 1 tablet by lesley twice daily Magnesium Oxide 400 mg (241.3 mg magnesium) Tablet Active 400 MG PO Twice daily 0 May 23, 2024 12:00am meclizine hydrochloride 25 mg oral tablet (20 sources) Antiemetic Start: 12-27-2023 End: 05-23-2024 take 1 tablet by mouth three times daily as needed for dizziness meclizine (Antivert) 25 MG tablet Indications: Vertigo Take 1 tablet (25 mg) by mouth 3 (three) times a day as needed for dizziness 90 tablet 1 04/29/2024 Active melatonin 10 mg oral tablet (2 sources) Start: 06-24-2024 melatonin 10 mg tablet Administer 10 mg per tube nightly. 30 tablet 2 06/24/2024 Active metoprolol tartrate 25 mg oral tablet (5 sources) beta-Adrenergic David Start: 06-24-2024 take 0.5 tablet by mouth in the morning, then take 0.5 tablet by mouth at bedtime metoprolol tartrate (LOPRESSOR) 25 mg tablet Take 0.5 tablets (12.5 mg total) by mouth in the morning and 0.5 tablets (12.5 mg total) before bedtime. Hold for heart rate less than 60.. 30 tablet 2 06/24/2024 Active Start: 05-23-2024 Metoprolol Suc cinate 50 mg Tablet Extended Release 24 Hr Active 37.5 MG PO Twice daily 0 May 23, 2024 12:00am take 1.5 tablets by mouth every twenty-four hours at bedtime metoprolol succinate XL (TOPROL XL) 25 mg 24 hr tablet Take 1.5 tablets (37.5 mg total) by mouth in the morning and at bedtime. Suspended montelukast 10 mg oral tablet (20 sources) Leukotriene Receptor Antagonist Start: 06-24-2024 montelukast (SINGULAIR) 10 mg tablet Administer 1 tablet (10 mg total) per tube nightly. 30 tablet 2 06/24/2024 Active Start: 02-11-2017 take 1 tablet by lesley th at bedtime montelukast (Singulair) 10 MG tablet [...] instructions 1 each 0 06/23/2023 Active nystatin 608663 unt/ml oral suspension (19 sources) Polyene Antifungal Start: 2023 End: 2023 nystatin (Mycostatin) [id number] UNIT/ML suspension Indications: Thrush, oral Take 5 mL (500,000 Units) by mouth in the morning and 5 mL (500,000 Units) at noon and 5 mL (500,000 Units) in the evening and 5 mL (500,000 Units) before bedtime. Do all this for 10 days. 200 mL 04/20/2024 04/30/2024 Active Start: 02-16-2024 End: 03-01-2024 nystatin (Mycostatin) [id number] UNIT/ML suspension Indications: Thrush Take 5 mL (500,000 Units) by mouth in the morning and 5 mL (500,000 Units) at noon and 5 mL (500,000 Units) in the evening and 5 mL (500,000 Units) before bedtime. Do all this for 10 days. Swish and swallow. 200 mL 02/16/2024 03/01/2024 Discontinued Start: 12-29-2023 take [id number] [IU] by mouth four times daily Nystatin 100,000 unit/mL suspension Active [id number] UNIT PO Four times daily 112 December 28, 2023 11:00pm swish in the mouth and retain for as long as possible (several minutes) before swallowing Start: 12-25-2023 End: 01-04-2024 nystatin (Mycostatin) 447356 UNIT/ML suspension Indications: Oral thrush Take 5 mL (500,000 Units) by mouth in the morning and 5 mL (500,000 Units) at noon and 5 mL (500,000 Units) in the evening and 5 mL (500,000 Units) before bedtime. Do all this for 10 days. Swish in mouth and spit out.. 200 mL 12/25/2023 01/04/2024 Active nystatin (MYCOST ATIN) 100,000 unit/mL suspension Take 4 mL (400,000 Units total) by mouth in the morning and 4 mL (400,000 Units total) at noon and 4 mL (400,000 Units total) in the evening and 4 mL (400,000 Units total) before bedtime. Suspended End: 01-04-2024 nystatin (Mycostatin) [id number] UNIT/ML suspension Take 400,000 Units by mouth in the morning and 400,000 Units at noon and 400,000 Units in the evening and 400,000 Units before bedtime. For 7 days. 01/04/2024 Discontinued Tignall-3 Fatty Acids (FISH OI L PO) (20 sources) Tignall-3 Fatty Ac ids (FISH OIL PO) Take by mouth Active Tignall-3 Fatty Ac ids (FISH OIL PO) Take by mouth 0 Active Futgu-8-WWR-EPA-Fish Oil (FISH OIL) 1,000 (120-180) mg cap (1 source) take 1 capsule by mouth twice daily Ljlea-5-NHW-EPA-Fish Oil (FISH OIL) 1,000 (120-180) mg cap Take 2 g by mouth two times a day. Active Oyster-D oral tablet (10 sources) Star t: 08-09 17 take 1 tablet by mouth twice daily [...] 11/26/22 Status: Ordered take 1 capsule by [facility] every twenty-four hours polyethylene glycol 3350 34580 mg powder for oral solution (5 sources) Osmotic Laxative Start: 06-24-2024 polyethylene glycol (GLYCOLAX) 17 gram packet Administer 17 g per tube daily as needed (constipation). 30 packet 06/24/2024 Active Start: 05-23-2024 Polyethylene G lycol 3350 (Healthylax) 17 gram Powder In Packet [...] Status: Ordered QUEtiapine 25 mg oral tablet (5 sources) Atypical Antipsychotic Start: 06-24-2024 QUEtiapine (SEROquel) 25 mg tablet Administer 2 tablets (50 mg total) per tube nightly. 60 tablet 2 06/24/2024 Active Start: 05-23-2024 take 1 tablet by lesley th once daily at bedtime Quetiapine 25 mg [...] Start: 07-21-2017 take 1 tablet by lesley th once daily divalproex ER (DEPAKOTE ER) 250 mg 24 hr tablet Take 250 mg by mouth once daily. 1 07/21/2017 Active Start: 02-11-2017 End: 06-13-2024 take 2 tablets by mouth in the morning, then take 2 tablets by mouth at bedtime divalproex (DEPAKOTE) 250 mg EC tablet Take 2 tablets (500 mg total) by mouth in the morning and 2 tablets (500 mg total) before bedtime. 06/13/2024 Active Start: 02-11-2017 take 500 mg by mouth at bedtim e Divalproex Active 500 MG PO Bedtime February 11, 2017 12:00am Start: 02-11-2017 Divalproex Act errol February 11, 2017 12:00am take 1 tablet by lesley th every twenty-four hours in the morning, then take 1 tablet by mouth at bedtime divalproex (DEPAKOTE ER) 250 mg 24 hr tablet Take 1 tablet (250 mg total) by mouth in the morning and 1 tablet (250 mg total) before bedtime. Suspended vitamin b12 1 mg oral tablet (2 sources) Vitamin B12 Start: 06-25-2024 cyanocobalamin 1000 MCG tablet Administer 1 tablet (1,000 mcg total) per tube in the morning. 30 tablet 2 06/25/2024 Active walker (2 sources) Start: 09-24-2022 walker walker, [...] 12hr Discontinued 600 MG PO Twice daily 14 December 28, 2023 11:00pm May 02, 2024 [...] adhesive patch,medicated Discontinued 1 PATCH TOPICAL Daily November 24, 2020 11:00pm December 27, 2023 [...] 11, 2017 11:00pm March 12, 2017 11:04pm microencapsulated potassium chloride 10 meq extended release oral tablet (2 sources) take 1 tablet by mouth in the morning potassium chloride (K-TAB,KLOR-CON) 10 MEQ CR tablet Take 1 tablet (10 mEq total) by mouth in the morning and 1 tablet (10 mEq total) before bedtime. Suspended Problems Active Problems Problem Classification Problem Date Documented Da te Episodic/Chronic Acquired foot deformities (20 sources) Hammer toe; Translations: [Other hammer toe(s) (acquired), left foot] Onset: 3 04-13-2023 Chronic Acute cerebrovascular disease (5 sources) Intracranial hemorrhage; Translations: [Nontraumatic intracranial hemorrhage, unspecified] Onset: 5 06-12-2024 Chronic Administrative/social admission (20 sources) Other reduced mobility; Translations: [Impaired mobility and activities of daily living] Onset: 4 12-29-2023 Episodic Anxiety disorders (20 sources) Mixed anxiety and depressive disorder; Translations: [Anxiety disorder, unspecified] Onset: 3 10-22-2022 Chronic Asthma (20 sources) Asthma without status asthmaticus; Translations: [Unspecified asthma, uncomplicated] Onset: 3 10-19-2022 Chronic Bacterial infection; unspecified site (7 sources) Bacteremia caused by Gram-positive bacteria; Translations: [Bacteremia] Onset: 4 05-03-2024 Episodic Cardiac dysrhythmias (6 sources) Atrial fibrillation with rapid ventricular response; Translations: [Unspecified atrial fibrillation] Onset: 5 05-02-2024 Chronic Cardiac dysrhythmias (1 source) Tachycardia, unspecified; Translations: [Tachycardia, unspecified] Onset: 5 Episodic Chronic obstructive pulmonary disease and bronchiectasis (3 sources) Chronic obstructive lung disease; Translations: [Chronic obstructive pulmonary disease, unspecified] Onset: 5 11-21-2013 Chronic Chronic ulcer of skin (20 [...] Translations: [Mixed hyperlipidemia] Onset: 3 10-19-2022 Chronic Epilepsy; convulsions (4 sources) Seizure; Translations: [Unspecified convulsions] Onset: 5 06-12-2024 Episodic Esophageal disorders (20 sources) Gastroesophageal reflux disease; Translations: [Gastro-esophageal reflux disease without esophagitis] Onset: 3 10-31-2014 Chronic Essential hypertension (20 sources) Essential hypertension; Translations: [Essential (primary) hypertension] Onset: 3 10-19-2022 Chronic Fluid and electrolyte disorders (7 sources) Dehydration; Translations: [Dehydration] 12-27-2023 Episodic Headache; including migraine (20 sources) Migraine; Translations: [Migraine, unspecified, not intractable, without status migrainosus] Onset: 8 10-19-2022 Chronic Immunizations and screening for infectious disease (4 sources) Patient encounter status; Translations: [Encounter for screening for malignant neoplasm of prostate] 03-31-2024 Episodic Malignant neoplasm without specification of site (3 sources) Malignant neoplastic disease; Translations: [Malignant (primary) neoplasm, unspecified] Onset: 5 11-21-2013 Chronic Mood disorders (20 sources) Recurrent major depression in partial remission; Translations: [Major depressive disorder, recurrent, in partial remission] Onset: 3 04-13-2023 Chronic Non-Hodgkin`s lymphoma (20 sources) Malignant lymphoma; Translations: [Non-Hodgkin's lymphoma (clinical)] Onset: 3 06-04-2016 Chronic Nutritional deficiencies (4 sources) Deficiency of macronutrients; Translations: [Unspecified severe protein-calorie malnutrition] Onset: 5 06-13-2024 Chronic Osteoarthritis (20 sources) Osteoarthritis; Translations: [Arthritis] [...] [Allergic rhinitis, unspecified] Onset: 3 10-19-2022 Chronic Pneumonia (except that caused by tuberculosis or sexually transmitted disease) (20 sources) Community acquired pneumonia; Translations: [Pneumonia, unspecified organism] Onset: 4 12-27-2023 Episodic Residual codes; unclassified (20 sources) Obstructive sleep apnea syndrome; Translations: [Obstructive sleep apnea (adult) (pediatric)] Onset: 8 09-02-2023 Chronic Residual codes; unclassified (20 sources) Hypersomnia disorder related to a known organic factor; Translations: [Hypersomnia, unspecified] Onset: 9 09-02-2023 Chronic Residual codes; unclassified (3 sources) Postprocedural state finding; Translations: [Presence of other [...] 05-23-2024 Episodic Residual codes; unclassified (1 source) Pain, unspecified; Translations: [Pain, unspecified] Onset: Episodic Residual codes; unclassified (1 source) Disorientation, unspecified; Translations: [Disorientation, unspecified] Onset: 4 Episodic Respiratory failure; insufficiency; arrest (adult) (3 sources) Dvpoe-yn-saredyj respiratory failure; Translations: [Acute and chronic respiratory failure, unspecified whether with hypoxia or hypercapnia] Onset: 4 05-16-2024 Chronic Respiratory failure; insufficiency; arrest (adult) (3 sources) Acute respiratory failure; Translations: [Acute respiratory failure with hypoxia] Onset: 4 05-12-2024 Episodic Retinal detachments; defects; vascular occlusion; and retinopathy (3 sources) Unspecified retinal vascular occlusion; Translations: [Retinal vascular occlusion, unspecified] Onset: 5 11-21-2013 Chronic Rheumatoid arthritis and related disease [...] (2 sources) Impaired mobility and ADLs 03-01-2024 Unclassified (1 source) Intercranial hemorrhage Onset: 5 Urinary tract infections (3 sources) Urinary tract infectious disease; Translations: [Urinary tract infection, site not specified] Onset: 4 05-02-2024 Episodic Viral infection (11 sources) Disease caused by 2019-nCoV; Translations: [COVID-19] 06-23-2023 Episodic Viral infection (1 source) COVID-19; Translations: [COVID-19] Onset: 4 Past or Other Problems Problem Classification Problem Date Documented Date Episodic/Chronic Diabetes mellitus without complication (20 sources) Prediabetes; Translations: [Prediabetes] Onset: 11-25-2023 11-25-2023 Episodic Headache; including migraine (4 sources) Headache; Translations: [Mixed headache] Onset: 01-26-2015 03-18-2024 Episodic Mood disorders (20 sources) Mood disorders Onset: 02-20-2023 Resolved: 06-13-2024 02-20-2023 Mycoses (12 sources) Candidiasis of mouth; Translations: [Candidal stomatitis] Onset: 12-27-2023 12-27-2023 Episodic Non-Hodgkin`s lymphoma (20 sources) History of non-Hodgkins lymphoma; Translations: [Personal history of non-Hodgkin lymphomas] Onset: 07-26-2014 10-22-2022 Episodic Open wounds of head; neck; and trunk (7 sources) Laceration - injury; Translations: [Laceration] Onset: 12-15-2023 12-08-2023 Episodic Other aftercare (20 sources) Long-term current use of opiate analgesic drug; Translations: [[facility] (current) use of opiate analgesic] Onset: 11-27-2021 10-22-2022 Episodic Other connective tissue disease (20 sources) Recurrent falls ; Translations: [Repeated falls] Onset: 01-04-2024 01-11-2024 Episodic Other connective tissue disease (3 sources) Pain in buttock; Translations: [Myalgia, other site] [...] joint, upper arm] Onset: 10-21-2023 10-21-2023 Episodic Residual codes; unclassified (20 sources) Insomnia; Translations: [Insomnia, unspecified] Onset: 10-19-2022 10-19-2022 Episodic Residual codes; unclassified (3 sources) H/O Spinal surgery; Translations: [Other specified postprocedural [...] [Dorsalgia, unspecified] Onset: 11-21-2013 11-25-2020 Episodic Unclassified (14 sources) Onset: 03-01-2024 03-01-2024 Results Test Name Value Interpretation Reference Range Facility BASIC METABOLIC PANLon 06-24 Anion gap [Moles/Vol] 6 mmol/L Normal 5-15 [facility] Comment on above: Performed By: #### C BCA, BMP, 73395-2, 2777-1 #### [facility] ([id number]) [address], [address] [place] [address] Calcium [Mass/Vol] 8.9 mg/dL Normal 8.5-10.5 [facility] Comment on above: Performed By: #### C BCA, BMP, 45057-4, 2777-1 #### [facility] ([id number]) [address], [address] [place] [address] Chloride [Moles/Vol] 103 mmol/L Normal 98-109 [facility] Comment on above: Performed By: #### C EPI CROCKER, , 2776-05 #### [facility] ([id number]) [address], [address] [place] [address] CO2 [Moles/Vol] 27 mmol/L Normal 22-32 [facility] Comment on above: Performed By: #### C EPI CROCKER, , 2776-05 #### [facility] ([id number]) [address], [address] [place] [address] Creatinine [Mass/Vol] 0.69 mg/dL Normal 0.60-1.30 [facility] Comment on above: Result Comment: METH OD TRACEABLE TO IDMS STANDARD Performed By: #### C EPI CROCKER, , 2776-05 #### [facility] ([id number]) [address], [address] [place] [address] eGFR (CKD-EPI) NON-RACE DEPENDENT >90 Normal >59 [facility] Comment on above: Result Comment: Reported eGFR is based on the CKD-EPI 1 equation that does not use a race coefficient. Performed By: #### C EPI CROCKER, , 2776-05 #### [facility] ([id number]) [address], [address] [place] [address] Glucose [Mass/Vol] 109 mg/dL High 65-99 [facility] Comment on above: Performed By: #### C EPI CROCKER, , 2776-05 #### [facility] ([id number]) [address], [address] [place] [address] Potassium [Moles/Vol] 4.5 mmol/L Normal 3.5-5.0 [facility] Comment on above: Performed By: #### C BCA, BMP, , 2776-05 #### [facility] ([id number]) [address], [address] [place] [address] Sodium [Moles/Vol] 136 mmol/L Normal 134-146 [facility] Comment on above: Performed By: #### C LIZZETTE, [facility], , 2776-05 #### [facility] ([id number]) [address], [address] [place] [address] Urea nitrogen [Mass/Vol] 11 mg/dL Normal 5-27 [facility] Comment on above: Performed By: #### C LIZZETTE, BMP, , 2776-05 #### [facility] ([id number]) [address], [address] [place] [address] CBC AND AUTO DIFFon 06-24-19 25 ABSOLUTE BASOPHIL 0.1 X10E9/L Normal 0.0-0.2 [facility] Comment on above: Performed By: #### C LIZZETTE, [facility], , 2776-05 #### [facility] ([id number]) [address], [address] [place] [address] ABSOLUTE NEUTROPHIL 7.8 X10E9/L High 1.5-6.6 [facility] Comment on above: Performed By: #### C LIZZETTE, BMP, , 2776-05 #### [facility] ([id number]) [address], [address] [place] [address] Basophils/100 WBC (Bld) 1.0 % Normal [facility] Comment on above: Performed By: #### C BCA, BMP, , 2776-05 #### [facility] ([id number]) [address], [address] [place] [address] Eosinophils (Bld) [#/Vol] 0.1 10*3/uL Normal 0.0-0.4 [facility] Comment on above: Performed By: #### C LIZZETTE, BMP, , 2776-05 #### [facility] ([id number]) [address], [address] [place] [address] Eosinophils/100 WBC (Bld) 1.2 % Normal [facility] Comment on above: Performed By: #### C LIZZETTE, BMP, , 2776-05 #### [facility] ([id number]) [address], [address] [place] [address] Erythrocyte distribution width (RBC) [Ratio] 17.7 % High 11.5-15.0 [facility] Comment on above: Performed By: #### C LIZZETTE, BMP, , 2776-05 #### [facility] ([id number]) [address], [address] [place] [address] Hematocrit (Bld) [Volume fraction] 26.9 % Low 39-49 [facility] Comment on above: Performed By: #### C LIZZETTE, BMP, , 2776-05 #### [facility] ([id number]) [address], [address] [place] [address] Hemoglobin (Bld) [Mass/Vol] 9.0 g/dL Low 13.0-17.0 [facility] Comment on above: Performed By: #### C LIZZETTE, BMP, , 2776-05 #### [facility] ([id number]) [address], [address] [place] [address] Lymphocytes (Bld) [#/Vol] 3.2 10*3/uL Normal 1.0-3.5 [facility] Comment on above: Performed By: #### C BCA, BMP, , 2776-05 #### [facility] ([id number]) [address], [address] [place] [address] Lymphocytes/100 WBC (Bld) 26.2 % Normal [facility] Comment on above: Performed By: #### C LIZZETTE BMP, , 2776-05 #### [facility] ([id number]) [address], [address] [place] [address] MCH (RBC) [Entitic mass] 34.1 pg High 27-34 [facility] Comment on above: Performed By: #### Sandra CROCKER, BMP, , 2776-05 #### [facility] ([id number]) [address], [address] [place] [address] MCHC (RBC) [Mass/Vol] 33.6 g/dL Normal 32-36 [facility] Comment on above: Performed By: #### Sandra CROCKER, BMP, , 2776-05 #### [facility] ([id number]) [address], [address] [place] [address] MCV (RBC) [Entitic vol] 101 fL High 80-100 [facility] Comment on above: Performed By: #### Sandra CROCKER, BMP, , 2776-05 #### [facility] ([id number]) [address], [address] [place] [address] Monocytes (Bld) [#/Vol] 0.8 10*3/uL Normal 0-0.9 [facility] Comment on above: Performed By: #### Sandra CROCKER, BMP, , 2776-05 #### [facility] ([id number]) [address], [address] [place] [address] Monocytes/100 WBC (Bld) 7.0 % Normal [facility] Comment on above: Performed By: #### Sandra BCA, BMP, , 2776-05 #### [facility] ([id number]) [address], [address] [place] [address] Neutrophils/100 WBC (Bld) 64.6 % Normal [facility] Comment on above: Performed By: #### EPI Flores BCA, , 2776-05 #### [facility] ([id number]) [address], [address] [place] [address] Platelet mean volume (Bld) [Entitic vol] 7.1 fL Normal 7-12 [facility] Comment on above: Performed By: #### EPI Flores BCA, , 2776-05 #### [facility] ([id number]) [address], [address] [place] [address] Platelets (Bld) [#/Vol] 496 10*3/uL High 150-450 [facility] Comment on above: Performed By: #### EPI Flores BCA, , 2776-05 #### [facility] ([id number]) [address], [address] [place] [address] RBC COUNT 2.65 X10E12/L Low 4.10-5.70 [facility] Comment on above: Performed By: #### EPI Flores BCA, , 2776-05 #### [facility] ([id number]) [address], [address] [place] [address] WBC (Bld) [#/Vol] 12.1 10*3/uL High 4.0-11.0 [facility] Comment on above: Performed By: #### EPI Flores BCA, , 2776-05 #### [facility] ([id number]) [address], [address] [place] [address] Glucose Glucometer (BldC) [M ass/Vol]on 06-24-2024 Glucose [Mass/Vol] 110 mg/dL High 65-99 [facility] Glucose [Mass/Vol] 111 mg/dL High 65-99 [facility] BASIC METABOLIC PANLon 06-23 Anion gap [Moles/Vol] 8 mmol/L Normal 5-15 [facility] Comment on above: Performed By: #### C BCA, BMP, , 2776-05 #### [facility] ([id number]) [address], [address] [place] [address] Calcium [Mass/Vol] 8.0 mg/dL Low 8.5-10.5 [facility] Comment on above: Performed By: #### C BCA, BMP, , 2776-05 #### [facility] ([id number]) [address], [address] [place] [address] Chloride [Moles/Vol] 104 mmol/L Normal 98-109 [facility] Comment on above: Performed By: #### C BCA, BMP, , 2776-05 #### [facility] ([id number]) [address], [address] [place] [address] CO2 [Moles/Vol] 25 mmol/L Normal 22-32 [facility] Comment on above: Performed By: #### C BCA, BMP, , 2776-05 #### [facility] ([id number]) [address], [address] [place] [address] Creatinine [Mass/Vol] 0.77 mg/dL Normal 0.60-1.30 [facility] Comment on above: Result Comment: METH OD TRACEABLE TO IDMS STANDARD Performed By: #### C BCA, BMP, , 2776-05 #### [facility] ([id number]) [address], [address] [place] [address] eGFR (CKD-EPI) NON-RACE DEPENDENT >90 Normal >59 [facility] Comment on above: Result Comment: Reported eGFR is based on the CKD-EPI 2020 equation that does not use a race coefficient. Performed By: #### C BCA, BMP, , 2776-05 #### [facility] ([id number]) [address], [address] [place] [address] Glucose [Mass/Vol] 120 mg/dL High 65-99 [facility] Comment on above: Performed By: #### C EPI CROCKER, , 2776-05 #### [facility] ([id number]) [address], [address] [place] [address] Potassium [Moles/Vol] 4.1 mmol/L Normal 3.5-5.0 [facility] Comment on above: Performed By: #### C LIZZETTE, EPI, , 2776-05 #### [facility] ([id number]) [address], [address] [place] [address] Sodium [Moles/Vol] 137 mmol/L Normal 134-146 [facility] Comment on above: Performed By: #### C LIZZETTE, EPI, , 2776-05 #### [facility] ([id number]) [address], [address] [place] [address] Urea nitrogen [Mass/Vol] 13 mg/dL Normal 5-27 [facility] Comment on above: Performed By: #### C EPI CROCKER, , 2776-05 #### [facility] ([id number]) [address], [address] [place] [address] CBC AND AUTO DIFFon 06-23-19 25 ABSOLUTE BASOPHIL 0.1 X10E9/L Normal 0.0-0.2 [facility] Comment on above: Performed By: #### C LIZZETTE, BMP, , 2776-05 #### [facility] ([id number]) [address], [address] [place] [address] ABSOLUTE NEUTROPHIL 7.0 X10E9/L High 1.5-6.6 [facility] Comment on above: Performed By: #### C LIZZETTE, BMP, , 2776-05 #### [facility] ([id number]) [address], [address] [place] [address] Basophils/100 WBC (Bld) 0.9 % Normal [facility] Comment on above: Performed By: #### C LIZZETTE, BMP, , 2776-05 #### [facility] ([id number]) [address], [address] [place] [address] Eosinophils (Bld) [#/Vol] 0.1 10*3/uL Normal 0.0-0.4 [facility] Comment on above: Performed By: #### C LIZZETTE, BMP, , 2776-05 #### [facility] ([id number]) [address], [address] [place] [address] Eosinophils/100 WBC (Bld) 1.1 % Normal [facility] Comment on above: Performed By: #### C LIZZETTE, BMP, , 2776-05 #### [facility] ([id number]) [address], [address] [place] [address] Erythrocyte distribution width (RBC) [Ratio] 17.9 % High 11.5-15.0 [facility] Comment on above: Performed By: #### C LIZZETTE BMP, , 2776-05 #### [facility] ([id number]) [address], [address] [place] [address] Hematocrit (Bld) [Volume fraction] 24.2 % Low 39-49 [facility] Comment on above: Performed By: #### C LIZZETTE, BMP, , 2776-05 #### [facility] ([id number]) [address], [address] [place] [address] Hemoglobin (Bld) [Mass/Vol] 8.3 g/dL Low 13.0-17.0 [facility] Comment on above: Performed By: #### C LIZZETTE, BMP, , 2776-05 #### [facility] ([id number]) [address], [address] [place] [address] Lymphocytes (Bld) [#/Vol] 3.5 10*3/uL Normal 1.0-3.5 [facility] Comment on above: Performed By: #### C LIZZETTE, [facility], , 2776-05 #### [facility] ([id number]) [address], [address] [place] [address] Lymphocytes/100 WBC (Bld) 30.9 % Normal [facility] Comment on above: Performed By: #### C LIZZETTE, [facility], , 2776-05 #### [facility] ([id number]) [address], [address] [place] [address] MCH (RBC) [Entitic mass] 34.7 pg High 27-34 [facility] Comment on above: Performed By: #### C LIZZETTE, [facility], , 2776-05 #### [facility] ([id number]) [address], [address] [place] [address] MCHC (RBC) [Mass/Vol] 34.1 g/dL Normal 32-36 [facility] Comment on above: Performed By: #### C LIZZETTE [facility], , 2776-05 #### [facility] ([id number]) [address], [address] [place] [address] MCV (RBC) [Entitic vol] 102 fL High 80-100 [facility] Comment on above: Performed By: #### C LIZZETTE, BMP, , 2776-05 #### [facility] ([id number]) [address], [address] [place] [address] Monocytes (Bld) [#/Vol] 0.6 10*3/uL Normal 0-0.9 [facility] Comment on above: Performed By: #### C BCA, BMP, , 2776-05 #### [facility] ([id number]) [address], [address] [place] [address] Monocytes/100 WBC (Bld) 5.3 % Normal [facility] Comment on above: Performed By: #### Sandra BCA, BMP, , 2776-05 #### [facility] ([id number]) [address], [address] [place] [address] Neutrophils/100 WBC (Bld) 61.8 % Normal [facility] Comment on above: Performed By: #### Sandra CROCKER, BMP, , 2776-05 #### [facility] ([id number]) [address], [address] [place] [address] Platelet mean volume (Bld) [Entitic vol] 7.0 fL Normal 7-12 [facility] Comment on above: Performed By: #### Sandra CROCKER, BMP, , 2776-05 #### [facility] ([id number]) [address], [address] [place] [address] Platelets (Bld) [#/Vol] 407 10*3/uL Normal 150-450 [facility] Comment on above: Performed By: #### Sandra BCA, BMP, , 2776-05 #### [facility] ([id number]) [address], [address] [place] [address] RBC COUNT 2.38 X10E12/L Low 4.10-5.70 [facility] Comment on above: Performed By: #### C BCA, BMP, , 2776-05 #### [facility] ([id number]) [address], [address] [place] [address] WBC (Bld) [#/Vol] 11.3 10*3/uL High 4.0-11.0 [facility] Comment on above: Performed By: #### C EPI CROCKER, , 2776-05 #### [facility] ([id number]) [address], [address] [place] [address] Glucose Glucometer (BldC) [M ass/Vol]on 06-23-2024 Glucose [Mass/Vol] 97 mg/dL Normal 65-99 [facility] Glucose [Mass/Vol] 106 mg/dL High 65-99 [facility] Glucose [Mass/Vol] 101 mg/dL High 65-99 [facility] Glucose [Mass/Vol] 102 mg/dL High 65-99 [facility] Glucose [Mass/Vol] 88 mg/dL Normal 65-99 [facility] Glucose [Mass/Vol] 122 mg/dL High 65-99 [facility] Glucose [Mass/Vol] 97 mg/dL Normal 65-99 [facility] BASIC METABOLIC PANLon 06-22 Anion gap [Moles/Vol] 6 mmol/L Normal 5-15 [facility] Comment on above: Performed By: #### C EPI CROCKER, , 2776-05 #### [facility] ([id number]) [address], [address] [place] [address] Calcium [Mass/Vol] 8.1 mg/dL Low 8.5-10.5 [facility] Comment on above: Performed By: #### EPI Flores BCA, , 2776-05 #### [facility] ([id number]) [address], [address] [place] [address] Chloride [Moles/Vol] 106 mmol/L Normal 98-109 [facility] Comment on above: Performed By: #### EPI Flores BCA, , 2776-05 #### [facility] ([id number]) [address], [address] [place] [address] CO2 [Moles/Vol] 26 mmol/L Normal 22-32 [facility] Comment on above: Performed By: #### C LIZZETTE BMP, , 2776-05 #### [facility] ([id number]) [address], [address] [place] [address] Creatinine [Mass/Vol] 0.80 mg/dL Normal 0.60-1.30 [facility] Comment on above: Result Comment: METH OD TRACEABLE TO IDMS STANDARD Performed By: #### C LIZZETTE, BMP, , 2776-05 #### [facility] ([id number]) [address], [address] [address] eGFR (CKD-EPI) NON-RACE DEPENDENT >90 Normal >59 [facility] Comment on above: Result Comment: Reported eGFR is based on the CKD-EPI 2020 equation that does not use a race coefficient. Performed By: #### C LIZZETTE BMP, , 2776-05 #### [facility] ([id number]) [address], [address] [place] [address] Glucose [Mass/Vol] 108 mg/dL High 65-99 [facility] Comment on above: Performed By: #### C LIZZETTE, BMP, , 2776-05 #### [facility] ([id number]) [address], [address] [place] [address] Potassium [Moles/Vol] 4.4 mmol/L Normal 3.5-5.0 [facility] Comment on above: Performed By: #### C LIZZETTE, BMP, , 2776-05 #### [facility] ([id number]) [address], [address] [place] [address] Sodium [Moles/Vol] 138 mmol/L Normal 134-146 [facility] Comment on above: Performed By: #### C LIZZETTE, BMP, , 2776-05 #### [facility] ([id number]) [address], [address] [place] [address] Urea nitrogen [Mass/Vol] 13 mg/dL Normal 5-27 [facility] Comment on above: Performed By: #### C LIZZETTE, BMP, , 2776-05 #### [facility] ([id number]) [address], [address] [place] [address] CBC AND AUTO DIFFon 06-22-19 25 ABSOLUTE BASOPHIL 0.2 X10E9/L Normal 0.0-0.2 [facility] Comment on above: Performed By: #### C LIZZETTE, BMP, , 2776-05 #### [facility] ([id number]) [address], [address] [place] [address] ABSOLUTE NEUTROPHIL 11.0 X10E9/L High 1.5-6.6 [facility] Comment on above: Performed By: #### C LIZZETTE, BMP, , 2776-05 #### [facility] ([id number]) [address], [address] [place] [address] Basophils/100 WBC (Bld) 1.3 % Normal [facility] Comment on above: Performed By: #### C LIZZETTE, BMP, , 2776-05 #### [facility] ([id number]) [address], [address] [place] [address] Eosinophils (Bld) [#/Vol] 0.1 10*3/uL Normal 0.0-0.4 [facility] Comment on above: Performed By: #### C LIZZETTE, BMP, , 2776-05 #### [facility] ([id number]) [address], [address] [place] [address] Eosinophils/100 WBC (Bld) 0.7 % Normal [facility] Comment on above: Performed By: #### C BCA, BMP, , 2776-05 #### [facility] ([id number]) [address], [address] [place] [address] Erythrocyte distribution width (RBC) [Ratio] 18.2 % High 11.5-15.0 [facility] Comment on above: Performed By: #### C BCA, [facility], , 2776-05 #### [facility] ([id number]) [address], [address] [place] [address] Hematocrit (Bld) [Volume fraction] 24.8 % Low 39-49 [facility] Comment on above: Performed By: #### C BCA, [facility], , 2776-05 #### [facility] ([id number]) [address], [address] [place] [address] Hemoglobin (Bld) [Mass/Vol] 8.2 g/dL Low 13.0-17.0 [facility] Comment on above: Performed By: #### C BCA, [facility], , 2776-05 #### [facility] ([id number]) [address], [address] [place] [address] Lymphocytes (Bld) [#/Vol] 4.4 10*3/uL High 1.0-3.5 [facility] Comment on above: Performed By: #### C BCA, [facility], , 2776-05 #### [facility] ([id number]) [address], [address] [place] [address] Lymphocytes/100 WBC (Bld) 27.0 % Normal [facility] Comment on above: Performed By: #### C BCA, BMP, , 2776-05 #### [facility] ([id number]) [address], [address] [place] [address] MCH (RBC) [Entitic mass] 33.8 pg Normal 27-34 [facility] Comment on above: Performed By: #### C LIZZETTE BMP, , 2776-05 #### [facility] ([id number]) [address], [address] [place] [address] MCHC (RBC) [Mass/Vol] 32.9 g/dL Normal 32-36 [facility] Comment on above: Performed By: #### C LIZZETTE, BMP, , 2776-05 #### [facility] ([id number]) [address], [address] [place] [address] MCV (RBC) [Entitic vol] 103 fL High 80-100 [facility] Comment on above: Performed By: #### Sandra CROCKER, BMP, , 2776-05 #### [facility] ([id number]) [address], [address] [place] [address] Monocytes (Bld) [#/Vol] 0.4 10*3/uL Normal 0-0.9 [facility] Comment on above: Performed By: #### C LIZZETTE, BMP, , 2776-05 #### [facility] ([id number]) [address], [address] [place] [address] Monocytes/100 WBC (Bld) 2.7 % Normal [facility] Comment on above: Performed By: #### Sandra CROCKER, BMP, , 2776-05 #### [facility] ([id number]) [address], [address] [place] [address] Neutrophils/100 WBC (Bld) 68.3 % Normal [facility] Comment on above: Performed By: #### C LIZZETTE, BMP, , 2776-05 #### [facility] ([id number]) [address], [address] [place] [address] Platelet mean volume (Bld) [Entitic vol] 7.3 fL Normal 7-12 [facility] Comment on above: Performed By: #### Sandra CROCKER, EPI, , 2776-05 #### [facility] ([id number]) [address], [address] [place] [address] Platelets (Bld) [#/Vol] 431 10*3/uL Normal 150-450 [facility] Comment on above: Performed By: #### Sandra CROCKER, BMP, , 2776-05 #### [facility] ([id number]) [address], [address] [place] [address] RBC COUNT 2.41 X10E12/L Low 4.10-5.70 [facility] Comment on above: Performed By: #### Sandra CROCKER, EPI, , 2776-05 #### [facility] ([id number]) [address], [address] [place] [address] WBC (Bld) [#/Vol] 16.2 10*3/uL High 4.0-11.0 [facility] Comment on above: Performed By: #### Sandra CROCKER, EPI, , 2776-05 #### [facility] ([id number]) [address], [address] [place] [address] Calcium.ionized (Bld) [Mass/ Vol]on 06-22-2024 IONIZED CALCIUM 4.7 mg/dL Normal 4.5-5.3 [facility] Comment on above: Performed By: #### Sandra CROCKER, BMP, , 2776-05 #### [facility] ([id number]) [address], [address] [place] [address] Glucose Glucometer (BldC) [M ass/Vol]on 06-22-2024 Glucose [Mass/Vol] 90 mg/dL Normal 65-99 [facility] Glucose [Mass/Vol] 74 mg/dL Normal 65-99 [facility] Glucose [Mass/Vol] 90 mg/dL Normal 65-99 [facility] Glucose [Mass/Vol] 81 mg/dL Normal 65-99 [facility] Glucose [Mass/Vol] 92 mg/dL Normal 65-99 [facility] Glucose [Mass/Vol] 87 mg/dL Normal 65-99 [facility] BASIC METABOLIC PANLon 06-21 Anion gap [Moles/Vol] 6 mmol/L Normal 5-15 [facility] Comment on above: Performed By: #### EPI Flores BCA, 60478-0 #### [facility] ([id number]) [address], [address] [place] [address] Calcium [Mass/Vol] 8.3 mg/dL Low 8.5-10.5 [facility] Comment on above: Performed By: #### EPI Flores BCA, 48329-2 #### [facility] ([id number]) [address], [address] [place] [address] Chloride [Moles/Vol] 108 mmol/L Normal 98-109 [facility] Comment on above: Performed By: #### EPI Flores BCA, 20997-5 #### [facility] ([id number]) [address], [address] [place] [address] CO2 [Moles/Vol] 27 mmol/L Normal 22-32 [facility] Comment on above: Performed By: #### EPI Flores BCA, 56610-8 #### [facility] ([id number]) [address], [address] [place] [address] Creatinine [Mass/Vol] 0.75 mg/dL Normal 0.60-1.30 [facility] Comment on above: Result Comment: METH OD TRACEABLE TO IDMS STANDARD Performed By: #### EPI Flores BCA, 39985-3 #### [facility] ([id number]) [address], [address] [place] [address] eGFR (CKD-EPI) NON-RACE DEPENDENT >90 Normal >59 [facility] Comment on above: Result Comment: Reported eGFR is based on the CKD-EPI 2020 equation that does not use a race coefficient. Performed By: #### C EPI CROCKER, 14419-3 #### [facility] ([id number]) [address], [address] [place] [address] Glucose [Mass/Vol] 109 mg/dL High 65-99 [facility] Comment on above: Performed By: #### EPI Flores BCA, 70916-6 #### [facility] ([id number]) [address] [address] [place] [address] Potassium [Moles/Vol] 4.5 mmol/L Normal 3.5-5.0 [facility] Comment on above: Performed By: #### EPI Flores BCA, 19727-5 #### [facility] ([id number]) [address], [facility] [address] [place] [address] Sodium [Moles/Vol] 141 mmol/L Normal 134-146 [facility] Comment on above: Performed By: #### EPI Flores BCA, 43656-9 #### [facility] ([id number]) [address], [address] [place] [address] Urea nitrogen [Mass/Vol] 16 mg/dL Normal 5-27 [facility] Comment on above: Performed By: #### EPI Flores BCA, 60710-3 #### [facility] ([id number]) [address] [address] [place] [address] CBC AND AUTO DIFFon 06-21-19 25 ABSOLUTE BASOPHIL 0.1 X10E9/L Normal 0.0-0.2 [facility] Comment on above: Performed By: #### EPI Flores BCA, 00064-9 #### [facility] ([id number]) [address] [place] [address] ABSOLUTE NEUTROPHIL 9.3 X10E9/L High 1.5-6.6 [facility] Comment on above: Performed By: #### C EPI CROCKER, 01038-1 #### [facility] ([id number]) [address], [address] [place] [address] Basophils/100 WBC (Bld) 1.0 % Normal [facility] Comment on above: Performed By: #### C EPI CROCKER, 21543-2 #### [facility] ([id number]) [address], [address] [place] [address] Eosinophils (Bld) [#/Vol] 0.1 10*3/uL Normal 0.0-0.4 [facility] Comment on above: Performed By: #### EPI Flores BCA, 19283-3 #### [facility] ([id number]) [address], [address] [place] [address] Eosinophils/100 WBC (Bld) 0.9 % Normal [facility] Comment on above: Performed By: #### EPI Flores BCA, 81629-4 #### [facility] ([id number]) [address], [address] [place] [address] Erythrocyte distribution width (RBC) [Ratio] 17.4 % High 11.5-15.0 [facility] Comment on above: Performed By: #### EPI Flores BCA, 20543-0 #### [facility] ([id number]) [address], [address] [place] [address] Hematocrit (Bld) [Volume fraction] 26.2 % Low 39-49 [facility] Comment on above: Performed By: #### EPI Flores BCA, 42937-4 #### [facility] ([id number]) [address], [address] [place] [address] Hemoglobin (Bld) [Mass/Vol] 8.6 g/dL Low 13.0-17.0 [facility] Comment on above: Performed By: #### C EPI CROCKER, 34530-2 #### [facility] ([id number]) [address], [address] [place] [address] Lymphocytes (Bld) [#/Vol] 3.6 10*3/uL High 1.0-3.5 [facility] Comment on above: Performed By: #### EPI Flores BCA, 43461-5 #### [facility] ([id number]) [address], [address] [place] [address] Lymphocytes/100 WBC (Bld) 26.2 % Normal [facility] Comment on above: Performed By: #### EPI Flores BCA, 28609-8 #### [facility] ([id number]) [address], [address] [place] [address] MCH (RBC) [Entitic mass] 33.6 pg Normal 27-34 [facility] Comment on above: Performed By: #### EPI Flores BCA, 63555-1 #### [facility] ([id number]) [address], [address] [place] [address] MCHC (RBC) [Mass/Vol] 32.6 g/dL Normal 32-36 [facility] Comment on above: Performed By: #### EPI Flores BCA, 69397-5 #### [facility] ([id number]) [address], [address] [place] [address] MCV (RBC) [Entitic vol] 103 fL High 80-100 [facility] Comment on above: Performed By: #### EPI Flores BCA, 88543-0 #### [facility] ([id number]) [address] [address] [place] [address] Monocytes (Bld) [#/Vol] 0.6 10*3/uL Normal 0-0.9 [facility] Comment on above: Performed By: #### EPI Flores BCA, 99643-1 #### [facility] ([id number]) [address], [address] [place] [address] Monocytes/100 WBC (Bld) 4.2 % Normal P [facility] Comment on above: Performed By: #### EPI Flores BCA, 02742-1 #### [facility] ([id number]) [address], [address] [place] [address] Neutrophils/100 WBC (Bld) 67.7 % Normal [facility] Comment on above: Performed By: #### EPI Flores BCA, 18257-0 #### [facility] ([id number]) [address], [address] [place] [address] Platelet mean volume (Bld) [Entitic vol] 7.2 fL Normal 7-12 [facility] Comment on above: Performed By: #### EPI Flores BCA, 58454-0 #### [facility] ([id number]) [address], [address] [place] [address] Platelets (Bld) [#/Vol] 420 10*3/uL Normal 150-450 [facility] Comment on above: Performed By: #### EPI Flores BCA, 12037-2 #### [facility] ([id number]) [address], [address] [place] [address] RBC COUNT 2.55 X10E12/L Low 4.10-5.70 [facility] Comment on above: Performed By: #### EPI Flores BCA, 27926-6 #### [facility] ([id number]) [address], [address] [place] [address] WBC (Bld) [#/Vol] 13.8 10*3/uL High 4.0-11.0 [facility] Comment on above: Performed By: #### EPI Flores BCA, 06436-6 #### [facility] ([id number]) [address], [address] [place] [address] Glucose Glucometer (BldC) [M ass/Vol]on 06-21-2024 Glucose [Mass/Vol] 127 mg/dL High 65-99 [facility] Glucose [Mass/Vol] 112 mg/dL High 65-99 [facility] Glucose [Mass/Vol] 112 mg/dL High 65-99 [facility] Glucose [Mass/Vol] 99 mg/dL Normal 65-99 [facility] BASIC METABOLIC PANLon 06-20 Anion gap [Moles/Vol] 9 mmol/L Normal 5-15 [facility] Comment on above: Performed By: #### C EPI CROCKER, 99244-5 #### [facility] ([id number]) [address], [address] [place] [address] Calcium [Mass/Vol] 8.2 mg/dL Low 8.5-10.5 [facility] Comment on above: Performed By: #### EPI Flores BCA, 44049-3 #### [facility] ([id number]) [address] [place] [address] Chloride [Moles/Vol] 112 mmol/L High 98-109 [facility] Comment on above: Performed By: #### EPI Flores BCA, 32953-3 #### [facility] ([id number]) [address], [address] [place] [address] CO2 [Moles/Vol] 24 mmol/L Normal 22-32 [facility] Comment on above: Performed By: #### EPI Flores BCA, 57553-8 #### [facility] ([id number]) [address], [address] [place] [address] Creatinine [Mass/Vol] 0.72 mg/dL Normal 0.60-1.30 [facility] Comment on above: Result Comment: METH OD TRACEABLE TO IDMS STANDARD Performed By: #### EPI Flores BCA, 68200-9 #### [facility] ([id number]) [address], [address] [place] [address] eGFR (CKD-EPI) NON-RACE DEPENDENT >90 Normal >59 [facility] Comment on above: Result Comment: Reported eGFR is based on the CKD-EPI 2020 equation that does not use a race coefficient. Performed By: #### C EPI CROCKER, 36058-5 #### [facility] ([id number]) [address], [facility] [address] [place] [address] Glucose [Mass/Vol] 113 mg/dL High 65-99 [facility] Comment on above: Performed By: #### EPI Flores BCA, 92964-2 #### [facility] ([id number]) [address] [address] [place] [address] Potassium [Moles/Vol] 4.2 mmol/L Normal 3.5-5.0 [facility] Comment on above: Performed By: #### EPI Flores BCA, 93715-7 #### [facility] ([id number]) [address], [facility] [address] [place] [address] Sodium [Moles/Vol] 145 mmol/L Normal 134-146 [facility] Comment on above: Performed By: #### EPI Flores BCA, 51173-0 #### [facility] ([id number]) [address] [address] [place] [address] Urea nitrogen [Mass/Vol] 18 mg/dL Normal 5-27 [facility] Comment on above: Performed By: #### EPI Flores BCA, 06584-0 #### [facility] ([id number]) [address] [address] [place] [address] CBC AND AUTO DIFFon 10-20 25 ABSOLUTE BASOPHIL 0.1 X10E9/L Normal 0.0-0.2 [facility] Comment on above: Performed By: #### EPI Flores BCA, 56745-7 #### [facility] ([id number]) [address], [address] [place] [address] ABSOLUTE NEUTROPHIL 9.6 X10E9/L High 1.5-6.6 [facility] Comment on above: Performed By: #### EPI Flores BCA, 91549-2 #### [facility] ([id number]) [address], [address] [place] [address] Basophils/100 WBC (Bld) 1.0 % Normal P [facility] Comment on above: Performed By: #### C EPI CROCKER, 00450-2 #### [facility] ([id number]) [address], [address] [place] [address] Eosinophils (Bld) [#/Vol] 0.1 10*3/uL Normal 0.0-0.4 [facility] Comment on above: Performed By: #### EPI Flores BCA, 34823-1 #### [facility] ([id number]) [address] [place] [address] Eosinophils/100 WBC (Bld) 1.0 % Normal [facility] Comment on above: Performed By: #### EPI Flores BCA, 42834-8 #### [facility] ([id number]) [address], [address] [place] [address] Erythrocyte distribution width (RBC) [Ratio] 17.6 % High 11.5-15.0 [facility] Comment on above: Performed By: #### EPI Flores BCA, 00957-4 #### [facility] ([id number]) [address], [address] [place] [address] Hematocrit (Bld) [Volume fraction] 26.4 % Low 39-49 [facility] Comment on above: Performed By: #### EPI Flores BCA, 05817-4 #### [facility] ([id number]) [address], [address] [place] [address] Hemoglobin (Bld) [Mass/Vol] 8.6 g/dL Low 13.0-17.0 [facility] Comment on above: Performed By: #### EPI Flores BCA, 54714-3 #### [facility] ([id number]) [address] [place] [address] Lymphocytes (Bld) [#/Vol] 3.4 10*3/uL Normal 1.0-3.5 [facility] Comment on above: Performed By: #### EPI Flores BCA, 54024-3 #### [facility] ([id number]) [address], [facility] [address] [place] [address] Lymphocytes/100 WBC (Bld) 24.7 % Normal [facility] Comment on above: Performed By: #### EPI Flores BCA, 29074-0 #### [facility] ([id number]) [address], [address] [place] [address] MCH (RBC) [Entitic mass] 33.6 pg Normal 27-34 [facility] Comment on above: Performed By: #### EPI Flores BCA, 18972-9 #### [facility] ([id number]) [address] [place] [address] MCHC (RBC) [Mass/Vol] 32.6 g/dL Normal 32-36 [facility] Comment on above: Performed By: #### EPI Flores BCA, 96229-8 #### [facility] ([id number]) [address] [place] [address] MCV (RBC) [Entitic vol] 103 fL High 80-100 P [facility] Comment on above: Performed By: #### EPI Flores BCA, 97406-3 #### [facility] ([id number]) [address], [address] [place] [address] Monocytes (Bld) [#/Vol] 0.6 10*3/uL Normal 0-0.9 [facility] Comment on above: Performed By: #### C EPI CROCKER, 78347-3 #### [facility] ([id number]) [address], [address] [place] [address] Monocytes/100 WBC (Bld) 4.5 % Normal P [facility] Comment on above: Performed By: #### C EPI CROCKER, 89541-9 #### [facility] ([id number]) [address], [address] [place] [address] Neutrophils/100 WBC (Bld) 68.8 % Normal [facility] Comment on above: Performed By: #### EPI Flores BCA, 89010-5 #### [facility] ([id number]) [address], [address] [place] [address] Platelet mean volume (Bld) [Entitic vol] 7.3 fL Normal 7-12 [facility] Comment on above: Performed By: #### EPI Flores BCA, [id number] #### [facility] ([id number]) [address], [address] [place] [address] Platelets (Bld) [#/Vol] 403 10*3/uL Normal 150-450 [facility] Comment on above: Performed By: #### EPI Flores BCA, [id number] #### [facility] ([id number]) [address], [address] [place] [address] RBC COUNT 2.56 X10E12/L Low 4.10-5.70 [facility] Comment on above: Performed By: #### C EPI [place], 68664-4 #### [facility] ([id number]) [address], [address] [place] [address] WBC (Bld) [#/Vol] 13.9 10*3/uL High 4.0-11.0 [facility] Comment on above: Performed By: #### C EPI [place]ER, 84053-5 #### [facility] ([id number]) [address], [address] [place] [address] Calcium.ionized (Bld) [Mass/ Vol]on 06-20-2024 IONIZED CALCIUM 4.7 mg/dL Normal 4.5-5.3 [facility] Comment on above: Performed By: #### C LIZZETTE, [facility], 94601-4 #### [facility] ([id number]) [address], [address] [place] [address] FL SWALLOW MOTILITY FUNCTION on 06-20-2024 FL SWALLOW MOTILITY FUNCTION FL SWALLOW MOTILITY FUNCTION FL SWALLOW MOTILITY FUNCTION INDICATION: Oropharyngeal dysphagia, difficulty swallowing COMPARISON: None. TECHNIQUE: Video fluoroscopic swallow study was performed in conjunction with speech pathologist. Barium contrast materials of varying consistencies administered. Multiple video fluoroscopic images obtained. Zero fluoroscopic spot films obtained. FINDINGS: Fluoroscopic reference air kerma: 3.4 mGy Multiple attempts by the patient to swallow thin liquids and applesauce were unsuccessful due to weakness. Exam was terminated. Please correlate with dedicated speech pathology report for additional details and recommendations. IMPRESSION: * Exam was terminated due to patient's inability to swallow. Approved by Resident: Florencio Weber MD on 06/20/2024 2:33 PM IGilmer MD have personally reviewed the image(s) and agree with and/or edited the report Finalized by Gilmer Perez MD on 06/20/2024 2:[address] [facility] Glucose Glucometer (BldC) [M ass/Vol]on 06-20-2024 Glucose [Mass/Vol] 112 mg/dL High 65-99 [facility] Glucose [Mass/Vol] 101 mg/dL High 65-99 [facility] Glucose [Mass/Vol] 117 mg/dL High 65-99 [facility] Magnesium Ionized ISE (Bld) [Moles/Vol]on 06-20-2024 Magnesium [Moles/Vol] 0.48 mmol/L Normal 0.45-0.74 [facility] Comment on above: Result Comment: NEW REFERENCE RANGE Performed By: #### C LIZZETTE BMP, 19700-9 #### [facility] ([id number]) [address], [address] [place] [address] PHOSPHORUSon 06-20-2024 Phosphate [Mass/Vol] 4.2 mg/dL Normal 2.4-4.9 [facility] Comment on above: Performed By: #### C LIZZETTE BMP, 90903-0 #### [facility] ([id number]) [address], [address] [place] [address] BASIC METABOLIC PANLon 06-19 Anion gap [Moles/Vol] 10 mmol/L Normal 5-15 [facility] Comment on above: Performed By: #### Sandra CROCKER BMP, 53696-0 ####[facility] ([id number])[address], [address] [address] Calcium [Mass/Vol] 8.8 mg/dL Normal 8.5-10.5 [facility] Comment on above: Performed By: #### C LIZZETTE BMP, 66066-4 ####[facility] ([id number])[address], [address] [address] Chloride [Moles/Vol] 114 mmol/L High 98-109 [facility] Comment on above: Performed By: #### Sandra CROCKER BMP, 58245-0 ####[facility] ([id number])[address], [address] [address] CO2 [Moles/Vol] 25 mmol/L Normal 22-32 [facility] Comment on above: Performed By: #### Sandra CROCKER BMP, 42747-5 ####[facility] ([id number])[address], [address] [address] Creatinine [Mass/Vol] 0.90 mg/dL Normal 0.60-1.30 [facility] Comment on above: Result Comment: METH OD TRACEABLE TO IDMS STANDARD Performed By: #### C LIZZETTE BMP, 41856-4 ####[facility] ([id number])[address] [address] eGFR (CKD-EPI) NON-RACE DEPENDENT >90 Normal >59 [facility] Comment on above: Result Comment: Reported eGFR is based on the CKD-EPI 2020 equation that does not use a race coefficient. Performed By: #### C LIZZETTE BMP, 76632-2 ####[facility] ([id number])[address] [address] Glucose [Mass/Vol] 113 mg/dL High 65-99 [facility] Comment on above: Performed By: #### C LIZZETTE BMP, 45798-5 ####[facility] ([id number])[address] [address] Potassium [Moles/Vol] 4.4 mmol/L Normal 3.5-5.0 [facility] Comment on above: Performed By: #### C LIZZETTE BMP, 98951-4 ####[facility] ([id number])[address] [address] Sodium [Moles/Vol] 149 mmol/L High 134-146 [facility] Comment on above: Performed By: #### C LIZZETTE BMP, 47872-5 ####[facility] ([id number])[address] [address] Urea nitrogen [Mass/Vol] 24 mg/dL Normal 5-27 [facility] Comment on above: Performed By: #### C LIZZETTE BMP, 75237-2 ####[facility] ([id number])[address] [address] CBC AND AUTO DIFFon 06-19-19 25 ABSOLUTE BASOPHIL 0.2 X10E9/L Normal 0.0-0.2 [facility] Comment on above: Performed By: #### C LIZZETTE BMP, 32757-8 ####[facility] ([id number])[address], [address] [address] ABSOLUTE NEUTROPHIL 13.6 X10E9/L High 1.5-6.6 [facility] Comment on above: Performed By: #### Sandra CROCKER BMP, 82619-1 ####[facility] ([id number])[address], [address] [address] Basophils/100 WBC (Bld) 1.2 % Normal [facility] Comment on above: Performed By: #### Sandra CROCKER BMP, 49320-7 ####[facility] ([id number])[address], [address] [address] Eosinophils (Bld) [#/Vol] 0.1 10*3/uL Normal 0.0-0.4 [facility] Comment on above: Performed By: #### Sandra CROCKER BMP, 22385-3 ####[facility] ([id number])[address] [address] Eosinophils/100 WBC (Bld) 0.5 % Normal [facility] Comment on above: Performed By: #### Sandra CROCKER BMP, 00041-5 ####[facility] ([id number])[address] [address] Erythrocyte distribution width (RBC) [Ratio] 17.8 % High 11.5-15.0 [facility] Comment on above: Performed By: #### Sandra CROCKER BMP, 31258-5 ####[facility] ([id number])[address], [address] [address] Hematocrit (Bld) [Volume fraction] 27.1 % Low 39-49 [facility] Comment on above: Performed By: #### C LIZZETTE BMP, 53550-7 ####[facility] ([id number])[address], [address] [address] Hemoglobin (Bld) [Mass/Vol] 9.2 g/dL Low 13.0-17.0 [facility] Comment on above: Performed By: #### EPI Flores BCA, 56018-7 ####[facility] ([id number])[address], [address] [place] [address] Lymphocytes (Bld) [#/Vol] 4.3 10*3/uL High 1.0-3.5 [facility] Comment on above: Performed By: #### EPI Flores BCA, 86648-0 ####[facility] ([id number])[address] [address] Lymphocytes/100 WBC (Bld) 22.1 % Normal [facility] Comment on above: Performed By: #### Sandra CROCKER BMP, 79859-8 ####[facility] ([id number])[address] [place] [address] MCH (RBC) [Entitic mass] 34.5 pg High 27-34 [facility] Comment on above: Performed By: #### EPI Flores BCA, 36706-5 ####[facility] ([id number])[address] [place] [address] MCHC (RBC) [Mass/Vol] 33.7 g/dL Normal 32-36 [facility] Comment on above: Performed By: #### C LIZZETTE BMP, 88287-2 ####[facility] ([id number])[address] [place] [address] MCV (RBC) [Entitic vol] 102 fL High 80-100 [facility] Comment on above: Performed By: #### Sandra CROCKER BMP, 54730-9 ####[facility] ([id number])[address], [address] [place] [address] Monocytes (Bld) [#/Vol] 1.2 10*3/uL High 0-0.9 [facility] Comment on above: Performed By: #### Sandra CROCKER BMP, 18700-1 ####[facility] ([id number])[address], [address] [address] Monocytes/100 WBC (Bld) 6.1 % Normal P [facility] Comment on above: Performed By: #### Sandra CROCKER, BMP, 95751-3 ####[facility] ([id number])[address] [address] Neutrophils/100 WBC (Bld) 70.1 % Normal [facility] Comment on above: Performed By: #### Sandra CROCKER BMP, 49743-3 ####[facility] ([id number])[address], [address] [address] Platelet mean volume (Bld) [Entitic vol] 7.2 fL Normal 7-12 [facility] Comment on above: Performed By: #### Sandra CROCKER, BMP, 70432-8 ####[facility] ([id number])[address] [address] Platelets (Bld) [#/Vol] 416 10*3/uL Normal 150-450 [facility] Comment on above: Performed By: #### Sandra CROCKER BMP, 52978-3 ####[facility] ([id number])[address], [address], [place] [address] RBC COUNT 2.65 X10E12/L Low 4.10-5.70 [facility] Comment on above: Performed By: #### Sandra CROCKER, BMP, 17977-4 ####[facility] ([id number])[address], [address], [place] [address] WBC (Bld) [#/Vol] 19.5 10*3/uL High 4.0-11.0 [facility] Comment on above: Performed By: #### EPI Flores BCA, 04206-4 ####[facility] ([id number])[address], [address] [place] [address] Glucose Glucometer (BldC) [M ass/Vol]on 06-19-2024 Glucose [Mass/Vol] 100 mg/dL High 65-99 [facility] Glucose [Mass/Vol] 138 mg/dL High 65-99 [facility] Glucose [Mass/Vol] 109 mg/dL High 65-99 [facility] Glucose [Mass/Vol] 105 mg/dL High 65-99 [facility] LEGIONELLA URINE AGon 2024 L. pneumophila Ag IA Ql (U) LEGIONELLA URINE AG Negative (qualifier value) NEGATIVE FOR L.PNEUMOPHILA SEROGROUP [address] [facility] Comment on above: Performed By: #### C EPI CROCKER, 22079-1 #### [facility] ([id number]) [address], [address] [place] [address] MR BRAIN W CONTon 06-19-2024 MR BRAIN W CONT MR BRAIN W CONT EXAM: MR BRAIN W CONT TECHNIQUE: Additional multiplanar postcontrast sequences of the brain were obtained and reviewed in conjunction with a dedicated MRI of the brain without contrast dated 06/16/2024. CLINICAL HISTORY: Hemorrhagic stroke. COMPARISON: MRI dated 10/28/2024, CT dated 06/15/2024 FINDINGS: Please note, additional postcontrast MRI evaluation of the brain is limited secondary to patient motion. There is redemonstration of the patient's known subacute right parietal hemorrhage with overlying small amount of subarachnoid blood. There is a rind of enhancement associated with the hemorrhage, with overall appearances are suspicious for a hemorrhagic mass. No additional foci of pathologic enhancement are identified within the remainder of the brain. There is no mass effect. There is no shift of the midline structures and the basal cisterns are patent. There is no evidence for ventricular outflow obstruction. Midline structures and craniocervical junction are grossly within normal limits, within the limitations of motion degraded examination. IMPRESSION: 1. Please note, additional postcontrast MRI evaluation of the brain is limited secondary to patient motion. 2. There is redemonstration of the patient's known subacute hemorrhage centered within the right parietal lobe with overlying focal subarachnoid blood. There appears to be a rind of enhancement surrounding the right frontal lobe hemorrhage, with overall appearances suspicious for a hemorrhagic mass. There is no significant associated mass effect. 3. No additional foci of pathologic enhancement identified within the remainder of the brain. Finalized by Ej Coughlin MD on 06/19/2024 3:[address] [facility] MRSA PCR NASALon 06-19-2024 MRSA DNA MARGARET+probe Ql (Unsp spec) Positive Abnormal NEG [facility] Comment on above: Performed By: #### C EPI CROCKER, 23753-5 #### [facility] ([id number]) [address], [address] [place] [address] Procalcitonin IA [Mass/Vol]o n 06-19-2024 PROCALCITONIN 0.97 ng/mL High <0.05 [facility] Comment on above: Result Comment: NOTE <0.50 ng/mL - Low risk of severe sepsis and/or septic shock. <2.00 ng/mL - Recommend retesting within 6-24 hours. >2.00 ng/mL - High risk of sepsis and/or septic shock. Performed By: #### C EPI CROCKER, 10333-4 ####[facility] ([id number])[address], [address] [address] S PNEUMONIAE AG Uon 06-19-19 25 S. pneumoniae Ag Ql (U) Negative Normal NEG [facility] Comment on above: Performed By: #### C EPI CROCKER, 25917-5 #### [facility] ([id number]) [address], [address] [place] [address] URINALYSISon 06-19-2024 Bilirubin Ql (U) Negative Normal NEG [facility] Comment on above: Performed By: #### U A ####[facility] ([id number])[address], [address] [address] BLOOD/HGB Trace Abnormal NEG [facility] Comment on above: Performed By: #### U A ####[facility] ([id number])[address] [address] Color (U) YELLOW Normal YELLOW [facility] Comment on above: Performed By: #### U A ####[facility] ([id number])[address], [address] [address] Glucose Ql (U) Negative Normal NEG [facility] Comment on above: Performed By: #### U A ####[facility] ([id number])[address] [address] Hyaline casts LM Ql (Urine sed) 1 /lpf Normal 0-2 [facility] Comment on above: Performed By: #### U A ####[facility] ([id number])[address] [address] Ketones Ql (U) Negative Normal NEG [facility] Comment on above: Performed By: #### U A ####[facility] ([id number])[address] [address] Leukocyte esterase Test strip Ql (U) Negative Normal NEG [facility] Comment on above: Performed By: #### U A ####[facility] ([id number])[address] [address] MUCOUS PRESENT Abnormal NONE [facility] Comment on above: Performed By: #### U A ####[facility] ([id number])[address] [address] Nitrite Ql (U) Negative Normal NEG [facility] Comment on above: Performed By: #### U A ####[facility] ([id number])[address] [address] pH (U) 6.5 [pH] Normal 5.0-8.5 [facility] Comment on above: Performed By: #### U A ####[facility] ([id number])[address] [address] Protein Ql (U) Negative Normal NEG [facility] Comment on above: Performed By: #### U A ####[facility] ([id number])[address] [address] R.B.CELLS 4 /hpf Normal 0-5 [facility] Comment on above: Performed By: #### U A ####[facility] ([id number])[address] [address] Specific gravity (U) [Rel density] 1.018 Normal 1.003-1.[address] [facility] Comment on above: Performed By: #### U A ####[facility] ([id number])[address] [address] SQUAMOUS EPITHELIUM <1 Normal 0-5 [facility] Comment on above: Performed By: #### U A ####[facility] ([id number])[address] [address] TURBIDITY CLEAR Normal CLEAR [facility] Comment on above: Performed By: #### U A ####[facility] ([id number])[address] [address] Urobilinogen Qn (U) 2 {Jasmyn'U}/dL High <1.1 [facility] Comment on above: Performed By: #### U A ####[facility] ([id number])[address] [address] W.B.CELLS 2 /hpf Normal 0-5 [facility] Comment on above: Performed By: #### U A ####[facility] ([id number])[address] [address] VENOUS BLOOD GASon 5 G[address] Normal [facility] Comment on above: Performed By: #### V BG ####[facility] ([id number])[address] [place] [address] Base excess Calc (Bld) [Moles/Vol] 2.0 mmol/L Normal 0.0-2.0 [facility] Comment on above: Performed By: #### V BG ####[facility] ([id number])[address] [place] [address] Body temperature 98.6 [degF] Normal 37.0 [facility] Comment on above: Performed By: #### V BG ####[facility] ([id number])[address] [place] [address] HCO3 (Bld) [Moles/Vol] 26.8 mmol/L High 20.0-24.0 P [facility] Comment on above: Performed By: #### V BG ####[facility] ([id number])[address] [place] [address] INSP. O2 CONC. 21 % Normal [facility] Comment on above: Performed By: #### V BG ####[facility] ([id number])[address] [place] [address] Oxygen saturation in Blood 29.0 % Low >80.0 [facility] Comment on above: Performed By: #### V BG ####[facility] ([id number])[address] [place] [address] OXYGEN SOURCE RoomAir Normal [facility] Comment on above: Performed By: #### V BG ####[facility] ([id number])[address] [facility] [place] [address] PCO2, VENOUS 41.0 MMHG Normal 35-50 [facility] Comment on above: Performed By: #### V BG ####[facility] ([id number])[address] [place] [address] PH, VENOUS 7.423 High 7.320-7.[address] [facility] Comment on above: Performed By: #### V BG ####[facility] ([id number])[address] [place] [address] PO2, VENOUS 18 MMHG Low 30-50 [facility] Comment on above: Performed By: #### V BG ####[facility] ([id number])[address] [place] [address] SAMPLE SITE N/A Normal [facility] Comment on above: Performed By: #### V BG ####[facility] ([id number])[address] [place] [address] SAMPLE TYPE VENOUS Normal [facility] Comment on above: Performed By: #### V BG ####[facility] ([id number])[address] [place] [address] XR CHEST 1 VWon 06-19-2024 XR CHEST 1 VW XR CHEST 1 VW Indication: Shortness breath. TECHNIQUE: Frontal view the chest obtained portably and compared to multiple prior exams most recent dated 06/13/2024. FINDINGS: Heart and mediastinum are not significantly enlarged. Lung volumes are mildly decreased. Central pulmonary vasculature may be congested. Focal consolidation, pleural effusion, or pneumothorax is not seen. Enteric tube extends to stomach with tip over left upper quadrant region likely proximal small bowel. Portions of NG tube are incompletely included within the ammwm-hn-itsy. Benign calcified granuloma over right apex laterally. IMPRESSION: 1. Possible mild developing central congestive change. Finalized by Nasima Bush MD on 06/19/2024 9:[address] [facility] BASIC METABOLIC PANLon 06-18 Anion gap [Moles/Vol] 13 mmol/L Normal 5-15 [facility] Comment on above: Performed By: #### U A #### [facility] ([id number]) [address] [place] [address] Calcium [Mass/Vol] 8.6 mg/dL Normal 8.5-10.5 [facility] Comment on above: Performed By: #### U A #### [facility] ([id number]) [address] [place] [address] Chloride [Moles/Vol] 114 mmol/L High 98-109 [facility] Comment on above: Performed By: #### U A #### [facility] ([id number]) [address] [place] [address] CO2 [Moles/Vol] 22 mmol/L Normal 22-32 [facility] Comment on above: Performed By: #### U A #### [facility] ([id number]) [address] [place] [address] Creatinine [Mass/Vol] 0.91 mg/dL Normal 0.60-1.30 [facility] Comment on above: Result Comment: METH OD TRACEABLE TO IDMS STANDARD Performed By: #### U A #### [facility] ([id number]) [address] [place] [address] eGFR (CKD-EPI) NON-RACE DEPENDENT >90 Normal >59 [facility] Comment on above: Result Comment: Reported eGFR is based on the CKD-EPI 2020 equation that does not use a race coefficient. Performed By: #### U A #### [facility] ([id number]) [address] [place] [address] Glucose [Mass/Vol] 150 mg/dL High 65-99 [facility] Comment on above: Performed By: #### U A #### [facility] ([id number]) [address] [place] [address] Potassium [Moles/Vol] 3.7 mmol/L Normal 3.5-5.0 [facility] Comment on above: Performed By: #### U A #### [facility] ([id number]) [address] [place] [address] Sodium [Moles/Vol] 149 mmol/L High 134-146 [facility] Comment on above: Performed By: #### U A #### [facility] ([id number]) [address] [place] [address] Urea nitrogen [Mass/Vol] 26 mg/dL Normal 5-27 [facility] Comment on above: Performed By: #### U A #### [facility] ([id number]) [address] [facility] [address] [place] [address] CBC AND AUTO DIFFon 06-18-19 25 Band form neutrophils/100 WBC (Bld) 5.7 % Normal [facility] Comment on above: Performed By: #### U A #### [facility] ([id number]) [address] [place] [address] Erythrocyte distribution width (RBC) [Ratio] 17.5 % High 11.5-15.0 [facility] Comment on above: Performed By: #### U A #### [facility] ([id number]) [address] [place] [address] Hematocrit (Bld) [Volume fraction] 27.6 % Low 39-49 [facility] Comment on above: Performed By: #### U A #### [facility] ([id number]) [address] [place] [address] Hemoglobin (Bld) [Mass/Vol] 9.0 g/dL Low 13.0-17.0 [facility] Comment on above: Performed By: #### U A #### [facility] ([id number]) [address] [place] [address] Lymphocytes (Bld) [#/Vol] 2.5 10*3/uL Normal 1.0-3.5 [facility] Comment on above: Performed By: #### U A #### [facility] ([id number]) [address], [address] [place] [address] Lymphocytes/100 WBC (Bld) 12.4 % Normal [facility] Comment on above: Performed By: #### U A #### [facility] ([id number]) [address], [address] [place] [address] MCH (RBC) [Entitic mass] 33.5 pg Normal 27-34 [facility] Comment on above: Performed By: #### U A #### [facility] ([id number]) [address], [address] [place] [address] MCHC (RBC) [Mass/Vol] 32.8 g/dL Normal 32-36 [facility] Comment on above: Performed By: #### U A #### [facility] ([id number]) [address], [address] [place] [address] MCV (RBC) [Entitic vol] 102 fL High 80-100 P [facility] Comment on above: Performed By: #### U A #### [facility] ([id number]) [address], [address] [place] [address] Monocytes (Bld) [#/Vol] 0.6 10*3/uL Normal 0-0.9 [facility] Comment on above: Performed By: #### U A #### [facility] ([id number]) [address], [address] [place] [address] Monocytes/100 WBC (Bld) 2.9 % Normal P [facility] Comment on above: Performed By: #### U A #### [facility] ([id number]) [address], [address] [place] [address] MYELOCYTE 1.0 % Normal [facility] Comment on above: Performed By: #### U A #### [facility] ([id number]) [address], [address] [place] [address] NEUTROPHIL VACUOLES 1+ Abnormal NONE [facility] Comment on above: Performed By: #### U A #### [facility] ([id number]) [address], [address] [place] [address] Neutrophils (Bld) [#/Vol] 17.2 10*3/uL High 1.5-6.6 [facility] Comment on above: Performed By: #### U A #### [facility] ([id number]) [address], [address] [place] [address] Platelet mean volume (Bld) [Entitic vol] 7.2 fL Normal 7-12 [facility] Comment on above: Performed By: #### U A #### [facility] ([id number]) [address], [address] [place] [address] Platelets (Bld) [#/Vol] 459 10*3/uL High 150-450 [facility] Comment on above: Performed By: #### U A #### [facility] ([id number]) [address], [address] [place] [address] POLYCHROMASIA 1+ Abnormal NONE [facility] Comment on above: Performed By: #### U A #### [facility] ([id number]) [address], [address] [place] [address] RBC COUNT 2.70 X10E12/L Low 4.10-5.70 [facility] Comment on above: Performed By: #### U A #### [facility] ([id number]) [address], [address] [place] [address] SEG NEUTROPHIL 78.0 % Normal [facility] Comment on above: Performed By: #### U A #### [facility] ([id number]) [address], [address] [place] [address] WBC (Bld) [#/Vol] 20.5 10*3/uL High 4.0-11.0 [facility] Comment on above: Performed By: #### U A #### [facility] ([id number]) [address], [address] [place] [address] Glucose Glucometer (BldC) [M ass/Vol]on 06-18-2024 Glucose [Mass/Vol] 122 mg/dL High 65-99 [facility] Glucose [Mass/Vol] 115 mg/dL High 65-99 [facility] Glucose [Mass/Vol] 111 mg/dL High 65-99 [facility] POTASSIUMon 06-18-2024 Potassium [Moles/Vol] 4.3 mmol/L Normal 3.5-5.0 [facility] Comment on above: Performed By: #### U A #### [facility] ([id number]) [address], [address] [place] [address] BASIC METABOLIC PANLon 06-17 Anion gap [Moles/Vol] 12 mmol/L Normal 5-15 [facility] Comment on above: Performed By: #### H A1C #### [facility] ([id number]) [address], [address] [place] [address] Calcium [Mass/Vol] 8.4 mg/dL Low 8.5-10.5 [facility] Comment on above: Performed By: #### H A1C #### [facility] ([id number]) [address], [address] [place] [address] Chloride [Moles/Vol] 113 mmol/L High 98-109 [facility] Comment on above: Performed By: #### H A1C #### [facility] ([id number]) [address], [address] [place] [address] CO2 [Moles/Vol] 21 mmol/L Low 22-32 [facility] Comment on above: Performed By: #### H A1C #### [facility] ([id number]) [address], [address] [place] [address] Creatinine [Mass/Vol] 0.84 mg/dL Normal 0.60-1.30 [facility] Comment on above: Result Comment: METH OD TRACEABLE TO IDMS STANDARD Performed By: #### H A1C #### [facility] ([id number]) [address], [address] [place] [address] eGFR (CKD-EPI) NON-RACE DEPENDENT >90 Normal >59 [facility] Comment on above: Result Comment: Reported eGFR is based on the CKD-EPI 2020 equation that does not use a race coefficient. Performed By: #### H A1C #### [facility] ([id number]) [address], [address] [place] [address] Glucose [Mass/Vol] 144 mg/dL High 65-99 [facility] Comment on above: Performed By: #### H A1C #### [facility] ([id number]) [address] [place] [address] Potassium [Moles/Vol] 3.9 mmol/L Normal 3.5-5.0 [facility] Comment on above: Performed By: #### H A1C #### [facility] ([id number]) [address], [address] [place] [address] Sodium [Moles/Vol] 146 mmol/L Normal 134-146 [facility] Comment on above: Performed By: #### H A1C #### [facility] ([id number]) [address], [address] [place] [address] Urea nitrogen [Mass/Vol] 22 mg/dL Normal 5-27 [facility] Comment on above: Performed By: #### H A1C #### [facility] ([id number]) [address], [address] [place] [address] CBC AND AUTO DIFFon 06-17-19 25 ABSOLUTE BASOPHIL 0.2 X10E9/L Normal 0.0-0.2 [facility] Comment on above: Performed By: #### H A1C #### [facility] ([id number]) [address], [address] [place] [address] ABSOLUTE NEUTROPHIL 13.1 X10E9/L High 1.5-6.6 [facility] Comment on above: Performed By: #### H A1C #### [facility] ([id number]) [address], [address] [place] [address] Basophils/100 WBC (Bld) 0.9 % Normal [facility] Comment on above: Performed By: #### H A1C #### [facility] ([id number]) [address], [address] [place] [address] Eosinophils (Bld) [#/Vol] 0.0 10*3/uL Normal 0.0-0.4 [facility] Comment on above: Performed By: #### H A1C #### [facility] ([id number]) [address], [address] [place] [address] Eosinophils/100 WBC (Bld) 0.0 % Normal [facility] Comment on above: Performed By: #### H A1C #### [facility] ([id number]) [address], [address] [place] [address] Erythrocyte distribution width (RBC) [Ratio] 17.4 % High 11.5-15.0 [facility] Comment on above: Performed By: #### H A1C #### [facility] ([id number]) [address], [address] [place] [address] Hematocrit (Bld) [Volume fraction] 29.2 % Low 39-49 [facility] Comment on above: Performed By: #### H A1C #### [facility] ([id number]) [address], [address] [place] [address] Hemoglobin (Bld) [Mass/Vol] 9.7 g/dL Low 13.0-17.0 [facility] Comment on above: Performed By: #### H A1C #### [facility] ([id number]) [address], [address] [place] [address] Lymphocytes (Bld) [#/Vol] 3.7 10*3/uL High 1.0-3.5 [facility] Comment on above: Performed By: #### H A1C #### [facility] ([id number]) [address], [address] [place] [address] Lymphocytes/100 WBC (Bld) 21.5 % Normal [facility] Comment on above: Performed By: #### H A1C #### [facility] ([id number]) [address], [address] [place] [address] MCH (RBC) [Entitic mass] 33.3 pg Normal 27-34 [facility] Comment on above: Performed By: #### H A1C #### [facility] ([id number]) [address], [address] [place] [address] MCHC (RBC) [Mass/Vol] 33.3 g/dL Normal 32-36 [facility] Comment on above: Performed By: #### H A1C #### [facility] ([id number]) [address], [address] [place] [address] MCV (RBC) [Entitic vol] 100 fL Normal 80-100 P [facility] Comment on above: Performed By: #### H A1C #### [facility] ([id number]) [address], [address] [place] [address] Monocytes (Bld) [#/Vol] 0.4 10*3/uL Normal 0-0.9 [facility] Comment on above: Performed By: #### H A1C #### [facility] ([id number]) [address], [address] [place] [address] Monocytes/100 WBC (Bld) 2.1 % Normal [facility] Comment on above: Performed By: #### H A1C #### [facility] ([id number]) [address], [address] [place] [address] Neutrophils/100 WBC (Bld) 75.5 % Normal [facility] Comment on above: Performed By: #### H A1C #### [facility] ([id number]) [address], [address] [place] [address] Platelet mean volume (Bld) [Entitic vol] 7.0 fL Normal 7-12 [facility] Comment on above: Performed By: #### H A1C #### [facility] ([id number]) [address], [address] [place] [address] Platelets (Bld) [#/Vol] 423 10*3/uL Normal 150-450 [facility] Comment on above: Performed By: #### H A1C #### [facility] ([id number]) [address], [address] [place] [address] RBC COUNT 2.91 X10E12/L Low 4.10-5.70 [facility] Comment on above: Performed By: #### H A1C #### [facility] ([id number]) [address], [address] [place] [address] WBC (Bld) [#/Vol] 17.4 10*3/uL High 4.0-11.0 [facility] Comment on above: Performed By: #### H A1C #### [facility] ([id number]) [address], [address] [place] [address] Glucose Glucometer (BldC) [M ass/Vol]on 06-17-2024 Glucose [Mass/Vol] 146 mg/dL High 65-99 [facility] Glucose [Mass/Vol] 141 mg/dL High 65-99 [facility] Glucose [Mass/Vol] 145 mg/dL High 65-99 [facility] Glucose [Mass/Vol] 135 mg/dL High 65-99 [facility] LIVER PANELon 06-17-2024 Albumin [Mass/Vol] 2.7 g/dL Low 3.2-5.3 [facility] Comment on above: Performed By: #### H A1C #### [facility] ([id number]) [address], [address] [place] [address] ALP [Catalytic activity/Vol] 87 U/L Normal 39-130 [facility] Comment on above: Performed By: #### H A1C #### [facility] ([id number]) [address], [address] [place] [address] ALT [Catalytic activity/Vol] 12 U/L Normal 0-40 [facility] Comment on above: Performed By: #### H A1C #### [facility] ([id number]) [address], [address] [place] [address] AST [Catalytic activity/Vol] 20 U/L Normal 0-41 [facility] Comment on above: Performed By: #### H A1C #### [facility] ([id number]) [address], [address] [place] [address] Bilirubin [Mass/Vol] 0.6 mg/dL Normal 0.3-1.2 [facility] Comment on above: Performed By: #### H A1C #### [facility] ([id number]) [address], [address] [place] [address] Bilirubin.direct [Mass/Vol] 0.2 mg/dL Normal 0.0-0.4 [facility] Comment on above: Performed By: #### H A1C #### [facility] ([id number]) [address], [address] [place] [address] Protein [Mass/Vol] 6.0 g/dL Normal 6.0-8.0 [facility] Comment on above: Performed By: #### H A1C #### [facility] ([id number]) [address], [address] [place] [address] Magnesium Ionized ISE (Bld) [Moles/Vol]on 06-17-2024 Magnesium [Moles/Vol] 0.52 mmol/L Normal 0.45-0.74 [facility] Comment on above: Result Comment: NEW REFERENCE RANGE Performed By: #### U A #### [facility] ([id number]) [address], [address] [place] [address] PHOSPHORUSon 06-17-2024 Phosphate [Mass/Vol] 4.6 mg/dL Normal 2.4-4.9 [facility] Comment on above: Performed By: #### U A #### [facility] ([id number]) [address], [address] [place] [address] BASIC METABOLIC PANLon 06-16 Anion gap [Moles/Vol] 10 mmol/L Normal 5-15 [facility] Comment on above: Performed By: #### C BCA, BMP, [address]-9, 2777-1 #### [facility] ([id number]) [address], [address] [place] [address] Calcium [Mass/Vol] 8.2 mg/dL Low 8.5-10.5 [facility] Comment on above: Performed By: #### C LIZZETTE BMP, , 2776-05 #### [facility] ([id number]) [address], [address] [place] [address] Chloride [Moles/Vol] 111 mmol/L High 98-109 [facility] Comment on above: Performed By: #### C LIZZETTE, BMP, , 2776-05 #### [facility] ([id number]) [address], [address] [place] [address] CO2 [Moles/Vol] 27 mmol/L Normal 22-32 [facility] Comment on above: Performed By: #### C LIZZETTE, BMP, , 2776-05 #### [facility] ([id number]) [address], [address] [place] [address] Creatinine [Mass/Vol] 0.72 mg/dL Normal 0.60-1.30 [facility] Comment on above: Result Comment: METH OD TRACEABLE TO IDMS STANDARD Performed By: #### C LIZZETTE BMP, , 2776-05 #### [facility] ([id number]) [address], [address] [place] [address] eGFR (CKD-EPI) NON-RACE DEPENDENT >90 Normal >59 [facility] Comment on above: Result Comment: Reported eGFR is based on the CKD-EPI 2020 equation that does not use a race coefficient. Performed By: #### C BCA, BMP, , 2776-05 #### [facility] ([id number]) [address], [address] [place] [address] Glucose [Mass/Vol] 106 mg/dL High 65-99 [facility] Comment on above: Performed By: #### C BCA, BMP, , 2776-05 #### [facility] ([id number]) [address], [address] [place] [address] Potassium [Moles/Vol] 4.5 mmol/L Normal 3.5-5.0 [facility] Comment on above: Performed By: #### C [facility], , 2776-05 #### [facility] ([id number]) [address] [place] [address] Sodium [Moles/Vol] 148 mmol/L High 134-146 [facility] Comment on above: Performed By: #### C [facility], , 2776-05 #### [facility] ([id number]) [address] [place] [address] Urea nitrogen [Mass/Vol] 16 mg/dL Normal 5-27 [facility] Comment on above: Performed By: #### C [facility], , 2776-05 #### [facility] ([id number]) [address], [address] [place] [address] CBC AND AUTO DIFFon 06-16-19 25 ABSOLUTE BASOPHIL 0.1 X10E9/L Normal 0.0-0.2 [facility] Comment on above: Performed By: #### C LIZZETTE, [facility], , 2776-05 #### [facility] ([id number]) [address], [address] [place] [address] Band form neutrophils/100 WBC (Bld) 1.0 % Normal [facility] Comment on above: Performed By: #### C BCA, BMP, , 2776-05 #### [facility] ([id number]) [address], [address] [place] [address] Basophils/100 WBC (Bld) 1.0 % Normal [facility] Comment on above: Performed By: #### C LIZZETTE, BMP, , 2776-05 #### [facility] ([id number]) [address], [address] [place] [address] Eosinophils (Bld) [#/Vol] 0.5 10*3/uL High 0.0-0.4 [facility] Comment on above: Performed By: #### C LIZZETTE, BMP, , 2776-05 #### [facility] ([id number]) [address], [facility] [address] [place] [address] Eosinophils/100 WBC (Bld) 4.0 % Normal [facility] Comment on above: Performed By: #### C LIZZETTE, BMP, , 2776-05 #### [facility] ([id number]) [address] [address] [place] [address] Erythrocyte distribution width (RBC) [Ratio] 17.5 % High 11.5-15.0 [facility] Comment on above: Performed By: #### C LIZZETTE, BMP, , 2776-05 #### [facility] ([id number]) [address], [facility] [address] [place] [address] Hematocrit (Bld) [Volume fraction] 26.8 % Low 39-49 [facility] Comment on above: Performed By: #### C LIZZETTE, BMP, , 2776-05 #### [facility] ([id number]) [address], [facility] [address] [place] [address] Hemoglobin (Bld) [Mass/Vol] 8.9 g/dL Low 13.0-17.0 [facility] Comment on above: Performed By: #### C LIZZETTE, BMP, , 2776-05 #### [facility] ([id number]) [address] [address] [place] [address] Lymphocytes (Bld) [#/Vol] 2.4 10*3/uL Normal 1.0-3.5 [facility] Comment on above: Performed By: #### C EPI CROCKER, , 2776-05 #### [facility] ([id number]) [address], [address] [place] [address] Lymphocytes/100 WBC (Bld) 19.0 % Normal [facility] Comment on above: Performed By: #### EPI Flores BCA, , 2776-05 #### [facility] ([id number]) [address], [address] [place] [address] MCH (RBC) [Entitic mass] 34.1 pg High 27-34 [facility] Comment on above: Performed By: #### EPI Flores BCA, , 2776-05 #### [facility] ([id number]) [address], [address] [place] [address] MCHC (RBC) [Mass/Vol] 33.3 g/dL Normal 32-36 [facility] Comment on above: Performed By: #### EPI Flores BCA, , 2776-05 #### [facility] ([id number]) [address], [address] [place] [address] MCV (RBC) [Entitic vol] 102 fL High 80-100 P [facility] Comment on above: Performed By: #### EPI Flores BCA, , 2776-05 #### [facility] ([id number]) [address], [address] [place] [address] Monocytes (Bld) [#/Vol] 0.9 10*3/uL Normal 0-0.9 [facility] Comment on above: Performed By: #### EPI Flores BCA, , 2776-05 #### [facility] ([id number]) [address], [address] [place] [address] Monocytes/100 WBC (Bld) 7.0 % Normal P [facility] Comment on above: Performed By: #### C EPI CROCKER, , 2776-05 #### [facility] ([id number]) [address], [facility] [address] [place] [address] Neutrophils (Bld) [#/Vol] 8.7 10*3/uL High 1.5-6.6 [facility] Comment on above: Performed By: #### C LIZZETTE, [facility], , 2776-05 #### [facility] ([id number]) [address], [facility] [address] [place] [address] Platelet mean volume (Bld) [Entitic vol] 7.0 fL Normal 7-12 [facility] Comment on above: Performed By: #### Sandra CROCKER, EPI, , 2776-05 #### [facility] ([id number]) [address], [facility] [address] [place] [address] Platelets (Bld) [#/Vol] 368 10*3/uL Normal 150-450 [facility] Comment on above: Performed By: #### Sandra CROCKER, [facility], , 2776-05 #### [facility] ([id number]) [address], [facility] [address] [place] [address] POLYCHROMASIA 1+ Abnormal NONE [facility] Comment on above: Performed By: #### Sandra CROCKER, EPI, , 2776-05 #### [facility] ([id number]) [address] [address] [place] [address] RBC COUNT 2.62 X10E12/L Low 4.10-5.70 [facility] Comment on above: Performed By: #### Sandra CROCKER, EPI, , 2776-05 #### [facility] ([id number]) [address], [facility] [address] [place] [address] SEG NEUTROPHIL 68.0 % Normal [facility] Comment on above: Performed By: #### C LIZZETTE, BMP, , 2776-05 #### [facility] ([id number]) [address], [address] [place] [address] WBC (Bld) [#/Vol] 12.6 10*3/uL High 4.0-11.0 [facility] Comment on above: Performed By: #### C LIZZETTE, BMP, , 2776-05 #### [facility] ([id number]) [address], [address] [place] [address] Glucose Glucometer (BldC) [M ass/Vol]on 06-16-2024 Glucose [Mass/Vol] 162 mg/dL High 65-99 [facility] Glucose [Mass/Vol] 156 mg/dL High 65-99 [facility] Glucose [Mass/Vol] 81 mg/dL Normal 65-99 [facility] LIVER PANELon 06-16-2024 Albumin [Mass/Vol] 2.4 g/dL Low 3.2-5.3 [facility] Comment on above: Performed By: #### C LIZZETTE, BMP, , 2776-05 #### [facility] ([id number]) [address], [address] [place] [address] ALP [Catalytic activity/Vol] 87 U/L Normal 39-130 [facility] Comment on above: Performed By: #### C BCA, BMP, , 2776-05 #### [facility] ([id number]) [address], [address] [place] [address] ALT [Catalytic activity/Vol] 11 U/L Normal 0-40 [facility] Comment on above: Performed By: #### C BCA, BMP, , 2776-05 #### [facility] ([id number]) [address], [address] [place] [address] AST [Catalytic activity/Vol] 28 U/L Normal 0-41 [facility] Comment on above: Performed By: #### C LIZZETTE, BMP, , 2776-05 #### [facility] ([id number]) [address], [facility] [address] [place] [address] Bilirubin [Mass/Vol] 0.5 mg/dL Normal 0.3-1.2 [facility] Comment on above: Performed By: #### C LIZZETTE, BMP, , 2776-05 #### [facility] ([id number]) [address], [address] [address] Bilirubin.direct [Mass/Vol] 0.1 mg/dL Normal 0.0-0.4 [facility] Comment on above: Result Comment: SPEC IMEN HEMOLYZED, RESULTS DECREASED SLIGHTLY HEMOLYZED Performed By: #### C LIZZETTE, BMP, , 2776-05 #### [facility] ([id number]) [address], [address] [address] Protein [Mass/Vol] 5.3 g/dL Low 6.0-8.0 [facility] Comment on above: Performed By: #### C LIZZETTE, BMP, , 2776-05 #### [facility] ([id number]) [address], [address] [address] MR BRAIN WO CONTon MR BRAIN WO CONT MR BRAIN WO CONT STUDY: MRI brain without contrast d CLINICAL HISTORY: Stroke, follow up COMPARISON: 06/15/2024. TECHNIQUE: Routine multiplanar multisequence MR imaging of the brain was performed without contrast. FINDINGS: Motion degraded exam, findings may be obscured. Focal diffusion hyperintensity left aspect of the splenium corpus callosum [series 8 image #42]. Focal parenchymal hematoma, acute/subacute chronicity, about the dorsal lateral right frontal lobe, 3 cm, adjacent subarachnoid hemorrhage; adjacent area of ischemic change within MCA territory extending into subcortical region/centrum semiovale [series 8 image #47]. Asymmetric [all volume loss, FLAIR hyperintensity. Unremarkable intracranial vascular flow voids. Fluid bilateral mastoid air cells. Mucosal thickening bilateral maxillary sinuses, right sphenoid sinus, ethmoid air cells, left frontal sinus. Lens replacement. Edentulous. IMPRESSION: 1. Parenchymal hematoma about the dorsal lateral right frontal lobe, 3 cm [acute/subacute chronicity]. Adjacent ischemic change. Findings are technically indeterminant, possibly hemorrhagic infarct. 2. Additional area of ischemic change left splenium corpus callosum. 3. Asymmetric left hippocampal volume loss, FLAIR hyperintensity. Finalized by Redd Mantilla MD on 06/16/2024 10:[address] [facility] Magnesium Ionized ISE (Bld) [Moles/Vol]on 06-16-2024 Magnesium [Moles/Vol] 0.48 mmol/L Normal 0.45-0.74 Pr [facility] Comment on above: Result Comment: NEW REFERENCE RANGE Performed By: #### H A1C #### [facility] ([id number]) [address], [address] [place] [address] PHOSPHORUSon 06-16-2024 Phosphate [Mass/Vol] 4.8 mg/dL Normal 2.4-4.9 [facility] Comment on above: Result Comment: SPEC IMEN HEMOLYZED, RESULTS INCREASED SLIGHTLY HEMOLYZED Performed By: #### H A1C #### [facility] ([id number]) [address], [address] [place] [address] AMMONIAon 06-15-2024 Ammonia (P) [Moles/Vol] 67 umol/L Normal 18-72 P [facility] Comment on above: Result Comment: NEW REFERENCE RANGE Performed By: #### C BCA, BMP, 42241-1, 2777-1 #### [facility] ([id number]) [address], [address] [place] [address] BASIC METABOLIC PANLon 06-15 Anion gap [Moles/Vol] 11 mmol/L Normal 5-15 [facility] Comment on above: Performed By: #### C BCA, BMP, , 2776-05 #### [facility] ([id number]) [address], [address] [place] [address] Calcium [Mass/Vol] 8.4 mg/dL Low 8.5-10.5 [facility] Comment on above: Performed By: #### C BCA, BMP, , 2776-05 #### [facility] ([id number]) [address], [address] [place] [address] Chloride [Moles/Vol] 109 mmol/L Normal 98-109 [facility] Comment on above: Performed By: #### C BCA, BMP, , 2776-05 #### [facility] ([id number]) [address], [facility] [address] [place] [address] CO2 [Moles/Vol] 27 mmol/L Normal 22-32 [facility] Comment on above: Performed By: #### C BCA, BMP, , 2776-05 #### [facility] ([id number]) [address], [facility] [address] [place] [address] Creatinine [Mass/Vol] 0.73 mg/dL Normal 0.60-1.30 [facility] Comment on above: Result Comment: METH OD TRACEABLE TO IDMS STANDARD Performed By: #### C BCA, BMP, , 2776-05 #### [facility] ([id number]) [address], [address] [place] [address] eGFR (CKD-EPI) NON-RACE DEPENDENT >90 Normal >59 [facility] Comment on above: Result Comment: Reported eGFR is based on the CKD-EPI 2020 equation that does not use a race coefficient. Performed By: #### C BCA, BMP, , 2776-05 #### [facility] ([id number]) [address], [address] [place] [address] Glucose [Mass/Vol] 107 mg/dL High 65-99 [facility] Comment on above: Performed By: #### C LIZZETTE, BMP, , 2776-05 #### [facility] ([id number]) [address], [address] [place] [address] Potassium [Moles/Vol] 4.0 mmol/L Normal 3.5-5.0 [facility] Comment on above: Performed By: #### C BCA, BMP, , 2776-05 #### [facility] ([id number]) [address], [address] [place] [address] Sodium [Moles/Vol] 147 mmol/L High 134-146 [facility] Comment on above: Performed By: #### C LIZZETTE, BMP, , 2776-05 #### [facility] ([id number]) [address], [address] [place] [address] Urea nitrogen [Mass/Vol] 15 mg/dL Normal 5-27 [facility] Comment on above: Performed By: #### C LIZZETTE, BMP, , 2776-05 #### [facility] ([id number]) [address], [address] [place] [address] CBC AND AUTO DIFFon 06-15-19 25 ABSOLUTE BASOPHIL 0.1 X10E9/L Normal 0.0-0.2 [facility] Comment on above: Performed By: #### C BCA, BMP, , 2776-05 #### [facility] ([id number]) [address], [address] [place] [address] ABSOLUTE NEUTROPHIL 7.8 X10E9/L High 1.5-6.6 [facility] Comment on above: Performed By: #### C BCA, BMP, , 2776-05 #### [facility] ([id number]) [address], [address] [place] [address] Basophils/100 WBC (Bld) 0.6 % Normal [facility] Comment on above: Performed By: #### C LIZZETTE, BMP, , 2776-05 #### [facility] ([id number]) [address], [address] [place] [address] Eosinophils (Bld) [#/Vol] 0.5 10*3/uL High 0.0-0.4 [facility] Comment on above: Performed By: #### C LIZZETTE, BMP, , 2776-05 #### [facility] ([id number]) [address], [address] [place] [address] Eosinophils/100 WBC (Bld) 3.6 % Normal [facility] Comment on above: Performed By: #### Sandra CROCKER, BMP, , 2776-05 #### [facility] ([id number]) [address], [address] [place] [address] Erythrocyte distribution width (RBC) [Ratio] 17.5 % High 11.5-15.0 [facility] Comment on above: Performed By: #### Sandra CROCKER, BMP, , 2776-05 #### [facility] ([id number]) [address], [address] [place] [address] Hematocrit (Bld) [Volume fraction] 28.6 % Low 39-49 [facility] Comment on above: Performed By: #### C BCA, BMP, , 2776-05 #### [facility] ([id number]) [address], [address] [place] [address] Hemoglobin (Bld) [Mass/Vol] 9.5 g/dL Low 13.0-17.0 [facility] Comment on above: Performed By: #### C LIZZETTE, BMP, , 2776-05 #### [facility] ([id number]) [address], [address] [place] [address] Lymphocytes (Bld) [#/Vol] 3.2 10*3/uL Normal 1.0-3.5 [facility] Comment on above: Performed By: #### C LIZZETTE, BMP, , 2776-05 #### [facility] ([id number]) [address], [facility] [address] [place] [address] Lymphocytes/100 WBC (Bld) 25.1 % Normal [facility] Comment on above: Performed By: #### C LIZZETTE, BMP, , 2776-05 #### [facility] ([id number]) [address], [facility] [address] [place] [address] MCH (RBC) [Entitic mass] 34.1 pg High 27-34 [facility] Comment on above: Performed By: #### Sandra CROCKER, BMP, , 2776-05 #### [facility] ([id number]) [address], [facility] [address] [place] [address] MCHC (RBC) [Mass/Vol] 33.3 g/dL Normal 32-36 [facility] Comment on above: Performed By: #### C LIZZETTE, BMP, , 2776-05 #### [facility] ([id number]) [address], [facility] [address] [place] [address] MCV (RBC) [Entitic vol] 102 fL High 80-100 P [facility] Comment on above: Performed By: #### C LIZZETTE, BMP, , 2776-05 #### [facility] ([id number]) [address], [address] [place] [address] Monocytes (Bld) [#/Vol] 1.2 10*3/uL High 0-0.9 [facility] Comment on above: Performed By: #### Sandra CROCKER, BMP, , 2776-05 #### [facility] ([id number]) [address], [address] [place] [address] Monocytes/100 WBC (Bld) 9.4 % Normal P [facility] Comment on above: Performed By: #### C BCA, BMP, , 2776-05 #### [facility] ([id number]) [address], [address] [place] [address] Neutrophils/100 WBC (Bld) 61.3 % Normal [facility] Comment on above: Performed By: #### C BCA, BMP, , 2776-05 #### [facility] ([id number]) [address], [address] [place] [address] Platelet mean volume (Bld) [Entitic vol] 6.4 fL Low 7-12 [facility] Comment on above: Performed By: #### C BCA, BMP, , 2776-05 #### [facility] ([id number]) [address], [address] [place] [address] Platelets (Bld) [#/Vol] 342 10*3/uL Normal 150-450 [facility] Comment on above: Performed By: #### C BCA, BMP, , 2776-05 #### [facility] ([id number]) [address], [address] [place] [address] RBC COUNT 2.79 X10E12/L Low 4.10-5.70 [facility] Comment on above: Performed By: #### C BCA, BMP, , 2776-05 #### [facility] ([id number]) [address], [address] [place] [address] WBC (Bld) [#/Vol] 12.7 10*3/uL High 4.0-11.0 [facility] Comment on above: Performed By: #### C BCA, BMP, , 2776-1 #### [facility] ([id number]) [address] [facility], [address] [place] [address] CT BRAIN WO CONTon CT BRAIN WO CONT CT BRAIN WO CONT CT HEAD WITHOUT CONTRAST HISTORY: Uneven pupils COMPARISON: 06/12/2024 TECHNIQUE: Routine noncontrast CT head. All CT scans at this facility use dose modulation, iterative reconstruction, and/or weight based dosing when appropriate to reduce radiation dose to as low as reasonably achievable. FINDINGS: Extensive mucosal thickening in the paranasal sinuses. Fluid in the right middle ear cavity and bilateral mastoid air cells. Right frontoparietal intraparenchymal hemorrhage measuring 4.2 x 1.8 cm is unchanged. There has been slight increase in surrounding vasogenic edema. Similar amount of subarachnoid hemorrhage superior to this intraparenchymal hemorrhage. No midline shift. Diffuse brain volume loss. No evidence of ventricular outflow obstruction. IMPRESSION: * Similar size of right frontoparietal intraparenchymal hemorrhage, however slight increase in surrounding vasogenic edema. * Similar amount of subarachnoid hemorrhage adjacent to this intraparenchymal hemorrhage. Finalized by Khadar Kenney MD on 06/15/2024 3:[address] [facility] CT CTA CAROTIDon 06-15-[address] CTA CAROTID CTA NECK HISTORY: Uneven pupils COMPARISON: 06/12/2024 TECHNIQUE: CT angiogram performed following intravenous administration of 100 mL Omnipaque 350. Coronal and sagittal and 3-D volume rendered maximum intensity projection images generated and reviewed under concurrent physician supervision. The [place] Symptomatic Carotid Endarterectomy Trial (NASCET) method for calculating the degree of stenosis was utilized for stenosis measurements. FINDINGS: Please refer to separate report for intracranial findings. The right brachiocephalic artery and bilateral subclavian arteries are patent. Bilateral common carotid, internal carotid, and external carotid arteries are patent with no hemodynamically significant stenosis or occlusion. Bilateral vertebral arteries are patent. Patchy groundglass opacities in the visualized lung apices. Feeding tube in place. Multilevel degenerative changes in the cervical spine. IMPRESSION: * No hemodynamically significant stenosis or occlusion in the carotid or vertebral arteries. All CT scans at this facility use dose modulation, iterative reconstruction, and/or weight based dosing when appropriate to reduce radiation dose to as low as reasonably achievable. Finalized by Khadar Kenney MD on 06/15/2024 3:[address] [facility] CT CTA HEADon 06-15-[address] CTA HEAD CTA HEAD HISTORY: Uneven pupils COMPARISON: 06/12/2024 TECHNIQUE: CT angiogram performed following intravenous administration of 100 mL Omnipaque 350. Coronal and sagittal and 3-D volume rendered maximum intensity projection images generated and reviewed under concurrent physician supervision. The [place] Symptomatic Carotid Endarterectomy Trial (NASCET) method for calculating the degree of stenosis was utilized for stenosis measurements. Arterial blood flow was measured to assist the stroke clinical team in the diagnosis of large vessel occlusion in patients undergoing screening for acute ischemic stroke using Rapid AI software when clinically indicated. FINDINGS: Please refer to separate report for findings in the neck. Intracranial portions of the internal carotid and vertebral arteries are patent. Bilateral middle cerebral and anterior cerebral arteries are patent. The basilar artery is patent. Bilateral posterior cerebral arteries are patent. No cerebral aneurysm. IMPRESSION: * No large vessel intracranial vascular occlusion. All CT scans at this facility use dose modulation, iterative reconstruction, and/or weight based dosing when appropriate to reduce radiation dose to as low as reasonably achievable. Finalized by Khadar Kenney MD on 06/15/2024 3:[address] [facility] Glucose Glucometer (BldC) [M ass/Vol]on 06-15-2024 Glucose [Mass/Vol] 117 mg/dL High 65-99 [facility] Glucose [Mass/Vol] 112 mg/dL High 65-99 [facility] Glucose [Mass/Vol] 96 mg/dL Normal 65-99 [facility] LIVER PANELon 06-15-2024 Albumin [Mass/Vol] 2.6 g/dL Low 3.2-5.3 [facility] Comment on above: Performed By: #### C LIZZETTE, EPI, 35112-8, 2777-1 #### [facility] ([id number]) [address], [address] [place] [address] ALP [Catalytic activity/Vol] 75 U/L Normal 39-130 [facility] Comment on above: Performed By: #### C BCA, BMP, , 2776-05 #### [facility] ([id number]) [address], [address] [place] [address] ALT [Catalytic activity/Vol] 9 U/L Normal 0-40 [facility] Comment on above: Performed By: #### C BCA, BMP, , 2776-05 #### [facility] ([id number]) [address], [address] [place] [address] AST [Catalytic activity/Vol] 18 U/L Normal 0-41 [facility] Comment on above: Performed By: #### C BCA, BMP, , 2776-05 #### [facility] ([id number]) [address], [address] [place] [address] Bilirubin [Mass/Vol] 0.4 mg/dL Normal 0.3-1.2 [facility] Comment on above: Performed By: #### C LIZZETTE, BMP, , 2776-05 #### [facility] ([id number]) [address], [address] [place] [address] Bilirubin.direct [Mass/Vol] 0.1 mg/dL Normal 0.0-0.4 [facility] Comment on above: Performed By: #### C BCA, BMP, , 2776-05 #### [facility] ([id number]) [address], [address] [place] [address] Protein [Mass/Vol] 5.3 g/dL Low 6.0-8.0 [facility] Comment on above: Performed By: #### C BCA, BMP, , 2776-05 #### [facility] ([id number]) [address], [address] [place] [address] Magnesium Ionized ISE (Bld) [Moles/Vol]on 06-15-2024 Magnesium [Moles/Vol] 0.55 mmol/L Normal 0.45-0.74 [facility] Comment on above: Result Comment: NEW REFERENCE RANGE Performed By: #### C LIZZETTE BMP, , 2776-05 #### [facility] ([id number]) [address], [address] [place] [address] PHOSPHORUSon 06-15-2024 Phosphate [Mass/Vol] 5.0 mg/dL High 2.4-4.9 [facility] Comment on above: Performed By: #### C LIZZETTE, BMP, , 2776-05 #### [facility] ([id number]) [address], [address] [place] [address] BASIC METABOLIC PANLon 06-14 Anion gap [Moles/Vol] 11 mmol/L Normal 5-15 [facility] Comment on above: Performed By: #### C LIZZETTE, BMP, , 2776-05 #### [facility] ([id number]) [address], [address] [place] [address] Calcium [Mass/Vol] 8.1 mg/dL Low 8.5-10.5 [facility] Comment on above: Performed By: #### C ILZZETTE, BMP, , 2776-05 #### [facility] ([id number]) [address], [address] [place] [address] Chloride [Moles/Vol] 105 mmol/L Normal 98-109 [facility] Comment on above: Performed By: #### C BCA, BMP, , 2776-05 #### [facility] ([id number]) [address], [address] [place] [address] CO2 [Moles/Vol] 26 mmol/L Normal 22-32 [facility] Comment on above: Performed By: #### C BCA, BMP, , 2776-05 #### [facility] ([id number]) [address], [address] [place] [address] Creatinine [Mass/Vol] 0.93 mg/dL Normal 0.60-1.30 [facility] Comment on above: Result Comment: METH OD TRACEABLE TO IDMS STANDARD Performed By: #### C LIZZETTE, BMP, , 2776-05 #### [facility] ([id number]) [address], [address] [place] [address] GFR/1.73 sq M.predicted among non-blacks MDRD (S/P/Bld) [Vol rate/Area] 90 mL/min/{1.73_m2} Normal >59 [facility] Comment on above: Result Comment: Reported eGFR is based on the CKD-EPI 2020 equation that does not use a race coefficient. Performed By: #### C LIZZETTE, BMP, , 2776-05 #### [facility] ([id number]) [address] [place] [address] Glucose [Mass/Vol] 106 mg/dL High 65-99 [facility] Comment on above: Performed By: #### C LIZZETTE, BMP, , 2776-05 #### [facility] ([id number]) [address] [address] [place] [address] Potassium [Moles/Vol] 3.4 mmol/L Low 3.5-5.0 [facility] Comment on above: Performed By: #### C BCA, BMP, , 2776-05 #### [facility] ([id number]) [address] [address] [place] [address] Sodium [Moles/Vol] 142 mmol/L Normal 134-146 [facility] Comment on above: Performed By: #### C BCA, BMP, , 2776-05 #### [facility] ([id number]) [address] [address] [place] [address] Urea nitrogen [Mass/Vol] 15 mg/dL Normal 5-27 [facility] Comment on above: Performed By: #### C LIZZETTE, BMP, , 2776-05 #### [facility] ([id number]) [address], [address] [place] [address] CBC AND AUTO DIFFon 06-14-19 25 ABSOLUTE BASOPHIL 0.3 X10E9/L High 0.0-0.2 [facility] Comment on above: Performed By: #### C LIZZETTE, BMP, , 2776-05 #### [facility] ([id number]) [address], [address] [place] [address] ABSOLUTE NEUTROPHIL 7.2 X10E9/L High 1.5-6.6 [facility] Comment on above: Performed By: #### C BCA, BMP, , 2776-05 #### [facility] ([id number]) [address], [address] [place] [address] Basophils/100 WBC (Bld) 2.1 % Normal [facility] Comment on above: Performed By: #### C BCA, BMP, , 2776-05 #### [facility] ([id number]) [address], [address] [place] [address] Eosinophils (Bld) [#/Vol] 0.3 10*3/uL Normal 0.0-0.4 [facility] Comment on above: Performed By: #### C BCA, BMP, , 2776-05 #### [facility] ([id number]) [address], [address] [place] [address] Eosinophils/100 WBC (Bld) 2.1 % Normal [facility] Comment on above: Performed By: #### C BCA, BMP, , 2776-05 #### [facility] ([id number]) [address], [address] [place] [address] Erythrocyte distribution width (RBC) [Ratio] 17.7 % High 11.5-15.0 [facility] Comment on above: Performed By: #### C EPI CROCKER, , 2776-05 #### [facility] ([id number]) [address], [address] [place] [address] Hematocrit (Bld) [Volume fraction] 27.9 % Low 39-49 [facility] Comment on above: Performed By: #### C LIZZETTE, EPI, , 2776-05 #### [facility] ([id number]) [address] [place] [address] Hemoglobin (Bld) [Mass/Vol] 9.5 g/dL Low 13.0-17.0 [facility] Comment on above: Performed By: #### C LIZZETTE, EPI, , 2776-05 #### [facility] ([id number]) [address] [place] [address] Lymphocytes (Bld) [#/Vol] 3.1 10*3/uL Normal 1.0-3.5 [facility] Comment on above: Performed By: #### C EPI CROCKER, , 2776-05 #### [facility] ([id number]) [address], [address] [place] [address] Lymphocytes/100 WBC (Bld) 25.5 % Normal [facility] Comment on above: Performed By: #### C LIZZETTE, BMP, , 2776-05 #### [facility] [facility] ([id number]) [address], [address] [place] [address] MCH (RBC) [Entitic mass] 34.4 pg High 27-34 [facility] Comment on above: Performed By: #### C LIZZETTE, BMP, , 2776-05 #### [facility] ([id number]) [address], [address] [place] [address] MCHC (RBC) [Mass/Vol] 34.0 g/dL Normal 32-36 [facility] Comment on above: Performed By: #### C LIZZETTE, [facility], , 2776-05 #### [facility] ([id number]) [address], [address] [place] [address] MCV (RBC) [Entitic vol] 101 fL High 80-100 P [facility] Comment on above: Performed By: #### Sandra CROCKER, BMP, , 2776-05 #### [facility] ([id number]) [address], [address] [place] [address] Monocytes (Bld) [#/Vol] 1.4 10*3/uL High 0-0.9 [facility] Comment on above: Performed By: #### C LIZZETTE, BMP, , 2776-05 #### [facility] ([id number]) [address], [address] [place] [address] Monocytes/100 WBC (Bld) 11.6 % Normal [facility] Comment on above: Performed By: #### C LIZZETTE, BMP, , 2776-05 #### [facility] ([id number]) [address], [address] [place] [address] Neutrophils/100 WBC (Bld) 58.7 % Normal [facility] Comment on above: Performed By: #### C LIZZETTE, BMP, , 2776-05 #### [facility] ([id number]) [address], [address] [place] [address] Platelet mean volume (Bld) [Entitic vol] 6.5 fL Low 7-12 [facility] Comment on above: Performed By: #### C LIZZETTE, BMP, , 2776-05 #### [facility] ([id number]) [address], [address] [place] [address] Platelets (Bld) [#/Vol] 397 10*3/uL Normal 150-450 [facility] Comment on above: Performed By: #### C BCA, BMP, , 2776-05 #### [facility] ([id number]) [address], [address] [place] [address] RBC COUNT 2.75 X10E12/L Low 4.10-5.70 [facility] Comment on above: Performed By: #### C BCA, BMP, , 2776-05 #### [facility] ([id number]) [address], [address] [place] [address] WBC (Bld) [#/Vol] 12.3 10*3/uL High 4.0-11.0 [facility] Comment on above: Performed By: #### C BCA, BMP, , 2776-05 #### [facility] ([id number]) [address], [address] [place] [address] Calcium.ionized (Bld) [Mass/ Vol]on 06-14-2024 IONIZED CALCIUM 4.3 mg/dL Low 4.5-5.3 [facility] Comment on above: Performed By: #### C BCA, BMP, , 2776-05 #### [facility] ([id number]) [address], [address] [place] [address] LIVER PANELon 06-14-2024 Albumin [Mass/Vol] 2.6 g/dL Low 3.2-5.3 [facility] Comment on above: Performed By: #### C BCA, BMP, , 2776-05 #### [facility] ([id number]) [address], [address] [place] [address] ALP [Catalytic activity/Vol] 79 U/L Normal 39-130 [facility] Comment on above: Performed By: #### C BCA, BMP, , 2776-05 #### [facility] ([id number]) [address], [address] [place] [address] ALT [Catalytic activity/Vol] 11 U/L Normal 0-40 [facility] Comment on above: Performed By: #### C BCA, BMP, , 2776-05 #### [facility] ([id number]) [address], [address] [place] [address] AST [Catalytic activity/Vol] 21 U/L Normal 0-41 [facility] Comment on above: Performed By: #### C BCA, BMP, , 2776-05 #### [facility] ([id number]) [address], [address] [place] [address] Bilirubin [Mass/Vol] 0.7 mg/dL Normal 0.3-1.2 [facility] Comment on above: Performed By: #### C BCA, BMP, , 2776-05 #### [facility] ([id number]) [address], [address] [place] [address] Bilirubin.direct [Mass/Vol] 0.1 mg/dL Normal 0.0-0.4 [facility] Comment on above: Performed By: #### C BCA, BMP, , 2776-05 #### [facility] ([id number]) [address], [address] [place] [address] Protein [Mass/Vol] 5.7 g/dL Low 6.0-8.0 [facility] Comment on above: Performed By: #### C BCA, BMP, , 2776-05 #### [facility] ([id number]) [address], [address] [place] [address] Lactate (P gallo) [Moles/Vol]o n 06-14-2024 LACTATE W/REFLEX 0.8 mmol/L Normal 0.4-2.0 [facility] Comment on above: Result Comment: Result did not trigger repeat Lactate, re-order if needed. Performed By: #### EPI Flores BCA, , 2776-05 #### [facility] ([id number]) [address], [address] [place] [address] Magnesium Ionized ISE (Bld) [Moles/Vol]on 06-14-2024 Magnesium [Moles/Vol] 0.51 mmol/L Normal 0.45-0.74 [facility] Comment on above: Result Comment: NEW REFERENCE RANGE Performed By: #### EPI Flores BCA, , 2776-05 #### [facility] ([id number]) [address], [address] [place] [address] PHOSPHORUSon 06-14-2024 Phosphate [Mass/Vol] 4.0 mg/dL Normal 2.4-4.9 [facility] Comment on above: Performed By: #### EPI Flores BCA, , 2776-05 #### [facility] ([id number]) [address], [address] [place] [address] POTASSIUMon 06-14-2024 Potassium [Moles/Vol] 4.2 mmol/L Normal 3.5-5.0 [facility] Comment on above: Performed By: #### EPI Flores BCA, , 2776-05 #### [facility] ([id number]) [address], [address] [place] [address] Procalcitonin IA [Mass/Vol]o n 06-14-2024 PROCALCITONIN 0.19 ng/mL High <0.05 [facility] Comment on above: Result Comment: NOTE <0.50 ng/mL - Low risk of severe sepsis and/or septic shock. <2.00 ng/mL - Recommend retesting within 6-24 hours. >2.00 ng/mL - High risk of sepsis and/or septic shock. Performed By: #### C EPI CROCKER, 10032-6, 2777-1 #### [facility] ([id number]) [address], [address] [place] [address] XR CHEST 1 VWon 06-14-2024 XR CHEST 1 VW XR CHEST 1 VW History: Fever Technique: A portable single frontal view of the chest was obtained. Comparison: 06/12/2024 Findings: There is no evidence for active cardiovascular or pulmonary disease. The heart size is within normal limits and lung benton are clear. There is an enteric tube in place and in the stomach with its tip coursing off the lower field of view. Impression: Normal chest. Finalized by Mele King MD on 06/14/2024 1:[address] [facility] BASIC METABOLIC PANLon 06-13 Anion gap [Moles/Vol] 12 mmol/L Normal 5-15 [facility] Comment on above: Performed By: #### C EPI CROCKER, 67540-0 #### [facility] ([id number]) [address], [address] [place] [address] Calcium [Mass/Vol] 8.0 mg/dL Low 8.5-10.5 [facility] Comment on above: Performed By: #### EPI Flores BCA, 77939-5 #### [facility] ([id number]) [address], [address] [place] [address] Chloride [Moles/Vol] 96 mmol/L Low 98-109 [facility] Comment on above: Performed By: #### EPI Flores BCA, 95276-9 #### [facility] ([id number]) [address], [address] [place] [address] CO2 [Moles/Vol] 32 mmol/L Normal 22-32 [facility] Comment on above: Performed By: #### EPI Flores BCA, 00916-8 #### [facility] ([id number]) [address], [address] [place] [address] Creatinine [Mass/Vol] 1.03 mg/dL Normal 0.60-1.30 [facility] Comment on above: Result Comment: METH OD TRACEABLE TO IDMS STANDARD Performed By: #### C EPI CROCKER, 95363-5 #### [facility] ([id number]) [address], [address] [address] GFR/1.73 sq M.predicted among non-blacks MDRD (S/P/Bld) [Vol rate/Area] 80 mL/min/{1.73_m2} Normal >59 [facility] Comment on above: Result Comment: Reported eGFR is based on the CKD-EPI 2020 equation that does not use a race coefficient. Performed By: #### C EPI CROCKER, 19225-0 #### [facility] ([id number]) [address] [place] [address] Glucose [Mass/Vol] 96 mg/dL Normal 65-99 [facility] Comment on above: Performed By: #### C EPI CROCKER, 25193-1 #### [facility] ([id number]) [address] [place] [address] Potassium [Moles/Vol] 3.8 mmol/L Normal 3.5-5.0 [facility] Comment on above: Performed By: #### C EPI CROCKER, 79501-7 #### [facility] ([id number]) [address] [place] [address] Sodium [Moles/Vol] 140 mmol/L Normal 134-146 [facility] Comment on above: Performed By: #### EPI Flores BCA, 42632-4 #### [facility] ([id number]) [address], [address] [place] [address] Urea nitrogen [Mass/Vol] 17 mg/dL Normal 5-27 [facility] Comment on above: Performed By: #### EPI Flores BCA, 49671-6 #### [facility] ([id number]) [address], [address] [place] [address] BLOOD CULTUREon 06-13-2024 Bacteria identified Aer cx Nom (Bld) CULTURE RESULTS NO GROWTH [address] [facility] Bacteria identified Aer cx Nom (Bld) CULTURE RESULTS NO GROWTH [address] [facility] CBC AND AUTO DIFFon 06-13-19 25 Band form neutrophils/100 WBC (Bld) 4.0 % Normal [facility] Comment on above: Performed By: #### EPI Flores BCA, 29101-5 #### [facility] ([id number]) [address], [address] [place] [address] Eosinophils (Bld) [#/Vol] 0.6 10*3/uL High 0.0-0.4 [facility] Comment on above: Performed By: #### EPI Flores BCA, 83243-5 #### [facility] ([id number]) [address], [address] [place] [address] Eosinophils/100 WBC (Bld) 6.0 % Normal [facility] Comment on above: Performed By: #### EPI Flores BCA, 40258-2 #### [facility] ([id number]) [address], [address] [place] [address] Erythrocyte distribution width (RBC) [Ratio] 17.3 % High 11.5-15.0 [facility] Comment on above: Performed By: #### EPI Flores BCA, 06655-6 #### [facility] ([id number]) [address], [address] [place] [address] Hematocrit (Bld) [Volume fraction] 29.6 % Low 39-49 [facility] Comment on above: Performed By: #### EPI Flores BCA, 13568-3 #### [facility] ([id number]) [address], [address] [place] [address] Hemoglobin (Bld) [Mass/Vol] 10.1 g/dL Low 13.0-17.0 [facility] Comment on above: Performed By: #### EPI Flores BCA, 83588-3 #### [facility] ([id number]) [address], [facility] [address] [place] [address] Lymphocytes (Bld) [#/Vol] 3.5 10*3/uL Normal 1.0-3.5 [facility] Comment on above: Performed By: #### EPI Flores BCA, 67229-4 #### [facility] ([id number]) [address], [facility] [address] [place] [address] Lymphocytes/100 WBC (Bld) 33.0 % Normal [facility] Comment on above: Performed By: #### EPI Flores BCA, 30847-7 #### [facility] ([id number]) [address], [facility] [address] [place] [address] MCH (RBC) [Entitic mass] 34.3 pg High 27-34 [facility] Comment on above: Performed By: #### EPI Flores BCA, 23380-1 #### [facility] ([id number]) [address], [address] [place] [address] MCHC (RBC) [Mass/Vol] 34.0 g/dL Normal 32-36 [facility] Comment on above: Performed By: #### EPI Flores BCA, 77299-4 #### [facility] ([id number]) [address] [address] [place] [address] MCV (RBC) [Entitic vol] 101 fL High 80-100 P [facility] Comment on above: Performed By: #### EPI Flores BCA, 96574-7 #### [facility] ([id number]) [address], [address] [place] [address] Monocytes (Bld) [#/Vol] 0.7 10*3/uL Normal 0-0.9 [facility] Comment on above: Performed By: #### EPI Flores BCA, 87111-2 #### [facility] ([id number]) [address], [facility] [address] [place] [address] Monocytes/100 WBC (Bld) 7.0 % Normal P [facility] Comment on above: Performed By: #### EPI Flores BCA, 76076-3 #### [facility] ([id number]) [address], [facility] [address] [place] [address] Neutrophils (Bld) [#/Vol] 5.9 10*3/uL Normal 1.5-6.6 [facility] Comment on above: Performed By: #### EPI Flores BCA, 92338-2 #### [facility] ([id number]) [address], [facility] [address] [place] [address] Platelet mean volume (Bld) [Entitic vol] 6.7 fL Low 7-12 [facility] Comment on above: Performed By: #### EPI Flores BCA, 39203-6 #### [facility] ([id number]) [address], [facility] [address] [place] [address] Platelets (Bld) [#/Vol] 441 10*3/uL Normal 150-450 [facility] Comment on above: Performed By: #### EPI Flores BCA, 02786-0 #### [facility] ([id number]) [address], [facility] [address] [place] [address] RBC COUNT 2.94 X10E12/L Low 4.10-5.70 [facility] Comment on above: Performed By: #### EPI Flores BCA, 40389-3 #### [facility] ([id number]) [address], [address] [place] [address] RBC morphology finding Nom (Bld) NORMAL Normal [facility] Comment on above: Performed By: #### C LIZZETTE, EPI, 76657-9 #### [facility] ([id number]) [address], [address] [place] [address] SEG NEUTROPHIL 50.0 % Normal [facility] Comment on above: Performed By: #### C LIZZETTE, EPI, 14245-0 #### [facility] ([id number]) [address], [address] [place] [address] WBC (Bld) [#/Vol] 10.7 10*3/uL Normal 4.0-11.0 [facility] Comment on above: Performed By: #### C LIZZETTE, EPI, 15187-4 #### [facility] ([id number]) [address], [address] [place] [address] CT BRAIN WO CONTon CT BRAIN WO CONT CT BRAIN WO CONT CT BRAIN WITHOUT CONTRAST HISTORY: Stroke, follow-up, subarachnoid hemorrhage, intracerebral hemorrhage, follow-up. COMPARISON: CT brain 06/12/2024 TECHNIQUE: Unenhanced axial images of the brain were obtained. Automatic exposure control (AEC) was utilized. All CT scans at this facility use dose modulation, iterative reconstruction, and/or weight based dosing when appropriate to reduce radiation dose to as low as reasonably achievable. FINDINGS: Redemonstrated intraparenchymal hemorrhage at the werner-white junction in the posterior right frontal lobe measuring up to approximately 2.6 cm in AP dimension. There is surrounding vasogenic edema. Acute subarachnoid blood products are seen within the right sylvian fissure, right central sulcus, and sulci of the right frontal lobe, slightly increased since prior. Mild adjacent sulcal effacement. No significant shift of midline structures. Partial opacification of venous structures compatible with prior contrast administration. Mildly prominent ventricles and cerebral sulci compatible with mild diffuse cerebral cortical atrophy. Bilateral lens replacement. Near-complete opacification of the right maxillary sinus with partial opacification of the remaining paranasal sinuses and ethmoid air cells. Near complete opacification of right mastoid air cells with partial opacification of left mastoid air cells. No depressed calvarial fractures. IMPRESSION: Stable right temporal parietal junction intraparenchymal hematoma with adjacent vasogenic edema. Maximal dimension is approximately 2.5 cm. No significant shift of midline structures. Increased volume of subarachnoid blood products within the right sylvian fissure right cerebral sulci. Most pronounced within the right central sulcus. THIS REPORT CONTAINS A SIGNIFICANT RESULT AND/OR RECOMMENDATION, WHICH REQUIRES THE ATTENTION OF THE LICENSED CAREGIVER RESPONSIBLE FOR THIS PATIENT. THEREFORE, I SPECIFICALLY DESIGNATED THIS REPORT TO BE TELEPHONED BY THE RADIOLOGY DEPARTMENT. FINDINGS WERE INSTRUCTED TO BE CALLED TO THE CLINICAL SERVICE ON 06/13/2024 7:22 AM IMoris have personally reviewed the image(s) and agree with and/or edited the report Finalized by Moris Gong on 06/13/2024 7:[address] [facility] CT CTV HEADon 06-13-[address] CTV HEAD EXAM: CT CTV HEAD INDICATION: Stroke, hemorrhagic COMPARISON: CT of the head from 06/12/2024 TECHNIQUE/PROTOCOL: Contrast enhanced head CT venogram was performed. 3D reconstructions were performed to evaluate vascular anatomy. CT venogram of the head was performed following intravenous administration of 100 cc Omnipaque 350 non-ionic intravenous contrast. Maximum intensity projection images generated and reviewed under concurrent physician supervision. Automated exposure control was utilized. CONTRAST: 100mL Omnipaque IV. FINDINGS: No venous thrombosis or evidence of stenosis Superior Sagittal Sinus: Normal. Internal Cerebral Veins: Normal. Vein of Clarence: Normal. Straight Sinus: Normal. [place] of Sinuses: Normal. Transverse Sinuses: Right-sided dominant. Sigmoid Sinuses: Normal. Right temporal parietal junction hematoma better appreciated on concurrently performed CT of the head. IMPRESSION: Patent intracranial venous structures. No thrombosis or stenosis. See separate CT of the head Finalized by Moris Gong on 06/13/2024 7:[address] [facility] Calcium.ionized (Bld) [Mass/ Vol]on 06-13-2024 IONIZED CALCIUM 4.4 mg/dL Low 4.5-5.3 [facility] Comment on above: Performed By: #### C BCA, BMP, 77003-6, 2777-1 #### [facility] ([id number]) [address], [address] [place] [address] Lipid 1996 panelon 5 Cholesterol [Mass/Vol] 152 mg/dL Normal 150-200 [facility] Comment on above: Performed By: #### Sandra CROCKER, EPI, , 1 #### [facility] ([id number]) [address], [address] [place] [address] Cholesterol in HDL [Mass/Vol] 26 mg/dL Low >39 [facility] Comment on above: Result Comment: HDL <40 mg/dL - High Risk HDL > or = 40mg/dL- Desirable HDL >60 mg/dL - Negative Risk Performed By: #### Sandra CROCKER, BMP, , 2776-05 #### [facility] ([id number]) [address], [address] [place] [address] Cholesterol in LDL [Mass/Vol] 99 mg/dL Normal <130 [facility] Comment on above: Result Comment: LDL <100 mg/dL - Desirable LDL >160 mg/dL - High Risk Performed By: #### Sandra CROCKER, BMP, , 2776-05 #### [facility] ([id number]) [address], [address] [place] [address] Cholesterol in VLDL [Mass/Vol] 27 mg/dL Normal 0-30 [facility] Comment on above: Performed By: #### Sandra CROCKER, BMP, , 2776-05 #### [facility] ([id number]) [address], [address] [place] [address] CHOLESTEROL:HDL 5.8 High 1.0-5.0 [facility] Comment on above: Performed By: #### C EPI CROCKER, , 2776-05 #### [facility] ([id number]) [address], [address] [place] [address] Triglyceride [Mass/Vol] 136 mg/dL Normal 27-150 P [facility] Comment on above: Performed By: #### EPI Flores BCA, , 2776-05 #### [facility] ([id number]) [address], [address] [place] [address] Magnesium Ionized ISE (Bld) [Moles/Vol]on 06-13-2024 Magnesium [Moles/Vol] 0.53 mmol/L Normal 0.45-0.74 [facility] Comment on above: Result Comment: NEW REFERENCE RANGE Performed By: #### EPI Flores BCA, , 2776-05 #### [facility] ([id number]) [address], [address] [place] [address] PHOSPHORUSon 06-13-2024 Phosphate [Mass/Vol] 3.6 mg/dL Normal 2.4-4.9 [facility] Comment on above: Performed By: #### EPI Flores BCA, , 2776-05 #### [facility] ([id number]) [address], [address] [place] [address] PLATELET COUNT AND MPVon Platelet mean volume (Bld) [Entitic vol] 6.7 fL Low 7-12 [facility] Comment on above: Performed By: #### EPI Flores BCA, , 2776-05 #### [facility] ([id number]) [address], [address] [place] [address] Platelets (Bld) [#/Vol] 409 10*3/uL Normal 150-450 [facility] Comment on above: Performed By: #### C LIZZETTE, [facility], , 2776-05 #### [facility] ([id number]) [address], [address] [place] [address] POTASSIUMon 06-13-2024 Potassium [Moles/Vol] 3.9 mmol/L Normal 3.5-5.0 [facility] Comment on above: Performed By: #### C LIZZETTE, [facility], , 2776-05 #### [facility] ([id number]) [address], [address] [place] [address] PROTIME AND INRon 06-13-2024 INR Coag (PPP) [Relative time] 1.2 {INR} High 0.8-1.1 [facility] Comment on above: Performed By: #### C LIZZETTE, [facility], , 2776-05 #### [facility] ([id number]) [address], [address] [place] [address] PT Coag (PPP) [Time] 13.9 s High 9.8-13.2 [facility] Comment on above: Performed By: #### C LIZZETTE, [facility], , 1 #### [facility] ([id number]) [address], [address] [place] [address] RESP PATHOGENS/THIK-ZrM-0pl 06-13-2024 Respiratory pathogens DNA and RNA panel MARGARET+non-probe (Nph) SPECIMEN SOURCE NASO PHARYNX ADENOVIRUS Not detected (qualifier value) CORONAVIRUS 229E Not detected (qualifier value) CORONAVIRUS HKU1 Not detected (qualifier value) CORONAVIRUS NL63 Not detected (qualifier value) CORONAVIRUS OC43 Not detected (qualifier value) HUMAN METAPNEUVIRUS Not detected (qualifier value) RHINO/ENTEROVIRUS Not detected (qualifier value) INFLUENZA A Not detected (qualifier value) INFLUENZA B Not detected (qualifier value) PARAINFLUENZA 1 Not detected (qualifier value) PARAINFLUENZA 2 Not detected (qualifier value) PARAINFLUENZA 3 Not detected (qualifier value) PARAINFLUENZA 4 Not detected (qualifier value) RESP SYNCYTIAL VIRUS Not detected (qualifier value) BORD PARAPERTUSSIS Not detected (qualifier value) BORDETELLA PERTUSSIS Not detected (qualifier value) CHLAM.PNEUMONIAE Not detected (qualifier value) MYCO. PNEUMONIAE Not detected (qualifier value) SARS CoV 2 Detected (qualifier value) NOTE The [employer] Respiratory Panel 2.1 (RP2.1) is a multiplexed nucleic acid test intended for the simultaneous qualitative detection and differentiation of nucleic acid from multiple viral and bacterial respiratory organisms, including nucleic acid from Severe Acute Respiratory Syndrome Coronavirus 2 (SARS-CoV-2), in nasopharyngeal swabs obtained from individuals suspected of COVID-19 by their healthcare provider. Testing is limited to laboratories certified under the Clinical Laboratory Improvement Amendments of 1988 (CLIA), to perform high complexity or moderate complexity tests. SARS-CoV-2 RNA and nucleic acids from the other respiratory viral and bacterial organisms identified by this test are generally detectable in nasopharyngeal swabs during the acute phase of infection. The detection and identification of specific viral and bacterial nucleic acids from individuals exhibiting signs and/or symptoms of respiratory infection is indicative of the presence of the identified microorganism and aids in the diagnosis of respiratory infection if used in conjunction with other clinical and epidemiological information. Positive results are indicative of the presence of the identified organism, but do not rule out co-infection with other pathogens. The agent(s) detected by the [employer] RP2.1 may not be the definite cause of disease and clinical correlation with patient history and other diagnostic information is necessary to determine patient infection status. Negative results in the setting of a respiratory illness may be due to infection with pathogens not detected by this test, or lower respiratory tract infection that may not be detected by a nasopharyngeal specimen. Negative results do not preclude SARS-CoV-2 infection and should not be used as the sole basis for patient management decisions. Negative VIRI-CoV-2 results must be combined with clinical observations, patient history and epidemiological information. Negative results for other organisms identified by the test may require additional laboratory testing when evaluating a patient with possible respiratory tract infection. Normal [facility] Comment on above: Performed By: #### [place], BMP, 67535-7, 2777-1 #### [facility] ([id number]) [address] [place] [address], [address] [place] [address] URINALYSISon 06-13-2024 Bilirubin Ql (U) Negative Normal NEG [facility] Comment on above: Performed By: #### C LIZZETTE BMP, , 2776-05 #### [facility] ([id number]) [address], [address] [place] [address] BLOOD/HGB Trace Abnormal NEG [facility] Comment on above: Performed By: #### C LIZZETTE, BMP, , 2776-05 #### [facility] ([id number]) [address], [address] [place] [address] Color (U) YELLOW Normal YELLOW [facility] Comment on above: Performed By: #### C LIZZETTE, BMP, , 2776-05 #### [facility] ([id number]) [address], [address] [place] [address] Glucose Ql (U) Negative Normal NEG [facility] Comment on above: Performed By: #### Sandra CROCKER, BMP, , 2776-05 #### [facility] ([id number]) [address], [address] [place] [address] Ketones Ql (U) 60 mg/dL Abnormal NEG [facility] Comment on above: Performed By: #### C LIZZETTE, BMP, , 2776-05 #### [facility] ([id number]) [address], [address] [place] [address] Leukocyte esterase Test strip Ql (U) Negative Normal NEG [facility] Comment on above: Performed By: #### C LIZZETTE, BMP, , 2776-05 #### [facility] ([id number]) [address], [address] [place] [address] MUCOUS PRESENT Abnormal NONE [facility] Comment on above: Performed By: #### C LIZZETTE, BMP, , 2776-05 #### [facility] ([id number]) [address], [address] [place] [address] Nitrite Ql (U) Negative Normal NEG [facility] Comment on above: Performed By: #### C EPI CROCKER, , 2776-05 #### [facility] ([id number]) [address], [address] [place] [address] pH (U) 8.5 [pH] Normal 5.0-8.5 [facility] Comment on above: Performed By: #### C EPI CROCKER, , 2776-05 #### [facility] ([id number]) [address], [address] [place] [address] Protein Ql (U) 50 mg/dL Abnormal NEG [facility] Comment on above: Result Comment: Not confirmed. Interpret positive result with caution due to alkaline pH. Suggest quantitative Urine Protein be tested. Performed By: #### C EPI CROCKER, , 2776-05 #### [facility] ([id number]) [address], [address] [place] [address] R.B.CELLS 22 /hpf High 0-5 [facility] Comment on above: Performed By: #### EPI Flores BCA, , 2776-05 #### [facility] ([id number]) [address], [address] [place] [address] Specific gravity (U) [Rel density] 1.016 Normal 1.003-1.[address] [facility] Comment on above: Performed By: #### C LIZZETTE BMP, , 2776-05 #### [facility] ([id number]) [address], [address] [place] [address] TURBIDITY CLEAR Normal CLEAR [facility] Comment on above: Performed By: #### C LIZZETTE BMP, , 2776-05 #### [facility] ([id number]) [address], [address] [place] [address] Urobilinogen Qn (U) 2 {Jasmyn'U}/dL High <1.1 [facility] Comment on above: Performed By: #### C LIZZETTE, BMP, , 2776-05 #### [facility] ([id number]) [address], [address] [place] [address] W.B.CELLS 3 /hpf Normal 0-5 [facility] Comment on above: Performed By: #### C LIZZETTE, BMP, , 2776-05 #### [facility] ([id number]) [address], [address] [place] [address] URINE CULTUREon 06-13-2024 Bacteria identified Cx Nom (U) CULTURE RESULTS NO GROWTH AT <1000 CFU/mL Normal [facility] Comment on above: Performed By: #### C LIZZETTE, EPI, , 2776-05 #### [facility] ([id number]) [address], [address] [place] [address] XR ABDOMEN AP 1 VWon 025 XR ABDOMEN AP 1 VW XR ABDOMEN AP 1 VW XR ABDOMEN AP 1 VW HISTORY: Confirm Post-Pyloric Tube Placement; PP placement. COMPARISON: none IMPRESSION: Feeding tube terminates near the ligament of Treitz. Finalized by Redd Mantilla MD on 06/13/2024 5:[address] [facility] BASIC METABOLIC PANLon 06-12 Anion gap [Moles/Vol] 9 mmol/L Normal 5-15 [facility] Comment on above: Performed By: #### C LIZZETTE, BMP, , 2776-05 #### [facility] ([id number]) [address], [address] [place] [address] Calcium [Mass/Vol] 8.0 mg/dL Low 8.5-10.5 [facility] Comment on above: Performed By: #### C EPI CROCKER, , 2776-05 #### [facility] ([id number]) [address], [address] [place] [address] Chloride [Moles/Vol] 90 mmol/L Low 98-109 [facility] Comment on above: Performed By: #### C LIZZETTE, BMP, , 2776-05 #### [facility] ([id number]) [address], [address] [place] [address] CO2 [Moles/Vol] 38 mmol/L High 22-32 [facility] Comment on above: Performed By: #### C EPI CROCKER, , 2776-05 #### [facility] ([id number]) [address], [address] [place] [address] Creatinine [Mass/Vol] 0.96 mg/dL Normal 0.60-1.30 [facility] Comment on above: Result Comment: METH OD TRACEABLE TO IDMS STANDARD Performed By: #### C EPI CROCKER, , 2776-05 #### [facility] ([id number]) [address], [address] [place] [address] GFR/1.73 sq M.predicted among non-blacks MDRD (S/P/Bld) [Vol rate/Area] 87 mL/min/{1.73_m2} Normal >59 [facility] Comment on above: Result Comment: Reported eGFR is based on the CKD-EPI 2020 equation that does not use a race coefficient. Performed By: #### C LIZZETTE BMP, , 2776-05 #### [facility] ([id number]) [address], [address] [place] [address] Glucose [Mass/Vol] 90 mg/dL Normal 65-99 [facility] Comment on above: Performed By: #### C BCA, BMP, 72266[address]22[address]-05 #### [facility] ([id number]) [address], [address] [place] [address] Potassium [Moles/Vol] 3.5 mmol/L Normal 3.5-5.0 [facility] Comment on above: Performed By: #### C EPI CROCKER, , 2776-05 #### [facility] ([id number]) [address], [address] [place] [address] Sodium [Moles/Vol] 137 mmol/L Normal 134-146 [facility] Comment on above: Performed By: #### C EPI CROCKER, , 2776-05 #### [facility] ([id number]) [address], [address] [place] [address] Urea nitrogen [Mass/Vol] 20 mg/dL Normal 5-27 [facility] Comment on above: Performed By: #### C EPI CROCKER, , 2776-05 #### [facility] ([id number]) [address], [address] [place] [address] CBC AND AUTO DIFFon 06-12-19 25 ABSOLUTE BASOPHIL 0.1 X10E9/L Normal 0.0-0.2 [facility] Comment on above: Performed By: #### C EPI CROCKER, 2776-05 #### [facility] ([id number]) [address], [address] [place] [address] ABSOLUTE NEUTROPHIL 4.5 X10E9/L Normal 1.5-6.6 [facility] Comment on above: Performed By: #### C LIZZETTE BMP, 2776-05 #### [facility] ([id number]) [address], [address] [place] [address] Basophils/100 WBC (Bld) 1.1 % Normal [facility] Comment on above: Performed By: #### C EPI CROCKER, , 2776-05 #### [facility] ([id number]) [address] [place] [address] Eosinophils (Bld) [#/Vol] 0.3 10*3/uL Normal 0.0-0.4 [facility] Comment on above: Performed By: #### C LIZZETTE, BMP, , 2776-05 #### [facility] ([id number]) [address], [facility] [address] [place] [address] Eosinophils/100 WBC (Bld) 4.0 % Normal [facility] Comment on above: Performed By: #### C LIZZETTE, BMP, , 2776-05 #### [facility] ([id number]) [address] [address] [place] [address] Erythrocyte distribution width (RBC) [Ratio] 17.4 % High 11.5-15.0 [facility] Comment on above: Performed By: #### C LIZZETTE, EPI, , 2776-05 #### [facility] ([id number]) [address] [address] [place] [address] Hematocrit (Bld) [Volume fraction] 27.9 % Low 39-49 [facility] Comment on above: Performed By: #### C LIZZETTE, BMP, , 2776-05 #### [facility] ([id number]) [address] [address] [place] [address] Hemoglobin (Bld) [Mass/Vol] 9.8 g/dL Low 13.0-17.0 [facility] Comment on above: Performed By: #### Sandra CROCKER, BMP, , 2776-05 #### [facility] ([id number]) [address] [address] [place] [address] Lymphocytes (Bld) [#/Vol] 2.7 10*3/uL Normal 1.0-3.5 [facility] Comment on above: Performed By: #### C EPI CROCKER, , 2776-05 #### [facility] ([id number]) [address], [address] [place] [address] Lymphocytes/100 WBC (Bld) 31.3 % Normal [facility] Comment on above: Performed By: #### C EPI CROCKER, , 2776-05 #### [facility] ([id number]) [address], [address] [place] [address] MCH (RBC) [Entitic mass] 35.4 pg High 27-34 [facility] Comment on above: Performed By: #### C LIZZETTE, EPI, , 2776-05 #### [facility] ([id number]) [address], [address] [place] [address] MCHC (RBC) [Mass/Vol] 35.2 g/dL Normal 32-36 [facility] Comment on above: Performed By: #### C EPI CROCKER, , 2776-05 #### [facility] ([id number]) [address], [address] [place] [address] MCV (RBC) [Entitic vol] 101 fL High 80-100 P [facility] Comment on above: Performed By: #### EPI Flores BCA, , 2776-05 #### [facility] ([id number]) [address], [address] [place] [address] Monocytes (Bld) [#/Vol] 0.9 10*3/uL Normal 0-0.9 [facility] Comment on above: Performed By: #### C LIZZETTE, BMP, , 2776-05 #### [facility] ([id number]) [address], [address] [place] [address] Monocytes/100 WBC (Bld) 10.8 % Normal P [facility] Comment on above: Performed By: #### C LIZZETTE, BMP, , 2776-05 #### [facility] ([id number]) [address], [address] [place] [address] Neutrophils/100 WBC (Bld) 52.8 % Normal [facility] Comment on above: Performed By: #### Sandra CROCKER, BMP, , 2776-05 #### [facility] ([id number]) [address], [address] [place] [address] Platelet mean volume (Bld) [Entitic vol] 6.6 fL Low 7-12 [facility] Comment on above: Performed By: #### Sandra CROCKER, BMP, , 2776-05 #### [facility] ([id number]) [address], [address] [place] [address] Platelets (Bld) [#/Vol] 363 10*3/uL Normal 150-450 [facility] Comment on above: Performed By: #### Sandra CROCKER, BMP, , 2776-05 #### [facility] ([id number]) [address], [address] [place] [address] RBC COUNT 2.77 X10E12/L Low 4.10-5.70 [facility] Comment on above: Performed By: #### Sandra CROCKER, BMP, , 2776-05 #### [facility] ([id number]) [address], [address] [place] [address] WBC (Bld) [#/Vol] 8.5 10*3/uL Normal 4.0-11.0 [facility] Comment on above: Performed By: #### Sandra CROCKER, BMP, , 2776-05 #### [facility] ([id number]) [address], [address] [place] [address] Glucose Glucometer (BldC) [M ass/Vol]on 06-12-2024 Glucose [Mass/Vol] 106 mg/dL High 65-99 [facility] HGB A1C (GLYCO-HGB)on 2024 Glucose [Mass/Vol] 100 mg/dL Normal [facility] Comment on above: Performed By: #### H A1C #### [facility] ([id number]) [address], [address] [place] [address] HbA1c (Bld) [Mass fraction] 5.1 % Normal 4.4-5.6 [facility] Comment on above: Result Comment: NOTE ADA Guidelines Result HgbA1c Normal : less than 5.7 % Prediabetes : 5.7 % to 6.4 % Diabetes : > 6.4 % Use with caution in patients with abnormal hemoglobin variants as the half-life of red blood cells and in vivo glycation rates are affected. Performed By: #### H A1C #### [facility] ([id number]) [address], [address] [place] [address] MAGNESIUMon 06-12-2024 Magnesium [Mass/Vol] 1.8 mg/dL Normal 1.8-2.6 [facility] Comment on above: Performed By: #### C EPI CROCKER, 71182-3, 2777-1 #### [facility] ([id number]) [address], [address] [place] [address] PHOSPHORUSon 06-12-2024 Phosphate [Mass/Vol] 4.9 mg/dL Normal 2.4-4.9 [facility] Comment on above: Performed By: #### C EPI CROCKER, 91060-6, 2777-1 #### [facility] ([id number]) [address], [address] [place] [address] URINALYSISon 06-12-2024 Bilirubin Ql (U) Negative Normal NEG [facility] Comment on above: Performed By: #### U A #### [facility] ([id number]) [address], [address] [place] [address] BLOOD/HGB Negative Normal NEG [facility] Comment on above: Performed By: #### U A #### [facility] ([id number]) [address], [address] [place] [address] Color (U) YELLOW Normal YELLOW [facility] Comment on above: Performed By: #### U A #### [facility] ([id number]) [address], [address] [place] [address] Glucose Ql (U) Negative Normal NEG [facility] Comment on above: Performed By: #### U A #### [facility] ([id number]) [address], [address] [place] [address] Ketones Ql (U) 10 mg/dL Abnormal NEG [facility] Comment on above: Performed By: #### U A #### [facility] ([id number]) [address], [address] [place] [address] Leukocyte esterase Test strip Ql (U) Negative Normal NEG [facility] Comment on above: Performed By: #### U A #### [facility] ([id number]) [address], [address] [place] [address] Nitrite Ql (U) Negative Normal NEG [facility] Comment on above: Performed By: #### U A #### [facility] ([id number]) [address], [address] [place] [address] pH (U) 7.0 [pH] Normal 5.0-8.5 [facility] Comment on above: Performed By: #### U A #### [facility] ([id number]) [address], [address] [place] [address] Protein Ql (U) Trace Abnormal NEG [facility] Comment on above: Performed By: #### U A #### [facility] ([id number]) [address], [address] [place] [address] R.B.CELLS 2 /hpf Normal 0-5 [facility] Comment on above: Performed By: #### U A #### [facility] ([id number]) [address], [address] [place] [address] Specific gravity (U) [Rel density] 1.005 Normal 1.003-1.[address] [facility] Comment on above: Performed By: #### U A #### [facility] ([id number]) [address], [address] [place] [address] TURBIDITY CLEAR Normal CLEAR [facility] Comment on above: Performed By: #### U A #### [facility] ([id number]) [address], [address] [place] [address] Urobilinogen (U) [Mass/Vol] mg/dL Normal <1.1 [facility] Comment on above: Performed By: #### U A #### [facility] ([id number]) [address], [address] [place] [address] W.B.CELLS 1 /hpf Normal 0-5 [facility] Comment on above: Performed By: #### U A #### [facility] ([id number]) [address], [address] [place] [address] XR CHEST 1 VWon 06-12-2024 XR CHEST 1 VW XR CHEST 1 VW CHEST 1 VIEW HISTORY: Hypoxia COMPARISON: None IMPRESSION: * Low lung volumes with hypoventilatory changes. * Prominent perihilar opacities likely represent perihilar atelectasis. * No focal consolidation, pleural effusions or pneumothorax. Finalized by Khadar Kenney MD on 06/12/2024 7:[address] [facility] ALL CBC WITH AUTO DIFFon BASOPHILS ABSOLUTE AUTO 0 [facility] Basophils/100 WBC (Bld) 0.3 % 0.2 - 2.0 % [facility] Eosin[facility]/100 WBC (Bld) 3.4 % 0.9 - 7.0 % [facility] Erythrocyte distribution width (RBC) [Ratio] 16.6 % High 11.0 - 15.0 % [facility] Hematocrit (Bld) [Volume fraction] 31 % Low 42.0 - 54.0 % [facility] Hemoglobin (Bld) [Mass/Vol] 9.8 g/dL Low 14.0 - 18.0 g/dL [facility] IMMATURE GRANULOCYTES ABS AUTO 0.12 High [facility] Immature granulocytes/100 WBC (Bld) 1 % High 0.0 - 0.5 % [facility] Interpretation and review of laboratory results Abnormal [facility] LYMPHOCYTES ABSOLUTE AUTO 4.5 High [facility] Lymphocytes/100 WBC (Bld) 38.7 % 20.5 - 60.0 % [facility] MCH (RBC) [Entitic mass] 33.6 pg 25.9 - 34.0 pg [facility] MCHC (RBC) [Mass/Vol] 31.6 g/dL 29.9 - 35.2 g/dL [facility] MCV (RBC) [Entitic vol] 106.2 fL High 80.0 - 94.0 fL [facility] MONOCYTES ABSOLUTE AUTO 1.4 High N [facility] Monocytes/100 WBC (Bld) 11.6 % 1.7 - 12.0 % [facility] NEUTROPHILS ABSOLUTE AUTO 5.3 [facility] Neutrophils/100 WBC (Bld) 45 % 43.0 - 75.0 % [facility] Platelet mean volume (Bld) [Entitic vol] 8.9 fL Low 9.5 - 13.5 fL [facility] TBH EO # 0.4 [facility] TBH PLT 373 [facility] TB RBC 2.92 Low [facility]H WBC 11.7 High [facility] Alanine aminotransferase [En zymatic activity/volume] in Serum or PlasmaOrdered By: Shira Nath on 05-23-2024 ALT [Catalytic activity/Vol] Alanine aminotransferase [Enzymatic activity/volume] in Serum or Plasma [facility] Albumin [Mass/volume] in Ser um or Plasma by Bromocresol green (BCG) dye binding methoOrdered By: Shira Bettencourtr on 05-23-2024 Albumin BCG dye [Mass/Vol] Albumin [Mass/volume] in Serum or Plasma by Bromocresol green (BCG) dye binding metho Low 3.5-5.7 [facility] Alkaline phosphatase [Enzyma tic activity/volume] in Serum or PlasmaOrdered By: Obariandahaylee Riosomar on 05-23-2024 ALP [Catalytic activity/Vol] Alkaline phosphatase [Enzymatic activity/volume] in Serum or Plasma 34-104 [facility] Aspartate aminotransferase [ Enzymatic activity/volume] in Serum or PlasmaOrdered By: Obapril Riosomar on 05-23-2024 AST [Catalytic activity/Vol] Aspartate aminotransferase [Enzymatic activity/volume] in Serum or Plasma 13-39 [facility] Basophils Auto (Bld) [#/Vol] Ordered By: Obapril Riosomar on 05-23-2024 Basophils (Bld) [#/Vol] Automated basophil count 0.0-0.2 [facility] Basophils/100 WBC Auto (Bld) Ordered By: Obariandahaylee Riosomar on 05-23-2024 Basophils/100 WBC (Bld) Automated basophil % . [facility] Bilirubin.total [Mass/volume ] in Serum or PlasmaOrdered By: Shira Bettencourtr on 05-23-2024 Bilirubin [Mass/Vol] Bilirubin.total [Mass/volume] in Serum or Plasma High 0.3-1.0 [facility] Comment on above: Samples from patient s who have taken Naproxen have shown spurious elevation in Total Bilirubin levels. A metabolite of Naproxen, O-desmethylnaproxen, has been shown to interfere with the Kacey-Katia method for measuring Total Bilirubin. Calcium [Mass/volume] in Ser um or PlasmaOrdered By: Obapril Riosomar on 05-23-2024 Calcium [Mass/Vol] Calcium [Mass/volume ] in Serum or Plasma 8.6-10.3 [facility] Carbon dioxide, total [Moles /volume] in Serum or PlasmaOrdered By: Obariandahaylee Riosomar on 05-23-2024 CO2 [Moles/Vol] Carbon dioxide, tota l [Moles/volume] in Serum or Plasma High 21.0-31.0 [facility] Chloride [Moles/volume] in S kay or PlasmaOrdered By: Shira Nath on 05-23-2024 Chloride [Moles/Vol] Chloride [Moles/vol ume] in Serum or Plasma 98-107 [facility] Complete Blood Count Auto Di ffon 05-23-2024 Basophils (Bld) [#/Vol] 0.1 10*3/uL Normal 0.0-0.2 [facility] Comment on above: Result Comment: PERF ORMED BY:[address] [place], [place] [id number] MEDICAL DIRECTORFRANCHESCA MAGALLON M.D. Performed By: #### C BC ####[address] Basophils/100 WBC (Bld) 0.7 % Normal . [facility] Comment on above: Performed By: #### C BC ####[place] [id number] [facility] Eosinophils (Bld) [#/Vol] 0.1 10*3/uL Normal 0.0-0.45 [facility] Comment on above: Performed By: #### C BC ####[place] [id number] [facility] Eosinophils/100 WBC (Bld) 0.4 % Normal . [facility] Comment on above: Performed By: #### C BC ####[place] [id number] [facility] Erythrocyte distribution width (RBC) [Ratio] 16.8 % High 12.0-14.8 [facility] Comment on above: Performed By: #### C BC ####[place] [id number] [facility] Hematocrit (Bld) [Volume fraction] 31.5 % Low 38.8-50.0 [facility] Comment on above: Performed By: #### C BC ####[place] [id number] [facility] Hemoglobin (Bld) [Mass/Vol] 10.9 g/dL Low 13.0-17.0 [facility] Comment on above: Performed By: #### C BC ####[place] [id number] [facility] Lymphocytes (Bld) [#/Vol] 2.3 10*3/uL Normal 1.00-4.8 [facility] Comment on above: Performed By: #### C BC ####[place] [id number] [facility] Lymphocytes/100 WBC (Bld) 11.4 % Normal . [facility] Comment on above: Performed By: #### C BC ####[address] MCH (RBC) [Entitic mass] 33.5 pg Normal 27.5-35.2 [facility] Comment on above: Performed By: #### C BC ####[address] MCV (RBC) [Entitic vol] 96.6 fL Normal 83.5-101 [facility] Comment on above: Performed By: #### C BC ####[address] Mean Corpuscular HGB Conc 34.7 g/dL Normal 32.5-35.6 [facility] Comment on above: Performed By: #### C BC ####[place] [id number] [facility] Monocytes (Bld) [#/Vol] 1.4 10*3/uL High 0.0-0.8 [facility] Comment on above: Performed By: #### C BC ####[place] [id number] [facility] Monocytes/100 WBC (Bld) 6.9 % Normal . [facility] Comment on above: Performed By: #### C BC ####[address] Neutrophils (Bld) [#/Vol] 16.1 10*3/uL High 1.8-7.7 [facility] Comment on above: Performed By: #### C BC ####[address] Neutrophils/100 WBC (Bld) 80.6 % Normal . [facility] Comment on above: Performed By: #### C BC ####[address] NRBC% 0.1 /100{WBC} Normal 0-0.5 [facility] Comment on above: Performed By: #### C BC ####[address] Platelet mean volume (Bld) [Entitic vol] 7.9 fL Normal 6.6-10.1 [facility] Comment on above: Performed By: #### C BC ####[address] Platelets (Bld) [#/Vol] 303 10*3/uL Normal 150-450 [facility] Comment on above: Performed By: #### C BC ####[address] RBC (Bld) [#/Vol] 3.27 10*6/uL Low 3.90-5.60 [facility] Comment on above: Performed By: #### C BC ####[address] WBC (Bld) [#/Vol] 20.1 10*3/uL High 4.1-10.5 [facility] Comment on above: Performed By: #### C BC ####[address] Comprehensive Metabolic Pane raudel 05-23-2024 Albumin [Mass/Vol] 3.2 g/dL Low 3.5-5.7 [facility] Comment on above: Performed By: #### C MP ####[place] [id number] [facility] Albumin/Globulin [Mass ratio] 1.7 {ratio} Normal [facility] Comment on above: Performed By: #### C MP ####[place] [id number] [facility] ALP [Catalytic activity/Vol] 72 U/L Normal 34-104 [facility] Comment on above: Performed By: #### C MP ####[place] [id number] [facility] ALT [Catalytic activity/Vol] 34 U/L Normal 7-52 [facility] Comment on above: Performed By: #### C MP ####[address] Anion gap [Moles/Vol] 10.5 mmol/L Normal 6.0-15.0 [facility] Comment on above: Performed By: #### C MP ####[address] AST [Catalytic activity/Vol] 19 U/L Normal 13-39 [facility] Comment on above: Performed By: #### C MP ####[address] Bilirubin [Mass/Vol] 1.6 mg/dL High 0.3-1.0 [facility] Comment on above: Result Comment: Samp les from patients who have taken Naproxen have shown spurious elevation in Total Bilirubin levels. A metabolite of Naproxen, O-desmethylnaproxen, has been shown to interfere with the Jendropalik-Grof method for measuring Total Bilirubin. Performed By: #### C MP ####[place] [id number] [facility] Calcium [Mass/Vol] 8.7 mg/dL Normal 8.6-10.3 [facility] Comment on above: Performed By: #### C MP ####[place] [id number] [facility] Chloride [Moles/Vol] 99 mmol/L Normal 98-107 [facility] Comment on above: Performed By: #### C MP ####[address] [address] [facility] CO2 [Moles/Vol] 33.1 mmol/L High 21.0-31.0 [facility] Comment on above: Performed By: #### C MP ####[address] [address] [facility] Creatinine [Mass/Vol] 0.92 mg/dL Normal 0.70-1.30 [facility] Comment on above: Performed By: #### C MP ####[address] [address] [facility] Creatinine Clr Calc Pharmacy 78.86 Normal [facility] Comment on above: Result Comment: PERF ORMED BY:[address] [place], [place] [phone] MEDICAL DIRECTORFRANCHESCA MAGALLON M.D. Performed By: #### C MP ####[place] [id number] [facility] GFR/1.73 sq M.predicted MDRD (S/P/Bld) [Vol rate/Area] mL/min/{1.73_m2} Normal [facility] Comment on above: Performed By: #### C MP ####[place] [id number] [facility] Globulin (S) [Mass/Vol] 1.9 g/dL Normal [facility] Comment on above: Performed By: #### C MP ####[place] [id number] [facility] Glucose [Mass/Vol] 85 mg/dL Normal 70-100 [facility] Comment on above: Result Comment: [employer] om Glucose Reference Range is dependent on time and content of last meal. Glucose of more than 200 mg/dL in a nonstressed, ambulatory subject supports the diagnosis of Diabetes Mellitus. ADA recommended reference range Performed By: #### C MP ####[place] [id number] [facility] Potassium [Moles/Vol] 3.6 mmol/L Normal 3.5-5.1 [facility] Comment on above: Performed By: #### C MP ####[place] [id number] Protein [Mass/Vol] 5.1 g/dL Low 6.4-8.9 [facility] Comment on above: Performed By: #### C MP ####[address] Sodium [Moles/Vol] 139 mmol/L Normal 136-145 [facility] Comment on above: Performed By: #### C MP ####[place] [address] Urea nitrogen [Mass/Vol] 44 mg/dL High 7-25 [facility] Comment on above: Performed By: #### C MP ####[address] Creatinine [Mass/volume] in Serum or PlasmaOrdered By: Shira Nath on 05-23-2024 Creatinine [Mass/Vol] Creatinine [Mass/v olume] in Serum or Plasma 0.70-1.30 [facility] Eosinophils Auto (Bld) [#/Vo l]Ordered By: Shira Nath on 05-23-2024 Eosinophils (Bld) [#/Vol] Automated eosinophil count 0.0-0.45 [facility] Eosinophils/100 WBC Auto (Bl d)Ordered By: Shira Nath on 05-23-2024 Eosinophils/100 WBC (Bld) Automated eosinophil % . [facility] Erythrocyte distribution wid th Auto (RBC) [Ratio]Ordered By: Shira Nath on 05-23-2024 Erythrocyte distribution width (RBC) [Ratio] Erythrocyte distribution width [Ratio] by Automated count High 12.0-14.8 [facility] Globulin Calc (S) [Mass/Vol] Ordered By: Shira Nath on 05-23-2024 Globulin (S) [Mass/Vol] Serum globulin m easurement by calculation (mass/volume) [facility] Glucose Glucometer (BldC) [M ass/Vol]Ordered By: Shira Nath on 05-23-2024 Glucose [Mass/Vol] Capillary blood gluc ose measurement by glucometer (mass/volume) [facility] Comment on above: Random Glucose Refer ence Range is dependent on time and content of last meal. Glucose of more than 200 mg/dL in a nonstressed, ambulatory subject supports the diagnosis of Diabetes Mellitus. Glucose Poct Glucometerson 0 05-23-2024 Commemt1 Glu2: Cleaned Meter Normal [facility] Comment on above: Result Comment: PERF ORMED BY:[place] [address] [place], [place] [phone] MEDICAL DIRECTORFRANCHESCA MAGALLON M.D. Performed By: #### G LULS ####Point of Care testing, Glucose [Mass/Vol] 208 mg/dL Normal [facility] Comment on above: Result Comment: [employer] om Glucose Reference Range is dependent on time and content of last meal. Glucose of more than 200 mg/dL in a nonstressed, ambulatory subject supports the diagnosis of Diabetes Mellitus. Performed By: #### G LULS ####Point of Care testing, Commemt1 Glu2: Cleaned Meter Normal [facility] Comment on above: Result Comment: PERF ORMED BY:[place] [address] [address] [place], [place] [phone] MEDICAL DIRECTORFRANCHESCA MAGALLON M.D. Performed By: #### G LULS ####Point of Care testing, Glucose [Mass/Vol] 77 mg/dL Normal [facility] Comment on above: Result Comment: [employer] om Glucose Reference Range is dependent on time and content of last meal. Glucose of more than 200 mg/dL in a nonstressed, ambulatory subject supports the diagnosis of Diabetes Mellitus. Performed By: #### G LULS ####Point of Care testing, Glucose [Mass/volume] in Ser um or PlasmaOrdered By: Shira Nath on 05-23-2024 Glucose [Mass/Vol] Glucose [Mass/volume ] in Serum or Plasma 70-100 [facility] Comment on above: ADA recommended refe rence rangeRandom Glucose Reference Range is dependent on time and content of last meal. Glucose of more than 200 mg/dL in a nonstressed, ambulatory subject supports the diagnosis of Diabetes Mellitus. Hematocrit Auto (Bld) [Volum e fraction]Ordered By: Shira Nath on 05-23-2024 Hematocrit (Bld) [Volume fraction] Hematocrit [Volume Fraction] of Blood by Automated count Low 38.8-50.0 [facility] Hemoglobin [Mass/volume] in BloodOrdered By: Shira Bettencourtr on 05-23-2024 Hemoglobin (Bld) [Mass/Vol] Hemoglobin [Mass/volume] in Blood Low 13.0-17.0 [facility] Leukocytes [#/volume] correc suri for nucleated erythrocytes in Blood by Automated counOrdered By: Shira Nath on 05-23-2024 WBC corrected for nucl RBC Auto (Bld) [#/Vol] Leukocytes [#/volume] corrected for nucleated erythrocytes in Blood by Automated coun High 4.1-10.5 [facility] Lymphocytes Auto (Bld) [#/Vo l]Ordered By: Shira Nath on 05-23-2024 Lymphocytes (Bld) [#/Vol] Lymphocytes [#/volume] in Blood by Automated count 1.00-4.8 [facility] Lymphocytes/100 WBC Auto (Bl d)Ordered By: Shira Nath on 05-23-2024 Lymphocytes/100 WBC (Bld) Lymphocytes/100 leukocytes in Blood by Automated count . [facility] MCH Auto (RBC) [Entitic mass ]Ordered By: Shira Nath on 05-23-2024 MCH (RBC) [Entitic mass] MCH [Entitic mass] by Automated count 27.5-35.2 [facility] MCHC Auto (RBC) [Mass/Vol]Or dered By: Shira Riosomar on 05-23-2024 MCHC (RBC) [Mass/Vol] MCHC [Mass/volume] by Automated count 32.5-35.6 [facility] MCV Auto (RBC) [Entitic vol] Ordered By: Shira Bettencourtr on 05-23-2024 MCV (RBC) [Entitic vol] MCV [Entitic vol ume] by Automated count 83.5-101 [facility] Monocytes Auto (Bld) [#/Vol] Ordered By: Shira Nath on 05-23-2024 Monocytes (Bld) [#/Vol] Automated blood monocyte count High 0.0-0.8 [facility] Monocytes/100 WBC Auto (Bld) Ordered By: Shira Nath on 05-23-2024 Monocytes/100 WBC (Bld) Automated monocyte % . [facility] Neutrophils Auto (Bld) [#/Vo l]Ordered By: Shira Bettencourtr on 05-23-2024 Neutrophils (Bld) [#/Vol] Neutrophils [#/volume] in Blood by Automated count High 1.8-7.7 [facility] Neutrophils/100 WBC Auto (Bl d)Ordered By: Shira Nath on 05-23-2024 Neutrophils/100 WBC (Bld) Automated neutrophil % . [facility] No Panel InformationOrdered By: Shira Nath on 05-23-2024 Bedside Glucose Comment Glu2: cleaned meter [facility] Estimated GFR (CKD-EPI) > 60.0 mL/Min [facility] Creatinine Clearance (Chem 78.86 [facility] Nucleated erythrocytes [Pres ence] in Blood by Automated countOrdered By: Shira Nath on 05-23-2024 Nucleated RBC Auto Ql (Bld) Nucleated erythrocytes [Presence] in Blood by Automated count 0-0.5 [facility] Platelet mean volume Auto (B ld) [Entitic vol]Ordered By: Shira Nath on 05-23-2024 Platelet mean volume (Bld) [Entitic vol] Platelet mean volume [Entitic volume] in Blood by Automated count 6.6-10.1 [facility] Platelets Auto (Bld) [#/Vol] Ordered By: Shira Nath on 05-23-2024 Platelets (Bld) [#/Vol] Platelets [#/vol ume] in Blood by Automated count 150-450 [facility] Potassium [Moles/volume] in Serum or PlasmaOrdered By: Shira Nath on 05-23-2024 Potassium [Moles/Vol] Potassium [Moles/v olume] in Serum or Plasma 3.5-5.1 [facility] Protein [Mass/volume] in Ser um or PlasmaOrdered By: Shira Riosomar on 05-23-2024 Protein [Mass/Vol] Protein [Mass/volume ] in Serum or Plasma Low 6.4-8.9 [facility] RBC Auto (Bld) [#/Vol]Ordere d By: Shira Riosomar on 05-23-2024 RBC (Bld) [#/Vol] Erythrocytes [#/volu me] in Blood by Automated count Low 3.90-5.60 [facility] Serum or plasma albumin/glob ulin mass ratioOrdered By: Shira Riosomar on 05-23-2024 Albumin/Globulin [Mass ratio] Serum or plasma albumin/globulin mass ratio [facility] Serum or plasma anion gap de terminationOrdered By: Shira Riosomar on 05-23-2024 Anion gap [Moles/Vol] Serum or plasma an ion gap determination 6.0-15.0 [facility] Sodium [Moles/volume] in Ser um or PlasmaOrdered By: Shira Riosomar on 05-23-2024 Sodium [Moles/Vol] Sodium [Moles/volume ] in Serum or Plasma 136-145 [facility] Urea nitrogen [Mass/volume] in Serum or PlasmaOrdered By: Shira Riosomar on 05-23-2024 Urea nitrogen [Mass/Vol] Urea nitrogen [Mass/volume] in Serum or Plasma High 7-25 [facility] WBC Auto (Bld) [#/Vol]Ordere d By: Shira Riosomar on 05-23-2024 WBC (Bld) [#/Vol] Leukocytes [#/volume ] in Blood by Automated count High 4.1-10.5 [facility] Anisocytosis LM Ql (Bld)Orde red By: Shira Riosomar on 05-22-2024 Anisocytosis Ql (Bld) Anisocytosis [Pres ence] in Blood by Light microscopy [facility] Band form neutrophils/100 WB C Manual cnt (Bld)Ordered By: Shira Nath on 05-22-2024 Band form neutrophils/100 WBC (Bld) Peripheral white blood cell differential % bands, microscopic exam 0-5 [facility] Comprehensive Metabolic Pane raudel 05-22-2024 Albumin [Mass/Vol] 3.2 g/dL Low 3.5-5.7 [facility] Comment on above: Performed By: #### C MP ####[address] [address] [facility] Albumin/Globulin [Mass ratio] 1.4 {ratio} Normal [facility] Comment on above: Performed By: #### C MP ####[address] [address] [facility] ALP [Catalytic activity/Vol] 62 U/L Normal 34-104 [facility] Comment on above: Performed By: #### C MP ####[address] [address] [facility] ALT [Catalytic activity/Vol] 42 U/L Normal 7-52 [facility] Comment on above: Performed By: #### C MP ####[address] [address] [facility] Anion gap [Moles/Vol] 11.6 mmol/L Normal 6.0-15.0 [facility] Comment on above: Performed By: #### C MP ####[address] [address] [facility] AST [Catalytic activity/Vol] 25 U/L Normal 13-39 [facility] Comment on above: Performed By: #### C MP ####[address] [address] [facility] Bilirubin [Mass/Vol] 1.8 mg/dL High 0.3-1.0 [facility] Comment on above: Result Comment: Samp les from patients who have taken Naproxen have shown spurious elevation in Total Bilirubin levels. A metabolite of Naproxen, O-desmethylnaproxen, has been shown to interfere with the Kacey-Katia method for measuring Total Bilirubin. Performed By: #### C MP ####[place] [id number] [facility] Calcium [Mass/Vol] 8.3 mg/dL Low 8.6-10.3 [facility] Comment on above: Performed By: #### C MP ####[place] [id number] [facility] Chloride [Moles/Vol] 100 mmol/L Normal 98-107 [facility] Comment on above: Performed By: #### C MP ####[place] [id number] [facility] CO2 [Moles/Vol] 27.0 mmol/L Normal 21.0-31.0 [facility] Comment on above: Performed By: #### C MP ####[place] [id number] [facility] Creatinine [Mass/Vol] 1.22 mg/dL Normal 0.70-1.30 [facility] Comment on above: Performed By: #### C MP ####[place] [id number] [facility] Creatinine Clr Calc Pharmacy 59.90 Normal [facility] Comment on above: Result Comment: PERF ORMED BY:[address] [place], [place] [id number] MEDICAL DIRECTORFRANCHESCA MAGALLON M.D. Performed By: #### C MP ####[place] [id number] [facility] GFR/1.73 sq M.predicted MDRD (S/P/Bld) [Vol rate/Area] mL/min/{1.73_m2} Normal [facility] Comment on above: Performed By: #### C MP ####[place] [id number] [facility] Globulin (S) [Mass/Vol] 2.3 g/dL Normal [facility] Comment on above: Performed By: #### C MP ####[address] Glucose [Mass/Vol] 89 mg/dL Normal 70-100 [facility] Comment on above: Result Comment: [employer] Glucose Reference Range is dependent on time and content of last meal. Glucose of more than 200 mg/dL in a nonstressed, ambulatory subject supports the diagnosis of Diabetes Mellitus. ADA recommended reference range Performed By: #### C MP ####[address] Potassium [Moles/Vol] 3.6 mmol/L Normal 3.5-5.1 [facility] Comment on above: Result Comment: Hemo lysis is present at a level that could interfere with the result. Contact lab if redraw is required Performed By: #### C MP ####[address] Protein [Mass/Vol] 5.5 g/dL Low 6.4-8.9 [facility] Comment on above: Performed By: #### C MP ####[address] Sodium [Moles/Vol] 135 mmol/L Low 136-145 [facility] Comment on above: Performed By: #### C MP ####[address] Urea nitrogen [Mass/Vol] 46 mg/dL High 7-25 [facility] Comment on above: Performed By: #### C MP ####[address] Diff and CBCon 05-22-2024 Anisocytosis Ql (Bld) Slight Normal [facility] Comment on above: Performed By: #### D IFF CBC ####[address] Band form neutrophils/100 WBC (Bld) 2 % Normal 0-5 [facility] Comment on above: Performed By: #### D IFF CBC ####[address] Erythrocyte distribution width (RBC) [Ratio] 16.1 % High 12.0-14.8 [facility] Comment on above: Performed By: #### D IFF CBC ####[address] [address] [facility] Hematocrit (Bld) [Volume fraction] 31.7 % Low 38.8-50.0 [facility] Comment on above: Performed By: #### D IFF CBC ####[address] [address] [facility] Hemoglobin (Bld) [Mass/Vol] 10.9 g/dL Low 13.0-17.0 [facility] Comment on above: Performed By: #### D IFF CBC ####[place] [id number] [facility] Lymphocytes/100 WBC (Bld) 9 % Low 18-42 [facility] Comment on above: Performed By: #### D IFF CBC ####[place] [id number] [facility] MCH (RBC) [Entitic mass] 33.3 pg Normal 27.5-35.2 [facility] Comment on above: Performed By: #### D IFF CBC ####[place] [id number] [facility] MCV (RBC) [Entitic vol] 96.8 fL Normal 83.5-101 [facility] Comment on above: Performed By: #### D IFF CBC ####[place] [id number] [facility] Mean Corpuscular HGB Conc 34.4 g/dL Normal 32.5-35.6 [facility] Comment on above: Performed By: #### D IFF CBC ####[place] [id number] [facility] Monocytes/100 WBC (Bld) 4 % Normal 2-11 [facility] Comment on above: Performed By: #### D IFF CBC ####[address] [address] [facility] Ovalocytes Slight Normal [facility] Comment on above: Performed By: #### D IFF CBC ####[place] [id number] [facility] Platelet Estimate Normal Normal Normal [facility] Comment on above: Performed By: #### D IFF CBC ####[place] [id number] [facility] Platelet mean volume (Bld) [Entitic vol] 8.2 fL Normal 6.6-10.1 [facility] Comment on above: Performed By: #### D IFF CBC ####[place] [id number] [facility] Platelet Morphology Normal Normal Normal [facility] Comment on above: Result Comment: PERF ORMED BY:[address] [place], [place] [id number] MEDICAL DIRECTORFRANCHESCA MAGALLON M.D. Performed By: #### D IFF CBC ####[place] [id number] [facility] Platelets (Bld) [#/Vol] 310 10*3/uL Normal 150-450 [facility] Comment on above: Performed By: #### D IFF CBC ####[place] [id number] [facility] Poikilocytosis Slight Normal [facility] Comment on above: Performed By: #### D IFF CBC ####[place] [id number] [facility] RBC (Bld) [#/Vol] 3.27 10*6/uL Low 3.90-5.60 [facility] Comment on above: Performed By: #### D IFF CBC ####[place] [id number] [facility] Reactive Lymphocytes 2 % Normal 0-12 [facility] Comment on above: Performed By: #### D IFF CBC ####[place] [id number] [facility] Schistocytes Slight Normal [facility] Comment on above: Performed By: #### D IFF CBC ####[place] [id number] [facility] Segmented neutrophils/100 WBC (Bld) 84 % High 50-70 [facility] Comment on above: Performed By: #### D IFF CBC ####[address] [address] [facility] WBC (Bld) [#/Vol] 21.0 10*3/uL High 4.1-10.5 [facility] Comment on above: Performed By: #### D IFF CBC ####[place] [id number] [facility] Erythrocyte morphology findi ng [Identifier] in BloodOrdered By: Shira Nath on 05-22-2024 RBC morphology finding Nom (Bld) RBC morphology [facility] Glucose Poct Glucometerson 0 05-22-2024 Glucose [Mass/Vol] 171 mg/dL Normal [facility] Comment on above: Result Comment: [facility] Glucose Reference Range is dependent on time and content of last meal. Glucose of more than 200 mg/dL in a nonstressed, ambulatory subject supports the diagnosis of Diabetes Mellitus.PERFORMED BY:[address] [place], [place] [phone] MEDICAL DIRECTORFRANCHESCA MAGALLON M.D. Performed By: #### G LULS ####Point of Care testing, Glucose [Mass/Vol] 184 mg/dL Normal [facility] Comment on above: Result Comment: [facility] Glucose Reference Range is dependent on time and content of last meal. Glucose of more than 200 mg/dL in a nonstressed, ambulatory subject supports the diagnosis of Diabetes Mellitus.PERFORMED BY:[address] [place], [place] [phone] MEDICAL DIRECTORFRANCHESCA MAGALLON M.D. Performed By: #### G LULS ####Point of Care testing, Glucose [Mass/Vol] 87 mg/dL Normal [facility] Comment on above: Result Comment: [facility] Glucose Reference Range is dependent on time and content of last meal. Glucose of more than 200 mg/dL in a nonstressed, ambulatory subject supports the diagnosis of Diabetes Mellitus.PERFORMED BY:[address], [place] [phone] MEDICAL DIRECTORFRANCHESCA MAGALLON M.D. Performed By: #### G LULS ####Point of Care testing, Glucose [Mass/Vol] 326 mg/dL Normal [facility] Comment on above: Result Comment: [facility] Glucose Reference Range is dependent on time and content of last meal. Glucose of more than 200 mg/dL in a nonstressed, ambulatory subject supports the diagnosis of Diabetes Mellitus.PERFORMED BY:[place] [address] [address] [place] [phone] MEDICAL DIRECTORFRANCHESCA MAGALLON M.D. Performed By: #### G LULS ####Point of Care testing, Lymphocytes/100 WBC Manual c nt (Bld)Ordered By: Shira Nath on 05-22-2024 Lymphocytes/100 WBC (Bld) Lymphocytes/100 leukocytes in Blood by Manual count Low 18-42 [facility] Monocytes/100 WBC Manual cnt (Bld)Ordered By: Obapril Riosomar on 05-22-2024 Monocytes/100 WBC (Bld) Monocytes/100 le ukocytes in Blood by Manual count 2-11 [facility] Ovalocytes [Presence] in Blo od by Light microscopyOrdered By: Shira Bettencourtr on 05-22-2024 Ovalocytes LM Ql (Bld) Ovalocyte detection [facility] Platelet adequacy [Presence] in Blood by Light microscopyOrdered By: Shira Bettencourtr on 05-22-2024 Platelets LM Ql (Bld) Platelet adequacy [Presence] in Blood by Light microscopy Normal [facility] Platelet morphology finding [Identifier] in BloodOrdered By: Obapril Bettencourtr on 05-22-2024 Platelet morphology finding Nom (Bld) Platelet morphology finding [Identifier] in Blood Normal [facility] Poikilocytosis [Presence] in Blood by Light microscopyOrdered By: Shira Bettencourtr on 05-22-2024 Poikilocytosis LM Ql (Bld) Poikilocytosis [Presence] in Blood by Light microscopy [facility] Schistocytes [Presence] in B lood by Light microscopyOrdered By: Shira Nath on 05-22-2024 Schistocytes LM Ql (Bld) Schistocytes [Presence] in Blood by Light microscopy [facility] Segmented neutrophils/100 WB C Manual cnt (Bld)Ordered By: Shira Bettencourtr on 05-22-2024 Segmented neutrophils/100 WBC (Bld) Manual blood segmented neutrophils/100 leukocytes High 50-70 [facility] Variant lymphocytes/100 WBC Manual cnt (Bld)Ordered By: Shira Riosomar on 05-22-2024 Variant lymphocytes/100 WBC (Bld) Variant lymphocytes/100 leukocytes in Blood by Manual count 0-12 [facility] Basic Metabolic Panelon 05-11 Anion gap [Moles/Vol] 8.7 mmol/L Normal 6.0-15.0 [facility] Comment on above: Performed By: #### B MP ####[place] [id number] [facility] Calcium [Mass/Vol] 8.2 mg/dL Low 8.6-10.3 [facility] Comment on above: Performed By: #### B MP ####[place] [id number] [facility] Chloride [Moles/Vol] 100 mmol/L Normal 98-107 [facility] Comment on above: Performed By: #### B MP ####[place] [id number] [facility] CO2 [Moles/Vol] 33.0 mmol/L High 21.0-31.0 [facility] Comment on above: Performed By: #### B MP ####[address] [address] [facility] Creatinine [Mass/Vol] 1.13 mg/dL Normal 0.70-1.30 [facility] Comment on above: Performed By: #### B MP ####[address] [address] [facility] Creatinine Clr Calc Pharmacy 65.93 Normal [facility] Comment on above: Result Comment: PERF ORMED BY:[address], [place] [phone] MEDICAL DIRECTORFRANCHESCA MAGALLON M.D. Performed By: #### B MP ####[place] [id number] [facility] GFR/1.73 sq M.predicted MDRD (S/P/Bld) [Vol rate/Area] mL/min/{1.73_m2} Normal [facility] Comment on above: Performed By: #### B MP ####[address] Glucose [Mass/Vol] 119 mg/dL High 70-100 [facility] Comment on above: Result Comment: [facility] Glucose Reference Range is dependent on time and content of last meal. Glucose of more than 200 mg/dL in a nonstressed, ambulatory subject supports the diagnosis of Diabetes Mellitus. ADA recommended reference range Performed By: #### B MP ####[address] Potassium [Moles/Vol] 3.7 mmol/L Normal 3.5-5.1 [facility] Comment on above: Performed By: #### B MP ####[address] Sodium [Moles/Vol] 138 mmol/L Normal 136-145 [facility] Comment on above: Performed By: #### B MP ####[address] Urea nitrogen [Mass/Vol] 39 mg/dL High 7-25 [facility] Comment on above: Performed By: #### B MP ####[place] [id number] [facility] Diff and CBCon 05-21-2024 Anisocytosis Ql (Bld) Slight Normal [facility] Comment on above: Performed By: #### D IFF CBC ####[place] [id number] [facility] Erythrocyte distribution width (RBC) [Ratio] 16.0 % High 12.0-14.8 [facility] Comment on above: Performed By: #### D IFF CBC ####[address] Hematocrit (Bld) [Volume fraction] 30.3 % Low 38.8-50.0 [facility] Comment on above: Performed By: #### D IFF CBC ####[address] Hemoglobin (Bld) [Mass/Vol] 10.2 g/dL Low 13.0-17.0 [facility] Comment on above: Performed By: #### D IFF CBC ####[address] Lymphocytes/100 WBC (Bld) 9 % Low 18-42 [facility] Comment on above: Performed By: #### D IFF CBC ####[address] MCH (RBC) [Entitic mass] 32.6 pg Normal 27.5-35.2 [facility] Comment on above: Performed By: #### D IFF CBC ####[address] MCV (RBC) [Entitic vol] 96.8 fL Normal 83.5-101 [facility] Comment on above: Performed By: #### D IFF CBC ####[address] Mean Corpuscular HGB Conc 33.6 g/dL Normal 32.5-35.6 [facility] Comment on above: Performed By: #### D IFF CBC ####[address] Metamyelocytes 1 % High 0-0 [facility] Comment on above: Performed By: #### D IFF CBC ####[address] Monocytes/100 WBC (Bld) 2 % Normal 2-11 [facility] Comment on above: Performed By: #### D IFF CBC ####[place] [id number] [facility] Platelet Estimate Normal Normal Normal [facility] Comment on above: Performed By: #### D IFF CBC ####[address] Platelet mean volume (Bld) [Entitic vol] 8.2 fL Normal 6.6-10.1 [facility] Comment on above: Result Comment: PERF ORMED BY:[address] [place], [place] [phone] MEDICAL DIRECTORDANIELLACLIFTON SPRINGS H[facility]ITAL & CLINICALEXIS DOFORMERLY MEM[facility] HOSPITAL OF WAKE COUNTYJENNIFER Trujillo Performed By: #### D IFF CBC ####[address] Platelet Morphology Normal Normal Normal [facility] Comment on above: Result Comment: PERF ORMED BY:[address], [place] [phone] MEDICAL DIRECTORDANIELLACLIFTON SPRINGS HOSPITAL & CLINICALEXIS Álvarez [facility] HOSPITALROXI Trujillo Performed By: #### D IFF CBC ####[address] Platelets (Bld) [#/Vol] 324 10*3/uL Normal 150-450 [facility] Comment on above: Performed By: #### D IFF CBC ####[address] RBC (Bld) [#/Vol] 3.13 10*6/uL Low 3.90-5.60 [facility] Comment on above: Performed By: #### D IFF CBC ####[address] Segmented neutrophils/100 WBC (Bld) 89 % High 50-70 [facility] Comment on above: Performed By: #### D IFF CBC ####[address] WBC (Bld) [#/Vol] 25.3 10*3/uL High 4.1-10.5 [facility] Comment on above: Performed By: #### D IFF CBC ####[address] [address] [facility] Glucose Poct Glucometerson 0 05-21-2024 Glucose [Mass/Vol] 245 mg/dL Normal [facility] Comment on above: Result Comment: [employer] [facility] Glucose Reference Range is dependent on time and content of last meal. Glucose of more than 200 mg/dL in a nonstressed, ambulatory subject supports the diagnosis of Diabetes Mellitus.PERFORMED BY:[address] [place], [place] [phone] MEDICAL DIRECTORFRANCHESCA MAGALLON M.D. Performed By: #### G LULS ####Point of Care testing, Glucose [Mass/Vol] 128 mg/dL Normal [facility] Comment on above: Result Comment: [employer] [facility] Glucose Reference Range is dependent on time and content of last meal. Glucose of more than 200 mg/dL in a nonstressed, ambulatory subject supports the diagnosis of Diabetes Mellitus.PERFORMED BY:[address] [place], [place] [phone] MEDICAL DIRECTORFRANCHESCA MAGALLON M.D. Performed By: #### G LULS ####Point of Care testing, Glucose [Mass/Vol] 86 mg/dL Normal [facility] Comment on above: Result Comment: [employer] [facility] Glucose Reference Range is dependent on time and content of last meal. Glucose of more than 200 mg/dL in a nonstressed, ambulatory subject supports the diagnosis of Diabetes Mellitus.PERFORMED BY:[address] [place], [place] [phone] MEDICAL DIRECTORFRANCHESCA MAGALLON M.D. Performed By: #### G LULS ####Point of Care testing, Glucose [Mass/Vol] 104 mg/dL Normal [facility] Comment on above: Result Comment: [employer] om Glucose Reference Range is dependent on time and content of last meal. Glucose of more than 200 mg/dL in a nonstressed, ambulatory subject supports the diagnosis of Diabetes Mellitus.PERFORMED BY:[place] [address] [address] [place], [place] [phone] MEDICAL DIRECTORFRANCHESCA MAGALLON M.D. Performed By: #### G CHATO ####Point of Care testing, Metamyelocytes/100 WBC Manua l cnt (Bld)Ordered By: Shira Nath on 05-21-2024 Metamyelocytes/100 WBC (Bld) Metamyelocytes/100 leukocytes in Blood by Manual count High 0-0 [facility] Basic Metabolic Panelon 05-11 Anion gap [Moles/Vol] 10.6 mmol/L Normal 6.0-15.0 [facility] Comment on above: Performed By: #### C TERRELL, BMP ####[address] [address] [facility] Calcium [Mass/Vol] 8.0 mg/dL Low 8.6-10.3 [facility] Comment on above: Performed By: #### C TERRELL, BMP ####[address] [address] [facility] Chloride [Moles/Vol] 92 mmol/L Low 98-107 [facility] Comment on above: Performed By: #### C TERRELL, BMP ####[address] [address] [facility] CO2 [Moles/Vol] 39.5 mmol/L High 21.0-31.0 [facility] Comment on above: Performed By: #### C BC, BMP ####[address] [address] [facility] Creatinine [Mass/Vol] 1.12 mg/dL Normal 0.70-1.30 [facility] Comment on above: Performed By: #### C BC, BMP ####[address] [address] [facility] Creatinine Clr Calc Pharmacy 66.41 Normal [facility] Comment on above: Result Comment: PERF ORMED BY:[place] [address] [place] [place], [place] [phone] MEDICAL DIRECTORFRANCHESCA MAGALLON M.D. Performed By: #### C BC, BMP ####[address] [address] [facility] GFR/1.73 sq M.predicted MDRD (S/P/Bld) [Vol rate/Area] mL/min/{1.73_m2} Normal [facility] Comment on above: Performed By: #### C BC, BMP ####[place] [id number] [facility] Glucose [Mass/Vol] 120 mg/dL High 70-100 [facility] Comment on above: Result Comment: [facility] Glucose Reference Range is dependent on time and content of last meal. Glucose of more than 200 mg/dL in a nonstressed, ambulatory subject supports the diagnosis of Diabetes Mellitus. ADA recommended reference range Performed By: #### C BC, BMP ####[place] [id number] [facility] Potassium [Moles/Vol] 3.1 mmol/L Low 3.5-5.1 [facility] Comment on above: Performed By: #### C , BMP ####[place] [id number] [facility] Sodium [Moles/Vol] 139 mmol/L Normal 136-145 [facility] Comment on above: Performed By: #### C BC, BMP ####[place] [id number] [facility] Urea nitrogen [Mass/Vol] 39 mg/dL High 7-25 [facility] Comment on above: Performed By: #### C BC, BMP ####[address] [address] [facility] Complete Blood Count Auto Di ffon 05-20-2024 Basophils (Bld) [#/Vol] 0.1 10*3/uL Normal 0.0-0.2 [facility] Comment on above: Result Comment: PERF ORMED BY:[address] [place], [place] [phone] MEDICAL TRESA MAGALLON M.D. Performed By: #### C BC, BMP ####[place] [address] [place] [id number] [facility] Basophils/100 WBC (Bld) 0.4 % Normal . Angelica swift [facility] Comment on above: Performed By: #### C BC, BMP ####[address] [address] [facility] Eosinophils (Bld) [#/Vol] 0.4 10*3/uL Normal 0.0-0.45 [facility] Comment on above: Performed By: #### C BC, BMP ####[place] [id number] [facility] Eosinophils/100 WBC (Bld) 1.8 % Normal . [facility] Comment on above: Performed By: #### C BC, BMP ####[address] Erythrocyte distribution width (RBC) [Ratio] 15.5 % High 12.0-14.8 [facility] Comment on above: Performed By: #### C BC, BMP ####[place] [id number] [facility] Hematocrit (Bld) [Volume fraction] 28.0 % Low 38.8-50.0 [facility] Comment on above: Performed By: #### C BC, BMP ####[place] [id number] [facility] Hemoglobin (Bld) [Mass/Vol] 9.5 g/dL Low 13.0-17.0 [facility] Comment on above: Performed By: #### C BC, BMP ####[place] [id number] [facility] Lymphocytes (Bld) [#/Vol] 1.1 10*3/uL Normal 1.00-4.8 [facility] Comment on above: Performed By: #### C BC, BMP ####[place] [id number] [facility] Lymphocytes/100 WBC (Bld) 5.0 % Normal . [facility] Comment on above: Performed By: #### C BC, BMP ####[address] MCH (RBC) [Entitic mass] 32.9 pg Normal 27.5-35.2 [facility] Comment on above: Performed By: #### C BC, BMP ####[address] MCV (RBC) [Entitic vol] 97.3 fL Normal 83.5-101 [facility] Comment on above: Performed By: #### C BC, BMP ####[address] Mean Corpuscular HGB Conc 33.8 g/dL Normal 32.5-35.6 [facility] Comment on above: Performed By: #### C BC, BMP ####[address] Monocytes (Bld) [#/Vol] 0.6 10*3/uL Normal 0.0-0.8 [facility] Comment on above: Performed By: #### C BC, BMP ####[address] Monocytes/100 WBC (Bld) 2.8 % Normal . [facility] Comment on above: Performed By: #### C BC, BMP ####[address] Neutrophils (Bld) [#/Vol] 19.0 10*3/uL High 1.8-7.7 [facility] Comment on above: Performed By: #### C BC, BMP ####[address] Neutrophils/100 WBC (Bld) 90.0 % Normal . [facility] Comment on above: Performed By: #### C BC, BMP ####[address] NRBC% 0.1 /100{WBC} Normal 0-0.5 [facility] Comment on above: Performed By: #### C TERRELL, BMP ####[address] [address] [facility] Platelet mean volume (Bld) [Entitic vol] 8.4 fL Normal 6.6-10.1 [facility] Comment on above: Performed By: #### C TERRELL, BMP ####[place] [address] [place] [address] [facility] Platelets (Bld) [#/Vol] 270 10*3/uL Normal 150-450 [facility] Comment on above: Performed By: #### C TERRELL, BMP ####[address] [address] [facility] RBC (Bld) [#/Vol] 2.88 10*6/uL Low 3.90-5.60 [facility] Comment on above: Performed By: #### C TERRELL, BMP ####[address] [address] [facility] WBC (Bld) [#/Vol] 21.2 10*3/uL High 4.1-10.5 [facility] Comment on above: Performed By: #### C TERRELL, BMP ####[place] [id number] [facility] Glucose Poct Glucometerson 0 05-20-2024 Glucose [Mass/Vol] 148 mg/dL Normal [facility] Comment on above: Result Comment: [facility] Glucose Reference Range is dependent on time and content of last meal. Glucose of more than 200 mg/dL in a nonstressed, ambulatory subject supports the diagnosis of Diabetes Mellitus.PERFORMED BY:[place] [address] [place] [place], [place] [phone] MEDICAL DIRECTORFRANCHESCA MAGALLON M.D. Performed By: #### G CHATO ####Point of Care testing, Commemt1 Glu2: Cleaned Meter Normal [facility] Comment on above: Result Comment: PERF ORMED BY:[place] [address] [address] [place] [phone] MEDICAL DIRECTORFRANCHESCA MAGALLON M.D. Performed By: #### G LULS ####Point of Care testing, Glucose [Mass/Vol] 317 mg/dL Normal [facility] Comment on above: Result Comment: [employer] om Glucose Reference Range is dependent on time and content of last meal. Glucose of more than 200 mg/dL in a nonstressed, ambulatory subject supports the diagnosis of Diabetes Mellitus. Performed By: #### G LULS ####Point of Care testing, Commemt1 Glu2: Cleaned Meter Normal [facility] Comment on above: Result Comment: PERF ORMED BY:[place] [address] [place], [place] [phone] MEDICAL DIRECTORFRANCHESCA MAGALLON M.D. Performed By: #### G LULS ####Point of Care testing, Glucose [Mass/Vol] 192 mg/dL Normal [facility] Comment on above: Result Comment: [employer] om Glucose Reference Range is dependent on time and content of last meal. Glucose of more than 200 mg/dL in a nonstressed, ambulatory subject supports the diagnosis of Diabetes Mellitus. Performed By: #### G LULS ####Point of Care testing, Glucose [Mass/Vol] 94 mg/dL Normal [facility] Comment on above: Result Comment: [employer] om Glucose Reference Range is dependent on time and content of last meal. Glucose of more than 200 mg/dL in a nonstressed, ambulatory subject supports the diagnosis of Diabetes Mellitus.PERFORMED BY:[place] [address] [place] [place], [place] [phone] MEDICAL DIRECTORFRANCHESCA MAGALLON M.D. Performed By: #### G LULS ####Point of Care testing, Glucose [Mass/Vol] 137 mg/dL Normal [facility] Comment on above: Result Comment: [employer] om Glucose Reference Range is dependent on time and content of last meal. Glucose of more than 200 mg/dL in a nonstressed, ambulatory subject supports the diagnosis of Diabetes Mellitus.PERFORMED BY:[place] [address] [address] [place], [place] [phone] MEDICAL DIRECTORFRANCHESCA MAGALLON M.D. Performed By: #### G CHATO ####Point of Care testing, Basic Metabolic Panelon Anion gap [Moles/Vol] 11.0 mmol/L Normal 6.0-15.0 e [facility] Comment on above: Performed By: #### B MP, CBC ####[address] [address] [facility] Calcium [Mass/Vol] 8.1 mg/dL Low 8.6-10.3 [facility] Comment on above: Performed By: #### B MP, CBC ####[address] [address] [facility] Chloride [Moles/Vol] 89 mmol/L Low 98-107 [facility] Comment on above: Performed By: #### B MP, CBC ####[address] [address] [facility] CO2 [Moles/Vol] 42.5 mmol/L High 21.0-31.0 [facility] Comment on above: Performed By: #### B MP, CBC ####[address] [address] [facility] Creatinine [Mass/Vol] 0.89 mg/dL Normal 0.70-1.30 [facility] Comment on above: Performed By: #### B MP, CBC ####[address] [address] [place] Creatinine Clr Calc Pharmacy 83.57 Normal [facility] Comment on above: Result Comment: PERF ORMED BY:[address] [place], [place] [phone] MEDICAL DIRECTORFRANCHESCA MAGALLON M.D. Performed By: #### B MP, CBC ####[address] [address] [place] GFR/1.73 sq M.predicted MDRD (S/P/Bld) [Vol rate/Area] mL/min/{1.73_m2} Normal [facility] Comment on above: Performed By: #### B MP, CBC ####[place] [id number] [facility] Glucose [Mass/Vol] 87 mg/dL Normal 70-100 [facility] Comment on above: Result Comment: [employer] Glucose Reference Range is dependent on time and content of last meal. Glucose of more than 200 mg/dL in a nonstressed, ambulatory subject supports the diagnosis of Diabetes Mellitus. ADA recommended reference range Performed By: #### B MP, CBC ####[place] [id number] [facility] Potassium [Moles/Vol] 3.5 mmol/L Normal 3.5-5.1 [facility] Comment on above: Performed By: #### B MP, CBC ####[place] [id number] [facility] Sodium [Moles/Vol] 139 mmol/L Normal 136-145 [facility] Comment on above: Performed By: #### B MP, CBC ####[place] [id number] [facility] Urea nitrogen [Mass/Vol] 33 mg/dL High 7-25 [facility] Comment on above: Performed By: #### B MP, CBC ####[place] [id number] [facility] Complete Blood Count Auto Di ffon 05-19-2024 Basophils (Bld) [#/Vol] 0.0 10*3/uL Normal 0.0-0.2 [facility] Comment on above: Result Comment: PERF ORMED BY:[address] [place], [place] [phone] MEDICAL DIRECTORFRANCHESCA MAGALLON M.D. Performed By: #### B MP, CBC ####[place] [id number] [facility] Basophils/100 WBC (Bld) 0.1 % Normal . T [facility] Comment on above: Performed By: #### B MP, CBC ####[place] [id number] [place] Eosinophils (Bld) [#/Vol] 0.0 10*3/uL Normal 0.0-0.45 [facility] Comment on above: Performed By: #### B MP, CBC ####[address] Eosinophils/100 WBC (Bld) 0.0 % Normal . [facility] Comment on above: Performed By: #### B MP, CBC ####[address] Erythrocyte distribution width (RBC) [Ratio] 15.1 % High 12.0-14.8 [facility] Comment on above: Performed By: #### B MP, CBC ####[address] Hematocrit (Bld) [Volume fraction] 27.9 % Low 38.8-50.0 [facility] Comment on above: Performed By: #### B MP, CBC ####[address] Hemoglobin (Bld) [Mass/Vol] 9.5 g/dL Low 13.0-17.0 [facility] Comment on above: Performed By: #### B MP, CBC ####[address] Lymphocytes (Bld) [#/Vol] 1.0 10*3/uL Normal 1.00-4.8 [facility] Comment on above: Performed By: #### B MP, CBC ####[address] Lymphocytes/100 WBC (Bld) 5.6 % Normal . [facility] Comment on above: Performed By: #### B MP, CBC ####[address] MCH (RBC) [Entitic mass] 32.8 pg Normal 27.5-35.2 [facility] Comment on above: Performed By: #### B MP, CBC ####[address] [place] [address] [place] MCV (RBC) [Entitic vol] 96.0 fL Normal 83.5-101 [facility] Comment on above: Performed By: #### B MP, CBC ####[address] Mean Corpuscular HGB Conc 34.1 g/dL Normal 32.5-35.6 [facility] Comment on above: Performed By: #### B MP, CBC ####[address] Monocytes (Bld) [#/Vol] 0.6 10*3/uL Normal 0.0-0.8 [facility] Comment on above: Performed By: #### B MP, CBC ####[address] Monocytes/100 WBC (Bld) 3.2 % Normal . [facility] Comment on above: Performed By: #### B MP, CBC ####[address] Neutrophils (Bld) [#/Vol] 15.7 10*3/uL High 1.8-7.7 [facility] Comment on above: Performed By: #### B MP, CBC ####[address] Neutrophils/100 WBC (Bld) 91.1 % Normal . [facility] Comment on above: Performed By: #### B MP, CBC ####[address] NRBC% 0.0 /100{WBC} Normal 0-0.5 [facility] Comment on above: Performed By: #### B MP, CBC ####[address] Platelet mean volume (Bld) [Entitic vol] 7.8 fL Normal 6.6-10.1 [facility] Comment on above: Performed By: #### B MP, CBC ####[address] [place] [address] [facility] Platelets (Bld) [#/Vol] 265 10*3/uL Normal 150-450 [facility] Comment on above: Performed By: #### B MP, CBC ####[place] [id number] [facility] RBC (Bld) [#/Vol] 2.91 10*6/uL Low 3.90-5.60 [facility] Comment on above: Performed By: #### B MP, CBC ####[place] [id number] [facility] WBC (Bld) [#/Vol] 17.2 10*3/uL High 4.1-10.5 [facility] Comment on above: Performed By: #### B MP, CBC ####[place] [id number] [facility] Glucose Poct Glucometerson 0 05-19-2024 Glucose [Mass/Vol] 148 mg/dL Normal [facility] Comment on above: Result Comment: [facility] Glucose Reference Range is dependent on time and content of last meal. Glucose of more than 200 mg/dL in a nonstressed, ambulatory subject supports the diagnosis of Diabetes Mellitus.PERFORMED BY:[address] [place]MISJaylynHaleyNAT[place], [place] [phone] MEDICAL DIRECTORFRANCHESCA MAGALLON M.D. Performed By: #### G LULS ####Point of Care testing, Glucose [Mass/Vol] 316 mg/dL Normal [facility] Comment on above: Result Comment: [facility] Glucose Reference Range is dependent on time and content of last meal. Glucose of more than 200 mg/dL in a nonstressed, ambulatory subject supports the diagnosis of Diabetes Mellitus.PERFORMED BY:[address] LEMUSHaleyNATALIE, [place] [phone] MEDICAL DIRECTORFRANCHESCA MAGALLON M.D. Performed By: #### G LULS ####Point of Care testing, Glucose [Mass/Vol] 206 mg/dL Normal [facility] Comment on above: Result Comment: [facility] Glucose Reference Range is dependent on time and content of last meal. Glucose of more than 200 mg/dL in a nonstressed, ambulatory subject supports the diagnosis of Diabetes Mellitus.PERFORMED BY:[address] [address] [address] [place], [place] [phone] MEDICAL DIRECTORFRANCHESCA MAGALLON M.D. Performed By: #### G LULS ####Point of Care testing, Glucose [Mass/Vol] 127 mg/dL Normal [facility] Comment on above: Result Comment: [facility] Glucose Reference Range is dependent on time and content of last meal. Glucose of more than 200 mg/dL in a nonstressed, ambulatory subject supports the diagnosis of Diabetes Mellitus.PERFORMED BY:[address] [place] [address] [address] [place], [place] [phone] MEDICAL DIRECTORFRANCHESCA MAGALLON M.D. Performed By: #### G LULS ####Point of Care testing, Magnesiumon 05-19-2024 Magnesium [Mass/Vol] 1.9 mg/dL Normal 1.9-2.7 [facility] Comment on above: Order Comment: Comme nt add on to AM labs Result Comment: PERF ORMED BY:[place] [address] [address] [place], [place] [phone] MEDICAL DIRECTORFRANCHESCA MAGALLON M.D. Performed By: #### M G ####[address] [address] [facility] Magnesium [Mass/volume] in S kay or PlasmaOrdered By: Jimmy Matias on 05-19-2024 Magnesium [Mass/Vol] Magnesium [Mass/vol ume] in Serum or Plasma 1.9-2.7 [facility] Basic Metabolic Panelon Anion gap [Moles/Vol] 12.1 mmol/L Normal 6.0-15.0 [facility] Comment on above: Order Comment: draw all labs at 0530 Performed By: #### B MP, CBC ####[address] [address] [facility] Calcium [Mass/Vol] 8.4 mg/dL Low 8.6-10.3 [facility] Comment on above: Order Comment: draw all labs at 0530 Performed By: #### B MP, CBC ####[address] [address] [facility] Chloride [Moles/Vol] 92 mmol/L Low 98-107 [facility] Comment on above: Order Comment: draw all labs at 0530 Performed By: #### B MP, CBC ####[address] [address] [facility] CO2 [Moles/Vol] 37.9 mmol/L High 21.0-31.0 [facility] Comment on above: Order Comment: draw all labs at 0530 Performed By: #### B MP, CBC ####[address] [address] [facility] Creatinine [Mass/Vol] 0.82 mg/dL Normal 0.70-1.30 [facility] Comment on above: Order Comment: draw all labs at 0530 Performed By: #### B MP, CBC ####[address] [address] [place] Creatinine Clr Calc Pharmacy 92.14 Normal [facility] Comment on above: Order Comment: draw all labs at 0530 Result Comment: PERF ORMED BY:[address] [place], [place] [phone] MEDICAL DIRECTORFRANCHESCA MAGALLON M.D. Performed By: #### B MP, CBC ####[address] [address] [place] GFR/1.73 sq M.predicted MDRD (S/P/Bld) [Vol rate/Area] mL/min/{1.73_m2} Normal [facility] Comment on above: Order Comment: draw all labs at 0530 Performed By: #### B MP, CBC ####[address] [address] [place] Glucose [Mass/Vol] 136 mg/dL High 70-100 [facility] Comment on above: Order Comment: draw all labs at 0530 Result Comment: [facility] Glucose Reference Range is dependent on time and content of last meal. Glucose of more than 200 mg/dL in a nonstressed, ambulatory subject supports the diagnosis of Diabetes Mellitus. ADA recommended reference range Performed By: #### B MP, CBC ####[address] [address] [facility] Potassium [Moles/Vol] 4.0 mmol/L Normal 3.5-5.1 [facility] Comment on above: Order Comment: draw all labs at 0530 Performed By: #### B MP, CBC ####[place] [id number] [facility] Sodium [Moles/Vol] 138 mmol/L Normal 136-145 [facility] Comment on above: Order Comment: draw all labs at 0530 Performed By: #### B MP, CBC ####[place] [phone] [facility] Urea nitrogen [Mass/Vol] 32 mg/dL High 7-25 [facility] Comment on above: Order Comment: draw all labs at 0530 Performed By: #### B MP, CBC ####[address] [address] [facility] Complete Blood Count Auto Di ffon 05-18-2024 Basophils (Bld) [#/Vol] 0.0 10*3/uL Normal 0.0-0.2 [facility] Comment on above: Order Comment: draw all labs at 0530 Result Comment: PERF ORMED BY:[address] [place], [place] [phone] MEDICAL DIRECTORFRANCHESCA MAGALLON M.D. Performed By: #### B MP, CBC ####[place] [phone] [facility] Basophils/100 WBC (Bld) 0.0 % Normal . T [facility] Comment on above: Order Comment: draw all labs at 0530 Performed By: #### B MP, CBC ####[address] [place] [address] [place] Eosinophils (Bld) [#/Vol] 0.0 10*3/uL Normal 0.0-0.45 [facility] Comment on above: Order Comment: draw all labs at 0530 Performed By: #### B MP, CBC ####[address] Eosinophils/100 WBC (Bld) 0.0 % Normal . [facility] Comment on above: Order Comment: draw all labs at 0530 Performed By: #### B MP, CBC ####[address] Erythrocyte distribution width (RBC) [Ratio] 15.6 % High 12.0-14.8 [facility] Comment on above: Order Comment: draw all labs at 0530 Performed By: #### B MP, CBC ####[address] Hematocrit (Bld) [Volume fraction] 30.6 % Low 38.8-50.0 [facility] Comment on above: Order Comment: draw all labs at 0530 Performed By: #### B MP, CBC ####[address] Hemoglobin (Bld) [Mass/Vol] 10.3 g/dL Low 13.0-17.0 [facility] Comment on above: Order Comment: draw all labs at 0530 Performed By: #### B MP, CBC ####[address] Lymphocytes (Bld) [#/Vol] 1.1 10*3/uL Normal 1.00-4.8 [facility] Comment on above: Order Comment: draw all labs at 0530 Performed By: #### B MP, CBC ####[address] Lymphocytes/100 WBC (Bld) 4.9 % Normal . [facility] Comment on above: Order Comment: draw all labs at 0530 Performed By: #### B MP, CBC ####[address] MCH (RBC) [Entitic mass] 32.7 pg Normal 27.5-35.2 [facility] Comment on above: Order Comment: draw all labs at 0530 Performed By: #### B MP, CBC ####[address] MCV (RBC) [Entitic vol] 97.5 fL Normal 83.5-101 [facility] Comment on above: Order Comment: draw all labs at 0530 Performed By: #### B MP, CBC ####[address] Mean Corpuscular HGB Conc 33.5 g/dL Normal 32.5-35.6 [facility] Comment on above: Order Comment: draw all labs at 0530 Performed By: #### B MP, CBC ####[address] Monocytes (Bld) [#/Vol] 0.8 10*3/uL Normal 0.0-0.8 [facility] Comment on above: Order Comment: draw all labs at 0530 Performed By: #### B MP, CBC ####[address] Monocytes/100 WBC (Bld) 3.4 % Normal . [facility] Comment on above: Order Comment: draw all labs at 0530 Performed By: #### B MP, CBC ####[address] Neutrophils (Bld) [#/Vol] 20.6 10*3/uL High 1.8-7.7 [facility] Comment on above: Order Comment: draw all labs at 0530 Performed By: #### B MP, CBC ####[address] Neutrophils/100 WBC (Bld) 91.7 % Normal . [facility] Comment on above: Order Comment: draw all labs at 0530 Performed By: #### B MP, CBC ####[place] [id number] [facility] NRBC% 0.0 /100{WBC} Normal 0-0.5 [facility] Comment on above: Order Comment: draw all labs at 0530 Performed By: #### B MP, CBC ####[place] [id number] [facility] Platelet mean volume (Bld) [Entitic vol] 7.6 fL Normal 6.6-10.1 [facility] Comment on above: Order Comment: draw all labs at 0530 Performed By: #### B MP, CBC ####[address] [address] [facility] Platelets (Bld) [#/Vol] 306 10*3/uL Normal 150-450 [facility] Comment on above: Order Comment: draw all labs at 0530 Performed By: #### B MP, CBC ####[place] [id number] [facility] RBC (Bld) [#/Vol] 3.14 10*6/uL Low 3.90-5.60 [facility] Comment on above: Order Comment: draw all labs at 0530 Performed By: #### B MP, CBC ####[place] [id number] [facility] WBC (Bld) [#/Vol] 22.5 10*3/uL High 4.1-10.5 [facility] Comment on above: Order Comment: draw all labs at 0530 Performed By: #### B MP, CBC ####[place] [id number] [facility] Glucose Poct Glucometerson 0 1- Glucose [Mass/Vol] 253 mg/dL Normal [facility] Comment on above: Result Comment: [facility] Glucose Reference Range is dependent on time and content of last meal. Glucose of more than 200 mg/dL in a nonstressed, ambulatory subject supports the diagnosis of Diabetes Mellitus.PERFORMED BY:[address] [place], [place] [phone] MEDICAL DIRECTORFRANCHESCA MAGALLON M.D. Performed By: #### G LULS ####Point of Care testing, Glucose [Mass/Vol] 261 mg/dL Normal [facility] Comment on above: Result Comment: [employer] om Glucose Reference Range is dependent on time and content of last meal. Glucose of more than 200 mg/dL in a nonstressed, ambulatory subject supports the diagnosis of Diabetes Mellitus.PERFORMED BY:[address] [address] [address] [place], [place] [phone] MEDICAL DIRECTORFRANCHESCA MAGALLON M.D. Performed By: #### G LULS ####Point of Care testing, Commemt1 Glu2: Cleaned Meter Normal [facility] Comment on above: Result Comment: PERF ORMED BY:[address] [address] [address] [place], [place] [phone] MEDICAL DIRECTORFRANCHESCA MAGALLON M.D. Performed By: #### G LULS ####Point of Care testing, Glucose [Mass/Vol] 163 mg/dL Normal [facility] Comment on above: Result Comment: [employer] [facility] Glucose Reference Range is dependent on time and content of last meal. Glucose of more than 200 mg/dL in a nonstressed, ambulatory subject supports the diagnosis of Diabetes Mellitus. Performed By: #### G LULS ####Point of Care testing, Glucose [Mass/Vol] 130 mg/dL Normal [facility] Comment on above: Result Comment: [employer] om Glucose Reference Range is dependent on time and content of last meal. Glucose of more than 200 mg/dL in a nonstressed, ambulatory subject supports the diagnosis of Diabetes Mellitus.PERFORMED BY:[address] [address] [address] [place], [place] [phone] MEDICAL DIRECTORFRANCHESCA MAGALLON M.D. Performed By: #### G LULS ####Point of Care testing, Vancomycin [Mass/volume] in Serum or Plasma --peakOrdered By: Jimmy Matias on 05-18-2024 Vancomycin peak [Mass/Vol] Vancomycin [Mass/volume] in Serum or Plasma --peak High 20.0-40.0 [facility] Comment on above: Last dose: - Vancomycin [Mass/volume] in Serum or Plasma --troughOrdered By: Jimmy Matias on 05-18-2024 Vancomycin trough [Mass/Vol] Serum or plasma trough vancomycin level High 10.0-20.0 [facility] Comment on above: Last dose: - Vancomycin,Peakon 05-18-2024 Vancomycin,Peak 45.4 ug/mL High 20.0-40.0 [facility] Comment on above: Order Comment: Comme nt ?DRAW 1 HOUR AFTER INFUSION COMPLETES draw all labs at 0530 Date of last dose?: [id number] Time of last dose?: 0300 Result Comment: Last dose: -PERFORMED BY:[address] [place], [place] [phone] MEDICAL DIRECTORFRANCHESCA MAGALLON M.D. Performed By: #### V ANCP ####[address] [address] [facility] Vancomycin,Troughon 05-18-19 25 Vancomycin,Trough 22.7 ug/mL High 10.0-20.0 [facility] Comment on above: Result Comment: Last dose: -PERFORMED BY:[address] [place], [place] [phone] MEDICAL DIRECTORFRANCHESCA MAGALLON M.D. Performed By: #### V ANCT ####[place] [id number] [facility] X-ray reportOrdered By: Xander Solano on 05-18-2024 Study report [facility] Main [place] [address] [id number] XRay Report Signed Patient: Juan Simon MR#: [id number] : 1955 Acct:[id number] Age/Sex: 68 / M ADM Date: 4 Loc: Room: [address] [place] [address] Type: ADM IN Attending Dr: Shira Nath MD Copies to: MD Shira Sethomar, MD~ Ordering Provider: Jimmy Matias MD Date [...] Xander Solano M.D.05/18/2024 5:14 PM Dictation Location: [facility] Transcribed By: [facility] 05/18/241713 Dictated By: Xander Solano II, MD 05/18/241712 Signed By: 05/18/241713 [facility] Work Phone: XR chest 1V portableon 05-18 XR chest 1V portable Normal [facility] BioFire Not Detectedon 05-17 BioFire Not Detected Not detected Normal Not Detecte [facility] Comment on above: Result Comment: This is a duplicate RP2.1 COVID (PCR) result to be used for statistical tracking purpose only.PERFORMED BY:[facility] [place], [place] [phone] MEDICAL DIRECTORFRANCHESCA MAGALLON M.D. Performed By: #### B IOFIRECOVNOTDE, RESP PANEL UPP. ####[facility] [place] [address] [facility] COVID-19 Detected/Not Detect edOrdered By: Jimmy Matias on 05-17-2024 SARS-CoV-2 (COVID-19) RNA MARGARET+non-probe Ql (Nph) Not detected Not Detecte [facility] Comment on above: This is a duplicate RP2.1 COVID (PCR) result to be used for statistical tracking purpose only. Glucose Poct Glucometerson 0 05-17-2024 Glucose [Mass/Vol] 162 mg/dL Normal [facility] Comment on above: Result Comment: [employer] Glucose Reference Range is dependent on time and content of last meal. Glucose of more than 200 mg/dL in a nonstressed, ambulatory subject supports the diagnosis of Diabetes Mellitus.PERFORMED BY:[address] [place], [place] [phone] MEDICAL DIRECTORFRANCHESCA MAGALLON M.D. Performed By: #### G LULS ####Point of Care testing, Glucose [Mass/Vol] 249 mg/dL Normal [facility] Comment on above: Result Comment: [facility] Glucose Reference Range is dependent on time and content of last meal. Glucose of more than 200 mg/dL in a nonstressed, ambulatory subject supports the diagnosis of Diabetes Mellitus.PERFORMED BY:[address] [address] [address] [place], [place] [phone] MEDICAL TRESA MAGALLON M.D. Performed By: #### G LULS ####Point of Care testing, Glucose [Mass/Vol] 176 mg/dL Normal [facility] Comment on above: Result Comment: [facility] Glucose Reference Range is dependent on time and content of last meal. Glucose of more than 200 mg/dL in a nonstressed, ambulatory subject supports the diagnosis of Diabetes Mellitus.PERFORMED BY:[address] [address] [address] [place], [place] [phone] NORMA DIRECTORFRANCHESCA MAGALLON M.D. Performed By: #### G LULS ####Point of Care testing, Glucose [Mass/Vol] 125 mg/dL Normal [facility] Comment on above: Result Comment: [facility] Glucose Reference Range is dependent on time and content of last meal. Glucose of more than 200 mg/dL in a nonstressed, ambulatory subject supports the diagnosis of Diabetes Mellitus.PERFORMED BY:[address] [address] [address] [place] [phone] MEDICAL DIRECTORFRANCHESCA MAGALLON M.D. Performed By: #### G CHATO ####Point of Care testing, Respiratory (Upper) Panel, P CRon 05-17-2024 Respiratory (Upper) Panel, PCR Normal [facility] Comment on above: Performed By: #### B IOFIRECOVNOTDE, RESP PANEL UPP. ####[place] [id number] [facility] Respiratory pathogens DNA an d RNA panel - Nasopharynx by MARGARET with non-probe detectionOrdered By: Jimmy Matias on 05-17-2024 Respiratory pathogens DNA and RNA panel MARGARET+non-probe (Nph) Respiratory pathogens DNA and RNA panel - Nasopharynx by MARGARET with non-probe detection [facility] Complete Blood Count Auto Di ffon 05-16-2024 Basophils (Bld) [#/Vol] 0.0 10*3/uL Normal 0.0-0.2 [facility] Comment on above: Result Comment: PERF ORMED BY:[address] [address] [address] [place], [place] [phone] MEDICAL DIRECTORFRANCHESCA MAGALLON M.D. Performed By: #### C TERRELL, CMP ####[address] Basophils/100 WBC (Bld) 0.1 % Normal . T jeniffer [facility] Comment on above: Performed By: #### C BC, CMP ####[place] [id number] [facility] Eosinophils (Bld) [#/Vol] 0.0 10*3/uL Normal 0.0-0.45 [facility] Comment on above: Performed By: #### C BC, CMP ####[place] [id number] [facility] Eosinophils/100 WBC (Bld) 0.0 % Normal . [facility] Comment on above: Performed By: #### C BC, CMP ####[address] [place] [address] [place] Erythrocyte distribution width (RBC) [Ratio] 15.1 % High 12.0-14.8 [facility] Comment on above: Performed By: #### C BC, CMP ####[address] Hematocrit (Bld) [Volume fraction] 32.8 % Low 38.8-50.0 [facility] Comment on above: Performed By: #### C BC, CMP ####[address] Hemoglobin (Bld) [Mass/Vol] 10.9 g/dL Low 13.0-17.0 [facility] Comment on above: Performed By: #### C BC, CMP ####[address] Lymphocytes (Bld) [#/Vol] 0.8 10*3/uL Low 1.00-4.8 [facility] Comment on above: Performed By: #### C BC, CMP ####[address] Lymphocytes/100 WBC (Bld) 5.0 % Normal . [facility] Comment on above: Performed By: #### C TERRELL, CMP ####[address] MCH (RBC) [Entitic mass] 32.1 pg Normal 27.5-35.2 [facility] Comment on above: Performed By: #### C BC, CMP ####[address] MCV (RBC) [Entitic vol] 96.3 fL Normal 83.5-101 T [facility] Comment on above: Performed By: #### C BC, CMP ####[address] Mean Corpuscular HGB Conc 33.3 g/dL Normal 32.5-35.6 [facility] Comment on above: Performed By: #### C BC, CMP ####[address] [place] [address] [facility] Monocytes (Bld) [#/Vol] 0.6 10*3/uL Normal 0.0-0.8 [facility] Comment on above: Performed By: #### C BC, CMP ####[place] [id number] [facility] Monocytes/100 WBC (Bld) 3.9 % Normal . T jeniffer [facility] Comment on above: Performed By: #### C BC, CMP ####[address] Neutrophils (Bld) [#/Vol] 15.1 10*3/uL High 1.8-7.7 [facility] Comment on above: Performed By: #### C TERRELL, CMP ####[address] Neutrophils/100 WBC (Bld) 91.0 % Normal . [facility] Comment on above: Performed By: #### C TERRELL, CMP ####[address] NRBC% 0.1 /100{WBC} Normal 0-0.5 [facility] Comment on above: Performed By: #### C TERRELL, CMP ####[address] Platelet mean volume (Bld) [Entitic vol] 7.3 fL Normal 6.6-10.1 [facility] Comment on above: Performed By: #### C BC, CMP ####[address] Platelets (Bld) [#/Vol] 415 10*3/uL Normal 150-450 [facility] Comment on above: Performed By: #### C BC, CMP ####[place] [id number] [facility] RBC (Bld) [#/Vol] 3.40 10*6/uL Low 3.90-5.60 [facility] Comment on above: Performed By: #### C BC, CMP ####[address] [address] [facility] WBC (Bld) [#/Vol] 16.6 10*3/uL High 4.1-10.5 [facility] Comment on above: Performed By: #### C BC, CMP ####[address] [address] [facility] Comprehensive Metabolic Pane raudel 05-16-2024 Albumin [Mass/Vol] 3.0 g/dL Low 3.5-5.7 [facility] Comment on above: Performed By: #### C BC, CMP ####[address] [address] [facility] Albumin/Globulin [Mass ratio] 1.1 {ratio} Normal [facility] Comment on above: Performed By: #### C BC, CMP ####[place] [id number] [facility] ALP [Catalytic activity/Vol] 54 U/L Normal 34-104 [facility] Comment on above: Performed By: #### C BC, CMP ####[place] [id number] [facility] ALT [Catalytic activity/Vol] 25 U/L Normal 7-52 [facility] Comment on above: Performed By: #### C BC, CMP ####[place] [id number] [facility] Anion gap [Moles/Vol] 15.8 mmol/L High 6.0-15.0 [facility] Comment on above: Performed By: #### C BC, CMP ####[place] [id number] [facility] AST [Catalytic activity/Vol] 17 U/L Normal 13-39 [facility] Comment on above: Performed By: #### C BC, CMP ####[place] [id number] [facility] Bilirubin [Mass/Vol] 1.1 mg/dL High 0.3-1.0 [facility] Comment on above: Performed By: #### C BC, CMP ####[place] [id number] [facility] Calcium [Mass/Vol] 8.5 mg/dL Low 8.6-10.3 [facility] Comment on above: Performed By: #### C BC, CMP ####[address] Chloride [Moles/Vol] 93 mmol/L Low 98-107 [facility] Comment on above: Performed By: #### C BC, CMP ####[address] CO2 [Moles/Vol] 36.9 mmol/L High 21.0-31.0 [facility] Comment on above: Performed By: #### C BC, CMP ####[address] Creatinine [Mass/Vol] 0.90 mg/dL Normal 0.70-1.30 [facility] Comment on above: Performed By: #### C BC, CMP ####[address] Creatinine Clr Calc Pharmacy 83.41 Normal [facility] Comment on above: Result Comment: PERF ORMED BY:[address] [place], [place] [phone] MEDICAL DIRECTORFRANCHESCA MAGALLON M.D. Performed By: #### C BC, CMP ####[place] [id number] [facility] GFR/1.73 sq M.predicted MDRD (S/P/Bld) [Vol rate/Area] mL/min/{1.73_m2} Normal [facility] Comment on above: Performed By: #### C BC, CMP ####[place] [id number] [facility] Globulin (S) [Mass/Vol] 2.7 g/dL Normal T [facility] Comment on above: Performed By: #### C BC, CMP ####[address] Glucose [Mass/Vol] 126 mg/dL High 70-100 [facility] Comment on above: Result Comment: [facility] Glucose Reference Range is dependent on time and content of last meal. Glucose of more than 200 mg/dL in a nonstressed, ambulatory subject supports the diagnosis of Diabetes Mellitus. ADA recommended reference range Performed By: #### C BC, CMP ####[place] [address] [place] [address] [place] Potassium [Moles/Vol] 3.7 mmol/L Normal 3.5-5.1 [facility] Comment on above: Performed By: #### C BC, CMP ####[address] [address] [facility] Protein [Mass/Vol] 5.7 g/dL Low 6.4-8.9 [facility] Comment on above: Performed By: #### C BC, CMP ####[address] [address] [facility] Sodium [Moles/Vol] 142 mmol/L Normal 136-145 [facility] Comment on above: Performed By: #### C BC, CMP ####[address] [address] [place] Urea nitrogen [Mass/Vol] 32 mg/dL High 7-25 [facility] Comment on above: Performed By: #### C BC, CMP ####[address] [address] [facility] Glucose Poct Glucometerson 0 - Glucose [Mass/Vol] 173 mg/dL Normal [facility] Comment on above: Result Comment: [facility] Glucose Reference Range is dependent on time and content of last meal. Glucose of more than 200 mg/dL in a nonstressed, ambulatory subject supports the diagnosis of Diabetes Mellitus.PERFORMED BY:[address] [place], [place] [phone] MEDICAL DIRECTORFRANCHESCA MAGALLON M.D. Performed By: #### G LULS ####Point of Care testing, Glucose [Mass/Vol] 203 mg/dL Normal [facility] Comment on above: Result Comment: [employer] om Glucose Reference Range is dependent on time and content of last meal. Glucose of more than 200 mg/dL in a nonstressed, ambulatory subject supports the diagnosis of Diabetes Mellitus.PERFORMED BY:[address] [place], [place] [phone] MEDICAL DIRECTORFRANCHESCA MAGALLON M.D. Performed By: #### G LULS ####Point of Care testing, Glucose [Mass/Vol] 164 mg/dL Normal [facility] Comment on above: Result Comment: [employer] Glucose Reference Range is dependent on time and content of last meal. Glucose of more than 200 mg/dL in a nonstressed, ambulatory subject supports the diagnosis of Diabetes Mellitus.PERFORMED BY:[address] [place], [place] [phone] MEDICAL DIRECTORFRANCHESCA MAGALLON M.D. Performed By: #### G LULS ####Point of Care testing, Glucose [Mass/Vol] 129 mg/dL Normal [facility] Comment on above: Result Comment: [employer] Glucose Reference Range is dependent on time and content of last meal. Glucose of more than 200 mg/dL in a nonstressed, ambulatory subject supports the diagnosis of Diabetes Mellitus.PERFORMED BY:[address] [place], [place] [phone] MEDICAL DIRECTORFRANCHESCA MAGALLON M.D. Performed By: #### G LULS ####Point of Care testing, MRSA Cultureon 05-16-2024 MRSA Culture MRSA Culture Results No MRSA Isolated 2 Days PERFORMED BY: [facility] [address] [facility] [place] [address] PATHOLOGIST [employer] FRANCHESCA MAGALLON M.D. Normal [facility] Comment on above: Performed By: #### C UMRSA ####[address] [address] [place] Wound methicillin resistant Staphylococcus aureus (MRSA) cultureOrdered By: Jimmy Matias on 05-16-2024 MRSA isol Org specific cx Ql (Unsp spec) Wound methicillin resistant Staphylococcus aureus (MRSA) culture [facility] Comprehensive Metabolic Pane raudel 05-15-2024 Albumin [Mass/Vol] 3.0 g/dL Low 3.5-5.7 [facility] Comment on above: Performed By: #### C MP ####[place] [id number] [facility] Albumin/Globulin [Mass ratio] 1.1 {ratio} Normal [facility] Comment on above: Performed By: #### C MP ####[place] [id number] [facility] ALP [Catalytic activity/Vol] 56 U/L Normal 34-104 [facility] Comment on above: Performed By: #### C MP ####[place] [id number] [facility] ALT [Catalytic activity/Vol] 26 U/L Normal 7-52 [facility] Comment on above: Performed By: #### C MP ####[place] [id number] [facility] Anion gap [Moles/Vol] 12.8 mmol/L Normal 6.0-15.0 [facility] Comment on above: Performed By: #### C MP ####[place] [id number] [facility] AST [Catalytic activity/Vol] 19 U/L Normal 13-39 [facility] Comment on above: Performed By: #### C MP ####[place] [id number] [facility] Bilirubin [Mass/Vol] 0.8 mg/dL Normal 0.3-1.0 [facility] Comment on above: Performed By: #### C MP ####[place] [id number] [facility] Calcium [Mass/Vol] 8.7 mg/dL Normal 8.6-10.3 [facility] Comment on above: Performed By: #### C MP ####[place] [id number] [facility] Chloride [Moles/Vol] 94 mmol/L Low 98-107 [facility] Comment on above: Performed By: #### C MP ####[place] [id number] [facility] CO2 [Moles/Vol] 35.1 mmol/L High 21.0-31.0 [facility] Comment on above: Performed By: #### C MP ####[place] [id number] [facility] Creatinine [Mass/Vol] 1.01 mg/dL Normal 0.70-1.30 [facility] Comment on above: Performed By: #### C MP ####[place] [id number] [facility] Creatinine Clr Calc Pharmacy 74.93 Normal [facility] Comment on above: Result Comment: PERF ORMED BY:[address] [place], [place] [phone] MEDICAL DIRECTORFRANCHESCA MAGALLON M.D. Performed By: #### C MP ####[place] [id number] [facility] GFR/1.73 sq M.predicted MDRD (S/P/Bld) [Vol rate/Area] mL/min/{1.73_m2} Normal [facility] Comment on above: Performed By: #### C MP ####[place] [id number] [facility] Globulin (S) [Mass/Vol] 2.7 g/dL Normal T [facility] Comment on above: Performed By: #### C MP ####[place] [id number] [facility] Glucose [Mass/Vol] 142 mg/dL High 70-100 [facility] Comment on above: Result Comment: [employer] Glucose Reference Range is dependent on time and content of last meal. Glucose of more than 200 mg/dL in a nonstressed, ambulatory subject supports the diagnosis of Diabetes Mellitus. ADA recommended reference range Performed By: #### C MP ####[place] [id number] [facility] Potassium [Moles/Vol] 3.9 mmol/L Normal 3.5-5.1 [facility] Comment on above: Performed By: #### C MP ####[place] [id number] [facility] Protein [Mass/Vol] 5.7 g/dL Low 6.4-8.9 [facility] Comment on above: Performed By: #### C MP ####[address] Sodium [Moles/Vol] 138 mmol/L Normal 136-145 [facility] Comment on above: Performed By: #### C MP ####[address] Urea nitrogen [Mass/Vol] 33 mg/dL High 7-25 [facility] Comment on above: Performed By: #### C MP ####[place] [id number] [facility] Glucose Poct Glucometerson 0 05-15-2024 Glucose [Mass/Vol] 204 mg/dL Normal [facility] Comment on above: Result Comment: [employer] om Glucose Reference Range is dependent on time and content of last meal. Glucose of more than 200 mg/dL in a nonstressed, ambulatory subject supports the diagnosis of Diabetes Mellitus.PERFORMED BY:[place] [address] [address] [place], [place] [phone] MEDICAL DIRECTORFRANCHESCA MAGALLON M.D. Performed By: #### G CHATO ####Point of Care testing, Commemt1 Glu2: Cleaned Meter Normal [facility] Comment on above: Result Comment: PERF ORMED BY:[place] [address] [address] [place]RENATALIECLY[place], [place] [phone] MEDICAL DIRECTORFRANCHESCA MAGALLON M.D. Performed By: #### G LULS ####Point of Care testing, Glucose [Mass/Vol] 181 mg/dL Normal [facility] Comment on above: Result Comment: [employer] om Glucose Reference Range is dependent on time and content of last meal. Glucose of more than 200 mg/dL in a nonstressed, ambulatory subject supports the diagnosis of Diabetes Mellitus. Performed By: #### G LULS ####Point of Care testing, Glucose [Mass/Vol] 134 mg/dL Normal [facility] Comment on above: Result Comment: [employer] Glucose Reference Range is dependent on time and content of last meal. Glucose of more than 200 mg/dL in a nonstressed, ambulatory subject supports the diagnosis of Diabetes Mellitus.PERFORMED BY:[place] [address] [address] [place], [place] [phone] MEDICAL DIRECTORFRANCHESCA MAGALLON M.D. Performed By: #### G LULS ####Point of Care testing, Commemt1 Glu2: Cleaned Meter Normal [facility] Comment on above: Result Comment: PERF ORMED BY:[address] [place]SM[place], [place] [phone] MEDICAL DIRECTORFRANCHESCA MAGALLON M.D. Performed By: #### G LULS ####Point of Care testing, Glucose [Mass/Vol] 130 mg/dL Normal [facility] Comment on above: Result Comment: [employer] Glucose Reference Range is dependent on time and content of last meal. Glucose of more than 200 mg/dL in a nonstressed, ambulatory subject supports the diagnosis of Diabetes Mellitus. Performed By: #### G LULS ####Point of Care testing, Commemt1 Glu2: Cleaned Meter Normal [facility] Comment on above: Performed By: #### G LULS ####Point of Care testing, Commemt2 SLIDING SCALE COVERA Normal [facility] Comment on above: Result Comment: PERF ORMED BY:[address] [place], [place] [phone] MEDICAL DIRECTORFRANCHESCA MAGALLON M.D. Performed By: #### G LULS ####Point of Care testing, Glucose [Mass/Vol] 283 mg/dL Normal [facility] Comment on above: Result Comment: [employer] Glucose Reference Range is dependent on time and content of last meal. Glucose of more than 200 mg/dL in a nonstressed, ambulatory subject supports the diagnosis of Diabetes Mellitus. Performed By: #### G LULS ####Point of Care testing, No Panel InformationOrdered By: Hilda Ruiz on 05-15-2024 Bedside Glucose #2 Comment Sliding scale covera [facility] X-ray reportOrdered By: Xander Solano on 05-15-2024 Study report [facility] [place] [address] XRay Report Signed Patient: Juan Simon MR#: [id number] : 1955 Acct:[id number] Age/Sex: 68 / M ADM Date: 4 Loc: Room: [address] [place] [address] Type: ADM IN Attending Dr: Hilda Ruiz [...] Xander Solano M.D.05/15/2024 8:50 AM Dictation Location[facility] Transcribed By: MERCEDES 05/15/24 0850 Dictated By: Xander Solano II, MD 05/15/24 0848 Signed By: 05/15/24 0850 [facility] Work Phone: XR chest 1V portableon 05-15 XR chest 1V portable Normal [facility] Aerobic Cultureon 05-14-2024 Aerobic Culture Normal [facility] Comment on above: Performed By: #### A LAURA, ####[place] [id number] [facility] Bacteria identified Aer cx N om (Unsp spec)Ordered By: Skyler Sanchez on 05-14-2024 Aerobic Culture Abnormal [facility] Comprehensive Metabolic Pane raudel 05-14-2024 Albumin [Mass/Vol] 3.0 g/dL Low 3.5-5.7 [facility] Comment on above: Performed By: #### C MP ####[place] [id number] [facility] Albumin/Globulin [Mass ratio] 1.0 {ratio} Normal [facility] Comment on above: Performed By: #### C MP ####[place] [id number] [facility] ALP [Catalytic activity/Vol] 64 U/L Normal 34-104 [facility] Comment on above: Performed By: #### C MP ####[place] [id number] [facility] ALT [Catalytic activity/Vol] 23 U/L Normal 7-52 [facility] Comment on above: Performed By: #### C MP ####[place] [id number] [facility] Anion gap [Moles/Vol] 10.8 mmol/L Normal 6.0-15.0 [facility] Comment on above: Performed By: #### C MP ####[place] [id number] [facility] AST [Catalytic activity/Vol] 21 U/L Normal 13-39 [facility] Comment on above: Performed By: #### C MP ####[place] [id number] [facility] Bilirubin [Mass/Vol] 0.9 mg/dL Normal 0.3-1.0 [facility] Comment on above: Performed By: #### C MP ####[place] [id number] [facility] Calcium [Mass/Vol] 8.8 mg/dL Normal 8.6-10.3 [facility] Comment on above: Performed By: #### C MP ####[place] [id number] [facility] Chloride [Moles/Vol] 95 mmol/L Low 98-107 [facility] Comment on above: Performed By: #### C MP ####[place] [id number] [facility] CO2 [Moles/Vol] 36.9 mmol/L High 21.0-31.0 [facility] Comment on above: Performed By: #### C MP ####[place] [id number] [facility] Creatinine [Mass/Vol] 0.99 mg/dL Normal 0.70-1.30 [facility] Comment on above: Performed By: #### C MP ####[address] Creatinine Clr Calc Pharmacy 75.29 Normal [facility] Comment on above: Result Comment: PERF ORMED BY:[address] [place], [place] [phone] MEDICAL DIRECTORFRANCHESCA MAGALLON M.D. Performed By: #### C MP ####[place] [id number] [facility] GFR/1.73 sq M.predicted MDRD (S/P/Bld) [Vol rate/Area] mL/min/{1.73_m2} Normal [facility] Comment on above: Performed By: #### C MP ####[place] [id number] [facility] Globulin (S) [Mass/Vol] 3.0 g/dL Normal [facility] Comment on above: Performed By: #### C MP ####[place] [id number] [facility] Glucose [Mass/Vol] 159 mg/dL High 70-100 [facility] Comment on above: Result Comment: [employer] Glucose Reference Range is dependent on time and content of last meal. Glucose of more than 200 mg/dL in a nonstressed, ambulatory subject supports the diagnosis of Diabetes Mellitus. ADA recommended reference range Performed By: #### C MP ####[address] Potassium [Moles/Vol] 3.7 mmol/L Normal 3.5-5.1 [facility] Comment on above: Performed By: #### C MP ####[address] Protein [Mass/Vol] 6.0 g/dL Low 6.4-8.9 [facility] Comment on above: Performed By: #### C MP ####[address] Sodium [Moles/Vol] 139 mmol/L Normal 136-145 [facility] Comment on above: Performed By: #### C MP ####[address] Urea nitrogen [Mass/Vol] 30 mg/dL High 7-25 [facility] Comment on above: Performed By: #### C MP ####[address] ECG 12 lead ECGon 05-14-2024 ECG 12 lead ECG Normal [facility] Glucose Poct Glucometerson 0 05-14-2024 Glucose [Mass/Vol] 160 mg/dL Normal [facility] Comment on above: Result Comment: [facility] Glucose Reference Range is dependent on time and content of last meal. Glucose of more than 200 mg/dL in a nonstressed, ambulatory subject supports the diagnosis of Diabetes Mellitus.PERFORMED BY:[address] [address] [place] [place], [place] [phone] MEDICAL TRESA MAGALLON M.D. Performed By: #### G CHATO ####Point of Care testing, Commemt1 Glu2: Cleaned Meter Normal [facility] Comment on above: Result Comment: PERF ORMED BY:[place] [address] [address] [place] [phone] MEDICAL DIRECTORFRANCHESCA MAGALLON M.D. Performed By: #### G LULS ####Point of Care testing, Glucose [Mass/Vol] 153 mg/dL Normal [facility] Comment on above: Result Comment: [employer] om Glucose Reference Range is dependent on time and content of last meal. Glucose of more than 200 mg/dL in a nonstressed, ambulatory subject supports the diagnosis of Diabetes Mellitus. Performed By: #### G LULS ####Point of Care testing, Commemt1 Glu2: Cleaned Meter Normal [facility] Comment on above: Result Comment: PERF ORMED BY:[facility] [place], [place] [phone] MEDICAL DIRECTORFRANCHESCA MAGALLON M.D. Performed By: #### G LULS ####Point of Care testing, Glucose [Mass/Vol] 136 mg/dL Normal [facility] Comment on above: Result Comment: [employer] om Glucose Reference Range is dependent on [...] Blood Cells Rare Epithelial Cells PERFORMED BY: [facility] [address] [facility] [place] [address] PATHOLOGIST [employer] FRANCHESCA MAGALLON M.D. Normal [facility] Comment on above: Performed By: #### A ERC, GS ####[facility] [place] [address] [facility] Gram stain microscopyOrdered By: Skyler Sanchez on 05-14-2024 Microscopic observation Gram stain Nom (Unsp spec) Gram stain microscopy [facility] Hemogram CBC Without Diffon 05-14-2024 Erythrocyte distribution width (RBC) [Ratio] 14.8 % Normal 12.0-14.8 [facility] Comment on above: Performed By: #### C BCNO ####[address] [address] [facility] Hematocrit (Bld) [Volume fraction] 35.1 % Low 38.8-50.0 [facility] Comment on above: Performed By: #### C BCNO ####[address] [address] [facility] Hemoglobin (Bld) [Mass/Vol] 11.7 g/dL Low 13.0-17.0 [facility] Comment on above: Performed By: #### C BCNO ####[address] [address] [facility] MCH (RBC) [Entitic mass] 32.1 pg Normal 27.5-35.2 [facility] Comment on above: Performed By: #### C BCNO ####[place] [id number] [facility] MCV (RBC) [Entitic vol] 96.6 fL Normal 83.5-101 [facility] Comment on above: Performed By: #### C BCNO ####[place] [id number] [facility] Mean Corpuscular HGB Conc 33.2 g/dL Normal 32.5-35.6 [facility] Comment on above: Performed By: #### C BCNO ####[address] [address] [facility] Platelet mean volume (Bld) [Entitic vol] 7.0 fL Normal 6.6-10.1 [facility] Comment on above: Result Comment: PERF ORMED BY:[address] [place], [place] [phone] MEDICAL DIRECTORFRANCHESCA MAGALLON M.D. Performed By: #### C BCNO ####[address] [address] [facility] Platelets (Bld) [#/Vol] 516 10*3/uL High 150-450 [facility] Comment on above: Performed By: #### C BCNO ####[place] [address] [place] [id number] [facility] RBC (Bld) [#/Vol] 3.64 10*6/uL Low 3.90-5.60 [facility] Comment on above: Performed By: #### C BCNO ####[place] [address] [place] [id number] [facility] WBC (Bld) [#/Vol] 16.3 10*3/uL High 4.1-10.5 [facility] Comment on above: Performed By: #### C BCNO ####[place] [address] [place] [id number] [facility] X-ray reportOrdered By: Xander Solano on 05-14-2024 Study report [facility] Main [place] [address] [place] [address] XRay Report Signed Patient: Juan Simon MR#: [id number] : 1955 Acct:[id number] Age/Sex: 68 / M ADM Date: 4 Loc: Room: [address] [place] [address] Type: ADM IN Attending Dr: Hilda Ruiz [...] Xander Solano M.D.05/14/2024 8:19 AM Dictation Location: [place] [address] Transcribed By: [facility] 05/14/24818 Dictated By: Xander Solano II, MD 05/14/24816 Signed By: 05/14/24818 [facility] Work Phone: XR chest 1V portableon 05-14 XR chest 1V portable Normal [facility] Arterial Blood Gason 025 ABG Base Excess 8.5 mmol/L High -3.0-3.0 [facility] Comment on above: Performed By: #### A BG ####Point of Care testing, ABG Frac Inspired O2 85 % Normal [facility] Comment on above: Performed By: #### A BG ####Point of Care testing, ABG Oxygen Content 7.0 mmol/L Normal 6.6-9.7 [facility] Comment on above: Performed By: #### A BG ####Point of Care testing, ABG Oxygen Saturation 96.2 % Normal 95.0-100.0 [facility] Comment on above: Performed By: #### A BG ####Point of Care testing, ABG PCO2 47.5 mm[Hg] High 35.0-45.0 [facility] Comment on above: Performed By: #### A BG ####Point of Care testing, ABG PH 7.47 High 7.35-7.45 [facility] Comment on above: Performed By: #### A BG ####Point of Care testing, ABG PO2 86.4 mm[Hg] Normal 80.0-100.0 [facility] Comment on above: Performed By: #### A BG ####Point of Care testing, Oxygen Device High Flow Normal [facility] Comment on above: Performed By: #### A BG ####Point of Care testing, Respiratory Critical Normal [facility] Comment on above: Result Comment: Crit ical Value called on: 05/13/2024 at 05:43PERFORMED BY:[facility] [place], [place] [phone] MEDICAL DIRECTORFRANCHESCA MAGALLON M.D. Performed By: #### A BG ####Point of Care testing, VBG Draw Site Right Radial Normal [facility] Comment on above: Performed By: #### A BG ####Point of Care testing, Arterial Blood GasOrdered By : Hilda Ruiz on 05-13-2024 CO2 [Moles/Vol] 34.9 mmol/L High 23.0-27.0 [facility] Comment on above: Performed By: #### A BG ####Point of Care testing, HCO3 (Bld) [Moles/Vol] 33.4 mmol/L High 23.0-29.0 [facility] Comment on above: Performed By: #### A BG ####Point of Care testing, CT head/brain wo conon 05-13 CT head/brain wo con Normal [facility] Complete Blood Count Auto Di ffon 05-13-2024 Basophils (Bld) [#/Vol] 0.0 10*3/uL Normal 0.0-0.2 [facility] Comment on above: Order Comment: PER R N ELLIOT WILL CALL WHEN PT IS CALM DOWN. Result Comment: PERF ORMED BY:[address] [place], [place] [phone] MEDICAL DIRECTORFRANCHESCA MAGALLON M.D. Performed By: #### C MP, MG, CBC ####[address] Basophils/100 WBC (Bld) 0.1 % Normal . [facility] Comment on above: Order Comment: PER R N ELLIOT WILL CALL WHEN PT IS CALM DOWN. Performed By: #### C MP, MG, CBC ####[address] Eosinophils (Bld) [#/Vol] 0.0 10*3/uL Normal 0.0-0.45 [facility] Comment on above: Order Comment: PER R N ELLIOT WILL CALL WHEN PT IS CALM DOWN. Performed By: #### C MP, MG, CBC ####[address] Performed By: #### S CAN CBC, PRL, LACTIC, MG, CMP ####[address] Eosinophils/100 WBC (Bld) 0.0 % Normal . [facility] Comment on above: Order Comment: PER R N ELLIOT WILL CALL WHEN PT IS CALM DOWN. Performed By: #### C MP, MG, CBC ####[address] Performed By: #### S CAN CBC, PRL, LACTIC, MG, CMP ####[address] Erythrocyte distribution width (RBC) [Ratio] 15.0 % High 12.0-14.8 [facility] Comment on above: Order Comment: PER R N ELLIOT WILL CALL WHEN PT IS CALM DOWN. Performed By: #### C MP, MG, CBC ####[address] Hematocrit (Bld) [Volume fraction] 33.6 % Low 38.8-50.0 [facility] Comment on above: Order Comment: PER R N ELLIOT WILL CALL WHEN PT IS CALM DOWN. Performed By: #### C MP, MG, CBC ####[address] Hemoglobin (Bld) [Mass/Vol] 11.5 g/dL Low 13.0-17.0 [facility] Comment on above: Order Comment: PER R N ELLIOT WILL CALL WHEN PT IS CALM DOWN. Performed By: #### C MP, MG, CBC ####[address] Lymphocytes (Bld) [#/Vol] 1.4 10*3/uL Normal 1.00-4.8 [facility] Comment on above: Order Comment: PER R N ELLIOT WILL CALL WHEN PT IS CALM DOWN. Performed By: #### C MP, MG, CBC ####[address] Lymphocytes/100 WBC (Bld) 9.2 % Normal . [facility] Comment on above: Order Comment: PER R N ELLIOT WILL CALL WHEN PT IS CALM DOWN. Performed By: #### C MP, MG, CBC ####[address] MCH (RBC) [Entitic mass] 32.4 pg Normal 27.5-35.2 [facility] Comment on above: Order Comment: PER R N ELLIOT WILL CALL WHEN PT IS CALM DOWN. Performed By: #### C MP, MG, CBC ####[address] MCV (RBC) [Entitic vol] 94.6 fL Normal 83.5-101 [facility] Comment on above: Order Comment: PER R N ELLIOT WILL CALL WHEN PT IS CALM DOWN. Performed By: #### C MP, MG, CBC ####[address] Mean Corpuscular HGB Conc 34.3 g/dL Normal 32.5-35.6 [facility] Comment on above: Order Comment: PER R N ELLIOT WILL CALL WHEN PT IS CALM DOWN. Performed By: #### C MP, MG, CBC ####[address] Monocytes (Bld) [#/Vol] 0.5 10*3/uL Normal 0.0-0.8 [facility] Comment on above: Order Comment: PER R N ELLIOT WILL CALL WHEN PT IS CALM DOWN. Performed By: #### C MP, MG, CBC ####[address] Monocytes/100 WBC (Bld) 3.2 % Normal . [facility] Comment on above: Order Comment: PER R N ELLIOT WILL CALL WHEN PT IS CALM DOWN. Performed By: #### C MP, MG, CBC ####[address] Neutrophils (Bld) [#/Vol] 13.6 10*3/uL High 1.8-7.7 [facility] Comment on above: Order Comment: PER R N ELLIOT WILL CALL WHEN PT IS CALM DOWN. Performed By: #### C MP, MG, CBC ####[address] Neutrophils/100 WBC (Bld) 87.5 % Normal . [facility] Comment on above: Order Comment: PER R N ELLIOT WILL CALL WHEN PT IS CALM DOWN. Performed By: #### C MP, MG, CBC ####[address] NRBC% 0.1 /100{WBC} Normal 0-0.5 [facility] Comment on above: Order Comment: PER R N ELLIOT WILL CALL WHEN PT IS CALM DOWN. Performed By: #### C MP, MG, CBC ####[address] Platelet mean volume (Bld) [Entitic vol] 6.7 fL Normal 6.6-10.1 [facility] Comment on above: Order Comment: PER R N ELLIOT WILL CALL WHEN PT IS CALM DOWN. Performed By: #### C MP, MG, CBC ####[address] Platelets (Bld) [#/Vol] 505 10*3/uL High 150-450 [facility] Comment on above: Order Comment: PER R N ELLIOT WILL CALL WHEN PT IS CALM DOWN. Performed By: #### C MP, MG, CBC ####[address] RBC (Bld) [#/Vol] 3.56 10*6/uL Low 3.90-5.60 [facility] Comment on above: Order Comment: PER R N ELLIOT WILL CALL WHEN PT IS CALM DOWN. Performed By: #### C MP, MG, CBC ####[address] WBC (Bld) [#/Vol] 15.6 10*3/uL High 4.1-10.5 [facility] Comment on above: Order Comment: PER R N ELLIOT WILL CALL WHEN PT IS CALM DOWN. Performed By: #### C MP, MG, CBC ####[address] Comprehensive Metabolic Pane raudel 05-13-2024 Albumin [Mass/Vol] 2.9 g/dL Low 3.5-5.7 [facility] Comment on above: Order Comment: PER R N ELLIOT WILL CALL WHEN PT IS CALM DOWN. Performed By: #### C MP, MG, CBC ####[address] Performed By: #### S CAN CBC, PRL, LACTIC, MG, CMP ####[address] Albumin/Globulin [Mass ratio] 0.9 {ratio} Normal [facility] Comment on above: Order Comment: PER R N ELLIOT WILL CALL WHEN PT IS CALM DOWN. Performed By: #### C MP, MG, CBC ####[address] Albumin/Globulin [Mass ratio] 1.0 {ratio} Normal [facility] Comment on above: Order Comment: PER R N ELLIOT WILL CALL WHEN PT IS CALM DOWN. Performed By: #### S CAN CBC, PRL, LACTIC, MG, CMP ####[address] ALP [Catalytic activity/Vol] 66 U/L Normal 34-104 [facility] Comment on above: Order Comment: PER R N ELLIOT WILL CALL WHEN PT IS CALM DOWN. Performed By: #### C MP, MG, CBC ####[address] Performed By: #### S CAN CBC, PRL, LACTIC, MG, CMP ####[address] ALT [Catalytic activity/Vol] 20 U/L Normal 7-52 [facility] Comment on above: Order Comment: PER R N ELLIOT WILL CALL WHEN PT IS CALM DOWN. Performed By: #### C MP, MG, CBC ####[place] [id number] [facility] ALT [Catalytic activity/Vol] 19 U/L Normal 7-52 [facility] Comment on above: Order Comment: PER R N ELLIOT WILL CALL WHEN PT IS CALM DOWN. Performed By: #### S CAN CBC, PRL, LACTIC, MG, CMP ####[address] Anion gap [Moles/Vol] 10.7 mmol/L Normal 6.0-15.0 [facility] Comment on above: Order Comment: PER R N ELLIOT WILL CALL WHEN PT IS CALM DOWN. Performed By: #### C MP, MG, CBC ####[address] Anion gap [Moles/Vol] 12.0 mmol/L Normal 6.0-15.0 [facility] Comment on above: Order Comment: PER R N ELLIOT WILL CALL WHEN PT IS CALM DOWN. Performed By: #### S CAN CBC, PRL, LACTIC, MG, CMP ####[address] AST [Catalytic activity/Vol] 16 U/L Normal 13-39 [facility] Comment on above: Order Comment: PER R N ELLIOT WILL CALL WHEN PT IS CALM DOWN. Performed By: #### C MP, MG, CBC ####[address] Performed By: #### S CAN CBC, PRL, LACTIC, MG, CMP ####[address] Bilirubin [Mass/Vol] 0.7 mg/dL Normal 0.3-1.0 [facility] Comment on above: Order Comment: PER R N ELLIOT WILL CALL WHEN PT IS CALM DOWN. Performed By: #### C MP, MG, CBC ####[address] Performed By: #### S CAN CBC, PRL, LACTIC, MG, CMP ####[place] [id number] [place] Calcium [Mass/Vol] 8.7 mg/dL Normal 8.6-10.3 [facility] Comment on above: Order Comment: PER R N ELLIOT WILL CALL WHEN PT IS CALM DOWN. Performed By: #### C MP, MG, CBC ####[address] Calcium [Mass/Vol] 8.6 mg/dL Normal 8.6-10.3 [facility] Comment on above: Order Comment: PER R N ELLIOT WILL CALL WHEN PT IS CALM DOWN. Performed By: #### S CAN CBC, PRL, LACTIC, MG, CMP ####[address] Chloride [Moles/Vol] 96 mmol/L Low 98-107 [facility] Comment on above: Order Comment: PER R N ELLIOT WILL CALL WHEN PT IS CALM DOWN. Performed By: #### C MP, MG, CBC ####[address] Performed By: #### S CAN CBC, PRL, LACTIC, MG, CMP ####[address] CO2 [Moles/Vol] 35.0 mmol/L High 21.0-31.0 [facility] Comment on above: Order Comment: PER R N ELLIOT WILL CALL WHEN PT IS CALM DOWN. Performed By: #### C MP, MG, CBC ####[address] CO2 [Moles/Vol] 33.7 mmol/L High 21.0-31.0 [facility] Comment on above: Order Comment: PER R N ELLIOT WILL CALL WHEN PT IS CALM DOWN. Performed By: #### S CAN CBC, PRL, LACTIC, MG, CMP ####[address] Creatinine [Mass/Vol] 0.96 mg/dL Normal 0.70-1.30 [facility] Comment on above: Order Comment: PER R N ELLIOT WILL CALL WHEN PT IS CALM DOWN. Performed By: #### C MP, MG, CBC ####[address] Creatinine [Mass/Vol] 0.93 mg/dL Normal 0.70-1.30 [facility] Comment on above: Order Comment: PER R N ELLIOT WILL CALL WHEN PT IS CALM DOWN. Performed By: #### S CAN CBC, PRL, LACTIC, MG, CMP ####[address] Creatinine Clr Calc Pharmacy 78.75 Normal [facility] Comment on above: Order Comment: PER R N ELLIOT WILL CALL WHEN PT IS CALM DOWN. Performed By: #### C MP, MG, CBC ####[address] Creatinine Clr Calc Pharmacy 81.29 Normal [facility] Comment on above: Order Comment: PER R N ELLIOT WILL CALL WHEN PT IS CALM DOWN. Performed By: #### S CAN CBC, PRL, LACTIC, MG, CMP ####[address] GFR/1.73 sq M.predicted MDRD (S/P/Bld) [Vol rate/Area] mL/min/{1.73_m2} Normal [facility] Comment on above: Order Comment: PER R N ELLIOT WILL CALL WHEN PT IS CALM DOWN. Performed By: #### C MP, MG, CBC ####[address] Performed By: #### S CAN CBC, PRL, LACTIC, MG, CMP ####[address] Globulin (S) [Mass/Vol] 3.1 g/dL Normal [facility] Comment on above: Order Comment: PER R N ELLIOT WILL CALL WHEN PT IS CALM DOWN. Performed By: #### C MP, MG, CBC ####[address] Globulin (S) [Mass/Vol] 3.0 g/dL Normal [facility] Comment on above: Order Comment: PER R N ELLIOT WILL CALL WHEN PT IS CALM DOWN. Performed By: #### S CAN CBC, PRL, LACTIC, MG, CMP ####[address] Glucose [Mass/Vol] 136 mg/dL High 70-100 [facility] Comment on above: Order Comment: PER R N ELLIOT WILL CALL WHEN PT IS CALM DOWN. Result Comment: [employer] Glucose Reference Range is dependent on time and content of last meal. Glucose of more than 200 mg/dL in a nonstressed, ambulatory subject supports the diagnosis of Diabetes Mellitus. ADA recommended reference range Performed By: #### C MP, MG, CBC ####[address] Performed By: #### S CAN CBC, PRL, LACTIC, MG, CMP ####[address] Potassium [Moles/Vol] 3.7 mmol/L Normal 3.5-5.1 [facility] Comment on above: Order Comment: PER R N ELLIOT WILL CALL WHEN PT IS CALM DOWN. Performed By: #### C MP, MG, CBC ####[address] Performed By: #### S CAN CBC, PRL, LACTIC, MG, CMP ####[address] Protein [Mass/Vol] 6.0 g/dL Low 6.4-8.9 [facility] Comment on above: Order Comment: PER R N ELLIOT WILL CALL WHEN PT IS CALM DOWN. Performed By: #### C MP, MG, CBC ####[address] Protein [Mass/Vol] 5.9 g/dL Low 6.4-8.9 [facility] Comment on above: Order Comment: PER R N ELLIOT WILL CALL WHEN PT IS CALM DOWN. Performed By: #### S CAN CBC, PRL, LACTIC, MG, CMP ####[place] [id number] [place] [id number] [facility] Sodium [Moles/Vol] 138 mmol/L Normal 136-145 [facility] Comment on above: Order Comment: PER R N ELLIOT WILL CALL WHEN PT IS CALM DOWN. Performed By: #### C MP, MG, CBC ####[place] [id number] [facility] Performed By: #### S CAN CBC, PRL, LACTIC, MG, CMP ####[place] [id number] [facility] Urea nitrogen [Mass/Vol] 28 mg/dL High 7-25 [facility] Comment on above: Order Comment: PER R N ELLIOT WILL CALL WHEN PT IS CALM DOWN. Performed By: #### C MP, MG, CBC ####[place] [id number] [facility] Urea nitrogen [Mass/Vol] 27 mg/dL High 7-25 [facility] Comment on above: Order Comment: PER R N ELLIOT WILL CALL WHEN PT IS CALM DOWN. Performed By: #### S CAN CBC, PRL, LACTIC, MG, CMP ####[place] [id number] [facility] Creatine Kinaseon 05-13-2024 CK [Catalytic activity/Vol] 20 U/L Low 30-223 [facility] Comment on above: Result Comment: PERF ORMED BY:[address] [place], [place] [phone] MEDICAL DIRECTORFRANCHESCA MAGALLON M.D. Performed By: #### C K ####[place] [id number] [facility] Creatine kinase [Enzymatic a ctivity/volume] in Serum or PlasmaOrdered By: Moris Quarles on 05-13-2024 CK [Catalytic activity/Vol] Creatine kinase [Enzymatic activity/volume] in Serum or Plasma Low 30-223 [facility] ECG 12 lead ECGon 05-13-2024 ECG 12 lead ECG Normal [facility] Glucose Poct Glucometerson 0 05-13-2024 Glucose [Mass/Vol] 204 mg/dL Normal [facility] Comment on above: Result Comment: [employer] om Glucose Reference Range is dependent on time and content of last meal. Glucose of more than 200 mg/dL in a nonstressed, ambulatory subject supports the diagnosis of Diabetes Mellitus.PERFORMED BY:[address] [place], [place] [phone] MEDICAL DIRECTORFRANCHESCA MAGALLON M.D. Performed By: #### G LULS ####Point of Care testing, Glucose [Mass/Vol] 162 mg/dL Normal [facility] Comment on above: Result Comment: [employer] om Glucose Reference Range is dependent on time and content of last meal. Glucose of more than 200 mg/dL in a nonstressed, ambulatory subject supports the diagnosis of Diabetes Mellitus.PERFORMED BY:[address] [place], [place] [phone] MEDICAL DIRECTORFRANCHESCA MAGALLON M.D. Performed By: #### G LULS ####Point of Care testing, Glucose [Mass/Vol] 185 mg/dL Normal [facility] Comment on above: Result Comment: [employer] om Glucose Reference Range is dependent on time and content of last meal. Glucose of more than 200 mg/dL in a nonstressed, ambulatory subject supports the diagnosis of Diabetes Mellitus.PERFORMED BY:[address] [place], [place] [phone] MEDICAL TRESA MAGALLON M.D. Performed By: #### G LULS ####Point of Care testing, Glucose [Mass/Vol] 164 mg/dL Normal [facility] Comment on above: Result Comment: [facility] Glucose Reference Range is dependent on time and content of last meal. Glucose of more than 200 mg/dL in a nonstressed, ambulatory subject supports the diagnosis of Diabetes Mellitus.PERFORMED BY:[address] [place], [place] [phone] MEDICAL DIRECTORFRANCHESCA MAGALLON M.D. Performed By: #### G LULS ####Point of Care testing, Lactate [Moles/volume] in Se rum or PlasmaOrdered By: Moris Quarles on 05-13-2024 Lactate [Moles/Vol] Lactate [Moles/volum e] in Serum or Plasma 0.5-2.2 [facility] Lactic Acidon 05-13-2024 Lactate [Moles/Vol] 1.6 mmol/L Normal 0.5-2.2 [facility] Comment on above: Order Comment: PER R Phuc ZARATE WILL CALL WHEN PT IS CALM DOWN. Result Comment: PERF ORMED BY:[address] [place], [place] [phone] MEDICAL DIRECTORFRANCHESCA MAGALLON M.D. Performed By: #### S CAN CBC, PRL, LACTIC, MG, CMP ####[place] [id number] [facility] Magnesiumon 05-13-2024 Magnesium [Mass/Vol] 2.1 mg/dL Normal 1.9-2.7 [facility] Comment on above: Order Comment: PER Deana ZARATE WILL CALL WHEN PT IS CALM DOWN. Result Comment: PERF ORMED BY:[place] [address] [place], [place] [phone] MEDICAL DIRECTORFRANCHESCA MAGALLON M.D. Performed By: #### C MP, MG, CBC ####[address] Performed By: #### S CAN CBC, PRL, LACTIC, MG, CMP ####[address] No Panel InformationOrdered By: Hilda Ruiz on 05-13-2024 Arterial Blood Base Excess 8.5 mmol/L High -3.0-3.0 [facility] Arterial Blood Oxygen Content 7.0 mmol/L 6.6-9.7 [facility] Arterial Blood Oxygen Saturation 96.2 % 95.0-100.0 [facility] Arterial Blood Partial Pressure CO2 47.5 mm[Hg] High 35.0-45.0 [facility] Arterial Blood Partial Pressure O2 86.4 mm[Hg] 80.0-100.0 [facility] Arterial Blood pH 7.47 High 7.35-7.45 [facility] Blood Gas Critical Value See comment [facility] Comment on above: Critical Value almendarez d on: 05/13/2024 at 05:43 Blood Gas Sample Site Right radial F [facility] FiO2 85 % [facility] Oxygen Delivery Device High flow Fi [facility] Polychromasia [Presence] in Blood by Light microscopyOrdered By: Moris Quarles on 05-13-2024 Polychromasia LM Ql (Bld) Polychromasia [Presence] in Blood by Light microscopy [facility] Prolactinon 05-13-2024 Prolactin 68.03 ng/mL High 2.64-13.13 [facility] Comment on above: Order Comment: PER R N ELLIOT WILL CALL WHEN PT IS CALM DOWN. Result Comment: PERF ORMED BY:[place] [address] [place] [place], [place] [phone] MEDICAL DIRECTORFRANCHESCA MAGALLON M.D. Performed By: #### S CAN CBC, PRL, LACTIC, MG, CMP ####[address] [address] [facility] Prolactin [Mass/volume] in S kay or PlasmaOrdered By: Moris Quarles on 05-13-2024 Prolactin [Mass/Vol] Prolactin [Mass/vol ume] in Serum or Plasma High 2.64-13.13 [facility] Rouleaux [Presence] in Blood by Light microscopyOrdered By: Moris Quarles on 05-13-2024 Rouleaux LM Ql (Bld) Rouleaux detection [facility] Scan and CBCon 05-13-2024 Anisocytosis Ql (Bld) Slight Normal [facility] Comment on above: Order Comment: PER R N ELLIOT WILL CALL WHEN PT IS CALM DOWN. Performed By: #### S CAN CBC, PRL, LACTIC, MG, CMP ####[address] [address] [place] Basophils (Bld) [#/Vol] 0.2 10*3/uL Normal 0.0-0.2 [facility] Comment on above: Order Comment: PER R N ELLIOT WILL CALL WHEN PT IS CALM DOWN. Performed By: #### S CAN CBC, PRL, LACTIC, MG, CMP ####[address] Basophils/100 WBC (Bld) 1.5 % Normal . [facility] Comment on above: Order Comment: PER R N ELLIOT WILL CALL WHEN PT IS CALM DOWN. Performed By: #### S CAN CBC, PRL, LACTIC, MG, CMP ####[address] Erythrocyte distribution width (RBC) [Ratio] 15.2 % High 12.0-14.8 [facility] Comment on above: Order Comment: PER R N ELLIOT WILL CALL WHEN PT IS CALM DOWN. Performed By: #### S CAN CBC, PRL, LACTIC, MG, CMP ####[address] Hematocrit (Bld) [Volume fraction] 34.4 % Low 38.8-50.0 [facility] Comment on above: Order Comment: PER R N ELLIOT WILL CALL WHEN PT IS CALM DOWN. Performed By: #### S CAN CBC, PRL, LACTIC, MG, CMP ####[address] Hemoglobin (Bld) [Mass/Vol] 11.6 g/dL Low 13.0-17.0 [facility] Comment on above: Order Comment: PER R N ELLIOT WILL CALL WHEN PT IS CALM DOWN. Performed By: #### S CAN CBC, PRL, LACTIC, MG, CMP ####[address] Lymphocytes (Bld) [#/Vol] 1.3 10*3/uL Normal 1.00-4.8 [facility] Comment on above: Order Comment: PER R N ELLIOT WILL CALL WHEN PT IS CALM DOWN. Performed By: #### S CAN CBC, PRL, LACTIC, MG, CMP ####[address] Lymphocytes/100 WBC (Bld) 8.6 % Normal . [facility] Comment on above: Order Comment: PER R N ELLIOT WILL CALL WHEN PT IS CALM DOWN. Performed By: #### S CAN CBC, PRL, LACTIC, MG, CMP ####[address] MCH (RBC) [Entitic mass] 32.3 pg Normal 27.5-35.2 [facility] Comment on above: Order Comment: PER R N ELLIOT WILL CALL WHEN PT IS CALM DOWN. Performed By: #### S CAN CBC, PRL, LACTIC, MG, CMP ####[address] MCV (RBC) [Entitic vol] 95.5 fL Normal 83.5-101 [facility] Comment on above: Order Comment: PER R N ELLIOT WILL CALL WHEN PT IS CALM DOWN. Performed By: #### S CAN CBC, PRL, LACTIC, MG, CMP ####[address] Mean Corpuscular HGB Conc 33.8 g/dL Normal 32.5-35.6 [facility] Comment on above: Order Comment: PER R N ELLIOT WILL CALL WHEN PT IS CALM DOWN. Performed By: #### S CAN CBC, PRL, LACTIC, MG, CMP ####[address] Monocytes (Bld) [#/Vol] 0.4 10*3/uL Normal 0.0-0.8 [facility] Comment on above: Order Comment: PER R N ELLIOT WILL CALL WHEN PT IS CALM DOWN. Performed By: #### S CAN CBC, PRL, LACTIC, MG, CMP ####[address] Monocytes/100 WBC (Bld) 2.5 % Normal . [facility] Comment on above: Order Comment: PER R N ELLIOT WILL CALL WHEN PT IS CALM DOWN. Performed By: #### S CAN CBC, PRL, LACTIC, MG, CMP ####[address] Neutrophils (Bld) [#/Vol] 13.4 10*3/uL High 1.8-7.7 [facility] Comment on above: Order Comment: PER R N ELLIOT WILL CALL WHEN PT IS CALM DOWN. Performed By: #### S CAN CBC, PRL, LACTIC, MG, CMP ####[address] Neutrophils/100 WBC (Bld) 87.4 % Normal . [facility] Comment on above: Order Comment: PER R N ELLIOT WILL CALL WHEN PT IS CALM DOWN. Performed By: #### S CAN CBC, PRL, LACTIC, MG, CMP ####[address] NRBC% 0.0 /100{WBC} Normal 0-0.5 [facility] Comment on above: Order Comment: PER R N ELLIOT WILL CALL WHEN PT IS CALM DOWN. Performed By: #### S CAN CBC, PRL, LACTIC, MG, CMP ####[address] Platelet Estimate Increased Normal Normal [facility] Comment on above: Order Comment: PER R N ELLIOT WILL CALL WHEN PT IS CALM DOWN. Performed By: #### S CAN CBC, PRL, LACTIC, MG, CMP ####[address] Platelet mean volume (Bld) [Entitic vol] 6.6 fL Normal 6.6-10.1 [facility] Comment on above: Order Comment: PER R N ELLIOT WILL CALL WHEN PT IS CALM DOWN. Performed By: #### S CAN CBC, PRL, LACTIC, MG, CMP ####[address] Platelet Morphology Normal Normal Normal [facility] Comment on above: Order Comment: PER R N ELLIOT WILL CALL WHEN PT IS CALM DOWN. Result Comment: PERF ORMED BY:[address] [place], [place] [phone] MEDICAL DIRECTORFRANCHESCA MAGALLON M.D. Performed By: #### S CAN CBC, PRL, LACTIC, MG, CMP ####[address] Platelets (Bld) [#/Vol] 507 10*3/uL High 150-450 [facility] Comment on above: Order Comment: PER R N ELLIOT WILL CALL WHEN PT IS CALM DOWN. Performed By: #### S CAN CBC, PRL, LACTIC, MG, CMP ####[address] Poikilocytosis Slight Normal [facility] Comment on above: Order Comment: PER R N ELLIOT WILL CALL WHEN PT IS CALM DOWN. Performed By: #### S CAN CBC, PRL, LACTIC, MG, CMP ####[address] Polychromasia Slight Normal [facility] Comment on above: Order Comment: PER R N ELLIOT WILL CALL WHEN PT IS CALM DOWN. Performed By: #### S CAN CBC, PRL, LACTIC, MG, CMP ####[address] RBC (Bld) [#/Vol] 3.60 10*6/uL Low 3.90-5.60 [facility] Comment on above: Order Comment: PER R N ELLIOT WILL CALL WHEN PT IS CALM DOWN. Performed By: #### S CAN CBC, PRL, LACTIC, MG, CMP ####[address] Rouleaux Slight Normal [facility] Comment on above: Order Comment: PER R N ELLIOT WILL CALL WHEN PT IS CALM DOWN. Performed By: #### S CAN CBC, PRL, LACTIC, MG, CMP ####[address] Stomatocytes Slight Normal [facility] Comment on above: Order Comment: PER R N ELLIOT WILL CALL WHEN PT IS CALM DOWN. Performed By: #### S CAN CBC, PRL, LACTIC, MG, CMP ####[address] WBC (Bld) [#/Vol] 15.3 10*3/uL High 4.1-10.5 [facility] Comment on above: Order Comment: PER R N ELLIOT WILL CALL WHEN PT IS CALM DOWN. Performed By: #### S CAN CBC, PRL, LACTIC, MG, CMP ####[place] [id number] [facility] Stomatocytes [Presence] in B lood by Light microscopyOrdered By: Moris Quarles on 05-13-2024 Stomatocytes LM Ql (Bld) Red blood cell stomatocyte detection [facility] Valproate [Mass/volume] in S kay or PlasmaOrdered By: Jimmy Gonzalez on 05-13-2024 Valproate [Mass/Vol] Valproate [Mass/vol ume] in Serum or Plasma Low 50.0-100.0 [facility] Comment on above: Last dose: - Valproic Acid (in house)on 0 05-13-2024 Valproic Acid (in house) 32.3 ug/mL Low 50.0-100.0 [facility] Comment on above: Order Comment: Comme nt Free level, serum, ADD ON TO AM LABS Result Comment: Last dose: -PERFORMED BY:[address] [place], [place] [phone] MEDICAL DIRECTORMOGEN MAGALLON M.D. Performed By: #### V ALP ####[place] [id number] [facility] X-ray reportOrdered By: Allan Acuna on 05-13-2024 Study report [facility] Main [place] [address] [id number] XRay Report Signed Patient: Juan Simon MR#: [id number] : 1955 Acct:[id number] Age/Sex: 68 / M ADM Date: 4 Loc: Room: 7Z2384-7 Type: ADM IN Attending Dr: Hilda Ruiz [...] Cliff Acuna M.D.05/13/2024 8:16 AM Dictation Location: [facility]16 Transcribed By: [facility] 05/13/24 0816 Dictated By: Cliff Acuna DO 05/13/24 0815 Signed By: 05/13/24 0816 [facility] XR chest 1V portableon 05-13 XR chest 1V portable Normal [facility] CT head/brain wo conon 05-12 CT head/brain wo con Normal [facility] Glucose Poct Glucometerson 0 05-12-2024 Glucose [Mass/Vol] 223 mg/dL Normal [facility] Comment on above: Result Comment: [facility] Glucose Reference Range is dependent on time and content of last meal. Glucose of more than 200 mg/dL in a nonstressed, ambulatory subject supports the diagnosis of Diabetes Mellitus.PERFORMED BY:[place] [place] [address] [address] [place], [place] [phone] MEDICAL DIRECTORFRANCHESCA MAGALLON M.D. Performed By: #### G LULS ####Point of Care testing, Glucose [Mass/Vol] 127 mg/dL Normal [facility] Comment on above: Result Comment: [facility] Glucose Reference Range is dependent on time and content of last meal. Glucose of more than 200 mg/dL in a nonstressed, ambulatory subject supports the diagnosis of Diabetes Mellitus.PERFORMED BY:[address]CL[place], [place] [phone] MEDICAL DIRECTORFRANCHESCA MAGALLON M.D. Performed By: #### G LULS ####Point of Care testing, Glucose [Mass/Vol] 167 mg/dL Normal [facility] Comment on above: Result Comment: [facility] Glucose Reference Range is dependent on time and content of last meal. Glucose of more than 200 mg/dL in a nonstressed, ambulatory subject supports the diagnosis of Diabetes Mellitus.PERFORMED BY:[address], [place] [phone] MEDICAL DIRECTORFRANCHESCA MAGALLON M.D. Performed By: #### G LULS ####Point of Care testing, Glucose [Mass/Vol] 136 mg/dL Normal [facility] Comment on above: Result Comment: [facility] Glucose Reference Range is dependent on time and content of last meal. Glucose of more than 200 mg/dL in a nonstressed, ambulatory subject supports the diagnosis of Diabetes Mellitus.PERFORMED BY:[address] [place], [place] [phone] MEDICAL DIRECTORFRANCHESCA MAGALLON M.D. Performed By: #### G LULS ####Point of Care testing, X-ray reportOrdered By: Allan Acuna on 05-12-2024 Study report [facility] Main [address] [address] XRay Report Signed Patient: Juan Simon MR#: [id number] : 1955 Acct:[id number] Age/Sex: 68 / M ADM Date: 4 Loc: Room: [address] [place] [address] Type: ADM IN Attending Dr: Hilda Ruiz [...] Cliff Acuna M.D.05/12/2024 3:23 PM Dictation Location: [facility] Transcribed By: [facility] 05/12/24 1523 Dictated By: Cliff Acuna DO 05/12/24 1519 Signed By: 05/12/24 1523 [facility] XR chest 1V portableon 05-12 XR chest 1V portable Normal [facility] Complete Blood Count Auto Di ffon 05-11-2024 Basophils (Bld) [#/Vol] 0.1 10*3/uL Normal 0.0-0.2 [facility] Comment on above: Result Comment: PERF ORMED BY:[place] [address] [address] [place], [place] [phone] MEDICAL DIRECTORFRANCHESCA MAGALLON M.D. Performed By: #### C MP, CBC, MG ####[facility] [place] [id number] [facility] Basophils/100 WBC (Bld) 0.5 % Normal . T jeniffer [facility] Comment on above: Performed By: #### C MP, CBC, MG ####[facility] [address] [place] [address] [place] Eosinophils (Bld) [#/Vol] 0.1 10*3/uL Normal 0.0-0.45 [facility] Comment on above: Performed By: #### C MP, CBC, MG ####[facility] [place] [address] [place] Eosinophils/100 WBC (Bld) 0.7 % Normal . [facility] Comment on above: Performed By: #### C MP, CBC, MG ####[address] Erythrocyte distribution width (RBC) [Ratio] 14.7 % Normal 12.0-14.8 [facility] Comment on above: Performed By: #### C MP, CBC, MG ####[address] Hematocrit (Bld) [Volume fraction] 36.1 % Low 38.8-50.0 [facility] Comment on above: Performed By: #### C MP, CBC, MG ####[address] Hemoglobin (Bld) [Mass/Vol] 12.1 g/dL Low 13.0-17.0 [facility] Comment on above: Performed By: #### C MP, CBC, MG ####[address] Lymphocytes (Bld) [#/Vol] 2.6 10*3/uL Normal 1.00-4.8 [facility] Comment on above: Performed By: #### C MP, CBC, MG ####[address] Lymphocytes/100 WBC (Bld) 13.2 % Normal . [facility] Comment on above: Performed By: #### C MP, CBC, MG ####[address] MCH (RBC) [Entitic mass] 32.2 pg Normal 27.5-35.2 [facility] Comment on above: Performed By: #### C MP, CBC, MG ####[address] MCV (RBC) [Entitic vol] 95.9 fL Normal 83.5-101 T [facility] Comment on above: Performed By: #### C MP, CBC, MG ####[address] Mean Corpuscular HGB Conc 33.6 g/dL Normal 32.5-35.6 [facility] Comment on above: Performed By: #### C MP, CBC, MG ####[address] Monocytes (Bld) [#/Vol] 1.2 10*3/uL High 0.0-0.8 [facility] Comment on above: Performed By: #### C MP, CBC, MG ####[address] Monocytes/100 WBC (Bld) 6.0 % Normal . [facility] Comment on above: Performed By: #### C MP, CBC, MG ####[address] Neutrophils (Bld) [#/Vol] 15.6 10*3/uL High 1.8-7.7 [facility] Comment on above: Performed By: #### C MP, CBC, MG ####[address] Neutrophils/100 WBC (Bld) 79.6 % Normal . [facility] Comment on above: Performed By: #### C MP, CBC, MG ####[address] NRBC% 0.1 /100{WBC} Normal 0-0.5 [facility] Comment on above: Performed By: #### C MP, CBC, MG ####[address] Platelet mean volume (Bld) [Entitic vol] 6.8 fL Normal 6.6-10.1 [facility] Comment on above: Performed By: #### C MP, CBC, MG ####[address] Platelets (Bld) [#/Vol] 524 10*3/uL High 150-450 [facility] Comment on above: Performed By: #### C MP, CBC, MG ####[address] [place] [address] [place] RBC (Bld) [#/Vol] 3.76 10*6/uL Low 3.90-5.60 [facility] Comment on above: Performed By: #### C MP, CBC, MG ####[address] WBC (Bld) [#/Vol] 19.6 10*3/uL High 4.1-10.5 [facility] Comment on above: Performed By: #### C MP, CBC, MG ####[place] [id number] [facility] Comprehensive Metabolic Pane raudel 05-11-2024 Albumin [Mass/Vol] 2.9 g/dL Low 3.5-5.7 [facility] Comment on above: Performed By: #### C MP, CBC, MG ####[address] Albumin/Globulin [Mass ratio] 0.9 {ratio} Normal [facility] Comment on above: Performed By: #### C MP, CBC, MG ####[address] ALP [Catalytic activity/Vol] 80 U/L Normal 34-104 [facility] Comment on above: Performed By: #### C MP, CBC, MG ####[address] ALT [Catalytic activity/Vol] 25 U/L Normal 7-52 [facility] Comment on above: Performed By: #### C MP, CBC, MG ####[place] [id number] [facility] Anion gap [Moles/Vol] 13.2 mmol/L Normal 6.0-15.0 e [facility] Comment on above: Performed By: #### C MP, CBC, MG ####[address] AST [Catalytic activity/Vol] 24 U/L Normal 13-39 [facility] Comment on above: Performed By: #### C MP, CBC, MG ####[address] Bilirubin [Mass/Vol] 0.8 mg/dL Normal 0.3-1.0 [facility] Comment on above: Performed By: #### C MP, CBC, MG ####[address] Calcium [Mass/Vol] 8.4 mg/dL Low 8.6-10.3 [facility] Comment on above: Performed By: #### C MP, CBC, MG ####[address] Chloride [Moles/Vol] 90 mmol/L Low 98-107 [facility] Comment on above: Performed By: #### C MP, CBC, MG ####[address] CO2 [Moles/Vol] 31.7 mmol/L High 21.0-31.0 [facility] Comment on above: Performed By: #### C MP, CBC, MG ####[address] Creatinine [Mass/Vol] 0.75 mg/dL Normal 0.70-1.30 [facility] Comment on above: Performed By: #### C MP, CBC, MG ####[address] Creatinine Clr Calc Pharmacy 94.85 Normal [facility] Comment on above: Performed By: #### C MP, CBC, MG ####[address] GFR/1.73 sq M.predicted MDRD (S/P/Bld) [Vol rate/Area] mL/min/{1.73_m2} Normal [facility] Comment on above: Performed By: #### C MP, CBC, MG ####[address] Globulin (S) [Mass/Vol] 3.4 g/dL Normal T [facility] Comment on above: Performed By: #### C MP, CBC, MG ####[place] [id number] [facility] Glucose [Mass/Vol] 228 mg/dL Significant change up 70-100 [facility] Comment on above: Result Comment: [facility] Glucose Reference Range is dependent on time and content of last meal. Glucose of more than 200 mg/dL in a nonstressed, ambulatory subject supports the diagnosis of Diabetes Mellitus. ADA recommended reference range Performed By: #### C MP, CBC, MG ####[place] [id number] [facility] Potassium [Moles/Vol] 3.9 mmol/L Normal 3.5-5.1 [facility] Comment on above: Performed By: #### C MP, CBC, MG ####[place] [id number] [facility] Protein [Mass/Vol] 6.3 g/dL Low 6.4-8.9 [facility] Comment on above: Performed By: #### C MP, CBC, MG ####[place] [id number] [facility] Sodium [Moles/Vol] 131 mmol/L Low 136-145 [facility] Comment on above: Performed By: #### C MP, CBC, MG ####[place] [id number] [facility] Urea nitrogen [Mass/Vol] 14 mg/dL Normal 7-25 [facility] Comment on above: Performed By: #### C MP, CBC, MG ####[place] [id number] [facility] Glucose Poct Glucometerson 0 05-11-2024 Glucose [Mass/Vol] 186 mg/dL Normal [facility] Comment on above: Result Comment: [facility] Glucose Reference Range is dependent on time and content of last meal. Glucose of more than 200 mg/dL in a nonstressed, ambulatory subject supports the diagnosis of Diabetes Mellitus.PERFORMED BY:[address] [place], [place] [phone] MEDICAL DIRECTORMOHAMED M EL-FAKHARANY M.D. Performed By: #### G LULS ####Point of Care testing, Glucose [Mass/Vol] 144 mg/dL Normal [facility] Comment on above: Result Comment: [employer] Glucose Reference Range is dependent on time and content of last meal. Glucose of more than 200 mg/dL in a nonstressed, ambulatory subject supports the diagnosis of Diabetes Mellitus.PERFORMED BY:[address] [place], [place] [phone] MEDICAL DIRECTORFRANCHESCA MAGALLON M.D. Performed By: #### G LULS ####Point of Care testing, Glucose [Mass/Vol] 159 mg/dL Normal [facility] Comment on above: Result Comment: [facility] Glucose Reference Range is dependent on time and content of last meal. Glucose of more than 200 mg/dL in a nonstressed, ambulatory subject supports the diagnosis of Diabetes Mellitus.PERFORMED BY:[address] [place], [place] [phone] MEDICAL DIRECTORFRANCHESCA MAGALLON M.D. Performed By: #### G LULS ####Point of Care testing, Magnesiumon 05-11-2024 Magnesium [Mass/Vol] 1.8 mg/dL Low 1.9-2.7 [facility] Comment on above: Result Comment: PERF ORMED BY:[address] [address] [address] [place], [place] [phone] MEDICAL DIRECTORFRANCHESCA MAGALLON M.D. Performed By: #### C MP, CBC, MG ####[address] [address] [facility] Vancomycin,Troughon 05-11-19 25 Vancomycin,Trough 20.0 ug/mL Normal 10.0-20.0 [facility] Comment on above: Order Comment: Time of next dose? 29 Date of last dose?: 20240510 Time of last dose?: 1229 Result Comment: Last dose: -PERFORMED BY:[address] [address] [address] [place] [phone] MEDICAL DIRECTORFRANCHESCA MAGALLON M.D. Performed By: #### V ANCT ####[facility] [address] [place] [address] [facility] Arterial Blood Gason 024 ABG Base Excess 5.9 mmol/L High -3.0-3.0 [facility] Comment on above: Performed By: #### A BG ####Point of Care testing, ABG Frac Inspired O2 32 % Normal [facility] Comment on above: Performed By: #### A BG ####Point of Care testing, ABG Oxygen Content 7.4 mmol/L Normal 6.6-9.7 [facility] Comment on above: Performed By: #### A BG ####Point of Care testing, ABG Oxygen Saturation 95.6 % Normal 95.0-100.0 [facility] Comment on above: Performed By: #### A BG ####Point of Care testing, ABG PCO2 39.9 mm[Hg] Normal 35.0-45.0 [facility] Comment on above: Performed By: #### A BG ####Point of Care testing, ABG PH 7.49 High 7.35-7.45 [facility] Comment on above: Performed By: #### A BG ####Point of Care testing, ABG PO2 79.0 mm[Hg] Low 80.0-100.0 [facility] Comment on above: Performed By: #### A BG ####Point of Care testing, CO2 [Moles/Vol] 30.9 mmol/L High 23.0-27.0 [facility] Comment on above: Performed By: #### A BG ####Point of Care testing, HCO3 (Bld) [Moles/Vol] 29.7 mmol/L High 23.0-29.0 T [facility] Comment on above: Performed By: #### A BG ####Point of Care testing, Oxygen Device Nasal Cannula Normal [facility] Comment on above: Performed By: #### A BG ####Point of Care testing, Respiratory Critical Normal [facility] Comment on above: Result Comment: Crit ical Value called on: 05/10/2024 at 10:59PERFORMED BY:[address] [address] [address] [place], [place] [phone] MEDICAL DIRECTORFRANCHESCA MAGALLON M.D. Performed By: #### A BG ####Point of Care testing, VBG Draw Site Right Radial Normal [facility] Comment on above: Performed By: #### A BG ####Point of Care testing, Complete Blood Count Auto Di ffon 05-10-2024 Basophils (Bld) [#/Vol] 0.1 10*3/uL Normal 0.0-0.2 [facility] Comment on above: Result Comment: PERF ORMED BY:[address] [address] [address] [place], [place] [phone] MEDICAL DIRECTORFRANCHESCA MAGALLON M.D. Performed By: #### C BC ####[place] [id number] [facility] Basophils/100 WBC (Bld) 0.9 % Normal . T [facility] Comment on above: Performed By: #### C BC ####[place] [id number] [facility] Eosinophils (Bld) [#/Vol] 0.1 10*3/uL Normal 0.0-0.45 [facility] Comment on above: Performed By: #### C BC ####[place] [id number] [facility] Eosinophils/100 WBC (Bld) 0.7 % Normal . [facility] Comment on above: Performed By: #### C BC ####[place] [id number] [facility] Erythrocyte distribution width (RBC) [Ratio] 15.1 % High 12.0-14.8 [facility] Comment on above: Performed By: #### C BC ####[address] [place] [address] [place] Hematocrit (Bld) [Volume fraction] 36.8 % Low 38.8-50.0 [facility] Comment on above: Performed By: #### C BC ####[address] Hemoglobin (Bld) [Mass/Vol] 12.2 g/dL Low 13.0-17.0 [facility] Comment on above: Performed By: #### C BC ####[address] Lymphocytes (Bld) [#/Vol] 1.9 10*3/uL Normal 1.00-4.8 [facility] Comment on above: Performed By: #### C BC ####[address] Lymphocytes/100 WBC (Bld) 12.1 % Normal . [facility] Comment on above: Performed By: #### C BC ####[address] MCH (RBC) [Entitic mass] 31.7 pg Normal 27.5-35.2 [facility] Comment on above: Performed By: #### C BC ####[address] MCV (RBC) [Entitic vol] 95.4 fL Normal 83.5-101 T he [facility] Comment on above: Performed By: #### C BC ####[address] Mean Corpuscular HGB Conc 33.2 g/dL Normal 32.5-35.6 [facility] Comment on above: Performed By: #### C BC ####[address] Monocytes (Bld) [#/Vol] 1.2 10*3/uL High 0.0-0.8 [facility] Comment on above: Performed By: #### C BC ####[address] Monocytes/100 WBC (Bld) 7.8 % Normal . T [facility] Comment on above: Performed By: #### C BC ####[address] Neutrophils (Bld) [#/Vol] 12.6 10*3/uL High 1.8-7.7 [facility] Comment on above: Performed By: #### C BC ####[address] Neutrophils/100 WBC (Bld) 78.5 % Normal . [facility] Comment on above: Performed By: #### C BC ####[address] NRBC% 0.0 /100{WBC} Normal 0-0.5 [facility] Comment on above: Performed By: #### C BC ####[address] Platelet mean volume (Bld) [Entitic vol] 6.8 fL Normal 6.6-10.1 [facility] Comment on above: Performed By: #### C BC ####[address] Platelets (Bld) [#/Vol] 456 10*3/uL High 150-450 [facility] Comment on above: Performed By: #### C BC ####[address] RBC (Bld) [#/Vol] 3.85 10*6/uL Low 3.90-5.60 [facility] Comment on above: Performed By: #### C BC ####[address] WBC (Bld) [#/Vol] 16.0 10*3/uL High 4.1-10.5 [facility] Comment on above: Performed By: #### C BC ####[address] Comprehensive Metabolic Pane raudel 05-10-2024 Albumin [Mass/Vol] 2.8 g/dL Low 3.5-5.7 [facility] Comment on above: Performed By: #### P HOS, CMP, MG ####[address] Albumin/Globulin [Mass ratio] 0.9 {ratio} Normal [facility] Comment on above: Performed By: #### P HOS, CMP, MG ####[address] ALP [Catalytic activity/Vol] 79 U/L Normal 34-104 [facility] Comment on above: Performed By: #### P HOS, CMP, MG ####[address] ALT [Catalytic activity/Vol] 28 U/L Normal 7-52 [facility] Comment on above: Performed By: #### P HOS, CMP, MG ####[address] Anion gap [Moles/Vol] 9.6 mmol/L Normal 6.0-15.0 [facility] Comment on above: Performed By: #### P HOS, CMP, MG ####[address] AST [Catalytic activity/Vol] 24 U/L Normal 13-39 [facility] Comment on above: Performed By: #### P HOS, CMP, MG ####[address] Bilirubin [Mass/Vol] 0.8 mg/dL Normal 0.3-1.0 [facility] Comment on above: Performed By: #### P HOS, CMP, MG ####[address] Calcium [Mass/Vol] 8.4 mg/dL Low 8.6-10.3 [facility] Comment on above: Performed By: #### P HOS, CMP, MG ####[address] Chloride [Moles/Vol] 92 mmol/L Low 98-107 [facility] Comment on above: Performed By: #### P HOS, CMP, MG ####[address] CO2 [Moles/Vol] 34.4 mmol/L High 21.0-31.0 [facility] Comment on above: Performed By: #### P HOS, CMP, MG ####[address] Creatinine [Mass/Vol] 0.75 mg/dL Normal 0.70-1.30 [facility] Comment on above: Performed By: #### P HOS, CMP, MG ####[address] Creatinine Clr Calc Pharmacy 94.44 Normal [facility] Comment on above: Performed By: #### P HOS, CMP, MG ####[address] GFR/1.73 sq M.predicted MDRD (S/P/Bld) [Vol rate/Area] mL/min/{1.73_m2} Normal [facility] Comment on above: Performed By: #### P HOS, CMP, MG ####[address] Globulin (S) [Mass/Vol] 3.1 g/dL Normal [facility] Comment on above: Performed By: #### P HOS, CMP, MG ####[address] Glucose [Mass/Vol] 101 mg/dL High 70-100 [facility] Comment on above: Result Comment: [employer] Glucose Reference Range is dependent on time and content of last meal. Glucose of more than 200 mg/dL in a nonstressed, ambulatory subject supports the diagnosis of Diabetes Mellitus. ADA recommended reference range Performed By: #### P HOS, CMP, MG ####[address] Potassium [Moles/Vol] 4.0 mmol/L Normal 3.5-5.1 [facility] Comment on above: Performed By: #### P HOS, CMP, MG ####[place] [id number] [facility] Protein [Mass/Vol] 5.9 g/dL Low 6.4-8.9 [facility] Comment on above: Performed By: #### P HOS, CMP, MG ####[address] Sodium [Moles/Vol] 132 mmol/L Low 136-145 [facility] Comment on above: Performed By: #### P HOS, CMP, MG ####[place] [address] Urea nitrogen [Mass/Vol] 14 mg/dL Normal 7-25 [facility] Comment on above: Performed By: #### P HOS, CMP, MG ####[place] [id number] [facility] Magnesiumon 05-10-2024 Magnesium [Mass/Vol] 1.8 mg/dL Low 1.9-2.7 [facility] Comment on above: Result Comment: PERF ORMED BY:[address] [place], [place] [phone] MEDICAL DIRECTORFRANCHESCA MAGALLON M.D. Performed By: #### P HOS, CMP, MG ####[place] [id number] [facility] Phosphate [Mass/volume] in S kay or PlasmaOrdered By: Hilda Ruiz on 05-10-2024 Phosphate [Mass/Vol] Phosphate [Mass/vol ume] in Serum or Plasma 2.5-4.5 [facility] Phosphoruson 05-10-2024 Phosphate [Mass/Vol] 3.8 mg/dL Normal 2.5-4.5 [facility] Comment on above: Performed By: #### P HOS, CMP, MG ####[place] [id number] [facility] Vancomycin,Peakon 05-10-2024 Vancomycin,Peak 41.1 ug/mL High 20.0-40.0 [facility] Comment on above: Order Comment: Comme nt ?DRAW 1 HOUR AFTER INFUSION COMPLETES Date of last dose?: 20240510 Time of last dose?: 1230 Result Comment: Last dose: -PERFORMED BY:[facility] [place], [place] [phone] MEDICAL DIRECTORFRANCHESCA MAGALLON M.D. Performed By: #### V ANCP ####[facility] [place] [address] [facility] CT head/brain wo conon 05-09 CT head/brain wo con Normal [facility] ECG 12 lead ECGon 05-09-2024 ECG 12 lead ECG Normal [facility] Arterial Blood Gason 024 ABG Base Excess 7.8 mmol/L High -3.0-3.0 [facility] Comment on above: Performed By: #### A BG ####Point of Care testing, ABG Frac Inspired O2 45 % Normal [facility] Comment on above: Performed By: #### A BG ####Point of Care testing, ABG Liter Flow 6 Normal [facility] Comment on above: Performed By: #### A BG ####Point of Care testing, ABG Oxygen Content 7.5 mmol/L Normal 6.6-9.7 [facility] Comment on above: Performed By: #### A BG ####Point of Care testing, ABG Oxygen Saturation 95.1 % Normal 95.0-100.0 [facility] Comment on above: Performed By: #### A BG ####Point of Care testing, ABG PCO2 45.9 mm[Hg] High 35.0-45.0 [facility] Comment on above: Performed By: #### A BG ####Point of Care testing, ABG PH 7.47 High 7.35-7.45 [facility] Comment on above: Performed By: #### A BG ####Point of Care testing, ABG PO2 75.7 mm[Hg] Low 80.0-100.0 [facility] Comment on above: Performed By: #### A BG ####Point of Care testing, CO2 [Moles/Vol] 33.9 mmol/L High 23.0-27.0 [facility] Comment on above: Performed By: #### A BG ####Point of Care testing, HCO3 (Bld) [Moles/Vol] 32.5 mmol/L High 23.0-29.0 [facility] Comment on above: Performed By: #### A BG ####Point of Care testing, Respiratory Critical Normal [facility] Comment on above: Result Comment: Crit ical Value called on: 05/08/2024 at 14:14PERFORMED BY:[address] [place], [place] [phone] MEDICAL DIRECTORFRANCHESCA MAGALLON M.D. Performed By: #### A BG ####Point of Care testing, VBG Draw Site Left Radial Normal [facility] Comment on above: Performed By: #### A BG ####Point of Care testing, B-Type Natriuretic Peptideon 05-08-2024 Natriuretic peptide B (Bld) [Mass/Vol] 499.0 pg/mL High 5-100 [facility] Comment on above: Result Comment: PERF ORMED BY:[place] [address] [address] [place], [place] [phone] MEDICAL DIRECTORFRANCHESCA MAGALLON M.D. Performed By: #### H S TROP, BNP ####[address] [address] [facility] Basic Metabolic Panelon 04-11 Anion gap [Moles/Vol] 11.0 mmol/L Normal 6.0-15.0 [facility] Comment on above: Performed By: #### C BCNO, BMP, MG ####[address] [address] [facility] Calcium [Mass/Vol] 8.7 mg/dL Normal 8.6-10.3 [facility] Comment on above: Performed By: #### C BCNO, BMP, MG ####[place] [address] [place] [id number] [facility] Chloride [Moles/Vol] 98 mmol/L Normal 98-107 [facility] Comment on above: Performed By: #### C BCNO, BMP, MG ####[place] [address] [place] [address] [facility] CO2 [Moles/Vol] 29.3 mmol/L Normal 21.0-31.0 [facility] Comment on above: Performed By: #### C BCNO, BMP, MG ####[place] [address] [place] [id number] [facility] Creatinine [Mass/Vol] 0.64 mg/dL Low 0.70-1.30 [facility] Comment on above: Performed By: #### C BCNO, BMP, MG ####[place] [id number] [place] Creatinine Clr Calc Pharmacy 94.80 Normal [facility] Comment on above: Performed By: #### C BCNO, BMP, MG ####[place] [id number] [place] GFR/1.73 sq M.predicted MDRD (S/P/Bld) [Vol rate/Area] mL/min/{1.73_m2} Normal [facility] Comment on above: Performed By: #### C BCNO, BMP, MG ####[address] Glucose [Mass/Vol] 125 mg/dL High 70-100 [facility] Comment on above: Result Comment: [employer] Glucose Reference Range is dependent on time and content of last meal. Glucose of more than 200 mg/dL in a nonstressed, ambulatory subject supports the diagnosis of Diabetes Mellitus. ADA recommended reference range Performed By: #### C BCNO, BMP, MG ####[place] [address] [place] [id number] [facility] Potassium [Moles/Vol] 4.3 mmol/L Normal 3.5-5.1 [facility] Comment on above: Performed By: #### C BCNO, BMP, MG ####[place] [address] Sodium [Moles/Vol] 134 mmol/L Low 136-145 [facility] Comment on above: Performed By: #### C BCNO, BMP, MG ####[place] [address] Urea nitrogen [Mass/Vol] 10 mg/dL Normal 7-25 [facility] Comment on above: Performed By: #### C BCNO, BMP, MG ####[place] [address] Bilirubin.direct [Mass/volum e] in Serum or PlasmaOrdered By: Alvin Crisostomo on 05-08-2024 Bilirubin.direct [Mass/Vol] Bilirubin.direct [Mass/volume] in Serum or Plasma 0.03-0.[address] [facility] [address] abdomen pelvis w conon CT abdomen pelvis w con Normal T [facility] CT angio chest PE protocolon 05-08-2024 CT angio chest PE protocol Normal [facility] Hemogram CBC Without Diffon 05-08-2024 Erythrocyte distribution width (RBC) [Ratio] 15.2 % High 12.0-14.8 [facility] Comment on above: Performed By: #### C BCNO, BMP, MG ####[address] Hematocrit (Bld) [Volume fraction] 38.8 % Normal 38.8-50.0 [facility] Comment on above: Performed By: #### C BCNO, BMP, MG ####[address] Hemoglobin (Bld) [Mass/Vol] 13.2 g/dL Normal 13.0-17.0 [facility] Comment on above: Performed By: #### C BCNO, BMP, MG ####[place] [address] MCH (RBC) [Entitic mass] 32.7 pg Normal 27.5-35.2 [facility] Comment on above: Performed By: #### C BCNO, BMP, MG ####[place] [id number] [facility] MCV (RBC) [Entitic vol] 95.9 fL Normal 83.5-101 [facility] Comment on above: Performed By: #### C BCNO, BMP, MG ####[place] [id number] [facility] Mean Corpuscular HGB Conc 34.0 g/dL Normal 32.5-35.6 [facility] Comment on above: Performed By: #### C BCNO, BMP, MG ####[address] Platelet mean volume (Bld) [Entitic vol] 6.5 fL Low 6.6-10.1 [facility] Comment on above: Result Comment: PERF ORMED BY:[address] [place], [place] [phone] MEDICAL DIRECTORFRANCHESCA MAGALLON M.D. Performed By: #### C BCNO, BMP, MG ####[address] Platelets (Bld) [#/Vol] 403 10*3/uL Normal 150-450 [facility] Comment on above: Performed By: #### C BCNO, BMP, MG ####[place] [id number] [facility] RBC (Bld) [#/Vol] 4.04 10*6/uL Normal 3.90-5.60 [facility] Comment on above: Performed By: #### C BCNO, BMP, MG ####[address] WBC (Bld) [#/Vol] 22.2 10*3/uL High 4.1-10.5 [facility] Comment on above: Performed By: #### C BCNO, BMP, MG ####[address] Hepatic Panelon 05-08-2024 Albumin [Mass/Vol] 3.1 g/dL Low 3.5-5.7 [facility] Comment on above: Performed By: #### H EPATIC, LACTIC ####[place] [id number] [facility] Albumin/Globulin [Mass ratio] 1.0 {ratio} Normal [facility] Comment on above: Performed By: #### H EPATIC, LACTIC ####[place] [id number] [facility] ALP [Catalytic activity/Vol] 88 U/L Normal 34-104 [facility] Comment on above: Result Comment: PERF ORMED BY:[address] [place], [place] [phone] MEDICAL DIRECTORFRANCHESCA MAGALLON M.D. Performed By: #### H EPATIC, LACTIC ####[place] [id number] [facility] ALT [Catalytic activity/Vol] 34 U/L Normal 7-52 [facility] Comment on above: Performed By: #### H EPATIC, LACTIC ####[place] [id number] [facility] AST [Catalytic activity/Vol] 28 U/L Normal 13-39 [facility] Comment on above: Performed By: #### H EPATIC, LACTIC ####[place] [id number] [facility] Bilirubin [Mass/Vol] 0.9 mg/dL Normal 0.3-1.0 [facility] Comment on above: Performed By: #### H EPATIC, LACTIC ####[place] [id number] [facility] Bilirubin,Indirect 0.8 mg/dL Normal [facility] Comment on above: Performed By: #### H EPATIC, LACTIC ####[place] [id number] [facility] Bilirubin.indirect [Mass/Vol] 0.10 mg/dL Normal 0.03-0.18 [facility] Comment on above: Performed By: #### H EPATIC, LACTIC ####[facility] [place] [address] [facility] Globulin (S) [Mass/Vol] 3.1 g/dL Normal T [facility] Comment on above: Performed By: #### H EPATIC, LACTIC ####[facility] [place] [address] [facility] Protein [Mass/Vol] 6.2 g/dL Low 6.4-8.9 [facility] Comment on above: Performed By: #### H EPATIC, LACTIC ####[place] [address] [place] [address] [facility] INR in Platelet poor plasma by Coagulation assayOrdered By: Alvin Crisostomo on 05-08-2024 INR Coag (PPP) [Relative time] INR in Platelet poor plasma by Coagulation assay [facility] Comment on above: INR Therapeutic Rang e [...] Lactate [Moles/Vol] 1.0 mmol/L Normal 0.5-2.2 [facility] Comment on above: Result Comment: PERF ORMED BY:[place] [address] [address] [place], [place] [phone] MEDICAL DIRECTORFRANCHESCA MAGALLON M.D. Performed By: #### H EPATIC, LACTIC ####[place] [address] [place] [address] [facility] Magnesiumon 05-08-2024 Magnesium [Mass/Vol] 1.7 mg/dL Low 1.9-2.7 [facility] Comment on above: Result Comment: PERF ORMED BY:[place] [address] [address] [place], [place] [phone] MEDICAL DIRECTORFRANCHESCA MAGALLON M.D. Performed By: #### C BCNO, BMP, MG ####[place] [address] [place] [address] [facility] Natriuretic peptide B [Mass/ Vol]Ordered By: Alvin Crisostomo on 05-08-2024 Natriuretic peptide B (Bld) [Mass/Vol] BNP ser/plas High 5-100 [facility] No Panel InformationOrdered By: Skyler Zhannawade on 05-08-2024 Blood Gas Liter Flow 6 L/min [facility] Prothrombin Time INRon 05-08 INR Coag (PPP) [Relative time] 1.2 {INR} Normal [facility] Comment on above: Result Comment: [...] with mechanical heart valves: 3 - 4.5PERFORMED BY:[place] [address] [address] [place], [place] [phone] MEDICAL DIRECTORFRANCHESCA MAGALLON M.D. Performed By: #### P T ####[place] [address] [place] [address] [facility] PT Coag (PPP) [Time] 14.3 s High 9.0-12.9 [facility] Comment on above: Result Comment: A he matocrit value greater than 55% may lead to inaccurate results in coagulation testing. Patients having hematocrit values >55% require a special collection tube for coagulation studies. Please contact the laboratory at [phone] for redraw instructions. Performed By: #### P T ####[address] [address] [facility] Prothrombin time (PT)Ordered By: Alvin Crisostomo on 05-08-2024 PT Coag (PPP) [Time] Prothrombin time (PT) High 9.0- 12.9 [facility] Comment on above: A hematocrit value g reater than 55% may lead to inaccurate results in coagulation testing. Patients having hematocrit values >55% require a special collection tube for coagulation studies. Please contact the laboratory at [phone] for redraw instructions. Serum or plasma non-glucuron idated bilirubin measurement (mass/volume)Ordered By: Alvin Crisostomo on 05-08-2024 Bilirubin.indirect [Mass/Vol] Serum or plasma non-glucuronidated bilirubin measurement (mass/volume) [facility] Troponin I High Sensitivityo n 05-08-2024 Troponin I High Sensitivity 68.6 pg/mL Off scale high 0.0-20.0 [facility] Comment on above: Result Comment: Crit ical Result : Called to and read back by: GONZÁLEZ CUTLER at: 05/08/2024 04:40:12 by:[id number] BY:[address] [phone] MEDICAL DIRECTORFRANCHESCA MAGALLON M.D. Performed By: #### H S TROP, BNP ####[place] [id number] [facility] Troponin I.cardiac [Mass/vol ume] in Serum or Plasma by Detection limit <= 0.01 ng/Ordered By: Alvin Crisostomo on 05-08-2024 Troponin I.cardiac DL <= 0.01 ng/mL [Mass/Vol] Troponin I.cardiac [Mass/volume] in Serum or Plasma by Detection limit <= 0.01 ng/ Critically high 0.0-20.0 [facility] Comment on above: Critical Result : Ca lled to and read back by: GONZÁLEZ CUTLER at: 05/08/2024 04:40:12 by:[id number] X-ray reportOrdered By: Allan Acuna on 05-08-2024 Study report [facility] Main [place] [address] [place] [id number] XRay Report Signed Patient: Juan Simon MR#: [id number] : 1955 Acct:[id number] Age/Sex: 68 / M ADM Date: 4 Loc: Room: 9I4850-6 Type: ADM IN Attending Dr: Skyler Sanchez [...] Cliff Acuna M.D.05/08/2024 10:25 AM Dictation Location: Segment-PC-20 Transcribed By: [facility] 05/08/24 1025 Dictated By: Cliff Acuna DO 05/08/24 1024 Signed By: 05/08/24 1025 [facility] XR chest 1V portableon 05-08 XR chest 1V portable Normal [facility] Basic Metabolic Panelon 04-11 Anion gap [Moles/Vol] 10.8 mmol/L Normal 6.0-15.0 [facility] Comment on above: Performed By: #### B MP ####[place] [address] [place] [address] [place] Calcium [Mass/Vol] 8.4 mg/dL Low 8.6-10.3 [facility] Comment on above: Performed By: #### B MP ####[facility] [place] [address] [place] Chloride [Moles/Vol] 100 mmol/L Normal 98-107 [facility] Comment on above: Performed By: #### B MP ####[facility] [place] [address] [facility] CO2 [Moles/Vol] 29.3 mmol/L Normal 21.0-31.0 [facility] Comment on above: Performed By: #### B MP ####[address] [address] [facility] Creatinine [Mass/Vol] 0.64 mg/dL Low 0.70-1.30 [facility] Comment on above: Performed By: #### B MP ####[place] [address] [facility] Creatinine Clr Calc Pharmacy 94.80 Normal [facility] Comment on above: Result Comment: PERF ORMED BY:[address] [place], [place] [phone] MEDICAL DIRECTORFRANCHESCA MAGALLON M.D. Performed By: #### B MP ####[place] [id number] [facility] GFR/1.73 sq M.predicted MDRD (S/P/Bld) [Vol rate/Area] mL/min/{1.73_m2} Normal [facility] Comment on above: Performed By: #### B MP ####[place] [id number] [facility] Glucose [Mass/Vol] 101 mg/dL High 70-100 [facility] Comment on above: Result Comment: [employer] Glucose Reference Range is dependent on time and content of last meal. Glucose of more than 200 mg/dL in a nonstressed, ambulatory subject supports the diagnosis of Diabetes Mellitus. ADA recommended reference range Performed By: #### B MP ####[place] [id number] [facility] Potassium [Moles/Vol] 4.1 mmol/L Normal 3.5-5.1 [facility] Comment on above: Performed By: #### B MP ####[place] [address] [facility] Sodium [Moles/Vol] 136 mmol/L Normal 136-145 [facility] Comment on above: Performed By: #### B MP ####[place] [address] [facility] Urea nitrogen [Mass/Vol] 11 mg/dL Normal 7-25 [facility] Comment on above: Performed By: #### B MP ####[address] [address] [facility] Magnesiumon 05-07-2024 Magnesium [Mass/Vol] 1.5 mg/dL Low 1.9-2.7 [facility] Comment on above: Order Comment: Comme nt add on Result Comment: PERF ORMED BY:[address] [place], [place] [phone] MEDICAL DIRECTORFRANCHESCA MAGALLON M.D. Performed By: #### M G ####[address] [address] [facility] Basic Metabolic Panelon 04-11 Anion gap [Moles/Vol] 9.6 mmol/L Normal 6.0-15.0 [facility] Comment on above: Performed By: #### B MP ####[place] [address] [facility] Calcium [Mass/Vol] 8.3 mg/dL Low 8.6-10.3 [facility] Comment on above: Performed By: #### B MP ####[address] [address] [facility] Chloride [Moles/Vol] 102 mmol/L Normal 98-107 [facility] Comment on above: Performed By: #### B MP ####[address] [address] [facility] CO2 [Moles/Vol] 29.3 mmol/L Normal 21.0-31.0 [facility] Comment on above: Performed By: #### B MP ####[address] [address] [facility] Creatinine [Mass/Vol] 0.68 mg/dL Low 0.70-1.30 [facility] Comment on above: Performed By: #### B MP ####[address] [address] [facility] Creatinine Clr Calc Pharmacy 94.70 Normal [facility] Comment on above: Result Comment: PERF ORMED BY:[address] [place], [place] [phone] MEDICAL DIRECTORFRANCHESCA MAGALLON M.D. Performed By: #### B MP ####[place] [id number] [facility] GFR/1.73 sq M.predicted MDRD (S/P/Bld) [Vol rate/Area] mL/min/{1.73_m2} Normal [facility] Comment on above: Performed By: #### B MP ####[place] [id number] [facility] Glucose [Mass/Vol] 95 mg/dL Normal 70-100 [facility] Comment on above: Result Comment: [facility] Glucose Reference Range is dependent on time and content of last meal. Glucose of more than 200 mg/dL in a nonstressed, ambulatory subject supports the diagnosis of Diabetes Mellitus. ADA recommended reference range Performed By: #### B MP ####[place] [id number] [facility] Potassium [Moles/Vol] 3.9 mmol/L Normal 3.5-5.1 [facility] Comment on above: Performed By: #### B MP ####[place] [address] [facility] Sodium [Moles/Vol] 137 mmol/L Normal 136-145 [facility] Comment on above: Performed By: #### B MP ####[place] [address] [facility] Urea nitrogen [Mass/Vol] 14 mg/dL Normal 7-25 [facility] Comment on above: Performed By: #### B MP ####[place] [id number] [facility] Basic Metabolic Panelon 12-2 Anion gap [Moles/Vol] 8.2 mmol/L Normal 6.0-15.0 [facility] Comment on above: Performed By: #### B MP, CBCNO ####[place] [id number] [facility] Calcium [Mass/Vol] 8.1 mg/dL Low 8.6-10.3 [facility] Comment on above: Performed By: #### B PATRICIA, CBCNO ####[place] [id number] [facility] Chloride [Moles/Vol] 104 mmol/L Normal 98-107 [facility] Comment on above: Performed By: #### B MP, CBCNO ####[place] [id number] [facility] CO2 [Moles/Vol] 26.9 mmol/L Normal 21.0-31.0 [facility] Comment on above: Performed By: #### B PATRICIA, CBCNO ####[place] [id number] [facility] Creatinine [Mass/Vol] 0.64 mg/dL Low 0.70-1.30 [facility] Comment on above: Performed By: #### B PATRICIA, CBCNO ####[address] Creatinine Clr Calc Pharmacy 93.68 Normal [facility] Comment on above: Result Comment: PERF ORMED BY:[address] [place], [place] [phone] MEDICAL DIRECTORFRANCHESCA MAGALLON M.D. Performed By: #### B PATRICIA, CBCNO ####[place] [id number] [facility] GFR/1.73 sq M.predicted MDRD (S/P/Bld) [Vol rate/Area] mL/min/{1.73_m2} Normal [facility] Comment on above: Performed By: #### B MP, CBCNO ####[place] [id number] [facility] Glucose [Mass/Vol] 103 mg/dL High 70-100 [facility] Comment on above: Result Comment: [employer] Glucose Reference Range is dependent on time and content of last meal. Glucose of more than 200 mg/dL in a nonstressed, ambulatory subject supports the diagnosis of Diabetes Mellitus. ADA recommended reference range Performed By: #### B MP, CBCNO ####[place] [id number] [facility] Potassium [Moles/Vol] 4.1 mmol/L Normal 3.5-5.1 [facility] Comment on above: Result Comment: Hemo lysis is present at a level that could interfere with the result. Contact lab if redraw is required Performed By: #### B PATRICIA, CBCNO ####[place] [id number] [facility] Sodium [Moles/Vol] 135 mmol/L Low 136-145 [facility] Comment on above: Performed By: #### B PATRICIA, CBCNO ####[address] Urea nitrogen [Mass/Vol] 16 mg/dL Normal 7-25 [facility] Comment on above: Performed By: #### B PATRICIA, CBCNO ####[place] [id number] [facility] Blood Cultureon 05-05-2024 Bacteria identified Cx Nom (Bld) NO GROWTH 5 DAYS PERFORMED BY: [place] [address] PATHOLOGIST [employer] FRANCHESCA MAGALLON M.D. Normal [facility] Comment on above: Performed By: #### C UBLD ####[place] [id number] [facility] Bacteria identified Cx Nom (Bld) NO GROWTH 5 DAYS PERFORMED BY: [place] [address] PATHOLOGIST [employer] FRANCHESCA MAGALLON M.D. Normal [facility] Comment on above: Performed By: #### C UBLD ####[place] [id number] [facility] Hemogram CBC Without Diffon 05-05-2024 Erythrocyte distribution width (RBC) [Ratio] 15.0 % High 12.0-14.8 [facility] Comment on above: Performed By: #### B MP, CBCNO ####[place] [id number] [facility] Hematocrit (Bld) [Volume fraction] 36.5 % Low 38.8-50.0 [facility] Comment on above: Performed By: #### B MP, CBCNO ####[place] [id number] [facility] Hemoglobin (Bld) [Mass/Vol] 12.4 g/dL Low 13.0-17.0 [facility] Comment on above: Performed By: #### B MP, CBCNO ####[place] [id number] [facility] MCH (RBC) [Entitic mass] 32.2 pg Normal 27.5-35.2 [facility] Comment on above: Performed By: #### B MP, CBCNO ####[place] [id number] [facility] MCV (RBC) [Entitic vol] 95.0 fL Normal 83.5-101 [facility] Comment on above: Performed By: #### B MP, CBCNO ####[place] [id number] [facility] Mean Corpuscular HGB Conc 33.9 g/dL Normal 32.5-35.6 [facility] Comment on above: Performed By: #### B PATRICIA, CBCNO ####[place] [id number] [facility] Platelet mean volume (Bld) [Entitic vol] 7.1 fL Normal 6.6-10.1 [facility] Comment on above: Result Comment: PERF ORMED BY:[address] [place], [place] [phone] MEDICAL DIRECTORFRANCHECSA MAGALLON M.D. Performed By: #### B MP, CBCNO ####[place] [id number] [facility] Platelets (Bld) [#/Vol] 195 10*3/uL Normal 150-450 [facility] Comment on above: Performed By: #### B MP, CBCNO ####[place] [address] RBC (Bld) [#/Vol] 3.84 10*6/uL Low 3.90-5.60 [facility] Comment on above: Performed By: #### B PATRICIA, CBCNO ####[address] WBC (Bld) [#/Vol] 11.0 10*3/uL High 4.1-10.5 [facility] Comment on above: Performed By: #### B PATRICIA, CBCNO ####[address] Laboratory - Microbiology an d Antimicrobial susceptibilityOrdered By: Skyler Sanchez on 05-05-2024 Bacteria identified Cx Nom (Bld) NO GROWTH 5 DAYS [facility] Bacteria identified Cx Nom (Bld) NO GROWTH 5 DAYS [facility] Basic Metabolic Panelon 04-11 Anion gap [Moles/Vol] 9.0 mmol/L Normal 6.0-15.0 [facility] Comment on above: Performed By: #### B PATRICIA, CBCNO ####[address] Calcium [Mass/Vol] 7.8 mg/dL Low 8.6-10.3 [facility] Comment on above: Performed By: #### B PATRICIA, CBCNO ####[address] Chloride [Moles/Vol] 105 mmol/L Normal 98-107 [facility] Comment on above: Performed By: #### B PATRICIA, CBCNO ####[place] [id number] [facility] CO2 [Moles/Vol] 24.0 mmol/L Normal 21.0-31.0 [facility] Comment on above: Performed By: #### B PATRICIA, CBCNO ####[place] [id number] [facility] Creatinine [Mass/Vol] 0.80 mg/dL Normal 0.70-1.30 [facility] Comment on above: Performed By: #### B PATRICIA, CBCNO ####[facility] [place] [address] [facility] Creatinine Clr Calc Pharmacy 91.55 Normal [facility] Comment on above: Result Comment: PERF ORMED BY:[place] [address] [address] [place], [place] [phone] MEDICAL TREAS MAGALLON M.D. Performed By: #### B PATRICIA, CBCNO ####[place] [address] [place] [address] [place] GFR/1.73 sq M.predicted MDRD (S/P/Bld) [Vol rate/Area] mL/min/{1.73_m2} Normal [facility] Comment on above: Performed By: #### B PATRICIA, CBCNO ####[place] [address] [place] [address] [facility] Glucose [Mass/Vol] 104 mg/dL High 70-100 [facility] Comment on above: Result Comment: [employer] Glucose Reference Range is dependent on time and content of last meal. Glucose of more than 200 mg/dL in a nonstressed, ambulatory subject supports the diagnosis of Diabetes Mellitus. ADA recommended reference range Performed By: #### B PATRICIA CBCNO ####[facility] [place] [address] [facility] Potassium [Moles/Vol] 4.0 mmol/L Normal 3.5-5.1 [facility] Comment on above: Performed By: #### B PATRICIA CBCNO ####[address] [address] [facility] Sodium [Moles/Vol] 134 mmol/L Low 136-145 [facility] Comment on above: Performed By: #### B PATRICIA, CBCNO ####[facility] [place] [address] [facility] Urea nitrogen [Mass/Vol] 20 mg/dL Normal 7-25 [facility] Comment on above: Performed By: #### B PATRICIA, CBCNO ####[facility] Hemogram CBC Without Diffon 05-04-2024 Erythrocyte distribution width (RBC) [Ratio] 15.3 % High 12.0-14.8 [facility] Comment on above: Performed By: #### B PATRICIA, CBCNO ####[address] Hematocrit (Bld) [Volume fraction] 35.7 % Low 38.8-50.0 [facility] Comment on above: Performed By: #### B MP, CBCNO ####[address] Hemoglobin (Bld) [Mass/Vol] 11.9 g/dL Low 13.0-17.0 [facility] Comment on above: Performed By: #### B PATRICIA, CBCNO ####[address] MCH (RBC) [Entitic mass] 32.1 pg Normal 27.5-35.2 [facility] Comment on above: Performed By: #### B PATRICIA, CBCNO ####[address] MCV (RBC) [Entitic vol] 96.9 fL Normal 83.5-101 [facility] Comment on above: Performed By: #### B PATRICIA, CBCNO ####[address] Mean Corpuscular HGB Conc 33.2 g/dL Normal 32.5-35.6 [facility] Comment on above: Performed By: #### B MP, CBCNO ####[address] Platelet mean volume (Bld) [Entitic vol] 7.3 fL Normal 6.6-10.1 [facility] Comment on above: Result Comment: PERF ORMED BY:[address] [place], [place] [phone] MEDICAL DIRECTORFRANCHESCA MAGALLON M.D. Performed By: #### B MP, CBCNO ####[address] Platelets (Bld) [#/Vol] 155 10*3/uL Normal 150-450 [facility] Comment on above: Performed By: #### B PATRICIA, CBCNO ####[address] RBC (Bld) [#/Vol] 3.69 10*6/uL Low 3.90-5.60 [facility] Comment on above: Performed By: #### B PATRICIA, CBCNO ####[address] WBC (Bld) [#/Vol] 12.0 10*3/uL High 4.1-10.5 [facility] Comment on above: Performed By: #### B PATRICIA, CBCNO ####[address] Basic Metabolic Panelon 12-2 Anion gap [Moles/Vol] 9.7 mmol/L Normal 6.0-15.0 [facility] Comment on above: Performed By: #### C BCNO, LIPID, BMP, MG ####[address] Calcium [Mass/Vol] 7.3 mg/dL Significant change down 8.6-10.3 [facility] Comment on above: Performed By: #### C BCNO, LIPID, BMP, MG ####[address] Chloride [Moles/Vol] 105 mmol/L Normal 98-107 [facility] Comment on above: Performed By: #### C BCNO, LIPID, BMP, MG ####[address] CO2 [Moles/Vol] 24.7 mmol/L Normal 21.0-31.0 [facility] Comment on above: Performed By: #### C BCNO, LIPID, BMP, MG ####[address] Creatinine [Mass/Vol] 0.79 mg/dL Normal 0.70-1.30 [facility] Comment on above: Performed By: #### C BCNO, LIPID, BMP, MG ####[place] [address] Creatinine Clr Calc Pharmacy 91.55 Normal [facility] Comment on above: Performed By: #### C BCNO, LIPID, BMP, MG ####[place] [address] GFR/1.73 sq M.predicted MDRD (S/P/Bld) [Vol rate/Area] mL/min/{1.73_m2} Normal [facility] Comment on above: Performed By: #### C BCNO, LIPID, BMP, MG ####[address] Glucose [Mass/Vol] 103 mg/dL High 70-100 [facility] Comment on above: Result Comment: [facility] Glucose Reference Range is dependent on time and content of last meal. Glucose of more than 200 mg/dL in a nonstressed, ambulatory subject supports the diagnosis of Diabetes Mellitus. ADA recommended reference range Performed By: #### C BCNO, LIPID, BMP, MG ####[address] Potassium [Moles/Vol] 3.4 mmol/L Low 3.5-5.1 [facility] Comment on above: Performed By: #### C BCNO, LIPID, BMP, MG ####[address] Sodium [Moles/Vol] 136 mmol/L Normal 136-145 [facility] Comment on above: Performed By: #### C BCNO, LIPID, BMP, MG ####[address] Urea nitrogen [Mass/Vol] 26 mg/dL High 7-25 [facility] Comment on above: Performed By: #### C BCNO, LIPID, BMP, MG ####[address] [address] [facility] Blood Cultureon 05-03-2024 Bacteria identified Cx Nom (Bld) NO GROWTH 5 DAYS PERFORMED BY: [facility] [address] [place] [address] PATHOLOGIST [employer] FRANCHESCA Paz [facility] Comment on above: Performed By: #### C UBLD ####[place] [id number] [facility] Bacteria identified Cx Nom (Bld) NO GROWTH 5 DAYS PERFORMED BY: [facility] [address] [place] [address] PATHOLOGIST [employer] FRANCHESCA MAGALLON M.D. Normal [facility] Comment on above: Performed By: #### C UBLD ####[place] [id number] [facility] CT abdomen pelvis w conon CT abdomen pelvis w con Normal T [facility] Cholesterol [Mass/volume] in Serum or PlasmaOrdered By: Skyler Sanchez on 05-03-2024 Cholesterol [Mass/Vol] Cholesterol [Mass /volume] in Serum or Plasma Low 140-200 [facility] Comment on above: Chol less than 200 m g/dl low riskChol 201-239 mg/dl borderline riskChol 240 mg/dl and greater high risk Cholesterol in HDL [Mass/vol ume] in Serum or PlasmaOrdered By: Skyler Sanchez on 05-03-2024 Cholesterol in HDL [Mass/Vol] Serum or plasma high density lipoprotein (HDL) cholesterol measurement Low 23-92 [facility] Comment on above: HDL CHOL ATP-III CLA SSIFICATION Cardiovascular RiskHDL > or equal to 60 mg/dL LOWHDL < 40 mg/dL HIGH Cholesterol in LDL Calc [Mas s/Vol]Ordered By: Skyler Sanchez on 05-03-2024 Cholesterol in LDL [Mass/Vol] Cholesterol in LDL [Mass/volume] in Serum or Plasma by calculation 0-100 [facility] Comment on above: LDL ATP III CLASSIFI CATIONLDL less than 100 mg/dL OptimalLDL 100-129 mg/dL Near or above optimalLDL 130-159 mg/dL Borderline highLDL 160-189 mg/dL HighLDL greater than 189 mg/dL Very high Cholesterol in VLDL Calc [Ma ss/Vol]Ordered By: Skyler Sanchez on 05-03-2024 Cholesterol in VLDL [Mass/Vol] Cholesterol in VLDL [Mass/volume] in Serum or Plasma by calculation [facility] ECH echo transthoracicon ECH echo transthoracic Normal Th e [facility] Hemogram CBC Without Diffon 05-03-2024 Erythrocyte distribution width (RBC) [Ratio] 14.8 % Normal 12.0-14.8 [facility] Comment on above: Performed By: #### C BCNO, LIPID, BMP, MG ####[address] Hematocrit (Bld) [Volume fraction] 32.4 % Significant change down 38.8-50.0 [facility] Comment on above: Performed By: #### C BCNO, LIPID, BMP, MG ####[address] Hemoglobin (Bld) [Mass/Vol] 10.9 g/dL Low 13.0-17.0 [facility] Comment on above: Performed By: #### C BCNO, LIPID, BMP, MG ####[address] MCH (RBC) [Entitic mass] 32.2 pg Normal 27.5-35.2 [facility] Comment on above: Performed By: #### C BCNO, LIPID, BMP, MG ####[address] MCV (RBC) [Entitic vol] 95.3 fL Normal 83.5-101 [facility] Comment on above: Performed By: #### C BCNO, LIPID, BMP, MG ####[address] Mean Corpuscular HGB Conc 33.8 g/dL Normal 32.5-35.6 [facility] Comment on above: Performed By: #### C BCNO, LIPID, BMP, MG ####[place] [address] [place] [id number] [facility] Platelet mean volume (Bld) [Entitic vol] 7.1 fL Normal 6.6-10.1 [facility] Comment on above: Result Comment: PERF ORMED BY:[address] [place], [place] [phone] MEDICAL DIRECTORFRANCHESCA MAGALLON M.D. Performed By: #### C BCNO, LIPID, BMP, MG ####[address] Platelets (Bld) [#/Vol] 144 10*3/uL Low 150-450 [facility] Comment on above: Performed By: #### C BCNO, LIPID, BMP, MG ####[address] RBC (Bld) [#/Vol] 3.40 10*6/uL Low 3.90-5.60 [facility] Comment on above: Performed By: #### C BCNO, LIPID, BMP, MG ####[address] WBC (Bld) [#/Vol] 11.4 10*3/uL High 4.1-10.5 [facility] Comment on above: Performed By: #### C BCNO, LIPID, BMP, MG ####[address] Laboratory - Microbiology an d Antimicrobial susceptibilityOrdered By: Moris Younger on 05-03-2024 Bacteria identified Cx Nom (Bld) NO GROWTH 5 DAYS [facility] Bacteria identified Cx Nom (Bld) NO GROWTH 5 DAYS [facility] Lipid Panelon 05-03-2024 Cholesterol [Mass/Vol] 82 mg/dL Low 140-200 [facility] Comment on above: Result Comment: Chol less than 200 mg/dl low risk Chol 201-239 mg/dl borderline risk Chol 240 mg/dl and greater high risk Performed By: #### C BCNO, LIPID, BMP, MG ####[address] [place] [address] [facility] Cholesterol in HDL [Mass/Vol] 15 mg/dL Low 23-92 [facility] Comment on above: Result Comment: HDL CHOL ATP-III CLASSIFICATION Cardiovascular Risk HDL > or equal to 60 mg/dL LOW HDL < 40 mg/dL HIGH Performed By: #### C BCNO, LIPID, BMP, MG ####[address] Cholesterol.total/Holli sterol in HDL [Mass ratio] 5.5 {ratio} Normal <5.0 [facility] Comment on above: Result Comment: PERF ORMED BY:[address] [place], [place] [phone] MEDICAL DIRECTORFRANCHESCA MAGALLON M.D. Performed By: #### C BCNO, LIPID, BMP, MG ####[address] LDL Cholesterol,Calculated 46 mg/dL Normal 0-100 [facility] Comment on above: Result Comment: LDL ATP III CLASSIFICATION LDL less than 100 mg/dL Optimal LDL 100-129 mg/dL Near or above optimal LDL 130-159 mg/dL Borderline high LDL 160-189 mg/dL High LDL greater than 189 mg/dL Very high Performed By: #### C BCNO, LIPID, BMP, MG ####[place] [id number] [facility] Triglyceride w/Reflex 104 mg/dL Normal 0-149 [facility] Comment on above: Result Comment: TRIG ATP III CLASSIFICATION TRIG less than 150 mg/dL Normal TRIG 150-199 mg/dL Borderline high TRIG 200-500 mg/dL High TRIG greater than 500 mg/dL Very high Standard traceable to the Center for Disease Conrtrol and Prevention (CDC) test method. Performed By: #### C BCNO, LIPID, BMP, MG ####[place] [id number] [facility] VLDL CHOLESTEROL 20 mg/dL Normal [facility] Comment on above: Performed By: #### C BCNO, LIPID, BMP, MG ####[place] [id number] [facility] Magnesiumon 05-03-2024 Magnesium [Mass/Vol] 1.8 mg/dL Low 1.9-2.7 [facility] Comment on above: Performed By: #### C BCNO, LIPID, BMP, MG ####[address] Serum or plasma total choles terol/high density lipoprotein (HDL) cholesterol mass ratOrdered By: Skyler Sanchez on 05-03-2024 Cholesterol.total/Holli sterol in HDL [Mass ratio] Serum or plasma total cholesterol/high density lipoprotein (HDL) cholesterol mass rat <5.0 [facility] Triglyceride [Mass/volume] i n Serum or PlasmaOrdered By: Skyler Sanchez on 05-03-2024 Triglyceride [Mass/Vol] Triglyceride [Ma ss/volume] in Serum or Plasma 0-149 [facility] Comment on above: TRIG ATP III CLASSIF ICATIONTRIG less than 150 mg/dL NormalTRIG 150-199 mg/dL Borderline highTRIG 200-500 mg/dL High TRIG greater than 500 mg/dL Very highStandard traceable to the Center for Disease Conrtrol and Prevention (CDC) test method. Troponin I High Sensitivityo n 05-03-2024 Troponin I High Sensitivity 311.0 pg/mL Off scale high 0.0-20.0 [facility] Comment on above: Result Comment: Crit ical Result : Called to and read back by: SOLIS PETIT at: 05/03/2024 05:32:46 by:[id number] BY:[place] [address] [place], [place] [phone] MEDICAL DIRECTORFRANCHESCA MAGALLON M.D. Performed By: #### H S TROP ####[place] [id number] [facility] Ammoniaon 05-02-2024 Ammonia (P) [Moles/Vol] 24 umol/L Normal 11-35 [facility] Comment on above: Result Comment: PERF ORMED BY:[place] [address] [address] [place], [place] [phone] MEDICAL DIRECTORFRANCHESCA MAGALLON M.D. Performed By: #### L ACTIC, CK, ETOH, CMP, PTT, CUBLD, HS TROP, TSH3, PT, AMM, SCAN CBC ####[facility] [id number] [place] [address] [facility] Ammonia [Moles/volume] in Pl asmaOrdered By: Ralf White on 05-02-2024 Ammonia (P) [Moles/Vol] Ammonia [Moles/v olume] in Plasma [facility] Amphetamine Screen Ql (U)Ord ered By: Ralf White on 05-02-2024 Amphetamines Ql (U) Amphetamines screen High Negativ e [facility] Appearance of UrineOrdered B y: Ralf White on 05-02-2024 Appearance (U) Urine appearance Abnormal Clear [facility] Arterial Blood Gason 024 ABG Base Excess -5.6 mmol/L Low -3.0-3.0 [facility] Comment on above: Performed By: #### A BG ####Point of Care testing, ABG Frac Inspired O2 21 % Normal [facility] Comment on above: Performed By: #### A BG ####Point of Care testing, ABG Oxygen Content 7.1 mmol/L Normal 6.6-9.7 [facility] Comment on above: Performed By: #### A BG ####Point of Care testing, ABG Oxygen Saturation 93.5 % Low 95.0-100.0 [facility] Comment on above: Performed By: #### A BG ####Point of Care testing, ABG PCO2 30.1 mm[Hg] Low 35.0-45.0 [facility] Comment on above: Performed By: #### A BG ####Point of Care testing, ABG PH 7.40 Normal 7.35-7.45 [facility] Comment on above: Performed By: #### A BG ####Point of Care testing, ABG PO2 68.0 mm[Hg] Low 80.0-100.0 [facility] Comment on above: Performed By: #### A BG ####Point of Care testing, CO2 [Moles/Vol] 19.1 mmol/L Low 23.0-27.0 [facility] Comment on above: Performed By: #### A BG ####Point of Care testing, HCO3 (Bld) [Moles/Vol] 18.1 mmol/L Low 23.0-29.0 [facility] Comment on above: Performed By: #### A BG ####Point of Care testing, Respiratory Critical Normal [facility] Comment on above: Result Comment: Crit ical Value called on: 05/02/2024 at 13:43PERFORMED BY:[place] [address] [place], [place] [phone] MEDICAL DIRECTORFRANCHESCA MAGALLON M.D. Performed By: #### A BG ####Point of Care testing, VBG Draw Site Left Radial Normal [facility] Comment on above: Performed By: #### A BG ####Point of Care testing, Bacteria [Presence] in Urine by AutomatedOrdered By: Ralf White on 05-02-2024 Bacteria Auto Ql (U) Bacteria [Presence] in Urine by Automated High None Seen [facility] Barbiturates [Presence] in U rine by Screen methodOrdered By: Ralf White on 05-02-2024 Barbiturates Screen Ql (U) Barbiturates [Presence] in Urine by Screen method Negative [facility] Benzodiazepines Screen Ql (U )Ordered By: Ralf White on 05-02-2024 Benzodiazepines Ql (U) Benzodiazepines [ Presence] in Urine by Screen method Negative [facility] Benzoylecgonine [Presence] i n Urine by Screen methodOrdered By: Ralf White on 05-02-2024 Benzoylecgonine Screen Ql (U) Benzoylecgonine [Presence] in Urine by Screen method Negative [facility] Bilirubin Test strip Ql (U)O rdered By: Ralf White on 05-02-2024 Bilirubin Ql (U) Bilirubin.total [Pre sence] in Urine by Test strip Negative [facility] BioFire Not Detectedon 05-02 BioFire Not Detected Not detected Normal Not Detecte [facility] Comment on above: Result Comment: This is a duplicate RP2.1 COVID (PCR) result to be used for statistical tracking purpose only.PERFORMED BY:[address], [place] [phone] MEDICAL DIRECTORFRANCHESCA MAGALLON M.D. Performed By: #### U RDS, CUU, RESP PANEL UPP., ADDONUAPLUS, BIOFIRECOVNOTDE ####[address] Blood Cultureon 05-02-2024 Bacteria identified Cx Nom (Bld) Normal [facility] Comment on above: Performed By: #### L ACTIC, CK, ETOH, CMP, PTT, CUBLD, HS TROP, TSH3, PT, AMM, SCAN CBC ####[address] Bacteria identified Cx Nom (Bld) Normal [facility] Comment on above: Performed By: #### L ACTIC, CK, ETOH, CMP, PTT, CUBLD, HS TROP, TSH3, PT, AMM, SCAN CBC ####[address] Blood toxic granulation dete ction by light microscopyOrdered By: Ralf White on 05-02-2024 Toxic granules LM Ql (Bld) Blood toxic granulation detection by light microscopy [facility] CT head/brain wo conon 05-02 CT head/brain wo con Normal [facility] Cannabinoids [Presence] in U rine by Screen methodOrdered By: Ralf White on 05-02-2024 Cannabinoids Screen Ql (U) Cannabinoids [Presence] in Urine by Screen method Negative [facility] Comment on above: These are unconfirme d results and should not be used for legal purposes. Drug Cut-Off Concentration: AMPH 1000 ng/mL JULIETA 200 ng/mL JORGE 200 ng/mL COCM 300 ng/mL OP 300 ng/mL PCP 25 ng/mL THC 20 ng/mL Color Auto (U)Ordered By: Darryn White on 05-02-2024 Color (U) Color of Urine by Auto Yellow Fi [facility] Comprehensive Metabolic Pane raudel 05-02-2024 Albumin [Mass/Vol] 3.6 g/dL Normal 3.5-5.7 [facility] Comment on above: Performed By: #### L ACTIC, CK, ETOH, CMP, PTT, CUBLD, HS TROP, TSH3, PT, AMM, SCAN CBC ####[address] Albumin/Globulin [Mass ratio] 1.2 {ratio} Normal [facility] Comment on above: Performed By: #### L ACTIC, CK, ETOH, CMP, PTT, CUBLD, HS TROP, TSH3, PT, AMM, SCAN CBC ####[address] ALP [Catalytic activity/Vol] 123 U/L High 34-104 [facility] Comment on above: Performed By: #### L ACTIC, CK, ETOH, CMP, PTT, CUBLD, HS TROP, TSH3, PT, AMM, SCAN CBC ####[address] ALT [Catalytic activity/Vol] 33 U/L Normal 7-52 [facility] Comment on above: Performed By: #### L ACTIC, CK, ETOH, CMP, PTT, CUBLD, HS TROP, TSH3, PT, AMM, SCAN CBC ####[address] Anion gap [Moles/Vol] 16.1 mmol/L High 6.0-15.0 [facility] Comment on above: Performed By: #### L ACTIC, CK, ETOH, CMP, PTT, CUBLD, HS TROP, TSH3, PT, AMM, SCAN CBC ####[address] AST [Catalytic activity/Vol] 38 U/L Normal 13-39 [facility] Comment on above: Performed By: #### L ACTIC, CK, ETOH, CMP, PTT, CUBLD, HS TROP, TSH3, PT, AMM, SCAN CBC ####[address] Bilirubin [Mass/Vol] 1.5 mg/dL High 0.3-1.0 [facility] Comment on above: Result Comment: Samp les from patients who have taken Naproxen have shown spurious elevation in Total Bilirubin levels. A metabolite of Naproxen, O-desmethylnaproxen, has been shown to interfere with the Jendrassik-Grof method for measuring Total Bilirubin. Performed By: #### L ACTIC, CK, ETOH, CMP, PTT, CUBLD, HS TROP, TSH3, PT, AMM, SCAN CBC ####[address] Calcium [Mass/Vol] 8.9 mg/dL Normal 8.6-10.3 [facility] Comment on above: Performed By: #### L ACTIC, CK, ETOH, CMP, PTT, CUBLD, HS TROP, TSH3, PT, AMM, SCAN CBC ####[address] Chloride [Moles/Vol] 98 mmol/L Normal 98-107 [facility] Comment on above: Performed By: #### L ACTIC, CK, ETOH, CMP, PTT, CUBLD, HS TROP, TSH3, PT, AMM, SCAN CBC ####[address] CO2 [Moles/Vol] 24.6 mmol/L Normal 21.0-31.0 [facility] Comment on above: Performed By: #### L ACTIC, CK, ETOH, CMP, PTT, CUBLD, HS TROP, TSH3, PT, AMM, SCAN CBC ####[address] Creatinine [Mass/Vol] 1.05 mg/dL Normal 0.70-1.30 [facility] Comment on above: Performed By: #### L ACTIC, CK, ETOH, CMP, PTT, CUBLD, HS TROP, TSH3, PT, AMM, SCAN CBC ####[address] [place] [address] [facility] Creatinine Clr Calc Pharmacy 70.22 Normal [facility] Comment on above: Performed By: #### L ACTIC, CK, ETOH, CMP, PTT, CUBLD, HS TROP, TSH3, PT, AMM, SCAN CBC ####[address] [address] [place] GFR/1.73 sq M.predicted MDRD (S/P/Bld) [Vol rate/Area] mL/min/{1.73_m2} Normal [facility] Comment on above: Performed By: #### L ACTIC, CK, ETOH, CMP, PTT, CUBLD, HS TROP, TSH3, PT, AMM, SCAN CBC ####[address] [place] [id number] [facility] Globulin (S) [Mass/Vol] 2.9 g/dL Normal T [facility] Comment on above: Performed By: #### L ACTIC, CK, ETOH, CMP, PTT, CUBLD, HS TROP, TSH3, PT, AMM, SCAN CBC ####[place] [id number] [facility] Glucose [Mass/Vol] 77 mg/dL Normal 70-100 [facility] Comment on above: Result Comment: [facility] Glucose Reference Range is dependent on time and content of last meal. Glucose of more than 200 mg/dL in a nonstressed, ambulatory subject supports the diagnosis of Diabetes Mellitus. ADA recommended reference range Performed By: #### L ACTIC, CK, ETOH, CMP, PTT, CUBLD, HS TROP, TSH3, PT, AMM, SCAN CBC ####[address] [address] [facility] Potassium [Moles/Vol] 3.7 mmol/L Normal 3.5-5.1 [facility] Comment on above: Performed By: #### L ACTIC, CK, ETOH, CMP, PTT, CUBLD, HS TROP, TSH3, PT, AMM, SCAN CBC ####[place] [id number] [facility] Protein [Mass/Vol] 6.5 g/dL Normal 6.4-8.9 [facility] Comment on above: Performed By: #### L ACTIC, CK, ETOH, CMP, PTT, CUBLD, HS TROP, TSH3, PT, AMM, SCAN CBC ####[address] Sodium [Moles/Vol] 135 mmol/L Low 136-145 [facility] Comment on above: Performed By: #### L ACTIC, CK, ETOH, CMP, PTT, CUBLD, HS TROP, TSH3, PT, AMM, SCAN CBC ####[address] Urea nitrogen [Mass/Vol] 26 mg/dL High 7-25 [facility] Comment on above: Performed By: #### L ACTIC, CK, ETOH, CMP, PTT, CUBLD, HS TROP, TSH3, PT, AMM, SCAN CBC ####[address] Creatine Kinaseon 05-02-2024 CK [Catalytic activity/Vol] 328 U/L High 30-223 [facility] Comment on above: Performed By: #### L ACTIC, CK, ETOH, CMP, PTT, CUBLD, HS TROP, TSH3, PT, AMM, SCAN CBC ####[address] Dipstick and Microscopicon 1 07-03-2023 Appearance (U) Cloudy Critically abnormal Clear [facility] Comment on above: Order Comment: Name Collection Type:: Clean-Voided Midstream Performed By: #### U RDS, CUU, RESP PANEL UPP., ADDONUAPLUS, BIOFIRECOVNOTDE ####[address] Bacteria,Urine 1+ High None Seen [facility] Comment on above: Order Comment: Name Collection Type:: Clean-Voided Midstream Performed By: #### U RDS, CUU, RESP PANEL UPP., ADDONUAPLUS, BIOFIRECOVNOTDE ####[address] Bilirubin,Urine Negative Normal Negative [facility] Comment on above: Order Comment: Name Collection Type:: Clean-Voided Midstream Performed By: #### U RDS, CUU, RESP PANEL UPP., ADDONUAPLUS, BIOFIRECOVNOTDE ####[address] Color (U) Yellow Normal Yellow [facility] Comment on above: Order Comment: Name Collection Type:: Clean-Voided Midstream Performed By: #### U RDS, CUU, RESP PANEL UPP., ADDONUAPLUS, BIOFIRECOVNOTDE ####[address] Glucose Ql (U) Normal Normal Normal [facility] Comment on above: Order Comment: Name Collection Type:: Clean-Voided Midstream Performed By: #### U RDS, CUU, RESP PANEL UPP., ADDONUAPLUS, BIOFIRECOVNOTDE ####[address] Hyaline Casts,Urine None Normal 0-8 [facility] Comment on above: Order Comment: Name Collection Type:: Clean-Voided Midstream Performed By: #### U RDS, CUU, RESP PANEL UPP., ADDONUAPLUS, BIOFIRECOVNOTDE ####[address] Ketones Ql (U) 2+ High Negative [facility] Comment on above: Order Comment: Name Collection Type:: Clean-Voided Midstream Performed By: #### U RDS, CUU, RESP PANEL UPP., ADDONUAPLUS, BIOFIRECOVNOTDE ####[address] Leukocyte esterase Test strip Ql (U) 4+ High Negative [facility] Comment on above: Order Comment: Name Collection Type:: Clean-Voided Midstream Performed By: #### U RDS, CUU, RESP PANEL UPP., ADDONUAPLUS, BIOFIRECOVNOTDE ####[place] [id number] [facility] Mucus,Urine 1+ Critically abnormal [facility] Comment on above: Order Comment: Name Collection Type:: Clean-Voided Midstream Result Comment: PERF ORMED BY:[address] [address] [address] [place], [place] [phone] MEDICAL DIRECTORCHEROKEE MEDICAL CENTER Cassandra Performed By: #### U RDS, CUU, RESP PANEL UPP., ADDONUAPLUS, BIOFIRECOVNOTDE ####[address] Nitrite,Urine Negative Normal Negative [facility] Comment on above: Order Comment: Name Collection Type:: Clean-Voided Midstream Performed By: #### U RDS, CUU, RESP PANEL UPP., ADDONUAPLUS, BIOFIRECOVNOTDE ####[address] Occult Blood,Urine 2+ High Negative [facility] Comment on above: Order Comment: Name Collection Type:: Clean-Voided Midstream Result Comment: PERF ORMED BY:[address] [place]UIRRECL[place], [place] [id number] MEDICAL DIRECTORCHEROKEE MEDICAL CENTER Cassandra Performed By: #### U RDS, CUU, RESP PANEL UPP., ADDONUAPLUS, BIOFIRECOVNOTDE ####[address] pH (U) 6.0 [pH] Normal 5.0-9.0 [facility] Comment on above: Order Comment: Name Collection Type:: Clean-Voided Midstream Performed By: #### U RDS, CUU, RESP PANEL UPP., ADDONUAPLUS, BIOFIRECOVNOTDE ####[id number] [facility] Protein (U) [Mass/Vol] 30 mg/dL High Negative [facility] Comment on above: Order Comment: Name Collection Type:: Clean-Voided Midstream Performed By: #### U RDS, CUU, RESP PANEL UPP., ADDONUAPLUS, BIOFIRECOVNOTDE ####[address] RBC,Urine 50 [HPF] High 0-4 [facility] Comment on above: Order Comment: Name Collection Type:: Clean-Voided Midstream Performed By: #### U RDS, CUU, RESP PANEL UPP., ADDONUAPLUS, BIOFIRECOVNOTDE ####[address] Specificy [place],Urine 1.024 Normal 1.00 1-1.03 0 [facility] Comment on above: Order Comment: Name Collection Type:: Clean-Voided Midstream Performed By: #### U RDS, CUU, RESP PANEL UPP., ADDONUAPLUS, BIOFIRECOVNOTDE ####[address] Squamous Epithelial Cell,Urine 1 [HPF] Normal 0-2 [facility] Comment on above: Order Comment: Name Collection Type:: Clean-Voided Midstream Performed By: #### U RDS, CUU, RESP PANEL UPP., ADDONUAPLUS, BIOFIRECOVNOTDE ####[address] Urobilinogen,Urine 4 mg/dL High Normal [facility] Comment on above: Order Comment: Name Collection Type:: Clean-Voided Midstream Performed By: #### U RDS, CUU, RESP PANEL UPP., ADDONUAPLUS, BIOFIRECOVNOTDE ####[address] Urothelial Cells 1 [HPF] High 0-1 [facility] Comment on above: Order Comment: Name Collection Type:: Clean-Voided Midstream Performed By: #### U RDS, CUU, RESP PANEL UPP., ADDONUAPLUS, BIOFIRECOVNOTDE ####[address] WBC CLUMP, Urine Occasional High None Seen [facility] Comment on above: Order Comment: Name Collection Type:: Clean-Voided Midstream Performed By: #### U RDS, CUU, RESP PANEL UPP., ADDONUAPLUS, BIOFIRECOVNOTDE ####[address] WBC,Urine Innumerable High 0-4 [facility] Comment on above: Order Comment: Name Collection Type:: Clean-Voided Midstream Performed By: #### U RDS, CUU, RESP PANEL UPP., ADDONUAPLUS, BIOFIRECOVNOTDE ####[address] Drug Screen,Urineon 05-02-20 Amphetamine Screen,Urine Positive High Negative [facility] Comment on above: Performed By: #### U RDS, CUU, RESP PANEL UPP., ADDONUAPLUS, BIOFIRECOVNOTDE ####[address] Barbiturate Screen,Urine Negative Normal Negative [facility] Comment on above: Performed By: #### U RDS, CUU, RESP PANEL UPP., ADDONUAPLUS, BIOFIRECOVNOTDE ####[address] Benzodiazepines Screen,Urine Negative Normal Negative [facility] Comment on above: Performed By: #### U RDS, CUU, RESP PANEL UPP., ADDONUAPLUS, BIOFIRECOVNOTDE ####[address] Cannabinoid Screen,Urine Negative Normal Negative [facility] Comment on above: Result Comment: Thes e are unconfirmed results and should not be used for legal purposes. Drug Cut-Off Concentration: AMPH 1000 ng/mL JULIETA 200 ng/mL JORGE 200 ng/mL COCM 300 ng/mL OP 300 ng/mL PCP 25 ng/mL THC 20 ng/mLPERFORMED BY:[address] [place], [place] [phone] MEDICAL DIRECTORFRANCHESCA MAGALLON M.D. Performed By: #### U RDS, CUU, RESP PANEL UPP., ADDONUAPLUS, BIOFIRECOVNOTDE ####[address] Cocaine Screen,Urine Negative Normal Negative [facility] Comment on above: Performed By: #### U RDS, CUU, RESP PANEL UPP., ADDONUAPLUS, BIOFIRECOVNOTDE ####[address] Opiate Screen,Urine Negative Normal Negative [facility] Comment on above: Performed By: #### U RDS, CUU, RESP PANEL UPP., ADDONUAPLUS, BIOFIRECOVNOTDE ####[address] Phencyclidine Screen,Urine Negative Normal Negative [facility] Comment on above: Performed By: #### U RDS, CUU, RESP PANEL UPP., ADDONUAPLUS, BIOFIRECOVNOTDE ####[address] ECG 12 lead ECGon 05-02-2024 ECG 12 lead ECG Normal [facility] ECG 12 lead ECG Normal [facility] ECG 12 lead ECG Normal [facility] Epithelial cells.squamous [# /area] in Urine sediment by Automated countOrdered By: Ralf White on 05-02-2024 Epithelial cells.squamous Auto (Urine sed) [#/Area] Epithelial cells.squamous [#/area] in Urine sediment by Automated count 0 [facility] Erythrocytes [#/area] in Uri ne sediment by Automated countOrdered By: Ralf White on 05-02-2024 RBC Auto (Urine sed) [#/Area] Erythrocytes [#/area] in Urine sediment by Automated count High 0- [facility] Ethanol [Mass/volume] in Ser um or PlasmaOrdered By: Ralf White on 05-02-2024 Ethanol [Mass/Vol] Ethanol [Mass/volume ] in Serum or Plasma [facility] Comment on above: Test not performed Ethyl Alcohol Profileon 04-11 Ethanol [Mass/Vol] mg/dL Normal [facility] Comment on above: Performed By: #### L ACTIC, CK, ETOH, CMP, PTT, CUBLD, HS TROP, TSH3, PT, AMM, SCAN CBC ####[facility] [id number] [place] [id number] [facility] Percent Ethanol Not performed Normal [facility] Comment on above: Result Comment: PERF ORMED BY:[address] [place], [place] [phone] MEDICAL DIRECTORFRANCHESCA MAGALLON M.D. Performed By: #### L ACTIC, CK, ETOH, CMP, PTT, CUBLD, HS TROP, TSH3, PT, AMM, SCAN CBC ####[facility] [id number] [place] [id number] [facility] Glucose [Mass/volume] in Uri ne by Test stripOrdered By: Ralf White on 05-02-2024 Glucose Test strip (U) [Mass/Vol] Glucose [Mass/volume] in Urine by Test strip Normal [facility] Hemoglobin Test strip Ql (U) Ordered By: Ralf White on 05-02-2024 Hemoglobin Ql (U) Hemoglobin [Presence ] in Urine by Test strip High Negative [facility] Hyaline casts [#/area] in Ur ine sediment by Automated countOrdered By: Ralf White on 05-02-2024 Hyaline casts Auto (Urine sed) [#/Area] Hyaline casts [#/area] in Urine sediment by Automated count 0-8 [facility] Ketones Test strip Ql (U)Ord ered By: Ralf White on 05-02-2024 Ketones Ql (U) Ketones [Presence] i n Urine by Test strip High Negative [facility] - Microbiology an d Antimicrobial susceptibilityOrdered By: Ralf White on 05-02-2024 Bacteria identified Cx Nom (Bld) Group B Strep (Streptococcus agalactiae) Abnormal [facility] Bacteria identified Cx Nom (Bld) Group B Strep (Streptococcus agalactiae) Abnormal [facility] Lactic Acidon 05-02-2024 Lactate [Moles/Vol] 1.3 mmol/L Normal 0.5-2.2 [facility] Comment on above: Result Comment: PERF ORMED BY:[facility] [place], [place] [phone] MEDICAL DIRECTORFRANCHESCA MAGALLON M.D. Performed By: #### L ACTIC, CK, ETOH, CMP, PTT, CUBLD, HS TROP, TSH3, PT, AMM, SCAN CBC ####[facility] [place] [address] [facility] Leukocyte clumps [Presence] in Urine by AutomatedOrdered By: Ralf White on 05-02-2024 Leukocyte clumps Auto Ql (U) Leukocyte clumps [Presence] in Urine by Automated High None Seen [facility] Leukocyte esterase [Presence ] in Urine by Test stripOrdered By: Ralf White on 05-02-2024 Leukocyte esterase Test strip Ql (U) Leukocyte esterase [Presence] in Urine by Test strip High Negative [facility] Leukocytes [#/area] in Urine sediment by Automated countOrdered By: Ralf White on 05-02-2024 WBC Auto (Urine sed) [#/Area] Leukocytes [#/area] in Urine sediment by Automated count High 0-4 [facility] Monocyte distribution width [Entitic volume] in Blood by AutomatedOrdered By: Ralf White on 05-02-2024 Monocyte distribution width Auto (Bld) [Entitic vol] Monocyte distribution width [Entitic volume] in Blood by Automated High 0.00-20.00 [facility] Comment on above: For adults in ED, [...] Mucus [Presence] in Urine by Automated Abnormal [facility] Nitrite Test strip Ql (U)Ord ered By: Ralf White on 05-02-2024 Nitrite Ql (U) Nitrite [Presence] i n Urine by Test strip Negative [facility] No Panel InformationOrdered By: Ralf White on 05-02-2024 Venous Blood Base Excess -3.7 mmol/L Low -3.0-3.0 [facility] Venous Blood Oxygen Saturation 73.9 % 73.0-76.0 [facility] Venous Blood Partial Pressure CO2 37.0 mm[Hg] Low 38.0-50.0 [facility] Venous Blood Partial Pressure O2 < 48.1 mm[Hg] High 35.0-45.0 [facility] Venous Blood pH 7.37 7.32-7.43 [facility] Bacterial ID (NA Multiplex Assay) [facility] Opiates [Presence] in Urine by Screen methodOrdered By: Ralf White on 05-02-2024 Opiates Screen Ql (U) Opiates [Presence] in Urine by Screen method Negative [facility] Partial Thromboplastin Timeo n 05-02-2024 aPTT Coag (Bld) [Time] 28.3 s Normal 25.1-36.5 [facility] Comment on above: Result Comment: A he matocrit value greater than 55% may lead to inaccurate results in coagulation testing. Patients having hematocrit values >55% require a special collection tube for coagulation studies. Please contact the laboratory at [phone] for redraw instructions.PERFORMED BY:[address] [place], [place] [phone] MEDICAL DIRECTORFRANCHESCA MAGALLON M.D. Performed By: #### L ACTIC, CK, ETOH, CMP, PTT, CUBLD, HS TROP, TSH3, PT, AMM, SCAN CBC ####[address] [address] [facility] Phencyclidine Screen Ql (U)O rdered By: Ralf White on 05-02-2024 Phencyclidine Ql (U) Phencyclidine [Pres ence] in Urine by Screen method Negative [facility] Protein Test strip (U) [Mass /Vol]Ordered By: Ralf White on 05-02-2024 Protein (U) [Mass/Vol] Protein [Mass/vol ume] in Urine by Test strip High Negative [facility] Prothrombin Time INRon 05-02 INR Coag (PPP) [Relative time] 1.3 {INR} Normal [facility] Comment on above: Result Comment: [...] - 4.5 Performed By: #### L ACTIC, CK, ETOH, CMP, PTT, CUBLD, HS TROP, TSH3, PT, AMM, SCAN CBC ####[address] [place] [id number] [facility] PT Coag (PPP) [Time] 14.9 s High 9.0-12.9 [facility] Comment on above: Result Comment: A he matocrit value greater than 55% may lead to inaccurate results in coagulation testing. Patients having hematocrit values >55% require a special collection tube for coagulation studies. Please contact the laboratory at [phone] for redraw instructions. Performed By: #### L ACTIC, CK, ETOH, CMP, PTT, CUBLD, HS TROP, TSH3, PT, AMM, SCAN CBC ####[place] [address] Respiratory (Upper) Panel, P CRon 05-02-2024 Respiratory (Upper) Panel, PCR Normal [facility] Comment on above: Performed By: #### U RDS, CUU, RESP PANEL UPP., ADDONUAPLUS, BIOFIRECOVNOTDE ####[address] [place] [id number] [facility] Respiratory pathogens DNA an d RNA panel - Nasopharynx by MARGARET with non-probe detectionOrdered By: Ralf White on 05-02-2024 Respiratory pathogens DNA and RNA panel MARGARET+non-probe (Nph) Respiratory pathogens DNA and RNA panel - Nasopharynx by MARGARET with non-probe detection [facility] Scan and CBCon 05-02-2024 Basophils (Bld) [#/Vol] 0.0 10*3/uL Normal 0.0-0.2 [facility] Comment on above: Performed By: #### L ACTIC, CK, ETOH, CMP, PTT, CUBLD, HS TROP, TSH3, PT, AMM, SCAN CBC ####[address] Basophils/100 WBC (Bld) 0.2 % Normal . T [facility] Comment on above: Performed By: #### L ACTIC, CK, ETOH, CMP, PTT, CUBLD, HS TROP, TSH3, PT, AMM, SCAN CBC ####[address] Eosinophils (Bld) [#/Vol] 0.0 10*3/uL Normal 0.0-0.45 [facility] Comment on above: Performed By: #### L ACTIC, CK, ETOH, CMP, PTT, CUBLD, HS TROP, TSH3, PT, AMM, SCAN CBC ####[address] Eosinophils/100 WBC (Bld) 0.1 % Normal . [facility] Comment on above: Performed By: #### L ACTIC, CK, ETOH, CMP, PTT, CUBLD, HS TROP, TSH3, PT, AMM, SCAN CBC ####[address] Erythrocyte distribution width (RBC) [Ratio] 15.0 % High 12.0-14.8 [facility] Comment on above: Performed By: #### L ACTIC, CK, ETOH, CMP, PTT, CUBLD, HS TROP, TSH3, PT, AMM, SCAN CBC ####[address] Hematocrit (Bld) [Volume fraction] 42.0 % Normal 38.8-50.0 [facility] Comment on above: Performed By: #### L ACTIC, CK, ETOH, CMP, PTT, CUBLD, HS TROP, TSH3, PT, AMM, SCAN CBC ####[address] Hemoglobin (Bld) [Mass/Vol] 14.2 g/dL Normal 13.0-17.0 [facility] Comment on above: Performed By: #### L ACTIC, CK, ETOH, CMP, PTT, CUBLD, HS TROP, TSH3, PT, AMM, SCAN CBC ####[address] Lymphocytes (Bld) [#/Vol] 0.6 10*3/uL Low 1.00-4.8 [facility] Comment on above: Performed By: #### L ACTIC, CK, ETOH, CMP, PTT, CUBLD, HS TROP, TSH3, PT, AMM, SCAN CBC ####[address] Lymphocytes/100 WBC (Bld) 5.4 % Normal . [facility] Comment on above: Performed By: #### L ACTIC, CK, ETOH, CMP, PTT, CUBLD, HS TROP, TSH3, PT, AMM, SCAN CBC ####[address] MCH (RBC) [Entitic mass] 32.5 pg Normal 27.5-35.2 [facility] Comment on above: Performed By: #### L ACTIC, CK, ETOH, CMP, PTT, CUBLD, HS TROP, TSH3, PT, AMM, SCAN CBC ####[address] MCV (RBC) [Entitic vol] 96.4 fL Normal 83.5-101 [facility] Comment on above: Performed By: #### L ACTIC, CK, ETOH, CMP, PTT, CUBLD, HS TROP, TSH3, PT, AMM, SCAN CBC ####[address] Mean Corpuscular HGB Conc 33.7 g/dL Normal 32.5-35.6 [facility] Comment on above: Performed By: #### L ACTIC, CK, ETOH, CMP, PTT, CUBLD, HS TROP, TSH3, PT, AMM, SCAN CBC ####[address] Monocytes (Bld) [#/Vol] 0.5 10*3/uL Normal 0.0-0.8 [facility] Comment on above: Performed By: #### L ACTIC, CK, ETOH, CMP, PTT, CUBLD, HS TROP, TSH3, PT, AMM, SCAN CBC ####[address] Monocytes/100 WBC (Bld) 30.23 % High 0.00-20.00 [facility] Comment on above: Result Comment: For adults in ED, MDW > 20.0 may be associated with a higher risk of sepsis during the first 12 hrs of hospital admission The predictive value of MDW for identifying sepsis in patients with hematological abnormalities has not been established Performed By: #### L ACTIC, CK, ETOH, CMP, PTT, CUBLD, HS TROP, TSH3, PT, AMM, SCAN CBC ####[place] [address] [place] Monocytes/100 WBC (Bld) 4.6 % Normal . [facility] Comment on above: Performed By: #### L ACTIC, CK, ETOH, CMP, PTT, CUBLD, HS TROP, TSH3, PT, AMM, SCAN CBC ####[place] [address] [place] Neutrophils (Bld) [#/Vol] 10.6 10*3/uL High 1.8-7.7 [facility] Comment on above: Performed By: #### L ACTIC, CK, ETOH, CMP, PTT, CUBLD, HS TROP, TSH3, PT, AMM, SCAN CBC ####[place] [id number] [place] Neutrophils/100 WBC (Bld) 89.7 % Normal . [facility] Comment on above: Performed By: #### L ACTIC, CK, ETOH, CMP, PTT, CUBLD, HS TROP, TSH3, PT, AMM, SCAN CBC ####[place] [id number] [place] NRBC% 0.0 /100{WBC} Normal 0-0.5 [facility] Comment on above: Performed By: #### L ACTIC, CK, ETOH, CMP, PTT, CUBLD, HS TROP, TSH3, PT, AMM, SCAN CBC ####[address] Platelet Estimate Normal Normal Normal [facility] [facility] Comment on above: Performed By: #### L ACTIC, CK, ETOH, CMP, PTT, CUBLD, HS TROP, TSH3, PT, AMM, SCAN CBC ####[address] Platelet mean volume (Bld) [Entitic vol] 7.5 fL Normal 6.6-10.1 [facility] Comment on above: Performed By: #### L ACTIC, CK, ETOH, CMP, PTT, CUBLD, HS TROP, TSH3, PT, AMM, SCAN CBC ####[address] Platelet Morphology Normal Normal Normal [facility] Comment on above: Result Comment: PERF ORMED BY:[address]JayantCL[place], [place] [phone] MEDICAL DIRECTORFRANCHESCA MAGALLON M.D. Performed By: #### L ACTIC, CK, ETOH, CMP, PTT, CUBLD, HS TROP, TSH3, PT, AMM, SCAN CBC ####[address] Platelets (Bld) [#/Vol] 159 10*3/uL Normal 150-450 [facility] Comment on above: Performed By: #### L ACTIC, CK, ETOH, CMP, PTT, CUBLD, HS TROP, TSH3, PT, AMM, SCAN CBC ####[address] RBC (Bld) [#/Vol] 4.36 10*6/uL Normal 3.90-5.60 [facility] Comment on above: Performed By: #### L ACTIC, CK, ETOH, CMP, PTT, CUBLD, HS TROP, TSH3, PT, AMM, SCAN CBC ####[address] RBC morphology finding Nom (Bld) Normal Normal Normal [facility] Comment on above: Performed By: #### L ACTIC, CK, ETOH, CMP, PTT, CUBLD, HS TROP, TSH3, PT, AMM, SCAN CBC ####[address] Toxic Granulation Slight Normal [facility] Comment on above: Performed By: #### L ACTIC, CK, ETOH, CMP, PTT, CUBLD, HS TROP, TSH3, PT, AMM, SCAN CBC ####[address] Toxic Vacuolation Moderate Normal [facility] Comment on above: Performed By: #### L ACTIC, CK, ETOH, CMP, PTT, CUBLD, HS TROP, TSH3, PT, AMM, SCAN CBC ####[address] WBC (Bld) [#/Vol] 11.8 10*3/uL High 4.1-10.5 [facility] Comment on above: Performed By: #### L ACTIC, CK, ETOH, CMP, PTT, CUBLD, HS TROP, TSH3, PT, AMM, SCAN CBC ####[address] Specific gravity Test strip (U) [Rel density]Ordered By: Ralf White on 05-02-2024 Specific gravity (U) [Rel density] Specific gravity of Urine by Test strip 1.001-1.03 0 [facility] Thyroid Stimulating Hormoneo n 05-02-2024 TSH Qn 1.87 m[IU]/L Normal 0.45-5.33 [facility] Comment on above: Result Comment: PERF ORMED BY:[address] [place], [place] [phone] MEDICAL DIRECTORFRANCHESCA MAGALLON M.D. Performed By: #### L ACTIC, CK, ETOH, CMP, PTT, CUBLD, HS TROP, TSH3, PT, AMM, SCAN CBC ####[place] [address] [place] [id number] [facility] Thyrotropin [Units/volume] i n Serum or PlasmaOrdered By: Ralf White on 05-02-2024 TSH Qn Thyrotropin [Units/v olume] in Serum or Plasma 0.45-5.33 [facility] Toxic leukocyte vacuolation detectionOrdered By: Ralf White on 05-02-2024 Leukocyte toxic vacuoles LM Ql (Bld) Toxic leukocyte vacuolation detection [facility] Transitional cells [#/area] in Urine by Computer assisted methodOrdered By: Ralf White on 05-02-2024 Transitional cells Computer assisted (U) [#/Area] Transitional cells [#/area] in Urine by Computer assisted method High 0-1 [facility] Troponin I High Sensitivityo n 05-02-2024 Troponin I High Sensitivity 106.7 pg/mL Off scale high 0.0-20.0 [facility] Comment on above: Result Comment: Crit ical Result : Called to and read back by: SAHARA PARKS at: 05/02/2024 11:40:17 by:KBPERFORMED BY:[address] [place], [place] [phone] MEDICAL DIRECTORFRANCHESCA MAGALLON M.D. Performed By: #### L ACTIC, CK, ETOH, CMP, PTT, CUBLD, HS TROP, TSH3, PT, AMM, SCAN CBC ####[place] [id number] [facility] Urine Cultureon 05-02-2024 Bacteria identified Cx Nom (U) Normal [facility] Comment on above: Performed By: #### U RDS, CUU, RESP PANEL UPP., ADDONUAPLUS, BIOFIRECOVNOTDE ####[place] [id number] [facility] Urine cultureOrdered By: Sayda White on 05-02-2024 Bacteria identified Cx Nom (U) Abnormal [facility] Bacteria identified Cx Nom (U) Group B Strep (Streptococcus agalactiae) Abnormal [facility] Urobilinogen Test strip (U) [Mass/Vol]Ordered By: Ralf White on 05-02-2024 Urobilinogen (U) [Mass/Vol] Urobilinogen [Mass/volume] in Urine by Test strip High Normal [facility] Venous Blood GasOrdered By: Ralf White on 05-02-2024 CO2 [Moles/Vol] 22.2 mmol/L Low 24.0-29.0 [facility] Comment on above: Performed By: #### V BG ####Point of Care testing, HCO3 (Bld) [Moles/Vol] 21.1 mmol/L Low 23.0-29.0 [facility] Comment on above: Performed By: #### V BG ####Point of Care testing, Venous Blood Gason Respiratory Critical Normal [facility] Comment on above: Result Comment: Crit ical Value called on: 05/02/2024 at 13:24PERFORMED BY:[place] [address] [place], [place] [phone] MEDICAL DIRECTORFRANCHESCA MAGALLON M.D. Performed By: #### V BG ####Point of Care testing, VBG Base Excess -3.7 mmol/L Low -3.0-3.0 [facility] Comment on above: Performed By: #### V BG ####Point of Care testing, VBG Draw Site Venous Normal [facility] Comment on above: Performed By: #### V BG ####Point of Care testing, VBG Frac Inspired O2 21 % Normal [facility] Comment on above: Performed By: #### V BG ####Point of Care testing, VBG Oxygen Saturation 73.9 % Normal 73.0-76.0 [facility] Comment on above: Performed By: #### V BG ####Point of Care testing, VBG PCO2 37.0 mm[Hg] Low 38.0-50.0 [facility] Comment on above: Performed By: #### V BG ####Point of Care testing, VBG PH Venous PH 7.37 Normal 7.32-7.43 [facility] Comment on above: Performed By: #### V BG ####Point of Care testing, VBG PO2 <48.1 High 35.0-45.0 [facility] Comment on above: Performed By: #### V BG ####Point of Care testing, X-ray reportOrdered By: Nilo Raphael on 05-02-2024 Study report [facility] Main [place] [id number] XRay Report Signed Patient: Juan Simon MR#: [id number] : 1955 Acct:[id number] Age/Sex: 68 / M ADM Date: 4 Loc: Room: [address] [place] [address] Type: ADM IN Attending Dr: Skyler Sanchez [...] Raphael Jr., D.OHaley05/02/2024 3:33 PM Dictation Location: [facility] Transcribed By: [facility] 05/02/24 1533 Dictated By: Triston Raphael Jr, DO 05/02/24 1532 Signed By: 05/02/24 1533 [facility] X-ray reportOrdered By: Xander Solano on 05-02-2024 Study report [address] [address] XRay Report Signed Patient: Juan Simon MR#: [id number] : 1955 Acct:[id number] Age/Sex: 68 / M ADM Date: 4 Loc: ER Room: Type: [facility] ER Attending Dr: Copies to: Ralf [...] Xander Solano M.D.05/02/2024 2:25 PM Dictation Location: [place] [address] Transcribed By: [facility] 05/02/241424 Dictated By: Xander Solano II, MD 05/02/241419 Signed By: 05/02/24 142 [facility] Work Phone: XR chest 1V portableon 05-02 XR chest 1V portable Normal [facility] XR chest 2V*on 05-02-2024 XR chest 2V* Normal [facility] aPTT in Platelet poor plasma by Coagulation assayOrdered By: Ralf White on 05-02-2024 aPTT Coag (PPP) [Time] Activated partial thromboplastin time (aPTT) in platelet poor plasma by coagulation a 25.1-36.5 [facility] Comment on above: A hematocrit value g reater than 55% may lead to inaccurate results in coagulation testing. Patients having hematocrit values >55% require a special collection tube for coagulation studies. Please contact the laboratory at [phone] for redraw instructions. pH Test strip (U)Ordered By: Ralf White on 05-02-2024 pH (U) pH of Urine by Test strip 5.0-9.0 [facility] CBC W Auto Differential pane l (Bld)on 04-23-2024 Basophils (Bld) [#/Vol] 0 10*3/uL [facility] Basophils/100 WBC (Bld) 0 % Not Estab. [facility] Eosinophils (Bld) [#/Vol] 0.1 10*3/uL [facility] Eosinophils/100 WBC (Bld) 1 % Not Estab. [facility] Erythrocyte distribution width (RBC) [Ratio] 12.9 % 11.6 - 15.4 % [facility] Hematocrit (Bld) [Volume fraction] 45.3 % 37.5 - 51.0 % [facility] Hemoglobin (Bld) [Mass/Vol] 15 g/dL 13.0 - 17.7 g/dL [facility] Immature granulocytes (Bld) [#/Vol] 0.1 10*3/uL [facility] Immature granulocytes/100 WBC (Bld) 1 % Not Estab. [facility] Lymphocytes (Bld) [#/Vol] 3 10*3/uL [facility] Lymphocytes/100 WBC (Bld) 31 % Not Estab. [facility] MCH (RBC) [Entitic mass] 32.3 pg 26.6 - 33.0 pg [facility] MCHC (RBC) [Mass/Vol] 33.1 g/dL 31.5 - 35.7 g/dL [facility] MCV (RBC) [Entitic vol] 98 fL High 79 - 97 fL N [facility] Monocytes (Bld) [#/Vol] 0.6 10*3/uL [facility] Monocytes/100 WBC (Bld) 7 % Not Estab. N [facility] Neutrophils (Bld) [#/Vol] 5.7 10*3/uL [facility] Neutrophils/100 WBC (Bld) 60 % Not Estab. [facility] Platelets (Bld) [#/Vol] 384 10*3/uL [facility] RBC (Bld) [#/Vol] 4.64 10*6/uL [facility] WBC (Bld) [#/Vol] 9.5 10*3/uL [facility] Comprehensive metabolic pane raudel 04-23-2024 Albumin [Mass/Vol] 4 g/dL 3.9 - 4.9 g/dL [facility] ALP [Catalytic activity/Vol] 93 U/L [facility] ALT [Catalytic activity/Vol] 26 U/L [facility] AST [Catalytic activity/Vol] 15 U/L [facility] Bilirubin [Mass/Vol] 0.5 mg/dL 0.0 - 1 .2 mg/dL [facility] Calcium [Mass/Vol] 8.8 mg/dL 8.6 - 10. 2 mg/dL [facility] Chloride [Moles/Vol] 99 mmol/L 96 - 10 6 mmol/L [facility] CO2 [Moles/Vol] 26 mmol/L 20 - 29 mmol/L [facility] Creatinine [Mass/Vol] 0.87 mg/dL 0.76 - 1.27 mg/dL [facility] GFR/1.73 sq M.predicted among non-blacks MDRD (S/P/Bld) [Vol rate/Area] 95 mL/min/{1.73_m2} 59 - PINF mL/min/1.7 3 [facility] Globulin (S) [Mass/Vol] 2.1 g/dL 1.5 - 4.5 g/dL [facility] Glucose [Mass/Vol] 87 mg/dL 70 - 99 mg/dL [facility] Potassium [Moles/Vol] 4.8 mmol/L 3.5 - 5.2 mmol/L [facility] Protein [Mass/Vol] 6.1 g/dL 6.0 - 8.5 g/dL [facility] Sodium [Moles/Vol] 138 mmol/L 134 - 144 mmol/L [facility] Urea nitrogen [Mass/Vol] 16 mg/dL 8 - 27 mg/dL [facility] Urea nitrogen/Creatinine [Mass ratio] 18 mg/mg 10 - 24 [facility] Hemoglobin A1con 04-23-2024 HbA1c (Bld) [Mass fraction] 6.2 % High 4.8 - 5.6 % [facility] Comment on above: Prediabetes: 5.7 - 6 .4 Diabetes: >6.4 Glycemic control for adults with diabetes: <7.0 No Panel Informationon 04-23 Interpretation and review of laboratory results Abnormal [facility] Performed at: 01 - [address] [id number] Eligibility Counselor: Tin Dunn PhD, Phone: [phone] [facility] PSAon 04-23-2024 Prostate specific Ag [Mass/Vol] 2.4 ng/mL 0.0 - 4.0 ng/mL [facility] Comment on above: Macy ECLIA methodol ogy. According to the [employer] [place] [employer], Serum PSA should decrease and [...] Specimen Status Reporton Clindamycin Disk diffusion (KB) [[facility]] Comment [facility] Comment on above: Mitra Brush CMP14 D efault Mitra Brush CMP14 Default A hand-written panel/profile was received from your office. In accordance with the [employer] Ambiguous Test Code Policy dated November 2002, we have completed your order by using the closest currently or formerly recognized AMA panel. We have assigned Comprehensive Metabolic Panel (14), Test Code #474718 to this request. If this is not the testing you wished to receive on this specimen, please contact the [facility] Client Inquiry/Technical Services Department to clarify the test order. We appreciate your business. MARCYOVon 03-18-2024 CNOV Office Visit (NEURAV ) -- JUAN SIMON ([id number]) 1955 M Date Time Provider Department 03/18/24 9:00 AM JIMMY CASTLE During your visit today, we recorded the following information about you: Pulse Blood pressure 92/minute 145/72 Jimmy Castle DO 03/24/2024 1:52 PM Signed [facility] New Patient Consultation March 18, 2024 HPI: [...] that month. All of these were at [facility]. After having these Dr Benson, his PCP, [...] enough to warrant surgery, referred by previous paintings conservator. He feels he stays well hydrated for [...] in December. He denies history of stroke, [place], and/or seizures that he is aware of. [...] word finding issues. He can talk in [place]. His will need to get words for [...] with de (more content not included)... Normal [facility] US CAROTID ARTERY DUPLE X BILATERALon 02-10-2024 [facility] US CAROTID ARTERY DUPLEX BILATERAL EXAM: Carotid [...] report is generated using voice recognition reporting ([employer]). On occasion [employer] erroneously drops words from the report or replaces the spoken word with similar sounding words. Please call with any questions/concerns regarding this report.* Dictated and transcribed 02/10/24/dpd This report has been electronically signed and approved by the interpreting radiologist. Electronically Signed Conor Lopez D.O. 2024-02-10 09:43:[address] cervical spine wo conon 0 01-11-2024 CT cervical spine wo con Normal [facility] XR chest 2V*on 01-11-2024 XR chest 2V* Normal [facility] Alanine aminotransferase [En zymatic activity/volume] in Serum or PlasmaOrdered By: Ralf White on 01-10-2024 ALT [Catalytic activity/Vol] 23 U/L Normal 7-52 [facility] Comment on above: Performed By: #### T SH3, CBC, MG, HEPATIC, AMM, BMP ####[facility] [address] [place] [address] [facility] Albumin [Mass/volume] in Ser um or Plasma by Bromocresol green (BCG) dye binding methoOrdered By: Ralf White on 01-10-2024 Albumin BCG dye [Mass/Vol] 3.5 g/dL 3.5-5.7 [facility] Alkaline phosphatase [Enzyma tic activity/volume] in Serum or PlasmaOrdered By: Ralf Wihte on 01-10-2024 ALP [Catalytic activity/Vol] 77 U/L Normal 34-104 [facility] Comment on above: Performed By: #### T SH3, CBC, MG, HEPATIC, AMM, BMP ####[place] [id number] [facility] Ammonia [Moles/volume] in Pl asmaOrdered By: Ralf White on 01-10-2024 Ammonia (P) [Moles/Vol] 28 umol/L Normal 11-35 F [facility] Comment on above: Result Comment: PERF ORMED BY:[place] [address] [address] [place], [place] [phone] MEDICAL DIRECTORZEFERINO ZIMMER M.D. Performed By: #### T SH3, CBC, MG, HEPATIC, AMM, BMP ####[place] [id number] [facility] Aspartate aminotransferase [ Enzymatic activity/volume] in Serum or PlasmaOrdered By: Ralf White on 01-10-2024 AST [Catalytic activity/Vol] 20 U/L Normal 13-39 [facility] Comment on above: Performed By: #### T SH3, CBC, MG, HEPATIC, AMM, BMP ####[place] [id number] [facility] Automated basophil %Ordered By: Ralf White on 01-10-2024 Basophils/100 WBC (Bld) 1.2 % Normal . [facility] Comment on above: Performed By: #### T SH3, CBC, MG, HEPATIC, AMM, BMP ####[place] [id number] [facility] Automated basophil countOrde red By: Ralf White on 01-10-2024 Basophils (Bld) [#/Vol] 0.1 10*3/uL Normal 0.0-0.2 [facility] Comment on above: Result Comment: PERF ORMED BY:[place] [address] [address] [place], [place] [phone] MEDICAL DIRECTORZEFERINO ZIMMER M.D. Performed By: #### T SH3, CBC, MG, HEPATIC, AMM, BMP ####[address] Automated blood monocyte cou ntOrdered By: Ralf White on 01-10-2024 Monocytes (Bld) [#/Vol] 0.7 10*3/uL Normal 0.0-0.8 [facility] Comment on above: Performed By: #### T SH3, CBC, MG, HEPATIC, AMM, BMP ####[address] Automated eosinophil %Ordere d By: Ralf White on 01-10-2024 Eosinophils/100 WBC (Bld) 1.9 % Normal . [facility] Comment on above: Performed By: #### T SH3, CBC, MG, HEPATIC, AMM, BMP ####[address] Automated eosinophil countOr dered By: Ralf White on 01-10-2024 Eosinophils (Bld) [#/Vol] 0.1 10*3/uL Normal 0.0-0.45 [facility] Comment on above: Performed By: #### T SH3, CBC, MG, HEPATIC, AMM, BMP ####[address] Automated monocyte %Ordered By: Ralf White on 01-10-2024 Monocytes/100 WBC (Bld) 9.0 % Normal . [facility] Comment on above: Performed By: #### T SH3, CBC, MG, HEPATIC, AMM, BMP ####[address] Automated neutrophil %Ordere d By: Ralf White on 01-10-2024 Neutrophils/100 WBC (Bld) 56.9 % Normal . [facility] Comment on above: Performed By: #### T SH3, CBC, MG, HEPATIC, AMM, BMP ####[address] BNP ser/plasOrdered By: Maxime White on 01-10-2024 Natriuretic peptide B (Bld) [Mass/Vol] 23.0 pg/mL Normal 5-100 [facility] Comment on above: Result Comment: PERF ORMED BY:[address] [place], [place] [phone] MEDICAL DIRECTORZEFERINO ZIMMER M.D. Performed By: #### B SCRAPER TENDER, CRP, ESR ####[address] [address] [facility] Basic Metabolic Panelon GFR/1.73 sq M.predicted MDRD (S/P/Bld) [Vol rate/Area] mL/min/{1.73_m2} Normal [facility] Comment on above: Performed By: #### T SH3, CBC, MG, HEPATIC, AMM, BMP ####[place] [address] [place] [address] [facility] Bilirubin Test strip Ql (U)O rdered By: Ralf White on 01-10-2024 Bilirubin Ql (U) Negative Negative [facility] Bilirubin.direct [Mass/volum e] in Serum or PlasmaOrdered By: Ralf White on 01-10-2024 Bilirubin.direct [Mass/Vol] 0.10 mg/dL 0.03-0.18 [facility] Bilirubin.total [Mass/volume ] in Serum or PlasmaOrdered By: Ralf White on 01-10-2024 Bilirubin [Mass/Vol] 0.7 mg/dL Normal 0.3-1.0 [facility] Comment on above: Performed By: #### T SH3, CBC, MG, HEPATIC, AMM, BMP ####[address] [address] [facility] C reactive protein [Mass/vol ume] in Serum or PlasmaOrdered By: Ralf White on 01-10-2024 CRP [Mass/Vol] 0.9 mg/dL High 0.0-0.5 [facility] C-Reactive Proteinon 024 C-Reactive Protein 0.9 mg/dL High 0.0-0.5 [facility] Comment on above: Result Comment: PERF ORMED BY:[place] [address] [address] [place], [place] [phone] MEDICAL DIRECTORZEFERINO ZIMMER M.D. Performed By: #### B SCRAPER TENDER, CRP, ESR ####[place] [id number] [facility] Calcium [Mass/volume] in Ser um or PlasmaOrdered By: Ralf White on 01-10-2024 Calcium [Mass/Vol] 8.6 mg/dL Normal 8.6-10.3 [facility] Comment on above: Performed By: #### T SH3, CBC, MG, HEPATIC, AMM, BMP ####[place] [id number] [facility] Carbon dioxide, total [Moles /volume] in Serum or PlasmaOrdered By: Ralf White on 01-10-2024 CO2 [Moles/Vol] 28.3 mmol/L Normal 21.0-31.0 [facility] Comment on above: Performed By: #### T SH3, CBC, MG, HEPATIC, AMM, BMP ####[place] [id number] [facility] Chloride [Moles/volume] in S kay or PlasmaOrdered By: Ralf White on 01-10-2024 Chloride [Moles/Vol] 102 mmol/L Normal 98-107 [facility] Comment on above: Performed By: #### T SH3, CBC, MG, HEPATIC, AMM, BMP ####[place] [id number] [facility] Color of Urine by AutoOrdere d By: Ralf White on 01-10-2024 Color (U) Colorless Normal Yellow [facility] Comment on above: Order Comment: Name Collection Type:: Clean-Voided Midstream Performed By: #### U A ####[place] [id number] [facility] Complete Blood Count Auto Di ffon 01-10-2024 Mean Corpuscular HGB Conc 34.0 g/dL Normal 32.5-35.6 [facility] Comment on above: Performed By: #### T SH3, CBC, MG, HEPATIC, AMM, BMP ####[address] [place] [address] [facility] Monocytes/100 WBC (Bld) 22.28 % High 0.00-20.00 T jeniffer [facility] Comment on above: Result Comment: For adults in ED, MDW > 20.0 may be associated with a higher risk of sepsis during the first 12 hrs of hospital admission Performed By: #### T SH3, CBC, MG, HEPATIC, AMM, BMP ####[place] [id number] [facility] NRBC% 0.1 /100{WBC} Normal 0-0.5 [facility] Comment on above: Performed By: #### T SH3, CBC, MG, HEPATIC, AMM, BMP ####[place] [id number] [facility] Creatinine [Mass/volume] in Serum or PlasmaOrdered By: Ralf White on 01-10-2024 Creatinine [Mass/Vol] 0.94 mg/dL Normal 0.70-1.30 [facility] Comment on above: Performed By: #### T SH3, CBC, MG, HEPATIC, AMM, BMP ####[place] [id number] [facility] Erythrocyte Sedimentation Ra marcio 01-10-2024 ESR (Bld) [Velocity] 26 mm/h High 0-19 [facility] Comment on above: Result Comment: PERF ORMED BY:[address] [place], [place] [phone] MEDICAL DIRECTORZEFERINO ZIMMER M.D. Performed By: #### B SCRAPER TENDER, CRP, ESR ####[place] [id number] [facility] Erythrocyte distribution wid th [Ratio] by Automated countOrdered By: Ralf White on 01-10-2024 Erythrocyte distribution width (RBC) [Ratio] 13.5 % Normal 12.0-14.8 [facility] Comment on above: Performed By: #### T SH3, CBC, MG, HEPATIC, AMM, BMP ####[place] [id number] [place] Erythrocyte sedimentation ra te by Photometric methodOrdered By: Ralf White on 01-10-2024 ESR Photometric method (Bld) [Velocity] 26 mm/hr High 0-19 [facility] Erythrocytes [#/volume] in B lood by Automated countOrdered By: Ralf White on 01-10-2024 RBC (Bld) [#/Vol] 4.04 10*6/uL Normal 3.90-5.60 [facility] Comment on above: Performed By: #### T SH3, CBC, MG, HEPATIC, AMM, BMP ####[facility] [address] [place] [address] [facility] Glucose [Mass/volume] in Ser um or PlasmaOrdered By: Ralf White on 01-10-2024 Glucose [Mass/Vol] 101 mg/dL High 70-100 [facility] Comment on above: ADA recommended refe rence rangeRandom Glucose Reference Range is dependent on time and content of last meal. Glucose of more than 200 mg/dL in a nonstressed, ambulatory subject supports the diagnosis of Diabetes Mellitus. Result Comment: [employer] om Glucose Reference Range is dependent on time and content of last meal. Glucose of more than 200 mg/dL in a nonstressed, ambulatory subject supports the diagnosis of Diabetes Mellitus. ADA recommended reference range Performed By: #### T SH3, CBC, MG, HEPATIC, AMM, BMP ####[facility] [address] [place] [address] [facility] Glucose [Mass/volume] in Uri ne by Test stripOrdered By: Ralf White on 01-10-2024 Glucose Test strip (U) [Mass/Vol] Normal mg/dL Normal [facility] Hematocrit [Volume Fraction] of Blood by Automated countOrdered By: Ralf White on 01-10-2024 Hematocrit (Bld) [Volume fraction] 39.6 % Normal 38.8-50.0 [facility] Comment on above: Performed By: #### T SH3, CBC, MG, HEPATIC, AMM, BMP ####[facility] [address] [place] [address] [facility] Hemoglobin Test strip Ql (U) Ordered By: Ralf White on 01-10-2024 Hemoglobin Ql (U) Negative Negative [facility] Hemoglobin [Mass/volume] in BloodOrdered By: Ralf White on 01-10-2024 Hemoglobin (Bld) [Mass/Vol] 13.4 g/dL Normal 13.0-17.0 [facility] Comment on above: Performed By: #### T SH3, CBC, MG, HEPATIC, AMM, BMP ####[place] [id number] [facility] Hepatic Panelon 01-10-2024 Albumin [Mass/Vol] 3.5 g/dL Normal 3.5-5.7 [facility] Comment on above: Performed By: #### T SH3, CBC, MG, HEPATIC, AMM, BMP ####[address] Bilirubin,Indirect 0.6 mg/dL Normal [facility] Comment on above: Performed By: #### T SH3, CBC, MG, HEPATIC, AMM, BMP ####[address] Bilirubin.indirect [Mass/Vol] 0.10 mg/dL Normal 0.03-0.18 [facility] Comment on above: Performed By: #### T SH3, CBC, MG, HEPATIC, AMM, BMP ####[address] Ketones [Presence] in Urine by Test stripOrdered By: Ralf White on 01-10-2024 Ketones Ql (U) Negative Normal Negative [facility] Comment on above: Order Comment: Name Collection Type:: Clean-Voided Midstream Performed By: #### U A ####[place] [id number] [facility] Leukocyte esterase [Presence ] in Urine by Test stripOrdered By: Ralf White on 01-10-2024 Leukocyte esterase Test strip Ql (U) Negative Normal Negative [facility] Comment on above: Order Comment: Name Collection Type:: Clean-Voided Midstream Performed By: #### U A ####[address] Leukocytes [#/volume] correc suri for nucleated erythrocytes in Blood by Automated counOrdered By: Ralf White on 01-10-2024 WBC corrected for nucl RBC Auto (Bld) [#/Vol] 7.8 10*3/uL 4.1-10.5 [facility] Leukocytes [#/volume] in Blo od by Automated countOrdered By: Ralf White on 01-10-2024 WBC (Bld) [#/Vol] 7.8 10*3/uL Normal 4.1-10.5 [facility] Comment on above: Performed By: #### T SH3, CBC, MG, HEPATIC, AMM, BMP ####[place] [id number] [facility] Lymphocytes [#/volume] in Bl ood by Automated countOrdered By: Ralf White on 01-10-2024 Lymphocytes (Bld) [#/Vol] 2.4 10*3/uL Normal 1.00-4.8 [facility] Comment on above: Performed By: #### T SH3, CBC, MG, HEPATIC, AMM, BMP ####[address] [address] [facility] Lymphocytes/100 leukocytes i n Blood by Automated countOrdered By: Ralf White on 01-10-2024 Lymphocytes/100 WBC (Bld) 31.0 % Normal . [facility] Comment on above: Performed By: #### T SH3, CBC, MG, HEPATIC, AMM, BMP ####[place] [id number] [facility] MCH [Entitic mass] by Automa suri countOrdered By: Ralf White on 01-10-2024 MCH (RBC) [Entitic mass] 33.2 pg Normal 27.5-35.2 [facility] Comment on above: Performed By: #### T SH3, CBC, MG, HEPATIC, AMM, BMP ####[place] [id number] [facility] MCHC Auto (RBC) [Mass/Vol]Or dered By: Ralf White on 01-10-2024 MCHC (RBC) [Mass/Vol] 34.0 g/dL 32.5-35.6 [facility] MCV [Entitic volume] by Auto mated countOrdered By: Ralf White on 01-10-2024 MCV (RBC) [Entitic vol] 97.9 fL Normal 83.5-101 F [facility] Comment on above: Performed By: #### T SH3, CBC, MG, HEPATIC, AMM, BMP ####[facility] [id number] [place] [id number] [facility] Magnesium [Mass/volume] in S kay or PlasmaOrdered By: Ralf White on 01-10-2024 Magnesium [Mass/Vol] 1.7 mg/dL Low 1.9-2.7 [facility] Comment on above: Performed By: #### T SH3, CBC, MG, HEPATIC, AMM, BMP ####[place] [address] [place] [address] [facility] Monocyte distribution width [Entitic volume] in Blood by AutomatedOrdered By: Ralf White on 01-10-2024 Monocyte distribution width Auto (Bld) [Entitic vol] 22.28 % High 0.00-20.00 [facility] Comment on above: For adults in ED, MD W > 20.0 may be associated with a higher risk of sepsis during the first 12 hrs of hospital admission Neutrophils [#/volume] in Bl ood by Automated countOrdered By: Ralf White on 01-10-2024 Neutrophils (Bld) [#/Vol] 4.4 10*3/uL Normal 1.8-7.7 [facility] Comment on above: Performed By: #### T SH3, CBC, MG, HEPATIC, AMM, BMP ####[facility] [place] [address] [facility] Nitrite Test strip Ql (U)Ord ered By: Ralf White on 01-10-2024 Nitrite Ql (U) Negative Negative [facility] No Panel InformationOrdered By: Ralf White on 01-10-2024 Blood Gas Critical Value See comment [facility] Comment on above: Critical Value almendarez d on: 01/10/2024 at 23:40 Blood Gas Sample Site Venous [facility] FiO2 21 % [facility] Venous Blood Base Excess 1.1 mmol/L -3.0-3.0 [facility] Venous Blood Oxygen Content 4.9 mmol/L Low 6.6-9.7 [facility] Venous Blood Oxygen Saturation 58.1 % Low 73.0-76.0 [facility] Venous Blood Partial Pressure CO2 44.2 mm[Hg] 38.0-50.0 [facility] Venous Blood Partial Pressure O2 29.9 mm[Hg] Low 35.0-45.0 [facility] Venous Blood pH 7.39 7.32-7.43 [facility] Estimated GFR (CKD-EPI) > 60.0 mL/Min [facility] Creatinine Clearance (Chem N/A [facility] Nucleated erythrocytes [Pres ence] in Blood by Automated countOrdered By: Ralf White on 01-10-2024 Nucleated RBC Auto Ql (Bld) 0.1 /100{WBC} 0-0.5 [facility] Platelet mean volume [Entiti c volume] in Blood by Automated countOrdered By: Ralf White on 01-10-2024 Platelet mean volume (Bld) [Entitic vol] 7.5 fL Normal 6.6-10.1 [facility] Comment on above: Performed By: #### T SH3, CBC, MG, HEPATIC, AMM, BMP ####[facility] [id number] Platelets [#/volume] in Bloo d by Automated countOrdered By: Ralf White on 01-10-2024 Platelets (Bld) [#/Vol] 234 10*3/uL Normal 150-450 [facility] Comment on above: Performed By: #### T SH3, CBC, MG, HEPATIC, AMM, BMP ####[facility] [id number] Potassium [Moles/volume] in Serum or PlasmaOrdered By: Ralf White on 01-10-2024 Potassium [Moles/Vol] 4.3 mmol/L Normal 3.5-5.1 [facility] Comment on above: Performed By: #### T SH3, CBC, MG, HEPATIC, AMM, BMP ####[address] Protein Test strip (U) [Mass /Vol]Ordered By: Ralf White on 01-10-2024 Protein (U) [Mass/Vol] Negative Negative [facility] Protein [Mass/volume] in Ser um or PlasmaOrdered By: Ralf White on 01-10-2024 Protein [Mass/Vol] 6.4 g/dL Normal 6.4-8.9 [facility] Comment on above: Performed By: #### T SH3, CBC, MG, HEPATIC, AMM, BMP ####[address] Serum globulin measurement b y calculation (mass/volume)Ordered By: Ralf White on 01-10-2024 Globulin (S) [Mass/Vol] 2.9 g/dL Normal [facility] Comment on above: Performed By: #### T SH3, CBC, MG, HEPATIC, AMM, BMP ####[address] Serum or plasma albumin/glob ulin mass ratioOrdered By: Ralf White on 01-10-2024 Albumin/Globulin [Mass ratio] 1.2 {ratio} Normal [facility] Comment on above: Performed By: #### T SH3, CBC, MG, HEPATIC, AMM, BMP ####[address] Serum or plasma anion gap de terminationOrdered By: Ralf White on 01-10-2024 Anion gap [Moles/Vol] 10.0 mmol/L Normal 6.0-15.0 [facility] Comment on above: Performed By: #### T SH3, CBC, MG, HEPATIC, AMM, BMP ####[address] Serum or plasma non-glucuron idated bilirubin measurement (mass/volume)Ordered By: Ralf White on 01-10-2024 Bilirubin.indirect [Mass/Vol] 0.6 mg/dL [facility] Sodium [Moles/volume] in Ser um or PlasmaOrdered By: Ralf White on 01-10-2024 Sodium [Moles/Vol] 136 mmol/L Normal 136-145 [facility] Comment on above: Performed By: #### T SH3, CBC, MG, HEPATIC, AMM, BMP ####[place] [id number] [facility] Specific gravity Test strip (U) [Rel density]Ordered By: Ralf White on 01-10-2024 Specific gravity (U) [Rel density] 1.006 1.001-1.03 0 [facility] Thyrotropin [Units/volume] i n Serum or PlasmaOrdered By: Ralf White on 01-10-2024 TSH Qn 4.31 m[IU]/L Normal 0.45-5.33 [facility] Comment on above: Result Comment: PERF ORMED BY:[place] [address] [place], [place] [phone] MEDICAL KELLY ZIMMER M.D. Performed By: #### T SH3, CBC, MG, HEPATIC, AMM, BMP ####[place] [id number] [facility] Urea nitrogen [Mass/volume] in Serum or PlasmaOrdered By: Ralf White on 01-10-2024 Urea nitrogen [Mass/Vol] 11 mg/dL Normal 7-25 [facility] Comment on above: Performed By: #### T SH3, CBC, MG, HEPATIC, AMM, BMP ####[place] [id number] [facility] Urinalysison 01-10-2024 Bilirubin,Urine Negative Normal Negative [facility] Comment on above: Order Comment: Name Collection Type:: Clean-Voided Midstream Performed By: #### U A ####[place] [id number] [facility] Glucose Ql (U) Normal Normal Normal [facility] Comment on above: Order Comment: Name Collection Type:: Clean-Voided Midstream Performed By: #### U A ####[place] [id number] [facility] Nitrite,Urine Negative Normal Negative [facility] Comment on above: Order Comment: Name Collection Type:: Clean-Voided Midstream Performed By: #### U A ####[address] [address] [facility] Occult Blood,Urine Negative Normal Negative [facility] Comment on above: Order Comment: Name Collection Type:: Clean-Voided Midstream Result Comment: PERF ORMED BY:[address] [place], [place] [phone] MEDICAL DIRECTORZEFERINO ZIMMER M.D. Performed By: #### U A ####[address] [address] [facility] Protein,Urine Negative Normal Negative [facility] Comment on above: Order Comment: Name Collection Type:: Clean-Voided Midstream Performed By: #### U A ####[address] [address] [facility] Specificy [place],Urine 1.006 Normal 1.00 1-1.03 0 [facility] Comment on above: Order Comment: Name Collection Type:: Clean-Voided Midstream Performed By: #### U A ####[address] [address] [facility] Urobilinogen,Urine Normal Normal Normal [facility] Comment on above: Order Comment: Name Collection Type:: Clean-Voided Midstream Performed By: #### U A ####[address] [address] [facility] Urine appearanceOrdered By: Ralf White on 01-10-2024 Appearance (U) Clear Normal Clear [facility] Comment on above: Order Comment: Name Collection Type:: Clean-Voided Midstream Performed By: #### U A ####[address] [address] [facility] Urobilinogen Test strip (U) [Mass/Vol]Ordered By: Ralf White on 01-10-2024 Urobilinogen (U) [Mass/Vol] Normal mg/dL Normal [facility] Venous Blood GasOrdered By: Ralf White on 01-10-2024 CO2 [Moles/Vol] 27.7 mmol/L Normal 24.0-29.0 [facility] Comment on above: Performed By: #### V BG ####Point of Care testing, HCO3 (Bld) [Moles/Vol] 26.3 mmol/L Normal 23.0-29.0 [facility] Comment on above: Performed By: #### V BG ####Point of Care testing, Venous Blood Gason Respiratory Critical Normal [facility] Comment on above: Result Comment: Crit ical Value called on: 01/10/2024 at 23:40PERFORMED BY:[facility] [place] [place], [place] [id number] MEDICAL DIRECTORZEFERINO ZIMMER M.D. Performed By: #### V BG ####Point of Care testing, VBG Base Excess 1.1 mmol/L Normal -3.0-3.0 [facility] Comment on above: Performed By: #### V BG ####Point of Care testing, VBG Draw Site Venous Normal [facility] Comment on above: Performed By: #### V BG ####Point of Care testing, VBG Frac Inspired O2 21 % Normal [facility] Comment on above: Performed By: #### V BG ####Point of Care testing, VBG O2 Content 4.9 mmol/L Low 6.6-9.7 [facility] Comment on above: Performed By: #### V BG ####Point of Care testing, VBG Oxygen Saturation 58.1 % Off scale low 73.0-76.0 [facility] Comment on above: Performed By: #### V BG ####Point of Care testing, VBG PCO2 44.2 mm[Hg] Normal 38.0-50.0 [facility] Comment on above: Performed By: #### V BG ####Point of Care testing, VBG PH Venous PH 7.39 Normal 7.32-7.43 [facility] Comment on above: Performed By: #### V BG ####Point of Care testing, VBG PO2 29.9 mm[Hg] Low 35.0-45.0 [facility] Comment on above: Performed By: #### V BG ####Point of Care testing, pH of Urine by Test stripOrd ered By: Ralf White on 01-10-2024 pH (U) 7.0 [pH] Normal 5.0-9.0 [facility] Comment on above: Order Comment: Name Collection Type:: Clean-Voided Midstream Performed By: #### U A ####[facility] [id number] [place] [address] [facility] XR CHEST 2 VIEWSon XR CHEST 2 [...] ALT [Catalytic activity/Vol] 17 U/L Normal 7-52 [facility] Comment on above: Performed By: #### C MP, CBC ####[facility] [id number] [place] [address] [facility] Albumin [Mass/volume] in Ser um or Plasma by Bromocresol green (BCG) dye binding methoOrdered By: Conor John on 12-29-2023 Albumin BCG dye [Mass/Vol] 3.1 g/dL Low 3.5-5.7 [facility] Alkaline phosphatase [Enzyma tic activity/volume] in Serum or PlasmaOrdered By: Conor John on 12-29-2023 ALP [Catalytic activity/Vol] 87 U/L Normal 34-104 [facility] Comment on above: Performed By: #### C MP, CBC ####[address] Aspartate aminotransferase [ Enzymatic activity/volume] in Serum or PlasmaOrdered By: Conor John on 12-29-2023 AST [Catalytic activity/Vol] 14 U/L Normal 13-39 [facility] Comment on above: Performed By: #### C MP, CBC ####[address] Automated basophil %Ordered By: Conor John on 12-29-2023 Basophils/100 WBC (Bld) 0.1 % Normal . [facility] Comment on above: Performed By: #### C MP, CBC ####[address] Automated basophil countOrde red By: Conor John on 12-29-2023 Basophils (Bld) [#/Vol] 0.0 10*3/uL Normal 0.0-0.2 [facility] Comment on above: Result Comment: PERF ORMED BY:[address] [place], [place] [phone] MEDICAL DIRECTORZEFERINO ZIMMER M.D. Performed By: #### C MP, CBC ####[address] Automated blood monocyte cou ntOrdered By: Conor John on 12-29-2023 Monocytes (Bld) [#/Vol] 0.7 10*3/uL Normal 0.0-0.8 [facility] Comment on above: Performed By: #### C MP, CBC ####[address] Automated eosinophil %Ordere d By: Conor John on 12-29-2023 Eosinophils/100 WBC (Bld) 0.0 % Normal . [facility] Comment on above: Performed By: #### C MP, CBC ####[address] Automated eosinophil countOr dered By: Conor John on 12-29-2023 Eosinophils (Bld) [#/Vol] 0.0 10*3/uL Normal 0.0-0.45 [facility] Comment on above: Performed By: #### C MP, CBC ####[address] Automated monocyte %Ordered By: Conor John on 12-29-2023 Monocytes/100 WBC (Bld) 3.6 % Normal . [facility] Comment on above: Performed By: #### C MP, CBC ####[address] Automated neutrophil %Ordere d By: Conor John on 12-29-2023 Neutrophils/100 WBC (Bld) 86.0 % Normal . [facility] Comment on above: Performed By: #### C MP, CBC ####[address] Bilirubin.total [Mass/volume ] in Serum or PlasmaOrdered By: Conor John on 12-29-2023 Bilirubin [Mass/Vol] 0.4 mg/dL Normal 0.3-1.0 [facility] Comment on above: Performed By: #### C MP, CBC ####[address] Calcium [Mass/volume] in Ser um or PlasmaOrdered By: Conor John on 12-29-2023 Calcium [Mass/Vol] 7.9 mg/dL Low 8.6-10.3 [facility] Comment on above: Performed By: #### C MP, CBC ####[address] Carbon dioxide, total [Moles /volume] in Serum or PlasmaOrdered By: Conor John on 12-29-2023 CO2 [Moles/Vol] 29.1 mmol/L Normal 21.0-31.0 [facility] Comment on above: Performed By: #### C MP, CBC ####[place] [address] [place] Chloride [Moles/volume] in S kay or PlasmaOrdered By: Conor John on 12-29-2023 Chloride [Moles/Vol] 102 mmol/L Normal 98-107 [facility] Comment on above: Performed By: #### C MP, CBC ####[place] [id number] [facility] Complete Blood Count Auto Di ffon 12-29-2023 Mean Corpuscular HGB Conc 33.6 g/dL Normal 32.5-35.6 [facility] Comment on above: Performed By: #### C MP, CBC ####[address] NRBC% 0.1 /100{WBC} Normal 0-0.5 [facility] Comment on above: Performed By: #### C MP, CBC ####[place] [id number] [facility] Comprehensive Metabolic Pane raudel 12-29-2023 Albumin [Mass/Vol] 3.1 g/dL Low 3.5-5.7 [facility] Comment on above: Performed By: #### C MP, CBC ####[address] Creatinine Clr Calc Pharmacy 90.15 Normal [facility] Comment on above: Result Comment: PERF ORMED BY:[address] [place], [place] [phone] MEDICAL KELLY ZIMMER M.D. Performed By: #### C MP, CBC ####[place] [id number] [facility] GFR/1.73 sq M.predicted MDRD (S/P/Bld) [Vol rate/Area] mL/min/{1.73_m2} Normal [facility] Comment on above: Performed By: #### C MP, CBC ####[place] [id number] [facility] Creatinine [Mass/volume] in Serum or PlasmaOrdered By: Conor John on 12-29-2023 Creatinine [Mass/Vol] 0.85 mg/dL Normal 0.70-1.30 [facility] Comment on above: Performed By: #### C MP, CBC ####[place] [id number] [facility] Erythrocyte distribution wid th [Ratio] by Automated countOrdered By: Conor John on 12-29-2023 Erythrocyte distribution width (RBC) [Ratio] 13.1 % Normal 12.0-14.8 [facility] Comment on above: Performed By: #### C MP, CBC ####[address] Erythrocytes [#/volume] in B lood by Automated countOrdered By: Conor John on 12-29-2023 RBC (Bld) [#/Vol] 3.81 10*6/uL Low 3.90-5.60 [facility] Comment on above: Performed By: #### C MP, CBC ####[address] Glucose [Mass/volume] in Ser um or PlasmaOrdered By: Conor John on 12-29-2023 Glucose [Mass/Vol] 112 mg/dL High 70-100 [facility] Comment on above: ADA recommended refe rence rangeRandom Glucose Reference Range is dependent on time and content of last meal. Glucose of more than 200 mg/dL in a nonstressed, ambulatory subject supports the diagnosis of Diabetes Mellitus. Result Comment: [employer] om Glucose Reference Range is dependent on time and content of last meal. Glucose of more than 200 mg/dL in a nonstressed, ambulatory subject supports the diagnosis of Diabetes Mellitus. ADA recommended reference range Performed By: #### C MP, CBC ####[place] [id number] [facility] Hematocrit [Volume Fraction] of Blood by Automated countOrdered By: Conor John on 12-29-2023 Hematocrit (Bld) [Volume fraction] 37.5 % Low 38.8-50.0 [facility] Comment on above: Performed By: #### C MP, CBC ####[address] [place] [address] [facility] Hemoglobin [Mass/volume] in BloodOrdered By: Conor John on 12-29-2023 Hemoglobin (Bld) [Mass/Vol] 12.6 g/dL Low 13.0-17.0 [facility] Comment on above: Performed By: #### C MP, CBC ####[address] Leukocytes [#/volume] correc suri for nucleated erythrocytes in Blood by Automated counOrdered By: Conor John on 12-29-2023 WBC corrected for nucl RBC Auto (Bld) [#/Vol] 20.2 10*3/uL High 4.1-10.5 [facility] Leukocytes [#/volume] in Blo od by Automated countOrdered By: Conor John on 12-29-2023 WBC (Bld) [#/Vol] 20.2 10*3/uL High 4.1-10.5 [facility] Comment on above: Performed By: #### C MP, CBC ####[address] Lymphocytes [#/volume] in Bl ood by Automated countOrdered By: Conor John on 12-29-2023 Lymphocytes (Bld) [#/Vol] 2.1 10*3/uL Normal 1.00-4.8 [facility] Comment on above: Performed By: #### C MP, CBC ####[address] Lymphocytes/100 leukocytes i n Blood by Automated countOrdered By: Conor John on 12-29-2023 Lymphocytes/100 WBC (Bld) 10.3 % Normal . [facility] Comment on above: Performed By: #### C MP, CBC ####[address] MCH [Entitic mass] by Automa suri countOrdered By: Conor John on 12-29-2023 MCH (RBC) [Entitic mass] 33.1 pg Normal 27.5-35.2 [facility] Comment on above: Performed By: #### C MP, CBC ####[address] MCHC Auto (RBC) [Mass/Vol]Or dered By: Conor John on 12-29-2023 MCHC (RBC) [Mass/Vol] 33.6 g/dL 32.5-35.6 [facility] MCV [Entitic volume] by Auto mated countOrdered By: Conor John on 12-29-2023 MCV (RBC) [Entitic vol] 98.4 fL Normal 83.5-101 F [facility] Comment on above: Performed By: #### C MP, CBC ####[address] Neutrophils [#/volume] in Bl ood by Automated countOrdered By: Conor John on 12-29-2023 Neutrophils (Bld) [#/Vol] 17.4 10*3/uL High 1.8-7.7 [facility] Comment on above: Performed By: #### C MP, CBC ####[address] No Panel InformationOrdered By: Conor John on 12-29-2023 Estimated GFR (CKD-EPI) > 60.0 mL/Min [facility] Creatinine Clearance (Chem 90.15 [facility] Nucleated erythrocytes [Pres ence] in Blood by Automated countOrdered By: Conor John on 12-29-2023 Nucleated RBC Auto Ql (Bld) 0.1 /100{WBC} 0-0.5 [facility] Platelet mean volume [Entiti c volume] in Blood by Automated countOrdered By: Conor John on 12-29-2023 Platelet mean volume (Bld) [Entitic vol] 7.2 fL Normal 6.6-10.1 [facility] Comment on above: Performed By: #### C MP, CBC ####[address] Platelets [#/volume] in Bloo d by Automated countOrdered By: Conor John on 08-20-2024 Platelets (Bld) [#/Vol] 265 10*3/uL Normal 150-450 [facility] Comment on above: Performed By: #### C MP, CBC ####[address] Potassium [Moles/volume] in Serum or PlasmaOrdered By: Conor John on 12-29-2023 Potassium [Moles/Vol] 3.9 mmol/L Normal 3.5-5.1 [facility] Comment on above: Performed By: #### C MP, CBC ####[place] [id number] [facility] Protein [Mass/volume] in Ser um or PlasmaOrdered By: Conor John on 12-29-2023 Protein [Mass/Vol] 5.1 g/dL Low 6.4-8.9 [facility] Comment on above: Performed By: #### C MP, CBC ####[address] Serum globulin measurement b y calculation (mass/volume)Ordered By: Conor John on 12-29-2023 Globulin (S) [Mass/Vol] 2.0 g/dL Normal [facility] Comment on above: Performed By: #### C MP, CBC ####[place] [id number] [facility] Serum or plasma albumin/glob ulin mass ratioOrdered By: Conor John on 12-29-2023 Albumin/Globulin [Mass ratio] 1.6 {ratio} Normal [facility] Comment on above: Performed By: #### C MP, CBC ####[place] [id number] [facility] Serum or plasma anion gap de terminationOrdered By: Conor John on 12-29-2023 Anion gap [Moles/Vol] 11.8 mmol/L Normal 6.0-15.0 [facility] Comment on above: Performed By: #### C MP, CBC ####[place] [id number] [facility] Sodium [Moles/volume] in Ser um or PlasmaOrdered By: Conor Alvaro on 12-29-2023 Sodium [Moles/Vol] 139 mmol/L Normal 136-145 [facility] Comment on above: Performed By: #### C MP, CBC ####[place] [id number] [facility] US venous duplex LE BIon US venous duplex LE BI Normal Th e [facility] Urea nitrogen [Mass/volume] in Serum or PlasmaOrdered By: Conor Alvaro on 12-29-2023 Urea nitrogen [Mass/Vol] 22 mg/dL Normal 7-25 [facility] Comment on above: Performed By: #### C MP, CBC ####[place] [id number] [facility] BNP ser/plasOrdered By: Nikolai John on 12-28-2023 Natriuretic peptide B (Bld) [Mass/Vol] 288.0 pg/mL High 5-100 [facility] Comment on above: Result Comment: PERF ORMED BY:[address] [place], [place] [id number] MEDICAL DIRECTORZEFERINO ZIMMER M.D. Performed By: #### C MP, BNP, CBC, MG ####[place] [id number] [facility] Complete Blood Count Auto Di ffon 12-28-2023 Basophils (Bld) [#/Vol] 0.0 10*3/uL Normal 0.0-0.2 [facility] Comment on above: Result Comment: PERF ORMED BY:[address] [place] [id number] MEDICAL DIRECTORZEFERINO ZIMMER M.D. Performed By: #### C MP, BNP, CBC, MG ####[place] [id number] [facility] Basophils/100 WBC (Bld) 0.2 % Normal . T [facility] Comment on above: Performed By: #### C MP, BNP, CBC, MG ####[place] [address] Eosinophils (Bld) [#/Vol] 0.0 10*3/uL Normal 0.0-0.45 [facility] Comment on above: Performed By: #### C MP, BNP, CBC, MG ####[address] Eosinophils/100 WBC (Bld) 0.0 % Normal . [facility] Comment on above: Performed By: #### C MP, BNP, CBC, MG ####[address] Erythrocyte distribution width (RBC) [Ratio] 13.4 % Normal 12.0-14.8 [facility] Comment on above: Performed By: #### C MP, BNP, CBC, MG ####[address] Hematocrit (Bld) [Volume fraction] 37.1 % Low 38.8-50.0 [facility] Comment on above: Performed By: #### C MP, BNP, CBC, MG ####[address] Hemoglobin (Bld) [Mass/Vol] 12.5 g/dL Low 13.0-17.0 [facility] Comment on above: Performed By: #### C MP, BNP, CBC, MG ####[address] Lymphocytes (Bld) [#/Vol] 1.6 10*3/uL Normal 1.00-4.8 [facility] Comment on above: Performed By: #### C MP, BNP, CBC, MG ####[address] Lymphocytes/100 WBC (Bld) 6.3 % Normal . [facility] Comment on above: Performed By: #### C MP, BNP, CBC, MG ####[address] MCH (RBC) [Entitic mass] 33.0 pg Normal 27.5-35.2 [facility] Comment on above: Performed By: #### C MP, BNP, CBC, MG ####[address] MCV (RBC) [Entitic vol] 98.4 fL Normal 83.5-101 [facility] Comment on above: Performed By: #### C MP, BNP, CBC, MG ####[address] Mean Corpuscular HGB Conc 33.6 g/dL Normal 32.5-35.6 [facility] Comment on above: Performed By: #### C MP, BNP, CBC, MG ####[address] Monocytes (Bld) [#/Vol] 0.8 10*3/uL Normal 0.0-0.8 [facility] Comment on above: Performed By: #### C MP, BNP, CBC, MG ####[address] Monocytes/100 WBC (Bld) 3.1 % Normal . [facility] Comment on above: Performed By: #### C MP, BNP, CBC, MG ####[address] Neutrophils (Bld) [#/Vol] 22.6 10*3/uL High 1.8-7.7 [facility] Comment on above: Performed By: #### C MP, BNP, CBC, MG ####[address] Neutrophils/100 WBC (Bld) 90.4 % Normal . [facility] Comment on above: Performed By: #### C MP, BNP, CBC, MG ####[address] NRBC% 0.0 /100{WBC} Normal 0-0.5 [facility] Comment on above: Performed By: #### C MP, BNP, CBC, MG ####[address] [address] [place] Platelet mean volume (Bld) [Entitic vol] 7.0 fL Normal 6.6-10.1 [facility] Comment on above: Performed By: #### C MP, BNP, CBC, MG ####[address] Platelets (Bld) [#/Vol] 254 10*3/uL Normal 150-450 [facility] Comment on above: Performed By: #### C MP, BNP, CBC, MG ####[address] RBC (Bld) [#/Vol] 3.77 10*6/uL Low 3.90-5.60 [facility] Comment on above: Performed By: #### C MP, BNP, CBC, MG ####[address] WBC (Bld) [#/Vol] 25.0 10*3/uL High 4.1-10.5 [facility] Comment on above: Performed By: #### C MP, BNP, CBC, MG ####[address] Comprehensive Metabolic Pane raudel 12-28-2023 Albumin [Mass/Vol] 3.2 g/dL Low 3.5-5.7 [facility] Comment on above: Performed By: #### C MP, BNP, CBC, MG ####[address] Albumin/Globulin [Mass ratio] 1.3 {ratio} Normal [facility] Comment on above: Performed By: #### C MP, BNP, CBC, MG ####[address] ALP [Catalytic activity/Vol] 104 U/L Normal 34-104 [facility] Comment on above: Performed By: #### C MP, BNP, CBC, MG ####[address] ALT [Catalytic activity/Vol] 15 U/L Normal 7-52 [facility] Comment on above: Performed By: #### C MP, BNP, CBC, MG ####[address] Anion gap [Moles/Vol] 11.2 mmol/L Normal 6.0-15.0 [facility] Comment on above: Performed By: #### C MP, BNP, CBC, MG ####[address] AST [Catalytic activity/Vol] 16 U/L Normal 13-39 [facility] Comment on above: Performed By: #### C MP, BNP, CBC, MG ####[address] Bilirubin [Mass/Vol] 0.4 mg/dL Normal 0.3-1.0 [facility] Comment on above: Performed By: #### C MP, BNP, CBC, MG ####[address] Calcium [Mass/Vol] 7.8 mg/dL Low 8.6-10.3 [facility] Comment on above: Performed By: #### C MP, BNP, CBC, MG ####[address] Chloride [Moles/Vol] 103 mmol/L Normal 98-107 [facility] Comment on above: Performed By: #### C MP, BNP, CBC, MG ####[address] CO2 [Moles/Vol] 25.9 mmol/L Normal 21.0-31.0 [facility] Comment on above: Performed By: #### C MP, BNP, CBC, MG ####[address] Creatinine [Mass/Vol] 0.84 mg/dL Normal 0.70-1.30 [facility] Comment on above: Performed By: #### C MP, BNP, CBC, MG ####[address] Creatinine Clr Calc Pharmacy 91.71 Normal [facility] Comment on above: Performed By: #### C MP, BNP, CBC, MG ####[address] GFR/1.73 sq M.predicted MDRD (S/P/Bld) [Vol rate/Area] mL/min/{1.73_m2} Normal [facility] Comment on above: Performed By: #### C MP, BNP, CBC, MG ####[address] Globulin (S) [Mass/Vol] 2.5 g/dL Normal T [facility] Comment on above: Performed By: #### C MP, BNP, CBC, MG ####[address] Glucose [Mass/Vol] 112 mg/dL High 70-100 [facility] Comment on above: Result Comment: [facility] Glucose Reference Range is dependent on time and content of last meal. Glucose of more than 200 mg/dL in a nonstressed, ambulatory subject supports the diagnosis of Diabetes Mellitus. ADA recommended reference range Performed By: #### C MP, BNP, CBC, MG ####[address] Potassium [Moles/Vol] 4.1 mmol/L Normal 3.5-5.1 [facility] Comment on above: Performed By: #### C MP, BNP, CBC, MG ####[address] Protein [Mass/Vol] 5.7 g/dL Low 6.4-8.9 [facility] Comment on above: Performed By: #### C MP, BNP, CBC, MG ####[address] Sodium [Moles/Vol] 136 mmol/L Normal 136-145 [facility] Comment on above: Performed By: #### C MP, BNP, CBC, MG ####[address] Urea nitrogen [Mass/Vol] 20 mg/dL Normal 7-25 [facility] Comment on above: Performed By: #### C MP, BNP, CBC, MG ####[place] [address] [place] [id number] [facility] Magnesium [Mass/volume] in S kay or PlasmaOrdered By: Conor John on 12-28-2023 Magnesium [Mass/Vol] 1.8 mg/dL Low 1.9-2.7 [facility] Comment on above: Result Comment: PERF ORMED BY:[address] [place], [place] [phone] MEDICAL DIRECTORZEFERINO ZIMMER M.D. Performed By: #### C MP, BNP, CBC, MG ####[place] [address] [place] [id number] [facility] Activated partial thrombopla stin time (aPTT) in platelet poor plasma by coagulation aOrdered By: Soto Simmons on 12-27-2023 aPTT Coag (PPP) [Time] 28.0 s 25.1-36.5 [facility] Comment on above: A hematocrit value g reater than 55% may lead to inaccurate results in coagulation testing. Patients having hematocrit values >55% require a special collection tube for coagulation studies. Please contact the laboratory at [phone] for redraw instructions. Aerobic Cultureon 12-27-2023 Aerobic Culture Normal [facility] Comment on above: Performed By: #### A ERC ####[place] [id number] [facility] Automated basophil %Ordered By: Soto Simmons on 12-27-2023 Basophils/100 WBC (Bld) 0.4 % Normal . F [facility] Comment on above: Performed By: #### B SCRAPER TENDER, BMP, CUBLD, CBC, LACTIC, PTT, HS TROP, PT, CK ####[place] [address] [place] [id number] [facility] Automated basophil countOrde red By: Soto Simmons on 12-27-2023 Basophils (Bld) [#/Vol] 0.1 10*3/uL Normal 0.0-0.2 [facility] Comment on above: Result Comment: PERF ORMED BY:[address] [place], [place] [phone] MEDICAL DIRECTORZEFERINO ZIMMER M.D. Performed By: #### B SCRAPER TENDER, BMP, CUBLD, CBC, LACTIC, PTT, HS TROP, PT, CK ####[address] Automated blood monocyte cou ntOrdered By: Soto Simmons on 12-27-2023 Monocytes (Bld) [#/Vol] 0.3 10*3/uL Normal 0.0-0.8 [facility] Comment on above: Performed By: #### B SCRAPER TENDER, BMP, CUBLD, CBC, LACTIC, PTT, HS TROP, PT, CK ####[address] Automated eosinophil %Ordere d By: Soto Simmons on 12-27-2023 Eosinophils/100 WBC (Bld) 0.6 % Normal . [facility] Comment on above: Performed By: #### B SCRAPER TENDER, BMP, CUBLD, CBC, LACTIC, PTT, HS TROP, PT, CK ####[address] Automated eosinophil countOr dered By: Soto Simmons on 12-27-2023 Eosinophils (Bld) [#/Vol] 0.1 10*3/uL Normal 0.0-0.45 [facility] Comment on above: Performed By: #### B SCRAPER TENDER, BMP, CUBLD, CBC, LACTIC, PTT, HS TROP, PT, CK ####[address] Automated monocyte %Ordered By: Soto Simmons on 12-27-2023 Monocytes/100 WBC (Bld) 2.1 % Normal . [facility] Comment on above: Performed By: #### B SCRAPER TENDER, BMP, CUBLD, CBC, LACTIC, PTT, HS TROP, PT, CK ####[address] Automated neutrophil %Ordere d By: Soto Simmons on 12-27-2023 Neutrophils/100 WBC (Bld) 89.0 % Normal . [facility] Comment on above: Performed By: #### B SCRAPER TENDER, BMP, CUBLD, CBC, LACTIC, PTT, HS TROP, PT, CK ####[facility] [place] [address] [facility] BNP ser/plasOrdered By: Maddie Simmons on 12-27-2023 Natriuretic peptide B (Bld) [Mass/Vol] 54.0 pg/mL Normal 5-100 [facility] Comment on above: Result Comment: PERF ORMED BY:[address] [place], [place] [phone] MEDICAL DIRECTORZEFERINO ZIMMER M.D. Performed By: #### B SCRAPER TENDER, BMP, CUBLD, CBC, LACTIC, PTT, HS TROP, PT, CK ####[place] [id number] [facility] Bacteria [Presence] in Urine by AutomatedOrdered By: Soto Simmons on 12-27-2023 Bacteria Auto Ql (U) 2+ [HPF] High None Seen [facility] Bacteria identification by s terile body fluid cultureOrdered By: Dc De La Rosa on 12-27-2023 Bacteria identified Sterile body fluid culture Nom (Unsp spec) Not indicated. . [facility] Bacteria identification dete ction in isolate by cultureOrdered By: cD De La Rosa on 12-27-2023 Bacteria Identification Cx Ql (Isol) Not indicated. . [facility] Bacterial blood cultureOrder ed By: Soto Simmons on 12-27-2023 Bacteria identified Cx Nom (Bld) NO GROWTH 5 DAYS [facility] Bacteria identified Cx Nom (Bld) NO GROWTH 5 DAYS [facility] Basic Metabolic Panelon 12-09 Creatinine Clr Calc Pharmacy 72.85 Normal [facility] Comment on above: Result Comment: PERF ORMED BY:[address] [place], [place] [phone] MEDICAL DIRECTORJIANLAN SUN M.D. Performed By: #### B SCRAPER TENDER, BMP, CUBLD, CBC, LACTIC, PTT, HS TROP, PT, CK ####[address] [address] [facility] GFR/1.73 sq M.predicted MDRD (S/P/Bld) [Vol rate/Area] mL/min/{1.73_m2} Normal [facility] Comment on above: Performed By: #### B SCRAPER TENDER, BMP, CUBLD, CBC, LACTIC, PTT, HS TROP, PT, CK ####[address] [address] [facility] Bilirubin Test strip Ql (U)O rdered By: Soto Simmons on 12-27-2023 Bilirubin Ql (U) Negative Negative [facility] Blood Cultureon 12-27-2023 Bacteria identified Cx Nom (Bld) NO GROWTH 5 DAYS PERFORMED BY: [address] [place] [id number] PATHOLOGIST [employer] ZEFERINO ZIMMER M.D. Normal [facility] Comment on above: Performed By: #### B SCRAPER TENDER, BMP, CUBLD, CBC, LACTIC, PTT, HS TROP, PT, CK ####[place] [id number] [facility] Bacteria identified Cx Nom (Bld) NO GROWTH 5 DAYS PERFORMED BY: [address] [place] [address] PATHOLOGIST [employer] ZEFERINO ZIMMER M.D. Normal [facility] Comment on above: Performed By: #### B SCRAPER TENDER, BMP, CUBLD, CBC, LACTIC, PTT, HS TROP, PT, CK ####[address] [address] [facility] C reactive protein [Mass/vol ume] in Serum or PlasmaOrdered By: Conor John on 12-27-2023 CRP [Mass/Vol] 22.2 mg/dL High 0.0-0.5 [facility] C-Reactive Proteinon 024 C-Reactive Protein 22.2 mg/dL High 0.0-0.5 [facility] Comment on above: Result Comment: PERF ORMED BY:[facility] HOSPITALSYLVIA [place], [place] [phone] MEDICAL DIRECTORZEFERINO ZIMMER M.D. Performed By: #### C RP ####[place] [address] [address] COVID CepheidOrdered By: Vianey Simmons on 12-27-2023 SARS-CoV-2 (COVID-19) Ab IA Ql Positive Abnormal Negative [facility] Comment on above: This is a duplicate Cepheid Xpert Xpress CoV-2/Flu/RSV Plus RNA by RT-PCR result to be used for statistical tracking purpose only. SARS-CoV-2 (COVID-19) RNA MARGARET+probe Ql (Unsp spec) Normal [facility] Comment on above: Performed By: #### C EPHEID POS, COVID19 FLU RSV ####[place] [address] [address] head/brain wo conon 12-26 CT head/brain wo con Normal [facility] Calcium [Mass/volume] in Ser um or PlasmaOrdered By: Soto Simmons on 12-27-2023 Calcium [Mass/Vol] 8.6 mg/dL Normal 8.6-10.3 [facility] Comment on above: Performed By: #### B SCRAPER TENDER, BMP, CUBLD, CBC, LACTIC, PTT, HS TROP, PT, CK ####[address] Carbon dioxide, total [Moles /volume] in Serum or PlasmaOrdered By: Soto Simmons on 12-27-2023 CO2 [Moles/Vol] 26.4 mmol/L Normal 21.0-31.0 [facility] Comment on above: Performed By: #### B SCRAPER TENDER, BMP, CUBLD, CBC, LACTIC, PTT, HS TROP, PT, CK ####[address] Cepheid COVID PCR Positiveon 12-27-2023 SARS-CoV-2 (COVID-19) RNA MARGARET+probe Ql (Unsp spec) Positive Critically abnormal Negative [facility] Comment on above: Result Comment: This is a duplicate CepTravelLine Xpert Xpress CoV-2/Flu/RSV Plus RNA by RT-PCR result to be used for statistical tracking purpose only.PERFORMED BY:[address] [place], [place] [phone] MEDICAL DIRECTORZEFERINO ZIMMER M.D. Performed By: #### C EPHEID POS, COVID19 FLU RSV ####[place] [id number] [facility] Chloride [Moles/volume] in S kay or PlasmaOrdered By: Soto Simmons on 12-27-2023 Chloride [Moles/Vol] 99 mmol/L Normal 98-107 [facility] Comment on above: Performed By: #### B SCRAPER TENDER, BMP, CUBLD, CBC, LACTIC, PTT, HS TROP, PT, CK ####[place] [id number] [facility] Color of Urine by AutoOrdere d By: Soto Simmons on 12-27-2023 Color (U) Yellow Normal Yellow [facility] Comment on above: Order Comment: Name Collection Type:: Clean-Voided Midstream Performed By: #### C UU, ADDONUAPLUS ####[place] [id number] [facility] Complete Blood Count Auto Di ffon 12-27-2023 Mean Corpuscular HGB Conc 33.6 g/dL Normal 32.5-35.6 [facility] Comment on above: Performed By: #### B SCRAPER TENDER, BMP, CUBLD, CBC, LACTIC, PTT, HS TROP, PT, CK ####[place] [id number] [facility] Monocytes/100 WBC (Bld) 24.97 % High 0.00-20.00 [facility] Comment on above: Result Comment: For adults in ED, MDW > 20.0 may be associated with a higher risk of sepsis during the first 12 hrs of hospital admission Performed By: #### B SCRAPER TENDER, BMP, CUBLD, CBC, LACTIC, PTT, HS TROP, PT, CK ####[facility] NRBC% 0.1 /100{WBC} Normal 0-0.5 [facility] Comment on above: Performed By: #### B SCRAPER TENDER, BMP, CUBLD, CBC, LACTIC, PTT, HS TROP, PT, CK ####[place] [address] [address] Creatine kinase [Enzymatic a ctivity/volume] in Serum or PlasmaOrdered By: Soto Simmons on 12-27-2023 CK [Catalytic activity/Vol] 70 U/L Normal 30-223 [facility] Comment on above: Performed By: #### B SCRAPER TENDER, BMP, CUBLD, CBC, LACTIC, PTT, HS TROP, PT, CK ####[place] [address] [address] Creatinine [Mass/volume] in Serum or PlasmaOrdered By: Soto Simmons on 12-27-2023 Creatinine [Mass/Vol] 1.07 mg/dL Normal 0.70-1.30 [facility] Comment on above: Performed By: #### B SCRAPER TENDER, BMP, CUBLD, CBC, LACTIC, PTT, HS TROP, PT, CK ####[address] D-Dimer High Sensitivityon 0 12-27-2023 D-Dimer High Sensitivity 653 ng/mL High 0-243 [facility] Comment on above: Result Comment: [...] coagulation studies. Please contact the laboratory at [phone] for redraw instructions.PERFORMED BY:[place] [address] [address] [place], [place] [phone] MEDICAL DIRECTORZEFERINO ZIMMER M.D. Performed By: #### D DIMER, PT ####[address] [address] [facility] Dipstick and Microscopicon 0 12-27-2023 Bacteria,Urine 2+ High None Seen [facility] Comment on above: Order Comment: Name Collection Type:: Clean-Voided Midstream Performed By: #### C UU, ADDONUAPLUS ####[place] [id number] [facility] Bilirubin,Urine Negative Normal Negative [facility] Comment on above: Order Comment: Name Collection Type:: Clean-Voided Midstream Performed By: #### C UU, ADDONUAPLUS ####[place] [id number] [facility] Glucose Ql (U) 70 mg/dL High Normal [facility] Comment on above: Order Comment: Name Collection Type:: Clean-Voided Midstream Performed By: #### C UU, ADDONUAPLUS ####[address] [address] [facility] Hyaline Casts,Urine None Normal 0-8 [facility] Comment on above: Order Comment: Name Collection Type:: Clean-Voided Midstream Performed By: #### C UU, ADDONUAPLUS ####[address] [address] [facility] Mucus,Urine Rare Normal [facility] Comment on above: Order Comment: Name Collection Type:: Clean-Voided Midstream Result Comment: PERF ORMED BY:[place] [address] [place], [place] [phone] MEDICAL DIRECTORZEFEIRNO ZIMMER M.D. Performed By: #### C UU, ADDONUAPLUS ####[place] [id number] [facility] Nitrite,Urine Negative Normal Negative [facility] Comment on above: Order Comment: Name Collection Type:: Clean-Voided Midstream Performed By: #### C UU, ADDONUAPLUS ####[place] [id number] [facility] Occult Blood,Urine Negative Normal Negative [facility] Comment on above: Order Comment: Name Collection Type:: Clean-Voided Midstream Result Comment: PERF ORMED BY:[address] [place], [place] [phone] MEDICAL DIRECTORZEFERINO ZIMMER M.D. Performed By: #### C UU, ADDONUAPLUS ####[address] Protein,Urine Negative Normal Negative [facility] Comment on above: Order Comment: Name Collection Type:: Clean-Voided Midstream Performed By: #### C UU, ADDONUAPLUS ####[address] RBC,Urine 3-4 Normal 0-4 [facility] Comment on above: Order Comment: Name Collection Type:: Clean-Voided Midstream Performed By: #### C UU, ADDONUAPLUS ####[address] Specificy [place],Urine 1.016 Normal 1.00 1-1.03 0 [facility] Comment on above: Order Comment: Name Collection Type:: Clean-Voided Midstream Performed By: #### C UU, ADDONUAPLUS ####[address] Squamous Epithelial Cell,Urine 1-2 Normal 0-2 [facility] Comment on above: Order Comment: Name Collection Type:: Clean-Voided Midstream Performed By: #### C UU, ADDONUAPLUS ####[address] Urobilinogen,Urine 4 mg/dL High Normal [facility] Comment on above: Order Comment: Name Collection Type:: Clean-Voided Midstream Performed By: #### C UU, ADDONUAPLUS ####[place] [address] [address] WBC CLUMP, Urine Rare High None Seen [facility] Comment on above: Order Comment: Name Collection Type:: Clean-Voided Midstream Performed By: #### C UU, ADDONUAPLUS ####[place] [address] [address] WBC,Urine 50-100 High 0-4 [facility] Comment on above: Order Comment: Name Collection Type:: Clean-Voided Midstream Performed By: #### C UU, ADDONUAPLUS ####[place] [address] [address] ECG 12 lead ECGon 12-27-2023 ECG 12 lead ECG Normal [facility] Epithelial cells.squamous [# /area] in Urine sediment by Automated countOrdered By: Soto Simmons on 12-27-2023 Epithelial cells.squamous Auto (Urine sed) [#/Area] 1-2 [HPF] 0-2 [facility] Erythrocyte distribution wid th [Ratio] by Automated countOrdered By: Soto Simmons on 12-27-2023 Erythrocyte distribution width (RBC) [Ratio] 13.3 % Normal 12.0-14.8 [facility] Comment on above: Performed By: #### B SCRAPER TENDER, BMP, CUBLD, CBC, LACTIC, PTT, HS TROP, PT, CK ####[address] Erythrocytes [#/area] in Uri ne sediment by Automated countOrdered By: Soto Simmons on 12-27-2023 RBC Auto (Urine sed) [#/Area] 3-4 [HPF] 0-4 [facility] Erythrocytes [#/volume] in B lood by Automated countOrdered By: Soto Simmons on 12-27-2023 RBC (Bld) [#/Vol] 4.28 10*6/uL Normal 3.90-5.60 [facility] Comment on above: Performed By: #### B SCRAPER TENDER, BMP, CUBLD, CBC, LACTIC, PTT, HS TROP, PT, CK ####[facility] [address] [place] [address] [facility] Fibrin D-dimer [Presence] in Platelet poor plasma by Latex agglutinationOrdered By: Conor John on 12-27-2023 Fibrin D-dimer LA Ql (PPP) 653 ng/mL High 0-243 [facility] Comment on above: The reference range for [...] coagulation studies. Please contact the laboratory at [phone] for redraw instructions. Glucose [Mass/volume] in Ser um or PlasmaOrdered By: Soto Simmons on 12-27-2023 Glucose [Mass/Vol] 107 mg/dL High 70-100 [facility] Comment on above: ADA recommended refe rence rangeRandom Glucose Reference Range is dependent on time and content of last meal. Glucose of more than 200 mg/dL in a nonstressed, ambulatory subject supports the diagnosis of Diabetes Mellitus. Result Comment: [employer] om Glucose Reference Range is dependent on time and content of last meal. Glucose of more than 200 mg/dL in a nonstressed, ambulatory subject supports the diagnosis of Diabetes Mellitus. ADA recommended reference range Performed By: #### B SCRAPER TENDER, BMP, CUBLD, CBC, LACTIC, PTT, HS TROP, PT, CK ####[facility] [id number] [place] [id number] [facility] Glucose [Mass/volume] in Uri ne by Test stripOrdered By: Soto Simmons on 12-27-2023 Glucose Test strip (U) [Mass/Vol] 70 mg/dL High Normal [facility] Gram stain for investigation of transfusion reactionOrdered By: Conor John on 12-27-2023 Microscopic observation Gram stain Nom (Unsp spec) May albicans Abnormal [facility] Hematocrit [Volume Fraction] of Blood by Automated countOrdered By: Soto Simmons on 12-27-2023 Hematocrit (Bld) [Volume fraction] 41.9 % Normal 38.8-50.0 [facility] Comment on above: Performed By: #### B SCRAPER TENDER, BMP, CUBLD, CBC, LACTIC, PTT, HS TROP, PT, CK ####[facility] [id number] Hemoglobin Test strip Ql (U) Ordered By: Soto Simmons on 12-27-2023 Hemoglobin Ql (U) Negative Negative [facility] Hemoglobin [Mass/volume] in BloodOrdered By: Soto Simmons on 12-27-2023 Hemoglobin (Bld) [Mass/Vol] 14.1 g/dL Normal 13.0-17.0 [facility] Comment on above: Performed By: #### B SCRAPER TENDER, BMP, CUBLD, CBC, LACTIC, PTT, HS TROP, PT, CK ####[facility] Hyaline casts [#/area] in Ur ine sediment by Automated countOrdered By: Soto Simmons on 12-27-2023 Hyaline casts Auto (Urine sed) [#/Area] None [LPF] 0-8 [facility] INR in Platelet poor plasma by Coagulation assayOrdered By: Conor John on 12-27-2023 INR Coag (PPP) [Relative time] 1.2 {INR} Normal [facility] Comment on above: INR Therapeutic Rang e [...] valves: 3 - 4.5 Performed By: #### D DIMER, PT ####[place] [id number] [address] INR in Platelet poor plasma by Coagulation assayOrdered By: Soto Simmons on 12-27-2023 INR Coag (PPP) [Relative time] 1.1 {INR} Normal [facility] Comment on above: INR Therapeutic Rang e [...] valves: 3 - 4.5 Performed By: #### B SCRAPER TENDER, BMP, CUBLD, CBC, LACTIC, PTT, HS TROP, PT, CK ####[address] Ketones [Presence] in Urine by Test stripOrdered By: Soto Simmons on 12-27-2023 Ketones Ql (U) 1+ High Negative [facility] Comment on above: Order Comment: Name Collection Type:: Clean-Voided Midstream Performed By: #### C UU, ADDONUAPLUS ####[address] Lactate [Moles/volume] in Se rum or PlasmaOrdered By: Soto Simmons on 12-27-2023 Lactate [Moles/Vol] 1.3 mmol/L Normal 0.5-2.2 [facility] Comment on above: Result Comment: PERF ORMED BY:[facility] [place], [place] [phone] MEDICAL DIRECTORZEFERINO ZIMMER M.D. Performed By: #### B SCRAPER TENDER, BMP, CUBLD, CBC, LACTIC, PTT, HS TROP, PT, CK ####[facility] [id number] [place] [address] [facility] Legionella Pneumophilia Ag, Uron 12-27-2023 Legionella Pneumophilia Ag, Ur Negative Normal Negative [facility] Comment on above: Order Comment: SOURC E OF SPECIMEN: clean void Result Comment: Pres umptive negative for L. pneumophila serogroup 1 antigen in urine, suggesting no recent or current infection. Legionnaires' disease cannot be ruled out since other serogroups and species may also cause disease. Performed at: - [facility] [address] [id number] Eligibility Counselor: Stephen Ramirez MD, Phone: [phone] Performed By: #### U RLEGIONELLA, UR STP AG ####[facility] , Leukocyte clumps [Presence] in Urine by AutomatedOrdered By: Soto Simmons on 12-27-2023 Leukocyte clumps Auto Ql (U) Rare [LPF] High None Seen [facility] Leukocyte esterase [Presence ] in Urine by Test stripOrdered By: Soto Simmons on 12-27-2023 Leukocyte esterase Test strip Ql (U) 3+ High Negative [facility] Comment on above: Order Comment: Name Collection Type:: Clean-Voided Midstream Performed By: #### C UU, ADDONUAPLUS ####[facility] [id number] [place] [address] [facility] Leukocytes [#/area] in Urine sediment by Automated countOrdered By: Soto Simmons on 12-27-2023 WBC Auto (Urine sed) [#/Area] 50-100 [HPF] High 0-4 [facility] Leukocytes [#/volume] correc suri for nucleated erythrocytes in Blood by Automated counOrdered By: Soto Simmons on 12-27-2023 WBC corrected for nucl RBC Auto (Bld) [#/Vol] 14.0 10*3/uL High 4.1-10.5 [facility] Leukocytes [#/volume] in Blo od by Automated countOrdered By: Soto Simmons on 12-27-2023 WBC (Bld) [#/Vol] 14.0 10*3/uL High 4.1-10.5 [facility] Comment on above: Performed By: #### B SCRAPER TENDER, BMP, CUBLD, CBC, LACTIC, PTT, HS TROP, PT, CK ####[address] Lymphocytes [#/volume] in Bl ood by Automated countOrdered By: Soto Simmons on 12-27-2023 Lymphocytes (Bld) [#/Vol] 1.1 10*3/uL Normal 1.00-4.8 [facility] Comment on above: Performed By: #### B SCRAPER TENDER, BMP, CUBLD, CBC, LACTIC, PTT, HS TROP, PT, CK ####[address] Lymphocytes/100 leukocytes i n Blood by Automated countOrdered By: Soto Simmons on 12-27-2023 Lymphocytes/100 WBC (Bld) 7.9 % Normal . [facility] Comment on above: Performed By: #### B SCRAPER TENDER, BMP, CUBLD, CBC, LACTIC, PTT, HS TROP, PT, CK ####[address] MCH [Entitic mass] by Automa suri countOrdered By: Soto Simmons on 12-27-2023 MCH (RBC) [Entitic mass] 32.8 pg Normal 27.5-35.2 [facility] Comment on above: Performed By: #### B SCRAPER TENDER, BMP, CUBLD, CBC, LACTIC, PTT, HS TROP, PT, CK ####[address] MCHC Auto (RBC) [Mass/Vol]Or dered By: Soto Simmons on 12-27-2023 MCHC (RBC) [Mass/Vol] 33.6 g/dL 32.5-35.6 [facility] MCV [Entitic volume] by Auto mated countOrdered By: Soto Simmons on 12-27-2023 MCV (RBC) [Entitic vol] 97.7 fL Normal 83.5-101 F [facility] Comment on above: Performed By: #### B SCRAPER TENDER, BMP, CUBLD, CBC, LACTIC, PTT, HS TROP, PT, CK ####[facility] [id number] [place] [id number] [facility] Monocyte distribution width [Entitic volume] in Blood by AutomatedOrdered By: Soto Simmons on 12-27-2023 Monocyte distribution width Auto (Bld) [Entitic vol] 24.97 % High 0.00-20.00 [facility] Comment on above: For adults in ED, MD W > 20.0 may be associated with a higher risk of sepsis during the first 12 hrs of hospital admission Mucus [Presence] in Urine by AutomatedOrdered By: Soto Simmons on 12-27-2023 Mucus Auto Ql (U) Rare [LPF] [facility] Neutrophils [#/volume] in Bl ood by Automated countOrdered By: Soto Simmons on 12-27-2023 Neutrophils (Bld) [#/Vol] 12.5 10*3/uL High 1.8-7.7 [facility] Comment on above: Performed By: #### B SCRAPER TENDER, BMP, CUBLD, CBC, LACTIC, PTT, HS TROP, PT, CK ####[facility] [id number] [place] [address] [facility] Nitrite Test strip Ql (U)Ord ered By: Soto Simmons on 12-27-2023 Nitrite Ql (U) Negative Negative [facility] No Panel InformationOrdered By: Dc De La Rosa on 12-27-2023 Strep pneumoniae Special Info Comment . [facility] Comment on above: [employer] standards require aculture to be performed on CSF specimens submitted forbacterial antigen testing. (CAP [email or web address]) Urine specimenswill not be cultured. [employer] standards require aculture to be performed on CSF specimens submitted forbacterial antigen testing. (CAP [id number]) Urine specimenswill not be cultured.Performed at: [facility] [place], [place] [id number] Director: Stephen Ramirez MD, Phone: [phone] --- 12/30/23 5590 ---Please Note: previously reported as: Comment [employer] standards require aculture to be performed on CSF specimens submitted forbacterial antigen testing. (CAP [id number]) Urine specimenswill not be cultured. No Panel InformationOrdered By: Soto Simmons on 12-27-2023 Estimated GFR (CKD-EPI) > 60.0 mL/Min [facility] Creatinine Clearance (Chem 72.85 [facility] Nucleated erythrocytes [Pres ence] in Blood by Automated countOrdered By: Soto Simmons on 12-27-2023 Nucleated RBC Auto Ql (Bld) 0.1 /100{WBC} 0-0.5 [facility] Partial Thromboplastin Timeo n 12-27-2023 aPTT Coag (Bld) [Time] 28.0 s Normal 25.1-36.5 [facility] Comment on above: Result Comment: A he matocrit value greater than 55% may lead to inaccurate results in coagulation testing. Patients having hematocrit values >55% require a special collection tube for coagulation studies. Please contact the laboratory at [phone] for redraw instructions.PERFORMED BY:[address] [place], [place] [phone] MEDICAL DIRECTORZEFERINO ZIMMER M.D. Performed By: #### B SCRAPER TENDER, BMP, CUBLD, CBC, LACTIC, PTT, HS TROP, PT, CK ####[place] [address] [place] [id number] [facility] Platelet mean volume [Entiti c volume] in Blood by Automated countOrdered By: Soto Simmons on 12-27-2023 Platelet mean volume (Bld) [Entitic vol] 6.6 fL Normal 6.6-10.1 [facility] Comment on above: Performed By: #### B SCRAPER TENDER, BMP, CUBLD, CBC, LACTIC, PTT, HS TROP, PT, CK ####[place] [id number] [facility] Platelets [#/volume] in Bloo d by Automated countOrdered By: Soto Simmons on 12-27-2023 Platelets (Bld) [#/Vol] 264 10*3/uL Normal 150-450 [facility] Comment on above: Performed By: #### B SCRAPER TENDER, BMP, CUBLD, CBC, LACTIC, PTT, HS TROP, PT, CK ####[facility] [place] [address] [facility] Potassium [Moles/volume] in Serum or PlasmaOrdered By: Soto Simmons on 12-27-2023 Potassium [Moles/Vol] 4.2 mmol/L Normal 3.5-5.1 [facility] Comment on above: Performed By: #### B SCRAPER TENDER, BMP, CUBLD, CBC, LACTIC, PTT, HS TROP, PT, CK ####[place] [address] [place] [address] [facility] Protein Test strip (U) [Mass /Vol]Ordered By: Soto Simmons on 12-27-2023 Protein (U) [Mass/Vol] Negative Negative [facility] Prothrombin time (PT)Ordered By: Conor John on 12-27-2023 PT Coag (PPP) [Time] 13.5 s High 9.0-12.9 [facility] Comment on above: A hematocrit value g reater than 55% may lead to inaccurate results in coagulation testing. Patients having hematocrit values >55% require a special collection tube for coagulation studies. Please contact the laboratory at [phone] for redraw instructions. Result Comment: A he matocrit value greater than 55% may lead to inaccurate results in coagulation testing. Patients having hematocrit values >55% require a special collection tube for coagulation studies. Please contact the laboratory at [phone] for redraw instructions. Performed By: #### D DIMER, PT ####[place] [address] [place] [address] [facility] Prothrombin time (PT)Ordered By: Soto Simmons on 12-27-2023 PT Coag (PPP) [Time] 13.2 s High 9.0-12.9 [facility] Comment on above: A hematocrit value g reater than 55% may lead to inaccurate results in coagulation testing. Patients having hematocrit values >55% require a special collection tube for coagulation studies. Please contact the laboratory at [phone] for redraw instructions. Result Comment: A he matocrit value greater than 55% may lead to inaccurate results in coagulation testing. Patients having hematocrit values >55% require a special collection tube for coagulation studies. Please contact the laboratory at [phone] for redraw instructions. Performed By: #### B SCRAPER TENDER, BMP, CUBLD, CBC, LACTIC, PTT, HS TROP, PT, CK ####[place] [address] [address] Serum or plasma anion gap de terminationOrdered By: Soto Simmons on 12-27-2023 Anion gap [Moles/Vol] 11.8 mmol/L Normal 6.0-15.0 [facility] Comment on above: Performed By: #### B SCRAPER TENDER, BMP, CUBLD, CBC, LACTIC, PTT, HS TROP, PT, CK ####[place] [address] [place] [id number] [facility] Sodium [Moles/volume] in Ser um or PlasmaOrdered By: Soto Simmons on 12-27-2023 Sodium [Moles/Vol] 133 mmol/L Low 136-145 [facility] Comment on above: Performed By: #### B SCRAPER TENDER, BMP, CUBLD, CBC, LACTIC, PTT, HS TROP, PT, CK ####[place] [address] [place] [id number] [facility] Specific gravity Test strip (U) [Rel density]Ordered By: Soto Simmons on 12-27-2023 Specific gravity (U) [Rel density] 1.016 1.001-1.03 0 [facility] Specimen source identifiedOr dered By: Dc De La Rosa on 12-27-2023 Specimen source Nom (Unsp spec) Urine Normal . [facility] Comment on above: Order Comment: SOURC E OF SPECIMEN: clean void Performed By: #### U RLEGIONELLA, UR STP AG ####[facility] , Strep Pneumoniae Ag, Uron Body Fluid Culture Not indicated. Normal . [facility] Comment on above: Order Comment: SOURC E OF SPECIMEN: clean void Performed By: #### U RLEGIONELLA, UR STP AG ####[facility] , Organism ID Not indicated. Normal . [facility] Comment on above: Order Comment: SOURC E OF SPECIMEN: clean void Performed By: #### U RLEGIONELLA, UR STP AG ####[facility] , Please Note: Comment Normal . [facility] Comment on above: Order Comment: SOURC E OF SPECIMEN: clean void Result Comment: [place] [employer] standards require a culture to be performed on CSF specimens submitted for bacterial antigen testing. (CAP [id number]) Urine specimens will not be cultured. [employer] standards require a culture to be performed on CSF specimens submitted for bacterial antigen testing. (CAP NICKIE.[id number]) Urine specimens will not be cultured. Performed at: [address] [id number] Eligibility Counselor: Stephen Ramirez MD, Phone: [phone] --- 12/30/23 1708 --- Please Note: previously reported as: Comment [employer] standards require a culture to be performed on CSF specimens submitted for bacterial antigen testing. (CAP NICKIE.[id number]) Urine specimens will not be cultured.PERFORMED BY:[address] [place], [place] [phone] MEDICAL DIRECTORZEFERINO ZIMMER M.D. Performed By: #### U RLEGIONELLA, UR STP AG ####[facility] , Streptococcus Pneumoniae Ag Negative Normal Negative [facility] Comment on above: Order Comment: SOURC E OF SPECIMEN: clean void Performed By: #### U RLEGIONELLA, UR STP AG ####[facility] , Streptococcus pneumoniae ant igen detectionOrdered By: Dc De La Rosa on 12-27-2023 S. pneumoniae Ag Ql (Unsp spec) Negative Negative [facility] Troponin I High Sensitivityo n 12-27-2023 Troponin I High Sensitivity 7.1 pg/mL Normal 0.0-20.0 [facility] Comment on above: Result Comment: PERF ORMED BY:[address] [place], [place] [phone] MEDICAL DIRECTORZEFERINO ZIMMER M.D. Performed By: #### B SCRAPER TENDER, BMP, CUBLD, CBC, LACTIC, PTT, HS TROP, PT, CK ####[place] [id number] [facility] Troponin I.cardiac [Mass/vol ume] in Serum or Plasma by Detection limit <= 0.01 ng/Ordered By: Soto Simmons on 12-27-2023 Troponin I.cardiac DL <= 0.01 ng/mL [Mass/Vol] 7.1 pg/mL 0.0-20.0 [facility] Urea nitrogen [Mass/volume] in Serum or PlasmaOrdered By: Soto Simmons on 12-27-2023 Urea nitrogen [Mass/Vol] 17 mg/dL Normal 7-25 [facility] Comment on above: Performed By: #### B SCRAPER TENDER, BMP, CUBLD, CBC, LACTIC, PTT, HS TROP, PT, CK ####[place] [id number] [facility] Urine Cultureon 12-27-2023 Bacteria identified Cx Nom (U) Normal [facility] Comment on above: Performed By: #### C UU, ADDONUAPLUS ####[place] [id number] [facility] Urine Legionella antigen det ectionOrdered By: Dc De La Rosa on 12-27-2023 Legionella sp Ag Ql (U) Negative Negative [facility] Comment on above: Presumptive negative for L. pneumophila serogroup 1 antigenin urine, suggesting no recent or current infection.Legionnaires' disease cannot be ruled out since otherserogroups and species may also cause disease.Performed at: [facility] [address] [id number] Director: Stephen Ramirez MD, Phone: [phone] Urine appearanceOrdered By: Soto Simmons on 12-27-2023 Appearance (U) Clear Normal Clear [facility] Comment on above: Order Comment: Name Collection Type:: Clean-Voided Midstream Performed By: #### C UU, ADDONUAPLUS ####[place] [address] [address] Urine culture routineOrdered By: Soto Simmons on 12-27-2023 Bacteria identified Cx Nom (U) Enterococcus faecalis Abnormal [facility] Urobilinogen Test strip (U) [Mass/Vol]Ordered By: Soto Simmons on 12-27-2023 Urobilinogen (U) [Mass/Vol] 4 mg/dL High Normal [facility] XR chest 1V portableon 12-26 XR chest 1V portable Normal [facility] pH of Urine by Test stripOrd ered By: Soto Simmons on 12-27-2023 pH (U) 6.0 [pH] Normal 5.0-9.0 [facility] Comment on above: Order Comment: Name Collection Type:: Clean-Voided Midstream Performed By: #### C UU, ADDONUAPLUS ####[address] Alanine aminotransferase [En zymatic activity/volume] in Serum or PlasmaOrdered By: Willie Banks on 12-08-2023 ALT [Catalytic activity/Vol] 27 U/L Normal 7-52 [facility] Comment on above: Performed By: #### H S TROP, CBC, CMP, CK ####[address] Albumin [Mass/volume] in Ser um or Plasma by Bromocresol green (BCG) dye binding methoOrdered By: Willie Banks on 12-08-2023 Albumin BCG dye [Mass/Vol] 4.0 g/dL 3.5-5.7 [facility] Alkaline phosphatase [Enzyma tic activity/volume] in Serum or PlasmaOrdered By: Willie Banks on 12-08-2023 ALP [Catalytic activity/Vol] 66 U/L Normal 34-104 [facility] Comment on above: Performed By: #### H S TROP, CBC, CMP, CK ####[place] [address] [address] Aspartate aminotransferase [ Enzymatic activity/volume] in Serum or PlasmaOrdered By: Willie Banks on 12-08-2023 AST [Catalytic activity/Vol] 22 U/L Normal 13-39 [facility] Comment on above: Performed By: #### H S TROP, CBC, CMP, CK ####[address] Automated basophil %Ordered By: Willie Banks on 12-08-2023 Basophils/100 WBC (Bld) 1.0 % Normal . [facility] Comment on above: Performed By: #### H S TROP, CBC, CMP, CK ####[address] Automated basophil countOrde red By: Willie Banks on 12-08-2023 Basophils (Bld) [#/Vol] 0.1 10*3/uL Normal 0.0-0.2 [facility] Comment on above: Result Comment: PERF ORMED BY:[address] [place], [place] [phone] MEDICAL DIRECTORZEFERINO ZIMMER M.D. Performed By: #### H S TROP, CBC, CMP, CK ####[address] Automated blood monocyte cou ntOrdered By: Willie Banks on 12-08-2023 Monocytes (Bld) [#/Vol] 1.2 10*3/uL High 0.0-0.8 [facility] Comment on above: Performed By: #### H S TROP, CBC, CMP, CK ####[address] Automated eosinophil %Ordere d By: Willie Banks on 12-08-2023 Eosinophils/100 WBC (Bld) 1.3 % Normal . [facility] Comment on above: Performed By: #### H S TROP, CBC, CMP, CK ####[address] Automated eosinophil countOr dered By: Willie Banks on 12-08-2023 Eosinophils (Bld) [#/Vol] 0.2 10*3/uL Normal 0.0-0.45 [facility] Comment on above: Performed By: #### H S TROP, CBC, CMP, CK ####[address] Automated monocyte %Ordered By: Willie Banks on 12-08-2023 Monocytes/100 WBC (Bld) 8.6 % Normal . [facility] Comment on above: Performed By: #### H S TROP, CBC, CMP, CK ####[address] Automated neutrophil %Ordere d By: Willie Banks on 12-08-2023 Neutrophils/100 WBC (Bld) 56.6 % Normal . [facility] Comment on above: Performed By: #### H S TROP, CBC, CMP, CK ####[address] Bilirubin.total [Mass/volume ] in Serum or PlasmaOrdered By: Willie Banks on 12-08-2023 Bilirubin [Mass/Vol] 1.0 mg/dL Normal 0.3-1.0 [facility] Comment on above: Performed By: #### H S TROP, CBC, CMP, CK ####[address] cervical spine wo conon 0 12-08-2023 CT cervical spine wo con Normal [facility] Calcium [Mass/volume] in Ser um or PlasmaOrdered By: Willie Banks on 12-08-2023 Calcium [Mass/Vol] 8.9 mg/dL Normal 8.6-10.3 [facility] Comment on above: Performed By: #### H S TROP, CBC, CMP, CK ####[address] Carbon dioxide, total [Moles /volume] in Serum or PlasmaOrdered By: Willie Banks on 12-08-2023 CO2 [Moles/Vol] 28.1 mmol/L Normal 21.0-31.0 [facility] Comment on above: Performed By: #### H S TROP, CBC, CMP, CK ####[address] Chloride [Moles/volume] in S kay or PlasmaOrdered By: Willie Banks on 12-08-2023 Chloride [Moles/Vol] 100 mmol/L Normal 98-107 [facility] Comment on above: Performed By: #### H S TROP, CBC, CMP, CK ####[address] Complete Blood Count Auto Di ffon 12-08-2023 Mean Corpuscular HGB Conc 34.0 g/dL Normal 32.5-35.6 [facility] Comment on above: Performed By: #### H S TROP, CBC, CMP, CK ####[address] Monocytes/100 WBC (Bld) 20.37 % High 0.00-20.00 [facility] Comment on above: Result Comment: For adults in ED, MDW > 20.0 may be associated with a higher risk of sepsis during the first 12 hrs of hospital admission Performed By: #### H S TROP, CBC, CMP, CK ####[address] NRBC% 0.1 /100{WBC} Normal 0-0.5 [facility] Comment on above: Performed By: #### H S TROP, CBC, CMP, CK ####[place] [id number] [facility] Comprehensive Metabolic Pane raudel 12-08-2023 Albumin [Mass/Vol] 4.0 g/dL Normal 3.5-5.7 [facility] Comment on above: Performed By: #### H S TROP, CBC, CMP, CK ####[place] [id number] [facility] Creatinine Clr Calc Pharmacy 83.31 Normal [facility] Comment on above: Result Comment: PERF ORMED BY:[address] [place], [place] [phone] MEDICAL DIRECTORZEFERINO ZIMMER M.D. Performed By: #### H S TROP, CBC, CMP, CK ####[place] [id number] [facility] GFR/1.73 sq M.predicted MDRD (S/P/Bld) [Vol rate/Area] mL/min/{1.73_m2} Normal [facility] Comment on above: Performed By: #### H S TROP, CBC, CMP, CK ####[address] Creatine kinase [Enzymatic a ctivity/volume] in Serum or PlasmaOrdered By: Willie Banks on 12-08-2023 CK [Catalytic activity/Vol] 69 U/L Normal 30-223 [facility] Comment on above: Performed By: #### H S TROP, CBC, CMP, CK ####[place] [id number] [facility] Creatinine [Mass/volume] in Serum or PlasmaOrdered By: Willie Banks on 12-08-2023 Creatinine [Mass/Vol] 0.94 mg/dL Normal 0.70-1.30 [facility] Comment on above: Performed By: #### H S TROP, CBC, CMP, CK ####[place] [id number] [facility] ECG 12 lead ECGon 12-08-2023 ECG 12 lead ECG Normal [facility] Erythrocyte distribution wid th [Ratio] by Automated countOrdered By: Willie Banks on 12-08-2023 Erythrocyte distribution width (RBC) [Ratio] 13.8 % Normal 12.0-14.8 [facility] Comment on above: Performed By: #### H S TROP, CBC, CMP, CK ####[address] Erythrocytes [#/volume] in B lood by Automated countOrdered By: Willie Banks on 12-08-2023 RBC (Bld) [#/Vol] 4.47 10*6/uL Normal 3.90-5.60 [facility] Comment on above: Performed By: #### H S TROP, CBC, CMP, CK ####[address] Glucose [Mass/volume] in Ser um or PlasmaOrdered By: Willie Banks on 12-08-2023 Glucose [Mass/Vol] 105 mg/dL High 70-100 [facility] Comment on above: ADA recommended refe rence rangeRandom Glucose Reference Range is dependent on time and content of last meal. Glucose of more than 200 mg/dL in a nonstressed, ambulatory subject supports the diagnosis of Diabetes Mellitus. Result Comment: [employer] om Glucose Reference Range is dependent on time and content of last meal. Glucose of more than 200 mg/dL in a nonstressed, ambulatory subject supports the diagnosis of Diabetes Mellitus. ADA recommended reference range Performed By: #### H S TROP, CBC, CMP, CK ####[address] Hematocrit [Volume Fraction] of Blood by Automated countOrdered By: Willie Banks on 12-08-2023 Hematocrit (Bld) [Volume fraction] 43.8 % Normal 38.8-50.0 [facility] Comment on above: Performed By: #### H S TROP, CBC, CMP, CK ####[address] Hemoglobin [Mass/volume] in BloodOrdered By: Willie Banks on 12-08-2023 Hemoglobin (Bld) [Mass/Vol] 14.9 g/dL Normal 13.0-17.0 [facility] Comment on above: Performed By: #### H S TROP, CBC, CMP, CK ####[address] Leukocytes [#/volume] correc suri for nucleated erythrocytes in Blood by Automated counOrdered By: Willie Banks on 12-08-2023 WBC corrected for nucl RBC Auto (Bld) [#/Vol] 13.7 10*3/uL High 4.1-10.5 [facility] Leukocytes [#/volume] in Blo od by Automated countOrdered By: Willie Banks on 12-08-2023 WBC (Bld) [#/Vol] 13.7 10*3/uL High 4.1-10.5 [facility] Comment on above: Performed By: #### H S TROP, CBC, CMP, CK ####[place] [id number] [address] Lymphocytes [#/volume] in Bl ood by Automated countOrdered By: Willie Banks on 12-08-2023 Lymphocytes (Bld) [#/Vol] 4.5 10*3/uL Normal 1.00-4.8 [facility] Comment on above: Performed By: #### H S TROP, CBC, CMP, CK ####[address] Lymphocytes/100 leukocytes i n Blood by Automated countOrdered By: Willie Banks on 12-08-2023 Lymphocytes/100 WBC (Bld) 32.5 % Normal . [facility] Comment on above: Performed By: #### H S TROP, CBC, CMP, CK ####[address] MCH [Entitic mass] by Automa suri countOrdered By: Willie Banks on 12-08-2023 MCH (RBC) [Entitic mass] 33.3 pg Normal 27.5-35.2 [facility] Comment on above: Performed By: #### H S TROP, CBC, CMP, CK ####[address] MCHC Auto (RBC) [Mass/Vol]Or dered By: Willie Banks on 12-08-2023 MCHC (RBC) [Mass/Vol] 34.0 g/dL 32.5-35.6 [facility] MCV [Entitic volume] by Auto mated countOrdered By: Willie Banks on 12-08-2023 MCV (RBC) [Entitic vol] 97.9 fL Normal 83.5-101 F [facility] Comment on above: Performed By: #### H S TROP, CBC, CMP, CK ####[facility] [id number] Monocyte distribution width [Entitic volume] in Blood by AutomatedOrdered By: Willie Banks on 12-08-2023 Monocyte distribution width Auto (Bld) [Entitic vol] 20.37 % High 0.00-20.00 [facility] Comment on above: For adults in ED, MD W > 20.0 may be associated with a higher risk of sepsis during the first 12 hrs of hospital admission Neutrophils [#/volume] in Bl ood by Automated countOrdered By: Willie Banks on 12-08-2023 Neutrophils (Bld) [#/Vol] 7.7 10*3/uL Normal 1.8-7.7 [facility] Comment on above: Performed By: #### H S TROP, CBC, CMP, CK ####[place] [address] [address] No Panel InformationOrdered By: Willie Banks on 12-08-2023 Estimated GFR (CKD-EPI) > 60.0 mL/Min [facility] Creatinine Clearance (Chem 83.31 [facility] Nucleated erythrocytes [Pres ence] in Blood by Automated countOrdered By: Willie Banks on 12-08-2023 Nucleated RBC Auto Ql (Bld) 0.1 /100{WBC} 0-0.5 [facility] Platelet mean volume [Entiti c volume] in Blood by Automated countOrdered By: Willie Banks on 12-08-2023 Platelet mean volume (Bld) [Entitic vol] 7.0 fL Normal 6.6-10.1 [facility] Comment on above: Performed By: #### H S TROP, CBC, CMP, CK ####[facility] Platelets [#/volume] in Bloo d by Automated countOrdered By: Willie Banks on 12-08-2023 Platelets (Bld) [#/Vol] 253 10*3/uL Normal 150-450 [facility] Comment on above: Performed By: #### H S TROP, CBC, CMP, CK ####[place] [id number] [facility] Potassium [Moles/volume] in Serum or PlasmaOrdered By: Willie Banks on 12-08-2023 Potassium [Moles/Vol] 4.4 mmol/L Normal 3.5-5.1 [facility] Comment on above: Performed By: #### H S TROP, CBC, CMP, CK ####[address] Protein [Mass/volume] in Ser um or PlasmaOrdered By: Willie Banks on 12-08-2023 Protein [Mass/Vol] 6.3 g/dL Low 6.4-8.9 [facility] Comment on above: Performed By: #### H S TROP, CBC, CMP, CK ####[address] Serum globulin measurement b y calculation (mass/volume)Ordered By: Willie Banks on 12-08-2023 Globulin (S) [Mass/Vol] 2.3 g/dL Normal [facility] Comment on above: Performed By: #### H S TROP, CBC, CMP, CK ####[address] Serum or plasma albumin/glob ulin mass ratioOrdered By: Willie Banks on 12-08-2023 Albumin/Globulin [Mass ratio] 1.7 {ratio} [facility] Comment on above: Performed By: #### H S TROP, CBC, CMP, CK ####[place] [id number] [facility] Serum or plasma anion gap de terminationOrdered By: Willie Banks on 12-08-2023 Anion gap [Moles/Vol] 10.3 mmol/L Normal 6.0-15.0 [facility] Comment on above: Performed By: #### H S TROP, CBC, CMP, CK ####[place] [id number] [facility] Sodium [Moles/volume] in Ser um or PlasmaOrdered By: Willie Banks on 12-08-2023 Sodium [Moles/Vol] 134 mmol/L Low 136-145 [facility] Comment on above: Performed By: #### H S TROP, CBC, CMP, CK ####[facility] [address] [place] [address] [facility] Troponin I High Sensitivityo n 12-08-2023 Troponin I High Sensitivity 4.7 pg/mL Normal 0.0-20.0 [facility] Comment on above: Result Comment: PERF ORMED BY:[address] [place]JaylynHaleyCLIO, [place] [id number] MEDICAL DIRECTORZEFERINO ZIMMER M.D. Performed By: #### H S TROP, CBC, CMP, CK ####[facility] [address] [place] [address] [facility] Troponin I.cardiac [Mass/vol ume] in Serum or Plasma by Detection limit <= 0.01 ng/Ordered By: Willie Banks on 12-08-2023 Troponin I.cardiac DL <= 0.01 ng/mL [Mass/Vol] 4.7 pg/mL 0.0-20.0 [facility] Urea nitrogen [Mass/volume] in Serum or PlasmaOrdered By: Willie Banks on 12-08-2023 Urea nitrogen [Mass/Vol] 22 mg/dL Normal 7-25 [facility] Comment on above: Performed By: #### H S TROP, CBC, CMP, CK ####[place] [address] [place] [address] [facility] XR elbow LT min 3V*on 2023 XR elbow LT min 3V* Normal [facility] MR head/brain wo conon 09-21 MR head/brain wo con Normal [facility] Consent for Treatmenton 12-09 Consent for Treatment [id number]#1.00CD:127 Normal [facility] Consultation Noteon 12-25-19 Consultation Note Patient: JUAN SIMON Age: 67 years Sex: Male : 1955 Associated Diagnoses: None Author: Cady HERMAN Elenita Subjective Chief complaint 12/24/2022 8:30 EDT Low [...] yet spoken to the spinal cord stimulator circulation representative. Health Status Allergies: Allergic Reactions (Selected) Severity Not Documented Barley- No reactions were documented. Morphine- No reactions were documented. Meeker- No reactions were documented. Wheat- No reactions were documented., Allergies (4) Active Reaction Barley None Documented morphine None Documented Meeker None Documented Wheat None Documented Current medications: (Selected) Prescriptions Prescribed cyclobenzaprine 10 mg Tab: 10 mg = 1 tab(s), Oral, TID, PRN for spasm, X 90 day(s), # 270 tab(s), Refills(s) 0, [facility]acy: [id number], 162, cm, 10/21/22 8:00:00 EDT, Height/Length Dosing, [...] All Problems Celiac disease / SNOMED CT 3792732508 / Confirmed Cancer / SNOMED CT 913641809 / Confirmed T cell lymphoma-3 years ago Snoring / SNOMED CT 470814021 / Confirmed Acid reflux / SNOMED CT 451767692 / Confirmed Anemia / SNOMED CT 708069453 / Confirmed Rheumatoid arthritis / SNOMED CT 002323651 / Confirmed Osteoarthritis / SNOMED CT 9643012537 / Confirmed Lymphoma / SNOMED CT 395384482 / Confirmed Lumbar post-laminectomy syndrome / SNOMED CT 299107141 / Confirmed 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 Neurologic: Alert, Oriented. Psychiatric: Cooperative, Appropriate mood & affect. Results Review Lumbar MRI. Report only. 11/17/2022. Small disc bulge at L3-4, L4-5, and L5-S1. Previous postsurgical changes and decompression at L4-5. No significant central stenosis or foraminal stenosis. Spinal cord stimulator leads in place. Impression and Plan Patient is a 67-year-old male. He has a past me (more content not included)... Normal [facility] Comment on above: Result Comment: Elec tronically Signed By: Elenita Lazar PA-C\.br\Date and Time Signed: 12/24/22 08:46 EDT\.br\Electronically Co-Signed By: Kilo BARAJAS, Mark Khoury\.br\Date and Time Co-Signed: 01/13/23 07:30 EDT Office/Clinic Note-Physician on 12-24-2022 Office/Clinic Note-Physician [id number]#1.00CD:127 [facility] Patient Correspondenceon Patient Correspondence [id number]#1.00CD:127 Normal [facility] Patient Correspondence [id number]#1.00CD:127 [facility] Patient History Officeon Patient History Office [id number]#1.00CD:127 Normal [facility] Consent for Treatmenton 11-08 Consent for Treatment [id number]#1.00CD:127 Normal [facility] Consultation Noteon 11-27-19 Consultation Note Patient: [...] were documented. Morphine- No reactions were documented. Meeker- No reactions were documented. Wheat- No reactions were documented., Allergies (4) Active Reaction Barley None Documented morphine None Documented Meeker None Documented Wheat None Documented Current medications: (Selected) Prescriptions Prescribed cyclobenzaprine 10 mg Tab: 10 mg = 1 tab(s), Oral, TID, PRN for spasm, X 90 day(s), # 270 tab(s), Refills(s) 0, [facility]: [facility] #[id number], 162, cm, 10/21/22 8:00:00 EDT, Height/Length Dosing, 98, kg, 09/24/22 13:53:00 EDT, Weight Dosing front wheeled walker: front wheeled walker, See Instructions, 1 EA, 0, front wheeled walker to be used for stablility Length of need: 99, Supply gabapentin 300 mg Cap: 600 mg = 2 cap(s), Oral, TID, X 30 day(s), # 180 cap(s), Refills(s) 2, Pharmacy: [id number], 162, cm, 10/21/22 8:00:00 EDT, Height/Length Dosing, [...] All Problems Celiac disease / SNOMED CT 6721668893 / Confirmed Cancer / SNOMED CT 544834675 / Confirmed T cell lymphoma-3 years ago Snoring / SNOMED CT 612435182 / Confirmed Acid reflux / SNOMED CT 152401535 / Confirmed Anemia / SNOMED CT 734175622 / Confirmed Rheumatoid arthritis / SNOMED CT 139158480 / Confirmed Osteoarthritis / SNOMED CT 7672688005 / Confirmed Lymphoma / SNOMED CT 669609775 / Confirmed Lumbar post-laminectomy syndrome / SNOMED CT 451398618 / Confirmed 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 CT 65568966 / Confirmed Chronic pain / SNOMED CT 212988054 / Confirmed Long-term current use of opiate analgesic drug / SNOMED CT 441118935241721 / Confirmed Added secondary to current Opioid Treatment Agreement Obesity / ICD-9-CM 278.00 / Possible Objective Vital Signs 11/26/2022 12:51 EDT Peripheral Pulse Rate 97 bpm Respiratory Rate 14 br/min Systolic Blood Pressure 142 mmHg HI Diastolic Blood Pressure 78 mmHg Mean Arterial (more content not included)... Normal [facility] Comment on above: Result Comment: Elec tronically Signed By: Elenita Lazar PA-C\.br\Date and Time Signed: 11/26/22 13:18 EDT\.br\Electronically Co-Signed By: Mark Boateng MD\.br\Date and Time Co-Signed: 12/02/22 10:48 EDT Office/Clinic Note-Physician on 11-26-2022 Office/Clinic Note-Physician [id number]#1.00CD:127 [facility] Patient Correspondenceon Patient Correspondence [id number]#1.00CD:127 Normal [facility] Patient Correspondence [id number]#1.00CD:127 [facility] Patient History Officeon Patient History Office [id number]#1.00CD:127 [facility] Radiology Outside Office 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 11-26-2022 Radiology Outside Office Copy [id number]#1.00CD:127 [facility] Outside Records Officeon Outside Records Office [id number]#1.00CD:127 [facility] Consent for Procedure/Surger yon 10-21-2022 Consent for Procedure/Surgery [id number]#1.00CD:127 [facility] Consent for Treatmenton 10-09 Consent for Treatment [id number]#1.00CD:127 [facility] Discharge Instructionson Discharge Instructions [id number]#1.00CD:127 [facility] IntraOperative Documentson 0 10-21-2022 IntraOperative Documents [id number]#1.00CD:127 [facility] Main OR Intraoperative Recor don 10-21-2022 Main OR Intraoperative Record IntraOp Document Type FTPM Summary Primary Physician: Mark Boateng MD Finalized Date/Time: 10/21/22 08:45:00 Pt. Name: JUAN SIMON Thee/Sex: 1955 Male Med Rec #: [id number] Physician: Mark Boateng MD Financial #: [id number] Pt. Type: P Room/Bed: / Admit/Disch: 10/21/22 07:41:07 - Institution: Case Times FTPM Entry 1 Patient Times In Room 10/21/22 08:38:00 Out Room 10/21/22 08:44:00 Procedure Times Start 10/21/22 08:41:00 Stop 10/21/22 08:43:00 Anesthesia Times Last Modified By: Leo MARION, Aracelis Galindo 10/21/22 08:44:53 Case Attendance FTPM Entry 1 Entry 2 Entry 3 Case Attendee Kilo BARAJAS, Mark Basilio RN, Valeria Bailey RN, Aracelis Galindo Role Performed Surgeon - Primary Scrub - Primary Laboratory Secretary - Primary Time In 10/21/22 08:38:00 10/21/22 08:38:00 10/21/22 08:38:00 Time Out 10/21/22 08:44:00 10/21/22 08:44:00 10/21/22 08:44:00 Procedure CAUDAL EPIDURAL STEROID CAUDAL EPIDURAL STEROID CAUDAL EPIDURAL STEROID INJECTION(.) INJECTION(.) INJECTION(.) Comments Last Modified By: Leo RN, Aracelis Bailey RN, Aracelis Bailey RN, Aracelis Galindo 10/21/22 08:44:54 10/21/22 08:44:54 10/21/22 08:44:54 Entry 4 Entry 5 Case Attendee Chavez CRESPO(R), Kianna Wolf Role Performed Contact Lens Technician Contact Lens Technician Time In 10/21/22 08:38:00 10/21/22 08:38:00 Time Out 10/21/22 08:44:00 10/21/22 08:44:00 Procedure CAUDAL EPIDURAL STEROID CAUDAL EPIDURAL STEROID INJECTION(.) INJECTION(.) Comments Last Modified By: Leo MARION, Aracelis Bailey RN, Aracelis Galindo 10/21/22 08:44:54 10/21/22 08:44:54 Perioperative Protocols FTPM [...] Time Out Aracelis Bailey RN, Praful MARION, Kilo Tran MD, Mark Khoury, Chavez RT(R), Yinka Ramírez Laura [...] and tissue Entry 1 Skin Integrity Intact, [place], Warm, and Skin Abnormality No Dry Outcomes [...] Position Extende (more content not included)... Normal [facility] Main OR Preoperative Recordo n 10-21-2022 Main OR Preoperative Record Holding Area Document Type FTPM Summary Primary Physician: Mark Boateng MD Finalized Date/Time: 10/21/22 08:41:36 Pt. Name: ALFREDJUAN/Sex: 1955 Male Med Rec #: [id number] Physician: Mark Boateng MD Financial #: [id number] Pt. Type: P Room/Bed: / Admit/Disch: 10/21/22 [...] 08:07 Samantha Hsu RN 10/21/22 08:41 Normal [facility] Operative Reporton Operative Report Patient: JUAN SIMON [...] EDT Respiratory Rate 14 br/min . Normal [facility] Comment on above: Result Comment: Elec tronically Signed By: Kilo BARAJAS, Mark Khoury\.br\Date and Time Signed: 10/21/22 08:44 EDT Patient Correspondenceon Patient Correspondence [id number]#1.00CD:127 [facility] Patient Correspondence [id number]#1.00CD:127 [facility] Insurance Correspondence Off iceon 09-29-2022 Insurance Correspondence Office [id number]#1.00CD:127 [facility] Referrals Officeon 3 Referrals Office [id number]#1.00CD:127 [facility] Consent for Treatmenton 09-08 Consent for Treatment [id number]#1.00CD:127 [facility] Consultation Noteon 09-25-19 Consultation Note Patient: JUAN [...] were documented. Morphine- No reactions were documented. Meeker- No reactions were documented. Wheat- No reactions were documented., Allergies (4) Active Reaction Barley None Documented morphine None Documented Meeker None Documented Wheat None Documented Current medications: (Selected) Prescriptions Prescribed cyclobenzaprine 10 mg Tab: 10 mg = 1 tab(s), Oral, TID, PRN for spasm, # 270 tab(s), Refills(s) 0, [facility]acy: [id number], 162, cm, 07/01/22 12:20:00 EST, Height/Length Dosing, 99, kg, 05/28/22 10:35:00 EST, Weight Dosing front wheeled walker: front wheeled walker, See Instructions, 1 EA, 0, front wheeled walker to be used for stablility Length of need: 99, Supply gabapentin 300 mg Cap: 600 mg = 2 cap(s), Oral, TID, X 30 day(s), # 180 cap(s), Refills(s) 2, Pharmacy: [facility] #[id number], 162, cm, 07/23/22 14:17:00 EDT, Height/Length Dosing, [...] All Problems Celiac disease / SNOMED CT 8502757091 / Confirmed Cancer / SNOMED CT 724213266 / Confirmed T cell lymphoma-3 years ago Snoring / SNOMED CT 912492356 / Confirmed Acid reflux / SNOMED CT 389473863 / Confirmed Anemia / SNOMED CT 372676917 / Confirmed Rheumatoid arthritis / SNOMED CT 927943807 / Confirmed Osteoarthritis / SNOMED CT 0649010465 / Confirmed Lymphoma / SNOMED CT 224651312 / Confirmed Lumbar post-laminectomy syndrome / SNOMED CT 373965781 / Confirmed 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 CT 72913316 / Confirmed Chronic pain / SNOMED CT 961241079 / Confirmed Long-term current use of opiate analgesic drug / SNOMED CT 005667177133367 / Confirmed Added secondary to current Opioid [...] Dry, Pi (more content not included)... Normal [facility] Comment on above: Result Comment: Elec tronically Signed By: Elenita Lazar PA-C\.br\Date and Time Signed: 09/24/22 14:21 EDT\.br\Electronically Co-Signed By: Kilo BARAJAS, Mark Khoury\.br\Date and Time Co-Signed: 10/21/22 14:06 EDT Office/Clinic Note-Physician on 09-24-2022 Office/Clinic Note-Physician [id number]#1.00CD:127 [facility] Patient Correspondenceon Patient Correspondence [id number]#1.00CD:127 [facility] Patient Correspondence [id number]#1.00CD:127 [facility] Patient History Officeon Patient History Office [id number]#1.00CD:127 [facility] Coding Summary.on 07-29-2022 Coding Summary. CD:[id number] Gh0bWw +PGhlYWQ+WT5EHOAnD22xcBFtj H9cA1MTTPqIDhhfGYAZFAcCAyM iiaXxBA0zbGHfMGSv IC8+TY6bKURfVzqahCYqg8A5lD S9N42zxg0pIVfpyKU6ABUqGoIg krzmt7twnJs0AVigKzdqPvSz NCBprX85CQX1lZ73Ze65iJDpyE Jgo9ajmPk2MxMxYDOcYAQ7iNzs SVdlz0JbGDFoS13inKBgw1C6 VROpqBohpMFrSbFflKU3kB3qEA bqqbuzu9oikhirKwb8kq66gQDk s6F3rFF7A4AhvjD8PNOglAQe GtpenTLJyQ8zehhgz5lkrwecCu UnRKDoMEu1BEc8IFYjsJhhMcBj QB70DVP4IJCquvThJ1PwJARs yTbvSaR1q3W0Ru8UT9SFHqxvC7 VNTUFSWTwvdGQ+UP36uj57F6Ky ArhqUan9EOHtTQK6mMZ6vC1j MSLsRPbyz9U8mZU3B5SfvdYrcl 9wz5qbQOFrEPnrL25zgWKvt8Q1 KGMkwCI9EFBstNlxAuDfcU73 Oyc+LGYwbEqqv3YvEsigi1aco1 zucZs0EjrkDNXeuvHhoDbgQLV8 j1RfVa4nMVTyiTY5yJK5sA9q BhCaSiL1UUrqP864MyEqtQGaBz nfP03vS6ZqnMC+TSTwVdn3PJYq kTmvUV9sF0VwHILculrxpBJr qTwgSW7nSGRtjfbuHBKpeP2iVR SpH0o2OzEfRxN2BQaeR2HuUXWr yxmrQq75jG8eOhDxTrJ5SMfw V6VnbxF8MVHqzZWfINqnXKJ1B2 0mp9S7TOWpBNWfSFY0zQQ1gB0z bGlnbjogbGVmdDsgdmVydGlj UIliLQlnZ762NDSgqNjfKtYxSP luZyBEYXRlOiAgMDMvMjEvMjAy MzwvdGQ+XYFoRGK8nUuqDXFx lUJwTSahDm2noUtfkIlzZZ8xKO GafuerTUUqzA0rAXYouMBxjNpn EF9pMIUgjrkva975UdDlWJD0 JYPbiTLeN6FmoL8nDfXiRIXeTB KuV3JjtKUzETrhS222XIkmWlH4 GNXqgjIbC2NpDZIacGehSxD6 y6R7At3Vj4LnwpovO6ValUVzRb HyYwsaCUp9I9JnEzokwMG+PC90 TMVyOA92EQt0LUZ0uTorSOmm YNUrO5VjlA9dFjMnRKVvXGIcYe c+PHRhYmxlIHdpZHRoPScxMDAl BkNkgLqqRV2xIe3xKOQcQZUj pQlenUCrLdPhk9ocEAYiNSgrNP 3mzWtrJ3HxhKY7OMSla3f8Qx52 S76uO9SacMM+QZRnpYX3zDM2 lU9pVcRzQuD2XWtlK741TyBqeU IvNgbia3fti4fgrSp7GoK8SFIn afAgoZqlGLL1v7MuTp20M68x IHdpZHRoPSIxNSUiIHZhbGlnbj 9flX2hDy8+BMSrfCA7uTT8nP2r IoRyEeQ4OYjpX780CmTovMUv Yxgyy3xvu5fqmDf9QuXwPAPjmj AltIywHMQ0z0PwGl90S5CoyIjw e7HeKpd4jz05hMTpl0A1hXP6 Q6YiVTTdapceoPJlqDmaRV7tAU MuzbsoFSTqpI3cBOHxC0a0MpGa VhP6SFswU8RcheQ2RZUxyCZv LEDwdKXJzZ2ibdhnb9zgjmyjGj EtWUGgFGr1KSz4NNJdyKewIlHk EUX4MhS9VGC0yJVrfM3hlAeo khuagR1nKwz+RNJ6iGRtpZEEUT 1lOjwvdGQ+CJJcMOJ2vMrtXBvd DXGhwN9sYAAsT3m3GwSdWxU8 VEqwS6KjgnM4KRQrcTYxLSUqmZ TJxC1xdtiku6tmakmjKpTnJPMo LEy0WRd4SDOajGyzAkLoJYE8 QmO6VFG3jUHsdG8npPogygfxzL 9wOyc+SbhirLiqXLU4XSw3Z8Mh Owy7BPBezYvaQM0qjSIeTLyd Jc1lvKrckKgyAM8zZWLsderui8 28YzLqs0ikIJSuhEXvIKksCKJ1 V81ur7E5WSUqUPJiXHW6bNW0 rA7zuEdpyrvitXBwuDlsgaQpaS ozPVmdSGukR993VEOorRjhHvUr ZYi8C0TtZjl4HKIqeUoxNK7r zWJsSBjiVt5wnPnsmUrbXE2yRD Tjrahvh107MwVtc3ngWLSpfHBl BWwjHZG2D13xr6D9NOByAVDb GVD2bNU7rG9rrWwcstufqSIteZ bvvqJolYmjJDdfIHzjC140IUKn bKnmNiShgSq5U8HxSfk3UKVk nVxyTS4scEDjHBmfTu2xoJwnlS zqHV3qRXTfcqvpj138LwEue4gh FYZfbMQyYPhuLTG7O99gu4S6 ZYTyLZNsLWJ2wNK8qH8pzZpkuy ogbGVmdDsgdmVydGljYWwtYWxp G449QWPomYsbOoAbqChfwmYu CJpyNZm5L1WnToljyHZ+PC90YW JoYW73pBCzyCRek9wqyWs5UoJx BJWoNMP3cSfyESzka0TkOHBf D13xrIUjs8C2IWRsfQomvPYbJe NtwHW2eG1hNGmzmevac3zumgca Ojgav6rlux60lJ36A74sCSfg YRIvTEPvHDGpYBOgeHhsab7bdK 9wIi8+BGFwxUD8rIP2lI3gYPLf ZsB7BZpfY935FiTpsOUeZjpy q4zqw1ojrIy9JhT6OFQywhIgjN ecFHP6w1AgCv76G48gWUzdJKEy YQJoSKWrYQPpsMfghf4ucK7q Ii8+AQOdcXL0qHX0wE3zZoSjIz F4CNbvD084KfYacLFrUfkbR18h B0KvkUR+LMJxTry7RAZarDpv WP3gmFOlFIusAy7fXCC2MlPlKw UcHQcnO0BxVTIjlibiokudcOB2 RQVrOPWvwY52Em1zdPvbRCYz zWUVfK7kixzub1zehzhgEzTtGX BmYMs6ZWs2ISYhkVqsZoFpIHH7 LuO2NLR1gYGaxF2atSaaphop rL9eS7RcXCWyyfxwDj29wR2fWz DoQlE7ZJwfWpo+PYISD66TB0LT QORNJOHBYAJSFEd1F7NtZkq2 LRGhyYyeXD6hjEAyURxdLj6caP wzuQzhRY0nFDKnmfaqHJWvbM4o JNVzpUZomAzbMC5dZTYhnjmx x995EoWlMVC4XXBmrCZuX2SlrJ 6xJwAdANRiHZWfE4HvfWIbYRvk X060LXuqEbB4FRInkiPmT8Do AGFjhExdZiL0g7G7Qf8bSn6vGa 1tHBF9JD73PV40nWBxj8N6vJF9 C8QbZDNbymwyootjwRJ2CSXh GMQyaY59kAHaDYoaOe8nu9J4n7 33CLYgZWUhrN67Ur2vqAhwQSBv mBCNwJ1akmpny8tibjejEvMo EDFrJRh3WJs7QXGybTzzEyScIJ M8PtK9RDQ5rYTchH9ubIkouqld tQ3mYzt+YbMhHWFhnxA2L5Cd Okd1BFEqzWmwIJ9gzVOrJAxhUn 5zfJmznHipJL1oDKBcidxsVNOl yS2lSGNbjGFntKpiFN0yDHEs drjwy583UpHfUHH8PGBgjQYrQ5 FwyU5nCxEcCAXbIZUfT0NxsLIv HEcjL142LYglOjH4RWKyvqLp N7GrGHZypMsnIaS6m4F4Mi0ZXK taLZ42KY72kRUde5H1oNP1D8Rf IWPmksysmqxrlXV3MEDlXNNp xE90hLKpECdbZu4vn7R0k840SK MiDXQcwD84So1gqYegEUXskSIR dA8efjpds2dxygjvSlUpENMz VZn4SLu3MIFcqJaxCyViNEF1Lc S4EZV9uLClfA1zrSxttkqgiP2c Oyc+IQUthfWUYG1bO0NbOJ97 EA40VX12X8ZfExdmpJRlvYP+PH RhYmxlIHdpZHRoPScxMDAlJyBz dRmuBD4eTe5qHGZvDZTyoDod cPFtYeDej1elZKCnKNhiHK4buG cdN3BdoMG8CURtx6p7Ag84J13f V9EobPP+GOUebBC2pTV9tY7j AuByHsG0DTrgK431TnFicNBtYh crx4xdd0aixIj8BpEuIXOswkEk zRoyPTL1g0JqYo87A25iWNhn KHSwXXEpXUGhIQOchIgpua2ahG 9wIi8+ANOfzDW0pAP9jD9kBhEi JtR8SObtF560KdBqnDEuZeei Z41jN9FneXX+KVKpBia1HEDgiX wxDP5sjCIaDHlaSi4zLBJ4KtRz OtGhZNfgJ1RdWSWhljeukodx hFJ9EHIpZXUabD02Jq4bhHnhQp 5bKNOxMRI3QLEyvNGsQ6AvrQ4e QcBtMORlGQFnK4HbdBGpFCkc A105XBwjBoC4GAAewbNoR8DeDA DnqUobXvH4k8N2Pz7VpTfjjWVv WI4jIyEpGQv0S7LdQim4TLPx vGstOS4nlXHeZOmzVh7bzErilC hpBG3tVXQqzmezz910RtOgt9gf KLMreFXwLZowDFR3T21kw5J6 FPNeKKOuRSE8oUV2gD5kqRpode ogbGVmdDsgdmVydGljYWwtYWxp U548CAJftDrnMzTKEzh3J5Fh Hae1RCEzeTexDS9goRRjITnvJo 8nhHwhrBavRN8nDJWfqhhhp219 BzSul4lhXQOqrYKeOOhzPWI6 K85iy0F6DOIaSMLbEWU3aCN1rL 1hbGlnbjogbGVmdDsgdmVydGlj COjzKLbmI800CICdyFuvJp4U Spx3S7LnKba3DNRnqKzeDU4bdY ZbPLspDu0blYkvaGqdIS0xYOEh ohhmy632WcRbk2qdDXXmtGMw UPypZSF2I09xd4U9LSIrMMEkPR L2sTC1jC4hwDytllobaBXzgAsj fiCxyFsjMXixNEquA975WEBj cDsnPlBheWVyOjwvdGQ+PC90cj 32S2XnPkmsIaa0BUCtTEC1oVS1 yZ9qXKEiSZcdm1V9oRT1D1Mg cmRl (more content not included)... Normal [facility] Consent for Treatmenton 07-09 Consent for Treatment [id number] Normal [facility] Consultation Noteon 07-24-19 Consultation Note Patient: [...] were documented. Morphine- No reactions were documented. Meeker- No reactions were documented. Wheat- No reactions were documented., Allergies (4) Active Reaction Barley None Documented morphine None Documented Meeker None Documented Wheat None Documented Current medications: (Selected) Prescriptions Prescribed cyclobenzaprine 10 mg Tab: 10 mg = 1 tab(s), Oral, TID, PRN for spasm, # 270 tab(s), Refills(s) 0, Pharmacy: [facility] #[id number], 162, cm, 07/01/22 12:20:00 EST, Height/Length Dosing, 99, kg, 05/28/22 10:35:00 EST, Weight Dosing front wheeled walker: front wheeled walker, See Instructions, 1 EA, 0, front wheeled walker to be used for stablility Length of need: 99, Supply gabapentin 300 mg Cap: 300 mg = 1 cap(s), Oral, QID, X 30 day(s), # 120 cap(s), Refills(s) 0, [facility] #[id number], 162, cm, 07/01/22 12:20:00 EST, Height/Length Dosing, [...] All Problems Celiac disease / SNOMED CT 5320351714 / Confirmed Cancer / SNOMED CT 777980261 / Confirmed T cell lymphoma-3 years ago Snoring / SNOMED CT 541043006 / Confirmed Acid reflux / SNOMED CT 049567365 / Confirmed Anemia / SNOMED CT 788446283 / Confirmed Rheumatoid arthritis / SNOMED CT 807095885 / Confirmed Osteoarthritis / SNOMED CT 1650173685 / Confirmed Lymphoma / SNOMED CT 318763853 / Confirmed Lumbar post-laminectomy syndrome / SNOMED CT 869509829 / Confirmed 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 Injection site well-healed Neurologic: Alert, Oriented. Psychiatric: Cooperative, Appropriate mood & affect. Results Review Cervical MRI scan. 02/18/2022 [facility]. C4-5 moderate spondylosis with mild crowding of the spinal cord. C5-6 spondylosis with mild to moderate crowding of the spinal cord. C6-7 mild to moderate (more content not included)... Normal [facility] Comment on above: Result Comment: Elec tronically Signed By: Elenita Lazar PA-C\.br\Date and Time Signed: 07/23/22 14:29 EDT\.br\Electronically Co-Signed By: Kilo BARAJAS, Mark Khoury\.br\Date and Time Co-Signed: 08/19/22 15:59 EDT Office/Clinic Note-Physician on 07-23-2022 Office/Clinic Note-Physician [id number]#1.00CD:127 Normal [facility] Patient Correspondenceon Patient Correspondence [id number]#1.00CD:127 Normal [facility] Patient History Officeon Patient History Office [id number]#1.00CD:127 Normal [facility] Coding Summary.on 07-03-2022 Coding Summary. CD:[id number] Gh0bWw +PGhlYWQ+CA9GMXAuI72vnIArb V1SA3mZQZ2ASPROILUFQL8OMI6 vwUA3FOeaW7FjtcWb SqehhQIlFX52ITc4KSU7rIveWG hobC8yrLNaD8w3BmQxNB48lY37 YBfuXJNmMbC6XcHmgvmohZYa U5zeFrCeuWHcEzg+PHRhYmxlIH gyPEZrFXtiPLVcPqZfyTqtTU8a Qb9pKDPlNLFsyXutnYLkIgJy z3zlPZJxOAroGH6qjRyeQ5RqmA Q8ZGZso7i2Il14tTF+PHRkIHN0 wWzyGHfld436MdShy4dbFZJ2 xZQbCIimAHS2E29lq5N0LMUgXI BkXJG6xDP5nM5etKmmqrozB8Tp sKGhFfM2WRP1kLNveO0urVxc fpgfkD8xJvn+J17UQO8XTXKLJU 1EYcf2L4ReBiomrTT+RV37QWTr KE41eTNihIPza0zvoXb4CaXf PNYiDXU8fYluLYoyj8CuYYZkT9 0scSYcm4Z9IEOefTiymYJuIgHt vEE0uC9tBQrtxmhko0azbjqx Gkfit5welc27nA34U46vWAopKX DwGIP4JHMvPCOegRmlbk7lfC4t Ii8+IDvuz9lsa0gxfPb8WqNu NLXcixEhkNbhIIC3v7MnHa32W4 AmpLony6NyTyg0lw54jNMcb9P6 iRR3XMbpHTNxdO6rIEmkCaX8 XDYiCaQnuH31eFTpOLgxIg3dhS shrAjrZF2jNFQvpljqUMAtaQ7w AAXhiAIbdTyqID4qIJJudkhm k084CgPlGUV9OHKbmZBiF4DfyJ 9tCdRnQZMwQRXjK2KuuUWlVKoi F480ZJpzNqR6BGQpslHoA5Fn THEfaGwcBxF7d7Y2Kp7Sr2Kvmy qwIBB2AZcvCDAkVyFpChQhClK3 K2HxQth1SHAwgPzpUU7lJ9Pi HJHzztgbaqpxkHG9INYxYOBfnH 29cSQlAYfwPi4fs8B6z306ZKYs LJXmrB65Mo9akVqtYEFqqCDX bS8xitplj2oxoeoyIhFcVUYrOA b9AMr8MKOdpRyyNeMlEHU3EvK2 HQF0hMPjtS8nrBidfyrtsT6j Oyc+N35jgX5bZKN0YUG7hlrpRW LiapWwPE76GB67R1WfGajnzSHc bGU+ODSmyoRqlXdcSG3uPcLx d8smz8VbTClkT4IzQEEqTCcfTh t0SWPgOGC1cUU7fH5xVECrNOqa f7U1eDP4H1CobfRnjo3cu6pn YTKrRZdwM88zpBTjp1F6UCGxzF V6FKGrcPcqZaMgfC60Dmo+PGNv vFrph5JyQnjsd5xkm8ffvTp2 DrYcDIYaxgJzeOsuKGC0v4IaQy 90Y90nVZkuNXJtTCCsYHAqOPMv pSsuat6boW5tQr9+PGNvbCB3 qMY0xU6jOBFrObG8YMbpV898Kf NgwDTnZfswd9sdt0xxbUs3SwXy LDNpznUjbFyuTKO3w7NxRe37 K60cMExvLWPvUSJzPKJfZLZjbO rvph6zzW3mYp7+PS2xp0hojj74 iR79qLN+XQTyGIO8qXhwVSbw JFOgrL6nBUplFoN2SPOhJaUujL 62dNCgLUzzOd5plGbvnTxdCU9n VASeexxva799GfIfj9vuPQTm eXFhGNwfDSE2G38nx6G5QTYnLX JhODL4fNV0eM1ntRghvswamGEh aLpjxcHiqGbuXCroIVxjR912 IHRvcDsnPlBhdGllbnQgTmFtZT n2D5GoVlf3OFNtaBceWM4nfPOg NTlgMm9llKkhdUgyBE0oKPPr vidog534BwSxv6byOCQwpIGjQQ obFJE0F35zh7Z1LGVoACBoOWC3 cAG4mJ6kdJdstwdqeMEfiYbw riIndOjaDUouBBjxU686SZFnyS fiQuLunjUaOQUfsTH9OL29XU18 zPNat6S4gVV9R3XbTJGktwmn ngtixXI1BIRuSMBtqY28Fg7tbR rnLv2zKULyYSF0GQTnzWPpR0Cm tS7cPaMrYDEzBAAuN6KcjFLc OTanS713RRelKwT8NJYldjZnE6 EzXJEylKtcQuW0k2J9Gk9EC7B2 FQ74WC28zKYuc8X6dKI8R8Yu GSPvanfqwgyejSE4FHNnNPCmtI 51Il0ogWaqZd9dEGElDND7STHk qQXoA6TasS4aZgLoAROnJAVh N8VlwJVcUErpI752JDshZkP6IO WmmjFnO6NqYBBivVfvPzK9l0D6 Iv8HIFy7YI39YB35tJVbw3H1 lWT5H8NyEWFrfophsiwzeBI8EC UiWORfnJ00Ay8hfAwbNp1jLRWr LCX9YVTviNTeK0IpiH8uOsZq DHLfLICbO5XtsJPwQZsmY300XJ mmPlF5KLHczdWtV7YqLYRrcDfj IbB6p8D2Ny3ICWPfSD47NHB4 lOU5AX35NJ35A6NhOkkglGEweB U+PHRhYmxlIHdpZHRoPScxMDAl AhAlxJaoAQ5uXc7fTOYvJAGg eHttgKVhOpAop5orQYIkTDitAT 8fpPgoE3WhgMO9RYPlc4i2Av86 F68sB1RfiCB+ZNLkoEN0hFS9 oV9yXqPbPoM3XPdkW146AyWspF DpPhpra1kkc1inzMq8FwK3AEKo qkVhpSeiHYV6e2TxDp05K05y IHdpZHRoPSIxNSUiIHZhbGlnbj 1wlR8eRl1+GTEibHE6tOA9fT9m RtOpJfX1JDvfS998NgUqlTYt Uiqos1afg5fggTj7ZnBpBOUdcm HlnWtnFTY1o9QuJq95D1LidOfj z0MkPvs2ep12nERbl4O9hFF0 E3VtSAUzvjrkzPNjkItlUG6gZD EzxzipLUCfbH2oDCEiU7f5GzYj GqC8KMhiO2PvbwP6NMHbkILg OIddKPW6L28pt2L4AZNdNEFdKJ D0jFI8eS9kxJtjeyiabESomWqk fzYekWctKJhpZPssV100DYWq oMpmSEZuvM9dGXNbjPSocIcfSM 5wAIOsrmjrEg6OVJ1LOMuDVOkt Z4vFRkeKOiQFZH39SI75bEUd p0B6eZK4Q7DuPXIuqvffqakjhI Q8GCIzPRMenX91mCEhFJkzLd2p y3N0z688XDLlIESelL95Cn2j sMxpIGQstKHIsO9yvimfg6bdhf ziIbOwTUUoYFn2FRb8MPXpmGmh AkPjUYO8ZzJ4LXY2mOEqaE2b kOirpvnevE1uRtn+MDIvMjYvMT e8WbaqeHB+AZFmYLH1sHteLQja RCVvaS1qRSSoW0v5ZmOuDnE6 YDcrG5WoCQFaywceXu81nB2pDy VeXlI7TPjfI8CunvU1DQIjcIJl TNyhXHI9L55rx4G5EYHdOUZo FHI5lXY2vV8xjHtatzkeaBApwE hlgjLadPezBMheYFfoK325YFTh qFweXzL7JIeqFIYrZV92NU05 bZKam6C5nEK8W2BrHFDmuftizx knxXO0MXQxRVUvxD56hDLfUKhu Gi1ha9X8s878QTWiVOMohQ16 Ws8jiVxeYFExkXYOtW4ranjlv9 gucxlqFsQlUVYbYWa7UKb1AMTu fBkqVfTfYWS0WmV1IHP4gDKs lJ4dwWaiimiscL6pVew+TWFsZT wvdGQ+WSEbFIS7iXayHVeaRNJm hF2sYOEsS6l2FzPmGkR9NGet Q6VuCITotylcBa60rI9lTdOoOh S7CNvpY5UomlJ9OUBkvEOgYVuq RFW3M46te4G1HCRgRXDmAYO8 sOP0vA4jdGgzddcquKDyfKmxna DppCcnWDqkJDjlZ091ZZZtvDyi RiUifH3eBDAnDMvwtKExnAvr dGQ+MV33ri50O3QxLpkdLpg5JU KwOTC1dWH3dJ2wLXGiBKarn8M0 jDE8O3SvdwIhaj4oy3mhQDBx ITpcJ57bmVGbl5H0HMNseJS0FD OtjMzcVdUrpJ70Zhs+PGNvbGdy s2WtLrywu6cjo5suhHg5JbEr UHCqhhLxdGgeFHC9m0CpDi05R3 9sIHdpZHRoPSIzMCUiIHZhbGln tc7lzE3jAc3+LWWneZI0kAF9 mA9fOrWsPvO3OOjkC254MwVciA SaDhpds4pkp9arbZm5YkKpHTBi poYimHpvAYM8g4YcAu33E0Ss zJdem7AuCou0rt57xMAxu2Q7fB D5E7VmYJHtfsyscQTnzKwiGR4d ACDfxvtqZCNdmY1tQDUlJ3k0 EiQrZfR5JMubW2SdrnU5WXRnrQ ClGVAamDFGsM3pyvdig4sjllun FySlAXTsNOd9TKm4VWWdbBek GiZrPRI0DhI9WSR6aLPirS0vhI oantjqsE1aKxv+GXj1q3ldlXXa WR2uvYQ4SK51TS85bRPot2N7 cDA1F7IoBWWuybwmxqymmWO8OB NrVNUvyL75Ys1ijWwnVp2aOZKd OUY0JBDrmMLbY6OtcE5dFbFw EPIcMAQgU1RciEVqXXlkU979HB ynJyV5NURcsdYjO8BiWQMkjOla XbD9v2J2En5HSZ17AI23PG03 zGZgj1D2yOB0U2VdABWmdxdgiv iwwWV3URTuLKLkiB38Of4yrMih Po9xEQIzLZU0IDKzsHLyC2Ll sU8fImBcFKAoGOYiY8PrzUPyVG zbL268RTutJaQ7WJCqqbFhY7Pm BDRsaSvzKlE5o2G4Zd2SUr44 NJ30DN27eMRcj7J2hOF4S5CrGS ZwjatsqrqvdTT6NYQvLMGnsQ79 Ns1koNbaNc0sCYJiBWH4ONFf iEPuN7CbzM7zPhIwAUIrSGHyM3 OlnLVkQGigL899JHrvQxA8STBq ceJeS8CdDEXfhUmtPfW4u1V5 Hx1TMTcjpcz6I2KiHimtgVO+PC 27DHTmQX54xPQtgALbi8belQe8 OrYxQOEoWRK5tIhoDIxsd7Ad ZXIt (more content not included)... Normal [facility] Consent for Procedure/Surger yon 07-01-2022 Consent for Procedure/Surgery [id number]#1.00CD:127 [facility] Consent for Treatmenton 06-12 Consent for Treatment [id number]#1.00CD:127 [facility] Discharge Instructionson Discharge Instructions [id number]#1.00CD:127 [facility] IntraOperative Documentson 0 07-01-2022 IntraOperative Documents [id number]#1.00CD:127 [facility] Main OR Intraoperative Recor don 07-01-2022 Main OR Intraoperative Record IntraOp Document Type FT Summary Primary Physician: Mark Boateng MD Finalized Date/Time: 07/01/22 12:45:24 Pt. Name: JUAN SIMON D.O.B./Sex: 1955 Male Med Rec #: [id number] Physician: Mark Boateng MD Financial #: [id number] Pt. Type: P Room/Bed: / Admit/Disch: 07/01/22 11:44:12 - Institution: Case Times FTPM Entry 1 Patient Times In Room 07/01/22 12:39:00 Out Room 07/01/22 12:45:00 Procedure Times Start 07/01/22 12:42:00 Stop 07/01/22 12:44:00 Anesthesia Times Last Modified By: Aracelis Bailey RN 07/01/22 12:45:18 Case Attendance FTPM Entry 1 Entry 2 Entry 3 Case Attendee Kilo BARAJAS, Mark Bailey RN, Aracelis Basilio RN, Valeria Flores Role Performed Surgeon - Primary Laboratory Secretary - Primary Scrub - Primary Time In 07/01/22 12:39:00 07/01/22 12:39:00 07/01/22 12:39:00 Time Out 07/01/22 12:45:00 07/01/22 12:45:00 07/01/22 12:45:00 Procedure CAUDAL EPIDURAL STEROID CAUDAL EPIDURAL STEROID CAUDAL EPIDURAL STEROID INJECTION(.) INJECTION(.) INJECTION(.) Comments Last Modified By: Leo RN, Aracelis Bailey RN, Aracelis Ross RN 07/01/22 12:45:19 07/01/22 12:45:19 07/01/22 12:45:19 Entry 4 Case Attendee Javier Virgen Role Performed Contact Lens Technician Time In 07/01/22 12:39:00 Time Out 07/01/22 [...] Primary Surgeon Kilo BARAJAS, Mark Khoury Start 07/01/22 12:42:00 Stop 07/01/22 12:44:00 Anesthesia [...] and tissue Entry 1 Skin Integrity Intact, [place], Warm, and Skin Abnormality No Dry Outcomes [...] Yes La (more content not included)... Normal [facility] Main OR Preoperative Recordo n 07-01-2022 Main OR Preoperative Record Holding Area Document Type FTPM Summary Primary Physician: Mark Boateng MD Finalized Date/Time: 07/01/22 12:25:32 Pt. Name: JUAN SIMON Mis Grossman./Sex: 1955 Male Med Rec #: [id number] Physician: Mark Boateng MD Financial #: [id number] Pt. Type: Room/Bed: / Admit/Disch: 07/01/22 11:44:12 - Institution: [...] Comment: Complaints of Pain: Yes Pain Comment: 7/10 lower back pain Operative Site Yes Marked [...] By: Samantha Hsu RN 07/01/22 12:25 Normal [facility] Operative Reporton Operative Report Patient: JUAN SIMON Age: 66 years Sex: Male : 1955 Associated Diagnoses: None Author: Kilo BARAJAS, Mark Khoury Procedure Procedure: Caudal Epidural Steroid Injection with [...] 12:18 EST Respiratory Rate 18 br/min . [facility] Comment on above: Result Comment: Elec tronically Signed By: Kilo BARAJAS, Mark Ocasio.br\Date and Time Signed: 07/01/22 12:45 EST Patient Correspondenceon Patient Correspondence [id number]#1.00CD:127 [facility] Insurance Correspondence Off iceon 06-12-2022 Insurance Correspondence Office [id number]#1.00CD:127 [facility] Coding Summary.on 06-06-2022 Coding Summary. CD:[id number]:[id number] Gh0bWw +PGhlYWQ+DL6OIYNeS87qkWLxo A0VY0eOOP8ANSWCLJTAOD4VZI6 cjEL1DRsoT6WblhRl XozzxMDpVN27GAg6BNV7vEegAJ oxgF3vfGYmZ1a7KzIsLT38zF15 MAezDGQnHtA6ZwBykbnxkHPo N3kjNbGmxBNvUqv+PHRhYmxlIH jeEMFmBZknXFLsWiGebEsnBT7c Bo6kKYCkDFQxiRvupADtKdNj z1aoKVNbWRtfRA7lqLduL7YqoM V8GQYhl2z1Kx03pYW+PHRkIHN0 mRcaOYrzz739JgSfd1rmRUU7 hBLcARluCPJ0N05ny1W9EATjAX DgIEA8oHO8jF0eeZnyfkgrH5Mf uBGxUyB6KDC2hHBigD1ygLsd dxosxA7sZbh+B09HEQ2RCXVFOU 1KQvn6A9UhQazjeFC+GC92YELq CP51fHOrnRMio1wiwFu3XrFt WCGfTSZ2yUjuXCnyj1WgBMHyY0 1qnBSjr0S2IPFpjJwxeTNxJvNr yEQ2yQ1gLTgdcyajm3cuxnkq Kqvtn0vdtc31rR95M84sQWukJK XiGGH0XMEzRUBreGgwoc2haX9n Ii8+BKtys0alg9dppPv6MlGw EGScyhGhuSqhKVK4c1TkDn60D7 AndRgmh0IyZvj1zw24kZLzd3Z9 hHY3MCpkJICbsP3uJWjeTyF8 NEVfVvOilM80jTEgNJspGh7niE nkmTckLB6lEZArdgdrFCGkdT8z TXIcnIJhhZsfZE9xHJVphfbm i393IlVfGET8HGGqsYXxZ7JxvK 8rIxQgFJTlOCFfF4OikWNpRUqx W986BLlcKjR8SVHxffPsR4Op MOUcgEvaJoX1w3W2Uh1Nk1Enzr elKKE7MSxlPQZrSyM4NwMaApR9 X0AkYpn4MXHizXrcXK8qF6Sg JQXfoxwmugtxwQP5QVYwBOWylB 76hZLhKEtjOb6em2W0b346KIXw LAVreK22Xl9xmOfdORJvrQUH uW6cxvqsq6mjbeskYuRjXDNaQT d9MCy5GDJzpLuzAqRfWDJ7LuP5 ACE2yNZanS3tqHzlrgbllW0b Oyc+A64aaH6fIOL2UFH8qfbfCS XcjzLjWG53YC61W0ZaPzvleRVd bGU+KXNiyjIynQhlPC1dYvLt x5duf9WqSIoyA6BoVOLiRHecBh v3GNVdTTA7wZS7qH0wVBWsSBfm t6K5lTO1U1VyksEnqu4vr7in WXErZAlmB64gsCPtz2H9PCVqbI N4OPLqxGnzDqCroF34Ugz+PGNv bNrnp4YhOlnco2taq4yuuWh6 LhTaIZRdggJvbKpjLMC8j0UzYy 35L15lEJcoOEKnSHMcKKYaLUUp mBuhxy4wdQ8sQp6+PGNvbCB3 mTI5hK2fQFYtHmK7HFokN635Uh NuqJZyKodbp2yfz3ceuYg6NbWv NEMsitKvoDooSQA9f5IdVg79 M34mRRrhVWEnXRVmEGEwRNUyxJ ahru6yuW6yGn5+XG0ym3ljll23 jK25yFJ+GOZnMWC7hHqvPFlr OVYqvD1qNEogIoO0FWQxReCkzY 49cWJqTMaqIy4hbMnpxPqwBW6q YUPsnmurg950JhOvv4yzJEAv jDXaCBigRRD9D82tp0L0PADbLG DgVQS4bVR9cD4uvAtzuwqwlMZy pZgvvhHdeYkvREuaPJqlV444 IHRvcDsnPlBhdGllbnQgTmFtZT m7U0PjUag4NBAipWzvTY8caULc IXimUb0dtSagrKibDM9sIRIw mzggd084EfUdr8ndYKWxuDMjGS jfKEY5D52tk4Q8KEPgSRNvJZG7 mHW5qR2ccXidhvmfuFNntXis wyExaLboJIfqAXceR214DVSvpE nvHvLjflGfDGDmxTY9GN79YX44 xUTjp6F3jOW8X1RjRWEtsgop bbodyLF3DUZjEDIinA17Ju0ufY olKp0kKNLoSVN7HIOojZTjS5Sr iQ6jFcGbXYKrKCDeM8TmeUWr KByeP471PFamAyC1FPCloxVtT4 NxELIjiYjjBiX6m0C5Vw9MR7V5 MX16ZK85xHDwy3X6qXW7X6Bp DDSklwhzlygssWI3QNHpHPWutI 08Id5pxPylVh3gKXObXDQ6NKZt dGHjB6QzxE9fHbMaMPUeTDGr X2GbiWPnMHjkF963EQpbNaF4PP OotgUuN1AsQOUdoPxyPcJ2d0M4 Ul3KIDg9JZ69CO68bCAtv5B4 rSW8I0ZnVROxgpsmwaoblDF3YC ObMDGbbL52Lg7opEwkCl9iEDRk JON6ZBIwnKZtX8VlwJ7eMsHt NFBkEJOxF8UqxNToYWawS465AE waXeN0TYCxybKpZ7TxWWNycXkb ScP7f1U3Nl5UFGJkQQ11XUV5 dBI1EF29TS14S6LhHbfzrRIxrE U+PHRhYmxlIHdpZHRoPScxMDAl WvDweNxcIN7mEk3pGKBrBQZa wStblYEkEgGlj4kdYYOuARftFQ 4agXzzZ0CokPF5TWBru2k9Mb95 U76oN4BfyTM+JSSkdGZ2hXA6 jN8aLkNtKmU5PQteF968HgFdcX UyFdjod7zhi8zfnDt5WeA0XKDu xjAeiGbtAZA5y9QsPl35D10j IHdpZHRoPSIxNSUiIHZhbGlnbj 1ghW5ePq7+YWUmhYJ3iSD2dO9p XrUsHmA7BHtcS350ZgErvXCe Ccvjl4vws6wlaBs4VoCrSRBgop CbeJdrCNY2k2XgMt62O7CzqHqp o0LwDzl2ij23bTFoc7L8oCX3 E6NiFLCzdudjjNQaqIxbBH3vRK KzusjtZXTrlP5tJXXvG1a6EdDr EjX6KYpfF9PrunM6EOYdeUAh QNhgJYN4W43zx9V1UEHmRGYyKV O3aYS5tJ8pfCqryfvkvPSimLvn ogQkjSquWRfoRHtuV793KTEt yHwxLRUmzQ7qYZHmwQPnpKnnYW 5yTVLrhdayJr0ZVL5WTTwGJEew X0lXWbgITzXLFH15GR90fCXd t9K0rRF3A6OqINOnuvzehtqbdU C1UJEjALOpaO92yPAfYKntSg6t x1I9v099JCBtYYFlyE56Ek6k sWwoAKBgoJNRrA8zuehkd6xrhv rhJiSwEKTnLMb6PDg5AYQiwAod DlXdOKX6QxS1POA9uVOxpK9h mDuyvspsdB3hYda+MDIvMjYvMT b1WkhehAV+NWHrQXO1iBqvVFqm XSAalL9qIEWcI6j8SrKkFkT3 OQqcD7FgZQLtswzgDy73dM7sEc HkPkG0VNmzE4RdodM1TINvtYPy BElgJAQ4O67my6I6PXIeSJGe TXY9wFI2jZ1qvSabbihoqPAoxQ bwfuEpmKjoYEweWVbnM607HMBm vKohGdS4MSzzEESnQK92JT89 hEUkm1X2cUB7R2YtWCAvokvszi phcWU0XAWkFQKheE79lRWrOGnb Bu4xw4Y8f595JWUePQDtlJ88 Pv4cqOusBMQpmTPEdI7tmbukg0 zkkqbsWuVaZXDeKYa8ITc1UYBy qZilKxCtUIX6UfO4GOX3fCHv xT3yhRlkjmdyeE8aTsm+TWFsZT wvdGQ+AHToGQG7hSnwODqzKRWj xB3kSLCnR9a9PtUbKdB2IBff A1VhIZGsoidwLb96rB6iTsEaAe Z3RNlvJ5HrtnT6AJQujJBoMShk PCD9H07us9Q3SEQyVCBnQQN2 sFM0sN6lgBfypidsaFGxqNubwt GydQxsFXshEMunW890XQMxnEyp IsJsmY9zFMBgPQfthEByrTxe dGQ+TR01xk91G3NwScoqXua2SN AgLYX1fOK8gY7cIQKgIXftd0E1 jEJ0T7PqroFfez2tt9xzKSVi NIkdC38daHPii4L8KWRdmHN3NQ QrsHusDkGjoJ05Dhd+PGNvbGdy p3HaHfzov5vns1mkvHd5LyXo XIXhtvCkxMybTRZ4x4XxRm02J0 9sIHdpZHRoPSIzMCUiIHZhbGln ar4cyD5oFk7+LOZkpOT3iOP8 vM3mJjIfIjI1DKzuI738AaCllV KsEqmcp3fwe8gqmUt7EpFcROQa mmRhbTrnYUP5y9OzQy51R8Hq eLjho2TeLty2ll35eNNlg0Y6dH K2N6VuEPIkxinddPLtpGuhXL1d MGDhtdqfWTLmtA2zIKAaK9m7 LwYhEvF2UNkuG4YagqL7BOBroX AmGYPzxLKLyN5vmmoox9adxqkb InCvAMSrYWj6SAe0JPRvcLfn NiExZIN9AaY2OBB2aJJbbP6ewQ gxqrypcO4gEml+ZSf7n0femQBd LI7txSS3HU74EB10uKCib1M6 xGO1C0RiNWChabztkfalwGR6AV CvOMWgqC29Sm9yiUpjIm1kNJFo IQH2JHVywMJyB1YlrR7fAfJo HCFnCPDmL6ZxdAIfVMukT392YE irBzZ5CTDlexUoE9GrEUMncNub VlX8w8C0Vl0NPD73RD84ZF48 mSZpd1J5gZL2E0IhBXDuvudwmb qssOO8ORRjWPDvaR21Zx7upQng Cm3mDOHuFKX8MZPmeRXbO2To kC3hMxJtOPOhWXMeO7CcaUXmWU diU475UWmhVyF5ZFFykrJjQ9Yv MMLmeDhyZaM7y7S1Oi1XIz00 SY58DU17rKZkr6H6cNL2U8HlGO IsuqunguouzDE9IQGcQRXqlU62 Bm1zoIapFc9oCKCkPAT9KAKs bDOnG9GvlM2gPaZsQBCmPWJsV5 CowJPxMEtwU995GAkfNkC4AIYy icQwW6ReRIEchPecNqP3j2M9 Rl9GJZibgsz7W7EyEnvjdYG+PC 35VZAeSN40pPKnfDWbh9qsmMz6 VhMoLZJlGAB1tCeqNLlef2Cd ZXIt (more content not included)... Normal [facility] Consent for Treatmenton 05-11 Consent for Treatment [id number]#1.00CD:127 Normal [facility] Consultation Noteon 05-28-19 23 Consultation Note Patient: UJAN SIMON Age: 66 years Sex: Male : [...] were documented. Morphine- No reactions were documented. Meeker- No reactions were documented. Wheat- No reactions were documented., Allergies (4) Active Reaction Barley None Documented morphine None Documented Meeker None Documented Wheat None Documented Current medications: [...] All Problems Celiac disease / SNOMED CT 8744996316 / Confirmed Cancer / SNOMED CT 929093161 / Confirmed T cell lymphoma-3 years ago Snoring / SNOMED CT 861230662 / Confirmed Acid reflux / SNOMED CT 188132153 / Confirmed Anemia / SNOMED CT 832258884 / Confirmed Rheumatoid arthritis / SNOMED CT 370302886 / Confirmed Osteoarthritis / SNOMED CT 1283901881 / Confirmed Lymphoma / SNOMED CT 713234870 / Confirmed Lumbar post-laminectomy syndrome / SNOMED CT 437360575 / Confirmed 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 Neurologic: Alert, Oriented. Psychiatric: Cooperative, Appropriate mood & affect. Results Review Cervical MRI scan. [facility]. On a CD for review. C4-5 moderate [...] they help hi (more content not included)... [facility] Comment on above: Result Comment: Elec tronically Signed By: Elenita Lazar PA-C\.br\Date and Time Signed: 05/28/22 10:40 EST\.br\Electronically Co-Signed By: Kilo BARAJAS, Mark Khoury\.br\Date and Time Co-Signed: 06/03/22 11:15 EST Legal Correspondence Officeo n 05-28-2022 Legal Correspondence Office [id number]#1.00CD:127 [facility] Office/Clinic Note-Physician on 05-28-2022 Office/Clinic Note-Physician [id number]#1.00CD:127 [facility] Patient Correspondenceon Patient Correspondence [id number]#1.00CD:127 [facility] Patient Correspondence [id number]#1.00CD:127 [facility] Patient Correspondence [id number]#1.00CD:127 [facility] Patient Correspondence [id number]#1.00CD:127 [facility] Patient History Officeon Patient History Office [id number]#1.00CD:127 [facility] Coding Summary.on 04-10-2022 Coding Summary. CD:[id number]:[id number] Gh0bWw +PGhlYWQ+FX8BXGNmN64swGLyd N0HQ3wQHN4LHLUSYIYLCX6BJJ5 aaEF9LMsvK2ZoepYp JlhshVUzNR38ZLi6BDS6iWmvEE dxtH9aiILyU2g7XuZmWC79kW85 ZGuwPDJoKjW2QmKhmmpbmMKk G4rxLaHufPLgLsa+PHRhYmxlIH dlCVBhMGxlJSGhObJrsYyxBN1r Me4eMYElZIUjdNjftEOiNeSq y3cqKNReYUhnZX9tiMjjZ7SzaX T7WGNte4v9Ec00xPO+PHRkIHN0 nAdrMWjxs616TpEab5lnVQZ0 lMBvTSdmNKL1O04sc0T1AXEgDS EfICF2dBG3bU2vbMitjbffW7Cb bTBtRoI2UGA3sQMgvJ0srNpu mksanZ9mYem+F00QKA7IUEURUV 1VUsc4K5XqSzamyDW+AI43PXTa GY10jBPpoBQax1awvQk7QdGu FOHbYWK9bNvsTCsuj1IsGBWpD9 0vkJPyc1X1EFJscKgcaGUzCwZs jJC7nK8mWFvqrqjjn9xrzlkf Hvakq1wbzq83jF92D34fHGiqOL KiYRW8ANIaSPXmkWmkgt0daN6t Ii8+QRkwi7crz9qrhXm9PcWn PKUefpBgnGgnUMU4h9MwNh84T1 GjlTbbv5TeZmb4af60gSTqk8F8 dJD9DCuxWSCdsO4fZDdkHfP5 AAOnRsPkwL42uKBnHLhhDk6biN dkhAlqCH7gEFKaalbbCKDmgY8j CTEnnXAtkAtfEH3iDPWdxhmj f202QqQrJZH4XMBpuFYaQ3FtlH 6eFpJuFJEuTHZyR0UyjVYbWBhx N322RDrvUlN8TWTsagUfR1Zi ZYXaaHlqFfK9e1Q7Xx4Xi5Csth tsYKX3MSdrCNFmWxNeGnEtGsY7 J1LtDga2QXApoPwpVY7lF1Zv ZUSsfcicdyzixOQ1DPOhWFKejU 75lBHzNSyjQw5aa4X1b778RIWo PQXnxJ47Zv7nkXnzPRVbpVOB rK4mkviwm9ywswuuVwVbGZHnKK y4PTq0TULwzTksAzBqUED2ViO4 XMR5hBBeaV7thJdyofyxhQ6w Oyc+P27gnH7cUZQ4FNC8rxnaPW ZfpkEuXA99NM44D9UvQhxeoTFt bGU+XHLoicCxwVzdCM8nMdOh l3tbe4WaSLxyW3OrKNIjXVevWr d6JIWwOZU2rAR0tZ8bGBRmCCbe k7B1vRE9E8BekcVlsw7wh6tt LBNjOCynX29rwILes5R2IXTutJ Y0VSYbbWioBxUgyP08Bnv+PGNv kWdqn2FbCuqzf3dgt8hyvUz6 UaDyGLSwlbMizUjaBZL8f2KkQz 29H76vVOktLBGkAPMlEHXlDZIf wOdwde7hhV9oPa9+PGNvbCB3 yVY7dB3nGUBxOvK7ITtbK296Tu SdoXHyBxvpn1opn3iluTm8DrAv HKJaykKgwJdqFVX9p7BeGr23 X13aYXxtKFTsOADlLTMwOQKifE pkoe9niH2lNu2+XX3qq1evee95 yE42kRE+AXCnEPF3zMuxORug CIQpgR1aWMuaCgG4JRRcQvOjoF 65aFLlOPcoWd3hqKivgQhtWQ0k VYQescwif914IhJyp7yfPASy yMCqNAneSTK6W03xz2O2BCZpBY RnEJV3bZF1dR7nvIzcyozblLOf vVegegOxjHpiRRuzHZusC517 IHRvcDsnPlBhdGllbnQgTmFtZT i0E5JtRtg0CONdyKwcXC6pjDPn CCrfIt3siOyuuOquFL3nHHJq nholn914PzHpk5rzXUZjfRYxWS qpRCF7V71ld5G5EHZoRCHuZVX5 tCR4xS3vqDualoddxBDboAyy qzFdaNceYNytJKvqL105BABnnS rcTqUsheOvNGPabAH9KY31YB64 cAOdw1N2iDZ8W7JpGIGfkubu herzyLW7TLFbGLQfsS66Jk6hyV hbWh0cWIBzBNQ4GQYdcAIxW1Vy gS5pWbLkSCMnFQSfX7IbdNUj DIlsW770UMbtSxE3LZRvlbIlS8 RqFFCigHpsXyA5h5Z1Zr2CZ1M8 MY57WX36bLHxp9G8vKT7Z5Qv QHOfkomfnevxuZN7IMXrPJIogW 27Hv5utBkzQf3bMOWyTHD1VJGe mUKxX9YwcX8wNaVzSJAuPXIp F1BciLAbNJryT318IYwnDfP5EE RvouMcF0PlZFTviPwpHmE6z7J6 Um6YUTp9AD09MV95pMEzo6A2 pIE0A7KnWALzlixbrqmdwIA8KR EdGXUewY59Sv7rkXynIr5hJEGl NPY1XGHjgYJkD3RkyO5cPrRv XTZrEVZkE9OamDPzYNaaL731WF imFsZ8KEYdatYtG0TiDIXcnBpc DfY1n8I3Zl9CBDSuRH69DKZ7 qJC7KR78TX10L7FfRirlbFHitL U+PHRhYmxlIHdpZHRoPScxMDAl JtSwqIqqKN8sIv6aSRDzTHUh iHxytETlAfOev3jvJAWuZWvgJU 6paLefD6LqzXD1UDHyk8j2Gk70 J72zI4MkiXG+GLKumBX2bIA8 wK7gSgZvNoH0CDqwU241QdZptU VwXztlg1bbz8lhnTj0IpO2GXYa igPmwWfoFIG9x7FqAo47N49z IHdpZHRoPSIxNSUiIHZhbGlnbj 0fnB2yDc4+OAUqqUQ3fOX8sC0o DgNbVqS7CKpoO121UuPkuKEe Dczxt6ktw6eddKh6NuLrAWFfmf PbjWwpALB6p5DcUf28Z2VaqDpo v2VnIfa5sd26iIXiz7H5vGG2 J1FaDJXladqbhIYweUwqWM7eVP NwhzzkRCOqbJ5cZCUzF1z2SfLn YaZ9WTofN2KvvlF3TGFecEWz APwlIZI1G58ir8J4VRHcYXHpZX O9vXT9iP7seRsuhqbxqSMseZaf juUvoMufRLotDRekZ202ISSz zAskFLXvtG5jRCIveNEstEibOZ 6gXAKmkovzUe6EWD4RRJuNGRgb L4cYJeoUKiBSBK90PL69gXVr t3H7iLO1D0TlNMQrgsgcjqkamJ W3BCVzBQQcsT66wQSdJAjtJb0b n9B0x625PDMgQSSpiU73Lp0l zZmxZDCjkVDVfG5ujqefs8fwik xqOuReZLDxFVp6ZVi9CHGtbMsd CbZhUOV2GxG0PAS4uPSfiP9c hMybaexlmN6bKtk+MDIvMjYvMT c2GnzfhKC+ZIGaVCW0cIolXQrh JTThwH1oFRPzL0x6CkFfFhK7 BUzrQ2OmQVLmqdhlJc79nW2wQr CqLiS8QTxrO1EdclF3SVEtwVMc UQtdVIF9B61mz9M3URHsHBZb QZR8fLK5zF2idZwtqyzydXYkfQ bgqjVipChpMJobGPurM038USKg eXlpSbN8NMpqWZRnSG97OE37 yWQvn7S4iDF1E4YdODRmuxxpal jouHT7RKHkHPLpxR52xGFqQKqh Nn9tm9B4b566UULjCNPjgY34 Bo3xkJoqDCIiaCYMvL5eajrcr5 setzpiChLzFUVxAJe0RHy3NEGm aRfeXhCrRGL9YjU0RNB6eVKw gI3wbJvztcjbmX8dMpq+TWFsZT wvdGQ+XMNxAWA2wNdkGXexFDXs yP4nZUWwW8j1HpTeVkO9PGwt W4DjREVitukuJa66wG4xLqCzKn Q1KAhqO9WgzsB0MZLovFXdVSct ZZW6U64tk0L7GEWzHITpBNV1 gVM3mE4gtZfgxuiazKQhcPczeb XdhXzgOPjhZJqhR555JWHlkCgv HoUpuT4dUMMnRShgoGRkpQxj dGQ+DS30fs58G0AtXulxBbn6GG TnBQS9gLM7dN5hXWHaMTbqt3D1 kRR1J4HgjeKkcd9cr0hsZCRr NGctG96slPUsj5D3NUBahBW7PX MlgChrQvGspK47Kdf+PGNvbGdy w5WaLjddp8rvc5anaMy4XwUh GJJdpeJnkWblEIW8w9QoAz07K4 9sIHdpZHRoPSIzMCUiIHZhbGln ku3ukA2jCl6+WUWudSZ2eXQ1 iL2tEdWiDxW9GLqwO657OsGidM HoNfrkk5stn5qkgUc0QpWfIXAa erDmaTzbJHN9n6FvKu55L9Iw dLskp0YbLht2rc38zSHiz1B5xU G8H9NiAUGcvrirtCUtoFaePQ6c FZLcvarjTCAprE1tISXpT8z3 UqBtDqB4CYzuY0EdpqJ1HKXztX RuSPBgfSFSnK6nlabld6xfldas KbYeGYRpKHf3OFn8ILNvkJlo AjWjZYP2YqG6TFU1tELypG5tzI xvbdagsA6yVic+NXt5b2ejdIKn EK7jiSF5DG39MS48rOWvc2W3 zYJ4M6QxMXNkjdjpocjqkVG9HY YpIQZkmP45Fw5rdRbvSe7kGEQn SJA1WBBlqOQbX5JztC8zWcQd MXWuITRfU8IgjLLlAHkpP521MQ seVkV8QQOfvtOgC7QrDELbfFsh LdB7m8B4Js8RXU47FK36IU95 eRFtc1B6gNZ0R1LjARQyhtqefc ggzFN7SAPcSPAqgV47Io5gzZdk Vn7mJWKjBQW7CHVofYLvR6Yr zZ8bAeNhLLBxSAVuH9ZewSYrGL qnL120PKtvQpS0OTJrtxOoN7Jl NTLijYctDxT8m4R7Ee7VOh10 NO28QB38lUFjd6C8nNM0C4OgPO MexuoaloqxdKE8LKGcEUXteL10 Vx9fwWypMu4wMTKqUPB6KHMk sIFmA6WogK1vVzCtQKXwSEPeZ6 ObsMKbSVepH742NSnvIlU4TAGo crDnH6TjMDRukCreRdX0i8C5 Py3PUPaicej2Q3EsCzorgPJ+PC 49JGExRS24rYSkbVEwk9ipiCr2 SaRkRUIxZAX8pBtbWHblp3Dl ZXIt (more content not included)... [facility] Consent for Procedure/Surger yon 04-08-2022 Consent for Procedure/Surgery [id number]#1.00CD:127 [facility] Consent for Treatmenton 03-12 Consent for Treatment [id number]#1.00CD:127 [facility] Discharge Instructionson Discharge Instructions [id number]#1.00CD:127 [facility] IntraOperative Documentson 06-08-2021 IntraOperative Documents [id number]#1.00CD:127 [facility] Main OR Intraoperative Recor don 04-08-2022 Main OR Intraoperative Record IntraOp Document Type FTPM Summary Primary Physician: Mark Boateng MD Finalized Date/Time: 04/08/22 10:05:39 Pt. Name: ALFREDJUAN/Sex: 1955 Male Med Rec #: [id number] Physician: Mark Boateng MD Financial #: [id number] Pt. Type: P Room/Bed: / Admit/Disch: 04/08/22 [...] Performed Surgeon - Primary Scrub - Primary Laboratory Secretary - Primary Time In 04/08/22 09:56:00 04/08/22 09:56:00 04/08/22 09:56:00 Time Out 04/08/22 10:04:00 04/08/22 10:04:00 04/08/22 10:04:00 Procedure CERVICAL EPIDURAL CERVICAL EPIDURAL CERVICAL EPIDURAL STEROID INJECTION(.) STEROID INJECTION(.) STEROID INJECTION(.) Comments Last Modified By: Samantha Hsu RN 04/08/22 Samantha Hsu RN 04/08/22 Samantha Hsu RN 04/08/22 10:05:27 10:05:27 10:05:27 Entry 4 Case Attendee Vita Valle Role Performed Contact Lens Technician Time In 04/08/22 09:56:00 Time Out 04/08/22 [...] Myers Given Ezra MARION, Kilo Tran MD, Joshua D, Ott, Amy Time Out Complete 04/08/22 09:58:00 Outcomes [...] C7-T1 MOLLY Primary Procedure Yes Primary Surgeon Mark Boateng MD Start 04/08/22 09:59:00 Stop 04/08/22 10:03:00 Anesthesia [...] and tissue Entry 1 Skin Integrity Intact, [place], Warm, and Skin Abnormality No Dry Outcomes [...] symptoms of (more content not included)... Normal [facility] Main OR Preoperative Recordo n 04-08-2022 Main OR Preoperative Record Holding Area Document Type FT Summary Primary Physician: Mark Boateng MD Finalized Date/Time: 04/08/22 09:40:11 Pt. Name: ALFREDJUAN D.O.B./Sex: 1955 Male Med Rec #: [id number] Physician: Mark Boateng MD Financial #: [id number] Pt. Type: P Room/Bed: / Admit/Disch: 04/08/22 [...] By: Cora Ascencio RN 04/08/22 09:40 Normal [facility] Operative Reporton 2 Operative Report Patient: [...] 103 mmHg SpO2 99 % . Normal [facility] Comment on above: Result Comment: Elec tronically Signed By: Kilo BARAJAS, Mark Khoury\.br\Date and Time Signed: 04/08/22 10:04 EST COVID-19 Detected/Not Detect edOrdered By: Koki Basilio on 03-18-2022 SARS-CoV-2 (COVID-19) RNA MARGARET+non-probe Ql (Nph) Detected Not Detecte [facility] Comment on above: This is a duplicate RP2.1 COVID (PCR) result to be used for statistical tracking purpose only. No Panel InformationOrdered By: Koki Basilio on 03-18-2022 Respiratory Panel (PCR) F [facility] Patient Correspondenceon Patient Correspondence [id number]#1.00CD:127 [facility] Insurance Correspondence Off icezeina 03-11-2022 Insurance Correspondence Office [id number]#1.00CD:127 [facility] Coding Summary.on 03-10-2022 Coding Summary. CD:[id number]:[id number] Gh0bWw +PGhlYWQ+IV9WMACrL93uvDGky L2NZ8iABF1PRRTWCRXAWJ0UAA2 jeWC3IZmxS8VqrgQb QimrhEDxZG57GNw5LWV3sIwaSF tsmP8knERtV1y8PvCrZL41xT06 WXybPYUdDaO1TpGridktoOZi H1enYoPgeRCsVfz+PHRhYmxlIH deRXLwYRiiDBTwEmVyfTljPO8j Gj1rBKEmWOUflFidnBFlFvAr s0vuZFIfSHgmMR5sdGtkI3DmsT T4NGOfx6s1Gg73iLA+PHRkIHN0 pRrvXAnib561KpZxz3saNLX9 fYFnGBhyRQC6V29fj8K3PYHbFC QuNVN1dCU5nE1zlWhjerrkF9Uy dEYuZaP3CMW2lJBjyF7kdOye szucvS4rKaq+B32TSE2BRSENST 5BXxt1E2TmBwmxnHJ+YS56ODRp SZ51oLKmuEDio8cnrDu9WhGn QDOeTYC2uJlmAAwqc2RtJAMrV1 2nfXGiy6B2RWVwqDamzAZnEpCe xSS8iT2zDTslriuwl9vodhyt Puloy5mxgn57zI03D10oJEbtEL RgFDD9DMTnBZEoxEfnqp1csW6w Ii8+TRktf3csn5bjzFk6ElCf MNJpzpAheZssJFE6b5SoYx96T8 ZafFmwv6SyHvu7qp48eLYao4G1 wPY8WCdmSJCmeV7uMHcnBeU3 FOJmOlEqbA81aONeWRtrFw7hlW yicNoxZV0sCHRipwbnVPDadL6y BWDkgCReeEvwML7jHVHpqdqa m370YrIxGDN6CMLcvUVpI9EpvR 4wQoZwRLDkQSDkP3ZmlYEvYUii O876LRegKtO4AQOvmdPsB8Ea GPElhAobIoW5t1W5Sx9Cl3Iihh gtGZJ4JNhmPXQnCgSmGaRlIlQ1 Q6WzQfk2KGKglLewFI9gI9Rs LBPcvdlkvzdssUV6SCJhSTTucZ 46fZPzAAraKk5pu7E1q431CVPl XZUlvN91Gx6ofHlaJUMjkVBG rI1qcmslg4krnowqBiJwQSSiAS l1SQu9IVChvOgkZnNfEGD0CvR9 KJH3kUGlxK4flOmkbvqyyT7p Oyc+Z45aaE4sQNG5DSE6tkmhTW RlcnOzZQ23FS61C3VsAsbciFAn bGU+ETOktsBfvXefJT7eFcDj z2bjh3EbNArdE5XdKSSiINtmFy i8FTTaGKE9pYW5pW9nUKEnAUep j6X0uSZ8I6FigcXftv4dw2xw LVTqQLsaN70nzFPdg1O0EMMfdO E7ZONmxWtmFoPbvS57Cfz+PGNv xZhjb0HfLteal0olz9ibnBd6 HbTfQXIproDfuNubXGH4u6HgCz 42U86dZZexRECnMJUgCFZrHHFy hPwcug7beW9vKv6+PGNvbCB3 jYQ0aK3gUHDgNdC8RAqjG889Ik NxsEFpThfpc8nwb3ehxQa2UnTu JEUprgEqqIxeYDP0d6QqVe57 O43xMPnnVQIwGAJnESHxJWFmpT clvs8miQ5bWn7+XQ6qr6dwyb12 eV24bIM+AOPvLSN8lTpbQBdc DUSyuN5cPArrAcV8QNPlOdBoxS 22dSNtODzoMb5ggWhmqXloIE0r ZORbhqkvr533ReEqd7qcUKZg yLWnHVqlFGW0Z26jo0C8HQDqVK LdIFW4iAR5xS4cbAiaxcosjDRd mZembrLdpMcgVImhFXinY316 IHRvcDsnPlBhdGllbnQgTmFtZT w6M9WrOpz4PMThyTdeXJ9qoODy TGllUj1lvJfhyVmhGK4bNPHt mdxof138GzZof2wtNYOqgDExWB neCEA1O43kw6Z5REWqLQAwALV9 gXT2nZ6wxHtkgkascKZeqXho cuDznMtkBOykFGmtI996WNOkxM bxWuSlfvTiSSXpoCE7GC03WF64 cKXic5U7sCK1C9MfFNBampcl kdegwHX8GQKzUEFkkT57Xi0ijK ywDb3nDOAoMXE5TXLbbPVeP0Dk eA5wNhKjKGVkNSFmG8DozLHp POzfY148XLqtBiI9FPCxlrXlU1 TxNZKvhFvyLoF3f7G0Br4EW2I4 VR70NW61xNAjv5Q7nXB6Y8Ox KUPcnzojevwnoCE8DQBoPCHkhG 02Pe6zsZgrTv7xHVVmXHA5OZHf eZFaI3LetY5nHfHbMTXpCEZp Q8LqjZCrYHbyT155KXjkVeV4QV DaikNnT2AsOQLkdDjaEuQ2l2B5 To8WMMh4RZ15QD66oNVsl8E6 nYU0K0DtTVEqxluzgwjryCT9BR TcZAAdyK73Fw3fsWcdMn2eCRAr HOO8AQUjuRPzH8FvxG0gLmTd RCCsHAOcA8PggDLqNBhxB217RV khGfJ4AASifiQwU6CzUIJpcYho XaV2h3C3Dm0TBSDyLC45XKS2 nGJ3RY69OU44T6CsJxwcuRXoeR U+PHRhYmxlIHdpZHRoPScxMDAl AuZjvNvcLU8jRk1zTKBsGKOp cSpvaQAxGdXwk8ilUFRmYLebXA 0kaBcvL5ZnsEW6CWKve6j8Iu60 T82aR0ImfOD+SBOkoBM3rTC9 lU8aXpEnJbL2LLzsP307SkHtfK EtXgyou0cis7uqkRb0IeM6MNIg klWvgJdqZFF5j1WeVa58N64e IHdpZHRoPSIxNSUiIHZhbGlnbj 5jsP4zUw9+EXGzcYW4wCO1lM1c HqAkGaY9PDwjG902QwCkfUVe Djziq6lci5fmpAo3QwUcXRDcpo KklMxmMNC3n6VrBn87M2ZrlZun x7PrTou0jh33kNDbx7W2dCQ4 Y3WpIAWxzpbnyVVunMkcQK9pPJ EnkbidHOUtdD1xGQCtY8b0YeRv PkH6GNszY3UprsL8WJFsbZFz HDvdYNF0L59sv8P1MSBbYGMpPX P0fWM0iI4vsNwknitkaFOefEyl yiVfkPjeGAvqHOxlV647QPFk pAhgGVQzcE8aJANazTKguVpzLQ 7uRKExnkfoHz3UZE2EVDrHAYgu Q0uYMyrTMxLIDR08UC51qYWn l9Q3lWR9D4IgHSPftoiuywdeiL R9WKYzUYSovN71gDPtJLdpWq1l p0I1o309KLUkNKAwsJ11Qn2c cUcuTULqzVBMiS1tnomkv2uljs msFkOwKDRkWOn6FQm1IPIofAle LwQfRNY4GaW7LII7mGPegP0z fJlpkpwygB4gVvl+MDIvMjYvMT n2JlkfgTR+WVLiQHJ8zGilTFzq CWMowS7aNAJkL6z3UjYcIiF0 NJqgV2NiQNAbjmstQw71aR4eNg HbUxT8IBikH5OjyyM6XACboMYb ANflRKT1O43qv1Y8KGQuNKQg SDN3jQF8wV7ujWqbaimfoCCcuI xorjIeqSiuCKvrVHimD455QDHv wZpjYlS4RZbdMQAjCP75OX03 dFGrn3X3vIL7F3MrSJUcfqymli ykqTO1FXUcZZAxzL53yOQaSWqm Rm4xf7P0c901CLAqXCFqjY31 Ny6sjMzpYHYysULJgJ6heocqe2 bbskcyHqLqVWWbDQy1IRr2FDVa dWxzZfOnBFE8QfZ9KTN4dUUa gU6mgApszhtiiB2jExk+TWFsZT wvdGQ+KPXdFMK7iJulAQofDDGx yH2rRDHtK4g6BtJeCqC6VOyq C0DfRXArhabfZp32wG5oEyIyKz O8HAmoB0SritV5LAKjqQHvRNje WED7P96ik5D1TJRlRIHqMZE1 qAV3tS1udBwwmqhszNSvjLaedl EsyMvtXNoaODpwX762AXYgbSfs SuHpeG1vIYXrIIlqqUNncZzq dGQ+VA15pj28D6SpSjqdIxl6GG KeGSQ6bLZ9aJ7vRRTxNZpul7X8 lEM7J6BcfmEcfs4ul1dnJFKk ZRtpG88tuXJtx2V8TLTopQI6PT NykHupQkYbyF74Uui+PGNvbGdy d2WyTujbd0vwt9qobOv9NrEa TQRvkvLmgKsdTZW9m3CkRx96T0 9sIHdpZHRoPSIzMCUiIHZhbGln vp7sqJ2wDr4+WLKhqPS5uYB8 eT1rBxPbWuO5VSqpH525FnYfvE QaEotwj9syf6imsBg1WnQdRDIv wzZtbHvnEMJ2e8YqWz52T4Ur mMrzh3JoZtw3mg89fKZsp7H6qV X6I4OuRKMjbypasTWlxKtsDE9g GMQoughcOAJfkJ6aZMQcE1c0 HtLyPyN9PVciK2FmfzK8PRCtlI JbAAPgfLOFnS4qstpyu7vdvvya OuKySAPgVRe4YFz3HLWheQdj SxDcBQS7QsO3EKE2qTRhvH2pbQ yweqoyuS7fAto+XBg7y2jezJFm WA8ibKF9CF34EP73rHOrt7S1 cPB3O3RyPRIzduycyfsswXZ5TA EuZKCqsO78Kd7nvTjfMv7sSYUf ITO7HNMefTNiR5ViaG8qSyTo OPLsQDZvA2ZkiNPiJHylN720TA poEuB9XZXrvwCyN2NnXWEhbZdu AlW8p1R0Ez8ERN46MN27IA93 cHUmv2Y9iHB1C6MtXPTymxqsnb ayhSQ2EAYzBLIjeC51Vy5mwNrl Yy5nRDOqEPM1MZKwlQLdD5Yx jR6bNbUbLXDeDKGdF3NfhHLfGL xkC546BMboGoE0LLOoprZrO6Px CTXryNvpRzR6y2K4Ar8SSn44 VX89RQ71aUXtb9A0gOU0K8NeLR NxjhondistyCK1NDZeELZwgB73 Yp3fcUxiSs5rCQRyILS9CBMb gPDfG2FteS6nTnRcLJLfKRRoF7 UyqXFgJKemH291CMbjHsH8CWOt vsNjV5QnRGTtjDznZxQ1p8Z8 Sh4YXNjpevd5V8BdWkqkrVX+PC 37NCTqHX46zEFzhBEjg1urcWh0 LyDiQKMfEZZ2nFryBTdvt4Lb ZXIt (more content not included)... Normal [facility] Consent for Treatmenton 02-09 Consent for Treatment [id number]#1.00CD:127 Normal [facility] Consultation Noteon 03-07-20 Consultation Note Patient: JUAN SIMON MRN: 17- Age: 66 years Sex: Male : 1955 [...] were documented. Morphine- No reactions were documented. Meeker- No reactions were documented. Wheat- No reactions were documented. Current medications: (Selected) Prescriptions Prescribed cyclobenzaprine 10 mg Tab: 10 mg = 1 tab(s), Oral, TID, PRN for spasm, X 90 day(s), # 270 tab(s), Refills(s) 0, Pharmacy: [id number], 162, cm, 02/17/22 13:37:00 EDT, Height/Length Dosing, 110, kg, 01/29/22 10:29:00 EDT, Weight Dosing front wheeled walker: front wheeled walker, See Instructions, 1 EA, 0, front wheeled walker to be used for stablility Length of need: 99, Supply gabapentin 300 mg Cap: 300 mg = 1 cap(s), Oral, QID, X 30 day(s), # 120 cap(s), Refills(s) 1, Pharmacy: [id number], 162, cm, 01/29/22 10:29:00 EDT, Height/Length Dosing, [...] All Problems Celiac disease / SNOMED CT 8763541596 / Confirmed Cancer / SNOMED CT 790649152 / Confirmed T cell lymphoma-3 years ago Snoring / SNOMED CT 422443473 / Confirmed Acid reflux / SNOMED CT 854902749 / Confirmed Anemia / SNOMED CT 961067900 / Confirmed Rheumatoid arthritis / SNOMED CT 512411884 / Confirmed Osteoarthritis / SNOMED CT 2591065531 / Confirmed Lymphoma / SNOMED CT 675772068 / Confirmed Lumbar post-laminectomy syndrome / SNOMED CT 075594719 / Confirmed 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 Results Review Cervical MRI scan. [facility]. On a CD for review. C4-5 moderate [...] hand tingling. We (more content not included)... [facility] Comment on above: Result Comment: Elec tronically Signed By: Elenita Lazar PA-C\.br\Date and Time Signed: 03/07/22 14:43 EDT\.br\Electronically Co-Signed By: Kilo BARAJAS, Mark Khoury\.br\Date and Time Co-Signed: 03/11/22 13:42 EDT Office/Clinic Note-Physician on 03-07-2022 Office/Clinic Note-Physician [id number]#1.00CD:127 [facility] Outside Records Officeon Outside Records Office [id number]#1.00CD:127 [facility] Radiology Outside Office Copy [id number]#1.00CD:127 Normal [facility] Patient Correspondenceon Patient Correspondence [id number]#1.00CD:127 [facility] Patient History Officeon Patient History Office [id number]#1.00CD:127 [facility] Radiology Outside Office 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 02-19-2022 Radiology Outside Office Copy [id number]#1.00CD:12 7 [facility] Coding Summary.on 02-18-2022 Coding Summary. CD:[id number]:[id number] Gh0bWw +PGhlYWQ+YV2UBPIhL14qnDUbc S3PU1pNAJ8BHEHNLJVWGV9EZA8 gmYS6LDqiI4CzihYz KzmcpWGyGT69TAk7HPU8cJslOM gyeA3yzSPoT1y9PsGfZU71sV84 SKonCQUoBgD6MyXaqmaflGYk O0mdOmZsrVYfPwt+PHRhYmxlIH anTOOgITpbYNDtYbVmcQrdEJ9g Ch6uELChJJIdyAljeUZjMaRp g2ycIEAnDBlpHN1xkMavY2UplH D4JIKxs3f0Ha04aGZ+PHRkIHN0 eSjmYIbbg635AeReh1ayMLU3 kQEpLScbGXA5O91zd7T2JUXhEF ChCDE0yBM1dE3leYgqnaklV9Kz bLQiUwY6SLX5oKZiuM5wcPub rklufS4eEwa+N24FLB5KUSZBJO 0VWro8B2XhXvbqrPW+WD79VGMf NJ14kIKmxDLfw0qeeHc7OqWi NJTxDIQ3eSyfREljz5PqQXZoD1 4laBXkx2D2CGDxzGevbGJwEnXn wNQ8cB4qDQnldtowx8rrbvxd Gbovo3ypci01jL92A99yEKirZJ WaTXF9OBFrQQCmwSodqy0ncO5u Ii8+KZoqv4nqy2pzyHy2FoRn KZZnscHbbDgqHBX9i5FpKw81S1 QviTzlm7JnKjz5ph99wVVoa9H2 tQJ3ZIlmPWByxH2dTGzgVdM1 ZIBcHaRusR78xPSoLWkrAv3pjG avnIynGP1aHSWqkrngQZByxS2f WMOobHCnuPqqJO9hETCzrazp a635KpDjJCS9JLDlsBDpV1IefC 3mOuIxHMYpIFEcO7NfeVLhUStk V125FNmhEqZ2YMOmzmCrL1Hp QSHjlTbuWeC2c5K3Wy8Yh2Dlxa csPKS4UGumSLMjFyTjNjAgIcN2 P5OjXuj1QFOeoTyfOC1rE4Rz ZHCgeuvycnkzcBF2WWJjYQGctS 61bIEaYRudXm8bu4B7m372TPLp TZLynL15Qp0elVbrRLOleEBB fC6rsuajd6nhllfsNwVbEDWcNX f1COq8CBOnoCsuQlQgBNF6VdB9 NPA3dRXpbE5eeOsukobxhN4h Oyc+Y93orI9uYQP2NEP7wawzAS XqwyGgZK31NX33B5TmTffnjFUg bGU+XAGzkbPqvNpbZB6hPwUx b7kqe8FqFZgpI0RuKXCdGIzvLg m5FNOkBMH2xAK7nV1cJDLyUEvq e6P8xCM9P6YkuxNuxc4bj9xy CHXySSexZ22psHNtq1P5HMLzaS B6QFJabBosLzHaoH00Oyd+PGNv qOebn8YuFjphu9fqw8xgjNc4 HbXaCROzewKciBjnZCD3q6PvUg 13L42bDFaeQESaBKSsAOXjPVMi vHnwzf9tfU3tFu8+PGNvbCB3 vOL9nD1sMQQrIjE0ARyxZ444Tp CvjOTyGhcbt9foy6ouzJq7LpTw PJSjpiPggRjuFQO5g5CkDy75 F55kKWklIPRaPBLrWWFiWDZgvT oihs1zvU8zVg1+PX5rh8akew69 iD91hQI+PPHeTRP7aUwfUYah WMQmeB1sKNcyMpW4YKQkHfVdiV 55nHNuVPtnRa3cnPkjtKhcZC0l LCErdgfpm664LqUms3mkHBNz bNNzQQaxGJE6X42fw5T4QABmYS TnLZE8hPH3pP9rzWwagmdndUJw vTozhiSmbFveIHceNJlxV075 IHRvcDsnPlBhdGllbnQgTmFtZT z6X5GcXqw8RBPugGdyTU4qlYLn IEhnGm4fcBnrgVxwJA8pOFKi fkzir289BzPdb9buHMHttXOlIL eeAIP2Z26ci6U0PJWcQPWzZTJ0 dZC9zF2bfCduazghrZDxfKkm mpSuwOciAVzdDIjaT178WLPmjG qhOdDnbaFcQCDduLJ4TV77JP72 nMZnl9Y6kLM8Z3BoPFEsgjtn mtwwmDS7ZCTxXXTmfY13Ct1ntZ qaAj7iEULgRMG8VOOsjBDbL2Ap uK2dUpTiNMVxACDvH7ImfANk UIzbY886BPoaEbN3COBmrvNhS1 BxVFRorWfzBhN8x9W2Ku2HP0I3 FG76FW44fLByj6R4lLU4U9Yw DUKosetzqwtlsGR9QPDqGZDagT 72Vr3saVepZf7xTMMjYEE7CQOa wREgM4NloL7sYyXhFPZnJHIc R6GeeAMrYCbkT380HDadGrI5AV AnouTvZ7EhTGRsxOlqGzW5y2T8 Bq3MAZe9PE13WB07mQKqj8J7 sSS7I2AsGRMbvgskpcsgdJB6SR OxUEWugA71Qa8rbAjnHl4uUOCc XGO5HEFfpBBzQ1YdhB0bLmRd JZTzEYUdH6SpbBWgARukW009IF qgYmW6JZFqmeBlH2LrKMRivEjs WjD1b6Y8Ew1HGWIuWR46BXJ1 nQG6WX64HC44Y5InIkjvlSMrdV U+PHRhYmxlIHdpZHRoPScxMDAl MuPhvHqtLP6hZi2fLQXiNDRu tLamoPRpKxVyh4nnOVLpOHkkQB 9xhRwyD3IyiPK5OFXnn5z8Zb28 V16tF9FzlLB+OBGurUB6pMX7 yV1zGpYvCjJ8UGkyT864PrOynT VdDuqmx6mdn2qxbEs8FpK1BIAe sxBskTvhRVJ5l6EfBp54X57m IHdpZHRoPSIxNSUiIHZhbGlnbj 8nuO2wVi7+BVJwmFY9qFN8sX9m LeTxDyL8PRebS047IgAqgMIq Lvjnw0kpj5acjKs0PjWlHGPmix IhnVleITW2r4RxEx94K5XtaXjy h9TuPrk8ej81eKHfn3H1jDZ9 I3KfTLIvnohwvNFbiXsmZQ3lCB NinjpcOFBnkU6mQMMmI5v5DdKb YsV9MXnyP5NjopV4FTDyhRPa LZhvYFY2L25xa5A3LCApZKLuSH Y9wQS5dE6gcCtdkmqihXMneDwn skMkuYgkVRqoBXnkX852AMEs gIplQHFsfR3sHWSttEUtkYrtFA 4aMNFfanxpYj7LCF0VOVkABTzt A3uHMdaBAyLPLI75YD02sIVu d1P8jPP5U9HtIREqviucxckrsR W5UHUmHUEmcB95tONdCOicVn3d m2Q9g251EACfOZWcuQ78Us5g pOqnOKUfmRXPxP8ympkgj4ryje puVmQwIRMiLBn7IUz5IOWuxJrz HiPrCNC1VpQ0GQS2lMYmpT7r aVdaunskdZ2uMye+MDIvMjYvMT x4ZsncdAY+UECwIZF2fRzbBLdf YDAbkT6bCWDmW2r0PrBuPnD1 JUcfW5LqAOTrstquZu99zR5cCe GjVoN9PNzmJ7XhkrI5LOGddBHk DMpgZZU4G37ca1E7SUIsBLEd OSQ0aTH8mP9fqGnngdpbbOEobX egekResJkgMLnsQNlqX119YIHc mQbyXxZ6RNpeGISwKN93TH06 tOZmu1B2vQQ7T0XxDRClwfgoum mhlWE1OXWbFTAgzG03bMLbTYwz Jj3ig9O0o915KEWsPBOpzT53 Br2qkVqnLVXatLNUlX5axkvvr2 otcdlbIqGaRANtDZy2BFn9EARw gQjcXgZpGMK5KsX5VME3kAXc lY0haAbveipflK7jXlm+TWFsZT wvdGQ+FGLaREI1sObbGCrgJSEg xQ7sFXItF3w2RnEbAxN4JNor Y6UqEVTvujouCu68kE4yFaFqNe E9EHwrL4QdmsT3OIBbwXGnLFjs DXZ7Y48nn5T6IYVhGUJuMCB6 pNP4kO8huXdhufbtlESprDzbsx WhuCspKSszUIlhL804YTWcpHhg KiVgdN6kKQKvKQsinGMdvYqo dGQ+DR47nh82P8BgAimwZgz8NV OaWXX4pKH8gM0kVPAjGZbcs8Y3 pVC1L7HliaYpbv1ww7wtQBWy RDhlW57dtYGex6H4IQUwjTQ7WL AcaToeMlVddK06Wjo+PGNvbGdy c1PvYsxvx1abc3ukkXu3YeFo DUVeixJzmSdoNZR8e3TaIr53D7 9sIHdpZHRoPSIzMCUiIHZhbGln gk5uoS4aMb4+ZYOwaYZ0tOZ1 tX9bFsEdOsL6YTaxT348ZlMqaR BvGdxmy3gex8gzoAt9OxZjDEPf jmPtvOigNIZ3k8ZyNx94U1Yo nAtge5LuNsf3hw23tDHuo8M6hN Y5I5RzMPCmxexnzHKaqSzjHA1a MYMlbryjMDYjyA3gZQOxS5m9 YaSoLiZ8PSefA0ZlbkV4ATDueX FzZZOtrFMTcC3aifwgn7hcjxql LpPwSXQkTGo4GTj4USImuUsn GfUgOOS8SqV4GSN8jNKaaP4hoN sxlttcvF7gQyr+MSg4t1tbcINs YT0gcLX4MD39RV36yTFck1H5 qBE5S9HxJCCpncktgbtsoLM1TP JfWMZwiW50Tc3mpQctZu1oNFQv FYQ2BFQklTOwV1OkqU9yDfHd DMBzMUUhJ6HpeLHoDJejT215YH epYsX0NBSxzbYwT4LmCJQwrSal LdN2f9Y7Fu1DBC49ZZ99UO72 gIZxk0K1bVN6F9JqIYXlikbsvs xozQZ2EYLdUJXoeZ85Ui9jvNlg Xf5fYDDgSBL7AUBhcWTrU8Yw kR7jZtKfRSGoCJZuC4XyzXFhRN ijC359EXpvNcC6BBXcwfJaF5Pq NAIrnNvkKpD4k3Y8Ml5DMr96 ZD28FY56xNAva5Q3lYY6I6KtNE HovsxyqdsdcKK3XVHxRQLksT88 Yp2fuBkpCx8vWMGiYIS8TKDt lJHcR0KrpW4mChMmDIPqFFDdS4 HsnAMmJXboA138NFdzPzE5KIDl ynLmV8XnNOGtiZsvQgK2g9D9 Tg5ACWezeug4Z4WoMakakQI+PC 85GNIgVQ32xBYztUQxq5qklHw3 HmUsHLZjELI6oExuWAlef6Yx ZXIt (more content not included)... Normal [facility] Consent for Procedure/Surger yon 02-17-2022 Consent for Procedure/Surgery [id number]#1.00CD:127 [facility] Consent for Treatmenton 02-08 Consent for Treatment [id number]#1.00CD:127 [facility] Discharge Instructionson Discharge Instructions [id number]#1.00CD:127 [facility] IntraOperative Documentson IntraOperative Documents [id number]#1.00CD:127 [facility] Main OR Intraoperative Recor don 02-17-2022 Main OR Intraoperative Record IntraOp Document Type FTPM Summary Primary Physician: Mark Boateng MD Finalized Date/Time: 02/17/22 14:47:04 Pt. Name: ALFREDJUANO.B./Sex: 1955 Male Med Rec #: [id number] Physician: Mark Boateng MD Financial #: [id number] Pt. Type: P Room/Bed: / Admit/Disch: 02/17/22 13:11:22 - Institution: Case Times FTPM Entry 1 Patient Times In Room 02/17/22 14:39:00 Out Room 02/17/22 14:46:00 Procedure Times Start 02/17/22 14:42:00 Stop 02/17/22 14:45:00 Anesthesia Times Last Modified By: Samantha Hsu RN 02/17/22 14:46:53 Case Attendance FTPM Entry 1 Entry 2 Entry 3 Case Attendee Mark Boateng MD, RN, Samantha Mueller RN, Melida Abebe Role Performed Surgeon - Primary Laboratory Secretary - Primary TEXTILE TECHNICAL OFFICER Time In 02/17/22 14:39:00 02/17/22 14:39:00 02/17/22 14:39:00 Time Out 02/17/22 14:46:00 02/17/22 14:46:00 02/17/22 14:46:00 Procedure CAUDAL EPIDURAL STEROID CAUDAL EPIDURAL STEROID CAUDAL EPIDURAL STEROID INJECTION(.) INJECTION(.) INJECTION(.) Comments Last Modified By: Aracelis MARION, Samantha 02/17/22 Aracelis RN, Samantha 02/17/22 Aracelis RN, Samantha 02/17/22 14:46:54 14:46:54 14:46:54 Entry 4 Entry 5 Entry 6 Case Attendee Praful MARION, Valeria Valle, Vita Mueller RN, Melida Abebe Role Performed Scrub - Relief Contact Lens Technician Scrub - Primary Time In 02/17/22 14:39:00 02/17/22 14:39:00 02/17/22 14:39:00 Time Out 02/17/22 14:46:00 02/17/22 14:46:00 02/17/22 14:46:00 Procedure CAUDAL EPIDURAL STEROID CAUDAL EPIDURAL STEROID CAUDAL EPIDURAL STEROID INJECTION(.) INJECTION(.) INJECTION(.) Comments Last Modified By: Aracelis MARION, Samantha 02/17/22 Aracelis MARION, Samantha 02/17/22 Aracelis MARION, Samantha 02/17/22 14:46:54 14:46:54 14:46:54 Entry 7 Entry 8 Case Attendee Praful MARION, Vita Carpio Role Performed Scrub - Relief Contact Lens Technician Time In 02/17/22 14:39:00 02/17/22 14:39:00 Time Out 02/17/22 14:46:00 02/17/22 14:46:00 Procedure CAUDAL EPIDURAL STEROID CAUDAL EPIDURAL STEROID INJECTION(.) INJECTION(.) Comments Last Modified By: Aracelis MARION, Samantha 02/17/22 Aracelis MARION, Samantha 02/17/22 14:46:54 14:46:54 Perioperative Protocols FTPM Pre-Care [...] Time Out Samantha Hsu RN, Goldner Given Ezra BARAJAS, Ervin Heard RNMelida Myers RN, Leonard Tran Amy, Myers RN, Leonard Tran Amy Time Out Complete 02/17/22 [...] and tissue Entry 1 Skin Integrity Intact, [place], Warm, and Skin Abnormality No Dry Outcomes Met? Yes Last Modified By: Samantha Hsu RN 02/17/22 13:42:35 Post-Care Text: The patient is free from signs and symptoms of injury caused by extraneous objects Patient Positioning FTPM Pre-Care Text: Identifies physical alterations that re (more content not included)... Normal [facility] Main OR Preoperative Recordo n 02-17-2022 Main OR Preoperative Record Holding Area Document Type FTPM Summary Primary Physician: Mark Boateng MD Finalized Date/Time: 02/17/22 13:37:27 Pt. Name: JUAN SIMON /Sex: 1955 Male Med Rec #: [id number] Physician: Mark Boateng MD Financial #: [id number] Pt. Type: P Room/Bed: / Admit/Disch: 02/17/22 [...] 13:37 Cora Ascencio RN 02/17/22 13:37 Normal [facility] Operative Reporton 2 Operative Report Patient: [...] 102 mmHg SpO2 95 % . Normal [facility] Comment on above: Result Comment: Elec tronically Signed By: Mark Boateng MD\.br\Date and Time Signed: 02/17/22 14:46 EDT Coding Summary.on 02-06-2022 Coding Summary. [id number] Gh0bWw +PGhlYWQ+ZH0NCXGvV15eyAYfa L8GU0uHGE7ZXDKTVEHHZH6RIG7 awIS6CYpgX5VljhXs HuxzgBJaKS82RYj3KZQ6uInpLO qhrE9dhODtD5j9QuLzXH33uJ53 TApiNFOfEyF7JaYizafhzMXp S3ytCrYhjXAeFsn+PHRhYmxlIH quNYEyOYaeHJZxMuGulMubED1n Mx2cDHKlVSOzlBplvYGqKxJu d6dpMMPpMIkvFF4zbGbzF9IamG G1OJRjn5x8Um86hYJ+PHRkIHN0 gNwbOLtqe553YiTzs9fvRHD2 gSSlPSobUVQ1N53yl8U0HDHvQY WfTFL3yBJ0kD4rnFrjzzxvC1Bj dVSdQbZ8PIH1hLYltB1xkKdy oeuzqD6yZgh+Y61BXP9AJQZTHX 4USxe3B3YeUpnhkYF+MU40SOTt OU52lFMevQEbm1txaAk7RoQe IPDtTDT5iBveYTgwq9WdTSLhH1 1iqKZja9G2JIMomFmtnBLhKrNx tRO5lO9mCTdxqlvot9gvonva Rillr1imev14nD27T20rESzrFN NrUIN0HPFwLZPobGiykz4ziJ5i Ii8+DDlap7hao8lixOu0WdGl NQEvrkTxzDehXFJ3u4SwSi40M0 GclWrnv0TlSza7tp44oAEtr0P1 rIP0PQtuMYTgaT6yXXliCzL2 BTPqExSdbJ47xZCdZUpkNp1rwV vkjNkjCI6lRAGxxqquPLLkgX9v FSXxqMJucIggUT4fHTAgqste t598XjSeZAG2OHAwtLLvL8DajW 0wSqOvZFWlMHXbM2AskHThPBuh M828SKbuHeM6YKJmvkUdB9Re MFQcrSezCyF3g5B8Ni5Gk1Klhw tfKLH0VAxsSZX4TeA7DaKvIoH1 S3CyWis4DOZhgUonFE9vD2Jr VJJnnbobufrnpFE4NOKyJFYzqL 30tIXtDHeiBa5ba2X9t473TJKe ZBRtoZ85Du3dqUdzZCExsROL eD5rzeert2tngxlnXzTmIOSbHS b0FSu4NWNszYtoDwDqBDP9KiN3 QDF2fJVfpC0iyCpguexuhQ3p Oyc+P58bzL3vPJD4RDJ9wzopHF RpzeWsBG98PH88R7NpPefzpHXm bGU+CDUutkSzvBhsJO0xKnKe u5fej4MtTXqkL0BhSNJbCKisZg g9CEFtGGY5pAP7hC3hVAZyZPzz n1U5mEL0Q9GtofVdju4ao0ph DCFtUNzkU04hvUPob0G9ZXRriF F1JLMhkMmaYlEkzS42Vxu+PGNv gXere9GeMaega9exh4dxqIu3 JuCvVNPxdhLnaXvbKCX5j7XtZu 71B84kHPxfKACvMOJyGLYpLQVp bTxyec5xoP1uXx7+PGNvbCB3 yFW6dS2eXEDiLoD8JByhK377Ty JmqGTjBccqt2vld3kfnKk6DnGu MHKdfgEtuButHKM1u2KzYy47 X99jUNekWXYwHPKiLUVsBGXxmU cmpn6qcX4oOy5+US4zt4mrhe18 rH84yHQ+UQNaJLE2sCjmCRzi RBOdtX2nDDrvJrC6VYQjAjCwcO 38vGIsLNmwHx6orDlglGkmHF3j KYWcedylw106RxJdu5ceHFEj rMKiQXcbIIX4K74yr6O6UHLrWF KxZES5oMG1mL9hfBdqmzkvuRXo mWaymiSahQejFUunECfkM290 IHRvcDsnPlBhdGllbnQgTmFtZT k2X1KlHtt3AZDcqUxdIS9aoDBp KTlnSt0zwCivuXjtZB7eEVWw ghpra813NqTut7dnZKYjdWOlUJ xbAZO4F40jx5K2LNNqRTZfKEK1 wNO4gS9zhWzfcsqkdXEqtZdl eiNkoTwfLGjzZEarA608KNNzxT luIfZgdaNaOTWsfIZ3XL08MV76 pSZjg9X8iLH8B6UwJIIccqfe nskhdBW4NDCaKPLguQ85Og7miK ylIx0bTCYhRPR0ZKJjeIRaY2Xn rC4gPmXhQFFoPWDtI7FobTMg RJccY724GJskHqM5TRKufvVgW0 FhOJUlzAbvDjJ3g7M5Qk1TQ5R7 BB64KP04jYLrz7B1vSR5H7Dl XUNkhswdtubdmQR1TLMyXDIcnD 93Sx7aiUegIn0rYZEaYCE9TLTs hFUdL0AlyU8sWlTeCPEwANTy B7HppEXrNTueZ907GBlqIyY2PY RjljDtH3VcLYXmiYakQmD1w6G5 Gh5KZZy4VE01RJ67yAWgj4L0 vFV4D1KwRQNcbrtospsjjEK7AR QoQHXoxE89Pv8wmJskQy1nNYOu BCX5PAOvcJLlT3QgpR7lIaXn KOXkTUAgB6MukSJqGTjyT761WE yoExT1YPLlpyOmH8AiMJUdvSci OjL8o4C6Ol3ZGJGiPR47ZID3 aHT8MS17IY11V1PlIvtcbNZvcV U+PHRhYmxlIHdpZHRoPScxMDAl CyNwoKdpQL7cIb7xIFVfKKHr pSwthIPiAtFxk7vaTAHqRDheNE 3qbNdkY3YnxYD2IMYjy7o7Lw37 Z95sY2AhdIJ+DCMwoFA3uJL3 bF3sMbQhDsJ3BTwwM959EiNesX ThTgpzk6jzw2oegTp0FpI0EBJs hlCtbZknLVD2j2JvRl30Q67k IHdpZHRoPSIxNSUiIHZhbGlnbj 2dqF2yBa9+LZWrbGD8wLS4oB6t LzQkNjG0XZdcY493QfMldQVs Sfebc4qig6motJo2GdLjIWCyyz PstWocZSM7t6AeAd57N1PhjIyj r5GsZnu4vc63jOLqy8A3mTB8 L6YeFYXgzbdnoEUilIpiUT4lGN RadutoNHXtvM8kKCVzH3s1OnKi CoB2NRyiU2DrxtA6PDKcmCEe NQneBOL1F76nd8J5PVSoCJUzXM C8pOO5vY6wzEhbkhwryZZbiHhy qdHihJpmPIyuYIwnJ040UXEp xCrdNOTtbA2pVNYfsKCcwPzbSC 4vDSGfthpxUp2ZBW1PBQkOIClq C8dMAfaUQiFAJQ10RV92fDZf y0M9nIG8V6LhVNSvxngfnmogdQ Q4UGHvUWNxlN88zRHuXYzeIs9a s0K0s034FYOxUJCnwV12Uo6q wQofCRFhgUSAvB8ecnzpz4yacv wnHfFqFYWjZWj2DZl4HVBmnTmu NrIlNPS2CeL6VPQ4kGKwzO5z fKqwnowivY0vCdn+MDIvMjYvMT g7LlylxIS+OEFyVVL3nQpiIFot VWNgjN6zGIWqU5w1AcBvMbC3 TAitF5HhZTIzonzxNj93rF8kXn BgDaT8MMdwS4WnzgH2JPEafWAx TVbiRKD2A86yk7Q4IJIpVVIx DXK2kWL2bR8oxXpepfhczBEhbM iqeeZrdTbbOMhhQAjnX769IQXl wMeuEpA0BSfcXTZpBQ92AN13 wQBhy5I9tVG6U8NqBQEtfpfudo uacFU5XVDdZADijS68oHKlPWei Ar7ww2X6z600SPOmTYVvuT64 Yx2jbMkiJFSusIKJaI5bjxhci4 jixidqDdNgICLiGFp6PJf2QKJg zWcuTtItJCL3YaY8MDQ7uMMz jB7yfMzrtogjkZ7cIxf+TWFsZT wvdGQ+EOHpUTX6lIgjAFpmWBYe lL0cYZFxR5r5UyXmMdG9YVgh O1VaXMOeonzbIp09qY9xDdXeSq G9TDwmL7KwglE6CNGadVIuREov LTT9Q00jy2V1FHZzKQUsOWB2 yFT2uU5obNyvgxlvjWKvtYwhil SiaWnlDOebZXvvV838JXShxIyu GtWijJ8jFSWfBIqpoBKtqHqj dGQ+HD77ed05C7AgYeptUfb7HM SoZSM6iWC8nM4mBVMnHOsbe5E4 sLP5R7WlhxDfsw2hr3aeNWXi KQnlD59cjUHsn0U9LNRteWZ2CX FtkNhgPqGtuU83Mcl+PGNvbGdy y7NmFztfb4egm3fndQc8TuTa XATimkTpnJyzCDX3m1QkJg83V1 9sIHdpZHRoPSIzMCUiIHZhbGln lv7ahZ1mZf5+FORvpTC4nCU6 kG2aFqQlGqG1TLiuD819LkIhpB WoAfdzo2ghh3wxjHb6AkCoKCNd ljXolZxrWSS9j6HwCz37M3Pa vKtyt1IaThy6vt06yCIlh5K5nC U5P3RkCGUpinfhtUUycLfiKZ9p GIHpartvSPBtmI1rHRCqT8i7 PuQgFqI4TCheV6RsbxQ1JJYzlS XoZKNuxMZUgK7qchrhz1uihhac FdZvXTGnLGa2EMi4DDXoePxj HeByFUU4SmZ7PMI9cUAenW8xjO lylwelkX0qXnp+SFa9u3udiDSm UQ3miVN8JO66CM90fEEfg0X6 uAS6P3LeQTZfohvqpcdihCD9BL NoGYCfpN02Ba9dzZqyJk1eNWKr XOB3QDYlzGHlY0IyhY5vAnVn BAYrNAIgB1WvpKTjRJnyO030RZ upZnR7OOHbnaJcP9AjOFWtxIeo JgI8i8Y1Vl4LWV27RP33OG71 zKSaq7S7oWF9Q3UfMXEnaxopdw luqCO8XUQbPCTwiJ21Eu0fhZer Ye9cLXBnFLT4VLKwpSOfR3Tj hT7iGhDuVVMgMQNrY8YudTTzRE tbV341KMgwLvY3GLDgpgMhP5Ef SIEbjBikKyK6j4N7Yn1MQj28 VQ18EG86xSMak0S5kMX7W1ZlQM EbnmdxiegqxNK6OGJzZOIdpZ68 Gc8vhBpuDn2tSQXwOYN5ETUa zDWfV7KrmE8kEzPgXRTnXLOaH3 VglLVvCJoeY785ASdfZhV1PFFu hkQwE6KjOVWrjGxeVkT0s0B5 Kp7TSIkfgew0V5OgRwbieDQ+PC 39LBZdTX32xSCujKPeo8ysfEa0 UuTqPBPbPNS1nBcfJRwve0Vw ZXIt (more content not included)... Normal [facility] Insurance Correspondence Off ice02-05-2022 Insurance Correspondence Office [id number]#2.00CD:127 [facility] Patient Correspondenceon Patient Correspondence [id number]#1.00CD:127 [facility] Insurance Correspondence Off ice02-04-2022 Insurance Correspondence Office [id number]#1.00CD:127 [facility] Physician Orderon 02-04-2022 Physician Order [id number]#1.00CD:127 [facility] Physician Order [id number]#1.00CD:127 [facility] Consent for Treatmenton 01-10 Consent for Treatment [id number]#1.00CD:12 7 [facility] Consultation Noteon 01-30-20 Consultation Note Patient: JUAN [...] were documented. Morphine- No reactions were documented. Meeker- No reactions were documented. Wheat- No reactions were documented. Current medications: (Selected) Prescriptions Prescribed cyclobenzaprine 10 mg Tab: 10 mg = 1 tab(s), Oral, TID, PRN for spasm, X 90 day(s), # 180 tab(s), Refills(s) 0, Pharmacy: [id number], 162, cm, 11/27/21 13:17:00 EDT, Height/Length Dosing, 108, kg, 11/27/21 13:17:00 EDT, Weight Dosing front wheeled walker: front wheeled walker, See Instructions, 1 EA, 0, front wheeled walker to be used for stablility Length of need: 99, Supply gabapentin 300 mg Cap: 300 mg = 1 cap(s), Oral, QID, X 30 day(s), # 120 cap(s), Refills(s) 1, Pharmacy: [facility] #[id number], 162, cm, 11/27/21 13:17:00 EDT, Height/Length Dosing, [...] All Problems Celiac disease / SNOMED CT 1328331222 / Confirmed Cancer / SNOMED CT 776989863 / Confirmed T cell lymphoma-3 years ago Snoring / SNOMED CT 620336971 / Confirmed Acid reflux / SNOMED CT 467532311 / Confirmed Anemia / SNOMED CT 826460515 / Confirmed Rheumatoid arthritis / SNOMED CT 313077327 / Confirmed Osteoarthritis / SNOMED CT 8334372628 / Confirmed Lymphoma / SNOMED CT 868933397 / Confirmed Lumbar post-laminectomy syndrome / SNOMED CT 173828924 / Confirmed 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 Normal [facility] Comment on above: Result Comment: Elec tronically Signed By: Elenita Lazar PA-C\.br\Date and Time Signed: 01/29/22 10:40 EDT\.br\Electronically Co-Signed By: Kilo BARAJAS, Mark Khoury\.br\Date and Time Co-Signed: 02/17/22 11:22 EDT Office/Clinic Note-Physician on 01-29-2022 Office/Clinic Note-Physician [id number]#1.00CD:127 Normal [facility] Vital Signs Date Time Vital Sign Value Performing Clinician Facility 07-01-2024 11:03-0500 Body height 162.6 cm Juanito SPANGLER-C [email or web address] 07-01-2024 11:03-0500 Diastolic blood pressure 68 mm[Hg] Juan[facility] SPANGLER-C [facility] 07-01-2024 11:03-0500 Heart rate 102 /min Juanito SPANGLER-C [facility] 07-01-2024 11:03-0500 SaO2% (BldA) [Mass fraction] 90 % Juanito Iglesias PA-C [facility] 07-01-2024 11:03-0500 Systolic blood pressure 108 mm[Hg] Juanito Iglesias PA-C Work Phone: [facility] 06-19-2024 15:06-0500 SaO2% (BldA) [Mass fraction] 93 % [facility] Comment on above: Performed By: #### VBG ####[facility] ([id number])[address] [place] [address] 05-23-2024 14:47-0500 Heart rate 85 /min Ambika Benson DO Work Phone: [facility] 05-23-2024 14:47-0500 Respiratory rate 20 /min Ambika Benson DO Work Phone: [facility] 05-23-2024 14:41-0500 SaO2% (BldA) [Mass fraction] 92 % Ambika Benson DO Work Phone: 0(052)[phone] [place] [address] 05-23-2024 11:15-0500 Body temperature 97.9 [degF] Ambika Benson DO Work Phone: 6(916)036-669775 [place] [address] 05-23-2024 11:15-0500 Diastolic blood pressure 64 mm[Hg] Ambika Benson DO Work Phone: [facility] 05-23-2024 11:15-0500 Systolic blood pressure 105 mm[Hg] Ambika Benson DO Work Phone: [facility] 05-23-2024 08:00-0500 Inhaled oxygen flow rate 2 L/min Ambika Benson DO Work Phone: [facility] 05-23-2024 06:00-0500 Body weight 89.4 kg Ambika Benson DO Work Phone: [facility] 05-20-2024 01:13-0500 Inhaled oxygen concentration 65 % Ambika Benson DO Work Phone: [facility] 05-19-2024 16:15-0500 Body height 162.56 cm Ambika Benson DO Work Phone: [facility] 04-29-2024 11:01-0500 Body height 162.6 cm Lisa Stovermagaly DO Work Phone: [facility] 04-29-2024 11:01-0500 Body mass index (BMI) [Ratio] 35.53 kg/m2 Lisa Benson DO Work Phone: [facility] [employer] 04-29-2024 11:01-0500 Body temperature 95.31 [degF] Lisa Benson DO Work Phone: [facility] 04-29-2024 11:01-0500 Body weight 93.89 kg Lisa Benson DO Work Phone: [facility] 04-29-2024 11:01-0500 Diastolic blood pressure 72 mm[Hg] Lisa Benson DO Work Phone: [facility] 04-29-2024 11:01-0500 Heart rate 98 /min Lisa Benson DO Work Phone: [facility] 04-29-2024 11:01-0500 SaO2% (BldA) [Mass fraction] 97 % Lisa Benson DO Work Phone: [facility] 04-29-2024 11:01-0500 Systolic blood pressure 132 mm[Hg] Lisa Benson DO Work Phone: [facility] 04-20-2024 12:22-0500 Body height 162.6 cm Lisa Benson DO Work Phone: [facility] 04-20-2024 12:22-0500 Body mass index (BMI) [Ratio] 35.87 kg/m2 Lisa Benson DO Work Phone: [facility] 04-20-2024 12:22-0500 Body temperature 97.11 [degF] Lisa Benson DO Work Phone: [facility] 04-20-2024 12:22-0500 Body weight 94.8 kg Lisa Benson DO Work Phone: [facility] 04-20-2024 12:22-0500 Diastolic blood pressure 78 mm[Hg] Lisa Benson DO Work Phone: [facility] 04-20-2024 12:22-0500 Heart rate 100 /min Lisa Benson DO Work Phone: [facility] 04-20-2024 12:22-0500 SaO2% (BldA) [Mass fraction] 96 % Lisa Benson DO Work Phone: [facility] 04-20-2024 12:22-0500 Systolic blood pressure 138 mm[Hg] Lisa Benson DO Work Phone: [facility] 03-31-2024 11:01-0500 Body height 162.6 cm Lisa Benson DO Work Phone: [facility] 03-31-2024 11:01-0500 Body mass index (BMI) [Ratio] 36.05 kg/m2 Lisa Benson DO Work Phone: [facility] 03-31-2024 11:01-0500 Body temperature 96.6 [degF] Lisa Benson DO Work Phone: [facility] 03-31-2024 11:01-0500 Body weight 95.25 kg Lisa Benson DO Work Phone: [facility] 03-31-2024 11:01-0500 Diastolic blood pressure 78 mm[Hg] Lisa Benson DO Work Phone: [facility] 03-31-2024 11:01-0500 Heart rate 87 /min Lisa Benson DO Work Phone: [facility] 03-31-2024 11:01-0500 SaO2% (BldA) [Mass fraction] 98 % Lisa Benson DO Work Phone: [facility] 03-31-2024 11:01-0500 Systolic blood pressure 130 mm[Hg] Lisa Benson DO Work Phone: [facility] 03-18-2024 09:07-0500 Diastolic blood pressure 72 mm[Hg] Jimmy Castle DO Work Phone: [facility] 03-18-2024 09:07-0500 Heart rate 92 /min Jimmy Vincent DO Work Phone: [facility] 03-18-2024 09:07-0500 Systolic blood pressure 145 mm[Hg] Jimmy Vincent DO Work Phone: [facility] 03-01-2024 10:51-0400 Body height 162.6 cm Lisa Benson DO Work Phone: [facility] [employer] 03-01-2024 10:51-0400 Body mass index (BMI) [Ratio] 36.73 kg/m2 Lisa Benson DO Work Phone: [facility] 03-01-2024 10:51-0400 Body temperature 97.11 [degF] Lisa Benson DO Work Phone: [facility] 03-01-2024 10:51-0400 Body weight 97.07 kg Lisa Benson DO Work Phone: [facility] 03-01-2024 10:51-0400 Diastolic blood pressure 68 mm[Hg] Lisa Benson DO Work Phone: [facility] 03-01-2024 10:51-0400 Heart rate 99 /min Lisa Benson DO Work Phone: [facility] 03-01-2024 10:51-0400 SaO2% (BldA) [Mass fraction] 96 % Lisa Benson DO Work Phone: [facility] 03-01-2024 10:51-0400 Systolic blood pressure 118 mm[Hg] Lisa Benson DO Work Phone: [facility] 02-03-2024 10:18-0400 Body height 162.6 cm Lisa Benson DO Work Phone: [facility] 02-03-2024 10:18-0400 Body mass index (BMI) [Ratio] 37.59 kg/m2 Lisa Benson DO Work Phone: [facility] 02-03-2024 10:18-0400 Body temperature 96.91 [degF] Lisa Benson DO Work Phone: [facility] 02-03-2024 10:18-0400 Body weight 99.34 kg Lisa Benson DO Work Phone: [facility] 02-03-2024 10:18-0400 Diastolic blood pressure 80 mm[Hg] Lisa Benson DO Work Phone: [facility] 02-03-2024 10:18-0400 Heart rate 100 /min Lisa Benson DO Work Phone: [facility] 02-03-2024 10:18-0400 SaO2% (BldA) [Mass fraction] 92 % Lisa Benson DO Work Phone: [facility] 02-03-2024 10:18-0400 Systolic blood pressure 124 mm[Hg] Lisa Benson DO Work Phone: [facility] 01-12-2024 15:20-0400 Body height 162.6 cm Koki Basilio PA Work Phone: [facility] 01-12-2024 15:20-0400 Body mass index (BMI) [Ratio] 37.76 kg/m2 Koki Basilio PA Work Phone: [facility] 01-12-2024 15:20-0400 Body temperature 97.3 [degF] Koki Basilio PA Work Phone: [facility] 01-12-2024 15:20-0400 Body weight 99.79 kg Koki Basilio PA Work Phone: [facility] 01-12-2024 15:20-0400 Diastolic blood pressure 60 mm[Hg] Koki Basilio PA Work Phone: [facility] 01-12-2024 15:20-0400 Heart rate 106 /min Koki Basilio PA Work Phone: [facility] 01-12-2024 15:20-0400 SaO2% (BldA) [Mass fraction] 97 % Koki Basilio PA Work Phone: [facility] 01-12-2024 15:20-0400 Systolic blood pressure 116 mm[Hg] Koki Basilio PA Work Phone: [facility] 01-11-2024 01:00-0400 Diastolic blood pressure 83 mm[Hg] DO Ambika Benson Work Phone: [facility] 01-11-2024 01:00-0400 Heart rate 93 /min DO Ambika Benson Work Phone: [facility] 01-11-2024 01:00-0400 Respiratory rate 20 /min DO Ambika Benson Work Phone: [facility] 01-11-2024 01:00-0400 SaO2% (BldA) [Mass fraction] 94 % DO Ambika Benson Work Phone: [facility] 01-11-2024 01:00-0400 Systolic blood pressure 127 mm[Hg] DO Ambika Benson Work Phone: [facility] 01-10-2024 19:40-0400 Body temperature 98.8 [degF] DO Ambika Benson Work Phone: [facility] 01-04-2024 13:33-0400 Body height 162.6 cm Lisa Benson DO Work Phone: [facility] 01-04-2024 13:33-0400 Body mass index (BMI) [Ratio] 37.76 kg/m2 Lisa Benson DO Work Phone: [facility] 01-04-2024 13:33-0400 Body temperature 96.91 [degF] Lisa Benson DO Work Phone: [facility] 01-04-2024 13:33-0400 Body weight 99.79 kg Lisa Benson DO Work Phone: [facility] 01-04-2024 13:33-0400 Diastolic blood pressure 68 mm[Hg] Lisa Benson DO Work Phone: [facility] 01-04-2024 13:33-0400 Heart rate 99 /min Lisa Benson DO Work Phone: [facility] 01-04-2024 13:33-0400 SaO2% (BldA) [Mass fraction] 96 % Lisa Benson DO Work Phone: [facility] 01-04-2024 13:33-0400 Systolic blood pressure 112 mm[Hg] Lisa Benson DO Work Phone: [facility] 12-29-2023 12:00-0400 Body temperature 98.1 [degF] DO Ambika Benson Work Phone: [facility] 12-29-2023 12:00-0400 Diastolic blood pressure 81 mm[Hg] DO Ambika Benson Work Phone: [facility] 12-29-2023 12:00-0400 Heart rate 91 /min DO Ambika Benson Work Phone: [facility] 12-29-2023 12:00-0400 Respiratory rate 18 /min DO Ambika Benson Work Phone: [facility] 12-29-2023 12:00-0400 SaO2% (BldA) [Mass fraction] 92 % DO Ambika Benson Work Phone: 5(275)453-626675 [place] [address] 12-29-2023 12:00-0400 Systolic blood pressure 142 mm[Hg] DO Ambika Benson Work Phone: [facility] 12-29-2023 05:13-0400 Body weight 103.6 kg DO Ambika Benson Work Phone: [facility] 12-28-2023 11:10-0400 Body height 160.02 cm DO Ambika Benson Work Phone: [facility] 12-27-2023 16:00-0400 Inhaled oxygen flow rate 3 L/min DO Ambika Benson Work Phone: [facility] 12-27-2023 05:58-0400 Body temperature 100 [degF] DO Ambika Benson Work Phone: [facility] 12-27-2023 05:58-0400 Diastolic blood pressure 71 mm[Hg] DO Ambika Benson Work Phone: [facility] 12-27-2023 05:58-0400 Heart rate 129 /min DO Ambika Benson Work Phone: [facility] 12-27-2023 05:58-0400 Inhaled oxygen flow rate 2 L/min DO Ambika Benson Work Phone: [facility] 12-27-2023 05:58-0400 Respiratory rate 20 /min DO Ambika Benson Work Phone: [facility] 12-27-2023 05:58-0400 SaO2% (BldA) [Mass fraction] 95 % DO Ambika Benson Work Phone: [facility] 12-27-2023 05:58-0400 Systolic blood pressure 120 mm[Hg] DO Tatiana. Ceci Benson Work Phone: 0(201)021-613675 [place] [address] 12-27-2023 04:22-0400 Body height 162.56 cm DO Tatiana. Ceci Benson Work Phone: 7(803)211-519275 [place] [address] 12-27-2023 04:22-0400 Body weight 103.4 kg DO Ambika Benson Work Phone: 5(827)951-867336 [address] 12-15-2023 12:24-0400 Body height 160.02 cm DO Ambika Benson Work Phone: 4(026)116-518875 [place] [address] 12-15-2023 12:24-0400 Body weight 102.5 kg DO Ambika Benson Work Phone: 5(951)873-695075 [place] [address] 12-15-2023 12:23-0400 Body temperature 97.6 [degF] DO Ambika Benson Work Phone: 1(509)881-035775 [place] [address] 12-15-2023 12:23-0400 Diastolic blood pressure 91 mm[Hg] DO Ambika Benson Work Phone: [facility] 12-15-2023 12:23-0400 Heart rate 98 /min DO Ambika Benson Work Phone: [facility] 12-15-2023 12:23-0400 Respiratory rate 18 /min DO Ambika Benson Work Phone: [facility] 12-15-2023 12:23-0400 SaO2% (BldA) [Mass fraction] 97 % DO Ambika Benson Work Phone: [facility] 12-15-2023 12:23-0400 Systolic blood pressure 128 mm[Hg] DO Ambika Benson Work Phone: [facility] 12-08-2023 14:46-0400 Body temperature 97.6 [degF] DO Ambika Benson Work Phone: [facility] 12-08-2023 14:46-0400 Diastolic blood pressure 95 mm[Hg] DO Ambika Benson Work Phone: [facility] 12-08-2023 14:46-0400 Heart rate 94 /min DO Ambika Benson Work Phone: [facility] 12-08-2023 14:46-0400 Respiratory rate 20 /min DO Ambika Benson Work Phone: [facility] 12-08-2023 14:46-0400 SaO2% (BldA) [Mass fraction] 95 % DO Ambika Benson Work Phone: [facility] 12-08-2023 14:46-0400 Systolic blood pressure 156 mm[Hg] DO Ambika Benson Work Phone: [facility] 12-08-2023 13:24-0400 Body height 162.56 cm DO Ambika Benson Work Phone: [facility] 12-08-2023 13:24-0400 Body weight 104.3 kg DO Ambika Benson Work Phone: [facility] 10-21-2023 12:20-0400 Body height 162.56 cm DO Ambika Benson Work Phone: [facility] 10-21-2023 12:20-0400 Body mass index (BMI) [Ratio] 39.4 kg/m2 DO Ambika Benson Work Phone: [facility] 10-21-2023 12:20-0400 Body temperature 97.7 [degF] DO Ambika Benson Work Phone: [facility] 10-21-2023 12:20-0400 Body weight 104.32 kg DO Ambika Benson Work Phone: [facility] 10-21-2023 12:20-0400 Diastolic blood pressure 95 mm[Hg] DO Ambika Benson Work Phone: [facility] 10-21-2023 12:20-0400 Heart rate 82 /min DO Ambika Benson Work Phone: [facility] 10-21-2023 12:20-0400 SaO2% (BldA) [Mass fraction] 97 % DO Ambika Benson Work Phone: [facility] 10-21-2023 12:20-0400 Systolic blood pressure 149 mm[Hg] DO Ambika Benson Work Phone: [facility] 12-24-2022 08:30-0400 Diastolic blood pressure 72 mm[Hg] Elenita DFine [facility] 12-24-2022 08:30-0400 Mean blood pressure 90 mm[Hg] Elenita DFine [facility] 12-24-2022 08:30-0400 Systolic blood pressure 126 mm[Hg] Elenita Lazar [facility] 11-26-2022 12:51-0400 Diastolic blood pressure 78 mm[Hg] Elenita DFine [facility] 11-26-2022 12:51-0400 Heart rate 97 /min Elenita DFine [facility] 11-26-2022 12:51-0400 Mean blood pressure 99 mm[Hg] Elenita DFine [facility] 11-26-2022 12:51-0400 Respiratory rate 14 /min Elenita DFine [facility] 11-26-2022 12:51-0400 Systolic blood pressure 142 mm[Hg] Elenitamal Lazar [facility] 11-04-2022 13:20-0400 Body height 161.29 cm Harry Faye Other [employer] Other 11-04-2022 13:20-0400 Body mass index (BMI) [Ratio] 38.88 kg/m2 Harry Mckinney Other [facility] [employer] Other 11-04-2022 13:20-0400 Body weight 101.15 kg Harry Faye Other [facility] [employer] Other 11-04-2022 13:20-0400 Diastolic blood pressure 90 mm[Hg] Harryjaylyn Mckinney Other [facility] [employer] Other 11-04-2022 13:20-0400 Systolic blood pressure 134 mm[Hg] Harryjaylyn Mckinney Other [facility] [employer] Other 07-23-2022 14:03-0400 Diastolic blood pressure 84 mm[Hg] Elenita Lazar [facility] 07-23-2022 14:03-0400 Heart rate 97 /min Elenita DFine [facility] 07-23-2022 14:03-0400 Mean blood pressure 98 mm[Hg] Elenita DFine [facility] 07-23-2022 14:03-0400 Respiratory rate 18 /min Elenita DFine [facility] 07-23-2022 14:03-0400 Systolic blood pressure 125 mm[Hg] Elenita DFine [facility] 07-01-2022 12:48-0500 Heart rate 88 /min Mark Boateng [facility] 07-01-2022 12:48-0500 SaO2% (BldA) [Mass fraction] 94 % Mark Kilo [facility] 07-01-2022 12:48-0500 Diastolic blood pressure 69 mm[Hg] Mark Kilo [facility] 07-01-2022 12:48-0500 Mean blood pressure 89 mm[Hg] Mark Kilo [facility] 07-01-2022 12:48-0500 Systolic blood pressure 129 mm[Hg] Mark Kilo [facility] 07-01-2022 12:46-0500 Respiratory rate 16 /min Mark Kilo [facility] 07-01-2022 12:41-0500 Diastolic blood pressure 92 mm[Hg] Mark Kilo [facility] 07-01-2022 12:41-0500 Heart rate 94 /min Mark Kilo [facility] 07-01-2022 12:41-0500 Respiratory rate 16 /min Mark Kilo [facility] 07-01-2022 12:41-0500 SaO2% (BldA) [Mass fraction] 93 % Mark Kilo [facility] 07-01-2022 12:41-0500 Systolic blood pressure 149 mm[Hg] Mark Kilo [facility] 07-01-2022 12:19-0500 Heart rate 94 /min Mark Kilo [facility] 07-01-2022 12:19-0500 SaO2% (BldA) [Mass fraction] 95 % Mark Kilo [facility] 07-01-2022 12:19-0500 Body temperature 98.06 [degF] Mark Kilo [facility] 07-01-2022 12:19-0500 Diastolic blood pressure 75 mm[Hg] Mark Kilo [facility] 07-01-2022 12:19-0500 Mean blood pressure 89 mm[Hg] Mark Kilo [facility] 07-01-2022 12:19-0500 Systolic blood pressure 117 mm[Hg] Mark Kilo [facility] 07-01-2022 12:18-0500 Respiratory rate 18 /min Mark Kilo [facility] 05-28-2022 10:29-0500 Diastolic blood pressure 84 mm[Hg] Elenita Lazar [facility] 05-28-2022 10:29-0500 Heart rate 108 /min Elenitamal Lazar [facility] 05-28-2022 10:29-0500 Mean blood pressure 98 mm[Hg] Elenitamal Lazar [facility] 05-28-2022 10:29-0500 Respiratory rate 18 /min Elenita Lazar [facility] 05-28-2022 10:29-0500 Systolic blood pressure 125 mm[Hg] Elenitamal Lazar [facility] 04-08-2022 10:08-0500 Diastolic blood pressure 70 mm[Hg] Mark Kilo [facility] 04-08-2022 10:08-0500 Heart rate 89 /min Mark Kilo [facility] 04-08-2022 10:08-0500 Mean blood pressure 87 mm[Hg] Mark Kilo [facility] 04-08-2022 10:08-0500 SaO2% (BldA) [Mass fraction] 98 % Mark Kilo [facility] 04-08-2022 10:08-0500 Systolic blood pressure 121 mm[Hg] Mark Kilo [facility] 04-08-2022 10:08-0500 Respiratory rate 16 /min Mark Kilo [facility] 04-08-2022 09:58-0500 Diastolic blood pressure 84 mm[Hg] Mark Kilo [facility] 04-08-2022 09:58-0500 Heart rate 95 /min Mark Kilo [facility] 04-08-2022 09:58-0500 Respiratory rate 16 /min Mark Kilo [facility] 04-08-2022 09:58-0500 SaO2% (BldA) [Mass fraction] 95 % Mark Kilo [facility] 04-08-2022 09:58-0500 Systolic blood pressure 137 mm[Hg] Mark Kilo [facility] 04-08-2022 09:43-0500 Body temperature 98.6 [degF] Mark Kilo [facility] 04-08-2022 09:43-0500 Diastolic blood pressure 80 mm[Hg] Mark Kilo [facility] 04-08-2022 09:43-0500 Heart rate 98 /min Mark Kilo [facility] 04-08-2022 09:43-0500 Mean blood pressure 103 mm[Hg] Mark Kilo [facility] 04-08-2022 09:43-0500 Respiratory rate 20 /min Mark Kilo [facility] 04-08-2022 09:43-0500 SaO2% (BldA) [Mass fraction] 99 % Mark Kilo [facility] 04-08-2022 09:43-0500 Systolic blood pressure 148 mm[Hg] Mark Kilo [facility] 03-07-2022 14:17-0400 Diastolic blood pressure 84 mm[Hg] Elenita Lazar [facility] 03-07-2022 14:17-0400 Heart rate 88 /min Elenita Lazar [facility] 03-07-2022 14:17-0400 Mean blood pressure 103 mm[Hg] Elenita Lazar [facility] 03-07-2022 14:17-0400 Respiratory rate 16 /min Elenita Lazar [facility] 03-07-2022 14:17-0400 Systolic blood pressure 141 mm[Hg] Elenita Lazar [facility] 02-17-2022 14:47-0400 Diastolic blood pressure 75 mm[Hg] Marktia Lopezner [facility] 02-17-2022 14:47-0400 Heart rate 79 /min Mark [facility] 02-17-2022 14:47-0400 Mean blood pressure 91 mm[Hg] Mark [facility] 02-17-2022 14:47-0400 SaO2% (BldA) [Mass fraction] 95 % Mark [facility] 02-17-2022 14:47-0400 Systolic blood pressure 123 mm[Hg] Mark [facility] 02-17-2022 14:40-0400 Diastolic blood pressure 89 mm[Hg] Mark [facility] 02-17-2022 14:40-0400 Heart rate 84 /min Mark [facility] 02-17-2022 14:40-0400 Respiratory rate 16 /min Mark K[facility] 02-17-2022 14:40-0400 SaO2% (BldA) [Mass fraction] 96 % Mark [facility] 02-17-2022 14:40-0400 Systolic blood pressure 129 mm[Hg] Mark [facility] 02-17-2022 13:37-0400 Body temperature 98.42 [degF] Mark [facility] 02-17-2022 13:37-0400 Diastolic blood pressure 81 mm[Hg] Mark [facility] 02-17-2022 13:37-0400 Heart rate 85 /min Mark [facility] 02-17-2022 13:37-0400 Mean blood pressure 102 mm[Hg] Mark [facility] 02-17-2022 13:37-0400 Respiratory rate 16 /min Mark [facility] 02-17-2022 13:37-0400 SaO2% (BldA) [Mass fraction] 95 % Mark [facility] 02-17-2022 13:37-0400 Systolic blood pressure 145 mm[Hg] Mark K[facility] 01-29-2022 10:19-0400 Diastolic blood pressure 94 mm[Hg] Elenita Lazar [facility] 01-29-2022 10:19-0400 Heart rate 92 /min Elenita Lazar [facility] 01-29-2022 10:19-0400 Mean blood pressure 112 mm[Hg] Elenita Lazar [facility] 01-29-2022 10:19-0400 Respiratory rate 18 /min Elenita Lazar [facility] 01-29-2022 10:19-0400 Systolic blood pressure 149 mm[Hg] Elenita DFine [facility] 11-27-2021 13:05-0400 Diastolic blood pressure 93 mm[Hg] Elenita DFine [facility] 11-27-2021 13:05-0400 Heart rate 88 /min Elenita DFine [facility] 11-27-2021 13:05-0400 Mean blood pressure 108 mm[Hg] Elenita DFine [facility] 11-27-2021 13:05-0400 Respiratory rate 18 /min Elenita DFine [facility] 11-27-2021 13:05-0400 Systolic blood pressure 139 mm[Hg] Elenita Lazar [facility] 09-25-2021 12:59-0400 Diastolic blood pressure 89 mm[Hg] Elenita DFine [facility] 09-25-2021 12:59-0400 Heart rate 88 /min Elenita DFine [facility] 09-25-2021 12:59-0400 Mean blood pressure 110 mm[Hg] Elenita DFine [facility] 09-25-2021 12:59-0400 Respiratory rate 18 /min Elenita Lazar [facility] 09-25-2021 12:59-0400 Systolic blood pressure 152 mm[Hg] Elenita Lazar [facility] 09-10-2021 14:18-0400 Diastolic blood pressure 83 mm[Hg] Mark [facility] 09-10-2021 14:18-0400 Heart rate 89 /min Mark Kilo [facility] 09-10-2021 14:18-0400 Mean blood pressure 98 mm[Hg] Mark K[facility] 09-10-2021 14:18-0400 SaO2% (BldA) [Mass fraction] 97 % Mark Kilo [facility] 09-10-2021 14:18-0400 Systolic blood pressure 128 mm[Hg] Mark Kilo [facility] 09-10-2021 14:15-0400 Diastolic blood pressure 100 mm[Hg] Mark K[facility] 09-10-2021 14:15-0400 Heart rate 92 /min Mark K[facility] 09-10-2021 14:15-0400 Respiratory rate 16 /min Mark Kilo [facility] 09-10-2021 14:15-0400 SaO2% (BldA) [Mass fraction] 96 % Mark Kilo [facility] 09-10-2021 14:15-0400 Systolic blood pressure 155 mm[Hg] Mark Kilo [facility] 09-10-2021 13:57-0400 Body temperature 98.24 [degF] Mark Kilo [facility] 09-10-2021 13:57-0400 Diastolic blood pressure 82 mm[Hg] Mark Boateng [facility] 09-10-2021 13:57-0400 Heart rate 89 /min Mark Boateng [facility] 09-10-2021 13:57-0400 Mean blood pressure 100 mm[Hg] Mark Boateng [facility] 09-10-2021 13:57-0400 Respiratory rate 14 /min Mark Boateng [facility] 09-10-2021 13:57-0400 SaO2% (BldA) [Mass fraction] 97 % Mark Boateng [facility] 09-10-2021 13:57-0400 Systolic blood pressure 135 mm[Hg] Mark Boateng [facility] 08-16-2021 10:03-0400 Diastolic blood pressure 78 mm[Hg] Elenita Lazar [facility] 08-16-2021 10:03-0400 Heart rate 91 /min Elenitamal Lazar [facility] 08-16-2021 10:03-0400 Mean blood pressure 100 mm[Hg] Elenitamal Lazar [facility] 08-16-2021 10:03-0400 Respiratory rate 18 /min Elenita Lazar [facility] 08-16-2021 10:03-0400 Systolic blood pressure 144 mm[Hg] Elenita Lazar [facility] Encounters Encounter Date Encounter Type Care Provider Facility Start: 07-01-2024 End: 07-01-2024 Office outpatient visit 25 minutes Juanito Iglesias PA-C Work Phone: [facility] Comment on above: Paroxysmal atrial fi brillation ([facility]-H[facility]) (Primary Dx); Essential hypertension Start: 07-01-2024 End: 07-01-[address] [facility] Start: 06-29-2024 End: 06-29-2024 Chart abstracting Scanning Provider External [facility] Start: 06-14-2024 End: 06-14-2024 [facility]odie leblanc Comment on above: afib rvr Start: 06-13-2024 End: 06-14-2024 Telephone encounter Kelly Salcedo [facility] Call Jodie r Comment on above: Consult (Afib/rvr) Start: 06-12-2024 ambulatory LISA BENSON JR [facility] Start: 06-12-2024 End: 06-14-2024 Clinisync Result Encounter Generic External Data Provider [facility] External Department Unsolicited Start: 06-12-2024 End: 06-14-2024 Clinisync Result Encounter Generic External Data Provider [facility] External Department Unsolicited Start: 06-12-2024 End: 06-24-2024 [facility] Start: 06-11-2024 End: 06-11-2024 Clinisync Result Encounter Yaritza Larry MD Work Phone: [facility] External Department Unsolicited Start: 06-11-2024 End: 06-11-2024 Clinisync Result Encounter Yaritza Larry MD Work Phone: [facility] External Department Unsolicited Start: 06-11-2024 End: 06-13-2024 Refill Lisa Benson DO Work Phone: [facility] Comment on above: Migraine without sta tus migrainosus, not intractable, unspecified migraine type (CMS/HCC) Start: 05-18-2024 Non-patient / Non-visit Ambika Benson DO Work Phone: [facility] Work Phone: Start: 05-17-2024 Non-patient / Non-visit Ambika Benson DO Work Phone: [facility] Pulmonary Work Phone: Start: 05-10-2024 Non-patient / Non-visit Ambika Stoveran DO Work Phone: [facility] Pul[facility] Work Phone: Start: 05-04-2024 Non-patient / Non-visit Ambika Benson DO Work Phone: [facility] Cardiology Work Phone: Start: 05-03-2024 Non-patient / Non-visit Ambika Benson DO Work Phone: [facility] Infect Dis Work Phone: Start: 05-03-2024 End: 05-23-2024 Evaluation and management of inpatient Ambika Benson DO Work Phone: [facility] Work Phone: Start: 05-03-2024 Non-patient / Non-visit Ambika Benson DO Work Phone: [facility] Pulmonary Work Phone: Start: 04-29-2024 End: 04-29-2024 Bamboo flowsheet Lisa Leblanc Krystalnatalie DO Work Phone: [facility] Start: 04-29-2024 End: 04-29-2024 Bamboo flowsheet Lisa Leblanc Krystalnatalie DO Work Phone: [facility] Start: 04-29-2024 End: 04-29-2024 Office outpatient visit 15 minutes Lisa Benson DO Work Phone: [facility] Comment on above: Morbid obesity (CMS/ HCC); Vertigo Start: 04-29-2024 End: 04-29-2024 ambulatory LISA BENSON Not Available Start: 04-22-2024 End: 04-23-2024 Orders Only Lisa Benson DO Work Phone: [facility] External Department Unsolicited Start: 04-22-2024 End: 04-22-2024 Telephone encounter Lisa Benson DO Work Phone: [facility] 230 Comment on above: mychart Start: 04-20-2024 End: 04-20-2024 Refill Lisa Benson DO Work Phone: [facility] 230 Comment on above: Vertigo Start: 04-20-2024 End: 04-20-2024 ambulatory LISA BENSON Not Available Start: 04-20-2024 End: 04-20-2024 Office outpatient visit 15 minutes Lisa Benson DO Work Phone: [facility] 230 Comment on above: Oral aphthae (Primar y Dx); Thrush, oral; Frequent falls Start: 03-31-2024 End: 03-31-2024 Bamboo flowsheet Lisa Benson DO Work Phone: [facility] 230 Start: 03-31-2024 End: 03-31-2024 Bamboo flowsheet Lisa Benson DO Work Phone: [facility] 230 Start: 03-31-2024 End: 03-31-2024 Office outpatient visit 25 minutes Lisa Benson DO Work Phone: [facility] 230 Comment on above: Morbid obesity (CMS/ HCC) (Primary Dx); Prostate cancer screening; Prediabetes; MANUEL (obstructive sleep apnea); Spondylosis of lumbosacral spine without myelopathy; Other chronic pain Start: 03-31-2024 End: 03-31-2024 ambulatory LISA BENSON Not Available Start: 03-18-2024 End: 03-18-2024 ambulatory JIMMY CASTLE Facility:[facility] Start: 03-18-2024 End: 03-18-2024 Patient encounter procedure Jimmy Castle DO Work Phone: Neurology Comment on above: Frequent falls (Prim luz Dx); Mixed headache; Memory loss Start: 03-01-2024 End: 03-01-2024 Bamboo flowsheet Lisa R Kaftan DO Work Phone: [facility] Start: 03-01-2024 End: 03-01-2024 Bamboo flowsheet Lisa R Kaftan DO Work Phone: [facility] Start: 03-01-2024 End: 03-01-2024 Assay of hemosiderin, quant Koki Basilio PA Work Phone: [facility] Work Phone: Start: 03-01-2024 End: 03-01-2024 Patient encounter procedure Koki SPANGLER Work Phone: [facility] Comment on above: Routine general medi cassie examination at [facility] care facility (Primary Dx) Start: 03-01-2024 End: 03-01-2024 Office outpatient visit 25 minutes Lisa R Kapaulan DO Work Phone: [facility] Comment on above: Frequent falls (Prim luz Dx); Morbid obesity (CMS/HCC); Essential hypertension (CMS/HCC); Impaired mobility and ADLs; Lumbar post-laminectomy syndrome; Prediabetes Start: 03-01-2024 End: 03-01-2024 ambulatory KOKI BASILIO Not Available Start: 02-22-2024 End: 02-22-2024 Refill Oliver Arroyo LPN Work Phone: [facility] Comment on above: Other chronic pain Start: 02-10-2024 End: 02-10-2024 ambulatory LISA BENSON Not Available Start: 02-03-2024 End: 02-03-2024 Bamboo flowsheet Lisa R Kaftan DO Work Phone: [facility] Start: 02-03-2024 End: 02-03-2024 Bamboo flowsheet Lisa R Kaftan DO Work Phone: [facility] Start: 02-03-2024 End: 02-03-2024 Office outpatient visit 25 minutes Lisa R Kaftan DO Work Phone: [facility] Comment on above: Frequent falls (Prim luz Dx); Encounter for immunization; Lumbar post-laminectomy syndrome; Essential hypertension (CMS/HCC); Memory changes; Vertigo; Dizzy spells; Morbid obesity (CMS/HCC) Start: 02-03-2024 End: 02-03-2024 ambulatory LISA BENSON Not Available Start: 01-12-2024 End: 01-12-2024 Office outpatient visit 25 minutes Koki Basilio PA Work Phone: [facility] 230 Comment on above: Recurrent falls (Kerri tessa Dx); Memory changes; Lumbar back pain with radiculopathy affecting right lower extremity; Weakness of right lower extremity Start: 01-12-2024 End: 01-13-2024 ambulatory KOKI BASILIO Not Available Start: 01-10-2024 End: 01-11-2024 Emergency department patient visit DO Ambika Benson Work Phone: [facility] Work Phone: Start: 01-04-2024 End: 01-04-2024 ambulatory LISA BENSON Not Available Start: 01-04-2024 End: 01-04-2024 Transitional care manage srvc 7 day discharge Lisa Benson DO Work Phone: [facility] 201 Comment on above: COVID-19 (Primary Dx ); Morbid obesity (CMS/HCC); Pneumonia of lower lobe due to infectious organism, unspecified laterality; Oral thrush; Frequent falls Start: 12-27-2023 End: 12-29-2023 Evaluation and management of inpatient DO Ambika Ricepaulmagaly Work Phone: [facility] Work Phone: Start: 12-25-2023 End: 12-25-2023 ambulatory CHERELLE RODRIGUEZ Not Available Start: 12-15-2023 End: 12-15-2023 Emergency department patient visit DO Ambika Benson Work Phone: [facility] Work Phone: Start: 12-11-2023 End: 12-11-2023 ambulatory LISA BENSON Not Available Start: 12-08-2023 End: 12-08-2023 Emergency department patient visit DO Ambika Benson Work Phone: [facility] Work Phone: Start: 11-25-2023 End: 11-25-2023 ambulatory JESSICA WARRENBENTGIOVANY Not Available Start: 11-25-2023 End: 11-25-2023 ambulatory LISA BENSON Not Available Start: 11-06-2023 End: 11-06-2023 ambulatory HILDA Campos AVILADarien Not Available Start: 10-29-2023 End: 10-29-2023 ambulatory JESSICA WARRENBENTHAL Not Available Start: 10-28-2023 End: 10-28-2023 ambulatory LISA BENSON Not Available Start: 10-27-2023 End: 10-27-2023 ambulatory LAURA MARIN Not Available Start: 10-21-2023 End: 10-21-2023 ambulatory DO Ambika Benson Work Phone: [facility] Work Phone: Start: 10-21-2023 End: 10-21-2023 Patient encounter procedure DO Ambika Benson Work Phone: [facility] Natalie Work Phone: Start: 10-06-2023 End: 10-06-2023 ambulatory CHRISTEL DE DIOS Not Available Start: 09-22-2023 End: 09-22-2023 Patient encounter procedure DO Ambika Benson Work Phone: [facility] [address] Work Phone: Start: 09-22-2023 End: 09-22-2023 ambulatory Lavern Dahl Facility:[facility] Start: 09-21-2023 End: 09-21-2023 ambulatory JESSICA WARRENBENTHAL Not Available Start: 09-15-2023 End: 09-15-2023 ambulatory JESSICA WARRENBENTHAL Not Available Start: 09-10-2023 End: 09-10-2023 ambulatory LAVERN DAHL Not Available Start: 09-07-2023 End: 09-07-2023 ambulatory RAFAEL HANEY Not Available Start: 09-02-2023 End: 09-02-2023 ambulatory LAVERN DAHL Not Available Start: 08-18-2023 End: 08-18-2023 ambulatory JESSICA MOYNTHAL Not Available Start: 08-12-2023 End: 08-12-2023 ambulatory CHRISTEL C DIDION Not Available Start: 08-03-2023 End: 08-03-2023 ambulatory HILDA BEAL Not Available Start: 07-27-2023 End: 07-27-2023 ambulatory JESSICA MOYNTHAL Not Available Start: 07-27-2023 End: 07-27-2023 ambulatory CHRISTEL C DIDION Not Available Start: 07-20-2023 End: 07-20-2023 ambulatory JESSICA WARRENBENTHAL Not Available Start: 2023 Chart abstracting Jessica Moy nthal DPM Work Phone: [facility] Start: 2023 End: 2023 ambulatory JESSICA MOYNTHAL Not Available Start: 06-29-2023 End: 06-29-2023 ambulatory CHRISTEL C DIDION Not Available Start: 06-23-2023 End: 06-23-2023 Office outpatient visit 15 minutes Lisa Benson DO Work Phone: [facility] 230 Comment on above: COVID-19 Start: 06-17-2023 End: 06-17-2023 Office outpatient visit 15 minutes Jessica Parker DPM Work Phone: [facility] Comment on above: Skin ulcer of toe of left foot, limited to breakdown of skin (CMS/[facility]) (Primary Dx); Hammer toe of left foot Start: 06-17-2023 End: 06-17-2023 ambulatory JESSICA MOYNTGIOVANY Not Available Start: 06-15-2023 Bamboo flowsheet Christel Flores Didio n [employer] Work Phone: [facility] Start: 06-15-2023 Bamboo flowsheet Christel Flores Didio n [employer] Work Phone: [facility] Start: 06-15-2023 End: 06-15-2023 ambulatory CHRISTEL Flores DIDION Not Available Start: 06-14-2023 Chart abstracting Christel Wise on [employer] Work Phone: [facility] Start: 06-08-2023 End: 06-08-2023 ambulatory CHRISTEL Flores DIDION Not Available Start: 06-08-2023 End: 06-08-2023 ambulatory JESSICA WARRENBENTHAL Not Available Start: 05-28-2023 End: 05-28-2023 ambulatory CHRISTEL Flores DIDION Not Available Start: 05-26-2023 End: 05-26-2023 ambulatory DPM Jessica Parker Work Phone: [facility] Work Phone: Start: 05-26-2023 End: 05-26-2023 Departed Referred DPM Jessica Parker Work Phone: [facility] [place] Work Phone: Start: 05-26-2023 End: 05-26-2023 ambulatory JESSICA MOYNTHAL Not Available Start: 12-24-2022 End: 12-25-2022 ambulatory Elenita Lazar [place] Start: 12-24-2022 End: 12-24-2022 [facility] Start: 11-26-2022 End: 11-27-2022 ambulatory Elenita Lazar [place] Start: 11-26-2022 End: 11-26-2022 Pain Management Elenita Lazar [facility] Start: 11-04-2022 End: 11-04-2022 ambulatory Harry Mckinney Other [facility] Other Start: 11-04-2022 Office outpatient ne w 30 minutes Harry Mckinney [facility] Start: 10-21-2022 End: 10-22-2022 ambulatory Mark Boateng Facility[place] Start: 09-24-2022 End: 09-25-2022 ambulatory PA-C Elenita Lazar [place] Start: 07-23-2022 End: 07-24-2022 ambulatory Elenita Lazar [facility] Start: 07-23-2022 End: 07-23-2022 Pain Management Leenitamal Lazar [facility] Start: 07-01-2022 End: 07-02-2022 ambulatory Mark Boateng [place] Start: 07-01-2022 End: 07-01-2022 Pain Management Mark Boateng [facility] Start: 05-28-2022 End: 05-29-2022 ambulatory Elenita Lazar [place] Start: 05-28-2022 End: 05-28-2022 Pain Management Elenitamal Lazar [facility] Start: 04-08-2022 End: 04-09-2022 ambulatory Mark Boateng [place] Start: 04-08-2022 End: 04-08-2022 Pain Management Mark Boateng [facility] Start: 03-18-2022 End: 03-18-2022 Patient encounter procedure DO Ambika Benson Work Phone: [facility] Start: 03-07-2022 End: 03-08-2022 ambulatory Elenita Lazar [place] Start: 03-07-2022 End: 03-07-2022 Pain Management Elenitamal Lazar [facility] Start: 02-18-2022 End: 02-18-2022 Patient encounter procedure DO Ambika Benson Work Phone: [facility] [address] Start: 02-17-2022 End: 02-18-2022 ambulatory MD Mark Boateng [place] Start: 02-17-2022 End: 02-17-2022 Pain Management Mark Boateng [facility] Start: 02-12-2022 End: 02-12-2022 ambulatory DO Ambika eBnson Work Phone: [facility] Work Phone: Start: 02-12-2022 End: 02-12-2022 Discharged Recurring DO Ambika Ceci Benson Work Phone: [facility]Physical Therapy [address] Start: 01-29-2022 End: 01-30-2022 ambulatory Elenita Lazar [facility] Start: 01-29-2022 End: 01-29-2022 Pain Management Elenita Lazar [facility] Start: 12-11-2021 End: 12-11-2021 Patient encounter procedure DO Ambika Benson Work Phone: [facility] [address] Start: 11-27-2021 End: 11-27-2021 Pain Management Elenita Lazar [facility] Start: 09-25-2021 End: 09-25-2021 Pain Management Elenita Lazar [facility] Start: 09-10-2021 End: 09-10-2021 Pain Management Mark Boateng [facility] Start: 08-16-2021 End: 08-16-2021 Pain Management Elenita Lazar [facility] Procedures Date Procedure Procedure Detail Performing Clinician Start: 07-01-2024 Follow-up visit Follow-up JUANITO IGLESIAS Start: 06-13-2024 Adult depression scr eening assessment Kelly Salcedo Start: 06-12-2024 BLOOD CULTURE 1 Generic External Data Provider Start: 06-11-2024 ALL CBC WITH AUTO DIFF [...] 10-21-2022 Local anesthetic sac ral epidural block [employer] Comment on above: 10% relief Start: 07-01-2022 Local anesthetic sac ral epidural block [employer] Comment on above: patient fell soon af ter injection and can not provide relief Start: 04-08-2022 Epidural injection o f cervical spine using fluoroscopic guidance [employer] Comment on above: C7/T1 0% relief Start: 02-18-2022 MRI of cervical spin e without contrast DO Ambika Benson Work Phone: Start: 02-18-2022 X-ray of cervical spine DO Ambika Benson Work Phone: Start: 02-17-2022 Local anesthetic sac ral epidural block [employer] Comment on above: 100% relief for 24 h ours Start: 12-11-2021 MR thoracic spine wo con DO Ambika Benson Work Phone: Start: 09-10-2021 Local anesthetic sac ral epidural block [employer] Comment on above: 85% Start: 04-29-2021 Local anesthetic sac ral epidural block [employer] Comment on above: 75% relief Start: 03-18-2021 Epidural injection o f cervical spine using fluoroscopic guidance [employer] Comment on above: C6/7 90% relief Start: 09-17-2020 Local anesthetic sac ral epidural block [employer] Comment on above: 100% relief x 10 day s then down to 50% (present) Start: 05-14-2020 Local anesthetic sac ral epidural block [employer] Comment on above: 90% relief Start: 10-25-2019 Epidural injection o f lumbar spine using fluoroscopic guidance [employer] Comment on above: caudal 75-80% relief to present Start: 05-16-2019 Local anesthetic sac ral epidural block [employer] Comment on above: 95% relief to presen t Start: 11-15-2018 Injection of sacroil iac joint using fluoroscopic guidance [employer] Comment on above: left side- 50% pain relief Start: 12-28-2017 spinal cord stimulat or implant 10 [employer] Comment on above: 70% relief Start: 12-28-2017 spinal cord stimulat or implant 11 [employer] Comment on above: 70% relief Start: 12-28-2017 spinal cord stimulat or implant 13 [employer] Comment on above: 70% relief Start: 12-28-2017 spinal cord stimulat or implant 8 [employer] Comment on above: 70% relief Start: 12-28-2017 spinal cord stimulat or implant 9 [employer] Comment on above: 70% relief Start: 10-26-2017 scs 10 Elenitamal agarwaler Comment on above: 99% relief still. Start: 10-26-2017 scs 11 Elenitamal agarwaler Comment on above: 99% relief still. Start: 10-26-2017 scs 12 Elenitamal agarwaler Comment on above: 99% relief still. Start: 10-26-2017 scs 14 Elenitamal agarwaler Comment on above: 99% relief still. Start: 10-26-2017 scs 9 Elenitamal agarwaler Comment on above: 99% relief still. Start: 05-20-2017 Local anesthetic sac ral epidural block [employer] Comment on above: 30% relief starting day 2 after injection. Pt. reports still getting 30% relief. Start: 02-16-2017 Radiofrequency ablat ion of medial branch of lumbar nerve using fluoroscopic guidance [employer] Comment on above: right L3-S1 80% reli ef for three weeks Start: 02-04-2017 Radiofrequency ablat ion of medial branch of lumbar nerve using fluoroscopic guidance [employer] Comment on above: Left L3-S1 80% for t hree weeks Start: 01-09-2017 Medial Branch Block 13, 14 [employer] Comment on above: 80% relief x 3-4 day s Bilateral L3-S1 Start: 01-09-2017 Medial Branch Block 14, 15 [employer] Comment on above: 80% relief x 3-4 day s Bilateral L3-S1 Start: 01-09-2017 Medial Branch Block 15, 16 [employer] Comment on above: 80% relief x 3-4 day s Bilateral L3-S1 Start: 01-09-2017 Medial Branch Block 16, 17 [employer] Comment on above: 80% relief x 3-4 day s Bilateral L3-S1 Start: 01-09-2017 Medial Branch Block 18, 19 Elenita DFine Comment on above: 80% relief x 3-4 day s Bilateral L3-S1 Start: 12-22-2016 Medial branch block 15 Elenita DFine Comment on above: B/L L3-S1 80% for 3- 4 days Start: 12-22-2016 Medial branch block 16 Elenita DFine Comment on above: B/L L3-S1 80% for 3- 4 days Start: 12-22-2016 Medial branch block 17 Elenita DFine Comment on above: B/L L3-S1 80% for 3- 4 days Start: 12-22-2016 Medial branch block 18 Elenita DFine Comment on above: B/L L3-S1 80% for 3- 4 days Start: 12-22-2016 Medial branch block 20 Elenita DFine Comment on above: B/L L3-S1 80% for 3- 4 days Start: 04-07-2016 spinal cord explant 16 Elenita DFine Comment on above: spinal cord explant Start: 04-07-2016 spinal cord explant 17 Elenita A's Child Comment on above: spinal cord explant Start: 04-07-2016 spinal cord explant 18 Elenita DFine Comment on above: spinal cord explant Start: 04-07-2016 spinal cord explant 19 Elenita DFine Comment on above: spinal cord explant Start: 04-07-2016 spinal cord explant 21 Elenita DFine Comment on above: spinal cord explant Start: 12-28-2015 Iman Wise on [employer] Work Phone: Start: 10-04-2015 TFESI 17 Elenita Spr citlalli Comment on above: TFESI-O% Start: 10-04-2015 TFESI 18 Elenita Spr citlalli Comment on above: TFESI-O% Start: 10-04-2015 TFESI 19 Elenita Spr citlalli Comment on above: TFESI-O% Start: 10-04-2015 TFESI 20 Elenitamal Rodriguez citlalli Comment on above: TFESI-O% Start: 10-04-2015 TFESI 22 Elenitamal agarwaler Comment on above: TFESI-O% Start: 09-24-2015 Radiofrequency ablat ion of medial branch of lumbar nerve using fluoroscopic guidance [employer] Comment on above: LEFT RFA L2,L3,L4,L5 -S1 75% RELIEF Start: 09-10-2015 Radiofrequency ablat ion of medial branch of lumbar nerve using fluoroscopic guidance [employer] Comment on above: RIGHT RFA, L2,L3,L4, L5-S1, 60% RELIEF Start: 06-18-2015 Injection of facet j oint using fluoroscopic guidance [employer]e [employer] Comment on above: Bilateral FJI L3-S1- -10% relief overall Start: 04-30-2015 Extraction of cataract [employer]ak[employer] Comment on above: Rt. eye Start: 03-16-2015 Injection of facet j oint using fluoroscopic guidance [employer] Comment on above: Bilat Lumbar FJI L3- [...] 03-10-2011 Implantation of neurostimulator in spine Elenita DFine Start: 01-29-2011 Implantation of neurostimulator in spine Elenita DFine Comment on above: 2 leads T8-T12 Start: [...] branch of lumbar nerve using fluoroscopic guidance Elenita DFine Comment on above: LEFT L4-S1 Start: 05-22-2010 Injection of facet j oint using fluoroscopic guidance Elenita DFine Comment on above: LEFT L3-S1 Start: 04-03-2010 Injection of facet j oint using fluoroscopic guidance [employer] Comment on above: LEFT L3-S1 Start: 03-08-2010 Injection of facet j oint using fluoroscopic guidance Elenita DFine Comment on above: RIGHT L3-S1 Start: 02-01-2010 Injection of facet j oint using fluoroscopic guidance Elenita DFine Comment on above: right L3-L5 Start: 05-11-2003 laminectomy Elenita Michael agarwaler Cholecystectomy Elenita Rajput susan hiatal hernia Elenita Aston leblanc Respiratory Panel (PCR) DO Tatiana Benson Work Phone: Structure of eye pro per (body structure) Elenita DFine Comment on above: right (torn retina) Tonsillectomy and adenoidectomy [employer] Comment on above: 1963 Plan of Treatment Date Care Activity Detail Author Start: 12-07-2033 DTaP,Tdap and Td Vaccines (2 - Td or Tdap) DTaP,Tdap and Td Vaccines (2 - Td or Tdap) [facility] Start: 12-07-2033 Urine microalbumin profile DTaP,Tdap,Td Vaccine (2 - Td or Tdap) [facility] Start: 12-27-2025 Screening for malign ant neoplasm of colon [facility] Start: 07-01-2025 Tobacco Screening Tobacco Screening [facility] Start: 06-24-2025 Adult BMI Screening Adult BMI Screen ing [facility] Start: 06-22-2025 Tobacco Screening Tobacco Screening [facility] Start: 06-13-2025 Adult BMI Screening Adult BMI Screen ing [facility] Start: 06-13-2025 Depression Screening Depression Scre ening [facility] Start: 06-12-2025 Tobacco Screening Tobacco Screening [facility] Start: 03-01-2025 Medicare Annual Well ness (AWV) Medicare Annual Wellness (AWV) [facility] Start: 08-25-2024 End: 08-25-2024 Patient encounter procedure 08/25/2024 11:00 AM EDT Office Visit [facility] [address] [place] [address] [facility] Start: 07-01-2024 End: 07-01-2024 Patient encounter procedure 07/01/2024 11:30 AM EST Office Visit [facility] [address] [place] [address] Juanito Iglesias, VIRGIL [address] [place] [address] [facility] Start: 06-20-2024 End: 06-20-2024 Patient encounter procedure 06/20/2024 9:30 AM EST Office Visit Neurology [address] [place] [address] [place] [address] [place] [address] 3 Month Follow Up Neurology Comment on above: 3 Month Follow Up Start: 06-16-2024 End: 06-16-2024 Patient encounter procedure 06/16/2024 1:00 PM EST Office Visit [facility] [address] [place] [address] Lisa Benson, DO [address] [place], [place] [id number] [facility] Start: 05-30-2024 End: 05-30-2024 Patient encounter procedure 05/30/2024 1:00 PM EST Office Visit [facility] [address] [place] [address] Lisa Benson, DO [address] [place] [address] [facility] [address] Start: 05-23-2024 [facility] Start: 05-16-2024 Referral to palliati ve care physician [facility] Start: 05-13-2024 Referral to neurologist [facility] Start: 05-09-2024 Administration of prophylactic treatment [facility] Start: 05-03-2024 Referral to infectio us diseases physician [facility] Start: 05-02-2024 Referral to neurologist [facility] Start: 05-02-[address] [facility] Start: 04-29-2024 End: 04-29-2024 Patient encounter procedure [facility] Comment on above: Arrived Start: 04-20-2024 End: 04-20-2024 Patient encounter procedure 04/20/2024 12:20 PM EST Office Visit [facility] [address] [place] [address] Lisa Benson DO [address] [place] [address] [facility] Start: 03-31-2024 End: 03-31-2025 CBC W Auto Differential panel - Blood CBC and differential Lab Routine Prostate cancer screening Prediabetes Morbid obesity (CMS/HCC) MANUEL (obstructive sleep apnea) Spondylosis of lumbosacral spine without myelopathy Other chronic pain Expected: 03/31/2024 (Approximate), Expires: 03/31/2025 [facility] Comment on above: Expected: 03/31/2024 (Approximate), Expires: 03/31/2025 Start: 03-31-2024 End: 03-31-2025 Comprehensive metabolic 2000 panel - Serum or Plasma Comprehensive metabolic panel Lab Routine Prostate cancer screening Prediabetes Morbid obesity (CMS/HCC) MANUEL (obstructive sleep apnea) Spondylosis of lumbosacral spine without myelopathy Other chronic pain Expected: 03/31/2024 (Approximate), Expires: 03/31/2025 [facility] Work Phone: Comment on above: Expected: 03/31/2024 (Approximate), Expires: 03/31/2025 Start: 03-31-2024 End: 03-31-2025 Hemoglobin A1c/Hemoglobin.total in Blood Hemoglobin A1c Lab Routine Prediabetes Expected: 03/31/2024 (Approximate), Expires: 03/31/2025 [facility] Comment on above: Expected: 03/31/2024 (Approximate), Expires: 03/31/2025 Start: 03-31-2024 End: 03-31-2025 Prostate specific Ag [Mass/volume] in Serum or Plasma PSA Lab Routine Prostate cancer screening Expected: 03/31/2024 (Approximate), Expires: 03/31/2025 [facility] Comment on above: Expected: 03/31/2024 (Approximate), Expires: 03/31/2025 Start: 03-31-2024 End: 03-31-2024 Patient encounter procedure 03/31/2024 11:00 AM EST Office Visit [facility] [address] [place] [address] Lisa Benson, DO [address] [place] [address] Arrived [facility] Comment on above: Arrived Start: 03-01-2024 End: 03-01-2024 Patient encounter procedure 03/01/2024 11:00 AM EDT Office Visit [facility] [address] [place] [address] Lisa Benson, DO [address] [place] [address] Arrived [facility] Comment on above: Arrived Start: 02-22-2024 End: 02-22-2024 Patient encounter procedure 02/22/2024 1:20 PM EDT Office Visit [facility] [address] [place] [address] Koki Basilio PA [address] [place] [address] [facility] Start: 02-21-2024 Medicare Annual Well ness (AWV) Medicare Annual Wellness (AWV) [facility] Start: 02-10-2024 End: 02-10-2024 Professional / ancillary services management 02/10/2024 9:15 AM EDT Ancillary Procedure [facility] [address] [place] [phone] [facility] Start: 02-03-2024 End: 02-02-2025 US.doppler Carotid arteries - bilateral Vascular US carotid artery duplex bilateral Imaging Routine Frequent falls Vertigo Dizzy spells Expected: 02/03/2024, Expires: 02/02/2025 [facility] Work Phone: Comment on above: Expected: 02/03/2024 , Expires: 02/02/2025 Start: 02-03-2024 End: 02-03-2024 Patient encounter procedure 02/03/2024 11:20 AM EDT Office Visit [facility] [address] [place] [address] Lisa Benson DO [address] [place], [place] [id number] Arrived [facility] Comment on above: Arrived Start: 01-20-2024 End: 01-20-2024 Patient encounter procedure 01/20/2024 8:20 AM EDT Office Visit [facility] [address] [facility] [address] [place] [address] Laura Marin, JEANIE [address] [place] [address] [facility] Start: 01-11-2024 Plain chest X-ray XR chest 2V* [facility] Start: 01-11-2024 XR Chest 2 Views [facility] Start: 01-10-2024 CT cervical spine without contrast CT cervical spine wo [facility] Start: 01-10-2024 CT Cervical spine WO contrast [facility] Start: 01-10-2024 CT of head without contrast CT head/brain wo [facility] Start: 01-10-2024 CT Unspecified body region WO contrast [facility] Start: 01-10-2024 Covid-19 Vaccine ( season) Covid-19 Vaccine ( season) [facility] Start: 01-10-2024 Influenza vaccination Influenza Vacc ine (#1) [facility] Start: 01-06-2024 [facility] Start: 01-05-2024 [facility] Start: 01-04-2024 End: 01-03-2025 XR Chest 2 Views [facility] Work Phone: Comment on above: Expected: 01/04/2024 , Expires: 01/03/2025 Start: 01-04-2024 [facility] Start: 01-03-2024 [facility] Start: 01-02-2024 [facility] Start: 01-01-2024 [facility] Start: 12-31-2023 Comprehensive metabo lic 2000 panel - Serum or Plasma [facility] Start: 12-31-2023 [facility] Start: 12-30-2023 Comprehensive metabo lic 2000 panel - Serum or Plasma [facility] Start: 12-30-2023 [facility] Start: 12-29-2023 Physical therapy procedure [facility] Start: 12-29-2023 Referral to occupati onal therapist [facility] Start: 12-29-2023 Comprehensive metabo lic 2000 panel - Serum or Plasma [facility] Start: 12-29-2023 End: 12-29-2023 [facility] Start: 12-28-2023 Comprehensive metabo lic 2000 panel - Serum or Plasma [facility] Start: 12-28-2023 [facility] Start: 12-27-2023 [facility] Start: 12-27-2023 Bacteria identified in Blood by Culture [facility] Start: 12-27-2023 Blood culture for bacteria, including anaerobic screen Blood Culture [facility] Start: 12-27-2023 Introduction of Remdesivir Anti-infective into Peripheral Vein, Percutaneous Approach, [employer] 5 Introduction of Remdesivir Anti-infective into Peripheral Vein, Percutaneous Approach, [employer] 5 [facility] Start: 12-27-2023 Urine culture Urine Culture [facility] Start: 12-27-2023 [facility] Start: 12-27-2023 Legionella pneumophi la Ag [Presence] in Urine [facility] Start: 12-27-2023 Microbial culture of sputum [facility] Start: 12-27-2023 End: 12-27-2023 [facility] Start: 12-27-[address] [facility] Start: 12-27-2023 CT of head without contrast CT head/brain wo con [facility] Start: 12-27-2023 CT Unspecified body region WO contrast [facility] Start: 12-27-2023 Plain chest X-ray XR chest 1V portab le [facility] Start: 12-27-2023 XR Chest Single view [facility] Start: 12-27-2023 [facility] Start: 2023 Chart abstracting 2023 A bstract [facility] [address] [place] [address] Jessica Parker DPM [address] [place] [address] [facility] Start: 2023 End: 2023 Patient encounter procedure 2023 9:45 AM EST Office Visit [facility] [address] [place] [address] Jessica Parker, NEWTON [address] [place] [address] [facility] Start: 06-29-2023 End: 06-29-2023 Social Work 06/29/2023 12:00 PM EST Social Work [facility] [address] [place] [phone] Didion, Christel C, [employer] [address] [place] [address] [facility] Start: 06-22-2023 End: 06-22-2023 Patient encounter procedure 06/22/2023 9:45 AM EST [facility] [address] [place] [address] Jessica Parker DPM [address] [place] [address] [facility] Start: 06-15-2023 End: 06-15-2023 Social Work 06/15/2023 11:00 AM EST Social Work [facility] [address] [place] [address] Christel De Dios [employer] [address] [place] [address] [facility] Start: 05-26-2023 Superficial Wound Culture Superficial Wound Culture [facility] Start: 05-11-2023 Advance Directive Discussion Advance Directive Discussion [facility] Start: 12-03-2022 Administration of varicella zoster vaccine Zoster (Shingles) Vaccine (2 of 2) [facility] Start: 12-03-2022 Shingrix Vaccine (2 of 2) Shingrix Vaccine (2 of 2) [facility] Start: 2021 Fall Risk Screening Fall Risk Screen ing [facility] Start: 12-27-2016 Screening for malign ant neoplasm of colon [facility] Start: 2016 RSV Vaccine (1 - Ris k 60-74 years 1-dose series) RSV Vaccine (1 - Risk 60-74 years 1-dose series) [facility] Start: 2011 Prostate specific antigen measurement Prostate Cancer Screening Discussion [facility] Start: 2001 Diabetes Screening Diabetes Screenin g [facility] Start: 2001 Screening for malign ant neoplasm of colon [facility] Start: 1991 Lipid panel Lipid Screening [facility] Start: 1986 Zoledronic acid therapy Alpha- 1 Antitrypsin Deficiency Screening [facility] Start: 1974 Adult BMI Follow Up Plan Adult BMI Follow Up Plan [facility] Start: 1974 Annual PCP Team [employer] gomez Disease Visit Annual PCP Team Chronic Disease Visit [facility] Start: 1974 Diabetic foot examination Diabetic Foot Exam [facility] Start: 1974 Hepatitis C screening Hepatitis C Sc reening [facility] Start: 1974 Spirometry Spirometry [facility] Start: 1956 Glaucoma screening Diabetic Op hthalmology Exam [facility] Start: 1956 Screening for malign ant neoplasm of colon [facility] Start: 1956 Urine screening for protein Urine Microalbumin [facility] Bacteria identified in Unspecified specimen by Aerobe culture [facility] BLOOD CULTURE 1 BLOOD CULTURE 1 Lab Routine 06/12/2024 10:30 AM EST [facility] Fibrin D-dimer [Presence] in Platelet poor plasma by Latex agglutination [facility] INR in Platelet poor plasma by Coagulation assay [facility] Legionella pneumophi la Ag [Presence] in Urine [facility] Patient Education [facility] Work Phone: Patient referral [facility] Work Phone: Prothrombin time (PT) [facility] Specimen source [Identifier] of Unspecified specimen [facility] Streptococcus pneumo niae Ag [Presence] in Unspecified specimen [facility] Immunizations Immunization Date Immunization Notes Care Provider Ziyad boo 02-03-2024 influenza, high dose seasonal, preservative-free Lisa Benson DO Work Phone: [facility] 12-08-2023 tetanus toxoid, redu timothy diphtheria toxoid, and acellular pertussis vaccine, adsorbed DO Ambika Benson Work Phone: [facility] 02-20-2023 Influenza, injectabl e, Madin Josephine Canine Kidney, preservative free, quadrivalent Christel HARTLEYW-S Work Phone: [facility] 02-20-2023 Pneumococcal Conjuga te PCV 20 Christel Didion [employer] Work Phone: [facility] 02-20-2023 influenza virus vacc ine, unspecified formulation Lisa Benson DO Work Phone: [facility] 10-08-2022 zoster vaccine recombinant Christel Didion [employer] Work Phone: [facility] 10-08-2022 zoster vaccine, unspecified formulation [facility] 03-05-2022 Influenza, injectabl e, Madin Josephine Canine Kidney, preservative free, quadrivalent Christel Didion [employer] Work Phone: [facility] 04-02-2021 influenza, injectabl e, quadrivalent, preservative free Christel Didion [employer] Work Phone: [facility] 08-10-2020 Moderna SARS-CoV-2 Vaccination Lisa Benson DO Work Phone: [facility] 08-09-2020 Moderna SARS-CoV-2 Vaccination Christel Didion [employer] Work Phone: [facility] 07-13-2020 Moderna SARS-CoV-2 Vaccination Lisa Benson DO Work Phone: [facility] 07-12-2020 Moderna SARS-CoV-2 Vaccination Christel Didion [employer] Work Phone: [facility] 02-24-2020 influenza, high dose seasonal, preservative-free Christel Didion [employer] Work Phone: [facility] 02-24-2020 influenza, injectabl e, quadrivalent, preservative free Christel Didion [employer] Work Phone: [facility] 03-16-2019 Influenza, injectabl e, Madin Josephine Canine Kidney, quadrivalent with preservative Christel Didion [employer] Work Phone: [facility] 03-16-2019 Influenza, injectabl e, Madin Hull Canine Kidney, preservative free, quadrivalent Christel Didion [employer] Work Phone: [facility] 02-08-2018 influenza, injectabl e, quadrivalent, preservative free Christel Didion [employer] Work Phone: [facility] 02-17-2017 Influenza, injectabl e, Madin Josephine Canine Kidney, preservative free, quadrivalent Christel Didion [employer] Work Phone: [facility] 02-15-2017 influenza, seasonal, injectable, preservative free Christel Didion [employer] Work Phone: [facility] 12-18-2016 pneumococcal conjuga te vaccine, 13 valent Christel Didion [employer] Work Phone: [facility] 07-19-2015 influenza, seasonal, injectable, preservative free Christel Didion [employer] Work Phone: [facility] 07-19-2015 seasonal influenza, intradermal, preservative free Christel Didion [employer] Work Phone: [facility] 01-28-2014 seasonal influenza, intradermal, preservative free Christel Didion [employer] Work Phone: [facility] 04-21-2013 pneumococcal polysaccharide vaccine, 23 valent Christel Didion [employer] Work Phone: [facility] Payers Date Payer Category Payer Medicare HMO [employer] MEDICARE [id number] 2024 Unknown [id number] 2023 Medicare [id number] 2023 Self-pay [id number] 2023 Medicare (Managed Care) [employer] [id number] 2023 Unknown [employer] D [employer] [id number] 2023-Present [address] [place] [address] [id number] [id number] 2023 Medicare [id number] 2022 Unknown [id number] 2021 Private Health Insurance [id number] 2011 Medicare [id number] 1956 Unknown [id number] 2.16.840.1.947419.3.579. 2.727 1956 Unknown [id number] 2.16.840.1.169433.3.579. 2.727 1956 Unknown [id number] 2.16.840.1.276987.3.579. 2.727 1956 Unknown [id number] 2.16.840.1.625720.3.579. 2. 1956 Unknown [id number] 2.16.840.1.774625.3.579. 2. 1956 Unknown [id number] 2.16.840.1.451502.3.579. 2. 1956 Unknown [id number] 2.16.840.1.819058.3.579. 2. 1956 Unknown [id number] 2.16.840.1.797578.3.579. 2. 1956 Unknown [id number] 2.16.840.1.741067.3.579. 2. 1956 Unknown [id number] 2.840.1.800256.3.579. 2. 1956 Unknown [id number] 2.16840.1.684355.3.579. 2. 1956 Unknown [id number] 2.16840.1.416898.3.579. 2.1258 1956 Unknown [id number] 2.16840.1.073530.3.579. 2.1258 1956 Unknown [id number] 2.16840.1.963648.3.579. 2.1258 1956 Unknown [id number] 2.16.840.1.808898.3.579. 2.1258 1956 Unknown [id number] 2.16840.1.384517.3.579. 2.1258 1956 Unknown [id number] 2.16.840.1.074490.3.579. 2.125 1956 Unknown [id number] 2.16840.1.835985.3.579. 2.1259 1956 Unknown [id number] 2.16.840.1.381937.3.579. 2.1258 1956 Unknown [id number] 2.16.840.1.295331.3.579. 2.1258 1956 Unknown [id number] 2.16.840.1.951604.3.579. 2.1258 1956 Unknown [id number] 2.16.840.1.198073.3.579. 2.1258 1956 Unknown [id number] 2.16.840.1.429650.3.579. 2.1258 1956 Unknown [id number] 2.16.840.1.752281.3.579. 2.1258 1956 Unknown [id number] 2.16.840.1.286486.3.579. 2.1258 1956 Unknown [id number] 2.16.840.1.200466.3.579. 2.1258 1956 Unknown [id number] 2.16.840.1.894368.3.579. 2.1258 1956 Unknown [id number] 2.16.840.1.079699.3.579. 2.1258 1956 Unknown [id number] 2.16.840.1.258660.3.579. 2.1258 1956 Unknown [id number] 2.16.840.1.914316.3.579. 2.1258 1956 Unknown [id number] 2.16.840.1.020023.3.579. 2.1258 1956 Unknown [id number] 2.16.840.1.968790.3.579. 2.1258 1956 Unknown [id number] 2.16.840.1.388475.3.579. 2.1258 1956 Unknown [id number] 2.16.840.1.740926.3.579. 2.1259 1956 Unknown [id number] 2.16.840.1.246366.3.579. 2.1258 1956 Unknown [id number] 2.16.840.1.188176.3.579. 2.1258 1956 Unknown [id number] 2.16.840.1.042027.3.579. 2.1258 1956 Unknown [id number] 2.16.840.1.166877.3.579. 2.1258 1956 Unknown [id number] 2.16.840.1.092686.3.579. 2.1258 1956 Unknown [id number] 2.16.840.1.282731.3.579. 2.1258 1956 Unknown [id number] 2.16.840.1.710624.3.579. 2.1258 1956 Unknown [id number] 2.16.840.1.373103.3.579. 2.1258 1956 Unknown [id number] 2.16.840.1.411530.3.579. 2.1258 1956 Unknown [id number] 2.16.840.1.531490.3.579. 2.1258 1956 Unknown [id number] 2.16.840.1.721985.3.579. 2.1258 1956 Unknown [id number] 2.16.840.1.585974.3.579. 2.1258 1956 Unknown [id number] 2.16.840.1.148582.3.579. 2.1258 1956 Unknown [id number] 2.16.840.1.810441.3.579. 2.1258 1956 Unknown [id number] 2.16.840.1.821645.3.579. 2.12587 Unknown [id number] 2.16.840.1.855959.3.579. 2.1286 1956 Unknown [id number] 2.16.840.1.661502.3.579. 2.1286 1956 Unknown [id number] 2.16.840.1.787739.3.579. 2.128 1956 Unknown [id number]. 2.1286 1955 Unknown [id number] [id number]. 2.1286 1955 Unknown [id number] [id number]. 2.1286 Unknown Ada / [id number] Unknown [id number] [id number]. 2.531 Unknown [id number] 2.16.840.1.995105.3.579. 2.531 Unknown [id number] 2.16.840.1.079795.3.579. 2.531 Unknown [id number] 2.16.840.1.528477.3.579. 2.531 Unknown [id number] 2.16840.1.583158.3.579. 2.531 Unknown [id number] 2.16840.1.376948.3.579. 2.531 Unknown [id number] [id number]. 2.531 Social History Date Type Detail Facility Start: 01-24-2016 End: 06-12-2024 Tobacco smoking status Never smoked tobacco (finding) [facility] Start: 02-18-2023 End: 06-12-2024 Sex Assigned At Male [facility] Start: 1955 Sex Assigned At Male [facility] Start: 10-20-2022 End: 06-12-2024 Tobacco use and exposure Smokeless tobacco non-user [facility] Start: 06-14-2023 End: 07-01-2024 Alcohol intake Lifetime non-drinker (finding) [facility] Start: 02-18-2023 End: 06-12-2024 History of Social function [facility] Within the last year , have you been afraid of your partner or ex-partner? No [facility] Do you belong to any clubs or organizations such as mandaeism groups, unions, [employer] or athletic groups, or school groups? Patient [...] 01-10-2024 Tobacco smoking status NHIS Ex-smoker (finding) [facility] Start: 03-18-2024 Alcoholic beverage intake Current non-drinker of alcohol (finding) [facility] Start: 07-21-2012 Alcohol Comment occasionally [facility] How often to you hav e a drink containing alcohol? Monthly or less [facility] How many standard drinks containing alcohol do you have on a typical day? 1 or 2 [facility] In the past 12 month s, was there a time when you were not able to pay the mortgage or rent on time? Yes [facility] Start: 05-23-2024 End: 06-12-2024 Sex Male (finding) [facility] NEGATED: Highlighted rowStart: NINF History of tobacco use Passive smoker [facility] Goals Date Patient Goal Desired Activity /State Personal health goal Comment on above: Formatting of this n ote might be different from the original. Evaluation of progress towards goal: Current Discharge Plan; IPR vs SNF Functional Status Date Assessment Result Facility 05-23-2024 Functional status Patient is Pro gressing Toward [facility] Work Phone: 12-29-2023 Functional status Patient at Baseline [facility] Work Phone: 12-24-2022 Functional Status N/A [facility] 11-26-2022 Functional Status N/A [facility] 07-23-2022 Functional Status N/A [facility] 07-01-2022 Functional Status N/A [facility] 05-28-2022 Functional Status N/A [facility] 04-08-2022 Functional Status N/A [facility] 03-07-2022 Functional Status N/A [facility] 02-17-2022 Functional Status N/A [facility] 01-29-2022 Functional Status N/A [facility] 11-27-2021 Functional Status N/A [facility] Mental Status Date Assessment Result Facility 05-23-2024 Cognitive function Cognitive Sta tus Patient is Progressing Toward [facility] Work Phone: 12-29-2023 Cognitive function Cognitive Sta tus Patient at Baseline [facility] Work Phone: [facility] Clinical Notes 08-16-2021 to 07-01-2024 Juanito Iglesias PA-C - 07/01/2024 11:30 AM ESTTelephone Encounter - Ruby Lyman - 06/14/2024 12:12 AM ESTTelephone Encounter - Ruby Lyman - 06/14/2024 12:12 AM EST Note Date & Type Note Facility 07-01-2024 History of Presen t illness Narrative Juan Alfred Date of visit: 07/01/2024 Date of : 1955 Age: 68 y.o. Patient Active Problem List Diagnosis Intracranial hemorrhage ([facility]) Seizure ([facility] Severe protein-calorie malnutrition ([facility]) Acid reflux Allergic rhinitis Anxiety and depression Arthritis Arthropathy Asthma without status asthmaticus Back pain Cancer ([facility]) Celiac disease Chronic pain COPD (chronic obstructive pulmonary disease) ([facility]) Essential hypertension Frequent falls Hammer toe of left foot Hemicrania Migraine Hypersomnia disorder related to a known organic factor Hypomagnesemia Insomnia Intervertebral disc disorder Left buttock pain Lumbar post-laminectomy syndrome Lumbar radiculopathy Mixed hyperlipidemia Morbid obesity ([facility]) Neck pain New onset of headaches after age 50 NHL (non-Hodgkin's lymphoma) ([facility]) Occipital neuralgia Tension type headache MANUEL (obstructive sleep apnea) Pneumonia Pneumonia due to methicillin susceptible Staphylococcus aureus (MSSA) ([facility]) Prediabetes Recurrent major depressive disorder, in partial remission ([facility]) Retinal vascular occlusion of left eye S/P laminectomy Sacroiliac joint dysfunction of left side Skin ulcer of toe of left foot, limited to breakdown of skin ([facility]) Snoring Spinal cord stimulator status Spondylosis of lumbosacral spine without myelopathy Head injury Paroxysmal atrial fibrillation ([facility]) Allergies Allergen Reactions Cipro [Ciprofloxacin Hcl] Rash Gluten Current Outpatient Medications Medication Sig Dispense Refill acetaminophen (TYLENOL) 325 mg tablet Take 2 tablets (650 mg total) by mouth every 6 (six) hours as needed for pain. albuterol (PROVENTIL HFA;VENTOLIN HFA) 90 mcg/actuation inhaler Inhale 2 puffs every 4 (four) hours as needed for wheezing or shortness of breath. aspirin 81 mg Take 1 tablet (81 mg total) by mouth in the morning. bumetanide (BUMEX) 2 mg tablet Administer 1 tablet (2 mg total) per tube daily as needed (leg swelling). 30 tablet 0 cyanocobalamin 1000 MCG tablet Administer 1 tablet (1,000 mcg total) per tube in the morning. 30 tablet 2 diltiazem LA (CARDIZEM LA) 180 mg 24 hr tablet Take 1 tablet (180 mg total) by mouth in the morning. divalproex (DEPAKOTE) 250 mg EC tablet Take 2 tablets (500 mg total) by mouth in the morning and 2 tablets (500 mg total) before bedtime. DULoxetine (CYMBALTA) 60 mg capsule Take 1 capsule (60 mg total) by mouth in the morning. fluticasone propion-salmeteroL (ADVAIR) 500-50 mcg/dose DISKUS Inhale 1 puff in the morning and 1 puff before bedtime. insulin lispro (HumaLOG) 100 unit/mL injection Inject 0.03-0.12 mL (3-12 Units total) under the skin in the morning and 0.03-0.12 mL (3-12 Units total) at noon and 0.03-0.12 mL (3-12 Units total) in the evening. Inject before meals. If BG 150-199 = 3 units, 200-249 = 4 units, 250-299 = 7 units, 300-349 = 10 units, 350-399 = 12 units. LORazepam (ATIVAN) 0.5 mg tablet Take 1 tablet (0.5 mg total) by mouth 6 (six) times a day. magnesium oxide (MAGOX) 400 mg tablet Administer 1 tablet (400 mg total) per tube in the morning. 30 tablet 2 melatonin 10 mg tablet Administer 10 mg per tube nightly. 30 tablet 2 metoprolol tartrate (LOPRESSOR) 25 mg tablet Take 0.5 tablets (12.5 mg total) by mouth in the morning and 0.5 tablets (12.5 mg total) before bedtime. Hold for heart rate less than 60.. 30 tablet 2 montelukast (SINGULAIR) 10 mg tablet Administer 1 tablet (10 mg total) per tube nightly. 30 tablet 2 polyethylene glycol (GLYCOLAX) 17 gram packet Administer 17 g per tube daily as needed (constipation). 30 packet 0 QUEtiapine (SEROquel) 25 mg tablet Administer 2 tablets (50 mg total) per tube nightly. 60 tablet 2 No current facility-administered medications for this visit. Chief Complaint Patient presents with Follow-up hosp f/u [facility]- discharged 06/24- saw [facility]BE in ED- labs 06/24- vas venous 06/20- sched w pt History of Present Illness Very pleasant 68 year old male who comes in for hospital follow up who is accompanied by his and her sister. Pt was admitted to [facility] for with left sided weakness and right gaze and inability to answer questions. Pt was actually at rehab getting better after urosepsis and atrial fibrillation and was set to go home when his neurological symptoms started. CT scan at [facility] revealed right frontal ICH with local SAH and surrounding edema and was transported to [facility]. We were consulted for his atrial fibrillation for which we managed rate control regimen. Unfortunately was unable to anticoagulation for obvious reasons. Pt seen in collaboration with Dr. Jay. Past Medical History: Diagnosis Date Asthma Atrial fibrillation ([facility]) Chronic back pain Diabetes mellitus type 2, controlled ([facility]) DJD (degenerative joint disease) Hypertension Idiopathic peripheral autonomic neuropathy Metabolic encephalopathy Migraine Pneumonia 05/2024 No data recorded No data recorded No data recorded Past Surgical History: Procedure Laterality Date CHOLECYSTECTOMY Diagnostic cerebral angiogram N/A 06/16/2024 Performed by Luis Starr MD at [facility] CARDIAC CATH LABS ESOPHAGOGASTRODUODENOSCOPY INSERTION PEG TUBE N/A 06/22/2024 Performed by Jessica Del Rio MD at [facility] INSERTION STIMULATOR NERVE PERIPHERAL LAMINECTOMY Neuro Invasive N/A 06/16/2024 Performed by Luis Starr MD at [facility] CATH [facility]S Family History Problem Relation Age of Onset Cancer Mother renal with mes to lung Heart disease Father Cancer Sister pancreatic Heart disease Brother Kidney disease Brother Social History Socioeconomic History Marital status: Spouse name: Not on file Number of children: Not on file Years of education: Not on file Highest education level: Not on file Occupational History Not on file Tobacco Use Smoking status: Never Smokeless tobacco: Never Vaping Use Vaping status: Never Used Substance and Sexual Activity Alcohol use: Never Drug use: Never Sexual activity: Not on file Other Topics Concern Not on file Social History Narrative Not on file Social Drivers of Health Financial Resource Strain: Medium Risk (03/01/2024) Received from [facility] Overall Financial Resource Strain (CARDIA) Difficulty of Paying Living Expenses: Somewhat hard Food Insecurity: No Food Insecurity (06/12/2024) Hunger Screening Food Insecurity - Worry: Never True Food Insecurity - Inability: Never True Transportation Needs: No Transportation Needs (06/12/2024) PRAPARE - Transportation Lack of Transportation (Medical): No Lack of Transportation (Non-Medical): No Physical Activity: Inactive (03/01/2024) Received from [facility] Exercise Vital Sign Days of Exercise per Week: 0 days Minutes of Exercise per Session: 0 min Stress: No Stress Concern Present (03/01/2024) Received from [facility] [place] of Occupational [facility] - Occupational Stress Questionnaire Feeling of Stress : Only a little Social Connections: Moderately Integrated (03/01/2024) Received from [facility] Social Connection and Isolation Panel [NHANES] Frequency of Communication with Friends and Family: More than three times a week Frequency of Social Gatherings with Friends and Family: Never Attends Mu-Ism Services: More than 4 times per year Active Member of Clubs or Organizations: No Attends Club or Organization Meetings: Never Marital Status: Interpersonal Safety: Patient Unable To Answer (06/12/2024) Humiliation, Afraid, Rape, and Kick questionnaire Fear of Current or Ex-Partner: Patient unable to answer Emotionally Abused: Patient unable to answer Physically Abused: Patient unable to answer Sexually Abused: Patient unable to answer Housing Instability: Low Risk (06/12/2024) Housing Instability Housing Instability: No Review of Systems Review of Systems Constitutional: Negative for malaise/fatigue. Cardiovascular: Negative for chest pain and palpitations. Respiratory: Negative for cough, shortness of breath and wheezing. Musculoskeletal: Negative for joint pain, joint swelling, muscle cramps and muscle weakness. Gastrointestinal: Negative for bloating, abdominal pain, heartburn, nausea and vomiting. Genitourinary: Negative for hematuria. Neurological: Negative for dizziness, headaches and light-headedness. Psychiatric/Behavioral: Negative for depression. The patient is not nervous/anxious. Vascular: Negative for claudication and lower extremity wounds or ulcers. CARDIOVASCULAR: Please review HPI. Physical Examination General appearance: moaning and groaning. Skin: Warm and dry to touch. Head: Normocephalic, without obvious abnormality, atraumatic. Eyes: Conjunctivae unremarkable, EOM intact. Neck: No JVD, No carotid bruit. Neck supple, trachea midline. Respiratory: Clear to auscultation bilaterally, no use of accessory muscles. Cardiovascular: RRR with normal S1 and S2 with no murmurs. Gastrointestinal: Soft, non-tender. Bowel sounds normal. VITAL SIGNS: BP 108/68 Pulse 102 Ht 162.6 cm (5' 4 ) SpO2 90% BMI 32.92 kg/m Orders Placed or Reconciled This Encounter Medications LORazepam (ATIVAN) 0.5 mg tablet Sig: Take 1 tablet (0.5 mg total) by mouth 6 (six) times a day. aspirin 81 mg Sig: Take 1 tablet (81 mg total) by mouth in the morning. diltiazem LA (CARDIZEM LA) 180 mg 24 hr tablet Sig: Take 1 tablet (180 mg total) by mouth in the morning. divalproex (DEPAKOTE) 250 mg EC tablet Sig: Take 2 tablets (500 mg total) by mouth in the morning and 2 tablets (500 mg total) before bedtime. There are no discontinued medications. IMPRESSIONS/PLAN 1. Paroxysmal atrial fibrillation (CMS-HCC) 2. Essential hypertension Unfortunately are unable to anticoagulate at this time. If ever able to can consider [facility] but will need neurology clearance and pt will need at least 45 days of AC. Only role for now is rate control. Rates are reasonable control today appears restless in his ambulate bed he is in. TODAYS ORDERS No orders of the defined types were placed in this encounter. FOLLOW UP Return in about 6 months (around 12/29/2024). PCP: LISA BENSON JR, DO Referring Physician: Lisa Benson Jr., [address] [facility], [id number] [address] Juanito Iglesias PA-C 07/01/24 1144 documented in this encounter [facility] 06-14-2024 Miscellaneous Notes Formattin g of this note might be different from the original. [phone] [facility] Nichole moscoso afib rvr, A805 Secure chat sent to Génesis WARE documented in this encounter [facility] 06-14-2024 Telephone encount er Note Contract: JOSE [phone] [facility] Nichole re afib rvr, rm A805 Secure chat sent to Génesis WARE [facility] 06-13-2024 Miscellaneous Notes Formattin g of this note might be different from the original. Contract: JOSE New consult for afib/rvr [facility] Sent Secure Chat to Génesis Kaba Routed call to [facility] Consult Desk documented in this encounter [facility] 06-13-2024 Telephone encount er Note Contract: [facility] New consult for afib/rvr [facility] 06-13-2024 Telephone encount er Note Contract: PPC Sent Secure Chat to Génesis Kaba Routed call to [facility] Consult Desk [facility] 05-23-2024 Discharge summary Note Date/Time May 23, 2024 1:04pm [place] [address] Discharge Summary Signed Patient: Juan Simon MR#: [id number] : 1955 Acct:[id number] Age/Sex: 68 / M Adm Date: 4 Loc: Room: [address] [place] [address]: Shira Nath MD Copies to: [...] 58 Discharge Plan Discharge Plan Patient Disposition: [facility] Facility Activity: Ambulate as Tolerated Diet: Other [...] 0RF bisacodyl 10 mg Suppository 10 mg TX DAILY PRN (Reason: Constipation) Qty: 0 0RF [...] PO DAILY Follow Up: [facility] [place] [Outside] (Call if needed. ) Ambika Benson DO [Primary Care Provider] - (Follow-up with your [...] % (Auto) 80.6, Lymph % (Auto) 11.4, [place] % (Auto) 6.9, Eos % (Auto) 0.4, Baso % (Auto) 0.7, Nucleat RBC Rel Count 0.1, Neut # (Auto) 16.1 H, Lymph # (Auto) 2.3, [place] # (Auto) 1.4 H, Eos # (Auto) [...] <Electronically signed by Shira Nath MD> 05/23/24 [facility] Work Phone: 1(554) 389-115801-13-2025 [place] [address] Discharge Summary Signed Patient: Juan Simon MR#: [id number] : 1955 Acct:[id number] Age/Sex: 68 / M Adm Date: 4 Loc: Room: [address] [place] [address]: Shira Nath MD Copies to: [...] 58 Discharge Plan Discharge Plan Patient Disposition: [facility] Facility Activity: Ambulate as Tolerated Diet: Other [...] 0RF bisacodyl 10 mg Suppository 10 mg [place] DAILY PRN (Reason: Constipation) Qty: 0 0RF [...] Natalie [Outside] (Call if needed. ) Ambika Benson DO [Primary Care Provider] - (Follow-up with your [...] % (Auto) 80.6, Lymph % (Auto) 11.4, [place] % (Auto) 6.9, Eos % (Auto) 0.4, Baso % (Auto) 0.7, Nucleat RBC Rel Count 0.1, Neut# (Auto) 16.1 H, Lymph # (Auto) 2.3, [place] # (Auto) 1.4 H, Eos # (Auto) [...] MD 05/23/24 12 56 Signed By: 05/23/[address] [place], [place] 4991901-12-2025 Progress note Author Shira Nath [facility] Note Date/Time May 22, 2024 3 :17pm [facility] [address] [place] [address] Hospitalist Progress Note Signed Patient: Juan Simon MR#: [id number] : 1955 Acct:[id number] Age/Sex: 68 / M Adm Date: 4 Loc: Room: [address] [place] [address] Type: ADM IN Attending Dr: Shira Nath [...] Units/3 Ml SUBCUT 05/11/25 11:59 Not Given TID.[facility] Protocol Insulin Human NPH 12 units 05/15/24 [...] MRI could not be done here at [facility]. Neurology team recommended repeat CAT scan which [...] <Electronically signed by Shira Nath MD> 05/22/24 [address] [facility] Work Phone: 1(885) 683-219901-12-2025 [place] [id number] Hospitalist Progress Note Signed Patient: Juan Simon MR#: [id number] : 1955 Acct:[id number] Age/Sex: 68 / M Adm Date: 4 Loc: 4P Room: 2H9146-4 Type: ADM IN Attending Dr: Shira Nath [...] 09:00 05/22/24 09:31 Aspirin 81 Mg Tablet.Dr CHO 05/06/25 08:59 [...] 09:00 05/22/24 09:31 Divalproex Sodium 250 Mg Tablet.Dr COH 05/11/25 08:59 250 mg BID EDIE Administration Docusate Sodium 100 mg 05/21/24 21:00 05/22/24 09:31 Docusate 100 Mg Capsule PO 05/21/25 20:59 100 mg BID EDIE Administration Duloxetine HCl 60 mg 05/13/24 09:00 05/22/24 09:31 Duloxetine 60 Mg Capsule.Dr PO 05/13/25 08:59 [...] Units/3 Ml SUBCUT 05/11/25 11:59 Not Given TID.[facility] Protocol Insulin Human NPH 12 units 05/15/24 [...] Tablet PO 05/02/25 21:59 10 [facility] Administration Nystatin 400,000 unit 05/13/24 09:00 05/22/24 [...] MRI could not be done here at [facility]. Neurology team recommended repeat CAT scan which [...] Nath MD 05/22/24 15 09 Signed By: 05/22/24 1517 [facility]01-11-2025 Progress note Author Panfilo Holley [facility] Note Date/Time May 21, 2024 3 :04pm [facility] [address] [place] [address] Pulmonology Progress Note Signed Patient: Juan Simon MR#: [id number] : 1955 Acct:[id number] Age/Sex: 68 / M Adm Date: 4 Loc: Room: [address] [place] [address] Type: ADM IN Attending Dr: Shira Nath [...] Panfilo Holley DO 05/21/24 1405 Signed By: <Electronically signed by Panfilo Holley DO> 05/21/24 [facility] [facility] Work Phone: 1(296) 646-253001-11-2025 [place] [address] Pulmonology Progress Note Signed Patient: Juan Simon MR#: [id number] : 1955 Acct:[id number] Age/Sex: 68 / M Adm Date: 4 Loc: 4 Room: [address] [place] [address] Type: ADM IN Attending Dr: Shira Nath [...] DO 05/21/24 1405 Signed By: 05/21/24 1504 [facility]01-11-2025 Progress note Author Shira Nath [facility] Note Date/Time May 21, 2024 1 1:41am [facility] [address] [place] [address] Hospitalist Progress Note Signed Patient: Juan Simon MR#: [id number] : 1955 Acct:[id number] Age/Sex: 68 / M Adm Date: 4 Loc: Room: [address] [place] [address] Type: ADM IN Attending Dr: Shira Nath [...] Tablet. PO 05/11/25 08:59 250 mg BID EIDE Administration Docusate Sodium 100 mg 05/21/24 21:00 [...] Units/3 Ml SUBCUT 05/11/25 11:59 Not Given TID.[facility] Protocol Insulin Human NPH 12 units 05/15/24 [...] Tablet PO 05/02/25 21:59 10 mg [facility] Administration Nystatin 400,000 unit 05/13/24 09:00 05/21/24 [...] MRI could not be done here at [facility]. Neurology team recommended repeat CAT scan which [...] <Electronically signed by Shira Nath MD> 05/21/24 [facility] Work Phone: 1(144) 221-238601-11-2025 [place] [address] Hospitalist Progress Note Signed Patient: Juan Simon MR#: [id number] : 1955 Acct:[id number] Age/Sex: 68 / M Adm Date: 4 Loc: Room: [address] [place] [address] Type: ADM IN Attending Dr: Shira Nath [...] 05/06/24 09:00 05/21/24 09:05 Aspirin 81 Mg Tablet.Dr PO 05/06/25 08:59 [...] Ml SUBCUT 05/11/25 11:59 Not Given TID[facility] Protocol Insulin Human NPH 12 units 05/15/24 [...] EDIE Administration Nystatin 400,000 unit 05/13/24 09:00 05/21/24 [...] MRI could not be done here at [facility]. Neurology team recommended repeat CAT scan which [...] plan. Documented By: Shira Nath MD 05/21/24 37 Signed By: 05/21/[address] [place], [place] 6093601-10-2025 Progress note Author Victor M Chaudhry [facility] Note Date/Time May 20, 2024 4 :08pm [facility] [address] [place] [address] Palliative Care Progress Note Signed Patient: Juan Simon MR#: [id number] : 1955 Acct:[id number] Age/Sex: 68 / M Adm Date: 4 Loc: 4 Room: [address] [place] [address] Type: ADM IN Attending Dr: Shira Nath [...] able to tell me he is from [facility] and went to [place] [employer], graduating in 1975. He has 1 stepchild?[facility]. He works several different jobs in the past, including a [employer]. He has been on medical disability since his mid 50s because of a back injury he sustained. Spiritual things are important to him, he belongs to [employer] in [place]. 30 minutes spent discussing goals of care [...] transfer when available. They said they prefer [facility] as #1 choice. We also [...] Case management is working on [facility]. CODE STATUS remains DNR CCA without [...] MPV Neut % (Auto) Lymph % (Auto) [place] % (Auto) Eos % (Auto) Baso % (Auto) Nucleat RBC Rel Count Neut # (Auto) Lymph # (Auto) [place] # (Auto) Eos # (Auto) Baso # [...] % (Auto) 90.0 Lymph % (Auto) 5.0 [place] % (Auto) 2.8 Eos % (Auto) 1.8 Baso % (Auto) 0.4 Nucleat RBC Rel Count 0.1 Neut # (Auto) 19.0 H Lymph # (Auto) 1.1 [place] # (Auto) 0.6 Eos # (Auto) 0.4 [...] Case management is working on discharge to [facility]. CODE STATUS remains DNR CCA without intubation. Documented By: Victor M Chaudhry DO 05/20/24 1 606 Signed By: <Electronically signed by DO Victor M Chaudhry> 05/20/24 [address] [facility] Work Phone: 1(544) 630-753001-10-2025 [place] [address] Palliative Care Progress Note Signed Patient: Juan Simon MR#: [id number] : 1955 Acct:[id number] Age/Sex: 68 / M Adm Date: 4 Loc: 4 Room: 9E7303-6 Type: ADM IN Attending Dr: Shira Nath [...] able to tell me he is from [facility] and went to [employer], graduating in 1975. He has 1 stepchild?[facility]. He works several different jobs in the past, including a [employer]. He has been on medical disability since his mid 50s because of a back injury he sustained. Spiritual things are important to him, he belongs to [facility] in [place]. 30 minutes spent discussing goals of care [...] transfer when available. They said they prefer [facility] as #1 choice. We also [...] Case management is working on discharge to [facility]. CODE STATUS remains DNR CCA [...] MPV Neut % (Auto) Lymph % (Auto) [place] % (Auto) Eos % (Auto) Baso % (Auto) Nucleat RBC Rel Count Neut # (Auto) Lymph # (Auto) [place] # (Auto) Eos # (Auto) Baso # [...] % (Auto) 90.0 Lymph % (Auto) 5.0 [place] % (Auto) 2.8 Eos % (Auto) 1.8 Baso % (Auto) 0.4 Nucleat RBC Rel Count 0.1 Neut # (Auto) 19.0 H Lymph # (Auto) 1.1 [place] # (Auto) 0.6 Eos # (Auto) 0.4 [...] Case management is working on discharge to [facility]. CODE STATUS remains DNR CCA without intubation. Documented By: Victor M Chaudhry DO 05/20/24 1 606 Signed By: 05/20/24 1608 [facility]01-10-2025 Progress note Author Shira Nath [facility] Note Date/Time May 20, 2024 1 :14pm [facility] [address] [place] [address] Hospitalist Progress Note Signed Patient: Juan Simon MR#: [id number] : 1955 Acct:[id number] Age/Sex: 68 / M Adm Date: 4 Loc: Room: [address] [place] [address] Type: ADM IN Attending Dr: Shira Nath [...] MRI could not be done here at [facility]. Neurology team recommended repeat CAT scan which [...] <Electronically signed by Shira Nath MD> 05/20/24 131 [facility] Work Phone: 1(358) 732-471301-10-2025 Progress note Author Jimmy Matias [facility] Note Date/Time May 20, 2024 1 1:36am [facility] [address] [place] [address] Pulmonology Progress Note Signed Patient: Juan Simon MR#: [id number] : 1955 Acct:[id number] Age/Sex: 68 / M Adm Date: 4 Loc: Room: 1K1435-7 Type: ADM IN Attending Dr: Shira Nath [...] taper Documented By: Jimmy Matias MD 5 5324 Signed By: <Electronically signed by MD Jimmy Matias> 05/20/24 1136 [facility] Work Phone: 1(457) 491-228301-10-2025 [place] [address] Hospitalist Progress Note Signed Patient: Juan Simon MR#: [id number] : 1955 Acct:[id number] Age/Sex: 68 / M Adm Date: 4 Loc: 4 Room: [address] [place] [address] Type: ADM IN Attending Dr: Shira Nath [...] 09:00 05/20/24 08:49 Aspirin 81 [address] Tablet.Dr CHO 05/06/25 08:59 [...] 09:00 05/20/24 08:50 Divalproex Sodium 250 [address]Dr CHO 05/11/25 [...] MRI could not be done here at [facility]. Neurology team recommended repeat CAT scan which [...] 05/20/24 13 10 Signed By: 05/20/24 1314 [facility]01-10-[address] [address] Pulmonology Progress Note Signed Patient: Juan Simon MR#: [id number] : 1955 Acct:[id number] Age/Sex: 68 / M Adm Date: 4 Loc: 4 Room: [address] [place] [address] Type: ADM IN Attending Dr: Shira Nath [...] Matias MD 5 0855 Signed By: 05/20/24 1136 [facility]01-09-2025 Progress note Author Jimmy Matias [facility] Note Date/Time May 19, 2024 5: 12pm [facility] [address] [place] [address] Pulmonology Progress Note Signed Patient: Juan Simon MR#: [id number] : 1955 Acct:[id number] Age/Sex: 68 / M Adm Date: 4 Loc: Room: [address] [place] [address] Type: ADM IN Attending Dr: Shira Nath [...] care Documented By: Jimmy Matias MD 5 0599 Signed By: <Electronically signed by MD Jimmy Matias> 05/19/24 6544 [facility] Work Phone: 1(295) 882-209101-09-2025 [place] [id number] Pulmonology Progress Note Signed Patient: Juan Simon MR#: [id number] : 1955 Acct:[id number] Age/Sex: 68 / M Adm Date: 4 Loc: 4P Room: [address] [place] [address] Type: ADM IN Attending Dr: Shira Nath [...] MD 5 1711 Signed By: 05/19/24 1712 [facility]01-09-2025 Progress note Author Victor M Chaudhry [facility] Note Date/Time May 19, 2024 2: 44pm [facility] [address] [place] [address] Palliative Care Progress Note Signed Patient: Juan Simon MR#: [id number] : 1955 Acct:[id number] Age/Sex: 68 / M Adm Date: 4 Loc: Room: [address] [place] [address] Type: ADM IN Attending Dr: Shira Nath [...] able to tell me he is from [facility] and went to [employer], graduating in 1975. He has 1 stepchild?Hortenica [facility]. He works several different jobs in the past, including a [employer]. He has been on medical disability since his mid 50s because of a back injury he sustained. Spiritual things are important to him, he belongs to [employer] [facility] [employer] [facility] [employer] in [place]. 30 minutes spent discussing goals of care [...] transfer when available. They said they prefer [facility] as #1 choice. We also [...] MPV Neut % (Auto) Lymph % (Auto) [place] % (Auto) Eos % (Auto) Baso % (Auto) Nucleat RBC Rel Count Neut # (Auto) Lymph # (Auto) [place] # (Auto) Eos # (Auto) Baso # [...] % (Auto) 91.1 Lymph % (Auto) 5.6 [place] % (Auto) 3.2 Eos % (Auto) 0.0 Baso % (Auto) 0.1 Nucleat RBC Rel Count 0.0 Neut # (Auto) 15.7 H Lymph # (Auto) 1.0 [place] # (Auto) 0.6 Eos # (Auto) 0.0 [...] signed by DO Victor M Chaudhry> 05/19/24 7641 [facility] Work Phone: 1(211) 885-320401-09-[address] [address] Palliative Care Progress Note Signed Patient: Juan Simon MR#: [id number] : 1955 Acct:[id number] Age/Sex: 68 / M Adm Date: 4 Loc: Room: [address] [place] [address] Type: ADM IN Attending Dr: Shira Nath [...] able to tell me he is from [facility] and went to [place] [employer], graduating in 1975. He has 1 stepchild?Hortencia [facility]. He works several different jobs in the past, including a [employer]. He has been on medical disability since his mid 50s because of a back injury he sustained. Spiritual things are important to him, he belongs to [facility] in [place]. 30 minutes spent discussing goals of care [...] transfer when available. They said they prefer [facility] as #1 choice. We also discussed [...] MPV Neut % (Auto) Lymph % (Auto) [place] % (Auto) Eos % (Auto) Baso % (Auto) Nucleat RBC Rel Count Neut # (Auto) Lymph # (Auto) [place] # (Auto) Eos # (Auto) Baso # [...] % (Auto) 91.1 Lymph % (Auto) 5.6 [place] % (Auto) 3.2 Eos % (Auto) 0.0 Baso % (Auto) 0.1 Nucleat RBC Rel Count 0.0 Neut # (Auto) 15.7 H Lymph # (Auto) 1.0 [place] # (Auto) 0.6 Eos # (Auto) 0.0 [...] 05/19/24 1 441 Signed By: 05/19/24 1444 [facility]01-08-2025 Consult note Author Victor M Chaudhry [facility] Note Date/Time May 18, 2024 5: 44pm [facility] [address] [place] [address] Palliative Care Consult Note Signed Patient: Juan Simon MR#: [id number] : 1955 Acct:[id number] Age/Sex: 68 / M Adm Date: 4 Loc: Room: [address] [place] [address] Type: ADM IN Attending Dr: Shira Nath [...] able to tell me he is from [facility] and went to [place] [employer], graduating in 1975. He has 1 stepchild?[facility]. He works several different jobs in the past, including a [employer]. He has been on medical disability since his mid 50s because of a back injury he sustained. Spiritual things are important to him, he belongs to [employer] in [place]. 30 minutes spent discussing goals of care [...] transfer when available. They said they prefer [facility] as #1 choice. We also discussed [...] 3 Ml Ampul.Neb) 3 ml [facility]ATION TID [facility] Stop: 05/10/25 13:59 Last Admin: 05/18/24 14:25 Dose: 3 ml Aspirin (Aspirin 81 Mg Tablet.) 81 mg PO DAILY [facility] Stop: 05/06/25 08:59 Last Admin: 05/18/24 08:51 Dose: 81 mg Budesonide/Formoterol Fumarate (Budesonide/Formoterol 160-4.5 Mcg 60 Puff/6 Gm Hfa.Aer.Ad) 2 puff INHALATION BID [facility] Stop: 05/02/25 20:59 Last Admin: 05/18/24 08:40 Dose: 2 puff Dextrose (Dextrose 50% In Water 25 Gm/50 Ml Syringe) 0 gm IV-PUSH PRN PRN PRN Reason: Hypoglycemia Stop: 05/11/25 08:44 Diltiazem HCl (Diltiazem Cd.24hr 180 Mg Cap.Er.24h) 180 mg PO [facility] Stop: 05/12/25 09:29 Last Admin: 05/18/24 08:52 Dose: 180 mg Divalproex Sodium (Divalproex Sodium 250 Mg Tablet.) 250 mg PO [facility]ID [facility] Stop: 05/11/25 08:59 Last Admin: 05/18/24 08:52 Dose: 250 mg Doxycycline Hyclate (Doxycycline Hyclate 100 Mg Tablet) 100 mg PO [facility]ID [facility] Last Admin: 05/18/24 08:51 Dose: 100 mg Duloxetine HCl (Duloxetine 60 Mg Capsule.Dr) 60 mg PO [facility]ILY [facility] Stop: 05/13/25 08:59 Last Admin: 05/18/24 08:52 Dose: 60 mg Enoxaparin Sodium (Enoxaparin 40 Mg/0.4 Ml Syringe) 40 mg SUBCUT DAILY@1000 [facility] Stop: 05/09/25 13:03 Last Admin: 05/18/24 09:15 [...] 100 mls @ 25 mls/hr IV Q8H [facility] Last Admin: 05/18/24 13:07 Dose: 25 mls/hr Vancomycin HCl (Vancomycin) 0.75 gm in 250 mls @ 250 mls/hr IV Q12H [facility] Insulin Aspart (Insulin Aspart 300 Units/3 Ml) 0 units SUBCUT TID.[facility]; Protocol Stop: 05/11/25 11:59 Last Admin: 05/18/24 11:48 Dose: 3 units Insulin Human NPH (Insulin Nph Human Isophane 300 Units/3 Ml Insuln.Pen) 12 units SUBCUT BID [facility] Stop: 05/15/25 10:59 Last Admin: 05/18/24 08:52 Dose: 12 units Magnesium Oxide (Magnesium Oxide 400 Mg Tablet) 400 mg PO TID [facility] Stop: 05/11/25 08:59 Last Admin: 05/18/24 13:07 Dose: 400 mg Methylprednisolone Sodium Succinate (Methylprednisolone Sod Succ/Pf 40 Mg/Ml (1ml) Vial) 40 mg IV-PUSH Q6H [facility] Stop: 05/12/25 13:59 Last Admin: 05/18/24 13:07 [...] % (Auto) 4.9 % (.) 05/18/24 05:47 [place] % (Auto) 3.4 % (.) 05/18/24 05:47 Eos % (Auto) 0.0 % (.) 05/18/24 05:47 Baso % (Auto) 0.0 % (.) 05/18/24 05:47 Nucleat RBC Rel Count 0.0 /100 WBC (0-0.5) 05/18/24 05:47 Neut # (Auto) 20.6 x10E3/uL (1.8-7.7) H 05/18/24 05:47 Lymph # (Auto) 1.1 x10E3/uL (1.00-4.8) 05/18/24 05:47 [place] # (Auto) 0.8 x10E3/uL (0.0-0.8) 05/18/24 05:47 [...] pH 6.0 (5.0-9.0) 05/02/24 10:45 Ur Specific [place] 1.024 (1.001-1.030) 05/02/24 10:45 Urine Protein 30 [...] able to tell me he is from [facility] and went to [place] [employer], graduating in 1975. He has 1 stepchild?Hortencia [facility]. He works several different jobs in the past, including a [employer]. He has been on medical disability since his mid 50s because of a back injury he sustained. Spiritual things are important to him, he belongs to [employer] in [place]. 30 minutes spent discussing goals of care [...] transfer when available. They said they prefer [facility] as #1 choice. We also discussed [...] Chaudhry DO 05/18/24 1 557 Signed By: <Electronically signed by DO Victor M Chaudhry> 05/18/24 1744 [facility] Work Phone: 1(703) [phone] [place] [address] Palliative Care Consult Note Signed Patient: Juan Simon MR#: [id number] : 1955 Acct:[id number] Age/Sex: 68 / M Adm Date: 4 Loc: 4 Room: [address] [place] [address] Type: ADM IN Attending Dr: Shira Nath [...] able to tell me he is from [facility] and went to [place] [employer], graduating in 1975. He has 1 stepchild?[facility]. He works several different jobs in the past, including a [employer]. He has been on medical disability since his mid 50s because of a back injury he sustained. Spiritual things are important to him, he belongs to [employer] in [place]. 30 minutes spent discussing goals of care [...] transfer when available. They said they prefer [facility] as #1 choice. We also [...] as documented Musculoskeletal Musculoskeletal: Reports muscle weakness [facility] Medical History Back pain with [...] 3 Ml Ampul.Neb) 3 ml [facility]ATION [facility]ID [facility] Stop: 05/10/25 13:59 Last Admin: 05/18/24 14:25 Dose: 3 ml Aspirin (Aspirin 81 Mg Tablet.) 81 mg PO [facility]ILY [facility] Stop: 05/06/25 08:59 Last Admin: 05/18/24 08:51 Dose: 81 mg Budesonide/Formoterol Fumarate (Budesonide/Formoterol 160-4.5 Mcg 60 Puff/6 Gm Hfa.Aer.Ad) 2 puff INHALATION BID [facility] Stop: 05/02/25 20:59 Last Admin: 05/18/24 08:40 Dose: 2 puff Dextrose (Dextrose 50% In Water 25 Gm/50 Ml Syringe) 0 gm IV-PUSH PRN PRN PRN Reason: Hypoglycemia Stop: 05/11/25 08:44 Diltiazem HCl (Diltiazem Cd.24hr 180 Mg Cap.Er.24h) 180 mg PO [facility] Stop: 05/12/25 09:29 Last Admin: 05/18/24 08:52 Dose: 180 mg Divalproex Sodium (Divalproex Sodium 250 Mg Tablet.) 250 mg PO [facility]ID [facility] Stop: 05/11/25 08:59 Last Admin: 05/18/24 08:52 Dose: 250 mg Doxycycline Hyclate (Doxycycline Hyclate 100 Mg Tablet) 100 mg PO [facility]ID [facility] Last Admin: 05/18/24 08:51 Dose: 100 mg Duloxetine HCl (Duloxetine 60 Mg Capsule.) 60 mg PO [facility]ILY [facility] Stop: 05/13/25 08:59 Last Admin: 05/18/24 08:52 Dose: 60 mg Enoxaparin Sodium (Enoxaparin 40 Mg/0.4 Ml Syringe) 40 mg SUBCUT DAILY@1000 [facility] Stop: 05/09/25 13:03 Last Admin: 05/18/24 09:15 [...] 100 mls @ 25 mls/hr IV Q8H [facility] Last Admin: 05/18/24 13:07 Dose: 25 mls/hr Vancomycin HCl (Vancomycin) 0.75 gm in 250 mls @ 250 mls/hr IV Q12H [facility] Insulin Aspart (Insulin Aspart 300 Units/3 Ml) 0 units SUBCUT TID[facility]; Protocol Stop: 05/11/25 11:59 Last Admin: 05/18/24 11:48 Dose: 3 units Insulin Human NPH (Insulin Nph Human Isophane 300 Units/3 Ml Insuln.Pen) 12 units SUBCUT BID [facility] Stop: 05/15/25 10:59 Last Admin: 05/18/24 08:52 Dose: 12 units Magnesium Oxide (Magnesium Oxide 400 Mg Tablet) 400 mg PO TID [facility] Stop: 05/11/25 08:59 Last Admin: 05/18/24 13:07 Dose: 400 mg Methylprednisolone Sodium Succinate (Methylprednisolone Sod Succ/Pf 40 Mg/Ml (1ml) Vial) 40 mg IV-PUSH Q6H [facility] Stop: 05/12/25 13:59 Last Admin: 05/18/24 13:07 Dose: 40 mg Metoprolol Succinate (Metoprolol Succinate 50 Mg Tab.Er.24h) 37.5 mg PO BID [facility] Stop: 05/15/25 05:59 Last Admin: 05/18/24 08:52 Dose: 37.5 mg Montelukast Sodium (Montelukast 10 Mg Tablet) 10 mg PO [facility] Stop: 05/02/25 21:59 Last Admin: 05/17/24 21:11 Dose: 10 mg Nystatin (Nystatin Susp 500,000 Unit/5 Ml Udc) 400,000 unit PO QID [facility] Stop: 05/13/25 08:59 Last Admin: 05/18/24 13:07 [...] % (Auto) 4.9 % (.) 05/18/24 05:47 [place] % (Auto) 3.4 % (.) 05/18/24 05:47 Eos % (Auto) 0.0 % (.) 05/18/24 05:47 Baso % (Auto) 0.0 % (.) 05/18/24 05:47 Nucleat RBC Rel Count 0.0 /100 WBC (0-0.5) 05/18/24 05:47 Neut # (Auto) 20.6 x10E3/uL (1.8-7.7) H 05/18/24 05:47 Lymph # (Auto) 1.1 x10E3/uL (1.00-4.8) 05/18/24 05:47 [place] # (Auto) 0.8 x10E3/uL (0.0-0.8) 05/18/24 05:47 [...] pH 6.0 (5.0-9.0) 05/02/24 10:45 Ur Specific [place] 1.024 (1.001-1.030) 05/02/24 10:45 Urine Protein 30 [...] able to tell me he is from [facility] and went to [place] [employer], graduating in 1975. He has 1 stepchild?[facility]. He works several different jobs in the past, including a [employer]. He has been on medical disability since his mid 50s because of a back injury he sustained. Spiritual things are important to him, he belongs to [employer] [facility] in [place]. 30 minutes spent discussing goals of care [...] transfer when available. They said they prefer [facility] as #1 choice. We also [...] 05/18/24 1 557 Signed By: 05/18/24 1744 [facility]01-08-2025 Progress note Author Jimmy Matias [facility] Note Date/Time May 18, 2024 12 :11pm [facility] [address] [place] [address] Pulmonology Progress Note Signed Patient: Juan Simon MR#: [id number] : 1955 Acct:[id number] Age/Sex: 68 / M Adm Date: 4 Loc: Room: 3V5495-0 Type: ADM IN Attending Dr: Shira Nath [...] signed by MD Jimmy Matias> 05/18/24 1211 [facility] Work Phone: 1(645) 780-279201-08-2025 Progress note Author Shira Nath [facility] Note Date/Time May 18, 2024 11 :06am [facility] [address] [place] [address] Hospitalist Progress Note Signed Patient: Juan Simon MR#: [id number] : 1955 Acct:[id number] Age/Sex: 68 / M Adm Date: 4 Loc: 4 Room: [address] [place] [address] Type: ADM IN Attending Dr: Shira Nath [...] Ml SUBCUT 05/11/25 11:59 Not Given TID[facility] Protocol Insulin Human NPH 12 units 05/15/24 [...] MRI could not be done here at [facility]. Neurology team recommended repeat CAT scan which [...] <Electronically signed by Shira Nath MD> 05/18/24 1106 [facility] Work Phone: 1(324) 437-465501-08-2025 [place] [address] Pulmonology Progress Note Signed Patient: Juan Simon MR#: [id number] : 1955 Acct:[id number] Age/Sex: 68 / M Adm Date: 4 Loc: Room: [address] [place] [address] Type: ADM IN Attending Dr: Shira Nath [...] MD 5 1208 Signed By: 05/18/24 1211 [facility]01-08-2025 [place] [address] Hospitalist Progress Note Signed Patient: Juan Simon MR#: [id number] : 1955 Acct:[id number] Age/Sex: 68 / M Adm Date: 4 Loc: Room: [address] [place] [address] Type: ADM IN Attending Dr: Shira Nath [...] Ml SUBCUT 05/11/25 11:59 Not Given TID[facility] Protocol Insulin Human NPH 12 units 05/15/24 [...] MRI could not be done here at [facility]. Neurology team recommended repeat CAT scan which [...] 05/18/24 10 54 Signed By: 05/18/24 1106 [facility]01-07-2025 Progress note Author Shira Nath [facility] Note Date/Time May 17, 2024 1: 51pm [facility] [address] [place] [address] Hospitalist Progress Note Signed Patient: Juan Simon MR#: [id number] : 1955 Acct:[id number] Age/Sex: 68 / M Adm Date: 4 Loc: Room: [address] [place] [address] Type: ADM IN Attending Dr: Shira Nath [...] MRI could not be done here at [facility]. Neurology team recommended repeat CAT scan which [...] <Electronically signed by Shira Nath MD> 05/17/24 1351 [facility] Work Phone: 1(828) 669-182501-07-2025 Progress note Author Jimmy Matias [facility] Note Date/Time May 17, 2024 12 :38pm [facility] [address] [place] [address] Pulmonology Progress Note Signed Patient: Juan Simon MR#: [id number] : 1955 Acct:[id number] Age/Sex: 68 / M Adm Date: 4 Loc: 4 Room: [address] [place] [address] Type: ADM IN Attending Dr: Shira Nath [...] Last 24 Hours: Intake & Output 05/16/24 05/17/2425 23:59 07:59 15:59 Intake Total 700 / [...] signed by MD Jimmy Matias> 05/17/24 1238 [facility] Work Phone: 1(544) 134-230901-07-2025 [place] [address] Hospitalist Progress Note Signed Patient: Juan Simon MR#: [id number] : 1955 Acct:[id number] Age/Sex: 68 / M Adm Date: 4 Loc: Room: [address] [place] [address] Type: ADM IN Attending Dr: Shira Ntah MD Copies to: ~ Date of Service: [...] MRI could not be done here at [facility]. Neurology team recommended repeat CAT scan which [...] 05/17/24 13 48 Signed By: 05/17/24 1351 [facility]01-07-2025 [place] [id number] Pulmonology Progress Note Signed Patient: Juan Simon MR#: [id number] : 1955 Acct:[id number] Age/Sex: 68 / M Adm Date: 4 Loc: 4P Room: [address] [place] [address] Type: ADM IN Attending Dr: Shira Nath [...] Matias MD 5 1232 Signed By: 05/17/24 Critical access hospital8 [facility]01-06-2025 Progress note Author Jimmy Matias [facility] Note Date/Time May 16, 2024 5: 30pm [facility] [address] [place] [address] Pulmonology Progress Note Signed Patient: Juan Simon MR#: [id number] : 1955 Acct:[id number] Age/Sex: 68 / M Adm Date: 4 Loc: Room: [address] [place] [address] Type: ADM IN Attending Dr: Shira Nath [...] panel Documented By: Jimmy Matias MD 5 0882 Signed By: <Electronically signed by MD Jimmy Matias> 05/16/24 1730 [facility] Work Phone: 1(622) 287-603101-06-[address] [address] Pulmonology Progress Note Signed Patient: Juan Simon MR#: [id number] : 1955 Acct:[id number] Age/Sex: 68 / M Adm Date: 4 Loc: 4P Room: [address] [place] [address] Type: ADM IN Attending Dr: Shira Nath [...] MD 5 1307 Signed By: 05/16/24 1730 [facility]01-06-2025 Progress note Author Shira Nath [facility] Note Date/Time May 16, 2024 10 :24am [facility] [address] [place] [address] Hospitalist Progress Note Signed Patient: Juan Simon MR#: [id number] : 1955 Acct:[id number] Age/Sex: 68 / M Adm Date: 4 Loc: Room: [address] [place] [address] Type: ADM IN Attending Dr: Shira Nath [...] 05/13/24 09:00 05/16/24 08:54 Duloxetine 60 Mg Capsule. PO 05/13/25 08:59 [...] Units/3 Ml SUBCUT 05/11/25 11:59 Not Given TID.[facility] Protocol Insulin Human NPH 12 units 05/15/24 [...] MRI could not be done here at [facility]. Neurology team recommended repeat CAT scan which [...] signed by Shira Nath MD> 05/16/24 1024 [facility] Work Phone: 1(692) 977-335701-06-[address] [address] Hospitalist Progress Note Signed Patient: Juan Simon MR#: [id number] : 1955 Acct:[id number] Age/Sex: 68 / M Adm Date: 4 Loc: 4P Room: [address] [place] [address] Type: ADM IN Attending Dr: Shira Nath [...] Units/3 Ml SUBCUT 05/11/25 11:59 Not Given TID[facility] Protocol Insulin Human NPH 12 units 05/15/24 [...] MRI could not be done here at [facility]. Neurology team recommended repeat CAT scan which [...] MD 05/16/24 10 16 Signed By: 05/16/24 1024 [facility]01-05-2025 Progress note Author Miladis Rodriguez [facility] Note Date/Time May 15, 2024 6: 41pm [facility] [address] [place], [place] [id number] Pulmonology Progress Note Signed Patient: Juan Simon MR#: [id number] : 1955 Acct:[id number] Age/Sex: 68 / M Adm Date: 4 Loc: 4 Room: [address] [place] [address] Type: ADM IN Attending Dr: Hilda Ruiz [...] By: Miladis Rodriguez MD 1839 Signed By: <Electronically signed by Miladis Rodriguez MD> 05/15/24 1841 [facility] Work Phone: 1(528) 652-579601-05-2025 [place] [address] Pulmonology Progress Note Signed Patient: Juan Simon MR#: [id number] : 1955 Acct:[id number] Age/Sex: 68 / M Adm Date: 4 Loc: Room: [address] [place] [address] Type: ADM IN Attending Dr: Hilda Ruiz [...] to follow Documented By: Miladis Rodriguez MD 183 Signed By: 05/15/24 1841 [facility]01-05-2025 Progress note Author Lavern Dahl [facility] Note Date/Time May 15, 2024 1: 55pm [facility] [address] [place] [address] Neurology Progress Note Signed Patient: Juan Simon MR#: [id number] : 1955 Acct:[id number] Age/Sex: 68 / M Adm Date: 4 Loc: Room: [address] [place] [address] Type: ADM IN Attending Dr: Hilda Ruiz [...] confused today. He knows he is at [facility] he knows it is May he knows the year and is in 5 he says 05 but realizes [...] of dysmetria with good rapid alternating movements [id number] Tone is physiologic Motor examination is 5- [...] Therapy Recommendations: OT Recommendations OT Recommended Discharge [facility] Facility,Inpatient Rehab Unit Location OT Recommended Services at Physical Therapy,Occupational Therapy Discharge PT Recommendations PT Recommended Discharge [facility] Location PT Recommended Services at Physical [...] Lavern Dahl DO 05/15/24 1050 Signed By: <Electronically signed by DO Lavern Dahl> 05/15/24 7222 [facility] Work Phone: 1([phone] 269-636901-05-[address] [address] Neurology Progress Note Signed Patient: Juan Simon MR#: [id number] : 1955 Acct:[id number] Age/Sex: 68 / M Adm Date: 4 Loc: 4P Room: 8P4117-5 Type: ADM IN Attending Dr: Hilda Ruiz [...] confused today. He knows he is at [facility] he knows it is May he knows the year andis in he says 05 but realizes it is 2024 when we correcthim. He is answering questions and following commands much better than he did yesterday. speech was clear and fluent Cranial nerves II through XII pupils are equal reactive to light and accommodation bilaterally extraocular muscles were intact bilaterally visual ebnton are full there is no nystagmus there is no facial asymmetry tongue is midline good range of motion palate rises symmetrically uvula is midline there are no facial sensory deficit he has good bilateral shoulder shrug Pronator drift is negative Coordination shows no signs of dysmetria with good rapid alternating movements ehujvu-yx-wudy Tone is physiologic Motor examination is 5- [...] Therapy Recommendations: OT Recommendations OT Recommended Discharge [facility] Facility,Inpatient Rehab Unit Location OT Recommended Services at Physical Therapy,Occupational Therapy Discharge PT Recommendations PT Recommended Discharge [facility] Location PT Recommended Services at Physical [...] DO 05/15/24 1050 Signed By: 05/15/24 1355 [facility]01-05-2025 Progress note Author Hilda Ruiz [facility] Note Date/Time May 15, 2024 10 :55am [facility] [address] [place] [address] Hospitalist Progress Note Signed Patient: Juan Simon MR#: [id number] : 1955 Acct:[id number] Age/Sex: 68 / M Adm Date: 4 Loc: Room: [address] [place] [address] Type: ADM IN Attending Dr: Hilda Ruiz [...] be tachypneic. He is requiring high flow danxjn47%. Chest exam revealed bilateral rhonchi. Heart is [...] 05/06/24 09:00 05/15/24 09:08 Aspirin 81 Mg Tablet. PO 05/06/25 [...] MRI could not be done here at [facility]. This MRI could not be scheduled before [...] care that Juan is receiving here at [facility]. Documented By: Hilda Ruiz MD 05/15/24 105 Signed By: <Electronically signed by Hilda Ruiz MD> 05/15/24 105 [facility] Work Phone: 1([phone]) 282-708501-05-2025 [place] [address] Hospitalist Progress Note Signed Patient: Juan Simon MR#: [id number] : 1955 Acct:[id number] Age/Sex: 68 / M Adm Date: 4 Loc: Room: [address] [place] [address] Type: ADM IN Attending Dr: Hilda Ruiz [...] be tachypneic. He is requiring high flow tuvtam24%. Chest exam revealed bilateral rhonchi. Heart is [...] 05/06/24 09:00 05/15/24 09:08 Aspirin 81 Mg Tablet. PO 05/06/25 [...] 05/13/24 09:00 05/15/24 09:08 Duloxetine [address] CHO 05/13/25 08:59 60 mg DAILY EIDE Administration Enoxaparin Sodium 40 mg 05/09/24 13:04 [...] MRI could not be done here at [facility]. This MRI could not be scheduled before [...] care that Juan is receiving here at [facility]. Documented By: Hilda Ruiz MD 05/15/241051 Signed By: 05/15/24 105 [facility]01-04-2025 Progress note Author Miladis Rodriguez [facility] Note Date/Time May 14, 2024 3: 16pm [facility] [address] [place] [address] Pulmonology Progress Note Signed Patient: Juan Simon MR#: [id number] : 1955 Acct:[id number] Age/Sex: 68 / M Adm Date: 4 Loc: Room: [address] [place] [address] Type: ADM IN Attending Dr: Hilda Ruiz [...] By: Miladis Rodriguez MD 1513 Signed By: <Electronically signed by Miladis Rodriguez MD> 05/14/24 1516 [facility] Work Phone: 1([phone] Progress note Author Lavern Dahl [facility] Note Date/Time May 14, 2024 1: 52pm [facility] [address] [place] [address] Neurology Progress Note Signed Patient: Juan Simon MR#: [id number] : 1955 Acct:[id number] Age/Sex: 68 / M Adm Date: 4 Loc: Room: [address] [place] [address] Type: ADM IN Attending Dr: Hilda Ruiz [...] 96 High Flow 35 05/14/24 08:00 05/14/24 10:05/14/24 10:05/14/24 10:05/14/24 10:05/14/24 10:05/14/24 08:00 FiO2 70 05/14/24 10:00 Neuro Other: Patient is sitting in the bed. He is confused and has trouble with orientation questions but he is able to hold on a conversation. He does recognize me as I see him in the office. He knows he is at the hospital and eventually can get that it is [facility] but he needs multiple-choice. He states [...] of dysmetria with good rapid alternating movements euuqew-on-ngwq Tone is physiologic Motor examination is 5- [...] Therapy Recommendations: OT Recommendations OT Recommended Discharge [facility] Facility,Inpatient Rehab Unit Location OT Recommended Services at Physical Therapy,Occupational Therapy Discharge PT Recommendations PT Recommended Discharge [facility] Location PT Recommended Services at Physical [...] <Electronically signed by DO Lavern Dahl> 05/14/24 9765 [facility] Work Phone: 1(728) 597-919301-04-2025 [place] [address] Pulmonology Progress Note Signed Patient: Juan Simon MR#: [id number] : 1955 Acct:[id number] Age/Sex: 68 / M Adm Date: 4 Loc: Room: [address] [place] [address] Type: ADM IN Attending Dr: Hilda Ruiz [...] Time: 30 Documented By: Miladis Rodriguez MD 151 Signed By: 05/14/24 1516 [facility]01-04-2025 Progress note Author Hilda Ruiz [facility] Note Date/Time May 14, 2024 12 :39pm [facility] [address] [place] [address] Hospitalist Progress Note Signed Patient: Juan Simon MR#: [id number] : 1955 Acct:[id number] Age/Sex: 68 / M Adm Date: 4 Loc: Room: [address] [place] [address] Type: ADM IN Attending Dr: Hilda Ruiz [...] be tachypneic. He is requiring high flow djnmye44%. Chest exam revealed bilateral rhonchi. Heart is [...] Units/3 Ml SUBCUT 05/11/25 11:59 Not Given TID.[facility] Protocol Magnesium Oxide 400 mg 05/11/24 09:00 [...] Tablet PO 05/02/25 21:59 10 [facility] Administration Morphine Sulfate 1 mg 05/08/24 13:37 [...] MRI could not be done here at [facility]. This MRI could not be scheduled before [...] care that Juan is receiving here at [facility]. Documented By: Hilda Ruiz MD 05/14/24 1236 Signed By: <Electronically signed by Hilda Ruiz MD> 05/14/24 9631 [facility] Work Phone: 1(225) 416-973701-04-2025 [place] [address] Neurology Progress Note Signed Patient: Juan Simon MR#: [id number] : 1955 Acct:[id number] Age/Sex: 68 / M Adm Date: 4 Loc: Room: [address] [place] [address] Type: ADM IN Attending Dr: Hilda Ruiz [...] and eventually can get that it is [facility] but he needs multiple- choice. He [...] of dysmetria with good rapid alternating movements fokkpp-hj-unck Tone is physiologic Motor examination is 5- [...] Therapy Recommendations: OT Recommendations OT Recommended Discharge [facility] Facility,Inpatient Rehab Unit Location OT Recommended Services at Physical Therapy,Occupational Therapy Discharge PT Recommendations PT Recommended Discharge [facility] Location PT Recommended Services at Physical [...] DO 05/14/24 1117 Signed By: 05/14/24 1352 [facility]01-04-[address] [address] Hospitalist Progress Note Signed Patient: Juan Simon MR#: [id number] : 1955 Acct:[id number] Age/Sex: 68 / M Adm Date: 4 Loc: Room: [address] [place] [address] Type: ADM IN Attending Dr: Hilda Ruiz [...] be tachypneic. He is requiring high flow qohxnd28%. Chest exam revealed bilateral rhonchi. Heart is [...] Units/3 Ml SUBCUT 05/11/25 11:59 Not Given TID.[facility] Protocol Magnesium Oxide 400 mg 05/11/24 09:00 [...] MRI could not be done here at [facility]. This MRI could not be scheduled before [...] care that Juan is receiving here at [facility]. Documented By: Hilda Ruiz MD 05/14/24 1236 Signed By: 05/14/24 1239 [facility]01-03-2025 Progress note Author Miladis Rodriguez [facility] Note Date/Time May 13, 2024 5: 09pm [facility] [address] [place] [address] Pulmonology Progress Note Signed Patient: Juan Simon MR#: [id number] : 1955 Acct:[id number] Age/Sex: 68 / M Adm Date: 4 Loc: Room: [address] [place] [address] Type: ADM IN Attending Dr: Hilda Ruiz [...] he did pass his swallow eval per CUSTOMER SERVICE ANALYST; would still make sure there is full [...] <Electronically signed by Miladis Rodriguez MD> 05/13/24 1700 [facility] Work Phone: 1([phone]) 742-969401-03-2025 [place] [address] Pulmonology Progress Note Signed Patient: Juan Simon MR#: [id number] : 1955 Acct:[id number] Age/Sex: 68 / M Adm Date: 4 Loc: Room: [address] [place] [address] Type: ADM IN Attending Dr: Hilda Ruiz [...] however hedid pass his swallow eval per CUSTOMER SERVICE ANALYST; would still make sure there is full [...] Rodriguez MD 1656 Signed By: 05/13/24 1709 [facility]01-03-2025 Progress note Author Jimmy Gonzalez [facility] Note Date/Time May 13, 2024 11 :42am [facility] [address] [place] [address] Neurology Progress Note Signed Patient: Juan Simon MR#: [id number] : 1955 Acct:[id number] Age/Sex: 68 / M Adm Date: 4 Loc: Room: [address] [place] [address] Type: ADM IN Attending Dr: Hilda Ruiz [...] Therapy Recommendations: OT Recommendations OT Recommended Discharge [facility] Facility,Inpatient Rehab Unit Location OT Recommended Services at Physical Therapy,Occupational Therapy Discharge PT Recommendations PT Recommended Discharge [facility] Location PT Recommended Services at Physical [...] for prevention of stroke secondary to the FYT1SV6-NCCm score of 1 and the fact that A-fib would be secondary to sepsis. 3. Treatment of further metabolic development of infiltrates on x-ray per primary service. 3. Will follow Documented By: Jimmy Gonzalez DO 5 1102 Signed By: <Electronically signed by Jimmy Gonzalez DO> 05/13/24 1148 [facility] Work Phone: 1(298) 612-504601-03-2025 [place] [address] Neurology Progress Note Signed Patient: uJan Simon MR#: [id number] : 1955 Acct:[id number] Age/Sex: 68 / M Adm Date: 4 Loc: Room: [address] [place] [address] Type: ADM IN Attending Dr: Hilda Ruiz [...] Therapy Recommendations: OT Recommendations OT Recommended Discharge [facility] Facility,Inpatient Rehab Unit Location OT Recommended Services at Physical Therapy,Occupational Therapy Discharge PT Recommendations PT Recommended Discharge [facility] Location PT Recommended Services at Physical [...] for prevention of stroke secondary to the FDK5DB5-SJOb score of 1 and the fact that A-fib would be secondary to sepsis. 3. Treatment of further metabolic development of infiltrates on x-ray per primary service. 3. Will follow Documented By: Jimmy Gonzalez DO 5 1102 Signed By: 05/13/24 1142 [facility]01-03-2025 Progress note Author Hilda Ruiz [facility] Note Date/Time May 13, 2024 9: 39am [facility] [address] [place] [address] Progress Note Signed Patient: Juan Simon MR#: [id number] : 1955 Acct:[id number] Age/Sex: 68 / M Adm Date: 4 Loc: Room: [address] [place] [address] Type: ADM IN Attending Dr: Hilda Ruiz [...] By: <Electronically signed by Hilda Ruiz MD> 05/13/24 5909 [facility] Work Phone: 1(583) 285-103001-03-2025 Progress note Author Hilda Ruiz [facility] Note Date/Time May 13, 2024 9: 38am [facility] [address] [place] [address] Hospitalist Progress Note Signed Patient: Juan Simon MR#: [id number] : 1955 Acct:[id number] Age/Sex: 68 / M Adm Date: 4 Loc: Room: [address] [place] [address] Type: ADM IN Attending Dr: Hilda Ruiz [...] 09:00 05/13/24 09:20 Duloxetine [address] CHO 05/13/25 08:59 [...] yesterday MRI could not bedone here at [facility]. This MRI could not be scheduled before [...] the care that Juan is receiving hereat [facility]. Documented By: Hilda Ruiz MD 05/13/2435 Signed By: <Electronically signed by Hilda Ruiz MD> 05/13/2438 [facility] Work Phone: 1(810) 538-754701-03-2025 [place] [address] Progress Note Signed Patient: Juan Simon MR#: [id number] : 1955 Acct:[id number] Age/Sex: 68 / M Adm Date: 4 Loc: Room: [address] [place] [address] Type: ADM IN Attending Dr: Hilda Ruiz [...] Hilda Ruiz MD 05/13/24938 Signed By: 05/13/2439 [facility]01-03-2025 Progress [place] [id number] Hospitalist Progress Note Signed Patient: Juan Simon MR#: [id number] : 1955 Acct:[id number] Age/Sex: 68 / M Adm Date: 4 Loc: 4C Room: [address] [place] [address] Type: ADM IN Attending Dr: Hilda Ruiz [...] 05/06/24 09:00 05/13/24 09:08 Aspirin [address] CHO 05/06/25 08:59 81 mg DAILY EDIE Administration Budesonide/Formoterol Fumarate 2 puff 05/02/24 21:00 05/13/24 08:42 Budesonide/Formoterol 160-4.5 Mcg 60 Puff/6 Gm Hfa.Aer.Ad INHALATION 05/02/25 20:59 2 puff BID DEIE Administration Dextrose 0 gm 05/11/24 08:45 Dextrose [...] yesterday MRI could not bedone here at [facility]. This MRI could not be scheduled before [...] the care that Juan is receiving hereat [facility]. Documented By: Hilda Ruiz MD 05/13/24 0935 Signed By: 05/13/24 0938 [facility]01-03-2025 Radiology Diagnostic study note [facility] Main [place] [address] [place], [place] [address] CT Scan Report Signed Patient: Juan Simon MR#: [id number] : 1955 Acct:[id number] Age/Sex: 68 / M ADM Date: 4 Loc: Room: 1L5892-1 Type: ADM IN Attending Dr: Hilda Ruiz [...] Bj Herzog M.D.05/13/2024 8:36 AM Dictation Location: [place] [address] Transcribed By: MERCEDES 05/13/24835 Dictated By: Bj Herzog MD 05/13/24 0834 Signed By: 05/13/24 0836 [facility] Work Phone: 1([phone]) [phone] Progress note Author Moris Quarles [facility] Note Date/Time May 13, 2024 3: 36am [facility] [address] [place] [address] Event Note Signed with Addenda Patient: Juan Simon MR#: [id number] : 1955 Acct:[id number] Age/Sex: 68 / M Adm Date: 4 Loc: 4 Room: [address] [place] [address] Type: ADM IN Attending Dr: Hilda Ruiz [...] delirium. Addendum Documented By: Moris Quarles DO 05/13/24 0335 Addendum Signed By: <Electronically signed by Moris [...] Quarles DO 05/13/24 03 09 Signed By: <Electronically signed by Moris Quarles DO> 05/13/24 0317 [facility] Work Phone: 1(521) 154-499401-03-2025 Progress note Author Moris Quarles [facility] Note Date/Time May 13, 2024 3: 08am [facility] [address] [place] [address] Progress Note Signed Patient: Juan Simon MR#: [id number] : 1955 Acct:[id number] Age/Sex: 68 / M Adm Date: 4 Loc: Room: [address] [place] [address] Type: ADM IN Attending Dr: Hilda Ruiz [...] By: <Electronically signed by Moris Quarles DO> 05/13/248 <Electronically signed by DO EZEKIEL Moore> 05/12/242038 [facility] Work Phone: 1([phone]) [phone] Progress [place] [id number] Event Note Signed with Addenda Patient: Juan Simon MR#: [id number] : 1955 Acct:[id number] Age/Sex: 68 / M Adm Date: 4 Loc: Room: [address] [place] [address] Type: ADM IN Attending Dr: Hilda Ruiz MD Copies to: Tatiana Benson Jr, DO Michael R. Frings, DO Rafik Massouh, MD~ ADDENDUM1 I personally reassessed the patient [...] MINS): 20 Documented By: Moris Quarles DO 05/13/2407 17 Signed By: 05/13/24 0317 [facility]01-03-2025 [place] [address] Progress Note Signed Patient: Juan Simon MR#: [id number] : 1955 Acct:[id number] Age/Sex: 68 / M Adm Date: 4 Loc: Room: [address] [place] [address] Type: ADM IN Attending Dr: Hilda Ruiz MD Copies to: ~ Date of Service: 05/12/2024 Progress Narrative Note Mechanical fall Hematoma PROGRESS NOTE Progress Note: This patient has been present since 05/02 due to altered mental status noticed by his at home.He has been a one-on-one sitter due to significant fall risk and 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 This evening it was stated that he [...] status. Documented By: Moris Quarles DO 05/12/24 32 Signed By: 05/13/24 0308 05/12/242038 [facility]01-02-2025 Radiology Diagnostic study note [facility] [place] [place] [address] CT Scan Report Signed Patient: Juan Simon MR#: [id number] : 1955 Acct:[id number] Age/Sex: 68 / M ADM Date: 4 Loc: Room: [address] [place] [address] Type: ADM IN Attending Dr: Hilda Ruiz [...] Xander Solano M.D.05/12/2024 9:28 PM Dictation Location[facility]-- Transcribed By: MERCEDES 05/12/242127 Dictated By: Xander Solano II, MD 05/12/242123 Signed By: 05/12/242127 [facility] Work Phone: 1(567) 809-349201-02-2025 Progress note Author Chrystalog Rodriguez [facility] Note Date/Time May 12, 2024 3: 20pm [facility] [address] [place] [address] Pulmonology Progress Note Signed Patient: Juan Simon MR#: [id number] : 1955 Acct:[id number] Age/Sex: 68 / M Adm Date: 4 Loc: Room: [address] [place] [address] Type: ADM IN Attending Dr: Hilda Ruiz [...] with you Documented By: Miladis Rodriguez MD 1517 Signed By: <Electronically signed by Miladis Rodriguez MD> 05/12/24 1524 [facility] Work Phone: 1(950) 450-976901-02-2025 [place] [address] Pulmonology Progress Note Signed Patient: Juan Simon MR#: [id number] : 1955 Acct:[id number] Age/Sex: 68 / M Adm Date: 4 Loc: Room: [address] [place] [address] Type: ADM IN Attending Dr: Hilda Ruiz [...] Miladis Rodriguez MD 1514 Signed By: 05/12/24 [facility]0 [facility]01-02-2025 Progress note Author Hilda Ruiz [facility] Note Date/Time May 12, 2024 9: 27am [facility] [address] [place] [address] Hospitalist Progress Note Signed Patient: Juan Simon MR#: [id number] : 1955 Acct:[id number] Age/Sex: 68 / M Adm Date: 4 Loc: 4 Room: [address] [place] [address] Type: ADM IN Attending Dr: Hilda Ruiz [...] cardiology recommendation appreciated Elevated Troponin Type II FL Troponin was found incidentally to be mildly [...] mobility and ADL PT/OT has been consulted. [facility],Inpatient Rehab Unit was recommended. INTERVAL HPI:?As [...] Ml SUBCUT 05/11/25 11:59 Not Given TID.[facility] Protocol Magnesium Oxide 400 mg 05/11/24 09:00 [...] yesterday MRI could not bedone here at [facility]. This MRI could not be scheduled before [...] the care that Juan is receiving hereat [facility]. Documented By: Hilda Ruiz MD 05/12/2423 Signed By: <Electronically signed by Hilda Ruiz MD> 05/12/2427 [facility] Work Phone: 1(922) 165-157501-02-2025 [place] [id number] Hospitalist Progress Note Signed Patient: Juan Simon MR#: [id number] : 1955 Acct:[id number] Age/Sex: 68 / M Adm Date: 4 Loc: Room: [address] [place] [address] Type: ADM IN Attending Dr: Hilda Ruiz [...] cardiology recommendation appreciated Elevated Troponin Type II FL Troponin was found incidentally to be mildly [...] mobility and ADL PT/OT has been consulted. [facility],Inpatient Rehab Unit was recommended. INTERVAL HPI:?As [...] Ml SUBCUT 05/11/25 11:59 Not Given TID.[facility] Protocol Magnesium Oxide 400 mg 05/11/24 09:00 [...] yesterday MRI could not bedone here at [facility]. This MRI could not be scheduled before [...] of the care that Juan is receiving [facility]. Documented By: Hilda Ruiz MD 05/12/24 0923 Signed By: 05/12/24 0927 [facility]01-01-2025 Progress note Author Miladis Rodriguez [facility] Note Date/Time May 11, 2024 3: 11pm [facility] [address] [place] [address] Pulmonology Progress Note Signed Patient: Juan Simon MR#: [id number] : 1955 Acct:[id number] Age/Sex: 68 / M Adm Date: 4 Loc: 4P Room: 0T8395-4 Type: ADM IN Attending Dr: Hilda Ruiz [...] with you Documented By: Miladis Rodriguez MD 1509 Signed By: <Electronically signed by Miladis Rodriguez MD> 05/11/24 1511 [facility] Work Phone: 1(709) 160-737001-01-[address] [address] Pulmonology Progress Note Signed Patient: Juan Simon MR#: [id number] : 1955 Acct:[id number] Age/Sex: 68 / M Adm Date: 4 Loc: 4P Room: [address] [place] [address] Type: ADM IN Attending Dr: Hilda Ruiz [...] with you Documented By: Miladis Rodriguez MD 1509 Signed By: 05/11/24 1511 [facility]01-01-2025 Progress note Author Hilda Ruiz [facility] Note Date/Time May 11, 2024 8: 44am [facility] [address] [place] [address] Hospitalist Progress Note Signed Patient: Juan Simon MR#: [id number] : 1955 Acct:[id number] Age/Sex: 68 / M Adm Date: 4 Loc: 4P Room: 4H3478-9 Type: ADM IN Attending Dr: Hilda Ruiz [...] cardiology recommendation appreciated Elevated Troponin Type II FL Troponin was found incidentally to be mildly [...] mobility and ADL PT/OT has been consulted. [facility],Inpatient Rehab Unit was recommended. INTERVAL HPI:?As [...] Tablet. PO 05/06/25 08:59 81 mg DAILY EIDE Administration Budesonide/Formoterol Fumarate 2 puff 05/02/24 21:00 [...] his pneumonia and or side effect of beta-daivd for Consider reducing beta-david dose. Instead I started the patient on oral Cardizem. Try to wean down on Cardizem drip. Cardiology team does not recommend full dose anticoagulation. EF is normal Altered mental status, encephalopathy, improved since yesterday MRI could not bedone here at [facility]. This MRI could not be scheduled before [...] Hilda Ruiz MD 05/11/24 0840 Signed By: <Electronically signed by Hilda Ruiz MD> 05/11/24 5672 [facility] Work Phone: 1(821) 903-956201-01-2025 [place] [address] Hospitalist Progress Note Signed Patient: Juan Simon MR#: [id number] : 1955 Acct:[id number] Age/Sex: 68 / M Adm Date: 4 Loc: 4P Room: 5J1338-9 Type: ADM IN Attending Dr: Hilda Ruiz [...] cardiology recommendation appreciated Elevated Troponin Type II FL Troponin was found incidentally to be mildly [...] mobility and ADL PT/OT has been consulted. [facility],Inpatient Rehab Unit was recommended. INTERVAL HPI:?As [...] 05/06/24 09:00 05/11/24 08:19 Aspirin 81 Mg Tablet.Dr PO 05/06/25 08:59 [...] yesterday MRI could not bedone here at [facility]. This MRI could not be scheduled before [...] been submitted Documented By: Hilda Ruiz MD 05/11/2440 Signed By: 05/11/24 0844 [facility]12-31-2024 Progress note Author Miladis Rodriguez [facility] Note Date/Time May 10, 2024 4:33pm [facility] [address] [place] [address] Pulmonology Progress Note Signed Patient: Juan Simon MR#: [id number] : 1955 Acct:[id number] Age/Sex: 68 / M Adm Date: 4 Loc: Room: [address] [place] [address] Type: ADM IN Attending Dr: Hilda Ruiz [...] with you Documented By: Miladis Rodriguez MD 6495 Signed By: <Electronically signed by Miladis Rodriguez MD> 05/10/24 1630 [facility] Work Phone: 1(296) 279-122812-31-2024 [place] [id number] Pulmonology Progress Note Signed Patient: Juan Simon MR#: [id number] : 1955 Acct:[id number] Age/Sex: 68 / M Adm Date: 4 Loc: 4 Room: [address] [place] [address] Type: ADM IN Attending Dr: Hilda Ruiz [...] Rodriguez MD 1544 Signed By: 05/10/24 1633 [facility]12-31-2024 Progress note Author Judy Dunn [facility] Note Date/Time May 10, 2024 2:16pm [facility] [address] [place] [address] Cardiology Progress Note Signed Patient: Juan Simon MR#: [id number] : 1955 Acct:[id number] Age/Sex: 68 / M Adm Date: 4 Loc: 4P Room: [address] [place] [address] Type: ADM IN Attending Dr: Hilda Ruiz [...] % (Auto) 78.5 Lymph % (Auto) 12.1 [place] % (Auto) 7.8 Eos % (Auto) 0.7 Baso % (Auto) 0.9 Nucleat RBC Rel Count 0.0 Neut # (Auto) 12.6 H Lymph # (Auto) 1.9 [place] # (Auto) 1.2 H Eos # (Auto) [...] to aspiration. # Paroxysmal nonvalvular A-fib ? [id number] is 1. He had converted back to [...] signed by Judy Dunn MD> 05/10/24 1416 [facility] Work Phone: 1([phone]) 385-952412-31-2024 Progress note Author Hilda Ruiz [facility] Note Date/Time May 10, 2024 12:38pm [facility] [address] [place] [address] Hospitalist Progress Note Signed Patient: Juan Simon MR#: [id number] : 1955 Acct:[id number] Age/Sex: 68 / M Adm Date: 4 Loc: Room: [address] [place] [address] Type: ADM IN Attending Dr: Hilda Ruiz [...] cardiology recommendation appreciated Elevated Troponin Type II FL Troponin was found incidentally to be mildly [...] mobility and ADL PT/OT has been consulted. [facility] Unit was recommended. INTERVAL HPI:?As [...] Continue high-dose beta-david as recommended by cardiology. Customer Experience Strategist recommended to take him off anticoagulation and continue aspirin. Will follow cardiologists recommendation given their expertise. Altered mental status, encephalopathy, improved since yesterday MRI could not bedone here at [facility]. This MRI could not be scheduled before [...] signed by Hilda Ruiz MD> 05/10/24 1238 [facility] Work Phone: 1(460) 279-629012-31-2024 [place] [address] Cardiology Progress Note Signed Patient: Juan Simon MR#: [id number] : 1955 Acct:[id number] Age/Sex: 68 / M Adm Date: 4 Loc: Room: [address] [place] [address] Type: ADM IN Attending Dr: Hilda Ruiz [...] % (Auto) 78.5 Lymph % (Auto) 12.1 [place] % (Auto) 7.8 Eos % (Auto) 0.7 Baso % (Auto) 0.9 Nucleat RBC Rel Count 0.0 Neut # (Auto) 12.6 H Lymph # (Auto) 1.9 [place] # (Auto) 1.2 H Eos # (Auto) [...] to aspiration. # Paroxysmal nonvalvular A-fib ? [id number] is 1. He had converted back to [...] MD 05/10/24 1410 Signed By: 05/10/24 1416 [facility]12-31-2024 [place] [address] Hospitalist Progress Note Signed Patient: Juan Simon MR#: [id number] : 1955 Acct:[id number] Age/Sex: 68 / M Adm Date: 4 Loc: 4 Room: [address] [place] [address] Type: ADM IN Attending Dr: Hilda Ruiz [...] cardiology recommendation appreciated Elevated Troponin Type II FL Troponin was found incidentally to be mildly [...] mobility and ADL PT/OT has been consulted. [facility]hab Unit was recommended. INTERVAL HPI:?As [...] Continue high-dose beta-david as recommended by cardiology. Customer Experience Strategist recommended to take him off anticoagulation and continue aspirin. Will follow cardiologists recommendation given their expertise. Altered mental status, encephalopathy, improved since yesterday MRI could not bedone here at [facility]. This MRI could not be scheduled before [...] MD 05/10/24 1236 Signed By: 05/10/24 1238 [facility]12-31-2024 Progress note Author Jimmy Gonzalez [facility] Note Date/Time May 10, 2024 10:06am [facility] [address] [place] [address] Neurology Progress Note Signed Patient: Juan Simon MR#: [id number] : 1955 Acct:[id number] Age/Sex: 68 / M Adm Date: 4 Loc: Room: [address] [place] [address] Type: ADM IN Attending Dr: Hilda Ruiz [...] Therapy Recommendations: OT Recommendations OT Recommended Discharge [facility]patient [facility] Unit Location OT Recommended Services at Physical Therapy,Occupational Therapy Discharge PT Recommendations PT Recommended Discharge [facility] Location PT Recommended Services at Physical [...] for prevention of stroke secondary to the FOZ5ER6-HEYc score of 1 and the fact that A-fib would be secondary to sepsis. 3. Treatment of further metabolic development of infiltrates on x-ray per primary service. 3. Please call with any further questions or concerns. Neurology will sign off Documented By: Jimmy Gonzalez DO 4 0843 Signed By: <Electronically signed by Jimmy Gonzalez DO> 05/10/24 1000 [facility] Work Phone: 1(673) 614-958912-31-[address] [address] Neurology Progress Note Signed Patient: Juan Simon MR#: [id number] : 1955 Acct:[id number] Age/Sex: 68 / M Adm Date: 4 Loc: Room: [address] [place] [address] Type: ADM IN Attending Dr: Hilda Ruiz [...] Therapy Recommendations: OT Recommendations OT Recommended Discharge [facility],Inpatient [facility]hab Unit Location OT Recommended Services at Physical Therapy,Occupational Therapy Discharge PT Recommendations PT Recommended Discharge [facility] Location PT Recommended Services at Physical [...] for prevention of stroke secondary to the KVL0XI9-CJJw score of 1 and the fact that A-fib would be secondary to sepsis. 3. Treatment of further metabolic development of infiltrates on x-ray per primary service. 3. Please call with any further questions or concerns. Neurology will sign off Documented By: Jimmy Gonzalez DO 4 0843 Signed By: 05/10/24 1006 [facility]12-30-2024 Progress note Author Miladis Rodriguez [facility] Note Date/Time May 09, 2024 6:10pm [facility] [address] [place] [address] Pulmonology Progress Note Signed Patient: Juan Simon MR#: [id number] : 1955 Acct:[id number] Age/Sex: 68 / M Adm Date: 4 Loc: Room: [address] [place] [address] Type: ADM IN Attending Dr: iHlda Ruiz MD Copies to: ~ Date of [...] <Electronically signed by Miladis Rodriguez MD> 05/09/241809 [facility] Work Phone: 1(893) 369-280512-30-2024 Progress note Author Judy Mona [facility] Note Date/Time May 09, 2024 5:13pm [facility] [address] [place] [address] Cardiology Progress Note Signed Patient: Juan Simon MR#: [id number] : 1955 Acct:[id number] Age/Sex: 68 / M Adm Date: 4 Loc: Room: [address] [place] [address] Type: ADM IN Attending Dr: Hilda Ruiz [...] to aspiration. # Paroxysmal nonvalvular A-fib ? [id number] is 1. He had converted back to [...] team. Documented By: Judy Dunn MD 05/09/24 1500 Signed By: <Electronically signed by Judy Dunn MD> 05/09/24 1713 [facility] Work Phone: 1([phone]) 459-177712-30-2024 [place] [id number] Pulmonology Progress Note Signed Patient: Juan Simon MR#: [id number] : 1955 Acct:[id number] Age/Sex: 68 / M Adm Date: 4 Loc: Room: [address] [place] [address] Type: ADM IN Attending Dr: Hilda Ruiz [...] - will follow with you Documented By: Milaids Rodriguez MD 1801 Signed By: 05/09/241809 [facility]12-30-2024 [place] [address] Cardiology Progress Note Signed Patient: Juan Simon MR#: [id number] : 1955 Acct:[id number] Age/Sex: 68 / M Adm Date: 4 Loc: Room: [address] [place] [address] Type: ADM IN Attending Dr: Hilda Ruiz [...] to aspiration. # Paroxysmal nonvalvular A-fib ? [id number] is 1. He had converted back to [...] team. Documented By: Judy Dunn MD 05/09/24 1508 Signed By: 05/09/24 8533 [facility]12-30-2024 Radiology Diagnostic study note [facility] Main [place] [address] [place], [place] [address] CT Scan Report Signed Patient: Juan Simon MR#: [id number] : 1955 Acct:[id number] Age/Sex: 68 / M ADM Date: 4 Loc: 4P Room: 8F8132-8 Type: ADM IN Attending Dr: Hilda Ruiz [...] Dorothy Burkett M.D.05/09/2024 4:56 PM Dictation Location: [place] [address] Transcribed By: [facility] 05/09/241655 Dictated By: Dorothy Burkett MD 05/09/241650 Signed By: 05/09/24 [facility] Work Phone: 1(879) 494-228012-30-2024 Progress note Author Hilda Ruiz [facility] Note Date/Time May 09, 2024 1:01pm [facility] [address] [place] [address] Hospitalist Progress Note Signed Patient: Juan Simon MR#: [id number] : 1955 Acct:[id number] Age/Sex: 68 / M Adm Date: 4 Loc: 4P Room: [id number] Type: ADM IN Attending Dr: Hilda Ruiz [...] cardiology recommendation appreciated Elevated Troponin Type II FL Troponin was found incidentally to be mildly [...] mobility and ADL PT/OT has been consulted. [facility]Inpatient Rehab Unit was recommended. INTERVAL HPI:?As [...] 05/06/24 09:00 05/09/24 08:35 Aspirin 81 Mg Tablet.Dr PO 05/06/25 08:59 81 mg DAILY EDIE Administration Budesonide/Formoterol Fumarate 2 puff 05/02/24 21:00 05/09/24 07:45 Budesonide/Formoterol 160-4.5 Mcg 60 Puff/6 Gm Hfa.Aer.Ad INHALATION 05/02/25 20:59 2 puff BID EDIE Administration Duloxetine HCl 30 mg 05/02/24 21:00 05/09/24 08:35 Duloxetine 30 Mg Capsule.Dr PO 05/02/25 20:59 [...] Continue high-dose beta-david as recommended by cardiology. Customer Experience Strategist recommended to take him off anticoagulation and [...] <Electronically signed by Hilda Ruiz MD> 05/09/24 1301 [facility] Work Phone: [phone] [place] [address] Hospitalist Progress Note Signed Patient: Juan Simon MR#: [id number] : 1955 Acct:[id number] Age/Sex: 68 / M Adm Date: 4 Loc: Room: [address] [place] [address] Type: ADM IN Attending Dr: Hilda Ruiz [...] cardiology recommendation appreciated Elevated Troponin Type II FL Troponin was found incidentally to be mildly [...] mobility and ADL PT/OT has been consulted. [facility]Inpatient Rehab Unit was recommended. INTERVAL HPI:?As [...] 05/06/24 09:00 05/09/24 08:35 Aspirin 81 Mg Tablet.Dr PO 05/06/25 08:59 81 mg DAILY EDIE Administration Budesonide/Formoterol Fumarate 2 puff 05/02/24 21:00 05/09/24 07:45 Budesonide/Formoterol 160-4.5 Mcg 60 Puff/6 Gm Hfa.Aer.Ad INHALATION 05/02/25 20:59 2 puff BID EDIE Administration Duloxetine HCl 30 mg 05/02/24 21:00 05/09/24 08:35 Duloxetine 30 Mg Capsule.Dr PO 05/02/25 20:59 [...] Continue high-dose beta-david as recommended by cardiology. Customer Experience Strategist recommended to take him off anticoagulation and [...] MD 05/09/24 1257 Signed By: 05/09/24 1301 [facility]12-30-2024 Progress note Author Jimmy Gonzalez [facility] Note Date/Time May 09, 2024 9:38am [facility] [address] [place] [address] Neurology Progress Note Signed Patient: Juan Simon MR#: [id number] : 1955 Acct:[id number] Age/Sex: 68 / M Adm Date: 4 Loc: 4 Room: [address] [place] [address] Type: ADM IN Attending Dr: Hilda Ruiz [...] Therapy Recommendations: OT Recommendations OT Recommended Discharge [facility],Inpatient Rehab Unit Location OT Recommended Services at Physical Therapy,Occupational Therapy Discharge PT Recommendations PT Recommended Discharge [facility],Inpatient Rehab Unit Location PT Recommended Services [...] for prevention of stroke secondary to the DYB2HF7-DFAh score of 1 and the fact that A-fib would be secondary to sepsis. 3. Treatment of further metabolic development of infiltrates on x-ray per primary service. 3. Will follow Documented By: Jimmy Gonzalez DO 4 0824 Signed By: <Electronically signed by Jimmy Gonzalez DO> 05/09/24 0938 [facility] Work Phone: 1(310) [phone] [place] [address] Neurology Progress Note Signed Patient: Juan Simon MR#: [id number] : 1955 Acct:[id number] Age/Sex: 68 / M Adm Date: 4 Loc: Room: [address] [place] [address] Type: ADM IN Attending Dr: Hilda Ruiz [...] Therapy Recommendations: OT Recommendations OT Recommended Discharge [facility],Inpatient Rehab Unit Location OT Recommended Services at Physical Therapy,Occupational Therapy Discharge PT Recommendations PT Recommended Discharge [facility],Inpatient Rehab Unit Location PT Recommended Services [...] for prevention of stroke secondary to the LZA6FH7-TAZy score of 1 and the fact that A-fib would be secondary to sepsis. 3. Treatment of further metabolic development of infiltrates on x-ray per primary service. 3. Will follow Documented By: Jimmy Gonzalez DO 4 0824 Signed By: 05/09/24 0938 [facility]12-30-2024 Progress note Author Skyler Sanchez [facility] Note Date/Time May 09, 2024 1:06am [facility] [address] [place] [address] Hospitalist Progress Note Signed Patient: Juan Simon MR#: [id number] : 1955 Acct:[id number] Age/Sex: 68 / M Adm Date: 4 Loc: Room: 5K4263-6 Type: ADM IN Attending Dr: Skyler Sanchez [...] cardiology recommendation appreciated Elevated Troponin Type II FL Troponin was found incidentally to be mildly [...] mobility and ADL PT/OT has been consulted. [facility]Inpatient Rehab Unit was recommended. INTERVAL HPI:?As [...] Skyler Sanchez MD 05/08/24 175 Signed By: <Electronically signed by Skyler Sanchez MD> 05/09/24 0106 [facility] Work Phone: 1([phone]) 805-668012-30-2024 [place] [id number] Hospitalist Progress Note Signed Patient: Juan Simon MR#: [id number] : 1955 Acct:[id number] Age/Sex: 68 / M Adm Date: 4 Loc: Room: [address] [place] [address] Type: ADM IN Attending Dr: Skyler Sanchez [...] cardiology recommendation appreciated Elevated Troponin Type II FL Troponin was found incidentally to be mildly [...] mobility and ADL PT/OT has been consulted. [facility]Inpatient Rehab Unit was recommended. INTERVAL HPI:?As [...] response: Plan Documented By: Skyler Sanchez MD 05/08/241755 Signed By: 05/09/24 0106 [facility]12-29-2024 Progress note Author Lisa Epps [facility] Note Date/Time May 08, 2024 4:39pm [facility] [address] [place] [address] Cardiology Progress Note Signed Patient: Juan Simon MR#: [id number] : 1955 Acct:[id number] Age/Sex: 68 / M Adm Date: 4 Loc: 4 Room: 5W0816-7 Type: ADM IN Attending Dr: Skyler Sanchez [...] to aspiration. # Paroxysmal nonvalvular A-fib ? [id number]-[id number] is 1. He had converted back to [...] prophylaxis with aspirin is acceptable given his KJN9AX0-CGMb of one. -Continue treatment of pneumonia per primary team. Documented By: Lisa Epps MD 04/11 Signed By: <Electronically signed by Lisa Epps MD> 05/08/24 1639 [facility] Work Phone: 1(441) 610-204512-29-2024 Radiology Diagnostic study [facility] [place] [address] [place] [address] CT Scan Report Signed Patient: Juan Simon MR#: [id number] : 1955 Acct:[id number] Age/Sex: 68 / M ADM Date: 4 Loc: Room: [address] [place] [address] Type: ADM IN Attending Dr: Skyler Sanchez [...] Cliff Acuna M.D.05/08/2024 4:44 PM Dictation Location: [place] [address] Transcribed By: [facility] 05/08/24 1644 Dictated By: Cliff Acuna DO 05/08/24 1635 Signed By: 05/08/24 1644 [facility]12-29-2024 [place] [address] Cardiology Progress Note Signed Patient: Juan Simon MR#: [id number] : 1955 Acct:[id number] Age/Sex: 68 / M Adm Date: 4 Loc: 4 Room: [address] [place] [address] Type: ADM IN Attending Dr: Skyler Sanchez [...] to aspiration. # Paroxysmal nonvalvular A-fib ? [id number]-DSIl is 1. He had converted back to [...] prophylaxis with aspirin is acceptable given his PLF8DL3-FSVt of one. -Continue treatment of pneumonia per primary team. Documented By: Lisa Epps MD 04/11 Signed By: 05/08/24 1639 [facility]12-29-2024 Radiology Diagnostic study note [facility] Main [place] [address] [place] [address] CT Scan Report Signed Patient: Juan Simon MR#: [id number] : 1955 Acct:[id number] Age/Sex: 68 / M ADM Date: 4 Loc: Room: [address] [place] [address] Type: ADM IN Attending Dr: Skyler Sanchez [...] Cliff Acuna M.D.05/08/2024 4:35 PM Dictation Location: [facility] Transcribed By: [facility] 05/08/24 1635 Dictated By: Cliff Acuna DO 05/08/24 1630 Signed By: 05/08/24 1635 [facility]12-29-2024 Progress note Author Jimmy Gonzalez [facility] Note Date/Time May 08, 2024 12:20pm [facility] [address] [place] [address] Neurology Progress Note Signed Patient: Juan Simon MR#: [id number] : 1955 Acct:[id number] Age/Sex: 68 / M Adm Date: 4 Loc: Room: [address] [place] [address] Type: ADM IN Attending Dr: Skyler Sanchez [...] Therapy Recommendations: OT Recommendations OT Recommended Discharge [facility],Inpatient Rehab Unit Location OT Recommended Services at Physical Therapy,Occupational Therapy Discharge PT Recommendations PT Recommended Discharge [facility],Inpatient Rehab Unit Location PT Recommended Services [...] signed by Jimmy Gonzalez DO> 05/08/24 1220 [facility] Work Phone: 1([phone]) 429-717212-29-2024 [place] [id number] Neurology Progress Note Signed Patient: Juan Simon MR#: [id number] : 1955 Acct:[id number] Age/Sex: 68 / M Adm Date: 4 Loc: 4P Room: 1D8239-0 Type: ADM IN Attending Dr: Skyler Sanchez [...] Therapy Recommendations: OT Recommendations OT Recommended Discharge [facility],Inpatient Rehab Unit Location OT Recommended Services at Physical Therapy,Occupational Therapy Discharge PT Recommendations PT Recommended Discharge [facility],Inpatient Rehab Unit Location PT Recommended Services [...] Gonzalez DO 4 1047 Signed By: 05/08/24 [facility]12-29-2024 Progress note Author Alvin Crisostomo [facility] Note Date/Time May 08, 2024 4:46am [facility] [address] [place] [address] Event Note Signed with Addenda Patient: Juan Simon MR#: [id number] : 1955 Acct:[id number] Age/Sex: 68 / M Adm Date: 4 Loc: 3T Room: [address] [place] [address] Type: ADM IN Attending Dr: Skyler Sanchez [...] By: <Electronically signed by Alvin Crisostomo MD> 05/08/246 Status Event Note Event Note DATE OF [...] Alvin Crisostomo MD 05/08/24 0336 Signed By: <Electronically signed by Alvin Crisostomo MD> 05/08/24 0340 [facility] Work Phone: 1([phone]) [phone] [address] Event Note Signed with Addenda Patient: Juan Simon MR#: [id number] : 1955 Acct:[id number] Age/Sex: 68 / M Adm Date: 4 Loc: 3T Room: 2T6197-6 Type: ADM IN Attending Dr: Skyler Sanchez [...] Crisostomo MD 05/08/24 0336 Signed By: 05/08/24 034 [facility]12-29-2024 Progress note Author Skyler Sanchez [facility] Note Date/Time May 08, 2024 12:05am [facility] [address] [place] [address] Hospitalist Progress Note Signed Patient: Juan Simon MR#: [id number] : 1955 Acct:[id number] Age/Sex: 68 / M Adm Date: 4 Loc: 3T Room: [address] [place] [address] Type: ADM IN Attending Dr: Skyler Sanchez [...] cardiology for reeval Elevated Troponin Type II FL Troponin was found incidentally to be mildly [...] mobility and ADL PT/OT has been consulted. [facility]Inpatient Rehab Unit was recommended. INTERVAL HPI:?As [...] 09:00 05/07/24 08:10 Aspirin 81 Mg Tablet.Dr PO 05/06/25 08:59 [...] response: Plan Documented By: Skyler Sanchez MD 05/07/241127 Signed By: <Electronically signed by Skyler Sanchez MD> 05/08/24 0005 [facility] Work Phone: 1(963) 413-544612-29-2024 [place] [address] Hospitalist Progress Note Signed Patient: Juan Simon MR#: [id number] : 1955 Acct:[id number] Age/Sex: 68 / M Adm Date: 4 Loc: Room: [address] [place] [address] Type: ADM IN Attending Dr: Skyler Sanchez [...] cardiology for reeval Elevated Troponin Type II FL Troponin was found incidentally to be mildly [...] mobility and ADL PT/OT has been consulted. [facility]Inpatient Rehab Unit was recommended. INTERVAL HPI:?As [...] MD 05/07/24 1128 Signed By: 05/08/24 0005 [facility]12-28-2024 Progress note Author Jimmy Gonzalez [facility] Note Date/Time May 07, 2024 3:36pm [facility] [address] [place] [address] Neurology Progress Note Signed Patient: Juan Simon MR#: [id number] : 1955 Acct:[id number] Age/Sex: 68 / M Adm Date: 4 Loc: Room: [address] [place] [address] Type: ADM IN Attending Dr: Skyler Sanchez [...] Therapy Recommendations: OT Recommendations OT Recommended Discharge [facility],Inpatient [facility]hab Unit Location OT Recommended Services at Physical Therapy,Occupational Therapy Discharge PT Recommendations PT Recommended Discharge [facility],Inpatient Rehab Unit Location PT Recommended Services [...] 1219 Signed By: <Electronically signed by Jimmy Gonzalez DO> 05/07/24 1536 [facility] Work Phone: 1(770) [phone] [place] [address] Neurology Progress Note Signed Patient: Juan Simon MR#: [id number] : 1955 Acct:[id number] Age/Sex: 68 / M Adm Date: 4 Loc: 3T Room: [address] [place] [address] Type: ADM IN Attending Dr: Skyler Sanchez [...] Therapy Recommendations: OT Recommendations OT Recommended Discharge [facility],Inpatient Rehab Unit Location OT Recommended Services at Physical Therapy,Occupational Therapy Discharge PT Recommendations PT Recommended Discharge [facility],Inpatient Rehab Unit Location PT Recommended Services [...] DO 4 1219 Signed By: 05/07/24 1536 [facility]12-28-2024 Progress note Author Skyler Sanchez [facility] Note Date/Time May 06, 2024 11:53pm [facility] [address] [place] [address] Hospitalist Progress Note Signed Patient: Juan Simon MR#: [id number] : 1955 Acct:[id number] Age/Sex: 68 / M Adm Date: 4 Loc: 3T Room: [address] [place] [address] Type: ADM IN Attending Dr: Skyler Sanchez [...] Digoxin and Eliquis Elevated Troponin Type II FL Troponin was found incidentally to be mildly [...] mobility and ADL PT/OT has been consulted. [facility]Inpatient Rehab Unit was recommended. INTERVAL HPI:?As [...] Plan Documented By: Skyler Sanchez MD 05/06/24 6637 Signed By: <Electronically signed by Skyler Sanchez MD> 05/06/24 8641 [facility] Work Phone: 1(549) [phone] [place] [address] Hospitalist Progress Note Signed Patient: Juan Simon MR#: [id number] : 1955 Acct:[id number] Age/Sex: 68 / M Adm Date: 4 Loc: 3T Room: [address] [place] [address] Type: ADM IN Attending Dr: Skyler Sanchez [...] Digoxin and Eliquis Elevated Troponin Type II FL Troponin was found incidentally to be mildly [...] mobility and ADL PT/OT has been consulted. [facility]Inpatient Rehab Unit was recommended. INTERVAL HPI:?As [...] Skyler Sanchez MD 05/06/24 1722 Signed By: 05/06/24 2353 [facility]12-27-2024 Progress note Author Moris Younger [facility] Note Date/Time May 06, 2024 1:44pm [facility] [address] [place] [address] Infect. Disease Progress Note Signed Patient: Juan Simon MR#: [id number] : 1955 Acct:[id number] Age/Sex: 68 / M Adm Date: 4 Loc: Room: [address] [place] [address] Type: ADM IN Attending Dr: Skyler Sanchez [...] treatment of two weeks. Documented By: Moris oYunger MD 05/06/24 1339 Signed By: <Electronically signed by MD Moris Younger> 05/06/24 1344 [facility] Work Phone: 1(242) [phone] Progress note Author Jesus Fraser [facility] Note Date/Time May 06, 2024 1:28pm [facility] [address] [place] [address] Neurology Progress Note Signed Patient: Juan Simon MR#: [id number] : 1955 Acct:[id number] Age/Sex: 68 / M Adm Date: 4 Loc: Room: [address] [place] [address] Type: ADM IN Attending Dr: Skyler Sanchez [...] Therapy Recommendations: OT Recommendations OT Recommended Discharge [facility],Inpatient Rehab Unit Location OT Recommended Services at Physical Therapy,Occupational Therapy Discharge PT Recommendations PT Recommended Discharge [facility],Inpatient Rehab Unit Location PT Recommended Services at Physical Therapy,Occupational Therapy Discharge Assessment/Plan (1) Altered mental status: Qualifiers: Altered mental status type: delirium Qualified Code(s): R41.0 - Disorientation, unspecified Plan CONSULT REASON: AMS INTERIM: Remains delirious. Still fidgety and restless. Still can be disoriented. Not seeing his many rup-pir-flcn things today. His daughter in the room [...] signed by Jesus Fraser DO> 05/06/24 1328 [facility] Work Phone: 1([phone]) 123-332112-27-2024 [place] [address] Infect. Disease Progress Note Signed Patient: Juan Simon MR#: [id number] : 1955 Acct:[id number] Age/Sex: 68 / M Adm Date: 4 Loc: 3T Room: [address] [place] [address] Type: ADM IN Attending Dr: Skyler Sanchez MD Copies to: ~ Date of Service: 05/06/2024 Subjective Interval history: Patient sitting in a recliner. Denies physical complaints. Mentation marcus had mentioned that he wasat some sort [...] 81 Mg Tablet.) 81 mg PO [facility]ILY [facility] Stop: 05/06/25 08:59 Last Admin: 05/06/24 08:14 [...] MD 05/06/24 1339 Signed By: 05/06/24 1344 [facility]12-27-2024 [place] [address] Neurology Progress Note Signed Patient: Juan Simon MR#: [id number] : 1955 Acct:[id number] Age/Sex: 68 / M Adm Date: 4 Loc: Room: [address] [place] [address] Type: ADM IN Attending Dr: Skyler Sanchez [...] Cannula Oxygen Flow Rate 2 2 2 12/26/24 20:31 05/05/24 23:24 05/06/24 00:00 Temperature 98.2 [...] Therapy Recommendations: OT Recommendations OT Recommended Discharge [facility]patient [facility] Unit Location OT Recommended Services at Physical Therapy,Occupational Therapy Discharge PT Recommendations PT Recommended Discharge [facility] Location PT Recommended Services at Physical Therapy,Occupational Therapy Discharge Assessment/Plan (1) Altered mental status: Qualifiers: Altered mental status type: delirium Qualified Code(s): R41.0 - Disorientation, unspecified Plan CONSULT REASON: AMS INTERIM: Remains delirious. Still fidgety and restless. Still can be disoriented. Not seeing his many qwr-mjv-vtyl things today. His daughter in the room [...] Jesus Fraser DO 05/06/24 1326 Signed By: 05/06/24 1328 [facility]12-27-2024 Progress note Author Skyler Sanchez [facility] Note Date/Time May 05, 2024 11:27pm [facility] [address] [place] [address] Hospitalist Progress Note Signed Patient: Juan Simon MR#: [id number] : 1955 Acct:[id number] Age/Sex: 68 / M Adm Date: 4 Loc: Room: [address] [place] [address] Type: ADM IN Attending Dr: Skyler Sanchez [...] Digoxin and Eliquis Elevated Troponin Type II FL Troponin was found incidentally to be mildly [...] mobility and ADL PT/OT has been consulted. [facility] Unit was recommended. INTERVAL HPI:?As [...] response: Plan Documented By: Skyler Sanchez MD 05/05/24 6434 Signed By: <Electronically signed by Skyler Sanchez MD> 05/05/24 7911 [facility] Work Phone: 1([phone]) [phone] [place] [id number] Hospitalist Progress Note Signed Patient: Juan Simon MR#: [id number] : 1955 Acct:[id number] Age/Sex: 68 / M Adm Date: 4 Loc: Room: [address] [place] [address] Type: ADM IN Attending Dr: Skyler Sanchez [...] Digoxin and Eliquis Elevated Troponin Type II FL Troponin was found incidentally to be mildly [...] mobility and ADL PT/OT has been consulted. [facility] Unit was recommended. INTERVAL HPI:?As [...] Sanchez MD 05/05/241826 Signed By: 05/05/24 2327 [facility]12-26-2024 Progress note Author Jesus Fraser [facility] Note Date/Time May 05, 2024 2:09pm [facility] [address] [place] [address] Neurology Progress Note Signed Patient: Juan Simon MR#: [id number] : 1955 Acct:[id number] Age/Sex: 68 / M Adm Date: 4 Loc: Room: [address] [place] [address] Type: ADM IN Attending Dr: Skyler Sanchez [...] Therapy Recommendations: PT Recommendations PT Recommended Discharge [facility]patient [facility] Unit Location PT Recommended Services [...] Patient is slightly drowsy. Not oriented to [facility] or month or year, says it is [...] Jesus Fraser DO 05/05/24 1406 Signed By: <Electronically signed by Jesus Fraser DO> 05/05/24 1409 [facility] Work Phone: 1([phone]) 859-914912-26-2024 Progress note Author Moris Younger [facility] Note Date/Time May 05, 2024 12:37pm [facility] [address] [place] [address] Infect. Disease Progress Note Signed Patient: Juan Simon MR#: [id number] : 1955 Acct:[id number] Age/Sex: 68 / M Adm Date: 4 Loc: Room: [address] [place] [address] Type: ADM IN Attending Dr: Skyler Sanchez [...] 81 Mg Tablet.) 81 mg PO DAILY [facility] Stop: 05/06/25 08:59 Budesonide/Formoterol Fumarate (Budesonide/Formoterol 160-4.5 Mcg 60 Puff/6 Gm Hfa.Aer.Ad) 2 puff INHALATION BID [facility] Stop: 05/02/25 20:59 Last Admin: 05/05/24 04:14 Dose: 2 puff Ceftriaxone Sodium (Ceftriaxone 2 Gm/20 Ml Syringe) 2 gm IV-PUSH DAILY@1100 [facility] Stop: 05/16/24 11:01 Last Admin: 05/05/24 11:41 Dose: 2 gm Duloxetine HCl (Duloxetine 30 Mg Capsule.) 30 mg PO BID [facility] Stop: 05/02/25 20:59 Last Admin: 05/05/24 08:15 [...] <Electronically signed by MD Moris Younger> 05/05/24 [facility] Work Phone: 1(335) 622-857812-26-2024 [place] [id number] Neurology Progress Note Signed Patient: Juan Simon MR#: [id number] : 1955 Acct:[id number] Age/Sex: 68 / M Adm Date: 4 Loc: 3T Room: [address] [place] [address] Type: ADM IN Attending Dr: Skyler Sanchez [...] Therapy Recommendations: PT Recommendations PT Recommended Discharge [facility]patient [facility]hab Unit Location PT Recommended Services [...] Patient is slightly drowsy. Not oriented to [facility] or month or year, says it is [...] DO 05/05/24 1406 Signed By: 05/05/24 1409 [facility]12-26-2024 Progress note Author Juanito Solis [facility] Note Date/Time May 05, 2024 10:48am [facility] [address] [place], [place] [id number] Cardiology Progress Note Signed Patient: Juan Simon MR#: [id number] : 1955 Acct:[id number] Age/Sex: 68 / M Adm Date: 12/24/2 4 Loc: 3T Room: 2J4070-7 Type: ADM IN Attending Dr: Skyler Sanchez [...] his family. Documented By: Juanito Solis MD 05/05/241042 Signed By: <Electronically signed by Juanito Solis MD> 05/05/248 [facility] Work Phone: [phone] 404-450112-26-2024 [place] [address] Infect. Disease Progress Note Signed Patient: Juan Simon MR#: [id number] : 1955 Acct:[id number] Age/Sex: 68 / M Adm Date: 4 Loc: Room: [address] [place] [address] Type: ADM IN Attending Dr: Skyler Sanchez [...] 81 Mg Tablet.) 81 mg PO [facility]ILY [facility] Stop: 05/06/25 08:59 Budesonide/Formoterol Fumarate (Budesonide/Formoterol 160-4.5 Mcg 60 Puff/6 Gm Hfa.Aer.Ad) 2 puff INHALATION BID [facility] Stop: 05/02/25 20:59 Last Admin: 05/05/24 04:14 Dose: 2 puff Ceftriaxone Sodium (Ceftriaxone 2 Gm/20 Ml Syringe) 2 gm IV-PUSH DAILY@1100 [facility] Stop: 05/16/24 11:01 Last Admin: 05/05/24 11:41 [...] MD 05/05/24 1232 Signed By: 05/05/24 1237 [facility]12-26-2024 [place] [address] Cardiology Progress Note Signed Patient: Juan Simon MR#: [id number] : 1955 Acct:[id number] Age/Sex: 68 / M Adm Date: 4 Loc: 3T Room: [address] [place] [address] Type: ADM IN Attending Dr: Skyler Sanchez [...] his family. Documented By: Juanito Solis MD 05/05/241042 Signed By: 05/05/24 1048 [facility]12-26-2024 Progress note Author Skyler Sanchez [facility] Note Date/Time May 04, 2024 10:47pm [facility] [address] [place] [address] Hospitalist Progress Note Signed Patient: Juan Simon MR#: [id number] : 1955 Acct:[id number] Age/Sex: 68 / M Adm Date: 4 Loc: 3T Room: [address] [place] [address] Type: ADM IN Attending Dr: Skyler Sanchez [...] Cardiology recommendation appreciated Elevated Troponin Type II FL Troponin was found incidentally to be mildly [...] Skyler Sanchez MD 05/04/24 1311 Signed By: <Electronically signed by Skyler Sanchez MD> 05/04/24 2245 [facility] Work Phone: [phone] [place] [address] Hospitalist Progress Note Signed Patient: Juan Simon MR#: [id number] : 1955 Acct:[id number] Age/Sex: 68 / M Adm Date: 4 Loc: Room: [address] [place] [address] Type: ADM IN Attending Dr: Skyler Sanchez [...] Cardiology recommendation appreciated Elevated Troponin Type II FL Troponin was found incidentally to be mildly [...] MD 05/04/24 1311 Signed By: 05/04/24 2247 [facility]12-25-2024 Progress note Author Jesus Fraser [facility] Note Date/Time May 04, 2024 5:01pm [facility] [address] [place], [place] [id number] Neurology Progress Note Signed Patient: Juan Simon MR#: [id number] : 1955 Acct:[id number] Age/Sex: 68 / M Adm Date: 4 Loc: Room: [address] [place] [address] Type: ADM IN Attending Dr: Skyler Sanchez [...] Rate 95 96 93 Respiratory Rate 24 Blood Pressure 110/68 118/68 02 Sat [...] normal. Patient is slightly drowsy. Oriented to [facility] and 2023 but thinks it is May. [...] <Electronically signed by Jesus Fraser DO> 05/04/24 1703 [facility] Work Phone: [phone]) 404-336912-25-2024 [place] [address] Neurology Progress Note Signed Patient: Juan Simon MR#: [id number] : 1955 Acct:[id number] Age/Sex: 68 / M Adm Date: 4 Loc: Room: 4P8458-3 Type: ADM IN Attending Dr: Skyler Sanchez [...] Rate 95 96 93 Respiratory Rate 24 Blood Pressure 110/68 118/68 02 Sat by Pulse Oximetry 99 96 Oxygen Delivery Method Nasal Cannula Nasal Cannula Oxygen Flow Rate 3 3 05/04/24 04:00 05/04/24 05:00 05/04/24 06:00 Temperature 97.5 F L Pulse Rate 87 98 92 Respiratory Rate 24 Blood Pressure 112/64 97/63 L 98/67 [...] normal. Patient is slightly drowsy. Oriented to [facility] and 2023 but thinks it is May. [...] Fraser DO 05/04/241656 Signed By: 05/04/24 1701 [facility]12-25-2024 Progress note Author Juanito Solis [facility] Note Date/Time May 04, 2024 10:57am [facility] [address] [place] [address] Cardiology Progress Note Signed Patient: Juan Simon MR#: [id number] : 1955 Acct:[id number] Age/Sex: 68 / M Adm Date: 4 Loc: Room: [address] [place] [address] Type: ADM IN Attending Dr: Skyler Sanchez [...] By: <Electronically signed by Juanito Solis MD> 05/04/24 [facility] Work Phone: [phone] Progress note Author Jimmy Matias [facility] Note Date/Time May 04, 2024 9:32am [facility] [address] [place] [address] Pulmonology Progress Note Signed Patient: Juan Simon MR#: [id number] : 1955 Acct:[id number] Age/Sex: 68 / M Adm Date: 4 Loc: Room: [address] [place] [address] Type: ADM IN Attending Dr: Skyler Sanchez [...] g daily after discussion with infectious disease clinical services consultant * He is oriented to person and place but does not know year readily * Continue antibiotics and supportive care with follow-up blood cultures pending Documented By: Jimmy Matias MD 4 0923 Signed By: <Electronically signed by MD Jimmy Matias> 05/04/24 0932 [facility] Work Phone: [phone] 934-903712-25-2024 [place] [address] Cardiology Progress Note Signed Patient: Juan Simon MR#: [id number] : 1955 Acct:[id number] Age/Sex: 68 / M Adm Date: 4 Loc: Room: [address] [place] [address] Type: ADM IN Attending Dr: Skyler Sanchez [...] Juanito Solis MD 05/04/241054 Signed By: 05/04/24 1057 [facility]12-25-2024 [place] [address] Pulmonology Progress Note Signed Patient: Juan Simon MR#: [id number] : 1955 Acct:[id number] Age/Sex: 68 / M Adm Date: 4 Loc: Room: [address] [place] [address] Type: ADM IN Attending Dr: Skyler Sanchez [...] g daily after discussion with infectious disease clinical services consultant * He is oriented to person and place but does not know year readily * Continue antibiotics and supportive care with follow-up blood cultures pending Documented By: Jimmy Matias MD 4 0923 Signed By: 05/04/24 0932 [facility]12-24-2024 Consult note Author Jesus Fraser [facility] Note Date/Time May 03, 2024 6:13pm [facility] [address] [place] [address] Neurology Consult Note Signed Patient: Juan Simon MR#: [id number] : 1955 Acct:[id number] Age/Sex: 68 / M Adm Date: 4 Loc: Room: [address] [place] [address] Type: ADM IN Attending Dr: Skyler Sanchez MD Copies to: DO Tatiana Newton Jr, DO Marwan Wassouf, MD~ HPI Consult Date: 05/03/24 Extended Day Teacher: Jesus Fraser DO [facility] Medical History Back pain with [...] Xander Solano M.D.05/02/2024 2:25 PM Dictation Location: [facility] 05/02/24 10:20 IMPRESSION: NO ACUTE INTRACRANIAL ABNORMALITY. CONTINUED CHRONIC RIGHT MASTOIDITIS AND POSSIBLE OTITIS. Impression dictated by: Dorothy Burkett M.D.05/02/2024 2:42 PM Dictation Location: [facility]23 Chest X-Ray 05/02/24 15:18 IMPRESSION: RIGHT-SIDED IJ LINE TIP AT THE BRACHIOCEPHALIC/SVC JUNCTION. NO PNEUMOTHORAX. Impression dictated by: Triston Raphael Jr., D.O.05/02/2024 3:33 PM Dictation Location: [facility]--18 Assessment/Plan (1) Altered mental status: Qualifiers: Altered [...] in March 2024 he was evaluated at [facility] by Dr. Jimmy Castle from neurology for [...] normal. Patient is slightly drowsy. Oriented to [facility] and [facility] but thinks it is 2004and then 2018. [...] <Electronically signed by Jesus Fraser DO> 05/03/24 2080 [facility] Work Phone: 1([phone] 480-203612-24-2024 Radiology [facility] Main [place] [address] [place] [address] Scan Report Signed Patient: Juan Simon MR#: [id number] : 1955 Acct:[id number] Age/Sex: 68 / M ADM Date: 4 Loc: Room: [address] [place] [address] Type: ADM IN Attending Dr: Skyler Sanchez [...] nephrolithiasis. Impression dictated by: Triston Raphael Jr., Maxx05/03/2024 6:32 PM Dictation Location: [facility] Transcribed By: [facility] 05/03/241831 Dictated By: Triston Raphael Jr, DO 05/03/241830 Signed By: 05/03/241831 [facility]12-24-[address] [address] Neurology Consult Note Signed Patient: Juan Simon MR#: [id number] : 1955 Acct:[id number] Age/Sex: 68 / M Adm Date: 4 Loc: Room: [address] [place] [address] Type: ADM IN Attending Dr: Skyler Sanchez MD Copies to: DO Tatiana Newton Jr, DO Skyler Sanchez MD~ HPI Consult Date: 05/03/24 Extended Day Teacher: Jesus Fraser DO [facility] Medical History Back pain with [...] Xander Solano M.D.05/02/2024 2:25 PM Dictation Location: [place] [address] 05/02/24 10:20 IMPRESSION: NO ACUTE INTRACRANIAL ABNORMALITY. CONTINUED CHRONIC RIGHT MASTOIDITIS AND POSSIBLE OTITIS. Impression dictated by: Dorothy Burkett M.D.05/02/2024 2:42 PM Dictation Location: [place] [address] Chest X-Ray 05/02/24 15:18 IMPRESSION: RIGHT-SIDED IJ LINE TIP AT THE BRACHIOCEPHALIC/SVC JUNCTION. NO PNEUMOTHORAX. Impression dictated by: Triston Raphael Jr., D.O.05/02/2024 3:33 PM Dictation Location: [facility] Assessment/Plan (1) Altered mental status: Qualifiers: Altered [...] does not see him all the time andluis armando has noticed that this time around his speech seems noticeably worse than it was before. I guessin March 2024 he was evaluated at [facility] by Dr. Jimmy Castle from neurology forfrequent falls, headaches, tremor, and memory loss, and was found to have mild cognitive impairment. Frequent falls were attributed to suspected orthostatic hypotension among other reasons. He has been having a cough. He has been complaining of a headache. He has headaches chronically. Jenifferhas followed with Dr. Dahl in the outpatient setting for sleep purposes and headache purposes. EXAMINATION: In no distress. No deformities or trauma. Limbs seem well-perfused. No significant edema. Normal work of breathing. Visualized skin is generally intact and without lesions. Affect normal. Patient is slightly drowsy. Oriented to [facility] and [facility] but thinks it is 2018. Attention normal. I think speech is [...] DO 05/03/24 1608 Signed By: 05/03/24 1813 [facility]12-24-2024 Consult note Author Juanito Solis [facility] Note Date/Time May 03, 2024 1:27pm [facility] [address] [place] [address] Cardiology Consult Note Signed Patient: Juan Simon MR#: [id number] : 1955 Acct:[id number] Age/Sex: 68 / M Adm Date: 4 Loc: Room: [address] [place] [address] Type: ADM IN Attending Dr: Skyler Sanchez [...] negative unless noted below or in HPI [facility] Medical History Back pain with [...] 100 ml @ 25 mls/hr IV Q8H [facility] Rx#:[id number] Oral 120 / 120 100 / 100 [...] family. Documented By: Juanito Solis MD 05/03/24 1309 Signed By: <Electronically signed by Juanito Solis MD> 05/03/24 2031 [facility] Work Phone: 1([phone] 100-120112-24-2024 Consult note Author Moris Younger [facility] Note Date/Time May 03, 2024 1:01pm [facility] [address] [place] [address] Infect. Disease Consult Note Signed Patient: Juan Simon MR#: [id number] : 1955 Acct:[id number] Age/Sex: 68 / M Adm Date: 4 Loc: Room: [address] [place] [address] Type: ADM IN Attending Dr: Skyler Sanchez [...] negative unless noted below or in HPI [facility] Medical History Back pain with [...] Puff/6 Gm Hfa.Aer.Ad) 2 puff INHALATION BID [facility] Stop: 05/02/25 20:59 Last Admin: 05/03/24 09:30 Dose: 2 puff Ceftriaxone Sodium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 Specialty Diagnoses / Procedures Referred By Gordon t Referred To Contact Physical Therapy Diagnoses Recurrent falls Lumbar back pain with radiculopathy affecting right lower extremity Weakness of right lower extremity Procedures [facility]UTES Koki Basilio, PA [address] [place] [address] Noa Garcia, PT [address] [place] [address] Referral ID Status Reason Start Date Expiration Date Visits Requested Visits Authorized [id number] Pending Review Specialty Services Required 01/12/2024 07/10/2024 [...] 03, 2024 Jimmy Matias MD Attending Pr ovider, Other Provider Active Start: May 03, 2024 Team Status: Inactive Member Role Status Dates Ambika Benson DO Primary Care Provider Active Start: May 03, 2024 End: May 23, 2024 Ralf White DO Emergency Provider Active Start: May 03, 2024 End: May 23, 2024 Thao Marcus DO RES Active St [...] May 10, 2024 Miladis Rodriguez MD Attending Pr ovider, Other Provider Active Start: May 10, 2024 Team Status: Active Member Role Status Dates Ambika Benson DO Primary Care Provider Active Start: May 17, 2024 aRlf White DO Emergency Provider Active Start: May [...] Active Start: May 18, 2024 Ralf White , Emergency Provider Active Start: May 18, 2024 Thao Marcus , RES Active St art: May 18, 2024 Skyler Sanchez MD Admit Provider Active Start: May 18, 2024 Moris Younger MD Other Provider Active Start: May 18, 2024 Jesus Fraser DO Other Provider Active Start: May 18, 2024 Jimmy Gonzalez DO Other Provider Active Start: May 18, 2024 Miladis Rodriguez MD Other Provider Active Start: May 18, 2024 Shira Nath MD Other Provider Active Sta rt: May 18, 2024 Jesus Ribeiro DO FELLOW Other Provider Active S tart: May 18, 2024 Victor M Chaudhry DO Attending Provider Active St art: May 18, 2024 Team Status: Inactive Member Role Status Dates Ambika Benson DO Primary Care Provider Active Elenita Lazar PA-C Attending Provider Active Team Status: Inactive Member Role Status Dates Ambika Benson DO Primary Care Provider Active Koki Basilio PA-C Attending Provider Active Team Status: Inactive Member Role Status Dates Ambika Benson DO Primary Care Provider, Attending Provider Active Team Status: Inactive Member Role Status Dates Jessica Parker DPM Attending Provider Active Quill Winder Relationship Specialty Start Date End Date Lisa Benson DO PCP - General Family Medicine 10/22/22 Quill Winder Relationship Specialty Start Date End Date Lisa Benson DO PCP - General Family Medicine 10/22/22 Quill Winder Relationship Specialty Start Date End Date Lisa Benson DO [address] [address] PCP - Humana 05/11/23 Lisa Benson, DO [address] [place] [address] PCP - General Family Medicine 06/17/23 Quill Winder Relationship Specialty Start Date End Date Lisa Benson, DO [address] [place] [address] PCP - Humana 05/11/23 Lisa Benson, DO [address] [place] [address] PCP - General Family Medicine 06/17/23 Quill Winder Relationship Specialty Start Date End Date Lisa Benson, DO [address] [place] [address] PCP - Humana 05/11/23 Lisa Benson, DO [address] [place] [address] PCP - General Family Medicine 06/17/23 Team Status: Inactive Member Role [...] December 08, 2023 End: December 08, 2023 Willie Banks APRN Emergency Provider Active Start: December 08, 2023 End: December 08, 2023 Team Status: Inactive Member Role Status Dates Ambika Ceci DO Kelley Primary Care Provider Active Start: December 15, 2023 End: December 15, 2023 Carolina Araya [facility] Emergency Provider Active Start: December 15, 2023 [...] End: December 29, 2023 Soto Simmons , DO Emergency Provider [...] January 10, 2024 End: January 11, 2024 Quill Winder Relationship Specialty Start Date End Date Lisa Benson DO [address] [place] [address] PCP - Humana 08/09/18 Lisa Benson DO [address] [place] [address] PCP - General Family Medicine 06/17/23 Lisa Benson DO [address] [place] [address] PCP - Devoted 07/10/23 Quill Winder Relationship Specialty Start Date End Date Lisa Benson DO [address] [place] [address] PCP - Humana 08/09/18 Lisa Benson, DO [address] [place] [address] PCP - General Family Medicine 06/17/23 Lisa Benson DO [address] [place] [address] PCP - Devoted 07/10/23 Quill Winder Relationship Specialty Start Date End Date Lisa Benson DO [address] [place] [address] PCP - Humana 08/09/18 Lisa Benson DO [address] [place] [address] PCP - General Family Medicine 06/17/23 Lisa Benson DO [address] [place] [address] PCP - Devoted 07/10/23 Quill Winder Relationship Specialty Start Date End Date Lisa Benson DO [address] [place] [address] PCP - Humana 08/09/18 Lisa Benson DO [address] [place] [address] PCP - General Family Medicine 06/17/23 Lisa Benson, DO [address] [place] [address] PCP - Devoted 07/10/23 Leni Serrano LPN Licensed Practical Nurse Family Medicine 03/01/24 Quill Winder Relationship Specialty Start Date End Date Lisa Benson Jr. DO [address] [place] [address] PCP - General Family Medicine 07/10/11 Quill Winder Relationship Specialty Start Date End Date Lisa Benson DO [address] [place] [address] PCP - Humana 08/09/18 Lisa Benson, [address] [place] [address] PCP - General Family Medicine 06/17/23 Lisa Benson DO [address] [place] [address] PCP - Devoted 07/10/23 05/10/24 Leni Serrano LPN Licensed Practical Nurse Family Medicine 03/01/24 Quill Winder Relationship Specialty Start Date End Date Lisa Benson, DO [address] [place] [address] PCP - Humana 08/09/18 Lisa Benson, DO [address] [place] [address] PCP - General Family Medicine 06/17/23 Lisa Benson, [address] [place] [address] PCP - Devoted 07/10/23 05/10/24 Leni Serrano LPN Licensed Practical Nurse Family Medicine 03/01/24 Quill Winder Relationship Specialty Start Date End Date Lisa Benson DO [address] [place] [address] PCP - Humana 08/09/18 Lisa Benson DO [address] [place] [address] PCP - General Family Medicine 06/17/23 Lisa Benson DO [address] [place] [address] PCP - Devoted 07/10/23 05/10/24 Leni Serrano LPN Licensed Practical Nurse Family Medicine 03/01/24 Quill Winder Relationship Specialty Start Date End Date Lisa Benson DO [address] [place] [address] PCP - Humana 08/09/18 Lisa Benson DO [address] [place] [address] PCP - General Family Medicine 06/17/23 Lisa Benson DO [address] [place] [address] PCP - Devoted 07/10/23 05/10/24 Leni Serrano LPN Licensed Practical Nurse Family Medicine 03/01/24 Quill Winder Relationship Specialty Start Date End Date Lisa Benson, DO [address] [place] [address] PCP - Humana 08/09/18 Lisa Benson, DO [address] [place] [address] PCP - General Family Medicine 06/17/23 Lisa Benson, DO [address] [place] [address] PCP - Devoted 07/10/23 05/10/24 Leni Serrano LPN Licensed Practical Nurse [facility] Medicine 03/01/24 Quill Winder Relationship Specialty Start Date End Date Lisa Benson DO [address] [place] [address] PCP - Humana 08/09/18 Lisa Benson, DO [address] [place] [address] PCP - General Family Medicine 06/17/23 Lisa Benson DO [address] [place] [address] PCP - Devoted 07/10/23 Quill Winder Relationship Specialty Start Date End Date Lisa Benson DO [address] [place] [address] PCP - Humana 08/09/18 Lisa Benson, DO [address] [place] [address] PCP - General Family Medicine 06/17/23 Lisa Benson, DO [address] [place] [address] PCP - Devoted 07/10/23 Quill Winder Relationship Specialty Start Date End Date Lisa Benson, DO [address] [place] [address] PCP - Humana 08/09/18 Lisa Benson, DO [address] [place] [address] PCP - General Family Medicine 06/17/23 Lisa Benson DO [address] [place] [address] PCP - Devoted 07/10/23 Quill Winder Relationship Specialty Start Date End Date Lisa Benson DO [address] [place] [address] PCP - Humana 08/09/18 Lisa Benson, DO [address] [place] [address] PCP - General Family Medicine 06/17/23 Lisa Benson DO [address] [place] [address] PCP - Devoted 07/10/23 Quill Winder Relationship Specialty Start Date End Date Lisa Benson DO [address] [place] [address] PCP - Humana 08/09/18 Lisa Benson DO [address] [place] [address] PCP - General Family Medicine 06/17/23 Lisa Benson DO [address] [place] [address] PCP - Devoted 07/10/23 05/10/24 Leni Serrano LPN Licensed Practical Nurse Family Medicine 03/01/24 Quill Winder Relationship Specialty Start Date End Date Lisa Benson DO [address] [place] [address] PCP - Humana 08/09/18 Lisa Benson DO [address] [place] [address] PCP - General Family Medicine 06/17/23 Lisa Benson, [address] [place] [address] PCP - Devoted 07/10/23 05/10/24 Leni Serrano LPN Licensed Practical Nurse Family Medicine 03/01/24 Quill Winder Relationship Specialty Start Date End Date Lisa Benson DO [address] [place] [address] PCP - Humana 08/09/18 Lisa Benson DO [address] [place] [address] PCP - General Family Medicine 06/17/23 Leni Serrano LPN Licensed Practical Nurse Family Medicine 03/01/24 Quill Winder Relationship Specialty Start Date End Date Lisa Benson DO [address] [place] [address] PCP - Humana 08/09/18 Lisa Benson, DO [address] [place] [address] PCP - General Family Medicine 06/17/23 Leni Serrano LPN Licensed Practical Nurse Family Medicine 03/01/24 Quill Winder Relationship Specialty Start Date End Date Lisa Benson Jr., DO [address] [place] [address] PCP - General Family Medicine 06/12/24 Quill Winder Relationship Specialty Start Date End Date Lisa Benson Jr., [address] [facility] [address] [facility] [address] [place] [address] PCP - General Family Medicine 06/12/24 Quill Winder Relationship Specialty Start Date End Date Lisa Benson Jr., DO [address] [place] [address] PCP - General Family Medicine 06/12/24 Quill Winder Relationship Specialty Start Date End Date Lisa Benson Jr., DO [address] [facility] [address] [facility] [address] [place] [address] PCP - General Family Medicine 06/12/24 Goals (unrecognized section and content) Goals may be documented in a n alternate section (unrecognized sect ion and content) No Status Records FoundNo Status Records FoundNo Status Records FoundNo Status Records FoundNo Status Records FoundNo Status Records Found INFORMATION SOURCE (unrecogn ized section and content) DATE CREATED AUTHOR 01/13/2023 [facility] DATE CREATED AUTHOR AUTHOR'S ORGANIZ ATION 03/27/2024 [facility] DATE CREATED AUTHOR AUTHOR'S ORGANIZ ATION 05/02/2024 [facility] DATE CREATED AUTHOR AUTHOR'S ORGANIZ ATION 06/20/2024 [facility] DATE CREATED AUTHOR AUTHOR'S ORGANIZ ATION 06/23/2024 [facility] DATE CREATED AUTHOR AUTHOR'S ORGANIZ ATION 07/03/2024 [facility] Reason for Visit (unrecogniz ed section and [...] landed on his head. Reason Comments Fall Reason Onset Date Comments Consult 06/13/2024 Afib/rvr Reason Onset Date Comments afib rvr 06/14/2024 Reason Comments Follow-up hosp f/u [facility]- discha rged 06/24- saw [facility] in ED- labs 06/24- vas venous 06/20- sched w pt Source Comments (unrecognize d section and content) In the event this informatio n is protected by the Federal Confidentiality of Alcohol and Drug Abuse Patient Records regulations: The Federal rules restrict any use of the information to criminally investigate or prosecute any alcohol or drug abuse patient.[facility] FOR RECORDS PERTAINING TO PATIENTS WHO ARE [...] BE BASED ON THE PRIMARY CLINICAL RECORDS. [facility] [employer] [facility]. provides no warranty or guarantee of the accuracy or completeness of information in this document.
[2024-07-03 23:12] LABS: Basophils Absolute Auto 0.2 10^3/uL (0.0-0.1); Basophils Percent Auto 1.1 % (0.2-2.0); Eosinophils Absolute Auto 0.8 10^3/uL (0.0-0.7); Eosinophils Percent Auto 6.1 % (0.9-7.0); Hematocrit 28.1 % (42.0-54.0); Hemoglobin 8.8 g/dL (14.0-18.0); Immature Granulocytes Abs Auto 0.04 10^3/uL (0.00-0.03); Immature Granulocytes Pct Auto 0.3 % (0.0-0.5); Lymphocytes Absolute Auto 4.7 10^3/uL (1.2-3.8); Lymphocytes Percent Auto 35.5 % (20.5-60.0); Mean Corpuscular HGB Conc 31.3 g/dL (29.9-35.2); Mean Corpuscular Hemoglobin 32.1 pg (25.9-34.0); Mean Corpuscular Volume 102.6 fL (80.0-94.0); Mean Platelet Volume 9.2 fL (9.5-13.5); Monocytes Absolute Auto 0.9 10^3/uL (0.3-0.8); Neutrophils Absolute Auto 6.6 10^3/uL (1.4-6.5); Platelet Count 569 10^3/uL (150-450); Red Blood Count 2.74 10^6/uL (4.70-6.10); Red Cell Distribution Width 16.6 % (11.0-15.0); White Blood Count 13.2 10^3/uL (4.0-11.0)
[2024-07-03 23:47] LABS: Anion Gap 8.7; Carbon Dioxide 29.3 mmol/L (21.0-32.0); Chloride 103 mmol/L (98-107); Glucose 98 mg/dL (74-106); Sodium 137 mmol/L (136-145)
[2024-07-03 23:48] LABS: Alanine Aminotransferase 23 U/L (16-63); Albumin Globulin Ratio 0.4; Albumin Level 1.9 g/dL (3.4-5.0); Alkaline Phosphatase 171 U/L (46-116); Aspartate Amino Transferase 23 U/L (15-37); BUN Creatinine Ratio 29.8; Bilirubin Total 0.6 mg/dL (0.2-1.0); Calcium 9.4 mg/dL (8.5-10.1); Estimated GFR (African America >60 (>=60 mL/min/1.73m^2); Estimated GFR (Non-African Ame >60 (>=60 mL/min/1.73m^2); Total Protein 6.9 g/dL (6.4-8.2)
== END 2024-07-03 22:43 | disposition home or self-care (01) ==
LOC: LAB 22:42
PROVIDERS: Family Provider Family Medicine; PCP Family Medicine; Visit Provider Family Medicine
DX: R07.9 Chest pain, unspecified (principal); I50.31 Acute diastolic (congestive) heart failure
CPT/HCPCS: 36415; 80053; 83735; 83880; 85025